=== PATIENT | female | born 1950 | race Caucasian/White ===

== ENCOUNTER 2021-02-18 16:06 | Inpatient (IN) | payer MEDICARE, SELFPAY ==
[2021-02-18] VITALS (7 sets, daily range): BP systolic 131–157; BP diastolic 58–90; PULSE 85–112; RESP 16–21; TEMP 35.6–36.8; O2SAT 97–100
--- NOTE | 2021-02-18 16:27 | ED.GENADUL_ITS ---
Discharge Plan Disposition Patient Disposition: [facility] INPATIENT Condition: Serious Discharge Details Clinical Impression: Renal failure, Acute UTI, Anemia Admit Date/Time: 02/18/21 19:04 Admit Provider: Jean Carlos Hancock Attending Provider: Jean Carlos Hancock Primary Care Provider: Unknown,Unknown ED Provider: Matthew Flor Medical Decision Making This is a 70-year-old female who presents concern for UTI, generalized weakness and dehydration. Per her daughter, she has had a significant weight loss over the past 6 months and declining steadily, cognitive decline over the past 10 days. Patient is a poor and vague historian and seems to downplay her symptoms. She presents with a pulse of 112 otherwise hemodynamically stable. Will obtain EKG, IV access, IV fluids, CBC, CMP, urinalysis and reassess. Initial laboratory values reveal a leukocytosis of 26.8 hemoglobin 7.7 hematocrit 26.9 platelet count 1115. Will initiate a septic work-up, also plan to do a rectal exam. Sodium 131 potassium 5.3. Patient is receiving 1 L IV fluid and plan to also p rovide a second liter as well. Anion gap of 17.5, creatinine 7.6 with a GFR of 5.29. Patient is able to make urine. Glucose of 129, lipase 135, TSH 3.57. Lactate of 1.4. Urine reveals large blood, large leuk esterase, greater than 50 red and white cells. Many bacteria. Urine culture and blood culture pending. Will give 1 g IV Rocephin Covid negative Unfortunately we have no baseline as to her laboratory values. Given her decline in cognition, weight loss, will obtain CT imaging of head, chest and abdomen, pelvis without contrast Dr. Hancock happened to be walking through the ER and I discussed the case with him prior to the evaluation being completed. He was agreeable to admission, saw the patient in the ER, and performed a rectal exam. He will write holding orders I did contact the patient's daughter on the phone to make her aware of her mother status, work-up thus far, and plan for admission. Both patient and daughter are comfortable with admission. After the patient was admitted, I received a call from virtual radiology regarding the CT imaging of her chest, abdomen, pelvis. Concern for possible neoplasm at the bladder level with associated obstructive change. Left lower lobe soft tissue mass with apparent loculated effusion or concern for primary lung neoplasm. These findings were discussed with Dr. Hancock. Imaging Data Radiologic Study: Attestation: I personally reviewed and interpreted this imaging study as follows: Imaging: X-Ray Radiologic Study #2: Attestation: I personally reviewed and interpreted this imaging study as follows: Imaging: CT Scan Radiologist's impression: PROCEDURE INFORMATION: Exam: CT Chest Without Contrast; Diagnostic Exam date and time: 02/18/2021 6:23 PM Age: 70 years old Clinical indication: Other: 50 lbs weight loss; Patient HX: UTI and weight loss TECHNIQUE: Imaging protocol: Diagnostic computed tomography of the chest without contrast. COMPARISON: No relevant prior studies available. FINDINGS: Lungs: There is a left lower lobe soft tissue mass seen medially measuring up to 5.2 cm. There is an associated left lung base pleural effusion with probable loculation. Mild COPD. Pleural spaces: See Lungs finding. Heart: Unremarkable. No cardiomegaly. No pericardial effusion. Aorta: Unremarkable. No aortic aneurysm. Other arteries: Mild atherosclerotic change noted in the vasculature. Lymph nodes: There appears to be mild left hilar adenopathy, not ideally delineated with unenhanced technique. Mild mediastinal adenopathy. Bones/joints: Unremarkable. No acute fracture. Soft tissues: Unremarkable. IMPRESSION: Left lower lobe soft tissue mass with apparent loculated effusion of concern for primary lung neoplasm. PROCEDURE INFORMATION: MITESH HORTA Preliminary Radiology Report SWING RIDE OPERATOR (QA) DISCREPANCY? If there is a discrepancy between the preliminary and final interpretation, please notify [employer] via [email or web address]. If you do not have access to our QA portal, call our QA team at [phone] CONFIDENTIALITY STATEMENT This report is intended only for the use of the referring physician, and only in accordance with law, If you received this in error, call [phone] Page 2 of 2 Exam: CT Abdomen And Pelvis Without Contrast Exam date and time: 02/18/2021 6:23 PM Age: 70 years old Clinical indication: Other: 50 lbs weight loss; Patient HX: UTI and weight loss TECHNIQUE: Imaging protocol: Computed tomography of the abdomen and pelvis without contrast. Radiation optimization: All CT scans at this facility use at least one of these dose optimization techniques: automated exposure control; mA and/or kV adjustment per patient size (includes targeted exams where dose is matched to clinical indication); or iterative reconstruction. COMPARISON: No relevant prior studies available. FINDINGS: Liver: Normal. No mass. Gallbladder and bile ducts: Gallbladder absent. Pancreas: Normal. No ductal dilation. Spleen: Normal. No splenomegaly. Adrenal glands: Normal. No mass. Kidneys and ureters: There is moderate right and moderate to severe left hydronephrosis and hydroureter. There is left periureteral edema and ureteral wall thickening. No obstructing calculi are seen. Stomach and bowel: Unremarkable. No obstruction. No mucosal thickening. Appendix: No evidence of appendicitis. Intraperitoneal space: Unremarkable. No free air. No significant fluid collection. Vasculature: There is moderate to severe atherosclerotic change present in the vasculature. Lymph nodes: Unremarkable. No enlarged lymph nodes. Urinary bladder: The bladder is decompressed however there are areas of irregular wall thickening particularly at the right bladder dome and right trigone. Reproductive: Unremarkable as visualized. Bones/joints: Unremarkable. No acute fracture. Soft tissues: Unremarkable. IMPRESSION: Bilateral obstructive nephroureteral changes, left worse than right with acute edema change involving the left collecting system. Concern for possible neoplasm at the bladder level with associated obstructive change. I discussed case findings with Matthew Flor 02/18/2021 9:01 PM EDT Lab Data Lab results reviewed: Yes I reviewed the patient's lab results. Labs: 02/18/21 18:30 Blood Blood Culture - Pending 02/18/21 18:20 Blood Blood Culture - Pending 02/18/21 16:45 Urine - Reflex from Ua Urine Culture - Pending Laboratory Tests Range/Units 02/18/21 02/18/21 02/18/21 16:45 17:12 17:12 WBC (4.4-10.8) 10^3/uL 26.86 H* RBC (3.93-5.22) 10^6/uL 4.02 Hgb (11.2-15.7) g/dL 7.7 L Hct (36.0-46.0) % 26.9 L MCV (80-95) fL 66.9 L MCH (27.0-33.0) pg 19.2 L MCHC (32.0-36.0) % 28.6 L RDW (11.7-14.6) % 20.8 H Plt Count (130-400) 10^3/uL 1115 H* MPV (8.0-11.0) fL 8.6 Reticulocyte % (Auto) (0.5-2.4) % Immature Gran % 1.1 Neutrophils % 83.0 Lymphocytes % 7.4 Monocytes % 6.1 Eosinophils % 2.1 Basophils % 0.3 Nucleated RBC % % 0 Absolute Neutrophils (1.2-6.7) 10^3/uL 22.29 H Absolute Lymphocytes (1.2-3.4) 10^3/uL 1.99 Absolute Monocytes (0.1-0.8) 10^3/uL 1.64 H Absolute Eosinophils (0.0-0.7) 10^3/uL 0.56 Absolute Basophils (0.0-0.2) 10^3/uL 0.08 RBC Morphology See Below Hypochromasia 2+ Anisocytosis 2+ Microcytosis 3+ VBG Lactate (0.6-1.4) mmol/L Sodium (136-145) mmol/L 131 L Potassium (3.5-5.1) mmol/L 5.3 H Chloride (98-107) mmol/L 100 Carbon Dioxide (21.0-32.0) mmol/L 13.5 L Anion Gap (3-11) mmol/L 17.5 H BUN (7-18) mg/dL 134 H* Creatinine (0.55-1.02) mg/dL 7.6 H* Estimated GFR/1.73 m2 (mL/min/1.73m2) 5.29 Glucose (74-106) mg/dL 129 H Calcium (8.5-10.1) mg/dL 9.2 Iron (50-170) ug/dL TIBC (250-450) ug/dL Transferrin % Sat (15-50) % Ferritin (8-252) ng/mL Total Bilirubin (0.2-1.0) mg/dL 0.2 AST (15-37) U/L 18 ALT (14-59) U/L 27 Alkaline Phosphatase (46-116) U/L 105 Total Protein (6.4-8.2) g/dL 10.5 H Albumin (3.4-5.0) g/dL 2.3 L Lipase (73-393) U/L 135 TSH (0.36-3.74) uIU/mL Urine Color (Yellow) Brown Urine Clarity (Clear) Cloudy Urine pH (5-8) 7.0 Ur Specific [place] (1.005-1.025) 1.025 Urine Protein (Negative) mg/dL >=300 H Urine Ketones (Negative) mg/dL Negative Urine Blood (Negative) Large H Urine Nitrite (Negative) Negative Urine Bilirubin (Negative) Negative Urine Urobilinogen (Up TO 0.2) EU/dL 0.2 Ur Leukocyte Esterase (Negative) Large H Urine RBC (0-2) HPF >50 H Urine WBC (0-5) HPF >50 H Ur Epithelial Cells Not Applicable Urine Crystals Not Applicable Urine Bacteria (Negative) HPF Many Urine Mucus Not Applicable Ur Culture Indicated? Yes Urine Glucose (Negative) mg/dL Negative COVID-19 Source SARS-CoV-2 (PCR) (Negative) Range/Units 02/18/21 02/18/21 02/18/21 17:12 17:12 17:12 WBC (4.4-10.8) 10^3/uL RBC (3.93-5.22) 10^6/uL Hgb (11.2-15.7) g/dL Hct (36.0-46.0) % MCV (80-95) fL MCH (27.0-33.0) pg MCHC (32.0-36.0) % RDW (11.7-14.6) % Plt Count (130-400) 10^3/uL MPV (8.0-11.0) fL Reticulocyte % (Auto) (0.5-2.4) % Immature Gran % Neutrophils % Lymphocytes % Monocytes % Eosinophils % Basophils % Nucleated RBC % % Absolute Neutrophils (1.2-6.7) 10^3/uL Absolute Lymphocytes (1.2-3.4) 10^3/uL Absolute Monocytes (0.1-0.8) 10^3/uL Absolute Eosinophils (0.0-0.7) 10^3/uL Absolute Basophils (0.0-0.2) 10^3/uL RBC Morphology Hypochromasia Anisocytosis Microcytosis VBG Lactate (0.6-1.4) mmol/L Sodium (136-145) mmol/L Potassium (3.5-5.1) mmol/L Chloride (98-107) mmol/L Carbon Dioxide (21.0-32.0) mmol/L Anion Gap (3-11) mmol/L BUN (7-18) mg/dL Creatinine (0.55-1.02) mg/dL Estimated GFR/1.73 m2 (mL/min/1.73m2) Glucose (74-106) mg/dL Calcium (8.5-10.1) mg/dL Iron (50-170) ug/dL 27 L TIBC (250-450) ug/dL 232 L Transferrin % Sat (15-50) % 12 L Ferritin (8-252) ng/mL 855 H Total Bilirubin (0.2-1.0) mg/dL AST (15-37) U/L ALT (14-59) U/L Alkaline Phosphatase (46-116) U/L Total Protein (6.4-8.2) g/dL Albumin (3.4-5.0) g/dL Lipase (73-393) U/L TSH (0.36-3.74) uIU/mL 3.57 Urine Color (Yellow) Urine Clarity (Clear) Urine pH (5-8) Ur Specific [place] (1.005-1.025) Urine Protein (Negative) mg/dL Urine Ketones (Negative) mg/dL Urine Blood (Negative) Urine Nitrite (Negative) Urine Bilirubin (Negative) Urine Urobilinogen (Up TO 0.2) EU/dL Ur Leukocyte Esterase (Negative) Urine RBC (0-2) HPF Urine WBC (0-5) HPF Ur Epithelial Cells Urine Crystals Urine Bacteria (Negative) HPF Urine Mucus Ur Culture Indicated? Urine Glucose (Negative) mg/dL COVID-19 Source SARS-CoV-2 (PCR) (Negative) Range/Units 02/18/21 02/18/21 02/18/21 17:12 18:00 18:20 WBC (4.4-10.8) 10^3/uL RBC (3.93-5.22) 10^6/uL Hgb (11.2-15.7) g/dL Hct (36.0-46.0) % MCV (80-95) fL MCH (27.0-33.0) pg MCHC (32.0-36.0) % RDW (11.7-14.6) % Plt Count (130-400) 10^3/uL MPV (8.0-11.0) fL Reticulocyte % (Auto) (0.5-2.4) % 1.1 Immature Gran % Neutrophils % Lymphocytes % Monocytes % Eosinophils % Basophils % Nucleated RBC % % Absolute Neutrophils (1.2-6.7) 10^3/uL Absolute Lymphocytes (1.2-3.4) 10^3/uL Absolute Monocytes (0.1-0.8) 10^3/uL Absolute Eosinophils (0.0-0.7) 10^3/uL Absolute Basophils (0.0-0.2) 10^3/uL RBC Morphology Hypochromasia Anisocytosis Microcytosis VBG Lactate (0.6-1.4) mmol/L 1.4 Sodium (136-145) mmol/L Potassium (3.5-5.1) mmol/L Chloride (98-107) mmol/L Carbon Dioxide (21.0-32.0) mmol/L Anion Gap (3-11) mmol/L BUN (7-18) mg/dL Creatinine (0.55-1.02) mg/dL Estimated GFR/1.73 m2 (mL/min/1.73m2) Glucose (74-106) mg/dL Calcium (8.5-10.1) mg/dL Iron (50-170) ug/dL TIBC (250-450) ug/dL Transferrin % Sat (15-50) % Ferritin (8-252) ng/mL Total Bilirubin (0.2-1.0) mg/dL AST (15-37) U/L ALT (14-59) U/L Alkaline Phosphatase (46-116) U/L Total Protein (6.4-8.2) g/dL Albumin (3.4-5.0) g/dL Lipase (73-393) U/L TSH (0.36-3.74) uIU/mL Urine Color (Yellow) Urine Clarity (Clear) Urine pH (5-8) Ur Specific [place] (1.005-1.025) Urine Protein (Negative) mg/dL Urine Ketones (Negative) mg/dL Urine Blood (Negative) Urine Nitrite (Negative) Urine Bilirubin (Negative) Urine Urobilinogen (Up TO 0.2) EU/dL Ur Leukocyte Esterase (Negative) Urine RBC (0-2) HPF Urine WBC (0-5) HPF Ur Epithelial Cells Urine Crystals Urine Bacteria (Negative) HPF Urine Mucus Ur Culture Indicated? Urine Glucose (Negative) mg/dL COVID-19 Source Nasal/Nares SARS-CoV-2 (PCR) (Negative) Negative ECG Data Attestation: I personally reviewed and interpreted this ECG (s) as follows: Interpretation: Please see official report by Dr. Johnson. Sinus rhythm, ventricular of 93. No STEMI. HPI General Mode of arrival: ambulatory . Date/Time Provider Initiated Documentation: 02/18/21 16:10 . Limitations to Documentation: no limitations . Information obtained by: patient and family . HPI Narrative: This is a 70-year-old female, presenting to the ER today complaining of generalized weakness, concern of UTI, feeling dehydrated. Unfortunately she is a very vague and poor historian, I was able to obtain HPI from the patient as well as her daughter Daisha at the phone number [phone]. Patient does not have a primary care provider and does not seek medical attention on a regular basis. She does not know when the last time she saw a provider was. After speaking with Daisha, it appears as though the patient has had a 40-50 pound weight loss over the past 6 months, she lives at home by herself, she has been fully vaccinated. She takes [id number] natural medications but is not prescribed any medications. For at least 2-3 months she has had increased fatigue, decreased appetite, not really taking oral intake, and Daisha believes that she has had 10 days of declining cognition. Patient denies any headache, visual changes, neck pain, chest pain, shortness of breath, abdominal pain, nausea, vomiting, back pain, black tarry stools or bright red blood in her stools. Patient states that she did take [id number] medication for her potential UTI but she continues to have symptoms. Related Data Allergies Allergy/AdvReac Type Severity Reaction Status Date / Time No Known Allergies Allergy Unverified 02/18/21 16:25 General Stated Complaint: Urinary GOOD: 3 Review of Systems Constitutional Constitutional: Reports fatigue, Denies fever(s) and Denies headache(s) Eyes Eyes: Denies change in vision ENT Ears, Nose, Mouth, and Throat: Denies headache(s) and Denies neck pain Cardiovascular Cardiovascular: Denies chest pain and Denies dyspnea Respiratory Respiratory: Denies cough and Denies dyspnea Gastrointestinal Gastrointestinal: Denies abdominal pain, Denies nausea and Denies vomiting Genitourinary Genitourinary: Reports dysuria Musculoskeletal Musculoskeletal: Denies back pain and Denies neck pain Integumentary/Breasts Skin/Breast: Denies rash Neurologic Neurologic: Denies headache(s) and Reports weakness (Generalized) Endocrine Endocrine: Reports fatigue Hematologic/Lymphatic Hematologic/Lymphatic: Denies easy bleeding and Denies easy bruising [facility] Social History Smoking/Tobacco Use Status: Former Tobacco Use Smoking risk assessment performed?: Yes Alcohol Intake: never Substance use type: does not use Do you feel safe at home: Yes Exam Const General: cooperative, comfortable and no acute distress Orientation: alert, awake and oriented x3 HENMT Head: normal to inspection, normocephalic and atraumatic Face and sinus: normal facial exam Mouth: moist mucous membranes abnormal (Dry) Eyes General: appearance normal, both eyes and all related structures Conjunctivae: conjunctivae normal Neck Neck: normal visual inspection, full ROM, no meningeal signs, trachea midline, supple and nontender Resp Effort & Inspection: normal respiratory effort and able to speak in complete sentences Auscultation: clear to auscultation bilaterally Cardio Rate: regular rate Rhythm: regular rhythm GI Inspection: normal to inspection Palpation: soft, not firm, no guarding, no pulsatile masses and nontender Auscultation: normal bowel sounds Back/Spine/Pelvis Back: no CVA tenderness and No back tenderness Skin General skin exam: no rashes or lesions noted Neuro General: patient alert, patient awake, moves all extremities and no focal motor deficits Cognition: normal cognition Speech: speech normal Motor: muscle tone normal throughout Sensory Exam: no sensory deficits noted Extrem General: normal to inspection, full ROM, capillary refill normal, no pedal edema and no calf tenderness Psych Appearance: grossly normal Mental Status: mental status grossly normal Course Vital Signs Vital signs: Vital Signs Temperature 36.8 C 02/18/21 16:19 Pulse 112 H 02/18/21 16:19 Respiratory Rate 18 02/18/21 16:19 Blood Pressure 133/90 02/18/21 16:19 Pulse Oximetry 99 02/18/21 16:19 Temperature 36.8 C 02/18/21 16:19 Temperature Source Temporal Artery Scan 02/18/21 16:19 Pulse 112 H 02/18/21 16:19 Respiratory Rate 18 02/18/21 16:19 Blood Pressure 133/90 02/18/21 16:19 Blood Pressure Position Sitting 02/18/21 16:19 Pulse Oximetry 99 02/18/21 16:19 Oxygen Delivery Method Room Air 02/18/21 16:19 Oxygen Flow Rate 0 02/18/21 16:19 Pain Level 0 02/18/21 16:19 Critical Care Time Critical Care Time Critical Care Time: Yes Total Critical Care Time: 35 Attestation: Upon my evaluation, this patient had a high probability of clinically significant, life-threatening deterioration due to their current medical conditions, which required my direct attention, intervention, and personal management. I have personally provided greater than 30 minutes of critical care time exclusive of the time spend on separately billable proced ures. Time includes obtaining a history, examining the patient, pulse oximetry, review of laboratory data, radiology results, discussion with consultants, arranging urgent treatment with development of a management plan, evaluation of patient's response to treatment, and monitoring for potential decompensation. Interventions were performed as documented above.
--- NOTE | 2021-02-18 16:45 | RT.EKG_ITS ---
APPROVED REPORT Exam: Resting ECG Reason for Exam: tachy Patient Location: E HR:93 bpm ECG Measurements Heart Rate 93 AXIS NE 128 P 61 QRSd 75 QRS 62 QT 341 T 55 QTc 424 Conclusion Sinus rhythm...normal P axis, V-rate 60- 99. Sinus. No STEMI. I have reviewed and interpreted ECG and agree with software generated interpretation.
[2021-02-18 16:53] LABS: Bilirubin Negative (Negative); Blood Large (Negative); Clarity Cloudy (Clear); Glucose Negative (Negative); Ketones Negative (Negative); Leukocyte Esterase Large (Negative); Nitrite Negative (Negative); Specific Gravity 1.025 (1.005-1.025); Urobilinogen 0.2 EU/dL (Up TO 0.2)
[2021-02-18] MEDS: Normal Saline 1,000 ML 1000 ML IV ×2 (17:03→19:13)
[2021-02-18 17:11] LABS: Bacteria Many HPF (Negative); C & S Indicated? Yes; RBC >50 HPF (0-2); WBC >50 HPF (0-5)
[2021-02-18 17:23] LABS: Abs Immature Grans 0.29 10^3/uL (0.0-0.06); Absolute Monocyte Count 1.64 10^3/uL (0.1-0.8); Basophils % 0.3; Eosinophils % 2.1; HCT 26.9 % (36.0-46.0); HGB 7.7 g/dL (11.2-15.7); Immature Grans % 1.1; Lymphocytes % 7.4; MCH 19.2 pg (27.0-33.0); MCHC 28.6 % (32.0-36.0); MCV 66.9 fL (80-95); MPV 8.6 fL (8.0-11.0); Monocytes % 6.1; Nucleated RBC 0 %; RBC 4.02 10^6/uL (3.93-5.22); RDW 20.8 % (11.7-14.6); RDW-SD 47.9 fL
[2021-02-18 17:28] LABS: Absolute Basophil Count 0.08 10^3/uL (0.0-0.2); Absolute Eosinophil Count 0.56 10^3/uL (0.0-0.7); Absolute Lymphocyte Count 1.99 10^3/uL (1.2-3.4); Absolute Neutrophil Count 22.29 10^3/uL (1.2-6.7); WBC 26.86 10^3/uL (4.4-10.8)
--- NOTE | 2021-02-18 17:30 | DI.CT_ITS ---
Exam(s) CT HEAD WO EXAM: CT HEAD WO CLINICAL HISTORY: ams. TECHNIQUE: Imaging Protocol: Axial computed tomography images with coronal and sagittal reformatted images were created and reviewed COMPARISON: No exams were available for comparison FINDINGS: There are no skull fractures nor fluid in the visualized paranasal sinuses. There is no evidence of intracranial hemorrhage, mass effect, or shift of midline structures. There are no extra-axial fluid collections. The ventricles are not enlarged or shifted and there is no blo od within the ventricular system nor within the basal cisterns. IMPRESSION: No acute intracranial findings on this noninfused CT scan of the brain. RADIATION DOSE DELIVERED: 607.37mGy.cm Total DLP DATA REPOSITORY: All CT scans at this facility are submitted to the National Radiology Data Registry (NRDR) Dose Index Registry (DIR) with the [employer] (ACR). RADIATION OPTIMIZATION: All CT scans at this facility use at least one of these dose optimization te chniques: automated exposure control; mA and/or kV adjustment per patient size (includes targeted exa ms where dose is matched to clinical indication); or iterative reconstruction.
[2021-02-18 17:43] LABS: ALT 27 U/L (14-59); AST 18 U/L (15-37); Albumin 2.3 g/dL (3.4-5.0); Alkaline Phosphatase 105 U/L (46-116); Anion Gap 17.5 mmol/L (3-11); BUN 134 mg/dL (7-18); Bilirubin, Total 0.2 mg/dL (0.2-1.0); CO2 13.5 mmol/L (21.0-32.0); Calcium 9.2 mg/dL (8.5-10.1); Chloride 100 mmol/L (98-107); Estimated GFR 5.29 (mL/min/1.73m2); Glucose 129 mg/dL (74-106); Lipase 135 U/L (73-393); Potassium 5.3 mmol/L (3.5-5.1); Sodium 131 mmol/L (136-145); Total Protein 10.5 g/dL (6.4-8.2)
[2021-02-18 17:44] LABS: CREATININE 7.6 mg/dL (0.55-1.02)
[2021-02-18 17:54] LABS: Anisocytosis 2+; Diff Comment Agrees w/ Instrument; Hypochromasia 2+; Microcytosis 3+; Platelet Count 1115 10^3/uL (130-400)
[2021-02-18 18:03] LABS: Source Nasal/Nares
--- NOTE | 2021-02-18 18:15 | DI.CT_ITS ---
Exam(s) CT CHEST/ABD/PEL WO EXAM: CT CHEST/ABD/PEL WO CLINICAL HISTORY: 50 lb weight loss. TECHNIQUE: Imaging Protocol: Axial computed tomography images with coronal and sagittal reformatted images were created and reviewed CONTRAST MATERIAL: Intravenous: none Oral: None COMPARISON: No exams were available for comparison FINDINGS: CHEST: LUNGS: There is a large neoplastic appearing mass in the left lower lobe measuring approximately 6 by 8 cm and there is an ipsilateral moderate size pleural effusion. The opposite-right lung is clear a nd there is no pleural effusion on the right side. MEDIASTINUM: Left hilar adenopathy contiguous with the left lower lobe mass. There does not appear t o be subcarinal adenopathy. No adenopathy in the anterior mediastinal fat. The opposite-right hilum appears unremarkable on this noninfused study. Visualized thyroid unremarkable. CARDIAC: Heart size is normal. There is no pericardial effusion.Caliber of the thoracic aorta is wit hin normal limits. OSSEOUS: No significant osseous lesions.. ABDOMEN: There is no ascites. LIVER: There are no obvious focal hepatic lesions evident of this noninfused study. GALLBLADDER/BILIARY: Not seen and may be surgically absent. CBD is not dilated. PANCREAS: No evidence of obvious pancreatic mass nor dilatation of the pancreatic duct. SPLEEN: Spleen size upper normal. No obvious intrasplenic lesions ADRENALS: There are no significant adrenal masses. KIDNEYS: There is bilateral hydronephrosis-moderate size-severe. Also hydroureter. No calculi evide nt within the lower ureters. 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 In addition, there is some mucosal thickening in the mid left ureter which may also b e uroepithelial neoplasm. Similar finding not seen in the dilated opposite-right ureter.. No solid renal masses. No intrarenal calculi evident. ABDOMINAL AORTA: Abdominal aorta is not enlarged. LYMPH NODES: There is no retroperitoneal nor para-aortic adenopathy. ABDOMINAL WALL/GI: No evidence of significant anterior abdominal wall nor inguinal hernia. No evidence of bowel obstruction. PELVIS: LYMPH NODES: There is no intrapelvic nor inguinal adenopathy. GI: No evidence of appendicitis.Sigmoid diverticuli. No diverticulitis. URINARY BLADDER: Abnormal mural thickening consistent with probable multifocal neoplasm. REPRODUCTIVE: Age appropriate OSSEOUS: No significant osseous lesions. IMPRESSION: 1. There is a large left lower lobe mass as described above, highly suspicious for lung neoplasm. Th ere is associated pleural effusion subjacent to the mass which is partially loculated. 2. 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 There is also thickening at the mid left ureteral wall, possibly also uroepithelial neoplasm at this level. 3. No ascites evident. RADIATION DOSE DELIVERED: 1,137.96mGy.cm Total DLP DATA REPOSITORY: All CT scans at this facility are submitted to the National Radiology Data Registry (NRDR) Dose Index Registry (DIR) with the [employer] (ACR). RADIATION OPTIMIZATION: All CT scans at this facility use at least one of these dose optimization te chniques: automated exposure control; mA and/or kV adjustment per patient size (includes targeted exa ms where dose is matched to clinical indication); or iterative reconstruction.
[2021-02-18 18:16] LABS: TSH (W/Ref FT4) 3.57 uIU/mL (0.36-3.74)
--- NOTE | 2021-02-18 18:44 | W.PM.HP.N ---
Date of service: 02/18/21 Time of Service: 18:44 Assessment and Plan Assessment and plan (1) Renal failure: Status: Chronic Assessment and plan: Multiplicity of issues, not clear how much is acute or chronic. The decreased HCO3 suggests that the renal failure may be more chronic and the normal lactate would tend to preclude alternative etiology (such as sepsis, in light of leukocytosis). Would cautiously treat with IVF (no signs of volume overload at present) and trend renal function. The leukocytosis and pyuria, and associated symptoms, most c/w UTI and will continue empiric Rocephin pending cultures. Microcytic anemia, with presumably reactive thrombocytosis, points to iron deficiency. GI blood loss suspected, but urinary is another potential source. Will start with iron studies, check stools and trend out. There may also be an element of ACD if renal failure proves to be more chronic, though of course this would not be expected to produce the microcytosis. 1. BRITNI: IVF, trend, bladder scan, consider renal U/S 2. Anemia: iron studies, stool guiacs, trend 3. Pyuria/leukocytosis, probable UTI: Rocephin, await cultures History of Present Illness History of Present Illness Chief Complaint: weaskness, dysuria, weight loss Narrative: 70 female, no recent encounters with healthcare system -- daughter reports some cognitive decline over past 6 months along with reported 50 pound weight loss. Also some unspecified period of dysuria (patient states 2 months). Daughter brought patient to ER today for evaluation. In ER findings of note for white count 25K, Hct 26 with MCV 69, platelet 1115; Na 131, K 5.3, HCO3 13, BUN 134, Creat 7.6; urine >50 WBC/RBC (casts not reported due to packed field) and many bacteria; TSH 3.5, lactate 1.4. Patient has received 1L IVF and 1 g Rocephin. I was asked to evaluate for admission. Patient states she actually feels entirely well at present. Denies back pain, CP, abd pain or melena. Review of Systems All systems reviewed & are unremarkable except as noted in HPI and below PFSH Social History Smoking/Tobacco Use Status: Former Tobacco Use Smoking risk assessment performed?: Yes Alcohol Intake: never Substance use type: does not use Do you feel safe at home: Yes Meds Allergies and Home Medications Allergies Allergy/AdvReac Type Severity Reaction Status Date / Time No Known Allergies Allergy Unverified 02/18/21 16:25 Exam Narrative Exam Narrative: 134/58, 86, 36.8, 19, 100% RA. HEENT atraumatic; neck supple; lungs cl;ear; heart RRR w/o evident M/R/G (exam limited by ambient noise); neg CVAT; abdomen soft and NT w/o HSM; rectal no stool, glove heme neg; extremities w/o edema; neuro Ox3, knows President, moves all 4s Results Labs Result diagrams: 02/18/21 17:12 02/18/21 17:12 Labs: Laboratory Results - last 24 hr 02/18/21 02/18/21 02/18/21 16:45 17:12 17:12 WBC 26.86 H* RBC 4.02 Hgb 7.7 L Hct 26.9 L MCV 66.9 L MCH 19.2 L MCHC 28.6 L RDW 20.8 H Plt Count 1115 H* MPV 8.6 Immature Gran % 1.1 Neutrophils % 83.0 Lymphocytes % 7.4 Monocytes % 6.1 Eosinophils % 2.1 Basophils % 0.3 Nucleated RBC % 0 Absolute Neutrophils 22.29 H Absolute Lymphocytes 1.99 Absolute Monocytes 1.64 H Absolute Eosinophils 0.56 Absolute Basophils 0.08 RBC Morphology See Below Hypochromasia 2+ Anisocytosis 2+ Microcytosis 3+ Sodium 131 L Potassium 5.3 H Chloride 100 Carbon Dioxide 13.5 L Anion Gap 17.5 H BUN 134 H* Creatinine 7.6 H* Estimated GFR/1.73 m2 5.29 Glucose 129 H Calcium 9.2 Total Bilirubin 0.2 AST 18 ALT 27 Alkaline Phosphatase 105 Total Protein 10.5 H Albumin 2.3 L Lipase 135 TSH Urine Color Brown Urine Clarity Cloudy Urine pH 7.0 Ur Specific [place] 1.025 Urine Protein >=300 H Urine Ketones Negative Urine Blood Large H Urine Nitrite Negative Urine Bilirubin Negative Urine Urobilinogen 0.2 Ur Leukocyte Esterase Large H Urine RBC >50 H Urine WBC >50 H Ur Epithelial Cells Not Applicable Urine Crystals Not Applicable Urine Bacteria Many Urine Mucus Not Applicable Ur Culture Indicated? Yes Urine Glucose Negative COVID-19 Source 02/18/21 02/18/21 17:12 18:00 WBC RBC Hgb Hct MCV MCH MCHC RDW Plt Count MPV Immature Gran % Neutrophils % Lymphocytes % Monocytes % Eosinophils % Basophils % Nucleated RBC % Absolute Neutrophils Absolute Lymphocytes Absolute Monocytes Absolute Eosinophils Absolute Basophils RBC Morphology Hypochromasia Anisocytosis Microcytosis Sodium Potassium Chloride Carbon Dioxide Anion Gap BUN Creatinine Estimated GFR/1.73 m2 Glucose Calcium Total Bilirubin AST ALT Alkaline Phosphatase Total Protein Albumin Lipase TSH 3.57 Urine Color Urine Clarity Urine pH Ur Specific [place] Urine Protein Urine Ketones Urine Blood Urine Nitrite Urine Bilirubin Urine Urobilinogen Ur Leukocyte Esterase Urine RBC Urine WBC Ur Epithelial Cells Urine Crystals Urine Bacteria Urine Mucus Ur Culture Indicated? Urine Glucose COVID-19 Source Nasal/Nares Last Vital Signs Temp 36.8 C 02/18/21 16:19 Pulse 86 02/18/21 18:07 Resp 19 02/18/21 18:07 BP 134/58 L 02/18/21 18:07 Pulse Ox 100 02/18/21 17:57
[2021-02-18 18:45] LABS: Lactate 1.4 mmol/L (0.6-1.4)
[2021-02-18 19:03] LABS: COVID-19 PCR Negative (Negative)
[2021-02-18] MEDS: cefTRIAXone 1 GM/50 ML BAG IVPB (19:14)
[2021-02-18 19:38] LABS: Reticulocyte 1.1 % (0.5-2.4)
[2021-02-18 19:40] LABS: Iron 27 ug/dL (50-170); Total Iron Binding Capacity 232 ug/dL (250-450); Transferrin Sat 12 % (15-50)
--- NOTE | 2021-02-18 19:52 | DI.VRAD_ITS ---
PROCEDURE INFORMATION: Exam: CT Head Without Contrast Exam date and time: 02/18/2021 5:31 PM Age: 70 years old Clinical indication: Other: AMS TECHNIQUE: Imaging protocol: Computed tomography of the head without contrast. Radiation optimization: All CT scans at this facility use at least one of these dose optimization techniques: automated exposure control; mA and/or kV adjustment per patient size (includes targeted exams where dose is matched to clinical indication); or iterative reconstruction. COMPARISON: No relevant prior studies available. FINDINGS: Brain: No acute intracranial hemorrhage, mass-effect, midline shift, or extra-axial collection is seen. The lord white matter differentiation appears preserved. Cerebral ventricles: The ventricular system and basilar cisterns appear appropriate in size and configuration. Paranasal sinuses: The visualized paranasal sinuses appear well-aerated. Mastoid air cells: The mastoid air cells appear well-aerated. Auditory system: The middle ear cavities appear clear. Bones/joints: The bony calvarium appears intact. No depressed skull fracture is seen. Soft tissues: No significant scalp lesion is seen. IMPRESSION: No acute intracranial abnormality seen. Dictated and Authenticated by: Mo Neville MD. Ordering:JESSICA Castro MD
[2021-02-18 19:54] LABS: Ferritin 855 ng/mL (8-252)
--- NOTE | 2021-02-18 21:02 | DI.VRAD_ITS ---
PROCEDURE INFORMATION: Exam: CT Chest Without Contrast; Diagnostic Exam date and time: 02/18/2021 6:23 PM Age: 70 years old Clinical indication: Other: 50 lbs weight loss; Patient HX: UTI and weight loss TECHNIQUE: Imaging protocol: Diagnostic computed tomography of the chest without contrast. COMPARISON: No relevant prior studies available. FINDINGS: Lungs: There is a left lower lobe soft tissue mass seen medially measuring up to 5.2 cm. There is an associated left lung base pleural effusion with probable loculation. Mild COPD. Pleural spaces: See Lungs finding. Heart: Unremarkable. No cardiomegaly. No pericardial effusion. Aorta: Unremarkable. No aortic aneurysm. Other arteries: Mild atherosclerotic change noted in the vasculature. Lymph nodes: There appears to be mild left hilar adenopathy, not ideally delineated with unenhanced technique. Mild mediastinal adenopathy. Bones/joints: Unremarkable. No acute fracture. Soft tissues: Unremarkable. IMPRESSION: Left lower lobe soft tissue mass with apparent loculated effusion of concern for primary lung neoplasm. PROCEDURE INFORMATION: Exam: CT Abdomen And Pelvis Without Contrast Exam date and time: 02/18/2021 6:23 PM Age: 70 years old Clinical indication: Other: 50 lbs weight loss; Patient HX: UTI and weight loss TECHNIQUE: Imaging protocol: Computed tomography of the abdomen and pelvis without contrast. Radiation optimization: All CT scans at this facility use at least one of these dose optimization techniques: automated exposure control; mA and/or kV adjustment per patient size (includes targeted exams where dose is matched to clinical indication); or iterative reconstruction. COMPARISON: No relevant prior studies available. FINDINGS: Liver: Normal. No mass. Gallbladder and bile ducts: Gallbladder absent. Pancreas: Normal. No ductal dilation. Spleen: Normal. No splenomegaly. Adrenal glands: Normal. No mass. Kidneys and ureters: There is moderate right and moderate to severe left hydronephrosis and hydroureter. There is left periureteral edema and ureteral wall thickening. No obstructing calculi are seen. Stomach and bowel: Unremarkable. No obstruction. No mucosal thickening. Appendix: No evidence of appendicitis. Intraperitoneal space: Unremarkable. No free air. No significant fluid collection. Vasculature: There is moderate to severe atherosclerotic change present in the vasculature. Lymph nodes: Unremarkable. No enlarged lymph nodes. Urinary bladder: The bladder is decompressed however there are areas of irregular wall thickening particularly at the right bladder dome and right trigone. Reproductive: Unremarkable as visualized. Bones/joints: Unremarkable. No acute fracture. Soft tissues: Unremarkable. IMPRESSION: Bilateral obstructive nephroureteral changes, left worse than right with acute edema change involving the left collecting system. Concern for possible neoplasm at the bladder level with associated obstructive change. I discussed case findings with Matthew Flor 02/18/2021 9:01 PM EDT. Dictated and Authenticated by: Jackie Hutson MD. Ordering:JESSICA Castro MD
[2021-02-18] MEDS: Normal Saline 1,000 ML 100 ML IV (21:56)
[2021-02-19] VITALS (10 sets, daily range): BP systolic 106–126; BP diastolic 60–85; PULSE 84–97; RESP 16–20; TEMP 35.9–36.5; O2SAT 97–100; BMI 25.0
[2021-02-19 07:11] LABS: MCH 19.8 pg (27.0-33.0); MCHC 28.6 % (32.0-36.0); MCV 69.2 fL (80-95); MPV 8.6 fL (8.0-11.0); RBC 3.18 10^6/uL (3.93-5.22); RDW 20.9 % (11.7-14.6); RDW-SD 50.9 fL; WBC 22.79 10^3/uL (4.4-10.8)
[2021-02-19 07:28] LABS: HGB 6.3 g/dL (11.2-15.7); Platelet Count 880 10^3/uL (130-400)
[2021-02-19 08:38] LABS: Anion Gap 18.6 mmol/L (3-11); CO2 9.4 mmol/L (21.0-32.0); Calcium 7.9 mg/dL (8.5-10.1); Chloride 109 mmol/L (98-107); Estimated GFR 6.23 (mL/min/1.73m2); Folate 7.7 ng/mL (8.6-20.0); Glucose 81 mg/dL (74-106); Potassium 5.9 mmol/L (3.5-5.1); Sodium 137 mmol/L (136-145); Vitamin B12 619 pg/mL (193-986)
[2021-02-19 08:40] LABS: BUN 123 mg/dL (7-18); CREATININE 6.6 mg/dL (0.55-1.02)
--- NOTE | 2021-02-19 08:51 | W.PULMCON ---
General Date Of Service Date of service: 02/19/21 Time of Service: 08:00 Reason for Consult: Pulmonary Mass Assessment and Plan Assessment and plan (1) Renal failure: Status: Chronic Qualifiers: Renal failure chronicity: unspecified chronicity Qualified Code(s): N19 - Unspecified kidney failure (2) Acute UTI: Status: Acute (3) Bladder mass: Status: Acute (4) Airway obstruction: Status: Acute (5) Lung mass: Status: Acute Assessment and plan: A 70-year-old female who has a smoking history who presents for fatigue, weakness, and weight loss found to be in renal failure with obstructive uropathy due to a large bladder mass as well as a large left lower lobe pulmonary. She has significant renal failure but I suspect this is subacute to some degree of chronic given her lack of encephalopathy if extremely elevated BUN. Additionally her symptoms have been present for 6 months and acutely worsening for the last 2 months. She does have a smoking history which increases her risk of malignancy. Bladder cancer and colon cancer. It is relatively uncommon for primary lung cancer to metastasize to the bladder, although not unheard of. It seems more likely a primary bladder cancer with metastasis to the lung. She urological intervention due to her obstructive uropathy and obstructive nephropathy so I will try to coordinate with Dr. Arzate from urology about potential biopsying of the large bladder mass during his probable stent placement. Ideally I would perform a bronchoscopy on her however with her sepsis due to her UTI and renal failure she is not a candidate for the procedure at this time. Her left lower lobe mass is obstructing her airway causing complete collapse of the left lower lobe. If she was in respiratory failure, I would bronch her to see if suctioning mucus could re-inflate her LLL, however she is on room air and is asymptomatic. There is also a complicated effusion on the left present and most likely pleural involvement. Lung mass - not appropriate for bronchoscopy at this time - suspect bladder mass as primary - would suggest bladder mass biopsy when having procedure of obstruction if urology deems this appropriate - recommend brain MRI Airway obstruction - recommend incentive spirometry - recommend VibraPEP History of Present Illness Narrative: This is a 70 yo female who presents with weakness, fatigue, decreased urine output and weight loss over the last 6 months. She was evaluated in the ED and found to be in renal failure. She has a UTI and on CT imaging was found to have an obstructive uropathy with significant hydroureter, hydronephrosis and a large bladder mass. She was also found to have a large left lower lobe pulmonary mass, for which I am consulted. The patient states she is feeling ok. She is hungry, but I explained that she cannot eat this morning until after urology sees he as she likely will need a procedure. She endorses a 35 pack year smoking history, but quit 5 years ago. She is unsure how much weight she has lost, she does not believe it is much but her daughter tells her that it has been alot. She also tells me that she has had a decrease in her urine output over the last 6 months when asked. She wears a depends at night as sometimes she does not feel as though she has to urinated but does. She denies significant shortness of breath but does say she intermittently gets short of breath with exertion. No hemoptysis, no chest pain. Review of Systems All systems reviewed & are unremarkable except as noted in HPI and below PFSH Social History Smoking/Tobacco Use Status: Former Tobacco Use Smoking risk assessment performed?: Yes Alcohol Intake: never Substance use type: does not use Do you feel safe at home: Yes Visit Medication and Allergies Active Medications Generic Name Dose Route Start Last Admin Trade Name Freq PRN Reason Stop Dose Admin Acetaminophen 650 mg 02/19/21 08:00 Acetaminophen 325 Mg Tab PO 02/19/21 23:59 TODAY THOMAS Dimethicone/Zinc Oxide 0 gm 02/18/21 19:04 Dandre Protect Cream 142 Gm Tube TP PRN PRN Diphenhydramine HCl 0 mg 02/19/21 08:00 Diphenhydramine 25 Mg Cap PO 02/19/21 23:59 TODAY THOMAS Ceftriaxone Sodium/Dextrose 1 gm in 50 mls @ 100 mls/hr 02/19/21 18:00 Rocephin IVPB Q24H THOMAS Sodium Chloride 1,000 mls @ 100 mls/hr 02/18/21 19:15 02/18/21 21:56 Saline 1000ml Bag IV 100 mls/hr INFUSION THOMAS Administration IV Miscellaneous Supplies 1 each 02/18/21 17:00 Iv Access IV DIRECTED THOMAS Allergies No Known Allergies Allergy (Unverified 02/18/21 16:25) Exam Const General: no acute distress Nutritional Appearance: well nourished [facility] Head: normocephalic Ears: external ears normal and no periauricular adenopathy General nose exam: nasal mucous membranes and turbinates normal Face and sinus: sinuses nontender Mouth: oropharynx normal and moist mucous membranes Teeth and gingiva: dentition normal Eyes General: appearance normal, both eyes and all related structures Pupils: PERRL Neck Neck: normal visual inspection and no lymphadenopathy Chest Chest: normal inspection of the chest Resp Effort & Inspection: normal respiratory effort Auscultation: clear to auscultation bilaterally, diminished lung sounds on the left in the lower lung bhatia, no rales, no rhonchi and no wheezes Cardio Rate: regular rate Rhythm: regular rhythm Heart Sounds: S1 normal, S2 normal and no murmurs Pulses: radial pulses present bilaterally GI Inspection: normal to inspection Palpation: soft Skin General skin exam: no rashes or lesions noted Neuro General: patient alert, patient awake and patient oriented x3 Extrem General: no clubbing, cyanosis or edema Psych Mental Status: mental status grossly normal Affect: normal affect Attitude: cooperative Results Last Vital Signs Temp 35.6 C L 02/18/21 21:26 Pulse 85 02/18/21 21:26 Resp 16 02/18/21 21:26 BP 131/73 02/18/21 21:26 Pulse Ox 99 02/18/21 21:26 Labs Result diagrams: 02/19/21 06:20 02/19/21 06:20 Labs: Laboratory Results - last 24 hr 02/18/21 02/18/21 02/18/21 16:45 17:12 17:12 WBC 26.86 H* RBC 4.02 Hgb 7.7 L Hct 26.9 L MCV 66.9 L MCH 19.2 L MCHC 28.6 L RDW 20.8 H Plt Count 1115 H* MPV 8.6 Reticulocyte % (Auto) Immature Gran % 1.1 Neutrophils % 83.0 Lymphocytes % 7.4 Monocytes % 6.1 Eosinophils % 2.1 Basophils % 0.3 Nucleated RBC % 0 Absolute Neutrophils 22.29 H Absolute Lymphocytes 1.99 Absolute Monocytes 1.64 H Absolute Eosinophils 0.56 Absolute Basophils 0.08 RBC Morphology See Below Hypochromasia 2+ Anisocytosis 2+ Microcytosis 3+ VBG Lactate Sodium 131 L Potassium 5.3 H Chloride 100 Carbon Dioxide 13.5 L Anion Gap 17.5 H BUN 134 H* Creatinine 7.6 H* Estimated GFR/1.73 m2 5.29 Glucose 129 H Calcium 9.2 Iron TIBC Transferrin % Sat Ferritin Total Bilirubin 0.2 AST 18 ALT 27 Alkaline Phosphatase 105 Total Protein 10.5 H Albumin 2.3 L Lipase 135 Vitamin B12 Folate TSH Urine Color Brown Urine Clarity Cloudy Urine pH 7.0 Ur Specific [place] 1.025 Urine Protein >=300 H Urine Ketones Negative Urine Blood Large H Urine Nitrite Negative Urine Bilirubin Negative Urine Urobilinogen 0.2 Ur Leukocyte Esterase Large H Urine RBC >50 H Urine WBC >50 H Ur Epithelial Cells Not Applicable Urine Crystals Not Applicable Urine Bacteria Many Urine Mucus Not Applicable Ur Culture Indicated? Yes Urine Glucose Negative COVID-19 Source SARS-CoV-2 (PCR) Crossmatch 02/18/21 02/18/21 02/18/21 17:12 17:12 17:12 WBC RBC Hgb Hct MCV MCH MCHC RDW Plt Count MPV Reticulocyte % (Auto) Immature Gran % Neutrophils % Lymphocytes % Monocytes % Eosinophils % Basophils % Nucleated RBC % Absolute Neutrophils Absolute Lymphocytes Absolute Monocytes Absolute Eosinophils Absolute Basophils RBC Morphology Hypochromasia Anisocytosis Microcytosis VBG Lactate Sodium Potassium Chloride Carbon Dioxide Anion Gap BUN Creatinine Estimated GFR/1.73 m2 Glucose Calcium Iron 27 L TIBC 232 L Transferrin % Sat 12 L Ferritin 855 H Total Bilirubin AST ALT Alkaline Phosphatase Total Protein Albumin Lipase Vitamin B12 Folate TSH 3.57 Urine Color Urine Clarity Urine pH Ur Specific [place] Urine Protein Urine Ketones Urine Blood Urine Nitrite Urine Bilirubin Urine Urobilinogen Ur Leukocyte Esterase Urine RBC Urine WBC Ur Epithelial Cells Urine Crystals Urine Bacteria Urine Mucus Ur Culture Indicated? Urine Glucose COVID-19 Source SARS-CoV-2 (PCR) Crossmatch 02/18/21 02/18/21 02/18/21 17:12 18:00 18:20 WBC RBC Hgb Hct MCV MCH MCHC RDW Plt Count MPV Reticulocyte % (Auto) 1.1 Immature Gran % Neutrophils % Lymphocytes % Monocytes % Eosinophils % Basophils % Nucleated RBC % Absolute Neutrophils Absolute Lymphocytes Absolute Monocytes Absolute Eosinophils Absolute Basophils RBC Morphology Hypochromasia Anisocytosis Microcytosis VBG Lactate 1.4 Sodium Potassium Chloride Carbon Dioxide Anion Gap BUN Creatinine Estimated GFR/1.73 m2 Glucose Calcium Iron TIBC Transferrin % Sat Ferritin Total Bilirubin AST ALT Alkaline Phosphatase Total Protein Albumin Lipase Vitamin B12 Folate TSH Urine Color Urine Clarity Urine pH Ur Specific [place] Urine Protein Urine Ketones Urine Blood Urine Nitrite Urine Bilirubin Urine Urobilinogen Ur Leukocyte Esterase Urine RBC Urine WBC Ur Epithelial Cells Urine Crystals Urine Bacteria Urine Mucus Ur Culture Indicated? Urine Glucose COVID-19 Source Nasal/Nares SARS-CoV-2 (PCR) Negative Crossmatch 02/19/21 02/19/21 02/19/21 06:20 06:20 07:48 WBC 22.79 H RBC 3.18 L Hgb 6.3 L* Hct 22.0 L MCV 69.2 L MCH 19.8 L MCHC 28.6 L RDW 20.9 H Plt Count 880 H* MPV 8.6 Reticulocyte % (Auto) Immature Gran % Neutrophils % Lymphocytes % Monocytes % Eosinophils % Basophils % Nucleated RBC % Absolute Neutrophils Absolute Lymphocytes Absolute Monocytes Absolute Eosinophils Absolute Basophils RBC Morphology Hypochromasia Anisocytosis Microcytosis VBG Lactate Sodium 137 Potassium 5.9 H Chloride 109 H Carbon Dioxide 9.4 L Anion Gap 18.6 H BUN 123 H* Creatinine 6.6 H* Estimated GFR/1.73 m2 6.23 Glucose 81 Calcium 7.9 L Iron TIBC Transferrin % Sat Ferritin Total Bilirubin AST ALT Alkaline Phosphatase Total Protein Albumin Lipase Vitamin B12 619 Folate 7.7 L TSH Urine Color Urine Clarity Urine pH Ur Specific [place] Urine Protein Urine Ketones Urine Blood Urine Nitrite Urine Bilirubin Urine Urobilinogen Ur Leukocyte Esterase Urine RBC Urine WBC Ur Epithelial Cells Urine Crystals Urine Bacteria Urine Mucus Ur Culture Indicated? Urine Glucose COVID-19 Source SARS-CoV-2 (PCR) Crossmatch See Detail
--- NOTE | 2021-02-19 09:15 | RT.EKG_ITS ---
APPROVED REPORT Exam: Resting ECG Reason for Exam: hyperkalemia Patient Location: I HR:97 bpm ECG Measurements Heart Rate 97 AXIS HI 125 P 73 QRSd 74 QRS 60 QT 353 T 56 QTc 450 Conclusion Sinus rhythm...normal P axis, V-rate 60- 99
--- NOTE | 2021-02-19 10:51 | NS.NUTBLAN_ITS ---
Date of service: 02/19/21 Time of Service: 10:52 Nutritional Consult ASSESSMENT: Ms. Bullard is admitted with findings of a lung mass, bladder mass, and renal failure. She is currently NPO. She 165 cm and 68.1 kg. Her BMI is 25.0 kg/m2 which is WNL. She has lost 50 lbs in the past 6 months which is a 25% weight loss which is significant. She has not been meeting her caloric needs for greater than a week. Estimated energy needs are 1450 kcal/day (REE x 1.2) Estimated protein needs are 68 g to 82 g/day (1.0 to 1.2 g/kg/day) Estimated fluid needs are 1450 ml/day (1 ml/kcal provided/day) NUTRITIONAL DIAGNOSIS: Moderate malnutrition in the setting of acute illness related to poor PO intake as evidenced by 25% weight loss in six months and eating less than 75% of her caloric needs for greater than one week.. INTERVENTION: Ms. Bullard is currently NPO. If prolonged NPO is anticipated or if she is unable to take adequate calories in the next 5 days, would consider nutri tion support (enteral feed) if it would be consistent with her wishes to prevent further decline in her nutritional status. MONITORING AND EVALUATION: Will continue to monitor weight, PO, nutrition parameters. Will evaluate nutrition care plan ongoing and adjust as needed. Time Spent in Nutritional Counseling and Treatment: 0
--- NOTE | 2021-02-19 11:01 | INITIAL_ITS ---
- If Service Date Differs Date of service: 02/19/21 Time of Service: 11:01 Care Management Initial Assess REASON FOR HOSPITALIZATION:: Renal failure, Acute UTI, Anemia PAST MEDICAL HISTORY/PAST SURGICAL HISTORY:: Renal Failure (unspecified chronicity). Bladder Mass-02/18/2021. Lung Mass-02/18/2021. Former Smoker PREVIOUS FUNCTIONAL STATUS/SOCIAL/FAMILY SUPPORTS:: Barb lives alone in [facility] with her dog. Her daughter Daisha is supportive and lives 12 minutes from her home. Daisha is caring for her pet while Barb is in the hospital. Barb drives and is independent at baseline. CURRENT FUNCTIONAL STATUS:: Barb was lying in bed, alert and oriented X 3. She was pleasant and easily engaged in conversation. She is very passionate about her independence and enjoys living at her home in [place]. She shared with CM that her home is convenient and private and she would not be open to VNA services at this point in her life. Barb reported that she enjoys walking with her dog and spending time at [place] on [place]. Barb shared that she has a sister with COPD and a brother with liver cancer and that she really doesn't have the time to be sick. Barb met with Pulmonology earlier this morning and is anticipating having a urological intervention later today. ADVANCE DIRECTIVES:: None, CM gave patient a copy. Has patient been provided with info about the portal/API?: Yes Did the patient sign up for the portal?: No CODE STATUS:: Full Code INSURANCE COVERAGE / FINANCIAL ISSUES:: Medicare CURRENT HOME/COMMUNITY SERVICES/EQUIPMENT:: None PRIMARY CARE PHYSICIAN:: None, no routine care POTENTIAL DISCHARGE NEEDS:: PCP attachment, Follow up appointments. PATIENT/FAMILY EDUCATION NEEDS:: Review discharge instructions and plan to follow up with community providers and plan of care as prescribed. Ask me three. TRANSPORTATION:: Via private vehicle with daughter Daisha. PLAN:: Anticipate Barb will be discharged home with no new VNA services when medically cleared by provider. She will transport via private vehicle with family and follow up with community providers and discharge plan of care as prescribed.
--- NOTE | 2021-02-19 12:28 | W.ANESPRE ---
General Info Date of Service Date Performed: 02/19/21 Height: 5 ft 5 in Weight: 68.1 kg Body Mass Index (BMI): 25.0 Surgical Procedure: Operation Date: 02/19/21 12:40 Proposed Procedures Side Surgeon p Cystoscopy with Bladder Biopsy, bilat retrograde insert stents Leandro Arzate MD Meds Allergies and Home Medications Allergies Allergy/AdvReac Type Severity Reaction Status Date / Time No Known Allergies Allergy Unverified 02/18/21 16:25 Current Visit Medications: Current Medications Generic Name Dose Route Start Last Admin Trade Name Freq PRN Reason Stop Dose Admin Acetaminophen 650 mg 02/19/21 08:00 Acetaminophen 325 Mg Tab PO 02/19/21 23:59 TODAY THOMAS Dimethicone/Zinc Oxide 0 gm 02/18/21 19:04 Dandre Protect Cream 142 Gm Tube TP PRN PRN Diphenhydramine HCl 0 mg 02/19/21 08:00 Diphenhydramine 25 Mg Cap PO 02/19/21 23:59 TODAY THOMAS Sodium Chloride 1,000 mls @ 100 mls/hr 02/18/21 19:15 02/18/21 21:56 Saline 1000ml Bag IV 100 mls/hr INFUSION THOMAS Administration Piperacillin Sod/Tazobactam 50 mls @ 100 mls/hr 02/19/21 10:00 Sod 2.25 gm/ Sodium Chloride IVPB Q8H THOMAS Protocol IV Miscellaneous Supplies 1 each 02/18/21 17:00 Iv Access IV DIRECTED THOMAS PFSH Active Problems Active Problems: Problem Status Onset Code Airway obstruction J98.8 Lung mass R91.8 Bladder mass N32.89 Acute UTI N39.0 Anemia D64.9 Renal failure N19 Medical History Medical History (Updated 02/19/21 @ 12:48 by Leandro Arzate MD) Bilateral hydronephrosis Tobacco Smoking/Tobacco Use Status: Former Tobacco Use Alcohol Alcohol Intake: never Substance Use Substance use type: does not use Vital Signs and Lab Results Vital Signs Most Recent Vital Signs in EMR: Most Recent Vital Signs Temp Pulse Resp BP Pulse Ox 36.3 C L 91 H 18 108/60 100 02/19/21 12:22 02/19/21 12:22 02/19/21 12:22 02/19/21 12:22 02/19/21 12:22 Lab Results Result Diagrams: 02/19/21 06:20 02/19/21 06:20 Blood Type / Crossmatch: Patient ABO/Rh A Positive 02/19/21 06:20 02/19/21 Antibody Screen NEGATIVE 02/19/21 06:20 02/19/21 Crossmatch See Detail 02/19/21 06:20 02/19/21 Complete Blood Count: White Blood Count 22.79 10^3/uL (4.4-10.8) H 02/19/21 06:20 02/19/21 Red Blood Count 3.18 10^6/uL (3.93-5.22) L 02/19/21 06:20 02/19/21 Hemoglobin 6.3 g/dL (11.2-15.7) L* 02/19/21 06:20 02/19/21 Hematocrit 22.0 % (36.0-46.0) L 02/19/21 06:20 02/19/21 Platelet Count 880 10^3/uL (130-400) H* 02/19/21 06:20 02/19/21 Venous Blood Lactate 1.4 mmol/L (0.6-1.4) 02/18/21 18:20 02/18/21 Complete Metabolic Panel: Sodium Level 137 mmol/L (136-145) 02/19/21 06:20 02/19/21 Potassium Level 5.9 mmol/L (3.5-5.1) H 02/19/21 06:20 02/19/21 Chloride Level 109 mmol/L (98-107) H 02/19/21 06:20 02/19/21 Carbon Dioxide Level 9.4 mmol/L (21.0-32.0) L 02/19/21 06:20 02/19/21 Blood Urea Nitrogen 123 mg/dL (7-18) H* 02/19/21 06:20 02/19/21 Creatinine 6.6 mg/dL (0.55-1.02) H* 02/19/21 06:20 02/19/21 Estimated GFR/1.73 m2 6.23 (mL/min/1.73m2) 02/19/21 06:20 02/19/21 Calcium Level 7.9 mg/dL (8.5-10.1) L 02/19/21 06:20 02/19/21 Albumin 2.3 g/dL (3.4-5.0) L 02/18/21 17:12 02/18/21 Glucose Level 81 mg/dL (74-106) 02/19/21 06:20 02/19/21 Liver Function Panel: Alanine Aminotransferase (ALT/SGPT) 27 U/L (14-59) 02/18/21 17:12 02/18/21 Aspartate Amino Transf (AST/SGOT) 18 U/L (15-37) 02/18/21 17:12 02/18/21 Coagulation Panel: No Data to Display Cardiac Panel: No Data to Display Arterial Blood Gas: No Data to Display Venous Blood Gas: No Data to Display Pancreas Panel: Lipase 135 U/L (73-393) 02/18/21 17:12 02/18/21 Thyroid Panel: Thyroid Stimulating Hormone (TSH) 3.57 uIU/mL (0.36-3.74) 02/18/21 17:12 02/18/21 Infectious Disease: Coronavirus (COVID-19)(PCR) Negative (Negative) 02/18/21 18:00 02/18/21 Coronavirus 2019 Source Nasal/Nares 02/18/21 18:00 02/18/21 Blood Cultures: No Data to Display Toxicology Panel: No Data to Display Imaging and Studies Imaging and Studies EKG Summary: 02/19/2021: Exam: Resting ECG Reason for Exam: hyperkalemia Patient Location: I HR:97 bpm ECG Measurements Heart Rate 97 AXIS IA 125 P 73 QRSd 74 QRS 60 QT 353 T56 QTc 450 Conclusion Sinus rhythm...normal P axis, V-rate 60- 99 Anesthesia Assessment and Plan Anesthesia History Personal History: No History of Anesthesia Complications Family History: No Family History of Anesthesia Complications Exercise Tolerance Exercise Tolerance: Metabolic Equivalents<4 Pertinent Negatives Pertinent Negatives: No Major Cardiovascular Symptoms or Complaints Cardiac & Pulmonary Exam Cardiac Exam: Normal S1/S2 Heart Sounds Pulmonary Exam: Other (Diminished on Left) Airway Exam Known Difficult Airway: No Mallampati Class: 2 Mouth Opening: Narrow (< 3cm) Thyromental Distance: Greater than 3 cm Neck Range of Motion: Full ROM Neck Circumference: Normal Teeth Condition: Loose or Chipped (Poor dentition) ASA Classification ASA Score: ASA 4 Emergency Case?: Yes NPO Status NPO Status: NPO Clears >2 hours, Solids >8 hours Anesthesia Plan Resuscitation Status: Full Code Anesthesia Technique: MAC Anesthesia Airway Planned: Natural Airway Monitors Used: Standard Monitors Preoperative Comments:: Discussed need for emergent procedure and risk of intubation if required. Patient wishes to proceed with procedure and verbalizes understanding of anesthetic risk.
--- NOTE | 2021-02-19 12:30 | UCONE_ITS ---
Assessment and Plan Assessment and plan (1) Bilateral hydronephrosis: Status: Acute Assessment and plan: She certainly would benefit from having her kidneys drained. Since her ureters are dilated all the way to he bladder and her bladder is not distended, there is a high likelihood that she has an infiltrative process involving the entire base of the bladder. I am willing to attempt to place ureteral stents from below, but if her bladder has been distorted too much, I may not be able to visualize the ureteral orifices. In that case, she may require nephrostomy tubes from above. Since I will be doing the cystoscopy, I can attempt to obtain biopsies from her bladder for tissue diagnosis. History of Present Illness History of Present Illness Chief Complaint: Bilateral hydronephrosis Narrative: This is a 70 year old woman who has not sought medical care for over 20 years. She presented to the ER yeasterday with weakness and a 50 pound weight loss over the past year. On evaluation, she was found to have an elevated serum creatinine and anemia. She was evaluated with a noncontrast CT which demonstrates a large lung mass, bilateral hydronephrosis with hydroureters down to the bladder with diffuse distortion of the bladder. Her bladder was not distended. She admits to progressive enuresis. She tells me her urine has been dark but she has not seen clots in the urine. She has been a tobacco user in the past, but not currently. She has never had any type of urologic surgery. Her UA showed RBC and WBC. She is being treated for a UTI. It is not clear to me from the chart if this is a cathed specimen or a voided specimen. I have been asked to see her for the hydronephrosis and possible bladder mass. Review of Systems Constitutional Constitutional: Reports fatigue, Denies fever(s), Reports weakness and Reports weight loss Cardiovascular Cardiovascular: Denies chest pain at rest Respiratory Respiratory: Denies hemoptysis Gastrointestinal Gastrointestinal: Denies vomiting Neurologic Neurologic: Denies convulsions and Reports weakness Endocrine Endocrine: Reports fatigue Hematologic/Lymphatic Hematologic/Lymphatic: Denies easy bleeding and Denies easy bruising [facility] Medical History (Updated 02/19/21 @ 16:32 by Jaycee Mckeon MD) Bilateral hydronephrosis Social History Smoking/Tobacco Use Status: Former Tobacco Use Smoking risk assessment performed?: Yes Alcohol Intake: never Substance use type: does not use Do you feel safe at home: Yes Exam Narrative Exam Narrative: I reviewed her CT of the abdomen and pelvis. The scan was done without contrast. There is bilateral hydronephrosis and hydroureter down to the bladder but no stones are seen. Her bladder is not distended. There are multiple areas of increased bladder wall thickness. I do not see any pelvic adenopathy. Const General: cooperative and frail appearing GI Palpation: no masses Neuro General: patient alert and patient awake Results Last Vital Signs Temp 36.3 C L 02/19/21 12:22 Pulse 91 H 02/19/21 12:22 Resp 18 02/19/21 12:22 BP 108/60 02/19/21 12:22 Pulse Ox 100 02/19/21 12:22 Labs Result diagrams: 02/19/21 06:20 02/19/21 06:20 Labs: Laboratory Results - last 24 hr 02/18/21 02/18/21 02/18/21 16:45 17:12 17:12 WBC 26.86 H* RBC 4.02 Hgb 7.7 L Hct 26.9 L MCV 66.9 L MCH 19.2 L MCHC 28.6 L RDW 20.8 H Plt Count 1115 H* MPV 8.6 Reticulocyte % (Auto) Immature Gran % 1.1 Neutrophils % 83.0 Lymphocytes % 7.4 Monocytes % 6.1 Eosinophils % 2.1 Basophils % 0.3 Nucleated RBC % 0 Absolute Neutrophils 22.29 H Absolute Lymphocytes 1.99 Absolute Monocytes 1.64 H Absolute Eosinophils 0.56 Absolute Basophils 0.08 RBC Morphology See Below Hypochromasia 2+ Anisocytosis 2+ Microcytosis 3+ VBG Lactate Sodium 131 L Potassium 5.3 H Chloride 100 Carbon Dioxide 13.5 L Anion Gap 17.5 H BUN 134 H* Creatinine 7.6 H* Estimated GFR/1.73 m2 5.29 Glucose 129 H Calcium 9.2 Iron TIBC Transferrin % Sat Ferritin Total Bilirubin 0.2 AST 18 ALT 27 Alkaline Phosphatase 105 Total Protein 10.5 H Albumin 2.3 L Lipase 135 Vitamin B12 Folate TSH Urine Color Brown Urine Clarity Cloudy Urine pH 7.0 Ur Specific [place] 1.025 Urine Protein >=300 H Urine Ketones Negative Urine Blood Large H Urine Nitrite Negative Urine Bilirubin Negative Urine Urobilinogen 0.2 Ur Leukocyte Esterase Large H Urine RBC >50 H Urine WBC >50 H Ur Epithelial Cells Not Applicable Urine Crystals Not Applicable Urine Bacteria Many Urine Mucus Not Applicable Ur Culture Indicated? Yes Urine Glucose Negative COVID-19 Source SARS-CoV-2 (PCR) Patient ABO/Rh Antibody Screen Crossmatch 02/18/21 02/18/21 02/18/21 17:12 17:12 17:12 WBC RBC Hgb Hct MCV MCH MCHC RDW Plt Count MPV Reticulocyte % (Auto) Immature Gran % Neutrophils % Lymphocytes % Monocytes % Eosinophils % Basophils % Nucleated RBC % Absolute Neutrophils Absolute Lymphocytes Absolute Monocytes Absolute Eosinophils Absolute Basophils RBC Morphology Hypochromasia Anisocytosis Microcytosis VBG Lactate Sodium Potassium Chloride Carbon Dioxide Anion Gap BUN Creatinine Estimated GFR/1.73 m2 Glucose Calcium Iron 27 L TIBC 232 L Transferrin % Sat 12 L Ferritin 855 H Total Bilirubin AST ALT Alkaline Phosphatase Total Protein Albumin Lipase Vitamin B12 Folate TSH 3.57 Urine Color Urine Clarity Urine pH Ur Specific [place] Urine Protein Urine Ketones Urine Blood Urine Nitrite Urine Bilirubin Urine Urobilinogen Ur Leukocyte Esterase Urine RBC Urine WBC Ur Epithelial Cells Urine Crystals Urine Bacteria Urine Mucus Ur Culture Indicated? Urine Glucose COVID-19 Source SARS-CoV-2 (PCR) Patient ABO/Rh Antibody Screen Crossmatch 02/18/21 02/18/21 02/18/21 17:12 18:00 18:20 WBC RBC Hgb Hct MCV MCH MCHC RDW Plt Count MPV Reticulocyte % (Auto) 1.1 Immature Gran % Neutrophils % Lymphocytes % Monocytes % Eosinophils % Basophils % Nucleated RBC % Absolute Neutrophils Absolute Lymphocytes Absolute Monocytes Absolute Eosinophils Absolute Basophils RBC Morphology Hypochromasia Anisocytosis Microcytosis VBG Lactate 1.4 Sodium Potassium Chloride Carbon Dioxide Anion Gap BUN Creatinine Estimated GFR/1.73 m2 Glucose Calcium Iron TIBC Transferrin % Sat Ferritin Total Bilirubin AST ALT Alkaline Phosphatase Total Protein Albumin Lipase Vitamin B12 Folate TSH Urine Color Urine Clarity Urine pH Ur Specific [place] Urine Protein Urine Ketones Urine Blood Urine Nitrite Urine Bilirubin Urine Urobilinogen Ur Leukocyte Esterase Urine RBC Urine WBC Ur Epithelial Cells Urine Crystals Urine Bacteria Urine Mucus Ur Culture Indicated? Urine Glucose COVID-19 Source Nasal/Nares SARS-CoV-2 (PCR) Negative Patient ABO/Rh Antibody Screen Crossmatch 02/19/21 02/19/21 02/19/21 06:20 06:20 06:20 WBC 22.79 H RBC 3.18 L Hgb 6.3 L* Hct 22.0 L MCV 69.2 L MCH 19.8 L MCHC 28.6 L RDW 20.9 H Plt Count 880 H* MPV 8.6 Reticulocyte % (Auto) Immature Gran % Neutrophils % Lymphocytes % Monocytes % Eosinophils % Basophils % Nucleated RBC % Absolute Neutrophils Absolute Lymphocytes Absolute Monocytes Absolute Eosinophils Absolute Basophils RBC Morphology Hypochromasia Anisocytosis Microcytosis VBG Lactate Sodium 137 Potassium 5.9 H Chloride 109 H Carbon Dioxide 9.4 L Anion Gap 18.6 H BUN 123 H* Creatinine 6.6 H* Estimated GFR/1.73 m2 6.23 Glucose 81 Calcium 7.9 L Iron TIBC Transferrin % Sat Ferritin Total Bilirubin AST ALT Alkaline Phosphatase Total Protein Albumin Lipase Vitamin B12 619 Folate 7.7 L TSH Urine Color Urine Clarity Urine pH Ur Specific [place] Urine Protein Urine Ketones Urine Blood Urine Nitrite Urine Bilirubin Urine Urobilinogen Ur Leukocyte Esterase Urine RBC Urine WBC Ur Epithelial Cells Urine Crystals Urine Bacteria Urine Mucus Ur Culture Indicated? Urine Glucose COVID-19 Source SARS-CoV-2 (PCR) Patient ABO/Rh A Positive Antibody Screen NEGATIVE Crossmatch See Detail
[2021-02-19] MEDS: Acetaminophen 325 MG TAB 650 MG PO (12:42)
[2021-02-19] MEDS: diphenhydrAMINE 25 MG CAP PO (12:43)
--- NOTE | 2021-02-19 13:30 | DI.RAD_ITS ---
Exam(s) XR RETROGRADE IN OR EXAM: XR RETROGRADE IN OR CLINICAL HISTORY: CYSTOSCOPY W/RETROGRADE STENT PLACEMENT. TECHNIQUE: 2D digital imaging was performed. COMPARISON: No exams were available for comparison FINDINGS: Fluoroscopy was provided during urologic procedure. See procedure report for details. Total fluoroscopy time 9.2 seconds Cumulative dose 2.21mGy IMPRESSION: DATA REPOSITORY: RADIATION DOSE DELIVERED:
[2021-02-19] MEDS: Lidocaine 2% Jelly 6 ML SYR (15:20)
--- NOTE | 2021-02-19 15:30 | BLADDER_PTH ---
PATIENT: Barb Bullard LOC: [id number] AGE/SX: 70/F ROOM: RE02/18/[address]: Jean Carlos Hancock : 1950 BED: A DIS: 02/25/2021 SPEC #: [id number] RECD: 02/19/21 17:52 STATUS: DEAN REQ #: [id number] LIN: 02/19/21 15:[address]: Jean Carlos Hancock DEPT: Surgical Specimen RECD BY: Debbi Graff ENTERED: 02/19/21 17:53 SP TYPE: Bladder OTHR DR: MD Joelle Faye MD Unknown,Unknown Tissues: 1 - BLADDER BIOPSY Procedures: GROSS AND MICRO LEVEL 4 IMMUNOPEROXIDASE STAIN Comments: [id number]
--- NOTE | 2021-02-19 15:49 | NUR.NOTE ---
Nursing Note: At 1405 Patient went down to PACU. Patients blood transfused on arrival to the PACU. Patient switched to Saline flush prior to this nurse leaving PACU. All subsequent vital signs done by OR staff.
--- NOTE | 2021-02-19 16:14 | W.ANESPOSTOP ---
Postoperative Evaluation Date, Time and Location Date Performed: 02/19/21 Time Performed: 16:10 Patient Location: Med/Surg Vital Signs Most Recent Imported Vital Signs: Most Recent Vital Signs Temp Pulse Resp BP Pulse Ox 36.0 C L 92 H 20 122/80 97 02/19/21 16:04 02/19/21 16:04 02/19/21 16:04 02/19/21 16:04 02/19/21 16:04 Pain Score Most Recent Pain Score: Most Recent Pain Score Pain Level 5 02/19/21 16:04 Assessment Mental Status: Awake (Alert & Oriented to Patient Baseline) Airway and Respiratory Function: Patent airway with normal (patient baseline) respiratory exam Cardiovascular Function: Hemodynamically Stable Hydration Status: Adequately Hydrated Nausea & Vomiting: No Nausea or Vomiting Pain: Pt. Denies Any Pain Peripheral Nerve Block: Patient did not receive a nerve block
--- NOTE | 2021-02-19 16:21 | PGE_ITS ---
Date of Service Date of service: 02/19/21 Time of Service: 16:21 Assessment and Plan Assessment and plan (1) Sepsis: Status: Acute Assessment and plan: Due to UTI, present on admission, complicated by bladder tumor and B hydronephrosis. Blood cx 05/01: GPCs in clusters. Add vancomycin to zosyn. Await speciation/sensitivities. Repeat blood cultures in am. Needs to have hydronephrosis decompressed. (2) Acute UTI: Status: Acute Assessment and plan: As above We are attempting to arrange a [id number] transfer to [facility] for B nephrostomies. (3) Bladder mass: Status: Acute Assessment and plan: Biopsied during cystoscopy today. Suspected to be malignancy. Creating obstructive uropathy. As above- arranging transfer for B nephrostomy tubes. (4) Obstructive uropathy: Status: Acute Assessment and plan: As above (5) Lung mass: Status: Acute Assessment and plan: with collapse of LLL as the mass is obstructive. Abx changed to cover for post-obstructive PNA. Needs outpatient referral for bronch/stent. (6) BRITNI (acute kidney injury): Status: Acute Assessment and plan: Predominantly post-obstructive, however probably also somewhat prerenal as anemic. Continue IVF. Hoping to arrange for B nephrostomies. (7) Anemia due to acute blood loss: Status: Acute Assessment and plan: S/p transfusion of 1unit of pRBCs. Await stat bloodwork. (8) Airway obstruction: Status: Acute Assessment and plan: As above (9) Thrombocytosis: Status: Acute Assessment and plan: Likely reactive. Will monitor. (10) Folate deficiency: Status: Acute Assessment and plan: Replete (11) DVT prophylaxis: Status: Acute Assessment and plan: SCDs. Chemical anticoagulation is contraindicated in acute bleeding. (12) Discharge planning issues: Status: Acute Assessment and plan: Full code Agrees to [id number] transfer to [facility] for IR placement of B nephrostomies. Palliative care consulted. Subjective Subjective Interval history since last seen: Ms Bullard had a cystoscopy this afternoon during which stents could not be placed. Referral to [facility] for B nephrostomy tubes was recommended. The patient complains of dysuria and discomfort from the bladder. She has had hematuria. She is too focused on her sx to answer my other questions today. She is agreeable with transfer/[id number] trip to [facility]. Exam Narrative Exam Narrative: General: Anxious appearing middle-aged female, visibly uncomfortable, not able to focus on my questions HEENT: EOMI, MMM Heart: not auscultated - the patient cut my visit with her short to go to the bathroom Lungs: nonlabored breathing - not auscultated - read above Abdomen: nondisteded Extremities: no edema Objective Last Vital Signs Temp 36.0 C L 02/19/21 16:04 Pulse 92 H 02/19/21 16:04 Resp 20 02/19/21 16:04 BP 122/80 02/19/21 16:04 Pulse Ox 97 02/19/21 16:04 Laboratory Results - last 24 hr 02/18/21 02/18/21 02/18/21 16:45 17:12 17:12 WBC 26.86 H* RBC 4.02 Hgb 7.7 L Hct 26.9 L MCV 66.9 L MCH 19.2 L MCHC 28.6 L RDW 20.8 H Plt Count 1115 H* MPV 8.6 Reticulocyte % (Auto) Immature Gran % 1.1 Neutrophils % 83.0 Lymphocytes % 7.4 Monocytes % 6.1 Eosinophils % 2.1 Basophils % 0.3 Nucleated RBC % 0 Absolute Neutrophils 22.29 H Absolute Lymphocytes 1.99 Absolute Monocytes 1.64 H Absolute Eosinophils 0.56 Absolute Basophils 0.08 RBC Morphology See Below Hypochromasia 2+ Anisocytosis 2+ Microcytosis 3+ VBG Lactate Sodium 131 L Potassium 5.3 H Chloride 100 Carbon Dioxide 13.5 L Anion Gap 17.5 H BUN 134 H* Creatinine 7.6 H* Estimated GFR/1.73 m2 5.29 Glucose 129 H Calcium 9.2 Iron TIBC Transferrin % Sat Ferritin Total Bilirubin 0.2 AST 18 ALT 27 Alkaline Phosphatase 105 Total Protein 10.5 H Albumin 2.3 L Lipase 135 Vitamin B12 Folate TSH Urine Color Brown Urine Clarity Cloudy Urine pH 7.0 Ur Specific [place] 1.025 Urine Protein >=300 H Urine Ketones Negative Urine Blood Large H Urine Nitrite Negative Urine Bilirubin Negative Urine Urobilinogen 0.2 Ur Leukocyte Esterase Large H Urine RBC >50 H Urine WBC >50 H Ur Epithelial Cells Not Applicable Urine Crystals Not Applicable Urine Bacteria Many Urine Mucus Not Applicable Ur Culture Indicated? Yes Urine Glucose Negative COVID-19 Source SARS-CoV-2 (PCR) Patient ABO/Rh Antibody Screen Crossmatch 02/18/21 02/18/21 02/18/21 17:12 17:12 17:12 WBC RBC Hgb Hct MCV MCH MCHC RDW Plt Count MPV Reticulocyte % (Auto) Immature Gran % Neutrophils % Lymphocytes % Monocytes % Eosinophils % Basophils % Nucleated RBC % Absolute Neutrophils Absolute Lymphocytes Absolute Monocytes Absolute Eosinophils Absolute Basophils RBC Morphology Hypochromasia Anisocytosis Microcytosis VBG Lactate Sodium Potassium Chloride Carbon Dioxide Anion Gap BUN Creatinine Estimated GFR/1.73 m2 Glucose Calcium Iron 27 L TIBC 232 L Transferrin % Sat 12 L Ferritin 855 H Total Bilirubin AST ALT Alkaline Phosphatase Total Protein Albumin Lipase Vitamin B12 Folate TSH 3.57 Urine Color Urine Clarity Urine pH Ur Specific [place] Urine Protein Urine Ketones Urine Blood Urine Nitrite Urine Bilirubin Urine Urobilinogen Ur Leukocyte Esterase Urine RBC Urine WBC Ur Epithelial Cells Urine Crystals Urine Bacteria Urine Mucus Ur Culture Indicated? Urine Glucose COVID-19 Source SARS-CoV-2 (PCR) Patient ABO/Rh Antibody Screen Crossmatch 02/18/21 02/18/21 02/18/21 17:12 18:00 18:20 WBC RBC Hgb Hct MCV MCH MCHC RDW Plt Count MPV Reticulocyte % (Auto) 1.1 Immature Gran % Neutrophils % Lymphocytes % Monocytes % Eosinophils % Basophils % Nucleated RBC % Absolute Neutrophils Absolute Lymphocytes Absolute Monocytes Absolute Eosinophils Absolute Basophils RBC Morphology Hypochromasia Anisocytosis Microcytosis VBG Lactate 1.4 Sodium Potassium Chloride Carbon Dioxide Anion Gap BUN Creatinine Estimated GFR/1.73 m2 Glucose Calcium Iron TIBC Transferrin % Sat Ferritin Total Bilirubin AST ALT Alkaline Phosphatase Total Protein Albumin Lipase Vitamin B12 Folate TSH Urine Color Urine Clarity Urine pH Ur Specific [place] Urine Protein Urine Ketones Urine Blood Urine Nitrite Urine Bilirubin Urine Urobilinogen Ur Leukocyte Esterase Urine RBC Urine WBC Ur Epithelial Cells Urine Crystals Urine Bacteria Urine Mucus Ur Culture Indicated? Urine Glucose COVID-19 Source Nasal/Nares SARS-CoV-2 (PCR) Negative Patient ABO/Rh Antibody Screen Crossmatch 02/19/21 02/19/21 02/19/21 06:20 06:20 06:20 WBC 22.79 H RBC 3.18 L Hgb 6.3 L* Hct 22.0 L MCV 69.2 L MCH 19.8 L MCHC 28.6 L RDW 20.9 H Plt Count 880 H* MPV 8.6 Reticulocyte % (Auto) Immature Gran % Neutrophils % Lymphocytes % Monocytes % Eosinophils % Basophils % Nucleated RBC % Absolute Neutrophils Absolute Lymphocytes Absolute Monocytes Absolute Eosinophils Absolute Basophils RBC Morphology Hypochromasia Anisocytosis Microcytosis VBG Lactate Sodium 137 Potassium 5.9 H Chloride 109 H Carbon Dioxide 9.4 L Anion Gap 18.6 H BUN 123 H* Creatinine 6.6 H* Estimated GFR/1.73 m2 6.23 Glucose 81 Calcium 7.9 L Iron TIBC Transferrin % Sat Ferritin Total Bilirubin AST ALT Alkaline Phosphatase Total Protein Albumin Lipase Vitamin B12 619 Folate 7.7 L TSH Urine Color Urine Clarity Urine pH Ur Specific [place] Urine Protein Urine Ketones Urine Blood Urine Nitrite Urine Bilirubin Urine Urobilinogen Ur Leukocyte Esterase Urine RBC Urine WBC Ur Epithelial Cells Urine Crystals Urine Bacteria Urine Mucus Ur Culture Indicated? Urine Glucose COVID-19 Source SARS-CoV-2 (PCR) Patient ABO/Rh A Positive Antibody Screen NEGATIVE Crossmatch See Detail
[2021-02-19] MEDS: Dextrose 50%-Water 25 GM/50 ML SYR IVP (16:25)
[2021-02-19] MEDS: Insulin REGULAR-Human 100 UNITS/ML UNIT IV (16:25)
[2021-02-19] MEDS: Normal Saline Flush 10 ML SYR IVP ×3 (16:26→20:06)
--- NOTE | 2021-02-19 16:30 | ROE_ITS ---
Date of service: 02/19/21 Time of Service: 16:30 Operative Note Operative Note DATE OF PROCEDURE: 02/19/21 PRE-OP DIAGNOSIS: Bilateral hydronephrosis POST-OP DIAGNOSIS: same PROCEDURE: Cystoscopy, bladder biopsy SURGEON: Leandro Arzate ANESTHESIA TYPE: Local By Surgeon and MAC Refer to Anesthesia Record ESTIMATED BLOOD LOSS: 10 PATHOLOGY: other (Biopsies bladder mass) COMPLICATIONS: None Patient was transported to: floor Patient's condition: stable Implants: 18 Nigerien Vale catheter 10 cc in balloon Indications: Is a 70-year-old woman who presented with weakness and weight loss. She was found to have elevated serum creatinine and anemia. She underwent a CT scan which demonstrated a lung mass, bilateral hydronephrosis and hydroureter all the way down to the bladder and an abnormal appearing bladder. She presents for cystoscopy with attempted ureteral stent placement. We will also plan on biopsying her bladder. Findings: No papillary lesion within the bladder. Instead, there is a nodular mass occupying the majority of the bladder. The bladder capacity was markedly diminished. I was unable to visualize either ureteral orifice. Procedure Description: She was brought to the operating room on 02/19/2021. After successful induction of monitored anesthesia care, she was placed in the dorsal lithotomy position. Her genitalia was prepped and draped. Initial pelvic examination revealed vaginal stenosis and atrophic vaginitis. No palpable pelvic mass on the cervix was identified. 2% Xylocaine jelly was then instilled into the urethra. I was able to pass a 22 Nigerien rigid cystoscope through the urethra into the bladder. Liquid containing necrotic tissue was drained. I then used a 30 degree lens to visualize the lumen of the bladder. Initially, visualization was difficult because of the amount of necrotic tissue and the very small capacity of the bladder. After I hand irrigated a large amount of the necrotic tissue, I was able to visualize a whitish nodular growth prominent at the dome of the bladder. There was distortion of the bladder neck area. I was unable to visualize either ureteral orifice. I took multiple biopsies of the nodular tissue using cold cup biopsy forceps. All biopsies were sent to pathology for permanent section. Being unable to cannulate the ureteral orifice ease for stent placement. I elected to stop the procedure and place a Vale catheter. We chose an 18 Nigerien Vale which I passed through the urethra into the bladder. The catheter balloon was inflated with 10 cc of sterile water and the catheter was hooked to gravity drainage. The patient will need to have the nephrostomy tubes placed by interventional radiology to accomplish adequate kidney drainage.
[2021-02-19 17:03] LABS: HCT 30.3 % (36.0-46.0); HGB 8.8 g/dL (11.2-15.7)
[2021-02-19] MEDS: PIPERACILLIN/TAZO 2.25 GM in Normal Saline 50 ML IVPB ×2 (17:49→23:13)
[2021-02-19 18:03] LABS: Anion Gap 18.8 mmol/L (3-11); CO2 10.2 mmol/L (21.0-32.0); Calcium 7.7 mg/dL (8.5-10.1); Chloride 110 mmol/L (98-107); Estimated GFR 6.45 (mL/min/1.73m2); Glucose 142 mg/dL (74-106); Magnesium 2.3 mg/dL (1.8-2.4); Potassium 5.8 mmol/L (3.5-5.1); Sodium 139 mmol/L (136-145)
[2021-02-19 18:08] LABS: BUN 117 mg/dL (7-18); CREATININE 6.4 mg/dL (0.55-1.02)
[2021-02-19] MEDS: VANCOMYCIN 750 MG in Normal Saline 250 ML 250 MG IV (18:39)
[2021-02-19] MEDS: Sodium Zirconium Cyclosilicate 10 GM PKT PO ×2 (18:42→22:58)
--- NOTE | 2021-02-19 19:07 | PCNE_ITS ---
Date of service: 02/19/21 Time of Service: 19:07 History of Present Illness History of Present Illness Chief Complaint: sepsis, bladder mass, lung mass Narrative: Barb was brought to the emergency room by her daughter due to, per daughter, 50 pound weight loss and dysuria. Barb states that she has lost about 20 pounds. There has recently been some cognitive decline per daughter Daisha. In the ER she had labwork and imaging and was found to have both a bladder and lung mass, UTI, anemia, high creatinie and potassium as well as other abnormalities. She was admitted for antibiotics, IV fluids and cystoscopy due to bilateral hydronephrosis. sHE RECEIVED A UNIT OF BLOOD DUE TO ANEMIA Today she underwent cystoscopy but tubes were unable to be placed due to the large mass. The plan is to go to [facility] tomorrow and have interventional radiology place nephrostomy tubes. She was also seen by pulmonary. Dr. Joshua stated that she will need bronchoscopy and stent placement to her left lower lobe due to a large mass. Presently Brab is eating although she admits she is not very hungry. She has agreed to go to [facility] for the nephrostomy procedure at . Both she and Daisha, her daughter. who was on speaker phone were able to explain the basics of what was going on with Barb and what the present plan was. I was asked by Dr. Mckeon to speak with Barb to determine her goals of care, CODE STATUS, whether she was willing to undergo dialysis, and her priorities and choices at this time Consults Consult date: 02/19/21 Requesting physician: Jaycee Mckeon Assessment and Plan Assessment and plan (1) Anemia due to acute blood loss: Status: Acute (2) Obstructive uropathy: Status: Acute (3) Bladder mass: Status: Acute (4) Sepsis: Status: Acute (5) Bilateral hydronephrosis: Status: Acute (6) Lung mass: Status: Acute (7) Palliative care patient: Status: Acute Assessment and plan: 70-year-old woman who has received very little medical care in the last few decades, admitted for weight loss, bladder mass, lung mass, severely elevated creatinine, anemia requiring transfusions, and expectation that she will be having nephrostomy tubes placed tomorrow at [facility]. She does understand her present problems. Her daughter Daisha also understood. Daisha is upset because she cannot be with her mom as she is not vaccinated. Daisha is hoping that her mom can be transferred to [facility] so that she can be with her. I did explain that the plan was not to transfer Barb but to have Barb go down to [facility] and come back after the interventional radiology procedure. Daisha plans to call Dr. Mckeon in the morning to see about transfer to [facility]. I have left a note for Dr. Mckeon regarding a number that Daisha can be reached. Daisha stated that the landline that we have would not work and that her cell phone was going to be turned off [employer]. The only number was Daisha's work number. After Discussing the monumental problems now facing Barb, we did talk about CODE STATUS. At this time Barb would like to remain a full code, but understands that this may change after she gets more information regarding her bladder and lung mass. Due to the bilateral hydronephrosis and bladder mass obstructing, she does agree to the nephrostomy tubes, but did not really understand what this entailed as far as the care that these would require. She would prefer to take 1 step at a time, gain more information about her options, and then make decisions as to what her goals of care and priorities are. I did give Barb my card and welcomed Barb and Daisha contacting me once they had more information so that Barb could determine what she wanted to do. I also do plan to follow-up with Barb when more information becomes available. Thank you very much for this consult. Review of Systems Narrative: She states that she presently is not particularly hungry but anxious to eat. She did have severe dysuria after the cystoscopy, but this is resolving, she does not have any chest pain. She feels that her weight loss has only been about 20 pounds. She understands that her listening skills not good and her daughter likes to be with her when things are being discussed. Her daughter Daisha also stated that she has been fatigued. [facility] Medical History (Updated 02/19/21 @ 21:12 by Atiya Patel MD, DC) Bilateral hydronephrosis Social History Smoking/Tobacco Use Status: Former Tobacco Use Smoking risk assessment performed?: Yes Alcohol Intake: never Substance use type: does not use Do you feel safe at home: Yes Exam Narrative Exam Narrative: Barb is sitting on her bed. Daisha is on speaker phone. Barb was able to tell me the main problem she presently has. She did get quite confused at times but it was more being overwhelmed and confused. Her breathing and was not labored she stated that she did not have abdominal pain at this point but did have a lot of pain earlier today. Her abdomen was soft but she was guarding. Results Last Vital Signs Temp 96.8 F L 02/19/21 16:04 Pulse 92 H 02/19/21 16:04 Resp 20 02/19/21 16:04 BP 122/80 02/19/21 16:04 Pulse Ox 97 02/19/21 16:04 Labs Result diagrams: 02/19/21 16:43 02/19/21 16:43 Labs: Laboratory Results - last 24 hr 02/18/21 02/18/21 02/18/21 17:12 17:12 17:12 WBC RBC Hgb Hct MCV MCH MCHC RDW Plt Count MPV Reticulocyte % (Auto) 1.1 Sodium Potassium Chloride Carbon Dioxide Anion Gap BUN Creatinine Estimated GFR/1.73 m2 Glucose Calcium Magnesium Iron 27 L TIBC 232 L Transferrin % Sat 12 L Ferritin 855 H Vitamin B12 Folate Patient ABO/Rh Antibody Screen Crossmatch 02/19/21 02/19/21 02/19/21 06:20 06:20 06:20 WBC 22.79 H RBC 3.18 L Hgb 6.3 L* Hct 22.0 L MCV 69.2 L MCH 19.8 L MCHC 28.6 L RDW 20.9 H Plt Count 880 H* MPV 8.6 Reticulocyte % (Auto) Sodium 137 Potassium 5.9 H Chloride 109 H Carbon Dioxide 9.4 L Anion Gap 18.6 H BUN 123 H* Creatinine 6.6 H* Estimated GFR/1.73 m2 6.23 Glucose 81 Calcium 7.9 L Magnesium Iron TIBC Transferrin % Sat Ferritin Vitamin B12 619 Folate 7.7 L Patient ABO/Rh A Positive Antibody Screen NEGATIVE Crossmatch See Detail 02/19/21 02/19/21 02/19/21 12:00 16:43 16:43 WBC RBC Hgb 8.8 L D Hct 30.3 L D MCV MCH MCHC RDW Plt Count MPV Reticulocyte % (Auto) Sodium Cancelled 139 Potassium Cancelled 5.8 H Chloride Cancelled 110 H Carbon Dioxide Cancelled 10.2 L Anion Gap Cancelled 18.8 H BUN Cancelled 117 H* Creatinine Cancelled 6.4 H* Estimated GFR/1.73 m2 Cancelled 6.45 Glucose Cancelled 142 H Calcium Cancelled 7.7 L Magnesium 2.3 Iron TIBC Transferrin % Sat Ferritin Vitamin B12 Folate Patient ABO/Rh Antibody Screen Crossmatch
[2021-02-19] MEDS: Lactated Ringers 1,000 ML 125 ML IV (20:06)
[2021-02-20] VITALS (14 sets, daily range): BP systolic 107–120; BP diastolic 55–69; PULSE 77–94; RESP 16–20; TEMP 35.7–36.6; O2SAT 96–100
[2021-02-20] MEDS: Lactated Ringers 1,000 ML 125 ML IV ×2 (04:33→18:22)
[2021-02-20] MEDS: Sodium Zirconium Cyclosilicate 10 GM PKT PO (06:31)
--- NOTE | 2021-02-20 07:33 | PGE_ITS ---
Date of Service Date of service: 02/20/21 Time of Service: 07:34 Assessment and Plan Assessment and plan (1) Bilateral hydronephrosis: Status: Acute Assessment and plan: Her bladder is markedly distorted both on CT and on cystoscopy. She certainly does not have a typical papillary bladder mass and there is no evidence of pelvic adenopathy on CT scan (the most common site of spread from a bladder cancer). Instead, there was extensive nodular growth within the bladder along with necrotic tissue. I took multiple biopsies from the least necrotic-looking areas. Her bladder capacity is markedly diminished so I am not overly surprised that she was unable to tolerate the catheter. While her initial urinalysis was suggestive of an infection, her culture is more consistent with a vaginal contaminant. She does have vaginal stenosis and I was only able to do an examination with a single finger. Anatomically, I do not think it is possible for her to obtain a clear catch urine. The purulent appearance of the urine actually seems to be sloughing of necrotic tissue rather than of an infectious etiology. I explained the rationale for nephrostomy tubes having been unable to place ureteral stents in a retrograde manner. I explained that these tubes would need to be placed by interventional radiology. There is some indication that her lung mass will need to be biopsied by interventional radiology as well. I do not know if we should ask to have the lung mass biopsied at the same time as the nephrostomy tube placement. Subjective Subjective Interval history since last seen: She was unable to tolerate the Vale catheter replaced yesterday due to pain. The catheter has been removed and she is back to having incontinent episodes. She is not having any flank pain. She has no fevers or chills Exam Narrative Exam Narrative: She appears chronic ill but does not appear toxic Her lab work from this morning is pending, but her hemoglobin improved as exp ected yesterday after her blood transfusions Objective Last Vital Signs Temp 36.6 C 02/20/21 03:34 Pulse 80 02/20/21 03:34 Resp 20 02/20/21 03:34 BP 120/64 02/20/21 03:34 Pulse Ox 99 02/20/21 03:34 Laboratory Results - last 24 hr 02/19/21 02/19/21 02/19/21 06:20 06:20 12:00 Hgb Hct Sodium 137 Cancelled Potassium 5.9 H Cancelled Chloride 109 H Cancelled Carbon Dioxide 9.4 L Cancelled Anion Gap 18.6 H Cancelled BUN 123 H* Cancelled Creatinine 6.6 H* Cancelled Estimated GFR/1.73 m2 6.23 Cancelled Glucose 81 Cancelled Calcium 7.9 L Cancelled Magnesium Vitamin B12 619 Folate 7.7 L Patient ABO/Rh A Positive Antibody Screen NEGATIVE Crossmatch See Detail 02/19/21 02/19/21 16:43 16:43 Hgb 8.8 L D Hct 30.3 L D Sodium 139 Potassium 5.8 H Chloride 110 H Carbon Dioxide 10.2 L Anion Gap 18.8 H BUN 117 H* Creatinine 6.4 H* Estimated GFR/1.73 m2 6.45 Glucose 142 H Calcium 7.7 L Magnesium 2.3 Vitamin B12 Folate Patient ABO/Rh Antibody Screen Crossmatch
[2021-02-20 07:58] LABS: Abs Immature Grans 0.22 10^3/uL (0.0-0.06); Absolute Basophil Count 0.06 10^3/uL (0.0-0.2); Absolute Monocyte Count 1.27 10^3/uL (0.1-0.8); Basophils % 0.3; Eosinophils % 2.4; HCT 22.4 % (36.0-46.0); Immature Grans % 1.1; Lymphocytes % 6.6; MCH 21.3 pg (27.0-33.0); MCHC 29.9 % (32.0-36.0); MCV 71.3 fL (80-95); MPV 8.4 fL (8.0-11.0); Monocytes % 6.6; Nucleated RBC 0 %; RBC 3.14 10^6/uL (3.93-5.22); RDW 24.4 % (11.7-14.6); RDW-SD 60.3 fL; WBC 19.31 10^3/uL (4.4-10.8)
[2021-02-20 08:04] LABS: Anion Gap 19.7 mmol/L (3-11); CO2 9.3 mmol/L (21.0-32.0); Calcium 7.4 mg/dL (8.5-10.1); Chloride 111 mmol/L (98-107); Estimated GFR 7.09 (mL/min/1.73m2); Glucose 79 mg/dL (74-106); Magnesium 1.8 mg/dL (1.8-2.4); Sodium 140 mmol/L (136-145)
[2021-02-20 08:06] LABS: BUN 108 mg/dL (7-18)
[2021-02-20 08:07] LABS: CREATININE 5.9 mg/dL (0.55-1.02)
[2021-02-20 08:18] LABS: Absolute Eosinophil Count 0.46 10^3/uL (0.0-0.7); Absolute Lymphocyte Count 1.27 10^3/uL (1.2-3.4); Absolute Neutrophil Count 16.03 10^3/uL (1.2-6.7)
[2021-02-20 08:19] LABS: Diff Comment RBC Morph Reviewed; HGB 6.7 g/dL (11.2-15.7); Platelet Count 683 10^3/uL (130-400)
[2021-02-20 08:20] LABS: Anisocytosis 2+; Hypochromasia 2+; Microcytosis 2+
[2021-02-20] MEDS: Normal Saline Flush 10 ML SYR IVP ×2 (09:09→21:50)
[2021-02-20] MEDS: PIPERACILLIN/TAZO 2.25 GM in Normal Saline 50 ML IVPB ×3 (09:09→23:40)
[2021-02-20 09:50] LABS: ALT 21 U/L (14-59); AST 18 U/L (15-37); Albumin 1.6 g/dL (3.4-5.0); Alkaline Phosphatase 81 U/L (46-116); Bilirubin, Direct 0.1 mg/dL (0.0-0.2); Bilirubin, Total 0.4 mg/dL (0.2-1.0); Total Protein 7.6 g/dL (6.4-8.2)
--- NOTE | 2021-02-20 10:24 | W.PM.PROGNOT ---
Date of Service Date of service: 02/20/21 Time of Service: Assessment and Plan Assessment and plan (1) Sepsis: Status: Acute Assessment and plan: Due to Group G strep UTI, present on admission, complicated by bladder tumor and B hydronephrosis. Blood cx 02/18/21 1/4: Coag negative staph. Likely contaminant. Continue vancomycin and zosyn. Await speciation/sensitivities. Repeat blood cultures are pending. Traveling to [facility] [place] B nephrost[place] tubes today. (2) Acute UTI: Status: Acute Assessment and plan: As above (3) Bladder mass: Status: Acute Assessment and plan: S/p cysto and bx 02/19/21. Ureteral stent placement unsuccessful. Suspected malignancy, creating obstructive uropathy. As above - for B nephrostomy tubes today. Await bx results. (4) Obstructive uropathy: Status: Acute Assessment and plan: As above (5) Lung mass: Status: Acute Assessment and plan: with collapse of LLL as the mass is obstructive. Abx changed to cover for post-obstructive PNA. Needs outpatient referral for bronch/stent. Discussed with Dr García, who is arranging this. (6) BRITNI (acute kidney injury): Status: Acute Assessment and plan: Predominantly post-obstructive, however probably also somewhat prerenal as anemic. Improved. Hyperkalemia has resolved. Continue IVF. For B nephrostomies. (7) Anemia due to acute blood loss: Status: Acute Assessment and plan: S/p transfusion of 1unit of pRBCs on 02/19/21. Will need another unit of pRBCs today when she returns from [facility] [place]. (8) Airway obstruction: Status: Acute Assessment and plan: As above (9) Thrombocytosis: Status: Acute Assessment and plan: Likely reactive. Will monitor. (10) Folate deficiency: Status: Acute Assessment and plan: Replete (11) DVT prophylaxis: Status: Acute Assessment and plan: SCDs. Chemical anticoagulation is contraindicated in acute bleeding. (12) Discharge planning issues: Status: Acute Assessment and plan: Full code Traveling for a [id number] transfer to [facility] [place] for IR placement of B nephrostomies this am (Dr Fenton). Palliative care consulted. Subjective Subjective Interval history since last seen: Ms Bullard is going to [facility] [place] ([id number]) for nephrostomy tube placement by IR. She is still agreeable to this. Vale catheter is out. Denies chest pain, shortness of breath, nausea, abdominal pain. Exam Narrative Exam Narrative: General: Anxious appearing middle-aged female, looks more comfortable than yesterday, A&Ox3 HEENT: EOMI, MMM Heart: RRR, mildly tachycardic (low 90s), no m/r/g Lungs: CTAB Abdomen: soft, nontender, nondisteded Extremities: no edema, 1+ pedal pulses B Objective Last Vital Signs Temp 36.6 C 02/20/21 08:07 Pulse 88 02/20/21 08:07 Resp 20 02/20/21 08:07 BP 107/55 L 02/20/21 08:07 Pulse Ox 98 02/20/21 08:07 Laboratory Results - last 24 hr 02/19/21 02/19/21 02/19/21 06:20 12:00 16:43 WBC RBC Hgb Hct MCV MCH MCHC RDW Plt Count MPV Immature Gran % Neutrophils % Lymphocytes % Monocytes % Eosinophils % Basophils % Nucleated RBC % Absolute Neutrophils Absolute Lymphocytes Absolute Monocytes Absolute Eosinophils Absolute Basophils RBC Morphology Hypochromasia Anisocytosis Microcytosis Sodium Cancelled 139 Potassium Cancelled 5.8 H Chloride Cancelled 110 H Carbon Dioxide Cancelled 10.2 L Anion Gap Cancelled 18.8 H BUN Cancelled 117 H* Creatinine Cancelled 6.4 H* Estimated GFR/1.73 m2 Cancelled 6.45 Glucose Cancelled 142 H Calcium Cancelled 7.7 L Magnesium 2.3 Total Bilirubin Conjugated Bilirubin AST ALT Alkaline Phosphatase Total Protein Albumin Patient ABO/Rh A Positive Antibody Screen NEGATIVE Crossmatch See Detail 02/19/21 02/20/21 02/20/21 16:43 07:20 07:30 WBC 19.31 H RBC 3.14 L Hgb 8.8 L D 6.7 L* D Hct 30.3 L D 22.4 L D MCV 71.3 L MCH 21.3 L MCHC 29.9 L RDW 24.4 H Plt Count 683 H MPV 8.4 Immature Gran % 1.1 Neutrophils % 83.0 Lymphocytes % 6.6 Monocytes % 6.6 Eosinophils % 2.4 Basophils % 0.3 Nucleated RBC % 0 Absolute Neutrophils 16.03 H Absolute Lymphocytes 1.27 Absolute Monocytes 1.27 H Absolute Eosinophils 0.46 Absolute Basophils 0.06 RBC Morphology See Below Hypochromasia 2+ Anisocytosis 2+ Microcytosis 2+ Sodium 140 Potassium 4.0 D Chloride 111 H Carbon Dioxide 9.3 L Anion Gap 19.7 H BUN 108 H* Creatinine 5.9 H* Estimated GFR/1.73 m2 7.09 Glucose 79 D Calcium 7.4 L Magnesium 1.8 Total Bilirubin 0.4 Conjugated Bilirubin 0.1 AST 18 ALT 21 Alkaline Phosphatase 81 Total Protein 7.6 Albumin 1.6 L Patient ABO/Rh Antibody Screen Crossmatch
[2021-02-20 11:06] LABS: PHOSPHORUS 6.7 mg/dL (2.6-4.7)
--- NOTE | 2021-02-20 11:23 | CMPROGNOTE_ITS ---
- If Service Date Differs Date of service: 02/20/21 Time of Service: 13:16 Care Management Progress Note S/O: Per provider, Barb will have a down and back appointment at [facility] today for placement of nephrostomy tubes. Per provider, patient is currently medically complex with multiple co-morbidities; please refer to MD note for more detailed information. Anticipate Barb will have a blood transfusion today, when she returns per MD. CM continues to follow. A: 70 year old female admitted to [facility] 02/18/21 for BRITNI, anemia, UTI P: Anticipate Barb will be discharged home when medically cleared by provider; plan remains undetermined at this time. She will transport via private vehicle with family and follow up with community providers including her PCP and discharge plan of care as prescribed. CM continues to follow.
[2021-02-20] MEDS: diphenhydrAMINE 25 MG CAP PO (15:35)
[2021-02-20] MEDS: Sodium Bicarbonate 650 MG TAB PO ×2 (15:36→21:48)
[2021-02-20] MEDS: Acetaminophen 325 MG TAB 650 MG PO (15:36)
--- NOTE | 2021-02-20 18:57 | NUR.NOTE ---
Nursing Note: [id number] patient was received from EMS from [facility] via stretcher Patient is sleepy but easily aroused. Patient had right and left neph/ureter stent placed both are to Vale drainage bags Both are draining bloody urine not bright blood Patient denies pain
[2021-02-20 20:38] LABS: HCT 28.1 % (36.0-46.0); HGB 8.6 g/dL (11.2-15.7)
[2021-02-20] MEDS: Calcium Carbonate 1.5 GM TAB PO (21:48)
[2021-02-21] VITALS (8 sets, daily range): BP systolic 113–151; BP diastolic 67–78; PULSE 85–93; RESP 15–18; TEMP 36.4–37.4; O2SAT 93–99
--- NOTE | 2021-02-21 | DI.MRI_ITS ---
Exam(s) MR BRAIN WO EXAM: MR BRAIN WO CLINICAL HISTORY: suspected metastatic disease TECHNIQUE: Multiplanar multisequence MRI of the brain was performed. COMPARISON: CT CT HEAD WO from 02/18/2021 FINDINGS: CEREBRAL PARENCHYMA: There is no evidence of intracranial hemorrhage, mass effect, or shift of midline structures. There are no extra-axial fluid collections. Ventricles are not enlarged or shifted. There is no significant focal signal abnormality in the cerebellar hemispheres nor within the dwayne, m idbrain, and thalami. There is no abnormal signal abnormality in the periventricular white matter. There is no significant focal signal abnormality evident on diffusion imaging to suggest acute ischem ic event. PITUITARY GLAND: No mass nor parasellar abnormality. No obvious abnormality in the cavernous sinuses. FLOW VOIDS: The expected flow void are noted. No evidence of obvious aneurysm nor obvious vascular ma lformation. PARANASAL SINUSES: The visualized paranasal sinuses appear unremarkable. No obvious finding ORBITS: No obvious findings. IMPRESSION: No significant intracranial findings on this noninfused MRI scan of the brain. DATA REPOSITORY:
[2021-02-21] MEDS: Lactated Ringers 1,000 ML 125 ML IV ×3 (03:40→22:35)
[2021-02-21] MEDS: Sodium Bicarbonate 650 MG TAB PO ×2 (07:38→14:40)
[2021-02-21] MEDS: Calcium Carbonate 1.5 GM TAB PO ×2 (07:38→19:51)
[2021-02-21] MEDS: PIPERACILLIN/TAZO 2.25 GM in Normal Saline 50 ML IVPB ×3 (07:38→23:48)
[2021-02-21] MEDS: Normal Saline Flush 10 ML SYR IVP ×4 (07:38→19:52)
[2021-02-21 07:46] LABS: Abs Immature Grans 0.21 10^3/uL (0.0-0.06); Absolute Basophil Count 0.06 10^3/uL (0.0-0.2); Absolute Eosinophil Count 0.53 10^3/uL (0.0-0.7); Absolute Monocyte Count 1.39 10^3/uL (0.1-0.8); Basophils % 0.3; Eosinophils % 2.8; HCT 24.6 % (36.0-46.0); HGB 7.7 g/dL (11.2-15.7); Immature Grans % 1.1; Lymphocytes % 5.7; MCH 22.4 pg (27.0-33.0); MCHC 31.3 % (32.0-36.0); MCV 71.5 fL (80-95); MPV 8.2 fL (8.0-11.0); Monocytes % 7.3; Neutrophils % 82.8; Nucleated RBC 0 %; Platelet Count 624 10^3/uL (130-400); RBC 3.44 10^6/uL (3.93-5.22); RDW 24.2 % (11.7-14.6); RDW-SD 60.1 fL; WBC 19.03 10^3/uL (4.4-10.8)
[2021-02-21 08:01] LABS: ALT 20 U/L (14-59); AST 17 U/L (15-37); Albumin 1.5 g/dL (3.4-5.0); Alkaline Phosphatase 73 U/L (46-116); Bilirubin, Direct 0.1 mg/dL (0.0-0.2); Bilirubin, Total 0.4 mg/dL (0.2-1.0); Calcium 7.6 mg/dL (8.5-10.1); Chloride 113 mmol/L (98-107); Estimated GFR 8.99 (mL/min/1.73m2); Glucose 106 mg/dL (74-106); Magnesium 1.8 mg/dL (1.8-2.4); Potassium 3.4 mmol/L (3.5-5.1); Sodium 143 mmol/L (136-145); Total Protein 7.4 g/dL (6.4-8.2)
[2021-02-21 08:06] LABS: BUN 87 mg/dL (7-18); CREATININE 4.8 mg/dL (0.55-1.02)
[2021-02-21 08:32] LABS: Absolute Lymphocyte Count 1.08 10^3/uL (1.2-3.4); Absolute Neutrophil Count 15.76 10^3/uL (1.2-6.7)
[2021-02-21 08:33] LABS: Anisocytosis 1+; Hypochromasia 1+; Microcytosis 1+; Polychromasia Present
[2021-02-21] MEDS: Potassium Chloride 20 MEQ TABCR PO (10:09)
--- NOTE | 2021-02-21 10:22 | NUR.NOTE ---
Nursing Note: At 1020 on 02/21/21, this RN answered a call from the pt.'s daughter. Pt.'s daughter was updated regarding pt.'s mentation, VS, pain level, head to toe assessment, results of the brain MRI scan, plan of care, etc. Pt.'s daughter verbalized understanding and presented with a few questions that were answered. Pt.'s daughter also asking if the pt. is well enough to be transferred to another hospital where she can come and visit her mother (pt.'s daughter is unvaccinated and is aware of [facility]'s visitor policy). RN informed pt.'s daughter that that is not a decision the RN can make and that the decision must be made by the MD. Pt.'s daughter also asking that the pt. call her and put her on speaker phone when the MD is in the room, so that she can be a part of the conversation. RN informed the pt. that they would pass along both messages to the charge nurse and the MD. Pt.'s daughter verbalized understanding. RN will reassess as necessary.
--- NOTE | 2021-02-21 10:50 | PDOC.CMPRO ---
- If Service Date Differs Date of service: 02/21/21 Time of Service: 10:50 Care Management Progress Note S/O: Barb went [place] [facility] [place] of nephrostomy tubes. Per provider, patient is currently medically complex with multiple co-morbidities; please refer to MD note for more detailed information. CM continues to follow. A: 70 year old female admitted to [facility] 02/18/21 for BRITNI, anemia, UTI P: Anticipate Barb will be discharged home when medically cleared by provider; plan remains undetermined at this time. She will transport via private vehicle with family and follow up with community providers and discharge plan of care as prescribed. She continues to decline [facility] services following discharge. Patient does not have a PCP and will need PCP attachment arranged by CM prior to discharge. CM continues to follow.
--- NOTE | 2021-02-21 15:27 | W.PM.PROGNOT ---
Date of Service Date of service: 02/21/21 Time of Service: 15:27 Assessment and Plan Assessment and plan (1) Sepsis: Status: Acute Assessment and plan: Due to Group G strep UTI, present on admission, complicated by bladder tumor and B hydronephrosis. S/p B nephrostomies yesterday at [facility]. Blood cx 02/18/21 1/4: Coag negative staph. Likely contaminant. Repeat blood cultures are negative. D/c vanco. Continue zosyn due to concerns for post-obstructive PNA as well. Continue monitoring CBC. (2) Acute UTI: Status: Acute Assessment and plan: As above (3) Bladder mass: Status: Acute Assessment and plan: S/p cysto and bx 02/19/21. Pathology pending. Ureteral stent placement unsuccessful at that time. Now she is s/p B nephroureteral stents/nephrostomies. Suspected malignancy, creating obstructive uropathy. Await bx results. (4) Obstructive uropathy: Status: Acute Assessment and plan: As above (5) Lung mass: Status: Acute Assessment and plan: with collapse of LLL as the mass is obstructive. Continue zosyn for post-obstructive PNA. Needs outpatient referral for bronch/stent - discussed this with the patient and daughter today. (6) BRITNI (acute kidney injury): Status: Acute Assessment and plan: Predominantly post-obstructive, however probably also somewhat prerenal as anemic/dehydrated and intrinsic due to UTI. Improving post B nephrostomies. Hyperkalemia has resolved. Actually, hypokalemic today. Continue IVF. (7) Anemia due to acute blood loss: Status: Acute Assessment and plan: S/p transfusion of 2 units of pRBCs so far on this admission. Will not transfuse today - will recheck H/H in am. (8) Airway obstruction: Status: Acute Assessment and plan: As above (9) Thrombocytosis: Status: Acute Assessment and plan: Likely reactive. Will monitor. (10) Folate deficiency: Status: Acute Assessment and plan: Replete (11) DVT prophylaxis: Status: Acute Assessment and plan: SCDs. If H/H stable tomorrow, would consider starting chemical anticoagulation. (12) Discharge planning issues: Status: Acute Assessment and plan: Full code Palliative care consulted. Anticipate discharge home on Friday or over the weekend if Cr continues to improve. Subjective Subjective Interval history since last seen: Barb is s/p B percutaneous nephroureteral stents yesterday at [facility]. Tolerated well. Both are putting out clear urine. She denies pain unless she moves, when it feels like a sore muscle. Denies dizziness, chest pain, shortness of breath, nausea. Exam Narrative Exam Narrative: General: Anxious appearing middle-aged female, A&Ox3, fully able to have a conversation and comprehend information I am giving her HEENT: EOMI, MMM Heart: RRR, no m/r/g Lungs: CTAB Abdomen: soft, nontender, nondisteded Extremities: no edema, 1+ pedal pulses B Objective Last Vital Signs Temp 37.1 C 02/21/21 12:07 Pulse 85 02/21/21 12:07 Resp 15 02/21/21 12:07 BP 126/73 02/21/21 12:07 Pulse Ox 98 02/21/21 12:07 Laboratory Results - last 24 hr 02/19/21 02/20/21 02/21/21 06:20 20:15 07:30 WBC RBC Hgb 8.6 L Hct 28.1 L D MCV MCH MCHC RDW Plt Count MPV Immature Gran % Neutrophils % Lymphocytes % Monocytes % Eosinophils % Basophils % Nucleated RBC % Absolute Neutrophils Absolute Lymphocytes Absolute Monocytes Absolute Eosinophils Absolute Basophils RBC Morphology Polychromasia Hypochromasia Anisocytosis Microcytosis Sodium 143 Potassium 3.4 L Chloride 113 H Carbon Dioxide 14.0 L Anion Gap 16.0 H BUN 87 H* Creatinine 4.8 H* Estimated GFR/1.73 m2 8.99 Glucose 106 Calcium 7.6 L Magnesium 1.8 Total Bilirubin 0.4 Conjugated Bilirubin 0.1 AST 17 ALT 20 Alkaline Phosphatase 73 Total Protein 7.4 Albumin 1.5 L Patient ABO/Rh A Positive Antibody Screen NEGATIVE Crossmatch See Detail 02/21/21 07:30 WBC 19.03 H RBC 3.44 L Hgb 7.7 L Hct 24.6 L MCV 71.5 L MCH 22.4 L MCHC 31.3 L RDW 24.2 H Plt Count 624 H MPV 8.2 Immature Gran % 1.1 Neutrophils % 82.8 Lymphocytes % 5.7 Monocytes % 7.3 Eosinophils % 2.8 Basophils % 0.3 Nucleated RBC % 0 Absolute Neutrophils 15.76 H Absolute Lymphocytes 1.08 L Absolute Monocytes 1.39 H Absolute Eosinophils 0.53 Absolute Basophils 0.06 RBC Morphology See Below Polychromasia Present Hypochromasia 1+ Anisocytosis 1+ Microcytosis 1+ Sodium Potassium Chloride Carbon Dioxide Anion Gap BUN Creatinine Estimated GFR/1.73 m2 Glucose Calcium Magnesium Total Bilirubin Conjugated Bilirubin AST ALT Alkaline Phosphatase Total Protein Albumin Patient ABO/Rh Antibody Screen Crossmatch
[2021-02-21] MEDS: Normal Saline 500 ML 100 ML IV (16:02)
--- NOTE | 2021-02-21 17:59 | CHAPLAIN ---
I had a brief visit with Barb. She asked if I visit all patients, and seemed to wonder why I was visiting her. She was pleasant but did not seem interested in further conversation. I explained my role and offered support.
[2021-02-21] MEDS: Acetaminophen 325 MG TAB 650 MG PO (19:51)
[2021-02-22] MEDS: Acetaminophen 325 MG TAB 650 MG PO ×3 (00:30→22:57)
[2021-02-22 03:15] VITALS: BP 121/74; PULSE 81; RESP 20; TEMP 36.9; O2SAT 94
[2021-02-22] MEDS: Normal Saline Flush 10 ML SYR IVP ×3 (06:20→20:29)
[2021-02-22 07:10] LABS: HCT 24.9 % (36.0-46.0); HGB 7.7 g/dL (11.2-15.7); MCH 21.9 pg (27.0-33.0); MCHC 30.9 % (32.0-36.0); MCV 70.7 fL (80-95); MPV 8.8 fL (8.0-11.0); Nucleated RBC 0 %; RBC 3.52 10^6/uL (3.93-5.22); RDW 25.4 % (11.7-14.6); RDW-SD 63.6 fL; WBC 19.93 10^3/uL (4.4-10.8)
[2021-02-22 07:24] LABS: Platelet Count 756 10^3/uL (130-400)
[2021-02-22 07:36] LABS: Absolute Lymphocyte Count 1.59 10^3/uL (1.2-3.4); Absolute Neutrophil Count 16.54 10^3/uL (1.2-6.7); Anion Gap 13.1 mmol/L (3-11); BUN 56 mg/dL (7-18); CO2 17.9 mmol/L (21.0-32.0); Calcium 7.8 mg/dL (8.5-10.1); Chloride 112 mmol/L (98-107); Estimated GFR 12.54 (mL/min/1.73m2); Glucose 92 mg/dL (74-106); Magnesium 1.4 mg/dL (1.8-2.4); Potassium 3.7 mmol/L (3.5-5.1); Sodium 143 mmol/L (136-145)
[2021-02-22 07:37] LABS: Anisocytosis 2+; Diff Comment Manual Differential; Hypochromasia 2+; Microcytosis 2+
[2021-02-22 07:38] LABS: CREATININE 3.6 mg/dL (0.55-1.02)
[2021-02-22] MEDS: Normal Saline 500 ML 30 ML IV (07:39)
[2021-02-22] MEDS: PIPERACILLIN/TAZO 2.25 GM in Normal Saline 50 ML IVPB ×2 (07:39→16:22)
[2021-02-22 07:45] VITALS: BP 112/66; PULSE 82; RESP 17; TEMP 36.5; O2SAT 97
--- NOTE | 2021-02-22 08:01 | W.PM.PROGNOT ---
Date of Service Date of service: 02/22/21 Time of Service: 08:02 Assessment and Plan Assessment and plan (1) Bilateral hydronephrosis: Status: Acute Assessment and plan: Renal function is gradually improving. The fact that there has not been a rapid decline in her creatinine speaks to the chronicity of her obstructive process. Her bladder biopsy results are still pending. Once a tissue diagnosis has been obtained, we can consider our options. If she does have a primary bladder malignancy, we generally recommend a referral to medical oncology as well has a surgical urooncologist as the primary treatment is systemic chemotherapy followed by radical cystectomy with urinary diversion. Subjective Subjective Interval history since last seen: The patient has received bilateral nephrostomy tubes. She had some insertion site discomfort yesterday, but feels much better today. Exam Narrative Exam Narrative: She looks well. She does not appear toxic Her vital signs are documented elsewhere The drainage from her nephrostomy tubes is clear. Her urine output is not excessive Her serum creatinine is down to 3.6 Objective Last Vital Signs Temp 36.9 C 02/22/21 03:15 Pulse 81 02/22/21 03:15 Resp 20 02/22/21 03:15 BP 121/74 02/22/21 03:15 Pulse Ox 94 02/22/21 03:15 Laboratory Results - last 24 hr 02/21/21 02/21/21 02/22/21 07:30 07:30 06:27 WBC 19.03 H RBC 3.44 L Hgb 7.7 L Hct 24.6 L MCV 71.5 L MCH 22.4 L MCHC 31.3 L RDW 24.2 H Plt Count 624 H MPV 8.2 Immature Gran % 1.1 Neutrophils % 82.8 Lymphocytes % 5.7 Monocytes % 7.3 Eosinophils % 2.8 Basophils % 0.3 Nucleated RBC % 0 Absolute Neutrophils 15.76 H Absolute Lymphocytes 1.08 L Absolute Monocytes 1.39 H Absolute Eosinophils 0.53 Absolute Basophils 0.06 RBC Morphology See Below Polychromasia Present Hypochromasia 1+ Anisocytosis 1+ Microcytosis 1+ Sodium 143 143 Potassium 3.4 L 3.7 Chloride 113 H 112 H Carbon Dioxide 14.0 L 17.9 L Anion Gap 16.0 H 13.1 H BUN 87 H* 56 H D Creatinine 4.8 H* 3.6 H* D Estimated GFR/1.73 m2 8.99 12.54 Glucose 106 92 Calcium 7.6 L 7.8 L Magnesium 1.8 1.4 L Total Bilirubin 0.4 Conjugated Bilirubin 0.1 AST 17 ALT 20 Alkaline Phosphatase 73 Total Protein 7.4 Albumin 1.5 L 02/22/21 06:27 WBC 19.93 H RBC 3.52 L Hgb 7.7 L Hct 24.9 L MCV 70.7 L MCH 21.9 L MCHC 30.9 L RDW 25.4 H Plt Count 756 H* MPV 8.8 Immature Gran % 0.0 Neutrophils % 83.0 Lymphocytes % 8.0 Monocytes % 6.0 Eosinophils % 2.0 Basophils % 1.0 Nucleated RBC % 0 Absolute Neutrophils 16.54 H Absolute Lymphocytes 1.59 Absolute Monocytes 1.20 H Absolute Eosinophils 0.40 Absolute Basophils 0.20 RBC Morphology See Below Polychromasia Hypochromasia 2+ Anisocytosis 2+ Microcytosis 2+ Sodium Potassium Chloride Carbon Dioxide Anion Gap BUN Creatinine Estimated GFR/1.73 m2 Glucose Calcium Magnesium Total Bilirubin Conjugated Bilirubin AST ALT Alkaline Phosphatase Total Protein Albumin
[2021-02-22] MEDS: MAGNESIUM SULFATE 2 GM/50 ML BAG IVPB (08:47)
[2021-02-22 08:52] LABS: Albumin 1.5 g/dL (3.4-5.0)
--- NOTE | 2021-02-22 09:27 | PDOC.CMPRO ---
- If Service Date Differs Date of service: 02/22/21 Time of Service: 09:28 Care Management Progress Note S/O: Per provider, per MD Barb will discharge home as soon as tomorrow with new orders for home health nursing (will require MD to follow orders), and referrals for pulmonology, [place] [facility] [place] and [place]ology. Barb has previously declined [facility] support-this will need to be reviewed. She will also have bloodwork next Friday-undetermined who will follow those orders as well. CM continues to follow. A: 70 year old female admitted to [facility] 02/18/21 for BRITNI, anemia, UTI P: Anticipate Barb will be discharged home when medically cleared by provider; plan remains undetermined at this time. She will transport via private vehicle with family and follow up with community providers and discharge plan of care as prescribed. She continues to decline [facility] services following discharge. Patient does not have a PCP and will need PCP attachment arranged by CM prior to discharge. CM continues to follow.
[2021-02-22 11:45] VITALS: BP 122/72; PULSE 84; RESP 16; TEMP 36.4; O2SAT 98
--- NOTE | 2021-02-22 14:42 | W.PM.PROGNOT ---
Date of Service Date of service: 02/22/21 Time of Service: 14:43 Assessment and Plan Assessment and plan (1) Sepsis: Status: Acute Assessment and plan: Due to Group G strep UTI, present on admission, complicated by bladder tumor and B hydronephrosis. S/p B nephrostomies 02/20/21 at [facility] [place]. Blood cx 02/18/21 1/4: Coag negative staph. Likely contaminant. Repeat blood cultures are negative. Continue zosyn due to concerns for post-obstructive PNA as well. Continue monitoring CBC. (2) Acute UTI: Status: Acute Assessment and plan: As above (3) Bladder mass: Status: Acute Assessment and plan: S/p cysto and bx 02/19/21. Pathology still pending. Ureteral stent placement unsuccessful at that time. Now she is s/p B nephroureteral stents/nephrostomies. Suspected malignancy, creating obstructive uropathy. Await bx results. (4) Obstructive uropathy: Status: Acute Assessment and plan: As above Cr improving. Plan is to discharge home tomorrow even if Cr is not back to baseline because the expectation is that it will continue to improve. Will need f/u labs. (5) Lung mass: Status: Acute Assessment and plan: with collapse of LLL as the mass is obstructive. Continue zosyn for post-obstructive PNA. Needs outpatient referral for bronch/stent - discussed this with the patient and daughter today. (6) BRITNI (acute kidney injury): Status: Acute Assessment and plan: Predominantly post-obstructive, however probably also somewhat prerenal as anemic/dehydrated and intrinsic due to UTI. Improving post B nephrostomies. As above. Plan to d/c home tomorrow even if Cr not at baseline as it is expected to continue improving. Hyperkalemia has resolved. Will also replete magnesium. Continue IVF. (7) Anemia due to acute blood loss: Status: Acute Assessment and plan: S/p transfusion of 2 units of pRBCs so far on this admission. Will not transfuse today - will recheck H/H in am. (8) Airway obstruction: Status: Acute Assessment and plan: As above (9) Thrombocytosis: Status: Acute Assessment and plan: Likely reactive. Will monitor. (10) Folate deficiency: Status: Acute Assessment and plan: Replete (11) DVT prophylaxis: Status: Acute Assessment and plan: SCDs. If H/H stable tomorrow, would consider starting chemical anticoagulation. (12) Discharge planning issues: Status: Acute Assessment and plan: Full code Palliative care consulted. Anticipate discharge home tomorrow. Will need referrals to home health nursing, pulmonology, urology at [facility] [place], oncology. Bloodwork next Friday. Subjective Subjective Interval history since last seen: Feels better. Had a bout of urinary urgency today - could not urinate - it passed. Denies dizziness, chest pain, shortness of breath, nausea, abdominal pain. Excited to hear she might be going home tomorrow. Exam Narrative Exam Narrative: General: middle-aged female, A&Ox3, looks comfortable in bed HEENT: EOMI, MMM Heart: RRR, no m/r/g Lungs: CTAB Abdomen: soft, nontender, nondisteded; back: B nephrostomy tubes attached to farias catheter bags Extremities: no edema, 1+ pedal pulses B Objective Last Vital Signs Temp 36.4 C L 02/22/21 11:45 Pulse 84 02/22/21 11:45 Resp 16 02/22/21 11:45 BP 122/72 02/22/21 11:45 Pulse Ox 98 02/22/21 11:45 Laboratory Results - last 24 hr 02/22/21 02/22/21 06:27 06:27 WBC 19.93 H RBC 3.52 L Hgb 7.7 L Hct 24.9 L MCV 70.7 L MCH 21.9 L MCHC 30.9 L RDW 25.4 H Plt Count 756 H* MPV 8.8 Immature Gran % 0.0 Neutrophils % 83.0 Lymphocytes % 8.0 Monocytes % 6.0 Eosinophils % 2.0 Basophils % 1.0 Nucleated RBC % 0 Absolute Neutrophils 16.54 H Absolute Lymphocytes 1.59 Absolute Monocytes 1.20 H Absolute Eosinophils 0.40 Absolute Basophils 0.20 RBC Morphology See Below Hypochromasia 2+ Anisocytosis 2+ Microcytosis 2+ Sodium 143 Potassium 3.7 Chloride 112 H Carbon Dioxide 17.9 L Anion Gap 13.1 H BUN 56 H D Creatinine 3.6 H* D Estimated GFR/1.73 m2 12.54 Glucose 92 Calcium 7.8 L Magnesium 1.4 L Albumin 1.5 L
[2021-02-22 14:55] VITALS: BP 147/83; PULSE 80; RESP 16; TEMP 36.5; O2SAT 96
[2021-02-22 20:40] VITALS: O2SAT 96
[2021-02-22 23:27] VITALS: BP 130/76; PULSE 87; RESP 17; TEMP 37.2; O2SAT 94
[2021-02-23] VITALS (13 sets, daily range): BP systolic 124–161; BP diastolic 66–87; PULSE 76–88; RESP 15–22; TEMP 35.3–37.2; O2SAT 96–98
[2021-02-23] MEDS: Lactated Ringers 1,000 ML 125 ML IV ×2 (00:20→22:58)
[2021-02-23] MEDS: PIPERACILLIN/TAZO 2.25 GM in Normal Saline 50 ML IVPB ×3 (01:00→18:06)
[2021-02-23] MEDS: Normal Saline Flush 10 ML SYR IVP ×3 (01:01→19:48)
[2021-02-23] MEDS: Acetaminophen 325 MG TAB 650 MG PO ×3 (06:03→19:47)
--- NOTE | 2021-02-23 06:37 | W.PM.PROGNOT ---
Date of Service Date of service: 02/23/21 Time of Service: 06:37 Assessment and Plan Assessment and plan (1) Bilateral hydronephrosis: Status: Acute Assessment and plan: If she is to be discharged today, I would suggest home health be enlisted to help with her nephrostomy tube dressing changes. I usually suggest 2 to 3 times a week. She will not need any dietary or activity restrictions. She will need instructions regarding nephrostomy tube drainage bag care. She will need some type of follow-up to review her bladder biopsy. She could either come into the office or we could arrange a conference call with the patient and her daughter at the same time. Her daughter is not vaccinated and would not be able to attend an in person visit, so I believe a phone call would be most appropriate. Her daughter works from home on Mondays and Fridays, so I will ask my office to arrange a telehealth visit for this coming Friday. Her follow-up will really depend on what that biopsy shows. Subjective Subjective Interval history since last seen: She continues to feel better Exam Narrative Exam Narrative: Vital signs are stable Her urine output is adequate (2800 cc from nephrostomy tubes in 24 hours) Her renal function and other lab work is pending this morning Her bladder biopsy from Friday is still pending Objective Last Vital Signs Temp 35.3 C L 02/23/21 03:53 Pulse 82 02/23/21 03:53 Resp 16 02/23/21 03:53 BP 129/66 02/23/21 03:53 Pulse Ox 96 02/23/21 03:53 Laboratory Results - last 24 hr 02/22/21 02/22/21 06:27 06:27 WBC 19.93 H RBC 3.52 L Hgb 7.7 L Hct 24.9 L MCV 70.7 L MCH 21.9 L MCHC 30.9 L RDW 25.4 H Plt Count 756 H* MPV 8.8 Immature Gran % 0.0 Neutrophils % 83.0 Lymphocytes % 8.0 Monocytes % 6.0 Eosinophils % 2.0 Basophils % 1.0 Nucleated RBC % 0 Absolute Neutrophils 16.54 H Absolute Lymphocytes 1.59 Absolute Monocytes 1.20 H Absolute Eosinophils 0.40 Absolute Basophils 0.20 RBC Morphology See Below Hypochromasia 2+ Anisocytosis 2+ Microcytosis 2+ Sodium 143 Potassium 3.7 Chloride 112 H Carbon Dioxide 17.9 L Anion Gap 13.1 H BUN 56 H D Creatinine 3.6 H* D Estimated GFR/1.73 m2 12.54 Glucose 92 Calcium 7.8 L Magnesium 1.4 L Albumin 1.5 L
[2021-02-23 07:10] LABS: Abs Immature Grans 0.21 10^3/uL (0.0-0.06); Absolute Basophil Count 0.07 10^3/uL (0.0-0.2); Absolute Eosinophil Count 0.72 10^3/uL (0.0-0.7); Absolute Monocyte Count 1.12 10^3/uL (0.1-0.8); Basophils % 0.4; HCT 22.8 % (36.0-46.0); Immature Grans % 1.2; Lymphocytes % 11.8; MCH 22.4 pg (27.0-33.0); MCHC 30.7 % (32.0-36.0); MCV 72.8 fL (80-95); MPV 8.6 fL (8.0-11.0); Monocytes % 6.2; Neutrophils % 76.4; Nucleated RBC 0 %; Platelet Count 618 10^3/uL (130-400); RBC 3.13 10^6/uL (3.93-5.22); RDW 24.9 % (11.7-14.6); RDW-SD 64.5 fL; WBC 18.03 10^3/uL (4.4-10.8)
[2021-02-23 07:20] LABS: Anion Gap 10.8 mmol/L (3-11); BUN 42 mg/dL (7-18); CO2 21.2 mmol/L (21.0-32.0); Calcium 7.5 mg/dL (8.5-10.1); Chloride 110 mmol/L (98-107); Estimated GFR 15.47 (mL/min/1.73m2); Glucose 91 mg/dL (74-106); Magnesium 1.6 mg/dL (1.8-2.4); Potassium 3.2 mmol/L (3.5-5.1); Sodium 142 mmol/L (136-145)
[2021-02-23 07:22] LABS: Absolute Lymphocyte Count 2.13 10^3/uL (1.2-3.4); Absolute Neutrophil Count 13.77 10^3/uL (1.2-6.7)
[2021-02-23 07:29] LABS: Anisocytosis 2+; Diff Comment RBC Morph Reviewed; Hypochromasia 2+; Microcytosis 2+
[2021-02-23] MEDS: Potassium Chloride 20 MEQ TABCR 40 MEQ PO (08:30)
[2021-02-23] MEDS: MAGNESIUM SULFATE 2 GM/50 ML BAG IVPB (08:30)
[2021-02-23] MEDS: POTASSIUM CHLORIDE 20 MEQ/100 ML BAG 50 MEQ IVPB (09:17)
--- NOTE | 2021-02-23 10:14 | W.PULMPROG ---
General Date Of Service Date of service: 02/23/21 Time of Service: 10:16 Requesting physician: Jaycee Mckeon Subjective Note Note: Patient not seen today. Await path results from bladder biopsy. I have booked her into my schedule to be seen as an outpatient. Continue IS and VibraPEP on discharge. [place] [facility] [place] obstruction. Objective Last Vital Signs Temp 36.8 C 02/23/21 09:10 Pulse 76 02/23/21 09:10 Resp 16 02/23/21 09:10 BP 124/67 02/23/21 09:10 Pulse Ox 96 02/23/21 09:10 Laboratory Results - last 24 hr 02/23/21 02/23/21 02/23/21 06:30 06:30 09:46 WBC 18.03 H RBC 3.13 L Hgb 7.0 L Hct 22.8 L MCV 72.8 L MCH 22.4 L MCHC 30.7 L RDW 24.9 H Plt Count 618 H MPV 8.6 Immature Gran % 1.2 Neutrophils % 76.4 Lymphocytes % 11.8 Monocytes % 6.2 Eosinophils % 4.0 Basophils % 0.4 Nucleated RBC % 0 Absolute Neutrophils 13.77 H Absolute Lymphocytes 2.13 Absolute Monocytes 1.12 H Absolute Eosinophils 0.72 H Absolute Basophils 0.07 RBC Morphology See Below Hypochromasia 2+ Anisocytosis 2+ Microcytosis 2+ Sodium 142 Potassium 3.2 L Chloride 110 H Carbon Dioxide 21.2 Anion Gap 10.8 BUN 42 H D Creatinine 3.0 H Estimated GFR/1.73 m2 15.47 Glucose 91 Calcium 7.5 L Magnesium 1.6 L Patient ABO/Rh A Positive Crossmatch See Detail Results Medications Medications: Active Medications Generic Name Dose Route Start Last Admin Trade Name Freq PRN Reason Stop Dose Admin Acetaminophen 650 mg 02/19/21 18:03 02/23/21 06:03 Acetaminophen 325 Mg Tab PO 650 mg Q6H PRN PRN Administration Acetaminophen 650 mg 02/23/21 08:00 Acetaminophen 325 Mg Tab PO 02/24/21 23:59 TODAY THOMAS Dimethicone/Zinc Oxide 0 gm 02/18/21 19:04 Dandre Protect Cream 142 Gm Tube TP PRN PRN Diphenhydramine HCl 0 mg 02/23/21 08:00 Diphenhydramine 25 Mg Cap PO 02/23/21 23:59 TODAY THOMAS Hydromorphone HCl 0.25 mg 02/19/21 18:40 Hydromorphone 2 Mg/Ml Vial IVP Q6H PRN PRN Piperacillin Sod/Tazobactam 50 mls @ 100 mls/hr 02/19/21 16:00 02/23/21 07:45 Sod 2.25 gm/ Sodium Chloride IVPB 100 mls/hr Q8H THOMAS Administration Protocol Ringer's Solution 1,000 mls @ 125 mls/hr 02/19/21 16:45 02/23/21 02:16 IV 125 mls/hr INFUSION THOMAS Infusion Sodium Chloride 500 mls @ 0 mls/hr 02/21/21 16:15 02/22/21 07:39 Saline 500ml Bag IV 30 mls/hr PRN PRN Administration As Directed IV Miscellaneous Supplies 1 each 02/18/21 17:00 Iv Access IV DIRECTED THOMAS Sodium Chloride 0 ml 02/19/21 20:00 02/23/21 07:45 Normal Saline Flush 10 Ml Syr IVP 10 ml BID THOMAS Administration Sodium Chloride 0 ml 02/19/21 15:57 02/23/21 01:01 Normal Saline Flush 10 Ml Syr IVP 20 ml PRN PRN Administration Allergies No Known Allergies Allergy (Unverified 02/18/21 16:25) Labs Result Diagrams: 02/23/21 06:30 02/23/21 06:30 Labs: 02/20/21 07:35 Blood Blood Culture - Preliminary NO GROWTH 72 HOURS 02/20/21 07:30 Blood Blood Culture - Preliminary NO GROWTH 72 HOURS 02/18/21 18:20 Blood Blood Culture - Preliminary NO GROWTH 96 HOURS 02/18/21 16:45 Urine - Reflex from Ua Urine Culture - Final Group G Streptococcus Escherichia coli Gram Positive & Negative Trupti 02/18/21 18:30 Blood Blood Culture - Final Staphylococcus Epidermidis Laboratory Tests Range/Units 02/18/21 02/18/21 02/18/21 16:45 17:12 17:12 WBC (4.4-10.8) 10^3/uL 26.86 H* RBC (3.93-5.22) 10^6/uL 4.02 Hgb (11.2-15.7) g/dL 7.7 L Hct (36.0-46.0) % 26.9 L MCV (80-95) fL 66.9 L MCH (27.0-33.0) pg 19.2 L MCHC (32.0-36.0) % 28.6 L RDW (11.7-14.6) % 20.8 H Plt Count (130-400) 10^3/uL 1115 H* MPV (8.0-11.0) fL 8.6 Reticulocyte % (Auto) (0.5-2.4) % Immature Gran % 1.1 Neutrophils % 83.0 Lymphocytes % 7.4 Monocytes % 6.1 Eosinophils % 2.1 Basophils % 0.3 Nucleated RBC % % 0 Absolute Neutrophils (1.2-6.7) 10^3/uL 22.29 H Absolute Lymphocytes (1.2-3.4) 10^3/uL 1.99 Absolute Monocytes (0.1-0.8) 10^3/uL 1.64 H Absolute Eosinophils (0.0-0.7) 10^3/uL 0.56 Absolute Basophils (0.0-0.2) 10^3/uL 0.08 RBC Morphology See Below Polychromasia Hypochromasia 2+ Anisocytosis 2+ Microcytosis 3+ VBG Lactate (0.6-1.4) mmol/L Sodium (136-145) mmol/L 131 L Potassium (3.5-5.1) mmol/L 5.3 H Chloride (98-107) mmol/L 100 Carbon Dioxide (21.0-32.0) mmol/L 13.5 L Anion Gap (3-11) mmol/L 17.5 H BUN (7-18) mg/dL 134 H* Creatinine (0.55-1.02) mg/dL 7.6 H* Estimated GFR/1.73 m2 (mL/min/1.73m2) 5.29 Glucose (74-106) mg/dL 129 H Calcium (8.5-10.1) mg/dL 9.2 Phosphorus (2.6-4.7) mg/dL Magnesium (1.8-2.4) mg/dL Iron (50-170) ug/dL TIBC (250-450) ug/dL Transferrin % Sat (15-50) % Ferritin (8-252) ng/mL Total Bilirubin (0.2-1.0) mg/dL 0.2 Conjugated Bilirubin (0.0-0.2) mg/dL AST (15-37) U/L 18 ALT (14-59) U/L 27 Alkaline Phosphatase (46-116) U/L 105 Total Protein (6.4-8.2) g/dL 10.5 H Albumin (3.4-5.0) g/dL 2.3 L Lipase (73-393) U/L 135 Vitamin B12 (193-986) pg/mL Folate (8.6-20.0) ng/mL TSH (0.36-3.74) uIU/mL Urine Color (Yellow) Brown Urine Clarity (Clear) Cloudy Urine pH (5-8) 7.0 Ur Specific [place] (1.005-1.025) 1.025 Urine Protein (Negative) mg/dL >=300 H Urine Ketones (Negative) mg/dL Negative Urine Blood (Negative) Large H Urine Nitrite (Negative) Negative Urine Bilirubin (Negative) Negative Urine Urobilinogen (Up TO 0.2) EU/dL 0.2 Ur Leukocyte Esterase (Negative) Large H Urine RBC (0-2) HPF >50 H Urine WBC (0-5) HPF >50 H Ur Epithelial Cells Not Applicable Urine Crystals Not Applicable Urine Bacteria (Negative) HPF Many Urine Mucus Not Applicable Ur Culture Indicated? Yes Urine Glucose (Negative) mg/dL Negative COVID-19 Source SARS-CoV-2 (PCR) (Negative) Path Cons Comment SEE COMMENT Patient ABO/Rh Antibody Screen Crossmatch Range/Units 02/18/21 02/18/21 02/18/21 17:12 17:12 17:12 WBC (4.4-10.8) 10^3/uL RBC (3.93-5.22) 10^6/uL Hgb (11.2-15.7) g/dL Hct (36.0-46.0) % MCV (80-95) fL MCH (27.0-33.0) pg MCHC (32.0-36.0) % RDW (11.7-14.6) % Plt Count (130-400) 10^3/uL MPV (8.0-11.0) fL Reticulocyte % (Auto) (0.5-2.4) % Immature Gran % Neutrophils % Lymphocytes % Monocytes % Eosinophils % Basophils % Nucleated RBC % % Absolute Neutrophils (1.2-6.7) 10^3/uL Absolute Lymphocytes (1.2-3.4) 10^3/uL Absolute Monocytes (0.1-0.8) 10^3/uL Absolute Eosinophils (0.0-0.7) 10^3/uL Absolute Basophils (0.0-0.2) 10^3/uL RBC Morphology Polychromasia Hypochromasia Anisocytosis Microcytosis VBG Lactate (0.6-1.4) mmol/L Sodium (136-145) mmol/L Potassium (3.5-5.1) mmol/L Chloride (98-107) mmol/L Carbon Dioxide (21.0-32.0) mmol/L Anion Gap (3-11) mmol/L BUN (7-18) mg/dL Creatinine (0.55-1.02) mg/dL Estimated GFR/1.73 m2 (mL/min/1.73m2) Glucose (74-106) mg/dL Calcium (8.5-10.1) mg/dL Phosphorus (2.6-4.7) mg/dL Magnesium (1.8-2.4) mg/dL Iron (50-170) ug/dL 27 L TIBC (250-450) ug/dL 232 L Transferrin % Sat (15-50) % 12 L Ferritin (8-252) ng/mL 855 H Total Bilirubin (0.2-1.0) mg/dL Conjugated Bilirubin (0.0-0.2) mg/dL AST (15-37) U/L ALT (14-59) U/L Alkaline Phosphatase (46-116) U/L Total Protein (6.4-8.2) g/dL Albumin (3.4-5.0) g/dL Lipase (73-393) U/L Vitamin B12 (193-986) pg/mL Folate (8.6-20.0) ng/mL TSH (0.36-3.74) uIU/mL 3.57 Urine Color (Yellow) Urine Clarity (Clear) Urine pH (5-8) Ur Specific [place] (1.005-1.025) Urine Protein (Negative) mg/dL Urine Ketones (Negative) mg/dL Urine Blood (Negative) Urine Nitrite (Negative) Urine Bilirubin (Negative) Urine Urobilinogen (Up TO 0.2) EU/dL Ur Leukocyte Esterase (Negative) Urine RBC (0-2) HPF Urine WBC (0-5) HPF Ur Epithelial Cells Urine Crystals Urine Bacteria (Negative) HPF Urine Mucus Ur Culture Indicated? Urine Glucose (Negative) mg/dL COVID-19 Source SARS-CoV-2 (PCR) (Negative) Path Cons Comment Patient ABO/Rh Antibody Screen Crossmatch Range/Units 02/18/21 02/18/21 02/18/21 17:12 18:00 18:20 WBC (4.4-10.8) 10^3/uL RBC (3.93-5.22) 10^6/uL Hgb (11.2-15.7) g/dL Hct (36.0-46.0) % MCV (80-95) fL MCH (27.0-33.0) pg MCHC (32.0-36.0) % RDW (11.7-14.6) % Plt Count (130-400) 10^3/uL MPV (8.0-11.0) fL Reticulocyte % (Auto) (0.5-2.4) % 1.1 Immature Gran % Neutrophils % Lymphocytes % Monocytes % Eosinophils % Basophils % Nucleated RBC % % Absolute Neutrophils (1.2-6.7) 10^3/uL Absolute Lymphocytes (1.2-3.4) 10^3/uL Absolute Monocytes (0.1-0.8) 10^3/uL Absolute Eosinophils (0.0-0.7) 10^3/uL Absolute Basophils (0.0-0.2) 10^3/uL RBC Morphology Polychromasia Hypochromasia Anisocytosis Microcytosis VBG Lactate (0.6-1.4) mmol/L 1.4 Sodium (136-145) mmol/L Potassium (3.5-5.1) mmol/L Chloride (98-107) mmol/L Carbon Dioxide (21.0-32.0) mmol/L Anion Gap (3-11) mmol/L BUN (7-18) mg/dL Creatinine (0.55-1.02) mg/dL Estimated GFR/1.73 m2 (mL/min/1.73m2) Glucose (74-106) mg/dL Calcium (8.5-10.1) mg/dL Phosphorus (2.6-4.7) mg/dL Magnesium (1.8-2.4) mg/dL Iron (50-170) ug/dL TIBC (250-450) ug/dL Transferrin % Sat (15-50) % Ferritin (8-252) ng/mL Total Bilirubin (0.2-1.0) mg/dL Conjugated Bilirubin (0.0-0.2) mg/dL AST (15-37) U/L ALT (14-59) U/L Alkaline Phosphatase (46-116) U/L Total Protein (6.4-8.2) g/dL Albumin (3.4-5.0) g/dL Lipase (73-393) U/L Vitamin B12 (193-986) pg/mL Folate (8.6-20.0) ng/mL TSH (0.36-3.74) uIU/mL Urine Color (Yellow) Urine Clarity (Clear) Urine pH (5-8) Ur Specific [place] (1.005-1.025) Urine Protein (Negative) mg/dL Urine Ketones (Negative) mg/dL Urine Blood (Negative) Urine Nitrite (Negative) Urine Bilirubin (Negative) Urine Urobilinogen (Up TO 0.2) EU/dL Ur Leukocyte Esterase (Negative) Urine RBC (0-2) HPF Urine WBC (0-5) HPF Ur Epithelial Cells Urine Crystals Urine Bacteria (Negative) HPF Urine Mucus Ur Culture Indicated? Urine Glucose (Negative) mg/dL COVID-19 Source Nasal/Nares SARS-CoV-2 (PCR) (Negative) Negative Path Cons Comment Patient ABO/Rh Antibody Screen Crossmatch Range/Units 02/19/21 02/19/21 02/19/21 06:20 06:20 06:20 WBC (4.4-10.8) 10^3/uL 22.79 H RBC (3.93-5.22) 10^6/uL 3.18 L Hgb (11.2-15.7) g/dL 6.3 L* Hct (36.0-46.0) % 22.0 L MCV (80-95) fL 69.2 L MCH (27.0-33.0) pg 19.8 L MCHC (32.0-36.0) % 28.6 L RDW (11.7-14.6) % 20.9 H Plt Count (130-400) 10^3/uL 880 H* MPV (8.0-11.0) fL 8.6 Reticulocyte % (Auto) (0.5-2.4) % Immature Gran % Neutrophils % Lymphocytes % Monocytes % Eosinophils % Basophils % Nucleated RBC % % Absolute Neutrophils (1.2-6.7) 10^3/uL Absolute Lymphocytes (1.2-3.4) 10^3/uL Absolute Monocytes (0.1-0.8) 10^3/uL Absolute Eosinophils (0.0-0.7) 10^3/uL Absolute Basophils (0.0-0.2) 10^3/uL RBC Morphology Polychromasia Hypochromasia Anisocytosis Microcytosis VBG Lactate (0.6-1.4) mmol/L Sodium (136-145) mmol/L 137 Potassium (3.5-5.1) mmol/L 5.9 H Chloride (98-107) mmol/L 109 H Carbon Dioxide (21.0-32.0) mmol/L 9.4 L Anion Gap (3-11) mmol/L 18.6 H BUN (7-18) mg/dL 123 H* Creatinine (0.55-1.02) mg/dL 6.6 H* Estimated GFR/1.73 m2 (mL/min/1.73m2) 6.23 Glucose (74-106) mg/dL 81 Calcium (8.5-10.1) mg/dL 7.9 L Phosphorus (2.6-4.7) mg/dL Magnesium (1.8-2.4) mg/dL Iron (50-170) ug/dL TIBC (250-450) ug/dL Transferrin % Sat (15-50) % Ferritin (8-252) ng/mL Total Bilirubin (0.2-1.0) mg/dL Conjugated Bilirubin (0.0-0.2) mg/dL AST (15-37) U/L ALT (14-59) U/L Alkaline Phosphatase (46-116) U/L Total Protein (6.4-8.2) g/dL Albumin (3.4-5.0) g/dL Lipase (73-393) U/L Vitamin B12 (193-986) pg/mL 619 Folate (8.6-20.0) ng/mL 7.7 L TSH (0.36-3.74) uIU/mL Urine Color (Yellow) Urine Clarity (Clear) Urine pH (5-8) Ur Specific [place] (1.005-1.025) Urine Protein (Negative) mg/dL Urine Ketones (Negative) mg/dL Urine Blood (Negative) Urine Nitrite (Negative) Urine Bilirubin (Negative) Urine Urobilinogen (Up TO 0.2) EU/dL Ur Leukocyte Esterase (Negative) Urine RBC (0-2) HPF Urine WBC (0-5) HPF Ur Epithelial Cells Urine Crystals Urine Bacteria (Negative) HPF Urine Mucus Ur Culture Indicated? Urine Glucose (Negative) mg/dL COVID-19 Source SARS-CoV-2 (PCR) (Negative) Path Cons Comment Patient ABO/Rh A Positive Antibody Screen NEGATIVE Crossmatch See Detail Range/Units 02/19/21 02/19/21 02/19/21 12:00 16:43 16:43 WBC (4.4-10.8) 10^3/uL RBC (3.93-5.22) 10^6/uL Hgb (11.2-15.7) g/dL 8.8 L D Hct (36.0-46.0) % 30.3 L D MCV (80-95) fL MCH (27.0-33.0) pg MCHC (32.0-36.0) % RDW (11.7-14.6) % Plt Count (130-400) 10^3/uL MPV (8.0-11.0) fL Reticulocyte % (Auto) (0.5-2.4) % Immature Gran % Neutrophils % Lymphocytes % Monocytes % Eosinophils % Basophils % Nucleated RBC % % Absolute Neutrophils (1.2-6.7) 10^3/uL Absolute Lymphocytes (1.2-3.4) 10^3/uL Absolute Monocytes (0.1-0.8) 10^3/uL Absolute Eosinophils (0.0-0.7) 10^3/uL Absolute Basophils (0.0-0.2) 10^3/uL RBC Morphology Polychromasia Hypochromasia Anisocytosis Microcytosis VBG Lactate (0.6-1.4) mmol/L Sodium (136-145) mmol/L Cancelled 139 Potassium (3.5-5.1) mmol/L Cancelled 5.8 H Chloride (98-107) mmol/L Cancelled 110 H Carbon Dioxide (21.0-32.0) mmol/L Cancelled 10.2 L Anion Gap (3-11) mmol/L Cancelled 18.8 H BUN (7-18) mg/dL Cancelled 117 H* Creatinine (0.55-1.02) mg/dL Cancelled 6.4 H* Estimated GFR/1.73 m2 (mL/min/1.73m2) Cancelled 6.45 Glucose (74-106) mg/dL Cancelled 142 H Calcium (8.5-10.1) mg/dL Cancelled 7.7 L Phosphorus (2.6-4.7) mg/dL Magnesium (1.8-2.4) mg/dL 2.3 Iron (50-170) ug/dL TIBC (250-450) ug/dL Transferrin % Sat (15-50) % Ferritin (8-252) ng/mL Total Bilirubin (0.2-1.0) mg/dL Conjugated Bilirubin (0.0-0.2) mg/dL AST (15-37) U/L ALT (14-59) U/L Alkaline Phosphatase (46-116) U/L Total Protein (6.4-8.2) g/dL Albumin (3.4-5.0) g/dL Lipase (73-393) U/L Vitamin B12 (193-986) pg/mL Folate (8.6-20.0) ng/mL TSH (0.36-3.74) uIU/mL Urine Color (Yellow) Urine Clarity (Clear) Urine pH (5-8) Ur Specific [place] (1.005-1.025) Urine Protein (Negative) mg/dL Urine Ketones (Negative) mg/dL Urine Blood (Negative) Urine Nitrite (Negative) Urine Bilirubin (Negative) Urine Urobilinogen (Up TO 0.2) EU/dL Ur Leukocyte Esterase (Negative) Urine RBC (0-2) HPF Urine WBC (0-5) HPF Ur Epithelial Cells Urine Crystals Urine Bacteria (Negative) HPF Urine Mucus Ur Culture Indicated? Urine Glucose (Negative) mg/dL COVID-19 Source SARS-CoV-2 (PCR) (Negative) Path Cons Comment Patient ABO/Rh Antibody Screen Crossmatch Range/Units 10/26/21 10/26/21 10/26/21 07:20 07:20 07:30 WBC (4.4-10.8) 10^3/uL 19.31 H RBC (3.93-5.22) 10^6/uL 3.14 L Hgb (11.2-15.7) g/dL 6.7 L* D Hct (36.0-46.0) % 22.4 L D MCV (80-95) fL 71.3 L MCH (27.0-33.0) pg 21.3 L MCHC (32.0-36.0) % 29.9 L RDW (11.7-14.6) % 24.4 H Plt Count (130-400) 10^3/uL 683 H MPV (8.0-11.0) fL 8.4 Reticulocyte % (Auto) (0.5-2.4) % Immature Gran % 1.1 Neutrophils % 83.0 Lymphocytes % 6.6 Monocytes % 6.6 Eosinophils % 2.4 Basophils % 0.3 Nucleated RBC % % 0 Absolute Neutrophils (1.2-6.7) 10^3/uL 16.03 H Absolute Lymphocytes (1.2-3.4) 10^3/uL 1.27 Absolute Monocytes (0.1-0.8) 10^3/uL 1.27 H Absolute Eosinophils (0.0-0.7) 10^3/uL 0.46 Absolute Basophils (0.0-0.2) 10^3/uL 0.06 RBC Morphology See Below Polychromasia Hypochromasia 2+ Anisocytosis 2+ Microcytosis 2+ VBG Lactate (0.6-1.4) mmol/L Sodium (136-145) mmol/L 140 Potassium (3.5-5.1) mmol/L 4.0 D Chloride (98-107) mmol/L 111 H Carbon Dioxide (21.0-32.0) mmol/L 9.3 L Anion Gap (3-11) mmol/L 19.7 H BUN (7-18) mg/dL 108 H* Creatinine (0.55-1.02) mg/dL 5.9 H* Estimated GFR/1.73 m2 (mL/min/1.73m2) 7.09 Glucose (74-106) mg/dL 79 D Calcium (8.5-10.1) mg/dL 7.4 L Phosphorus (2.6-4.7) mg/dL 6.7 H Magnesium (1.8-2.4) mg/dL 1.8 Iron (50-170) ug/dL TIBC (250-450) ug/dL Transferrin % Sat (15-50) % Ferritin (8-252) ng/mL Total Bilirubin (0.2-1.0) mg/dL 0.4 Conjugated Bilirubin (0.0-0.2) mg/dL 0.1 AST (15-37) U/L 18 ALT (14-59) U/L 21 Alkaline Phosphatase (46-116) U/L 81 Total Protein (6.4-8.2) g/dL 7.6 Albumin (3.4-5.0) g/dL 1.6 L Lipase (73-393) U/L Vitamin B12 (193-986) pg/mL Folate (8.6-20.0) ng/mL TSH (0.36-3.74) uIU/mL Urine Color (Yellow) Urine Clarity (Clear) Urine pH (5-8) Ur Specific [place] (1.005-1.025) Urine Protein (Negative) mg/dL Urine Ketones (Negative) mg/dL Urine Blood (Negative) Urine Nitrite (Negative) Urine Bilirubin (Negative) Urine Urobilinogen (Up TO 0.2) EU/dL Ur Leukocyte Esterase (Negative) Urine RBC (0-2) HPF Urine WBC (0-5) HPF Ur Epithelial Cells Urine Crystals Urine Bacteria (Negative) HPF Urine Mucus Ur Culture Indicated? Urine Glucose (Negative) mg/dL COVID-19 Source SARS-CoV-2 (PCR) (Negative) Path Cons Comment Patient ABO/Rh Antibody Screen Crossmatch Range/Units 02/20/21 02/21/21 02/21/21 20:15 07:30 07:30 WBC (4.4-10.8) 10^3/uL 19.03 H RBC (3.93-5.22) 10^6/uL 3.44 L Hgb (11.2-15.7) g/dL 8.6 L 7.7 L Hct (36.0-46.0) % 28.1 L D 24.6 L MCV (80-95) fL 71.5 L MCH (27.0-33.0) pg 22.4 L MCHC (32.0-36.0) % 31.3 L RDW (11.7-14.6) % 24.2 H Plt Count (130-400) 10^3/uL 624 H MPV (8.0-11.0) fL 8.2 Reticulocyte % (Auto) (0.5-2.4) % Immature Gran % 1.1 Neutrophils % 82.8 Lymphocytes % 5.7 Monocytes % 7.3 Eosinophils % 2.8 Basophils % 0.3 Nucleated RBC % % 0 Absolute Neutrophils (1.2-6.7) 10^3/uL 15.76 H Absolute Lymphocytes (1.2-3.4) 10^3/uL 1.08 L Absolute Monocytes (0.1-0.8) 10^3/uL 1.39 H Absolute Eosinophils (0.0-0.7) 10^3/uL 0.53 Absolute Basophils (0.0-0.2) 10^3/uL 0.06 RBC Morphology See Below Polychromasia Present Hypochromasia 1+ Anisocytosis 1+ Microcytosis 1+ VBG Lactate (0.6-1.4) mmol/L Sodium (136-145) mmol/L 143 Potassium (3.5-5.1) mmol/L 3.4 L Chloride (98-107) mmol/L 113 H Carbon Dioxide (21.0-32.0) mmol/L 14.0 L Anion Gap (3-11) mmol/L 16.0 H BUN (7-18) mg/dL 87 H* Creatinine (0.55-1.02) mg/dL 4.8 H* Estimated GFR/1.73 m2 (mL/min/1.73m2) 8.99 Glucose (74-106) mg/dL 106 Calcium (8.5-10.1) mg/dL 7.6 L Phosphorus (2.6-4.7) mg/dL Magnesium (1.8-2.4) mg/dL 1.8 Iron (50-170) ug/dL TIBC (250-450) ug/dL Transferrin % Sat (15-50) % Ferritin (8-252) ng/mL Total Bilirubin (0.2-1.0) mg/dL 0.4 Conjugated Bilirubin (0.0-0.2) mg/dL 0.1 AST (15-37) U/L 17 ALT (14-59) U/L 20 Alkaline Phosphatase (46-116) U/L 73 Total Protein (6.4-8.2) g/dL 7.4 Albumin (3.4-5.0) g/dL 1.5 L Lipase (73-393) U/L Vitamin B12 (193-986) pg/mL Folate (8.6-20.0) ng/mL TSH (0.36-3.74) uIU/mL Urine Color (Yellow) Urine Clarity (Clear) Urine pH (5-8) Ur Specific [place] (1.005-1.025) Urine Protein (Negative) mg/dL Urine Ketones (Negative) mg/dL Urine Blood (Negative) Urine Nitrite (Negative) Urine Bilirubin (Negative) Urine Urobilinogen (Up TO 0.2) EU/dL Ur Leukocyte Esterase (Negative) Urine RBC (0-2) HPF Urine WBC (0-5) HPF Ur Epithelial Cells Urine Crystals Urine Bacteria (Negative) HPF Urine Mucus Ur Culture Indicated? Urine Glucose (Negative) mg/dL COVID-19 Source SARS-CoV-2 (PCR) (Negative) Path Cons Comment Patient ABO/Rh Antibody Screen Crossmatch Range/Units 02/22/21 02/22/21 02/23/21 06:27 06:27 06:30 WBC (4.4-10.8) 10^3/uL 19.93 H RBC (3.93-5.22) 10^6/uL 3.52 L Hgb (11.2-15.7) g/dL 7.7 L Hct (36.0-46.0) % 24.9 L MCV (80-95) fL 70.7 L MCH (27.0-33.0) pg 21.9 L MCHC (32.0-36.0) % 30.9 L RDW (11.7-14.6) % 25.4 H Plt Count (130-400) 10^3/uL 756 H* MPV (8.0-11.0) fL 8.8 Reticulocyte % (Auto) (0.5-2.4) % Immature Gran % 0.0 Neutrophils % 83.0 Lymphocytes % 8.0 Monocytes % 6.0 Eosinophils % 2.0 Basophils % 1.0 Nucleated RBC % % 0 Absolute Neutrophils (1.2-6.7) 10^3/uL 16.54 H Absolute Lymphocytes (1.2-3.4) 10^3/uL 1.59 Absolute Monocytes (0.1-0.8) 10^3/uL 1.20 H Absolute Eosinophils (0.0-0.7) 10^3/uL 0.40 Absolute Basophils (0.0-0.2) 10^3/uL 0.20 RBC Morphology See Below Polychromasia Hypochromasia 2+ Anisocytosis 2+ Microcytosis 2+ VBG Lactate (0.6-1.4) mmol/L Sodium (136-145) mmol/L 143 142 Potassium (3.5-5.1) mmol/L 3.7 3.2 L Chloride (98-107) mmol/L 112 H 110 H Carbon Dioxide (21.0-32.0) mmol/L 17.9 L 21.2 Anion Gap (3-11) mmol/L 13.1 H 10.8 BUN (7-18) mg/dL 56 H D 42 H D Creatinine (0.55-1.02) mg/dL 3.6 H* D 3.0 H Estimated GFR/1.73 m2 (mL/min/1.73m2) 12.54 15.47 Glucose (74-106) mg/dL 92 91 Calcium (8.5-10.1) mg/dL 7.8 L 7.5 L Phosphorus (2.6-4.7) mg/dL Magnesium (1.8-2.4) mg/dL 1.4 L 1.6 L Iron (50-170) ug/dL TIBC (250-450) ug/dL Transferrin % Sat (15-50) % Ferritin (8-252) ng/mL Total Bilirubin (0.2-1.0) mg/dL Conjugated Bilirubin (0.0-0.2) mg/dL AST (15-37) U/L ALT (14-59) U/L Alkaline Phosphatase (46-116) U/L Total Protein (6.4-8.2) g/dL Albumin (3.4-5.0) g/dL 1.5 L Lipase (73-393) U/L Vitamin B12 (193-986) pg/mL Folate (8.6-20.0) ng/mL TSH (0.36-3.74) uIU/mL Urine Color (Yellow) Urine Clarity (Clear) Urine pH (5-8) Ur Specific [place] (1.005-1.025) Urine Protein (Negative) mg/dL Urine Ketones (Negative) mg/dL Urine Blood (Negative) Urine Nitrite (Negative) Urine Bilirubin (Negative) Urine Urobilinogen (Up TO 0.2) EU/dL Ur Leukocyte Esterase (Negative) Urine RBC (0-2) HPF Urine WBC (0-5) HPF Ur Epithelial Cells Urine Crystals Urine Bacteria (Negative) HPF Urine Mucus Ur Culture Indicated? Urine Glucose (Negative) mg/dL COVID-19 Source SARS-CoV-2 (PCR) (Negative) Path Cons Comment Patient ABO/Rh Antibody Screen Crossmatch Range/Units 02/23/21 02/23/21 06:30 09:46 WBC (4.4-10.8) 10^3/uL 18.03 H RBC (3.93-5.22) 10^6/uL 3.13 L Hgb (11.2-15.7) g/dL 7.0 L Hct (36.0-46.0) % 22.8 L MCV (80-95) fL 72.8 L MCH (27.0-33.0) pg 22.4 L MCHC (32.0-36.0) % 30.7 L RDW (11.7-14.6) % 24.9 H Plt Count (130-400) 10^3/uL 618 H MPV (8.0-11.0) fL 8.6 Reticulocyte % (Auto) (0.5-2.4) % Immature Gran % 1.2 Neutrophils % 76.4 Lymphocytes % 11.8 Monocytes % 6.2 Eosinophils % 4.0 Basophils % 0.4 Nucleated RBC % % 0 Absolute Neutrophils (1.2-6.7) 10^3/uL 13.77 H Absolute Lymphocytes (1.2-3.4) 10^3/uL 2.13 Absolute Monocytes (0.1-0.8) 10^3/uL 1.12 H Absolute Eosinophils (0.0-0.7) 10^3/uL 0.72 H Absolute Basophils (0.0-0.2) 10^3/uL 0.07 RBC Morphology See Below Polychromasia Hypochromasia 2+ Anisocytosis 2+ Microcytosis 2+ VBG Lactate (0.6-1.4) mmol/L Sodium (136-145) mmol/L Potassium (3.5-5.1) mmol/L Chloride (98-107) mmol/L Carbon Dioxide (21.0-32.0) mmol/L Anion Gap (3-11) mmol/L BUN (7-18) mg/dL Creatinine (0.55-1.02) mg/dL Estimated GFR/1.73 m2 (mL/min/1.73m2) Glucose (74-106) mg/dL Calcium (8.5-10.1) mg/dL Phosphorus (2.6-4.7) mg/dL Magnesium (1.8-2.4) mg/dL Iron (50-170) ug/dL TIBC (250-450) ug/dL Transferrin % Sat (15-50) % Ferritin (8-252) ng/mL Total Bilirubin (0.2-1.0) mg/dL Conjugated Bilirubin (0.0-0.2) mg/dL AST (15-37) U/L ALT (14-59) U/L Alkaline Phosphatase (46-116) U/L Total Protein (6.4-8.2) g/dL Albumin (3.4-5.0) g/dL Lipase (73-393) U/L Vitamin B12 (193-986) pg/mL Folate (8.6-20.0) ng/mL TSH (0.36-3.74) uIU/mL Urine Color (Yellow) Urine Clarity (Clear) Urine pH (5-8) Ur Specific [place] (1.005-1.025) Urine Protein (Negative) mg/dL Urine Ketones (Negative) mg/dL Urine Blood (Negative) Urine Nitrite (Negative) Urine Bilirubin (Negative) Urine Urobilinogen (Up TO 0.2) EU/dL Ur Leukocyte Esterase (Negative) Urine RBC (0-2) HPF Urine WBC (0-5) HPF Ur Epithelial Cells Urine Crystals Urine Bacteria (Negative) HPF Urine Mucus Ur Culture Indicated? Urine Glucose (Negative) mg/dL COVID-19 Source SARS-CoV-2 (PCR) (Negative) Path Cons Comment Patient ABO/Rh A Positive Antibody Screen Crossmatch See Detail
[2021-02-23] MEDS: diphenhydrAMINE 25 MG CAP PO (13:43)
--- NOTE | 2021-02-23 14:16 | W.PM.PROGNOT ---
Date of Service Date of service: 02/23/21 Time of Service: 14:17 Assessment and Plan Assessment and plan (1) Sepsis: Status: Acute Assessment and plan: Due to Group G strep UTI, present on admission, complicated by bladder tumor and B hydronephrosis. S/p B nephrostomies 02/20/21 at [facility]. Blood cx 02/18/21 1/4: Coag negative staph. Likely contaminant. Repeat blood cultures are negative. Continue zosyn due to concerns for post-obstructive PNA as well. Continue monitoring CBC. (2) Acute UTI: Status: Acute Assessment and plan: As above (3) Bladder mass: Status: Acute Assessment and plan: S/p cysto and bx 02/19/21. Pathology still pending. Ureteral stent placement unsuccessful at that time. Now she is s/p B nephroureteral stents/nephrostomies. Suspected malignancy, creating obstructive uropathy. Await bx results. Refer to [facility] urology and to oncology - referral ordered in the computer. (4) Obstructive uropathy: Status: Acute Assessment and plan: As above Cr improving. Will provide nephrostomy teaching. Will need follow up with urology at [facility]. (5) Lung mass: Status: Acute Assessment and plan: with collapse of LLL as the mass is obstructive. Continue zosyn for post-obstructive PNA. Needs outpatient referral for bronch/stent - discussed this with the patient and daughter today. Dr García appointment is already scheduled. (6) BRITNI (acute kidney injury): Status: Acute Assessment and plan: Predominantly post-obstructive, however probably also somewhat prerenal as anemic/dehydrated and intrinsic due to UTI. Improving post B nephrostomies. As above. Hyperkalemia has resolved. Replete K today. Will also replete magnesium. Continue IVF. (7) Anemia due to acute blood loss: Status: Acute Assessment and plan: S/p transfusion of 2 units of pRBCs so far on this admission. To receive her 3rd unit of blood today. (8) Airway obstruction: Status: Acute Assessment and plan: As above (9) Thrombocytosis: Status: Acute Assessment and plan: Likely reactive. Will monitor. (10) Folate deficiency: Status: Acute Assessment and plan: Replete (11) DVT prophylaxis: Status: Acute Assessment and plan: SCDs. If H/H stable tomorrow, would consider starting chemical anticoagulation. (12) Discharge planning issues: Status: Acute Assessment and plan: Full code Palliative care consulted. Anticipate discharge home tomorrow or on Friday. Receiving nephrostomy tube teaching. Will need referrals to home health nursing, pulmonology, urology at [facility], oncology. Subjective Subjective Interval history since last seen: Ms Bullard states she is feeling better today. She had an episode of anxiety last night, but is feeling better now. Denies dizziness, chest pain, shortness of breath, nausea, vomiting. Pt's son in law was just diagnosed with COVID and the patient would have to go home by herself on discharge. Exam Narrative Exam Narrative: General: middle-aged female, A&Ox3, looks comfortable in bed HEENT: EOMI, MMM Heart: RRR, no m/r/g Lungs: CTAB Abdomen: soft, nontender, nondisteded; back: B nephrostomy tubes attached to farias catheter bags Extremities: no edema, 1+ pedal pulses B Objective Last Vital Signs Temp 36.4 C L 02/23/21 14:14 Pulse 86 02/23/21 14:14 Resp 16 02/23/21 14:14 BP 132/74 02/23/21 14:14 Pulse Ox 96 02/23/21 14:14 Laboratory Results - last 24 hr 02/23/21 02/23/21 02/23/21 06:30 06:30 09:46 WBC 18.03 H RBC 3.13 L Hgb 7.0 L Hct 22.8 L MCV 72.8 L MCH 22.4 L MCHC 30.7 L RDW 24.9 H Plt Count 618 H MPV 8.6 Immature Gran % 1.2 Neutrophils % 76.4 Lymphocytes % 11.8 Monocytes % 6.2 Eosinophils % 4.0 Basophils % 0.4 Nucleated RBC % 0 Absolute Neutrophils 13.77 H Absolute Lymphocytes 2.13 Absolute Monocytes 1.12 H Absolute Eosinophils 0.72 H Absolute Basophils 0.07 RBC Morphology See Below Hypochromasia 2+ Anisocytosis 2+ Microcytosis 2+ Sodium 142 Potassium 3.2 L Chloride 110 H Carbon Dioxide 21.2 Anion Gap 10.8 BUN 42 H D Creatinine 3.0 H Estimated GFR/1.73 m2 15.47 Glucose 91 Calcium 7.5 L Magnesium 1.6 L Patient ABO/Rh A Positive Antibody Screen NEGATIVE Crossmatch See Detail
--- NOTE | 2021-02-23 15:15 | CMPROGNOTE_ITS ---
- If Service Date Differs Date of service: 02/23/21 Time of Service: 15:15 Care Management Progress Note S/O: Per provider, Barb will likely be discharged home as soon as tomorrow with new orders for home health nursing through [facility]. Follow up appointment scheduled for 03/02/21 with Eren Ramirez at 1pm with [facility], arranged by CM. Referrals for pulmonology, urology at [facility], and oncology were placed. She will also have bloodwork next Friday. CM continues to follow. A: 70 year old female admitted to [facility] 02/18/21 for BRITNI, anemia, UTI P: Anticipate Barb will be discharged home when medically cleared by provider. She was intending to stay with her daughter following discharge however Daisha's was just diagnosed with Covid. Barb will transport via private vehicle with family and follow up with community providers and discharge plan of care as prescribed. Barb accepts VNA services following discharge. Patient does not have a PCP. Follow up appointment with [facility] 03/02/21 at 1pm, arranged by CM. CM continues to follow.
[2021-02-24] MEDS: Acetaminophen 325 MG TAB 650 MG PO ×3 (01:32→23:25)
[2021-02-24] MEDS: PIPERACILLIN/TAZO 2.25 GM in Normal Saline 50 ML IVPB ×3 (01:45→16:25)
[2021-02-24 03:40] VITALS: BP 149/79; PULSE 78; RESP 15; TEMP 36.9; O2SAT 94
[2021-02-24 08:40] VITALS: BP 143/73; PULSE 91; RESP 16; TEMP 36.1; O2SAT 95
[2021-02-24 08:46] LABS: Abs Immature Grans 0.27 10^3/uL (0.0-0.06); Absolute Basophil Count 0.11 10^3/uL (0.0-0.2); Basophils % 0.5; Eosinophils % 3.9; HCT 30.1 % (36.0-46.0); HGB 9.4 g/dL (11.2-15.7); Immature Grans % 1.2; Lymphocytes % 8.9; MCH 23.7 pg (27.0-33.0); MCHC 31.2 % (32.0-36.0); MCV 75.8 fL (80-95); MPV 8.7 fL (8.0-11.0); Monocytes % 5.2; Neutrophils % 80.3; Nucleated RBC 0 %; Platelet Count 682 10^3/uL (130-400); RBC 3.97 10^6/uL (3.93-5.22); RDW 25.6 % (11.7-14.6); RDW-SD 69.6 fL; WBC 22.14 10^3/uL (4.4-10.8)
[2021-02-24 08:54] LABS: Anion Gap 10.2 mmol/L (3-11); BUN 32 mg/dL (7-18); CO2 23.8 mmol/L (21.0-32.0); CREATININE 2.3 mg/dL (0.55-1.02); Chloride 108 mmol/L (98-107); Estimated GFR 21.02 (mL/min/1.73m2); Glucose 100 mg/dL (74-106); Magnesium 1.8 mg/dL (1.8-2.4); Potassium 3.6 mmol/L (3.5-5.1); Sodium 142 mmol/L (136-145)
[2021-02-24 09:10] LABS: Absolute Eosinophil Count 0.86 10^3/uL (0.0-0.7); Absolute Lymphocyte Count 1.97 10^3/uL (1.2-3.4); Absolute Monocyte Count 1.15 10^3/uL (0.1-0.8); Absolute Neutrophil Count 17.78 10^3/uL (1.2-6.7)
[2021-02-24 09:11] LABS: Anisocytosis 3+; Diff Comment RBC Morph Reviewed; Hypochromasia 1+; Microcytosis 1+; Polychromasia Present
[2021-02-24] MEDS: Normal Saline Flush 10 ML SYR IVP ×2 (09:39→21:23)
[2021-02-24] MEDS: Lactated Ringers 1,000 ML 125 ML IV ×2 (09:51→18:47)
[2021-02-24 11:36] VITALS: BP 140/73; PULSE 85; RESP 16; TEMP 36.6; O2SAT 96
--- NOTE | 2021-02-24 16:28 | PGE_ITS ---
Date of Service Date of service: 02/24/21 Time of Service: 16:29 Assessment and Plan Assessment and plan (1) Sepsis: Status: Acute Assessment and plan: Due to Group G strep UTI, present on admission, complicated by bladder tumor and B hydronephrosis. S/p B nephrostomies 02/20/21 at [facility]. Blood cx 02/18/21 1/4: Coag negative staph. Likely contaminant. Repeat blood cultures are negative. Continue zosyn due to concerns for post-obstructive PNA as well. I think that the patient can be down graded to an oral cephalosporin. Qualifiers: Sepsis type: Streptococcus, other Sepsis acute organ dysfunction status: with acute organ dysfunction Severe sepsis acute organ dysfunction type: acute renal failure Acute renal failure type: with other specified pathological lesion Severe sepsis shock status: without septic shock Qualified Code(s): A40.8 - Other streptococcal sepsis; R65.20 - Severe sepsis without septic shock; N17.8 - Other acute kidney failure (2) Acute UTI: Status: Acute Assessment and plan: As above (3) Bladder mass: Status: Acute Assessment and plan: S/p cysto and bx 02/19/21. Pathology still pending. Ureteral stent placement unsuccessful at that time. Now she is s/p B nephroureteral stents/nephrostomies. Suspected malignancy, creating obstructive uropathy. Await bx results. Refer to [facility] urology and to oncology - referral ordered in the computer. (4) Obstructive uropathy: Status: Acute Assessment and plan: As above Cr improving. Will provide nephrostomy teaching. Will need follow up with urology at [facility]. (5) Lung mass: Status: Acute Assessment and plan: with collapse of LLL as the mass is obstructive. Continue zosyn for post-obstructive PNA. Needs outpatient referral for bronch/stent Dr García appointment is already scheduled. (6) BRITNI (acute kidney injury): Status: Acute Assessment and plan: Predominantly post-obstructive, however probably also somewhat prerenal as anemic/dehydrated and intrinsic due to UTI. Improving post B nephrostomies. As above. dc iv fluids as patient is eating/drinking well (7) Anemia due to acute blood loss: Status: Acute Assessment and plan: s/p transfusion of 3 units of PRBC. Repeat Hb now 9.4 gm. (8) Airway obstruction: Status: Acute Assessment and plan: As above (9) DVT prophylaxis: Status: Acute Assessment and plan: SCDs. due to her sever anemia on admission, she will be remain in mechanical anticoagulation w/ SCD. No lovenox for now (10) Discharge planning issues: Status: Acute Assessment and plan: Full code Palliative care consulted. Anticipate discharge home on Friday. Receiving nephrostomy tube teaching. Will need referrals to home health nursing, pulmonology, urology at [facility], oncology. Subjective Subjective Interval history since last seen: Patient denies any dyspnea or CP. No fevers overnight. Repeat blood cultures from 02/20 no growth. original blood cultures from 02/18 grew only one bottle w/ Staph epi therefore probable contaminant. Urine culture from 02/18 grew group G Strep >100,000 CFU and E. coli 10,000 to 50,000 CFU. The E. coli was pansensitive. She has been on Zosyn since 02/19 (she was on Ceftriaxone on admission from 02/18 to 02/19 and vancomcyin from 02/19 to 02/21. At this point she could be on cefpodoxime or cefdinir. She has now completed 6 days of treatment. she has yet to receive training for care of her nephrostomy tubes. I will keep her here today to receive training on care of her nephrostomy then discharge her on another 5 days of an oral cephalosporin which should cover both her E. coli and Group G Strep. Now that she has adequate drainage of her obstructive uropathy. She needs referral to [facility] urology upon discharge to deal w/ her bladder mass. Exam Narrative Exam Narrative: Elderly female lying in bed in no acute distresss alert and oriented x 3 Lungs: clear Heart: RRR Abdomen: nondistended. soft, nontender; nephrostomy tube sites w/out induration or erythema. slight tenderness w/ palpation over her left nephrostomy tube site Legs: no edema Objective Last Vital Signs Temp 36.6 C 02/24/21 11:36 Pulse 85 02/24/21 11:36 Resp 16 02/24/21 11:36 BP 140/73 02/24/21 11:36 Pulse Ox 96 02/24/21 11:36 Laboratory Results - last 24 hr 02/23/21 02/24/21 02/24/21 09:46 08:26 08:26 WBC 22.14 H RBC 3.97 Hgb 9.4 L D Hct 30.1 L D MCV 75.8 L MCH 23.7 L MCHC 31.2 L RDW 25.6 H Plt Count 682 H MPV 8.7 Immature Gran % 1.2 Neutrophils % 80.3 Lymphocytes % 8.9 Monocytes % 5.2 Eosinophils % 3.9 Basophils % 0.5 Nucleated RBC % 0 Absolute Neutrophils 17.78 H Absolute Lymphocytes 1.97 Absolute Monocytes 1.15 H Absolute Eosinophils 0.86 H Absolute Basophils 0.11 RBC Morphology See Below Polychromasia Present Hypochromasia 1+ Anisocytosis 3+ Microcytosis 1+ Sodium 142 Potassium 3.6 Chloride 108 H Carbon Dioxide 23.8 Anion Gap 10.2 BUN 32 H D Creatinine 2.3 H D Estimated GFR/1.73 m2 21.02 Glucose 100 Calcium 8.0 L Magnesium 1.8 Crossmatch See Detail
[2021-02-24 16:36] VITALS: BP 166/84; PULSE 87; RESP 16; TEMP 37.7; O2SAT 95
[2021-02-24 19:19] VITALS: BP 163/70; PULSE 85; RESP 16; TEMP 37.4; O2SAT 95
[2021-02-24] MEDS: HYDROmorphone 2 MG/ML VIAL 0.25 MG IVP (20:30)
[2021-02-24 23:04] VITALS: BP 155/74; PULSE 87; RESP 17; TEMP 36.1; O2SAT 96
[2021-02-25] MEDS: PIPERACILLIN/TAZO 2.25 GM in Normal Saline 50 ML IVPB ×2 (01:02→08:27)
[2021-02-25 03:05] VITALS: BP 126/71; PULSE 76; RESP 18; TEMP 36.5; O2SAT 95
[2021-02-25] MEDS: Acetaminophen 325 MG TAB 650 MG PO (03:45)
[2021-02-25 07:34] VITALS: BP 152/79; PULSE 76; RESP 18; TEMP 36.5; O2SAT 96
[2021-02-25] MEDS: Normal Saline 500 ML 100 ML IV (08:26)
[2021-02-25] MEDS: Normal Saline Flush 10 ML SYR IVP ×2 (08:26→09:34)
--- NOTE | 2021-02-25 10:20 | CMDISCH_ITS ---
- If Service Date Differs Date of service: 02/25/21 Time of Service: 10:20 LACE Index Scoring Tool - Questions: Length of Stay (in days): 7 - 13 Acuity (Admit via E.D.?): Yes Comorbidities: Metastatic Solid Tumor E.D. Visits: 1 - Answers: Total Score: 14 Risk of Readmission: High Risk Care Management Discharge Reason for Hospitalization: Renal failure, Acute UTI, Anemia Discharge Plan: Barb will return home with [facility]: SN/P T/OT/[facility] [employer] [facility] services. She will transport via private vehicle with family. She will follow up with PCP (CM provided attachment), [facility]NA, pulmonology, urology at [facility] and oncology. Barb is scheduled at [facility] on 03/02/21 at 1pm (CM arranged/No PCP) and [facility] Pulmonology on 04/06/21. CM will help Barb set up appointments with [facility] Urology and oncology on Friday. Patient/Family Education Needs: Review discharge instructions, limitations and plan to follow up with community providers. ask me three. Services Needed at Discharge: Home Health Care Services ([facility]: RN/PT/OT/CYBER SECURITY SPECIALIST)
--- NOTE | 2021-02-25 11:58 | DSE_ITS ---
Date of service: 02/25/21 Time of Service: 11:58 DS: Diagnosis Discharge Diagnosis (1) Sepsis: Status: Resolved Asessment and Plan: patient presented w/ sepsis secondary to UTI from bladder mass obstruction causing bilateral hydroureter/hydronephrosis. Urine culture grew E. coli (10,000 to 50,000 colonies) and Group G Strep (>100,000 colonies). Initial blood culture grew 1/4 bottles of coagulase negative Staph but repeat cultures had no growth. She underwent cystoscopy and bladder biopsies performed by Dr. Arzate but the ureteral orifices could not be visualized and stenting could not be done. Patient was sent to [facility] interventional radiology for bilateral nephrostomy tubes and catheters. Patient was treated initially w/ Rocephin on admission but then Vancomycin and Zosyn and finally just Zosyn through the end of her hospital stay. She will be given 7 more days of oral antibiotics w/ Augmentin 500 mg bid x 7 days. (2) Acute UTI: Status: Resolved (3) Bladder mass: Status: Acute (4) Obstructive uropathy: Status: Acute (5) Lung mass: Status: Acute (6) BRITNI (acute kidney injury): Status: Acute (7) Anemia due to acute blood loss: Status: Acute Asessment and Plan: patient was treated w/ transfusion of 3 units of PRBC. She will be discharged home on oral iron sulfate to treat her iron deficiency anemia. Admission Hb was 7.7 gm and she dropped to 6.3 gm before receiving her first two untis of blood. Her Hb only came up to 8.6 and drifted down to 7 gm before getting another unit of blood on 02/23. Her Hb at discharge was 9.4 gm. (8) Airway obstruction: Status: Acute Asessment and Plan: secondary to LLL obstructing lung mass; likely related to her bladder mass. Patient to follow up w/ Dr. Joshua, local nurse tech, who will be arranging follow up w/ [facility] [place]. (9) DVT prophylaxis: Status: Resolved (10) Discharge planning issues: Status: Resolved Discharge Plan Disposition Patient Disposition: HOME W/HOME HEALTH SERVICE Condition: Improving Discharge Details Reason For Visit: BRITNI,anemia,UTI Admit Date/Time: 02/18/21 19:04 Admit Provider: Jean Carlos Hancock Attending Provider: Jean Carlos Hancock Primary Care Provider: Unknown,Unknown Hospital Course Hospital Course: 70 yr old female with no significant PMH who has not seen a healthcare provider in years, presented to the ER at [facility] w/ symptoms of 50 lb wt loss over 6 months along w/ 2 months of dysuria. Evaluation in the ER revealed a leukocytosis of 25,000 and microcytic anemia w/ MCV 69 and Hb of 7.7 gm and thrombocytosis of 1.1 million platelets and BRITNI w/ creatinine of 5.9 and BUN 108 w/ an anion gap of 17.5 and potassium of 5.3 that donavan to 5.9. Patient had a noncontrast CT scan of her abdomen and pelvis and chest. She was found to have large neoplastic looking mass measuring 6 x 8 cm in the left lower lobe causing obstruction w/ modearte sized pleural effusion. She was also found to have modeerate to severe bilateral hydronephrosis related to bladder neoplasm. Patient was started on iv fluids and Rocephin which was then changed to Zosyn by the day hospitalist on 02/19/2021. Urology, Dr. Leandro Arzate was consulted on 02/19 (see his note for details). He performed cystoscopy on 02/19/2021 (see procedure note for details). He found a large white nodular mass occupying the dome of the bladder and most of the volume of the bladder. Her ureteral orifices were not visible and for this reason he could not stent her ureters. He did biopsy the bladder mass and placed a farias catheter. Because of the small volume capacity of her bladder d/t the large bladder mass, the patient could not tolerate the indwelling farias catheter and this was removed. The patient was referred to [facility] [place] for bilateral nephrostomy tube placement. This was done on 02/20. The patient's antibiotics were changed from Rocephin to Zosyn and Vancomycin. Her blood cultures from admission on 02/18 initially grew coagulase negative Staph in 1/4 bottles while her urine cultures grew E. coli 10,000 to 50,000 CFU and Group G Strep >100,000 CFU. Her Vancomycin was stopped on 02/21 but Zosyn was continued through the duration of her stay, as the hospitalist was concerned for post-obstructive pneumonia. Repeat blood cultures from 02/20 came back no growth. After placement of her nephrostomy tubes and with iv hydration her anion gap acidosis resolved and her BRITNI improved. AT discharge her BUN was 32 and creatinine 2.3. However, her leukocytosis never resolved and in fact her WBC levels remained fairly constant at 19,000 to 22,000. Her thrombocytosis also did not resolve but improved to 682,000. Her anemia was treated w/ transfusion of 3 units of packed red blood cells from 02/19 and 02/20 and the third unit on 02/23. Her Hb at discharge was up to 9.4 gm. She was seen in consultation by Dr. Joshua, nurse tech, for her lung mass. See her note for details regarding her recommendations. In summary, she felt that the LLL lung mass was likely related to the baldder mass and although the lung mass was obstruction her LLL causing total collapse, she felt that the patient was not appropriate for bronchoscopy at this time as the patient had no hypoxemia or acute respiratory symtoms. She did recommend a brain MRI which was done on 02/21 and showed no metastatic lesions. Patient will have follow up w/ Dr. Joshua as outpatient. Dr. Joshua also is handling referrel to interventional pulmonary medicine [place] [facility] for the patient's LLL airway obstruction. Dr. Arzate has arranged a telehealth follow up visit w/ the patient for Monday 02/26 to discuss the bladder biopsy results w/ the patient and her daughter, who is not vaccinated against Covid-19. Home Meds and New Rx's Prescriptions: New amoxicillin-pot clavulanate [Augmentin] 500-125 mg tablet 1 tab PO BID Qty: 14 RF: 0 ferrous sulfate 325 mg (65 mg iron) tablet,delayed release (DR/EC) 325 mg PO BID Qty: 60 RF: 0 Discharge Instructions Instructions: Percutaneous Nephrolithotomy (DC), Iron Rich Diet (DC), Iron Deficiency Anemia (GEN), Nephrostomy Tube Care (DC), Nephrostomy Tube Care (GEN), Urinary Leg Bag (GEN), How to Change a Catheter Drainage Bag (GEN) Stand Alone Forms: Nursing Discharge Form Referrals: [facility] [Other] (Please call Friday to make appointment for blood work. ) H[place]OLOGY[place],[facility] [place]OTHER] - (Office will call you with appointment. ) [place]OLOGY,[facility] [place]] - (office will call you with appointment) Joelle García MD [ [facility] STAFF PHYSICIAN] - 04/06/21 10:30 am Eren Shah NP [NURSE PRACTITIONER] - 03/02/21 1:00 pm (will need to fill out paperwork for new PCP at appt.) Activity:: Activity as Tolerated Equipment/Supplies:: farias bag Diet:: Normal Diet Discharge Orders Discharge Orders: Discharge Order (Routine); Ordered 02/25/21 Ordered By: Matthew Garcia Other Ambulatory Orders: Basic Metabolic Panel (Routine) Timeframe: 1 Week Facility: [facility] - Location: Laboratory Outpatient Ordered By: Matthew Garcia Complete Blood Count w/Diff (Routine) Timeframe: 1 Week Facility: [facility] - Location: Laboratory Outpatient Ordered By: Mtathew Garcia DS: Summary Time Spent with Patient providing and/or coordinating discharge services: Greater than 30 minutes Status at Discharge Functional status at discharge: independent ambulation Overall status at discharge: patient is progressing back to baseline Mental Status: mental status grossly normal Speech and Movement: speech and movement normal Mood: congruent mood Affect: normal affect Exam Narrative Exam Narrative: Elderly female sitting up at bedside doing her catheter and farias bag training from her nurse alert and oriented x 3 Lungs: clear Heart: RRR Abdomen: nondistended. soft, nontender; nephrostomy tube sites w/out induration or erythema. slight tenderness w/ palpation over her left nephrostomy tube site Legs: no edema Psych Mental Status: mental status grossly normal Speech and Movement: speech and movement normal Mood: congruent mood Affect: normal affect DS: Data Vitals/I&O Vitals and I&O: Vital Signs Temperature 36.5 C 02/25/21 07:34 Temperature Source Skin 02/25/21 07:34 Pulse 76 02/25/21 07:34 Pulse Rhythm Irregular 02/25/21 07:34 Pulse 89 02/18/21 18:07 Respiratory Rate 18 02/25/21 07:34 Respiratory Effort Non-Labored 02/25/21 07:34 Respiratory Depth Normal 02/25/21 07:34 Respiratory Pattern Normal 02/25/21 07:34 Blood Pressure 152/79 H 02/25/21 07:34 Blood Pressure Mean 73 02/18/21 18:07 Blood Pressure Position Sitting 02/18/21 16:19 Pulse Oximetry 96 02/25/21 07:34 Oxygen Delivery Method Room Air 02/25/21 07:34 Oxygen Flow Rate 0 02/25/21 07:34 Pain Level 0 02/25/21 07:34 Comment 02/25/21 07:34 Intake & Output 02/24/21 02/24/21 02/25/21 11:59 23:59 11:59 Intake Total 1960 / 3560 1600 / 3560 651.667 / 651.667 Output Total 1700 / 3550 1850 / 3550 1700 / 1700 Balance 260 / 10 -250 / 10 -1048.333 / -1048.333 Intake: IV 1100 / 2200 1100 / 2200 151.667 / 151.667 Oral 860 / 1360 500 / 1360 500 / 500 Output: Drainage 1700 / 3550 1850 / 3550 1700 / 1700 Left Posterior 525 / 875 350 / 875 775 / 775 Right Posterior 1175 / 2675 1500 / 2675 925 / 925 Other: Urine Color Yellow Urine Appearance Clear Clear Clear Comment pT dribbled minimal amount of urine Stool Occult Blood Positive Positive Negative Stool Size Moderate Moderate Small Stool Characteristics Soft Soft Soft Foamy Brown Formed Brown Bloody Brown Voiding Methods Bedside Commode [facility] Medical History (Updated 02/25/21 @ 12:05 by Matthew Garcia) Bilateral hydronephrosis Social History Smoking/Tobacco Use Status: Former Tobacco Use Smoking risk assessment performed?: Yes Alcohol Intake: never Substance use type: does not use Do you feel safe at home: Yes
[2021-02-25] MEDS: Bacitracin 1 PACKET (12:15)
--- NOTE | 2021-02-25 12:15 | PDOC.HHF2F_ITS ---
Home Health Certification Home Health Certification: 1. Encounter Date and Reason I certify that Barb Bullard was seen by Matthew Garcia on 02/25/21 and that I had a [id number] encounter with this patient that meets the physician face to face encounter requirements. 2. Clinical Findings Supporting Skilled Need and Homebound Status I certify that home health services are medically necessary, include either intermittent correction and/or physical/speech therapy, and that this patient is homebound in that absences from the home require considerable and taxing effort and are infrequent or of short duration, or are attributable to the need to receive medical care. [X] (a) Attached documentation from encounter provides clinical findings supporting skilled need and homebound status (including what assistance patient requires to leave the home). The encounter with the patient was in whole, or in part, for the following medical condition, which is the primary reason for home health care: BRITNI,anemia,UTI Half-Way: nursing to assist patient in care of her nephrostomy tubes and dressings and educate patient and family about drainage of the nephrostomy tube bags. Nursing to coordinate w/ PCP and patient's specialists any change in meds or new lab orders or new patient care orders. M.S.W. to be on consult to coordinate patient care services. Physical Therapy: P.T. and O.T. to evaluate and treat patient regarding deconditioning from her acute illness Speech Therapy: Homebound: patient recent illness w/ sepsis, obstructive uropathy and bladder mass and lung mass have compromised the patient's health to such a degree that travel outside her home to receive health care services would put her at risk of further decline in her condition. 3. Certification and Authentication I certify that I composed the above information based on my clinical judgement relating to this patient's medical condition and, if applicable, clinical findings communicated to me by the NPP or inpatient physician who performed the Home Health Referral. All further orders will be obtained through Eren Preston (Community Based Physician - PCP)
== END 2021-02-25 12:55 | disposition home health service (06) | DRG 854 ==
LOC: ER 20:04 → MS 21:30
PROVIDERS: Internal Medicine; Urology; Admitting Provider General Practice; Emergency Provider Physician Assistant; Visit Provider General Practice
PROC: 0TBB8ZX Excision of Bladder, Via Natural or Artificial Opening Endoscopic, Diagnostic (ICD-10-PCS; CPT 52204; principal; 2021-02-19 12:30)
DX: A40.8 Other streptococcal sepsis (principal); N17.9 Acute kidney failure, unspecified; J98.11 Atelectasis; D62 Acute posthemorrhagic anemia; N39.0 Urinary tract infection, site not specified; N13.39 Other hydronephrosis; N18.9 Chronic kidney disease, unspecified; R63.4 Abnormal weight loss; N32.89 Other specified disorders of bladder; C67.1 Malignant neoplasm of dome of bladder; D75.838 Other thrombocytosis; D49.4 Neoplasm of unspecified behavior of bladder; E53.8 Deficiency of other specified B group vitamins; R31.0 Gross hematuria; B95.4 Other streptococcus as the cause of diseases classified elsewhere; Z68.25 Body mass index [BMI] 25.0-25.9, adult; J98.8 Other specified respiratory disorders; R53.1 Weakness; R91.8 Other nonspecific abnormal finding of lung field; Z87.891 Personal history of nicotine dependence; E87.5 Hyperkalemia; Z20.822 Contact with and (suspected) exposure to COVID-19; Z93.6 Other artificial openings of urinary tract status; R65.20 Severe sepsis without septic shock; B96.20 Unspecified Escherichia coli [E. coli] as the cause of diseases classified elsewhere; J98.4 Other disorders of lung
CPT/HCPCS: 52204; 36410; 36415; 50432; 71250; 80048; 80053; 80076; 83690; 85027; 86850; 86900; 86901; 86920; 87040; 87077; 87635; 88305; 93005; 96361; 96365; 96366; 99222; 99232; 99291; 70450; 70551; 74176; 74420; 81003; 81015; 82040; 82607; 82728; 82746; 83540; 83550; 83605; 83735; 84100; 84443; 85014; 85018; 85025; 85045; 87086; 87186; 88361; 93010; 99233; 99239; A0425; A0426; J0696; J2001; J2543; J3480; J3490; P9016

== ENCOUNTER → 2021-02-19 14:49 | Outpatient (BNVA) | payer MEDICARE, SELFPAY | PROVIDERS: Visit Provider Urology | DX: R69 Illness, unspecified (principal) ==

== ENCOUNTER → 2021-02-26 09:12 | Outpatient (BNVA) | payer MEDICARE, SELFPAY | PROVIDERS: Visit Provider Urology | DX: N32.89 Other specified disorders of bladder (principal) | CPT/HCPCS: 99441 ==

== ENCOUNTER → 2021-03-02 08:02 | Outpatient (BNVA) | payer MEDICARE, SELFPAY | PROVIDERS: Visit Provider Urology | DX: C67.9 Malignant neoplasm of bladder, unspecified (principal) | CPT/HCPCS: 99443 ==

== ENCOUNTER 2021-03-02 19:37 | Outpatient (REF) | payer MEDICARE, SELFPAY ==
[2021-03-02 19:33] LABS: Abs Immature Grans 0.18 10^3/uL (0.0-0.06); HCT 31.8 % (36.0-46.0); HGB 9.4 g/dL (11.2-15.7); MCH 24.2 pg (27.0-33.0); MCHC 29.6 % (32.0-36.0); MPV 9.5 fL (8.0-11.0); Nucleated RBC 0 %; RBC 3.88 10^6/uL (3.93-5.22); RDW 26.2 % (11.7-14.6); RDW-SD 75.9 fL; WBC 18.51 10^3/uL (4.4-10.8)
[2021-03-02 19:49] LABS: Platelet Count 882 10^3/uL (130-400)
[2021-03-02 20:37] LABS: Absolute Eosinophil Count 0.19 10^3/uL (0.0-0.7); Absolute Lymphocyte Count 0.74 10^3/uL (1.2-3.4); Absolute Monocyte Count 1.11 10^3/uL (0.1-0.8); Absolute Neutrophil Count 16.29 10^3/uL (1.2-6.7); Bands % 1; Metamyelocytes % 1
[2021-03-02 20:38] LABS: Anisocytosis 3+; Diff Comment Manual Differential; Hypochromasia 2+; Microcytosis 1+
[2021-03-02 20:59] LABS: ALT 21 U/L (14-59); AST 15 U/L (15-37); Albumin 2.2 g/dL (3.4-5.0); Alkaline Phosphatase 97 U/L (46-116); Anion Gap 12.4 mmol/L (3-11); BUN 27 mg/dL (7-18); Bilirubin, Total 0.2 mg/dL (0.2-1.0); CO2 23.6 mmol/L (21.0-32.0); CREATININE 1.6 mg/dL (0.55-1.02); Calcium 8.9 mg/dL (8.5-10.1); Calculated LDL 77 mg/dL (<100); Chloride 104 mmol/L (98-107); Cholesterol 133 mg/dL (<200); Estimated GFR 31.96 (mL/min/1.73m2); Glucose 94 mg/dL (74-106); HDL Cholesterol 34 mg/dL (40-60); Sodium 140 mmol/L (136-145); Total Protein 8.9 g/dL (6.4-8.2); Triglyceride 113 mg/dL (<150)
[2021-03-05 09:47] LABS: Hepatitis C Ab w Rflx HCV PCR Negative (Negative)
[2021-03-05 11:09] LABS: HIV-1/2 Ag & Ab Screen Negative (Negative)
== END 2021-03-02 19:38 | disposition home or self-care (01) ==
LOC: NCHCN 19:37
PROVIDERS: Visit Provider Nurse Practitioner Family
DX: C67.9 Malignant neoplasm of bladder, unspecified (principal); N17.9 Acute kidney failure, unspecified; J98.4 Other disorders of lung; Z11.59 Encounter for screening for other viral diseases; R79.89 Other specified abnormal findings of blood chemistry; Z11.4 Encounter for screening for human immunodeficiency virus [HIV]
CPT/HCPCS: 80053; 80061; 86803; 87389; 85025

== ENCOUNTER 2021-03-21 14:41 | Emergency (ER) | payer MEDICARE, SELFPAY ==
[2021-03-21 15:11] VITALS: BP 133/69; PULSE 105; RESP 18; O2SAT 98
--- NOTE | 2021-03-21 18:10 | ED.GENADUL_ITS ---
Discharge Plan Disposition Patient Disposition: HOME Condition: Stable Discharge Details Clinical Impression: Renal failure, Obstructive uropathy, Complication of nephrostomy, Leukocytosis Primary Care Provider: Eren Shah ED Provider: Debbi Bella Home Meds and New Rx's Prescriptions: No Action ferrous sulfate 325 mg (65 mg iron) tablet,delayed release (DR/EC) 325 mg PO BID Qty: 60 RF: 0 Discharge Instructions Instructions: Leukocytosis (ED) Additional Instructions: Please go to the emergency room tomorrow to have your blood work rechecked, recommend repeat BMP today level of your right nephrostomy tube is blocked Your creatinine level 1.9 today, if this continues to increase you will need to be transferred to [facility] sooner If you develop fever, chills, or any decreased level from your left nephrostomy tube you must be reevaluated immediately You should not have anything by mouth after 12:00 AM on the as you will likely be having your surgery on that day, they will call you from [facility] between 7 and 8 AM and be prepared for a ride down to [facility] TAVR procedure performed Referrals: Leandro Arzate MD [ [facility] STAFF PHYSICIAN] - Eren Shah PA [Primary Care Provider] - Discharge Data Discharge Date/Time-TO BE ENTERED AT DEPARTURE: 03/21/21 20:16 Medical Decision Making Patient is alert, oriented, of decisional capacity, quite pleasant and patient throughout this evaluation She does have a leukocytosis, 27,000, I do not see this is markedly changed from her prior specimen She also has thrombocytosis, this is not acutely changed when compared to prior Her creatinine has increased from 1.6-1.9, this is not a dramatic change I did discuss the case dr Ball urology at [facility] and he recommends I speak with interventional radiology as he does not have any additional input Interventional radiology with Dr. Clement. And he recommends interventional placement of an additional nephrostomy tube, they will call her on Friday to schedule placement Patient is requesting discharge home, I think she stable at this time to do so, she will need reassessment tomorrow She will be n.p.o. after midnight tomorrow for surgical replacement of her nephrostomy tube on Friday She is instructed to return immediately should she have any new or worsening complaints, she discharged home in stable condition with stable vitals at this time Medical Records Medical records reviewed: Yes I reviewed the patient's medical records. Lab Data Lab results reviewed: Yes I reviewed the patient's lab results. HPI General Mode of arrival: ambulatory . Date/Time Provider Initiated Documentation: 03/21/21 15:33 . Limitations to Documentation: no limitations . Information obtained by: patient . HPI Narrative: This 70-year-old female with past medical history of bladder cancer, leukocytosis, thrombocytosis, BRITNI presents with decreased outflow from her right nephrostomy. She states that she noticed with morning. She has had drainage from bilateral nephrostomy tubes. She states that she has not had any urine output from the right nephrostomy tube today. The left tube is draining fine. She denies any weakness or dizziness. She denies any chest pain or shortness of breath. She denies any urinary symptoms. She states that she had a urinalysis done a few days prior to arrival and this was negative for infection. She denies any fever or chills. Related Data Home Medications Medication Instructions Recorded Confirmed ferrous sulfate 325 mg PO BID #60 tab 02/25/21 03/21/21 Previous Rx's Medication Instructions Recorded ferrous sulfate 325 mg PO BID #60 tab 02/25/21 Allergies Allergy/AdvReac Type Severity Reaction Status Date / Time No Known Allergies Allergy Unverified 03/21/21 15:13 General Stated Complaint: GenMedical GOOD: 3 Review of Systems All systems reviewed & are unremarkable except as noted in HPI and below [facility] Active Problem List (Updated 03/21/21 @ 20:00 by CLAIRE Morley) Complication of nephrostomy (Acute) Leukocytosis (Acute) Bladder cancer (Acute) Palliative care patient (Acute) Folate deficiency (Acute) Thrombocytosis (Acute) Anemia due to acute blood loss (Acute) BRITNI (acute kidney injury) (Acute) Obstructive uropathy (Acute) Bilateral hydronephrosis (Acute) Airway obstruction (Acute) Lung mass (Acute) Anemia (Chronic) Renal failure (Chronic) Social History Smoking/Tobacco Use Status: Former Tobacco Use Smoking risk assessment performed?: Yes Alcohol Intake: never Substance use type: does not use Do you feel safe at home: Yes Do you feel safe in your relationship?: Yes Exam Const General: cooperative, comfortable and no acute distress Eyes Pupils: PERRL Chest Chest: normal inspection of the chest Resp Effort & Inspection: normal respiratory effort Auscultation: clear to auscultation bilaterally Cardio Rate: regular rate Rhythm: regular rhythm GI Other: To nephrostomy tube in place, no surrounding erythema or drainage Right nephrostomy tube with sediment noted in tubing, urine noted in tubing No CVA tenderness Skin General skin exam: no rashes or lesions noted Neuro General: patient alert and patient oriented x3 Extrem General: normal to inspection Course Vital Signs Vital signs: Vital Signs Pulse 105 H 03/21/21 15:11 Respiratory Rate 18 03/21/21 15:11 Blood Pressure 133/69 03/21/21 15:11 Pulse Oximetry 98 03/21/21 15:11 Pulse 105 H 03/21/21 15:11 Respiratory Rate 18 03/21/21 15:11 Respiratory Effort Non-Labored 03/21/21 15:13 Blood Pressure 133/69 03/21/21 15:11 Pulse Oximetry 98 03/21/21 15:11 Oxygen Delivery Method Room Air 03/21/21 15:11 Oxygen Flow Rate 0 03/21/21 15:11 Pain Level 0 03/21/21 15:11
[2021-03-21 18:43] LABS: HCT 33.9 % (36.0-46.0); HGB 10.2 g/dL (11.2-15.7); MCHC 30.1 % (32.0-36.0); MCV 79.8 fL (80-95); MPV 9.2 fL (8.0-11.0); Nucleated RBC 0 %; RBC 4.25 10^6/uL (3.93-5.22); RDW 23.6 % (11.7-14.6)
[2021-03-21 18:49] LABS: WBC 27.87 10^3/uL (4.4-10.8)
[2021-03-21 18:50] LABS: Platelet Count 871 10^3/uL (130-400)
[2021-03-21 18:52] LABS: Anion Gap 12.8 mmol/L (3-11); BUN 39 mg/dL (7-18); CO2 20.2 mmol/L (21.0-32.0); CREATININE 1.9 mg/dL (0.55-1.02); Calcium 10.3 mg/dL (8.5-10.1); Chloride 102 mmol/L (98-107); Estimated GFR 26.21 (mL/min/1.73m2); Glucose 99 mg/dL (74-106); Potassium 4.1 mmol/L (3.5-5.1); Sodium 135 mmol/L (136-145)
[2021-03-21 19:19] LABS: Absolute Neutrophil Count 22.57 10^3/uL (1.2-6.7)
[2021-03-21 19:20] LABS: Absolute Eosinophil Count 1.11 10^3/uL (0.0-0.7); Absolute Lymphocyte Count 2.79 10^3/uL (1.2-3.4); Absolute Monocyte Count 1.39 10^3/uL (0.1-0.8); Anisocytosis 3+; Diff Comment Manual Differential; Hypochromasia 1+; Microcytosis 1+
[2021-03-21 20:16] VITALS: BP 123/74; PULSE 85; RESP 18; O2SAT 99
== END 2021-03-21 20:16 | disposition home or self-care (01) ==
PROVIDERS: Emergency Provider Physician Assistant; PCP Nurse Practitioner Family
DX: N17.9 Acute kidney failure, unspecified (principal); N13.9 Obstructive and reflux uropathy, unspecified; T83.092A Other mechanical complication of nephrostomy catheter, initial encounter; D72.829 Elevated white blood cell count, unspecified
CPT/HCPCS: 80048; 99281; 85025; 99283

== ENCOUNTER 2021-05-15 01:13 | Outpatient (RCR) | payer MEDICARE, SELFPAY ==
[2021-05-09] MEDS: Normal Saline Flush 10 ML SYR IVP (08:37)
[2021-05-09 08:47] LABS: Abs Immature Grans 0.04 10^3/uL (0.0-0.06); Absolute Basophil Count 0.22 10^3/uL (0.0-0.2); Absolute Eosinophil Count 1.52 10^3/uL (0.0-0.7); Absolute Lymphocyte Count 1.73 10^3/uL (1.2-3.4); Basophils % 1.8; Eosinophils % 12.5; HCT 29.3 % (36.0-46.0); Immature Grans % 0.3; Lymphocytes % 14.2; MCH 25.6 pg (27.0-33.0); MCHC 30.7 % (32.0-36.0); MCV 83.2 fL (80-95); MPV 9.1 fL (8.0-11.0); Monocytes % 12.3; Neutrophils % 58.9; Nucleated RBC 0 %; RBC 3.52 10^6/uL (3.93-5.22); RDW 16.2 % (11.7-14.6); RDW-SD 49.5 fL; WBC 12.15 10^3/uL (4.4-10.8)
[2021-05-09 08:50] LABS: Absolute Monocyte Count 1.49 10^3/uL (0.1-0.8); Absolute Neutrophil Count 7.16 10^3/uL (1.2-6.7)
[2021-05-09 08:56] LABS: Platelet Count 984 10^3/uL (130-400)
[2021-05-09 09:02] LABS: ALT 20 U/L (14-59); AST 13 U/L (15-37); Albumin 2.7 g/dL (3.4-5.0); Alkaline Phosphatase 133 U/L (46-116); Anion Gap 7.7 mmol/L (3-11); BUN 31 mg/dL (7-18); Bilirubin, Total 0.3 mg/dL (0.2-1.0); CO2 27.3 mmol/L (21.0-32.0); CREATININE 1.8 mg/dL (0.55-1.02); Calcium 8.6 mg/dL (8.5-10.1); Chloride 103 mmol/L (98-107); Glucose 114 mg/dL (74-106); Potassium 3.1 mmol/L (3.5-5.1); Sodium 138 mmol/L (136-145); TSH 1.81 uIU/mL (0.36-3.74); Total Protein 7.9 g/dL (6.4-8.2)
[2021-05-09 09:36] LABS: FREE T4 0.95 ng/dL (0.76-1.46)
[2021-05-15] MEDS: Normal Saline Flush 10 ML SYR IVP (09:15)
[2021-05-15 09:31] LABS: Abs Immature Grans 0.08 10^3/uL (0.0-0.06); Absolute Basophil Count 0.14 10^3/uL (0.0-0.2); Absolute Eosinophil Count 1.77 10^3/uL (0.0-0.7); Absolute Lymphocyte Count 2.38 10^3/uL (1.2-3.4); Absolute Monocyte Count 1.32 10^3/uL (0.1-0.8); Basophils % 1.2; Eosinophils % 14.9; HCT 31.7 % (36.0-46.0); HGB 9.7 g/dL (11.2-15.7); Immature Grans % 0.7; MCH 25.7 pg (27.0-33.0); MCHC 30.6 % (32.0-36.0); MCV 84.1 fL (80-95); MPV 8.6 fL (8.0-11.0); Monocytes % 11.1; Neutrophils % 52.1; Nucleated RBC 0 %; RBC 3.77 10^6/uL (3.93-5.22); RDW 16.7 % (11.7-14.6); RDW-SD 50.4 fL
[2021-05-15 09:45] LABS: Platelet Count 958 10^3/uL (130-400)
[2021-05-15 09:55] LABS: ALT 24 U/L (14-59); AST 29 U/L (15-37); Albumin 3.1 g/dL (3.4-5.0); Alkaline Phosphatase 127 U/L (46-116); Anion Gap 9.3 mmol/L (3-11); BUN 24 mg/dL (7-18); Bilirubin, Total 0.6 mg/dL (0.2-1.0); CO2 25.7 mmol/L (21.0-32.0); CREATININE 1.8 mg/dL (0.55-1.02); Calcium 8.9 mg/dL (8.5-10.1); Chloride 101 mmol/L (98-107); Glucose 97 mg/dL (74-106); Potassium 4.2 mmol/L (3.5-5.1); Sodium 136 mmol/L (136-145); Total Protein 8.7 g/dL (6.4-8.2)
== END 2021-05-28 23:59 | disposition home or self-care (01) ==
LOC: INF 01:13
PROVIDERS: PCP Nurse Practitioner Family; Visit Provider Internal Medicine
DX: C79.10 Secondary malignant neoplasm of unspecified urinary organs (principal); R94.6 Abnormal results of thyroid function studies; Z45.2 Encounter for adjustment and management of vascular access device
CPT/HCPCS: 36591; 80053; 84439; 84443; 85025

== ENCOUNTER 2021-06-20 00:55 | Outpatient (RCR) | payer MEDICARE, SELFPAY ==
[2021-06-05] MEDS: Normal Saline Flush 10 ML SYR IVP (08:53)
[2021-06-05 09:13] LABS: Abs Immature Grans 0.05 10^3/uL (0.0-0.06); Absolute Basophil Count 0.06 10^3/uL (0.0-0.2); Absolute Eosinophil Count 1.24 10^3/uL (0.0-0.7); Absolute Lymphocyte Count 2.09 10^3/uL (1.2-3.4); Absolute Monocyte Count 0.86 10^3/uL (0.1-0.8); Absolute Neutrophil Count 6.44 10^3/uL (1.2-6.7); Basophils % 0.6; Eosinophils % 11.5; HCT 35.9 % (36.0-46.0); HGB 10.7 g/dL (11.2-15.7); Immature Grans % 0.5; Lymphocytes % 19.5; MCH 25.6 pg (27.0-33.0); MCHC 29.8 % (32.0-36.0); MCV 85.9 fL (80-95); MPV 8.9 fL (8.0-11.0); Neutrophils % 59.9; Nucleated RBC 0 %; Platelet Count 608 10^3/uL (130-400); RBC 4.18 10^6/uL (3.93-5.22); RDW-SD 44.1 fL; WBC 10.74 10^3/uL (4.4-10.8)
[2021-06-05 09:35] LABS: ALT 13 U/L (14-59); AST 17 U/L (15-37); Albumin 2.8 g/dL (3.4-5.0); Alkaline Phosphatase 81 U/L (46-116); BUN 21 mg/dL (7-18); Bilirubin, Total 0.5 mg/dL (0.2-1.0); CREATININE 1.5 mg/dL (0.55-1.02); Calcium 9.2 mg/dL (8.5-10.1); Chloride 105 mmol/L (98-107); Estimated GFR 34.43 (mL/min/1.73m2); FREE T4 0.85 ng/dL (0.76-1.46); Glucose 98 mg/dL (74-106); Potassium 3.6 mmol/L (3.5-5.1); Sodium 140 mmol/L (136-145); TSH 2.93 uIU/mL (0.36-3.74); Total Protein 8.2 g/dL (6.4-8.2)
== END 2021-06-25 23:59 | disposition home or self-care (01) ==
LOC: INF 00:55
PROVIDERS: PCP Nurse Practitioner Family; Visit Provider Internal Medicine
DX: C79.10 Secondary malignant neoplasm of unspecified urinary organs (principal); R94.6 Abnormal results of thyroid function studies; Z45.2 Encounter for adjustment and management of vascular access device; E35 Disorders of endocrine glands in diseases classified elsewhere
CPT/HCPCS: 36591; 80053; 84439; 84443; 85025

== ENCOUNTER 2021-07-17 09:00 | Outpatient (RCR) | payer MEDICARE, SELFPAY ==
[2021-06-26 10:25] LABS: Abs Immature Grans 0.03 10^3/uL (0.0-0.06); Absolute Basophil Count 0.04 10^3/uL (0.0-0.2); Absolute Eosinophil Count 0.86 10^3/uL (0.0-0.7); Absolute Monocyte Count 0.86 10^3/uL (0.1-0.8); Absolute Neutrophil Count 5.74 10^3/uL (1.2-6.7); Basophils % 0.4; Eosinophils % 8.7; HCT 35.2 % (36.0-46.0); HGB 10.8 g/dL (11.2-15.7); Immature Grans % 0.3; Lymphocytes % 23.4; MCH 25.8 pg (27.0-33.0); MCHC 30.7 % (32.0-36.0); MCV 84.2 fL (80-95); MPV 8.7 fL (8.0-11.0); Monocytes % 8.7; Neutrophils % 58.5; Nucleated RBC 0 %; Platelet Count 578 10^3/uL (130-400); RBC 4.18 10^6/uL (3.93-5.22); RDW-SD 42.8 fL; WBC 9.83 10^3/uL (4.4-10.8)
[2021-06-26 11:21] LABS: ALT 10 U/L (14-59); AST 18 U/L (15-37); Albumin 2.9 g/dL (3.4-5.0); Alkaline Phosphatase 69 U/L (46-116); Anion Gap 9.5 mmol/L (3-11); BUN 17 mg/dL (7-18); Bilirubin, Total 0.6 mg/dL (0.2-1.0); CO2 24.5 mmol/L (21.0-32.0); CREATININE 1.3 mg/dL (0.55-1.02); Calcium 8.8 mg/dL (8.5-10.1); Chloride 103 mmol/L (98-107); Estimated GFR 40.61 (mL/min/1.73m2); FREE T4 0.85 ng/dL (0.76-1.46); Glucose 90 mg/dL (74-106); Potassium 4.1 mmol/L (3.5-5.1); Sodium 137 mmol/L (136-145); TSH 3.25 uIU/mL (0.36-3.74); Total Protein 8.1 g/dL (6.4-8.2)
[2021-06-27] MEDS: Normal Saline Flush 10 ML SYR IVP (10:00)
[2021-07-17 09:20] LABS: Abs Immature Grans 0.06 10^3/uL (0.0-0.06); Absolute Basophil Count 0.06 10^3/uL (0.0-0.2); Absolute Eosinophil Count 0.84 10^3/uL (0.0-0.7); Absolute Lymphocyte Count 1.81 10^3/uL (1.2-3.4); Absolute Monocyte Count 0.88 10^3/uL (0.1-0.8); Absolute Neutrophil Count 6.32 10^3/uL (1.2-6.7); Basophils % 0.6; Eosinophils % 8.4; HGB 10.9 g/dL (11.2-15.7); Immature Grans % 0.6; Lymphocytes % 18.2; MCH 24.8 pg (27.0-33.0); MCHC 30.3 % (32.0-36.0); MPV 8.6 fL (8.0-11.0); Monocytes % 8.8; Neutrophils % 63.4; Nucleated RBC 0 %; Platelet Count 748 10^3/uL (130-400); RBC 4.39 10^6/uL (3.93-5.22); RDW 13.2 % (11.7-14.6); RDW-SD 39.8 fL; WBC 9.97 10^3/uL (4.4-10.8)
[2021-07-17 09:39] LABS: ALT 12 U/L (14-59); AST 10 U/L (15-37); Albumin 2.8 g/dL (3.4-5.0); Alkaline Phosphatase 68 U/L (46-116); Anion Gap 8.9 mmol/L (3-11); BUN 16 mg/dL (7-18); Bilirubin, Total 0.5 mg/dL (0.2-1.0); CO2 24.1 mmol/L (21.0-32.0); CREATININE 1.4 mg/dL (0.55-1.02); Calcium 8.8 mg/dL (8.5-10.1); Chloride 102 mmol/L (98-107); Estimated GFR 37.18 (mL/min/1.73m2); FREE T4 1.12 ng/dL (0.76-1.46); Glucose 96 mg/dL (74-106); Potassium 3.8 mmol/L (3.5-5.1); Sodium 135 mmol/L (136-145); Total Protein 8.7 g/dL (6.4-8.2)
[2021-07-17] MEDS: Normal Saline Flush 10 ML SYR IVP (10:14)
== END 2021-07-26 23:59 | disposition home or self-care (01) ==
LOC: INF 09:00
PROVIDERS: PCP Nurse Practitioner Family; Visit Provider Internal Medicine
DX: C79.10 Secondary malignant neoplasm of unspecified urinary organs (principal); R94.6 Abnormal results of thyroid function studies; E35 Disorders of endocrine glands in diseases classified elsewhere; Z45.2 Encounter for adjustment and management of vascular access device
CPT/HCPCS: 36591; 80053; 84439; 84443; 85025

== ENCOUNTER 2021-08-07 02:37 | Outpatient (RCR) | payer MEDICARE, SELFPAY ==
[2021-08-07] MEDS: Normal Saline Flush 10 ML SYR IVP (08:00)
[2021-08-07 08:11] LABS: Abs Immature Grans 0.03 10^3/uL (0.0-0.06); Absolute Basophil Count 0.05 10^3/uL (0.0-0.2); Absolute Lymphocyte Count 2.25 10^3/uL (1.2-3.4); Absolute Monocyte Count 0.83 10^3/uL (0.1-0.8); Absolute Neutrophil Count 6.03 10^3/uL (1.2-6.7); Basophils % 0.5; HCT 35.8 % (36.0-46.0); HGB 10.9 g/dL (11.2-15.7); Immature Grans % 0.3; Lymphocytes % 22.5; MCH 25.2 pg (27.0-33.0); MCHC 30.4 % (32.0-36.0); MCV 82.7 fL (80-95); MPV 8.9 fL (8.0-11.0); Monocytes % 8.3; Neutrophils % 60.4; Nucleated RBC 0 %; Platelet Count 541 10^3/uL (130-400); RBC 4.33 10^6/uL (3.93-5.22); RDW 14.6 % (11.7-14.6); RDW-SD 43.9 fL; WBC 9.99 10^3/uL (4.4-10.8)
[2021-08-07 08:35] LABS: ALT 16 U/L (14-59); AST 13 U/L (15-37); Alkaline Phosphatase 65 U/L (46-116); Anion Gap 7.3 mmol/L (3-11); BUN 26 mg/dL (7-18); Bilirubin, Total 0.3 mg/dL (0.2-1.0); CO2 25.7 mmol/L (21.0-32.0); CREATININE 1.4 mg/dL (0.55-1.02); Calcium 8.6 mg/dL (8.5-10.1); Chloride 106 mmol/L (98-107); Estimated GFR 37.18 (mL/min/1.73m2); FREE T4 0.79 ng/dL (0.76-1.46); Glucose 105 mg/dL (74-106); Potassium 3.9 mmol/L (3.5-5.1); Sodium 139 mmol/L (136-145); TSH 3.98 uIU/mL (0.36-3.74); Total Protein 8.2 g/dL (6.4-8.2)
[2021-08-07 09:07] LABS: Ferritin 233 ng/mL (8-252)
[2021-08-07 09:43] LABS: Iron 27 ug/dL (50-170); Total Iron Binding Capacity 263 ug/dL (250-450); Transferrin Sat 10 % (15-50)
== END 2021-08-25 23:59 | disposition home or self-care (01) ==
LOC: INF 02:37
PROVIDERS: PCP Nurse Practitioner Family; Visit Provider Internal Medicine
DX: D63.8 Anemia in other chronic diseases classified elsewhere (principal); R94.6 Abnormal results of thyroid function studies; Z45.2 Encounter for adjustment and management of vascular access device; C79.10 Secondary malignant neoplasm of unspecified urinary organs; E35 Disorders of endocrine glands in diseases classified elsewhere
CPT/HCPCS: 36591; 80053; 82728; 83540; 83550; 84439; 84443; 85025

== ENCOUNTER 2021-09-18 02:24 | Outpatient (RCR) | payer MEDICARE, SELFPAY ==
[2021-08-28 08:42] LABS: Abs Immature Grans 0.03 10^3/uL (0.0-0.06); Absolute Basophil Count 0.07 10^3/uL (0.0-0.2); Absolute Lymphocyte Count 2.18 10^3/uL (1.2-3.4); Absolute Monocyte Count 0.75 10^3/uL (0.1-0.8); Absolute Neutrophil Count 6.84 10^3/uL (1.2-6.7); Basophils % 0.6; Eosinophils % 8.4; HCT 37.7 % (36.0-46.0); HGB 11.7 g/dL (11.2-15.7); Immature Grans % 0.3; Lymphocytes % 20.2; MCH 25.8 pg (27.0-33.0); MCV 83 fL (80-95); Neutrophils % 63.5; RBC 4.54 10^6/uL (3.93-5.22); RDW 15.6 % (11.7-14.6); RDW-SD 47.4 fL; WBC 10.77 10^3/uL (4.4-10.8)
[2021-08-28 09:03] LABS: ALT 12 U/L (14-59); AST 13 U/L (15-37); Albumin 3.1 g/dL (3.4-5.0); Alkaline Phosphatase 76 U/L (46-116); Anion Gap 7.8 mmol/L (3-11); BUN 21 mg/dL (7-18); Bilirubin, Total 0.7 mg/dL (0.2-1.0); CO2 25.2 mmol/L (21.0-32.0); CREATININE 1.5 mg/dL (0.55-1.02); Calcium 8.9 mg/dL (8.5-10.1); Chloride 106 mmol/L (98-107); Estimated GFR 34.33 (mL/min/1.73m2); FREE T4 0.88 ng/dL (0.76-1.46); Glucose 98 mg/dL (74-106); Sodium 139 mmol/L (136-145); TSH 3.28 uIU/mL (0.36-3.74); Total Protein 8.3 g/dL (6.4-8.2)
[2021-08-28 09:22] LABS: Diff Comment PLT Morph Reviewed; RBC Morphology Normal
[2021-08-28] MEDS: Normal Saline Flush 10 ML SYR IVP (09:23)
[2021-09-18] MEDS: Normal Saline Flush 10 ML SYR IVP (08:45)
[2021-09-18 08:50] LABS: Abs Immature Grans 0.04 10^3/uL (0.0-0.06); Absolute Basophil Count 0.05 10^3/uL (0.0-0.2); Absolute Eosinophil Count 0.72 10^3/uL (0.0-0.7); Absolute Lymphocyte Count 2.16 10^3/uL (1.2-3.4); Absolute Monocyte Count 0.71 10^3/uL (0.1-0.8); Absolute Neutrophil Count 6.67 10^3/uL (1.2-6.7); Basophils % 0.5; HCT 36.7 % (36.0-46.0); HGB 11.2 g/dL (11.2-15.7); Immature Grans % 0.4; Lymphocytes % 20.9; MCH 25.2 pg (27.0-33.0); MCHC 30.5 % (32.0-36.0); MCV 83 fL (80-95); MPV 9.2 fL (8.0-11.0); Monocytes % 6.9; Neutrophils % 64.3; Platelet Count 565 10^3/uL (130-400); RBC 4.45 10^6/uL (3.93-5.22); RDW 15.3 % (11.7-14.6); RDW-SD 46.5 fL; WBC 10.35 10^3/uL (4.4-10.8)
[2021-09-18 09:15] LABS: ALT 14 U/L (14-59); AST 13 U/L (15-37); Alkaline Phosphatase 77 U/L (46-116); Anion Gap 8.8 mmol/L (3-11); BUN 22 mg/dL (7-18); Bilirubin, Total 0.5 mg/dL (0.2-1.0); CO2 23.2 mmol/L (21.0-32.0); CREATININE 1.5 mg/dL (0.55-1.02); Calcium 8.6 mg/dL (8.5-10.1); Chloride 107 mmol/L (98-107); Estimated GFR 34.33 (mL/min/1.73m2); FREE T4 0.88 ng/dL (0.76-1.46); Glucose 96 mg/dL (74-106); Potassium 4.1 mmol/L (3.5-5.1); Sodium 139 mmol/L (136-145); TSH 5.55 uIU/mL (0.36-3.74); Total Protein 8.1 g/dL (6.4-8.2)
== END 2021-09-25 23:59 | disposition home or self-care (01) ==
LOC: INF 02:24
PROVIDERS: PCP Nurse Practitioner Family; Visit Provider Internal Medicine
DX: R94.6 Abnormal results of thyroid function studies (principal); Z45.2 Encounter for adjustment and management of vascular access device; C79.10 Secondary malignant neoplasm of unspecified urinary organs
CPT/HCPCS: 36591; 80053; 84439; 84443; 85025

== ENCOUNTER 2021-09-18 09:48 | Outpatient (REF) | payer MEDICARE, SELFPAY ==
[2021-09-18 10:21] LABS: Bilirubin Negative (Negative); Blood Negative (Negative); Clarity Cloudy (Clear); Glucose Negative (Negative); Ketones Negative (Negative); Leukocyte Esterase Large (Negative); Nitrite Positive (Negative); Urobilinogen 0.2 EU/dL (Up TO 0.2); pH >= 9.0 (5-8)
[2021-09-18 10:28] LABS: Bacteria Moderate HPF (Negative); Casts 3-5 Hyaline LPF (Negative); Crystals Moderate Amorphous HPF (Negative); Epithelial Cells Few HPF (Negative); Mucus Negative (Negative); RBC 0-2 HPF (0-2); WBC >50 HPF (0-5)
[2021-09-18 10:29] LABS: C & S Indicated? Yes
== END 2021-09-18 09:49 | disposition home or self-care (01) ==
LOC: LBN 09:48
PROVIDERS: PCP Nurse Practitioner Family; Visit Provider Internal Medicine
DX: N39.0 Urinary tract infection, site not specified (principal); T83.512A Infection and inflammatory reaction due to nephrostomy catheter, initial encounter
CPT/HCPCS: 87077; 81003; 81015; 87086; 87186

== ENCOUNTER 2021-10-09 02:07 | Outpatient (RCR) | payer MEDICARE, SELFPAY ==
[2021-10-09] MEDS: Normal Saline Flush 10 ML SYR IVP (07:56)
[2021-10-09 08:23] LABS: Abs Immature Grans 0.03 10^3/uL (0.0-0.06); Absolute Basophil Count 0.08 10^3/uL (0.0-0.2); Absolute Eosinophil Count 0.68 10^3/uL (0.0-0.7); Absolute Lymphocyte Count 2.67 10^3/uL (1.2-3.4); Absolute Monocyte Count 0.72 10^3/uL (0.1-0.8); Absolute Neutrophil Count 6.39 10^3/uL (1.2-6.7); Basophils % 0.8; Eosinophils % 6.4; HCT 38.3 % (36.0-46.0); HGB 11.9 g/dL (11.2-15.7); Immature Grans % 0.3; Lymphocytes % 25.3; MCH 25.8 pg (27.0-33.0); MCHC 31.1 % (32.0-36.0); MCV 83 fL (80-95); MPV 9.8 fL (8.0-11.0); Monocytes % 6.8; Neutrophils % 60.4; Platelet Count 561 10^3/uL (130-400); RBC 4.61 10^6/uL (3.93-5.22); RDW 15.1 % (11.7-14.6); RDW-SD 46.3 fL; WBC 10.57 10^3/uL (4.4-10.8)
[2021-10-09 08:47] LABS: ALT 12 U/L (14-59); AST 13 U/L (15-37); Albumin 3.3 g/dL (3.4-5.0); Alkaline Phosphatase 80 U/L (46-116); Anion Gap 7.1 mmol/L (3-11); BUN 27 mg/dL (7-18); Bilirubin, Total 0.8 mg/dL (0.2-1.0); CO2 24.9 mmol/L (21.0-32.0); CREATININE 1.5 mg/dL (0.55-1.02); Calcium 8.9 mg/dL (8.5-10.1); Chloride 107 mmol/L (98-107); Estimated GFR 34.33 (mL/min/1.73m2); FREE T4 0.77 ng/dL (0.76-1.46); Glucose 92 mg/dL (74-106); Potassium 4.3 mmol/L (3.5-5.1); Sodium 139 mmol/L (136-145); TSH 7.48 uIU/mL (0.36-3.74); Total Protein 8.3 g/dL (6.4-8.2)
== END 2021-10-25 23:59 | disposition home or self-care (01) ==
LOC: INF 02:07
PROVIDERS: PCP Nurse Practitioner Family; Visit Provider Internal Medicine
DX: C79.10 Secondary malignant neoplasm of unspecified urinary organs (principal); E35 Disorders of endocrine glands in diseases classified elsewhere; Z45.2 Encounter for adjustment and management of vascular access device
CPT/HCPCS: 36591; 80053; 84439; 84443; 85025

== ENCOUNTER 2021-11-20 03:11 | Outpatient (RCR) | payer MEDICARE, SELFPAY ==
[2021-10-30 10:20] LABS: Abs Immature Grans 0.03 10^3/uL (0.0-0.06); Absolute Basophil Count 0.06 10^3/uL (0.0-0.2); Absolute Eosinophil Count 0.71 10^3/uL (0.0-0.7); Absolute Lymphocyte Count 2.82 10^3/uL (1.2-3.4); Absolute Monocyte Count 0.56 10^3/uL (0.1-0.8); Absolute Neutrophil Count 7.05 10^3/uL (1.2-6.7); Basophils % 0.5; Eosinophils % 6.3; HCT 39.8 % (36.0-46.0); HGB 12.4 g/dL (11.2-15.7); Immature Grans % 0.3; Lymphocytes % 25.1; MCH 26.2 pg (27.0-33.0); MCHC 31.2 % (32.0-36.0); MCV 84 fL (80-95); MPV 9.2 fL (8.0-11.0); Neutrophils % 62.8; Platelet Count 571 10^3/uL (130-400); RBC 4.74 10^6/uL (3.93-5.22); RDW 14.4 % (11.7-14.6); WBC 11.23 10^3/uL (4.4-10.8)
[2021-10-30] MEDS: Normal Saline Flush 10 ML SYR IVP (10:25)
[2021-10-30 10:55] LABS: ALT 13 U/L (14-59); AST 13 U/L (15-37); Albumin 3.2 g/dL (3.4-5.0); Alkaline Phosphatase 75 U/L (46-116); Anion Gap 8.4 mmol/L (3-11); BUN 20 mg/dL (7-18); Bilirubin, Total 0.5 mg/dL (0.2-1.0); CO2 24.6 mmol/L (21.0-32.0); CREATININE 1.5 mg/dL (0.55-1.02); Calcium 8.4 mg/dL (8.5-10.1); Chloride 105 mmol/L (98-107); Estimated GFR 34.33 (mL/min/1.73m2); Glucose 105 mg/dL (74-106); Potassium 3.7 mmol/L (3.5-5.1); Sodium 138 mmol/L (136-145); TSH 14.28 uIU/mL (0.36-3.74); Total Protein 8.1 g/dL (6.4-8.2)
[2021-11-20 08:05] LABS: Abs Immature Grans 0.04 10^3/uL (0.0-0.06); Absolute Basophil Count 0.03 10^3/uL (0.0-0.2); Absolute Eosinophil Count 0.57 10^3/uL (0.0-0.7); Absolute Lymphocyte Count 2.84 10^3/uL (1.2-3.4); Absolute Monocyte Count 0.84 10^3/uL (0.1-0.8); Absolute Neutrophil Count 6.71 10^3/uL (1.2-6.7); Basophils % 0.3; Eosinophils % 5.2; HCT 39.4 % (36.0-46.0); HGB 12.4 g/dL (11.2-15.7); Immature Grans % 0.4; Lymphocytes % 25.7; MCH 26.7 pg (27.0-33.0); MCHC 31.5 % (32.0-36.0); MCV 85 fL (80-95); MPV 9.1 fL (8.0-11.0); Monocytes % 7.6; Neutrophils % 60.8; Platelet Count 504 10^3/uL (130-400); RBC 4.64 10^6/uL (3.93-5.22); RDW 14.1 % (11.7-14.6); RDW-SD 43.2 fL; WBC 11.04 10^3/uL (4.4-10.8)
[2021-11-20] MEDS: Normal Saline Flush 10 ML SYR IVP (08:10)
[2021-11-20 08:39] LABS: ALT 16 U/L (14-59); AST 12 U/L (15-37); Albumin 3.3 g/dL (3.4-5.0); Alkaline Phosphatase 76 U/L (46-116); Anion Gap 8.7 mmol/L (3-11); BUN 25 mg/dL (7-18); Bilirubin, Total 0.7 mg/dL (0.2-1.0); CO2 25.3 mmol/L (21.0-32.0); CREATININE 1.7 mg/dL (0.55-1.02); Calcium 8.8 mg/dL (8.5-10.1); Chloride 104 mmol/L (98-107); Estimated GFR 29.71 (mL/min/1.73m2); Glucose 95 mg/dL (74-106); Potassium 4.6 mmol/L (3.5-5.1); Sodium 138 mmol/L (136-145); TSH 11.41 uIU/mL (0.36-3.74); Total Protein 8.4 g/dL (6.4-8.2)
== END 2021-11-25 23:59 | disposition home or self-care (01) ==
LOC: INF 03:11
PROVIDERS: PCP Nurse Practitioner Family; Visit Provider Internal Medicine
DX: C79.10 Secondary malignant neoplasm of unspecified urinary organs (principal); R94.6 Abnormal results of thyroid function studies; Z45.2 Encounter for adjustment and management of vascular access device; E35 Disorders of endocrine glands in diseases classified elsewhere
CPT/HCPCS: 36591; 80053; 84439; 84443; 85025

== ENCOUNTER 2021-12-11 01:25 | Outpatient (RCR) | payer MEDICARE, SELFPAY ==
[2021-12-11] MEDS: Normal Saline Flush 10 ML SYR IVP (09:04)
[2021-12-11 09:19] LABS: Abs Immature Grans 0.04 10^3/uL (0.0-0.06); Absolute Basophil Count 0.06 10^3/uL (0.0-0.2); Absolute Eosinophil Count 0.65 10^3/uL (0.0-0.7); Absolute Lymphocyte Count 2.52 10^3/uL (1.2-3.4); Absolute Monocyte Count 0.77 10^3/uL (0.1-0.8); Absolute Neutrophil Count 7.02 10^3/uL (1.2-6.7); Basophils % 0.5; Eosinophils % 5.9; HCT 38.4 % (36.0-46.0); HGB 12.4 g/dL (11.2-15.7); Immature Grans % 0.4; Lymphocytes % 22.8; MCHC 32.3 % (32.0-36.0); MCV 84 fL (80-95); MPV 9.3 fL (8.0-11.0); Neutrophils % 63.4; Platelet Count 563 10^3/uL (130-400); RBC 4.59 10^6/uL (3.93-5.22); RDW 14.1 % (11.7-14.6); RDW-SD 43.2 fL; WBC 11.07 10^3/uL (4.4-10.8)
[2021-12-11 09:49] LABS: ALT 18 U/L (14-59); AST 16 U/L (15-37); Albumin 3.3 g/dL (3.4-5.0); Alkaline Phosphatase 77 U/L (46-116); Anion Gap 6.7 mmol/L (3-11); BUN 21 mg/dL (7-18); Bilirubin, Total 0.7 mg/dL (0.2-1.0); CO2 27.3 mmol/L (21.0-32.0); CREATININE 1.6 mg/dL (0.55-1.02); Calcium 8.7 mg/dL (8.5-10.1); Chloride 105 mmol/L (98-107); Estimated GFR 31.87 (mL/min/1.73m2); FREE T4 0.87 ng/dL (0.76-1.46); Glucose 102 mg/dL (74-106); Potassium 4.3 mmol/L (3.5-5.1); Sodium 139 mmol/L (136-145); Total Protein 8.6 g/dL (6.4-8.2)
== END 2021-12-26 23:59 | disposition home or self-care (01) ==
LOC: INF 01:25
PROVIDERS: PCP Nurse Practitioner Family; Visit Provider Internal Medicine
DX: C79.10 Secondary malignant neoplasm of unspecified urinary organs (principal); R94.6 Abnormal results of thyroid function studies; Z45.2 Encounter for adjustment and management of vascular access device
CPT/HCPCS: 36591; 80053; 84439; 84443; 85025

== ENCOUNTER 2022-01-22 02:42 | Outpatient (RCR) | payer MEDICARE, SELFPAY ==
[2022-01-01 09:20] LABS: Abs Immature Grans 0.03 10^3/uL (0.0-0.06); Absolute Basophil Count 0.05 10^3/uL (0.0-0.2); Absolute Lymphocyte Count 2.35 10^3/uL (1.2-3.4); Absolute Monocyte Count 0.88 10^3/uL (0.1-0.8); Absolute Neutrophil Count 8.02 10^3/uL (1.2-6.7); Basophils % 0.4; HCT 39.5 % (36.0-46.0); HGB 12.4 g/dL (11.2-15.7); Immature Grans % 0.3; Lymphocytes % 19.7; MCH 26.9 pg (27.0-33.0); MCHC 31.4 % (32.0-36.0); MCV 86 fL (80-95); MPV 9.1 fL (8.0-11.0); Monocytes % 7.4; Neutrophils % 67.2; Platelet Count 567 10^3/uL (130-400); RBC 4.61 10^6/uL (3.93-5.22); RDW 14.5 % (11.7-14.6); RDW-SD 45.4 fL; WBC 11.93 10^3/uL (4.4-10.8)
[2022-01-01] MEDS: Normal Saline Flush 10 ML SYR IVP (09:37)
[2022-01-01 09:47] LABS: ALT 16 U/L (14-59); AST 18 U/L (15-37); Albumin 3.3 g/dL (3.4-5.0); Alkaline Phosphatase 84 U/L (46-116); Anion Gap 7.1 mmol/L (3-11); BUN 19 mg/dL (7-18); Bilirubin, Total 0.7 mg/dL (0.2-1.0); CO2 25.9 mmol/L (21.0-32.0); CREATININE 1.7 mg/dL (0.55-1.02); Calcium 8.9 mg/dL (8.5-10.1); Chloride 105 mmol/L (98-107); Estimated GFR 32.06 (mL/min/1.73m2); FREE T4 0.91 ng/dL (0.76-1.46); Glucose 105 mg/dL (74-106); Potassium 4.4 mmol/L (3.5-5.1); Sodium 138 mmol/L (136-145); TSH 14.04 uIU/mL (0.36-3.74); Total Protein 8.9 g/dL (6.4-8.2)
[2022-01-22] MEDS: Normal Saline Flush 10 ML SYR IVP (09:59)
[2022-01-22 10:11] LABS: Abs Immature Grans 0.05 10^3/uL (0.0-0.06); Absolute Basophil Count 0.06 10^3/uL (0.0-0.2); Absolute Eosinophil Count 0.58 10^3/uL (0.0-0.7); Absolute Monocyte Count 0.62 10^3/uL (0.1-0.8); Basophils % 0.5; HCT 36.7 % (36.0-46.0); HGB 11.7 g/dL (11.2-15.7); Immature Grans % 0.4; Lymphocytes % 19.8; MCH 27.6 pg (27.0-33.0); MCHC 31.9 % (32.0-36.0); MCV 87 fL (80-95); MPV 8.8 fL (8.0-11.0); Monocytes % 5.3; Platelet Count 583 10^3/uL (130-400); RBC 4.24 10^6/uL (3.93-5.22); RDW 13.9 % (11.7-14.6); WBC 11.69 10^3/uL (4.4-10.8)
[2022-01-22 10:12] LABS: Absolute Lymphocyte Count 2.31 10^3/uL (1.2-3.4); Absolute Neutrophil Count 8.07 10^3/uL (1.2-6.7)
[2022-01-22 10:55] LABS: ALT 15 U/L (14-59); AST 17 U/L (15-37); Albumin 3.3 g/dL (3.4-5.0); Alkaline Phosphatase 79 U/L (46-116); Anion Gap 8.6 mmol/L (3-11); BUN 21 mg/dL (7-18); Bilirubin, Total 0.6 mg/dL (0.2-1.0); CO2 26.4 mmol/L (21.0-32.0); CREATININE 1.6 mg/dL (0.55-1.02); Calcium 8.9 mg/dL (8.5-10.1); Chloride 101 mmol/L (98-107); Estimated GFR 34.48 (mL/min/1.73m2); FREE T4 1.09 ng/dL (0.76-1.46); Glucose 127 mg/dL (74-106); Potassium 3.8 mmol/L (3.5-5.1); Sodium 136 mmol/L (136-145); TSH 5.37 uIU/mL (0.36-3.74); Total Protein 8.7 g/dL (6.4-8.2)
== END 2022-01-25 23:59 | disposition home or self-care (01) ==
LOC: INF 02:42
PROVIDERS: PCP Nurse Practitioner Family; Visit Provider Internal Medicine
DX: C79.10 Secondary malignant neoplasm of unspecified urinary organs (principal); R94.6 Abnormal results of thyroid function studies; Z45.2 Encounter for adjustment and management of vascular access device
CPT/HCPCS: 36591; 80053; 84439; 84443; 85025

== ENCOUNTER 2022-02-12 19:05 | Outpatient (REF) | payer MEDICARE, SELFPAY ==
[2022-02-12 13:44] LABS: Bilirubin Negative (Negative); Blood Moderate (Negative); Clarity Cloudy (Clear); Glucose Negative (Negative); Ketones Negative (Negative); Leukocyte Esterase Large (Negative); Nitrite Positive (Negative); Specific Gravity 1.015 (1.005-1.025); Urobilinogen 0.2 EU/dL (Up TO 0.2)
[2022-02-12 13:54] LABS: Bacteria Many HPF (Negative); C & S Indicated? Yes; Casts Negative LPF (Negative); Crystals Negative HPF (Negative); Epithelial Cells Negative HPF (Negative); Mucus Negative (Negative); Other Cells Negative (Negative); WBC >50 HPF (0-5)
== END 2022-02-12 19:06 | disposition home or self-care (01) ==
LOC: LBN 19:05
PROVIDERS: Visit Provider Nurse Practitioner Adult Health
DX: C79.11 Secondary malignant neoplasm of bladder (principal); R31.9 Hematuria, unspecified
CPT/HCPCS: 81003; 81015; 87086

== ENCOUNTER 2022-02-19 02:16 | Outpatient (RCR) | payer MEDICARE, SELFPAY ==
[2022-02-12] MEDS: Normal Saline Flush 10 ML SYR IVP (08:48)
[2022-02-12 09:18] LABS: Abs Immature Grans 0.05 10^3/uL (0.0-0.06); Absolute Basophil Count 0.07 10^3/uL (0.0-0.2); Absolute Eosinophil Count 0.56 10^3/uL (0.0-0.7); Absolute Lymphocyte Count 2.24 10^3/uL (1.2-3.4); Absolute Monocyte Count 0.81 10^3/uL (0.1-0.8); Absolute Neutrophil Count 8.23 10^3/uL (1.2-6.7); Basophils % 0.6; Eosinophils % 4.7; HCT 35.7 % (36.0-46.0); HGB 11.2 g/dL (11.2-15.7); Immature Grans % 0.4; Lymphocytes % 18.7; MCH 27.4 pg (27.0-33.0); MCHC 31.4 % (32.0-36.0); MCV 87 fL (80-95); MPV 8.9 fL (8.0-11.0); Monocytes % 6.8; Neutrophils % 68.8; RBC 4.09 10^6/uL (3.93-5.22); RDW 13.2 % (11.7-14.6); RDW-SD 41.8 fL; WBC 11.96 10^3/uL (4.4-10.8)
[2022-02-12 09:40] LABS: ALT 10 U/L (14-59); AST 19 U/L (15-37); Albumin 3.3 g/dL (3.4-5.0); Alkaline Phosphatase 80 U/L (46-116); Anion Gap 7.3 mmol/L (3-11); BUN 21 mg/dL (7-18); Bilirubin, Total 0.5 mg/dL (0.2-1.0); CO2 27.7 mmol/L (21.0-32.0); CREATININE 1.5 mg/dL (0.55-1.02); Calcium 9.6 mg/dL (8.5-10.1); Chloride 105 mmol/L (98-107); Estimated GFR 37.26 (mL/min/1.73m2); FREE T4 1.12 ng/dL (0.76-1.46); Glucose 111 mg/dL (74-106); Potassium 4.6 mmol/L (3.5-5.1); Sodium 140 mmol/L (136-145); TSH 5.89 uIU/mL (0.36-3.74); Total Protein 9.2 g/dL (6.4-8.2)
[2022-02-12 09:47] LABS: Platelet Count 703 10^3/uL (130-400)
[2022-02-19] MEDS: Normal Saline Flush 10 ML SYR IVP (09:43)
[2022-02-19 09:54] LABS: Abs Immature Grans 0.04 10^3/uL (0.0-0.06); Absolute Basophil Count 0.08 10^3/uL (0.0-0.2); Absolute Neutrophil Count 7.33 10^3/uL (1.2-6.7); Basophils % 0.7; Eosinophils % 5.1; HCT 35.1 % (36.0-46.0); HGB 11.1 g/dL (11.2-15.7); Immature Grans % 0.3; Lymphocytes % 22.7; MCH 27.4 pg (27.0-33.0); MCHC 31.6 % (32.0-36.0); MCV 87 fL (80-95); MPV 8.7 fL (8.0-11.0); Monocytes % 7.2; Platelet Count 617 10^3/uL (130-400); RBC 4.05 10^6/uL (3.93-5.22); RDW 13.5 % (11.7-14.6); RDW-SD 42.2 fL; WBC 11.46 10^3/uL (4.4-10.8)
[2022-02-19 09:59] LABS: Absolute Eosinophil Count 0.58 10^3/uL (0.0-0.7); Absolute Monocyte Count 0.83 10^3/uL (0.1-0.8)
[2022-02-19 10:15] LABS: ALT 9 U/L (14-59); AST 11 U/L (15-37); Albumin 3.1 g/dL (3.4-5.0); Alkaline Phosphatase 66 U/L (46-116); Anion Gap 6.9 mmol/L (3-11); BUN 20 mg/dL (7-18); Bilirubin, Total 0.3 mg/dL (0.2-1.0); CO2 26.1 mmol/L (21.0-32.0); CREATININE 1.5 mg/dL (0.55-1.02); Calcium 8.7 mg/dL (8.5-10.1); Chloride 103 mmol/L (98-107); Estimated GFR 37.26 (mL/min/1.73m2); Glucose 97 mg/dL (74-106); Potassium 4.2 mmol/L (3.5-5.1); Sodium 136 mmol/L (136-145); TSH 5.24 uIU/mL (0.36-3.74); Total Protein 8.3 g/dL (6.4-8.2)
== END 2022-02-25 23:59 | disposition home or self-care (01) ==
LOC: INF 02:16
PROVIDERS: Visit Provider Internal Medicine
DX: C79.10 Secondary malignant neoplasm of unspecified urinary organs (principal); R94.6 Abnormal results of thyroid function studies; Z45.2 Encounter for adjustment and management of vascular access device
CPT/HCPCS: 36415; 36591; 80053; 84439; 84443; 85025

== ENCOUNTER 2022-03-12 03:26 | Outpatient (RCR) | payer MEDICARE, SELFPAY ==
[2022-03-12] MEDS: Normal Saline Flush 10 ML SYR IVP (10:24)
[2022-03-12 11:02] LABS: Abs Immature Grans 0.02 10^3/uL (0.0-0.06); Absolute Basophil Count 0.05 10^3/uL (0.0-0.2); Absolute Eosinophil Count 0.53 10^3/uL (0.0-0.7); Absolute Lymphocyte Count 2.17 10^3/uL (1.2-3.4); Absolute Monocyte Count 0.61 10^3/uL (0.1-0.8); Absolute Neutrophil Count 5.76 10^3/uL (1.2-6.7); Basophils % 0.5; Eosinophils % 5.8; HCT 38.3 % (36.0-46.0); Immature Grans % 0.2; Lymphocytes % 23.7; MCH 27.6 pg (27.0-33.0); MCHC 31.3 % (32.0-36.0); MCV 88 fL (80-95); MPV 9.5 fL (8.0-11.0); Monocytes % 6.7; Neutrophils % 63.1; Platelet Count 555 10^3/uL (130-400); RBC 4.35 10^6/uL (3.93-5.22); RDW 12.8 % (11.7-14.6); RDW-SD 41.4 fL; WBC 9.14 10^3/uL (4.4-10.8)
[2022-03-12 11:23] LABS: ALT 9 U/L (14-59); AST 13 U/L (15-37); Albumin 3.3 g/dL (3.4-5.0); Alkaline Phosphatase 86 U/L (46-116); Anion Gap 7.3 mmol/L (3-11); BUN 15 mg/dL (7-18); Bilirubin, Total 0.8 mg/dL (0.2-1.0); CO2 26.7 mmol/L (21.0-32.0); CREATININE 1.7 mg/dL (0.55-1.02); Chloride 103 mmol/L (98-107); Estimated GFR 32.06 (mL/min/1.73m2); FREE T4 1.27 ng/dL (0.76-1.46); Glucose 97 mg/dL (74-106); Sodium 137 mmol/L (136-145); TSH 2.25 uIU/mL (0.36-3.74); Total Protein 8.6 g/dL (6.4-8.2)
== END 2022-03-27 23:59 | disposition home or self-care (01) ==
LOC: INF 03:26
PROVIDERS: Visit Provider Internal Medicine
DX: C79.10 Secondary malignant neoplasm of unspecified urinary organs (principal); E35 Disorders of endocrine glands in diseases classified elsewhere; Z45.2 Encounter for adjustment and management of vascular access device
CPT/HCPCS: 36415; 36591; 80053; 84439; 84443; 85025

== ENCOUNTER 2022-04-23 03:21 | Outpatient (RCR) | payer MEDICARE, SELFPAY ==
[2022-04-02] MEDS: Normal Saline Flush 10 ML SYR IVP (09:40)
[2022-04-02 09:50] LABS: HCT 34.9 % (36.0-46.0); Lymphocytes % 22.5; MCHC 31.5 % (32.0-36.0); MCV 86 fL (80-95); MPV 8.8 fL (8.0-11.0); Neutrophils % 64.5; Platelet Count 647 10^3/uL (130-400); RBC 4.08 10^6/uL (3.93-5.22); RDW 12.6 % (11.7-14.6); RDW-SD 39.5 fL; WBC 10.15 10^3/uL (4.4-10.8)
[2022-04-02 09:51] LABS: Abs Immature Grans 0.02 10^3/uL (0.0-0.06); Absolute Basophil Count 0.05 10^3/uL (0.0-0.2); Absolute Lymphocyte Count 2.28 10^3/uL (1.2-3.4); Absolute Monocyte Count 0.65 10^3/uL (0.1-0.8); Absolute Neutrophil Count 6.55 10^3/uL (1.2-6.7); Basophils % 0.5; Eosinophils % 5.9; Immature Grans % 0.2; Monocytes % 6.4
[2022-04-02 10:22] LABS: ALT 9 U/L (14-59); AST 10 U/L (15-37); Albumin 2.9 g/dL (3.4-5.0); Alkaline Phosphatase 78 U/L (46-116); Anion Gap 9.4 mmol/L (3-11); BUN 19 mg/dL (7-18); Bilirubin, Total 0.4 mg/dL (0.2-1.0); CO2 26.6 mmol/L (21.0-32.0); CREATININE 1.7 mg/dL (0.55-1.02); Chloride 106 mmol/L (98-107); Estimated GFR 32.06 (mL/min/1.73m2); FREE T4 1.14 ng/dL (0.76-1.46); Glucose 113 mg/dL (74-106); Potassium 3.6 mmol/L (3.5-5.1); Sodium 142 mmol/L (136-145); TSH 1.13 uIU/mL (0.36-3.74); Total Protein 8.5 g/dL (6.4-8.2)
[2022-04-23] MEDS: Normal Saline Flush 10 ML SYR IVP (09:14)
[2022-04-23 09:25] LABS: Abs Immature Grans 0.03 10^3/uL (0.0-0.06); Absolute Basophil Count 0.06 10^3/uL (0.0-0.2); Absolute Eosinophil Count 0.44 10^3/uL (0.0-0.7); Absolute Lymphocyte Count 2.28 10^3/uL (1.2-3.4); Absolute Neutrophil Count 6.03 10^3/uL (1.2-6.7); Basophils % 0.6; Eosinophils % 4.5; HCT 35.5 % (36.0-46.0); HGB 11.3 g/dL (11.2-15.7); Immature Grans % 0.3; Lymphocytes % 23.4; MCH 26.4 pg (27.0-33.0); MCHC 31.8 % (32.0-36.0); MCV 83 fL (80-95); MPV 8.7 fL (8.0-11.0); Monocytes % 9.2; Platelet Count 538 10^3/uL (130-400); RBC 4.28 10^6/uL (3.93-5.22); RDW 12.9 % (11.7-14.6); RDW-SD 38.9 fL; WBC 9.74 10^3/uL (4.4-10.8)
[2022-04-23 10:07] LABS: ALT 12 U/L (14-59); AST 14 U/L (15-37); Alkaline Phosphatase 88 U/L (46-116); Anion Gap 9.9 mmol/L (3-11); BUN 24 mg/dL (7-18); Bilirubin, Total 0.5 mg/dL (0.2-1.0); CO2 24.1 mmol/L (21.0-32.0); CREATININE 1.6 mg/dL (0.55-1.02); Calcium 8.8 mg/dL (8.5-10.1); Chloride 104 mmol/L (98-107); Estimated GFR 34.48 (mL/min/1.73m2); FREE T4 1.38 ng/dL (0.76-1.46); Glucose 100 mg/dL (74-106); Sodium 138 mmol/L (136-145); TSH 1.06 uIU/mL (0.36-3.74); Total Protein 8.9 g/dL (6.4-8.2)
== END 2022-04-27 23:59 | disposition home or self-care (01) ==
LOC: INF 03:21
PROVIDERS: Nurse Practitioner Adult Health; Visit Provider Internal Medicine
DX: C79.10 Secondary malignant neoplasm of unspecified urinary organs (principal); E03.2 Hypothyroidism due to medicaments and other exogenous substances; Z45.2 Encounter for adjustment and management of vascular access device
CPT/HCPCS: 36591; 80053; 84439; 84443; 85025

== ENCOUNTER 2022-05-14 02:53 | Outpatient (RCR) | payer MEDICARE, SELFPAY ==
[2022-05-14] MEDS: Normal Saline Flush 10 ML SYR IVP (12:47)
[2022-05-14 13:27] LABS: Abs Immature Grans 0.05 10^3/uL (0.0-0.06); Absolute Basophil Count 0.07 10^3/uL (0.0-0.2); Absolute Eosinophil Count 0.66 10^3/uL (0.0-0.7); Absolute Lymphocyte Count 2.68 10^3/uL (1.2-3.4); Basophils % 0.6; Eosinophils % 6.1; HCT 34.3 % (36.0-46.0); HGB 10.4 g/dL (11.2-15.7); Immature Grans % 0.5; Lymphocytes % 24.7; MCH 25.8 pg (27.0-33.0); MCHC 30.3 % (32.0-36.0); MCV 85 fL (80-95); MPV 9.3 fL (8.0-11.0); Monocytes % 6.4; Neutrophils % 61.7; Platelet Count 634 10^3/uL (130-400); RBC 4.03 10^6/uL (3.93-5.22); RDW 14.1 % (11.7-14.6); RDW-SD 43.5 fL; WBC 10.86 10^3/uL (4.4-10.8)
[2022-05-14 13:49] LABS: ALT 9 U/L (14-59); AST 12 U/L (15-37); Albumin 3.1 g/dL (3.4-5.0); Alkaline Phosphatase 87 U/L (46-116); Anion Gap 8.1 mmol/L (3-11); BUN 21 mg/dL (7-18); Bilirubin, Total 0.6 mg/dL (0.2-1.0); CO2 24.9 mmol/L (21.0-32.0); CREATININE 1.8 mg/dL (0.55-1.02); Calcium 8.9 mg/dL (8.5-10.1); Chloride 104 mmol/L (98-107); Estimated GFR 29.94 (mL/min/1.73m2); FREE T4 1.18 ng/dL (0.76-1.46); Glucose 99 mg/dL (74-106); Potassium 3.9 mmol/L (3.5-5.1); Sodium 137 mmol/L (136-145); TSH 0.85 uIU/mL (0.36-3.74); Total Protein 8.8 g/dL (6.4-8.2)
== END 2022-05-28 23:59 | disposition home or self-care (01) ==
LOC: INF 02:53
PROVIDERS: Visit Provider Internal Medicine
DX: C79.10 Secondary malignant neoplasm of unspecified urinary organs (principal); E03.2 Hypothyroidism due to medicaments and other exogenous substances; Z45.2 Encounter for adjustment and management of vascular access device
CPT/HCPCS: 36591; 80053; 84439; 84443; 85025

== ENCOUNTER 2022-06-10 15:24 | Outpatient (REF) | payer MEDICARE, SELFPAY ==
[2022-06-10 18:53] LABS: Bilirubin Negative (Negative); Blood Large (Negative); Clarity Cloudy (Clear); Glucose Negative (Negative); Ketones Negative (Negative); Leukocyte Esterase Large (Negative); Nitrite Positive (Negative); Specific Gravity 1.025 (1.005-1.025); Urobilinogen 0.2 EU/dL (Up TO 0.2)
[2022-06-10 19:08] LABS: Bacteria Many HPF (Negative); C & S Indicated? Yes; Casts Negative LPF (Negative); Crystals Negative HPF (Negative); Epithelial Cells Rare HPF (Negative); Mucus Negative (Negative); Other Cells Negative (Negative); RBC 20-50 HPF (0-2); WBC >50 HPF (0-5)
== END 2022-06-10 15:25 | disposition home or self-care (01) ==
LOC: NCHCN 15:24
PROVIDERS: PCP Nurse Practitioner Family; Visit Provider Nurse Practitioner Family
DX: R31.9 Hematuria, unspecified (principal); N17.9 Acute kidney failure, unspecified
CPT/HCPCS: 81003; 81015; 87086

== ENCOUNTER 2022-06-25 02:04 | Outpatient (RCR) | payer MEDICARE, SELFPAY ==
[2022-06-04] MEDS: Normal Saline Flush 10 ML SYR IVP (09:02)
[2022-06-04 09:09] LABS: Abs Immature Grans 0.04 10^3/uL (0.0-0.06); Absolute Basophil Count 0.06 10^3/uL (0.0-0.2); Absolute Eosinophil Count 1.01 10^3/uL (0.0-0.7); Absolute Lymphocyte Count 2.43 10^3/uL (1.2-3.4); Absolute Monocyte Count 0.76 10^3/uL (0.1-0.8); Absolute Neutrophil Count 8.36 10^3/uL (1.2-6.7); Basophils % 0.5; HCT 34.4 % (36.0-46.0); HGB 10.6 g/dL (11.2-15.7); Immature Grans % 0.3; Lymphocytes % 19.2; MCH 25.5 pg (27.0-33.0); MCHC 30.8 % (32.0-36.0); MCV 83 fL (80-95); MPV 8.9 fL (8.0-11.0); Platelet Count 640 10^3/uL (130-400); RBC 4.15 10^6/uL (3.93-5.22); RDW 14.1 % (11.7-14.6); RDW-SD 42.5 fL; WBC 12.66 10^3/uL (4.4-10.8)
[2022-06-04 09:34] LABS: ALT 7 U/L (14-59); AST 14 U/L (15-37); Alkaline Phosphatase 91 U/L (46-116); Anion Gap 7.6 mmol/L (3-11); BUN 18 mg/dL (7-18); Bilirubin, Total 0.7 mg/dL (0.2-1.0); CO2 25.4 mmol/L (21.0-32.0); CREATININE 1.5 mg/dL (0.55-1.02); Chloride 104 mmol/L (98-107); Estimated GFR 37.26 (mL/min/1.73m2); FREE T4 1.38 ng/dL (0.76-1.46); Glucose 103 mg/dL (74-106); Potassium 4.1 mmol/L (3.5-5.1); Sodium 137 mmol/L (136-145); TSH 0.54 uIU/mL (0.36-3.74); Total Protein 8.5 g/dL (6.4-8.2)
[2022-06-25] MEDS: Normal Saline Flush 10 ML SYR IVP (12:35)
[2022-06-25 12:54] LABS: Abs Immature Grans 0.05 10^3/uL (0.0-0.06); Absolute Basophil Count 0.08 10^3/uL (0.0-0.2); Absolute Eosinophil Count 0.95 10^3/uL (0.0-0.7); Absolute Lymphocyte Count 3.22 10^3/uL (1.2-3.4); Absolute Monocyte Count 0.74 10^3/uL (0.1-0.8); Absolute Neutrophil Count 7.68 10^3/uL (1.2-6.7); Basophils % 0.6; Eosinophils % 7.5; HGB 11.1 g/dL (11.2-15.7); Immature Grans % 0.4; Lymphocytes % 25.3; MCH 25.5 pg (27.0-33.0); MCHC 30.8 % (32.0-36.0); MCV 83 fL (80-95); MPV 8.9 fL (8.0-11.0); Monocytes % 5.8; Neutrophils % 60.4; Platelet Count 635 10^3/uL (130-400); RBC 4.36 10^6/uL (3.93-5.22); RDW 14.5 % (11.7-14.6); RDW-SD 43.6 fL; WBC 12.72 10^3/uL (4.4-10.8)
[2022-06-25 13:17] LABS: ALT 11 U/L (14-59); AST 15 U/L (15-37); Albumin 3.1 g/dL (3.4-5.0); Alkaline Phosphatase 86 U/L (46-116); Anion Gap 8.2 mmol/L (3-11); BUN 22 mg/dL (7-18); Bilirubin, Total 0.5 mg/dL (0.2-1.0); CO2 24.8 mmol/L (21.0-32.0); CREATININE 1.3 mg/dL (0.55-1.02); Calcium 8.6 mg/dL (8.5-10.1); Chloride 106 mmol/L (98-107); Estimated GFR 44.24 (mL/min/1.73m2); FREE T4 1.18 ng/dL (0.76-1.46); Glucose 91 mg/dL (74-106); Potassium 3.6 mmol/L (3.5-5.1); Sodium 139 mmol/L (136-145); TSH 0.64 uIU/mL (0.36-3.74); Total Protein 8.3 g/dL (6.4-8.2)
== END 2022-06-25 23:59 | disposition home or self-care (01) ==
LOC: INF 02:04
PROVIDERS: Nurse Practitioner Adult Health; Visit Provider Internal Medicine
DX: E03.2 Hypothyroidism due to medicaments and other exogenous substances (principal); C79.10 Secondary malignant neoplasm of unspecified urinary organs; Z45.1 Encounter for adjustment and management of infusion pump
CPT/HCPCS: 36591; 80053; 84439; 84443; 85025

== ENCOUNTER 2022-07-23 01:54 | Outpatient (RCR) | payer MEDICARE, SELFPAY ==
[2022-07-02] MEDS: Normal Saline Flush 10 ML SYR IVP (12:09)
[2022-07-02 12:17] LABS: Abs Immature Grans 0.03 10^3/uL (0.0-0.06); Absolute Basophil Count 0.06 10^3/uL (0.0-0.2); Absolute Eosinophil Count 0.74 10^3/uL (0.0-0.7); Absolute Lymphocyte Count 2.22 10^3/uL (1.2-3.4); Absolute Monocyte Count 0.65 10^3/uL (0.1-0.8); Basophils % 0.6; Eosinophils % 7.5; HCT 36.8 % (36.0-46.0); HGB 11.2 g/dL (11.2-15.7); Immature Grans % 0.3; Lymphocytes % 22.4; MCH 25.6 pg (27.0-33.0); MCHC 30.4 % (32.0-36.0); MCV 84 fL (80-95); MPV 9.4 fL (8.0-11.0); Monocytes % 6.6; Neutrophils % 62.6; Platelet Count 584 10^3/uL (130-400); RBC 4.37 10^6/uL (3.93-5.22); RDW 14.5 % (11.7-14.6); RDW-SD 44.9 fL
[2022-07-02 12:42] LABS: ALT 9 U/L (14-59); AST 9 U/L (15-37); Albumin 3.2 g/dL (3.4-5.0); Alkaline Phosphatase 86 U/L (46-116); Anion Gap 9.8 mmol/L (3-11); BUN 26 mg/dL (7-18); Bilirubin, Total 0.6 mg/dL (0.2-1.0); CO2 25.2 mmol/L (21.0-32.0); CREATININE 1.5 mg/dL (0.55-1.02); Calcium 8.8 mg/dL (8.5-10.1); Chloride 106 mmol/L (98-107); Estimated GFR 37.26 (mL/min/1.73m2); FREE T4 1.07 ng/dL (0.76-1.46); Glucose 95 mg/dL (74-106); Sodium 141 mmol/L (136-145); Total Protein 8.7 g/dL (6.4-8.2)
[2022-07-23] MEDS: Normal Saline Flush 10 ML SYR IVP (10:03)
[2022-07-23 10:25] LABS: Abs Immature Grans 0.03 10^3/uL (0.0-0.06); Absolute Basophil Count 0.07 10^3/uL (0.0-0.2); Absolute Eosinophil Count 0.65 10^3/uL (0.0-0.7); Absolute Lymphocyte Count 2.85 10^3/uL (1.2-3.4); Absolute Monocyte Count 0.69 10^3/uL (0.1-0.8); Absolute Neutrophil Count 7.15 10^3/uL (1.2-6.7); Basophils % 0.6; Eosinophils % 5.7; HGB 11.4 g/dL (11.2-15.7); Immature Grans % 0.3; Lymphocytes % 24.9; MCH 25.3 pg (27.0-33.0); MCHC 30.8 % (32.0-36.0); MCV 82 fL (80-95); MPV 9.3 fL (8.0-11.0); Neutrophils % 62.5; Platelet Count 593 10^3/uL (130-400); RDW 13.8 % (11.7-14.6); RDW-SD 40.9 fL; WBC 11.44 10^3/uL (4.4-10.8)
[2022-07-23 11:05] LABS: ALT 13 U/L (14-59); AST 12 U/L (15-37); Albumin 3.2 g/dL (3.4-5.0); Alkaline Phosphatase 93 U/L (46-116); Anion Gap 10.5 mmol/L (3-11); BUN 22 mg/dL (7-18); Bilirubin, Total 0.5 mg/dL (0.2-1.0); CO2 24.5 mmol/L (21.0-32.0); CREATININE 1.6 mg/dL (0.55-1.02); Calcium 8.9 mg/dL (8.5-10.1); Chloride 106 mmol/L (98-107); Estimated GFR 34.27 (mL/min/1.73m2); FREE T4 0.99 ng/dL (0.76-1.46); Glucose 114 mg/dL (74-106); Potassium 3.8 mmol/L (3.5-5.1); Sodium 141 mmol/L (136-145); TSH 1.08 uIU/mL (0.36-3.74); Total Protein 8.6 g/dL (6.4-8.2)
== END 2022-07-26 23:59 | disposition home or self-care (01) ==
LOC: INF 01:54
PROVIDERS: Nurse Practitioner Adult Health; PCP Nurse Practitioner Family; Visit Provider Internal Medicine
DX: C79.10 Secondary malignant neoplasm of unspecified urinary organs (principal); E03.2 Hypothyroidism due to medicaments and other exogenous substances; Z45.2 Encounter for adjustment and management of vascular access device
CPT/HCPCS: 36415; 36591; 80053; 96523; 84439; 84443; 85025

== ENCOUNTER 2022-08-13 02:11 | Outpatient (RCR) | payer MEDICARE, SELFPAY ==
[2022-08-13] MEDS: Normal Saline Flush 10 ML SYR IVP (12:35)
[2022-08-13 12:52] LABS: Abs Immature Grans 0.04 10^3/uL (0.0-0.06); Absolute Eosinophil Count 0.88 10^3/uL (0.0-0.7); Absolute Monocyte Count 0.76 10^3/uL (0.1-0.8); Basophils % 0.5; HCT 35.9 % (36.0-46.0); HGB 11.2 g/dL (11.2-15.7); Immature Grans % 0.4; Lymphocytes % 24.5; MCH 25.7 pg (27.0-33.0); MCHC 31.2 % (32.0-36.0); MCV 83 fL (80-95); MPV 9.3 fL (8.0-11.0); Monocytes % 6.9; Neutrophils % 59.7; Platelet Count 581 10^3/uL (130-400); RBC 4.35 10^6/uL (3.93-5.22); RDW 14.2 % (11.7-14.6); RDW-SD 42.5 fL; WBC 11.01 10^3/uL (4.4-10.8)
[2022-08-13 12:53] LABS: Absolute Basophil Count 0.06 10^3/uL (0.0-0.2); Absolute Neutrophil Count 6.57 10^3/uL (1.2-6.7)
[2022-08-13 13:09] LABS: ALT 13 U/L (14-59); AST 11 U/L (15-37); Albumin 3.2 g/dL (3.4-5.0); Alkaline Phosphatase 91 U/L (46-116); BUN 24 mg/dL (7-18); Bilirubin, Total 0.3 mg/dL (0.2-1.0); CREATININE 1.6 mg/dL (0.55-1.02); Calcium 8.8 mg/dL (8.5-10.1); Chloride 104 mmol/L (98-107); Estimated GFR 34.27 (mL/min/1.73m2); Glucose 90 mg/dL (74-106); Potassium 4.4 mmol/L (3.5-5.1); Sodium 136 mmol/L (136-145); Total Protein 8.5 g/dL (6.4-8.2)
[2022-08-13 13:54] LABS: FREE T4 0.98 ng/dL (0.76-1.46); TSH 3.96 uIU/mL (0.36-3.74)
== END 2022-08-25 23:59 | disposition home or self-care (01) ==
LOC: INF 02:11
PROVIDERS: PCP Nurse Practitioner Family; Visit Provider Internal Medicine
DX: C79.10 Secondary malignant neoplasm of unspecified urinary organs (principal); E03.2 Hypothyroidism due to medicaments and other exogenous substances; Z45.2 Encounter for adjustment and management of vascular access device
CPT/HCPCS: 36591; 80053; 84439; 84443; 85025

== ENCOUNTER 2022-08-15 12:36 | Outpatient (REF) | payer MEDICARE, SELFPAY ==
[2022-08-15 15:30] LABS: Bilirubin Negative (Negative); Blood Moderate (Negative); Clarity Cloudy (Clear); Glucose Negative (Negative); Ketones Negative (Negative); Leukocyte Esterase Moderate (Negative); Nitrite Positive (Negative); Specific Gravity 1.025 (1.005-1.025); Urobilinogen 0.2 mg/dL (Up to 0.2); pH 5.5 (5-8)
[2022-08-15 15:46] LABS: Bacteria Many HPF (Negative); C & S Indicated? Yes; Casts Negative LPF (Negative); Crystals Negative HPF (Negative); Epithelial Cells Few HPF (Negative); Mucus Trace (Negative); WBC 20-50 HPF (0-5)
== END 2022-08-15 12:37 | disposition home or self-care (01) ==
LOC: NCHCN 12:36
PROVIDERS: PCP Nurse Practitioner Family; Visit Provider Nurse Practitioner Family
DX: R10.31 Right lower quadrant pain (principal)
CPT/HCPCS: 81003; 81015; 87086

== ENCOUNTER 2022-09-03 01:59 | Outpatient (RCR) | payer MEDICARE, SELFPAY ==
[2022-09-03] MEDS: Normal Saline Flush 10 ML SYR IVP (12:43)
[2022-09-03 12:53] LABS: Abs Immature Grans 0.03 10^3/uL (0.0-0.06); Absolute Basophil Count 0.07 10^3/uL (0.0-0.2); Absolute Eosinophil Count 0.89 10^3/uL (0.0-0.7); Absolute Monocyte Count 0.65 10^3/uL (0.1-0.8); Basophils % 0.6; Eosinophils % 8.2; HCT 37.5 % (36.0-46.0); HGB 11.7 g/dL (11.2-15.7); Immature Grans % 0.3; Lymphocytes % 23.1; MCH 25.6 pg (27.0-33.0); MCHC 31.2 % (32.0-36.0); MCV 82 fL (80-95); MPV 9.5 fL (8.0-11.0); Neutrophils % 61.8; Platelet Count 602 10^3/uL (130-400); RBC 4.57 10^6/uL (3.93-5.22); RDW 14.7 % (11.7-14.6); RDW-SD 43.9 fL; WBC 10.84 10^3/uL (4.4-10.8)
[2022-09-03 13:16] LABS: ALT 11 U/L (14-59); AST 14 U/L (15-37); Albumin 3.1 g/dL (3.4-5.0); Alkaline Phosphatase 96 U/L (46-116); Anion Gap 6.6 mmol/L (3-11); BUN 25 mg/dL (7-18); Bilirubin, Total 0.6 mg/dL (0.2-1.0); CO2 26.4 mmol/L (21.0-32.0); CREATININE 1.5 mg/dL (0.55-1.02); Calcium 8.7 mg/dL (8.5-10.1); Chloride 109 mmol/L (98-107); Estimated GFR 37.03 (mL/min/1.73m2); Glucose 109 mg/dL (74-106); Potassium 3.8 mmol/L (3.5-5.1); Sodium 142 mmol/L (136-145); TSH 1.14 uIU/mL (0.36-3.74); Total Protein 8.4 g/dL (6.4-8.2)
== END 2022-09-25 23:59 | disposition home or self-care (01) ==
LOC: INF 01:59
PROVIDERS: PCP Nurse Practitioner Family; Visit Provider Internal Medicine
DX: E03.2 Hypothyroidism due to medicaments and other exogenous substances (principal); C79.10 Secondary malignant neoplasm of unspecified urinary organs; Z45.2 Encounter for adjustment and management of vascular access device
CPT/HCPCS: 36591; 80053; 84439; 84443; 85025

== ENCOUNTER 2022-10-08 01:52 | Outpatient (RCR) | payer MEDICARE, SELFPAY ==
[2022-10-08] MEDS: Normal Saline Flush 10 ML SYR IVP (12:07)
[2022-10-08 12:29] LABS: Abs Immature Grans 0.04 10^3/uL (0.0-0.06); Absolute Eosinophil Count 1.06 10^3/uL (0.0-0.7); Absolute Monocyte Count 0.89 10^3/uL (0.1-0.8); Basophils % 0.5; Eosinophils % 8.1; HCT 36.2 % (36.0-46.0); HGB 11.3 g/dL (11.2-15.7); Immature Grans % 0.3; Lymphocytes % 18.5; MCH 25.7 pg (27.0-33.0); MCHC 31.2 % (32.0-36.0); MCV 82 fL (80-95); MPV 9.2 fL (8.0-11.0); Monocytes % 6.8; Neutrophils % 65.8; Platelet Count 614 10^3/uL (130-400); RDW 14.7 % (11.7-14.6); RDW-SD 44.4 fL; WBC 13.06 10^3/uL (4.4-10.8)
[2022-10-08 12:30] LABS: Absolute Basophil Count 0.07 10^3/uL (0.0-0.2); Absolute Lymphocyte Count 2.42 10^3/uL (1.2-3.4); Absolute Neutrophil Count 8.59 10^3/uL (1.2-6.7)
[2022-10-08 12:53] LABS: ALT 11 U/L (14-59); AST 11 U/L (15-37); Albumin 3.2 g/dL (3.4-5.0); Alkaline Phosphatase 91 U/L (46-116); Anion Gap 4.6 mmol/L (3-11); BUN 19 mg/dL (7-18); Bilirubin, Total 0.6 mg/dL (0.2-1.0); CO2 26.4 mmol/L (21.0-32.0); CREATININE 1.6 mg/dL (0.55-1.02); Calcium 8.4 mg/dL (8.5-10.1); Chloride 105 mmol/L (98-107); Estimated GFR 34.27 (mL/min/1.73m2); Glucose 106 mg/dL (74-106); Potassium 3.9 mmol/L (3.5-5.1); Sodium 136 mmol/L (136-145); TSH 1.93 uIU/mL (0.36-3.74); Total Protein 8.7 g/dL (6.4-8.2)
== END 2022-10-25 23:59 | disposition home or self-care (01) ==
LOC: INF 01:52
PROVIDERS: Nurse Practitioner Adult Health; PCP Nurse Practitioner Family; Visit Provider Internal Medicine
DX: E03.2 Hypothyroidism due to medicaments and other exogenous substances (principal); C79.10 Secondary malignant neoplasm of unspecified urinary organs; Z45.2 Encounter for adjustment and management of vascular access device
CPT/HCPCS: 36591; 80053; 84439; 84443; 85025

== ENCOUNTER 2022-11-05 09:52 | Outpatient (RCR) | payer MEDICARE, SELFPAY ==
[2022-11-05] MEDS: Normal Saline Flush 10 ML SYR IVP (10:01)
[2022-11-05 10:19] LABS: Abs Immature Grans 0.04 10^3/uL (0.0-0.06); Absolute Basophil Count 0.07 10^3/uL (0.0-0.2); Absolute Eosinophil Count 0.86 10^3/uL (0.0-0.7); Absolute Monocyte Count 0.73 10^3/uL (0.1-0.8); Absolute Neutrophil Count 6.43 10^3/uL (1.2-6.7); Basophils % 0.7; Eosinophils % 8.3; HCT 36.6 % (36.0-46.0); HGB 11.4 g/dL (11.2-15.7); Immature Grans % 0.4; Lymphocytes % 21.3; MCH 26.2 pg (27.0-33.0); MCHC 31.1 % (32.0-36.0); MCV 84 fL (80-95); MPV 9.3 fL (8.0-11.0); Monocytes % 7.1; Neutrophils % 62.2; Platelet Count 565 10^3/uL (130-400); RBC 4.35 10^6/uL (3.93-5.22); RDW 14.9 % (11.7-14.6); RDW-SD 45.9 fL; WBC 10.33 10^3/uL (4.4-10.8)
[2022-11-05 10:56] LABS: ALT 11 U/L (14-59); AST 12 U/L (15-37); Albumin 3.1 g/dL (3.4-5.0); Alkaline Phosphatase 88 U/L (46-116); Anion Gap 8.8 mmol/L (3-11); BUN 17 mg/dL (7-18); Bilirubin, Total 0.5 mg/dL (0.2-1.0); CO2 25.2 mmol/L (21.0-32.0); CREATININE 1.6 mg/dL (0.55-1.02); Calcium 8.6 mg/dL (8.5-10.1); Chloride 106 mmol/L (98-107); Estimated GFR 34.27 (mL/min/1.73m2); FREE T4 0.88 ng/dL (0.76-1.46); Glucose 108 mg/dL (74-106); Potassium 3.9 mmol/L (3.5-5.1); Sodium 140 mmol/L (136-145); TSH 2.44 uIU/mL (0.36-3.74); Total Protein 8.3 g/dL (6.4-8.2)
== END 2022-11-25 23:59 | disposition home or self-care (01) ==
LOC: INF 09:52
PROVIDERS: Nurse Practitioner Adult Health; PCP Nurse Practitioner Family; Visit Provider Internal Medicine
DX: E03.2 Hypothyroidism due to medicaments and other exogenous substances (principal); C79.10 Secondary malignant neoplasm of unspecified urinary organs; Z45.2 Encounter for adjustment and management of vascular access device
CPT/HCPCS: 36591; 80053; 84439; 84443; 85025

== ENCOUNTER 2022-12-17 04:19 | Outpatient (RCR) | payer MEDICARE, SELFPAY ==
[2022-11-26] MEDS: Normal Saline Flush 10 ML SYR IVP (09:09)
[2022-11-26 09:13] LABS: Abs Immature Grans 0.03 10^3/uL (0.0-0.06); Absolute Basophil Count 0.05 10^3/uL (0.0-0.2); Absolute Lymphocyte Count 2.12 10^3/uL (1.2-3.4); Absolute Monocyte Count 0.65 10^3/uL (0.1-0.8); Absolute Neutrophil Count 7.59 10^3/uL (1.2-6.7); Basophils % 0.4; Eosinophils % 7.9; HGB 11.5 g/dL (11.2-15.7); Immature Grans % 0.3; Lymphocytes % 18.7; MCH 26.1 pg (27.0-33.0); MCHC 31.1 % (32.0-36.0); MCV 84 fL (80-95); MPV 9.1 fL (8.0-11.0); Monocytes % 5.7; Platelet Count 519 10^3/uL (130-400); RBC 4.41 10^6/uL (3.93-5.22); RDW 14.1 % (11.7-14.6); RDW-SD 43.3 fL; WBC 11.33 10^3/uL (4.4-10.8)
[2022-11-26 09:41] LABS: ALT 10 U/L (14-59); AST 12 U/L (15-37); Albumin 3.2 g/dL (3.4-5.0); Alkaline Phosphatase 87 U/L (46-116); BUN 21 mg/dL (7-18); Bilirubin, Total 0.7 mg/dL (0.2-1.0); CREATININE 1.7 mg/dL (0.55-1.02); Calcium 8.7 mg/dL (8.5-10.1); Chloride 104 mmol/L (98-107); Estimated GFR 31.86 (mL/min/1.73m2); FREE T4 1.07 ng/dL (0.76-1.46); Glucose 92 mg/dL (74-106); Potassium 4.2 mmol/L (3.5-5.1); Sodium 138 mmol/L (136-145); TSH 2.59 uIU/mL (0.36-3.74); Total Protein 8.4 g/dL (6.4-8.2)
[2022-12-17] MEDS: Normal Saline Flush 10 ML SYR IVP (12:39)
[2022-12-17 13:23] LABS: Abs Immature Grans 0.04 10^3/uL (0.0-0.06); Absolute Lymphocyte Count 2.47 10^3/uL (1.2-3.4); Absolute Monocyte Count 0.98 10^3/uL (0.1-0.8); Basophils % 0.5; Eosinophils % 7.2; HCT 35.8 % (36.0-46.0); HGB 11.1 g/dL (11.2-15.7); Immature Grans % 0.4; Lymphocytes % 22.3; MCH 25.9 pg (27.0-33.0); MCV 83 fL (80-95); MPV 9.3 fL (8.0-11.0); Monocytes % 8.8; Neutrophils % 60.8; Platelet Count 608 10^3/uL (130-400); RBC 4.29 10^6/uL (3.93-5.22); RDW 13.6 % (11.7-14.6); RDW-SD 41.6 fL; WBC 11.09 10^3/uL (4.4-10.8)
[2022-12-17 13:31] LABS: Absolute Basophil Count 0.06 10^3/uL (0.0-0.2); Absolute Neutrophil Count 6.74 10^3/uL (1.2-6.7)
[2022-12-17 13:51] LABS: ALT 7 U/L (14-59); AST 9 U/L (15-37); Alkaline Phosphatase 77 U/L (46-116); Anion Gap 8.9 mmol/L (3-11); BUN 20 mg/dL (7-18); Bilirubin, Total 0.5 mg/dL (0.2-1.0); CO2 26.1 mmol/L (21.0-32.0); CREATININE 1.7 mg/dL (0.55-1.02); Calcium 8.9 mg/dL (8.5-10.1); Chloride 105 mmol/L (98-107); Estimated GFR 31.86 (mL/min/1.73m2); FREE T4 0.97 ng/dL (0.76-1.46); Glucose 109 mg/dL (74-106); Potassium 3.9 mmol/L (3.5-5.1); Sodium 140 mmol/L (136-145); TSH 1.97 uIU/mL (0.36-3.74); Total Protein 8.4 g/dL (6.4-8.2)
== END 2022-12-26 23:59 | disposition home or self-care (01) ==
LOC: INF 04:19
PROVIDERS: Nurse Practitioner Adult Health; PCP Nurse Practitioner Family; Visit Provider Internal Medicine
DX: C79.10 Secondary malignant neoplasm of unspecified urinary organs (principal); E03.2 Hypothyroidism due to medicaments and other exogenous substances; Z45.2 Encounter for adjustment and management of vascular access device
CPT/HCPCS: 36591; 80053; 84439; 84443; 85025

== ENCOUNTER 2023-01-07 02:34 | Outpatient (RCR) | payer MEDICARE, SELFPAY ==
[2023-01-07] MEDS: Normal Saline Flush 10 ML SYR IVP (08:06)
[2023-01-07 08:20] LABS: Abs Immature Grans 0.05 10^3/uL (0.0-0.06); Absolute Basophil Count 0.04 10^3/uL (0.0-0.2); Absolute Eosinophil Count 0.89 10^3/uL (0.0-0.7); Absolute Lymphocyte Count 2.08 10^3/uL (1.2-3.4); Absolute Monocyte Count 0.91 10^3/uL (0.1-0.8); Absolute Neutrophil Count 8.36 10^3/uL (1.2-6.7); Basophils % 0.3; Eosinophils % 7.2; HCT 34.3 % (36.0-46.0); HGB 10.9 g/dL (11.2-15.7); Immature Grans % 0.4; Lymphocytes % 16.9; MCH 26.2 pg (27.0-33.0); MCHC 31.8 % (32.0-36.0); MCV 83 fL (80-95); Monocytes % 7.4; Neutrophils % 67.8; Platelet Count 610 10^3/uL (130-400); RBC 4.16 10^6/uL (3.93-5.22); RDW 13.5 % (11.7-14.6); RDW-SD 40.7 fL; WBC 12.33 10^3/uL (4.4-10.8)
[2023-01-07 08:44] LABS: ALT 6 U/L (14-59); AST 11 U/L (15-37); Albumin 2.8 g/dL (3.4-5.0); Alkaline Phosphatase 79 U/L (46-116); Anion Gap 9.9 mmol/L (3-11); BUN 19 mg/dL (7-18); Bilirubin, Total 0.4 mg/dL (0.2-1.0); CO2 25.1 mmol/L (21.0-32.0); CREATININE 1.5 mg/dL (0.55-1.02); Chloride 103 mmol/L (98-107); Estimated GFR 37.03 (mL/min/1.73m2); Glucose 105 mg/dL (74-106); Potassium 4.2 mmol/L (3.5-5.1); Sodium 138 mmol/L (136-145); TSH 1.91 uIU/mL (0.36-3.74); Total Protein 8.7 g/dL (6.4-8.2)
== END 2023-01-25 23:59 | disposition home or self-care (01) ==
LOC: INF 02:34
PROVIDERS: PCP Nurse Practitioner Family; Visit Provider Internal Medicine
DX: C79.10 Secondary malignant neoplasm of unspecified urinary organs (principal); E03.2 Hypothyroidism due to medicaments and other exogenous substances; Z45.2 Encounter for adjustment and management of vascular access device
CPT/HCPCS: 36591; 80053; 84439; 84443; 85025

== ENCOUNTER 2023-02-18 12:00 | Outpatient (RCR) | payer MEDICARE, SELFPAY ==
[2023-01-28] MEDS: Normal Saline Flush 10 ML SYR IVP (08:32)
[2023-01-28 08:49] LABS: Abs Immature Grans 0.05 10^3/uL (0.0-0.06); Absolute Basophil Count 0.05 10^3/uL (0.0-0.2); Absolute Lymphocyte Count 2.14 10^3/uL (1.2-3.4); Absolute Monocyte Count 0.94 10^3/uL (0.1-0.8); Basophils % 0.4; Eosinophils % 6.5; HCT 35.2 % (36.0-46.0); HGB 10.9 g/dL (11.2-15.7); Immature Grans % 0.4; Lymphocytes % 15.9; MCH 25.1 pg (27.0-33.0); MCV 81 fL (80-95); MPV 8.5 fL (8.0-11.0); Neutrophils % 69.8; RBC 4.34 10^6/uL (3.93-5.22); RDW 13.6 % (11.7-14.6); WBC 13.48 10^3/uL (4.4-10.8)
[2023-01-28 09:02] LABS: Absolute Eosinophil Count 0.88 10^3/uL (0.0-0.7); Absolute Neutrophil Count 9.41 10^3/uL (1.2-6.7)
[2023-01-28 09:18] LABS: ALT 7 U/L (14-59); AST 13 U/L (15-37); Albumin 2.8 g/dL (3.4-5.0); Alkaline Phosphatase 77 U/L (46-116); Anion Gap 8.3 mmol/L (3-11); BUN 18 mg/dL (7-18); Bilirubin, Total 0.5 mg/dL (0.2-1.0); CO2 24.7 mmol/L (21.0-32.0); CREATININE 1.6 mg/dL (0.55-1.02); Calcium 9.3 mg/dL (8.5-10.1); Chloride 103 mmol/L (98-107); Estimated GFR 34.27 (mL/min/1.73m2); FREE T4 1.27 ng/dL (0.76-1.46); Glucose 107 mg/dL (74-106); Platelet Count 723 10^3/uL (130-400); Potassium 4.1 mmol/L (3.5-5.1); Sodium 136 mmol/L (136-145); TSH 2.02 uIU/mL (0.36-3.74); Total Protein 9.1 g/dL (6.4-8.2)
[2023-01-28 09:19] LABS: Diff Comment Diff Reviewed; RBC Morphology Normal
[2023-02-18] MEDS: Normal Saline Flush 10 ML SYR IVP (12:16)
[2023-02-18 12:21] LABS: Abs Immature Grans 0.06 10^3/uL (0.0-0.06); Absolute Basophil Count 0.06 10^3/uL (0.0-0.2); Absolute Eosinophil Count 1.02 10^3/uL (0.0-0.7); Absolute Lymphocyte Count 2.23 10^3/uL (1.2-3.4); Absolute Neutrophil Count 7.67 10^3/uL (1.2-6.7); Basophils % 0.5; Eosinophils % 8.6; HCT 35.5 % (36.0-46.0); HGB 10.8 g/dL (11.2-15.7); Immature Grans % 0.5; Lymphocytes % 18.8; MCH 24.9 pg (27.0-33.0); MCHC 30.4 % (32.0-36.0); MCV 82 fL (80-95); MPV 8.7 fL (8.0-11.0); Monocytes % 6.8; Neutrophils % 64.8; RBC 4.34 10^6/uL (3.93-5.22); RDW 14.4 % (11.7-14.6); RDW-SD 42.1 fL; WBC 11.84 10^3/uL (4.4-10.8)
[2023-02-18 12:25] LABS: Absolute Monocyte Count 0.81 10^3/uL (0.1-0.8)
[2023-02-18 12:45] LABS: ALT 7 U/L (14-59); AST 10 U/L (15-37); Albumin 2.9 g/dL (3.4-5.0); Alkaline Phosphatase 72 U/L (46-116); Anion Gap 9.5 mmol/L (3-11); BUN 16 mg/dL (7-18); Bilirubin, Total 0.5 mg/dL (0.2-1.0); CO2 23.5 mmol/L (21.0-32.0); CREATININE 1.5 mg/dL (0.55-1.02); Calcium 9.1 mg/dL (8.5-10.1); Chloride 105 mmol/L (98-107); Estimated GFR 37.03 (mL/min/1.73m2); FREE T4 1.29 ng/dL (0.76-1.46); Glucose 98 mg/dL (74-106); Potassium 3.9 mmol/L (3.5-5.1); Sodium 138 mmol/L (136-145); TSH 1.28 uIU/mL (0.36-3.74); Total Protein 9.2 g/dL (6.4-8.2)
[2023-02-18 12:48] LABS: Diff Comment Diff Reviewed; Platelet Count 687 10^3/uL (130-400); RBC Morphology Normal
== END 2023-02-25 23:59 | disposition home or self-care (01) ==
LOC: INF 12:00
PROVIDERS: Nurse Practitioner Adult Health; PCP Nurse Practitioner Family; Visit Provider Internal Medicine
DX: C79.10 Secondary malignant neoplasm of unspecified urinary organs (principal); E03.2 Hypothyroidism due to medicaments and other exogenous substances; Z45.2 Encounter for adjustment and management of vascular access device
CPT/HCPCS: 36591; 80053; 84439; 84443; 85025

== ENCOUNTER 2023-03-11 01:00 | Outpatient (RCR) | payer MEDICARE, SELFPAY ==
[2023-03-11] MEDS: Normal Saline Flush 10 ML SYR IVP (13:05)
[2023-03-11 13:18] LABS: Abs Immature Grans 0.03 10^3/uL (0.0-0.06); Absolute Basophil Count 0.05 10^3/uL (0.0-0.2); Absolute Eosinophil Count 0.97 10^3/uL (0.0-0.7); Absolute Monocyte Count 0.89 10^3/uL (0.1-0.8); Absolute Neutrophil Count 6.28 10^3/uL (1.2-6.7); Basophils % 0.5; Eosinophils % 8.9; HCT 36.4 % (36.0-46.0); HGB 11.1 g/dL (11.2-15.7); Immature Grans % 0.3; Lymphocytes % 24.4; MCH 24.6 pg (27.0-33.0); MCHC 30.5 % (32.0-36.0); MCV 81 fL (80-95); MPV 9.4 fL (8.0-11.0); Monocytes % 8.2; Neutrophils % 57.7; RBC 4.51 10^6/uL (3.93-5.22); RDW 14.9 % (11.7-14.6); RDW-SD 43.8 fL; WBC 10.88 10^3/uL (4.4-10.8)
[2023-03-11 13:20] LABS: Absolute Lymphocyte Count 2.65 10^3/uL (1.2-3.4); Platelet Count 659 10^3/uL (130-400)
[2023-03-11 13:48] LABS: Alkaline Phosphatase 80 U/L (46-116); Bilirubin, Total 0.6 mg/dL (0.2-1.0); Chloride 106 mmol/L (98-107); Sodium 139 mmol/L (136-145)
[2023-03-11 14:34] LABS: ALT 9 U/L (14-59); AST 11 U/L (15-37); Albumin 3.2 g/dL (3.4-5.0); BUN 25 mg/dL (7-18); CREATININE 1.6 mg/dL (0.55-1.02); Calcium 9.3 mg/dL (8.5-10.1); Estimated GFR 34.27 (mL/min/1.73m2); FREE T4 1.15 ng/dL (0.76-1.46); Glucose 88 mg/dL (74-106); Potassium 3.9 mmol/L (3.5-5.1); Total Protein 9.3 g/dL (6.4-8.2)
== END 2023-03-27 23:59 | disposition home or self-care (01) ==
LOC: INF 01:00
PROVIDERS: PCP Nurse Practitioner Family; Visit Provider Internal Medicine
DX: E03.2 Hypothyroidism due to medicaments and other exogenous substances (principal); C79.10 Secondary malignant neoplasm of unspecified urinary organs; Z45.2 Encounter for adjustment and management of vascular access device
CPT/HCPCS: 36591; 80053; 84439; 85025

== ENCOUNTER 2023-04-22 01:49 | Outpatient (RCR) | payer MEDICARE, SELFPAY ==
[2023-04-01] MEDS: Normal Saline Flush 10 ML SYR IVP (08:52)
[2023-04-01 09:05] LABS: Abs Immature Grans 0.06 10^3/uL (0.0-0.06); Absolute Basophil Count 0.06 10^3/uL (0.0-0.2); Absolute Eosinophil Count 1.29 10^3/uL (0.0-0.7); Absolute Lymphocyte Count 2.22 10^3/uL (1.2-3.4); Absolute Monocyte Count 0.75 10^3/uL (0.1-0.8); Basophils % 0.5; Immature Grans % 0.5; Lymphocytes % 17.3; MCH 24.9 pg (27.0-33.0); MCHC 30.6 % (32.0-36.0); MCV 82 fL (80-95); MPV 9.4 fL (8.0-11.0); Monocytes % 5.8; Neutrophils % 65.9; Platelet Count 575 10^3/uL (130-400); RBC 4.41 10^6/uL (3.93-5.22); RDW 14.9 % (11.7-14.6); RDW-SD 44.5 fL; WBC 12.86 10^3/uL (4.4-10.8)
[2023-04-01 09:13] LABS: Absolute Neutrophil Count 8.47 10^3/uL (1.2-6.7)
[2023-04-01 09:35] LABS: ALT 8 U/L (14-59); AST 12 U/L (15-37); Albumin 2.9 g/dL (3.4-5.0); Alkaline Phosphatase 74 U/L (46-116); Anion Gap 9.3 mmol/L (3-11); BUN 15 mg/dL (7-18); Bilirubin, Total 0.6 mg/dL (0.2-1.0); CO2 23.7 mmol/L (21.0-32.0); CREATININE 1.7 mg/dL (0.55-1.02); Calcium 8.7 mg/dL (8.5-10.1); Chloride 106 mmol/L (98-107); Estimated GFR 31.86 (mL/min/1.73m2); FREE T4 0.97 ng/dL (0.76-1.46); Glucose 99 mg/dL (74-106); Potassium 3.8 mmol/L (3.5-5.1); Sodium 139 mmol/L (136-145); TSH 2.14 uIU/mL (0.36-3.74); Total Protein 8.4 g/dL (6.4-8.2)
[2023-04-22] MEDS: Normal Saline Flush 10 ML SYR IVP (10:27)
[2023-04-22 11:29] LABS: Abs Immature Grans 0.04 10^3/uL (0.0-0.06); Absolute Basophil Count 0.06 10^3/uL (0.0-0.2); Absolute Eosinophil Count 0.91 10^3/uL (0.0-0.7); Absolute Lymphocyte Count 2.37 10^3/uL (1.2-3.4); Absolute Monocyte Count 0.75 10^3/uL (0.1-0.8); Basophils % 0.5; Eosinophils % 7.9; HGB 11.1 g/dL (11.2-15.7); Immature Grans % 0.3; Lymphocytes % 20.6; MCHC 30.8 % (32.0-36.0); MCV 81 fL (80-95); MPV 9.5 fL (8.0-11.0); Monocytes % 6.5; Neutrophils % 64.2; Platelet Count 620 10^3/uL (130-400); RBC 4.44 10^6/uL (3.93-5.22); RDW 14.8 % (11.7-14.6); RDW-SD 44.3 fL; WBC 11.51 10^3/uL (4.4-10.8)
[2023-04-22 11:31] LABS: Absolute Neutrophil Count 7.39 10^3/uL (1.2-6.7)
[2023-04-22 11:49] LABS: ALT 10 U/L (14-59); AST 9 U/L (15-37); Alkaline Phosphatase 70 U/L (46-116); Anion Gap 10.4 mmol/L (3-11); BUN 19 mg/dL (7-18); Bilirubin, Total 0.6 mg/dL (0.2-1.0); CO2 24.6 mmol/L (21.0-32.0); CREATININE 1.8 mg/dL (0.55-1.02); Calcium 8.7 mg/dL (8.5-10.1); Chloride 106 mmol/L (98-107); Estimated GFR 29.75 (mL/min/1.73m2); FREE T4 0.87 ng/dL (0.76-1.46); Glucose 97 mg/dL (74-106); Potassium 3.7 mmol/L (3.5-5.1); Sodium 141 mmol/L (136-145); Total Protein 8.7 g/dL (6.4-8.2)
== END 2023-04-27 23:59 | disposition home or self-care (01) ==
LOC: INF 01:49
PROVIDERS: PCP Nurse Practitioner Family; Visit Provider Internal Medicine
DX: E03.2 Hypothyroidism due to medicaments and other exogenous substances (principal); C79.10 Secondary malignant neoplasm of unspecified urinary organs; Z45.2 Encounter for adjustment and management of vascular access device
CPT/HCPCS: 36591; 80053; 84439; 84443; 85025

== ENCOUNTER 2023-05-13 03:35 | Outpatient (RCR) | payer MEDICARE, SELFPAY ==
[2023-05-13] MEDS: Normal Saline Flush 10 ML SYR IVP (13:42)
[2023-05-13 13:59] LABS: Abs Immature Grans 0.03 10^3/uL (0.0-0.06); Absolute Eosinophil Count 0.81 10^3/uL (0.0-0.7); Absolute Lymphocyte Count 2.73 10^3/uL (1.2-3.4); Absolute Monocyte Count 0.83 10^3/uL (0.1-0.8); Basophils % 0.4; Eosinophils % 7.1; HCT 36.2 % (36.0-46.0); HGB 11.2 g/dL (11.2-15.7); Immature Grans % 0.3; Lymphocytes % 24.1; MCH 24.9 pg (27.0-33.0); MCHC 30.9 % (32.0-36.0); MCV 80 fL (80-95); MPV 9.2 fL (8.0-11.0); Monocytes % 7.3; Neutrophils % 60.8; RDW 14.6 % (11.7-14.6); RDW-SD 42.5 fL; WBC 11.34 10^3/uL (4.4-10.8)
[2023-05-13 14:03] LABS: Absolute Basophil Count 0.05 10^3/uL (0.0-0.2); Absolute Neutrophil Count 6.89 10^3/uL (1.2-6.7)
[2023-05-13 14:09] LABS: Diff Comment Diff Reviewed; Platelet Count 657 10^3/uL (130-400); RBC Morphology Normal
[2023-05-13 14:21] LABS: ALT 7 U/L (14-59); AST 10 U/L (15-37); Albumin 3.1 g/dL (3.4-5.0); Alkaline Phosphatase 69 U/L (46-116); Anion Gap 8.6 mmol/L (3-11); BUN 20 mg/dL (7-18); Bilirubin, Total 0.5 mg/dL (0.2-1.0); CO2 25.4 mmol/L (21.0-32.0); CREATININE 1.6 mg/dL (0.55-1.02); Calcium 8.9 mg/dL (8.5-10.1); Chloride 106 mmol/L (98-107); Estimated GFR 34.27 (mL/min/1.73m2); FREE T4 1.02 ng/dL (0.76-1.46); Glucose 99 mg/dL (74-106); Potassium 4.1 mmol/L (3.5-5.1); Sodium 140 mmol/L (136-145); TSH 2.84 uIU/mL (0.36-3.74); Total Protein 8.9 g/dL (6.4-8.2)
== END 2023-05-28 23:59 | disposition home or self-care (01) ==
LOC: INF 03:35
PROVIDERS: PCP Nurse Practitioner Family; Visit Provider Internal Medicine
DX: E03.2 Hypothyroidism due to medicaments and other exogenous substances (principal); C79.10 Secondary malignant neoplasm of unspecified urinary organs
CPT/HCPCS: 36591; 80053; 84439; 84443; 85025

== ENCOUNTER 2023-05-27 14:53 | Emergency (ER) | payer MEDICARE, SELFPAY ==
[2023-05-27] VITALS (19 sets, daily range): BP systolic 91–130; BP diastolic 40–74; PULSE 80–104; RESP 13–29; TEMP 36.1; O2SAT 93–100
--- NOTE | 2023-05-27 15:00 | RT.EKG_ITS ---
APPROVED REPORT Exam: Resting ECG Reason for Exam: Vomiting diarrhea, eval QT Patient Location: E HR:93 bpm ECG Measurements Heart Rate 93 AXIS OK 139 P 53 QRSd 87 QRS 65 QT 400 T -46 QTc 497 Conclusion Sinus rhythm. normal axis + PVC
--- NOTE | 2023-05-27 15:17 | W.ED.GENAD ---
HPI General Mode of arrival: ambulatory. Date/Time Provider Initiated Documentation: 05/27/23 15:07. Limitations to Documentation: no limitations. Information obtained by: patient, family, RN notes reviewed and old records reviewed. HPI Narrative: 72-year-old female with a past medical history of metastatic bladder cancer with mets to the lungs with adenocarcinoma presents to the ER with a chief complaint of nausea vomiting and diarrhea decreased p.o. intake over the last few days. Patient states that she has been taking the chemo medications orally since the . She denies any hematochezia or mucus noted in her stool. She denies any new abdominal pain she does endorse chills no fever. She does report dizziness. She presents alert and oriented slightly hard of hearing hemodynamically stable condition. Other past medical history includes hypothyroidism, acute kidney injury, she is a palliative care patient, renal insufficiency. She is taking Compazine for the nausea. Related Data Home Medications Medication Instructions Recorded Confirmed tramadol 50 mg tablet 50 mg PO DAILY PRN 12/05/21 05/27/23 levothyroxine 75 mcg capsule 75 mcg PO DAILY #90 caps 02/27/22 05/27/23 acetaminophen 500 mg capsule 500 mg PO Q6H PRN 09/04/22 05/27/23 prochlorperazine maleate 10 mg 10 mg PO Q6H PRN 09/04/22 05/27/23 tablet (Compazine) adagrasib 200 mg tablet (Krazati) 400 mg PO BID 05/27/23 05/27/23 ondansetron 4 mg disintegrating 4 mg PO Q8H PRN nausea and 05/27/23 tablet vomiting 4 days #9 tabs Previous Rx's Medication Instructions Recorded levothyroxine 75 mcg capsule 75 mcg PO DAILY #90 caps 02/27/22 ondansetron 4 mg disintegrating 4 mg PO Q8H PRN nausea and 05/27/23 tablet vomiting 4 days #9 tabs Allergies Allergy/AdvReac Type Severity Reaction Status Date / Time No Known Allergies Allergy Unverified 05/27/23 15:01 General Stated Complaint: GenMedical GOOD: 3 Review of Systems All systems reviewed & are unremarkable except as noted in HPI and below ENT Ears, Nose, Mouth, and Throat: Reports dizziness Gastrointestinal Gastrointestinal: Reports as per HPI, Reports diarrhea, Reports nausea and Reports vomiting Neurologic Neurologic: Reports dizziness Exam Narrative Exam Narrative: Constitutional: Alert and oriented x3. Appears stated age. Thin body habitus. Head: Normocephalic, no trauma. Eyes: Pupils PERRL, Red reflex noted, EOM's intact. Eyelids symmetrical without lesions, discharge, or swelling. ENT: Bilateral TM's WNL, External ear normal to inspection, no mastoid TTP, swelling, or erythema, Nasal turbinates WNL, no nasal discharge. Normal dentition, Posterior pharynx WNL, no exudate. Chest: RRR, Normal S1, S2, distal pulses intact. Resp: Lungs clear to auscultation bilaterally, no wheezes, rales, or rhonchi. Abdomen: Soft, non-distended, Normoactive bowel sounds all 4 quads. Musculoskeletal: Unable to assess gait 5/5 strength to all four extremities. Skin: No suspicious rashes or lesions. Capillary refill less than 2 sec. Neurologic: Cranial nerves II-XII intact. Alert and oriented x 3. Motor: No deficits noted. Hematologic/Lymphatic: No ecchymosis, no lymphadenopathy. Course Vital Signs Vital signs: Vital Signs Temperature 36.1 C L 05/27/23 14:57 Pulse 96 H 05/27/23 14:57 Respiratory Rate 18 05/27/23 14:57 Blood Pressure 111/58 L 05/27/23 14:57 Pulse Oximetry 97 05/27/23 14:57 Temperature 36.1 C L 05/27/23 15:08 Temperature Source Skin 05/27/23 15:08 Pulse 96 H 05/27/23 15:08 Respiratory Rate 18 05/27/23 15:08 Respiratory Effort Normal, Non-Labored 05/27/23 15:08 Respiratory Depth Normal 05/27/23 15:08 Respiratory Pattern Normal 05/27/23 15:08 Blood Pressure 111/58 L 05/27/23 15:08 Blood Pressure Position Sitting 05/27/23 15:08 Pulse Oximetry 97 05/27/23 15:08 Oxygen Delivery Method Room Air 05/27/23 15:08 Oxygen Flow Rate 0 05/27/23 15:08 Pain Level 0 05/27/23 15:08 Medical Decision Making 72-year-old female with a past medical history of metastatic bladder cancer with mets to the lungs with adenocarcinoma presents to the ER with a chief complaint of nausea vomiting and diarrhea decreased p.o. intake over the last few days. Patient states that she has been taking the chemo medications orally since the . She denies any hematochezia or mucus noted in her stool. She denies any new abdominal pain she does endorse chills no fever. She does report dizziness. She presents alert and oriented slightly hard of hearing hemodynamically stable condition. Other past medical history includes hypothyroidism, acute kidney injury, she is a palliative care patient, renal insufficiency. She is taking Compazine for the nausea. Workup ordered including CBC CMP, magnesium, IV access lipase normal saline 1 L. EKG ordered to rule out QT prolongation. 153: EKG was reviewed by Dr. Caballero ER attending, occasional PVCs, QT is 400 Patient was given 4 mg of Zofran and is requesting some p.o. water small amounts okay. CBC shows no leukocytosis hemoglobin hematocrit largely within normal limits patient does have a history of anemia, sodium 132 potassium 2.8 which is down from 4 approximately 2 weeks ago, BUN is 26 creatinine 2.4 GFR is 21, lipase within normal limits. Potassium liquid 40 mill equivalents p.o. ordered, 20 mill equivalents IV piggyback and carrier fluid. Will plan to recheck potassium after infusion. 1632: Informed by junior staff accountant that patient is having a difficulty time tolerating the liquid potassium but is willing to take p.o. tablet. 40 mill equivalents tablets ordered. 191: On patient reevaluation she reports she is feeling much better her repeat potassium is 4.2 which is within normal limits. Please see labs below. Discussed home care and rehydration with Gatorade or similar while having diarrhea she verbalized understanding her family is at the bedside. She reports that she is feeling somewhat better. Instructed to follow-up with her PCP. She has remained hemodynamically stable alert and oriented throughout the remainder of her stay. This text was generated using [employer] dictation system, please disregard any oddities of phrase or misspellings. Medical Records Medical records reviewed: Yes I reviewed the patient's medical records. Lab Data Lab results reviewed: Yes I reviewed the patient's lab results. Labs: Laboratory Tests Range/Units 05/27/23 15:40 WBC (4.4-10.8) 10^3/uL 6.90 RBC (3.93-5.22) 10^6/uL 4.40 Hgb (11.2-15.7) g/dL 10.9 L Hct (36.0-46.0) % 33.8 L MCV (80-95) fL 77 L MCH (27.0-33.0) pg 24.8 L MCHC (32.0-36.0) % 32.2 RDW (11.7-14.6) % 14.4 Plt Count (130-400) 10^3/uL 305 MPV (8.0-11.0) fL 9.4 Immature Gran % 0.9 Neutrophils % 77.1 Lymphocytes % 10.1 Monocytes % 7.0 Eosinophils % 4.6 Basophils % 0.3 Nucleated RBC % (0.0-0.3) % 0.0 Absolute Neutrophils (1.2-6.7) 10^3/uL 5.32 Absolute Lymphocytes (1.2-3.4) 10^3/uL 0.70 L Absolute Monocytes (0.1-0.8) 10^3/uL 0.48 Absolute Eosinophils (0.0-0.7) 10^3/uL 0.32 Absolute Basophils (0.0-0.2) 10^3/uL 0.02 Sodium (136-145) mmol/L 132 L Potassium (3.5-5.1) mmol/L 2.8 L* Chloride (98-107) mmol/L 99 Carbon Dioxide (21.0-32.0) mmol/L 22.0 Anion Gap (3-11) mmol/L 11.0 BUN (7-18) mg/dL 26 H Creatinine (0.55-1.02) mg/dL 2.4 H Est GFR (CKD-EPI 2020) (mL/min/1.73m2) 21.06 Glucose (74-106) mg/dL 132 H Calcium (8.5-10.1) mg/dL 8.5 Magnesium (1.8-2.4) mg/dL 1.8 Total Bilirubin (0.2-1.0) mg/dL 0.7 AST (15-37) U/L 27 ALT (14-59) U/L 40 Alkaline Phosphatase (46-116) U/L 212 H Total Protein (6.4-8.2) g/dL 8.3 H Albumin (3.4-5.0) g/dL 2.7 L Lipase (16-77) U/L 30 Quality:SDOH Health Related Social Needs: No Data to Display PFSH All Active Problems (Updated 05/27/23 @ 19:20 by Shara Abbott NP) Hypokalemia (Acute) Nausea vomiting and diarrhea (Acute) Hypothyroid (Chronic) DNR (do not resuscitate) (Acute) CKD (chronic kidney disease), stage III (Acute) Palliative care status (Acute) Urothelial carcinoma (Acute) b/l stents Adenocarcinoma of lung, stage 3 (Acute) Folate deficiency (Acute) Anemia (Chronic) Medical History Tongue lesion Metastatic urothelial carcinoma Renal insufficiency Back pain Abnormal thyroid function test Leukocytosis Complication of nephrostomy Bladder cancer Palliative care patient Thrombocytosis BRITNI (acute kidney injury) Obstructive uropathy Airway obstruction Lung mass Renal failure Social History Smoking/Tobacco Use Status: Former Tobacco Use Quit Date: 07/04/14 Smoking risk assessment performed?: Yes Alcohol Intake: never Substance use type: does not use Do you feel safe at home: Yes Do you feel safe in your relationship?: Yes Discharge Plan Disposition Patient Disposition: Home Condition: Improving Discharge Details Clinical Impression: Nausea vomiting and diarrhea, Hypokalemia Primary Care Provider: Tavia Ramirez ED Provider: Shara Abbott Home Meds and New Rx's Prescriptions: New ondansetron 4 mg tablet,disintegrating 4 mg PO Q8H PRN (Reason: nausea and vomiting) 4 Days Qty: 9 0RF Rx Instructions: Take 1 tablet up to 3 times daily as needed for nausea and vomiting 20 minutes prior to meals. No Action tramadol 50 mg tablet 50 mg PO DAILY PRN levothyroxine 75 mcg capsule 75 mcg PO DAILY Qty: 90 3RF acetaminophen 500 mg capsule 500 mg PO Q6H PRN prochlorperazine maleate [Compazine] 10 mg tablet 10 mg PO Q6H PRN Krazati 200 mg tablet 400 mg PO BID Discharge Instructions Instructions: Hypokalemia (ED), Acute Nausea and Vomiting (ED) Additional Instructions: Please take the nausea medication as directed. Your potassium was low today on the readings. Please drink electrolyte drinks such as Gatorade or similar while having diarrhea. You may also drink Gatorade or similar to stay hydrated. Follow up with primary care provider in 3-5 days. Return to ED sooner if any worsening or concerns. Increase oral fluids. Referrals: Tavia Ramirez [Primary Care Provider] - 3 days
[2023-05-27] MEDS: Normal Saline 1,000 ML 1000 ML IV (15:49)
[2023-05-27] MEDS: Ondansetron 4 MG/2 ML VIAL IVP (15:50)
[2023-05-27 15:52] LABS: Abs Immature Grans 0.06 10^3/uL (0.0-0.06); Absolute Basophil Count 0.02 10^3/uL (0.0-0.2); Absolute Eosinophil Count 0.32 10^3/uL (0.0-0.7); Absolute Monocyte Count 0.48 10^3/uL (0.1-0.8); Absolute Neutrophil Count 5.32 10^3/uL (1.2-6.7); Basophils % 0.3; Eosinophils % 4.6; HCT 33.8 % (36.0-46.0); HGB 10.9 g/dL (11.2-15.7); Immature Grans % 0.9; Lymphocytes % 10.1; MCH 24.8 pg (27.0-33.0); MCHC 32.2 % (32.0-36.0); MCV 77 fL (80-95); MPV 9.4 fL (8.0-11.0); Neutrophils % 77.1; Platelet Count 305 10^3/uL (130-400); RDW 14.4 % (11.7-14.6); RDW-SD 40.5 fL
[2023-05-27 16:04] LABS: ALT 40 U/L (14-59); AST 27 U/L (15-37); Albumin 2.7 g/dL (3.4-5.0); Alkaline Phosphatase 212 U/L (46-116); BUN 26 mg/dL (7-18); Bilirubin, Total 0.7 mg/dL (0.2-1.0); CREATININE 2.4 mg/dL (0.55-1.02); Calcium 8.5 mg/dL (8.5-10.1); Chloride 99 mmol/L (98-107); Estimated GFR 21.06 (mL/min/1.73m2); Glucose 132 mg/dL (74-106); Lipase 30 U/L (16-77); Magnesium 1.8 mg/dL (1.8-2.4); Sodium 132 mmol/L (136-145); Total Protein 8.3 g/dL (6.4-8.2)
[2023-05-27 16:05] LABS: Potassium 2.8 mmol/L (3.5-5.1)
[2023-05-27] MEDS: POTASSIUM CHLORIDE 20 MEQ/100 ML BAG 50 MEQ IVPB (16:23)
[2023-05-27] MEDS: Potassium Chloride 20 MEQ TABCR 40 MEQ PO (16:36)
[2023-05-27] MEDS: Normal Saline 1,000 ML 200 ML IV (16:58)
[2023-05-27 18:59] LABS: Anion Gap 8.9 mmol/L (3-11); BUN 23 mg/dL (7-18); CO2 21.1 mmol/L (21.0-32.0); CREATININE 2.1 mg/dL (0.55-1.02); Chloride 103 mmol/L (98-107); Estimated GFR 24.73 (mL/min/1.73m2); Glucose 113 mg/dL (74-106); Sodium 133 mmol/L (136-145)
[2023-05-27 19:03] LABS: Potassium 4.2 mmol/L (3.5-5.1)
[2023-05-27] MEDS: Ondansetron O.D.T. 4 MG TABEF, 3 TABS/BTL PO (19:24)
== END 2023-05-27 19:31 | disposition home or self-care (01) ==
PROVIDERS: Emergency Provider Registered Nurse Emergency; PCP Nurse Practitioner Family
DX: R11.2 Nausea with vomiting, unspecified (principal); R19.7 Diarrhea, unspecified; E87.6 Hypokalemia; C67.9 Malignant neoplasm of bladder, unspecified; C78.00 Secondary malignant neoplasm of unspecified lung; N18.30 Chronic kidney disease, stage 3 unspecified; Z92.21 Personal history of antineoplastic chemotherapy
CPT/HCPCS: 80048; 80053; 83690; 93005; 96365; 96366; 96375; 99284; 83735; 85025; 93010; J2405; J3480

== ENCOUNTER 2023-06-23 03:53 | Outpatient (RCR) | payer MEDICARE, SELFPAY ==
[2023-06-09 12:34] LABS: Abs Immature Grans 0.15 10^3/uL (0.0-0.06); Absolute Basophil Count 0.05 10^3/uL (0.0-0.2); Absolute Eosinophil Count 0.46 10^3/uL (0.0-0.7); Absolute Monocyte Count 0.87 10^3/uL (0.1-0.8); Basophils % 0.4; HCT 33.4 % (36.0-46.0); HGB 10.3 g/dL (11.2-15.7); Immature Grans % 1.3; Lymphocytes % 17.4; MCH 24.5 pg (27.0-33.0); MCHC 30.8 % (32.0-36.0); MCV 79 fL (80-95); MPV 8.4 fL (8.0-11.0); Monocytes % 7.6; Neutrophils % 69.3; Platelet Count 409 10^3/uL (130-400); RBC 4.21 10^6/uL (3.93-5.22); RDW 17.4 % (11.7-14.6); RDW-SD 47.4 fL; WBC 11.48 10^3/uL (4.4-10.8)
[2023-06-09 12:37] LABS: Absolute Neutrophil Count 7.96 10^3/uL (1.2-6.7)
[2023-06-09 12:48] LABS: ALT 16 U/L (14-59); AST 15 U/L (15-37); Albumin 2.9 g/dL (3.4-5.0); Alkaline Phosphatase 169 U/L (46-116); Anion Gap 9.2 mmol/L (3-11); BUN 19 mg/dL (7-18); Bilirubin, Total 0.7 mg/dL (0.2-1.0); CO2 24.8 mmol/L (21.0-32.0); CREATININE 1.6 mg/dL (0.55-1.02); Calcium 8.7 mg/dL (8.5-10.1); Chloride 105 mmol/L (98-107); Estimated GFR 34.27 (mL/min/1.73m2); Glucose 98 mg/dL (74-106); Magnesium 2.2 mg/dL (1.8-2.4); Potassium 4.4 mmol/L (3.5-5.1); Sodium 139 mmol/L (136-145); Total Protein 8.5 g/dL (6.4-8.2)
[2023-06-09] MEDS: Normal Saline Flush 10 ML SYR IVP (12:51)
[2023-06-23] MEDS: Normal Saline Flush 10 ML SYR IVP (14:23)
[2023-06-23 14:28] LABS: Abs Immature Grans 0.02 10^3/uL (0.0-0.06); Absolute Basophil Count 0.05 10^3/uL (0.0-0.2); Absolute Lymphocyte Count 2.29 10^3/uL (1.2-3.4); Absolute Monocyte Count 0.98 10^3/uL (0.1-0.8); Absolute Neutrophil Count 2.79 10^3/uL (1.2-6.7); Basophils % 0.8; Eosinophils % 7.5; HCT 35.8 % (36.0-46.0); HGB 11.2 g/dL (11.2-15.7); Immature Grans % 0.3; Lymphocytes % 34.5; MCH 25.1 pg (27.0-33.0); MCHC 31.3 % (32.0-36.0); MCV 80 fL (80-95); MPV 8.9 fL (8.0-11.0); Monocytes % 14.8; Neutrophils % 42.1; Platelet Count 531 10^3/uL (130-400); RBC 4.47 10^6/uL (3.93-5.22); RDW 16.7 % (11.7-14.6); RDW-SD 48.8 fL; WBC 6.63 10^3/uL (4.4-10.8)
[2023-06-23 14:48] LABS: ALT 19 U/L (14-59); AST 19 U/L (15-37); Albumin 3.2 g/dL (3.4-5.0); Alkaline Phosphatase 126 U/L (46-116); Anion Gap 10.2 mmol/L (3-11); BUN 19 mg/dL (7-18); Bilirubin, Total 0.5 mg/dL (0.2-1.0); CO2 23.8 mmol/L (21.0-32.0); CREATININE 1.5 mg/dL (0.55-1.02); Calcium 8.6 mg/dL (8.5-10.1); Chloride 106 mmol/L (98-107); Estimated GFR 37.03 (mL/min/1.73m2); Glucose 99 mg/dL (74-106); Magnesium 2.3 mg/dL (1.8-2.4); Potassium 4.4 mmol/L (3.5-5.1); Sodium 140 mmol/L (136-145); Total Protein 8.6 g/dL (6.4-8.2)
== END 2023-06-26 23:59 | disposition home or self-care (01) ==
LOC: INF 03:53
PROVIDERS: Internal Medicine Medical Oncology; PCP Nurse Practitioner Family; Visit Provider Internal Medicine
DX: C34.32 Malignant neoplasm of lower lobe, left bronchus or lung (principal); C78.2 Secondary malignant neoplasm of pleura; E03.2 Hypothyroidism due to medicaments and other exogenous substances; Z45.2 Encounter for adjustment and management of vascular access device
CPT/HCPCS: 36591; 80053; 83735; 84439; 84443; 85025

== ENCOUNTER 2023-07-21 04:55 | Outpatient (RCR) | payer MEDICARE, SELFPAY ==
[2023-07-21] MEDS: Normal Saline Flush 10 ML SYR IVP (13:25)
[2023-07-21 14:17] LABS: Abs Immature Grans 0.03 10^3/uL (0.0-0.06); Absolute Basophil Count 0.06 10^3/uL (0.0-0.2); Absolute Eosinophil Count 0.31 10^3/uL (0.0-0.7); Absolute Monocyte Count 1.01 10^3/uL (0.1-0.8); Absolute Neutrophil Count 5.16 10^3/uL (1.2-6.7); Basophils % 0.7; Eosinophils % 3.7; HCT 37.6 % (36.0-46.0); HGB 11.5 g/dL (11.2-15.7); Immature Grans % 0.4; Lymphocytes % 22.4; MCH 24.7 pg (27.0-33.0); MCHC 30.6 % (32.0-36.0); MCV 81 fL (80-95); MPV 9.5 fL (8.0-11.0); Monocytes % 11.9; Neutrophils % 60.9; Platelet Count 546 10^3/uL (130-400); RBC 4.65 10^6/uL (3.93-5.22); RDW 17.5 % (11.7-14.6); RDW-SD 51.5 fL; WBC 8.47 10^3/uL (4.4-10.8)
[2023-07-21 14:41] LABS: BUN 30 mg/dL (7-18); Bilirubin, Total 0.7 mg/dL (0.2-1.0); CREATININE 1.8 mg/dL (0.55-1.02); Chloride 107 mmol/L (98-107); Estimated GFR 29.57 (mL/min/1.73m2); Magnesium 2.2 mg/dL (1.8-2.4); Potassium 4.3 mmol/L (3.5-5.1); Sodium 139 mmol/L (136-145)
[2023-07-21 15:31] LABS: ALT 20 U/L (14-59); AST 23 U/L (15-37); Albumin 3.2 g/dL (3.4-5.0); Alkaline Phosphatase 102 U/L (46-116); Anion Gap 10.1 mmol/L (3-11); CO2 21.9 mmol/L (21.0-32.0); Calcium 8.3 mg/dL (8.5-10.1); Glucose 104 mg/dL (74-106); TSH 2.76 uIU/Ml (0.36-3.74); Total Protein 8.4 g/dL (6.4-8.2)
== END 2023-07-27 23:59 | disposition home or self-care (01) ==
LOC: INF 04:55
PROVIDERS: PCP Nurse Practitioner Family; Visit Provider Internal Medicine
DX: C79.10 Secondary malignant neoplasm of unspecified urinary organs (principal); E03.2 Hypothyroidism due to medicaments and other exogenous substances; C78.2 Secondary malignant neoplasm of pleura; C34.32 Malignant neoplasm of lower lobe, left bronchus or lung; Z45.2 Encounter for adjustment and management of vascular access device
CPT/HCPCS: 36591; 80053; 83735; 84439; 84443; 85025

== ENCOUNTER 2023-08-22 15:39 | Outpatient (REF) | payer MEDICARE, SELFPAY | END 2023-08-22 15:40 | disposition home or self-care (01) | LOC: NCHCN 15:39 | PROVIDERS: PCP Nurse Practitioner Family; Visit Provider Nurse Practitioner Family | DX: N39.0 Urinary tract infection, site not specified (principal) | CPT/HCPCS: 87086 ==

== ENCOUNTER 2023-09-29 04:23 | Outpatient (RCR) | payer MEDICARE, SELFPAY ==
[2023-09-29] MEDS: Normal Saline Flush 10 ML SYR IVP (12:30)
[2023-09-29 13:04] LABS: Abs Immature Grans 0.03 10^3/uL (0.0-0.06); Absolute Basophil Count 0.03 10^3/uL (0.0-0.2); Absolute Eosinophil Count 0.26 10^3/uL (0.0-0.7); Absolute Lymphocyte Count 1.09 10^3/uL (1.2-3.4); Absolute Neutrophil Count 4.63 10^3/uL (1.2-6.7); Basophils % 0.5 %; Eosinophils % 3.9 %; HCT 35.2 % (36.0-46.0); Immature Grans % 0.5 %; Lymphocytes % 16.4 %; MCH 24.2 pg (27.0-33.0); MCHC 31.3 % (32.0-36.0); MCV 77 fL (80-95); MPV 9.6 fL (8.0-11.0); Neutrophils % 69.7 %; Platelet Count 609 10^3/uL (130-400); RBC 4.55 10^6/uL (3.93-5.22); RDW 15.2 % (11.7-14.6); RDW-SD 41.8 fL; WBC 6.64 10^3/uL (4.4-10.8)
[2023-09-29 13:28] LABS: ALT 13 U/L (14-59); AST 11 U/L (15-37); Alkaline Phosphatase 85 U/L (46-116); Anion Gap 10.4 mmol/L (3-11); BUN 20 mg/dL (7-18); Bilirubin, Total 0.5 mg/dL (0.2-1.0); CO2 22.6 mmol/L (21.0-32.0); CREATININE 1.9 mg/dL (0.55-1.02); Calcium 8.5 mg/dL (8.5-10.1); Chloride 106 mmol/L (98-107); Estimated GFR 27.71 (mL/min/1.73m2); FREE T4 1.03 ng/dL (0.76-1.46); Glucose 100 mg/dL (74-106); Magnesium 2.2 mg/dL (1.8-2.4); Potassium 3.8 mmol/L (3.5-5.1); Sodium 139 mmol/L (136-145); TSH 2.51 uIU/Ml (0.36-3.74); Total Protein 8.2 g/dL (6.4-8.2)
== END 2023-10-26 23:59 | disposition home or self-care (01) ==
LOC: INF 04:23
PROVIDERS: Visit Provider Internal Medicine Medical Oncology
DX: C79.10 Secondary malignant neoplasm of unspecified urinary organs (principal); E03.2 Hypothyroidism due to medicaments and other exogenous substances; C78.2 Secondary malignant neoplasm of pleura; C34.32 Malignant neoplasm of lower lobe, left bronchus or lung; Z45.2 Encounter for adjustment and management of vascular access device
CPT/HCPCS: 36415; 36591; 80053; 83735; 84439; 84443; 85025

== ENCOUNTER 2023-11-21 15:49 | Outpatient (REF) | payer MEDICARE, SELFPAY ==
--- OUTSIDE RECORDS SUMMARY | 2023-11-21 15:53 | XMS_ITS | Encounter Summary ---
Author Organization [facility] Address [address] [place] [address] Care Team Providers Care Review Nurse Name Role Phone Unavailable Primary Care Provider Unavailabl e Encounter Details Date Type Department Care Team (Late st Contact Info) Description 01/29/2007 [facility] [address] [place] [address] Meeta Garcia PA [address] [place] [address] [phone] Social History Tobacco Use Types Packs/Day Years Used Date Smoking Tobacco: Never Assessed Sex and Gender Information Value Date Recorded Sex Assigned at Not on file Gender Identity Not on file Sexual Orientation Not on file documented as of this encounter Plan of Treatment Not on file documented as of this encounter Procedures Procedure Name Priority Date/Time Associated Diagnosis Comments HPV DETECTION, HIGH RISK TYPES Routine 01/29/2007 8:59 EDT CYTOPATHOLOGY Routine 01/29/2007 0:00 EDT documented in this encounter Results * HUMAN PAPILLOMA VIRUS DNA TEST (01/29/2007 8:59 EDT) Specimen Description Cervix, ThinPrep vial [facility] Result Negative for HPV types 16, 18, 31, 33, 35, 39, 45, 51, 52, 56, 58, 59, and 68. [facility] Report Status Final [id number] [facility] 01/29/2007 8:59 EDT 02/10/2007 8:59 EDT Meeta RANGEL MICROBIOLOGY - GENER AL ORDERABLES [facility] [address] [place] [address] * CYTOPATHOLOGY (01/29/2007 0:00 EDT) Pathology Report: CYTOPATHOLOGY REPORT Reports generated via electronic interface contain original data; however they are lacking the format of the original report. Caution should be taken when reading/interpreti ng unformatted reports. Name: ? BARB BULLARD ? Accession #: ? [id number] : ? 1950 (Age: 56) ??F ?Collect Date: ? 01/29/2007 Location: ? [facility] ? Receive Date: ? 02/02/2007 Provider: ?MEETA RANGEL Copy to: ? Specimen/Source: ?ThinPrep Pap Test, Cervix/Endocervix, processed on [employer] ThinPrep Imaging System, with manual evaluation Last Menstrual Period: ? Menstrual/Pregnanc y Status: ? Post Menopausal Previous Gynecologic Pathology: ? Yes Treatment History: ? LEEP: 20 yrs ago Other: ? HPVDX - HPV testing requested regardless of diagnosis on current ThinPrep Pap test. ? SPECIMEN ADEQUACY ? Satisfactory for Evaluation - assessment of transformation zone component not applicable ( e.g. atrophy, vaginal sample, hysterectomy) GENERAL CATEGORIZATION ? Negative for Intraepithelial Lesion or Malignancy ? Document reviewed and electronically signed by: ? Angelia Arana, JAIME(ASCP)(IAC) ? Report Date: ??02/09/2007 18:28 End of Report [facility] 01/29/2007 02/02/2007 Meeta RANGEL PATHOLOGY ORDERABLES Performing Organization Address City/State/[facility] Co de Phone Number [facility] [address] [place] [address] documented in this encounter Visit Diagnoses Not on filedocumented in this encounter
--- OUTSIDE RECORDS SUMMARY | 2023-11-21 15:53 | XMS_ITS | Encounter Summary ---
Author Organization [facility] Address [address] [place] [id number] Care Team Providers Care Manager Express Name Role Phone Unknown, Provider Primary Care Provider Encounter Details Date Type Department Care Team (Late st Contact Info) Description 03/03/2021 Lab Requisition [facility] [address] [place], [place] [address] Outr Resulting Lab, Provider Social History Tobacco Use Types Packs/Day Years Used Date Smoking Tobacco: Never Assessed Sex and Gender Information Value Date Recorded Sex Assigned at Not on file Gender Identity Not on file Sexual Orientation Not on file documented as of this encounter Plan of Treatment Not on file documented as of this encounter Procedures Procedure Name Priority Date/Time Associated Diagnosis Comments HEPATITIS C AB W REFLEX TO HCV RNA BY PCR Routine 03/02/2021 14:00 EDT documented in this encounter Results * HEPATITIS C AB W REFLEX TO HCV RNA BY PCR (03/02/2021 14:00 EDT) Hep C Antibody Negative Negative 03/05/2021 9:42 EST [facility] Blood VENOUS BLOOD / Unknown 03/02/2021 14:00 EDT 03/04/2021 16:56 EST Provider Outr Resulting Lab CHEMISTRY & BLOOD GAS ORDERABLES [facility] [address] [place] [address] documented in this encounter Visit Diagnoses Not on filedocumented in this encounter Care Teams Manager Express Relationship Specialty Start Date End Date Unknown, Provider, PCP - General 04/28/20 documented as of this encounter
--- OUTSIDE RECORDS SUMMARY | 2023-11-21 15:53 | XMS_ITS | Encounter Summary ---
Author Organization [facility] Address [address] [place] [address] Care Team Providers Care Mold Making Supervisor Name Role Phone Unknown, Provider Primary Care Provider [phone] Encounter Details Date Type Department Care Team (Late st Contact Info) Description 02/20/2021 Lab Requisition [facility] Pathology & Laboratory Medicine - [facility] [address] [place] [address] Leandro Arzate MD [address] [place] [address] [place] [address] Unspecified hydronephrosis Social History Tobacco Use Types Packs/Day Years Used Date Smoking Tobacco: Never Assessed Sex and Gender Information Value Date Recorded Sex Assigned at Not on file Gender Identity Not on file Sexual Orientation Not on file documented as of this encounter Plan of Treatment Not on file documented as of this encounter Procedures Procedure Name Priority Date/Time Associated Diagnosis Comments SURGICAL PATHOLOGY Today 02/19/2021 15 :30 EDT Unspecified hydronephrosis documented in this encounter Results * SURGICAL PATHOLOGY (02/19/2021 15:30 EDT) Note to Patient The following pathology results have been interpreted by your pathologist and may be available to you before your health provider has had the opportunity to review them. Please allow time for your provider to receive these results and explore management options, if applicable. 02/23/2021 15:27 EDT [facility] Final Diagnosis A. URINARY BLADDER, BIOPSY: - Invasive carcinoma, favor urothelial carcinoma, high-grade, with necrosis. See comment. - Tumor invades at least subepithelial lamina propria. - No muscularis propria identified. 02/23/2021 15:27 [facility] Diagnosis Comment Immunohistochemical study was performed on (A1) to characterize the invasive tumor, and the tumor cells show positive immunoreactivity to GATA3, suggesting urothelial differentiation. IMMUNOHISTOCHEMISTRY: ANTIBODY(CLONE)(BLOCK ):RESULT GATA3 ([id number], [place]) (A1): positive NOTE: One or more of the reagents used in immunoperoxidase testing in this case may not have been cleared or approved by the U.S. Food and Drug Administration (FDA). The FDA has determined that such clearance or approval is not necessary. These tests are used for clinical purposes. They should not be regarded as investigational or for research. These reagents' performance characteristics have been determined by [facility] and/or by the referring laboratory. The positive and negative controls worked appropriately. If immunoperoxidase staining has been performed on alcohol fixed cytology specimens, which has not been fully validated, the assays should be interpreted with caution and correlated with clinical data. This laboratory is certified under the Clinical Laboratory Improvement Amendments of 1988 (CLIA-88) as qualified to perform high complexity clinical laboratory testing. 02/23/2021 15:27 [facility] Attestation By the signature below, the attending physician certifies that they have 1) personally conducted a gross and/or microscopic examination of the described specimen(s), and/or personally interpreted the results of laboratory testing of the described specimen(s), and 2) personally rendered or confirmed the above diagnosis. 02/23/2021 15:27 [facility] at 1527 Synoptic URINARY BLADDER: Biopsy and Transurethral Resection of Bladder Tumor (TURBT) URINARY BLADDER: BIOPSY AND TURBT - A 8th Edition - Protocol posted: 06/24/2018 SPECIMEN ?? Procedure: ?Biopsy TUMOR ?? Tumor Site: ?Not specified ?? Histologic Type: ?Urothelial carcinoma, invasive ?? Histologic Grade: ?High-grade ?? Tumor Extension: ?Tumor invades lamina propria (subepithelial connective tissue) ?? Muscularis Propria Presence: ?No muscularis propria (detrusor muscle) identified ?? Lymphovascular Invasion: ?Not identified ADDITIONAL FINDINGS ?? Associated Epithelial Lesions: ?None identified ?? Additional Pathologic Findings: ?Cautery artifact ?? Additional Pathologic Findings: ?necrosis 02/23/2021 15:27 EDT [facility] Clinical History Hydronephrosis; nodular mass in bladder, not typical papillary lesion; clinical diagnosis code: N19, N39.0 N32.89, A41.9, N13.9, N17.9, D62, D75.839, E53.8, Z29.9, N13.30 02/23/2021 15:27 EDT [facility] Gross Description A. Received in formalin labelled with proper patient identification (initials Y, J) and bladder Bx are nine white focally red brown speckled irregular soft tissues (0.4 x 0.4 x 0.1 cm to 0.2 x 0.1 x 0.1 cm). Entirely submitted in A1-A3. Parish Lara 02/20/2021 10:12 02/23/2021 15:27 EDT [facility] Performing Lab [facility] 02/23/2021 15:27 T [facility] Scanned Images 02/23/2021 15:27 T [facility] Tissue URINARY BLADDER BIOPSY SPECIMEN / Unknown 02/19/2021 15:30 EDT 02/20/2021 8:43 EDT Leandro Arzate MD PATHOLOGY ORDERAB LES [facility] [address] [place] [address] documented in this encounter Visit Diagnoses Diagnosis Unspecified hydronephrosis documented in this encounter Care Teams Mold Making Supervisor Relationship Specialty Start Date End Date Unknown, Provider, PCP - General 04/28/20 documented as of this encounter
--- OUTSIDE RECORDS SUMMARY | 2023-11-21 15:53 | XMS_ITS | Referral Summary ---
Author Organization [facility] Address [address] [place] [id number] Care Team Providers Care Second Miller Name Role Phone Unknown, Provider Primary Care Provider Social History Tobacco Use Types Packs/Day Years Used Date Smoking Tobacco: Never Assessed Sex and Gender Information Value Date Recorded Sex Assigned at Not on file Gender Identity Not on file Sexual Orientation Not on file Plan of Treatment Not on file Procedures Procedure Name Priority Date/Time Associated Diagnosis Comments HEPATITIS C AB W REFLEX TO HCV RNA BY PCR Routine 03/02/2021 14:00 EDT from Last 3 Months or Most Recently Relevant to Health Maintenance Results * HEPATITIS C AB W REFLEX TO HCV RNA BY PCR (03/02/2021 14:00 EDT) Hep C Antibody Negative Negative 03/05/2021 9:42 EST [facility] Blood VENOUS BLOOD / Unknown 03/02/2021 14:00 EDT 03/04/2021 16:56 EST Provider Outr Resulting Lab CHEMISTRY & BLOOD GAS ORDERABLES [facility] [address] [place] [address] from Last 3 Months or Most Recently Relevant to Health Maintenance Care Teams Second Miller Relationship Specialty Start Date End Date Unknown, Provider, PCP - General 04/28/20
--- OUTSIDE RECORDS SUMMARY | 2023-11-21 15:53 | XMS_ITS | Encounter Summary ---
Author Organization [facility] Address [address] [place] [address] Care Team Providers Care Nailing Machine Operator Automatic Name Role Phone Unavailable Primary Care Provider Unavailabl e Encounter Details Date Type Department Care Team (Late st Contact Info) Description 12/30/2003 Results Only [facility] [address] [place] [address] Meeta Garcia PA [address] [place], [place] [id number] Social History Tobacco Use Types Packs/Day Years Used Date Smoking Tobacco: Never Assessed Sex and Gender Information Value Date Recorded Sex Assigned at Not on file Gender Identity Not on file Sexual Orientation Not on file documented as of this encounter Plan of Treatment Not on file documented as of this encounter Procedures Procedure Name Priority Date/Time Associated Diagnosis Comments CYTOPATHOLOGY Routine 12/30/2003 0:00 EDT documented in this encounter Results * CYTOPATHOLOGY (12/30/2003 0:00 EDT) Pathology Report: CYTOPATHOLOGY REPORT Reports generated via electronic interface contain original data; however they are lacking the format of the original report. Caution should be taken when reading/interpreti ng unformatted reports. Name: ? BARB BULLARD ? Accession #: ? [id number] : ? 1950 (Age: 53) ??F ?Collect Date: ? 12/30/2003 Location: ? [facility] ? Receive Date: ? 01/03/2004 Provider: ?MEETA RANGEL Copy to: ? Specimen/Source: ?ThinPrep Pap Test, Cervix/Endocervix Last Menstrual Period: ? Menstrual/Pregnanc y Status: ? Post Menopausal Other: ? HPVA - HPV testing requested if ASC-US on the current ThinPrep Pap test. ? SPECIMEN ADEQUACY ? Satisfactory for Evaluation - transformation zone component present GENERAL CATEGORIZATION ? Negative for Intraepithelial Lesion or Malignancy ? Document reviewed and electronically signed by: ? JAIME Montoya(ASCP) ? Report Date: ??01/05/2004 14:31 End of Report [facility] 12/30/2003 01/03/2004 Meeta RANGEL PATHOLOGY ORDERABLES [facility] [address] [place] [address] documented in this encounter Visit Diagnoses Not on filedocumented in this encounter
--- OUTSIDE RECORDS SUMMARY | 2023-11-21 15:53 | XMS_ITS | Encounter Summary ---
Author Organization [facility] Address [facility] [place] [address] Care Team Providers Care Commercial Credit Portfolio Manager Name Role Phone Tavia Ramirez APRN Primary Care Provider [phone] Encounter Details Date Type Department Care Team (Late st Contact Info) Description 11/17/2023 Telephone Hematology/Oncology at [address] [address] Dianne Jacob APRN [address] [place] [address] HEMATOLOGY AND ONCOLOGY [place], [place] [id number] Social History Tobacco Use Types Packs/Day Years Used Date Smoking Tobacco: Former Cigarettes Q uit: 07/04/2014 Smokeless Tobacco: Never Alcohol Use Standard Drinks/Week Comments Not Currently 0 (1 standard drink = 0.6 oz pur e alcohol) [facility] Utilities Answer Date Recorded In the past 12 months has e [employer], gas, oil, or water [employer] threatened to shut off services in your home? No 08/08/2023 Overall Financial Resource Strain (CARDIA) Answe r Date Recorded How hard is it for you to pa y for the very basics like food, housing, medical care, and heating? Patient declined 03/27/2021 Hunger Vital Sign Answer Date Recorded Within the past 12 months, y ou worried that your food would run out before you got the money to buy more. Never true 08/08/19 24 Within the past 12 months, t he food you bought just didn't last and you didn't have money to get more. Never true 08/08/2023 PRAPARE - Transportation Answer Date Re corded In the past 12 months, has l ack of transportation kept you from medical appointments or from getting medications? No 07/27 In the past 12 months, has l ack of transportation kept you from meetings, work, or from getting things needed for daily living? No 08/08/2023 Housing Stability Vital Sign Answer Rashawn e Recorded In the last 12 months, was t here a time when you were not able to pay the mortgage or rent on time? No 08/08/2023 In the last 12 months, how many places have you lived? 1 08/08/2023 In the last 12 months, was t here a time when you did not have a steady place to sleep or slept in a penitentiary (including now)? No 08/08/2023 DH IPV Inpatient Questions Answer Date Recorded Does Anyone Try to Keep You From Having Contact with Others or Doing Things Outside Your Home? no 08/07/2023 Feels Threatened by Someone no 07/27 Feels Unsafe at Home or Work/School no 08/07/2023 Physical Signs of Abuse Present no 08/07/2023 Sex and Gender Information Value Date Recorded Sex Assigned at Not on file Gender Identity Not on file Sexual Orientation Not on file documented as of this encounter Miscellaneous Notes * Telephone Encounter - Margarita Watson RN - 11/17/2023 9:53 AM EDT ----- Message from Pamella Booker RN sent at 11/17/2023 9:19 AM EDT ----- ----- Message ----- From: Tg Pappas Sent: 11/17/2023 9:04 AM EDT To: [facility] Hem Onc Nurse Barb called to ask that we send in a new rx for her adagrasib (Krazati). Dr. Mckay has increased [id number] and she will be running out in a couple of days. documented in this encounter Plan of Treatment Upcoming Encounters Date Type Department Care Team (Late st Contact Info) Description 12/08/2023 3:30 PM EDT Office Visit Hematology/Oncology at [address] [address] Chase Mckay MD 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
--- OUTSIDE RECORDS SUMMARY | 2023-11-21 15:53 | XMS_ITS | Encounter Summary ---
[place] [address] Care Team Providers Care Brass Sorter Name Role Phone James Tavia Foster APRN Primary Care Provider [phone] Reason for Referral * Diagnostic Test (Routine) - Authorized Specialty Diagnoses / Procedures Referred By Contjoslyn t Referred To Contact Radiology Diagnoses Obstructive uropathy Bilateral hydronephrosis Procedures IR Nephrogram/Nephrostomy Tube Exchange Bilateral Alin Dillard MD [facility] [place] [address] [facility] [place] [address] Referral ID Status Reason Start Date Expiration Date Visits Requested Visits Authorized [id number] Authorized Specialty Service Requested 11/13/2023 05/15/2025 1 1 Reason for Visit * Diagnostic Test (Routine) - Closed Specialty Diagnoses / Procedures Referred By Contac t Referred To Contact Radiology Diagnoses Obstructive uropathy Procedures IR Nephrogram/Nephrostomy Tube Exchange Bilateral IR Nephrostomy Tube Exchange Left Kris Aguilar MD [facility] [place] [address] [facility] [place] [address] Referral ID Status Reason Start Date Expiration Date V isits Requested Visits Authorized [id number] Closed Specialty Service Requested 11/13/2023 05/15/2025 1 1 Encounter Details Date Type Department Care Team (Latest Contact Info) Description 11/13/2023 1:55 PM EDT - 11/13/2023 11:59 PM EDT Hospital Encounter Radiology at [facility] [place] [address] Guillermo Nice MD [facility] [place] [address] Obstructive uropathy; Bilateral hydronephrosis Discharge Disposition: Home Social History Tobacco Use Types Packs/Day Years Used Date Smoking Tobacco: Former Cigarettes Q uit: 07/04/2014 Smokeless Tobacco: Never Alcohol Use Standard Drinks/Week Comments Not Currently 0 (1 standard drink = 0.6 oz pur e alcohol) [facility] Utilities Answer Date Recorded In the past 12 months has th e electric, gas, oil, or water company threatened to shut off services in your [...] place to sleep or slept in a senior care (including now)? No 08/08/2023 DH IPV Inpatient [...] on file documented as of this encounter Last Filed Vital Signs Vital Sign Reading Time Taken Comments Blood Pressure 120/57 11/13/2023 3:30 PM EDT Pulse 74 11/13/2023 2:51 PM EDT Temperature 36.8 ??C (98.3 ??F) 11/13/2023 2:51 PM ED T Respiratory Rate 12 11/13/2023 2:51 PM EDT Oxygen Saturation 99% 11/13/2023 3:30 PM EDT Inhaled Oxygen Concentration - - Weight - - Height - - Body Mass Index - - documented in this encounter Discharge Instructions * Discharge Instructions* Leo Salcido RN - 11/13/2023 2:08 PM EDT Images from the original note were not included. [facility] Vascular and Interventional Radiology Discharge Instructions for Percutaneous Nephrostomy Tube (PCN) or Nephroureterostomy Tube (NU) You have had a PCN tube or NU tube placed because you have a blockage of urine flow between your kidney and bladder. These tubes will allow urine to drain from your kidney outside into a bag or inside into your bladder. If your tube is connected to a drainage bag it is important to empty it regularly. The PCN tube is a thin catheter placed into your kidney to drain urine. You may have one tube in a kidney or two tubes, one in each kidney. The urine collects in a bag attached to the tube. In most cases, the bag is attached to your leg. Sometimes the catheter tube has a valve that lets you drain the urine into the toilet or other container. You may need a PCN tube if you have a blockage or a hole in your urinary tract. The blockage may becaused by a kidney stone, infection, scar tissue, or a tumor. If you have only one tube, you still need to urinate. Your other kidney will still produce urine that will drain into your bladder. Having a nephrostomy tube in for a long time increases the risk of getting an infection. Nephrostomy tube care focuses on preventing infection. The (NU tube) is a one piece catheter that goes from your kidney via the ureter into the bladder. How can you care for yourself at home? Wash your hands before you handle the tubes. Clean the area around the tube with soap and water weekly. You may shower after 1 week without a bandage. You may remove the bag and connecting tubing from the drain. Put a registered dietitian on both the drain and the bag. You can shower with the bag off. Clean around the tube with soap and water. Pat dry. You can clean the bag after removing it from the tube. Use another container to collect your urine while you clean the bag. To clean the bag, fill it with 2 parts vinegar to 3 parts water, and let itstand for 20 minutes. Then empty it out, and let it air dry. Keep the drainage bag lower than your kidney to keep urine from backing up. Empty the drainage bag before it is completely full or every 2 to 3 hours. Do not swim or take baths while you have a nephrostomy tube. Change the dressing around the nephrostomy tube about every 3 days or when it gets wet or dirty. A nurse will teach you how to change it. Activity: You may be sore for several days after the tube is inserted. This may limit your activity. You should be careful to avoid activity that causes a pulling sensation, pain or kinking of the tube. When to call your healthcare provider: There may be a little blood in the urine after the tube is placed or changed. Contact your healthcare provider if the bleeding doesn???t stop in a couple of days or if the drainage becomes bright red. If urine or blood leaks around the tube, or poor drainage into the bag If the tube stops draining urine (if attached to a bag system) If skin around the tube is red or irritated or if you see any swelling or drainage around the tube. If you have shaking chills. If you have a fever equal to or greater than 101 degrees Fahrenheit (if these symptoms occur and your tube has been capped you should uncap it and connect to a drainage bag). If you have unusual pain in your flank or at the tube site. A faint urine smell is often present, but if the smell becomes strong call your healthcare provider. Decreased drainage into the bag. Tube Care: You may take a shower after 1 week. Dry the area well. Redress the drain afterwards. You may showerwith the old dressing in place and then replace after your shower. It may be easier to take a sponge bath. You may NOT take a tub bath or swim. It is important that you take care of your tube. It can be pulled out if it is caught on something.If you think the tube is partly pulled out or if it comes out completely, we can usually put it back in easily if you come to see us within 12-24 hours. It is important to keep the skin around the tube healthy. You should clean the area with soap and water a minimum of once per week. Replace the gauze dressing after you have cleaned and completely dried the skin. It is ok to change the dressing at anytime if it gets soiled. We will schedule regular tube changes for you to avoid the tube becoming blocked. You will receive these follow-up appointments in the mail (usually every 3 months). When to call the Interventional Radiology Department: Please call with any questions or concerns. If it is during regular office hours, please call [phone]. If it is after regular office hours, or on weekends or holidays, please call [phone] and ask to speak to the Braiding Machine Tender logistics solution manager for Interventional Radiology. Revised 02/11/19 documented in this encounter Medications at Time of Discharge Medication Sig Dispensed Refills Start Date End Date traMADoL 25 mg Tablet Take 25 mg by mouth as needed. lactobacillus with pectin 75 million cell -100 mg Capsule Take 1 capsule by mouth daily. 30 capsule 08/10/2023 HYDROmorphone (Dilaudid) 2 mg tablet Take 1 tablet by mouth every 6 hours as needed for Pain (As needed for breakthrough pain). 20 tablet 08/10/2023 prochlorperazine (Compazine) 10 mg tabletIndications:Pr imary malignant 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 Take 1 tablet by mouth every 6 hours as needed for Nausea. 15 tablet 05/13/2023 levothyroxine (Synthroid) 75 mcg tabletIndications:Me tastatic urothelial carcinoma Take 1 tablet by mouth daily. 30 tablet 11 02/12/2023 acetaminophen (Tylenol) 500 mg Tablet Take 1,000 mg by mouth every 8 hours as needed for Pain. senna (Senokot) 8.6 mg Tablet Take 1 tablet by mouth daily as needed for Constipation. adagrasib (Krazati) 200 mg tablet Take 400 mg by mouth daily. 11/17/2023 documented as of this encounter Progress Notes * Leo Salcido RN - 11/13/2023 3:46 PM EDT ANGIO NURSING DATABASE Name: Barb Bullard Date of : 1950 AGE: 73 y.o. [address]: [address] [place] [id number] (home) Mobile: Telephone Information: Referring Provider: Kris Aguilar REASON FOR VISIT: Order Questions Answers Where will study be performed? [facility] Radiology [120] To be scheduled Next available after expected date Reason for exam and clinical history: Chronic nephrostomy catheter in the setting of obstructive uropathy. The nephrostomy catheter was accidentally cut during dressing changes Is the patient on anticoagulant / antiplatelet therapy ? No Planned procedure: Nephrostomy exchange, left Labs to be performed day of procedure: No labs Sedation: No Sedation Prophylactic antibiotic : Cipro Contrast: Omnipaque Additional medications for procedure: Lidocaine Planned access site: existing PCN Position: Supine Consent: Pending Medications to discontinue (and days held): None Case Urgency:: G3- Elective Outpatient intervention over14 days No Known Allergies Pertinent PMH: Patient Active Problem List Diagnosis Code Metastatic urothelial carcinoma C79.10 Abnormal thyroid function test R94.6 Anemia D64.9 Bilateral hydronephrosis N13.30 Folate deficiency E53.8 Lung mass R91.8 Obstructive uropathy N13.9 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 10/23/21 Bilateral NU tube change PO: Cipro 500mg; SQ: 1% lidocaine (admin by ); Topical; 2% lidocaine jelly 04/24/2022 Bilateral PCN exchange PO: Cipro 500mg, lidocaine local 07/26/22 BL PCN exchange local only, 500mg Cipro PO 10/18/22 [place] nephrostomy tube exchange Lido jelly, cipro 500mg 12/11/22 Bilateral PCN exchange Lido jelly, Ciprofloxacin 500mg PO 02/13/23 Bilateral PCN exchange Lidojelly, Ciprofloxacin 500mg PO, Zofran 4mg PO. 04/04/23 Bilateral PCN exchange Cipro 500 mg PO, Lido jelly 04/25/23 Bilateral PCN exchange Cipro 500 mg PO, Lido jelly 06/19/2023 B/L PCN Exchange Cipro 500mg PO, Lido Jelly 2% 08/07/23 B/L PCN exchange Lido Jelly 2% (Zosyn running, PT reports she is unable to take cipro d/t treatment) 09/18/23 Bilateral PCN exchange Lido Gel 2% 10/03/23 Left PCN exchange Lido jelly 2%. Pt unable to to take cipro d/t PO chemo treatment 10/1823 Bilateral PCN exchange [id number] Lido Gel 2%. Still doing chemo treatment. 1520 to procedure room IR4 via stretcher. Onto table supine. All monitors, O2, safety strap in place. Meds per protocol. Laboratory Results: Lab Results Component Value Date CREATININE 2.03 (H) 11/03/2023 Lab Results Component Value Date K 5.0 11/03/2023 Lab Results Component Value Date PLATELET 620 (H) 11/03/2023 documented in this encounter H&P Notes * Kris Aguilar MD - 11/13/2023 2:44 PM EDT Interventional Radiology - Interval H&P Note Procedure: Bilateral nephrostomy exchange The patient's history and physical exam have been reviewed and completed. There has been no interval change from that of the pre-operative history and physical exam done within the last 30 days. Per patient preference the right nephrostomy catheter will also be exchanged at this time. The planned procedure (and sedation plan if appropriate) , its benefits and risks, and alternativeswere discussed with the patient. The patient consented to the procedure. Physical exam: Cardiovascular: Regular, Normal Pulmonary: Breath sounds clear to auscultation Abdomen: soft, nondistended, and nontender Vascular: Palpable peripheral pulses Pre-sedation assessment: Sedation plan: no sedation ASA: 2: Patient with mild systemic disease Mallampati: II: tonsillar pillars are blocked by the tongue Confirm NPO status: Yes History of anesthetic complications: No Current medications reviewed: Yes Allergies reviewed: Yes Source Note - Kris Aguilar MD - 11/13/2023 11:29 AM EDT Images from the original note were not included. INTERVENTIONAL RADIOLOGY FOCUSED H&P and PRE-PROCEDURE NOTE: PCP: Tavia Ramirez APRN Referring Provider: Dr. Nice Planned Procedure: Planned procedure: Nephrostomy exchange, left Procedure Indication: existing left nephrostomy , routine exchange Procedure Request: Procedure request received through the Interventional Radiology eDH order queue. Presenting Diagnosis/ Complaint: Barb Bullard is a 73 y.o. female with history of of obstructive uropathy secondary urothelial cancer with chronic bilateral nephrostomy catheters who presents to interventional radiology to undergo a left nephrostomy catheter exchange in the setting of the nephrostomy catheter being cut with dressing changes. Most recent exchange 10/03/2023 with 10 Azeri catheter. Past Medical/Surgical History: has no past medical history on file. has a past surgical history that includes IR Nephrostomy Tube Placement Percutaneous Bilateral (02/20/2021); IR Mediport Placement (04/02/2021); [facility] [place] Guided Sampl 3/> Node Station/Strux (85065) (N/A, 04/04/2021); Bronchoscopy, Diagnostic W Lavage (96051) (N/A, 04/04/2021); IR Nephroureteral(NU) Stent Placement Check/Change (07/13/2021); IR Nephroureteral (NU) Stent Placement Check/Change (10/23/2021); IR Nephroureteral (NU) Stent Placement Check/Change (01/18/2022); IR Nephrogram/Nephrostomy Tube Exchange Bilateral (04/24/2022); IR Nephrogram/Nephrostomy Tube Exchange Bilateral (07/26/2022); IR Nephrogram/Nephrostomy Tube Exchange Bilateral (10/18/2022); IR Nephrogram/Nephrostomy Tube Exchange Bilateral (12/11/2022); IR Nephrogram/Nephrostomy Tube Exchange Bilateral (02/13/2023); IR Nep hrogram/Nephrostomy Tube Exchange Bilateral (04/04/2023); IR Nephrogram/Nephrostomy Tube Exchange Bilateral (04/25/2023); IR Nephrogram/Nephrostomy Tube Exchange Bilateral (06/19/2023); IR Nephrogram/Ne phrostomy Tube Exchange Bilateral (07/09/2023); IR Nephrogram/Nephrostomy Tube Exchange Bilateral (08/07/2023); IR Nephrogram/Nephrostomy Tube Exchange Bilateral (09/18/2023); and IR Nephrostomy Tube Exchange Left (10/03/2023). Medications: Current Outpatient Medications Medication Instructions acetaminophen (TYLENOL) 1,000 mg, Oral, EVERY 8 HOURS PRN HYDROmorphone (DILAUDID) 2 mg, Oral, EVERY 6 HOURS PRN Krazati 400 mg, Oral, DAILY lactobacillus with pectin 75 million cell -100 mg Capsule 1 capsule, Oral, DAILY levothyroxine (SYNTHROID) 75 mcg, Oral, DAILY prochlorperazine (COMPAZINE) 10 mg, Oral, EVERY 6 HOURS PRN senna (Senokot) 8.6 mg Tablet 1 tablet, Oral, DAILY PRN traMADoL 25 mg, Oral, PRN Allergies: Patient has no known allergies. Social History and Habits: Social History Tobacco Use Smoking status: Former Current packs/day: 0.00 Types: Cigarettes Quit date: 07/04/2014 Years since quittin.3 Smokeless tobacco: Never Vaping Use Vaping status: Never Used Substance Use Topics Alcohol use: Not Currently Drug use: Never Significant Family History: family history is not on file. Pertinent ROS: as per HPI Labs: Lab Results Component Value Date WBC 9.3 11/03/2023 HCT 38.4 11/03/2023 PLATELET 620 (H) 11/03/2023 BUN 25 (H) 11/03/2023 CREATININE 2.03 (H) 11/03/2023 ALKPHOS 108 (H) 11/03/2023 AST 10 11/03/2023 ALBUMIN 4.0 11/03/2023 BILITOT 0.8 11/03/2023 ALT 7 11/03/2023 PROT 8.2 (H) 11/03/2023 K 5.0 11/03/2023 Imaging: Physical Exam: Pending (to be performed in angio the day of procedure) ASA: Pending (to be assessed in angio the day of procedure) Mallampati Class: Pending (to be assessed in angio the day of procedure) Reviewed with Attending: Dr. Nice Plan: Planned procedure: Nephrostomy exchange, left Labs to be performed day of procedure: No labs Sedation: No Sedation Prophylactic antibiotic : Cipro Contrast: Omnipaque Additional medications for procedure: Lidocaine Planned access site: existing PCN Position: Supine Consent: Pending Medications to discontinue (and days held): None Case Urgency:: G3- Elective Outpatient intervention over14 days 11/13/2023 documented in this encounter Plan of Treatment Upcoming Encounters Date Type Department Care Team (Late st Contact Info) Description 12/08/2023 3:30 PM EDT Office Visit Hematology/Oncology at [address] [address] Chase Mckay MD [facility] [place] [address] Scheduled Orders Name Type Priority Associated Diagnoses Orde r Schedule IR Nephrogram/Nephrostomy Tube Exchange Bilateral Imaging Routine Obstructive uropathy Bilateral hydronephrosis Expected: 12/25/2023, Expires: 06/25/2024 documented as of this encounter Procedures Procedure Name Priority Date/Time Associated Diagnosis Comments IR NEPHROGRAM/NEPHROST CAYLA TUBE EXCHANGE BILATERAL Routine 11/13/2023 3:54 PM EDT Obstructive uropathy documented in this encounter Results * IR Nephrogram/Nephrostomy Tube Exchange Bilateral (11/13/2023 3:54 PM EDT) Anatomical Region Laterality Modality X-Ray Angiograph y Narrative 11/13/2023 3:50 PM EDT Preoperative Diagnosis: ? Chronic indwelling nephrostomy tubes for routine change. Postoperative Diagnosis: ?? Same Procedure Performed: Over the wire exchange of nephrostomy tubes Estimated Blood Loss: None Fluoroscopy time: Please see [facility] IR technologist record for procedural dose/time Operators: Alin Dillard MD, Attending Oral Cipro was administered prior to the procedure. Anesthesia: 1. None. The patient was informed of the risks, benefits, and alternatives to the procedure and gave written consent, which was then placed in the chart. Description of Procedure: ??All elements of maximal sterile barrier technique were met including cap, mask, sterile gown, sterile gloves, large sterile sheet, hand hygiene and 2% chlorhexidine for cutaneous antisepsis. The existing lNephrostomy tubes ??were prepped and draped in the usual sterile fashion. Contrast was administered through the existing tube ??demonstrating the tube to lie within the renal collecting sytem. Using fluoroscopic guidance, the existing right nephrostomy tube was removed over a wire, and replaced with a new ??10 Fr nephrostomy tube which was positioned within the renal pelvis. Contrast was administered through the existing tube ??demonstrating the tube to lie within the renal collecting sytem. Using fluoroscopic guidance, the existing left nephrostomy tube was removed over a wire, and replaced with a new ??10 Fr nephrostomy tube which was positioned within the renal pelvis. A spot fluoroscopic image demonstrates the nephrostomy tubes to be in good position. The patient tolerated the procedure well. Impression: Uneventful over the wire exchange of nephrostomy tube as above. ??Note, pt prefers [place] ??Neph tubes due to added length I, the attending Interventional Radiologist performed the entire procedure. Guillermo Nice MD IMG IR ORDERABLES documented in this encounter Visit Diagnoses Diagnosis Obstructive uropathy Urinary obstruction, unspecified Bilateral hydronephrosis Hydronephrosis documented in this encounter Administered Medications Inactive Administered Medications - up to 3 most recent administrations Medication Order MAR Action Action Date Dose Rate Site iohexoL (Omnipaque) (350 mg/mL) solution 50 mL 50 mL, Other, ONCE PRN, 1 dose, Starting on Nicolasa 11/13/23 at 1555, Until Nicolasa 11/13/23 at 1555, Per Protocol, Warning Vesicant/Irritant Medication , Routine Given 11/13/2023 3:55 PM EDT 17 mLs lidocaine (Glydo) 2 % gel 6 mL 6 mL, Topical (Top), EVERY 4 HOURS PRN, Starting on Nicolasa 11/13/23 at 1447, Until Nicolasa 11/13/23 at 1605, Pain, For use in Interventional Radiology (IR) only for procedure with direct provider supervision and verbal order., Angio/IR (Intra-Procedure), Routine Given 11/13/2023 2:50 PM EDT 6 mLs documented in this encounter Care Teams Brass Sorter Relationship Specialty Start Date End Date Tavia Ramirez, MATERIAL CONTROL SPECIALIST [address] [place] [address] PCP - General Family Medicine 06/11/22 documented as of this encounter
--- OUTSIDE RECORDS SUMMARY | 2023-11-21 15:53 | XMS_ITS | Encounter Summary ---
Author Organization [facility] [place] [address] Care Team Providers Care Store Person Name Role Phone James Tavia Foster APRN Primary Care Provider [phone] Encounter Details Date Type Department Care Team (Latest Contact Info) Description 11/13/2023 Travel Social History Tobacco Use Types Packs/Day Years Used Date Smoking Tobacco: Former Cigarettes Q uit: 07/04/2014 Smokeless Tobacco: Never Alcohol Use Standard Drinks/Week Comments Not Currently 0 (1 standard drink = 0.6 oz pur e alcohol) [facility] Utilities Answer Date Recorded In the [...] place to sleep or slept in a long-term (including now)? No 08/08/2023 DH IPV Inpatient [...] as of this encounter Plan of Treatment Upcoming Encounters Date Type Department Care Team (Late st Contact Info) Description 12/08/2023 3:30 PM EDT Office Visit Hematology/Oncology at [address] [phone] Chase Mckay MD [facility] DR HEMATOLOGY [place] [address] documented as of this encounter Visit Diagnoses Not on filedocumented in this encounter Care Teams Store Person Relationship Specialty Start Date End Date aTvia Ramirez [place] [address] [place] [address] PCP - General Family Medicine 06/11/22 documented as of this encounter
--- OUTSIDE RECORDS SUMMARY | 2023-11-21 15:53 | XMS_ITS | Data Portability ---
Author Organization [facility], [facility] Address [address] [place] [address] Assessment No assessment recorded. Plan of Treatment Reminders Order Date Submit Date Provider Last Modified By Organization Details Last Modified Time Details Appointments Follow Up 30 2023 01:10P M TAVIA RAMIREZ Not available Not available Not available Lab urinalysi s, dipstick 2023 024 [facility], [address] [place] [address], [address], [place], [address], 07/08/2023 10:10:43 culture, urine + sensitivi ty 2023 024 [facility], [address], [place], [address], 07/09/2023 12:08:19 CBC w/ auto diff 2023 024 [facility] ([facility]), [address] [place] [address] [place], [address], 07/21/2023 14:19:36 CMP, serum or plasma 2023 024 [facility] (Registration ), [address] [place] [address] [place], [address], 07/21/2023 15:47:53 urinalysi s, dipstick 2023 024 [facility], [address], [place], [address], 08/22/2023 14:50:37 culture, urine + sensitivi ty - collected from nephrosto my tubes 2023 [facility] (Registration ), [address] [place] [address] [place], [address], 08/29/2023 07:26:00 influenza virus A + B + SARS-CoV- 2 (COVID19) Ag panel, rapid IA, upper respirato ry specimen 2023 024 [facility], [address] [place] [address], [address], [place], [address], 10/15/2023 12:22:28 rapid strep group A, throat 2023 [email or web address], [address], [place], [address], 10/15/2023 12:19:34 Referral None recorded. Procedures None recorded. Surgeries None recorded. Imaging XR, chest, 2 view - cough, lung CA patient 2023 024 [facility], [address] , [place], [address], 10/15/2023 15:19:45 Medication Orders Macrobid 100 mg capsule 2023 024 [facility], [address], [place], [address], 07/18/2023 17:09:04 Augmentin 875 mg-125 mg tablet 2023 024 [facility], [address], [place], [place], , 10/15/2023 13:52:51 azithromy alvina 250 mg tablet 2023 024 [facility], [address], [place], [address], 10/15/2023 13:52:51 Patient TargetsNo targets recorded. Patient Instructions Encounter Date Encounter Id Patient Instructions Last Modified By Organization Details Last Modified Time 07/08/2023 [id number] pt on chemo with bladder cancer, U/A c/w uti, culture sent, checked with oncology PA chose macrobid for treatment , advised to go to ER for worsening, follow up with oncology devon Not available 07/08/2023 10:12:33 07/21/2023 [id number] nice to see you today! I will call you with lab results glad you are doing better exam today is reassuring blood cultures negative from [facility] [email or web address] Not available 07/21/2023 13:19:21 08/22/2023 [id number] Nice to see you today Barb! Glad you are feeling better Your recent labs through oncology on 08/19/23 (CMP and CBC) showed your kidney function is back to baseline with creatinine at 1.74. Your white blood cell count slightly elevated. Will have you repeat CBC and CMP when you see Dr. Reyes on Friday and make sure not trending upwards and make sure kidney function stable will call you with urine culture results on Friday Ask your specialist about tramadol use in future Not available 08/22/2023 14:23:11 Reason for Referral None Reported. Results Created Date Observation Date Name Description Value Unit Range Abnormal Flag LastModifiedBy Organization Detail LastModifiedTime 06/09/19 24 06/09/2023 COMPL ETE BLOOD COUNT W/DIF F WBC 11.48 10_3/ uL 4.4-10 .8 high Not Available [address] [place], [address] 06/09/2023 12:38:48 06/09/19 24 06/09/2023 COMPL ETE BLOOD COUNT W/DIF F RBC 4.21 10_6/ uL 3.93-5 .22 normal Not Available [address] [place], [address] 06/09/2023 12:38:48 06/09/19 24 06/09/2023 COMPL ETE BLOOD COUNT W/DIF F HGB 10.3 g/dL 11.2-1 5.7 low Not Available [address] [place], [address] 06/09/2023 12:38:48 06/09/19 24 06/09/2023 COMPL ETE BLOOD COUNT W/DIF F HCT 33.4 % 36.0-4 6.0 low Not Available [address] [place] [place], [address] 06/09/2023 12:38:48 06/09/19 24 06/09/2023 COMPL ETE BLOOD COUNT W/DIF F MCV 79 fL 80-95 low Not Available [address] [place], [address] 06/09/2023 12:38:48 06/09/19 24 06/09/2023 COMPL ETE BLOOD COUNT W/DIF F MCH 24.5 pg 27.0-3 3.0 low Not Available [address] [place], [address] 06/09/2023 12:38:48 06/09/19 24 06/09/2023 COMPL ETE BLOOD COUNT W/DIF F MCHC 30.8 % 32.0-3 6.0 low Not Available [address] [place], [address] 06/09/2023 12:38:48 06/09/19 24 06/09/2023 COMPL ETE BLOOD COUNT W/DIF F RDW 17.4 % 11.7-1 4.6 high Not Available [address] [place], [address] 06/09/2023 12:38:48 06/09/19 24 06/09/2023 COMPL ETE BLOOD COUNT W/DIF F platelet count 409 10_3/ uL 130-40 0 high Not Available [address] [place] [place], [address] 06/09/2023 12:38:48 06/09/19 24 06/09/2023 COMPL ETE BLOOD COUNT W/DIF F MPV 8.4 fL 8.0-11 .0 normal Not Available [address] [place], [address] 06/09/2023 12:38:48 06/09/19 24 06/09/2023 COMPL ETE BLOOD COUNT W/DIF F neutrophils % 69.3 Not Available [address] [place], [address] 06/09/2023 12:38:48 06/09/19 24 06/09/2023 COMPL ETE BLOOD COUNT W/DIF F lymphocytes % 17.4 Not Available [address] [place], [address] 06/09/2023 12:38:48 06/09/19 24 06/09/2023 COMPL ETE BLOOD COUNT W/DIF F monocytes % 7.6 Not Available [address] [place], [address] 06/09/2023 12:38:48 06/09/19 24 06/09/2023 COMPL ETE BLOOD COUNT W/DIF F eosinophils % 4.0 Not Available [address] [place], [address] 06/09/2023 12:38:48 06/09/19 24 06/09/2023 COMPL ETE BLOOD COUNT W/DIF F basophils % 0.4 Not Available [address] [place], [address] 06/09/2023 12:38:48 06/09/19 24 06/09/2023 COMPL ETE BLOOD COUNT W/DIF F immature grans % 1.3 Not Available [address] [place], [address] 06/09/2023 12:38:48 06/09/19 24 06/09/2023 COMPL ETE BLOOD COUNT W/DIF F nucleated RBC 0.0 % 0.0-0. 3 normal Not Available [address] [place], [address] 06/09/2023 12:38:48 06/09/19 24 06/09/2023 COMPL ETE BLOOD COUNT W/DIF F absolute neutrophil count 7.96 10_3/ uL 1.2-6. 7 high Not Available [address] [place], [address] 06/09/2023 12:38:48 06/09/19 24 06/09/2023 COMPL ETE BLOOD COUNT W/DIF F absolute lymphocyte count 2.00 10_3/ uL 1.2-3. 4 normal Not Available [address] [place], [address] 06/09/2023 12:38:48 06/09/19 24 06/09/2023 COMPL ETE BLOOD COUNT W/DIF F absolute monocyte count 0.87 10_3/ uL 0.1-0. 8 high Not Available [address] [place], [address] 06/09/2023 12:38:48 06/09/19 24 06/09/2023 COMPL ETE BLOOD COUNT W/DIF F absolute eosinophil count 0.46 10_3/ uL 0.0-0. 7 normal Not Available [address] [place], [address] 06/09/2023 12:38:48 06/09/19 24 06/09/2023 COMPL ETE BLOOD COUNT W/DIF F absolute basophil count 0.05 10_3/ uL 0.0-0. 2 normal Not Available [address] [place], [address] 06/09/2023 12:38:48 06/09/19 24 06/09/2023 COMPR EHENS BEN METAB OLIC PANEL calcium 8.7 mg/dL 8.5-10 .1 normal Not Available [address] [place] [place], [address] 06/09/2023 12:54:50 06/09/19 24 06/09/2023 COMPR EHENS BEN METAB OLIC PANEL glucose 98 mg/dL 74-106 normal Not Available [facility] [address] [place], [address] 06/09/2023 12:54:50 06/09/19 24 06/09/2023 COMPR EHENS BEN METAB OLIC PANEL BUN 19 mg/dL 7-18 high Not Available [facility] [address] [place], [address] 06/09/2023 12:54:50 06/09/19 24 06/09/2023 COMPR EHENS BEN METAB OLIC PANEL creatinine 1.6 mg/dL 0.55-1 .02 high Not Available [address] [place], [address] 06/09/2023 12:54:50 06/09/19 24 06/09/2023 COMPR EHENS BEN METAB OLIC PANEL estimated GFR 34.27 mL/min /1.73m 2 Not Available [address] [place] [place], [address] 06/09/2023 12:54:50 06/09/19 24 06/09/2023 COMPR EHENS BEN METAB OLIC PANEL total protein 8.5 g/dL 6.4-8. 2 high Not Available [address] [place] [place], [address] 06/09/2023 12:54:50 06/09/19 24 06/09/2023 COMPR EHENS BEN METAB OLIC PANEL albumin 2.9 g/dL 3.4-5. 0 low Not Available [address] [place] [place], [address] 06/09/2023 12:54:50 06/09/19 24 06/09/2023 COMPR EHENS BEN METAB OLIC PANEL bilirubin, total 0.7 mg/dL 0.2-1. 0 normal Not Available [address] [place], [address] 06/09/2023 12:54:50 06/09/19 24 06/09/2023 COMPR EHENS BEN METAB OLIC PANEL alk phos 169 U/L 46-116 high Not Available [address] [place], [address] 06/09/2023 12:54:50 06/09/19 24 06/09/2023 COMPR EHENS BEN METAB OLIC PANEL sodium 139 mmol/ L 136-14 5 normal Not Available [address] [place], [address] 06/09/2023 12:54:50 06/09/19 24 06/09/2023 COMPR EHENS BEN METAB OLIC PANEL potassium 4.4 mmol/ L 3.5-5. 1 normal Not Available [address] [place], [address] 06/09/2023 12:54:50 06/09/1906/09/2023 COMPR EHENS BEN METAB OLIC PANEL chloride 105 mmol/ L 98-107 normal Not Available [address] [place] [place], [address] 06/09/2023 12:54:50 06/09/19 24 06/09/2023 COMPR EHENS BEN METAB OLIC PANEL CO2 24.8 mmol/ L 21.0-3 2.0 normal Not Available [address] [place] [place], [address] 06/09/2023 12:54:50 06/09/1906/09/2023 COMPR EHENS BEN METAB OLIC PANEL anion gap 9.2 mmol/ L 3-11 normal Not Available [address] [place], [address] 06/09/2023 12:54:50 06/09/19 24 06/09/2023 COMPR EHENS BEN METAB OLIC PANEL AST 15 U/L 15-37 normal Not Available [address] [place], [address] 06/09/2023 12:54:50 06/09/19 24 06/09/2023 COMPR EHENS BEN METAB OLIC PANEL ALT 16 U/L 14-59 normal Not Available [address] [place], [address] 06/09/2023 12:54:50 06/09/19 24 06/09/2023 MAGNE SIUM magnesium 2.2 mg/dL 1.8-2. 4 normal Not Available [address] [place], [address] 06/09/2023 12:54:51 06/23/19 24 06/23/2023 COMPL ETE BLOOD COUNT W/DIF F WBC 6.63 10_3/ uL 4.4-10 .8 normal Not Available [address] [place], [address] 06/23/2023 14:31:57 06/23/19 06/23/2023 COMPL ETE BLOOD COUNT W/DIF F RBC 4.47 10_6/ uL 3.93-5 .22 normal Not Available [address] [place], [address] 06/23/2023 14:31:57 06/23/19 24 06/23/2023 COMPL ETE BLOOD COUNT W/DIF F HGB 11.2 g/dL 11.2-1 5.7 normal Not Available [address] [place], [address] 06/23/2023 14:31:57 06/23/19 24 06/23/2023 COMPL ETE BLOOD COUNT W/DIF F HCT 35.8 % 36.0-4 6.0 low Not Available [address] [place], [address] 06/23/2023 14:31:57 06/23/19 24 06/23/2023 COMPL ETE BLOOD COUNT W/DIF F MCV 80 fL 80-95 normal Not Available [address] [place], [address] 06/23/2023 14:31:57 06/23/19 24 06/23/2023 COMPL ETE BLOOD COUNT W/DIF F MCH 25.1 pg 27.0-3 3.0 low Not Available [address] [place], [address] 06/23/2023 14:31:57 06/23/19 24 06/23/2023 COMPL ETE BLOOD COUNT W/DIF F MCHC 31.3 % 32.0-3 6.0 low Not Available [address] [place], [address] 06/23/2023 14:31:57 06/23/19 24 06/23/2023 COMPL ETE BLOOD COUNT W/DIF F RDW 16.7 % 11.7-1 4.6 high Not Available [address] [place], [address] 06/23/2023 14:31:57 06/23/19 24 06/23/2023 COMPL ETE BLOOD COUNT W/DIF F platelet count 531 10_3/ uL 130-40 0 high Not Available [address] [place], [address] 06/23/2023 14:31:57 06/23/1906/23/2023 COMPL ETE BLOOD COUNT W/DIF F MPV 8.9 fL 8.0-11 .0 normal Not Available [address] [place], [address] 06/23/2023 14:31:57 06/23/19 24 06/23/2023 COMPL ETE BLOOD COUNT W/DIF F neutrophils % 42.1 Not Available [address] [place], [address] 06/23/2023 14:31:57 06/23/1906/23/2023 COMPL ETE BLOOD COUNT W/DIF F lymphocytes % 34.5 Not Available [address] [place], [address] 06/23/2023 14:31:57 06/23/19 24 06/23/2023 COMPL ETE BLOOD COUNT W/DIF F monocytes % 14.8 Not Available [address] [place], [address] 06/23/2023 14:31:57 06/23/1906/23/2023 COMPL ETE BLOOD COUNT W/DIF F eosinophils % 7.5 Not Available [address] [place], [address] 06/23/2023 14:31:57 06/23/1906/23/2023 COMPL ETE BLOOD COUNT W/DIF F basophils % 0.8 Not Available [address] [place], [address] 06/23/2023 14:31:57 06/23/1906/23/2023 COMPL ETE BLOOD COUNT W/DIF F immature grans % 0.3 Not Available [address] [place], [address] 06/23/2023 14:31:57 06/23/19 24 06/23/2023 COMPL ETE BLOOD COUNT W/DIF F nucleated RBC 0.0 % 0.0-0. 3 normal Not Available [address] [place], [address] 06/23/2023 14:31:57 06/23/19 24 06/23/2023 COMPL ETE BLOOD COUNT W/DIF F absolute neutrophil count 2.79 10_3/ uL 1.2-6. 7 normal Not Available [address] [place], [address] 06/23/2023 14:31:57 06/23/19 24 06/23/2023 COMPL ETE BLOOD COUNT W/DIF F absolute lymphocyte count 2.29 10_3/ uL 1.2-3. 4 normal Not Available [address] [place], [address] 06/23/2023 14:31:57 06/23/19 24 06/23/2023 COMPL ETE BLOOD COUNT W/DIF F absolute monocyte count 0.98 10_3/ uL 0.1-0. 8 high Not Available [address] [place], [address] 06/23/2023 14:31:57 06/23/19 24 06/23/2023 COMPL ETE BLOOD COUNT W/DIF F absolute eosinophil count 0.50 10_3/ uL 0.0-0. 7 normal Not Available [address] [place], [address] 06/23/2023 14:31:57 06/23/19 24 06/23/2023 COMPL ETE BLOOD COUNT W/DIF F absolute basophil count 0.05 10_3/ uL 0.0-0. 2 normal Not Available [address] [place], [address] 06/23/2023 14:31:57 06/23/19 24 06/23/2023 COMPR EHENS BEN METAB OLIC PANEL calcium 8.6 mg/dL 8.5-10 .1 normal Not Available [address] [place], [address] 06/23/2023 14:50:50 06/23/19 24 06/23/2023 COMPR EHENS BEN METAB OLIC PANEL glucose 99 mg/dL 74-106 normal Not Available [address] [place], [address] 06/23/2023 14:50:50 06/23/19 24 06/23/2023 COMPR EHENS BEN METAB OLIC PANEL BUN 19 mg/dL 7-18 high Not Available [address] [place], [address] 06/23/2023 14:50:50 06/23/19 24 06/23/2023 COMPR EHENS BEN METAB OLIC PANEL creatinine 1.5 mg/dL 0.55-1 .02 high Not Available [address] [place], [address] 06/23/2023 14:50:50 06/23/19 24 06/23/2023 COMPR EHENS BEN METAB OLIC PANEL estimated GFR 37.03 mL/min /1.73m 2 Not Available [address] [place], [address] 06/23/2023 14:50:50 06/23/19 24 06/23/2023 COMPR EHENS BEN METAB OLIC PANEL total protein 8.6 g/dL 6.4-8. 2 high Not Available [address] [place], [address] 06/23/2023 14:50:50 06/23/19 24 06/23/2023 COMPR EHENS BEN METAB OLIC PANEL albumin 3.2 g/dL 3.4-5. 0 low Not Available [address] [place], [address] 06/23/2023 14:50:50 06/23/19 24 06/23/2023 COMPR EHENS BEN METAB OLIC PANEL bilirubin, total 0.5 mg/dL 0.2-1. 0 normal Not Available [address] [place], [address] 06/23/2023 14:50:50 06/23/19 24 06/23/2023 COMPR EHENS BEN METAB OLIC PANEL alk phos 126 U/L 46-116 high Not Available [address] [place], [address] 06/23/2023 14:50:50 06/23/19 24 06/23/2023 COMPR EHENS BEN METAB OLIC PANEL sodium 140 mmol/ L 136-14 5 normal Not Available [address] [place], [address] 06/23/2023 14:50:50 06/23/19 24 06/23/2023 COMPR EHENS BEN METAB OLIC PANEL potassium 4.4 mmol/ L 3.5-5. 1 normal Not Available [address] [place], [address] 06/23/2023 14:50:50 06/23/19 24 06/23/2023 COMPR EHENS BEN METAB OLIC PANEL chloride 106 mmol/ L 98-107 normal Not Available [address] [place], [address] 06/23/2023 14:50:50 06/23/19 24 06/23/2023 COMPR EHENS BEN METAB OLIC PANEL CO2 23.8 mmol/ L 21.0-3 2.0 normal Not Available [address] [place], [address] 06/23/2023 14:50:50 06/23/19 24 06/23/2023 COMPR EHENS BEN METAB OLIC PANEL anion gap 10.2 mmol/ L 3-11 normal Not Available [address] [place], [address] 06/23/2023 14:50:50 06/23/19 24 06/23/2023 COMPR EHENS BEN METAB OLIC PANEL AST 19 U/L 15-37 normal Not Available [address] [place], [address] 06/23/2023 14:50:50 06/23/19 24 06/23/2023 COMPR EHENS BEN METAB OLIC PANEL ALT 19 U/L 14-59 normal Not Available [address] [place], [address] 06/23/2023 14:50:50 06/23/19 24 06/23/2023 MAGNE SIUM magnesium 2.3 mg/dL 1.8-2. 4 normal Not Available [address] [place], [address] 06/23/2023 14:50:50 06/23/19 24 06/23/2023 MAGNE SIUM magnesium 2.3 mg/dL 1.8-2. 4 normal Not Available [address] [place], [address] 06/23/2023 16:18:10 06/23/19 24 06/23/2023 TSH TSH 2.60 uIU/m L 0.36-3 .74 normal Not Available [address] [place], [address] 06/23/2023 16:18:11 06/23/19 24 06/23/2023 FREE T4 free T4 1.00 NG/dL 0.76-1 .46 normal Not Available [address] [place], [address] 06/23/2023 16:18:11 07/08/19 24 07/08/2023 urina lysis , dipst ick Leukocytes Modera te Not Available [address] [place] [address], [phone], 07/08/2023 09:56:24 07/08/19 24 07/08/2023 urina lysis , dipst ick Nitrite positi ve Not Available [address] [place] [address], [phone], 07/08/2023 09:56:24 07/08/19 24 07/08/2023 urina lysis , dipst ick Urobilinogen .2 Not Available [facility] [place] [address], [phone], 07/08/2023 09:56:24 07/08/19 24 07/08/2023 urina lysis , dipst ick Protein 2000+ Not Available [address] [place] [address], [phone], 07/08/2023 09:56:24 07/08/19 24 07/08/2023 urina lysis , dipst ick pH 8.5 Not Available [facility] [address] [facility], [place], [address], 07/08/2023 09:56:24 07/08/19 24 07/08/2023 urina lysis , dipst ick Blood Small Not Available [facility] [address] [facility], [place], [address], 07/08/2023 09:56:24 07/08/19 24 07/08/2023 urina lysis , dipst ick Specific Hilliards 1.000 Not Available [address] [facility], [place], [address], 07/08/2023 09:56:24 07/08/19 24 07/08/2023 urina lysis , dipst ick Ketone Negati ve Not Available [address] [facility], [place], [address], 07/08/2023 09:56:24 07/08/19 24 07/08/2023 urina lysis , dipst ick Bilirubin Negati ve Not Available [address] [place] [address], [phone], 07/08/2023 09:56:24 07/08/19 24 07/08/2023 urina lysis , dipst ick Glucose Negati ve Not Available [address] [place] [address], [phone], 07/08/2023 09:56:24 07/08/19 24 07/08/2023 urina lysis , dipst ick Appearance Cloudy Not Available [address] [place] [address], [phone], 07/08/2023 09:56:24 07/08/19 24 07/08/2023 urina lysis , dipst ick Color Dark Yellow Not Available [address], [place], [address], 07/08/2023 09:56:24 07/21/19 24 07/21/2023 COMPL ETE BLOOD COUNT W/DIF F WBC 8.47 10_3/ uL 4.4-10 .8 normal Not Available [address] [place], [address] 07/21/2023 14:19:36 07/21/19 24 07/21/2023 COMPL ETE BLOOD COUNT W/DIF F RBC 4.65 10_6/ uL 3.93-5 .22 normal Not Available [address] [place], [address] 07/21/2023 14:19:36 07/21/19 24 07/21/2023 COMPL ETE BLOOD COUNT W/DIF F HGB 11.5 g/dL 11.2-1 5.7 normal Not Available [address] [place], [address] 07/21/2023 14:19:36 07/21/19 24 07/21/2023 COMPL ETE BLOOD COUNT W/DIF F HCT 37.6 % 36.0-4 6.0 normal Not Available [address] [place], [address] 07/21/2023 14:19:36 07/21/19 24 07/21/2023 COMPL ETE BLOOD COUNT W/DIF F MCV 81 fL 80-95 normal Not Available [address] [place], [address] 07/21/2023 14:19:36 07/21/19 24 07/21/2023 COMPL ETE BLOOD COUNT W/DIF F MCH 24.7 pg 27.0-3 3.0 low Not Available [address] [place], [address] 07/21/2023 14:19:36 07/21/19 24 07/21/2023 COMPL ETE BLOOD COUNT W/DIF F MCHC 30.6 % 32.0-3 6.0 low Not Available [address] [place], [address] 07/21/2023 14:19:36 07/21/19 24 07/21/2023 COMPL ETE BLOOD COUNT W/DIF F RDW 17.5 % 11.7-1 4.6 high Not Available [address] [place], [address] 07/21/2023 14:19:36 07/21/19 24 07/21/2023 COMPL ETE BLOOD COUNT W/DIF F platelet count 546 10_3/ uL 130-40 0 high Not Available [address] [place], [address] 07/21/2023 14:19:36 07/21/19 24 07/21/2023 COMPL ETE BLOOD COUNT W/DIF F MPV 9.5 fL 8.0-11 .0 normal Not Available [address] [place], [address] 07/21/2023 14:19:36 07/21/19 24 07/21/2023 COMPL ETE BLOOD COUNT W/DIF F neutrophils % 60.9 Not Available [address] [place], [address] 07/21/2023 14:19:36 07/21/19 24 07/21/2023 COMPL ETE BLOOD COUNT W/DIF F lymphocytes % 22.4 Not Available [address] [place], [address] 07/21/2023 14:19:36 07/21/19 24 07/21/2023 COMPL ETE BLOOD COUNT W/DIF F monocytes % 11.9 Not Available Stefania gonz[address]les[address] [place], [address] 07/21/2023 14:19:36 07/21/19 24 07/21/2023 COMPL ETE BLOOD COUNT W/DIF F eosinophils % 3.7 Not Available [address] [place], [address] 07/21/2023 14:19:36 07/21/19 24 07/21/2023 COMPL ETE BLOOD COUNT W/DIF F basophils % 0.7 Not Available Bernamarybel eliecerjeannie [address] [place], [address] 07/21/2023 14:19:36 07/21/19 24 07/21/2023 COMPL ETE BLOOD COUNT W/DIF F immature grans % 0.4 Not Available [address] [place], [address] 07/21/2023 14:19:36 07/21/19 24 07/21/2023 COMPL ETE BLOOD COUNT W/DIF F nucleated RBC 0.0 % 0.0-0. 3 normal Not Available [address] [place], [address] 07/21/2023 14:19:36 07/21/19 24 07/21/2023 COMPL ETE BLOOD COUNT W/DIF F absolute neutrophil count 5.16 10_3/ uL 1.2-6. 7 normal Not Available [address] [place], [address] 07/21/2023 14:19:36 07/21/19 24 07/21/2023 COMPL ETE BLOOD COUNT W/DIF F absolute lymphocyte count 1.90 10_3/ uL 1.2-3. 4 normal Not Available [address] [place], [address] 07/21/2023 14:19:36 07/21/19 24 07/21/2023 COMPL ETE BLOOD COUNT W/DIF F absolute monocyte count 1.01 10_3/ uL 0.1-0. 8 high Not Available [address] [place], [address] 07/21/2023 14:19:36 07/21/19 24 07/21/2023 COMPL ETE BLOOD COUNT W/DIF F absolute eosinophil count 0.31 10_3/ uL 0.0-0. 7 normal Not Available [address] [place], [address] 07/21/2023 14:19:36 07/21/19 24 07/21/2023 COMPL ETE BLOOD COUNT W/DIF F absolute basophil count 0.06 10_3/ uL 0.0-0. 2 normal Not Available [address] [place], [address] 07/21/2023 14:19:36 07/21/1907/21/2023 COMPR EHENS BEN METAB OLIC PANEL calcium 8.3 mg/dL 8.5-10 .1 low Not Available [address] [place], [address] 07/21/2023 15:47:53 07/21/19 24 07/21/2023 COMPR EHENS BEN METAB OLIC PANEL glucose 104 mg/dL 74-106 normal Not Available [address] [place], [address] 07/21/2023 15:47:53 07/21/19 24 07/21/2023 COMPR EHENS BEN METAB OLIC PANEL BUN 30 mg/dL 7-18 high Not Available [address] [place], [address] 07/21/2023 15:47:53 07/21/19 24 07/21/2023 COMPR EHENS BEN METAB OLIC PANEL creatinine 1.8 mg/dL 0.55-1 .02 high Not Available [address] [place], [address] 07/21/2023 15:47:53 07/21/19 24 07/21/2023 COMPR EHENS BEN METAB OLIC PANEL estimated GFR 29.57 mL/min /1.73m 2 Not Available [address] [place], [address] 07/21/2023 15:47:53 07/21/19 24 07/21/2023 COMPR EHENS BEN METAB OLIC PANEL total protein 8.4 g/dL 6.4-8. 2 high Not Available [address] [place], [address] 07/21/2023 15:47:53 07/21/19 24 07/21/2023 COMPR EHENS BEN METAB OLIC PANEL albumin 3.2 g/dL 3.4-5. 0 low Not Available [address] [place] [place], [address] 07/21/2023 15:47:53 07/21/19 24 07/21/2023 COMPR EHENS BEN METAB OLIC PANEL bilirubin, total 0.7 mg/dL 0.2-1. 0 normal Not Available [address] [place], [address] 07/21/2023 15:47:53 07/21/19 24 07/21/2023 COMPR EHENS BEN METAB OLIC PANEL alk phos 102 U/L 46-116 normal Not Available [address] [place], [address] 07/21/2023 15:47:53 07/21/19 24 07/21/2023 COMPR EHENS BEN METAB OLIC PANEL sodium 139 mmol/ L 136-14 5 normal Not Available [address] [place], [address] 07/21/2023 15:47:53 07/21/19 24 07/21/2023 COMPR EHENS BEN METAB OLIC PANEL potassium 4.3 mmol/ L 3.5-5. 1 normal Not Available [address] [place] [place], [address] 07/21/2023 15:47:53 07/21/19 24 07/21/2023 COMPR EHENS BEN METAB OLIC PANEL chloride 107 mmol/ L 98-107 normal Not Available [address] [place], [address] 07/21/2023 15:47:53 07/21/19 24 07/21/2023 COMPR EHENS BEN METAB OLIC PANEL CO2 21.9 mmol/ L 21.0-3 2.0 normal Not Available [address] [place] [place], [address] 07/21/2023 15:47:53 07/21/19 24 07/21/2023 COMPR EHENS BEN METAB OLIC PANEL anion gap 10.1 mmol/ L 3-11 normal Not Available [address] [place] [place], [address] 07/21/2023 15:47:53 07/21/19 24 07/21/2023 COMPR EHENS BEN METAB OLIC PANEL AST 23 U/L 15-37 normal Not Available [address] [place], [address] 07/21/2023 15:47:53 07/21/19 24 07/21/2023 COMPR EHENS BEN METAB OLIC PANEL ALT 20 U/L 14-59 normal Not Available [address] [place], [address] 07/21/2023 15:47:53 07/21/19 24 07/21/2023 MAGNE SIUM magnesium 2.2 mg/dL 1.8-2. 4 normal Not Available [address] [place], [address] 07/21/2023 15:47:53 07/21/19 24 07/21/2023 TSH TSH 2.76 uIU/m L 0.36-3 .74 normal Not Available [address] [place], [address] 07/21/2023 15:47:54 07/21/19 24 07/21/2023 FREE T4 free T4 0.80 NG/dL 0.76-1 .46 normal Not Available [address] [place], [address] 07/21/2023 15:47:54 08/22/19 24 08/24/2023 URINE CULTU RE urine culture Not Available [address] [place], [address] 08/24/2023 08:02:44 08/22/19 24 08/25/2023 URINE CULTU RE urine culture Not Available [address] [place], [address] 08/25/2023 08:22:11 08/22/19 24 08/22/2023 urina lysis , dipst ick Leukocytes Small Not Available [facility] [address], [place], [address], 08/22/2023 13:40:18 08/22/19 24 08/22/2023 urina lysis , dipst ick Nitrite negati ve Not Available [facility] [address], [place], [address], 08/22/2023 13:40:18 08/22/19 24 08/22/2023 urina lysis , dipst ick Urobilinogen .2 Not Available [facility] [address], [place], [address], 08/22/2023 13:40:18 08/22/19 24 08/22/2023 urina lysis , dipst ick Protein 2000+ Not Available [facility] [address], [place], [address], 08/22/2023 13:40:18 08/22/19 24 08/22/2023 urina lysis , dipst ick pH 5.0 Not Available [facility] [address], [place], [address], 08/22/2023 13:40:18 08/22/19 24 08/22/2023 urina lysis , dipst ick Blood Large Not Available [facility] [address], [place], [address], 08/22/2023 13:40:18 08/22/19 24 08/22/2023 urina lysis , dipst ick Specific Hilliards 1.025 Not Available [facility] [address], [place], [address], 08/22/2023 13:40:18 08/22/19 24 08/22/2023 urina lysis , dipst ick Ketone Negati ve Not Available [facility] [address], [place], [address], 08/22/2023 13:40:18 08/22/19 24 08/22/2023 urina lysis , dipst ick Bilirubin Negati ve Not Available [facility] [address], [place], [address], 08/22/2023 13:40:18 08/22/19 24 08/22/2023 urina lysis , dipst ick Glucose Negati ve Not Available [facility] [address], [place], [address], 08/22/2023 13:40:18 08/22/19 24 08/22/2023 urina lysis , dipst ick Appearance Cloudy Not Available [facility] [address], [place], [address], 08/22/2023 13:40:18 08/22/19 24 08/22/2023 urina lysis , dipst ick Color Dark Yellow Not Available [facility] [address], [place], [address], 08/22/2023 13:40:18 10/15/19 24 10/15/2023 rapid strep group A, throa t Strep negati ve Not Available [address] [place] [address], [address], 10/15/2023 11:57:54 10/15/19 24 10/15/2023 influ danielle virus A + B + SARS- CoV-2 (COVI D19) Ag panel , rapid IA, upper respi rator y speci men Influenza A negati ve Not Available [address] [place] [address], [address], 10/15/2023 11:57:46 10/15/19 24 10/15/2023 influ danielle virus A + B + SARS- CoV-2 (COVI D19) Ag panel , rapid IA, upper respi rator y speci men Influenza B negati ve Not Available [address] [place] [address], [address], 10/15/2023 11:57:46 10/15/19 24 10/15/2023 influ danielle virus A + B + SARS- CoV-2 (COVI D19) Ag panel , rapid IA, upper respi rator y speci men SARS-COV-2 negati ve Not Available [facility] [address], [place], [address], 10/15/2023 11:57:46 10/15/19 24 10/15/2023 XR, chest , 2 view ABNORM AL FINDIN G PROCED URE INFORM ATION: Exam: XR Chest Exam date and time: 024 12:59 PM Age: 73 years old Clinic al indica tion: Cough TECHNI QUE: Imagin g protoc ol: Radiol ogic exam of the chest. Views: 2 views. COMPAR ALLISON: CR XR CHEST 1 VW 2021 19:29 FINDIN GS: Tubes, cathet ers and device s: Tubing overly ing the mid abdome n. Right IJ centra l cathet er in place. Lungs: Coarse increa sed parenc hymal lung markin gs simila r to prior study. Emphys ematou s lung diseas e. Bilate ral peribr onchia l thicke amelie. Left lower lobe consol idatio n. Pleura l spaces : Blunti ng of the latera l costop hrenic angles . Biapic al pleura l thicke amelie. Blunte d latera l and concession manager ior costop hrenic angles . Heart/ Medias tinum: Unrema rkable . No cardio megaly . Bones/ joints : Degene rative scolio tic change s of the spine. IMPRES SAGE: 1. Left lower lobe infilt rate. 2. Blunte d costop hrenic angles may repres ent pleura l effusi ons versus parenc hymal scar. 3. Combin ed pulmon kenzie fibros is and emphys ematou s lung diseas e. Report signed by: Flo moreira On 2023 15:18: 17 [facility] [address], [place], [address], 10/15/2023 15:30:01 Result Notes None recorded. Problems Name Status Onset Date Resolution Date Notes Provider Name and Address Organization Details Recorded Time Acute kidney injury Active [address], [place], [address] , [facility] 4 13:26:07 Malignant neoplasm of urinary organ Active 2020 metastatic bladder cancer diagnosed in 2020 with renal failure status post bilateral nephrostomy tubes present. [address], [place], [address] , [facility] 4 13:41:31 Abdominal pain Completed 202209/14/2022 Problem Code: R10.9; Problem Code Type: ICD-10; Not Available [facility] 05:59:25 Counseling Completed 202209/14/2022 08/15/2022 - Comments only - Tavia Ramirez [employer] - now established on my panel. will follow up as needed. has multiple specialists following her and want to decrease need for further health appointments unless necessary for her to come in. Problem Code: Z71.89; Problem Code Type: ICD-10; Not Available [facility] 05:59:25 Urostomy present Active 2022 PHIL delacruz, [facility] 13:42:16 Pneumonia Completed 202106/10/2022 Problem Code: J18.9; Problem Code Type: ICD-10; Not Available [facility] 05:59:25 Total nephrectomy Completed 202201/22/2023 Problem Code: Z90.5; Problem Code Type: ICD-10; Not Available [facility] 3 05:59:25 Malignant neoplasm of urinary bladder Completed 202006/10/2022 Problem Code: C67.9; Problem Code Type: ICD-10; Not Available [facility] 3 05:59:26 Blood in urine Completed 202208/15/2022 Problem Code: R31.9; Problem Code Type: ICD-10; Not Available [facility] 3 05:59:26 Disorder of lung Completed 202001/22/2023 Problem Code: J98.4; Problem Code Type: ICD-10; Not Available [facility] 3 05:59:26 Leukocytosis Active [address], [facility] [address] , [facility] 4 13:26:05 Pyelonephriti s Active [address], [facility] [address] [place] [address] 4 13:26:03 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 Started on pembrolizumab in March 2021. [address], [facility] [address] , [facility] 4 13:41:59 Acute urinary tract infection Active [address], [facility] [address] , [facility] 4 13:40:42 Abnormal urine odor Active [address], [facility] [address] , [facility] 4 13:41:08 Notes:*Problem Name: Primary adenocarcinoma of lung, stage 3 left *Problem Status: active *Comments: *Problem Code: C34.90 *Problem Code Type: ICD-10 *Note Date: 03/02/2021 Problem Notes None recorded. Procedures Surgical History None recorded. Imaging Results Imaging Date Name Status LastModified by Organiz ation Details LastModified Time 10/15/2023 XR, chest, 2 view completed [email or web address], [place], [address], 10/15/2023 15:30:01 Procedure Notes None recorded. Medical Equipment None Reported. Allergies No known drug allergies Medications Name Sig Start Date Stop Date Status Note LastModified by Organization Details LastModified Time Miralax 17 gram/dose oral powder Take 1 teaspoon dissolve d in water three times a day 06/10 completed Not Available Not Available Not Available azithromy alvina 250 mg tablet TAKE 2 TABLETS BY MOUTH ONE DOSE ON DAY 1, THEN 1 TABLET DAILY ON DAYS 2-5 active Not Available Not Available No t Available sulfameth oxazole 400 mg-trimet hoprim 80 mg tablet TAKE ONE TABLET BY MOUTH TWICE A DAY 07/20 completed Not Available Not Available Not Available prochlorp erazine maleate 10 mg tablet TAKE ONE TABLET BY MOUTH EVERY 6 HOURS NEEDED active Not Available Not Available No t Available tramadol 50 mg tablet TAKE ONE TABLET BY MOUTH EVERY DAY NEEDED FOR PAIN active HELD BY [facility], GIVEN DILAUDID PO if needed. hasn;t taken. taking tyleonl Not Available Not Available Not Available levothyro xine 75 mcg tablet TAKE ONE TABLET BY MOUTH EVERY DAY active Not Available Not Available No t Available Macrobid 100 mg capsule Take 1 capsule every 12 hours by oral route for 10 days. 07/17 completed Not Available Not Available Not Available hydromorp vale 2 mg tablet TAKE ONE TABLET BY MOUTH EVERY 6 HOURS NEEDED FOR BREAKTHR OUGH PAIN 08/21 completed Not Available Not Available Not Available Lasix 20 mg tablet Take 1 tablet by mouth once a day with meals take for 30 days 06/10 completed Not Available Not Available Not Available Cipro 500 mg tablet Take 1 tablet by mouth twice a day 08/28 completed Not Available Not Available Not Available Tegaderm Transpare nt Dressing 2 07/03 X 2 06/29 1628 10 packs per month z90.5 2022 active Not Available Not Available Not Avai lable amoxicill in 875 mg-potass ium clavulana te 125 mg tablet TAKE ONE TABLET BY MOUTH EVERY 12 HOURS FOR 7 DAYS active Not Available Not Available No t Available amoxicill in 500 mg-potass ium clavulana te 125 mg tablet TAKE ONE TABLET BY MOUTH EVERY 12 HOURS 08/19 completed Not Available Not Available Not Available pembroliz umab 07/07 completed Per [facility] Not Available Not Available Not Available Keytruda 25 mg/mL intraveno us solution Infuse every 3 weeks through [facility] up here 07/07 completed Not Available Not Available Not Available Krazati 200 mg tablet Take 2 tablets every day by oral route. active Not Available Not Available No t Available Vitals Date Recorded Body height Respiratory rate Body mass index (BMI) Body weight Body temperature Oxygen saturation Oxygen saturation in Arterial blood by Pulse oximetry Heart rate Systolic blood pressure Diastolic blood pressure Provider Name and Address Organization Details Last Updated DateTime 4 165.1 cm 18 /min 26 kg/m2 78538.8 1 g 97.6 [degF] 96 % 96 % 100 /min 106 mm[Hg] 64 mm[Hg] Eneida Washburn MA [facility] 4 09:43:08 Date Recorded Body height Body mass index (BMI) Body weight Body temperature Heart rate Respiratory rate Systolic blood pressure Diastolic blood pressure Provider Name and Address Organization Details Last Updated DateTime 4 165.1 cm 25.9 kg/m2 84128.9 7 g 99.1 [degF] 86 /min 20 /min 108 mm[Hg] 66 mm[Hg] RUSS SANCHEZ RN [facility] 4 12:53:58 Date Recorded Body height Body mass index (BMI) Body weight Body temperature Heart rate Respiratory rate Systolic blood pressure Diastolic blood pressure Provider Name and Address Organization Details Last Updated DateTime 4 165.1 cm 25.6 kg/m2 72892.2 2 g 98.2 [degF] 84 /min 18 /min 114 mm[Hg] 62 mm[Hg] RUSS SANCHEZ RN [facility], [facility] 4 13:32:05 Date Recorded Body height Body mass index (BMI) Body weight Body temperature Oxygen saturation Oxygen saturation in Arterial blood by Pulse oximetry Heart rate Systolic blood pressure Diastolic blood pressure Provider Name and Address Organization Details Last Updated DateTime 4 165.1 cm 25.6 kg/m2 69188.2 2 g 98.6 [degF] 96 % 96 % 95 /min 120 mm[Hg] 66 mm[Hg] CONRAD Noriega MA [facility] 4 11:56:52 Date Recorded Body height Body mass index (BMI) Body weight Body temperature Respiratory rate Heart rate Systolic blood pressure Diastolic blood pressure Provider Name and Address Organization Details Last Updated DateTime 4 165.1 cm 25.1 kg/m2 00672.4 5 g 97.8 [degF] 16 /min 70 /min 102 mm[Hg] 64 mm[Hg] RUSS SANCHEZ RN [facility] 4 13:21:26 Social History Question Answer Notes LastModified by Organizat ion Details LastModified Time Tobacco Smoking Status Former Smoker Quit 2014 RUSS SANCHEZ RN [facility], [facility] 07/21/2023 12:51:45 When Did You Quit Smoking? 6-10yearssi [email or web address] Information not available 07/21/2023 What Was The Date Of Your Most Recent Tobacco Screening? 11/21/2023 Information not available 11/21/2023 At What Age Did You Start Smoking Tobacco? 18 Information not available 07/21/2023 How Much Tobacco Do You Smoke? No Information not available 07/21/2023 Has Tobacco Cessation Counseling Been Provided? No [email or web address] Information not available 07/08/2023 Do You Or Have You Ever Used Any Other Forms Of Tobacco Or Nicotine? No [email or web address] Information not available 07/08/2023 Sex: Female Functional Status None recorded. Mental Status None recorded. Family History Relationship Description Onset Age of this Age Resolved Age Notes Brother Family history of di abetes mellitus Brother Family history of malignant neoplasm Brother Family history of ki dney disease Father Family history of Hypertension Father Family history of asthma Mother Family history of Hypertension Mother Family history of Respiratory disease Mother Family history of malignant neoplasm Sister Family history of Respiratory disease Medical History No medical history recorded. Gynecological HistoryNo gynecological history recorded. Obstetrics History GPAL:G 0 P 0 0 0 0 Immunizations Vaccine Type Date Status Provider Name and Address Organization Details Recorded Time COVID-19, mRNA, LNP-S, PF, 100 mcg/0.5mL dose or 50 mcg/0.25mL dose 03/02/2021 completed Not Available [facility] 03/07/2023 06:13:54 Past Encounters Encounter ID Performer Location Encounter Start Date Encounter Closed Date Diagnosis/Indication Diagnosis SNOMED-CT Code [id number] Can Brennan MD [address] [place] [address] 07/08/2023 09:21:32 07/08/2023 10:10:44 Acute urinary tract infection 501556988 [id number] [address] [place] [address] 07/21/2023 12:38:14 07/21/2023 13:24:40 Leukocytosis 119829830 Pyelonephritis 20970411 Acute kidney injury 1466 9001 [id number] TAVIA RAMIREZ [address] [place] [address] 08/22/2023 13:12:54 08/22/2023 14:07:29 Acute urinary tract infection 185397796 Malignant neoplasm of urinary organ 118292366 Pyelonephritis 70401129 [id number] TAVIA MAGUIRE PA-C [facility] [address] [place] [address] 10/15/2023 11:37:25 10/15/2023 12:19:17 Cough 48256504 [id number] TAVIA RAMIREZ [address] [place] [address] 11/21/2023 12:53:58 11/21/2023 14:03:58 Abnormal urine odor 0230389 Urostomy present 5156664 04 Malignant neoplasm of urinary organ 238352834 Health Concerns Section Related Observation LastModified by Organization Detai ls LastModified Time None Recorded Concern Status LastModified by Organization Details LastModified Time None Recorded Advance Directives Directive None Recorded Payers Encounter Date Sequence Insurance Name Policy Number Policy Issa Covered Member ID Issa Member ID Guarantor Name 07/08/2023 1 [place] [facility] Barb Bullard [id number] 1 Barb Bullard 07/21/2023 1 [place] [facility] Barb Bullard [id number] 1 Barb Bullard 08/22/2023 1 [place] [facility] Barb Bullard [id number] 1 Barb Bullard 10/15/2023 1 [place] [facility] Barb Bullard [id number] 1 Barb Bullard Notes Date Note Type Note Provider Name and Address Organization Details Recorded Time 07/08/2023 text/html HPI Notes: Pt wi th bilateral nephrostomies for bladder cancer on chemo with cloudy urine and mild back discomfort, no vomiting or fevers/chills. Can Brennan MD [address], [place], [address], [facility] 07/08/2023 10:21:42 07/21/2023 text/html HPI Notes: Barb is a pleasant 73-year-old female here today for hospital discharge follow-up. She was seen at [facility] emergency room on 07/09/2023 and discharged 07/10/2023. Presented initially with bilateral back pain at urgent care on 07/08/2023 and diagnosed with UTI based on urinalysis in office. Was started on Macrobid after interaction check with oncology for current treatment of metastatic bladder cancer and lung cancer through hematology oncology [facility]. unfortunately woke up on 07/09/2023 and her bilateral nephrostomy tubes were not draining. Mainly noticed the right 1 was clogged. History of obstructive renal failure in 2020 requiring bilateral percutaneous nephrostomy tubes. Throughout her workup she was then diagnosed with metastatic bladder cancer. Also was found to have left lower lobe lung mass. Pt discharged from [facility] 07/09 after bilateral nephrostomy tube replacements due to ?obstruction and pyleonephritis. admit date was 07/08/23 at [facility]. Was started on Bactrim and bilateral percutaneous nephrostomy tubes Replaced at [facility]. She was advised to follow-up with PCP office within 10-day period. Reports that she no longer has fever or chills. Back pain has improved. Urine is clear in bilateral nephrostomy tube bags. She is wondering what her blood cultures showed at [facility] she never got a call from them. Her last CBC at [facility] showed white cell count 12.1 as well as acute kidney injury with creatinine elevated at 1.85. Plan was to repeat labs today. She reports she is getting a blood draw for her oncologist anyway over [facility] if I could send the orders over there they could coordinate blood draw. [address], [place], [address], [facility]. 07/21/2023 13:43:25 08/22/2023 text/html HPI Notes: Barb is a pleasant 73-year-old female here today for a hospital discharge follow-up. Follow up [facility] admitted 08/06 - 08/09 - acute kidney injury/pyelonephrit is. Nephrostomy tubes clogged again (same as in June per patient, thinks they never truly cleared). Given ABX; need urine today (says she just had bloodwork done on Friday by [facility] oncology - will check orders/results) [facility] put tramadol on hold, pt was given PO Dilaudid x5 days, she says she has been fine with Tylenol for pain so is not using the Dilaudid. Feeling much better, more energy no fever/chills, no malaise [address], [place], [address], [facility], [facility]. 10/09/2023 20:19:46 10/15/2023 text/html HPI Notes: Maurizio ta is a 73-year-old female significant past medical history of metastatic bladder cancer and left lobe lung Adenocarcinoma presenting for cold symptoms. Started to feel unwell on 10/11, initially had a sore throat, sore throat is now better but feels like the cold is settling into her chest. Reports productive cough with increased work of breathing. She denies any wheezing chest pain or significant shortness of breath. She denies nausea or vomiting. She did have a fever on Friday night of 100. Since then has been afebrile. Denies any chills. She is currently in chemotherapy next PET scan is scheduled for early next month. She denies ear pain headache or sinus pain. TAVIA MAGUIRE PA-C [address], [place], [address], [facility]. 10/15/2023 13:53:14 OBGyn Episode No OBEpisode recorded.
--- OUTSIDE RECORDS SUMMARY | 2023-11-21 15:53 | XMS_ITS | Encounter Summary ---
Author Organization [facility] Address [facility] [place] [address] Care Team Providers Care Grounding Engineer Name Role Phone JamesTavia ALESSANDRO Primary Care Provider [phone] Encounter Details Date Type Department Care Team (Late st Contact Info) Description 11/13/2023 [place] [phone] Kris Aguilar MD [facility] [place] [address] Obstructive uropathy Social History Tobacco Use Types Packs/Day Years Used Date Smoking Tobacco: Former Cigarettes Q uit: 07/04/2014 Smokeless Tobacco: Never Alcohol Use Standard Drinks/Week Comments Not Currently 0 (1 standard drink = 0.6 oz pur e alcohol) [facility] Utilities Answer Date Recorded In the past 12 months has th e electric, gas, oil, or water [employer] threatened to shut off services in your [...] place to sleep or slept in a residential (including now)? No 08/08/2023 DH IPV Inpatient [...] on file documented as of this encounter H&P Notes * Kris Aguilar MD - 11/13/2023 11:29 AM [...] changes. Most recent exchange 10/03/2023 with 10 Canadian catheter. Past Medical/Surgical History: has no past medical history on file. has a past surgical history that includes IR Nephrostomy Tube Placement Percutaneous Bilateral (02/20/2021); IR Mediport Placement (04/02/2021); [facility] Guided Sampl 3/> Node Station/Strux (40810) (N/A, 04/04/2021); Bronchoscopy, Diagnostic W Lavage (77378) (N/A, 04/04/2021); IR Nephroureteral(NU) Stent Placement Check/Change [...] 3:30 PM EDT Office Visit Hematology/Oncology at [address] [phone] Chase Mckay MD [facility] DR HEMATOLOGY [place] [address] documented as of this encounter Visit Diagnoses Diagnosis Obstructive uropathy Urinary obstruction, unspecified documented in this encounter Care Teams Grounding Engineer Relationship Specialty Start Date End Date Tavia Ramirez, TELEGRAPH LINEMAN [facility] [place] [address] PCP - General Family Medicine 06/11/22 documented as of this encounter
--- OUTSIDE RECORDS SUMMARY | 2023-11-21 15:53 | XMS_ITS | Encounter Summary ---
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 No 08/08/2023 DH IPV Inpatient [...] on file documented as of this encounter Medications at Time of Discharge [...] daily. 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 HC VENIPUNCTURE Routine 11/03/2023 11:27 AM EDT 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 COMPREHENSIVE METABOLIC PANEL (NON-FASTING) Routine 11/03/2023 11:27 AM EDT 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 documented in this encounter Results * (ABNORMAL) Differential, Automated (11/03/2023 11:27 AM EDT) Neutrophils % 68.6 % [facility] Neutr Abs (ANC) 6.40(H) 1.70 - 6.10 x10(3)/mc L [facility] Lymphocytes % 15.8 % [facility] Lymphocytes Abs 1.5 0.9 - 3.2 x10(3)/mc L [facility] Monocytes % 8.5 % [facility] Monocyte Abs 0.8 0.3 - 0.9 x10(3)/mc L [facility] Eosinophils % 5.8 % [facility] Eosinophils Abs 0.5(H) 0.0 - 0.4 x10(3)/mc L [facility] Basophils % 0.6 % [facility] Basophils Abs 0.1 0.0 - 0.1 x10(3)/ L [facility] Immature Gran % 0.70 % [facility] Comment: Immature granulocytes(IG's)percentage and absolute count will include metamyelocytes, myelocytes, and promyelocytes. Blood smears from CBCs yielding IG's will be scanned manually for concordance. If this scan disagrees with the automated IG or if promyelocytes are noted, a manual differential will be performed. [place] Gran Abs 0.07(H) 0.00 - 0.04 x10(3)/[facility] Blood 11/03/2023 11:2 7 AM EDT 11/03/2023 11:57 AM EDT Narrative Resulting Agency Comment Spec In Lab Dianne Jacob APRN HEMATOLOGY ORDER SYDNEY [facility] [place] [address] * (ABNORMAL) Hemogram (11/03/2023 11:27 AM EDT) WBC 9.3 4.0 - 9.5 x10(3)/[facility] RBC 5.08 4.00 - 5.21 x10(6)/[facility] Hemoglobin 12.1 11.7 - 15.5 g/dL [facility] Hematocrit 38.4 35.7 - 45.8 % [facility] MCV 75.6(L) 82.6 - 94.4 fL [facility] MCH 23.8(L) 27.1 - 32.0 pg [facility] MCHC 31.5(L) 31.7 - 35.0 g/dL [facility] Platelets 620(H) 145 - 357 x10(3)/[facility] RDWSD 43.8 37.0 - 46.0 fL [facility] RDWCV 16.3(H) 11.5 - 14.1 % [facility] MPV 9.8 7.6 - 12.9 fL [facility] nRBC % Auto 0.0 % [facility] nRBC Abs Auto 0.000 0.000 - 0.000 x10(3)/mcL [facility] Blood 11/03/2023 11:2 7 AM EDT 11/03/2023 11:57 AM EDT Narrative Resulting Agency Comment Spec In Lab Dianne A Fernandotrini REGISTERED NURSE OBSTETRICS HEMATOLOGY ORDER SYDNEY [facility] [place] [address] * (ABNORMAL) Comprehensive metabolic panel (non-fasting) (11/03/2023 11:27 AM EDT) Glucose Lvl 99 65 - 199 mg/dL [facility] Comment:Diabetes: >=200 mg/d L plus symptoms BUN 25(H) 8 - 18 mg/dL [facility] Creatinine 2.03(H) 0.70 - 1.20 mg/dL [facility] Sodium 139 135 - 145 mmol/L [facility] Potassium 5.0 3.5 - 5.0 mmol/L [facility] Comment: Please note: ??Patients with WBC >100,000 may have falsely elevated Potassium levels. ??For accurate Potassium quantification in these patients send serum separator tube (gold top) for subsequent determinations. ??Contact the Clinical Chemistry Laboratory if there are any questions. Chloride 109(H) 98 - 107 mmol/L [facility] CO2 20(L) 22 - 31 mmol/L [facility] Anion Gap 10 5 - 15 mmol/L [facility] Calcium 9.4 8.5 - 10.5 mg/dL [facility] Total Protein 8.2(H) 6.1 - 8.0 g/dL [facility] Albumin 4.0 3.2 - 5.2 g/dL [facility] AST 10 0 - 30 unit/L [facility] ALT 7 0 - 30 unit/L [facility] Alk Phos 108(H) 35 - 105 unit/L [facility] Total Bilirubin 0.8 0.2 - 1.3 mg/dL [facility] Estimated GFR 26(L) >=60 mL/min/1. 73 m?? [facility] Comment: This patient's estimated GFR was calculated using the 2020 CKD-EPI equation. The estimated GFR can vary from the measured GFR by up to 30% in the absence of rapidly changing kidney function. Assessment of the estimated GFR is not appropriate when creatinine concentrations are rapidly changing. For clinical situations in which a more precise estimate of GFR is necessary, consider alternative methods of GFR estimation such as a 24-hour urine creatinine clearance. Assignment of CKD stage 1-5 for patients with an eGFR near the transition point between stages may be based on clinical assessment of muscle mass and symptoms in addition to eGFR. 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
--- OUTSIDE RECORDS SUMMARY | 2023-11-21 15:53 | XMS_ITS | Encounter Summary ---
Author Organization [facility] Address [address] [place] [address] Care Team Providers Care Manager Scientific Name Role Phone Unknown, Provider Primary Care Provider [phone] Encounter Details Date Type Department Care Team (Late st Contact Info) Description 03/03/2021 Lab Requisition [facility] Pathology & Laboratory Medicine - [facility] [address], [place] [phone] Outr Resulting Lab, Provider Social History Tobacco [...] Procedure Name Priority Date/Time Associated Diagnosis Comments HIV 1/2 ANTIGEN AND ANTIBODY, 4TH GENERATION Routine 03/02/2021 14:00 EDT documented in this encounter Results * HIV 1/2 ANTIGEN AND ANTIBODY, 4TH GENERATION (03/02/2021 14:00 EDT) HIV 1 and 2 Antibody/p24 Antigen, 4th Generation Negative Negative 03/05/2021 11:05 EST [facility] Comment:If acute HIV-1 infec tion is suspected in a high risk patient, submit plasma specimen for HIV-1 RNA quantitation test. Blood VENOUS BLOOD / Unknown 03/02/2021 14:00 EDT 03/04/2021 16:56 EST Narrative [facility] - 03/05/2021 11:05 EST Fourth Generation assay performed on the Siemens Syscoraur XPT. Provider Outr Resulting Lab IMMUNOLOGY A ND SEROLOGY ORDERABLES [facility] [address] [phone] documented in this encounter Visit Diagnoses Not on filedocumented in this encounter Care Teams Manager Scientific Relationship Specialty Start Date End Date Unknown, Provider, PCP - General 04/28/20 documented as of this encounter
--- OUTSIDE RECORDS SUMMARY | 2023-11-21 15:53 | XMS_ITS ---
Author Organization 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 Past Plans ADULT TREATMENT Plan Name Start Date Discontinue Date Treatment Medications Discontinue Reason Plan Provider Cycles [facility] ONC -BLADDER CANCER - PEMBROLIZUMAB 04/18/20 21 05/13/2023 pembrolizumab (Keytruda) in sodium chloride 0.9% 100 mL infusion Therapy Complete Jose Lange MD 34 of 36 cycles started Radiation Treatments * No radiation treatments are documented for this patient in [facility]. Treatments may have been administered in another system. Lifetime Dose Tracking * Chemical Lifetime Dose Automatic Entry Manual Entr y DLP (Dose Length Product) 464 mGy-cm 464 mGy-cm 0 mGy-cm CTDI (CT Dose Index) Min 9.18 mGy 9.18 mGy 0 m Gy CTDI (CT Dose Index) Max 9.18 mGy 9.18 mGy 0 m Gy
--- OUTSIDE RECORDS SUMMARY | 2023-11-21 15:53 | XMS_ITS | Encounter Summary ---
Author Organization Replaced By [facility] Address [facility] [place] [address] Care Team Providers Care Senior Marketing Analyst Name Role Phone Tavia Ramirez ALESSANDRO Primary Care Provider [phone] Encounter Details Date Type Department Care Team (Late st Contact Info) Description 11/10/2023 3:00 PM EDT Office Visit Hematology/Oncology at [address] [phone] Chase Mckay MD [facility] [place] [address] 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; Secondary malignant neoplasm of pleura; Metastatic urothelial carcinoma Social History Tobacco Use Types Packs/Day Years Used Date Smoking Tobacco: Former Cigarettes Q uit: 07/04/2014 Smokeless Tobacco: Never Alcohol Use Standard Drinks/Week Comments Not Currently 0 (1 standard drink = 0.6 oz pur e alcohol) [facility] Utilities Answer Date Recorded In the past 12 months has [employer], gas, oil, or water [employer] threatened to shut off services in your [...] to sleep or slept in a senior living (including now)? No 08/08/2023 DH IPV Inpatient [...] Sign Reading Time Taken Comments Blood Pressure 128/66 11/10/2023 2:55 PM EDT Pulse 74 11/10/2023 2:55 PM EDT Temperature 35.9 ??C (96.7 ??F) 11/10/2023 2:55 PM ED T Respiratory Rate 18 11/10/2023 2:55 PM EDT Oxygen Saturation 97% 11/10/2023 2:55 PM EDT Inhaled Oxygen Concentration - - Weight 69.2 kg (152 lb 9.6 oz) 11/10/2023 2:55 P M EDT Height 163.8 cm (5' 4.49) 11/10/2023 2:55 PM ED T Body Mass Index 25.8 11/10/2023 2:55 PM EDT documented in this encounter Progress Notes * Chase Mckay MD - 11/10/2023 3:00 PM EDT Images from the original note were not included. Thoracic Oncology [place] [phone] Barb Bullard is being seen for the evaluation of lung cancer. Assessment & Plan: Barb Bullard is a 73 y.o. female patient with limited past medical history (with limited medical care through the years) diagnosed with a metastatic bladder cancer in the Fall of 2020 as well as an adenocarcinoma of the left lower lobe with a level 7 lymph node involved and FDG avid pleural effusion (that has not been sampled). 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 She is referred by Dr. Lange regarding recommendations regarding targeted therapy in this context. She has been treated with single agent pembrolizumab since 04/17/12 with clinical improvement and radiographic response. She had progression of her lung cancer with and increasing adenopathy and new bilateral pleural implants seen on the 03/07/2023 PET scan. 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 We recommended treating the lung cancer with an adagrasib 400 mg twice daily based on the Phase II Trial (OMERO-7) that was just presented at [facility] in Fall 2022 and which demonstrated efficacy and safety of concomitant use withpembrolizumab. There is still risk for pneumonitis and hepatitis though these were at a reasonable rate. Ultimately given that she had been on pembrolizumab for 2 years this was discontinued given the stability of her bladder cancer. She began therapy with Adagrasib in 05.10 at 400 mg BID but this was poorly tolerated and therefore was held and resumed at a daily dose 2..24. Briefly interrupted during an admission in [facility] for pyelonephritis. Resumed in 08/13/23 at 400mgdaily and well tolerated PET scan reviewed from 08/19/23 with excellent response to therapy. EKG at [facility] with Qtc 466 7.8.24 PET scan personally reviewed as below with some degree of likely progression. Clinically sheis well. Discussed options of continuing current treatment with short interval restaging, trial of higher dose adagrasib (400mg BID) or changing to different systemic therapy (e.g. docetaxel). She would like to try the dose increase Plan: - Labs and toxicities assessed and acceptable for ongoing treatment. EKG reviewed as below - Increase on adagrasib 400 mg BID. She will try this for a week to make sure she can tolerate it and then call us with an update so we can order a new script with the updated dosing - RTC in 4 weeks with labs Chase Mckay MD, MS 11/06/2023 Medical Oncology & Hematology [facility] CC: Atiya Ramirez, JV BASEBALL COACH HPI/Interval History/Subjective: Last seen 08/25/2023 Had a penumoani last months And had a fall ove rher dog and landed hard. Thinks this may have contribute dto sacral insufficiency. r Feeling fair today. Her most recent concern is visiting nurses accidentally nicked her L nephrostomy tube during a dressing change. It was immediately taped and has not leaked, this was on Tuesday 09/26). The urine output has not changed, she has no fevers or pain, she plans to call this team to letthem know Tolerating the adagrasib well -does better when she takes it with food. No other side effects. Energy level has been lower over the last week, wonders if she's dehydrated as she's been spending more time outside and she's not drinking much. Breathing is good, no cough. Bowels moving but no diarrhea. No nausea or vomiting. Appetite has been poor, weight is down a bit but compared to about 6 weeks ago it's about the same. No palpitations No other infections [facility]s [facility]. Has received COVID J&J and Moderna booster . Social History/Support Network: Home situation: Lives in [facility]. Lives with her daughter. 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 Tobacco use: 30 pk year hx quit 2014 Alcohol use: Does not drink Drug use: None Financial Distress: Medicare A/B has financial assistance through the hospitals so not worried about food Residential or ability to pay for her cancer treatments at this time. Family History: Mother- Dscd 68 Acute Leukemia Father- Dscd 91 Old age Brother alive with liver cancer Maternal Aunt X 2 had Colon cancer No known history of lung cancer Oncology Overview: Presentation: Barb Bullard is a 71 y.o. female patient with limited past medical history (with limited medical care through the years) who in the summer of 2020 felt quite poorly with weakness recurrent UTIs, and unintentional weight loss related to acute renal failure and bilateral hydronephrosisdue to advanced bladder cancer. 04/04/21 bronchoscopy and tumor debulking endobronchial biopsies positive for adenocarcinoma of lungorigin. 02/21/2021 MRI brain: Impression: No significant intracranial findings 02/18/2025 CT chest abdomen pelvis: Impression: There is a large left lower lobe mass highly suspicious for neoplasm. There is associated pleural effusion subadjacent to the mass which is partially loculated. Bilateral moderate severe hydronephrosis related to bladder neoplasm. There is also thickening of the mild left ureter. No ascites evidence. 03.20.21 PET scan IMPRESSION 1. Hypermetabolic circumferential bladder wall irregularity and thickening with extension into the distal left ureter consistent with primary urothelial carcinoma. 2. Hypermetabolic regional anthony metastases in the pelvis and the left para-aortic region. 3. Bilateral nonenlarged hypermetabolic inguinal lymph nodes are most likely reactive. 4. Large hypermetabolic left lower lobe mass, most consistent with distant metastasis. Along with a large subpulmonic pleural effusion there is complete collapse versus replacement of the left lower lobe. Additional distant metastases involving the mediastinum, bilateral danielle, and bilateral cervical chains. The effusion is loculated and contains a hypermetabolic peripheral rim which may be due to inflammation, infection or malignancy. 5. Peripheral hypermetabolic groundglass and consolidative opacities in the peripheral right lung most consistent with sites of infection versus inflammation. 6. Diffusely increased metabolic activity throughout the axial and proximal appendicular skeleton without focal osseous lesions and diffusely increased activity in the spleen most consistent with reactive marrow. 04/04/21 bronchoscopy and tumor debulking- endobronchial biopsies positive for adenocarcinoma of lung origin 04.08.21 CT Abd/Pelvis IMPRESSION 1. Bilateral percutaneous nephroureteral catheter appears to be appropriately positioned with possible right renal pelvic pigtail potentially formed in the lower more lateral pelvis. However, this was present on prior study dated 03/20/2021. 2. Redemonstration of the left lower lung mass/metastatic mass with loculated pleural effusion. 3. Patchy consolidative opacity in the right lower lung could be related to infectious/inflammatory etiology, not significantly changed since the prior PET/CT dated 03/20/2021. 4. Postcholecystectomy anatomy with prominence of the CBD which is slightly more dilated what would be typically expected. This could be further evaluated with MRCP if no contraindications. 5. Other findings as above. 04/16/2021 nephrostomy catheter exchange 04/18/21 started Pembrolizumab and then was admitted to the hospital on 03/3021 with CAP, BRITNI and pulmonary HTN. She was discharged home on 07.13.21 cT CAP COMPARISON: 04/08/2021 Chest: Lungs and large airways: Grossly stable 5.3 x 5.8 cm LEFT lower lobe lung mass with heterogeneous enhancement. Resolved patchy areas of airspace consolidation in the RIGHT lower lobe. Centrilobular emphysematous disease. Pleura: Grossly stable partially loculated LEFT pleural effusion. Heart/vasculature: No pericardial effusion. The catheter tip in superior vena cava. Lymph nodes: Borderline enlarged bilateral mediastinal lymph nodes. Mediastinum and danielle: Mildly enlarged pretracheal lymph node measuring 11 mm. Borderline subcarinal adenopathy Abdomen/pelvis: Liver: No suspicious hepatic lesions. Focal fatty sparing along the falciform ligament Bile ducts: Nondilated. Gallbladder: Surgically absent Pancreas: Normal attenuation without ductal dilatation. Spleen: Normal. Adrenals: Normal. Kidneys: As noted previously bilateral percutaneous nephrostomy tubes. Bilateral double-J internal ureteral stents. Symmetric renal enhancement. No collecting system obstruction secondary to the nephrostomies. No renal masses Urinary Bladder: Decompressed Vasculature: No aneurysm. Lymph Nodes: No enlarged lymph nodes. Bowel: Nondilated, no wall thickening. Peritoneum and mesentery: No ascites, free air, or loculated fluid collection. No mesenteric inflammation. Abdominal wall: Normal. Reproductive organs: Normal. Osseous structures: No suspicious lesions. IMPRESSION 1. Grossly stable LEFT lower lobe lung mass with LEFT pleural effusion 2. Resolution of previously noted patchy consolidation RIGHT lower lobe. 3. Borderline mediastinal and hilar adenopathy. 4. Exam otherwise stable 03.07.23 03.07.23 1. Stable FDG avid left lower lobe lung mass extending to the left hilum with large necrotic component, consistent with malignancy. 2. New FDG avid bilateral pleural-based lung nodules, may be inflammatory or metastatic. 3. Increased size and metabolic activity of multiple mediastinal and right hilar nodes. These may represent anthony metastases or reactive nodes. 4. Increased metabolic activity of the left para-aortic node. This may represent anthony metastasis or reactive node. 5. Slightly decreased activity of the left external iliac and right obturator nodes. These are favored to represent treated anthony metastases. 6. Stable lymphadenopathy in the neck, with slightly decreased activity of bilateral axillary and inguinal nodes. These are favored to be reactive. Pathology: DIAGNOSIS Positive for Malignancy DISCUSSION Lymph node, station 7 (EBUS-guided FNA): Malignant cells present, compatible with metastatic adenocarcinoma (see note). Note: The lesional cells have enlarged, pleomorphic nuclei with prominent nucleoli. The lesional cells are immunoreactive for CK7 and TTF1 (strong, diffuse); they are negative for p40, synaptophysin, and GATA3. In view of the findings in the concurrent surgical specimen of left lower lobe mass lung debulking ([id number]), the immunostain findings in the present case are compatible with lung primary. 04.04.21 L1 Immunohistochemistry Study Tissue: Lung, left lower lobe mass Diagnosis: Adenocarcinoma, consistent with lung primary Tumor Proportion Score (TPS): 90% DIAGNOSIS A - Lung, left lower lobe mass, debulking: - Adenocarcinoma, consistent with lung primary. DISCUSSION Sections show an invasive, predominantly solid-patterned adenocarcinoma with prominent associated acute inflammation including microabscesses. The clinical context of newly diagnosed bladder carcinoma in addition to the presence of an obstructing left lower lobe lung mass is noted. While slides from the patient's bladder carcinoma are not currently available for review, the reported immunophenotype (GATA3-positive) is distinct from that seen in the current specimen. Overall features in the current specimen are consistent with a lung primary adenocarcinoma. 04.04.21 DISCUSSION Lymph node, station 11R (EBUS-guided FNA): Scant fragments of lymphoid tissue present, compatible with focal lymph node sampling. No metastatic carcinoma seen. 04.04.21 DIAGNOSIS Negative for Malignancy DISCUSSION Lymph node, station 4L (EBUS-guided FNA): Scant fragments of lymphoid tissue present, compatible with focal lymph node sampling. No metastatic carcinoma seen. DIAGNOSIS Negative for Malignancy DISCUSSION Lymph node, station 4R (EBUS-guided FNA): Lymphocytes present, consistent with lymph node sampling. No metastatic carcinoma seen. Cell block was examined. Additional deeper levels examined. DIAGNOSIS Positive for Malignancy DISCUSSION Lymph node, station 7 (EBUS-guided FNA): Malignant cells present, compatible with metastatic adenocarcinoma (see note). Note: The lesional cells have enlarged, pleomorphic nuclei with prominent nucleoli. The lesional cells are immunoreactive for CK7 and TTF1 (strong, diffuse); they are negative for p40, synaptophysin, and GATA3. In view of the findings in the concurrent surgical specimen of left lower lobe mass lung debulking ([id number]), the immunostain findings in the present case are compatible with lung primary. Molecular Data: 04.04.21 Lung biopsy KRAS p.G12C c.34G>T No variants reported. TP53 p.H179Y c.535C>T 04.09.23 Guardant 360 05.10.23 Started adagrasib 400mg BID. Stopped on 05.27 because of poorl oral intake 06.23.23 Decreased adagrasib to 400mg daily due to side effects fatigue/poor oral intake and admission with BRITNI 08.19.23 PET 1. Since prior study, there has been decreased burden of disease. This is evidenced by substantial decrease in soft tissue component and avidity of the left lower mass, now this lesion is mostly necrotic with a air-fluid level. Slight decrease in adenopathy in the mediastinum particularly subcarinal station. Slight decrease in indeterminate bilateral pleural soft tissue thickening. 2. There remains bilateral patchy subpleural opacities, which may represent disease versus inflammatory changes/fibrosis, and could be treatment related. 3. Diffusely increased uptake in the bone marrow and spleen, likely reactive. 4. Mild esophagitis. 11.03.23 Pet SCAN IMPRESSION 1. Persistent active malignancy in the left lower lobe, with the solid component increased in intensity compared to prior. 2. Persistent small active anthony metastases in the prevascular, and right upper and lower paratracheal regions, stable to modestly increased in size compared to prior. 3. New small FDG avid adenopathy in the abdominal left periaortic region, highly suspicious for active anthony metastasis. 4. No other sites of active metastatic disease. 5. New small linear focus of activity across the S5 vertebral body with no definite CT correlate, favored a benign sacral insufficiency fracture. Please correlate with clinical exam. 12/17/2022 2:23 PM 01/07/2023 10:19 AM 01/28/2023 10:46 AM 02/18/2023 1:57 PM 03/11/2023 3:30 PM 04/01/2023 11:20 AM 04/22/2023 12:40 PM ONCBCN ONCOLOGY (AMB) Day, Cycle Day 1, Cycle 28 Day 1, Cycle 29 Day 1, Cycle 30 Day 1, Cycle 31 Day 1, Cycle 32 Day 1, Cycle 33 Day 1, Cycle 34 pembrolizumab 25 mg/mL (Keytruda) IV 200 mg 200 mg 200 mg 200 mg 200 mg 200 mg 200 mg Patient Active Problem List Diagnosis Date Noted BRITNI (acute kidney injury) 08/07/2023 Pyelonephritis 07/09/2023 Secondary malignant neoplasm of pleura 05/03/2023 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 08/04/2021 Anemia 04/18/2021 Bilateral hydronephrosis 04/18/2021 Folate deficiency 04/18/2021 Lung mass 04/18/2021 Obstructive uropathy 04/18/2021 Metastatic urothelial carcinoma 03/27/2021 Abnormal thyroid function test 03/27/2021 No Known Allergies Medications 10/03/23 1106 Medication Sig Taking? adagrasib (Krazati) 200 mg tablet Take 400 mg by mouth daily. traMADoL 25 mg Tablet Take 25 mg by mouth as needed. lactobacillus with pectin 75 million cell -100 mg Capsule Take 1 capsule by mouth daily. HYDROmorphone (Dilaudid) 2 mg tablet Take 1 tablet by mouth every 6 hours as needed for Pain (As needed for breakthrough pain). Patient not taking: Reported on 08/25/2023 prochlorperazine (Compazine) 10 mg tablet Take 1 tablet by mouth every 6 hours as needed for Nausea. Patient not taking: Reported on 08/25/2023 levothyroxine (Synthroid) 75 mcg tablet Take 1 tablet by mouth daily. acetaminophen (Tylenol) 500 mg Tablet Take 1,000 mg by mouth every 8 hours as needed for Pain. senna (Senokot) 8.6 mg Tablet Take 1 tablet by mouth daily as needed for Constipation. I reviewed the problem list, allergies, medications, past medical history, social history and family history within the EPIC encounter. Pertinent details are noted above. Pertinent positives and negative from the Review of Systems are as summarized above in the HPI. Physical Exam: Wt Readings from Last 3 Encounters: 09/29/23 68.9 kg (151 lb 12.8 oz) 08/26/23 70.3 kg (155 lb) 08/25/23 69.9 kg (154 lb) Temp Readings from Last 3 Encounters: 10/03/23 36 ??C (96.8 ??F) (Temporal) 09/29/23 36.6 ??C (97.9 ??F) (Temporal) 09/18/23 36.5 ??C (97.7 ??F) (Temporal) BP Readings from Last 3 Encounters: 10/03/23 127/73 09/29/23 122/71 09/18/23 137/88 Pulse Readings from Last 3 Encounters: 10/03/23 82 09/29/23 77 09/18/23 75 There is no height or weight on file to calculate BSA. Wt Readings from Last 3 Encounters: 09/29/23 68.9 kg (151 lb 12.8 oz) 08/26/23 70.3 kg (155 lb) 08/25/23 69.9 kg (154 lb) KPS Score ECOG Grade Definition 90-100 0 Fully active, able to carry on all pre-disease performance without restriction x 70-80 1 Restricted in physically strenuous activity but ambulatory and able to carry out work of a light or sedentary nature, e.g., light house work, office work 50-60 2 Ambulatory and capable of all selfcare but unable to carry out any work activities; up and about more than 50% of waking hours 30-40 3 Capable of only limited selfcare; confined to bed or chair more than 50% of waking hours 10-20 4 Completely disabled; cannot carry on any selfcare; totally confined to bed or chair Physical Exam Constitutional: General: Not in acute distress. Appearance: Normal appearance. Normal weight. Not ill-appearing, toxic-appearing or diaphoretic. HENT: Head: Atraumatic. Eyes: General: No conjunctival icterus. Right eye: No discharge. Left eye: No discharge. Conjunctiva/sclera: Conjunctivae normal. Pulmonary: Effort: Pulmonary effort is normal. Neurological: General: No focal deficit present. Mental Status: Alert and oriented to person, place, and time. Mental status is at baseline. Psychiatric: Mood and Affect: Mood normal. Behavior: Behavior normal. Thought Content: Thought content normal. Judgment: Judgment normal. Review of Laboratory Data: 09.29.23 WBC 6.64, H/H 11/35.2, plt 609, ANC 4630, Na 139, K 3.8, Cl 106, CO2 22.6, BUN 20, Creat 1.9, glucose 100, Ca 8.5, Mag 2.2, t bili 0.5, AST 11, ALT 13, alk phos 85, t protein 8.2, albumin 3.0, TSH 2.51, Free T4 1.03 Last 5 CBC Recent Labs 11/03/23 1127 08/19/23 1020 08/10/23 0449 08/09/23 0656 08/08/23 0658 WBC 9.3 11.4* 6.9 7.8 10.8* HGB 12.1 11.7 10.7* 10.4* 10.2* MCV 75.6* 79.3* 80.4* 79.5* 79.2* PLATELET 620* 559* 427* 416* 383* NEUTROABS 6.40* 7.92* 4.19 5.21 7.86* Last 5 Lytes Recent Labs 11/03/23 1127 08/19/23 1020 08/10/23 0449 08/09/23 0656 08/08/23 0658 NA 139 141 140 137 135 K 5.0 4.1 4.4 4.1 4.3 CL 109* 108* 112* 110* 107 CO2 20* 20* 20* 20* 21* BUN 25* 19* 17 18 24* CREATININE 2.03* 1.74* 1.76* 1.90* 2.14* Last 5 LFTs Recent Labs 11/03/23 1127 08/19/23 1020 08/07/23 2255 AST 10 19 9 ALT 7 26 8 ALKPHOS 108* 126* 75 BILITOT 0.8 1.0 0.7 Last 5 Ca, Mg, Phos Recent Labs 11/03/23 1127 08/19/23 1020 08/07/23 0436 07/10/23 0148 CALCIUM 9.4 9.0 < > 7.9* PHOS -- -- -- 4.0 MAGNESIUM -- 0.94 -- 0.90 < > = values in this interval not displayed. Last 3 Coags No results for input(s): PT, INR, PTT in the last 7068 hours. Last 3 TFT No results for input(s): TSH in the last 7068 hours. Invalid input(s): T4, FT4 3.25.24 White blood cell count 8.47 hemoglobin 11.5 platelet count 546,000 absolute neutrophil count 5.16 2..24 WBC 6.63, H/H 11.2/35.8, plt 531, ANC 2790, Na 140, K 4.4, Cl 106, CO2 23.8, BUN 19, Creat 1.5 (this is patient's baseline per daughter), glucose 99, Ca 8.6, Mag 2.3, t bili 0.5, AST 19, ALT 19, alk phos 126, t protein 8.6, albumin 3.2 06/09/2023 White blood cell count 11.48 hemoglobin 10.3 from 10.9 MCV 79 platelet count 409,000 absolute neutrophil count 7.96 Sodium 139 potassium 4.4 chloride 105 BUN 19 creatinine 1.6 down from 2.1 on May 27 Glucose 98 calcium 8.7 magnesium 2.2 total bilirubin 0.7 AST 15 ALT 16 alk phos 169 albumin 2.9 improved from 2. 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 Metastatic urothelial carcinoma Expected: 12/10/2023, Expires: 11/09/2024 Comprehensive metabolic panel (non-fasting) Lab STAT 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 Metastatic urothelial carcinoma Expected: 12/10/2023, Expires: 11/09/2024 Magnesium Lab STAT 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
--- OUTSIDE RECORDS SUMMARY | 2023-11-21 15:53 | XMS_ITS | Encounter Summary ---
Author Organization [facility] Address [facility] [place] [address] Care Team Providers Care Bleach Mixer Name Role Phone Tavia Ramirez APRN Primary Care Provider [phone] Reason for Visit * Reason Onset Date Comments Medication Problem 11/18/2023 Encounter Details Date Type Department Care Team (Late st Contact Info) Description 11/18/2023 Telephone Hematology/Oncology at [address] [phone] Marci Chen RN Medication Problem Social History Tobacco Use Types Packs/Day Years [...] place to sleep or slept in a longterm (including now)? No 08/08/2023 DH IPV Inpatient [...] encounter Miscellaneous Notes * Telephone Encounter - Marci Chen RN - 11/18/2023 11:50 AM EDT [facility] called for clarification on the dosing of adagrasib (Krazati) medication. Typically it is dosed twice daily. Per Dr Mckay's note 11/10/23 they are increasing dose to 400 mg twice daily. Pharmacist will annotate the prescription to reflect this. documented in this encounter Plan of Treatment Upcoming Encounters Date Type Department Care Team (Late st Contact Info) Description 12/08/2023 3:30 PM EDT Office Visit Hematology/Oncology at [address] [phone] Chase Mckay MD [facility] [address] [place] [address] documented as of this encounter Visit Diagnoses Not on filedocumented in this encounter Care Teams Bleach Mixer Relationship Specialty Start Date End Date Tavia Ramirez, PAD HAND [facility] [address] PCP - General Family Medicine 06/11/22 documented as of this encounter
--- OUTSIDE RECORDS SUMMARY | 2023-11-21 15:53 | XMS_ITS | Encounter Summary ---
Author Organization [facility] Address [facility] [place] [address] Care Team Providers Care Manager Planning Name Role Phone James Tavia Foster APRN Primary Care Provider [phone] Encounter Details Date Type Department Care Team (Latest Contact Info) Description 10/02/2023 Travel Social History Tobacco Use Types Packs/Day Years Used Date Smoking Tobacco: Former Cigarettes Q uit: 07/04/2014 Smokeless Tobacco: Never Alcohol Use Standard Drinks/Week Comments Not Currently 0 (1 standard drink = 0.6 oz pur e alcohol) [facility] Utilities Answer Date Recorded In the past [...] place to sleep or slept in a alf (including now)? No 08/08/2023 DH IPV Inpatient [...] 3:30 PM EDT Office Visit Hematology/Oncology at [address] [phone] Chase Mckay MD [facility] DR HEMATOLOGY [place] [address] documented as of this encounter Visit Diagnoses Not on filedocumented in this encounter Care Teams Manager Planning Relationship Specialty Start Date End Date Tavia Ramirez [place] [address] [place] [address] PCP - General Family Medicine 06/11/22 documented as of this encounter
--- OUTSIDE RECORDS SUMMARY | 2023-11-21 15:53 | XMS_ITS | Encounter Summary ---
Author Organization [facility] Address [facility] [place] [address] Care Team Providers Care Commercial Analyst Name Role Phone James Tavia Foster APRN Primary Care Provider [phone] Encounter Details Date Type Department Care Team (Latest Contact Info) Description 11/10/2023 Travel Social History Tobacco Use Types Packs/Day Years Used Date Smoking Tobacco: Former Cigarettes Q uit: 07/04/2014 Smokeless Tobacco: Never Alcohol Use Standard Drinks/Week Comments Not Currently 0 (1 standard drink = 0.6 oz pur e alcohol) [facility] Utilities Answer Date Recorded In the [...] place to sleep or slept in a prison (including now)? No 08/08/2023 DH IPV Inpatient [...] 3:30 PM EDT Office Visit Hematology/Oncology at [address] [phone] Chase Mckay MD [facility] DR HEMATOLOGY [place] [address] documented as of this encounter Visit Diagnoses Not on filedocumented in this encounter Care Teams Commercial Analyst Relationship Specialty Start Date End Date Tavia Ramirez [place] [place] [address] PCP - General Family Medicine 06/11/22 documented as of this encounter
--- OUTSIDE RECORDS SUMMARY | 2023-11-21 15:53 | XMS_ITS | Clinical Summary ---
Author Organization [facility] Address [address] [place] [id number] Care Team Providers Care Database Administration Associate Name Role Phone Unknown, Provider Primary Care Provider Social History Tobacco Use Types Packs/Day Years Used Date Smoking Tobacco: Never Assessed Sex and Gender Information Value Date Recorded Sex Assigned at Not on file Gender Identity Not on file Sexual Orientation Not on file Plan of Treatment Health Maintenance Due Date Last Done Comments RSV Immunization ( o r 60+ Years) (1 - 1-dose 60+ series) 2011 Fall Risk Screening 07/04/2016 COVID-19 Vaccine ( season) 2022 Hepatitis C Screen Completed 03/02/2021 Procedures Procedure Name Priority Date/Time Associated Diagnosis Comments HEPATITIS C AB W REFLEX TO HCV RNA BY PCR Routine 03/02/2021 14:00 EDT from Last 3 Months or Most Recently Relevant to Health Maintenance Results * HEPATITIS C AB W REFLEX TO HCV RNA BY PCR (03/02/2021 14:00 EDT) Hep C Antibody Negative Negative 03/05/2021 9:42 EST [facility] Blood VENOUS BLOOD / Unknown 03/02/2021 14:00 EDT 03/04/2021 16:56 EST Provider Outr Resulting Lab CHEMISTRY & BLOOD GAS ORDERABLES [facility] [address] [place] [address] from Last 3 Months or Most Recently Relevant to Health Maintenance Care Teams Database Administration Associate Relationship Specialty Start Date End Date Unknown, Provider, PCP - General 04/28/20
--- OUTSIDE RECORDS SUMMARY | 2023-11-21 15:53 | XMS_ITS | Encounter Summary ---
Author Organization [facility] Address [facility] [place] [address] Care Team Providers Care Third Miller Name Role Phone James Tavia Foster APRN Primary Care Provider [phone] Encounter Details Date Type Department Care Team (Late st Contact Info) Description 10/16/2023 Telephone Hematology/Oncology at [address] [phone] Marci Chen RN Social History Tobacco Use Types Packs/Day Years Used Date Smoking Tobacco: Former Cigarettes Q uit: 07/04/2014 Smokeless Tobacco: Never Alcohol Use Standard Drinks/Week Comments Not Currently 0 (1 standard drink = 0.6 oz pur e alcohol) [facility] Utilities Answer Date Recorded In the [...] place to sleep or slept in a [place] (including now)? No 08/08/2023 DH IPV Inpatient [...] Telephone Encounter - Marci Chen RN - 10/16/2023 9:51 AM EDT Called and spoke with pt who is on adagrasib 400 mg daily for lung cancer. She is feeling much better today. Her ABT is for 5 days and 7 days. She has FUV with us 11/09 and advised to call sooner if any concerns in the interim. She was thankful for the follow up call. ----- Message from Tg B sent at 10/15/2023 4:35 PM EDT ----- Barb went to urgent care and has pneumonia. She is now on 2 antibiotics azithromycin, amox-clav. She got had a CT chest done at urgent care in [place]. Saw Tavia Boyd there. [phone] documented in this encounter Plan of Treatment Upcoming Encounters Date Type Department Care Team (Late st Contact Info) Description 12/08/2023 3:30 PM EDT Office Visit Hematology/Oncology at [address] [phone] Chase Mckay MD [facility] DR [place] [address] documented as of this encounter Visit Diagnoses Not on filedocumented in this encounter Care Teams Third Miller Relationship Specialty Start Date End Date Tavia Ramirez, ALESSANDRO [facility] [place] [address] PCP - General Family Medicine 06/11/22 documented as of this encounter
--- OUTSIDE RECORDS SUMMARY | 2023-11-21 15:53 | XMS_ITS | Encounter Summary ---
Author Organization [facility] Address [facility] [place] [address] Care Team Providers Care Change Director Name Role Phone James Tavia Foster APRN Primary Care Provider [phone] Encounter Details Date Type Department Care Team (Latest Contact Info) Description 10/31/2023 Travel Social History Tobacco Use Types Packs/Day Years Used Date Smoking Tobacco: Former Cigarettes Q uit: 07/04/2014 Smokeless Tobacco: Never Alcohol Use Standard Drinks/Week Comments Not Currently 0 (1 standard drink = 0.6 oz pur e alcohol) [facility] Utilities Answer Date Recorded In the [...] 3:30 PM EDT Office Visit Hematology/Oncology at [address] [phone] Chase Mckay MD [facility] DR HEMATOLOGY [place] [address] documented as of this encounter Visit Diagnoses Not on filedocumented in this encounter Care Teams Change Director Relationship Specialty Start Date End Date Tavia Ramirez [place] [place] [address] PCP - General Family Medicine 06/11/22 documented as of this encounter
--- OUTSIDE RECORDS SUMMARY | 2023-11-21 15:53 | XMS_ITS | Encounter Summary ---
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 Obstructive uropathy Lung mass Folate deficiency Bilateral hydronephrosis Anemia, unspecified type Abnormal thyroid function test Procedures IR Nephrostomy Tube Exchange Left IR Nephrogram/Nephrostomy Tube Exchange Bilateral Jean Carlos Fenton, [facility] [place] [address] [place] [address] Referral ID Status Reason Start Date Expiration Date V isits Requested Visits Authorized [id number] Closed Specialty Service Requested 09/18/2023 03/20/2025 1 1 Encounter Details Date Type Department Care Team (Latest Contact Info) Description 10/03/2023 10:51 AM EDT - 10/03/2023 11:59 PM EDT Hospital [place] [address] Jean Carlos Fenton, [facility] [place] [address] Metastatic urothelial carcinoma; BRITNI (acute kidney injury); Pyelonephritis; Secondary malignant neoplasm of pleura; 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; Obstructive uropathy; Lung mass; Folate deficiency; Bilateral hydronephrosis; Anemia, unspecified type; Abnormal thyroid function test Discharge Disposition: Home Social History Tobacco Use Types Packs/Day Years Used Date Smoking Tobacco: Former Cigarettes Q uit: 07/04/2014 Smokeless Tobacco: Never Alcohol Use Standard Drinks/Week Comments Not Currently 0 (1 standard drink = 0.6 oz pur e alcohol) [facility] Utilities Answer Date Recorded In the past 12 months has th e electric, gas, oil, or water cinvolve threatened to shut off services in your [...] place to sleep or slept in a skilled nursing (including now)? No 08/08/2023 DH IPV Inpatient [...] Sign Reading Time Taken Comments Blood Pressure 127/73 10/03/2023 12:02 PM EDT Pulse 82 10/03/2023 11:08 AM EDT Temperature 36 ??C (96.8 ??F) 10/03/2023 12:02 PM EDT Respiratory Rate 18 10/03/2023 12:02 PM EDT Oxygen Saturation 96% 10/03/2023 12:02 PM EDT Inhaled Oxygen Concentration - - Weight - - Height - - Body Mass Index - - documented in this encounter Medications at Time [...] as of this encounter Progress Notes * Keo Ponce RN - 10/03/2023 10:56 AM EDT [facility] NURSING DATABASE Name: Barb Bullard Date of : 1950 AGE: 73 y.o. Address: [address] [place] [phone] (home) Mobile: Telephone Information: Referring Provider: Jean Carlos Fenton REASON FOR VISIT: Order Questions Answers Where will study be performed? [facility] Radiology [120] To be scheduled Next available after expected date Reason for exam and clinical history: Bilateral ureteral obstruction. Chronic nephrostomy cathetersin situ. Routine 3-month exchange. Is the patient on anticoagulant / antiplatelet therapy ? No No data recorded No Known Allergies Pertinent PMH: Patient Active [...] to take cipro d/t PO chemo treatment 1121 to procedure room 1 via stretcher. Onto table prone. All monitors, O2, safety strap in place. Meds per protocol. Laboratory Results: Lab Results Component Value Date CREATININE 1.74 (H) 08/19/2023 Lab Results Component Value Date K 4.1 08/19/2023 Lab Results Component Value Date PLATELET 559 (H) 08/19/2023 documented in this encounter H&P Notes * Maria Fernanda Suarez PA - 10/02/2023 1:17 PM EDT Images from the original note were not included. Interventional Radiology Focused Pre-procedure H&P: PCP: Tavia Ramirez APRN Referring Provider: Jean Carlos Fenton Planned procedure: Left nephrostomy catheter exchange Procedure indication: Damage of left nephrostomy catheter, obstructive uropathy IR workflow: Procedure request received through Interventional Radiology eDH order queue. Order Questions Answers Where will study be performed? [facility] Radiology [120] To be scheduled Next available after expected date Reason for exam and clinical history: Bilateral ureteral obstruction. Chronic nephrostomy cathetersin situ. Routine 3-month exchange. Is the patient on anticoagulant / antiplatelet therapy ? No History of Present Illness: Per chart review, Barb Bullard is a 73 y.o. female with PMH of obstructive uropathy 2nd urothelial CA with chronic B/L PCNs who presents to Interventional Radiology to undergo L PCN exchange in the setting of damage to L PCN (small knick of catheter, VNA accidentally cut it). Most recent exchange on 09/17 for a new 10 Fr catheter. Remainder of patient's medical and surgical history, allergies, medications, and social/family history obtained below as previously outlined in patient's medical record. IR History: As above. Imagin09/18/23 Assessment: 73 y.o. female with damage of L PCN presenting to Interventional Radiology for L PCN exchange. Plan Planned procedure: Left nephrostomy catheter exchange Labs to be performed day of procedure: No labs Sedation: No Sedation Prophylactic antibiotic : Cipro Contrast: Omnipaque Additional medications for procedure: Bette lewis Consent: Scanned Medications to discontinue (and days held): None Cytopathology presence needed: No Case Urgency:: G1-Elective Outpatient intervention within 4-7 days Labs: Lab Results Component Value Date HGB 11.7 08/19/2023 HCT 36.8 08/19/2023 WBC 11.4 (H) 08/19/2023 PLATELET 559 (H) 08/19/2023 BUN 19 (H) 08/19/2023 CREATININE 1.74 (H) 08/19/2023 ALBUMIN 3.8 08/19/2023 BILITOT 1.0 08/19/2023 AST 19 08/19/2023 ALT 26 08/19/2023 ALKPHOS 126 (H) 08/19/2023 Allergies: Patient has no known allergies. Medications: Current Outpatient Medications on File Prior to Encounter Medication Sig Dispense Refill adagrasib (Krazati) 200 mg tablet Take 400 mg by mouth daily. traMADoL 25 mg Tablet Take 25 mg by mouth as needed. lactobacillus with pectin 75 million cell -100 mg Capsule Take 1 capsule by mouth daily. 30 capsule0 HYDROmorphone (Dilaudid) 2 mg tablet Take 1 tablet by mouth every 6 hours as needed for Pain (As needed for breakthrough pain). (Patient not taking: Reported on 08/25/2023) 20 tablet 0 prochlorperazine (Compazine) 10 mg tablet Take 1 tablet by mouth every 6 hours as needed for Nausea. (Patient not taking: Reported on 08/25/2023) 15 tablet 0 levothyroxine (Synthroid) 75 mcg tablet Take 1 tablet by mouth daily. 30 tablet 11 acetaminophen (Tylenol) 500 mg Tablet Take 1,000 mg by mouth every 8 hours as needed for Pain. senna (Senokot) 8.6 mg Tablet Take 1 tablet by mouth daily as needed for Constipation. 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 No pertinent past medical history. Past Surgical History: Procedure Laterality Date IR MEDIPORT PLACEMENT 04/02/2021 IR Mediport Placement 04/02/[address] [facility] INTERVENTIONL RAD IR NEPHROGRAM/NEPHROSTOMY TUBE EXCHANGE BILATERAL 04/24/2022 IR Nephrogram/Nephrostomy Tube Exchange Bilateral 04/24/[address] [facility] INTERVENTIONL RAD IR NEPHROGRAM/NEPHROSTOMY TUBE EXCHANGE BILATERAL 07/26/2022 IR Nephrogram/Nephrostomy Tube Exchange Bilateral 07/26/[address] [facility] INTERVENTIONL RAD IR NEPHROGRAM/NEPHROSTOMY TUBE EXCHANGE BILATERAL 10/18/2022 IR Nephrogram/Nephrostomy Tube Exchange Bilateral 10/18/2022 Alexis De La Cruz MD [facility] INTERVENTIONL RAD IR NEPHROGRAM/NEPHROSTOMY TUBE EXCHANGE BILATERAL 12/11/2022 IR Nephrogram/Nephrostomy Tube Exchange Bilateral 12/11/2022 Alexis De La Cruz MD [facility] INTERVENTIONL RAD IR NEPHROGRAM/NEPHROSTOMY TUBE EXCHANGE BILATERAL 02/13/2023 IR Nephrogram/Nephrostomy Tube Exchange Bilateral 02/13/[address] [facility] INTERVENTIONL RAD IR NEPHROGRAM/NEPHROSTOMY TUBE EXCHANGE BILATERAL 04/04/2023 IR Nephrogram/Nephrostomy Tube Exchange Bilateral Alin Dillard MD [facility] INTERVENTIONL RAD IR NEPHROGRAM/NEPHROSTOMY TUBE EXCHANGE BILATERAL 04/25/2023 IR Nephrogram/Nephrostomy Tube Exchange Bilateral [facility] INTERVENTIONL RAD IR NEPHROGRAM/NEPHROSTOMY TUBE EXCHANGE BILATERAL 06/19/2023 IR Nephrogram/Nephrostomy Tube Exchange Bilateral Alexis De La Cruz MD [facility] INTERVENTIONL RAD IR NEPHROGRAM/NEPHROSTOMY TUBE EXCHANGE BILATERAL 07/09/2023 IR Nephrogram/Nephrostomy Tube Exchange Bilateral 07/09/[address] [facility] INTERVENTIONL RAD IR NEPHROGRAM/NEPHROSTOMY TUBE EXCHANGE BILATERAL 08/07/2023 IR Nephrogram/Nephrostomy Tube Exchange Bilateral [facility] INTERVENTIONL RAD IR NEPHROGRAM/NEPHROSTOMY TUBE EXCHANGE BILATERAL 09/18/2023 IR Nephrogram/Nephrostomy Tube Exchange Bilateral 09/18/2023 Jean Carlos Fenton, [facility] INTERVENTIONL RAD IR NEPHROSTOMY TUBE PLACEMENT PERCUTANEOUS BILATERAL 02/20/2021 IR Nephrostomy Tube Placement Percutaneous Bilateral [facility] INTERVENTIONL RAD IR NEPHROURETERAL (NU) STENT PLACEMENT/CHECK/CHANGE 07/13/2021 IR Nephroureteral (NU) Stent Placement Check/Change 07/13/2021 Alexis De La Cruz MD [facility] INTERVENTIONLRAD IR NEPHROURETERAL (NU) STENT PLACEMENT/CHECK/CHANGE 10/23/2021 IR Nephroureteral (NU) Stent Placement Check/Change 10/23/[address] [facility] INTERVENTIONL RAD IR NEPHROURETERAL (NU) STENT PLACEMENT/CHECK/CHANGE 01/18/2022 IR Nephroureteral (NU) Stent Placement Check/Change 01/18/[address] [facility] INTERVENTIONLRAD PRO [facility] EBUS GUIDED SAMPL 3/> NODE STATION/STRUX N/A 04/04/2021 BRONCH, W ENDOBRONCHIAL ULTRASOUND (EBUS) GUIDED SAMPLING, 3+ NODES (WRVU 5.21) performed by Alonzo Cevallos MD at [facility] MAIN OR PRO BRONCHOSCOPY, DIAGNOSTIC W LAVAGE N/A 04/04/2021 BRONCHOSCOPY, RIGID OR FLEXIBLE, WITH BRONCHIAL ALVEOLAR LAVAGE (WRVU 2.88) performed by Alonzo Cevallos MD at [facility] MAIN OR Social History and Habits: Social History Tobacco Use Smoking status: Former Current packs/day: 0.00 Types: Cigarettes Quit date: 07/04/2014 Years since quittin.2 Smokeless tobacco: Never Vaping Use Vaping status: Never Used Substance Use Topics Alcohol use: Not Currently Drug use: Never Significant Family History: History reviewed. No pertinent family history. Pertinent ROS: as per HPI Physical Exam: Pending (to be performed in IR the day of procedure) ASA: Pending (to be assessed in IR the day of procedure) Mallampati class: Pending (to be assessed in IR the day of procedure) 10/02/2023 Maria Fernanda Suarez PA-C documented in this encounter Plan of Treatment Upcoming Encounters Date Type Department Care Team (Late st Contact Info) Description 12/08/2023 3:30 PM EDT Office Visit Hematology/Oncology at [address] [phone] Chase Mckay MD [facility] [address] [place] [address] documented as of this encounter Procedures Procedure Name Priority Date/Time Associated Diagnosis Comments IR NEPHROSTOMY TUBE EXCHANGE LEFT Routine 10/03/2023 12:00 PM EDT Metastatic urothelial carcinoma BRITNI (acute kidney injury) Pyelonephritis 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 Chronic indwelling left nephrostomy tube ?? damaged and pulled back. Postoperative Diagnosis: ?? Same Procedure Performed: Over the wire exchange of nephrostomy tube Estimated Blood Loss: None Fluoroscopy time: Please see eD IR technologist record for procedural dose/time Operators: [...] 2% chlorhexidine for cutaneous antisepsis. The existing left Nephrostomy tube ??was prepped and draped in the usual sterile fashion. Contrast was administered through the existing tube ??demonstrating the tube to lie within a peripheral calyx Using fluoroscopic guidance, the existing nephrostomy tube was removed over a wire, and replaced with a new ??10 Fr nephrostomy tube which was positioned within the renal pelvis. A spot fluoroscopic image demonstrates the nephrostomy tube to be in good position. The patient tolerated the procedure well. Impression: Uneventful over the wire exchange of nephrostomy tube as above. I, the attending Interventional Radiologist performed the entire procedure. 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 Malignant neoplasm of lower lobe, bronchus, or lung Obstructive uropathy Urinary obstruction, unspecified Lung mass Swelling, mass, or lump in chest Folate deficiency Other B-complex deficiencies Bilateral hydronephrosis Hydronephrosis Anemia, unspecified type Abnormal thyroid function test Nonspecific abnormal results of thyroid function study documented in this encounter Administered Medications Inactive Administered Medications - up to 3 most recent administrations Medication Order MAR Action Action Date Dose Rate Site iohexoL (Omnipaque) (350 mg/mL) solution 1-400 mL 1-400 mL, Other, ONCE, 1 dose, On Fri10/03/23 at 1130, For intra-procedural use by proceduralist., Angio/IR (Intra-Procedure), Routine Given 10/03/2023 11:30 AM EDT 10 mLs lidocaine (Glydo) 2 % gel 6 mL 6 mL, Topical (Top), EVERY 4 HOURS PRN, Starting on Fri10/03/23 at 1107, Until Fri10/03/23 at 1208, Pain, For use in Interventional Radiology (IR) only for procedure with direct provider supervision and verbal order., Angio/IR (Intra-Procedure), Routine Given 10/03/2023 11:20 AM EDT 6 mLs documented in this encounter Care Teams Char Filter Tank Tender Head Relationship Specialty Start Date End Date Tavia Ramirez, ALESSANDRO [facility] [place] [address] [address] PCP - General Family Medicine 06/11/22 documented as of this encounter
--- OUTSIDE RECORDS SUMMARY | 2023-11-21 15:53 | XMS_ITS | Encounter Summary ---
[place] [address] Care Team Providers Care Feeder Associate Name Role Phone Tavia Ramirez APRN Primary Care Provider [phone] Reason for Referral * Diagnostic Test (Routine) - Closed Specialty Diagnoses / Procedures Referred By Contac t Referred To Contact Radiology Diagnoses 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 Metastatic urothelial carcinoma Procedures NM PET CT Skull Base to Mid-thigh Dianne Jacob APRN [address] [place] [address] DR HEMATOLOGY [place] [address] [place] [address] Referral ID Status Reason Start Date Expiration Date V isits Requested Visits Authorized [id number] Closed Specialty Service Requested 09/29/2023 03/30/2025 1 1 Reason for Visit * Diagnostic Test (Routine) - Closed Specialty Diagnoses / Procedures Referred By Contac t Referred To Contact Radiology Diagnoses 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 Metastatic urothelial carcinoma Procedures NM PET CT Skull Base to Mid-thigh Dianne Jacob APRN [address] [place] [address] DR HEMATOLOGY [place] [address] [place] [address] Referral ID Status Reason Start Date Expiration Date V isits Requested Visits Authorized [id number] Closed Specialty Service Requested 09/29/2023 03/30/2025 1 1 Encounter Details Date Type Department Care Team (Late st Contact Info) Description 11/03/2023 11:55 AM EDT Hospital Encounter [place] [address] Dianne Jacob, GUEST SERVICES OFFICER [address] [place] [address] DR HEMATOLOGY [place] [address] 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; Metastatic urothelial carcinoma Discharge Disposition: Home Social History Tobacco Use Types Packs/Day Years Used Date Smoking Tobacco: Former Cigarettes Q uit: 07/04/2014 Smokeless Tobacco: Never Alcohol Use Standard Drinks/Week Comments Not Currently 0 (1 standard drink = 0.6 oz pur e alcohol) [facility] Utilities Answer Date Recorded In the past 12 months has th e [employer], gas, oil, or water [employer] threatened to shut off services in your [...] 3:30 PM EDT Office Visit Hematology/Oncology at [address] [phone] Chase Mckay MD [facility] [place] [address] documented as of this encounter Procedures Procedure Name Priority Date/Time Associated Diagnosis Comments NM PET CT SKULL BASE TO MID-THIGH ([facility]) Routine 11/03/2023 1:26 PM EDT 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 Metastatic urothelial carcinoma documented in this encounter Results * NM PET CT Skull Base to Mid-thigh (11/03/2023 1:26 PM EDT) WORKSTATION ID [id number] RAD Anatomical Region Laterality Modality Positron Emissio n Tomography (PET) Impressions 11/05/2023 11:29 AM EDT 1. ??Persistent active malignancy in the left lower lobe, with the solid component increased in intensity compared to prior. 2. ??Persistent small active anthony metastases in the prevascular, and right upper and lower paratracheal regions, stable to modestly increased in size compared to prior. 3. ??New small FDG avid adenopathy in the abdominal left periaortic region, highly suspicious for active anthony metastasis. 4. ??No other sites of active metastatic disease. 5. ??New small linear focus of activity across the S5 vertebral body with no definite CT correlate, favored a benign sacral insufficiency fracture. Please correlate with clinical exam. I have personally reviewed the image(s) and the resident's interpretation and agree with the findings, Ed Barajas MD at 11/05/2023 11:29 AM Thank you for letting us participate in the care of this patient. ??If you are a health care provider and have any questions regarding this report, please contact the number below. ??For patients who have questions please contact the health clinical care coordinator that requested your imaging first. ? Electronically signed by: Ed Barajas MD, [facility] ([phone]), at 11/05/2023 11:29 AM Narrative 11/05/2023 11:29 AM EDT EXAMINATION: ME PET CT STANDARD SKULL BASE TO MID-THIGH CLINICAL HISTORY: NSCLC Metastatic non-small cell lung cancer subsequent treatment evaluation. Also history of bladder cancer. C34.32, Malignant neoplasm of lower lobe, left bronchus or lung - C79.10, Secondary malignant neoplasm of unspecified urinary organs. TECHNIQUE: Following IV injection of 52-rrjfwv-5-deoxyglucose (FDG) a standard uptake of approximately 60 minutes, a noncontrast CT scan followed by a PET scan were acquired from the base of the skull to mid thighs. The noncontrast CT was used for anatomic localization and photon attenuation correction of the PET scan. Blood glucose level: 101 (mg/dL) FDG dose: 10.3 mCi COMPARISON: PET/CT 08/19/2023. CT abdomen pelvis 08/07/2023. FINDINGS: HEAD/NECK: Multiple small FDG avid bilateral level 2 lymph nodes, unchanged in size from 08/19/2023, favored benign reactive nodes. CHEST: Interval increase in intensity of the solid component of the left lower lobe mass (image 92) which is similar in overall size compared to prior. The necrotic component of the mass is decreased in size compared to prior. There is decreasing extent and intensity of uptake along the posterolateral origin of a small loculated pleural fluid collection (image 109), favored resolving inflammation. Persistent small FDG avid lymph nodes in the prevascular, right upper and lower paratracheal regions, stable to modestly increased in size since 08/19/2023. Similar several small FDG avid axillary lymph nodes, unchanged in size from 08/19/2023, favored to be reactive. Resolving right lower lobe groundglass opacities, consistent with a benign inflammatory etiology. Right chest port tip at the superior cavoatrial junction. Coronary and aortic calcifications. ABDOMEN/PELVIS: New small FDG avid left paraaortic adenopathy (axial images 148-156). Multiple small moderately FDG avid lymph nodes in the bilateral inguinal and bilateral distal external iliac regions, some of which are more prominent in activity compared to prior, but all favored benign reactive nodes. Unchanged diffusely increased uptake in the spleen, consistent with reactive spleen. ?? Bilateral percutaneous nephrostomy catheters. Cystectomy. SKELETON/EXTREMITIES: New small linear focus of activity across the S5 vertebral body with no definite CT correlate, favored a benign sacral insufficiency fracture. No other significant osseous findings. Procedure Note Ed Barajas MD - 11/05/2023 EXAMINATION: NM PET CT STANDARD SKULL BASE TO MID-THIGH CLINICAL HISTORY: NSCLC Metastatic non-small cell lung cancer subsequent treatment evaluation.Also history of bladder cancer. C34.32, Malignant neoplasm of lower lobe, left bronchus or lung -C79.10, Secondary malignant neoplasm of unspecified urinary organs. TECHNIQUE: Following IV injection of 70-cjbwha-6-deoxyglucose (FDG) astandard uptake of approximately 60 minutes, a noncontrast CT scan followed by aPET scan were acquired from the base of the skull to mid thighs. The noncontrast CTwas used for anatomic localization and photon attenuation correction of thePET scan. Blood glucose level: 101 (mg/dL) FDG dose: 10.3 mCi COMPARISON: PET/CT 08/19/2023. CT abdomen pelvis 08/07/2023. FINDINGS: HEAD/NECK: Multiple small FDG avid bilateral level 2 lymph nodes, unchanged in sizefrom 08/19/2023, favored benign reactive nodes. CHEST: Interval increase in intensity of the solid component of the left lowerlobe mass (image 92) which is similar in overall size compared to prior. Thenecrotic component of the mass is decreased in size compared to prior. There is decreasing extent and intensity of uptake along theposterolateral origin of a small loculated pleural fluid collection (image 109),favored resolving inflammation. Persistent small FDG avid lymph nodes in the prevascular, right upper andlower paratracheal regions, stable to modestly increased in size since08/19/2023. Similar several small FDG avid axillary lymph nodes, unchanged in sizefrom 08/19/2023, favored to be reactive. Resolving right lower lobe groundglass opacities, consistent with abenign inflammatory etiology. Right chest port tip at the superior cavoatrial junction. Coronary andaortic calcifications. ABDOMEN/PELVIS: New small FDG avid left paraaortic adenopathy (axial images 148-156). Multiple small moderately FDG avid lymph nodes in the bilateral inguinaland bilateral distal external iliac regions, some of which are more prominentin activity compared to prior, but all favored benign reactive nodes. Unchanged diffusely increased uptake in the spleen, consistent withreactive spleen. Bilateral percutaneous nephrostomy catheters. Cystectomy. SKELETON/EXTREMITIES: New small linear focus of activity across the S5 vertebral body with nodefinite CT correlate, favored a benign sacral insufficiency fracture. No other significant osseous findings. IMPRESSION 1. Persistent active malignancy in the left lower lobe, with the solid component increased in intensity compared to prior. 2. Persistent small active anthony metastases in the prevascular, and rightupper and lower paratracheal regions, stable to modestly increased in sizecompared to prior. 3. New small FDG avid adenopathy in the abdominal left periaorticregion, highly suspicious for active anthony metastasis. 4. No other sites of active metastatic disease. 5. New small linear focus of activity across the S5 vertebral body withno definite CT correlate, favored a benign sacral insufficiency fracture.Please correlate with clinical exam. I have personally reviewed the image(s) and the resident's interpretationand agree with the findings, Ed Barajas MD at 11/05/2023 11:29 AM Thank you for letting us participate in the care of this patient. If youare a health care provider and have any questions regarding this report,please contact the number below. For patients who have questions please contactthe health clinical care coordinator that requested your imaging first. Electronically signed by: Ed Barajas MD, [facility]([phone]), at 11/05/2023 11:29 AM Dianne Jacob APRN IMG PET ORDERABL ES documented in this encounter Visit Diagnoses Diagnosis 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 Malignant neoplasm of lower lobe, bronchus, or lung Metastatic urothelial carcinoma Secondary malignant neoplasm of other urinary organs documented in this encounter Administered Medications Inactive Administered Medications - up to 3 most recent administrations Medication Order MAR Action Action Date Dose Rate Site fludeoxyglucose (F-18) FDG injection 0-20 mCi 0-20 mCi, Intravenous, ONCE PRN, 1 dose, Starting on Fri11/03/23 at 1227, Until Fri11/03/23 at 1225, Per Protocol, Radiology Contrast, Routine Given 11/03/2023 12:25 PM EDT 10.3 mCi Implanted Port documented in this encounter Care Teams Feeder Associate Relationship Specialty Start Date End Date Tavia Ramirez, GUEST SERVICES OFFICER [address] [facility] [place] [address] PCP - General Family Medicine 06/11/22 documented as of this encounter
--- OUTSIDE RECORDS SUMMARY | 2023-11-21 15:53 | XMS_ITS | Clinical Summary ---
Author Organization Formerly [facility] Address [facility] [place] [address] Care Team Providers Care Stretch Press Operator Name Role Phone Tavia Ramirez APRN Primary Care Provider [phone] Allergies No known active allergies Medications Medication Sig Dispensed Refills Start Date End Date Status senna (Senokot) 8.6 mg Tablet Take 1 tablet by mouth daily as needed for Constipation. Active acetaminophen (Tylenol) 500 mg Tablet Take 1,000 mg by mouth every 8 hours as needed for Pain. Active levothyroxine (Synthroid) 75 mcg tabletIndications: Metastatic urothelial carcinoma Take 1 tablet by mouth daily. 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 15 tablet 05/13/2023 Active lactobacillus with pectin 75 million cell -100 mg Capsule Take 1 capsule by mouth daily. 30 capsule 08/10/2023 Active HYDROmorphone (Dilaudid) 2 mg tablet Take 1 tablet by mouth every 6 hours as needed for Pain (As needed for breakthrough pain). 20 tablet 08/10/2023 Active Additional Information Patient not taking.Reported on 08/25/2023 traMADoL 25 mg Tablet Take 25 mg by mouth as needed. 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 08/04/2021 Anemia 04/18/2021 Bilateral hydronephrosis 04/18/2021 Folate deficiency 04/18/2021 Lung mass 04/18/2021 Obstructive uropathy 04/18/2021 Metastatic urothelial carcinoma 03/27/2021 Abnormal thyroid function test 03/27/2021 Encounters Date Type Department Care Team Description 11/18/2023 Telephone Hematology/Oncolog y at [address] [phone] Marci Chen RN Medication Problem 11/17/2023 Telephone Hematology/Oncolog y at [address] [phone] Dianne Jacob APRN 11/13/2023 1:55 PM EDT - 11/13/2023 11:59 PM EDT Hospital [place] [phone] Guillermo Nice MD Obstructive uropathy; Bilateral hydronephrosis Discharge Disposition: Home 11/13/2023 Travel 11/13/2023 [place] [phone] Kris Aguilar MD Obstructive uropathy 11/10/2023 3:00 PM EDT Office Visit Hematology/Oncolog y at [address] [phone] Chase Mckay MD 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; Secondary malignant neoplasm of pleura; Metastatic urothelial carcinoma 11/10/2023 Travel 11/03/2023 11:56 AM EDT - 11/03/2023 11:59 PM EDT Hospital [place] [phone] Dianne Jacob APRN Discharge Disposition: Home 11/03/2023 11:55 AM EDT Hospital [place] [phone] Dianne Jacob APRN 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; Metastatic urothelial carcinoma Discharge Disposition: Home 11/03/2023 11:14 AM EDT - 11/03/2023 11:54 AM EDT Hospital Encounter Hematology [place] [address] 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 Discharge Disposition: Home 11/03/2023 Travel 10/31/2023 Travel 10/16/2023 Telephone Hematology/Oncolog y at [address] [phone] Marci Chen RN 10/03/2023 10:51 AM EDT - 10/03/2023 11:59 PM EDT Hospital [place] [address] Jean Carlos Fenton DO Metastatic urothelial carcinoma; BRITNI (acute kidney injury); Pyelonephritis; Secondary malignant neoplasm of pleura; 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; Obstructive uropathy; Lung mass; Folate deficiency; Bilateral hydronephrosis; Anemia, unspecified type; Abnormal thyroid function test Discharge Disposition: Home 10/02/2023 Travel 09/29/2023 1:30 PM EDT Office Visit Hematology/Oncolog y at [address] [phone] Chase Mckay MD LaRoza, Stephanie A, APRN 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; High risk medication use; Prolonged QT interval; Metastatic urothelial carcinoma 09/29/2023 Travel 09/26/2023 Travel 09/18/2023 10:50 AM EDT - 09/18/2023 11:59 PM EDT Hospital [place] [address] Guillermo Nice MD Metastatic urothelial carcinoma; BRITNI (acute kidney injury); Pyelonephritis; Secondary malignant neoplasm of pleura; 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; Obstructive uropathy; Lung mass; Folate deficiency; Bilateral hydronephrosis; Anemia, unspecified type; Abnormal thyroid function test Discharge Disposition: Home 09/18/2023 Travel 09/13/2023 Travel 08/26/2023 1:00 PM EDT Office Visit Hematology/Oncolog y at [address] [phone] Jose Lange MD Burns, Kimberly A, FIREWORKS ASSEMBLY SUPERVISOR Metastatic urothelial carcinoma 08/25/2023 1:00 PM EDT Office Visit Hematology/Oncolog y at [address] [phone] Chase Mckay MD LaRoza, Stephanie A, FIREWORKS ASSEMBLY SUPERVISOR 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; Metastatic urothelial carcinoma; High risk medication use; Secondary malignant neoplasm of pleura 08/25/2023 Travel from Last 3 Months Immunizations Name Administration Dates Next Due Influenza (Fluzone HD) Quadr ivalent High Dose, Preservative Free 03/20/2021 Social History Tobacco Use Types Packs/Day Years Used Date Smoking Tobacco: Former Cigarettes Q uit: 07/04/2014 Smokeless Tobacco: Never Alcohol Use Standard Drinks/Week Comments Not Currently 0 (1 standard drink = 0.6 oz pur e alcohol) [facility] Utilities Answer Date Recorded In the past 12 months has e electric, gas, oil, or water [email or web address] threatened to shut off services in your [...] place to sleep or slept in a care home (including now)? No 08/08/2023 DH IPV Inpatient [...] on file Sexual Orientation Not on file Last Filed Vital Signs Vital Sign Reading [...] Mass Index 25.8 11/10/2023 2:55 PM EDT Plan of Treatment Upcoming Encounters Date Type Department Care Team (Late st Contact Info) Description 12/08/2023 3:30 PM EDT Office Visit Hematology/Oncology at [address] [phone] Chase Mckay MD [facility] [place] [address] Health Maintenance Due Date Last Done Comments CT Colonography 1951 Colonoscopy 1951 Colorectal Cancer Screening 1950 FIT DNA 1951 FIT 1951 Sigmoidoscopy (10 year) with FIT yearly 1951 Sigmoidoscopy 1950 Hepatitis C Screening 07/04/1969 Tdap adult 07/04/1970 Tetanus vaccine 07/04/1970 Breast Cancer Share Decision Needed 1991 Breast Cancer screening 1991 Zoster vaccine (1 of 2) 07/04/2001 Bone Density Scan 07/04/2016 Pneumoccocal Vaccine: 65+ (1 of 1 - PCV) 07/04/2016 Covid-19 Vaccine (2 - 2022-2 4 season) 2022 03/02/2021 Influenza (Flu) vaccine (1 o f 1 - Influenza standard series) 12/28/2023 03/20/2021 Diabetes Screening (HgbA1C o r Glucose) Discontinued 11/03/2023, 08/19/2023, 08/10/2023, Additional history exists Medical Devices Implanted Type Area Liquified Natural Gas Technician Device Identifier Shelf Expiration Date Model / Serial / Lot Port Infusion 8fr Cath Power Lp Ct Plastic Dignity ([id number])-04/02 Implanted:Qty: 1 on 04/02/2021 by Yuval Sinclair PA IMPLANTS [employer] - [employer] [place] 09/25/2024 [id number] / / [id number] Description:rij Procedures Procedure Name Priority Date/Time Associated Diagnosis Comments IR NEPHROGRAM/NEPHROSTOM Y TUBE EXCHANGE BILATERAL Routine 11/13/2023 3:54 PM EDT Obstructive uropathy ECG SCAN 11/10/2023 12:00 AM EDT NM PET CT SKULL BASE TO MID-THIGH ([facility]) Routine 11/03/2023 1:26 PM EDT 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 Metastatic urothelial carcinoma POCT GLUCOSE Routine 11/03/2023 12:05 PM EDT DIFFERENTIAL, AUTOMATED Routine 11/03/2023 11:27 AM EDT 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 HEMOGRAM Routine 11/03/2023 11:27 AM EDT 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 COMPREHENSIVE METABOLIC PANEL (NON-FASTING) Routine 11/03/2023 11:27 AM EDT 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 HC VENIPUNCTURE Routine 11/03/2023 11:27 AM EDT 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 IR NEPHROSTOMY TUBE EXCHANGE LEFT Routine 10/03/2023 12:00 PM EDT Metastatic urothelial carcinoma BRITNI (acute kidney injury) Pyelonephritis 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 Anatomical Region Laterality Modality X-Ray Angiograph y Narrative 11/13/2023 3:50 PM EDT Preoperative Diagnosis: ? Chronic indwelling nephrostomy tubes for routine change. Postoperative Diagnosis: ?? Same Procedure Performed: Over the wire exchange of nephrostomy tubes Estimated Blood Loss: None Fluoroscopy time: Please see [facility] IR technologist record for procedural dose/time Operators: [...] nephrostomy tube as above. ??Note, pt prefers [place] [facility] ??Neph tubes due to added length I, the attending Interventional Radiologist performed the entire procedure. Guillermo Nice MD IMG IR ORDERABLES * Scan Doc: ECG (11/10/2023 12:00 AM EDT) Only the most recent of2 resultswithin the time period is included. Narrative 11/10/2023 12:00 AM EDT Ordered by an unspecified provider. Scanning Provider MEDIA MGR SCAN EXT O RDR/RSLT * NM PET CT Skull Base to Mid-thigh (11/03/2023 1:26 PM EDT) WORKSTATION ID [id number] DH RAD Anatomical Region Laterality Modality Positron Emissio [...] who have questions please contact the health small animal caretaker that requested your imaging first. ? Narrative 11/05/2023 11:29 AM EDT EXAMINATION: NM PET CT STANDARD SKULL BASE TO MID-THIGH CLINICAL HISTORY: NSCLC Metastatic non-small cell lung cancer subsequent treatment evaluation. Also history of bladder cancer. C34.32, Malignant neoplasm of lower lobe, left bronchus or lung - C79.10, Secondary malignant neoplasm of unspecified urinary organs. TECHNIQUE: Following IV injection of 56-okujjy-9-deoxyglucose (FDG) a standard uptake of approximately 60 [...] urinary organs. TECHNIQUE: Following IV injection of 19-dsxrfd-5-deoxyglucose (FDG) astandard uptake of approximately 60 minutes, [...] patients who have questions please contactthe health small animal caretaker that requested your imaging first. Dianne Jacob APRN IMG PET ORDERABL ES * POCT Glucose (11/03/2023 12:05 PM EDT) [facility] POC Glucose 101 65 - 199 mg/dL [facility] Comment: Supplemental ranges: <140 mg/dL before meals <180 mg/dL all other times of the day Blood 11/03/2023 12:0 5 PM EDT 11/03/2023 12:05 PM EDT Dianne Jacob FIREWORKS ASSEMBLY SUPERVISOR POINT OF CARE TE ST ORDERABLES [facility] [place] [place] [address] * (ABNORMAL) Hemogram (11/03/2023 11:27 AM EDT) [facility] WBC 9.3 4.0 - 9.5 x10(3)/[facility] RBC 5.08 4.00 - 5.21 x10(6)/[facility] Hemoglobin 12.1 11.7 - 15.5 g/dL [facility] Hematocrit 38.4 35.7 - 45.8 % [facility] MCV 75.6(L) 82.6 - 94.[address] [facility] MCH 23.8(L) 27.1 - 32.[address] [facility] MCHC 31.5(L) 31.7 - 35.0 g/dL [facility] Platelets 620(H) 145 - 357 x10(3)/[facility] RDWSD 43.8 37.0 - 46.[address] [facility] RDWCV 16.3(H) 11.5 - 14.1 % [facility] MPV 9.8 7.6 - 12.[address] [facility] nRBC % Auto 0.0 % [facility] nRBC Abs Auto 0.000 0.000 - 0.000 x10(3)/[facility] Blood 11/03/2023 11:2 7 AM EDT 11/03/2023 11:57 AM EDT Narrative Resulting Agency Comment Spec In Lab Dianne Jacob FIREWORKS ASSEMBLY SUPERVISOR HEMATOLOGY ORDER [place] Performing Organization Address City/State/[facility] Co de Phone Number [facility] [place] [address] * (ABNORMAL) Differential, Automated (11/03/2023 11:27 AM EDT) Neutrophils % 68.6 % [facility] Neutr Abs (ANC) 6.40(H) 1.70 - 6.10 x10(3)/mc L [facility] Lymphocytes % 15.8 % [facility] Lymphocytes Abs 1.5 0.9 - 3.2 x10(3)/mc L [facility] Monocytes % 8.5 % [facility] Monocyte Abs 0.8 0.3 - 0.9 x10(3)/mc L [facility] Eosinophils % 5.8 % [facility] Eosinophils Abs 0.5(H) 0.0 - 0.4 x10(3)/mc L [facility] Basophils % 0.6 % [facility] Basophils Abs 0.1 0.0 - 0.1 x10(3)/mc L [facility] Immature Gran % 0.70 % [facility] Comment: Immature granulocytes(IG's)percentage and absolute count will include metamyelocytes, myelocytes, and promyelocytes. Blood smears from CBCs yielding IG's will be scanned manually for concordance. If this scan disagrees with the automated IG or if promyelocytes are noted, a manual differential will be performed. [place] Gran Abs 0.07(H) 0.00 - 0.04 x10(3)/mc L [facility] Blood 11/03/2023 11:2 7 AM EDT 11/03/2023 11:57 AM EDT Narrative Resulting Agency Comment Spec In Lab Dianne Jacob APRN HEMATOLOGY ORDER [place] [facility] [place] [address] * (ABNORMAL) Comprehensive metabolic panel (non-fasting) (11/03/2023 11:27 AM EDT) Glucose Lvl 99 65 - 199 mg/dL [facility] Comment:Diabetes: >=200 mg/d L plus symptoms BUN 25(H) 8 - 18 mg/dL [facility] Creatinine 2.03(H) 0.70 - 1.20 mg/dL [facility] Sodium 139 135 - 145 mmol/L [facility] Potassium 5.0 3.5 - 5.0 mmol/L [facility] Comment: Please note: ??Patients with WBC >100,000 may have falsely elevated Potassium levels. ??For accurate Potassium quantification in these patients send serum separator tube (gold top) for subsequent determinations. ??Contact the Clinical Chemistry Laboratory if there are any questions. Chloride 109(H) 98 - 107 mmol/L [facility] CO2 20(L) 22 - 31 mmol/L [facility] Anion Gap 10 5 - 15 mmol/L [facility] Calcium 9.4 8.5 - 10.5 mg/dL [facility] Total Protein 8.2(H) 6.1 - 8.0 g/dL [facility] Albumin 4.0 3.2 - 5.2 g/dL [facility] AST 10 0 - 30 unit/L [facility] ALT 7 0 - 30 unit/L [facility] Alk Phos 108(H) 35 - 105 unit/L [facility] Total Bilirubin 0.8 0.2 - 1.3 mg/dL [facility] Estimated GFR 26(L) >=60 mL/min/1. 73 m?? [facility] Comment: This patient's estimated GFR [...] Agency Comment Spec In Lab Dianne Jacob FIREWORKS ASSEMBLY SUPERVISOR CHEMISTRY ORDERA BLES [facility] [place] [address] * IR Nephrostomy Tube Exchange Left (10/03/2023 12:00 PM EDT) Anatomical Region Laterality Modality X-Ray Angiograph y Narrative 10/03/2023 11:55 AM EDT Preoperative Diagnosis: ? Chronic indwelling left nephrostomy tube ?? damaged and pulled back. Postoperative Diagnosis: ?? Same Procedure Performed: Over the wire exchange of nephrostomy tube Estimated Blood Loss: None Fluoroscopy time: Please see [facility] IR technologist record for procedural dose/time Operators: [...] the entire procedure. Jean Carlos Fenton DO IMG IR ORDERABLES * Scan Doc: Lab (09/29/2023 12:00 AM EDT) Only the most recent of2 resultswithin the time period is included. Narrative 09/29/2023 12:00 AM EDT Ordered by an unspecified provider. 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 No Per policy, patient may rece kendrick all applicable life support PRE arrest: Acknowledged * Attempt Cardiopulmonary Resuscitation - Inpatient Date Activated Date Inactivated Comments 11/13/2023 2:46 PM 11/13/2023 2:49 PM Question Answer Comments Code Status decision made by: Patient Content of discussion: per discussion * Attempt Cardiopulmonary Resuscitation - Inpatient Date Activated Date Inactivated Comments 10/03/2023 11:09 AM 10/04/2023 4:40 AM Question Answer Comments Code Status decision made by: Patient * Do NOT Attempt CPR - Inpatient Date Activated Date Inactivated Comments 09/18/2023 11:20 AM 09/19/2023 4:36 AM Question Answer Comments Code Status decision made by: Patient Independent of Code Status d ecision, are there any PRE Arrest limitations (Intubation, Pressors, Cardioversion / Pacing, etc)? Yes PRE Arrest Intubation Permitted? No * Do NOT Attempt CPR - Inpatient Date Activated Date Inactivated Comments 08/07/2023 11:16 AM 08/10/2023 1:01 PM Question Answer Comments Code Status decision made by: Patient Content of discussion: DNR DNI, ok for icu/press ors Independent of Code Status d ecision, are there any PRE Arrest limitations (Intubation, Pressors, Cardioversion / Pacing, etc)? Yes PRE Arrest Intubation Permitted? No Care Teams Stretch Press Operator Relationship Specialty Start Date End Date Tavia Ramirez, FIREWORKS ASSEMBLY SUPERVISOR [facility] [place] [address] PCP - General Family Medicine 06/11/22
--- OUTSIDE RECORDS SUMMARY | 2023-11-21 15:53 | XMS_ITS | Continuity of Care Document ---
Author Organization [place] [facility], [facility] Address [address] [place] [address] Assessment No assessment recorded. Plan of Treatment Reminders Order Date Submit Date Provider Last Modified By Organization Details Last Modified Time Details Appointments Follow Up 30 2023 01:10P Jhony RAMIERZ Not available Not available Not available Lab influenza virus A + B + SARS-CoV- 2 (COVID19) Ag panel, rapid IA, upper respirato ry specimen 2023 024 [email or web address] [facility], [address] [place] [address] Street, [address], [place], [address], 10/15/2023 12:22:28 rapid strep group A, throat 2023 024 [id number] [facility], [address] [place] [address] Street, [address], [place], [address], 10/15/2023 12:19:34 Referral None recorded. Procedures None recorded. Surgeries None recorded. Imaging XR, chest, 2 view - cough, lung CA patient 2023 024 [facility], [address], [place], [address], 10/15/2023 15:19:45 Medication Orders Augmentin 875 mg-125 mg tablet 2023 024 [facility], [address], [place], [address], 10/15/2023 13:52:51 azithromy alvina 250 mg tablet 2023 024 [facility] [address], [address], [place], [address], 10/15/2023 13:52:51 Patient TargetsNo targets recorded. Patient InstructionsNo instructions recorded. Reason for Referral None Reported. Results Created Date Observation Date Name Description Value Unit Range Abnormal Flag LastModifiedBy Organization Detail LastModifiedTime 10/15/19 24 10/15/2023 rapid strep group A, throa t Strep negati ve Not Available [address] [place] [address], [phone], 10/15/2023 11:57:54 10/15/19 24 10/15/2023 influ danielle virus A + B + SARS- CoV-2 (COVI D19) Ag panel , rapid IA, upper respi rator y speci men Influenza A negati ve Not Available [address] [place] [address], [address], 10/15/2023 11:57:46 10/15/19 24 10/15/2023 influ danielle virus A + B + SARS- CoV-2 (COVI D19) Ag panel , rapid IA, upper respi rator y speci men Influenza B negati ve Not Available [address] [place] [address], [address], 10/15/2023 11:57:46 10/15/19 24 10/15/2023 influ danielle virus A + B + SARS- CoV-2 (COVI D19) Ag panel , rapid IA, upper respi rator y speci men SARS-COV-2 negati ve Not Available [address] [place] [address], [address], 10/15/2023 11:57:46 10/15/19 24 10/15/2023 XR, chest [...] thicke amelie. Blunte d latera l and ux engineer ior costop hrenic angles . Heart/ Medias [...] by: Flo moreira On 2023 15:18: 17 [email or web address] [facility] [address], [place], [address], 10/15/2023 15:30:01 Result Notes None recorded. Problems Name Status Onset Date Resolution Date Notes Provider Name and Address Organization Details Recorded Time Acute kidney injury Active [address], [place], [address] , [facility], [facility]. 4 13:26:07 Malignant neoplasm of urinary organ Active 2020 metastatic bladder cancer diagnosed in 2020 with renal failure status post bilateral nephrostomy tubes present. [address], [place], [address] , [facility] 4 13:41:31 Abdominal pain Completed 202209/14/2022 Problem Code: R10.9; Problem Code Type: ICD-10; Not Available [facility] 05:59:25 Counseling Completed 202209/14/2022 08/15/2022 - Comments only - Tavia Ramirez PIZZA MAKER - now established on my panel. will follow up as needed. has multiple specialists following her and want to decrease need for further health appointments unless necessary for her to come in. Problem Code: Z71.89; Problem Code Type: ICD-10; Not Available [facility] 05:59:25 Urostomy present Active 2022 PHIL delacruz, [facility] 13:42:16 Pneumonia Completed 202106/10/2022 Problem Code: J18.9; Problem Code Type: ICD-10; Not Available [facility] 3 05:59:25 Total nephrectomy Completed 202201/22/2023 Problem Code: Z90.5; Problem Code Type: ICD-10; Not Available [facility] 05:59:25 Malignant neoplasm of urinary bladder Completed 202006/10/2022 Problem Code: C67.9; Problem Code Type: ICD-10; Not Available [facility] 05:59:26 Blood in urine Completed 202208/15/2022 Problem Code: R31.9; Problem Code Type: ICD-10; Not Available [facility] 05:59:26 Disorder of lung Completed 202001/22/2023 Problem Code: J98.4; Problem Code Type: ICD-10; Not Available [facility] 3 05:59:26 Leukocytosis Active [address], [place], [address] , [facility] 4 13:26:05 Pyelonephriti s Active [address], [place], [address] , [facility] 4 13:26:03 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 Started on pembrolizumab in March 2021. [address], [facility] [address] , [facility] 4 13:41:59 Acute urinary tract infection Active [address], [facility] [address] , [facility] 4 13:40:42 Abnormal urine odor Active [address], [facility] [address] , [facility] 4 13:41:08 Notes:*Problem Name: Primary adenocarcinoma of lung, stage 3 left *Problem Status: active *Comments: *Problem Code: C34.90 *Problem Code Type: ICD-10 *Note Date: 03/02/2021 Problem Notes None recorded. Medical Equipment None Reported. [...] DAY NEEDED FOR PAIN active HELD BY [facility], GIVEN DILAUDID PO if needed. hasn;t taken. [...] Not Available pembroliz umab 07/[address] [facility] Not Available Not Available Not Available Keytruda 25 mg/mL intraveno us solution Infuse every 3 weeks through [facility] up here 07/07 completed Not Available Not Available Not Available Krazati 200 mg tablet Take 2 tablets every day by oral route. active Not Available Not Available No t Available Vitals Date Recorded Body height Body mass index (BMI) Body weight Body temperature Oxygen saturation Oxygen saturation in Arterial blood by Pulse oximetry Heart rate Systolic blood pressure Diastolic blood pressure Provider Name and Address Organization Details Last Updated DateTime 4 165.1 cm 25.6 kg/m2 93993.2 2 g 98.6 [degF] 96 % 96 % 95 /min 120 mm[Hg] 66 mm[Hg] CONRAD Noriega [place] [facility] 11:56:52 Social History Question Answer Notes LastModified by Organizat ion Details LastModified Time Tobacco Smoking Status Former Smoker Quit 2014 RUSS SANCHEZ RN [place], [place] - [facility] 07/21/2023 12:51:45 When Did You Quit Smoking? 6-10yearssi [email or web address] [email or web address] Information not available 07/21/2023 What Was The Date Of Your Most Recent Tobacco Screening? 11/21/2023 Information not available 11/21/2023 At What Age Did You Start Smoking Tobacco? 18 Information not available 07/21/2023 How Much Tobacco Do You Smoke? No Information not available 07/21/2023 Has Tobacco Cessation Counseling Been Provided? No [email or web address] Information not available 07/08/2023 Do You Or Have You Ever Used Any Other Forms Of Tobacco Or Nicotine? No [email or web address] Information not available 07/08/2023 Sex: Female Functional [...] 50 mcg/0.25mL dose 03/02/2021 completed Not Available [facility] 03/07/2023 06:13:54 Past Encounters Encounter ID Performer Location Encounter Start Date Encounter Closed Date Diagnosis/Indication Diagnosis SNOMED-CT Code [id number] TAVIA MAGUIRE PA-C [facility] [address] [address] 10/15/2023 11:37:25 10/15/2023 12:19:17 Cough [id number] Health Concerns Section Related Observation LastModified by Organization Detai ls LastModified Time None Recorded Concern Status LastModified by Organization Details LastModified Time None Recorded Payers Encounter Date Sequence Insurance Name Policy Number Policy Issa Covered Member ID Issa Member ID Guarantor Name 10/15/2023 1 [place] [employer] Barb Bullard [id number] 1 Barb Bullard Notes Date Note Type Note Provider Name and Address Organization Details Recorded Time 10/15/2023 text/html HPI Notes: Maurizio ta is [...] denies ear pain headache or sinus pain. [address], [place], [address], [facility]. 10/15/2023 13:53:14 OBGyn Episode No OBEpisode recorded.
--- OUTSIDE RECORDS SUMMARY | 2023-11-21 15:53 | XMS_ITS | Encounter Summary ---
[place] [address] Care Team Providers Care Computer Repair Instructor Name Role Phone Tavia Ramirez APRN Primary Care Provider [phone] Reason for Visit * Diagnostic Test (Routine) - Closed Specialty Diagnoses / Procedures Referred By Contac t Referred To Contact Radiology Diagnoses 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 Metastatic urothelial carcinoma Procedures NM PET CT Skull Base to Mid-thigh Dianne Jacob APRN [address] [place] [address] [place] [address] [place] [address] Referral ID Status Reason Start Date Expiration Date V isits Requested Visits Authorized [id number] Closed Specialty Service Requested 09/29/2023 03/30/2025 1 1 Encounter Details Date Type Department Care Team (Late st Contact Info) Description 11/03/2023 11:56 AM EDT - 11/03/2023 11:59 PM EDT Hospital Encounter [place] [address] Dianne Jacob UNDERLINER [address] [place] [address] DR HEMATOLOGY AND ONCOLOGY [place], [place] [id number] Discharge Disposition: Home Social History Tobacco Use Types Packs/Day Years Used Date Smoking Tobacco: Former Cigarettes Q uit: 07/04/2014 Smokeless Tobacco: Never Alcohol Use Standard Drinks/Week Comments Not Currently 0 (1 standard drink = 0.6 oz pur e alcohol) [facility] Utilities Answer Date Recorded In [...] place to sleep or slept in a fpc (including now)? No 08/08/2023 IPV Inpatient Questions Answer Date Recorded Does [...] 3:30 PM EDT Office Visit Hematology/Oncology at [address] [address] Chase Mckay MD [facility] DR H[place]AT[place]Y [place] [address] documented as of this encounter Procedures Procedure Name Priority Date/Time Associated Diagnosis Comments NM PET CT SKULL BASE TO MID-THIGH ([facility]) Routine 11/03/2023 1:26 PM EDT 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 Metastatic urothelial carcinoma POCT GLUCOSE Routine 11/03/2023 12:05 PM EDT documented in this encounter Results * POCT Glucose (11/03/2023 12:05 PM EDT) POC Glucose 101 65 - 199 mg/dL [facility] Comment: Supplemental ranges: <140 mg/dL before meals <180 mg/dL all other times of the day Blood 11/03/2023 12:0 5 PM EDT 11/03/2023 12:05 PM EDT Dianne Jacob UNDERLINER POINT OF CARE [place] [address] documented in this encounter Visit Diagnoses Not on filedocumented in this encounter Care Teams Computer Repair Instructor Relationship Specialty Start Date End Date Tavia Ramirez, [place] [address] PCP - General Family Medicine 06/11/22 documented as of this encounter
--- OUTSIDE RECORDS SUMMARY | 2023-11-21 15:53 | XMS_ITS | Continuity of Care Document ---
Author Organization [place] [facility], [facility] Address [address] [place] [address] Assessment No assessment recorded. Plan of Treatment Reminders Order Date Submit Date Provider Last Modified By Organization Details Last Modified Time Details Appointments Follow Up 2023 01:10P M TAVIA RAMIREZ Not available Not available Not available Lab urinalysi s, dipstick 2023 024 [email or web address] [facility], [address], [place], [address], 08/22/2023 14:50:37 culture, urine + sensitivi ty - collected from nephrosto my tubes 2023 024 [facility] (Registration ), [address] [place] [address] , [place], [address], 08/29/2023 07:26:00 Referral None recorded. Procedures None recorded. Surgeries None recorded. Imaging None recorded. Medication Orders None recorded. Patient TargetsNo targets recorded. Patient Instructions Encounter Date Encounter Id Patient Instructions Last Modified By Organization Details Last Modified Time 08/22/2023 [id number] Nice to see you today Barb! Glad [...] Range Abnormal Flag LastModifiedBy Organization Detail LastModifiedTime 08/22/19 24 08/22/2023 urina lysis , dipst ick Leukocytes Small Not Available [facility] [address], [place], [address], 08/22/2023 13:40:18 08/22/19 24 08/22/2023 urina lysis , dipst ick Nitrite negati ve Not Available [facility] [address], [place], [address], 08/22/2023 13:40:18 08/22/19 24 08/22/2023 urina lysis , dipst ick Urobilinogen .2 Not Available [facility] [address], [place], [address], 08/22/2023 13:40:18 08/22/19 24 08/22/2023 urina lysis , dipst ick Protein 2000+ Not Available [facility] [address], [place], [address], 08/22/2023 13:40:18 08/22/19 24 08/22/2023 urina lysis , dipst ick pH 5.0 Not Available [facility] [address], [place], [address], 08/22/2023 13:40:18 08/22/19 24 08/22/2023 urina lysis , dipst ick Blood Large Not Available [facility] [address], [place], [address], 08/22/2023 13:40:18 08/22/19 24 08/22/2023 urina lysis , dipst ick Specific Milan 1.025 Not Available [facility] [address], [place], [address], 08/22/2023 13:40:18 08/22/19 24 08/22/2023 urina lysis , dipst ick Ketone Negati ve Not Available [facility] [address], [place], [address], 08/22/2023 13:40:18 08/22/19 24 08/22/2023 urina lysis , dipst ick Bilirubin Negati ve Not Available [facility] [address], [place], [address], 08/22/2023 13:40:18 08/22/19 24 08/22/2023 urina lysis , dipst ick Glucose Negati ve Not Available [facility] [address], [place], [address], 08/22/2023 13:40:18 08/22/19 24 08/22/2023 urina lysis , dipst ick Appearance Cloudy Not Available [facility] [address], [place], [address], 08/22/2023 13:40:18 08/22/19 24 08/22/2023 urina lysis , dipst ick Color Dark Yellow Not Available [facility] [address], [place], [address], 08/22/2023 13:40:18 10/15/19 24 10/15/2023 XR, chest , 2 [...] thicke amelie. Blunte d latera l and stitchdowns toe former ior costop hrenic angles . Heart/ Medias [...] by: Flo moreira On 2023 15:18: 17 [email or web address] [facility] [address], [place], [address], 10/15/2023 15:30:01 Result Notes None recorded. Problems Name Status Onset Date Resolution Date Notes Provider Name and Address Organization Details Recorded Time Acute kidney injury Active [address], [place], [address] , [facility] 4 13:26:07 Malignant neoplasm of urinary organ Active 2020 metastatic bladder cancer diagnosed in 2020 with renal failure status post bilateral nephrostomy tubes present. [address], [place], [address] , [facility]. 4 13:41:31 Abdominal pain Completed 202209/14/2022 Problem Code: R10.9; Problem Code Type: ICD-10; Not Available [facility] 3 05:59:25 Counseling Completed 202209/14/2022 08/15/2022 - Comments only - Tavia Ramirez BOTTOM WORKER - now established on my panel. will follow up as needed. has multiple specialists following her and want to decrease need for further health appointments unless necessary for her to come in. Problem Code: Z71.89; Problem Code Type: ICD-10; Not Available [facility], [facility] 3 05:59:25 Urostomy present Active 2022 PHIL delacruz, [facility] 4 13:42:16 Pneumonia Completed 202106/10/2022 Problem Code: J18.9; Problem Code Type: ICD-10; Not Available [facility], [facility] 3 05:59:25 Total nephrectomy Completed 202201/22/2023 Problem Code: Z90.5; Problem Code Type: ICD-10; Not Available [facility], [facility] 3 05:59:25 Malignant neoplasm of urinary bladder Completed 202006/10/2022 Problem Code: C67.9; Problem Code Type: ICD-10; Not Available [facility], [facility] 3 05:59:26 Blood in urine Completed 202208/15/2022 Problem Code: R31.9; Problem Code Type: ICD-10; Not Available [facility], [facility] 3 05:59:26 Disorder of lung Completed 202001/22/2023 Problem Code: J98.4; Problem Code Type: ICD-10; Not Available [facility], [facility] 3 05:59:26 Leukocytosis Active [address], [place], [address] , [facility] 4 13:26:05 Pyelonephriti s Active [address], [place], [address] , [facility] 4 13:26:03 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 Started on pembrolizumab in March 2021. [address], [place], [address] , [facility] 4 13:41:59 Acute urinary tract infection Active [address], [place], [address] , [facility] 4 13:40:42 Abnormal urine odor Active [address], [place], [address] , [facility] 13:41:08 Notes:*Problem Name: Primary adenocarcinoma of lung, [...] DAY NEEDED FOR PAIN active HELD BY [facility], GIVEN DILAUDID PO if needed. hasn;t taken. [...] Not Available pembroliz umab 07/07 completed Per [facility] Not Available Not Available Not Available Keytruda 25 mg/mL intraveno us solution Infuse every 3 weeks through [facility] up here 07/07 completed Not Available [...] Updated DateTime 4 165.1 cm 25.6 kg/m2 23846.2 2 g 98.2 [degF] 84 /min 18 /min 114 mm[Hg] 62 mm[Hg] RUSS SANCHEZ RN [facility] 13:32:05 Social History Question Answer Notes LastModified by Organizat ion Details LastModified Time Tobacco Smoking Status Former Smoker Quit 2014 RUSS SANCHEZ RN [facility], [facility] 07/21/2023 12:51:45 When Did You Quit Smoking? 6-10yearssi [email or web address] Information not available 07/21/2023 What Was The Date Of Your Most Recent Tobacco Screening? 11/21/2023 Information not available 11/21/2023 At What Age Did You Start Smoking Tobacco? 18 Information not available 07/21/2023 How Much Tobacco Do You Smoke? No Information not available 07/21/2023 Has Tobacco Cessation Counseling Been Provided? No [email or web address] Information not available 07/08/2023 Do You Or Have You Ever Used Any Other Forms Of Tobacco Or Nicotine? No [email or web address] Information not available 07/08/2023 Sex: Female Functional [...] 50 mcg/0.25mL dose 03/02/2021 completed Not Available [facility] 03/07/2023 06:13:54 Past Encounters Encounter ID Performer Location Encounter Start Date Encounter Closed Date Diagnosis/Indication Diagnosis SNOMED-CT Code [id number] TING CROCKETT [facility] [place] [address] [place] [address] 08/22/2023 13:12:54 08/22/2023 14:07:29 Acute urinary tract infection 089394102 Malignant neoplasm of urinary organ [id number] Pyelonephritis 47861637 Health Concerns Section Related Observation LastModified by Organization Detai ls LastModified Time None Recorded Concern Status LastModified by Organization Details LastModified Time None Recorded Payers Encounter Date Sequence Insurance Name Policy Number Policy Issa Covered Member ID Issa Member ID Guarantor Name 08/22/2023 1 [place] [employer] Barb Bullard [id number] Barb Bullard Notes Date Note Type Note Provider Name and Address Organization Details Recorded Time 08/22/2023 text/html HPI Notes: Barb is a pleasant 73-year-old female here today for a hospital discharge follow-up. Follow up [facility] admitted 08/06 - 08/09 - acute kidney injury/pyelonephr itis. Nephrostomy tubes clogged again (same as in June per patient, thinks they never truly cleared). Given ABX; need urine today (says she just had bloodwork done on Friday by [facility] oncology - will check orders/results) [facility] put tramadol on hold, pt was given PO Dilaudid x5 days, she says she has been fine with Tylenol for pain so is not using the Dilaudid. Feeling much better, more energy no fever/chills, no malaise TAVIA RAMIREZ, [address], [place], [address], [facility]. 10/09/2023 20:19:46 OBGyn Episode No OBEpisode recorded.
--- OUTSIDE RECORDS SUMMARY | 2023-11-21 15:53 | XMS_ITS | Encounter Summary ---
Author Organization [facility] Address [facility] [address] Care Team Providers Care Cook Cold Meat Name Role Phone James Tavia Foster APRN Primary Care Provider [phone] Encounter Details Date Type Department Care Team (Latest Contact Info) Description 11/03/2023 Travel Social History Tobacco Use Types Packs/Day Years Used Date Smoking Tobacco: Former Cigarettes Q uit: 07/04/2014 Smokeless Tobacco: Never Alcohol Use Standard Drinks/Week Comments Not Currently 0 (1 standard drink = 0.6 oz pur e alcohol) [facility] Utilities Answer Date Recorded In the [...] place to sleep or slept in a intermediate (including now)? No 08/08/2023 DH IPV Inpatient [...] 3:30 PM EDT Office Visit Hematology/Oncology at [address] [address] Chase Mckay MD [facility] DR HEMATOLOGY [place] [address] documented as of this encounter Visit Diagnoses Not on filedocumented in this encounter Care Teams Cook Cold Meat Relationship Specialty Start Date End Date Tavia Ramirez [place] [address] [place] [address] PCP - General Family Medicine 06/11/22 documented as of this encounter
--- OUTSIDE RECORDS SUMMARY | 2023-11-21 15:54 | XMS_ITS | Encounter Summary ---
[place] [address] Care Team Providers Care Battery Test Engineer Name Role Phone James Tavia Foster APRN Primary Care Provider [phone] Reason for Referral * Diagnostic Test (Routine) - Closed Specialty Diagnoses / Procedures Referred By Contac t Referred To Contact Radiology Diagnoses 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 Procedures NM PET CT Skull Base to Mid-thigh Chase Mckay MD [facility] HEMATOLOGY [place] [address] [place] [address] Referral ID Status Reason Start Date Expiration Date V isits Requested Visits Authorized [id number] Closed Specialty Service Requested 07/21/2023 01/20/2025 1 1 Reason for Visit * Diagnostic Test (Routine) - Closed Specialty Diagnoses / Procedures Referred By Contac t Referred To Contact Radiology Diagnoses 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 Procedures NM PET CT Skull Base to Mid-thigh Chase Mckay MD [facility] HEMATOLOGY [place] [address] [place] [address] Referral ID Status Reason Start Date Expiration Date V isits Requested Visits Authorized [id number] Closed Specialty Service Requested 07/21/2023 01/20/2025 1 1 Encounter Details Date Type Department Care Team (Late st Contact Info) Description 08/19/2023 10:57 AM EDT - 08/19/2023 11:59 PM EDT Hospital Encounter Nuclear Medicine at [facility] [place] [address] Chase Mckay MD [facility] HEMATOLOGY [place] [address] 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; Secondary malignant neoplasm of pleura Discharge Disposition: Home Social History Tobacco Use Types Packs/Day Years Used Date Smoking Tobacco: Former Cigarettes Q uit: 07/04/2014 Smokeless Tobacco: Never Alcohol Use Standard Drinks/Week Comments Not Currently 0 (1 standard drink = 0.6 oz pur e alcohol) [facility] Utilities Answer Date Recorded In the past 12 months has th e [employer], gas, oil, or water [employer] threatened to shut off services in your [...] place to sleep or slept in a custodial (including now)? No 08/08/2023 DH IPV Inpatient [...] Sig Dispensed Refills Start Date End Date lactobacillus with pectin 75 million cell -100 [...] by mouth daily as needed for Constipation. amoxicillin-clavulan ate (Augmentin) 500-125 mg tablet Take 1 tablet by mouth every 12 hours. 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 ??Since prior study, there has been decreased burden of disease. This is evidenced by substantial decrease in soft tissue component and avidity of the left lower mass, now this lesion is mostly necrotic with a air-fluid level. Slight decrease in adenopathy in the mediastinum particularly subcarinal station. Slight decrease in indeterminate bilateral pleural soft tissue thickening. 2. ??There remains bilateral patchy subpleural opacities, which may represent disease versus inflammatory changes/fibrosis, and could be treatment related. 3. ??Diffusely increased uptake in the bone marrow and spleen, likely reactive. 4. ??Mild esophagitis. Thank you for letting us participate in the care of this patient. ??If you are a health care provider and have any questions regarding this report, please contact the number below. ??For patients who have questions please contact the health insurance healthcare consultant that requested your imaging first. ? Narrative 08/21/2023 9:14 AM EDT EXAMINATION: NM PET CT STANDARD SKULL BASE TO MID-THIGH CLINICAL HISTORY: Non-small cell lung cancer, assess treatment response 73 yo with advanced bladder cancer (with a CR on immunotherapy) and then a separate lung cancer on targeted therapy now. ??Restaging C34.32, Malignant neoplasm of lower lobe, left bronchus or lung - C78.2, Secondary malignant neoplasm of pleura TECHNIQUE: Following IV injection of 87-ywcdct-2-deoxyglucose (FDG) a standard uptake of approximately 60 minutes, a noncontrast CT scan followed by a PET scan were acquired from the base of the skull to mid thighs. The noncontrast CT was used for anatomic localization and photon attenuation correction of the PET scan. Blood glucose level: 98 (mg/dL) FDG dose: 10.2 mCi COMPARISON: FDG PET/CT 03/07/2023, 10/10/2022 FINDINGS: HEAD AND NECK: BRAIN AND EXTRA-AXIAL SPACES (WHERE INCLUDED): No abnormal uptake. ORBITS: No abnormal uptake. PARANASAL SINUSES: No abnormal uptake. MASTOIDS: No abnormal uptake. AERODIGESTIVE TRACT: No abnormal uptake. SALIVARY GLANDS: No abnormal uptake. THYROID: No abnormal uptake. VASCULATURE: No abnormal uptake. Vascular calcifications of the right greater than left carotid bulbs. LYMPH NODES: No abnormal uptake. THORAX: LUNGS: The dominant mass in the left lower lobe has decreased in uptake and soft tissue components since prior, currently majority of which is a centrally necrotic component measuring approximately 6.2 x 3.7 cm, with SUVmax up to 7.5. Air-fluid level within this component, previously completely fluid. Mass extends to the left infrahilar region as before. Additional smaller subpleural groundglass opacities, such as in the right lower lobe (image 78), similar to most recent prior, and new from more remote prior, given persistence, probably representing additional sites of disease although treatment-related scarring is also in the differential. Bibasilar linear atelectasis and subpleural atelectasis. Background moderate centrilobular emphysema. PLEURA: Bilateral pleural soft tissue thickening, similar slightly decreased in activity since prior, may be related to pleural metastasis. AIRWAYS: No abnormal uptake. MEDIASTINUM: Diffuse uptake in the esophagus, compatible esophagitis. HEART AND VASCULATURE: Right IJ chest port, tip in the superior cavoatrial junction associated with uptake at the tip which may be related to fibrin sheath. Mild cardiomegaly. Multivessel coronary calcifications. Moderate vascular calcifications of the aortic arch and great vessels. LYMPH NODES: Multiple FDG-avid lymph nodes, appearing similar, involving the upper and lower paratracheal stations, prevascular stations, for example prevascular lymph node measures SUVmax 4.8 (image 64), previously SUVmax 5.9. Previously seen FDG-avid subcarinal lymph node is resolved. BREASTS/CHEST WALL: No abnormal uptake. ABDOMEN AND PELVIS: LIVER: No abnormal uptake. BILIARY SYSTEM: No abnormal uptake. PANCREAS: No abnormal uptake. SPLEEN: Diffusely increased uptake. Splenomegaly. ADRENALS: No abnormal uptake. KIDNEYS AND URETERS: Bilateral nephrostomy tubes in situ appearing appropriately positioned. URINARY BLADDER: No abnormal uptake. Status post cystectomy. REPRODUCTIVE: No abnormal uptake. GI: No abnormal uptake. OMENTUM, MESENTERY, PERITONEUM, RETROPERITONEUM: No abnormal uptake. VASCULATURE: No abnormal uptake. Moderate to severe vascular calcifications in the aorta and branch vessels. LYMPH NODES: No abnormal uptake. MUSCULOSKELETAL: Diffusely increased uptake in the bone marrow, without focality, probably reactive marrow. Procedure Note Chet Bowie MD - 08/21/2023 EXAMINATION: NM PET CT STANDARD SKULL BASE TO MID-THIGH CLINICAL HISTORY: Non-small cell lung cancer, assess treatment response 73 yo with advanced bladder cancer (with a CR on immunotherapy) and thena separate lung cancer on targeted therapy now. 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 The noncontrast CTwas used for anatomic localization and photon attenuation correction of thePET scan. Blood glucose level: 98 (mg/dL) FDG dose: 10.2 mCi COMPARISON: FDG PET/CT 03/07/2023, 10/10/2022 FINDINGS: HEAD AND NECK: BRAIN AND EXTRA-AXIAL SPACES (WHERE INCLUDED): No abnormal uptake. ORBITS: No abnormal uptake. PARANASAL SINUSES: No abnormal uptake. MASTOIDS: No abnormal uptake. AERODIGESTIVE TRACT: No abnormal uptake. SALIVARY GLANDS: No abnormal uptake. THYROID: No abnormal uptake. VASCULATURE: No abnormal uptake. Vascular calcifications of the rightgreater than left carotid bulbs. LYMPH NODES: No abnormal uptake. THORAX: LUNGS: The dominant mass in the left lower lobe has decreased in uptakeand soft tissue components since prior, currently majority of which is acentrally necrotic component measuring approximately 6.2 x 3.7 cm, with SUVmax up to7.5. Air-fluid level within this component, previously completely fluid. Massextends to the left infrahilar region as before. Additional smaller subpleural groundglass opacities, such as in the rightlower lobe (image 78), similar to most recent prior, and new from more remoteprior, given persistence, probably representing additional sites of diseasealthough treatment-related scarring is also in the differential. Bibasilar linear atelectasis and subpleural atelectasis. Backgroundmoderate centrilobular emphysema. PLEURA: Bilateral pleural soft tissue thickening, similar slightlydecreased in activity since prior, may be related to pleural metastasis. AIRWAYS: No abnormal uptake. MEDIASTINUM: Diffuse uptake in the esophagus, compatible esophagitis. HEART AND VASCULATURE: Right IJ chest port, tip in the superiorcavoatrial junction associated with uptake at the tip which may be related tofibrin sheath. Mild cardiomegaly. Multivessel coronary calcifications. Moderate vascular calcifications of the aortic arch and great vessels. LYMPH NODES: Multiple FDG-avid lymph nodes, appearing similar, involvingthe upper and lower paratracheal stations, prevascular stations, for example prevascular lymph node measures SUVmax 4.8 (image 64), previously SUVmax5.9. Previously seen FDG-avid subcarinal lymph node is resolved. BREASTS/CHEST WALL: No abnormal uptake. ABDOMEN AND PELVIS: LIVER: No abnormal uptake. BILIARY SYSTEM: No abnormal uptake. PANCREAS: No abnormal uptake. SPLEEN: Diffusely increased uptake. Splenomegaly. ADRENALS: No abnormal uptake. KIDNEYS AND URETERS: Bilateral nephrostomy tubes in situ appearingappropriately positioned. URINARY BLADDER: No abnormal uptake. Status post cystectomy. REPRODUCTIVE: No abnormal uptake. GI: No abnormal uptake. OMENTUM, MESENTERY, PERITONEUM, RETROPERITONEUM: No abnormal uptake. VASCULATURE: No abnormal uptake. Moderate to severe vascularcalcifications in the aorta and branch vessels. LYMPH NODES: No abnormal uptake. MUSCULOSKELETAL: Diffusely increased uptake in the bone marrow, without focality,probably reactive marrow. IMPRESSION 1. Since prior study, there has been decreased burden of disease. Thisis evidenced by substantial decrease in soft tissue component and avidity ofthe left lower mass, now this lesion is mostly necrotic with a air-fluidlevel. Slight decrease in adenopathy in the mediastinum particularly subcarinal station. Slight decrease in indeterminate bilateral pleural soft tissue thickening. 2. There remains bilateral patchy subpleural opacities, which mayrepresent disease versus inflammatory changes/fibrosis, and could be treatmentrelated. 3. Diffusely increased uptake in the bone marrow and spleen, likelyreactive. 4. Mild esophagitis. Thank you for letting us participate in the care of this patient. If youare a health care provider and have any questions regarding this report,please contact the number below. For patients who have questions please contactthe health insurance healthcare consultant that requested your imaging first. Electronically signed by: Chet Bowie [facility] ([phone]),at 08/21/2023 9:14 AM Chase Mckay MD IMG PET ORDERABLES documented in this encounter Visit Diagnoses Diagnosis 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 Malignant neoplasm of lower lobe, bronchus, or lung Secondary malignant 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 Administered Medications Inactive Administered Medications - up to 3 most recent administrations Medication Order MAR Action Action Date Dose Rate Site fludeoxyglucose (F-18) FDG injection 0-20 mCi 0-20 mCi, Intravenous, ONCE PRN, 1 dose, Starting on Fri08/19/23 at 1112, Until Fri08/19/23 at 1108, Per Protocol, Radiology Contrast, Routine Given 08/19/2023 11:08 AM EDT 10.2 mCi Implanted Port documented in this encounter Care Teams Battery Test Engineer Relationship Specialty Start Date End Date Tavia Ramirez, TASTE TESTER [address] [address] [facility] [place] [address] PCP - General Family Medicine 06/11/22 documented as of this encounter
--- OUTSIDE RECORDS SUMMARY | 2023-11-21 15:54 | XMS_ITS | Encounter Summary ---
Author Organization [facility] [address] Care Team Providers Care Solar Sales Estimator Name Role Phone James Tavia Foster APRN Primary Care Provider Encounter Details Date Type Department Care Team (Latest Contact Info) Description 08/19/2023 Travel Social History Tobacco Use Types Packs/Day Years Used Date Smoking Tobacco: Former Cigarettes Q uit: 07/04/2014 Smokeless Tobacco: Never Alcohol Use Standard Drinks/Week Comments Not Currently 0 (1 standard drink = 0.6 oz pur e alcohol) [facility] Utilities Answer Date Recorded In the [...] place to sleep or slept in a halfway (including now)? No 08/08/2023 DH IPV Inpatient [...] 3:30 PM EDT Office Visit Hematology/Oncology at [address] [address] Chase Mckay MD [facility] DR HEMATOLOGY [place] [address] documented as of this encounter Visit Diagnoses Not on filedocumented in this encounter Care Teams Solar Sales Estimator Relationship Specialty Start Date End Date Tavia Ramirez [place] [address] [place] [address] PCP - General Family Medicine 06/11/22 documented as of this encounter
--- OUTSIDE RECORDS SUMMARY | 2023-11-21 15:54 | XMS_ITS | Encounter Summary ---
Author Organization [facility] Address [facility] [place] [address] Care Team Providers Care Estimation Manager Name Role Phone Tavia Ramirez APRN Primary Care Provider [phone] Encounter Details Date Type Department Care Team (Latest Contact Info) Description 08/19/2023 10:17 AM EDT - 08/19/2023 10:56 AM EDT Hospital Encounter Hematology [place] [address] 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; Secondary malignant neoplasm of pleura; Metastatic urothelial carcinoma Discharge Disposition: Home Social History Tobacco Use Types Packs/Day Years Used Date Smoking Tobacco: Former Cigarettes Q uit: 07/04/2014 Smokeless Tobacco: Never Alcohol Use Standard Drinks/Week Comments Not Currently 0 (1 standard drink = 0.6 oz pur e alcohol) [facility] Utilities Answer Date Recorded In the past 12 months has e [employer], gas, oil, or water [employer] threatened to shut off services in your [...] 08/10/2023 08/26/2023 documented as of this encounter Progress Notes * Cortney Joe RN - 08/19/2023 10:36 AM EDT Patient Name: Barb Bullard Patient Age: 73 y.o. Birthdate: 1950 Admit date: 08/19/2023 Attending Physician: No att. providers found Access visit. See MAR and/or flowsheet. documented in this encounter Plan of Treatment Upcoming Encounters Date Type Department Care Team (Late st Contact Info) Description 12/08/2023 3:30 PM EDT Office Visit Hematology/Oncology at [address] [phone] 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 HC MAGNESIUM, SERUM STAT 08/19/2023 1 0:20 AM EDT 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 COMPREHENSIVE METABOLIC PANEL (NON-FASTING) STAT 08/19/2023 10:20 AM EDT 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 Results * (ABNORMAL) Differential, Automated (08/19/2023 10:20 AM EDT) Neutrophils % 69.7 % [facility] Neutr Abs (ANC) 7.92(H) 1.70 - 6.10 x10(3)/[facility] Lymphocytes % 15.0 % [facility] Lymphocytes Abs 1.7 0.9 - 3.2 x10(3)/[facility] Monocytes % 7.8 % [facility] Monocyte Abs 0.9 0.3 - 0.9 x10(3)/[facility] Eosinophils % 6.7 % [facility] Eosinophils Abs 0.8(H) 0.0 - 0.4 x10(3)/[facility] Basophils % 0.4 % [facility] Basophils Abs 0.0 0.0 - 0.1 x10(3)/[facility] Immature Gran % 0.40 % [facility] Comment: Immature granulocytes(IG's)percentage and absolute count will include metamyelocytes, myelocytes, and promyelocytes. Blood smears from CBCs yielding IG's will be scanned manually for concordance. If this scan disagrees with the automated IG or if promyelocytes are noted, a manual differential will be performed. [place] Gran Abs 0.05(H) 0.00 - 0.04 x10(3)/[facility] Blood 08/19/2023 10:2 0 AM EDT 08/19/2023 10:45 AM EDT Narrative Resulting Agency Comment Spec In Lab Chase Mckay MD HEMATOLOGY ORDERABLE S [facility] [place] [address] * (ABNORMAL) Hemogram (08/19/2023 10:20 AM EDT) WBC 11.4(H) 4.0 - 9.5 x10(3)/[facility] LABORATORY RBC 4.64 4.00 - 5.21 x10(6)/[facility] Hemoglobin 11.7 11.7 - 15.5 g/dL [facility] Hematocrit 36.8 35.7 - 45.8 % [facility] MCV 79.3(L) 82.6 - 94.4 fL [facility] MCH 25.2(L) 27.1 - 32.0 pg [facility] MCHC 31.8 31.7 - 35.0 g/dL [facility] Platelets 559(H) 145 - 357 x10(3)/[facility] RDWSD 45.1 37.0 - 46.0 [facility] RDWCV 15.7(H) 11.5 - 14.1 % [facility] MPV 9.7 7.6 - 12.9 [facility] nRBC % Auto 0.0 % [facility] nRBC Abs Auto 0.000 0.000 - 0.000 x10(3)/[facility] Blood 08/19/2023 10:2 0 AM EDT 08/19/2023 10:45 AM EDT Narrative Resulting Agency Comment Spec In Lab Chase Mckay MD HEMATOLOGY ORDERABLE S [facility] [place] [address] * (ABNORMAL) Comprehensive metabolic panel (non-fasting) (08/19/2023 10:20 AM EDT) Glucose Lvl 92 65 - 199 mg/dL [facility] Comment:Diabetes: >=200 mg/d L plus symptoms BUN 19(H) 8 - 18 mg/dL [facility] Creatinine 1.74(H) 0.70 - 1.20 mg/dL [facility] Sodium 141 135 - 145 mmol/L [facility] Potassium 4.1 3.5 - 5.0 mmol/L [facility] Comment: Please note: ??Patients with WBC >100,000 may have falsely elevated Potassium levels. ??For accurate Potassium quantification in these patients send serum separator tube (gold top) for subsequent determinations. ??Contact the Clinical Chemistry Laboratory if there are any questions. Chloride 108(H) 98 - 107 mmol/L [facility] CO2 20(L) 22 - 31 mmol/L [facility] Anion Gap 13 5 - 15 mmol/L [facility] Calcium 9.0 8.5 - 10.5 mg/dL [facility] Total Protein 8.3(H) 6.1 - 8.0 g/dL [facility] Albumin 3.8 3.2 - 5.2 g/dL [facility] AST 19 0 - 30 unit/L [facility] ALT 26 0 - 30 unit/L [facility] Alk Phos 126(H) 35 - 105 unit/L [facility] Total Bilirubin 1.0 0.2 - 1.3 mg/dL [facility] Estimated GFR 31(L) >=60 mL/min/1. 73 m?? [facility] Comment: This patient's estimated GFR [...] and symptoms in addition to eGFR. Blood 08/19/2023 10:2 0 AM EDT 08/19/2023 10:45 AM EDT Narrative Resulting Agency Comment Spec In Lab Chase Mckay MD CHEMISTRY ORDERABLES [facility] [place] [address] * Magnesium (08/19/2023 10:20 AM EDT) Magnesium 0.94 0.69 - 1.07 mmol/L [facility] Blood 08/19/2023 10:2 0 AM EDT 08/19/2023 10:45 AM EDT Narrative Resulting Agency Comment Spec In Lab Chase Mckay MD CHEMISTRY ORDERABLES [facility] [place] [address] documented in this encounter Visit Diagnoses Diagnosis [...] MAR Action Action Date Dose Rate Site sodium chloride 0.9 % (flush) (BD PosiFlush Normal Saline 0.9) flush 10-20 mL 10-20 mL, Intravenous, EVERY 1 MIN PRN, Starting on Fri08/19/23 at 1021, Until Fri08/20/23 at 0434, Fire Pot Operator, Routine Given 08/19/2023 10:36 AM EDT 20 mLs documented in this encounter Care Teams Estimation Manager Relationship Specialty Start Date End Date Tavia Ramirez, CRUSHER OPERATOR [place] [address] [place] [address] PCP - General Family Medicine 06/11/22 documented as of this encounter
--- OUTSIDE RECORDS SUMMARY | 2023-11-21 15:54 | XMS_ITS | Encounter Summary ---
Author Organization [facility] Address [facility] [place] [address] Care Team Providers Care Employment Representative Name Role Phone James Tavia Foster APRN Primary Care Provider [phone] Encounter Details Date Type Department Care Team (Late st Contact Info) Description 08/26/2023 1:00 PM EDT Office Visit Hematology/Oncology at [address] [phone] Jose Rhoades MD [facility] [address] HEMATOLOGY [place] [address] Katherine Speulveda APRN [facility] [place] [address] Metastatic urothelial carcinoma Social History Tobacco Use Types Packs/Day Years Used Date Smoking Tobacco: Former Cigarettes Q uit: 07/04/2014 Smokeless Tobacco: Never Alcohol Use Standard Drinks/Week Comments Not Currently 0 (1 standard drink = 0.6 oz pur e alcohol) [facility] Utilities Answer Date Recorded In the past 12 months has [employer], gas, oil, or water company threatened [...] Sign Reading Time Taken Comments Blood Pressure 128/59 08/26/2023 1:13 PM EDT Pulse 87 08/26/2023 1:13 PM EDT Temperature 36 ??C (96.8 ??F) 08/26/2023 1:13 PM EDT Respiratory Rate 16 08/26/2023 1:13 PM EDT Oxygen Saturation 97% 08/26/2023 1:13 PM EDT Inhaled Oxygen Concentration - - Weight 70.3 kg (155 lb) 08/26/2023 1:13 PM EDT Height 163.8 cm (5' 4.49) 08/26/2023 1:13 PM ED T Body Mass Index 26.2 08/26/2023 1:13 PM EDT documented in this encounter Progress Notes * Jose Rhoades MD - 08/26/2023 1:00 PM EDT Images from the original note were not included. Hematology & Medical Oncology [address] [address] Barb returns today to continue treatment for Metastatic urothelial carcinoma and primary lung cancer HPI: Barb Bullard is 73 y.o.F referred by Dr. Arzate for diagnosis of bladder cancer. She initiallypresented with with kidney failure and bilateral hydronephrosis secondary to bladder cancer. Bilateral percutaneous nephrostomy tubes were placed by IR on 02/20/21. Creatinine went down from 4.8-1.6 but then got elevated to 1.[address] imaging showed an obstructive uropathy with significant hydroureter, hydronephrosis and a large bladder mass that was diagnosed as a high-grade urothelial cell carcinoma. Her chest CT also showed obstruction of the LLL bronchus. The PET CT was concerning formetastatic disease and could represent metastatic bladder cancer vs a distinct lung primary. She was seen by soda dialyzer , who recommended rigid bronchoscopy with attempts to open the LLL broncus as well as stage the mediastinum with EBUS. She underwent 04/04 bronchoscopy and tumor debulking on April 042020- endobronchial biopsies positive for adenocarcinoma of lung origin. She received one dose on immunotherapy IV on 04/18/21 andthen unfortunately was admitted to the hospital on 03/3021 with CAP, BRITNI and pulmonary HTN. She wasdischarged home on 05/01/21. Pembrolizumab has since been restarted and she continues on treatment. Interval history: Barb returns today for followup of her metastatic bladder cancer and discussion on restaging PET scan. She was recently admitted to for urinary tract infection. Today, she feelswell. Continues to follow with Dr. Mckay on adagrasib. PMH: UTI August 06 Allergies: No Known Allergies Medications: Your Medications Accurate as of August 26, 2023 1:52 PM. If you have any questions, ask your nurse or doctor. Continued medications, unchanged Dose Details acetaminophen 500 mg tablet Commonly known as: Tylenol Take 1,000 mg by mouth every 8 hours as needed for Pain. 1,000 mg Refills: 0 HYDROmorphone 2 mg tablet Commonly known as: Dilaudid Take 1 tablet by mouth every 6 hours as needed for Pain (As needed for breakthrough pain). 2 mg Quantity: 20 tablet Refills: 0 Krazati 200 mg tablet Take 400 mg by mouth daily. Generic drug: adagrasib 400 mg Refills: 0 lactobacillus with pectin 75 million cell -100 mg Capsule Take 1 capsule by mouth daily. 1 capsule Quantity: 30 capsule Refills: 0 levothyroxine 75 mcg tablet Commonly known as: Synthroid Take 1 tablet by mouth daily. 75 mcg Quantity: 30 tablet Refills: 11 prochlorperazine 10 mg tablet Commonly known as: Compazine Take 1 tablet by mouth every 6 hours as needed for Nausea. 10 mg Quantity: 15 tablet Refills: 0 senna 8.6 mg tablet Commonly known as: Senokot Take 1 tablet by mouth daily as needed for Constipation. 1 tablet Refills: 0 traMADoL 25 mg Tablet Take 25 mg by mouth as needed. 25 mg Refills: 0 STOPPED Medications amoxicillin-clavulanate 500-125 mg tablet Commonly known as: Augmentin Stopped by: JOSE RHOADES MD Review of Systems: As in interval history PE:deferred BP 128/59 (Patient Position: Sitting) Pulse 87 Temp 36 ??C (96.8 ??F) (Temporal) Resp 16 Ht163.8 cm (5' 4.49) Wt 70.3 kg (155 lb) SpO2 97% BMI 26.20 kg/m?? 04/04/21 ADDENDUM DISCUSSION PD-L1 Immunohistochemistry Study Tissue: Lung, left lower lobe mass Diagnosis: Adenocarcinoma, consistent with lung primary Tumor Proportion Score (TPS): 90% Interpretation Table: PD-L1 assay (22C3 pharmDX) for Keytruda Tumor Proportion Score (TPS): <1% PD-L1 Negative >=1% PD-L1 Expression >=50% PD-L1 High Expression Immunohistochemical assay was performed on paraffin-embedded tissue sections fixed in 10% neutral buffered formalin for 6-72 hours using the polymer system technique with appropriate controls. The assay was performed according to the balance wheel facer's instructions using Anti-PD-L1 (22C3, pharmDX) antibody. Electronically signed by: Herbert Ford MD Verified: 04/11/2021 8:14 Pathologist Performed at: -[facility] Dept. of Pathology, [place], [place] Surgical Pathology DIAGNOSIS A - Lung, left lower lobe mass, debulking: - Adenocarcinoma, consistent with lung primary. Electronically signed by: Sana Dowell MD Verified: 04/06/2021 11:16 Pathologist Performed at: -[facility] Dept. of Pathology, [place], [place] DISCUSSION Sections show an invasive, predominantly solid-patterned [...] are consistent with a lung primary adenocarcinoma. 02/19/2021 A. URINARY BLADDER, BIOPSY: - Invasive carcinoma, favor urothelial carcinoma, high-grade, with necrosis. See comment. - Tumor invades at least subepithelial lamina propria. - No muscularis propria identified. Labs: 04/22/2023 sodium 141, potassium 3.7, BUN 19, creatinine 1.8, total bilirubin 0.6, AST 9, ALT 10, total protein 8.7, albumin 3.0, TSH 1.7, free T40.87, WBC 11.51, hemoglobin 11.1, platelet count 620,ANC 7.39 04/01/2023 WBC 12.86, hemoglobin 11, platelet count 575, ANC 8.47, BUN 15, creatinine 1.7, calcium 8.7, AST 12, ALT 8, alkaline phosphatase 74, total protein 8.4, TSH 2.14, free T4 0.97 03/11/23 WBC 10.88, Hgb 11.1/Hct 36.4, PLT 659, ANC 6.28. NA 139, K 3.9, Cl 106, Ca9.3, Glucose 88,BUN 25, Cr 1.6. T prot 9.3, Alb 3.2. T bili 0.6. Alk phos 80, AST 11, ALT 9, Free T4 1.15 02/18/23 WBC 11.84, hemoglobin 10.8, platelet count 687, ANC 7.67, sodium 138, potassium 3.9, BUN 16, creatinine 1.5, calcium 9.1, TB 0.5, AST 10, ALT 7, alkaline phosphatase 72, total protein 9.2, albumin 2.9, TSH 1.28, free T4 1.29. 01/15/2023 WBC 15.48, hemoglobin 10.9, platelet count 723, ANC 9.41, sodium 136, potassium 4.1, BUN 18, creatinine 1.6, calcium 9.3, TB 0.5, AST 13, ALT 7, alkaline phosphatase 77, total protein 9.1, albumin 2.8, TSH 2.02, free T41.27. 01/07/23 WBC 12.33 H/H 10.9/34.3 Plts 610 Na 138 K+ 4.2 BUN/Cr 19/1.5 Ca 9.0 T bili 0.4 AST 11 ALT 6Alk phos 79 TSH 1.91 T4 free 1.10 11/26/22 WBC 11.33 H/H 11.5/37.0 Plts 519 ANC 7.59 Na 138 K+ 4.2 BUN/Cr 21/1.7 AST 12 ALT 10 Alk phos87 TSH 1.59 free T4 1.07 11/05/2022 WBC 10.33, hemoglobin 11.4, platelet count 565, ANC 6.43, creatinine 1.6, BUN 17, calcium8.6, AST 12, ALT 11, alkaline phosphatase 88, total protein 8.3, albumin 3.1, TSH 2.44, free T40.88, 10/08/2022 sodium 136, potassium 3.9, BUN 19, creatinine 1.6, calcium 8.4, TB 0.6, AST 11, ALT 11, alkaline phosphatase 91, TSH 1.93, free T41.0, WBC 313.06, hemoglobin 11.3, platelet count 614, ANC 8.59, 09/03/22- WBC-10.84 Hgb/hct-11.7/37.5 MCV-82 Plt-602 ANC-6.70 Na-142 K+-3.8 BUN/Cr-25/1.5 Glucose-109 Ca-8.7 T. Bili-0.6 AST-14 ALT-11 Alk phos-96 Albumin-3.1 TSH-1.14 Free T4-1.00 08/13/22 TSH 3.96, free T40.98, BUN 24, creatinine 1.6, total bilirubin 0.3, AST 11, ALT 13, WBC 11.0, hemoglobin 11.2, platelet count 531. 10/09/2021 WBC 10.57, hemoglobin 11.9, platelet count 561, ANC 6.39, BUN 27, creatinine 1.5, TB 0.8,AST 13, ALT 12, alkaline phosphatase 80, total protein 8.3, albumin 3.3, TSH 7.48, free T4 0.77 Imagin08/19/23 PET/CT scan: IMPRESSION 1. Since prior study, there has [...] and spleen, likely reactive. 4. Mild esophagitis. 03/07/23 PET/CT IMPRESSION 1. Stable FDG avid left lower lobe [...] nodes. These are favored to be reactive. 10/10/22 IMPRESSION 1. There has been no change in appearance since the prior examination. 2. A partially necrotic left lower lobe mass extending to the left hilum is consistent with lung malignancy. 3. A nonenlarged hypermetabolic subcarinal lymph node may be reactive or metastatic origin. 4. There is increased activity in lymph nodes in the neck bilaterally, axilla bilaterally, subcutaneous tissues of the left shoulder, pelvis and inguinal spaces bilaterally. Although metastases are not excluded by this study, this is favored to be inflammatory in origin related to therapy. Multiple foci of activity in the skin, particularly the upper back are also typical of an inflammatory process. 5. A hypermetabolic prominent left lingual tonsil lower or left tongue base is unchanged and may be due to inflammation or malignancy. 6. Reactive bone marrow. 06/12/22- PET scan: IMPRESSION 1. There is a hypermetabolic partially necrotic mass in the left lower lobe consistent with lung malignancy that is unchanged in appearance. 2. A hypermetabolic subcarinal lymph node is unchanged and concerning for metastasis. 3. FDG avid lymph nodes are present in the neck bilaterally, axilla bilaterally, retroperitoneum, pelvis and bilateral inguinal spaces. Although the presence of metastases cannot be excluded, these is favored to represent inflammatory reactive nodes, possibly secondary to ongoing therapy. 4. There is increased activity in the base of the left side of the tongue with a suggestion of soft tissue fullness. It is possible that this is due to reactive lymph node hyperplasia. Please consider direct visualization. Unexpected finding. 5. Multiple cutaneous foci of increased activity in the upper back consistent with the history of skin rash. 03/08/2022 PET scan: IMPRESSION 1. Unchanged FDG avid left lower lobe mass extending into the posterior left hilum, consistent with active pulmonary malignancy. 2. FDG avid 10 mm adenopathy in the subcarinal region is increased in size and FDG avidity, consistent with active anthony metastasis. 3. No other sites of active malignancy or metastasis. 4. Urinary activity in the decompressed urinary bladder limits evaluation for residual urothelial malignancy. 5. Scattered foci of dermal activity in the left upper back and left upper arm, favored to represent benign inflammatory lesions. Correlate with physical exam findings 11/14/21 PET scan: IMPRESSION 1. Persistent large FDG avid mass in the LEFT lower lobe, unchanged in size or metabolic activity from prior examination, consistent with active pulmonary malignancy. 2. Small residual active anthony metastasis in the subcarinal region, with all other adenopathy completely resolved compared to prior. 3. No other sites of suspected active metastatic disease. 08/03/21 PET-CT scan: IMPRESSION 1. Persistent large FDG avid necrotic appearing malignancy in the left lower lobe, slightly decreased in size and not significantly changed in overall intensity. 2. Interval increased size of FDG avid left hilar anthony metastasis. 3. Other previously seen FDG avid adenopathy in the bilateral mediastinal and right hilar regions is stable to decreased in intensity compared to prior. 4. Interval decreased size and intensity of small FDG avid left para-aortic nodes. 5. Interval increased size and intensity of multiple small FDG avid bilateral inguinal nodes. 6. No new sites of active metastatic disease. 7. Resolution of previously seen opacities in the right lower lobe, consistent with a resolving inflammatory process. 07/13/2021 CT chest abdomen pelvis IMPRESSION 1. Grossly stable LEFT lower lobe lung mass with LEFT pleural effusion 2. Resolution of previously noted patchy consolidation RIGHT lower lobe. 3. Borderline mediastinal and hilar adenopathy. 4. Exam otherwise stable 05/02/2020 chest x-ray: Impression: Moderate left pleural effusion opacities on both beta-alexandr urine and blood bases male presents atelectasis or pneumonia. 04/30/2021 echocardiogram: EF of 50-55% with wall motion abnormalities. Diastolic indices appears normal. PA pressure is elevated, moderately pulmonary hypertension estimated 45-50 mmHg 04/26/2021 chest x-ray: Impression: Moderate hip cardiomegaly, small left pleural effusion, left basilar atelectasis or pneumonia. 03/20/[address] scan: IMPRESSION 1. Hypermetabolic circumferential bladder wall irregularity [...] the spleen most consistent with reactive marrow. 02/21/2021 MRI brain: Impression: No significant intracranial findings 02/18/2025 CT chest abdomen pelvis: Impression: There is a large left lower lobe mass highly suspicious for neoplasm. There is associated pleural effusion subadjacent to the mass which is partially loculated. Bilateral moderate severe hydronephrosis related to bladder neoplasm. There is also thickening of the mild left ureter. No ascites evidence. Assessment and Plan: Diagnosis: Bladder cancer,? Metastatic to lymph nodes and lung versus primary lung cancer Treatment: 04/18/21 -04/22/2023 34 cycles of pembrolizumab 200 mg IV every 3 weeks Ms. Bullard presented with bilateral hydronephrosis and acute kidney failure. She was found to have large left lower lobe mass and bladder mass. 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 Large hypermetabolic left lower lobe mass, most consistent with distant metastasis. She was informed of treatment option of presumably metastatic urothelial carcinoma which include kaibab based chemotherapy versus immunotherapy. Due to her kidney failure she is not eligible for cisplatin based chemotherapy. It would be hard to manage side effects of carboplatin in patients with creatinine clearance less than 30 liters per minutes. We discussed benefits and risk of immunotherapy with pembrolizumab On the phase 3 KEYNOTE-045 study, in which single-agent pembrolizumab reduced the risk of by 27 percent compared with chemotherapy in patients with metastatic urothelial carcinoma Treatment-related AEs occurring in 10 percent or more of participants were generally lower with Keytruda as opposed to chemotherapy, respectively, including for fatigue (13.9 percent vs 27.8 percent), nausea (10.9 percent vs 24.3 percent), diarrhea (9.0 percent vs 12.9 percent), asthenia (5.6 percent vs 14.1 percent), and anemia (3.4 percent vs 24.7 percent with chemotherapy). The incidence of pruritus was higher in the Keytruda arm at 19.5 percent versus the chemotherapy group at 2.7 percent. Immune-related AEs that were higher with Keytruda compared with chemotherapy, respectively, included thyroid abnormalities (9.4 percent vs 1.6 percent), pneumonitis (4.1 percent vs0.4 percent) and colitis (2.3 percent vs 0.4 percent). Fifteen patients in the Keytruda arm and 28 patients in the chemotherapy group discontinued treatment due to a treatment-related AE. Each arm had four treatment-related dehs. All questions were answered to patient satisfaction. She is interested to proceed with pembrolizumab. Informed verbal consent was obtained. She was informed of alternatives including palliative treatment/hospice. Elected treatment with pembrolizumab. 04/17/21 Lung biopsy and lymph node stations demonstrated adenocarcinoma consistent with stage III lung primary. This case was discussed on CTOP tumor board. Excerpt from TB dicussion: Date Presented: 04/10/2021 Presenting Physician: Alonzo Cevallos MD Diagnosis/Tumor Site: Recently diagnosed lymph node positive urothelial carcinoma with left lower lobe mass. Is this Metastatic Disease: No Synopsis of History/HPI: Recently diagnosed urothelial cell carcinoma s/p bilateral nephrostomy tubes. Significant weight loss and dyspnea. Staging shows FDG avid pelvic nodes and left lower lobe lung mass. 04/04/21 rigid bronchoscopy with mediastinal staging showing 100% obstruction of the left lower lobe by exophytic, fungating tumor which was debulked and the LLL is now patent. LLL endobronchial tumor positive for adenocarcinoma (lung primary, NSCLC), station 7: adeno, station 4L, 4R and 11R with lymphocytes. Imaging: CT chest, PET/CT, MR brain Pathology/Histology: NSCLC Stage: Stage III Clinical Data (Exams, Labs, etc.): weight loss. Dyspnea improved/resolved s/p debulking of LLL Molecular Pathology Results: Pending Clinical Trial Availability: Not discussed Options Discussed: Various options for treatment, discussed which tumor to treat first (urothelial vs NSCLC) and whether any overlapping treatments exist Recommendations: Discussed definitive treatment for one tumor vs cross-over treatment options. Discussed treatment for urothelial to start followed by decision making regarding her advanced stage lung cancer. To begin, we'll have Ms. Bullard follow-up with Dr. Rhoades for treatment of her urothelial cell carcinoma PD-L1 90% on lung specimen. For stage IV disease primary treatment would be immunotherapy alone which demonstrated better response rate compared to chemotherapy. For stage III of adenocarcinoma concurrent chemoradiation should be a choice but in the setting of metastatic urothelial carcinoma I am not sure if it is a good option as urothelial cancer will progress during chemoradiation. I think she can be treated with pembrolizumab alone for both metastatic urothelial carcinoma and primary lung adenocarcinoma. She was hospitalized with CAP, BRITNI and pulmonary HTN in the beginning of April 2021. She completed antibiotics and feels significant improvement in her breathing... Cr is back to her baseline of 1.3 07/17/21 Elizabeth returned today to continue treatment with Pebrolizumab. She received fourth cycle of pembrolizumab. CT scan shows stable left lower lobe mass and borderline lymphadenopathy. No LAD in abdomen or pelvis. So I would see it as at least stable disease now if not improvement. It would be reasonable to obtain PET scan to compare to previous PET scan from February 2021 Her molecular pathology demonstrated somatic K-xiomara mutation. I do not know if Sotorasib may interfere with checkpoint inhibitor treatment I will ask my colleague Dr. Mckay to see Barb for his opinion on use of K-xiomara inhibitor in the setting of metastatic urothelial carcinoma on pembrolizumab Barb feels better and wants to continue her current palliative immunotherapy. We will proceed with5-th cycle of pembrolizumab today. 08/07/21 PET scan demonstrates mixed picture with decrease in size and activity many thoracic lymph nodes and lung mass and increase in size of left hilar lymph node metastasis. Decrease in size periaortic lymph nodes and increasing size avidity of small bilateral inguinal lymph nodes. No new sites of disease. Clinically, slightly significant improvement in her stamina and breathing. We will continue current management with pembrolizumab 10/09/21 Barb received 8 cycles of pembrolizumab no notable side effects of pembrolizumab with exception of mild skin rash, which is fading we will continue pembrolizumab. Tentative plan to restage her with PET scan upon completion of 10 cycles of pembrolizumab treatment --------- 11/20/21 continuous response to pembrolizumab on restaging PET scan. She tolerates pembrolizumab well. We will continue current regimen. She was seen by Dr. Mckay lwck recommendation of continuation pembrolizumab and consideration of KRAS inhibitor as a second line treatment of lung cancer. 01/22/2022 generally tolerates pembrolizumab reasonably well with mild upper chest rash. Labs were reviewed. We will proceed with cycle 14 of pembrolizumab today. We will see her back in 3 weeks with blood work and pembrolizumab. Plan to restage here prior to cycle 16 of pembrolizumab. 02/12/22- Pembrolizumab held today for possible UTI. She presented with right flank pain and hematuria which started last Friday. She also had a low grade temperature of 100 over the weekend. Urine sent for culture. Given prescription for Cipro 500mg po every 12 hours for 10 days. Nephrostomy tubeswere exchanged on 01/18/22. She has a restaging PET scan scheduled for Friday02/18/22. We will see here back on 02/19 with infusion. She understands if she develops fevers or chills or she feels worse she should to to ED. 04/02/22 PET scan on 03/08/22 shows stable disease. Barb feels well. We will proceed with pembrolizumab today. Labs and toxicities assessed and are adequate to continue treatment today. We will see her back in 3 weeks with blood work and pembrolizumab. 04/23/22- Barb is here for C 21 pembrolizumab. Labs and toxicities assessed. She had a positive COVID test on 06/12/22 and is being treated for a UTI. She is fatigued today and is still recovering. We will hold treatment today and see her back in a week. She had her nephrostomy tubes exchanged on 04/24/22. We reviewed her restaging PET scan from 06/11/22 today. The PET scan shows some FDG avid LN b ut because she probably had COVID at the time the PET scan was done we probably need to repeat it again in 3 months for an accurate read. The PET scan did show a new soft tissue fullness on the left side of her tongue- on exam today unable to see or palpate any abnormality. Will continue to monitorclosely. She denies any difficulty swallowing. 07/23/22- Barb is here for C 22 Pembrolizumab. Labs and toxicities assessed. She is tolerating the therapy well. No evidence of toxicities. She has a nephrostomy tube exchange scheduled for Friday07/26/22. 08/13/22 Barb tolerates pembrolizumab well. We will continue pembrolizumab for total of 2 years. Frankie plan to restage her with PET scan in 6-7 weeks I will refer her to ENT for direct visualization of tongue abnormality on the PET scan. 10/08/22- Barb is tolerating the Pembrolizumab well. She is here today for C 25. Staging PET scan was not scheduled on coming . She has not heard on ENT referral. We will check on this today.Labs and toxicities assessed today and are acceptable to continue treatment. 11/05/2022 cervical, axillary lymph nodes more elevated but look more like reactive even though metastasis cannot be ruled out. Overall no changes from previous PET scan. She is scheduled for ENT evaluation next week. We will continue pembrolizumab. We will see her back in 3 weeks. 11/26/22 She continues to tolerate treatment without any issues. She will receive her next cycle today and she will return in 3 weeks with labs prior for her next treatment. She will see ENT in the near future. She is comfortable with this plan. 01/07/23 she continues to tolerate treatment without any issues. She will receive her next dose of pembrolizumab today and she will have a PET scan prior to the next visit. She is comfortable with this plan. 01/28/23 clinically, Barb is doing well. She tolerates pembrolizumab without any issue. We will continue current regimen. We will get restaging PET scan 02/18/23: Barb continues on pembrolizumab and is tolerating treatment well. She will have a restaging PET/CT prior to her next visit. 03/11/23: Barb continues on pembrolizumab and is tolerating treatment well. We reviewed results ofher restaging PET scan briefly today and she will meet with Dr. Rhoades for her next visit to review results in detail. 04/01/23 staging PET scan was reviewed. It seems Barb is doing well in part of metastatic bladder cancer but radiographic picture of lungs more consistent with progression of her primary lung cancer.I will refer her to our thoracic oncology expert Dr. Mckay to get his opinion on interpretation of PET scan and treatment options Will continue pembrolizumab for now. 04/22/23 Barb was seen by Dr. Mckay. Somatic mutation testing for KRAS is pending. Will continue pembrolizumab for now. 05/13/23 Barb completed 2 years of pembrolizumab for metastatic bladder cancer and lung cancer. Unfortunately her lung cancer is progressing. Dr. Mckay is starting Barb on KRAS inhibitor adagrasib. Irecommended to stop pembrolizumab. Will defer further management with adagrasib to Dr. Mckay. If there is a progression of her bladder cancer in the future we can consider putting her back on checkpoint inhibitor 08/26/23 no clear evidence of urothelial cancer recurrence. She continues to follow with Dr. Mckay onadagrazib. I am happy to see her on as-needed basis. # Low back pain left side pain- Has Rx for Tramadol 50 mg(1/2) every 12 hours with tylenol in between if needed. She follows with Palliative Care. #Abnormal thyroid function: TSH and free T4 within normal range, continue levothyroxine is 75 mcg daily. Will monitor thyroid function. #Renal insufficiency: Cr 1.6 today, stable, She has bilateral nephrostomy tubes and follows up with nephrology. Continues with tube exchange [id number]. # Anemia- mild- asymptomatic. Continue to monitor Plan: 1 Continue levothyroxine 75 mcg a day 2. F/u with Dr. Mckay 3. Next visit with MD on as needed basis. Barb voiced understanding of the plan and was given an opportunity to ask questions which I answered to the best of my ability. Barb understands she can call the clinic between visits with any questions/concerns or new symptoms. 30 minutes were spent on date of visit, including non-face to face time. documented in this encounter Plan of Treatment Upcoming Encounters Date Type Department Care Team (Late st Contact Info) Description 12/08/2023 3:30 PM EDT Office Visit Hematology/Oncology at [address] [phone] Chase Mckay MD [facility] DR HEMATOLOGY [place] [address] documented as of this encounter Visit Diagnoses Diagnosis Metastatic urothelial carcinoma Secondary malignant neoplasm of other urinary organs documented in this encounter Care Teams Employment Representative Relationship Specialty Start Date End Date Tavia Ramirez APRN [address] [place] [address] PCP - General Family Medicine 06/11/22 documented as of this encounter
--- OUTSIDE RECORDS SUMMARY | 2023-11-21 15:54 | XMS_ITS | Encounter Summary ---
Author Organization [facility] [place] [address] Care Team Providers Care Fire And Explosion Investigator Name Role Phone James Tavia Foster APRN Primary Care Provider [phone] Encounter Details Date Type Department Care Team (Latest Contact Info) Description 09/29/2023 Travel Social History Tobacco Use Types Packs/Day Years Used Date Smoking Tobacco: Former Cigarettes Q uit: 07/04/2014 Smokeless Tobacco: Never Alcohol Use Standard Drinks/Week Comments Not Currently 0 (1 standard drink = 0.6 oz pur e alcohol) [facility] Utilities Answer Date Recorded In [...] 3:30 PM EDT Office Visit Hematology/Oncology at [address] [phone] Chase Mckay MD [facility] DR [place] [address] documented as of this encounter Visit Diagnoses Not on filedocumented in this encounter Care Teams Fire And Explosion Investigator Relationship Specialty Start Date End Date Tavia Ramirez [place] [address] [place] [address] PCP - General Family Medicine 06/11/22 documented as of this encounter
--- OUTSIDE RECORDS SUMMARY | 2023-11-21 15:54 | XMS_ITS | Encounter Summary ---
Author Organization [facility] [place] [address] Care Team Providers Care Engine Pilot Name Role Phone Tavia Ramirez ALESSANDRO Primary Care Provider [phone] Encounter Details Date Type Department Care Team (Latest Contact Info) Description 07/21/2023 3:00 PM EDT Clinical Support Hematology/Oncology at [address] [phone] [facility] [address] [place] [address] Metastatic urothelial carcinoma Social History Tobacco Use Types Packs/Day Years Used Date Smoking Tobacco: Former Cigarettes Q uit: 07/04/2014 Smokeless Tobacco: Never Alcohol Use Standard Drinks/Week Comments Not Currently 0 (1 standard drink = 0.6 oz pur e alcohol) Overall Financial Resource Strain (CARDIA) Answe r Date Recorded How hard is it for you to pa y for the very basics like food, housing, medical care, and heating? Patient declined 03/27/2021 Hunger Vital Sign Answer Date Recorded Within the past 12 months, y ou worried that your food would run out before you got the money to buy more. Patient declined Within the past 12 months, t he food you bought just didn't last and you didn't have money to get more. Patient declined PRAPARE - Transportation Answer Date Re corded In the past 12 months, has l ack of transportation kept you from medical appointments or from getting medications? No 02/28 In the past 12 months, has l ack of transportation kept you from meetings, work, or from getting things needed for daily living? No 03/27/2021 Housing Stability Vital Sign Answer Rashawn e Recorded In the last 12 months, was t here a time when you were not able to pay the mortgage or rent on time? Patient refused 03/27/20 21 In the last 12 months, how many places have you lived? 2 03/27/2021 In the last 12 months, was t here a time when you did not have a steady place to sleep or slept in a long-term (including now)? No 03/27/2021 DH IPV Inpatient Questions Answer Date Recorded Does Anyone Try to Keep You From Having Contact with Others or Doing Things Outside Your Home? no 07/10/2023 Feels Threatened by Someone no 06/26 Feels Unsafe at Home or Work/School yes 07/10/2023 Physical Signs of Abuse Present no 07/10/2023 Sex and Gender Information Value Date Recorded Sex Assigned at Not on file Gender Identity Not on file Sexual Orientation Not on file documented as of this encounter Progress Notes * Marisela Castellon E, RD - 07/21/2023 3:00 PM EDT Nutrition Note Spoke with Barb in clinic today as she triggered for nutrition consult based on recent weight loss. Patient has diagnoses of metastatic bladder cancer as well as adenocarcinoma of left lower lobe. She is followed by Dr. Lange and Dr. Mckay. Patient began treatment with Adagrasib twice daily on 05/10/23 but this was poorly tolerated and washeld, then resumed at a daily dose. She says she is doing better with this reduced dose. She attributes recent weight loss to nausea and diarrhea with initial BID dose of Adagrasib. Both of these symptoms have since improved at lesser dose. She is now eating better, and says I'm snacking too much. Her taste is off--many things don't taste good. Sweet pickles are appealing, and she is incorporating these into foods like tuna salad withsuccess. Bowels are now regular, no diarrhea. No nausea. Wt Readings from Last 10 Encounters: 07/21/23 71 kg (156 lb 9.6 oz) 07/09/23 70.8 kg (156 lb) 06/23/23 71.5 kg (157 lb 9.6 oz) 06/09/23 72.8 kg (160 lb 8 oz) 05/13/23 73.5 kg (162 lb) 05/05/23 73.8 kg (162 lb 9.6 oz) 04/22/23 73 kg (161 lb) 04/07/23 72.6 kg (160 lb) 04/01/23 73 kg (161 lb) 03/11/23 71.8 kg (158 lb 6.4 oz) BMI 26.47 Weight stable for past two weeks 07/08-07/20 6.5# loss in 2 months 05/05-07/08 (4.1% body weight) - not significant Diet: Improved PO intake at lower dose of Adagrasib. Breakfast: Rackerby or muffin with coffee Lunch: Soup and sandwich Dinner: Mac n cheese or chop suey or hamburger Beverages: Patient lives in [place] with her daughter. She notes she is eating better, though still limited by taste changes. Sweet pickles taste good. Pasta always tastes good. Snacking a lot lately. PMH: Anemia, folate deficiency Labs on 07/20: 3.25.24 White blood cell count 8.47 hemoglobin 11.5 platelet count 546,000 absolute neutrophil count 5.16 Medications: Compazine, synthroid, tramadol, tylenol, senna Recommendations: Glad that diarrhea and nausea has resolved and that she is eating better now. Continue with regularmeals and snacks (ok to have snacks!). Talked about taste changes and how to manage these - trying different foods to see what might be appealing then expand on what works well. Will f/u as needed. documented in this encounter Plan of Treatment Upcoming Encounters Date Type Department Care Team (Late st Contact Info) Description 12/08/2023 3:30 PM EDT Office Visit Hematology/Oncology at [address] [phone] Chase Mckay MD [facility] DR HEMATOLOGY AND [place] [address] documented as of this encounter Visit Diagnoses Diagnosis Metastatic urothelial carcinoma Secondary malignant neoplasm of other urinary organs documented in this encounter Care Teams Engine Pilot Relationship Specialty Start Date End Date Tavia Ramirez, INSTRUMENT MAKER APPRENTICE [address] [place] [address] PCP - General Family Medicine 06/11/22 documented as of this encounter
--- OUTSIDE RECORDS SUMMARY | 2023-11-21 15:54 | XMS_ITS | Encounter Summary ---
Author Organization [facility] [place] [address] Care Team Providers Care Drainlayer Name Role Phone James Tavia Foster APRN Primary Care Provider [phone] Reason for Visit * Diagnostic Test (Routine) - Closed Specialty Diagnoses / Procedures Referred By Contac t Referred To Contact Radiology Diagnoses 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 Procedures NM PET CT Skull Base to Mid-thigh Chase Mckay MD [facility] DR [place] [address] [place] [address] Referral ID Status Reason Start Date Expiration Date V isits Requested Visits Authorized [id number] Closed Specialty Service Requested 07/21/2023 01/20/2025 1 1 Encounter Details Date Type Department Care Team (Late st Contact Info) Description 08/19/2023 10:57 AM EDT - 08/19/2023 11:59 PM EDT Hospital Encounter [place] [address] Chase Mckay MD [facility] DR [place] [address] Discharge Disposition: Home Social History Tobacco Use Types Packs/Day Years Used Date Smoking Tobacco: Former Cigarettes Q uit: 07/04/2014 Smokeless Tobacco: Never Alcohol Use Standard Drinks/Week Comments Not Currently 0 (1 standard drink = 0.6 oz pur e alcohol) [facility] Utilities Answer Date Recorded In the past [...] place to sleep or slept in a snf (including now)? No 08/08/2023 IPV Inpatient Questions [...] 3:30 PM EDT Office Visit Hematology/Oncology at [address] [phone] Chase Mckay MD [facility] DR [place] [address] documented as of this encounter Procedures Procedure Name Priority Date/Time Associated Diagnosis Comments NM PET CT SKULL BASE TO MID-THIGH ([facility]) Routine 08/19/2023 1:07 PM EDT 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 POCT GLUCOSE Routine 08/19/2023 11:06 AM EDT documented in this encounter Results * POCT Glucose (08/19/2023 11:06 AM EDT) POC Glucose 98 65 - 199 mg/dL [facility] Comment: Supplemental ranges: <140 mg/dL before meals <180 mg/dL all other times of the day Blood 08/19/2023 11:0 6 AM EDT 08/19/2023 11:06 AM EDT Chase Mckay MD POINT OF CARE TEST O COSMO Performing Organization Address City/State/[facility] Co de Phone Number [facility] [place] [address] documented in this encounter Visit Diagnoses Not on filedocumented in this encounter Care Teams Drainlayer Relationship Specialty Start Date End Date Tavia Ramirez, STRAP BUCKLER [address] [place] [address] PCP - General Family Medicine 06/11/22 documented as of this encounter
--- OUTSIDE RECORDS SUMMARY | 2023-11-21 15:54 | XMS_ITS | Encounter Summary ---
Author Organization [facility] Address [facility] [place] [address] Care Team Providers Care Toilet Attendant Name Role Phone James Tavia Foster APRN Primary Care Provider [phone] Encounter Details Date Type Department Care Team (Latest Contact Info) Description 09/13/2023 Travel Social History Tobacco Use Types Packs/Day Years Used Date Smoking Tobacco: Former Cigarettes Q uit: 07/04/2014 Smokeless Tobacco: Never Alcohol Use Standard Drinks/Week Comments Not Currently 0 (1 standard drink = 0.6 oz pur e alcohol) [facility] Utilities Answer Date Recorded In the [...] 3:30 PM EDT Office Visit Hematology/Oncology at [address] [phone] Chase Mckay MD [facility] DR HEMATOLOGY [place] [address] documented as of this encounter Visit Diagnoses Not on filedocumented in this encounter Care Teams Toilet Attendant Relationship Specialty Start Date End Date Tavia Ramirez [place] [place] [address] PCP - General Family Medicine 06/11/22 documented as of this encounter
--- OUTSIDE RECORDS SUMMARY | 2023-11-21 15:54 | XMS_ITS | Encounter Summary ---
Author Organization [facility] Address [facility] [place] [address] Care Team Providers Care Art Museum Docent Name Role Phone James Tavia Foster APRN Primary Care Provider [phone] Encounter Details Date Type Department Care Team (Latest Contact Info) Description 08/07/2023 Travel Social History Tobacco Use Types Packs/Day Years Used Date Smoking Tobacco: Former Cigarettes Q uit: 07/04/2014 Smokeless Tobacco: Never Alcohol Use Standard Drinks/Week Comments Not Currently 0 (1 standard drink = 0.6 oz pur e alcohol) [facility] Utilities Answer Date Recorded In [...] place to sleep or slept in a mcfp (including now)? No 08/08/2023 DH IPV Inpatient [...] PM EDT Office Visit Hematology/Oncology at [address] [phone] Chase Mckay MD [facility] DR HEMATOLOGY [place] [address] documented as of this encounter Visit Diagnoses Not on filedocumented in this encounter Care Teams Art Museum Docent Relationship Specialty Start Date End Date Tavia Ramirez [place] [place] [address] PCP - General Family Medicine 06/11/22 documented as of this encounter
--- OUTSIDE RECORDS SUMMARY | 2023-11-21 15:54 | XMS_ITS | Encounter Summary ---
Author Organization [facility] Address [facility] [place] [address] Care Team Providers Care Agricultural Sciences Professor Name Role Phone James Tavia Foster APRN Primary Care Provider [phone] Encounter Details Date Type Department Care Team (Late st Contact Info) Description 08/25/2023 1:00 PM EDT Office Visit Hematology/Oncology at [address] [phone] Chase Mckay MD [facility] DR [place] [address] Dianne Jacob APRN [address] [place] [address] DR HEMATOLOGY AND ONCOLOGY [place], [place] [id number] 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; Metastatic urothelial carcinoma; High risk medication use; Secondary malignant neoplasm of pleura Social History Tobacco Use Types Packs/Day Years Used Date Smoking Tobacco: Former Cigarettes Q uit: 07/04/2014 Smokeless Tobacco: Never Alcohol Use Standard Drinks/Week Comments Not Currently 0 (1 standard drink = 0.6 oz pur e alcohol) [facility] Utilities Answer Date Recorded In the past 12 months has [employer] gas, oil, or water [employer] threatened to shut off services in your [...] place to sleep or slept in a mcc (including now)? No 08/08/2023 DH IPV Inpatient [...] Sign Reading Time Taken Comments Blood Pressure 125/80 08/25/2023 12:50 PM EDT Pulse 82 08/25/2023 12:50 PM EDT Temperature 36.5 ??C (97.7 ??F) 08/25/2023 12:50 PM E DT Respiratory Rate 16 08/25/2023 12:50 PM EDT Oxygen Saturation 99% 08/25/2023 12:50 PM EDT Inhaled Oxygen Concentration - - Weight 69.9 kg (154 lb) 08/25/2023 12:50 PM EDT Height 163.8 cm (5' 4.49) 08/25/2023 12:50 PM E DT Body Mass Index 26.04 08/25/2023 12:50 PM EDT documented in this encounter Progress Notes * Chase Mckay MD - 08/25/2023 1:00 PM EDT Images from the original note were not included. [facility] [place] [address] [phone] Barb Bullard is being seen for the [...] 04/17/12 with clinical improvement and radiographic response. Most recent imaging reviewed and it does appear that she has progression of her lung cancer with and [...] held and resumed at a daily dose 06.23.23. Briefly interrupted during an admission in [facility] for pyelobephritis. Resumed in 08/13/23 at 400mgdaily and well tolerated PET scan personally reviewed from 08/19/23 with excellent response to therapy. EKG at [facility] with Qtc 466 Plan: - Labs and toxicities assessed and acceptable for ongoing treatment. -Continue on adadrasib 400 mg daily - EKG in 4-5 weeks and labs and then RTC - Restage in late September/early October. Chase Mckay MD, MS 08/25/2023 Medical Oncology & Hematology [facility] [address] [place] CC: Atiya Ramirez, SERVICE PARTS DRIVER HPI/Interval History/Subjective: Last seen 07/21/2023 Admitted for concern over pyelonephritis 08/06-08/09. Had b'l nephrotostomy tube changes and was treated with 14 day course for proteus vulgaris. Treated with Augmentin Adagrasib was held at the time of her admission and discharge She resumed it on 08/13/23 and-does better with food when she takes it. No other side effects. Completed abx last week and feels urine is ok. I can't remember the last time I felt this good. Breathing is good No significant side effects Bowels moving but no diarrhea. No nausea. No palpitations No other infections Food is more appealing of late. No pains. [facility]. Has received COVID J&J and Moderna booster . Social History/Support Network: Home situation: Lives in [place]. Lives with her daughter. 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 Tobacco use: 30 pk year hx quit 2014 Alcohol use: Does not drink Drug use: None Financial Distress: Medicare A/B has financial assistance through the hospitals so not worried about food Usp or ability to pay for her cancer [...] of left lower lobe mass lung debulking ([id number]), the immunostain findings in the present case are compatible with lung primary. 12.8.21 L1 Immunohistochemistry Study Tissue: Lung, left lower [...] are consistent with a lung primary adenocarcinoma. 12.8.21 DISCUSSION Lymph node, station 11R (EBUS-guided FNA): Scant fragments of lymphoid tissue present, compatible with focal lymph node sampling. No metastatic carcinoma seen. 12.8.21 DIAGNOSIS Negative for Malignancy DISCUSSION Lymph node, [...] of left lower lobe mass lung debulking ([id number]), the immunostain findings in the present case [...] and spleen, likely reactive. 4. Mild esophagitis. 12/17/2022 2:23 PM 01/07/2023 10:19 AM 01/28/2023 [...] function test 03/27/2021 No Known Allergies Medications 08/25/23 1256 Medication Sig Taking? lactobacillus with pectin 75 million cell -100 mg Capsule Take 1 capsule by mouth daily. Yes levothyroxine (Synthroid) 75 mcg tablet Take 1 tablet by mouth daily. Yes acetaminophen (Tylenol) 500 mg Tablet Take 1,000 mg by mouth every 8 hours as needed for Pain. Yes HYDROmorphone (Dilaudid) 2 mg tablet Take 1 tablet by mouth every 6 hours as needed for Pain (As needed for breakthrough pain). Patient not taking: Reported on 08/25/2023 amoxicillin-clavulanate (Augmentin) 500-125 mg tablet Take 1 tablet by mouth every 12 hours. Patient not taking: Reported on 08/25/2023 prochlorperazine (Compazine) 10 mg tablet Take 1 tablet by mouth every 6 hours as needed for Nausea. Patient not taking: Reported on 08/25/2023 senna (Senokot) 8.6 mg Tablet Take 1 tablet by mouth daily as needed for Constipation. I reviewed the problem list, allergies, medications, past medical history, social history and family history within the EPIC encounter. Pertinent details are noted above. Pertinent positives and negative from the Review of Systems are as summarized above in the HPI. Physical Exam: Wt Readings from Last 3 Encounters: 08/25/23 69.9 kg (154 lb) 08/10/23 68.5 kg (151 lb 1.6 oz) 07/21/23 71 kg (156 lb 9.6 oz) Temp Readings from Last 3 Encounters: 08/25/23 36.5 ??C (97.7 ??F) (Temporal) 08/10/23 36.5 ??C (97.7 ??F) (Oral) 07/21/23 35.9 ??C (96.7 ??F) (Temporal) BP Readings from Last 3 Encounters: 08/25/23 125/80 08/10/23 126/73 08/07/23 126/41 Pulse Readings from Last 3 Encounters: 08/25/23 82 08/07/23 83 07/21/23 93 Body surface area is 1.78 meters squared. Wt Readings from Last 3 Encounters: 08/25/23 69.9 kg (154 lb) 08/10/23 68.5 kg (151 lb 1.6 oz) 07/21/23 71 kg (156 lb 9.6 oz) KPS Score ECOG Grade Definition 90-100 0 [...] Judgment: Judgment normal. Review of Laboratory Data: Last 5 CBC Recent Labs 08/19/23 1020 08/10/23 0449 08/09/23 0656 08/08/23 0658 08/07/23 2255 WBC 11.4* 6.9 7.8 10.8* 13.0* HGB 11.7 10.7* 10.4* 10.2* 9.9* MCV 79.3* 80.4* 79.5* 79.2* 81.2* PLATELET 559* 427* 416* 383* 400* NEUTROABS 7.92* 4.19 5.21 7.86* 9.80* Last 5 Lytes Recent Labs 08/19/23 1020 08/10/23 0449 08/09/23 0656 08/08/23 0658 08/07/23 2255 NA 141 140 137 135 137 K 4.1 4.4 4.1 4.3 4.3 CL 108* 112* 110* 107 108* CO2 20* 20* 20* 21* 18* BUN 19* 17 18 24* 24* CREATININE 1.74* 1.76* 1.90* 2.14* 2.20* Last 5 LFTs Recent Labs 08/19/23 1020 08/07/23 2255 08/07/23 0436 AST 19 9 13 ALT 26 8 9 ALKPHOS 126* 75 99 BILITOT 1.0 0.7 0.9 Last 5 Ca, Mg, Phos Recent Labs 08/19/23 1020 08/07/23 0436 07/10/23 0148 CALCIUM 9.0 < > 7.9* PHOS -- -- 4.0 MAGNESIUM 0.94 -- 0.90 < > = values in this interval not displayed. Last 3 Coags No results for input(s): PT, INR, PTT in the last 7068 hours. Last 3 TFT No results for input(s): TSH in the last 7068 hours. Invalid input(s): T4, FT4 3.25.24 White blood cell count 8.47 hemoglobin 11.5 platelet count 546,000 absolute neutrophil count 5.16 2.26.24 WBC 6.63, H/H 11.2/35.8, plt 531, ANC [...] phos 169 albumin 2.9 improved from 2. 4.11.24 EKG QTC 466 Review of Imaging Data: 4.8.22 PET scan Review of Pathology Data: No new data documented in this encounter Plan of Treatment Upcoming Encounters Date Type Department Care Team (Late st Contact Info) Description 12/08/2023 3:30 PM EDT Office Visit Hematology/Oncology at [address] [phone] Chase Mckay MD [facility] H[place]ATOLOGY [place] [address] Scheduled Orders Name Type Priority Associated Diagnoses Orde r Schedule CBC (with Diff) Lab STAT 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 Expected: 09/22/2023 (Approximate), Expires: 08/24/2024 Comprehensive metabolic panel (non-fasting) Lab STAT 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 Expected: 09/22/2023 (Approximate), Expires: 08/24/2024 Magnesium Lab STAT 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 Expected: 09/22/2023 (Approximate), Expires: 03/23/2024 EKG 12 Lead ECG Routine 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 High risk medication use Expected: 09/22/2023 (Approximate), Expires: 03/23/2024 documented as of this encounter Visit Diagnoses Diagnosis 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 Malignant neoplasm of lower lobe, bronchus, or lung Metastatic urothelial carcinoma Secondary malignant neoplasm of other urinary organs High risk medication use Encounter for long-term (current) use of other medications Secondary malignant 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 Care Teams Agricultural Sciences Professor Relationship Specialty Start Date End Date Tavia Ramirez APR[place] [address] PCP - General Family Medicine 06/11/22 documented as of this encounter
--- OUTSIDE RECORDS SUMMARY | 2023-11-21 15:54 | XMS_ITS | Encounter Summary ---
Author Organization [facility] Address [facility] [place] [address] Care Team Providers Care Box Estimator Name Role Phone James Tavia Foster APRN Primary Care Provider [phone] Encounter Details Date Type Department Care Team (Latest Contact Info) Description 08/13/2023 Travel Social History Tobacco Use Types Packs/Day Years Used Date Smoking Tobacco: Former Cigarettes Q uit: 07/04/2014 Smokeless Tobacco: Never Alcohol Use Standard Drinks/Week Comments Not Currently 0 (1 standard drink = 0.6 oz pur e alcohol) [facility] Utilities Answer Date Recorded In the [...] 3:30 PM EDT Office Visit Hematology/Oncology at [address] [phone] Chase Mckay MD [facility] [place] [address] documented as of this encounter Visit Diagnoses Not on filedocumented in this encounter Care Teams Box Estimator Relationship Specialty Start Date End Date Tavia Ramirez [place] [address] [place] [address] PCP - General Family Medicine 06/11/22 documented as of this encounter
--- OUTSIDE RECORDS SUMMARY | 2023-11-21 15:54 | XMS_ITS | Encounter Summary ---
Author Organization [facility] Address [facility] [place] [address] Care Team Providers Care Supervisor Lead Burning Name Role Phone James Tavia Foster APRN Primary Care Provider [phone] Encounter Details Date Type Department Care Team (Latest Contact Info) Description 09/18/2023 Travel Social History Tobacco Use Types Packs/Day Years Used Date Smoking Tobacco: Former Cigarettes Q uit: 07/04/2014 Smokeless Tobacco: Never Alcohol Use Standard Drinks/Week Comments Not Currently 0 (1 standard drink = 0.6 oz pur e alcohol) [facility] Utilities Answer Date Recorded In the past [...] 3:30 PM EDT Office Visit Hematology/Oncology at [address] [phone] Chase Mckay MD [facility] DR [place] [address] documented as of this encounter Visit Diagnoses Not on filedocumented in this encounter Care Teams Supervisor Lead Burning Relationship Specialty Start Date End Date Tavia Ramirez [place] [place] [address] PCP - General Family Medicine 06/11/22 documented as of this encounter
--- OUTSIDE RECORDS SUMMARY | 2023-11-21 15:54 | XMS_ITS | Encounter Summary ---
Author Organization [facility] Address [facility] [place] [address] Care Team Providers Care Asphalt Coater Name Role Phone Tavia Ramirez APRN Primary Care Provider [phone] Reason for Visit * Reason Onset Date Comments Follow-up 08/11/2023 Encounter Details Date Type Department Care Team (Late st Contact Info) Description 08/11/2023 Telephone Hematology/Oncology at [address] [phone] Pamella East RN Follow-up Social History Tobacco Use Types Packs/Day Years Used Date Smoking Tobacco: Former Cigarettes Q uit: 07/04/2014 Smokeless Tobacco: Never Alcohol Use Standard Drinks/Week Comments Not Currently 0 (1 standard drink = 0.6 oz pur e alcohol) [facility] Utilities Answer Date Recorded In the [...] in a prison (including now)? No 08/08/2023 IPV Inpatient Questions [...] encounter Miscellaneous Notes * Telephone Encounter - Pamella East RN - 08/11/2023 4:34 PM EDT Pt called and wanted to know when she should restart her Krazati, she had been admitted [facility] for[facility]eloneph[facility] . She is feeling better now. Reviewed with Dr. Mckay and he said if she is feeling better she can restart Krazati 400 mg a day by mouth on Or this week. Pt states she willrestart on August 12. She will call with questions or concerns. documented in this encounter Plan of Treatment Upcoming Encounters Date Type Department Care Team (Late st Contact Info) Description 12/08/2023 3:30 PM EDT Office Visit Hematology/Oncology at [address] [phone] Chase Mckay MD [facility] DR [place]AT[place] [address] documented as of this encounter Visit Diagnoses Not on filedocumented in this encounter Care Teams Asphalt Coater Relationship Specialty Start Date End Date Tavia Ramirez, ALESSANDRO [address] [place] [address] PCP - General Family Medicine 06/11/22 documented as of this encounter
--- OUTSIDE RECORDS SUMMARY | 2023-11-21 15:54 | XMS_ITS | Encounter Summary ---
[place] [address] Care Team Providers Care Concession Supervisor Name Role Phone James Tavia Foster APRN Primary Care Provider [phone] Reason for Referral * Diagnostic Test (Routine) - Closed Specialty Diagnoses / Procedures Referred By Aydinac t Referred To Contact Radiology Diagnoses Metastatic urothelial carcinoma Procedures IR Nephrogram/Nephrostomy Tube Exchange Bilateral Guillermo Nice MD [facility] [place] [address] [facility] [place] [address] Referral ID Status Reason Start Date Expiration Date V isits Requested Visits Authorized [id number] Closed Specialty Service Requested 08/07/2023 02/05/2025 1 1 Reason for Visit * Auth/Cert (Routine) Specialty Diagnoses / Procedures Referred By Contac t Referred To Contact Diagnoses BRITNI (acute kidney injury) Juan Trejo MD [facility] [place] [address] [facility] Referral ID Status Reason Start Date Expiration Date Visits Re quested Visits Authorized [id number] 1 1 Encounter Details Date Type Department Care Team (Latest Contact Info) Description 08/07/2023 2:28 PM EDT - 08/07/2023 11:59 PM EDT Hospital [place] [address] Metastatic urothelial carcinoma Discharge Disposition: Home Social History Tobacco Use Types Packs/Day Years Used Date Smoking Tobacco: Former Cigarettes Q uit: 07/04/2014 Smokeless Tobacco: Never Alcohol Use Standard Drinks/Week Comments Not Currently 0 (1 standard drink = 0.6 oz pur e alcohol) [facility] Utilities Answer Date Recorded [...] Sign Reading Time Taken Comments Blood Pressure 126/41 08/07/2023 3:45 PM EDT Pulse - - Temperature - - Respiratory Rate 18 08/07/2023 3:45 PM EDT Oxygen Saturation 96% 08/07/2023 3:45 PM EDT Inhaled Oxygen Concentration - - Weight - - Height - - Body Mass Index - - documented in this encounter Discharge Instructions * Discharge Instructions* Zelda Verde RN - 08/07/2023 3:29 PM EDT Images from the original note were not included. [facility] Vascular and Interventional Radiology Discharge Instructions [...] connecting tubing from the drain. Put a shredding machine knife changer on both the drain and the bag. [...] is during regular office hours, please call [phone]. If it is after regular office hours, or on weekends or holidays, please call [phone] and ask to speak to the Child Caregiver Private Home metal bonding assembler for Interventional Radiology. You have received medication during your procedure to help lessen anxiety and keep you comfortable.These medications affect judgement and reaction time. We recommend that you do not drive, operate equipment, sign any important documents, or smoke unattended for 24 hours following your procedure. Because of the sedation, be careful on stairs, as you may be unsteady on your feet. You may resume your regular diet as tolerated. IV site -- slight redness, or tenderness is normal, you can use a warm compress. If tenderness and redness increases or foul drainage occurs, please contact your M. D. Revised 02/11/19 documented in this encounter Medications [...] every 12 hours. 20 tablet 08/10/2023 08/26/2023 Krazati 200 mg tablet Take 400 mg by mouth daily. 07/17/2023 08/10/2023 traMADoL (Ultram) 50 mg TabletIndications:Me tastatic urothelial carcinoma Take 1 tablet by mouth every 6 hours as needed for Pain. 30 tablet 04/23/2022 08/10/2023 documented as of this encounter Progress Notes * Zleda Verde RN - 08/07/2023 2:57 PM EDT ANGIO NURSING DATABASE Name: Barb Bullard Date of : 1950 AGE: 73 y.o. Address: [address] [place] [phone] (home) Mobile: Telephone Information: Referring Provider: Juan Trejo REASON FOR VISIT: Bilateral PCN exchange Order Questions Answers Is the patient on anticoagulant / antiplatelet therapy ? No Reason for exam and clinical history: b/l perc neph tubes due to obstructive urothelial carc. righttube obstructed wuth hydro. consult for replacement. Exam/Procedure requested: right perc neph tube exchange Planned procedure: Bilateral PCN exchange Labs to be performed day of procedure: No labs Sedation: No Sedation Prophylactic antibiotic : None (On Zosyn) Contrast: Omnipaque Additional medications for procedure: Lidocaine Planned access site: BL flank Position: Prone Consent: Scanned Medications to discontinue (and days held): None Case Urgency:: D2- Within 24 hours (i.e. can be next day) No Known Allergies Pertinent PMH: Patient Active [...] Cipro 500mg; SQ: 1% lidocaine (admin by MD); Topical; 2% lidocaine jelly 04/24/2022 Bilateral PCN [...] is unable to take cipro d/t treatment) 1510 to procedure room 4 via stretcher. Onto table prone. All monitors, O2, safety strap in place. Meds per protocol. Laboratory Results: Lab Results Component Value Date CREATININE 2.23 (H) 08/07/2023 Lab Results Component Value Date K 5.1 (H) 08/07/2023 Lab Results Component Value Date PLATELET 487 (H) 08/07/2023 documented in this encounter Procedure Notes * Guillermo Nice MD - 08/07/2023 3:44 PM EDT IR PROCEDURE NOTE Procedure: Bilateral nephrostomy tube exchange Indication for Procedure: Per Barb Lewis Jhony Bullard is a 73 y.o. female with PMH of chronic BL nephrostomy tubes who presents to Interventional Radiology to undergo bilateral PCN exchange. Per primary team, patient presenting with no right PCN output and right flank pain, imaging with hydronephrosis c/f obstructed tube. Plan for bilateral exchange to maintain same schedule. Procedure events and findings: After obtaining informed consent, patient was positioned prone on procedure table and sterile prep and drape performed, maximum sterile barrier technique was used throughout. Contrast injection via the existing left nephrostomy tube showed pigtail in left renal collecting system. The catheter was cut and a guide wire was advanced into the collecting system under fluoroscopy. Existing catheter removed over wire and a new 10Fr locking pigtail catheter placed, pigtail positioned in renal pelvis. Position was confirmed with contrast injection. Catheter was not anchored with suture but was connected to bag drainage. The same procedure was repeated on the right, again with placement of a 10 Greenlandic locking pigtail drainage catheter. Medications: 2% lidocaine gel topical. Est Blood Loss: <5cc. Complications: No immediate. Impression: 1. Bilateral 10 Fr nephrostomy tube exchange. 2. Will plan for routine exchange again in 6-7 weeks. Resident/Fellow: None. Attending: I, Dr. Nice performed this procedure. documented in this encounter Plan of Treatment Upcoming Encounters Date Type Department Care Team (Late st Contact Info) Description 12/08/2023 3:30 PM EDT Office Visit Hematology/Oncology at [address] [phone] Chase Mckay MD [facility] HEMATOLOGY [place] [address] documented as of this encounter Procedures Procedure Name Priority Date/Time Associated Diagnosis Comments IR NEPHROGRAM/NEPHROST CAYLA TUBE EXCHANGE BILATERAL STAT 08/07/2023 3:53 PM EDT documented in this encounter Results * IR Nephrogram/Nephrostomy Tube Exchange Bilateral (09/18/2023 12:34 PM EDT) Anatomical Region Laterality Modality X-Ray Angiograph y Narrative 09/18/2023 12:51 PM EDT Table formatting from the original result was not included. Images from the original result were not included. Interventional Radiology Procedure Note Procedure: Bilateral Nephrostomy Catheter Exchange Indication: Chronic indwelling bilateral nephrostomy catheters. ??Bilateral ureteral obstruction. Pre-procedure: Informed consent for the procedure including risks, benefits and alternatives was obtained and time-out was performed prior to the procedure. Maximum sterile barrier technique was used throughout the procedure. Sedation: The interventional radiology nurse monitored pulse, pressure, and oxygen saturation were continuously. Technique: The patient was positioned prone. Beginning with the left nephrostomy tube, local anesthetic was administered. Initial nephrostogram was performed. A wire was advanced through the existing catheter and navigated into the renal collecting system. ??Indwelling catheter was removed over the wire. A new 10 Fr nephrostomy tube was advanced over the wire. Wire access to the kidney was withdrawn and catheter position was confirmed with contrast injection. Catheter locking mechanism was secured. Catheter was affixed to the skin via adhesive anchoring device. ??A drainage bag was attached. The procedure was repeated on the right. Medications: None Contrast: 20 cc mL Omnipaque 350, intra urinary Fluoroscopy: 1.5 minutes, 5.45 mGy Estimated blood loss: 0 mL Complications: No immediate Findings: The previously placed right nephrostomy catheter was retracted into the lower pole calyx. ??The previously placed left nephrostomy catheter was in unchanged position within the renal pelvis. ??Exchange of both nephrostomy catheters with the pigtails formed within the renal pelvises. Impression: Successful exchange of bilateral nephrostomy catheters. Resident: Antione Dupree DO Attending of record: Jean Carlos Fenton DO. I, Dr. Fenton, was present throughout the procedure. 09/18/2023 ?? Guillermo Nice MD IMG IR ORDERABLES documented in this encounter Visit Diagnoses Diagnosis Metastatic urothelial carcinoma Secondary malignant neoplasm of other urinary organs Metastatic urothelial carcinoma Secondary malignant neoplasm of [...] thyroid function study documented in this encounter Care Teams Concession Supervisor Relationship Specialty Start Date End Date Tavia Ramirez, MILANESE KNITTING MACHINE OPERATOR [address] [place] [address] PCP - General Family Medicine 06/11/22 documented as of this encounter
--- OUTSIDE RECORDS SUMMARY | 2023-11-21 15:54 | XMS_ITS | Encounter Summary ---
[place] [address] Care Team Providers Care Business Asst Name Role Phone Tavia Ramirez APRN Primary Care Provider [phone] Reason for Referral * Diagnostic Test (Routine) - Closed Specialty Diagnoses / Procedures Referred By Contac t Referred To Contact Radiology Diagnoses Metastatic urothelial carcinoma Procedures IR Nephrogram/Nephrostomy Tube Exchange Bilateral Guillermo Nice MD [facility] [place] [address] [place] [address] Referral ID Status Reason Start Date Expiration Date V isits Requested Visits Authorized [id number] Closed Specialty Service Requested 08/07/2023 02/05/2025 1 1 Reason for Visit * Diagnostic Test (Routine) - Closed Specialty Diagnoses / Procedures Referred By Contac t Referred To Contact Radiology Diagnoses Metastatic urothelial carcinoma Procedures IR Nephrogram/Nephrostomy Tube Exchange Bilateral Guillermo Nice MD [facility] [place] [address] [place] [address] Referral ID Status Reason Start Date Expiration Date V isits Requested Visits Authorized [id number] Closed Specialty Service Requested 08/07/2023 02/05/2025 1 1 Encounter Details Date Type Department Care Team (Latest Contact Info) Description 09/18/2023 10:50 AM EDT - 09/18/2023 11:59 PM EDT Hospital Encounter Radiology at [facility] [place] [address] [facility] [place] [address] Metastatic urothelial carcinoma; BRITNI (acute kidney injury); [...] oz pur e alcohol) [facility] Utilities Answer Date Recorded In the past 12 months has th e [employer], gas, oil, or water eventuosity threatened to shut off services in your [...] place to sleep or slept in a fdc (including now)? No 08/08/2023 DH IPV Inpatient [...] Sign Reading Time Taken Comments Blood Pressure 137/88 09/18/2023 12:35 PM EDT Pulse 75 09/18/2023 11:29 AM EDT Temperature 36.5 ??C (97.7 ??F) 09/18/2023 12:35 PM E DT Respiratory Rate 16 09/18/2023 12:35 PM EDT Oxygen Saturation 97% 09/18/2023 12:35 PM EDT Inhaled Oxygen Concentration - - Weight - - Height - - Body Mass Index - - documented in this encounter Discharge Instructions * Discharge Instructions* Katelin Lara RN - 09/18/2023 12:24 PM EDT Images from the original note were not included. [facility] Vascular and Interventional Radiology Discharge [...] connecting tubing from the drain. Put a covered buckle assembler on both the drain and the bag. [...] is during regular office hours, please call [phone]. If it is after regular office hours, or on weekends or holidays, please call [phone] and ask to speak to the Remote Broadcast Engineer rewards consultant for Interventional Radiology. You have received medication [...] as of this encounter Progress Notes * Katelin Arriaza RN - 09/18/2023 12:00 PM EDT [facility] Name: Barb Bullard Date of : 1950 AGE: 73 y.o. [address]: [address] [place] [id number] (home) Mobile: Telephone Information: Referring Provider: Guillermo Nice REASON FOR VISIT: Order Questions Answers Where will study be performed? 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 Is the patient on anticoagulant / antiplatelet therapy ? No Planned procedure: Bilateral Nephrostomy Tube Exchange (routine) Labs to be performed day of procedure: No labs Sedation: No Sedation Prophylactic antibiotic : None Contrast: No contrast Additional medications for procedure: Lidocaine Planned access site: Bilateral Flank Position: Prone Consent: Scanned Medications to discontinue (and days held): None Case Urgency:: G2- Elective Outpatient intervention within 8-14 days No Known Allergies Pertinent PMH: Patient [...] 09/18/23 Bilateral PCN exchange Lido Gel 2% 1200 to procedure room IR1 via stretcher. Onto table prone. All monitors per protocol. Meds per protocol. Laboratory Results: Lab Results Component Value Date CREATININE 1.74 (H) 08/19/2023 Lab Results Component Value Date K 4.1 08/19/2023 Lab Results Component Value Date PLATELET 559 (H) 08/19/2023 documented in this encounter Plan of Treatment Upcoming Encounters Date Type Department Care Team (Late st Contact Info) Description 12/08/2023 3:30 PM EDT Office Visit Hematology/Oncology at [address] [address] [facility] [address] [place] [address] documented as of this encounter Procedures Procedure Name Priority Date/Time Associated Diagnosis Comments IR NEPHROGRAM/NEPHROST CAYLA TUBE EXCHANGE BILATERAL Routine 09/18/2023 12:34 PM EDT Metastatic urothelial carcinoma documented in this encounter Results * IR [...] 1-400 mL, Other, ONCE, 1 dose, On Nicolasa 09/18/23 at 1200, For intra-procedural use by proceduralist., Angio/IR (Intra-Procedure), Routine Given 09/18/2023 12:00 PM EDT 12 mLs lidocaine (Glydo) 2 % gel 6 mL 6 mL, Topical (Top), EVERY 4 HOURS PRN, Starting on Nicolasa 09/18/23 at 1137, Until Nicolasa 09/18/23 at 1238, Pain, For use in Interventional Radiology (IR) only for procedure with direct provider supervision and verbal order., Angio/IR (Intra-Procedure), Routine Given 09/18/2023 11:39 AM EDT 6 mLs documented in this encounter Care Teams Business Asst Relationship Specialty Start Date End Date Tavia Ramirez, CUTTING TORCH OPERATOR [facility] [address] PCP - General Family Medicine 06/11/22 documented as of this encounter
--- OUTSIDE RECORDS SUMMARY | 2023-11-21 15:54 | XMS_ITS | Encounter Summary ---
Author Organization [facility] Address [facility] Jose Roberto pelaez [place] [id number] Care Team Providers Care Colorman Name Role Phone James Tavia Foster APRN Primary Care Provider [phone] Reason for Visit * Reason Comments Flank Pain * Auth/Cert (Routine) Specialty Diagnoses / Procedures Referred By Contac t Referred To Contact Diagnoses BRITNI (acute kidney injury) [place] [address] [facility] Referral ID Status Reason Start Date Expiration Date Visits Re quested Visits Authorized [id number] 1 1 Encounter Details Date Type Department Care Team (Latest Contact Info) Description 08/07/2023 3:16 AM EDT - 08/10/2023 10:55 AM EDT Hospital Encounter Medical Specialties Unit Level 2 [place] [id number] Cecile Edwards MD [facility] [place] [address] Yu Corbett MD [facility] [place] [address] [place] [address] [place] [address] [place] [address] [place] [address] Pyelonephritis, acute Discharge Disposition: Home Social History Tobacco Use Types Packs/Day Years Used Date Smoking Tobacco: Former Cigarettes Q uit: 07/04/2014 Smokeless Tobacco: Never Alcohol Use Standard Drinks/Week Comments Not Currently 0 (1 standard drink = 0.6 oz pur e alcohol) [facility] Utilities Answer Date Recorded In the [...] in a snf (including now)? No 08/08/2023 DH IPV Inpatient [...] Sign Reading Time Taken Comments Blood Pressure 126/73 08/10/2023 6:30 AM EDT Pulse 83 08/07/2023 2:15 PM EDT Temperature 36.5 ??C (97.7 ??F) 08/10/2023 6:30 AM ED T Respiratory Rate 14 08/10/2023 6:30 AM EDT Oxygen Saturation 98% 08/10/2023 6:30 AM EDT Inhaled Oxygen Concentration - - Weight 68.5 kg (151 lb 1.6 oz) 08/10/2023 6:00 A M EDT Height 162.6 cm (5' 4) 08/07/2023 3:25 AM EDT Body Mass Index 25.94 08/07/2023 3:25 AM EDT documented in this encounter Discharge Summaries * Kevin Quezada, ALESSANDRO - 08/10/2023 10:13 AM EDT Discharge Summary Patient Name: Mitesh Bullard Patient Age: 73 y.o. Language: Mozambican Race: White Ethnicity: Not nor Admit date: 08/07/2023 Discharge date and time: 08/10/2023 Attending Physician: Jamin Loco MD Discharge Provider: Kevin Quezada APRN Follow-up Recommendations for Providers: Bilateral nephrostomy tubes exchanged 08/06 by IR. Transitioned to Augmentin at discharge to complete a total of 14 days for pyelonephritis with urine culture revealing proteus vulgaris, enterococcus faecalis sensitive to Ampicillin and staphylococcus aureus after discussing with our Infectious Disease team. She responded well to antibiotic therapy with resolution of her symptoms and leukocytosis.The significance of the staphylococcus aureus is unclear at this time and perhaps a contaminant given her significant improvement on her antibiotic course. At time of discharge the susceptibility testing for the staphylococcus was still in process. Her blood cultures dates 08/06 were NGTD x 2 days. Should her staphylococcus show MRSA, may consider adding on MRSA coverage at follow up appointment. Adagrasib was held upon admission in the setting of active infection. Unable to hear from Oncology about resuming by time of discharge. Patient advised to follow up with her Oncologist when she is home from the hospital for further guidance on resuming. Medication changes at discharge: - Start Augmentin (500mg Q 12 hours), renally dosed for CrCl 27 to complete a total 14 day course - Start Dilaudid PRN for pain for short course in the setting of improving BRITNI - Stop Tramadol with plan to resume following repeat BMP at follow up - Adagrasib held at time of discharge, patient will follow up with Dr. Mckay directly Inpatient Provider Contact Information: For questions regarding this document or issues relating to this hospitalization on the Medical Service, please contact your inpatient physician through the [facility] Applications Support Analyst . Issues afterhours and on weekends will be handled by the Hospitalist staff on-call. Discharge Diagnoses (Hospital Problems) and Secondary Diagnoses (Chronic Problems): Active Hospital Problems Diagnosis BRITNI (acute kidney injury) Resolved Hospital Problems No resolved problems to display. 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 History of Presentation: As Per H&P from 08/07/23 Mitesh Bullard is a 73 y.o. female metastatic urothelial cell carcinoma (2020, with obstructive (B/LNephrostomy tubes, pembro), Adenocarcinoma on left lower lobe s/p cryo de-bulking & pembro-->Adagrasib), presented for right flank pain in setting of right nephrostomy tube obstruction. Initially presented to ED concerned for nephrostomy tubes not working. Recently had issues with them requiring repositioning and 7 day course of bactrim for possible pyelo. She was in her usoh post discharge (07/09) until 7 PM last night when she developed mild right flank pain with nausea and noteddecreased urine output from her right perc nephrostomy tube. She took tramadol and went to sleep. Woke up around 1AM with severe right flank pain with vomiting and no drainage from right tube whatsoever. So she presented to ED. On ROS she notes that with intermittent coughing she feels more congested than usual like she is coming down with a cold. But no pain, no issues with taking deep breaths. Over the past weeks/monthson adagrasib she feels at though her exercise tolerance is a bit down compared to last year. In ED vitals were stable and WNL, labs notable for WBC of 20. CT AP with evidence of right sided pyelonephritis and hydrouretero/nephrosis concerning for obstruction. Also noted to have fluid collection concerning for possible loculated empyema vs pulmonary abscesses in left lung base. ONC HISTORY: Diagnosed with obstructive urothelial carcinoma managed with B/L perc neph tubes, subsequntly foundto have separate LLL adenocarcinoma of the lung. These were treated with pembrolizumab. Her lung cancer was initially managed well with pembro but PET in December 2022 showed worsening lung disease (new pleural implants bilaterally and worsening adenopathy). As such, Pembrolizumab was discontinuedand she was started on Adagrasib in April 2023 (later dose reduced for nausea). Planned for restaging PET this month to assess response to Adagrasib Hospital Course: #Urinary Obstruction with BRITNI and hyperkalemia #Hyperkalemia #Nephrostomy tubes #Hydroureteronephrosis Patient was given aggressive IVF hydration and potassium improved and her creatinine and hypotension improved. Patient was initiated on Zosyn switched to ceftriaxone and she became more clinically stable, probiotic was added as the patient is immunosuppressed. IR was able exchange her B/L nephrostomy tubes on08/06, she tolerated the procedure well and the patient then had excellent urinary output improved discomfort. Patient was switched to dilaudid over tramadol in the setting of elevated Cr. Her Cr at the time of discharge was 1.76. Her baseline renal function is unclear, but per trend her Cr. Averageseems ~ 1.5. She was ultimately transitioned to Augmentin based on UA susceptibilities to complete a total 14 day course (see provider follow up section above). #Lung adenocarcinoma LLL- s/p pembro now on Adagrasib #LLL fluid collection- Thoracic surgery was consulted- no indication for drainage at this time, they felt that it was mostlikely a malignant effusion over an infectious source. Patient did not have any signs of respiratory distress and remain on room air throughout her admission. Adagrasib was placed on hold in the setting acute setting of acute infection, Unable to discuss with her Oncologist Dr. Mckay prior to discharge. She was advised to call office upon returning home forfurther guidance. Patient is schedule for a repeat PET scan on 08/19/23. #Hypothyroidism Continued home synthroid 75mcg. Vital Signs at Discharge: BP: 126/73, Heart Rate: 83, Temp: 36.5 ??C (97.7 ??F), Resp: 14, BMI (Calculated): 26.6 Height: 162.6 cm (5' 4) (08/07/23 0325) Weight: 68.5 kg (151 lb 1.6 oz) (08/10/23 0600) Functional and Cognitive Status: Stable Important Studies and Lab Data: Labs: Last wbc, hgb, hct plt Recent Labs 08/10/23448 WBC 6.9 HGB 10.7* HCT 34.9* Last 3 wbc, hgb, hct plt Recent Labs 08/10/2344808/09/23 0656 08/08/23 0658 WBC 6.9 7.8 10.8* HGB 10.7* 10.4* 10.2* HCT 34.9* 32.9* 32.4* PLATELET 427* 416* 383* Last 3 Lytes Recent Labs 08/10/2344808/09/23 0656 08/08/23 0658 NA 140 137 135 K 4.4 4.1 4.3 CL 112* 110* 107 CO2 20* 20* 21* BUN 17 18 24* CREATININE 1.76* 1.90* 2.14* Results for orders placed or performed during the hospital encounter of 08/07/23 CT Abdomen & Pelvis wo Contrast (Exam End: 08/07/2023 5:48 AM) Impression * Progressive organization of left chest loculated empyemas versus intrapulmonary abscesses. * Increased small left pleural effusion. * Peribronchial thickening in bilateral lower lungs may reflect atelectasis or atypical infection/inflammation. * Unchanged dilation of common bile duct up to 23 mm. * New fat stranding adjacent to pancreatic head and uncinate process may reflect focal pancreatitis or extension of right perinephric inflammation. * Persistent moderate hydroureteronephrosis and increased findings of right pyelonephritis/ureteritis despite a right percutaneous nephrostomy tube in unchanged position are concerning for urinary obstruction. Functional assessment of the nephrostomy is recommended. * Suspected stricture of the distal ureter. Consider further evaluation with a CT urogram. Thank you for letting us participate in the care of this patient. If you are a health care provider and have any questions regarding this report, please contact the number below. For patients who have questions please contact the health health care specialist that requested your imaging first. Electronically signed by: Lena Wu MD, [facility] ([phone]), at 08/07/2023 7:11 AM Pending Studies and Lab Data: Blood cultures 08/06 NGTD x 2 days Discharge Conditions/Prognosis: Stable Discharge to: Home Updated Allergies/ADRs: No Known Allergies Immunizations Given this Hospitalization: Immunization History Administered Date(s) Administered Influenza (Fluzone HD) Quadrivalent High Dose, Preservative Free 03/20/2021 Discharge Medications: Your Medications New Medications Dose Details amoxicillin-clavulanate 500-125 mg tablet Commonly known as: Augmentin Take 1 tablet by mouth every 12 hours. 1 tablet Quantity: 20 tablet Refills: 0 HYDROmorphone 2 mg tablet Commonly known as: Dilaudid Take 1 tablet by mouth every 6 hours as needed for Pain (As needed for breakthrough pain). 2 mg Quantity: 20 tablet Refills: 0 lactobacillus with pectin 75 million cell -100 mg Capsule Take 1 capsule by mouth daily. 1 capsule Quantity: 30 capsule Refills: 0 Continued medications, unchanged Dose Details acetaminophen 500 mg tablet Commonly known as: Tylenol Take 1,000 mg by mouth every 8 hours as needed for Pain. 1,000 mg Refills: 0 levothyroxine 75 mcg tablet Commonly [...] needed for Constipation. 1 tablet Refills: 0 STOPPED Medications Krazati 200 mg tablet Generic drug: adagrasib traMADoL 50 mg tablet Commonly known as: Ultram Smoking Status at Discharge: Social History Tobacco Use Smoking Status Former Types: Cigarettes Quit date: 07/04/2014 Years since quittin.1 Smokeless Tobacco Never Instructions Given to Patient at Discharge: Patient Instructions Instructions on Discharge to Home Why you were hospitalized: Pyelonephritis, acute kidney injury, and required your nephrostomy tubesto be replaced Specific instructions related to your condition: You were discharged home with an antibiotic medication called Augmentin to continue treating your urinary infection. We have requested a follow up appointment with your PCP, they will call you directly to schedule. We held your chemotherapy medication while you were hospitalized. Please call Dr. Mckay's office on Friday to determine whether and when they recommend you resume this. Medication changes at discharge: - Start Augmentin to complete a total 14 day course - you will take 10 days if this as you received4 days of antibiotics in the hospital - Start probiotic for 30 days while on antibiotics - Start Dilaudid as needed for pain for short course in the setting of improving acute kidney injury - Stop Tramadol with plan to resume following repeat BMP at follow up - Adagrasib held at time of discharge, please will follow up with Dr. Mckay directly Call your doctor or seek medical attention if you develop the following - chest pain, shortness of breath, fever, cough, weakness in an arm or leg Activity level: no restrictions Diet: no change in previous diet Driving: as before hospitalization. Please do not drive while on narcotics. Shower/Bath: permitted Wound Care: See instructions attached Your Medications (see discharge med list for full instructions): Follow-up: Future Appointments Date Time Provider Department Center 08/19/2023 10:45 AM ACCESS ROOM [facility] INF 3K [facility] 08/19/2023 12:[address] [facility] NM PET HOLD Nuc Med [facility] Rad 08/19/2023 1:[address] [facility] NM PET [address] [facility] Rad 08/25/2023 1:00 PM Chase Mckay MD [facility] 08/26/2023 1:00 PM Jose Lange MD [facility] Your Inpatient Doctor: CECILE EDWARDS, YU SANCHEZ, ISMAEL DISLA, AALIYAH COLUNGA, KYRA Avery Your Primary Care Provider: Tavia Ramirez APRN For questions regarding this document or issues relating to this hospitalization on the Medical Service, please contact your inpatient physician through the [facility] Applications Support Analyst . Issues afterhours and on weekends will be handled by the Hospitalist staff on-call. The Section of Hospital Medicine hopes you have a safe and stress free transition out of the hospital. As an additional safeguard to help this transition happen seamlessly we have created a tool to help us stay in communication in case there are any questions or concerns after your discharge. If you are not being discharged to another care setting, where they will take over your medical care, please anticipate a brief questionnaire from our Section that will help us ensure you do not have any issues with your discharge and are as safe and healthy as possible. This questionnaire will be sent out after your discharge, and will be delivered via text primarily but also email if texting is not possible. If there do happen to be any issues or concerns once you leave [facility], we apologize for any undue stress this may cause. Please do not hesitate to call your PCP office or seek further medical assistance if there are any immediate [facility]. This questionnaire is not meant to provide immediate access to a physician, but has been created to help us ease the transition out of the hospital. Someone from our Section will reach out after the questionnaire is completed if you have raised any concerns, or have requested a callback, to help ensure your concerns are addressed and a plan is made to keep you safe and healthy. Thankyou in advance for your time completing this questionnaire. General Instructions None Future Appointments and Orders Future Appointments and Orders Future Appointments Provider Department Dept Phone 08/19/2023 10:45 AM ACCESS ROOM Hematology and Oncology at [facility] Arrive at: [facility] [employer] Area [phone] 08/19/2023 1:00 PM [facility] PET 1 Nuclear Medicine at [facility] Arrive at: 3Z RADIOLOGY [phone] 08/25/2023 1:00 PM Dianne Jacob APRN; Chase Mckay MD Hematology/Oncology at [facility] Arrive at: [facility] door at end of hallway [phone] 08/26/2023 1:00 PM Katherine Sepulveda APRN; Jose Lange MD Hematology/Oncology at [facility] Arrive at: [facility] door at end of hallway [phone] Discharge References/Attachments Nephrostomy Tube Care (Mozambican) documented in this encounter Discharge Instructions * Patient Instructions* Kevin Quezada APRN - 08/08/2023 6:45 AM EDT Instructions on Discharge to Home Why you were hospitalized: Pyelonephritis, acute kidney injury, and required your nephrostomy tubesto be replaced Specific instructions related to your condition: You were discharged home with an antibiotic medication called Augmentin to continue treating your urinary infection. We have requested a follow up appointment with your PCP, they will call you directly to schedule. We held your chemotherapy medication while you were hospitalized. Please call Dr. Mckay's office on Friday to determine whether and when they recommend you resume this. Medication changes at discharge: - Start Augmentin to complete a total 14 day course - you will take 10 days if this as you received4 days of antibiotics in the hospital - Start probiotic for 30 days while on antibiotics - Start Dilaudid as needed for pain for short course in the setting of improving acute kidney injury - Stop Tramadol with plan to resume following repeat BMP at follow up - Adagrasib held at time of discharge, please will follow up with Dr. Mckay directly Call your doctor or seek medical attention if you develop the following - chest pain, shortness of breath, fever, cough, weakness in an arm or leg Activity level: no restrictions Diet: no change in previous diet Driving: as before hospitalization. Please do not drive while on narcotics. Shower/Bath: permitted Wound Care: See instructions attached Your Medications (see discharge med list for full instructions): Follow-up: Future Appointments Date Time Provider Department Center 08/19/2023 10:45 AM ACCESS ROOM [facility] INF 3K [facility] 08/19/2023 12:00 PM [facility] NM PET HOLD [facility] Nuc Med [facility] Rad 08/19/2023 1:00 PM [facility] NM PET 1 MH Nuc Med [facility] Rad 08/25/2023 1:00 PM Chase Mckay MD [facility] 08/26/2023 1:00 PM Jose Lange MD [facility] Your Inpatient Doctor: CECILE EDWARDS, YU SANCHEZ, ISMAEL DISLA, KYRA GRENE Your Primary Care Provider: Tavia Ramirez APRN For questions regarding this document or issues relating to this hospitalization on the Medical Service, please contact your inpatient physician through the [facility] Applications Support Analyst . Issues afterhours and on weekends will be handled by the Hospitalist staff on-call. The Section of Hospital Medicine hopes you have a safe and stress free transition out of the hospital. As an additional safeguard to help this transition happen seamlessly we have created a tool to help us stay in communication in case there are any questions or concerns after your discharge. If you are not being discharged to another care setting, where they will take over your medical care, please anticipate a brief questionnaire from our Section that will help us ensure you do not have any issues with your discharge and are as safe and healthy as possible. This questionnaire will be sent out after your discharge, and will be delivered via text primarily but also email if texting is not possible. If there do happen to be any issues or concerns once you leave [facility], we apologize for any undue stress this may cause. Please do not hesitate to call your PCP office or seek further medical assistance if there are any immediate [facility]. This questionnaire is not meant to provide immediate access to a physician, but has been created to help us ease the transition out of the hospital. Someone from our Section will reach out after the questionnaire is completed if you have raised any concerns, or have requested a callback, to help ensure your concerns are addressed and a plan is made to keep you safe and healthy. Thankyou in advance for your time completing this questionnaire. * Attachments The following attachments cannot be sent through Care Everywhere. * Nephrostomy Tube Care (Mozambican) documented in this encounter Medications at Time [...] as of this encounter Progress Notes * Kevin Quezada, ALESSANDRO - 08/10/2023 10:25 AM EDT Hospital Medicine - Day of Discharge Documentation Discharge diagnosis Active Hospital Problems Diagnosis BRITNI (acute kidney injury) Resolved Hospital Problems No resolved problems to display. 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 I spent >30 minutes (Day of Discharge Code 83082) involved in the final examination of the patient, discussion of the hospital stay, instructions for continuing care to all relevant caregivers, and preparation of discharge records, prescriptions and referral forms. Plans Discharge to home Follow-up scheduled with Oncology and requesting PCP Please see the Discharge Summary for complete details of any medication changes and additional plans. * Christina Patten RN - 08/10/2023 10:18 AM EDT Pt discharged home via private vehicle at approximatelt 11AM. AVS printed and reviewed with patient. PIV removed. * Kevin Quezada APRN - 08/09/2023 8:44 AM EDT MEDICINE PAGER [phone] - [facility] Medicine Attending Daily Progress Note Page [phone] to reach a provider 18/11 Admit Date: 08/07/2023 Encounter Date August 09, 2023 Anticipated Discharge Date: 08/11/2023 Hospital Day: 2 24 Hour Events/Subjective: - s/p Patient had B/L Nephrostomy tubes exchanged by IR 08/06 - Patient reports her pain is much better, still sore more so R>L no fever/chills - Zosyn switched to Ceftriaxone today 08/07 - Adagrasib on hold, f/u with Oncologist, unable to get through, will likely discharge home off of it with recommendation for phone call to Oncology team once home - Leukocytosis resolved -Will continue IV antibiotics today, anticipate transitioning to PO possible tomorrow for dischargehome. Pending renal function, will dictate medication and dose, but leaning towards renally dosed Cefpodoxime as responding well to IV CTX. Objective: Last value Range last 24 hrs Temp: 36.6 ??C (97.9 ??F) Temp: [36.4 ??C (97.5 ??F)-36.7 ??C (98.1 ??F)] Heart Rate: 83 Heart Rate from SpO2: 63 bpm Heart Rate: -- BP: 127/56 BP: (106-127)/(56-68) Resp: 18 Resp: [16-18] SpO2: 98 % SpO2: [94 %-98 %] Height: 162.6 cm (5' 4) Weight: 71 kg (156 lb 8 oz) BMI (Calculated): 26.6 BMI Classification: Over Weight Intake/Output Summary (Last 24 hours) at 08/09/2023 0844 Last data filed at 08/09/2023 0328 Gross per 24 hour Intake 375 ml Output 1450 ml Net -1075 ml Patient Vitals for the past 72 hrs: Weight 08/09/23 0536 71 kg (156 lb 8 oz) 08/07/23 1953 70.9 kg (156 lb 3.2 oz) 08/07/23 0325 70.3 kg (155 lb) Physical Exam: Gen: Pleasant female sitting up in bed, NAD HEENT: NC/AT, PEERL, non-icteric sclera, MMM, no JVD or lymphadenopathy Cardio: RRR s1s2 Pulm: CTA B/L, dim at the bases, no crackles or wheezes GI: softly distended, + BS throughout, non-tender, non-distended B/L PCNs in place with clear yellow urine Extrem: No edema B/L, 2+ DP pulses Neuro/Psych: A+Ox3, no neuro deficits, no tremors, normal speech, patient is pleasant, calm and cooperative PERTINENT LABS: Last 3 wbc, hgb, hct plt Recent Labs 08/09/23 0656 08/08/23 0658 08/07/23 2255 WBC 7.8 10.8* 13.0* HGB 10.4* 10.2* 9.9* HCT 32.9* 32.4* 31.9* PLATELET 416* 383* 400* Last 3 Lytes Recent Labs 08/09/23 0656 08/08/23 0658 08/07/23 2255 NA 137 135 137 K 4.1 4.3 4.3 CL 110* 107 108* CO2 20* 21* 18* BUN 18 24* 24* CREATININE 1.90* 2.14* 2.20* CONSULTANTS: IP ADMISSION REQUEST IP CONSULT TO PHYSICAL THERAPY Assessment: Mitesh Bullard is a 73 y.o. female metastatic urothelial cell carcinoma with obstructive renal failure (B/L Nephrostomy tubes placed 2020), Adenocarcinoma on left lower lobe s/p cryo de-bulking & pembro-->Adagrasib), who presented to the ED with flank pain and right obstructed nephrostomy tube who was found to have BRITNI and acute pyelonephritis. Now s/p b/l nephrostomy tube exchange by IR 08/06. Continues to improve on Ceftriaxone for pyelonephritis with UA indicating proteus vulgaris sensitive to above. Plan: #Urinary Obstruction with BRITNI and hyperkalemia #Hydroureteronephrosis #Pyelonephritis #Proteus vulgaris #BRITNI on CKD - Zosyn (08/06 - 08/07) switched to ceftriaxone (08/07 - present) - IR exchanged B/L nephrostomy tubes on 08/06 - hold home tramadol. PRN dilaudid for now - monitor Is and Os, encourage PO intake -Trend Cr and electrolytes - Urine culture w/ proteus vulgaris sensitive to CTX - plan to transition to Cefpodoxime when discharging #Lung adenocarcinoma LLL- s/p pembro now on Adagrasib #LLL fluid collection- possible Empyema, favor tumor necrosis - Thoracic surgery consulted- no indication for drainage at this time - Hold adagrasib in acute setting, will f/u Oncologist - planned repeat PET later this month #Hypothyroidism - home synthroid 75mcg #Housekeeping: - DVT PPx: SQH in setting of BRITNI - Diet: Regular - Level of care: Floor - Code Satus: DNR Diet: Regular diet Last BM documented: 08/06/23 (per pt) DVT Prophylaxis: Heparin Daily Checklist: Last Family Communication: Daughter at bedside 08/08/23 Discharge Location: AM-PAC Basic Mobility Raw Score: 18 PT: OT: Code status Do NOT Attempt CPR - Inpatient PCP Tavia Ramirez APRN [phone] Active Hospital Problems Diagnosis BRITNI (acute kidney injury) Resolved Hospital Problems No resolved problems to display. * Kristin Montejo PA - 08/08/2023 6:03 PM EDT MEDIC[facility]AG[facility] [phone] - [facility] Hospital Medicine Attending Daily Progress Note Page [phone] to reach a provider 18/11 Admit Date: 08/07/2023 Encounter Date August 08, 2023 Anticipated Discharge Date: 08/11/2023 Hospital Day: 1 24 Hour Events/Subjective: - Patient had B/L Nephrostomy tubes exchanged by IR and feeling much better - Patient reports her pain is doing much better, denies any fevers or chills - Zosyn switched to Ceftriaxone today - Additional IVF hydration given today and patient encouraged to increase PO intake - Adagrasib on hold, f/u with Oncologist Dr. Mckay for restart- [phone] Objective: Last value Range last 24 hrs Temp: 36.4 ??C (97.5 ??F) Temp: [36.4 ??C (97.5 ??F)-36.9 ??C (98.4 ??F)] Heart Rate: 83 Heart Rate from SpO2: 79 bpm Heart Rate: -- BP: 122/65 BP: (88-122)/(48-68) Resp: 18 Resp: [14-18] SpO2: 96 % SpO2: [95 %-97 %] Height: 162.6 cm (5' 4) Weight: 70.9 kg (156 lb 3.2 oz) BMI (Calculated): 26.6 BMI Classification: Over Weight Intake/Output Summary (Last 24 hours) at 08/08/2023 1804 Last data filed at 08/08/2023 1600 Gross per 24 hour Intake 750 ml Output 1700 ml Net -950 ml Patient Vitals for the past 72 hrs: Weight 08/07/23 1953 70.9 kg (156 lb 3.2 oz) 08/07/23 0325 70.3 kg (155 lb) Physical Exam: Gen: Pleasant chronically ill appearing female laying down in bed resting comfortably, NAD HEENT: NC/AT, PEERL, non-icteric sclera, MMM, no JVD or lymphadenopathy Cardio: RRR s1s2 Pulm: CTA B/L, dim at the bases, no crackles or wheezes GI: softly distended, + BS throughout, non-tender, non-distended B/L PCNs in place with clear yellow urine Extrem: No edema B/L, 2+ DP pulses Neuro/Psych: A+Ox3, no neuro deficits, no tremors, normal speech, patient is pleasant, calm and cooperative PERTINENT LABS: Last 3 wbc, hgb, hct plt Recent Labs 08/08/23 0658 08/07/23 2255 08/07/23 0435 WBC 10.8* 13.0* 20.4* HGB 10.2* 9.9* 12.7 HCT 32.4* 31.9* 40.3 PLATELET 383* 400* 487* Last 3 Lytes Recent Labs 08/08/23 0658 08/07/23 2255 08/07/23 0436 NA 135 137 140 K 4.3 4.3 5.1* CL 107 108* 108* CO2 21* 18* 20* BUN 24* 24* 25* CREATININE 2.14* 2.20* 2.23* CONSULTANTS: IP ADMISSION REQUEST IP CONSULT TO PHYSICAL THERAPY Assessment: Mitesh Bullard is a 73 y.o. female metastatic urothelial cell carcinoma (2020, with obstructive (B/LNephrostomy tubes, pembro), Adenocarcinoma on left lower lobe s/p cryo de-bulking & pembro-->Adagrasib), who presented to the ED with flank pain and right obstructed nephrostomy tube who was found to have BRITNI and acute pyelonephritis. Plan: #Urinary Obstruction with BRITNI and hyperkalemia #Hyperkalemia #Nephrostomy tubes #Hydroureteronephrosis - Zosyn switched to ceftriaxone, probiotic added - IR exchanged B/L nephrostomy tubes on 08/06 - hold home tramadol. PRN dilaudid for now - monitor Is and Os, encourage PO intake -Trend Cr and electrolytes - follow up urine cultures #Lung adenocarcinoma LLL- s/p pembro now on Adagrasib #LLL fluid collection- possible Empyema, favor tumor necrosis - Thoracic surgery consulted- no indication for drainage at this time - Hold adagrasib in acute setting, will f/u Oncologist - planned repeat PET later this month #Hypothyroidism - home synthroid 75mcg #Housekeeping: - DVT PPx: SQH in setting of BRITNI - Diet: No diet orders on file - Level of care: Floor - Code Satus: DNR Diet: Regular diet Last BM documented: 08/06/23 (per pt) DVT Prophylaxis: Heparin Daily Checklist: Last Family Communication: Daughter at bedside 08/08/23 Discharge Location: AM-PAC Basic Mobility Raw Score: 17 PT: OT: Code status Do NOT Attempt CPR - Inpatient PCP Tavia Ramirez, CARDIAC/VASCULAR SONOGRAPHER [phone] Active Hospital Problems Diagnosis BRITNI (acute kidney injury) Resolved Hospital Problems No resolved problems to display. documented in this encounter H&P Notes * Alin Caal MD - 08/07/2023 12:37 PM EDT Images from the original note were not included. Hospital Medicine Admission History and Physical Patient Name: MITESH BULLARD Date of : 1950 Age: 73 y.o. Hospital Admit Date: 08/07/2023 Inpatient Attending: Ismael Sanchez MD PCP: Tavia Ramirez APRN Presenting Diagnosis/Chief Complaint: Empyema History of Present Illness: Mitesh Bullard is a 73 y.o. female metastatic urothelial cell carcinoma (2020, with obstructive (B/LNephrostomy tubes, pembro), Adenocarcinoma on left lower lobe s/p cryo de-bulking & pembro-->Adagrasib), presented for right flank pain in setting of right nephrostomy tube obstruction. Initially presented to ED concerned for nephrostomy tubes not working. Recently had issues with them requiring repositioning and 7 day course of bactrim for possible pyelo. She was in her usoh post discharge (07/09) until 7 PM last night when she developed mild right flank pain with nausea and noteddecreased urine output from her right perc nephrostomy tube. She took tramadol and went to sleep. Woke up around 1AM with severe right flank pain with vomiting and no drainage from right tube whatsoever. So she presented to ED. On ROS she notes that with intermittent coughing she feels more congested than usual like she is coming down with a cold. But no pain, no issues with taking deep breaths. Over the past weeks/monthson adagrasib she feels at though her exercise tolerance is a bit down compared to last year. In ED vitals were stable and WNL, labs notable for WBC of 20. CT AP with evidence of right sided pyelonephritis and hydrouretero/nephrosis concerning for obstruction. Also noted to have fluid collection concerning for possible loculated empyema vs pulmonary abscesses in left lung base. ONC HISTORY: Diagnosed with obstructive urothelial carcinoma managed with B/L perc neph tubes, subsequntly foundto have separate LLL adenocarcinoma of the lung. These were treated with pembrolizumab. Her lung cancer was initially managed well with pembro but PET in December 2022 showed worsening lung disease (new pleural implants bilaterally and worsening adenopathy). As such, Pembrolizumab was discontinuedand she was started on Adagrasib in April 2023 (later dose reduced for nausea). Planned for restaging PET this month to assess response to Adagrasib Review of Systems(Positives in Bold): General: fevers, chills, night sweats; fatigue EENT: changes in vision; changes in hearing; rhinorrhea, congestion, sinus pain, sore throat Cardiovascular: chest pain; palpitations; dizziness or lightheadedness, edema Respiratory: SOB, HOLLEY , subjective congestion with cough, no increased frequency,wheeze GI: abdominal pain; nausea, vomiting, diarrhea, or constipation, blood in stool : dysuria; urgency, frequency, hesitancy Musculoskeletal: muscle or joint pain Endocrine: heat or cold intolerace; polyuria/polydipsia Heme: easy bruising or bleeding Neuro: headaches; numbness or tingling; weakness;incoordination Psych: mood good Past Medical History: No past medical history on file. 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 IR NEPHROGRAM/NEPHROSTOMY TUBE EXCHANGE BILATERAL 04/24/2022 IR Nephrogram/Nephrostomy Tube Exchange Bilateral 04/24/[address] [facility] IR NEPHROGRAM/NEPHROSTOMY TUBE EXCHANGE BILATERAL 07/26/2022 IR Nephrogram/Nephrostomy Tube Exchange Bilateral 07/26/[address] [facility] IR NEPHROGRAM/NEPHROSTOMY TUBE EXCHANGE BILATERAL 10/18/2022 IR Nephrogram/Nephrostomy Tube Exchange Bilateral 10/18/2022 Alexis De La Cruz MD [facility] IR NEPHROGRAM/NEPHROSTOMY TUBE EXCHANGE BILATERAL 12/11/2022 IR Nephrogram/Nephrostomy Tube Exchange Bilateral 12/11/2022 Alexis De La Cruz MD [facility] IR NEPHROGRAM/NEPHROSTOMY TUBE EXCHANGE BILATERAL 02/13/2023 IR Nephrogram/Nephrostomy Tube Exchange Bilateral 02/13/[address] [facility] IR NEPHROGRAM/NEPHROSTOMY TUBE EXCHANGE BILATERAL 04/04/2023 IR Nephrogram/Nephrostomy Tube Exchange Bilateral Alin Dillard MD [facility] IR NEPHROGRAM/NEPHROSTOMY TUBE EXCHANGE BILATERAL 04/25/2023 IR Nephrogram/Nephrostomy Tube Exchange Bilateral [facility] IR NEPHROGRAM/NEPHROSTOMY TUBE EXCHANGE BILATERAL 06/19/2023 IR Nephrogram/Nephrostomy Tube Exchange Bilateral Alexis De La Cruz MD [facility] IR NEPHROGRAM/NEPHROSTOMY TUBE EXCHANGE BILATERAL 07/09/2023 IR Nephrogram/Nephrostomy Tube Exchange Bilateral 07/09/[address] [facility] IR NEPHROSTOMY TUBE PLACEMENT PERCUTANEOUS BILATERAL 02/20/2021 IR Nephrostomy Tube Placement Percutaneous Bilateral [facility] IR NEPHROURETERAL (NU) STENT PLACEMENT/CHECK/CHANGE 07/13/2021 IR Nephroureteral (NU) Stent Placement Check/Change 07/13/2021 Alexis De La Cruz MD [facility] IR NEPHROURETERAL (NU) STENT PLACEMENT/CHECK/CHANGE 10/23/2021 IR Nephroureteral (NU) Stent Placement Check/Change 10/23/[address] [facility] IR NEPHROURETERAL (NU) STENT PLACEMENT/CHECK/CHANGE 01/18/2022 IR Nephroureteral (NU) Stent Placement Check/Change 01/18/[address] [facility] PRO [facility] EBUS GUIDED SAMPL 3/> NODE STATION/STRUX N/A 04/04/2021 BRONCH, W ENDOBRONCHIAL ULTRASOUND (EBUS) GUIDED SAMPLING, 3+ NODES (WRVU 5.21) performed by Alonzo Cevallos MD at [facility] PRO BRONCHOSCOPY, DIAGNOSTIC W LAVAGE N/A 04/04/2021 BRONCHOSCOPY, RIGID OR FLEXIBLE, WITH BRONCHIAL ALVEOLAR LAVAGE (WRVU 2.88) performed by Alonzo Cevallos MD at [facility] Social History: Social History Socioeconomic History Marital status: Single Spouse name: Not on file Number of children: Not on file Years of education: Not on file Highest education level: Not on file Occupational History Not on file Tobacco Use Smoking status: Former Types: Cigarettes Quit date: 07/04/2014 Years since quittin.0 Smokeless tobacco: Never Vaping Use Vaping Use: Never used Substance and Sexual Activity Alcohol use: Not Currently Drug use: Never Sexual activity: Not on file Other Topics Concern Not on file Social History Narrative Not on file Social Determinants of Health Financial Resource Strain: Unknown (03/27/2021) Overall Financial Resource Strain (CARDI) Difficulty of Paying Living Expenses: Patient declined Food Insecurity: Unknown (03/27/2021) Hunger Vital Sign Worried About Running Out of Food in the Last Year: Patient declined Ran Out of Food in the Last Year: Patient declined Transportation Needs: No Transportation Needs (03/27/2021) PRAPARE - Transportation Lack of Transportation (Medical): No Lack of Transportation (Non-Medical): No Physical Activity: Not on file Intimate Partner Violence: Not At Risk (08/07/2023) IPV Inpatient Questions Prevent Contact with Others: no Feels Threatened by Someone: no Feels Unsafe at Home: no Physical Signs of Abuse Present: no Recent Concern: Intimate Partner Violence - At Risk (07/10/2023) IPV Inpatient Questions Prevent Contact with Others: no Feels Threatened by Someone: no Feels Unsafe at Home: yes Physical Signs of Abuse Present: no Housing Stability: Unknown (03/27/2021) Housing Stability Vital Sign Unable to Pay for Housing in the Last Year: Patient refused Number of Places Lived in the Last Year: 2 Unstable Housing in the Last Year: No 1PPD smoker quit 2014 No alcohol Family History: No family history on file. Allergies: No Known Allergies Medications: Current Outpatient Medications Medication Instructions acetaminophen (TYLENOL) 1,000 mg, Oral, EVERY 8 HOURS PRN levothyroxine (SYNTHROID) 75 mcg, Oral, DAILY prochlorperazine (COMPAZINE) 10 mg, Oral, EVERY 6 HOURS PRN senna (Senokot) 8.6 mg Tablet Oral, DAILY traMADoL (ULTRAM) 50 mg, Oral, EVERY 6 HOURS PRN PHYSICAL EXAM: Last value Range last 24 hrs Temperature Temp: 36.5 ??C (97.7 ??F) Temp: [36.5 ??C (97.7 ??F)] Heart Rate Heart Rate: 89 Heart Rate: [69-90] Blood Pressure BP: 112/65 BP: (112-142)/(55-105) Respiratory Rate Resp: 17 Resp: [13-22] SpO2 SpO2: 96 % SpO2: [93 %-100 %] No intake/output data recorded. Physical Exam: General: No acute distress. Head: Normocephalic and atraumatic. Neck: Normal range of motion. Neck supple. Cardiovascular: regular rate, regular rhythm, normal S1 S2. No gallop, friction rub. No murmur. No JVD Pulmonary/Chest: No increased work of breathing. Crackles left lung base. Abdominal: Non distended. Bowel sounds are normal. No rigidity or guarding. No tenderness. Bilateral nephrostomy tubes in place at flanks. Right with urine leakage soaking dressing, no drainage through her tube. Left draining appropriately. No erythema or tenderness to palpation. Neurological: Alert and oriented to person, place, and time. No focal deficits. Skin: No rash noted. No erythema. Extremities: Warm well perfused. No edema. +2 radial pulses. LABS: Recent Labs 08/07/23 043 WBC 20.4* HGB 12.7 HCT 40.3 PLATELET 487* Recent Labs 08/07/23 043 NA 140 K 5.1* CL 108* CO2 20* BUN 25* CREATININE 2.23* Recent Labs 08/07/23435 CALCIUM 9.2 Recent Labs 08/07/23435 AST 13 ALT 9 ALKPHOS 99 BILITOT 0.9 Microbiology Results (Last 30 days) Procedure Component Value Units Date/Time Urine culture [[id number]] (Abnormal) (Susceptibility) Collected: 07/10/23 0010 Lab Status: Final result Specimen: Nephrostomy Urine Updated: 03/15/24 0821 Urine Culture 10,000-49,000 cfu/ml Proteus vulgaris Susceptibility Proteus vulgaris VITEK 2 METHOD Amikacin Sensitive Ampicillin + Sulbactam Sensitive Aztreonam Sensitive Cefazolin Resistant Cefepime Sensitive Ceftazidime Sensitive Ceftriaxone Sensitive Ertapenem Sensitive Gentamicin Sensitive Levofloxacin Sensitive [1] Nitrofurantoin Resistant Piperacillin/Tazobactam Sensitive Tetracycline Resistant Tobramycin Sensitive Trimethoprim/Sulfa Sensitive [1] Levofloxacin and Ciprofloxacin may not adequately treat infections in critically ill patients even when isolates test susceptible in the laboratory. Contact Infectious Disease before using in critically ill patients. Blood culture [[id number]] Collected: 07/09/232040 Lab Status: Final result Specimen: Blood Updated: 07/14/232300 Blood Culture No growth at 5 days. Blood culture [[id number]] Collected: 07/09/232030 Lab Status: Final result Specimen: Blood Updated: 07/14/232300 Blood Culture No growth at 5 days. Imaging/Diagnostics: Results for orders placed or performed during the hospital encounter of 08/07/23 CT Abdomen & Pelvis wo Contrast (Exam End: 08/07/2023 5:48 AM) Impression * Progressive organization of left chest loculated empyemas versus intrapulmonary abscesses. * Increased small left pleural effusion. * Peribronchial thickening in bilateral lower lungs may reflect atelectasis or atypical infection/inflammation. * Unchanged dilation of common bile duct up to 23 mm. * New fat stranding adjacent to pancreatic head and uncinate process may reflect focal pancreatitis or extension of right perinephric inflammation. * Persistent moderate hydroureteronephrosis and increased findings of right pyelonephritis/ureteritis despite a right percutaneous nephrostomy tube in unchanged position are concerning for urinary obstruction. Functional assessment of the nephrostomy is recommended. * Suspected stricture of the distal ureter. Consider further evaluation with a CT urogram. Thank you for letting us participate in the care of this patient. If you are a health care provider and have any questions regarding this report, please contact the number below. For patients who have questions please contact the health health care specialist that requested your imaging first. Electronically signed by: Lena Wu MD, [facility] ([phone]), at 08/07/2023 7:11 AM ASSESSMENT and PLAN: Mitesh Bullard is a 73 y.o. female metastatic urothelial cell carcinoma (2020, with obstructive (B/LNephrostomy tubes, pembro), Adenocarcinoma on left lower lobe s/p cryo de-bulking & pembro-->Adagrasib), hypothyroidism presented for right flank pain and nephrostomy tube obstruction. Mitesh's primary problem is her obstructed right perc nephrostomy tube with associated pyelonephritis which will need to be replaced. She was incidentally found to have findings on CT imaging in the setting of known adenocarcinoma thought to possible reflect empyema. Upon discussion with thoracic surgery this is felt to more likely reflect tumor necrosis and drainage at this time would only introduce the possibility of seeding her malignancy. As such, we will treat her pyelonephritis, consult IRto exchange her right perc neph tube. Will hold her adagrasib in the acute setting per discussion with hematology. Now that she is off pembrolizumab we can treat her with cephalopsporin/penicillins so will start zosyn for pylonephritis as well as anaerobic coverage for any possibility of empyema (although favored to be necrosis as above). If she is improving tomorrow and there is no concern for empyema we will plan to transition to pyelonephritis coverage alone (ceftriaxone). I think her BRITNI/Hyperkalemia was due to her obstruction and not related to recent bactrim use but nonetheless will avoid further bactrim for now. She has no epigastric pain and normal lipase- the question of pancreatitis changes on imaging is likely simply related to her pyelonephritis. #Urinary Obstruction with BRITNI and hyperkalemia #Hyperkalemia #Nephrostomy tubes #Hydroureteronephrosis - Zosyn for now, can narrow to cefttriaxone if no concern for empyema moving forward - IR consult for nephrostomy exchange - Stop bactrim, start zosyn - hold home tramadol. PRN dilaudid for now #Lung adenocarcinoma LLL- s/p pembro now on Adagrasib #LLL fluid collection- possible Empyema, favor tumor necrosis - Do not drain - zosyn for now - Thoracic surgery consulted - Hold adagrasib in acute setting - planned repeat PET later this month #Hypothyroidism - home synthroid 75mcg #Housekeeping: - DVT PPx: SQH in setting of BRITNI - Diet: No diet orders on file - Level of care: Floor - Code Satus: DNR Alin Caal MD Internal Medicine PGY3 Associated attestation - Aaliyah Disla MD - 08/08/2023 8:19 AM EDT Attending Staff Admission Documentation I certify that the patient requires: [x] inpatient care status due to nephrostomy tube obstruction with associated pyelonephritis and acute kidney injury requiring IR intervention and IV antibiotics I have examined the patient myself on 08/07/2023 and reviewed all labs and studies personally. Please see Dr. Caal's documentation for details of the patient history of presentation and data. I have discussed, reviewed and agree with the documented history with ROS, physical findings, labs/studies, assessment and plan of care. Aaliyah Disla MD * Anthony Garcia MD - 08/07/2023 11:41 AM EDT Images from the original note were not included. Interventional Radiology Focused Pre-procedure H&P: PCP: Tavia Ramirez APRN Referring Provider: None Planned procedure: Bilateral PCN exchange Procedure indication: Hydronephrosis, flank pain, suspect nephrostomy obstruction IR workflow: Interventional Radiology Service contacted by Alin Caal MD at 11:20 am regarding the procedure request below. There are no answered order specific questions. History of Present Illness: Per chart review, Mitesh Bullard is a 73 y.o. female with PMH of chronicBL nephrostomy tubes who presents to Interventional Radiology to undergo bilateral PCN exchange. Per primary team, patient presenting with no right PCN output and right flank pain, imaging with hydronephrosis c/f obstructed tube. Plan for bilateral exchange to maintain same schedule. Remainder of patient's medical and surgical history, allergies, medications, and social/family history obtained below as previously outlined in patient's medical record. IR History: BL PCN exchange 07/09/23 (10Fr BL), 04/25/23 Imaging: Same day CT A/P Assessment: 73 y.o. female with suspected right presenting to Interventional Radiology for bilateral PCN exchange. Plan Planned procedure: Bilateral PCN exchange Labs to be performed day of procedure: No labs Sedation: No Sedation Prophylactic antibiotic : None (On Zosyn) Contrast: Omnipaque Additional medications for procedure: Lidocaine Planned access site: BL flank Position: Prone Consent: Scanned Medications to discontinue (and days held): None Cytopathology presence needed: No Case Urgency:: D2- Within 24 hours (i.e. can be next day) Labs: Lab Results Component Value Date HGB 12.7 08/07/2023 HCT 40.3 08/07/2023 WBC 20.4 (H) 08/07/2023 PLATELET 487 (H) 08/07/2023 BUN 25 (H) 08/07/2023 CREATININE 2.23 (H) 08/07/2023 ALBUMIN 3.9 08/07/2023 BILITOT 0.9 08/07/2023 AST 13 08/07/2023 ALT 9 08/07/2023 ALKPHOS 99 08/07/2023 Allergies: Patient has no known allergies. Medications: Current Facility-Administered Medications on File Prior to Encounter Medication Dose Route Frequency Provider Last Rate Last Admin sodium chloride 0.9 % (flush) (BD PosiFlush Normal Saline 0.9) flush 10-20 mL 10-20 mL Intravenous Q1 Min PRN Jose Lange MD 20 mL at 05/13/23 1530 Current Outpatient Medications on File Prior to Encounter Medication Sig Dispense Refill prochlorperazine (Compazine) 10 mg tablet Take 1 tablet by mouth every 6 hours as needed for Nausea. 15 tablet 0 levothyroxine (Synthroid) 75 mcg tablet Take 1 tablet by mouth daily. 30 tablet 11 traMADoL (Ultram) 50 mg Tablet Take 1 tablet by mouth every 6 hours as needed for Pain. 30 tablet 0 acetaminophen (Tylenol) 500 mg Tablet Take 1,000 mg by mouth every 8 hours as needed for Pain. senna (Senokot) 8.6 mg Tablet Take by mouth daily. 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 Past Surgical History: Procedure Laterality Date IR MEDIPORT PLACEMENT 04/02/2021 IR Mediport Placement 04/02/[address] [facility] NEPHROGRAM/NEPHROSTOMY TUBE EXCHANGE BILATERAL 04/24/2022 IR Nephrogram/Nephrostomy Tube Exchange Bilateral 04/24/[address] [facility] IR NEPHROGRAM/NEPHROSTOMY TUBE EXCHANGE BILATERAL 07/26/2022 IR Nephrogram/Nephrostomy Tube Exchange Bilateral 07/26/[address] [facility] IR NEPHROGRAM/NEPHROSTOMY TUBE EXCHANGE BILATERAL 10/18/2022 IR Nephrogram/Nephrostomy Tube Exchange Bilateral 10/18/2022 Alexis De La Cruz MD [facility] IR NEPHROGRAM/NEPHROSTOMY TUBE EXCHANGE BILATERAL 12/11/2022 IR Nephrogram/Nephrostomy Tube Exchange Bilateral 12/11/2022 Alexis De La Cruz MD [facility] IR NEPHROGRAM/NEPHROSTOMY TUBE EXCHANGE BILATERAL 02/13/2023 IR Nephrogram/Nephrostomy Tube Exchange Bilateral 02/13/[address] [facility] IR NEPHROGRAM/NEPHROSTOMY TUBE EXCHANGE BILATERAL 04/04/2023 IR Nephrogram/Nephrostomy Tube Exchange Bilateral Alin Dillard MD [facility] IR NEPHROGRAM/NEPHROSTOMY TUBE EXCHANGE BILATERAL 04/25/2023 IR Nephrogram/Nephrostomy Tube Exchange Bilateral [facility] IR NEPHROGRAM/NEPHROSTOMY TUBE EXCHANGE BILATERAL 06/19/2023 IR Nephrogram/Nephrostomy Tube Exchange Bilateral Alexis De La Cruz MD [facility] IR NEPHROGRAM/NEPHROSTOMY TUBE EXCHANGE BILATERAL 07/09/2023 IR Nephrogram/Nephrostomy Tube Exchange Bilateral 07/09/[address] [facility] IR NEPHROSTOMY TUBE PLACEMENT PERCUTANEOUS BILATERAL 02/20/2021 IR Nephrostomy Tube Placement Percutaneous Bilateral [facility] IR NEPHROURETERAL (NU) STENT PLACEMENT/CHECK/CHANGE 07/13/2021 IR Nephroureteral (NU) Stent Placement Check/Change 07/13/2021 Alexis De La Cruz MD [facility] NEPHROURETERAL (NU) STENT PLACEMENT/CHECK/CHANGE 10/23/2021 IR Nephroureteral (NU) Stent Placement Check/Change 10/23/[address] [facility] IR NEPHROURETERAL (NU) STENT PLACEMENT/CHECK/CHANGE 01/18/2022 IR Nephroureteral (NU) Stent Placement Check/Change 01/18/[address] [facility] [place]/> NODE STATION/STRUX N/A 04/04/2021 BRONCH, W ENDOBRONCHIAL ULTRASOUND (EBUS) GUIDED SAMPLING, 3+ NODES (WRVU 5.21) performed by Alonzo Cevallos MD at [facility] PRO BRONCHOSCOPY, DIAGNOSTIC W LAVAGE N/A 04/04/2021 BRONCHOSCOPY, RIGID OR FLEXIBLE, WITH BRONCHIAL ALVEOLAR LAVAGE (WRVU 2.88) performed by Alonzo Cevallos MD at [facility] Social History and Habits: Social History Tobacco Use Smoking status: Former Types: Cigarettes Quit date: 07/04/2014 Years since quittin.0 Smokeless tobacco: Never Vaping Use Vaping Use: Never used Substance Use Topics Alcohol use: Not Currently Drug use: Never Significant Family History: No family history on file. Pertinent ROS: as per HPI Physical Exam: Pending (to be performed in IR the day of procedure) ASA: Pending (to be assessed in IR the day of procedure) Mallampati class: Pending (to be assessed in IR the day of procedure) 08/07/2023 Anthony Garcia MD [facility] Radiology, PGY-3 documented in this encounter ED Notes * Yu Corbett MD - 08/07/2023 7:50 AM EDT Emergency Department Sign-Out Note Time of transfer: 0600 Care transferred from: Ceasar Robles MD Condition at the time of transfer: Stable The patient was signed out to me by preceding ED team. Please see their notes for full details. I assumed the patient's care, reviewed the medical record, and discussed the patient's ED course with the previous treatment team. Pertinent labs and studies have been reviewed. Brief HPI Briefly, the patient 73-year-old female with recurrent bilateral percutaneous nephrostomy tubes requiring replacement due to obstructions. ED Course before sign-out Patient was founded of a elevated leukocytosis and started on Bactrim. Given fluids and pain medications. Noncon CT was ordered due to her poor kidney function at baseline. She was hemodynamically stable at the time ED Course (since sign-out to me) Temp: [36.5 ??C (97.7 ??F)] Heart Rate: [69-90] Resp: [13-22] BP: (112-142)/(55-105) SpO2: [93 %-100 %] Heart Rate from SpO2: [70 bpm] ED Course as of 08/07/23 0914 Nicolasa Aug 07, 2023 0610 NC-JAKE: Met urothelial CA, bilat perc neph (2020), frequent obstructions. Needs exchange. R Perc neph tube no longer draining WBC 21, Bactrim. Fluids. Non-Con CT pending d/t kidney function. 0658 CT Abdomen & Pelvis wo Contrast Concern for perinephric stranding. Large stool burden on the right side. 0747 CT Abdomen & Pelvis wo Contrast * Progressive organization of left chest loculated empyemas versus intrapulmonary abscesses. * Increased small left pleural effusion. * Peribronchial thickening in bilateral lower lungs may reflect atelectasis or atypical infection/inflammation. * Unchanged dilation of common bile duct up to 23 mm. * New fat stranding adjacent to pancreatic head and uncinate process may reflect focal pancreatitis or extension of right perinephric inflammation. * Persistent moderate hydroureteronephrosis and increased findings of right pyelonephritis/ureteritis despite a right percutaneous nephrostomy tube in unchanged position are concerning for urinary obstruction. Functional assessment of the nephrostomy is recommended. * Suspected stricture of the distal ureter. Consider further evaluation with a CT urogram. 0914 Lipase: 34 Assessment/Plan 73-year-old female with history of bilateral percutaneous nephrostomy tubes requiring frequent replacement due to malfunction here with concern with right flank pain and right percutaneous neph tube no longer draining. Concern for pyelonephritis and obstruction in the right kidney. Started on antibiotics. CT shows also possible complication of pancreatitis versus stranding from the nearby kidney.Lipase ordered but not resulted at this time. There is also concern that there might be a strictureof the distal ureter. Plan for admission to hospital medicine with IR consultation for replacement of nephrostomy tube. Disposition: Admitted to hospital medicine in stable condition Robby Norman MD Resident 08/07/23 0914 ED ATTENDING ATTESTATION NOTE I have discussed the details of the case with the resident and agree with the assessment and plan as described in the resident note unless noted below or in my separate note. Yu Corbett MD 08/07/23 0929 * Darren Dubose RN - 08/07/2023 6:41 AM EDT This RN attempted to obtain 2nd set of blood cultures with attempt of PIV access x2, unable to obtain access at this time. Will update oncoming RN who assumes care * Ceasar Robles MD - 08/07/2023 3:41 AM EDT ED Resident Note HPI: Mitesh Bullard is a 73 y.o. female who presents to the Emergency Department with chief complaint of my tube plugged. She has a medical history significant for metastatic urothelial carcinoma and bilateral percutaneous nephrostomy tubes, which have been in place since 2020. At 7:30 PM yesterday evening she developed right flank pain and noticed that her right nephrostomy tube was not putting out urine. She reports this happens frequently (sometimes monthly) and she is often admitted to the hospital for exchange of her percutaneous nephrostomy tubes. She was recently admitted 1 month ago for similar symptoms. Since the onset of her flank pain, it has become more intense throughout the night and she now has right lower quadrant abdominal pain. She denies fevers, chills, chest pain, shortness of breath, cough. She developed vomiting beginning at 0100. ROS as per HPI Vitals: ED Triage Vitals [08/07/23 0325] BP: 142/66 Heart Rate: 70 Resp: 17 Temp: 36.5 ??C (97.7 ??F) Temp src: Oral SpO2: 99 % O2 Device: RA O2 Flow Rate (L/min): n/a Physical Exam Constitutional: Appearance: Normal appearance. Comments: Uncomfortable appearing, reclined in bed Cardiovascular: Rate and Rhythm: Normal rate. Heart sounds: Normal heart sounds. Pulmonary: Effort: Pulmonary effort is normal. No respiratory distress. Breath sounds: Normal breath sounds. Abdominal: General: Abdomen is flat. Palpations: Abdomen is soft. Tenderness: There is right CVA tenderness. Comments: Right lower quadrant tenderness to palpation, no rebound tenderness or guarding; right percutaneous nephrostomy tube dressing soaked in urine, no surrounding erythema or swelling around bilateral PCN sites Neurological: Mental Status: She is alert. ED Course: Latest Reference Range & Units 08/07/23 04:35 08/07/23 04:36 WBC 4.0 - 9.5 x10(3)/mcL 20.4 (H) RBC 4.00 - 5.21 x10(6)/mcL 5.08 Hemoglobin 11.7 - 15.5 g/dL 12.7 Hematocrit 35.7 - 45.8 % 40.3 Platelets 145 - 357 x10(3)/mcL 487 (H) Sodium 135 - 145 mmol/L 140 Potassium 3.5 - 5.0 mmol/L 5.1 (H) Chloride 98 - 107 mmol/L 108 (H) CO2 22 - 31 mmol/L 20 (L) Anion Gap 5 - 15 mmol/L 12 BUN 8 - 18 mg/dL 25 (H) Creatinine 0.70 - 1.20 mg/dL 2.23 (H) Estimated GFR >=60 mL/min/1.73 m?? 23 (L) Calcium 8.5 - 10.5 mg/dL 9.2 Lactate WB 0.5 - 2.2 mmol/L 2.7 (H) Glucose Lvl 65 - 199 mg/dL 157 Total Protein 6.1 - 8.0 g/dL 8.2 (H) Albumin 3.2 - 5.2 g/dL 3.9 Total Bilirubin 0.2 - 1.3 mg/dL 0.9 Alk Phos 35 - 105 unit/L 99 AST 0 - 30 unit/L 13 ALT 0 - 30 unit/L 9 (H): Data is abnormally high (L): Data is abnormally low Medications sulfamethoxazole-trimethoprim (Bactrim) 351 mg in dextrose 5% 571 mL infusion (351 mg Intravenous New Bag 08/07/23 06) HYDROmorphone (Dilaudid) (0.5 mg/0.5 mL) injection syringe 0.5 mg (0.5 mg Intravenous Given 508) ondansetron (pf) (Zofran) (2 mg/mL) injection 4 mg (4 mg Intravenous Given 08/07/23 5542) lactated Ringers 1,000 mL IV bolus ( Intravenous Stopped 08/07/23 06) Assessment and Plan: 73 y.o. female with bilateral percutaneous nephrostomy tubes presenting with acute onset right flank pain with cessation of drainage of nephrostomy tube concerning for nephrostomy tube obstruction. Initial lactate resulted at 2.7 and CBC with leukocytosis of 20.4, therefore blood cultures were collected, IV fluids ordered, and empiric antibiotics with Bactrim ordered. I discussed antibiotic choice with pharmacy as patient is currently taking pembrolizumab. With borderline renal function on labsone month ago, a noncontrast CT of her abdomen and pelvis was ordered to further investigate the cause of her right flank and abdominal pain. This study is pending at the time of signout to the oncoming physician team. Despite results of the CT, anticipate admission for management of suspected sepsis--source unclear at this time. Ceasar Robles MD Resident 08/07/23 0753 Associated attestation - Cecile Edwards MD - 08/11/2023 1:55 PM EDT ED ATTENDING ATTESTATION The patient was seen in conjunction with Dr. Robles, the resident physician. I have independently performed the kaiser portions of the history and physical exam. I have reviewed all diagnostic studies personally including labs, imaging studies and EKGs. I have discussed the details of the case with the resident and agree with the assessment and plan as described in the resident note above unless noted in my separate note. ED Course as of 08/11/23 1353 Nicolasa Aug 07, 2023 0417 73 yo F w/ metastatic urothelial carcinomal with b/l percutaneous nephrostomy tubes, presenting with nephrostomy tube obstruction. Hx of similar presentations, requiring admission and exchange. Hemodynamically normal on arrival. MDM: 73 yo F w/ nephrostomy tube obstruction. Hx of similar presentations, requiring exchange. No fevers. + cva/flank tenderness, draining around tube site. No infectious symptoms, abdomen soft. Plan for CT imaging to evaluate for abscess vs tube position vs obstruction vs pyelonephritis. Given cr, will perform non-contrast CT imaging first which is similar to the imaging ordered during prior presentations. Lactate 2.7, with WBC 20k. Patient covered with abx and bcx drawn per sepsis protocol. Patient signed out to morning EM team. Anticipate admission to . documented in this encounter Miscellaneous Notes * Plan of Care - Minerva Sanders RN - 08/10/2023 2:55 AM EDT OUTCOME EVALUATION NOTE: OUTCOME SUMMARY: A&Ox4 calm and cooperative. VS as charted on RA. PRN tylenol administered for 4/10 pain with positive effect. I/O documented in flowsheet. B/L neph tube in place and drained yellow urine. Dressing CDI. Eye closed between care. PLAN MOVING FORWARD: Safe DC planning INDIVIDUALIZED FALL PREVENTION INTERVENTIONS: Patient-specific fall risk factors per assessment: [current deficits]: hospital setting, generalized weakness Assistance [level of assistance required for transfers and ambulation]: IND within room Supervision [direct monitoring required during toileting and ADLs]: IND Surveillance [continuous indirect monitoring]: purposeful rounding, room near unit station, call light within reach Patient-specific fall prevention interventions for sensory deficits provided, if applicable: [X] N/A CARE PLAN GOAL OUTCOME EVALUATION: Problem: Adult Inpatient Plan of Care Goal: Plan of Care Review Outcome: Ongoing (Interventions Implemented as Appropriate) Goal: Patient-Specific Goal (Individualized) Outcome: Ongoing (Interventions Implemented as Appropriate) Goal: Absence of Hospital-Acquired Illness or Injury Outcome: Ongoing (Interventions Implemented as Appropriate) Goal: Optimal Comfort and Wellbeing Outcome: Ongoing (Interventions Implemented as Appropriate) Goal: Readiness for Transition of Care Outcome: Ongoing (Interventions Implemented as Appropriate) Problem: Fall Injury Risk Goal: Absence of Fall and Fall-Related Injury Outcome: Ongoing (Interventions Implemented as Appropriate) Problem: Pain Acute Goal: Acceptable Pain Control and Functional Ability Outcome: Ongoing (Interventions Implemented as Appropriate) Problem: Infection Goal: Absence of Infection Signs and Symptoms Outcome: Ongoing (Interventions Implemented as Appropriate) Problem: Mobility Impairment Goal: Optimal Mobility Atkinson and Safety Outcome: Ongoing (Interventions Implemented as Appropriate) * Plan of Care - Lindsey Vasquez RN - 08/09/2023 7:01 PM EDT OUTCOME EVALUATION NOTE: OUTCOME SUMMARY: VS as charted, A&O x4- pleasant and cooperative w/ all aspects of care. Supportive daughter at bedside throughout shift. Bilateral nephrostomy tubes in place, output as charted. Assisted to a full body shower this shift. Care ongoing. PLAN MOVING FORWARD: Safe d/c planning INDIVIDUALIZED FALL PREVENTION INTERVENTIONS: Patient-specific fall risk factors per assessment: [current deficits]: Unfamiliar environment, weakness Assistance [level of assistance required for transfers and ambulation]: Independent within room Supervision [direct monitoring required during toileting and ADLs]: Able to reliably summon assistance Surveillance [continuous indirect monitoring]: Purposeful rounding, room near unit station, call shin within reach Patient-specific fall prevention interventions for sensory deficits provided, if applicable: [X] N/A CARE PLAN GOAL OUTCOME EVALUATION: Problem: Adult Inpatient Plan of Care Goal: Plan of Care Review Outcome: Ongoing (Interventions Implemented as Appropriate) Goal: Patient-Specific Goal (Individualized) Outcome: Ongoing (Interventions Implemented as Appropriate) Goal: Absence of Hospital-Acquired Illness or Injury Outcome: Ongoing (Interventions Implemented as Appropriate) Goal: Optimal Comfort and Wellbeing Outcome: Ongoing (Interventions Implemented as Appropriate) Goal: Readiness for Transition of Care Outcome: Ongoing (Interventions Implemented as Appropriate) Problem: Fall Injury Risk Goal: Absence of Fall and Fall-Related Injury Outcome: Ongoing (Interventions Implemented as Appropriate) Problem: Pain Acute Goal: Acceptable Pain Control and Functional Ability Outcome: Ongoing (Interventions Implemented as Appropriate) Problem: Infection Goal: Absence of Infection Signs and Symptoms Outcome: Ongoing (Interventions Implemented as Appropriate) Problem: Mobility Impairment Goal: Optimal Mobility Atkinson and Safety Outcome: Ongoing (Interventions Implemented as Appropriate) * Plan of Care - Trista Carlin RN - 08/09/2023 2:19 AM EDT OUTCOME EVALUATION NOTE: OUTCOME SUMMARY: Pt A&O x4. V/S as charted on RA. Bilateral nephrostomy tubes remain in place draining good yellow UOP, dressings remain C/D/I. Tylenol given x1 for pain w/ good effect. Pleasant and cooperative w/ care. All needs met at this time, no acute events. PLAN MOVING FORWARD: IV abx therapy Pain management Encourage PO intake PT/OT Safe d/c planning INDIVIDUALIZED FALL PREVENTION INTERVENTIONS: Patient-specific fall risk factors per assessment: [current deficits]: Hospital environment, IV lines/drains, generalized weakness Assistance [level of assistance required for transfers and ambulation]: SBA Supervision [direct monitoring required during toileting and ADLs]: Eyes on Surveillance [continuous indirect monitoring]: Masimo, purposeful rounding, call shin within reach,room near nurses station, bed alarm Patient-specific fall prevention interventions for sensory deficits provided, if applicable: [X] N/A CARE PLAN GOAL OUTCOME EVALUATION: Problem: Adult Inpatient Plan of Care Goal: Plan of Care Review Outcome: Ongoing (Interventions Implemented as Appropriate) Goal: Patient-Specific Goal (Individualized) Outcome: Ongoing (Interventions Implemented as Appropriate) Goal: Absence of Hospital-Acquired Illness or Injury Outcome: Ongoing (Interventions Implemented as Appropriate) Goal: Optimal Comfort and Wellbeing Outcome: Ongoing (Interventions Implemented as Appropriate) Goal: Readiness for Transition of Care Outcome: Ongoing (Interventions Implemented as Appropriate) Problem: Fall Injury Risk Goal: Absence of Fall and Fall-Related Injury Outcome: Ongoing (Interventions Implemented as Appropriate) Problem: Pain Acute Goal: Acceptable Pain Control and Functional Ability Outcome: Ongoing (Interventions Implemented as Appropriate) Problem: Infection Goal: Absence of Infection Signs and Symptoms Outcome: Ongoing (Interventions Implemented as Appropriate) Problem: Mobility Impairment Goal: Optimal Mobility Atkinson and Safety Outcome: Ongoing (Interventions Implemented as Appropriate) * Plan of Care - Tg Lugo - 08/08/2023 5:37 PM EDT OUTCOME EVALUATION NOTE: OUTCOME SUMMARY: VS as charted. Continuous NS running at 100 mL/hr. Received IV Zosyn and PO Lactobacillus. Bilateral neph tubes, R draining yellow cloudy urine with some sediment present, L draining yellow cloudy urine. Poor PO intake. PRN Tylenol given for 3/10 pain, reduced to 1/10. Pt noted discharge in underwear which is new to her, CLAIRE Montejo aware. Making needs known. PLAN MOVING FORWARD: IV fluids Antibiotics Pain management Encourage PO intake INDIVIDUALIZED FALL PREVENTION INTERVENTIONS: Patient-specific fall risk factors per assessment: [current deficits]: Hospital environment, generalized weakness, IV tubing Assistance [level of assistance required for transfers and ambulation]: Standby Supervision [direct monitoring required during toileting and ADLs]: Eyes on, hands on Surveillance [continuous indirect monitoring]: Masimo, purposeful rounding, room near unit station,call light within reach Patient-specific fall prevention interventions for sensory deficits provided, if applicable: [X] N/A CARE PLAN GOAL OUTCOME EVALUATION: Problem: Adult Inpatient Plan of Care Goal: Plan of Care Review Outcome: Ongoing (Interventions Implemented as Appropriate) Goal: Patient-Specific Goal (Individualized) Outcome: Ongoing (Interventions Implemented as Appropriate) Goal: Absence of Hospital-Acquired Illness or Injury Outcome: Ongoing (Interventions Implemented as Appropriate) Goal: Optimal Comfort and Wellbeing Outcome: Ongoing (Interventions Implemented as Appropriate) Goal: Readiness for Transition of Care Outcome: Ongoing (Interventions Implemented as Appropriate) Problem: Fall Injury Risk Goal: Absence of Fall and Fall-Related Injury Outcome: Ongoing (Interventions Implemented as Appropriate) Problem: Pain Acute Goal: Acceptable Pain Control and Functional Ability Outcome: Ongoing (Interventions Implemented as Appropriate) * Consult Note - Kang Andujar [facility] - 08/08/2023 12:42 PM EDT TelePharmacy Home Medication List Update for Medication Reconciliation 08/08/23 12:42 PM Mitesh Bullard 1950 No Known Allergies Person Interviewed: patient Quality of Interview/accuracy of medication list: good Sources used to compile medication list: [x] Epic medication list [x] SureScripts/Dispense Report [] PCP/Specialist list [] Retail pharmacy [] Patient list [] MAR [] Other Changes made to home medication list: Additions: Krazati Deletions: None Changes: None Additional Notes: Pt states her last medications were taken at home on Fri08/06/23. She has not taken her Krazati since then. Recommended changes: None The home medication list is now updated to the best of my knowledge and is ready to be reconciled by the provider. Please contact the TelePharmacy Medication Reconciliation Pharmacist at for any questions. Kang Andujar RPH * Initial Assessments - Emil Wong RN - 08/08/2023 10:16 AM EDT Office of Care Management Initial Assessment Emil Wong RN reviewed record and discussed patient with Care Team. Source of Information: Team, bedside nurse, medical record, and Patient Introduced self/reviewed role; services accepted. Admitted From: Home Reason for Hospitalization: Blocked nephrostomy tube Covid Vaccination Status: 1st, 2nd & booster Past medical History: No past medical history on file. Hospitalizations Within the Past 30 Days: no previous admission in last 30 days Current Decision-Making Capacity: Self Advance Care Planning: Do NOT Attempt CPR - Inpatient Received -Advanced Directive: Yes, on file Who is your DPOA-HC?: Child Current Coping/Education/Information Needs: coping well Current Functional Ability: Independent Functional Status Prior to Admission: Independent Prior ADLs & IADLs: Independent with all ADLs & IADLs Home Environment: Others in the home: child(isaias), adult. Current Living Arrangements: home/apartment/condo. Accessibility Concerns:1 DANILO to enter. 8 steps to bedroom and bathroom. In the last 12 months, was there a time when you were not able to pay the mortgage or rent on time?: No In the last 12 months, how many places have you lived?: 1 In the last 12 months, was there a time when you did not have a steady place to sleep or slept in ashelter (including now)?: No In the past 12 months has the electric, gas, oil, or water [employer] threatened to shut off services in your home?: No Within the past 12 months, you worried that your food would run out before you got the money to buymore.: Never true Within the past 12 months, the food you bought just didn't last and you didn't have money to get more.: Never true Resource / Environmental Concerns: Resource/Environmental Concerns: none In the past 12 months, has lack of transportation kept you from medical appointments or from getting medications?: No In the past 12 months, has lack of transportation kept you from meetings, work, or from getting things needed for daily living?: No Current DME: none Home Address confirmed as: [address] [facility] [address] Social & Family Supports: All names listed below confirmed with patient as current and correct Extended Emergency Contact Information Primary Emergency Contact: LIA BOUDREAUX Mobile Relation: Child Current Care Provided by: self, child(isaias) Provides Primary Care For: no one Caregiver if needed: child(isaias), adult Quality of Family relationships: helpful, involved, supportive Community Resources being provided currently: none Behavioral Health History: denied Substance Use/Abuse listed: Social History Tobacco Use Smoking Status Former Types: Cigarettes Quit date: 07/04/2014 Years since quittin.1 Smokeless Tobacco Never In the past year have you used an illegal drug or used a prescription medication for non-medical reasons?: No 0 No problems reported 1-2 Low level 3-5 Moderate level 6-8 Substantial level 9- 10 Severe level In the past year have you had 4 or more drinks a day containing alcohol?: No 0 to 7 points: Low risk 8 to 15 points: Medium risk 16 to 19 points: High risk 20 to 40 points: Addiction likely Health/Prescription Coverage: Primary Insurance: MEDICARE Payor: MEDICARE / Plan: MEDICARE PART A & B / Product Type: *No Product type* / Secondary Insurance: N/A ONLY if patient has Medicare A&B - Does this patient have secondary insurance?: No ; Why not?: has financial assistance Prescription Coverage: Yes Preferred Pharmacy: [facility] - [place], [place] - [address] [facility] [address] [facility] [address] [id number] - [place], [place] - [address] [facility] [address] [facility] [address] [facility] - [place], [place] - [address] [facility] [address] [facility] [address] [facility] [place], [place] - [address] [facility] [address] [facility] [address] [facility] [id number] - [place], [place] - [address] [facility] [address] [facility] [id number] - [place], [place] - [address] [facility] [address] [facility] [address] Status: Patient is a : No Primary Care Provider confirmed: Tavia Ramirez, CARDIAC/VASCULAR SONOGRAPHER [phone] Patient/Caregiver Goals of Treatment: home when med ready Potential Needs for Transition of Care: none Transportation: no concerns Transportation Anticipated: family or friend will provide Concerns to be Addressed: denies needs/concerns at this time Assessment: Patient is admitted to medicine service for BRITNI Plan: At baseline, patient lives with daughter in a house with 1 [address]AN[address], 8 steps to bedroom and bathroom. Patient states she's independent with ambulation and ADLs/IADLs, doesn't use any DME at home. She states she and her daughter are comfortable managing her nephrostomy tubes (placed since 2020). Denied d/c concerns/needs at this time. Plan will be home no services when med ready likely next week. A member of the Care Management team will continue to monitor progress, follow for continuity of care and assist with transition of care planning. Emil Wong FIGHT MANAGER agency operator [phone] * Plan of Care - Thony Woodruff RN - 08/08/2023 6:58 AM EDT OUTCOME EVALUATION NOTE: OUTCOME SUMMARY: Pt arrived at the unit at 1953, oriented to room and call light. A/O x4, v/s as charted. RA no SOB.Hypotensive MAP<65 mmHg, Jessica CAMARGO notified , life safety has been called ,1500 ml iv bolus given recheck BP 105/54, Mini CAMARGO aware. Lab called around 2300 Hb dropped from 12.7 to 9.9, Jessica CAMARGO aware Bilateral nephrostomy tube in place, draining yellow cloudy urine on R and light pink on the L side. Pt endorsed headache, prn tylenol given with good effect. Care on going. PLAN MOVING FORWARD: Monitor BP Nephrostomy tube D/c planning INDIVIDUALIZED FALL PREVENTION INTERVENTIONS: Patient-specific fall risk factors per assessment: [current deficits]: generalized weakness, hospital environment, hypotensive, iv tubing, bilateral nephrostomy tube Assistance [level of assistance required for transfers and ambulation]: 2 assists Supervision [direct monitoring required during toileting and ADLs]: 2 assists Surveillance [continuous indirect monitoring]: masimo, call light within reach, room near station, purposeful rounding Patient-specific fall prevention interventions for sensory deficits provided, if applicable: [X] N/A CARE PLAN GOAL OUTCOME EVALUATION: Problem: Adult Inpatient Plan of Care Goal: Plan of Care Review 08/07/20232352 by Thony Woodruff RN Outcome: Ongoing (Interventions Implemented as Appropriate) Problem: Adult Inpatient Plan of Care Goal: Patient-Specific Goal (Individualized) 08/07/20232352 by Thony Woodruff RN Outcome: Ongoing (Interventions Implemented as Appropriate) Problem: Adult Inpatient Plan of Care Goal: Absence of Hospital-Acquired Illness or Injury 08/07/20232352 by Thony Woodruff RN Outcome: Ongoing (Interventions Implemented as Appropriate) 08/07/20232352 by Thony Woodruff RN Outcome: Ongoing (Interventions Implemented as Appropriate) 08/07/20232351 by Thony Woodruff RN Outcome: Ongoing (Interventions Implemented as Appropriate) 08/07/20232350 by Thony Woodruff RN Outcome: Ongoing (Interventions Implemented as Appropriate) Problem: Adult Inpatient Plan of Care Goal: Optimal Comfort and Wellbeing 08/07/20232352 by Thony Woodruff RN Outcome: Ongoing (Interventions Implemented as Appropriate) 08/07/20232352 by Thony Woodruff RN Outcome: Ongoing (Interventions Implemented as Appropriate) 08/07/2023 235 by Thony Woodruff RN Outcome: Ongoing (Interventions Implemented as Appropriate) 08/07/20232350 by Thony Woodruff RN Outcome: Ongoing (Interventions Implemented as Appropriate) * Consult Note - Della Alexis MD - 08/07/2023 11:01 AM EDT [facility] Department of Thoracic Surgery Inpatient Consultation Note [place], [place] [address] FAX: Patient Name: Mitesh Bullard Patient : 1950 Patient Patient Location: ED21/ED-21 This consultation request was made by: CECILE EDWARDS ELISHA P PARVEZ, ARSHI Consulting thoracic surgery attending: Dr Axel Saenz HPI: Mitesh Bullard is a 73 y.o. 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 Cevallos 04/02/2021) and FDG avid pleural effusion. Presents today with right flank pain and obstructed right nephrostomy tube, has been admitted multiple times for the same. Thoracic Surgery was consulted for persistent air-fluid level in L pleural fluid collection. Ms. Bullard reports mildly increasing SOB on exertion over time. She has thin secretions occasionallythat she coughs up easily. She denies acute increase in shortness of breath, chest pain, fever, chills. She has been receiving systemic chemotherapy with adagrasib (previously pembrolizumab, managed by Dr Mckay). She was recently seen in the ED on 07/09/23 for blocked right nephrostomy tube and a CT performed at the time showed interval development of air-fluid level in known left pleural collection, which was not drained at the time. She was discharged on oral antibiotics and Thoracic Surgery was not consulted at the time. 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 Past Surgical History: Past Surgical History: Procedure Laterality Date IR MEDIPORT PLACEMENT 04/02/2021 IR Mediport Placement 04/02/[address] [facility] IR NEPHROGRAM/NEPHROSTOMY TUBE EXCHANGE BILATERAL 04/24/2022 IR Nephrogram/Nephrostomy Tube Exchange Bilateral 04/24/[address] [facility] IR NEPHROGRAM/NEPHROSTOMY TUBE EXCHANGE BILATERAL 07/26/2022 IR Nephrogram/Nephrostomy Tube Exchange Bilateral 07/26/[address] [facility] IR NEPHROGRAM/NEPHROSTOMY TUBE EXCHANGE BILATERAL 10/18/2022 IR Nephrogram/Nephrostomy Tube Exchange Bilateral 10/18/2022 Alexis De La Cruz MD [facility] IR NEPHROGRAM/NEPHROSTOMY TUBE EXCHANGE BILATERAL 12/11/2022 IR Nephrogram/Nephrostomy Tube Exchange Bilateral 12/11/2022 Alexis De La Cruz MD [facility] IR NEPHROGRAM/NEPHROSTOMY TUBE EXCHANGE BILATERAL 02/13/2023 IR Nephrogram/Nephrostomy Tube Exchange Bilateral 02/13/[address] [facility] IR NEPHROGRAM/NEPHROSTOMY TUBE EXCHANGE BILATERAL 04/04/2023 IR Nephrogram/Nephrostomy Tube Exchange Bilateral Alin Dillard MD [facility] IR NEPHROGRAM/NEPHROSTOMY TUBE EXCHANGE BILATERAL 04/25/2023 IR Nephrogram/Nephrostomy Tube Exchange Bilateral [facility] IR NEPHROGRAM/NEPHROSTOMY TUBE EXCHANGE BILATERAL 06/19/2023 IR Nephrogram/Nephrostomy Tube Exchange Bilateral Alexis De La Cruz MD [facility] IR NEPHROGRAM/NEPHROSTOMY TUBE EXCHANGE BILATERAL 07/09/2023 IR Nephrogram/Nephrostomy Tube Exchange Bilateral 07/09/[address] [facility] IR NEPHROSTOMY TUBE PLACEMENT PERCUTANEOUS BILATERAL 02/20/2021 IR Nephrostomy Tube Placement Percutaneous Bilateral [facility] IR NEPHROURETERAL (NU) STENT PLACEMENT/CHECK/CHANGE 07/13/2021 IR Nephroureteral (NU) Stent Placement Check/Change 07/13/2021 Alexis De La Cruz MD [facility] IR NEPHROURETERAL (NU) STENT PLACEMENT/CHECK/CHANGE 10/23/2021 IR Nephroureteral (NU) Stent Placement Check/Change 10/23/[address] [facility] IR NEPHROURETERAL (NU) STENT PLACEMENT/CHECK/CHANGE 01/18/2022 IR Nephroureteral (NU) Stent Placement Check/Change 01/18/[address] [facility] PRO [facility] EBUS GUIDED SAMPL 3/> NODE STATION/STRUX N/A 04/04/2021 BRONCH, W ENDOBRONCHIAL ULTRASOUND (EBUS) GUIDED SAMPLING, 3+ NODES (WRVU 5.21) performed by Alonzo Cevallos MD at [facility] OR PRO BRONCHOSCOPY, DIAGNOSTIC W LAVAGE N/A 04/04/2021 BRONCHOSCOPY, RIGID OR FLEXIBLE, WITH BRONCHIAL ALVEOLAR LAVAGE (WRVU 2.88) performed by Alonzo Cevallos MD at [facility] OR Medications: Outpatient Medications Marked as Taking for the 08/07/23 encounter (Hospital Encounter) Medication Sig Dispense Refill prochlorperazine (Compazine) 10 mg tablet Take 1 tablet by mouth every 6 hours as needed for Nausea. 15 tablet 0 levothyroxine (Synthroid) 75 mcg tablet Take 1 tablet by mouth daily. 30 tablet 11 traMADoL (Ultram) 50 mg Tablet Take 1 tablet by mouth every 6 hours as needed for Pain. 30 tablet 0 Allergies: No Known Allergies Family History: No family history on file. Social History: Social History Socioeconomic History Marital status: Single Spouse name: Not on file Number of children: Not on file Years of education: Not on file Highest education level: Not on file Occupational History Not on file Tobacco Use Smoking status: Former Types: Cigarettes Quit date: 07/04/2014 Years since quittin.0 Smokeless tobacco: Never Vaping Use Vaping Use: Never used Substance and Sexual Activity Alcohol use: Not Currently Drug use: Never Sexual activity: Not on file Other Topics Concern Not on file Social History Narrative Not on file Social Determinants of Health Financial Resource Strain: Unknown (03/27/2021) Overall Financial Resource Strain (CARDIA) Difficulty of Paying Living Expenses: Patient declined Food Insecurity: Unknown (03/27/2021) Hunger Vital Sign Worried About Running Out of Food in the Last Year: Patient declined Ran Out of Food in the Last Year: Patient declined Transportation Needs: No Transportation Needs (03/27/2021) PRAPARE - Transportation Lack of Transportation (Medical): No Lack of Transportation (Non-Medical): No Physical Activity: Not on file Intimate Partner Violence: Not At Risk (08/07/2023) IPV Inpatient Questions Prevent Contact with Others: no Feels Threatened by Someone: no Feels Unsafe at Home: no Physical Signs of Abuse Present: no Recent Concern: Intimate Partner Violence - At Risk (07/10/2023) IPV Inpatient Questions Prevent Contact with Others: no Feels Threatened by Someone: no Feels Unsafe at Home: yes Physical Signs of Abuse Present: no Housing Stability: Unknown (03/27/2021) Housing Stability Vital Sign Unable to Pay for Housing in the Last Year: Patient refused Number of Places Lived in the Last Year: 2 Unstable Housing in the Last Year: No Review of Systems: A 12 point ROS was performed and was negative except as documented in HPI. Vitals: Temp: [36.5 ??C (97.7 ??F)] Heart Rate: [69-90] Resp: [13-22] BP: (99-142)/(55-105) SpO2: [93 %-100 %] Heart Rate from SpO2: [70 bpm-90 bpm] Wt & BMI By Encounter Date Flowsheet Row ED from 08/07/2023 in Emergency Department [facility] Office Visit from 07/21/2023 in Hematology/Oncology at [facility] Weight 70.3 kg (155 lb) 1 08/07/2023 0325 71 kg (156 lb 9.6 oz) 1 07/21/2023 1444 BMI 26.6 1 08/07/2023 032 26.47 1 07/21/2023 1444 Physical Exam: Gen: NAD, pleasant, resting comfortably in bed HEENT: normocephalic, atraumatic, EOMI, sclerae anicteric Card: RRR, no M/R/G appreciated Pulm: Lungs with mildly course breath sounds, diminished air flow L lung base, appreciated, non-labored breathing on room air Abd: soft, NT, ND : Bilateral percutaneous nephrostomy tubes in place Ext: warm, dry, no edema Neuro: A&Ox3, CN II-XII grossly intact, nonfocal, conversant I/O: No intake/output data recorded. Labs: Recent Results (from the past 72 hour(s)) EKG 12 Lead Result Value Ref Range Ventricular rate 72 BPM Atrial Rate 72 BPM P-R Interval 150 ms QRS Duration 78 ms Q-T Interval 426 ms QTC Calculated (Bezet) 466 ms Calculated P [place] 79 degrees Calculated R [place] 71 degrees Calculated T [place] 48 degrees INTERPRETATION Normal sinus rhythm Normal ECG No previous ECGs available Hemogram Result Value Ref Range WBC 20.4 (H) 4.0 - 9.5 x10(3)/mcL RBC 5.08 4.00 - 5.21 x10(6)/mcL Hemoglobin 12.7 11.7 - 15.5 g/dL Hematocrit 40.3 35.7 - 45.8 % MCV 79.3 (L) 82.6 - 94.4 fL MCH 25.0 (L) 27.1 - 32.0 pg MCHC 31.5 (L) 31.7 - 35.0 g/dL Platelets 487 (H) 145 - 357 x10(3)/mcL RDWSD 46.6 (H) 37.0 - 46.0 fL RDWCV 16.1 (H) 11.5 - 14.1 % MPV 9.1 7.6 - 12.9 fL nRBC % Auto 0.0 % nRBC Abs Auto 0.000 0.000 - 0.000 x10(3)/mcL Differential, Automated Result Value Ref Range Neutrophils % 89.2 % Neutr Abs (ANC) 18.21 (H) 1.70 - 6.10 x10(3)/mcL Lymphocytes % 3.0 % Lymphocytes Abs 0.6 (L) 0.9 - 3.2 x10(3)/mcL Monocytes % 7.1 % Monocyte Abs 1.4 (H) 0.3 - 0.9 x10(3)/mcL Eosinophils % 0.0 % Eosinophils Abs 0.0 0.0 - 0.4 x10(3)/mcL Basophils % 0.2 % Basophils Abs 0.0 0.0 - 0.1 x10(3)/mcL Immature Gran % 0.50 % Dayana Gran Abs 0.11 (H) 0.00 - 0.04 x10(3)/mcL Blue Tube HOLD Result Value Ref Range Blue Hold Sample in lab. Gold Tube HOLD Result Value Ref Range Gold Hold Sample in lab. Lipase Result Value Ref Range Lipase 34 0 - 60 unit/L Comprehensive metabolic panel (non-fasting) Result Value Ref Range Glucose Lvl 157 65 - 199 mg/dL BUN 25 (H) 8 - 18 mg/dL Creatinine 2.23 (H) 0.70 - 1.20 mg/dL Sodium 140 135 - 145 mmol/L Potassium 5.1 (H) 3.5 - 5.0 mmol/L Chloride 108 (H) 98 - 107 mmol/L CO2 20 (L) 22 - 31 mmol/L Anion Gap 12 5 - 15 mmol/L Calcium 9.2 8.5 - 10.5 mg/dL Total Protein 8.2 (H) 6.1 - 8.0 g/dL Albumin 3.9 3.2 - 5.2 g/dL AST 13 0 - 30 unit/L ALT 9 0 - 30 unit/L Alk Phos 99 35 - 105 unit/L Total Bilirubin 0.9 0.2 - 1.3 mg/dL Estimated GFR 23 (L) >=60 mL/min/1.73 m?? Lactate, whole blood, send to lab ([facility]) Result Value Ref Range Lactate WB 2.7 (H) 0.5 - 2.2 mmol/L Diagnostics: CT abdomen pelvis wo contrast 4/11/24 * Progressive organization of left chest loculated empyemas versus intrapulmonary abscesses. * Increased small left pleural effusion. * Peribronchial thickening in bilateral lower lungs may reflect atelectasis or atypical infection/inflammation. * Unchanged dilation of common bile duct up to 23 mm. * New fat stranding adjacent to pancreatic head and uncinate process may reflect focal pancreatitis or extension of right perinephric inflammation. * Persistent moderate hydroureteronephrosis and increased findings of right pyelonephritis/ureteritis despite a right percutaneous nephrostomy tube in unchanged position are concerning for urinary obstruction. Functional assessment of the nephrostomy is recommended. * Suspected stricture of the distal ureter. Consider further evaluation with a CT urogram. Micro: 08/06 blood culture: in process Assessment: Mitesh Bullard is a 73 y.o. 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 Cevallos 04/02/2021) and FDG avid pleural effusion. Air fluid level in pleural fluid collection likely represents necrotic evolution of existing tumor.Recommend treating other sources of infection and monitor response, recommend against draining possibly sterile pleural fluid collection at this time due to high likelihood of seeding the pleural space. Recommendations: 1. Treat other sources of infection, monitor for improvement 2. Refrain from aspiration of left pleural fluid collection 3. If patient has undergone pulmonary function testing previously, attempt to obtain records. 4. Involve Medical Hematology/Oncology and Interventional Pulmonology for additional recommendations Thoracic Surgery will continue to follow. All plans formulated in discussion with and directed by attending thoracic surgeon Dr. Saenz. Della Alexis MD 08/07/2023 Thoracic Surgery Service Pager [phone] Associated attestation - Axel Saenz MD - 08/08/2023 12:42 PM EDT I reviewed the case with the residents and subsequently examined the patient. In brief, this 73-year-old woman has metastatic bladder cancer as well as a left lower lobe lung cancer status post systemic therapy. She presents for flank pain and leukocytosis, felt to be related to her percutaneous nephrostomy tubes but the possibility was raised that her infectious symptoms could be arising from a complex collection in the lower lobe of the left lung. I reviewed the imaging and this appears to berelatively stable and is likely sterile necrosis from her treated lung cancer. I recommended against any percutaneous drainage of the left pleural space unless she fails to improve with management ofher infected nephrostomy tubes. AXEL SAENZ MD documented in this encounter Plan of Treatment Upcoming Encounters Date Type Department Care Team (Late st Contact Info) Description 12/08/2023 3:30 PM EDT Office Visit Hematology/Oncology at [address] [phone] Chase Mckay MD [facility] [address] HEMATOLOGY [place] [address] documented as of this encounter Procedures Procedure Name Priority Date/Time Associated Diagnosis Comments HEMOGRAM Routine 08/10/2023 4:49 AM EDT DIFFERENTIAL, AUTOMATED Routine 08/10/2023 4:49 AM EDT HC CBC,PLT & AUTO DIFF Routine 4:49 AM EDT BASIC METABOLIC PANEL (NON-FASTING) Routine 08/10/2023 4:49 AM EDT HEMOGRAM Routine 08/09/2023 6:56 AM EDT DIFFERENTIAL, AUTOMATED Routine 08/09/2023 6:56 AM EDT HC CBC,PLT & AUTO DIFF Routine 4 6:56 AM EDT BASIC METABOLIC PANEL (NON-FASTING) Routine 08/09/2023 6:56 AM EDT HEMOGRAM Routine 08/08/2023 6:58 AM EDT DIFFERENTIAL, AUTOMATED Routine 08/08/2023 6:58 AM EDT HC CBC,PLT & AUTO DIFF Routine 4 6:58 AM EDT BASIC METABOLIC PANEL (NON-FASTING) Routine 08/08/2023 6:58 AM EDT SCAN, PERIPHERAL BLOOD STAT 10:55 PM EDT HEMOGRAM STAT 08/07/2023 10:55 PM EDT DIFFERENTIAL, AUTOMATED STAT 08/07/2023 10:55 PM EDT HC L-LACTATE STAT 08/07/2023 10:55 PM EDT HC CBC,PLT & AUTO DIFF STAT 10:55 PM EDT COMPREHENSIVE METABOLIC PANEL (NON-FASTING) STAT 08/07/2023 10:55 PM EDT HC BLOOD CULTURE- STAT 08/07/2023 8:3 2 PM EDT URINALYSIS MICROSCOPIC EXAM STAT 08/07/2023 6:40 PM EDT URINE CULTURE STAT 08/07/2023 6:40 PM EDT URINALYSIS WITH REFLEX CULTURE STAT 08/07/2023 5:05 PM EDT IR NEPHROGRAM/NEPHROSTOMY TUBE EXCHANGE BILATERAL STAT 08/07/2023 3:53 PM EDT HC BLOOD CULTURE- STAT 08/07/2023 6:[address] ABDOMEN AND PELVIS WO CONTRAST STAT 08/07/2023 5:48 AM EDT HC L-LACTATE STAT 08/07/2023 4:36 AM EDT HC CBC,PLT & AUTO DIFF STAT 4:36 AM EDT COMPREHENSIVE METABOLIC PANEL (NON-FASTING) STAT 08/07/2023 4:36 AM EDT HEMOGRAM STAT 08/07/2023 4:35 AM EDT DIFFERENTIAL, AUTOMATED STAT 08/07/2023 4:35 AM EDT GOLD TUBE HOLD STAT 08/07/2023 4:35 AM EDT BLUE TUBE HOLD STAT 08/07/2023 4:35 AM EDT LIPASE STAT 08/07/2023 4:35 AM EDT EKG 12-LEAD STAT 08/07/2023 3:55 AM EDT documented in this encounter Results * Differential, Automated (08/10/2023 4:49 AM EDT) Neutrophils % 61.0 % [facility] Neutr Abs (ANC) 4.19 1.70 - 6.10 x10(3)/[facility] Lymphocytes % 24.4 % [facility] Lymphocytes Abs 1.7 0.9 - 3.2 x10(3)/[facility] Monocytes % 9.0 % [facility] Monocyte Abs 0.6 0.3 - 0.9 x10(3)/[facility] Eosinophils % 4.5 % [facility] Eosinophils Abs 0.3 0.0 - 0.4 x10(3)/[facility] Basophils % 0.7 % [facility] Basophils Abs 0.0 0.0 - 0.1 x10(3)/[facility] Immature Gran % 0.40 % [facility] Comment: Immature granulocytes(IG's)percentage and absolute count will include metamyelocytes, myelocytes, and promyelocytes. Blood smears from CBCs yielding IG's will be scanned manually for concordance. If this scan disagrees with the automated IG or if promyelocytes are noted, a manual differential will be performed. [place]ana Gran Abs 0.03 0.00 - 0.04 x10(3)/[facility] Blood 08/10/2023 4:49 AM EDT 08/10/2023 5:12 AM EDT Narrative Resulting Agency Comment Spec In Lab Kevin Quezada APRN HEMATOLOGY ORDERA BLES [facility] [place] [address] * (ABNORMAL) Hemogram (08/10/2023 4:49 AM EDT) WBC 6.9 4.0 - 9.5 x10(3)/[facility] RBC 4.34 4.00 - 5.21 x10(6)/[facility] Hemoglobin 10.7(L) 11.7 - 15.5 g/dL [facility] Hematocrit 34.9(L) 35.7 - 45.8 % [facility] MCV 80.4(L) 82.6 - 94.4 [facility] MCH 24.7(L) 27.1 - 32.0 pg [facility] MCHC 30.7(L) 31.7 - 35.0 g/dL [facility] Platelets 427(H) 145 - 357 x10(3)/[facility] RDWSD 48.6(H) 37.0 - 46.0 [facility] RDWCV 16.8(H) 11.5 - 14.1 % [facility] MPV 9.6 7.6 - 12.9 [facility] nRBC % Auto 0.0 % [facility] nRBC Abs Auto 0.000 0.000 - 0.000 x10(3)/[facility] Blood 08/10/2023 4:49 AM EDT 08/10/2023 5:12 AM EDT Narrative Resulting Agency Comment Spec In Lab Kevin Quezada APRN HEMATOLOGY ORDERA GAGES [facility] [place] [address] * (ABNORMAL) Basic Metabolic Panel (non-fasting) (08/10/2023 4:49 AM EDT) Glucose Lvl 94 65 - 199 mg/dL [facility] Comment:Diabetes: >=200 mg/d L plus symptoms BUN 17 8 - 18 mg/dL [facility] Creatinine 1.76(H) 0.70 - 1.20 mg/dL [facility] Sodium 140 135 - 145 mmol/L [facility] Potassium 4.4 3.5 - 5.0 mmol/L [facility] Comment: Please note: ??Patients with WBC >100,000 may have falsely elevated Potassium levels. ??For accurate Potassium quantification in these patients send serum separator tube (gold top) for subsequent determinations. ??Contact the Clinical Chemistry Laboratory if there are any questions. Chloride 112(H) 98 - 107 mmol/L [facility] CO2 20(L) 22 - 31 mmol/L [facility] Anion Gap 8 5 - 15 mmol/L [facility] Calcium 8.7 8.5 - 10.5 mg/dL [facility] Estimated GFR 30(L) >=60 mL/min/1. 73 m?? [facility] Comment: This patient's estimated GFR was [...] and symptoms in addition to eGFR. Blood 08/10/2023 4:49 AM EDT 08/10/2023 5:12 AM EDT Narrative Resulting Agency Comment Spec In Lab Kevin Booker Damien FRANCOIS [place] [address] * Differential, Automated (08/09/2023 6:56 AM EDT) Neutrophils % 67.3 % [facility] Neutr Abs (ANC) 5.21 1.70 - 6.10 x10(3)/[facility] Lymphocytes % 16.0 % [facility] Lymphocytes Abs 1.2 0.9 - 3.2 x10(3)/[facility] Monocytes % 11.1 % [facility] Monocyte Abs 0.9 0.3 - 0.9 x10(3)/[facility] Eosinophils % 4.5 % [facility] Eosinophils Abs 0.4 0.0 - 0.4 x10(3)/[facility] Basophils % 0.6 % [facility] Basophils Abs 0.0 0.0 - 0.1 x10(3)/[facility] Immature Gran % 0.50 % [facility] Comment: Immature granulocytes(IG's)percentage and absolute count will include metamyelocytes, myelocytes, and promyelocytes. Blood smears from CBCs yielding IG's will be scanned manually for concordance. If this scan disagrees with the automated IG or if promyelocytes are noted, a manual differential will be performed. Dayana Gran Abs 0.04 0.00 - 0.04 x10(3)/[facility] Blood 08/09/2023 6:56 AM EDT 08/09/2023 7:06 AM EDT Narrative Resulting Agency Comment Spec In Lab Alin Caal MD HEMATOLOGY ORDERABLE S Performing Organization Address City/[facility]/ZIP Co de Phone Number [facility] [place] [address] * (ABNORMAL) Hemogram (08/09/2023 6:56 AM EDT) [facility] WBC 7.8 4.0 - 9.5 x10(3)/[facility] RBC 4.14 4.00 - 5.21 x10(6)/[facility] Hemoglobin 10.4(L) 11.7 - 15.5 g/dL [facility] Hematocrit 32.9(L) 35.7 - 45.8 % [facility] MCV 79.5(L) 82.6 - 94.4 fL [facility] MCH 25.1(L) 27.1 - 32.0 pg [facility] MCHC 31.6(L) 31.7 - 35.0 g/dL [facility] Platelets 416(H) 145 - 357 x10(3)/[facility] RDWSD 47.8(H) 37.0 - 46.0 [facility] RDWCV 16.6(H) 11.5 - 14.1 % [facility] MPV 9.4 7.6 - 12.9 [facility] nRBC % Auto 0.0 % [facility] nRBC Abs Auto 0.000 0.000 - 0.000 x10(3)/[facility] Blood 08/09/2023 6:56 AM EDT 08/09/2023 7:06 AM EDT Narrative Resulting Agency Comment Spec In Lab Alin Caal MD HEMATOLOGY ORDERABLE S [facility] [place] [address] * (ABNORMAL) Basic Metabolic Panel (non-fasting) (08/09/2023 6:56 AM EDT) [facility] Glucose Lvl 102 65 - 199 mg/dL [facility] Comment:Diabetes: >=200 mg/d L plus symptoms BUN 18 8 - 18 mg/dL [facility] Creatinine 1.90(H) 0.70 - 1.20 mg/dL [facility] Sodium 137 135 - 145 mmol/L [facility] Potassium 4.1 3.5 - 5.0 mmol/L [facility] Comment: Please note: ??Patients with WBC >100,000 may have falsely elevated Potassium levels. ??For accurate Potassium quantification in these patients send serum separator tube (gold top) for subsequent determinations. ??Contact the Clinical Chemistry Laboratory if there are any questions. Chloride 110(H) 98 - 107 mmol/L [facility] CO2 20(L) 22 - 31 mmol/L [facility] Anion Gap 7 5 - 15 mmol/L [facility] Calcium 8.5 8.5 - 10.5 mg/dL [facility] Estimated GFR 28(L) >=60 mL/min/1. 73 m?? [facility] Comment: This patient's estimated GFR was [...] and symptoms in addition to eGFR. Blood 08/09/2023 6:56 AM EDT 08/09/2023 7:06 AM EDT Narrative Resulting Agency Comment Spec In Lab Aaliyah Disla MD CHEMISTRY ORDERABLES [facility] [place] [address] * (ABNORMAL) Differential, Automated (08/08/2023 6:58 AM EDT) Neutrophils % 72.5 % [facility] Neutr Abs (ANC) 7.86(H) 1.70 - 6.10 x10(3)/[facility] Lymphocytes % 11.5 % [facility] Lymphocytes Abs 1.2 0.9 - 3.2 x10(3)/[facility] Monocytes % 12.5 % [facility] Monocyte Abs 1.4(H) 0.3 - 0.9 x10(3)/[facility] Eosinophils % 2.7 % [facility] Eosinophils Abs 0.3 0.0 - 0.4 x10(3)/[facility] Basophils % 0.4 % [facility] Basophils Abs 0.0 0.0 - 0.1 x10(3)/[facility] Immature Gran % 0.40 % [facility] Comment: Immature granulocytes(IG's)percentage and absolute count will include metamyelocytes, myelocytes, and promyelocytes. Blood smears from CBCs yielding IG's will be scanned manually for concordance. If this scan disagrees with the automated IG or if promyelocytes are noted, a manual differential will be performed. Dayana Gran Abs 0.04 0.00 - 0.04 x10(3)/[facility] Blood 08/08/2023 6:58 AM EDT 08/08/2023 7:14 AM EDT Narrative Resulting Agency Comment Spec In Lab Alin Caal MD HEMATOLOGY ORDERABLE S [facility] [place] [address] * (ABNORMAL) Hemogram (08/08/2023 6:58 AM EDT) WBC 10.8(H) 4.0 - 9.5 x10(3)/[facility] RBC 4.09 4.00 - 5.21 x10(6)/[facility] Hemoglobin 10.2(L) 11.7 - 15.5 g/dL [facility] Hematocrit 32.4(L) 35.7 - 45.8 % [facility] MCV 79.2(L) 82.6 - 94.4 fL [facility] MCH 24.9(L) 27.1 - 32.0 pg [facility] MCHC 31.5(L) 31.7 - 35.0 g/dL [facility] Platelets 383(H) 145 - 357 x10(3)/[facility] RDWSD 47.4(H) 37.0 - 46.0 [facility] RDWCV 16.5(H) 11.5 - 14.1 % [facility] MPV 9.8 7.6 - 12.9 [facility] nRBC % Auto 0.0 % [facility] nRBC Abs Auto 0.000 0.000 - 0.000 x10(3)/[facility] Blood 08/08/2023 6:58 AM EDT 08/08/2023 7:14 AM EDT Narrative Resulting Agency Comment Spec In Lab Alin Caal MD HEMATOLOGY ORDERABLE S [facility] [place] [address] * (ABNORMAL) Basic Metabolic Panel (non-fasting) (08/08/2023 6:58 AM EDT) Glucose Lvl 99 65 - 199 mg/dL [facility] Comment:Diabetes: >=200 mg/d L plus symptoms BUN 24(H) 8 - 18 mg/dL [facility] Creatinine 2.14(H) 0.70 - 1.20 mg/dL [facility] Sodium 135 135 - 145 mmol/L [facility] Potassium 4.3 3.5 - 5.0 mmol/L [facility] Comment: Please note: ??Patients with WBC >100,000 may have falsely elevated Potassium levels. ??For accurate Potassium quantification in these patients send serum separator tube (gold top) for subsequent determinations. ??Contact the Clinical Chemistry Laboratory if there are any questions. Chloride 107 98 - 107 mmol/L [facility] CO2 21(L) 22 - 31 mmol/L [facility] Anion Gap 7 5 - 15 mmol/L [facility] Calcium 8.2(L) 8.5 - 10.5 mg/dL [facility] Estimated GFR 24(L) >=60 mL/min/1. 73 m?? [facility] Comment: This patient's estimated GFR was [...] and symptoms in addition to eGFR. Blood 08/08/2023 6:58 AM EDT 08/08/2023 7:14 AM EDT Narrative Resulting Agency Comment Spec In Lab Aaliyah Disla MD CHEMISTRY ORDERABLES [facility] [place] [address] * Scan, Peripheral Blood (08/07/2023 10:55 PM EDT) Plat Estimate Increased [facility] RBC Morphology Abnormal [facility] Hypochromia Slight [facility] Ovalocytes 1-5 /HPF [facility] Centre Cells 1-5 /HPF [facility] Blood 08/07/2023 10:5 5 PM EDT 08/07/2023 11:01 PM EDT Narrative Resulting Agency Comment Spec In Lab Jessica Early MD HEMATOLOGY ORDERABLE S [facility] [place] [address] * (ABNORMAL) Differential, Automated (08/07/2023 10:55 PM EDT) Neutrophils % 75.6 % [facility] Neutr Abs (ANC) 9.80(H) 1.70 - 6.10 x10(3)/[facility] Lymphocytes % 10.1 % [facility] Lymphocytes Abs 1.3 0.9 - 3.2 x10(3)/[facility] Monocytes % 12.0 % [facility] Monocyte Abs 1.6(H) 0.3 - 0.9 x10(3)/[facility] Eosinophils % 1.4 % [facility] Eosinophils Abs 0.2 0.0 - 0.4 x10(3)/[facility] Basophils % 0.5 % [facility] Basophils Abs 0.1 0.0 - 0.1 x10(3)/[facility] Immature Gran % 0.40 % [facility] Comment: Immature granulocytes(IG's)percentage and absolute count will include metamyelocytes, myelocytes, and promyelocytes. Blood smears from CBCs yielding IG's will be scanned manually for concordance. If this scan disagrees with the automated IG or if promyelocytes are noted, a manual differential will be performed. Dayana Gran Abs 0.05(H) 0.00 - 0.04 x10(3)/[facility] Blood 08/07/2023 10:5 5 PM EDT 08/07/2023 11:01 PM EDT Narrative Resulting Agency Comment Spec In Lab Jessica Early MD HEMATOLOGY ORDERABLE S Performing Organization Address City/[facility]/ZIP Co de Phone Number [facility] [place] [address] * (ABNORMAL) Hemogram (08/07/2023 10:55 PM EDT) WBC 13.0(H) 4.0 - 9.5 x10(3)/[facility] RBC 3.93(L) 4.00 - 5.21 x10(6)/[facility] Hemoglobin 9.9(L) 11.7 - 15.5 g/dL [facility] Comment: This result has been called to THONY WOODRUFF by Shae Campuzano on 08 07 2023 at 2308, and has been read back. Hematocrit 31.9(L) 35.7 - 45.8 % [facility] MCV 81.2(L) 82.6 - 94.4 fL [facility] MCH 25.2(L) 27.1 - 32.0 pg [facility] MCHC 31.0(L) 31.7 - 35.0 g/dL [facility] Platelets 400(H) 145 - 357 x10(3)/[facility] RDWSD 49.4(H) 37.0 - 46.0 [facility] RDWCV 16.6(H) 11.5 - 14.1 % [facility] MPV 10.0 7.6 - 12.9 [facility] nRBC % Auto 0.0 % [facility] nRBC Abs Auto 0.000 0.000 - 0.000 x10(3)/[facility] Blood 08/07/2023 10:5 5 PM EDT 08/07/2023 11:01 PM EDT Narrative Resulting Agency Comment Spec In Lab Jessica Early MD HEMATOLOGY ORDERABLE S [facility] [place] [address] * Lactate, whole blood, send to lab ([facility]) (08/07/2023 10:55 PM EDT) Pathologist [facility] Lactate WB 1.6 0.5 - 2.2 mmol/L [facility] Blood 08/07/2023 10:5 5 PM EDT 08/07/2023 11:01 PM EDT Narrative Resulting Agency Comment Spec In Lab Aaliyah Disla MD CHEMISTRY ORDERABLES Performing Organization Address [facility] Co de Phone Number [facility] [place] [address] * (ABNORMAL) Comprehensive metabolic panel (non-fasting) (08/07/2023 10:55 PM EDT) [facility] Glucose Lvl 108 65 - 199 mg/dL [facility] Comment:Diabetes: >=200 mg/d L plus symptoms BUN 24(H) 8 - 18 mg/dL [facility] Creatinine 2.20(H) 0.70 - 1.20 mg/dL [facility] Sodium 137 135 - 145 mmol/L [facility] Potassium 4.3 3.5 - 5.0 mmol/L [facility] Comment: Please note: ??Patients with WBC >100,000 may have falsely elevated Potassium levels. ??For accurate Potassium quantification in these patients send serum separator tube (gold top) for subsequent determinations. ??Contact the Clinical Chemistry Laboratory if there are any questions. Chloride 108(H) 98 - 107 mmol/L [facility] CO2 18(L) 22 - 31 mmol/L [facility] Anion Gap 11 5 - 15 mmol/L [facility] Calcium 8.0(L) 8.5 - 10.5 mg/dL [facility] Comment:result rechecked-FRANCISCO Total Protein 6.5 6.1 - 8.0 g/dL [facility] Albumin 3.0(L) 3.2 - 5.2 g/dL [facility] AST 9 0 - 30 unit/L [facility] ALT 8 0 - 30 unit/L [facility] Alk Phos 75 35 - 105 unit/L [facility] Total Bilirubin 0.7 0.2 - 1.3 mg/dL [facility] Estimated GFR 23(L) >=60 mL/min/1. 73 m?? [facility] Comment: This patient's estimated GFR was [...] and symptoms in addition to eGFR. Blood 08/07/2023 10:5 5 PM EDT 08/07/2023 11:01 PM EDT Narrative Resulting Agency Comment Spec In Lab Aaliyah Disla MD CHEMISTRY ORDERABLES Performing Organization Address City/[facility]/ZIP Co de Phone Number [facility] [place] [address] * Blood culture (08/07/2023 8:32 PM EDT) Blood Culture No growth at 5 days. [facility] Blood 08/07/2023 8:32 PM EDT 08/07/2023 9:07 PM EDT Comment:R Hand, set 2 Narrative Resulting Agency Comment Spec In Lab Ismael Sanchez MD MICROBIOLOGY - BLOOD ORDERABLES [facility] [place] [address] * (ABNORMAL) Urine culture (08/07/2023 6:40 PM EDT) Urine Culture Greater than 50,000 cfu/mL Proteus vulgaris 10,000-49,000 cfu/ml Enterococcus faecalis 10,000-49,000 cfu/ml Staphylococcus aureus (A) [facility] Organism Proteus vulgaris(A) [facility] Organism Enterococcus faecalis(A) [facility] Organism Staphylococcus aureus(A) [facility] Nephrostomy Urine 08/07/2023 6:40 PM EDT 08/07/2023 8:44 PM EDT Narrative Resulting Agency Comment Spec In Lab Organism Antibiotic Method Susceptibility Proteus vulgaris Amikacin VITEK 2 METHOD Sensitive Proteus vulgaris Ampicillin + Sulbactam VITEK 2 METHOD Sensitive Proteus vulgaris Aztreonam VITEK 2 METHOD Sensitive Proteus vulgaris Cefazolin VITEK 2 METHOD Resistant Proteus vulgaris Cefepime VITEK 2 METHOD <=1: Sensitive Proteus vulgaris Ceftazidime VITEK 2 METHOD <=1: Sensitive Proteus vulgaris Ceftriaxone VITEK 2 METHOD Sensitive Proteus vulgaris Ertapenem VITEK 2 METHOD Sensitive Proteus vulgaris Gentamicin VITEK 2 METHOD Sensitive Proteus vulgaris Levofloxacin VITEK 2 METHOD Sensitive Comment: Levofloxacin and Ciprofloxacin may not adequately treat infections in critically ill patients even when isolates test susceptible in the laboratory. Contact Infectious Disease before using in critically ill patients. Proteus vulgaris Nitrofurantoin VITEK 2 METHOD Resistant Proteus vulgaris Piperacillin/Tazobactam VITEK 2 METHO D <=4: Sensitive Proteus vulgaris Tetracycline VITEK 2 METHOD Resistant Proteus vulgaris Tobramycin VITEK 2 METHOD Sensitive Proteus vulgaris Trimethoprim/Sulfa VITEK 2 METHOD Sensitive Enterococcus faecalis Ampicillin VITEK 2 METHOD Sensitive Enterococcus faecalis Ciprofloxacin VITEK 2 METHOD Sensitive Enterococcus faecalis Levofloxacin VITEK 2 METHOD Sensitive Enterococcus faecalis Nitrofurantoin VITEK 2 METHOD Sensitive Enterococcus faecalis Penicillin VITEK 2 METHOD Sensitive Enterococcus faecalis Vancomycin VITEK 2 METHOD Sensitive Staphylococcus aureus Gentamicin VITEK 2 METHOD Sensitive Comment:Gentamicin i s not appropriate for Antrim-therapy. Staphylococcus aureus Nitrofurantoin VITEK 2 METHOD Sensitive Staphylococcus aureus Oxacillin VITEK 2 METHOD Sensitive Comment: Oxacillin (methicillin) susceptibility is a surrogate for the oral and parenteral cephalosporins, beta-lactam combination agents (amoxicillin-clavulanate, ampicillin-sulbactam and piperacillin-tazobactam) and carbapenem agents. ??It is NOT a surrogate for penicillin, ampicillin or piperacillin susceptibility. Staphylococcus aureus Trimethoprim/Sulfa VITEK 2 METHO D Sensitive Staphylococcus aureus Tetracycline VITEK 2 METHOD Sensitive Staphylococcus aureus Vancomycin VITEK 2 METHOD Sensitive Alin Caal MD MICROBIOLOGY - GENER AL ORDERABLES Performing Organization Address [facility] Co de Phone Number [facility] [place] [address] * (ABNORMAL) Urinalysis Microscopic Exam (08/07/2023 6:40 PM EDT) RBC UA >100(H) 0 - 4 /HPF [facility] WBC UA >100(H) 0 - 5 /HPF [facility] Bacteria UA Many(A) None /HPF [facility] Squam Epith UA 2 <=4 /HPF [facility] Hyaline Cast UA <1 0 - 2 /LPF MAR Y [facility] Comment:Interpret with cauti on, manual microscopic results are from an unspun specimen Nephrostomy Urine 08/07/2023 6:40 PM EDT 08/07/2023 6:46 PM EDT Narrative Resulting Agency Comment Spec In Lab Alin Caal MD URINE ORDERABLES Performing Organization Address [facility] Co de Phone Number [facility] [place] [address] * (ABNORMAL) Urinalysis with reflex Culture (08/07/2023 5:05 PM EDT) Glucose UA Negative Negative mg/dL [facility] Protein UA >=300(A) Negative mg/dL [facility] Bilirubin UA Negative Negative mg/dL [facility] Comment: Clinical correlation required for positive Urine Bilirubin results as false positive may occur with some drugs and drug related products. If a false positive is suspected a serum total bilirubin should be considered if clinically indicated. Urobilinogen UA Normal Normal mg/dL [facility] pH UA 7.0 5.0 - 8.0 [facility] Blood UA Large(A) Negative mg/dL [facility] Ketones UA Negative Negative mg/dL [facility] Nitrite UA Positive(A) Negative [facility] Leukocytes UA Large(A) Negative mcL [facility] Appearance UA Turbid(A) Clear [facility] Spec Sunset UA 1.018 1.005 - 1.030 [facility] Color UA Yellow Yellow [facility] Culture Reflexed Yes MAR Y [facility] Nephrostomy Urine 08/07/2023 5:05 PM EDT 08/07/2023 6:46 PM EDT Narrative Resulting Agency Comment Spec In Lab Aaliyah Disla MD URINE ORDERABLES Performing Organization Address City/State/[facility] Co de Phone Number [facility] [place] [address] * IR Nephrogram/Nephrostomy Tube Exchange Bilateral (08/07/2023 3:53 PM EDT) Anatomical Region Laterality Modality X-Ray Angiograph y Narrative 08/07/2023 3:53 PM EDT Table formatting from the original result was not included. Images from the original result were not included. IR PROCEDURE NOTE Procedure: Bilateral nephrostomy tube exchange Indication for Procedure: Per Mitesh Lewis Juan Miguel is a 73 y.o. female with PMH of chronic BL nephrostomy tubes ??who presents to Interventional Radiology to undergo bilateral [...] advanced into the collecting system under fluoroscopy. ??Existing catheter removed over wire and a new 10Fr locking pigtail catheter placed, pigtail positioned in renal pelvis. ??Position was confirmed with contrast injection. ??Catheter was not anchored with suture but was connected to bag drainage. The same procedure was repeated on the right, again with placement of a 10 Armenian locking pigtail drainage catheter. Medications: 2% lidocaine gel topical. Est Blood Loss: <5cc. Complications: ??No immediate. Impression: 1. ??Bilateral 10 Fr nephrostomy tube exchange. 2. ??Will plan for routine exchange again in 6-7 weeks. Resident/Fellow: ??None. Attending: IDr. Nice performed this procedure. ?? Ismael Sanchez MD IMG IR ORDERABLES * Blood culture (08/07/2023 6:34 AM EDT) Blood Culture No growth at 5 days. [facility] Blood ANTECUBITAL REGION STRUCTURE / Unknown 08/07/2023 6:34 AM EDT 08/07/2023 8:10 AM EDT Narrative Resulting Agency Comment Spec In Lab Cecile Edwards MD MICROBIOLOGY - BLOOD ORDERABLES [facility] [place] [address] * CT Abdomen & Pelvis wo Contrast (08/07/2023 5:48 AM EDT) Anatomical Region Laterality Modality Abdomen, Pelvis Computed Tomogra phy Impressions 08/07/2023 7:11 AM EDT * ??Progressive organization of left chest loculated empyemas versus intrapulmonary abscesses. * ??Increased small left pleural effusion. * ??Peribronchial thickening in bilateral lower lungs may reflect atelectasis or atypical infection/inflammation. * ??Unchanged dilation of common bile duct up to 23 mm. * ??New fat stranding adjacent to pancreatic head and uncinate process may reflect focal pancreatitis or extension of right perinephric inflammation. * ??Persistent moderate hydroureteronephrosis and increased findings of right pyelonephritis/ureteritis despite a right percutaneous nephrostomy tube in unchanged position are concerning for urinary obstruction. Functional assessment of the nephrostomy is recommended. * ??Suspected stricture of the distal ureter. Consider further evaluation with a CT urogram. Thank you for letting us participate in the care of this patient. ??If you are a health care provider and have any questions regarding this report, please contact the number below. ??For patients who have questions please contact the health health care specialist that requested your imaging first. ? Electronically signed by: Lena Wu MD, [facility] ([phone]), at 08/07/2023 7:11 AM Narrative 08/07/2023 7:11 AM EDT EXAMINATION: CT ABDOMEN AND PELVIS WO CONTRAST CLINICAL HISTORY: flank pain R flank pain, nephrostomy not draining TECHNIQUE: Helical CT of the abdomen and pelvis without intravenous contrast. Oral contrast was not administered. Multiplanar reformatted images were generated. COMPARISON: CT abdomen pelvis 07/09/2023. FINDINGS: The absence of intravenous contrast limits the evaluation of solid viscera and vasculature. Lower chest: Partially visualized at least 3.6 cm thick-walled air-fluid collection in the left lungs/pleura. Approximately 5.7 x 5.5 x 3.6 cm rim-enhancing air-fluid collection in the left lower lungs/pleura. These collections are more organized compared to CT 07/09/2023. Increased small left pleural effusion is contiguous with the trace pericardial effusion. Increased atelectasis in the left lower lung. Peribronchial thickening in bilateral lower lungs. Liver: Normal size and attenuation. Bile ducts: Unchanged dilation of common bile duct up to 23 mm. Gallbladder: No calcified stones. Normal caliber wall. Pancreas: Fat stranding adjacent to pancreatic head and uncinate process.. Normal attenuation without ductal dilatation. Spleen: Within normal limits. Adrenals: Normal. Kidneys/ureters/urinary bladder: Unchanged position of the right percutaneous nephrostomy tube with the pigtail formed in a lower pole calyx. Persistent moderate right hydroureteronephrosis to the level of distal ureter. Suspected stricture of the distal ureter. Increased right perinephric and periureteric fat stranding. Unchanged position of left percutaneous nephrostomy tube with pigtail formed within the renal pelvis. Unchanged left ureterectasis. Similar trace left perinephric and periureteric fat stranding. Urinary bladder is decompressed which limits evaluation. Vasculature: No abdominal aortic aneurysm. Atherosclerotic calcifications in aorta and its branches. Lymph Nodes: No enlarged lymph nodes. Bowel: Nondilated, no wall thickening. ?? Scattered colonic diverticuli without acute inflammatory changes. Peritoneum and retroperitoneum: No free fluid or loculated fluid collection. No pneumoperitoneum. Abdominal wall: Normal. Reproductive organs: Uterus and adnexa are within normal limits. Osseous structures: No suspicious lesions. Procedure Note Vic Wu MD - 08/07/2023 EXAMINATION: CT ABDOMEN AND PELVIS WO CONTRAST CLINICAL HISTORY: flank pain R flank pain, nephrostomy not draining TECHNIQUE: Helical CT of the abdomen and pelvis without intravenouscontrast. Oral contrast was not administered. Multiplanar reformatted images were generated. COMPARISON: CT abdomen pelvis 07/09/2023. FINDINGS: The absence of intravenous contrast limits the evaluation of solid visceraand vasculature. Lower chest: Partially visualized at least 3.6 cm thick-walled air-fluid collection in the left lungs/pleura. Approximately 5.7 x 5.5 x 3.6 cm rim-enhancing air-fluid collection in the left lower lungs/pleura. These collections are more organized compared to CT 07/09/2023. Increased smallleft pleural effusion is contiguous with the trace pericardial effusion.Increased atelectasis in the left lower lung. Peribronchial thickening in bilaterallower lungs. Liver: Normal size and attenuation. Bile ducts: Unchanged dilation of common bile duct up to 23 mm. Gallbladder: No calcified stones. Normal caliber wall. Pancreas: Fat stranding adjacent to pancreatic head and uncinateprocess.. Normal attenuation without ductal dilatation. Spleen: Within normal limits. Adrenals: Normal. Kidneys/ureters/urinary bladder: Unchanged position of the rightpercutaneous nephrostomy tube with the pigtail formed in a lower pole calyx.Persistent moderate right hydroureteronephrosis to the level of distal ureter.Suspected stricture of the distal ureter. Increased right perinephric andperiureteric fat stranding. Unchanged position of left percutaneous nephrostomy tube withpigtail formed within the renal pelvis. Unchanged left ureterectasis. Similartrace left perinephric and periureteric fat stranding. Urinary bladder isdecompressed which limits evaluation. Vasculature: No abdominal aortic aneurysm. Atherosclerotic calcificationsin aorta and its branches. Lymph Nodes: No enlarged lymph nodes. Bowel: Nondilated, no wall thickening. Scattered colonic diverticuliwithout acute inflammatory changes. Peritoneum and retroperitoneum: No free fluid or loculated fluidcollection. No pneumoperitoneum. Abdominal wall: Normal. Reproductive organs: Uterus and adnexa are within normal limits. Osseous structures: No suspicious lesions. IMPRESSION * Progressive organization of left chest loculated empyemas versus intrapulmonary abscesses. * Increased small left pleural effusion. * Peribronchial thickening in bilateral lower lungs may reflectatelectasis or atypical infection/inflammation. * Unchanged dilation of common bile duct up to 23 mm. * New fat stranding adjacent to pancreatic head and uncinate processmay reflect focal pancreatitis or extension of right perinephric inflammation. * Persistent moderate hydroureteronephrosis and increased findings ofright pyelonephritis/ureteritis despite a right percutaneous nephrostomy tubein unchanged position are concerning for urinary obstruction. Functionalassessment of the nephrostomy is recommended. * Suspected stricture of the distal ureter. Consider further evaluationwith a CT urogram. Thank you for letting us participate in the care of this patient. If youare a health care provider and have any questions regarding this report,please contact the number below. For patients who have questions please contactthe health health care specialist that requested your imaging first. Electronically signed by: Lena Wu MD, [facility]([phone]), at 08/07/2023 7:11 AM Cecile Edwards MD [facility] CT ORDERABLES * (ABNORMAL) Lactate, whole blood, send to lab ([facility]) (08/07/2023 4:36 AM EDT) Lactate WB 2.7(H) 0.5 - 2.2 mmol/L [facility] Blood 08/07/2023 4:36 AM EDT 08/07/2023 4:42 AM EDT Narrative Resulting Agency Comment Spec In Lab Cecile Edwards MD CHEMISTRY ORDERABLES [facility] [place] [address] * (ABNORMAL) Comprehensive metabolic panel (non-fasting) (08/07/2023 4:36 AM EDT) Glucose Lvl 157 65 - 199 mg/dL [facility] Comment:Diabetes: >=200 mg/d L plus symptoms BUN 25(H) 8 - 18 mg/dL [facility] Creatinine 2.23(H) 0.70 - 1.20 mg/dL [facility] Sodium 140 135 - 145 mmol/L [facility] Potassium 5.1(H) 3.5 - 5.0 mmol/L [facility] Comment: Please note: ??Patients with WBC >100,000 may have falsely elevated Potassium levels. ??For accurate Potassium quantification in these patients send serum separator tube (gold top) for subsequent determinations. ??Contact the Clinical Chemistry Laboratory if there are any questions. Chloride 108(H) 98 - 107 mmol/L [facility] CO2 20(L) 22 - 31 mmol/L [facility] Anion Gap 12 5 - 15 mmol/L [facility] Calcium 9.2 8.5 - 10.5 mg/dL [facility] Total Protein 8.2(H) 6.1 - 8.0 g/dL [facility] Albumin 3.9 3.2 - 5.2 g/dL [facility] AST 13 0 - 30 unit/L [facility] ALT 9 0 - 30 unit/L [facility] Alk Phos 99 35 - 105 unit/L [facility] Total Bilirubin 0.9 0.2 - 1.3 mg/dL [facility] Estimated GFR 23(L) >=60 mL/min/1. 73 m?? [facility] Comment: This patient's estimated GFR was [...] and symptoms in addition to eGFR. Blood 08/07/2023 4:36 AM EDT 08/07/2023 4:43 AM EDT Narrative Resulting Agency Comment Spec In Lab Cecile Edwards MD CHEMISTRY ORDERABLES Performing Organization Address City/[facility]/ZIP Co de Phone Number [facility] [place] [address] * Lipase (08/07/2023 4:35 AM EDT) Lipase 34 0 - 60 unit/L [facility] Blood Venous Draw / Unknown 08/07/2023 4:35 AM EDT 08/07/2023 4:49 AM EDT Narrative Resulting Agency Comment Spec In Lab Robby Norman MD CHEMISTRY ORDERABLES [facility] [place] [address] * Gold Tube HOLD (08/07/2023 4:35 AM EDT) Gold Hold Sample in lab. [facility] Blood Venous Draw / Unknown 08/07/2023 4:35 AM EDT 08/07/2023 4:44 AM EDT Ceasar Robles MD CHEMISTRY ORDERABLE S [facility] [place] [address] * Blue Tube HOLD (08/07/2023 4:35 AM EDT) Blue Hold Sample in lab. [facility] Blood Venous Draw / Unknown 08/07/2023 4:35 AM EDT 08/07/2023 4:44 AM EDT Ceasar Robles MD HEMATOLOGY ORDERABL ES Performing Organization Address [facility] [place] [address] * (ABNORMAL) Differential, Automated (08/07/2023 4:35 AM EDT) [facility] Neutrophils % 89.2 % [facility] Neutr Abs (ANC) 18.21(H) 1.70 - 6.10 x10(3)/mc L [facility] Lymphocytes % 3.0 % [facility] Lymphocytes Abs 0.6(L) 0.9 - 3.2 x10(3)/mc L [facility] Monocytes % 7.1 % [facility] Monocyte Abs 1.4(H) 0.3 - 0.9 x10(3)/mc L [facility] Eosinophils % 0.0 % [facility] Eosinophils Abs 0.0 0.0 - 0.4 x10(3)/mc L [facility] Basophils % 0.2 % [facility] Basophils Abs 0.0 0.0 - 0.1 x10(3)/mc L [facility] Immature Gran % 0.50 % [facility] Comment: Immature granulocytes(IG's)percentage and absolute count will include metamyelocytes, myelocytes, and promyelocytes. Blood smears from CBCs yielding IG's will be scanned manually for concordance. If this scan disagrees with the automated IG or if promyelocytes are noted, a manual differential will be performed. [place] Gran Abs 0.11(H) 0.00 - 0.04 x10(3)/ L [facility] Blood 08/07/2023 4:35 AM EDT 08/07/2023 4:43 AM EDT Narrative Resulting Agency Comment Spec In Lab Ceasar Robles MD HEMATOLOGY ORDERABL ES [facility] [place] [address] * (ABNORMAL) Hemogram (08/07/2023 4:35 AM EDT) WBC 20.4(H) 4.0 - 9.5 x10(3)/[facility] RBC 5.08 4.00 - 5.21 x10(6)/[facility] Hemoglobin 12.7 11.7 - 15.5 g/dL [facility] Hematocrit 40.3 35.7 - 45.8 % [facility] MCV 79.3(L) 82.6 - 94.4 fL [facility] MCH 25.0(L) 27.1 - 32.0 pg [facility] MCHC 31.5(L) 31.7 - 35.0 g/dL [facility] Platelets 487(H) 145 - 357 x10(3)/[facility] RDWSD 46.6(H) 37.0 - 46.0 [facility] RDWCV 16.1(H) 11.5 - 14.1 % [facility] MPV 9.1 7.6 - 12.9 [facility] nRBC % Auto 0.0 % [facility] nRBC Abs Auto 0.000 0.000 - 0.000 x10(3)/[facility] Blood 08/07/2023 4:35 AM EDT 08/07/2023 4:43 AM EDT Narrative Resulting Agency Comment Spec In Lab Ceasar Robles MD HEMATOLOGY ORDERABL ES Performing Organization Address City/[facility] Co de Phone Number [facility] [place] [address] * EKG 12 Lead (08/07/2023 3:55 AM EDT) Ventricular rate 72 BPM MUSE SYSTEM Atrial Rate 72 BPM MUSE SYSTEM P-R Interval 150 ms MUSE SYSTEM QRS Duration 78 ms MUSE SYSTEM Q-T Interval 426 ms MUSE SYSTEM QTC Calculated (Bezet) 466 ms MUSE SYSTEM Calculated P [place] 79 degrees MUSE SYSTEM Calculated R [place] 71 degrees MUSE SYSTEM Calculated T [place] 48 degrees MUSE SYSTEM INTERPRETATION Normal sinus rhythm Normal ECG No previous ECGs available I personally reviewed the tracing and edited the fellows interpretation Confirmed by fellow MD [place], Samia ([id number]) on 08/08/2023 6:26:26 PM Confirmed by Fabi Castellanos ([id number]) on 08/10/2023 7:11:34 PM MUSE SYSTEM 08/07/2023 3:55 AM EDT 08/10/2023 7:11 PM EDT Cecile Edwards MD ECG ORDERABLES Performing Organization Address [facility] Co de Phone Number MUSE SYSTEM documented in this encounter Visit Diagnoses Diagnosis BRITNI (acute kidney injury)- Primary Acute kidney failure, unspecified Pyelonephritis, acute Acute pyelonephritis without lesion of renal medullary necrosis Metastatic urothelial carcinoma Secondary malignant neoplasm of other urinary organs documented in this encounter Admitting Diagnoses Diagnosis BRITNI (acute kidney injury) Acute kidney failure, unspecified documented in this encounter Administered Medications Inactive Administered Medications - up to 3 most recent administrations Medication Order MAR Action Action Date Dose Rate Site acetaminophen (Tylenol) tablet 975 mg 975 mg, Oral, EVERY 8 HOURS PRN, Starting on Nicolasa 08/07/23 at 2109, Until 08/10/23 at 1256, Pain, Headaches, Fever, Maximum dose of acetaminophen is 4,000 mg from all sources in 24 hours. When ordered for pain, acetaminophen should be given even when other ordered pain medications are indicated., Routine Given 08/09/2023 9:10 PM EDT 975 mg Given 08/09/2023 12:19 PM EDT 975 mg Given 08/09/2023 3:59 AM EDT 975 mg ampicillin-sulbactam (Unasyn) 1.5 g vial attach to sodium chloride 0.9% 50 mL Mini-Bag Plus 1.5 g, Intravenous, EVERY 12 HOURS, First dose on Fri08/09/23 at 1915, Until Discontinued, Administer over 15 Minutes, Warning Vesicant/Irritant Medication , Indication for (Active or Suspected): Urinary Tract/Pyelonephritis New Bag 08/10/2023 6:17 AM EDT 1.5 g 200 mL/hr New Bag 08/09/2023 8:02 PM EDT 1.5 g 200 mL/hr cefTRIAXone (Rocephin) 1 g vial attach to sodium chloride 0.9% 50 mL Mini-Bag Plus 1 g, Intravenous, EVERY 24 HOURS, First dose (after last modification) on Fri08/08/23 at 1415, Until Discontinued, Administer over 30 Minutes, Indication for (Active or Suspected): Urinary Tract/Pyelonephritis New Bag 08/08/2023 9:10 PM EDT 1 g 100 mL/hr heparin (porcine) (5,000 units/1 mL) subcutaneous injection 5,000 Units 5,000 Units, Subcutaneous, EVERY 8 HOURS SCHEDULED, First dose on Fri08/07/23 at 2200, Until Discontinued, Routine Given 08/10/2023 6:15 AM EDT 5,000 Units Given 08/09/2023 9:11 PM EDT 5,000 Units Given 08/09/2023 5:49 AM EDT 5,000 Units HYDROmorphone (Dilaudid) (0.5 mg/0.5 mL) injection syringe 0.5 mg 0.5 mg, Intravenous, ONCE, 1 dose, On Fri08/07/23 at 0359, STAT Given 08/07/2023 5:08 AM EDT 0.5 mg HYDROmorphone (Dilaudid) (0.5 mg/0.5 mL) injection syringe 0.5 mg 0.5 mg, Intravenous, ONCE, 1 dose, On Fri08/07/23 at 0933, STAT Given 08/07/2023 9:33 AM EDT 0.5 mg HYDROmorphone (Dilaudid) tablet 2 mg 2 mg, Oral, EVERY 6 HOURS PRN, Starting on Fri08/08/23 at 1253, Until Fri08/10/23 at 1256, Pain, Routine lactated Ringers 1,000 mL IV bolus Intravenous, ONCE, 1 dose, On Nicolasa 08/07/23 at 0456 New Bag 08/07/2023 5:11 AM EDT lactobacillus with pectin capsule 1 capsule 1 capsule, Oral, DAILY, First dose on Fri08/08/23 at 1445, Until Discontinued, Routine Given 08/10/2023 8:13 AM EDT 1 capsule Given 08/09/2023 8:18 AM EDT 1 capsule Given 08/08/2023 2:08 PM EDT 1 capsule levothyroxine (Synthroid) tablet 75 mcg 75 mcg, Oral, DAILY, First dose on Nicolasa 08/07/23 at 1220, Until Discontinued, Routine Given 08/10/2023 8:14 AM EDT 75 mcg Given 08/09/2023 8:18 AM EDT 75 mcg Given 08/08/2023 8:03 AM EDT 75 mcg ondansetron (pf) (Zofran) (2 mg/mL) injection 4 mg 4 mg, Intravenous, ONCE, 1 dose, On Fri08/07/23 at 0441, STAT Given 08/07/2023 5:07 AM EDT 4 mg piperacillin-tazobactam (Zosyn) 3.375 g vial attach to sodium chloride 0.9% 50 mL Mini-Bag Plus 3.375 g, Intravenous, EVERY 8 HOURS, First dose on Fri08/07/23 at 1145, Until Discontinued, Administer over 4 Hours, Warning Vesicant/Irritant Medication Do not administer or Y-site with lactated ringers., Indication for (Active or Suspected): Pneumonia (Community) New Bag 08/08/2023 11:37 AM EDT 3.375 g 12.5 mL/hr New Bag 08/08/2023 2:51 AM EDT 3.375 g 12.5 mL/hr New Bag 08/07/2023 8:19 PM EDT 3.375 g 12.5 mL/hr sodium chloride 0.9 % (flush) (BD PosiFlush Normal Saline 0.9) flush 5 mL 5 mL, Intravenous, 2 TIMES DAILY, First dose on Nicolasa 08/07/23 at 1220, Until Discontinued, Routine Given 08/10/2023 8:14 AM EDT 5 mLs Given 08/09/2023 9:11 PM EDT 5 mLs Given 08/09/2023 8:19 AM EDT 5 mLs sodium chloride 0.9% 1,000 mL IV bolus at 500 mL/hr, Intravenous, ONCE, 1 dose, On Nicolasa 08/07/23 at 2330 New Bag 08/07/2023 10:48 PM EDT 500 mL/hr sodium chloride 0.9% 500 mL IV bolus at 500 mL/hr, Intravenous, ONCE, 1 dose, On Nicolasa 08/07/23 at 2215 New Bag 08/07/2023 9:28 PM EDT 500 mL/hr sodium chloride 0.9% infusion 100 mL/hr, Intravenous, CONTINUOUS, Starting on Fri08/08/23 at 1315, Until Fri08/08/23 at 1914 New Bag 08/08/2023 1:14 PM EDT 100 mL/hr 100 mL/hr sulfamethoxazole-trimethoprim (Bactrim) 351 mg in dextrose 5% 571 mL infusion 351 mg (rounded from 351.5 mg = 15 mg/kg/day ? 70.3 kg), Intravenous, EVERY 8 HOURS, 1 dose, First dose on Nicolasa 08/07/23 at 0600, Administer over 90 Minutes, Dose in mg is based on trimethoprim component, Indication for (Active or Suspected): Bacteremia/Sepsis New Bag 08/07/2023 6:33 AM EDT 351 mg 380.7 mL/hr documented in this encounter Active and Recently Administered Medications Times are shown in EDT. Scheduled Medication Order 08/08/2023 08/09/2023 08/10/2023 ampicillin-sulbactam (Unasyn) 1.5 g vial attach to sodium chloride 0.9% 50 mL Mini-Bag Plus 1.5 g, Intravenous, EVERY 12 HOURS, First dose on Fri08/09/23 at 1915, Until Discontinued, Administer over 15 Minutes, Warning Vesicant/Irritant Medication , Indication for (Active or Suspected): Urinary Tract/Pyelonephritis 2001 (New Bag - Provider: Minerva Sanders RN)2100 (Stopped - Provider: Minerva Sanders RN) 0617 (New Bag - Provider: Minerva Sanders RN)0632 (Stopped - Provider: Minerva Sanders RN) cefTRIAXone (Rocephin) 1 g vial attach to sodium chloride 0.9% 50 mL Mini-Bag Plus (CANCELED) 1 g, Intravenous, EVERY 24 HOURS, First dose (after last modification) on Fri08/08/23 at 1415, Until Discontinued, Administer over 30 Minutes, Indication for (Active or Suspected): Urinary Tract/Pyelonephritis 2109 (New Bag - Provider: Trista Carlin RN)2139 (Stopped - Provider: Trista Carlin RN) heparin (porcine) (5,000 units/1 mL) subcutaneous injection 5,000 Units 5,000 Units, Subcutaneous, EVERY 8 HOURS SCHEDULED, First dose on Fri08/07/23 at 2200, Until Discontinued, Routine 0547 (Given - Provider: Thony Woodruff RN)1408 (Given - Provider: Tg Lugo)2109 (Given - Provider: Trista Carlin, TORITO) 0549 (Given - Provider: Trista Carlin, TORITO)1539 (Not Given - Provider: Lindsey Vasquez RN - Reason: Patient/family refused - Comment: Kevin Quezada APRN notified)2110 (Given - Provider: Minerva Sanders RN) 0615 (Given - Provider: Minerva Sanders RN) lactobacillus with pectin capsule 1 capsule 1 capsule, Oral, DAILY, First dose on Fri08/08/23 at 1445, Until Discontinued, Routine 1408 (Given - Provider: Tg Lugo) 0818 (Given - Provider: Lindsey Vasquez, TORITO) 0813 (Given - Provider: Christina Patten, TORITO) levothyroxine (Synthroid) tablet 75 mcg 75 mcg, Oral, DAILY, First dose on Fri08/07/23 at 1220, Until Discontinued, Routine 0803 (Given - Provider: Tg Lugo) 0818 (Given - Provider: Lindsey Vasquez, TORITO) 0814 (Given - Provider: Christina Patten RN) piperacillin-tazobacta m (Zosyn) 3.375 g vial attach to sodium chloride 0.9% 50 mL Mini-Bag Plus (CANCELED) 3.375 g, Intravenous, EVERY 8 HOURS, First dose on Fri08/07/23 at 1145, Until Discontinued, Administer over 4 Hours, Warning Vesicant/Irritant Medication Do not administer or Y-site with lactated ringers., Indication for (Active or Suspected): Pneumonia (Community) 0019 (Stopped - Provider: Thony Woodruff, TORITO)0251 (New Bag - Provider: Thony Woodruff, TORITO)0651 (Stopped - Provider: Thony Woodruff, RN)1137 (New Bag - Provider: Andrew Rogers RN)1316 (Stopped - Provider: Tg Lugo - Comment: Time automatically adjusted from order being discontinued) sodium chloride 0.9 % (flush) (BD PosiFlush Normal Saline 0.9) flush 5 mL 5 mL, Intravenous, 2 TIMES DAILY, First dose on Fri08/07/23 at 1220, Until Discontinued, Routine 0803 (Given - Provider: Tg Lugo)2109 (Given - Provider: Trista Carlin, TORITO) 08 (Given - Provider: Lindsey Vasquez, RN)2110 (Given - Provider: Minerva Sanders, TORITO) 0814 (Given - Provider: Christina Patten, TORITO) Continuous Medication Order 08/08/2023 08/09/2023 08/10/2023 sodium chloride 0.9% infusion () 100 mL/hr, Intravenous, CONTINUOUS, Starting on Fri08/08/23 at 1315, Until Fri08/08/23 at 1914 1314 (New Bag - Provider: Tg Lugo)194 (Stopped - Provider: Trista Carlin, TORITO) PRN Medication Order 08/08/2023 08/09/2023 08/10/2023 acetaminophen (Tylenol) tablet 975 mg 975 mg, Oral, EVERY 8 HOURS PRN, Starting on Nicolasa 08/07/23 at 2109, Until 08/10/23 at 1256, Pain, Headaches, Fever, Maximum dose of acetaminophen is 4,000 mg from all sources in 24 hours. When ordered for pain, acetaminophen should be given even when other ordered pain medications are indicated., Routine 1729 (Given - Provider: Andrew Rogers, RN) 0359 (Given - Provider: Angie Pereyra, TORITO)1219 (Given - Provider: Lindsey Vasquez, TORITO)2109 (Given - Provider: Minerva Sanders, TORITO) HYDROmorphone (Dilaudid) tablet 2 mg 2 mg, Oral, EVERY 6 HOURS PRN, Starting on Fri08/08/23 at 1253, Until 08/10/23 at 1256, Pain, Routine lidocaine (Xylocaine) 1% (10 mg/mL) injection 3 mg 3 mg (0.3 mL), Subcutaneous, ONCE PRN, 1 dose, Starting on Nicolasa 08/07/23 at 1218, Until 08/10/23 at 1256, for discomfort with PIV insertion, Routine melatonin tablet 3 mg 3 mg, Oral, NIGHTLY PRN, Starting on Fri08/07/23 at 1218, Until 08/10/23 at 1256, Sleep, Sleep, Routine prochlorperazine (Compazine) tablet 10 mg 10 mg, Oral, EVERY 6 HOURS PRN, Starting on Nicolasa 08/07/23 at 1218, Until 08/10/23 at 1256, Nausea, Maximum dose: 50 mg / 24 hrs, Routine sodium chloride 0.9 % (flush) (BD PosiFlush Normal Saline 0.9) flush 5-20 mL 5-20 mL, Intravenous, EVERY 1 MIN PRN, Starting on Nicolasa 08/07/23 at 1218, Until 08/10/23 at 1256, flush, Flush pertains to all indwelling lines. Flush per protocol found in the job aid using the link provided on this medication record., Routine documented in this encounter Care Teams Colorman Relationship Specialty Start Date End Date Tavia Ramirez, CARDIAC/VASCULAR SONOGRAPHER [facility] [place] [address] PCP - General Family Medicine 06/11/22 documented as of this encounter
--- OUTSIDE RECORDS SUMMARY | 2023-11-21 15:54 | XMS_ITS | Encounter Summary ---
Author Organization [facility] Address [facility] [place] [address] Care Team Providers Care Disc Recordist Name Role Phone Tavia Ramirez ALESSANDRO Primary Care Provider Encounter Details Date Type Department Care Team (Late st Contact Info) Description 08/21/2023 Notes Only Radiology at [facility] [place] [phone] Jose West MD [facility] [place] [address] Social History Tobacco Use Types Packs/Day Years Used Date Smoking Tobacco: Former Cigarettes Q uit: 07/04/2014 Smokeless Tobacco: Never Alcohol Use Standard Drinks/Week Comments Not Currently 0 (1 standard drink = 0.6 oz pur e alcohol) [facility] Utilities Answer Date Recorded In the [...] as of this encounter H&P Notes * Jose West MD - 08/21/2023 9:53 AM EDT Images from the original note were not included. INTERVENTIONAL RADIOLOGY FOCUSED H&P and PRE-PROCEDURE NOTE: PCP: Tavia Ramirez APRN Referring Provider: None Planned Procedure: Planned procedure: Bilateral Nephrostomy Tube Exchange (routine) Procedure Indication: Routine nephrostomy tube exchange Procedure Request: Procedure request received through the Interventional Radiology eDH order queue. Presenting Diagnosis/ Complaint: Barb Bullard is a 73 y.o. female with history of chronic bilateral nephrostomy tubes, presenting to interventional radiology for routine bilateral nephrostomy tube exchange. Most recent exchange 08/07/[address] Nice. Past Medical/Surgical History: Patient Active Problem List Diagnosis Code Metastatic [...] IR Mediport Placement 04/02/2021 Yuval Sinclair PA [facility] IR NEPHROGRAM/NEPHROSTOMY TUBE EXCHANGE BILATERAL 04/24/2022 IR Nephrogram/Nephrostomy Tube Exchange Bilateral 04/24/2022 Alin Dillard MD [facility] IR NEPHROGRAM/NEPHROSTOMY TUBE EXCHANGE BILATERAL 07/26/2022 IR Nephrogram/Nephrostomy Tube Exchange Bilateral 07/26/2022 Robe Hope PA [facility] IR NEPHROGRAM/NEPHROSTOMY TUBE EXCHANGE BILATERAL 10/18/2022 IR Nephrogram/Nephrostomy Tube Exchange Bilateral 10/18/2022 Alexis De La Cruz MD [facility] IR NEPHROGRAM/NEPHROSTOMY TUBE EXCHANGE BILATERAL 12/11/2022 IR Nephrogram/Nephrostomy Tube Exchange Bilateral 12/11/2022 Alexis De La Cruz MD [facility] IR NEPHROGRAM/NEPHROSTOMY TUBE EXCHANGE BILATERAL 02/13/2023 IR Nephrogram/Nephrostomy Tube Exchange Bilateral 02/13/2023 Alin Dillard MD [facility] IR NEPHROGRAM/NEPHROSTOMY TUBE EXCHANGE BILATERAL 04/04/2023 IR Nephrogram/Nephrostomy Tube Exchange Bilateral Alin Dillard MD [facility] IR NEPHROGRAM/NEPHROSTOMY TUBE EXCHANGE BILATERAL 04/25/2023 IR Nephrogram/Nephrostomy Tube Exchange Bilateral [facility] IR NEPHROGRAM/NEPHROSTOMY TUBE EXCHANGE BILATERAL 06/19/2023 IR Nephrogram/Nephrostomy Tube Exchange Bilateral Alexis De La Cruz MD [facility] IR NEPHROGRAM/NEPHROSTOMY TUBE EXCHANGE BILATERAL 07/09/2023 IR Nephrogram/Nephrostomy Tube Exchange Bilateral 07/09/2023 Alin Dillard MD [facility] IR NEPHROGRAM/NEPHROSTOMY TUBE EXCHANGE BILATERAL 08/07/2023 IR Nephrogram/Nephrostomy Tube Exchange Bilateral [facility] IR NEPHROSTOMY TUBE PLACEMENT PERCUTANEOUS BILATERAL 02/20/2021 IR Nephrostomy Tube Placement Percutaneous Bilateral [facility] IR NEPHROURETERAL (NU) STENT PLACEMENT/CHECK/CHANGE 07/13/2021 IR Nephroureteral (NU) Stent Placement Check/Change 07/13/2021 Alexis De La Cruz MD [facility] IR NEPHROURETERAL (NU) STENT PLACEMENT/CHECK/CHANGE 10/23/2021 IR Nephroureteral (NU) Stent Placement Check/Change 10/23/2021 Zeferino Rosado MD [facility] IR NEPHROURETERAL (NU) STENT PLACEMENT/CHECK/CHANGE 01/18/2022 IR Nephroureteral (NU) Stent Placement Check/Change 01/18/2022 Guillermo Nice MD [facility] PRO [facility] EBUS GUIDED SAMPL 3/> NODE STATION/STRUX N/A 04/04/2021 BRONCH, W ENDOBRONCHIAL ULTRASOUND (EBUS) GUIDED SAMPLING, 3+ NODES (WRVU 5.21) performed by Alonzo Cevallos MD at [facility] MA[facility] OR PRO BRONCHOSCOPY, DIAGNOSTIC W LAVAGE N/A 04/04/2021 BRONCHOSCOPY, RIGID OR FLEXIBLE, WITH BRONCHIAL ALVEOLAR LAVAGE (WRVU 2.88) performed by Alonzo Cevallos MD at [facility] MA[facility] OR Medications: Current Outpatient Medications on File Prior to Visit Medication Sig Dispense Refill lactobacillus with pectin 75 million cell -100 mg Capsule Take 1 capsule by mouth daily. 30 capsule0 HYDROmorphone (Dilaudid) 2 mg tablet Take 1 tablet by mouth every 6 hours as needed for Pain (As needed for breakthrough pain). 20 tablet 0 amoxicillin-clavulanate (Augmentin) 500-125 mg tablet Take 1 tablet by mouth every 12 hours. 20 tablet 0 prochlorperazine (Compazine) 10 mg [...] Current Facility-Administered Medications on File Prior to Visit Medication Dose Route Frequency Provider Last Rate Last Admin sodium chloride 0.9 % (flush) (BD PosiFlush Normal Saline 0.9) flush 10-20 mL 10-20 mL Intravenous Q1 Min Jose Rahman MD 20 mL at 05/13/23 1530 Allergies: Patient has no known allergies. Social History and Habits: Social History Socioeconomic History Marital status: Single Spouse name: Not on file Number of children: Not on file Years of education: Not on file Highest education level: Not on file Occupational History Not on file Tobacco Use Smoking status: Former Types: Cigarettes Quit date: 07/04/2014 Years since quittin.1 Smokeless tobacco: Never Vaping Use Vaping Use: Never used Substance and Sexual Activity Alcohol use: Not Currently Drug use: Never Sexual activity: Not on file Other Topics Concern Not on file Social History Narrative Not on file Social Determinants of Health Financial Resource Strain: Unknown (03/27/2021) Overall Financial Resource Strain (CARDIA) Difficulty of Paying Living Expenses: Patient declined Food Insecurity: No Food Insecurity (08/08/2023) Hunger Vital Sign Worried About Running Out of Food in the Last Year: Never true Ran Out of Food in the Last Year: Never true Transportation Needs: No Transportation Needs (08/08/2023) PRAPARE - Transportation Lack of Transportation (Medical): [...] Signs of Abuse Present: no Housing Stability: Low Risk (08/08/2023) Housing Stability Vital Sign Unable to Pay for Housing in the Last Year: No Number of Places Lived in the Last Year: 1 Unstable Housing in the Last Year: No Significant Family History: No family history on file. Pertinent ROS: as per HPI Labs: Lab Results Component Value Date WBC 11.4 (H) 08/19/2023 HCT 36.8 08/19/2023 PLATELET 559 (H) 08/19/2023 BUN 19 (H) 08/19/2023 CREATININE 1.74 (H) 08/19/2023 ALKPHOS 126 (H) 08/19/2023 AST 19 08/19/2023 ALBUMIN 3.8 08/19/2023 BILITOT 1.0 08/19/2023 ALT 26 08/19/2023 PROT 8.3 (H) 08/19/2023 K 4.1 08/19/2023 Imaging: IR nephrostomy tube exchange 08/07/2023: Physical Exam: Pending (to be performed in angio the day of procedure) ASA: Pending (to be assessed in angio the day of procedure) Mallampati Class: Pending (to be assessed in angio the day of procedure) Assessment: 73 y.o. female with history of obstructive uropathy and chronic bilateral nephrostomy tubes, presenting to interventional radiology for routine bilateral nephrostomy tube exchange. Most recent exchange 08/07/[address] Nice. Reviewed with Attending: Dr. Dillard Plan: Planned procedure: Bilateral Nephrostomy Tube Exchange (routine) Labs to be performed day of procedure: No labs Sedation: No Sedation Prophylactic antibiotic : None Contrast: No contrast Additional medications for procedure: Lidocaine Planned access site: Bilateral Flank Position: Prone Consent: Scanned Medications to discontinue (and days held): None Case Urgency:: G2- Elective Outpatient intervention within 8-14 days Jose West MD 08/21/2023 documented in this encounter Plan of Treatment Upcoming Encounters Date Type Department Care Team (Late st Contact Info) Description 12/08/2023 3:30 PM EDT Office Visit Hematology/Oncology at [address] [phone] Chase Mckay MD [facility] DR [place] [address] documented as of this encounter Visit Diagnoses Not on filedocumented in this encounter Care Teams Disc Recordist Relationship Specialty Start Date End Date Tavia Ramirez APRN [place] [address] PCP - General Family Medicine 06/11/22 documented as of this encounter
--- OUTSIDE RECORDS SUMMARY | 2023-11-21 15:54 | XMS_ITS | Encounter Summary ---
Author Organization [facility] Address [place] [address] Care Team Providers Care Mattress Stripper Name Role Phone James Tavia Foster APRN Primary Care Provider [phone] Encounter Details Date Type Department Care Team (Latest Contact Info) Description 09/26/2023 Travel Social History Tobacco Use Types Packs/Day Years Used Date Smoking Tobacco: Former Cigarettes Q uit: 07/04/2014 Smokeless Tobacco: Never Alcohol Use Standard Drinks/Week Comments Not Currently 0 (1 standard drink = 0.6 oz pur e alcohol) [facility] Utilities Answer Date Recorded In [...] in a fpc (including now)? No 08/08/2023 DH IPV Inpatient [...] 3:30 PM EDT Office Visit Hematology/Oncology at [address] [phone] Chase Mckay MD [facility] [address] [place] [address] documented as of this encounter Visit Diagnoses Not on filedocumented in this encounter Care Teams Mattress Stripper Relationship Specialty Start Date End Date Tavia Ramirez [place] [place] [address] PCP - General Family Medicine 06/11/22 documented as of this encounter
--- OUTSIDE RECORDS SUMMARY | 2023-11-21 15:54 | XMS_ITS | Encounter Summary ---
Author Organization [facility] [place] [address] Care Team Providers Care Estimate Clerk Name Role Phone James Tavia Foster APRN Primary Care Provider [phone] Reason for Referral * Diagnostic Test (Routine) - Closed Specialty Diagnoses / Procedures Referred By Contac t Referred To Contact Radiology Diagnoses 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 Metastatic urothelial carcinoma Procedures NM PET CT Skull Base to Mid-thigh Dianne Jacob APRN [address] [place] [address] [place] [address] [place] [address] Referral ID Status Reason Start Date Expiration Date V isits Requested Visits Authorized [id number] Closed Specialty Service Requested 09/29/2023 03/30/2025 1 1 Encounter Details Date Type Department Care Team (Late st Contact Info) Description 09/29/2023 1:30 PM EDT Office Visit Hematology/Oncology at [address] [phone] Chase Mckay MD [facility] DR HEMATOLOGY [place] [address] Dianne Jacob APRN [address] [place] [address] DR HEMATOLOGY AND ONCOLOGY [place], [place] [id number] 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; High risk medication use; Prolonged QT interval; Metastatic urothelial carcinoma Social History Tobacco Use Types Packs/Day Years Used Date Smoking Tobacco: Former Cigarettes Q uit: 07/04/2014 Smokeless Tobacco: Never Alcohol Use Standard Drinks/Week Comments Not Currently 0 (1 standard drink = 0.6 oz pur e alcohol) [facility] Utilities Answer Date Recorded In the past 12 months has th e electric, gas, oil, or water [employer] threatened to shut off services in your [...] place to sleep or slept in a retirement (including now)? No 08/08/2023 DH IPV Inpatient [...] Sign Reading Time Taken Comments Blood Pressure 122/71 09/29/2023 1:28 PM EDT Pulse 77 09/29/2023 1:28 PM EDT Temperature 36.6 ??C (97.9 ??F) 09/29/2023 1:28 PM ED T Respiratory Rate 20 09/29/2023 1:28 PM EDT Oxygen Saturation 99% 09/29/2023 1:28 PM EDT Inhaled Oxygen Concentration - - Weight 68.9 kg (151 lb 12.8 oz) 09/29/2023 1:28 PM EDT Height 163.8 cm (5' 4.49) 09/29/2023 1:28 PM ED T Body Mass Index 25.66 09/29/2023 1:28 PM EDT documented in this encounter Progress Notes * Dianne Jacob APRN - 09/29/2023 1:30 PM EDT Images from the original note were not included. [place] [address] [phone] Barb Bullard is being seen for the [...] 06.23.23. Briefly interrupted during an admission in [facility] for pyelonephritis. Resumed in 08/13/23 at 400mgdaily and well tolerated PET scan reviewed from 08/19/23 with excellent response to therapy. EKG at [facility] with Qtc 466 Plan: - Labs and toxicities assessed and acceptable for ongoing treatment. - Continue on adadrasib 400 mg daily - RTC in 6 weeks with PET, labs, and EKG. Continuing close follow up of QTC interval (most recent 487, mildly elevated but stable) Dianne Jacob APRN 09/29/2023 Medical Oncology & Hematology [facility] CC: Atiya Ramirez, ALESSANDRO HPI/Interval History/Subjective: Last seen 08/25/2023 Feeling fair today. Her most recent concern [...] Social History/Support Network: Home situation: Lives in [facility]. Lives with her daughter. 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 Tobacco use: 30 pk year hx quit 2014 Alcohol use: Does not drink Drug use: None Financial Distress: Medicare A/B has financial assistance through the hospitals so not worried about food Nursing Home or ability to pay for her cancer [...] of left lower lobe mass lung debulking ([id number]), the immunostain findings in the present case [...] of left lower lobe mass lung debulking ([id number]), the immunostain findings in the present case [...] function test 03/27/2021 No Known Allergies Medications 09/29/23 1334 Medication Sig Taking? adagrasib (Krazati) 200 mg tablet Take 400 mg by mouth daily. Yes lactobacillus with pectin 75 million cell -100 mg Capsule Take 1 capsule by mouth daily. Yes levothyroxine (Synthroid) 75 mcg tablet Take 1 tablet by mouth daily. Yes acetaminophen (Tylenol) 500 mg Tablet Take 1,000 mg by mouth every 8 hours as needed for Pain. Yes senna (Senokot) 8.6 mg Tablet Take 1 tablet by mouth daily as needed for Constipation. Yes traMADoL 25 mg Tablet Take 25 mg by mouth as needed. HYDROmorphone (Dilaudid) 2 mg tablet Take 1 tablet by mouth every 6 hours as needed for Pain (As needed for breakthrough pain). Patient not taking: Reported on 08/25/2023 prochlorperazine (Compazine) 10 mg tablet Take 1 tablet by mouth every 6 hours as needed for Nausea. Patient not taking: Reported on 08/25/2023 I reviewed the problem list, allergies, medications, [...] lb) Temp Readings from Last 3 Encounters: 09/29/23 36.6 ??C (97.9 ??F) (Temporal) 09/18/23 36.5 ??C (97.7 ??F) (Temporal) 08/26/23 36 ??C (96.8 ??F) (Temporal) BP Readings from Last 3 Encounters: 09/29/23 122/71 09/18/23 137/88 08/26/23 128/59 Pulse Readings from Last 3 Encounters: 09/29/23 77 09/18/23 75 08/26/23 87 Body surface area is 1.77 meters squared. Wt Readings from Last 3 Encounters: 09/29/23 [...] T4 1.03 Last 5 CBC Recent Labs 08/19/23 1020 [...] 3:30 PM EDT Office Visit Hematology/Oncology at [address] [phone] Chase Mckay MD [facility] DR HEMATOLOGY [place] [address] Scheduled Orders Name Type Priority Associated Diagnoses Orde r Schedule EKG 12 Lead ECG Routine High risk medication use Prolonged QT interval Expected: 11/03/2023, Expires: 12/30/2023 documented as of this encounter Results * NM PET CT Skull Base to Mid-thigh (11/03/2023 1:26 PM EDT) [employer] WORKSTATION ID [id number] [facility] Anatomical Region Laterality Modality Positron Emissio n [...] who have questions please contact the health intensive care anaesthetist that requested your imaging first. ? Electronically signed by: Ed Barajas MD, [facility] ([phone]), at 11/05/2023 11:29 AM Narrative 11/05/2023 11:29 AM EDT EXAMINATION: NM PET CT STANDARD SKULL BASE TO MID-THIGH CLINICAL HISTORY: NSCLC Metastatic non-small cell lung cancer subsequent treatment evaluation. Also history of bladder cancer. C34.32, Malignant neoplasm of lower lobe, left bronchus or lung - C79.10, Secondary malignant neoplasm of unspecified urinary organs. TECHNIQUE: Following IV injection of 17-hkzmrt-1-deoxyglucose (FDG) a standard uptake of approximately 60 [...] urinary organs. TECHNIQUE: Following IV injection of 56-yfealz-7-deoxyglucose (FDG) astandard uptake of approximately 60 minutes, [...] patients who have questions please contactthe health intensive care anaesthetist that requested your imaging first. Electronically signed by: Ed Barajas MD, [facility]([phone]), at 11/05/2023 11:29 AM Dianneisabella Jacob CASKET ASSEMBLER IMG PET ORDERABL ES * (ABNORMAL) Comprehensive metabolic panel (non-fasting) (11/03/2023 11:27 AM EDT) Glucose Lvl 99 65 - 199 mg/dL [facility] Comment:Diabetes: >=200 mg/d L plus symptoms BUN 25(H) 8 - 18 mg/dL [facility] Creatinine 2.03(H) 0.70 - 1.20 mg/dL [facility] Sodium 139 135 - 145 mmol/L [facility] Potassium 5.0 3.5 - 5.0 mmol/L [facility] Comment: Please note: ??Patients with WBC >100,000 may have falsely elevated Potassium levels. ??For accurate Potassium quantification in these patients send serum separator tube (gold top) for subsequent determinations. ??Contact the Clinical Chemistry Laboratory if there are any questions. Chloride 109(H) 98 - 107 mmol/L [facility] CO2 20(L) 22 - 31 mmol/L [facility] Anion Gap 10 5 - 15 mmol/L [facility] Calcium 9.4 8.5 - 10.5 mg/dL [facility] Total Protein 8.2(H) 6.1 - 8.0 g/dL [facility] Albumin 4.0 3.2 - 5.2 g/dL [facility] AST 10 0 - 30 unit/L [facility] ALT 7 0 - 30 unit/L [facility] Alk Phos 108(H) 35 - 105 unit/L [facility] Total Bilirubin 0.8 0.2 - 1.3 mg/dL [facility] Estimated GFR 26(L) >=60 mL/min/1. 73 m?? 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
--- OUTSIDE RECORDS SUMMARY | 2023-11-21 15:54 | XMS_ITS | Encounter Summary ---
Author Organization [facility] Address [facility] [place] [address] Care Team Providers Care Management Engineer Name Role Phone James Tavia Foster APRN Primary Care Provider Encounter Details Date Type Department Care Team (Latest Contact Info) Description 08/25/2023 Travel Social History Tobacco Use Types Packs/Day [...] PM EDT Office Visit Hematology/Oncology at [address] [phone] Chase Mckay MD [facility] DR HEMATOLOGY [place] [address] documented as of this encounter Visit Diagnoses Not on filedocumented in this encounter Care Teams Management Engineer Relationship Specialty Start Date End Date Tavia Ramirez [place] [place] [address] PCP - General Family Medicine 06/11/22 documented as of this encounter
--- OUTSIDE RECORDS SUMMARY | 2023-11-21 15:54 | XMS_ITS | Encounter Summary ---
Author Organization [facility] Address [facility] [place] [address] Care Team Providers Care Print Cutter Name Role Phone James Tavia Foster APRN Primary Care Provider [phone] Encounter Details Date Type Department Care Team (Latest Contact Info) Description 08/21/2023 Travel Social History Tobacco Use Types Packs/Day Years Used Date Smoking Tobacco: Former Cigarettes Q uit: 07/04/2014 Smokeless Tobacco: Never Alcohol Use Standard Drinks/Week Comments Not Currently 0 (1 standard drink = 0.6 oz pur e alcohol) [facility] Utilities Answer Date Recorded In the [...] 3:30 PM EDT Office Visit Hematology/Oncology at [address] [phone] Chase Mckay MD [facility] DR [place]ATOLOGY [place] [address] documented as of this encounter Visit Diagnoses Not on filedocumented in this encounter Care Teams Print Cutter Relationship Specialty Start Date End Date Tavia Ramirez [place] [address] [place] [address] PCP - General Family Medicine 06/11/22 documented as of this encounter
--- OUTSIDE RECORDS SUMMARY | 2023-11-21 15:54 | XMS_ITS | Encounter Summary ---
Author Organization [facility] Address [facility] [place] [address] Care Team Providers Care Trimmer And Borer Machine Operator Name Role Phone James Tavia Foster APRN Primary Care Provider [phone] Encounter Details Date Type Department Care Team (Latest Contact Info) Description 07/21/2023 Travel Social History Tobacco Use Types Packs/Day [...] slept in a fdc (including now)? No 03/27/2021 DH IPV Inpatient [...] 3:30 PM EDT Office Visit Hematology/Oncology at [address] [phone] Chase Mckay MD [facility] DR HEMATOLOGY [place] [address] documented as of this encounter Visit Diagnoses Not on filedocumented in this encounter Care Teams Trimmer And Borer Machine Operator Relationship Specialty Start Date End Date Tavia Ramirez APRN [address] [place] [address] PCP - General Family Medicine 06/11/22 documented as of this encounter
--- OUTSIDE RECORDS SUMMARY | 2023-11-21 15:55 | XMS_ITS | Encounter Summary ---
Author Organization [facility] Address [facility] [place] [address] Care Team Providers Care Exercise Physiologist Name Role Phone Tavia Ramirez APRN Primary Care Provider [phone] Reason for Visit * Reason Onset Date Comments New Medication Request 05/13/2023 Starting new med adagrasib Encounter Details Date Type Department Care Team (Late st Contact Info) Description 05/13/2023 Telephone Hematology/Oncology at [address] [phone] Pamella East RN New Medication Request (Starting new med adagrasib) Social History Tobacco Use Types Packs/Day Years [...] slept in a custodial (including now)? No 03/27/2021 Sex and Gender Information Value Date Recorded Sex Assigned at Not on file Gender Identity Not on file Sexual Orientation Not on file documented as of this encounter Miscellaneous Notes * Telephone Encounter - Pamella East RN - 05/13/2023 3:10 PM EST Oral Chemotherapy Follow-up Note 05/13/2023 Barb Bullard, 1950 Assessment of self-administration of oral chemotherapy is performed during office visit with patient. The patient: filled the prescription at [facility] [place] pharmacy and will start to take this medication on 05/14/23 (date). read back the name and strength of the oral chemotherapy from the label, including the instructionsfor use as follows: Take two pills by mouth twice a day was able to repeat directions for use in his/her own words and demonstrated understanding of the regimen, including safe handling of oral chemotherapy and its side effects. did not have further questions or problems regarding the oral chemotherapy. does not require further assistance in order to comply with oral chemotherapy. was reminded to call the oncology clinic with any concerns or questions 24 hours a day / 7 days a week and contact information was reviewed. Pt discussed with Dr. Lange, pembrolizumab will be held for now he will see her back in 3 months. documented in this encounter Plan of Treatment Upcoming Encounters Date Type Department Care Team (Late st Contact Info) Description 12/08/2023 3:30 PM EDT Office Visit Hematology/Oncology at [address] [phone] Chase Mckay MD [facility] [place] [address] documented as of this encounter Visit Diagnoses Not on filedocumented in this encounter Care Teams Exercise Physiologist Relationship Specialty Start Date End Date Tavia Ramirez APRN [address] [place] [address] PCP - General Family Medicine 06/11/22 documented as of this encounter
--- OUTSIDE RECORDS SUMMARY | 2023-11-21 15:55 | XMS_ITS | Encounter Summary ---
Author Organization [facility] Address [facility] [place] [address] Care Team Providers Care Senior Consumer Insights Consultant Name Role Phone James Tavia Foster APRN Primary Care Provider [phone] Encounter Details Date Type Department Care Team (Latest Contact Info) Description 05/05/2023 Travel Social History Tobacco Use Types Packs/Day [...] slept in a alf (including now)? No 03/27/2021 Sex and Gender Information Value Date Recorded Sex Assigned at Not on file Gender Identity Not on file Sexual Orientation Not on file documented as of this encounter Plan of Treatment Upcoming Encounters Date Type Department Care Team (Late st Contact Info) Description 12/08/2023 3:30 PM EDT Office Visit Hematology/Oncology at [address] [phone] Chase Mckay MD [facility] DR [place] [address] documented as of this encounter Visit Diagnoses Not on filedocumented in this encounter Care Teams Senior Consumer Insights Consultant Relationship Specialty Start Date End Date Tavia Ramirez [place] [address] PCP - General Family Medicine 06/11/22 documented as of this encounter
--- OUTSIDE RECORDS SUMMARY | 2023-11-21 15:55 | XMS_ITS | Encounter Summary ---
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 Once a week for 48 Occurrences starting 05/15/2023 until 05/15/2024 Comprehensive metabolic panel (non-fasting) Lab STAT 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 Once a week for 48 Occurrences starting 05/15/2023 until 05/15/2024 CBC (with Diff) Lab STAT 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
--- OUTSIDE RECORDS SUMMARY | 2023-11-21 15:55 | XMS_ITS | Encounter Summary ---
[place] [address] Care Team Providers Care Bar Gauger And Lubricator Tender Name Role Phone Tavia Ramirez APRN Primary Care Provider [phone] Reason for Referral * Diagnostic Test (Routine) - Closed Specialty Diagnoses / Procedures Referred By Contac t Referred To Contact Radiology Diagnoses Obstructive uropathy Procedures IR Nephrogram/Nephrostomy Tube Exchange Bilateral Alin Dillard MD [facility] DR INTERVENTIONAL [place] [address] [facility] [place] [address] Referral ID Status Reason Start Date Expiration Date V isits Requested Visits Authorized [id number] Closed Specialty Service Requested 04/25/2023 10/24/2024 1 1 Reason for Visit * Diagnostic Test (Routine) - Closed Specialty Diagnoses / Procedures Referred By Contac t Referred To Contact Radiology Diagnoses Obstructive uropathy Procedures IR Nephrogram/Nephrostomy Tube Exchange Bilateral Alin Dillard MD [facility] INTERVENTIONAL [place] [address] [facility] [place] [address] Referral ID Status Reason Start Date Expiration Date V isits Requested Visits Authorized [id number] Closed Specialty Service Requested 04/25/2023 10/24/2024 1 1 Encounter Details Date Type Department Care Team (Latest Contact Info) Description 06/19/2023 1:16 PM EST - 06/19/2023 11:59 PM EST Hospital Encounter Radiology at [facility] [place] [address] Alin Dillard MD [facility] DR INTERVENTIONAL [place] [address] Obstructive uropathy Discharge Disposition: Home Social History Tobacco Use [...] in a skilled nursing (including now)? No 03/27/2021 Sex and Gender Information Value Date Recorded Sex Assigned at Not on file Gender Identity Not on file Sexual Orientation Not on file documented as of this encounter Last Filed Vital Signs Vital Sign Reading Time Taken Comments Blood Pressure 110/60 06/19/2023 2:02 PM EST Pulse 81 06/19/2023 2:02 PM EST Temperature 36 ??C (96.8 ??F) 06/19/2023 2:02 PM EST Respiratory Rate 16 06/19/2023 2:02 PM EST Oxygen Saturation 96% 06/19/2023 2:02 PM EST Inhaled Oxygen Concentration - - Weight - - Height - - Body Mass Index - - documented in this encounter Discharge Instructions * Discharge Instructions* Nolvia Slater RN - 06/19/2023 2:49 PM EST Images from the original note were not included. [facility] Vascular and Interventional Radiology Discharge Instructions [...] connecting tubing from the drain. Put a secured entrance monitor on both the drain and the bag. [...] is during regular office hours, please call [phone]. If it is after regular office hours, or on weekends or holidays, please call [phone] and ask to speak to the Painting Department Supervisor formstone fitter for Interventional Radiology. You have received medication [...] Sig Dispensed Refills Start Date End Date prochlorperazine (Compazine) 10 mg tabletIndications:Prima ry malignant 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 Take 1 tablet by mouth every 6 hours as needed for Nausea. 15 tablet 05/13/2023 levothyroxine (Synthroid) 75 mcg tabletIndications:Metas tatic urothelial carcinoma Take 1 tablet by mouth daily. 30 tablet 11 02/12/2023 acetaminophen (Tylenol) 500 mg Tablet Take 1,000 mg by mouth every 8 hours as needed for Pain. senna (Senokot) 8.6 mg Tablet Take 1 tablet by mouth daily as needed for Constipation. ondansetron (Zofran) 4 mg tablet Take 4 mg by mouth every 8 hours as needed for Nausea. 06/24/2023 adagrasib (Krazati) 200 mg tablet Take 400 mg by mouth 2 times daily for 360 days. 120 tablet 11 05/07/2023 06/24/2023 traMADoL (Ultram) 50 mg TabletIndications:Metas tatic urothelial carcinoma Take 1 tablet by mouth every 6 hours as needed for Pain. 30 tablet 04/23/2022 08/10/2023 documented as of this encounter Progress Notes * Nolvia Slater RN - 06/19/2023 2:25 PM EST ANGIO NURSING DATABASE Name: Barb Bullard Date of : 1950 AGE: 72 y.o. Address: [address] [place] [phone] (home) Mobile: Telephone Information: Referring Provider: Alin Dillard REASON FOR VISIT: Order Questions Answers Where will study be performed? [facility] Radiology [120] Reason for exam and clinical history: chronic neph tubes for routine change Is the patient on anticoagulant / antiplatelet therapy ? 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 Onto table prone. Safety strap in place. Meds per protocol. Laboratory Results: Lab Results Component Value Date CREATININE 1.54 (H) 07/13/2021 Lab Results Component Value Date K 4.5 04/16/2021 Lab Results Component Value Date PLATELET 873 (H) 04/16/2021 documented in this encounter Plan of Treatment Upcoming Encounters Date Type Department Care Team (Late st Contact Info) Description 12/08/2023 3:30 PM EDT Office Visit Hematology/Oncology at [address] [phone] Chase Mckay MD [facility] HEMATOLOGY [place] [address] documented as of this encounter Procedures Procedure Name Priority Date/Time Associated Diagnosis Comments IR NEPHROGRAM/NEPHROST CAYLA TUBE EXCHANGE BILATERAL Routine 06/19/2023 3:08 PM EST Obstructive uropathy documented in this encounter Results * IR Nephrogram/Nephrostomy Tube Exchange Bilateral (06/19/2023 3:08 PM EST) Anatomical Region Laterality Modality X-Ray Angiograph y Impressions 06/19/2023 3:03 PM EST : Successful routine exchange of 10 Fr Bilateral percutaneous nephrostomy tubes. ?? I, Dr. De La Cruz, was present throughout the procedure. Narrative 06/19/2023 3:03 PM EST IR PROCEDURE REPORT : ??Bilateral Percutaneous nephrostomy check, exchange INDICATION: routine exchange of Bilateral PCN obstructive uropathy associated with metastatic bladder cancer TECHNIQUE: Spot image obtained. ??Contrast injected, spot images obtained. Left percutaneous nephrostomy catheter exchanged over guidewire for new 10 Fr nephrosotmy tube. Procedure repeated on Right. ??Not sutured per patient request. ??Patient tolerated the procedures well and there were no immediate complications. Contrast : 20 cc Omni. ??EBL: 0 cc FINDINGS: Bilateral percutaneous nephrostomy tubes, tips coiled in renal pelves, exchanged. ? Alin Dillard MD [facility] IR ORDERABLES documented in this encounter Visit Diagnoses Diagnosis Obstructive uropathy Urinary obstruction, unspecified documented in this encounter Administered Medications Inactive Administered Medications - up to 3 most recent administrations Medication Order MAR Action Action Date Dose Rate Site ciprofloxacin (Cipro) tablet 500 mg 500 mg, Oral, ONCE, 1 dose, On Nicolasa 06/19/23 at 1430, Angio/IR (Day of Procedure), Routine, Indication for (Active or Suspected): Prophylaxis Given 06/19/2023 2:23 PM EST 500 mg iohexoL (Omnipaque) (350 mg/mL) solution 1-400 mL 1-400 mL, Other, ONCE, 1 dose, On Nicolasa 06/19/23 at 1430, For intra-procedural use by proceduralist., Angio/IR (Intra-Procedure), Routine Given 06/19/2023 2:30 PM EST 25 mLs lidocaine (Glydo) 2 % gel 6 mL 6 mL, Topical (Top), EVERY 4 HOURS PRN, Starting on Nicolasa 06/19/23 at 1402, Until Nicolasa 06/19/23 at 1518, Pain, For use in Interventional Radiology (IR) only for procedure with direct provider supervision and verbal order., Angio/IR (Intra-Procedure), Routine Given 06/19/2023 2:50 PM EST 6 mLs documented in this encounter Care Teams Bar Gauger And Lubricator Tender Relationship Specialty Start Date End Date Tavia Ramirez, RETORT PRESS OPERATOR [address] [place] [address] PCP - General Family Medicine 06/11/22 documented as of this encounter
--- OUTSIDE RECORDS SUMMARY | 2023-11-21 15:55 | XMS_ITS | Encounter Summary ---
Author Organization [facility] [place] [address] Care Team Providers Care Senior Compensation Consultant Name Role Phone Tavia Ramirez Cristian FRANCOIS Primary Care Provider [phone] Reason for Visit * Reason Comments Prior Authorization Imani Encounter Details Date Type Department Care Team (Late st Contact Info) Description 05/06/2023 Specialty [place] [phone] Trevon cK, BOARD MEMBER Social History Tobacco Use Types Packs/Day Years [...] as of this encounter Progress Notes * Trevon Kc - 05/06/2023 9:34 AM EST [facility], Medication Prior Authorization Submission Patient: Barb Bullard Patient : 1950 Patient Address: [address] [place] [phone] (home) Medication Name: KRAZATI 200 MG TABLET Medication ID: Subscriber Insurance: [employer] Lending Subscriber Insurance Comment: Phone: [phone] Fax: Physician: LAURA CAPONE Physician Comment: Sent Via: [facility] Reid: [id number] Ref/Case/PA#: Medication Strength Frequency Requested: Take two tablets by mouth twice a day Qty/Day Supply: 120/30 New Start: New to Therapy Diagnosis & ICD-10 Code: NSCLC C34.32 Patient Notified: No Submission Notes: Blade Kc 05/06/23 9:35 AM * Trevon Kc - 05/06/2023 9:34 AM EST [facility], Prior Authorization Approval Medication Name: KRAZATI 200 MG TABLET Medication ID: Approval Dates: 05/06/2023 to 04/27/2024 Insurance requirements/notes: None Other Notes: None Case/Reference #: [id number] Approval notification Received via: CMM Copay: $11.20 Copay assistance: Other (Enter Comment) Copay Notes: PT must fill with [facility] because Krazati is a limited distribution drug - the prescription has already been sent there Insurance mandated Pharmacy: Fillable at [facility] Specialty Pharmacy: No Patient Notified: No Pharmacy staff will be reaching out to the patient to inform them of their medication's [facility]. If applicable, a pharmacist will speak with the patient to offer our specialty pharmacy services and to arrange delivery of their medication. Trevon Kc 05/06/23 10:58 AM documented in this encounter Plan of Treatment Upcoming Encounters Date Type Department Care Team (Late st Contact Info) Description 12/08/2023 3:30 PM EDT Office Visit Hematology/Oncology at [address] [phone] Laura Capone MD [facility] DR [place] [address] documented as of this encounter Visit Diagnoses Not on filedocumented in this encounter Care Teams Senior Compensation Consultant Relationship Specialty Start Date End Date Tavia Ramirez [place] [place] [address] PCP - General Family Medicine 06/11/22 documented as of this encounter
--- OUTSIDE RECORDS SUMMARY | 2023-11-21 15:55 | XMS_ITS | Encounter Summary ---
Author Organization [facility] Address [facility] [place] [address] Care Team Providers Care Safety Security Officer Name Role Phone James Tavia Foster APRN Primary Care Provider [phone] Encounter Details Date Type Department Care Team (Latest Contact Info) Description 05/09/2023 Travel Social History Tobacco Use Types Packs/Day [...] place to sleep or slept in a half-way (including now)? No 03/27/2021 Sex and Gender Information Value Date Recorded Sex Assigned at Not on file Gender Identity Not on file Sexual Orientation Not on file documented as of this encounter Plan of Treatment Upcoming Encounters Date Type Department Care Team (Late st Contact Info) Description 12/08/2023 3:30 PM EDT Office Visit Hematology/Oncology at [address] [phone] Chase Mckay MD [facility] DR HEMATOLOG[place] [address] documented as of this encounter Visit Diagnoses Not on filedocumented in this encounter Care Teams Safety Security Officer Relationship Specialty Start Date End Date Tavia Ramirez [place] [address] [place] [address] PCP - General Family Medicine 06/11/22 documented as of this encounter
--- OUTSIDE RECORDS SUMMARY | 2023-11-21 15:55 | XMS_ITS | Encounter Summary ---
Author Organization [facility] Address [facility] [place] [address] Care Team Providers Care Substation Supervisor Name Role Phone Tavia Ramirez APRN Primary Care Provider Encounter Details Date Type Department Care Team (Late st Contact Info) Description 06/24/2023 Orders Only Hematology/Oncology at [address] [phone] Dianne Jacob APRN [address] [place] [address] DR HEMATOLOGY AND ONCOLOGY [place], [place] [id number] 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 Social History Tobacco Use Types Packs/Day Years [...] place to sleep or slept in a group home (including now)? No 03/27/2021 Sex and Gender Information Value Date Recorded Sex Assigned at Not on file Gender Identity Not on file Sexual Orientation Not on file documented as of this encounter Plan of Treatment Upcoming Encounters Date Type Department Care Team (Late st Contact Info) Description 12/08/2023 3:30 PM EDT Office Visit Hematology/Oncology at [address] [phone] Chase Mckay MD [facility] DR [place]AT[place] [address] documented as of this encounter Visit Diagnoses Diagnosis 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 Malignant neoplasm of lower lobe, bronchus, or lung documented in this encounter Care Teams Substation Supervisor Relationship Specialty Start Date End Date Tavia Ramirez APRN [address] [place] [address] PCP - General Family Medicine 06/11/22 documented as of this encounter
--- OUTSIDE RECORDS SUMMARY | 2023-11-21 15:55 | XMS_ITS | Encounter Summary ---
Author Organization [facility] Address [facility] [place] [address] Care Team Providers Care Mis Manager Name Role Phone James Tavia Foster APRN Primary Care Provider [phone] Encounter Details Date Type Department Care Team (Late st Contact Info) Description 06/23/2023 3:00 PM EST Office Visit Hematology/Oncology at [address] [phone] Chase Mckay MD [facility] [address] [place] [address] Dianne Jacob APRN [address] [place] [address] DR HEMATOLOGY AND ONCOLOGY [place], [place] [id number] Primary malignant neoplasm of left lower lobe [...] slept in a [facility] (including now)? No 03/27/2021 Sex and Gender Information Value Date Recorded Sex Assigned at Not on file Gender Identity Not on file Sexual Orientation Not on file documented as of this encounter Last Filed Vital Signs Vital Sign Reading Time Taken Comments Blood Pressure 136/64 06/23/2023 2:58 PM EST Pulse 89 06/23/2023 2:58 PM EST Temperature 36.4 ??C (97.5 ??F) 06/23/2023 2:58 PM ES T Respiratory Rate 20 06/23/2023 2:58 PM EST Oxygen Saturation 96% 06/23/2023 2:58 PM EST Inhaled Oxygen Concentration - - Weight 71.5 kg (157 lb 9.6 oz) 06/23/2023 2:58 P M EST Height 163.8 cm (5' 4.49) 06/23/2023 2:58 PM ES T Body Mass Index 26.64 06/23/2023 2:58 PM EST documented in this encounter Progress Notes * Dianne Jacob APRN - 06/23/2023 3:00 PM EST Images from the original note were not included[place] [address] [phone] Barb Bullard is being seen for the evaluation of lung cancer. Assessment & Plan: Barb Bullard is a 72 y.o. female patient with limited past medical [...] though these were at a reasonable rate. She began therapy with Adagrasib in Mid-April 2023 at 400 mg BID. Plan: She tolerated adagrasib 400 BID poorly with significant nausea and diarrhea. Baseline EKG wasWNL - Most recent QTC is wnl, 428. -Dr. Priest is planning to hold the pembrolizumab for now and will see her again in August/September timeframe - We will plan to resume Adagrasib at a reduced dose of 400mg Daily with close monitoring. - She was given ondansetron in the hospital and we discussed avoiding this due to potential for QTCprolongation. If her compazine is ineffective, we can discuss alternative options for nausea control. - RTC in 4 weeks with CBC, CMP, Mg, TSH, Free T4 and EKG Dianne Jacob APRN 06/23/2023 Thoracic Oncology [facility] CC: Jose Patel MD HPI/Interval History/Subjective: Last seen 06/09/2023 Having some dental issues - Had an extraction last week (week of 06/16) Accompanied by her daughter Daisha. Still fatigued. Feeling a bit sore, had her nephrostomy tubes replaced last week. Breathing has been okay, SOB with exertion or anxiety. Activity takes more out of her than it used it. No new cough. No fevers. No diarrhea, a couple episodes of vomiting that she related to drinking too quickly. Appetite is improving, weight is trending down however. Nothing appeals to me No pains Follows with [facility]. Has received [employer] J&J and Moderna booster . Social History/Support Network: Home situation: Lives in [facility]. Lives with her daughter. 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 Tobacco use: 30 pk year hx quit 2014 Alcohol use: Does not drink Drug use: None Financial Distress: Medicare A/B has financial assistance through the hospitals so not worried about food Half-Way or ability to pay for her cancer [...] of left lower lobe mass lung debulking ([id number]), the immunostain findings in the present case [...] of left lower lobe mass lung debulking ([id number]), the immunostain findings in the present case are compatible with lung primary. Molecular Data: 04.04.21 Lung biopsy KRAS p.G12C c.34G>T No variants reported. TP53 p.H179Y c.535C>T 04.09.23 Guardant 360 12/17/2022 2:23 PM 01/07/2023 10:19 AM 01/28/2023 [...] Patient Active Problem List Diagnosis Date Noted Secondary malignant neoplasm of pleura 05/03/2023 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 08/04/2021 Anemia 04/18/2021 Bilateral hydronephrosis 04/18/2021 Folate deficiency 04/18/2021 Lung mass 04/18/2021 Obstructive uropathy 04/18/2021 Metastatic urothelial carcinoma 03/27/2021 Abnormal thyroid function test 03/27/2021 No Known Allergies Medications 06/23/23 1503 Medication Sig Taking? ondansetron (Zofran) 4 mg tablet Take 4 mg by mouth every 8 hours as needed for Nausea. Yes prochlorperazine (Compazine) 10 mg tablet Take 1 tablet by mouth every 6 hours as needed for Nausea. Yes levothyroxine (Synthroid) 75 mcg tablet Take 1 tablet by mouth daily. Yes traMADoL (Ultram) 50 mg Tablet Take 1 tablet by mouth every 6 hours as needed for Pain. Yes acetaminophen (Tylenol) 500 mg Tablet Take 1,000 mg by mouth every 8 hours as needed for Pain. Yes senna (Senokot) 8.6 mg Tablet Take by mouth daily. Yes adagrasib (Krazati) 200 mg tablet Take 400 mg by mouth 2 times daily for 360 days. Patient not taking: Reported on 05/13/2023 I reviewed the problem list, allergies, medications, past medical history, social history and family history within the EPIC encounter. Pertinent details are noted above. Pertinent positives and negative from the Review of Systems are as summarized above in the HPI. Physical Exam: Wt Readings from Last 3 Encounters: 06/23/23 71.5 kg (157 lb 9.6 oz) 06/09/23 72.8 kg (160 lb 8 oz) 05/13/23 73.5 kg (162 lb) Temp Readings from Last 3 Encounters: 06/23/23 36.4 ??C (97.5 ??F) (Temporal) 06/19/23 36 ??C (96.8 ??F) (Temporal) 06/09/23 36 ??C (96.8 ??F) (Temporal) BP Readings from Last 3 Encounters: 06/23/23 136/64 06/19/23 110/60 06/09/23 110/66 Pulse Readings from Last 3 Encounters: 06/23/23 89 06/19/23 81 06/09/23 93 Body surface area is 1.8 meters squared. Wt Readings from Last 3 Encounters: 06/23/23 71.5 kg (157 lb 9.6 oz) 06/09/23 72.8 kg (160 lb 8 oz) 05/13/23 73.5 kg (162 lb) KPS Score ECOG Grade Definition 90-100 [...] Judgment: Judgment normal. Review of Laboratory Data: 2.. WBC 6.63, H/H 11.2/35.8, plt 531, ANC [...] alk phos 169 albumin 2.9 improved from 2.7 Review of Imaging Data: 4.8.22 PET scan Review of Pathology Data: No new data documented in this encounter Plan of Treatment Upcoming Encounters Date Type Department Care Team (Late st Contact Info) Description 12/08/2023 3:30 PM EDT Office Visit Hematology/Oncology at [address] [phone] Chase Mckay MD [facility] DR [place] [address] documented as of this encounter Visit Diagnoses Diagnosis 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 Malignant neoplasm of lower lobe, bronchus, or lung Secondary malignant 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 Care Teams Mis Manager Relationship Specialty Start Date End Date Tavia Ramirez [place] [address] [place] [address] PCP - General Family Medicine 06/11/22 documented as of this encounter
--- OUTSIDE RECORDS SUMMARY | 2023-11-21 15:55 | XMS_ITS | Encounter Summary ---
Author Organization [facility] Address [facility] [place] [address] Care Team Providers Care Health Services Administrator Name Role Phone James Tavia Foster APRN Primary Care Provider [phone] Encounter Details Date Type Department Care Team (Latest Contact Info) Description 06/23/2023 Travel Social History Tobacco Use Types Packs/Day [...] in a long-term (including now)? No 03/27/2021 Sex and Gender Information Value Date Recorded Sex Assigned at Not on file Gender Identity Not on file Sexual Orientation Not on file documented as of this encounter Plan of Treatment Upcoming Encounters Date Type Department Care Team (Late st Contact Info) Description 12/08/2023 3:30 PM EDT Office Visit Hematology/Oncology at [address] [phone] Chase Mckay MD [facility] DR [place] [address] documented as of this encounter Visit Diagnoses Not on filedocumented in this encounter Care Teams Health Services Administrator Relationship Specialty Start Date End Date Tavia Ramirez [place] [place] [address] PCP - General Family Medicine 06/11/22 documented as of this encounter
--- OUTSIDE RECORDS SUMMARY | 2023-11-21 15:55 | XMS_ITS | Encounter Summary ---
Author Organization [facility] Address [facility] [place] [address] Care Team Providers Care Correctional Counselor/Case Manager Name Role Phone Tavia Ramirez ALESSANDRO Primary Care Provider [phone] Encounter Details Date Type Department Care Team (Late st Contact Info) Description 05/05/2023 10:30 AM EST Office Visit Hematology/Oncology at [address] [phone] Chase Mckay MD [facility] DR [place] [address] 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; Secondary malignant neoplasm of pleura; High risk medication use Social History Tobacco Use Types Packs/Day Years [...] slept in a halfway (including now)? No 03/27/2021 Sex and Gender Information Value Date Recorded Sex Assigned at Not on file Gender Identity Not on file Sexual Orientation Not on file documented as of this encounter Last Filed Vital Signs Vital Sign Reading Time Taken Comments Blood Pressure 150/85 05/05/2023 11:00 AM EST Pulse 76 05/05/2023 11:00 AM EST Temperature 36.1 ??C (97 ??F) 05/05/2023 11:00 AM EST Respiratory Rate 18 05/05/2023 11:00 AM EST Oxygen Saturation 97% 05/05/2023 11:00 AM EST Inhaled Oxygen Concentration - - Weight 73.8 kg (162 lb 9.6 oz) 05/05/2023 11:00 AM EST Height 163.8 cm (5' 4.49) 05/05/2023 11:[address] Body Mass Index 27.49 05/05/2023 11:00 AM EST documented in this encounter Progress Notes * Chase Mckay MD - 05/05/2023 10:30 AM EST Images from the original note were not included[place] [address] [phone] Barb Bullard is being seen for the [...] improvement and radiographic response. Most recent imaging personally reviewed and it does appear that she has progression of her lung cancer with and increasing adenopathy and new bilateral pleural implants seen on the 03/07/2023 PET scan. 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 Discussed that I would therefore recommend treating the lung cancer with an adagrasib 400 mg twice daily based on the Phase II Trial (OMERO-7) that was just presented at [facility] in Fall 2022 and which demonstrated efficacy and safety of concomitant use with pembrolizumab. There is still risk for pneumonitis and hepatitis though these were at a reasonable rate. Discussed this plan with Everette Juan Miguel and she was agreeable. Discussed the case with Dr. Lange previously as well. At this point we want to continue the pembrolizumab given its good control of her bladder cancer but with the progression of her lung cancer would want to consider liquid biopsy to determine whether the K-xiomara G12 C mutation is still present and if so consider targeted therapy with either sotorasib or adagrasib for th will confer with pharmacy to determine whether there are any potential interactions or concerns. Plan: -Baseline EKG to determine Qtc - Adagrasib 400mg BID -she was concerned about cost and so we may need to engage the medication assistance program -She has follow-up with Dr. Lange next week and they will determine whether or not they will continue the pembrolizumab q for her bladder cancer 3weeks Chase Mckay MD, MS 05/03/2023 Thoracic Oncology [facility] CC: Jose Patel MD HPI/Interval History/Subjective: Last seen 04/01/2023 Accompanied by her daughter Daisha. Had to have right tube urgently repalced at [facility] [place] last week. Now doing better No side effecs from the pembrolizumab other midl rash changes in breathing, new cough, diarrhea. Eating is fine No weight loss Energy is decent. No pains Follows with [facility]. Eats fairly well. Weight generally stable at this point and has not continued to lose weight after losing ~40 lbs after summer. Can go up a flight of stairs-not limited by the breathing No fevers infections. Has received COVID J&J and Moderna booster . Social History/Support Network: Home situation: Lives in [facility]. Lives with her daughter. 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 Tobacco use: 30 pk year hx quit 2014 Alcohol use: Does not drink Drug use: None Financial Distress: Medicare A/B has financial assistance through the hospitals so not worried about food Fdc or ability to pay for her cancer [...] of left lower lobe mass lung debulking ([id number]), the immunostain findings in the present case [...] of left lower lobe mass lung debulking ([id number]), the immunostain findings in the present case [...] Patient Active Problem List Diagnosis Date Noted 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 08/04/2021 Anemia 04/18/2021 Bilateral hydronephrosis 04/18/2021 Folate deficiency 04/18/2021 Lung mass 04/18/2021 Obstructive uropathy 04/18/2021 Metastatic urothelial carcinoma 03/27/2021 Abnormal thyroid function test 03/27/2021 No Known Allergies Medications 04/22/23 1143 Medication Sig Taking? levothyroxine (Synthroid) 75 mcg tablet Take 1 tablet by mouth daily. traMADoL (Ultram) 50 mg Tablet Take 1 tablet by mouth every 6 hours as needed for Pain. Patient not taking: Reported on 01/28/2023 acetaminophen (Tylenol) 500 mg Tablet Take 1,000 mg by mouth every 8 hours as needed for Pain. senna (Senokot) 8.6 mg Tablet Take by mouth daily. prochlorperazine (Compazine) 10 mg Tablet Take 1 tablet by mouth every 6 hours as needed for Nausea. Patient not taking: Reported on 04/22/2023 I reviewed the problem list, allergies, medications, past medical history, social history and family history within the EPIC encounter. Pertinent details are noted above. Pertinent positives and negative from the Review of Systems are as summarized above in the HPI. Physical Exam: Wt Readings from Last 3 Encounters: 04/22/23 73 kg (161 lb) 04/07/23 72.6 kg (160 lb) 04/01/23 73 kg (161 lb) Temp Readings from Last 3 Encounters: 04/25/23 36.2 ??C (97.2 ??F) (Temporal) 04/22/23 36 ??C (96.8 ??F) (Temporal) 04/07/23 37.2 ??C (98.9 ??F) (Temporal) BP Readings from Last 3 Encounters: 04/25/23 136/89 04/22/23 111/69 04/07/23 146/90 Pulse Readings from Last 3 Encounters: 04/25/23 77 04/22/23 79 04/07/23 84 There is no height or weight on file to calculate BSA. Wt Readings from Last 3 Encounters: 04/22/23 73 kg (161 lb) 04/07/23 72.6 kg (160 lb) 04/01/23 73 kg (161 lb) KPS Score ECOG Grade Definition 90-100 [...] Judgment: Judgment normal. Review of Laboratory Data: No results found for this or any previous visit (from the past 72 hour(s)). Review of Imaging Data: 08.03.21 PET scan Review of Pathology Data: I personally reviewed the reports of the pathology as detailed in the oncology overview above. 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 High risk medication use Expected: 05/19/2023 (Approximate), Expires: 11/18/2023 documented as of this encounter Visit Diagnoses Diagnosis 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 Malignant neoplasm of lower lobe, bronchus, or lung Secondary malignant neoplasm of pleura High risk medication use Encounter for long-term (current) use of other medications documented in this encounter Care Teams Correctional Counselor/Case Manager Relationship Specialty Start Date End Date Tavia Ramirez APRN [facility] [place] [address] PCP - General Family Medicine 06/11/22 documented as of this encounter
--- OUTSIDE RECORDS SUMMARY | 2023-11-21 15:55 | XMS_ITS | Encounter Summary ---
Author Organization [facility] Address [facility] [place] [address] Care Team Providers Care Addiction Psychiatrist Name Role Phone James Tavia Foster APRN Primary Care Provider [phone] Encounter Details Date Type Department Care Team (Late st Contact Info) Description 06/09/2023 1:30 PM EST Office Visit Hematology/Oncology at [address] [phone] Chase Mckay MD [facility] DR [place] [address] Dianne Jacob APRN [address] [place] [address] DR HEMATOLOGY AND ONCOLOGY [place], [place] [phone] Primary malignant neoplasm of left lower lobe [...] in a senior living (including now)? No 03/27/2021 Sex and Gender Information Value Date Recorded Sex Assigned at Not on file Gender Identity Not on file Sexual Orientation Not on file documented as of this encounter Last Filed Vital Signs Vital Sign Reading Time Taken Comments Blood Pressure 110/66 06/09/2023 1:11 PM EST Pulse 93 06/09/2023 1:11 PM EST Temperature 36 ??C (96.8 ??F) 06/09/2023 1:11 PM EST Respiratory Rate 20 06/09/2023 1:11 PM EST Oxygen Saturation 97% 06/09/2023 1:11 PM EST Inhaled Oxygen Concentration - - Weight 72.8 kg (160 lb 8 oz) 06/09/2023 1:11 PM EST Height 163.8 cm (5' 4.49) 06/09/2023 1:11 PM ES T Body Mass Index 27.13 06/09/2023 1:11 PM EST documented in this encounter Progress Notes * Chase Mckay MD - 06/09/2023 1:30 PM EST Images from the original note were not included. [place] [address] [phone] Barb Bullard is being seen for the [...] Trial (OMERO-7) that was just presented at [facility] in Fall 2022 and which demonstrated efficacy and safety of concomitant use with pembrolizumab. There is still risk for pneumonitis and hepatitis though these were at a reasonable rate. Discussed this plan with Ms. Bullard and she was agreeable. Discussed the case [...] pembrolizumab q for her bladder cancer 3weeks Labs, triage next Friday and then if doing ok can resume at 400mg daily and hen see her with labs the following Friday Chase Mckay MD, MS 06/09/2023 Thoracic Oncology [facility] CC: Jose Patel MD HPI/Interval History/Subjective: Last seen 05/13/2023 Having some detanl issues- Accompanied by her daughter Daisha. Had issues with potassium being really Still fatigued Independnet in her ADLs now but a week ago it was a struggle and had care comig in No fevers. Urinary tubes are working ok- due to be exchanged within a couple weeks- does not Had to have right [place] [facility] [place] [place]. Now doing [...] Social History/Support Network: Home situation: Lives in [facility]. Lives with her daughter. 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 Tobacco use: 30 pk year hx quit [...] of left lower lobe mass lung debulking ([id number]), the immunostain findings in the present case are compatible with lung primary. 21 L1 Immunohistochemistry Study Tissue: Lung, left lower [...] are consistent with a lung primary adenocarcinoma. 12. DISCUSSION Lymph node, station 11R (EBUS-guided FNA): [...] of left lower lobe mass lung debulking ([id number]), the immunostain findings in the present case [...] function test 03/27/2021 No Known Allergies Medications 06/09/23 1322 Medication Sig Taking? prochlorperazine (Compazine) 10 mg tablet Take 1 [...] mg Tablet Take by mouth daily. Yes ondansetron (Zofran) 4 mg tablet Take 4 mg by mouth every 8 hours as needed for Nausea. adagrasib (Krazati) 200 mg tablet Take 400 [...] Exam: Wt Readings from Last 3 Encounters: 06/09/23 72.8 kg (160 lb 8 oz) 05/13/23 73.5 kg (162 lb) 05/05/23 73.8 kg (162 lb 9.6 oz) Temp Readings from Last 3 Encounters: 06/09/23 36 ??C (96.8 ??F) (Temporal) 05/13/23 36.2 ??C (97.2 ??F) (Temporal) 05/05/23 36.1 ??C (97 ??F) (Temporal) BP Readings from Last 3 Encounters: 06/09/23 110/66 05/13/23 134/64 05/05/23 150/85 Pulse Readings from Last 3 Encounters: 06/09/23 93 05/13/23 81 05/05/23 76 Body surface area is 1.82 meters squared. Wt Readings from Last 3 Encounters: 06/09/23 72.8 kg (160 lb 8 oz) 05/13/23 73.5 kg (162 lb) 05/05/23 73.8 kg (162 lb 9.6 oz) KPS Score ECOG Grade [...] previous visit (from the past 72 hour(s)). 06/09/2023 White blood cell count 11.48 hemoglobin [...] 4.8.22 PET scan Review of Pathology Data: I personally reviewed the reports of the pathology as detailed in the oncology overview above. documented in this encounter Plan of Treatment Upcoming Encounters Date Type Department Care Team (Late st Contact Info) Description 12/08/2023 3:30 PM EDT Office Visit Hematology/Oncology at [address] [phone] Chase Mckay MD [facility] DR [place] [address] documented as of this encounter Visit Diagnoses Diagnosis 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 Malignant neoplasm of lower lobe, bronchus, or lung documented in this encounter Care Teams Addiction Psychiatrist Relationship Specialty Start Date End Date Tavia Ramirez APRN [address] [place] [address] [place] [address] PCP - General Family Medicine 06/11/22 documented as of this encounter
--- OUTSIDE RECORDS SUMMARY | 2023-11-21 15:55 | XMS_ITS | Encounter Summary ---
Author Organization [facility] [place] [address] Care Team Providers Care Air Carrier Inspector Name Role Phone Tavia Ramirez APRN Primary Care Provider [phone] Reason for Visit * Reason Onset Date Comments New Medication Request 05/05/2023 Encounter Details Date Type Department Care Team (Late st Contact Info) Description 05/05/2023 Telephone Hematology/Oncology at [address] [phone] Leora Roper, RN New Medication Request Social History Tobacco Use Types Packs/Day Years [...] slept in a [facility] (including now)? No 03/27/2021 Sex and Gender Information Value Date Recorded Sex Assigned at Not on file Gender Identity Not on file Sexual Orientation Not on file documented as of this encounter Miscellaneous Notes * Telephone Encounter - Leora Roper RN - 05/05/2023 2:19 PM EST Oral Chemotherapy Check Note 05/05/2023 Barb Bullard, 1950 Prescriptions for oral chemotherapy were reviewed as follows: Oral Chemotherapy Order adagrasib (Krazati) 200 mg tablet: Order details: Dose: 400mg Route: oral Quantity to be dispensed #: 60tabs Number of refills: 11 Instructions: Take 400 mg by mouth 2 times daily for 360 days. Cycle number and length: ongoing Start date: when drug arrives Plan of care compared to information in the medical record, including note from provider on 05/05/23. The prescription was found To be complete and accurate. It was e-prescribed to specialty pharmacy. documented in this encounter Plan of Treatment Upcoming Encounters Date Type Department Care Team (Late st Contact Info) Description 12/08/2023 3:30 PM EDT Office Visit Hematology/Oncology at [address] [phone] Chase Mckay MD [facility] [place]ATOLOG[place] [address] documented as of this encounter Visit Diagnoses Not on filedocumented in this encounter Care Teams Air Carrier Inspector Relationship Specialty Start Date End Date Tavia Ramirez APRN [facility] [place] [address] PCP - General Family Medicine 06/11/22 documented as of this encounter
--- OUTSIDE RECORDS SUMMARY | 2023-11-21 15:55 | XMS_ITS | Encounter Summary ---
Author Organization [facility] Address [facility] [place] [address] Care Team Providers Care Loom Starter Name Role Phone James Tavia Foster APRN Primary Care Provider [phone] Encounter Details Date Type Department Care Team (Latest Contact Info) Description 06/19/2023 Travel Social History Tobacco Use Types Packs/Day [...] place to sleep or slept in a chcf (including now)? No 03/27/2021 Sex and Gender Information Value Date Recorded Sex Assigned at Not on file Gender Identity Not on file Sexual Orientation Not on file documented as of this encounter Plan of Treatment Upcoming Encounters Date Type Department Care Team (Late st Contact Info) Description 12/08/2023 3:30 PM EDT Office Visit Hematology/Oncology at [address] [phone] Chase Mkcay MD [facility] DR HEMATOLOGY [place] [address] documented as of this encounter Visit Diagnoses Not on filedocumented in this encounter Care Teams Loom Starter Relationship Specialty Start Date End Date Tavia Ramirez APR[place] [address] PCP - General Family Medicine 06/11/22 documented as of this encounter
--- OUTSIDE RECORDS SUMMARY | 2023-11-21 15:55 | XMS_ITS | Encounter Summary ---
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 Procedures NM PET CT Skull Base to Mid-thigh Chase Mckay MD [facility] DR [place] [address] [place] [address] Referral ID Status Reason Start Date Expiration Date V isits Requested Visits Authorized [id number] Closed Specialty Service Requested 07/21/2023 01/20/2025 1 1 Encounter Details Date Type Department Care Team (Late st Contact Info) Description 07/21/2023 2:30 PM EDT Office Visit Hematology/Oncology at [address] [phone] Chase Mckay MD [facility] DR [place] [address] Dianne Jacob APRN [address] [place] [address] DR HEMATOLOGY AND ONCOLOGY [place], [place] [id number] Primary malignant neoplasm of left lower lobe [...] place to sleep or slept in a jail (including now)? No 03/27/2021 DH IPV Inpatient [...] Sign Reading Time Taken Comments Blood Pressure 115/66 07/21/2023 2:44 PM EDT Pulse 93 07/21/2023 2:44 PM EDT Temperature 35.9 ??C (96.7 ??F) 07/21/2023 2:44 PM ED T Respiratory Rate 18 07/21/2023 2:44 PM EDT Oxygen Saturation 97% 07/21/2023 2:44 PM EDT Inhaled Oxygen Concentration - - Weight 71 kg (156 lb 9.6 oz) 07/21/2023 2:44 PM EDT Height 163.8 cm (5' 4.49) 07/21/2023 2:44 PM ED T Body Mass Index 26.48 07/21/2023 2:44 PM EDT documented in this encounter Progress Notes * Chase Mckay MD - 07/21/2023 2:30 PM EDT Images from the original note were not included. Thoracic Oncology [place] [phone] Barb Bullard is being seen for the evaluation of lung cancer. Assessment & Plan: Barb Bullard is a 73 y.o. female patient with limited past medical history (with limited medical care through the years) diagnosed with a metastatic bladder cancer in the fall as well as an adenocarcinoma of the [...] Trial (OMERO-7) that was [facility] and which demonstrated efficacy [...] held and resumed at a daily dose 2.26.24. She seems to be doing much better at the reduced dose. Labs and toxicities assessed and acceptable for ongoing treatment. ECG from 07/15 personally reviewed which shows normal sinus rhythm without QTcprolongation Plan: -Continue on aggressive 400 mg daily -Periodic percutaneous nephrostomy tube exchanges through interventional radiology at [facility] -Will plan for restaging with PET scan in about 4 weeks and then follow-up with labs shortly thereafter Chase Mckay MD, MS 07/21/2023 Medical Oncology & Hematology [facility]: Atiya Patel MD HPI/Interval History/Subjective: Last seen 06/09/2023 Was admitted last week due to need to b/l PCN chuck replacement due to concern for obstruction. Replaced on 07/09/23. Was given 7 day course course of bactrim which she completed.. Feels much better than last week. Taking the 400mg ONCE a day and this has been much more tolerable. No significant side effects Bowels moving but no diarrhea. No nausea. No palpitations No other infections Food is more appealing of late. No pains. Follows with [facility]. Has received COVID J&J and Moderna booster . Social History/Support Network: Home situation: Lives in [facility]. Lives with her daughter. 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 Tobacco use: 30 pk year hx quit 2014 Alcohol use: Does not drink Drug use: None Financial Distress: Medicare A/B has financial assistance through the hospitals so not worried about food Custodial or ability to pay for her cancer [...] and hilar adenopathy. 4. Exam otherwise stable 11.10.23 11.10.23 1. Stable FDG avid left lower lobe [...] of left lower lobe mass lung debulking ([id number]), the immunostain findings in the present case [...] of left lower lobe mass lung debulking ([id number]), the immunostain findings in the present case are compatible with lung primary. Molecular Data: 04.04.21 Lung biopsy KRAS p.G12C c.34G>T No variants reported. TP53 p.H179Y c.535C>T 04.09.23 Guardant 360 05.10.23 Started adagrasib 400mg BID. 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 prochlorperazine (Compazine) 10 mg [...] mg Tablet Take by mouth daily. Yes I reviewed the problem list, allergies, medications, past medical history, social history and family history within the EPIC encounter. Pertinent details are noted above. Pertinent positives and negative from the Review of Systems are as summarized above in the HPI. Physical Exam: Wt Readings from Last 3 Encounters: 07/21/23 71 kg (156 lb 9.6 oz) 07/09/23 70.8 kg (156 lb) 06/23/23 71.5 kg (157 lb 9.6 oz) Temp Readings from Last 3 Encounters: 07/21/23 35.9 ??C (96.7 ??F) (Temporal) 07/10/23 36.6 ??C (97.9 ??F) (Oral) 06/23/23 36.4 ??C (97.5 ??F) (Temporal) BP Readings from Last 3 Encounters: 07/21/23 115/66 07/10/23 121/64 06/23/23 136/64 Pulse Readings from Last 3 Encounters: 07/21/23 93 07/10/23 85 06/23/23 89 Body surface area is 1.8 meters squared. Wt Readings from Last 3 Encounters: 07/21/23 71 kg (156 lb 9.6 oz) 07/09/23 70.8 kg (156 lb) 06/23/23 71.5 kg (157 lb 9.6 oz) KPS Score ECOG Grade [...] Judgment: Judgment normal. Review of Laboratory Data: 07.21.23 White blood cell count 8.47 hemoglobin 11.5 [...] phos 169 albumin 2.9 improved from 2. Review of Imaging Data: 4.8.22 PET scan Review of Pathology Data: No new data documented in this encounter Plan of Treatment Upcoming Encounters Date Type Department Care Team (Late st Contact Info) Description 12/08/2023 3:30 PM EDT Office Visit Hematology/Oncology at [address] [phone] Chase Mckay MD [facility] DR [place] [address] documented as of this encounter Results * NM PET CT Skull Base to Mid-thigh (08/19/2023 1:07 PM EDT) WORKSTATION ID [id number] RAD Anatomical Region Laterality Modality Positron Emissio [...] who have questions please contact the health senior caregiver that requested your imaging first. ? Narrative [...] of pleura TECHNIQUE: Following IV injection of 86-hzlyhl-8-deoxyglucose (FDG) a standard uptake of approximately 60 [...] of pleura TECHNIQUE: Following IV injection of 37-pjbdmg-9-deoxyglucose (FDG) astandard uptake of approximately 60 minutes, [...] patients who have questions please contactthe health senior caregiver that requested your imaging first. Electronically signed by: Chet Bowie [facility] ([phone]),at 08/21/2023 9:14 AM Chase Mckay MD IMG PET ORDERABLES * Magnesium (08/19/2023 10:20 AM EDT) Magnesium 0.94 0.69 - 1.07 mmol/L [facility] Blood 08/19/2023 10:2 0 AM EDT 08/19/2023 10:45 AM EDT Narrative Resulting Agency Comment Spec In Lab Chase Mckay MD CHEMISTRY ORDERABLES [facility] [place] [place] [address] * (ABNORMAL) Comprehensive metabolic panel (non-fasting) (08/19/2023 10:20 AM EDT) Glucose Lvl 92 65 - 199 mg/dL [facility] Comment:Diabetes: >=200 mg/d L plus symptoms BUN 19(H) 8 - 18 mg/dL [facility] Creatinine 1.74(H) 0.70 - 1.20 mg/dL [facility] Sodium 141 135 - 145 mmol/L [facility] Potassium 4.1 3.5 - 5.0 mmol/L [facility] Comment: Please note: ??Patients with WBC >100,000 may have falsely elevated Potassium levels. ??For accurate Potassium quantification in these patients send serum separator tube (gold top) for subsequent determinations. ??Contact the Clinical Chemistry Laboratory if there are any questions. Chloride 108(H) 98 - 107 mmol/L [facility] CO2 20(L) 22 - 31 mmol/L [facility] Anion Gap 13 5 - 15 mmol/L [facility] Calcium 9.0 8.5 - 10.5 mg/dL [facility] Total Protein 8.3(H) 6.1 - 8.0 g/dL [facility] Albumin 3.8 3.2 - 5.2 g/dL [facility] AST 19 0 - 30 unit/L [facility] ALT 26 0 - 30 unit/L [facility] Alk Phos 126(H) 35 - 105 unit/L [facility] Total Bilirubin 1.0 0.2 - 1.3 mg/dL [facility] Estimated GFR 31(L) >=60 mL/min/1. 73 m?? 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
--- OUTSIDE RECORDS SUMMARY | 2023-11-21 15:55 | XMS_ITS | Encounter Summary ---
Author Organization [facility] [place] [address] Care Team Providers Care Wave Solder Offbearer Name Role Phone Tavia Ramirez ALESSANDRO Primary Care Provider [phone] Encounter Details Date Type Department Care Team (Late st Contact Info) Description 05/06/2023 Orders Only Hematology [place] [phone] Chase Mckay MD [facility] DR HEMATOLOGY AND ONCOLOGY [place] [id number] Social History Tobacco Use Types Packs/Day Years [...] PM EDT Office Visit Hematology/Oncology at [address] [phone] Chase Mckay MD [facility] [place] [address] documented as of this encounter Visit Diagnoses Not on filedocumented in this encounter Care Teams Wave Solder Offbearer Relationship Specialty Start Date End Date Tavia Ramirez APRN [address] [place] [address] PCP - General Family Medicine 06/11/22 documented as of this encounter
--- OUTSIDE RECORDS SUMMARY | 2023-11-21 15:55 | XMS_ITS | Encounter Summary ---
Author Organization [place] [address] Care Team Providers Care Dna Analyst Name Role Phone Tavia Ramirez APRN Primary Care Provider [phone] Reason for Visit * Reason Onset Date Comments Follow-up 05/28/2023 S/p ED visit Encounter Details Date Type Department Care Team (Late st Contact Info) Description 05/28/2023 Telephone Hematology/Oncology at [address] [phone] Marci Chen RN Follow-up (S/p ED visit ) Social History Tobacco Use Types Packs/Day Years [...] place to sleep or slept in a fci (including now)? No 03/27/2021 Sex and Gender Information Value Date Recorded Sex Assigned at Not on file Gender Identity Not on file Sexual Orientation Not on file documented as of this encounter Miscellaneous Notes * Telephone Encounter - Marci Chen RN - 05/28/2023 9:16 AM EST Called and spoke with Barb Bullard's daughter Daisha Boudreaux, she is staying with pt the remainder of the week. The ED visit found critical low potassium 2.8 and elevated creatinine 2.4, she was given IV fluids and potassium corrected to 4.2 and creatinine 2.1 before she was discharged. She was advised to push Gatorade fluids at home and was given Zofran prescription. Barb is attempting to eat breakfast currently. She had three loose stools last night, advised to use imodium as needed. She will stay off adagrasib (Krazati) for now as it could be contributing to her symptoms, (70% incidence of diarrhea, 56% incidence of vomiting, 26% incidence of decreased serum potassium per UpToDate, 2023). Daughter will also reach out of home health agency that used to see pt to see if they can re-establish pt now that she is requiring more assistance. She has FUV scheduled with Dr Mckay 06/09/23. Advised I would update providers and call with any further recommendations. Also advised that she have alow threshold to call back with any symptoms/changes/concerns. She is in agreement with plan. ED notes scanned into chart. ----- Message from Marci Chen RN sent at 05/27/2023 2:28 PM EST ----- Regarding: call pt Went to [facility] ED for dehydration 05/27, please call and check on status, thanks! documented in this encounter Plan of Treatment Upcoming Encounters Date Type Department Care Team (Late st Contact Info) Description 12/08/2023 3:30 PM EDT Office Visit Hematology/Oncology at [address] [phone] Chase Mckay MD [facility] DR [place] [address] documented as of this encounter Visit Diagnoses Not on filedocumented in this encounter Care Teams Dna Analyst Relationship Specialty Start Date End Date Tavia Ramirez APR[place] [place] [address] PCP - General Family Medicine 06/11/22 documented as of this encounter
--- OUTSIDE RECORDS SUMMARY | 2023-11-21 15:55 | XMS_ITS | Encounter Summary ---
Author Organization [facility] Address [facility] [place] [address] Care Team Providers Care Gang Worker Name Role Phone Tavia Ramirez APRN Primary Care Provider Reason for Visit * Reason Onset Date Comments Follow-up 07/07/2023 Assess symptoms after restarting oral chemo Encounter Details Date Type Department Care Team (Late st Contact Info) Description 07/07/2023 Telephone Hematology/Oncology at [address] [phone] Margarita Watson, RN Follow-up (Assess symptoms after restarting oral chemo ) Social History Tobacco Use Types Packs/Day [...] Telephone Encounter - Margarita Watson RN - 07/07/2023 11:41 AM EDT Barb called me back. I didn't realize she had spoken to Pamella East RN prior to me calling her. See her note. I assessed Barb's symptoms some more. She was constipated by let me know she just hada BM. She thinks that was contributing to her back pain. Her urine is darker than normal but could be because she is dehydrated and drank koolaid yesterday. She will possibly go to urgent care today to have her urine checked as her PCP is on vacation. She is drinking only on cup of coffee, milk, juice and water. She is not having any nausea. She is taking her adagrasib 400mg once daily and is happy that the nausea and diarrhea have not come back since restarting. Overall she is feeling better than when she called this morning. She will let us know if she goes to urgent care. * Telephone Encounter - Margarita Watson RN - 07/07/2023 11:30 AM EDT LM for Barb to call back . * Telephone Encounter - Margarita Watson RN - 07/07/2023 11:29 AM EDT ----- Message from Margarita Watson RN sent at 07/07/2023 8:11 AM EDT ----- Regarding: FW: call pt ----- Message ----- From: Margarita Watson RN Sent: 07/07/2023 12:00 AM EDT To: [facility] Hem Onc Nurse Subject: call pt ----- Message ----- From: Dianne Jacob APRN Sent: 06/23/2023 3:48 PM EST To: Margarita Watson RN; [facility] Hem Onc Garment Form Assembler Addendum: Please ask triage to check in on her in 2 weeks to make sure she's tolerating this okay documented in this encounter Plan of Treatment Upcoming Encounters Date Type Department Care Team (Late st Contact Info) Description 12/08/2023 3:30 PM EDT Office Visit Hematology/Oncology at [address] [phone] [facility] DR [place] [address] documented as of this encounter Visit Diagnoses Not on filedocumented in this encounter Care Teams Gang Worker Relationship Specialty Start Date End Date Tavia Ramirez [place] [address] [place] [address] PCP - General Family Medicine 06/11/22 documented as of this encounter
--- OUTSIDE RECORDS SUMMARY | 2023-11-21 15:55 | XMS_ITS | Encounter Summary ---
Author Organization [facility] Address [facility] [place] [address] Care Team Providers Care Specialist Icu Name Role Phone James Tavia Foster APRN Primary Care Provider [phone] Encounter Details Date Type Department Care Team (Latest Contact Info) Description 06/16/2023 Travel Social History Tobacco Use Types Packs/Day [...] 3:30 PM EDT Office Visit Hematology/Oncology at [address] [phone] Chase Mckay MD [facility] DR HEMATOLOGY [place] [address] documented as of this encounter Visit Diagnoses Not on filedocumented in this encounter Care Teams Specialist Icu Relationship Specialty Start Date End Date Tavia Ramirez APRN [place] [address] PCP - General Family Medicine 06/11/22 documented as of this encounter
--- OUTSIDE RECORDS SUMMARY | 2023-11-21 15:55 | XMS_ITS | Encounter Summary ---
Author Organization [facility] Address [facility] [place] [address] Care Team Providers Care Veterinary Microbiologist Name Role Phone James Tavia Foster APRN Primary Care Provider [phone] Encounter Details Date Type Department Care Team (Latest Contact Info) Description 06/08/2023 Travel Social History Tobacco Use Types Packs/Day [...] 3:30 PM EDT Office Visit Hematology/Oncology at [address] [phone] Chase Mckay MD [facility] DR [place] [address] documented as of this encounter Visit Diagnoses Not on filedocumented in this encounter Care Teams Veterinary Microbiologist Relationship Specialty Start Date End Date Tavia Ramirez [place] [address] [place] [address] PCP - General Family Medicine 06/11/22 documented as of this encounter
--- OUTSIDE RECORDS SUMMARY | 2023-11-21 15:55 | XMS_ITS | Encounter Summary ---
Author Organization [facility] Address [facility] [place] [address] Care Team Providers Care Blacking Wheel Tender Name Role Phone Tavia Ramirez ALESSANDRO Primary Care Provider [phone] Encounter Details Date Type Department Care Team (Late st Contact Info) Description 05/13/2023 Telephone Hematology/Oncology at [address] [phone] Chase Mckay MD [facility] DR HEMATOLOGY [place] [address] Social History Tobacco Use Types Packs/Day Years [...] slept in a retirement (including now)? 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
--- OUTSIDE RECORDS SUMMARY | 2023-11-21 15:55 | XMS_ITS | Encounter Summary ---
Author Organization [facility] Address [facility] [place] [address] Care Team Providers Care Laboratory Cureman Name Role Phone James Tavia Foster APRN Primary Care Provider [phone] Reason for Visit * Reason Onset Date Comments Questions 05/12/2023 Encounter Details Date Type Department Care Team (Late st Contact Info) Description 05/12/2023 Telephone Hematology/Oncology at [address] [phone] Marci Chen RN Questions Social History Tobacco Use Types Packs/Day Years [...] Telephone Encounter - Marci Chen RN - 05/12/2023 10:24 AM EST Called and LM for pt to return call. Per Dr Mckay, pt should check with Dr Lange at tomorrow's appt to make sure he is good with her starting oral chemotherapy Krazati (adagrasib). Pt will bring medication in tomorrow to review with clinic RN. ----- Message from Bhumi Maradiaga sent at 05/12/2023 9:32 AM EST ----- Barb called because she got her new medication (Krazato 200mg) in the mail. She wants to know whenshe should start to take this medication. Her call back number is [phone] Thank you Bhumi documented in this encounter Plan of Treatment Upcoming Encounters Date Type Department Care Team (Late st Contact Info) Description 12/08/2023 3:30 PM EDT Office Visit Hematology/Oncology at [address] [phone] Chase Mckay MD [facility] HEMATOLOGY [place] [address] documented as of this encounter Visit Diagnoses Not on filedocumented in this encounter Care Teams Laboratory Cureman Relationship Specialty Start Date End Date Tavia Ramirez, OFFSET SECOND PRESS OPERATOR [address] [place] [address] PCP - General Family Medicine 06/11/22 documented as of this encounter
--- OUTSIDE RECORDS SUMMARY | 2023-11-21 15:55 | XMS_ITS | Encounter Summary ---
Author Organization [place] [address] Care Team Providers Care Cover Operator Name Role Phone James Tavia Foster APRN Primary Care Provider [phone] Reason for Visit * Reason Onset Date Comments Dehydration 05/27/2023 Encounter Details Date Type Department Care Team (Late st Contact Info) Description 05/27/2023 Telephone Hematology/Oncology at [address] [phone] Marci Chen RN Dehydration Social History Tobacco Use Types Packs/Day Years [...] place to sleep or slept in a assisted (including now)? No 03/27/2021 Sex and Gender Information Value Date Recorded Sex Assigned at Not on file Gender Identity Not on file Sexual Orientation Not on file documented as of this encounter Miscellaneous Notes * Telephone Encounter - Marci Chen RN - 05/27/2023 1:43 PM EST Caller: Daisha Boudreaux Relationship: Child Clarified Two Patient Identifiers: [x] Reason For Call: Dehydration Assessment/Symptom Review (onset, location, duration, what makes it better or worse, pertinent positives and negatives): Daughter called to report Barb Bullard has not been eating or drinking much the last 3 days. She has had a few bites of egg and sips of water. She had been struggling with nausea since started oral chemotherapy adagrasib (Krazati) 2 weeks ago. She was prescribed compazine with some effect. She also reports intermittent diarrhea and is concerned Barb may be dehydrated from lack of oral intake and diarrhea. The patient also reports fatigue. Advised ED evaluation so they can check labs and determine dehydration status and replete as needed. Review of Systems Related to Reason for Call: System POS NEG Not Applicable Head (ENT /Neuro) [] [x] [] Cardiac [] [x] [] Respiratory [] [x] [] GI [x] [] [] [] [x] [] Musculoskeletal [] [x] [] Integumentary [] [x] [] Mental Health [] [x] [] Disposition/Plan of Care: Emergency Room via personal vehicle now Going to [facility] ED, report called and will touch base with pt tomorrow. Patient/Caregiver verbalizes understanding of plan of care: Yes Patient/Caregiver agrees with plan: Yes Advised patient/caregiver to: NA; patient advised immediate ER Patient/Caregiver demonstrates understanding via teach back: Yes documented in this encounter Plan of Treatment Upcoming Encounters Date Type Department Care Team (Late st Contact Info) Description 12/08/2023 3:30 PM EDT Office Visit Hematology/Oncology at [address] [phone] Chase Mckay MD [facility] [address] [place] [address] documented as of this encounter Visit Diagnoses Not on filedocumented in this encounter Care Teams Cover Operator Relationship Specialty Start Date End Date Tavia Ramirez [place] [place] [address] PCP - General Family Medicine 06/11/22 documented as of this encounter
--- OUTSIDE RECORDS SUMMARY | 2023-11-21 15:55 | XMS_ITS | Encounter Summary ---
Author Organization [facility] [place] [address] Care Team Providers Care Animal Keeper Head Name Role Phone James Tavia Foster APRN Primary Care Provider [phone] Encounter Details Date Type Department Care Team (Latest Contact Info) Description 07/14/2023 Travel Social History Tobacco Use Types Packs/Day [...] a skilled nursing (including now)? No 03/27/2021 DH IPV Inpatient [...] 3:30 PM EDT Office Visit Hematology/Oncology at [address] [phone] Chase Mckay MD [facility] DR [place] [address] documented as of this encounter Visit Diagnoses Not on filedocumented in this encounter Care Teams Animal Keeper Head Relationship Specialty Start Date End Date Tavia Ramirez APRN [address] [place] [address] PCP - General Family Medicine 06/11/22 documented as of this encounter
--- OUTSIDE RECORDS SUMMARY | 2023-11-21 15:55 | XMS_ITS | Encounter Summary ---
Author Organization [facility] Address [facility] [place] [address] Care Team Providers Care District Captain Name Role Phone James Tavia Foster APRN Primary Care Provider [phone] Encounter Details Date Type Department Care Team (Latest Contact Info) Description 07/09/2023 Travel Social History Tobacco Use Types Packs/Day [...] slept in a residential (including now)? No 03/27/2021 DH IPV Inpatient [...] PM EDT Office Visit Hematology/Oncology at [address] [phone] Chase Mckay MD [facility] DR HEMATOLOGY [place] [address] documented as of this encounter Visit Diagnoses Not on filedocumented in this encounter Care Teams District Captain Relationship Specialty Start Date End Date Tavia Ramirez APRN [address] [place] [address] PCP - General Family Medicine 06/11/22 documented as of this encounter
--- OUTSIDE RECORDS SUMMARY | 2023-11-21 15:55 | XMS_ITS | Encounter Summary ---
Author Organization [facility] Address [facility] [place] [address] Care Team Providers Care Party Plan Dealer Name Role Phone James Tavia Foster APRN Primary Care Provider [phone] Encounter Details Date Type Department Care Team (Latest Contact Info) Description 05/13/2023 Travel Social History Tobacco Use Types Packs/Day [...] in a senior care (including now)? No 03/27/2021 Sex and Gender Information Value Date Recorded Sex Assigned at Not on file Gender Identity Not on file Sexual Orientation Not on file documented as of this encounter Plan of Treatment Upcoming Encounters Date Type Department Care Team (Late st Contact Info) Description 12/08/2023 3:30 PM EDT Office Visit Hematology/Oncology at [address] [phone] Chase Mckay MD [facility] DR HEMATOLOGY [place] [address] documented as of this encounter Visit Diagnoses Not on filedocumented in this encounter Care Teams Party Plan Dealer Relationship Specialty Start Date End Date Tavia Ramirez [place] [place] [address] PCP - General Family Medicine 06/11/22 documented as of this encounter
--- OUTSIDE RECORDS SUMMARY | 2023-11-21 15:55 | XMS_ITS | Encounter Summary ---
Author Organization [facility] [place] [address] Care Team Providers Care Dye Penetrant Testing Technician Name Role Phone Tavia Ramirez APRN Primary Care Provider [phone] Reason for Visit * Reason Comments IV Access Port flush * Treatment/Therapy Plan Authorization (Routine) - Closed Specialty Diagnoses / Procedures Referred By Contac t Referred To Contact Hematology and Oncology Diagnoses Metastatic urothelial carcinoma Abnormal thyroid function test Procedures [id number] Jose Barnhart MD [address] [place] [address] DR HEMATOLOGY [place] [address] Jose Lange MD [address] [place] [address] DR HEMATOLOGY [place] [address] Referral ID Status Reason Start Date Expiration Date Visits Re quested Visits Authorized [id number] Closed 04/28/2022 06/24/2023 99 99 Encounter Details Date Type Department Care Team (Late st Contact Info) Description 05/13/2023 3:00 PM EST Infusion Hematology Oncology at [address] [phone] Metastatic urothelial carcinoma [C79.10]; Metastatic urothelial carcinoma; Primary malignant neoplasm of left lower lobe [...] place to sleep or slept in a long term (including now)? No 03/27/2021 Sex and Gender Information Value Date Recorded Sex Assigned at Not on file Gender Identity Not on file Sexual Orientation Not on file documented as of this encounter Progress Notes * Rasheed Roper RN - 05/13/2023 3:00 PM EST INFUSION THERAPY ADMINISTRATION NOTES DIAGNOSIS: 1. Metastatic urothelial carcinoma [C79.10] sodium chloride 0.9 % (flush) (BD PosiFlush Normal Saline 0.9) flush 10-20 mL 2. Metastatic urothelial carcinoma 3. 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 PLAN: Return to clinic per routine. documented in this encounter Miscellaneous Notes * Addendum Note - Rasheed Roper RN - 05/13/2023 3:00 PM ESTAddended by: RASHEED ROPER on: 05/13/2023 03:33 PM Modules accepted: Orders, Level of Service documented in this encounter Plan of Treatment Upcoming Encounters Date Type Department Care Team (Late st Contact Info) Description 12/08/2023 3:30 PM EDT Office Visit Hematology/Oncology at [address] [phone] 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 Malignant neoplasm of lower lobe, bronchus, or lung documented in this encounter Administered Medications Active Administered Medications - up to 3 most recent administrations Medication Order MAR Action Action Date Dose Rate Site sodium chloride 0.9 % (flush) (BD PosiFlush Normal Saline 0.9) flush 10-20 mL 10-20 mL, Intravenous, EVERY 1 MIN PRN, Starting on Tu05/13/23 at 1530, Until Discontinued, Straw Hat Plunger Operator, Routine Given 05/13/2023 3:30 PM EST 20 mLs documented in this encounter Care Teams Dye Penetrant Testing Technician Relationship Specialty Start Date End Date Tavia Ramirez, IMPORT/EXPORT ADMINISTRATOR [address] [place] [address] PCP - General Family Medicine 06/11/22 documented as of this encounter
--- OUTSIDE RECORDS SUMMARY | 2023-11-21 15:55 | XMS_ITS | Encounter Summary ---
[facility] Organization [facility] [place] [address] Care Team Providers Care Review Assistant Name Role Phone Tavia Ramirez APRN Primary Care Provider [phone] Reason for Visit * Reason Comments Other Blocked nephrostomy tube * Auth/Cert (Routine) Specialty Diagnoses / Procedures Referred By Contac t Referred To Contact Diagnoses Pyelonephritis [place] [address] [facility] Referral ID Status Reason Start Date Expiration Date Visits Re quested Visits Authorized [id number] 1 1 Encounter Details Date Type Department Care Team (Latest Contact Info) Description 07/09/2023 6:34 PM EDT - 07/10/2023 12:55 PM EDT Hospital [place] [address] [place] [address] [place] [address] [place] [address] Pyelonephritis, acute; Nephrostomy complication; Obstructive uropathy; Bilateral hydronephrosis; Metastatic urothelial carcinoma Discharge Disposition: Home Social [...] in a mcc (including now)? No 03/27/2021 DH IPV Inpatient [...] Sign Reading Time Taken Comments Blood Pressure 121/64 07/10/2023 12:00 PM EDT Pulse 85 07/10/2023 12:00 PM EDT Temperature 36.6 ??C (97.9 ??F) 07/10/2023 12:00 PM E DT Respiratory Rate 18 07/10/2023 12:00 PM EDT Oxygen Saturation 94% 07/10/2023 12:00 PM EDT Inhaled Oxygen Concentration - - Weight 70.8 kg (156 lb) 07/09/2023 4:46 PM EDT Height 162.6 cm (5' 4) 07/09/2023 4:46 PM EDT Body Mass Index 26.78 07/09/2023 4:46 PM EDT documented in this encounter Discharge Summaries * Melva Driscoll RN - 07/10/2023 12:53 PM EDT Patient discharged from the Emergency Department per protocol. Provided discharge summary and education to patient and daughter; questions answered. Patient will take Bactrim as prescribed and will follow up with PCP and Nephrology. Patient alert and oriented x4, ambulatory, pain free. VSS. * Louie Trujillo MD - 07/10/2023 11:09 AM EDT Discharge Summary Patient Name: Mitesh Bullard Patient Age: 73 y.o. Language: Mohawk Race: White Ethnicity: Not nor Admit date: 07/09/2023 Discharge date and time: 07/10/2023 11:56 AM Attending Physician: Louie Trujillo MD Discharge Physician: Louie Trujillo MD Follow-up Recommendations for Providers: Patient underwent bilateral PCN tube replacement on 07/09/23 due to concern for obstruction. Continue to monitor for adequate urine output. Patient was started on SMP-TMX 400-80 mg 1 tablet BID due to concern for pyelonephritis (R-sided inflammatory stranding surrounding kidney seen on CT A/P). This antibiotic was chosen because patient cannot receive ceftriaxone or pip/tazo due to interaction with pembrolizumab, per discussions with oncology pharmacist/MD. Patient discharged with antibiotic prescription. She should take SMP-TMX for full 7-day course. Recommend repeating CBC to monitor for resolution of leukocytosis. During admission, patient had evidence of BRITNI (Cr 1.85 compared to 1.5 about 1 year ago). Likely post-renal BRITNI in the setting of PCN tube obstruction. Anticipate resolution following PCN tube replacement. Recommend repeating BMP to monitor for resolution of BRITNI. Inpatient Provider Contact Information: For questions regarding this document or issues relating to this hospitalization on the Medical Service, please contact your inpatient physician through the [facility] [employer] [facility] . Issues afterhours and on weekends will be handled by the Hospitalist staff on-call. Discharge Diagnoses (Hospital Problems) and Secondary Diagnoses (Chronic Problems): Active Hospital Problems Diagnosis Pyelonephritis Resolved Hospital Problems No resolved problems to display. Active Non-Hospital Problems Diagnosis Secondary malignant neoplasm of pleura 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 Anemia Bilateral hydronephrosis Folate deficiency Lung mass Obstructive uropathy Metastatic urothelial carcinoma Abnormal thyroid function test Operations/Major Procedures: Bilateral IR nephrostomy tube exchange (07/09/23) History of Presentation: Mitesh Bullard is a 73 y.o. female with PMHx of metastatic bladder cancer [diagnosed 2020 with renalfailure s/p bilateral nephrostomy tubes], left lower lung adenocarcinoma [s/p pembrolizumab 03/2021-04/2023, Adagrasib 04/2023-p], who presents to [facility] due to concern for clogged right percutaneous nephrostomy tube. Patient originally presented with obstructive renal failure in 2020 requiring bilateral PCNs. Workup revealed bilateral hydronephrosis from possible bladder cancer vs lung cancer with a newly discovered lung mass with obstruction of LLL bronchus. The lung mass was biopsied by pulmonology, which revealed lung adenocarcinoma. Patient was then started on pembrolizumab since 03/2021. Patient's treatment course has been stable. Most recent imaging from 02/2023 revealed progression of lung cancer with new adenopathy and pleural disease. She was started on Adagrasib in 04/2023 and pembrolizumab was stopped. Patient presented to urgent care yesterday due to right sided back pain and was diagnosed with a UTI based on UA from both PCNs. She was prescribed nitrofurantoin due to drug/drug interactions from Pembrolizumab and discharged home. At 10:30AM this morning, patient's right nephrostomy tube stopped draining and her back pain worsened so she presented to [facility] ED. ED Course: Patient hemodynamically stable on arrival. Labs were notable for new BRITNI - Cr 1.84 (up from 1.5 1y ago), leukocytosis - WBC 12.1. UA and Bcx were drawn. CT A/P revealed right sided hydronephrosis concerning for possible pyelonephritis and interval gas in the left pleural collection. Patient was switched to TMP-SMX for pyelonephritis coverage and IR was consulted for PCN exchange. Patient is now s/p PCN exchange. Hospital Course: # Metastatic bladder cancer # Lung adenocarcinoma # Hydronephrosis # UTI vs pyelonephritis # Acute kidney injury Prior to bilateral PCN tube exchange, CT A/P on 07/08 showed new R-sided hydronephrosis and hydroureter with surrounding inflammatory stranding which could represent edema or infection. Patient was admitted and continued on SMX- TMP for possible pyelonephritis. She also received 1 L lactated ringers. Following tube replacement, she had clear urine output bilaterally. Overnight patient was afebrile and vitals were stable. Her leukocytosis improved from WBC 12.1 --> 10.1. Her creatinine was stable 1.84 ---> 1.85 (baseline 1.5 around 1 year ago). Her BRITNI is likely post-renal in the setting of PCN obstruction, would expect this to improve now that she is s/p tube exchange. She received 2 doses of SMX-TMP while in the hospital. Will discharge home with antibiotic prescription to complete full 7-day course. Will have patient follow-up with PCP with repeat labs to monitor kidney function. # Low back pain Patient was continued on home tramadol 50 mg q6h PRN and acetaminophen PRN for back pain. # Hypothyroidism Patient was continued on home levothyroxine 75 mcg daily. Vital Signs at Discharge: BP: 140/78, Heart Rate: 80, Temp: 37.1 ??C (98.7 ??F), Resp: 22, BMI (Calculated): 26.77 Height: 162.6 cm (5' 4) (07/09/231645) Weight: 70.8 kg (156 lb) (07/09/231645) Functional and Cognitive Status: No functional or cognitive issues identified. Important Studies and Lab Data: Labs: Recent Labs 07/10/238 07/09/23 165 WBC 10.1* 12.1* HGB 11.1* 12.9 HCT 34.6* 41.6 PLATELET 405* 547* Recent Labs 07/10/23 0148 07/09/23 1654 NA 132* 136 K 3.9 4.1 CL 102 101 CO2 22 24 BUN 22* 21* CREATININE 1.85* 1.84* Recent Labs 07/09/23 1654 AST 28 ALT 23 ALKPHOS 196* BILITOT 0.7 Recent Labs 07/10/2314707/09/23 165 CALCIUM 7.9* 8.9 MAGNESIUM 0.90 -- PHOS 4.0 -- No results for input(s): CK, TROPONINT in the last 168 hours. No results for input(s): PT, PTT, INR in the last 168 hours. Studies: Results for orders placed or performed during the hospital encounter of 07/09/23 CT Abdomen & Pelvis wo Contrast (Exam End: 07/09/2023 6:22 PM) Narrative EXAMINATION: CT ABDOMEN AND PELVIS WO CONTRAST CLINICAL HISTORY: Right flank pain, h/o obstruction now w/ bilat neph tubes and no output from RIGHT side since 10 am, eval displacement, other process right flank pain, h/o obstrution now w/ bilat neph tubes an dno output from RIGHT side since 10 am, eval displacement, other process TECHNIQUE: Helical CT of the abdomen and pelvis without intravenous contrast. Oral contrast was not administered. Multiplanar reformatted images were generated. COMPARISON: PET/CT 03/07/[address] CAP 07/13/2021 FINDINGS: The absence of intravenous contrast limits the evaluation of solid viscera and vasculature. Bilateral nephrostomy tubes are present. There is moderate right-sided hydronephrosis with extensive fat stranding surrounding the right ureter. Left-sided collecting system is decompressed. No evidence of stone. Liver, spleen, adrenal glands, pancreas are normal in attenuation and contour. Bowel is nondilated. No free air. Abdominal aorta is normal in caliber. No lymphadenopathy. The uterus and adnexa are unremarkable. Partially imaged left basilar pleural collection. The collection has slightly decreased in size but now contains gas. Impression 1. New right-sided hydronephrosis and hydroureter with surrounding inflammatory stranding which could represent edema or infection. 2. Left pleural collection containing interval gas, question bronchopleural fistula. Thank you for letting us participate in the care of this patient. If you are a health care provider and have any questions regarding this report, please contact the number below. For patients who have questions please contact the health child care center administrator that requested your imaging first. Electronically signed by: Anthony Mcdonald MD, [facility] ([phone]), at 07/09/2023 6:44 PM IR Nephrogram/Nephrostomy Tube Exchange Bilateral (Exam End: 07/09/2023 10:02 PM) Narrative Preoperative Diagnosis: Chronic indwelling nephrostomy tubes, right obstructed for exchange in the setting of UTI, Pyelo, right tube obstructed. Postoperative Diagnosis: Same Procedure Performed: Over the wire exchange of nephrostomy tubes Estimated Blood Loss: None Fluoroscopy time: Please see [facility] IR technologist record for procedural dose/time Operators: 1. Alin Dillard MD. Attending 2. Oralia Del Real MD, Resident Oral Cipro was administered prior to the procedure. Anesthesia: 1. 1% lidocaine, local. The patient was informed of the risks, benefits, and alternatives to the procedure and gave written consent, which was then placed in the chart. Description of Procedure: All elements of maximal sterile barrier technique were met including cap, mask, sterile gown, sterile gloves, large sterile sheet, hand hygiene and 2% chlorhexidine for cutaneous antisepsis. The existing Nephrostomy tubes were prepped and draped in the usual sterile fashion. Contrast was administered through the existing right tube demonstrating the tube to lie within the renal collecting sytem. Using fluoroscopic guidance, the existing right nephrostomy tube was removed over a wire, and replaced with a new 10 Fr nephrostomy tube which was positioned within the renal pelvis. A spot fluoroscopic image demonstrates the nephrostomy tube to be in good position. Contrast was administered through the existing left tube demonstrating the tube to lie within the renal collecting sytem. Using fluoroscopic guidance, the existing left nephrostomy tube was removed over a wire, and replaced with a new 10 Fr nephrostomy tube which was positioned within the renal pelvis. A spot fluoroscopic image demonstrates the nephrostomy tube to be in good position. The patient tolerated the procedure well. Impression: Uneventful over the wire exchange of nephrostomy tubes as above. I was the attending physician supervising the resident in the above care and I was present with the resident for the entire procedure. Pending Studies and Lab Data: final urine c/s results Discharge Conditions/Prognosis: Upon discharge the pt is hemodynamically stable, fully ambulatory without requiring supplemental oxygen, afebrile and pain controlled with stable oral regimen. Discharge to: home Updated Allergies/ADRs: No Known Allergies Immunizations Given this Hospitalization: Immunization History Administered Date(s) Administered Influenza (Fluzone HD) Quadrivalent High Dose, Preservative Free 03/20/2021 Discharge Medications: Your Medications New Medications Dose Details sulfamethoxazole-trimethoprim 400-80 mg tablet Commonly known as: Bactrim Take 1 tablet by mouth 2 times daily. 1 tablet Quantity: 14 tablet Refills: 0 Continued medications, unchanged Dose Details [...] mg tablet Commonly known as: Senokot Take by mouth daily. Refills: 0 traMADoL 50 mg tablet Commonly known as: Ultram Take 1 tablet by mouth every 6 hours as needed for Pain. 50 mg Quantity: 30 tablet Refills: 0 STOPPED Medications adagrasib 200 mg tablet Commonly known as: Krazati Smoking Status at Discharge: Social History Tobacco Use Smoking Status Former Types: Cigarettes Quit date: 07/04/2014 Years since quittin.0 Smokeless Tobacco Never Instructions Given to Patient at Discharge: Patient Instructions Instructions on Discharge to Home Why you were hospitalized - UTI, nephrostomy tube obstruction s/p PCN exchange Call your doctor or seek medical attention if you develop the following - chest pain, shortness of breath, fever, cough, weakness in an arm or leg Activity level - as tolerated Diet - no change in previous diet Driving - no driving while on narcotics Shower/Bath - permitted Wound Care - none Home Oxygen therapy - none Specific instructions related to your condition: Follow up with your PCP on phone in next 48-72h to get final results of urine culture and for any need for change of antibiotics Follow-up: Future Appointments Date Time Provider Department Center 07/21/2023 2:30 PM Chase Mckay MD [facility] 07/21/2023 3:[address] [facility] You have a hospital follow up appointment scheduled with your primary care provider, Tavia Ramirez APRN, Friday July 21, 2023 12:40 Your Inpatient Doctor: Louie Trujillo MD Your Primary Care Provider: Tavia Ramirez APRN [phone] For questions regarding this document or issues relating to this hospitalization on the Medical Service, please contact your inpatient physician through the [facility] . Issues afterhours and on weekends will [...] any issues or concerns once you leave [facility], we apologize for any undue stress this may cause. Please do not hesitate to call your PCP office or seek further medical assistance if there are any [facility]. This questionnaire is not meant to [...] Orders Future Appointments Provider Department Dept Phone 07/21/2023 2:30 PM Dianne Jacob APRN; Chase Mckay MD Hematology/Oncology at [facility] Arrive at: [facility] door at end of hallway [phone] 07/21/2023 3:[address] Hematology/Oncology at [facility] Arrive at: [facility] door at end of hallway [phone] Future Orders Complete By Expires IR Nephrogram/Nephrostomy Tube Exchange Bilateral [[id number] Custom] 09/08/2023 (Approximate) 03/09/2024 Process Instructions: Scheduling Instructions: Questions: Where will study be performed?: [facility] Radiology Reason for exam and clinical history: Bilateral nephrostomy tube check Clinical information / [facility] questions for radiologist: Exam/Procedure requested: What labs need to be collected during imaging study?: Is the patient on anticoagulant / antiplatelet therapy ?: No Does patient require sedation?: GA rationale: Requested Time: Date of injury if applicable: Discharge References/Attachments None documented in this encounter Discharge Instructions * Patient Instructions* Louie Trujillo MD - 07/10/2023 8:22 AM EDT Instructions on Discharge to Home Why you were hospitalized - UTI, nephrostomy tube obstruction s/p PCN exchange Call your doctor or seek medical attention if you develop the following - chest pain, shortness of breath, fever, cough, weakness in an arm or leg Activity level - as tolerated Diet - no change in previous diet Driving - no driving while on narcotics Shower/Bath - permitted Wound Care - none Home Oxygen therapy - none Specific instructions related to your condition: Follow up with your PCP on phone in next 48-72h to get final results of urine culture and for any need for change of antibiotics Follow-up: Future Appointments Date Time Provider Department Center 07/21/2023 2:30 PM Chase Mckay MD [facility] 07/21/2023 3:[address] [facility] Hem [facility] You have a hospital follow up appointment scheduled with your primary care provider, Tavia Ramirez APRN, Friday July 21, 2023 12:40 Your Inpatient Doctor: Louie Trujillo MD Your Primary Care Provider: Tavia Ramirez APRN [phone] For questions regarding this document or issues relating to this hospitalization on the Medical Service, please contact your inpatient physician through the [facility] [employer] . Issues afterhours and on weekends will [...] any issues or concerns once you leave [facility], we apologize for any undue stress this may cause. Please do not hesitate to call your PCP office or seek further medical assistance if there are any [facility]. This questionnaire is not meant to [...] advance for your time completing this questionnaire. documented in this encounter Medications at Time of Discharge Medication Sig Dispensed Refills Start Date End Date prochlorperazine (Compazine) 10 mg tabletIndications:Primar y malignant 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 Take 1 tablet by mouth every 6 hours as needed for Nausea. 15 tablet 05/13/2023 levothyroxine (Synthroid) 75 mcg tabletIndications:Metast atic urothelial carcinoma Take 1 tablet by mouth daily. 30 tablet 11 02/12/2023 acetaminophen (Tylenol) 500 mg Tablet Take 1,000 mg by mouth every 8 hours as needed for Pain. senna (Senokot) 8.6 mg Tablet Take 1 tablet by mouth daily as needed for Constipation. sulfamethoxazole-trimeth oprim (Bactrim) 400-80 mg tablet Take 1 tablet by mouth 2 times daily. 14 tablet 07/10/2023 07/21/2023 traMADoL (Ultram) 50 mg TabletIndications:Metast atic urothelial carcinoma Take 1 tablet by mouth every 6 hours as needed for Pain. 30 tablet 04/23/2022 08/10/2023 documented as of this encounter Progress Notes * Louie Trujillo MD - 07/10/2023 11:58 AM EDT Hospital Medicine - Attending Day of Discharge Documentation Discharge diagnosis Active Hospital Problems Diagnosis Pyelonephritis Resolved Hospital Problems No resolved problems to display. Secondary Issues Active Non-Hospital Problems Diagnosis Secondary malignant neoplasm of pleura 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 Anemia Bilateral hydronephrosis Folate deficiency Lung mass Obstructive uropathy Metastatic urothelial carcinoma Abnormal thyroid function test I have personally seen and examined the patient and they are ready for discharge. Select the appropriate statement that describes your involvement and care and omit the other: I spent >30 minutes (Day of Discharge Code 64571) involved in the final examination of the patient, discussion of the hospital stay, instructions for continuing care to all relevant caregivers, and preparation of discharge records, prescriptions and referral forms. Plans Discharge to home Follow-up scheduled with PCP Please see the Discharge Summary for complete details of any medication changes and additional plans. * Nolvia Slater RN - 07/09/2023 9:24 PM EDT ANGIO NURSING DATABASE Name: Mitesh Bullard Date of : 1950 AGE: 73 y.o. Address: [address] [address] (home) Mobile: Telephone Information: Referring Provider: Unknown REASON FOR VISIT: Order Questions Answers Reason for exam and clinical history: 73yo F w/ UTI/pyelo & right tube not draining Is the patient on anticoagulant / antiplatelet therapy ? No Planned procedure: Right nephrostomy tube check and change Labs to be performed day of procedure: No labs Sedation: No Sedation Prophylactic antibiotic : None Contrast: Omnipaque Additional medications for procedure: Lidocaine; Lido jelly Consent: Pending Medications to discontinue (and days held): None Case Urgency:: D- Intervention within 24 hrs No Known Allergies Pertinent PMH: Patient Active Problem List Diagnosis Code Metastatic urothelial carcinoma C79.10 Abnormal thyroid function test R94.6 Anemia D64.9 Bilateral hydronephrosis N13.30 Folate deficiency E53.8 Lung mass R91.8 Obstructive uropathy N13.9 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 C34.32 Secondary malignant neoplasm of pleura C78.2 Pyelonephritis N12 Date/Procedure Meds Given/Comments 02/20/21 b/l PCN Placement [...] Exchange Cipro 500mg PO, Lido Jelly 2% 07/09/23 B/L PCN Exchange Lido Jelly 2% 2114 to procedure room 2 via stretcher. Onto table prone. All appropriate monitors, safety strap inplace. Meds per protocol. Laboratory Results: Lab Results Component Value Date CREATININE 1.84 (H) 07/09/2023 Lab Results Component Value Date K 4.1 07/09/2023 Lab Results Component Value Date PLATELET 547 (H) 07/09/2023 documented in this encounter H&P Notes * Kang Rea MD - 07/09/2023 9:25 PM EDT Hospital Medicine Admission History and Physical Patient Name: MITESH BULLARD Date of : 1950 Age: 73 y.o. Hospital Admit Date: 07/09/2023 Inpatient Attending: Mathew Mayers MD PCP: Tavia Ramirez APRN Presenting Diagnosis/Chief Complaint: Clogged nephrostomy tube History of Present Illness: Mitesh Bullard is a 73 y.o. female with PMHx of metastatic bladder cancer [diagnosed 2020 with renalfailure s/p bilateral nephrostomy tubes], left lower lung adenocarcinoma [s/p pembrolizumab 03/2021-04/2023, Adagrasib 04/2023-p], who presents to [facility] due to concern for clogged right percutaneous nephrostomy tube. Patient originally presented with obstructive renal failure in 2020 requiring bilateral PCNs. Workup revealed bilateral hydronephrosis from possible bladder cancer vs lung cancer with a newly discovered lung mass with obstruction of LLL bronchus. The lung mass was biopsied by pulmonology, which revealed lung adenocarcinoma. Patient was then started on pembrolizumab since 03/2021. Patient's treatment course has been stable. Most recent imaging from 02/2023 revealed progression of lung cancer with new adenopathy and pleural disease. She was started on Adagrasib in 04/2023 and pembrolizumab was stopped. Patient presented to urgent care yesterday due to right sided back pain and was diagnosed with a UTI based on UA from both PCNs. She was prescribed nitrofurantoin due to drug/drug interactions from Pembrolizumab and discharged home. At 10:30AM this morning, patient's right nephrostomy tube stopped draining and her back pain worsened so she presented to [facility] ED. ED Course: Patient hemodynamically stable on arrival. Labs were notable for new BRITNI - Cr 1.84 (up from 1.5 1y ago), leukocytosis - WBC 12.1. UA and Bcx were drawn. CT A/P revealed right sided hydronephrosis concerning for possible pyelonephritis and interval gas in the left pleural collection. Patient was switched to TMP-SMX for pyelonephritis coverage and IR was consulted for PCN exchange. Patient is now s/p PCN exchange. Review of Systems (Positives in Bold): General: fevers, chills, night sweats; recent weight changes; fatigue EENT: changes in vision; changes in hearing; rhinorrhea, congestion, sinus pain, sore throat Cardiovascular: chest pain; palpitations; dizziness or lightheadedness, edema Respiratory: SOB, HOLLEY , cough,wheeze GI: abdominal pain; nausea, vomiting, diarrhea, or constipation, blood in stool : dysuria; urgency, frequency, hesitancy, flank pain Musculoskeletal: muscle or joint pain Endocrine: heat or cold intolerace; polyuria/polydipsia Heme: easy bruising or bleeding Neuro: headaches; numbness or tingling; weakness;incoordination Psych: mood good PHYSICAL EXAM: Vitals: Temp: 36.3C HR: 93 BP: 117/97 RR: 18 SPO2: 97% on RA Last value Range last 24 hrs Temperature Temp: 36.3 ??C (97.3 ??F) Temp: [36.3 ??C (97.3 ??F)] Heart Rate Heart Rate: 93 Heart Rate: [93] Blood Pressure BP: (!) 117/97 BP: (117)/(97) Respiratory Rate Resp: 18 Resp: [18] SpO2 SpO2: 97 % SpO2: [97 %] Vital No intake/output data recorded. Gen: Alert & oriented x3, elderly, not in acute distress HEENT: atraumatic, no conjunctival injection, moist mucous membranes CV: Regular rate and rhythm, no murmurs/rubs/gallops, 2+ radial/DP pulses; Pulm: Normal respiratory effort, CTA with good air entery bilaterally, no rales/rhonchi/wheezes Abd: Non-distended, normal active bowel sounds, soft, NT, ND, no masses, no guarding, bilateral nephrostomy tubes in place - dressings are C/D/I. Right nephrostomy tube draining yellow urine, left PCN draining bloody urine Ext: No pedal edema Neuro: Grossly intact, moving all four extremities. Skin: Warm, dry, no rashes Notable Labs: WBC 12.1 Hgb 12.9 Platelets 547 BUN 21 Creatinine 1.4 Imaging/Diagnostics: CT Abdomen & Pelvis wo Contrast 07/09/2023 1. New right-sided hydronephrosis and hydroureter with surrounding inflammatory stranding which could represent edema or infection. 2. Left pleural collection containing interval gas, question bronchopleural fistula. ASSESSMENT and PLAN: Mitesh Bullard is a 73 y.o. female with PMHx of metastatic bladder cancer [diagnosed 2020 with renalfailure s/p bilateral nephrostomy tubes], left lower lung adenocarcinoma [s/p pembrolizumab 03/2021-04/2023, Adagrasib 04/2023-p], who presents to [facility] due to concern for clogged right percutaneous nephrostomy tube. Patient is now status post PCN exchange and is currently doing well. She is now pain-free and not in acute distress. She does have a slight leukocytosis and some evidence of questionable pyelonephritis on CT scan. Not sure how much this represents true kidney infection versus obstruction from her nephrostomy tube. Discussed antibiotic regimen with inpatient pharmacy, there is a concern about interactions between pembrolizumab (which she completed in April) and cephalosporins. There was a discussion between the oncology pharmacist/MD and the decision was made to use Bactrim for this patient,if there is true pyelonephritis Bactrim is not as useful as third-generation cephalosporin, but appears there was some reason why they chose Bactrim over other options, so we will continue with the Bactrim for treatment of UTI/pyelo for now. Can discuss with the on-call pharmacist tomorrow. #Metastatic bladder cancer #Lung adenocarcinoma #Hydronephrosis #UTI vs pyelonephritis -Follow-up UA - Daily CBC - Continue with Bactrim, prefer 5 to 7-day regimen - Hold home adagrasib - Home tramadol -Follow-up with on pharmacy tomorrow regarding antibiotics #Housekeeping: - DVT PPx: Lovenox N/A - GI PPx: n/a - Diet: Regular diet - Level of care: medsurg - Vitals:q4h - Code Satus: DNR/DNI Kang eRa MD PGY2 Internal Medicine Resident Admitter they pay you inpatient procedures unfortunately Associated attestation - Mathew Mayers MD - 07/10/2023 5:04 AM EDT Please see Dr. Rea's note for details of the patient history of presentation and data. I have discussed, reviewed and agree with the documented history with ROS, social and family history, medication list, physical findings, labs/studies, Assessment and Plan of care. I have examined the patient myself and reviewed all labs and studies personally. In addition, I certify that I am a [facility] credentialed attending provider with admitting privileges and that the patient meets or has met medical necessity to require an inpatient IPI level of care meeting a minimum of two midnights or is on the [facility] inpatient only procedure list (status C) due to: Complicated UTI/ pyelonephritis, new right sided hydronephrosis 2/2 blocked right percutaneous nephrostomy tube, possible mild BRITNI. * Oralia Del Real MD - 07/09/2023 8:53 PM EDT Images from the original note were not included. Interventional Radiology Interval H&P: Procedure: Planned procedure: Right nephrostomy tube check and change The patient's history and physical exam have been reviewed and completed. There has been no interval change from that of the pre-operative history and physical exam done within the last 30 days. Physical Exam: Cardiovascular: Regular, Normal Pulmonary: Breath sounds clear to auscultation Abdomen: B/l PCN tubes, leakage around the right with TTP of the right flank. Scant urine in the right bag, small amount in the left. The planned procedure (and sedation plan if appropriate), its benefits and risks, and alternatives were discussed with the patient. The patient consented to the procedure. The indications for the procedure are still present. Pre-sedation Assessment: Sedation Plan: no sedation ASA: 2: Patient with mild systemic disease Mallampati: I: soft palate, fauces, tonsillar pillars and uvula can be seen INTERVENTIONAL RADIOLOGY FOCUSED H&P and PRE-PROCEDURE NOTE: PCP: Tavia Ramirez APRN Referring Provider: Dr. Sepulveda Planned Procedure: Planned procedure: Right nephrostomy tube check and change Procedure Indication: Right hydronephrosis and hydroureter with right flank pain and decreased output from right nephrostomy tube Procedure Request: Interventional Radiology Service contacted by Dr. Sepulveda at 7:10 pm regarding theprocedure request below. Presenting Diagnosis/ Complaint: Mitesh Bullard is a 73 y.o. female presenting to IR for right nephrostomy tube check and change in the setting of right hydronephrosis and hydroureter with right-sidedflank pain and leukocytosis. Past medical history is significant for obstructive uropathy and bilateral hydronephrosis secondary to metastatic urothelial carcinoma and primary lung cancer. Rapid encrustation requiring exchanges every 6-7 weeks. Last bilateral PCN tube change was 06/19/2023. Patient reported decreased right sided PCN output since 10:30am this morning as well as right-sidedflank pain. Patient initially presented to urgent care where she was found to have a UTI via UA (not in epic) and was started on bactrim. Her pain continued and output decreased from her right PCN (patient has b/l PCNs), and thus she presented to [facility] ED. VSS. WBC 12.1. Plts 547. Cr 1.84 (1.54 [address] AP showing right hydronephrosis and hydroureter with edema or infection around the right kidney. 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 Past Surgical History Past Surgical History: Procedure Laterality Date IR MEDIPORT PLACEMENT 04/02/2021 IR Mediport Placement 04/02/2021 Yuval Sinclair PA [facility] INTER[facility] RAD IR NEPHROGRAM/NEPHROSTOMY TUBE EXCHANGE BILATERAL 04/24/2022 IR Nephrogram/Nephrostomy Tube Exchange Bilateral 04/24/2022 Alin Dillard MD [facility] INTER[facility] RAD IR NEPHROGRAM/NEPHROSTOMY TUBE EXCHANGE BILATERAL 07/26/2022 IR Nephrogram/Nephrostomy Tube Exchange Bilateral 07/26/2022 Robe Hope PA [facility] INTER[facility] RAD IR NEPHROGRAM/NEPHROSTOMY TUBE EXCHANGE BILATERAL 10/18/2022 IR Nephrogram/Nephrostomy Tube Exchange Bilateral 10/18/2022 Alexis De La Cruz MD [facility] RAD IR NEPHROGRAM/NEPHROSTOMY TUBE EXCHANGE BILATERAL 12/11/2022 IR Nephrogram/Nephrostomy Tube Exchange Bilateral 12/11/2022 Alexis De La Cruz MD [facility] RAD IR NEPHROGRAM/NEPHROSTOMY TUBE EXCHANGE BILATERAL 02/13/2023 IR Nephrogram/Nephrostomy Tube Exchange Bilateral 02/13/2023 Alin Dillard MD [facility] RAD IR NEPHROGRAM/NEPHROSTOMY TUBE EXCHANGE BILATERAL 04/04/2023 IR Nephrogram/Nephrostomy Tube Exchange Bilateral Alin Dillard MD [facility] RAD IR NEPHROGRAM/NEPHROSTOMY TUBE EXCHANGE BILATERAL 04/25/2023 IR Nephrogram/Nephrostomy Tube Exchange Bilateral [facility] IR NEPHROGRAM/NEPHROSTOMY TUBE EXCHANGE BILATERAL 06/19/2023 IR Nephrogram/Nephrostomy Tube Exchange Bilateral Alexis De La Cruz MD [facility] IR NEPHROSTOMY TUBE PLACEMENT PERCUTANEOUS BILATERAL 02/20/2021 IR Nephrostomy Tube Placement Percutaneous Bilateral [facility] IR NEPHROURETERAL (NU) STENT PLACEMENT/CHECK/CHANGE 07/13/2021 IR Nephroureteral (NU) Stent Placement Check/Change 07/13/2021 Alexis De La Cruz MD [facility] INTERVENTION[facility] IR NEPHROURETERAL (NU) STENT PLACEMENT/CHECK/CHANGE 10/23/2021 IR Nephroureteral (NU) Stent Placement Check/Change 10/23/2021 Zeferino Rosado MD [facility] INTER[facility] RAD IR NEPHROURETERAL (NU) STENT PLACEMENT/CHECK/CHANGE 01/18/2022 IR Nephroureteral (NU) Stent Placement Check/Change 01/18/2022 Guillermo Nice MD [facility] INTER[facility] PRO [facility] EBUS GUIDED SAMPL 3/> NODE STATION/STRUX N/A 04/04/2021 BRONCH, W ENDOBRONCHIAL ULTRASOUND (EBUS) GUIDED SAMPLING, 3+ NODES (WRVU 5.21) performed by Alonzo Cevallos MD at [facility] MAIN OR PRO BRONCHOSCOPY, DIAGNOSTIC W LAVAGE N/A 04/04/2021 BRONCHOSCOPY, RIGID OR FLEXIBLE, WITH BRONCHIAL ALVEOLAR LAVAGE (WRVU 2.88) performed by Alonzo Cevallos MD at [facility] MAIN OR Medications: Current Facility-Administered Medications on File Prior [...] tablet Take 400 mg by mouth daily. 60 tablet 11 prochlorperazine (Compazine) 10 mg tablet Take 1 [...] 8.6 mg Tablet Take by mouth daily. Allergies: Patient has no known allergies. Social [...] Not on file Intimate Partner Violence: Not on file Housing Stability: Unknown (03/27/2021) Housing Stability Vital Sign Unable to Pay for Housing in the Last Year: Patient refused Number of Places Lived in the Last Year: 2 Unstable Housing in the Last Year: No Significant Family History: Family History No family history on file. Pertinent ROS: as per HPI Labs: Lab Results Component Value Date WBC 12.1 (H) 07/09/2023 HCT 41.6 07/09/2023 PLATELET 547 (H) 07/09/2023 BUN 21 (H) 07/09/2023 CREATININE 1.84 (H) 07/09/2023 ALKPHOS 196 (H) 07/09/2023 AST 28 07/09/2023 ALBUMIN 3.8 07/09/2023 BILITOT 0.7 07/09/2023 ALT 23 07/09/2023 PROT 7.8 07/09/2023 K 4.1 07/09/2023 Imaging: CT AP 07/09/2023 Physical Exam: Pending (to be performed in angio the day of procedure) ASA: Pending (to be assessed in angio the day of procedure) Mallampati Class: Pending (to be assessed in angio the day of procedure) Assessment: 73 y.o. female presenting to IR for right nephrostomy tube check and change in the setting of right hydronephrosis and hydroureter with right-sided flank pain and leukocytosis. Past medical history is significant for obstructive uropathy and bilateral hydronephrosis secondary to metastatic urothelial carcinoma and primary lung cancer. Rapid encrustation requiring exchanges every 6-7 weeks. Last bilateral PCN tube change was 06/19/2023. Reviewed with Attending: Dr. Dillard Plan: -ED to attempt flushing right PCN tube -If flushing improves reported blockage, will plan for right PCN check and change tomorrow as long as pt remains stable. -If flushing does not improve reported blockage, will plan for right PCN check and change tonight. Planned procedure: Right nephrostomy tube check and change Labs to be performed day of procedure: No labs Sedation: No Sedation Prophylactic antibiotic : None Contrast: Omnipaque Additional medications for procedure: Lidocaine; Lido jelly Consent: Pending Medications to discontinue (and days held): None Case Urgency:: D- Intervention within 24 hrs 07/09/2023 * Oralia Del Real MD - 07/09/2023 7:37 PM EDT Images from the original note were not included. INTERVENTIONAL RADIOLOGY FOCUSED H&P and PRE-PROCEDURE NOTE: PCP: Tavia Ramirez APRN Referring Provider: Dr. Sepulveda Planned Procedure: Planned procedure: Right nephrostomy tube check and change Procedure Indication: Right hydronephrosis and hydroureter with right flank pain and decreased output from right nephrostomy tube Procedure Request: Interventional Radiology Service contacted by Dr. Sepulveda at 7:10 pm regarding theprocedure request below. Presenting Diagnosis/ Complaint: Mitesh Bullard is a 73 y.o. female presenting to IR for right nephrostomy tube check and change in the setting of right hydronephrosis and hydroureter with right-sidedflank pain and leukocytosis. Past medical history is significant for obstructive uropathy and bilateral hydronephrosis secondary to metastatic urothelial carcinoma and primary lung cancer. Rapid encrustation requiring exchanges every 6-7 weeks. Last bilateral PCN tube change was 06/19/2023. Patient reported decreased right sided PCN output since 10:30am this morning as well as right-sidedflank pain. Patient initially presented to urgent care where she was found to have a UTI via UA (not in epic) and was started on bactrim. Her pain continued and output decreased from her right PCN (patient has b/l PCNs), and thus she presented to [facility] ED. VSS. WBC 12.1. Plts 547. Cr 1.84 (1.54 [address] AP showing right hydronephrosis and hydroureter with edema or infection around the right kidney. 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 Past Surgical History: Procedure Laterality Date IR MEDIPORT PLACEMENT 04/02/2021 IR Mediport Placement 04/02/2021 Yuval Sinclair PA [facility] RAD IR NEPHROGRAM/NEPHROSTOMY TUBE EXCHANGE BILATERAL 04/24/2022 IR Nephrogram/Nephrostomy Tube Exchange Bilateral 04/24/2022 Alin Dillard MD [facility] INTER[facility] RAD IR NEPHROGRAM/NEPHROSTOMY TUBE EXCHANGE BILATERAL 07/26/2022 IR Nephrogram/Nephrostomy Tube Exchange Bilateral 07/26/2022 Robe Hope PA [facility] INTER[facility] RAD IR NEPHROGRAM/NEPHROSTOMY TUBE EXCHANGE BILATERAL 10/18/2022 IR Nephrogram/Nephrostomy Tube Exchange Bilateral 10/18/2022 Alexis De La Cruz MD [facility] INTER[facility] RAD IR NEPHROGRAM/NEPHROSTOMY TUBE EXCHANGE BILATERAL 12/11/2022 IR Nephrogram/Nephrostomy Tube Exchange Bilateral 12/11/2022 Alexis De La Cruz MD [facility] INTER[facility] RAD IR NEPHROGRAM/NEPHROSTOMY TUBE EXCHANGE BILATERAL 02/13/2023 IR Nephrogram/Nephrostomy Tube Exchange Bilateral 02/13/2023 Alin Dillard MD [facility] INTER[facility] RAD IR NEPHROGRAM/NEPHROSTOMY TUBE EXCHANGE BILATERAL 04/04/2023 IR Nephrogram/Nephrostomy Tube Exchange Bilateral Alin Dillard MD [facility] INTER[facility] RAD IR NEPHROGRAM/NEPHROSTOMY TUBE EXCHANGE BILATERAL 04/25/2023 IR Nephrogram/Nephrostomy Tube Exchange Bilateral [facility] INTER[facility] RAD IR NEPHROGRAM/NEPHROSTOMY TUBE EXCHANGE BILATERAL 06/19/2023 IR Nephrogram/Nephrostomy Tube Exchange Bilateral Alexis De La Cruz MD [facility] INTER[facility] RAD IR NEPHROSTOMY TUBE PLACEMENT PERCUTANEOUS BILATERAL 02/20/2021 IR Nephrostomy Tube Placement Percutaneous Bilateral [facility] INTER[facility] RAD IR NEPHROURETERAL (NU) STENT PLACEMENT/CHECK/CHANGE 07/13/2021 IR Nephroureteral (NU) Stent Placement Check/Change 07/13/2021 Alexis De La Cruz MD [facility] INTERVENTION[facility] IR NEPHROURETERAL (NU) STENT PLACEMENT/CHECK/CHANGE 10/23/2021 IR Nephroureteral (NU) Stent Placement Check/Change 10/23/2021 Zeferino Rosado MD [facility] INTER[facility] RAD IR NEPHROURETERAL (NU) STENT PLACEMENT/CHECK/CHANGE 01/18/2022 IR Nephroureteral (NU) Stent Placement Check/Change 01/18/2022 Guillermo Nice MD [facility] PRO [facility] EBUS GUIDED SAMPL 3/> NODE STATION/STRUX N/A 04/04/2021 BRONCH, W ENDOBRONCHIAL ULTRASOUND (EBUS) GUIDED SAMPLING, 3+ NODES (WRVU 5.21) performed by Alonzo Cevallos MD at [facility] MAIN OR PRO BRONCHOSCOPY, DIAGNOSTIC W LAVAGE N/A 04/04/2021 BRONCHOSCOPY, RIGID OR FLEXIBLE, WITH BRONCHIAL ALVEOLAR LAVAGE (WRVU 2.88) performed by Alonzo Cevallos MD at [facility] MAIN OR Medications: Current Facility-Administered Medications on File Prior [...] tablet Take 400 mg by mouth daily. 60 tablet 11 prochlorperazine (Compazine) 10 mg tablet Take 1 [...] 8.6 mg Tablet Take by mouth daily. Allergies: Patient has no known allergies. Social [...] Not on file Intimate Partner Violence: Not on file Housing Stability: Unknown (03/27/2021) Housing Stability Vital Sign Unable to Pay for Housing in the Last Year: Patient refused Number of Places Lived in the Last Year: 2 Unstable Housing in the Last Year: No Significant Family History: No family history on file. Pertinent ROS: as per HPI Labs: Lab Results Component Value Date WBC 12.1 (H) 07/09/2023 HCT 41.6 07/09/2023 PLATELET 547 (H) 07/09/2023 BUN 21 (H) 07/09/2023 CREATININE 1.84 (H) 07/09/2023 ALKPHOS 196 (H) 07/09/2023 AST 28 07/09/2023 ALBUMIN 3.8 07/09/2023 BILITOT 0.7 07/09/2023 ALT 23 07/09/2023 PROT 7.8 07/09/2023 K 4.1 07/09/2023 Imaging: CT AP 07/09/2023 Physical Exam: Pending (to be performed in angio the day of procedure) ASA: Pending (to be assessed in angio the day of procedure) Mallampati Class: Pending (to be assessed in angio the day of procedure) Assessment: 73 y.o. female presenting to IR for right nephrostomy tube check and change in the setting of right hydronephrosis and hydroureter with right-sided flank pain and leukocytosis. Past medical history is significant for obstructive uropathy and bilateral hydronephrosis secondary to metastatic urothelial carcinoma and primary lung cancer. Rapid encrustation requiring exchanges every 6-7 weeks. Last bilateral PCN tube change was 06/19/2023. Reviewed with Attending: Dr. Dillard Plan: -ED to attempt flushing right PCN tube -If flushing improves reported blockage, will plan for right PCN check and change tomorrow as long as pt remains stable. -If flushing does not improve reported blockage, will plan for right PCN check and change tonight. Planned procedure: Right nephrostomy tube check and change Labs to be performed day of procedure: No labs Sedation: No Sedation Prophylactic antibiotic : None Contrast: Omnipaque Additional medications for procedure: Lidocaine; Lido jelly Consent: Pending Medications to discontinue (and days held): None Case Urgency:: D- Intervention within 24 hrs 07/09/2023 documented in this encounter ED Notes * Wanda Manuel RN - 07/09/2023 8:05 PM EDT IV team paged - pt has blood cultures ordered and requires ultrasound IV. 2015 - Pharmacy paged and asked to please verify meds * Shirin Sanderson MD - 07/09/2023 6:35 PM EDT ED Resident Note HPI: Mitesh Bullard is a 73 y.o. female w/ metastatic bladder cancer (dx fall 2020) and adenocarcinoma left lung lower lobe w/ pleural involvement who presents to the Emergency Department with Rt PCN tube not draining & UTI. PT reports right nephrostomy tube has not drained since around 10:30 AM. Patient additionally reports right back pain. Patient reports yesterday she went to urgent care because of her right back pain. Per patient she reportedly had a UTI after the test that the urine from both percutaneous nephrostomy tubes. Patient reports that urgent care discussed antibiotic choices with her oncologist and they decided macrobid due to drug drug interactions with her Pembrolizumab. Pt reports no improvement in her right flank pain. Endorses reduced output of left PCN. Endorses lightheadedness, and baseline SOB. Denies fever, chills, congestion, cough, abd pain, diarrhea, N/V. Hx obtained by pt. Had nephrostomy tubes last exchanged Jun 19. ROS as per HPI Vitals: ED Triage Vitals [07/09/23 1646] BP: (!) 117/97 Heart Rate: 93 Resp: 18 Temp: 36.3 ??C (97.3 ??F) Temp src: Temporal SpO2: 97 % O2 Device: RA O2 Flow Rate (L/min): n/a Physical Exam Vitals reviewed. Constitutional: General: She is not in acute distress. Appearance: She is ill-appearing. Eyes: Conjunctiva/sclera: Conjunctivae normal. Cardiovascular: Rate and Rhythm: Normal rate and regular rhythm. Pulses: Normal pulses. Heart sounds: Normal heart sounds. Pulmonary: Effort: Pulmonary effort is normal. Comments: Bibasilar crackles Abdominal: General: Abdomen is flat. There is no distension. Palpations: Abdomen is soft. Tenderness: There is right CVA tenderness. There is no left CVA tenderness. Musculoskeletal: Right lower leg: No edema. Left lower leg: No edema. Skin: General: Skin is warm and dry. Capillary Refill: Capillary refill takes less than 2 seconds. Neurological: General: No focal deficit present. Mental Status: She is alert. Motor: No weakness. ED Course: I have reviewed labs and imaging, images and available reports, and they are significant for: ED Course as of 07/09/232010Jul 09, 2023 1825 CBC (with Diff)(!) Leukocytosis to 121, ANC 8.85. Elevated platelets to 547. 1825 Comprehensive metabolic panel (non-fasting)(!) Cr elevated 1.84, was 1.5 ~1year ago. BUN 21, Alk phos elevated to 196. Electrolytes wnl 1923 CT Abdomen & Pelvis wo Contrast Right sided hydronephrosis and inflammation (edema vs infection) CT Abdomen & Pelvis wo Contrast Final Result 1. New right-sided hydronephrosis and hydroureter with surrounding inflammatory stranding which could represent edema or infection. 2. Left pleural collection containing interval gas, question bronchopleural fistula. Thank you for letting us participate in the care of this patient. If you are a health care provider and have any questions regarding this report, please contact the number below. For patients who have questions please contact the health child care center administrator that requested your imaging first. Electronically signed by: Anthony Mcdonald MD, [facility] ([phone]), at 07/09/2023 6:44 PM IR Nephrogram/Nephrostomy Tube Exchange Bilateral (Results Pending) Procedures Assessment and Plan: 73 y.o. female with PCN tube complication and UTI/pyelonephritis. Concern for UTI/pyelo as pt reports flank pain, reduced output, and CT shows hydronephrosis and right kidney inflammation. Vitals stable and minimal systemic infectious symptoms besides right flank pain but will resuscitate w/ IVF and get blood culturesx2. Discontinued Macrobid, and started bactrim. Macrobid would not be adequate coverage for pyelo or complicated UTI. Bactrim dose adjusted for isaias al function. Cannot use CTX or zosyn due to interaction w/ pembro which makes it less effective. IR placed tube last, consulted their service who will evaluate pt and replace tubes tonight. For pain gave home tramadol and started tylenol. Pt admitted for management of PCN and for treatment of pyelonephritis. The visit findings, diagnosis, and care plan were discussed with the patient. Shirin Sanderson MD Resident 07/09/232010 Shirin Sanderson MD Resident 07/09/232010 Associated attestation - Delon Manuel MD - 07/09/2023 10:05 PM EDT ED ATTENDING ATTESTATION NOTE The patient was seen in conjunction with the resident physician. I have independently performed thekey portions of the history and physical exam. I have reviewed the diagnostic studies including labs, imaging studies and EKGs. I have discussed the details of the case with the resident and agree with the assessment and plan as described in the resident note unless noted below or in my separate note. * Judson Alex APRN - 07/09/2023 4:44 PM EDT Patient Name: Mitesh Bullard Patient : 1950 Encounter Date: 07/09/2023 Brief Provider Triage Note 73 y.o. female presents to the emergency department with concern for blocked nephrostomy tube on right, no output since 10 AM. Went to Urgent Care yesterday, told she has an infection on that side and started on Macrobid. Having right flank pain, no fevers. Brief focused physical exam notable for alert female, NAD but appears uncomfortable, limited exam in triage. BP (!) 117/97 Pulse 93 Temp 36.3 ??C (97.3 ??F) (Temporal) Resp 18 Ht 162.6 cm (5' 4) Wt70.8 kg (156 lb) SpO2 97% BMI 26.78 kg/m?? Plan: labs, U/A with reflex culture, and CT A/P w/ Patient requires further evaluation, diagnosis and management in the emergency department. Judson Alex APRN 07/09/23 1750 documented in this encounter Miscellaneous Notes * Brief Op Note - Oralia Del Real MD - 07/09/2023 9:54 PM EDT INTERVENTIONAL RADIOLOGY BRIEF PROCEDURE NOTE Patient Name: Mitesh Bullard : 1950 Case Date: 07/09/2023 Operators: Attending: Dr. Dillard All Staff: Dr. Del Real (resident), Pennie RT, Nolvia RN Post-operative diagnosis/Indication: Blocked right nephrostomy tube Name of Procedure Performed: Bilateral nephrostomy tube exchange Description of the procedure: Over the wire exchange of bilateral nephrostomy tubes Findings of the procedure: The existing right and left nephrostomy tubes were prepped and draped in the usual sterile fashion.Contrast was administered through the existing tubes demonstrating them in the renal collecting systems, on both the right and left side. Using fluoroscopic guidance, the existing nephrostomy tubes were removed over a wire, and replaced with new 10 Fr all purpose drains which was positioned within the renal pelvis, on both the right and left side. A spot fluoroscopic image demonstrates the bilateral nephrostomy tubes to be in good position. EBL: <10 mL Specimens: None Complications: No immediate Plan/Disposition: Uncomplicated exchange of bilateral nephrostomy tubes. FULL PROCEDURE NOTE TO FOLLOW IN IMAGE REPORT * ED Triage - Shital Georges RN - 07/09/2023 4:45 PM EDT Pt arrives for concerns of blocked right side nephrostomy tube. No output since 1030 am. Started abx (Macrobid) yesterday for UTI. Endorses worsening pain to area. Denies fever. Pt speaking in clear,logical and full sentences. Respiratory rate regular and unlabored. Skin appropriate color, warm and dry. Alert & oriented x4 HPI (Adult) Stated Reason for Visit: I have a blocked nephrostomy tube History Obtained From: patient documented in this encounter Plan of Treatment Upcoming Encounters Date Type Department Care Team (Late st Contact Info) Description 12/08/2023 3:30 PM EDT Office Visit Hematology/Oncology at [address] [phone] Chase Mckay MD [facility] [address] [place] [address] documented as of this encounter Procedures Procedure Name Priority Date/Time Associated Diagnosis Comments SCAN, PERIPHERAL BLOOD Routine 1:48 AM EDT HEMOGRAM Routine 07/10/2023 1:48 AM EDT DIFFERENTIAL, AUTOMATED Routine 07/10/2023 1:48 AM EDT HC CBC,PLT & AUTO DIFF Routine 1:48 AM EDT PHOSPHORUS Routine 07/10/2023 1:48 AM EDT MAGNESIUM Routine 07/10/2023 1:48 AM EDT BASIC METABOLIC PANEL (NON-FASTING) Routine 07/10/2023 1:48 AM EDT URINALYSIS MICROSCOPIC EXAM STAT 07/10/2023 12:10 AM EDT URINALYSIS MICROSCOPIC EXAM STAT 07/10/2023 12:10 AM EDT URINALYSIS WITH REFLEX CULTURE STAT 07/10/2023 12:10 AM EDT URINALYSIS WITH REFLEX CULTURE STAT 07/10/2023 12:10 AM EDT URINE CULTURE STAT 07/10/2023 12:10 AM EDT IR NEPHROGRAM/NEPHROSTOMY TUBE EXCHANGE BILATERAL STAT 07/09/2023 10:02 PM EDT HC BLOOD CULTURE- STAT 07/09/2023 8:4 1 PM EDT HC BLOOD CULTURE- STAT 07/09/2023 8:[address] ABDOMEN AND PELVIS WO CONTRAST STAT 07/09/2023 6:22 PM EDT HEMOGRAM STAT 07/09/2023 4:54 PM EDT DIFFERENTIAL, AUTOMATED STAT 07/09/2023 4:54 PM EDT GOLD TUBE HOLD STAT 07/09/2023 4:54 PM EDT BLUE TUBE HOLD STAT 07/09/2023 4:54 PM EDT HC CBC,PLT & AUTO DIFF STAT 4:54 PM EDT COMPREHENSIVE METABOLIC PANEL (NON-FASTING) STAT 07/09/2023 4:54 PM EDT documented in this encounter Results * Phosphorus (07/10/2023 1:48 AM EDT) Phosphorus 4.0 2.5 - 4.5 mg/dL [facility] Blood Venous Draw / Unknown 07/10/2023 1:48 AM EDT 07/10/2023 1:59 AM EDT Narrative Resulting Agency Comment Spec In Lab Louie Trujillo MD CHEMISTRY ORDERABL ES [facility] [address] [facility] [address] [place] [address] * Magnesium (07/10/2023 1:48 AM EDT) [facility] Magnesium 0.90 0.69 - 1.07 mmol/L [facility] Blood Venous Draw / Unknown 07/10/2023 1:48 AM EDT 07/10/2023 1:59 AM EDT Narrative Resulting Agency Comment Spec In Lab Louie Trujillo MD CHEMISTRY ORDERABL ES Performing Organization Address City/[facility]/ZIP Co de Phone Number [facility] [place] [address] * Scan, Peripheral Blood (07/10/2023 1:48 AM EDT) [facility] Plat Estimate Increased [facility] RBC Morphology Abnormal [facility] Microcytes 1-5 /HPF [facility] Hypochromia Slight [facility] Blood 07/10/2023 1:48 AM EDT 07/10/2023 1:56 AM EDT Narrative Resulting Agency Comment Spec In Lab Kang Rea MD HEMATOLOGY ORDERABLE S Performing Organization Address City/[facility]/ZIP Co de Phone Number [facility] [place] [address] * (ABNORMAL) Differential, Automated (07/10/2023 1:48 AM EDT) [facility] Neutrophils % 63.2 % [facility] Neutr Abs (ANC) 6.36(H) 1.70 - 6.10 x10(3)/mc L [facility] Lymphocytes % 19.3 % [facility] Lymphocytes Abs 1.9 0.9 - 3.2 x10(3)/mc L [facility] Monocytes % 15.3 % [facility] Monocyte Abs 1.5(H) 0.3 - 0.9 x10(3)/mc L [facility] Eosinophils % 1.0 % [facility] Eosinophils Abs 0.1 0.0 - 0.4 x10(3)/mc L [facility] Basophils % 0.4 % [facility] Basophils Abs 0.0 0.0 - 0.1 x10(3)/[facility] Immature Gran % 0.80 % [facility] Comment: Immature granulocytes(IG's)percentage and absolute count will include metamyelocytes, myelocytes, and promyelocytes. Blood smears from CBCs yielding IG's will be scanned manually for concordance. If this scan disagrees with the automated IG or if promyelocytes are noted, a manual differential will be performed. [place] Gran Abs 0.08(H) 0.00 - 0.04 x10(3)/[facility] Blood 07/10/2023 1:48 AM EDT 07/10/2023 1:56 AM EDT Narrative Resulting Agency Comment Spec In Lab Kang Rea MD HEMATOLOGY ORDERABLE S [facility] [place] [address] * (ABNORMAL) Hemogram (07/10/2023 1:48 AM EDT) WBC 10.1(H) 4.0 - 9.5 x10(3)/[facility]AT[facility] RBC 4.51 4.00 - 5.21 x10(6)/[facility] Hemoglobin 11.1(L) 11.7 - 15.5 g/dL [facility] Hematocrit 34.6(L) 35.7 - 45.8 % [facility] MCV 76.7(L) 82.6 - 94.4 fL [facility] MCH 24.6(L) 27.1 - 32.0 pg [facility] MCHC 32.1 31.7 - 35.0 g/dL [facility] Platelets 405(H) 145 - 357 x10(3)/[facility]ATORY RDWSD 46.4(H) 37.0 - 46.0 fL [facility] RDWCV 16.6(H) 11.5 - 14.1 % [facility] MPV 8.8 7.6 - 12.9 fL [facility] nRBC % Auto 0.0 % [facility] nRBC Abs Auto 0.000 0.000 - 0.000 x10(3)/mcL [facility] Blood 07/10/2023 1:48 AM EDT 07/10/2023 1:56 AM EDT Narrative Resulting Agency Comment Spec In Lab Kang Rea MD HEMATOLOGY ORDERABLE S [facility] [place] [address] * (ABNORMAL) Basic Metabolic Panel (non-fasting) (07/10/2023 1:48 AM EDT) Glucose Lvl 96 65 - 199 mg/dL [facility] Comment:Diabetes: >=200 mg/d L plus symptoms BUN 22(H) 8 - 18 mg/dL [facility] Creatinine 1.85(H) 0.70 - 1.20 mg/dL [facility] Sodium 132(L) 135 - 145 mmol/L [facility] Potassium 3.9 3.5 - 5.0 mmol/L [facility] Comment: Please note: ??Patients with WBC >100,000 may have falsely elevated Potassium levels. ??For accurate Potassium quantification in these patients send serum separator tube (gold top) for subsequent determinations. ??Contact the Clinical Chemistry Laboratory if there are any questions. Chloride 102 98 - 107 mmol/L [facility] CO2 22 22 - 31 mmol/L [facility] Anion Gap 8 5 - 15 mmol/L [facility] Calcium 7.9(L) 8.5 - 10.5 mg/dL [facility] Comment:result rechecked-RSG Estimated GFR 29(L) >=60 mL/min/1. 73 m?? [facility] Comment: This patient's estimated GFR [...] and symptoms in addition to eGFR. Blood 07/10/2023 1:48 AM EDT 07/10/2023 1:57 AM EDT Narrative Resulting Agency Comment Spec In Lab Mathew Mayers MD CHEMISTRY ORDERABLES [facility] [place] [address] * (ABNORMAL) Urine culture (07/10/2023 12:10 AM EDT) Urine Culture 10,000-49,0 00 cfu/ml Proteus vulgaris(A) [facility] Organism Proteus vulgaris(A) [facility] Nephrostomy Urine 07/10/2023 12:10 AM EDT 07/10/2023 1:36 AM EDT Narrative Resulting Agency Comment Spec [...] Proteus vulgaris Trimethoprim/Sulfa VITEK 2 METHOD Sensitive Kang Rea MD MICROBIOLOGY - GENER AL ORDERABLES Performing Organization Address [facility] Co de Phone Number [facility] [place] [address] * (ABNORMAL) Urinalysis Microscopic Exam (07/10/2023 12:10 AM EDT) RBC UA >100(H) 0 - 4 /HPF [facility] WBC UA 78(H) 0 - 5 /HPF [facility] Bacteria UA Rare(A) None /HPF [facility] Squam Epith UA 1 <=4 /HPF [facility] Hyaline Cast UA <1 0 - 2 /LPF [facility] Nephrostomy Urine 07/10/2023 12:10 AM EDT 07/10/2023 12:23 AM EDT Narrative Resulting Agency Comment Spec In Lab Kang Rea MD URINE ORDERABLES Performing Organization Address [facility] Co de Phone Number [facility] [place] [address] * (ABNORMAL) Urinalysis Microscopic Exam (07/10/2023 12:10 AM EDT) RBC UA >100(H) 0 - 4 /HPF [facility] WBC UA 49(H) 0 - 5 /HPF [facility] Bacteria UA Occasional (A) None /HPF [facility] Squam Epith UA 10(H) <=4 /HPF [facility] Trans Epith UA <1 <=1 /HPF [facility] Renal Epith UA <1(H) <=0 /HPF [facility] Hyaline Cast UA <1 0 - 2 /LPF [facility] Nephrostomy Urine 07/10/2023 12:10 AM EDT 07/10/2023 12:22 AM EDT Narrative Resulting Agency Comment Spec In Lab Kang Rea MD URINE ORDERABLES Performing Organization Address [facility]/ZIP Co de Phone Number [facility] [place] [address] * (ABNORMAL) Urinalysis with reflex Culture (07/10/2023 12:10 AM EDT) Glucose UA Negative Negative mg/dL [facility] Protein UA 100(A) Negative mg/dL [facility] Bilirubin UA Negative Negative mg/dL [facility] Comment: Clinical correlation required for positive Urine Bilirubin results as false positive may occur with some drugs and drug related products. If a false positive is suspected a serum total bilirubin should be considered if clinically indicated. Urobilinogen UA Normal Normal mg/dL [facility] pH UA 6.5 5.0 - 8.0 [facility] Blood UA Large(A) Negative mg/dL [facility] Ketones UA Negative Negative mg/dL [facility] Nitrite UA Negative Negative [facility] Leukocytes UA Large(A) Negative mcL [facility] Appearance UA Cloudy(A) Clear [facility] Spec [place] UA 1.013 1.005 - 1.030 [facility] Color UA [place](A) Yellow [facility] Culture Reflexed Dup Culture M [facility] Nephrostomy Urine 07/10/2023 12:10 AM EDT 07/10/2023 12:22 AM EDT Narrative Resulting Agency Comment Spec In Lab Mathew Mayers MD URINE ORD ERABLES Performing Organization Address City/[facility]/ZIP Co de Phone Number [facility] [place] [address] * (ABNORMAL) Urinalysis with reflex Culture (07/10/2023 12:10 AM EDT) Glucose UA Negative Negative mg/dL [facility] Protein UA >=300(A) Negative mg/dL [facility] Bilirubin UA Negative Negative mg/dL [facility] Comment: Clinical correlation required for positive Urine Bilirubin results as false positive may occur with some drugs and drug related products. If a false positive is suspected a serum total bilirubin should be considered if clinically indicated. Urobilinogen UA Normal Normal mg/dL [facility] pH UA 6.0 5.0 - 8.0 [facility] Blood UA Large(A) Negative mg/dL [facility] Ketones UA Negative Negative mg/dL [facility] Nitrite UA Negative Negative [facility] Leukocytes UA Moderate(A) Negative mcL [facility] Appearance UA Cloudy(A) Clear [facility] Spec [place] UA 1.021 1.005 - 1.030 [facility] Color UA Yellow Yellow [facility] Culture Reflexed Yes [facility] Nephrostomy Urine 07/10/2023 12:10 AM EDT 07/10/2023 12:23 AM EDT Narrative Resulting Agency Comment Spec In Lab Mathew Mayers MD URINE ORD ERABLES [facility] [place] [address] * IR Nephrogram/Nephrostomy Tube Exchange Bilateral (07/09/2023 10:02 PM EDT) Anatomical Region Laterality Modality X-Ray Angiograph y Narrative 07/10/2023 8:04 AM EDT Preoperative Diagnosis: ? Chronic indwelling nephrostomy tubes, right obstructed ??for exchange in the setting of UTI, Pyelo, right tube obstructed. Postoperative Diagnosis: ?? Same Procedure Performed: Over the wire exchange of nephrostomy tubes Estimated Blood Loss: None Fluoroscopy time: Please see eD IR technologist record for procedural dose/time Operators: 1. Alin Dillard MD. Attending 2. ??Oralia Del Real MD, Resident Oral Cipro was administered prior to the procedure. Anesthesia: 1. ??1% lidocaine, local. The patient was informed of the risks, benefits, and alternatives to the procedure and gave written consent, which was then placed in the chart. Description of Procedure: ??All elements of maximal sterile barrier technique were met including cap, mask, sterile gown, sterile gloves, large sterile sheet, hand hygiene and 2% chlorhexidine for cutaneous antisepsis. The existing Nephrostomy tubes were prepped and draped in the usual sterile fashion. Contrast was administered through the existing right ??tube ??demonstrating the tube to lie within the renal collecting sytem. Using fluoroscopic guidance, the existing ??right nephrostomy tube was removed over a wire, and replaced with a new ??10 Fr nephrostomy tube which was positioned within the renal pelvis. A spot fluoroscopic image demonstrates the nephrostomy tube to be in good position. Contrast was administered through the existing left ??tube ??demonstrating the tube to lie within the renal collecting sytem. Using fluoroscopic guidance, the existing ??left nephrostomy tube was removed over a wire, and replaced with a new ??10 Fr nephrostomy tube which was positioned within the renal pelvis. A spot fluoroscopic image demonstrates the nephrostomy tube to be in good position. The patient tolerated the procedure well. Impression: Uneventful over the wire exchange of nephrostomy tubes as above. I was the attending physician supervising the resident in the above care and I was present with the resident for the entire procedure. ?? Delon Manuel MD G IR ORDERABLES * Blood culture (07/09/2023 8:41 PM EDT) Blood Culture No growth at 5 days. [facility] Blood 07/09/2023 8:41 PM EDT 07/09/2023 9:09 PM EDT Comment:LH Narrative Resulting Agency Comment Spec In Lab Delon Manuel MD MICROBIOLOGY - BLOOD ORDERABLES Performing Organization Address [facility] Co de Phone Number [facility] [place] [address] * Blood culture (07/09/2023 8:31 PM EDT) Blood Culture No growth at 5 days. [facility] Blood 07/09/2023 8:31 PM EDT 07/09/2023 9:11 PM EDT Comment:RH Narrative Resulting Agency Comment Spec In Lab Delon Manuel MD MICROBIOLOGY - BLOOD ORDERABLES Performing Organization Address [facility] de Phone Number [facility] [place] [address] * CT Abdomen & Pelvis wo Contrast (07/09/2023 6:22 PM EDT) Anatomical Region Laterality Modality Abdomen, Pelvis Computed Tomogra phy Impressions 07/09/2023 6:44 PM EDT 1. ??New right-sided hydronephrosis and hydroureter with surrounding inflammatory stranding which could represent edema or infection. 2. ??Left pleural collection containing interval gas, question bronchopleural fistula. Thank you for letting us participate in the care of this patient. ??If you are a health care provider and have any questions regarding this report, please contact the number below. ??For patients who have questions please contact the health child care center administrator that requested your imaging first. ? Electronically signed by: Anthony Mcdonald MD, [facility] ([phone]), at 07/09/2023 6:44 PM Narrative 07/09/2023 6:44 PM EDT EXAMINATION: CT ABDOMEN AND PELVIS WO CONTRAST CLINICAL HISTORY: Right flank pain, h/o obstruction now w/ bilat neph tubes and no output from RIGHT side since 10 am, eval displacement, other process right flank pain, h/o obstrution now w/ bilat neph tubes an dno output from RIGHT side since 10 am, eval displacement, other process TECHNIQUE: Helical CT of the abdomen and pelvis without intravenous contrast. Oral contrast was not administered. Multiplanar reformatted images were generated. COMPARISON: PET/CT 03/07/[address] CAP 07/13/2021 FINDINGS: The absence of intravenous contrast limits the evaluation of solid viscera and vasculature. Bilateral nephrostomy tubes are present. There is moderate right-sided hydronephrosis with extensive fat stranding surrounding the right ureter. Left-sided collecting system is decompressed. No evidence of stone. Liver, spleen, adrenal glands, pancreas are normal in attenuation and contour. Bowel is nondilated. No free air. Abdominal aorta is normal in caliber. No lymphadenopathy. The uterus and adnexa are unremarkable. Partially imaged left basilar pleural collection. The collection has slightly decreased in size but now contains gas. Procedure Note Anthony Mcdonald MD - 07/09/2023 EXAMINATION: CT ABDOMEN AND PELVIS WO CONTRAST CLINICAL HISTORY: Right flank pain, h/o obstruction now w/ bilat nephtubes and no output from RIGHT side since 10 am, eval displacement, other process right flank pain, h/o obstrution now w/ bilat neph tubes an dno outputfrom RIGHT side since 10 am, eval displacement, other process TECHNIQUE: Helical CT of the abdomen and pelvis without intravenouscontrast. Oral contrast was not administered. Multiplanar reformatted images were generated. COMPARISON: PET/CT 03/07/[address] CAP 07/13/2021 FINDINGS: The absence of intravenous contrast limits the evaluation of solid visceraand vasculature. Bilateral nephrostomy tubes are present. There is moderate right-sided hydronephrosis with extensive fat stranding surrounding the rightureter. Left-sided collecting system is decompressed. No evidence of stone. Liver, spleen, adrenal glands, pancreas are normal in attenuation andcontour. Bowel is nondilated. No free air. Abdominal aorta is normal in caliber. No lymphadenopathy. The uterus andadnexa are unremarkable. Partially imaged left basilar pleural collection. The collection hasslightly decreased in size but now contains gas. IMPRESSION 1. New right-sided hydronephrosis and hydroureter with surroundinginflammatory stranding which could represent edema or infection. 2. Left pleural collection containing interval gas, questionbronchopleural fistula. Thank you for letting us participate in the care of this patient. If youare a health care provider and have any questions regarding this report,please contact the number below. For patients who have questions please contactthe health child care center administrator that requested your imaging first. Judson Bacaicoa MANAGER [employer] IMG CT ORDERABLES * Gold Tube HOLD (07/09/2023 4:54 PM EDT) Gold Hold Sample in lab. [facility] Blood Venous Draw / Unknown 07/09/2023 4:54 PM EDT 07/09/2023 5:18 PM EDT Judson Bacaicoa MANAGER [employer]ODUCE CHEMISTRY ORDERABLES [facility] [place] [address] * Blue Tube HOLD (07/09/2023 4:54 PM EDT) Blue Hold Sample in lab. [facility] Blood Venous Draw / Unknown 07/09/2023 4:54 PM EDT 07/09/2023 5:18 PM EDT Judson Bacaicoa MANAGER PRODUCE HEMATOLOGY ORDERABLE S [facility] [place] [address] * (ABNORMAL) Differential, Automated (07/09/2023 4:54 PM EDT) Neutrophils % 72.9 % [facility] Neutr Abs (ANC) 8.85(H) 1.70 - 6.10 x10(3)/[facility] Lymphocytes % 13.5 % [facility] Lymphocytes Abs 1.6 0.9 - 3.2 x10(3)/[facility] Monocytes % 10.6 % [facility] Monocyte Abs 1.3(H) 0.3 - 0.9 x10(3)/[facility] Eosinophils % 1.2 % [facility] Eosinophils Abs 0.1 0.0 - 0.4 x10(3)/[facility] Basophils % 0.6 % [facility] Basophils Abs 0.1 0.0 - 0.1 x10(3)/[facility] Immature Gran % 1.20 % [facility] Comment: Immature granulocytes(IG's)percentage and absolute count will include metamyelocytes, myelocytes, and promyelocytes. Blood smears from CBCs yielding IG's will be scanned manually for concordance. If this scan disagrees with the automated IG or if promyelocytes are noted, a manual differential will be performed. [place] Gran Abs 0.14(H) 0.00 - 0.04 x10(3)/[facility] Blood 07/09/2023 4:54 PM EDT 07/09/2023 5:18 PM EDT Narrative Resulting Agency Comment Spec In Lab Judson Alex MANAGER [employer]ODUCE HEMATOLOGY ORDERABLE S [facility] [place] [address] * (ABNORMAL) Hemogram (07/09/2023 4:54 PM EDT) WBC 12.1(H) 4.0 - 9.5 x10(3)/[facility] RBC 5.34(H) 4.00 - 5.21 x10(6)/[facility] Hemoglobin 12.9 11.7 - 15.5 g/dL [facility] Hematocrit 41.6 35.7 - 45.8 % [facility] MCV 77.9(L) 82.6 - 94.4 [facility] MCH 24.2(L) 27.1 - 32.0 pg [facility] MCHC 31.0(L) 31.7 - 35.0 g/dL [facility] LABORATORY Platelets 547(H) 145 - 357 x10(3)/[facility] LABORATORY RDWSD 47.7(H) 37.0 - 46.0 [facility] LABORATORY RDWCV 17.1(H) 11.5 - 14.1 % [facility]OR[facility] MPV 9.2 7.6 - 12.9 [facility] LABORATORY nRBC % Auto 0.0 % [facility] LABORATORY nRBC Abs Auto 0.000 0.000 - 0.000 x10(3)/[facility] LABORATORY Blood 07/09/2023 4:54 PM EDT 07/09/2023 5:18 PM EDT Narrative Resulting Agency Comment Spec In Lab Judson Bacaicoa MANAGER PRODUCE HEMATOLOGY ORDERABLE S [facility] [place] [address] * (ABNORMAL) Comprehensive metabolic panel (non-fasting) (07/09/2023 4:54 PM EDT) Glucose Lvl 112 65 - 199 mg/dL [facility] Comment:Diabetes: >=200 mg/d L plus symptoms BUN 21(H) 8 - 18 mg/dL [facility] Creatinine 1.84(H) 0.70 - 1.20 mg/dL [facility] Sodium 136 135 - 145 mmol/L [facility] Potassium 4.1 3.5 - 5.0 mmol/L [facility] Comment: Please note: ??Patients with WBC >100,000 may have falsely elevated Potassium levels. ??For accurate Potassium quantification in these patients send serum separator tube (gold top) for subsequent determinations. ??Contact the Clinical Chemistry Laboratory if there are any questions. Chloride 101 98 - 107 mmol/L [facility] CO2 24 22 - 31 mmol/L [facility] Anion Gap 11 5 - 15 mmol/L [facility] Calcium 8.9 8.5 - 10.5 mg/dL [facility] Total Protein 7.8 6.1 - 8.0 g/dL [facility] Albumin 3.8 3.2 - 5.2 g/dL [facility] AST 28 0 - 30 unit/L [facility] ALT 23 0 - 30 unit/L [facility] Alk Phos 196(H) 35 - 105 unit/L [facility] Total Bilirubin 0.7 0.2 - 1.3 mg/dL [facility] Estimated GFR 29(L) >=60 mL/min/1. 73 m?? [facility] Comment: This patient's estimated GFR [...] and symptoms in addition to eGFR. Blood 07/09/2023 4:54 PM EDT 07/09/2023 5:18 PM EDT Narrative Resulting Agency Comment Spec In Lab Judson Alex APRN CHEMISTRY ORDERABLES [facility] [place] [address] documented in this encounter Visit Diagnoses Diagnosis Pyelonephritis- Primary Pyelonephritis, unspecified Pyelonephritis, acute Acute pyelonephritis without lesion of renal medullary necrosis Nephrostomy complication Urinary complications Obstructive uropathy Urinary obstruction, unspecified Bilateral hydronephrosis Hydronephrosis Metastatic urothelial carcinoma Secondary malignant neoplasm of other urinary organs documented in this encounter Admitting Diagnoses Diagnosis Pyelonephritis Pyelonephritis, unspecified documented in this encounter Administered Medications Inactive Administered Medications - up to 3 most recent administrations Medication Order MAR Action Action Date Dose Rate Site acetaminophen (Tylenol) tablet 650 mg 650 mg, Oral, EVERY 6 HOURS PRN, Starting on Nicolasa 07/10/23 at 0836, Until Fri07/10/23 at 1455, Pain, Maximum dose of acetaminophen is 4,000 mg from all sources in 24 hours. When ordered for pain, acetaminophen should be given even when other ordered pain medications are indicated., Routine Given 07/10/2023 8:44 AM EDT 650 mg acetaminophen (Tylenol) tablet 975 mg 975 mg, Oral, ONCE, 1 dose, On Fri07/09/23 at 1944, Maximum dose of acetaminophen is 4,000 mg from all sources in 24 hours. When ordered for pain, acetaminophen should be given even when other ordered pain medications are indicated., Routine Given 07/09/2023 8:23 PM EDT 975 mg acetaminophen (Tylenol) tablet 975 mg 975 mg (rounded from 1,000 mg), Oral, EVERY 8 HOURS PRN, Starting on Nicolasa 07/10/23 at 0004, Until Fri07/10/23 at 0836, Pain, Maximum dose of acetaminophen is 4,000 mg from all sources in 24 hours. When ordered for pain, acetaminophen should be given even when other ordered pain medications are indicated., Routine Given 07/10/2023 1:57 AM EDT 975 mg enoxaparin (Lovenox) (30 mg/0.3 mL) subcutaneous injection 30 mg 30 mg, Subcutaneous, NIGHTLY, First dose (after last reorder) on Nicolasa 07/10/23 at 0016, Until Discontinued, Routine Given 07/10/2023 1:47 AM EDT 30 mg iohexoL (Omnipaque) (350 mg/mL) solution 50 mL 50 mL, Other, ONCE PRN, 1 dose, Starting on Fri07/09/23 at 2203, Until Fri07/09/23 at 2203, Per Protocol, Warning Vesicant/Irritant Medication , Routine Given 07/09/2023 10:03 PM EDT 15 mLs lactated Ringers 1,000 mL IV bolus at 250 mL/hr, Intravenous, ONCE, 1 dose, On Fri07/09/23 at 1941 New Bag 07/09/2023 8:37 PM EDT 250 mL/hr levothyroxine (Synthroid) tablet 75 mcg 75 mcg, Oral, DAILY, First dose on Fri07/10/23 at 0600, Until Discontinued, Routine Given 07/10/2023 5:02 AM EDT 75 mcg sodium chloride 0.9 % (flush) (BD PosiFlush Normal Saline 0.9) flush 5 mL 5 mL, Intravenous, 2 TIMES DAILY, First dose on Fri07/10/23 at 0006, Until Discontinued, Routine Given 07/10/2023 8:46 AM EDT 10 mLs Given 07/10/2023 12:08 AM EDT 5 mLs sulfamethoxazole-trimethoprim (Bactrim) 400-80 mg per tablet 1 tablet 1 tablet, Oral, EVERY 12 HOURS SCHEDULED (2 times per day), First dose on Fri07/09/23 at 2100, Until Discontinued, Routine, Indication for (Active or Suspected): Urinary Tract/Pyelonephritis Given 07/10/2023 8:44 AM EDT 1 tablet Given 07/09/2023 10:13 PM EDT 1 tablet traMADoL (Ultram) tablet 50 mg 50 mg, Oral, EVERY 12 HOURS PRN, Starting on Fri07/09/23 at 2010, Until Fri07/10/23 at 1455, Pain, Routine Given 07/09/2023 8:22 PM EDT 50 mg traMADoL (Ultram) tablet 50 mg 50 mg, Oral, ONCE, 1 dose, On Fri07/10/23 at 0504, Routine Given 07/10/2023 5:03 AM EDT 50 mg documented in this encounter Active and Recently Administered Medications Times are shown in EDT. Scheduled Medication Order 07/08/2023 07/09/2023 07/10/2023 acetaminophen (Tylenol) tablet 975 mg (COMPLETED) 975 mg, Oral, ONCE, 1 dose, On Fri07/09/23 at 1944, Maximum dose of acetaminophen is 4,000 mg from all sources in 24 hours. When ordered for pain, acetaminophen should be given even when other ordered pain medications are indicated., Routine 2022 (Given - Provider: Wanda Manuel RN) enoxaparin (Lovenox) (30 mg/0.3 mL) subcutaneous injection 30 mg 30 mg, Subcutaneous, NIGHTLY, First dose (after last reorder) on Nicolasa 07/10/23 at 0016, Until Discontinued, Routine 0147 (Given - Provid er: Dianne Chahal RN - Comment: delayed due to patient care) lactated Ringers 1,000 mL IV bolus (COMPLETED) at 250 mL/hr, Intravenous, ONCE, 1 dose, On Fri07/09/23 at 1941 2036 (New Bag - Provider: Wanda Manuel RN) 003 (Stopped - Provider: Dianne Chahal RN) levothyroxine (Synthroid) tablet 75 mcg 75 mcg, Oral, DAILY, First dose on Nicolasa 07/10/23 at 0600, Until Discontinued, Routine 0502 (Given - Provid er: Dianne Chahal RN) sodium chloride 0.9 % (flush) (BD PosiFlush Normal Saline 0.9) flush 5 mL 5 mL, Intravenous, 2 TIMES DAILY, First dose on Nicolasa 07/10/23 at 0006, Until Discontinued, Routine 0008 (Given - Provid er: Dianne Chahal RN)0846 (Given - Provider: Opal Echavarria, TORITO) sulfamethoxazole-trimethop rim (Bactrim) 400-80 mg per tablet 1 tablet 1 tablet, Oral, EVERY 12 HOURS SCHEDULED (2 times per day), First dose on Fri07/09/23 at 2100, Until Discontinued, Routine, Indication for (Active or Suspected): Urinary Tract/Pyelonephritis 2213 (Given - Provider: Wanda Manuel RN) 0844 (Given - Provider: Opal Echavarria, TORITO) traMADoL (Ultram) tablet 50 mg (COMPLETED) 50 mg, Oral, ONCE, 1 dose, On Nicolasa 07/10/23 at 0504, Routine 0503 (Given - Provid er: Dianne Chahal RN - Comment: breakthrough dose administered) PRN Medication Order 07/08/2023 07/09/2023 07/10/2023 acetaminophen (Tylenol) tablet 650 mg 650 mg, Oral, EVERY 6 HOURS PRN, Starting on Nicolasa 07/10/23 at 0836, Until Nicolasa 07/10/23 at 1455, Pain, Maximum dose of acetaminophen is 4,000 mg from all sources in 24 hours. When ordered for pain, acetaminophen should be given even when other ordered pain medications are indicated., Routine 08 (Given - Provid er: Opal Echavarria RN) acetaminophen (Tylenol) tablet 975 mg (CANCELED) 975 mg (rounded from 1,000 mg), Oral, EVERY 8 HOURS PRN, Starting on Nicolasa 07/10/23 at 0004, Until Nicolasa 07/10/23 at 0836, Pain, Maximum dose of acetaminophen is 4,000 mg from all sources in 24 hours. When ordered for pain, acetaminophen should be given even when other ordered pain medications are indicated., Routine 0157 (Given - Provid er: Dianne Chahal RN) iohexoL (Omnipaque) (350 mg/mL) solution 50 mL (COMPLETED) 50 mL, Other, ONCE PRN, 1 dose, Starting on Fri07/09/23 at 2203, Until Fri07/09/23 at 2203, Per Protocol, Warning Vesicant/Irritant Medication , Routine 2202 (Given - Provider: Pennie Ramirez) lidocaine (Xylocaine) 1% (10 mg/mL) injection 3 mg 3 mg (0.3 mL), Subcutaneous, ONCE PRN, 1 dose, Starting on Nicolasa 07/10/23 at 0004, Until Nicolasa 07/10/23 at 1455, for discomfort with PIV insertion, Routine sodium chloride 0.9 % (flush) (BD PosiFlush Normal Saline 0.9) flush 5-20 mL 5-20 mL, Intravenous, EVERY 1 MIN PRN, Starting on Nicolasa 07/10/23 at 0004, Until Nicolasa 07/10/23 at 1455, flush, Flush pertains to all indwelling lines. Flush per protocol found in the job aid using the link provided on this medication record., Routine traMADoL (Ultram) tablet 50 mg 50 mg, Oral, EVERY 12 HOURS PRN, Starting on 07/09/23 at 2010, Until Nicolasa 07/10/23 at 1455, Pain, Routine 2021 (Given - Provider: Wanda Manuel RN) documented in this encounter Care Teams Review Assistant Relationship Specialty Start Date End Date Tavia Ramirez, ALESSANDRO [facility] [place] [address] PCP - General Family Medicine 06/11/22 documented as of this encounter
--- OUTSIDE RECORDS SUMMARY | 2023-11-21 15:55 | XMS_ITS | Encounter Summary ---
[facility] [place] [address] Care Team Providers Care Switchbox Assembler Name Role Phone Tavia Ramirez ALESSANDRO Primary Care Provider [phone] Encounter Details Date Type Department Care Team (Late st Contact Info) Description 05/17/2023 Notes [place] [id number] Jean Carlos Fenton, [facility] [place] [address] Social History Tobacco Use Types Packs/Day Years [...] place to sleep or slept in a usp (including now)? No 03/27/2021 Sex and Gender Information Value Date Recorded Sex Assigned at Not on file Gender Identity Not on file Sexual Orientation Not on file documented as of this encounter H&P Notes * Jean Carlos Fenton P, DO - 05/17/2023 1:58 PM EST Images from the original note were not included. INTERVENTIONAL RADIOLOGY FOCUSED H&P and PRE-PROCEDURE NOTE: PCP: Tavia Ramirez APRN Referring Provider: Cong Dillard Planned Procedure: Procedure Indication: Metastatic Urothelial Cancer. Bilateral ureteral obstruction. Rapid encrustation of nephrostomy catheters. Requiring 6-7 week exchanges Procedure Request: Procedure request received through the Interventional Radiology eDH order queue. Presenting Diagnosis/ Complaint: Barb Bullard is a 72 y.o. female presenting to IR for bilateral nephrostomy catheter exchange. Past medical history is significant for obstructive uropathy and bilateral hydronephrosis secondary to metastatic urothelial carcinoma and primary lung cancer. Last exchanged on 04/25/23. Rapid encrustation requiring exchanges every 6-7 weeks. Antiplatelets: None. Anticoagulants: None. Recent Laboratories: Platelets: 873 on 04/16/21. INR: None. Creatinine: 1.54 on 07/13/21. Getting Laboratories Before Procedure: No. Allergies: None. Past Medical/Surgical History: Patient Active Problem List [...] IR Mediport Placement 04/02/2021 Yuval Sinclair PA [facility] INTERVENTIONL RAD IR NEPHROSTOMY TUBE EXCHANGE BILATERAL 04/24/2022 IR Nephrogram/Nephrostomy Tube Exchange Bilateral 04/24/2022 Alin Dillard MD [facility] INTERVENTIONL RAD IR NEPHROSTOMY TUBE EXCHANGE BILATERAL 07/26/2022 IR Nephrogram/Nephrostomy Tube Exchange Bilateral 07/26/2022 Robe Hope PA [facility] INTERVENTIONL RAD IR NEPHROSTOMY TUBE EXCHANGE BILATERAL 10/18/2022 IR Nephrogram/Nephrostomy Tube Exchange Bilateral 10/18/2022 Alexis De La Cruz MD [facility] INTERVENTIONL RAD IR NEPHROSTOMY TUBE EXCHANGE BILATERAL 12/11/2022 IR Nephrogram/Nephrostomy Tube Exchange Bilateral 12/11/2022 Alexis De La Cruz MD [facility] INTERVENTIONL RAD IR NEPHROSTOMY TUBE EXCHANGE BILATERAL 02/13/2023 IR Nephrogram/Nephrostomy Tube Exchange Bilateral 02/13/2023 Alin Dillard MD [facility] INTERVENTIONL RAD IR NEPHROSTOMY TUBE EXCHANGE BILATERAL 04/04/2023 IR Nephrogram/Nephrostomy Tube Exchange Bilateral Alin Dillard MD [facility] INTERVENTIONL RAD IR NEPHROSTOMY TUBE EXCHANGE BILATERAL 04/25/2023 IR Nephrogram/Nephrostomy Tube Exchange Bilateral [facility] INTERVENTIONL RAD IR NEPHROSTOMY TUBE PLACEMENT PERCUTANEOUS BILATERAL 02/20/2021 IR Nephrostomy Tube Placement Percutaneous Bilateral [facility] INTERVENTIONL RAD IR NEPHROURETERAL (NU) STENT PLACEMENT/CHECK/CHANGE 07/13/2021 IR Nephroureteral (NU) Stent Placement Check/Change 07/13/2021 Alexis De La Cruz MD [facility] INTERVENTIONLRAD IR NEPHROURETERAL (NU) STENT PLACEMENT/CHECK/CHANGE 10/23/2021 IR Nephroureteral (NU) Stent Placement Check/Change 10/23/2021 Zeferino Rosado MD [facility] INTERVENTIONL RAD IR NEPHROURETERAL (NU) STENT PLACEMENT/CHECK/CHANGE 01/18/2022 IR Nephroureteral (NU) Stent Placement Check/Change 01/18/2022 Guillermo Nice MD [facility] INTERVENTIONLRAD PRO [facility] EBUS GUIDED SAMPL / NODE STATION/STRUX N/A 04/04/2021 BRONCH, W ENDOBRONCHIAL ULTRASOUND (EBUS) GUIDED SAMPLING, 3+ NODES (WRVU 5.21) performed by Alonzo Cevallos MD at [facility] MAIN OR PRO BRONCHOSCOPY, DIAGNOSTIC W LAVAGE N/A 04/04/2021 BRONCHOSCOPY, RIGID OR FLEXIBLE, WITH BRONCHIAL ALVEOLAR LAVAGE (WRVU 2.88) performed by Alonzo Cevallos MD at [facility] MAIN OR Medications: Current Outpatient Medications on File Prior to Visit Medication Sig Dispense Refill prochlorperazine (Compazine) 10 mg tablet Take 1 tablet by mouth every 6 hours as needed for Nausea. 15 tablet 0 adagrasib (Krazati) 200 mg tablet Take 400 mg by mouth 2 times daily for 360 days. (Patient not taking: Reported on 05/13/2023) 120 tablet 11 levothyroxine (Synthroid) 75 mcg tablet Take 1 tablet by mouth daily. 30 tablet 11 traMADoL (Ultram) 50 mg Tablet Take 1 tablet by mouth every 6 hours as needed for Pain. (Patient not taking: Reported on 01/28/2023) 30 tablet 0 acetaminophen (Tylenol) 500 mg Tablet Take 1,000 mg by mouth every 8 hours as needed for Pain. senna (Senokot) 8.6 mg Tablet Take by mouth daily. Current Facility-Administered Medications on File Prior to Visit Medication Dose Route Frequency Provider Last Rate Last Admin sodium chloride 0.9 % (flush) (BD PosiFlush Normal Saline 0.9) flush 10-20 mL 10-20 mL Intravenous Q1 Min PRN Jose Lange MD 20 mL at 05/13/23 1530 Allergies: Patient has no known allergies. Social History and Habits: Social History Socioeconomic History Marital status: Single Spouse name: Not on file Number of children: Not on file Years of education: Not on file Highest education level: Not on file Occupational History Not on file Tobacco Use Smoking status: Former Types: Cigarettes Quit date: 07/04/2014 Years since quittin.8 Smokeless tobacco: Never Vaping Use Vaping Use: [...] Labs: Lab Results Component Value Date WBC 23.5 (H) 04/16/2021 HCT 30.1 (L) 04/16/2021 PLATELET 873 (H) 04/16/2021 BUN 29 (H) 04/16/2021 CREATININE 1.54 (H) 07/13/2021 ALKPHOS 85 04/16/2021 AST 11 04/16/2021 ALBUMIN 3.5 04/16/2021 BILITOT 0.3 04/16/2021 ALT 14 04/16/2021 PROT 8.2 (H) 04/16/2021 K 4.5 04/16/2021 Imaging: Physical Exam: Pending (to be performed in angio the day of procedure) ASA: Pending (to be assessed in angio the day of procedure) Mallampati Class: Pending (to be assessed in angio the day of procedure) Assessment: 72 y.o. female presenting to IR for bilateral nephrostomy catheter exchange. Past medical history is significant for obstructive uropathy and bilateral hydronephrosis secondary to metastatic urothelial carcinoma and primary lung cancer. Last exchanged on 04/25/23. Rapid encrustation requiring exchanges every 6-7 weeks. Reviewed with Attending: Dr. Fenton Plan: Planned procedure: Bilateral Nephrostomy Catheter Exchange Labs to be performed day of procedure: No labs Sedation: No Sedation Prophylactic antibiotic : Cipro Contrast: Omnipaque Additional medications for procedure: Lido jelly Planned access site: Bilateral Nephrostomy Catheters Position: Prone Consent: Completed Medications to discontinue (and days held): None Case Urgency:: G3- Elective Outpatient intervention over14 days 05/17/2023 documented in this encounter Plan of Treatment Upcoming Encounters Date Type Department Care Team (Late st Contact Info) Description 12/08/2023 3:30 PM EDT Office Visit Hematology/Oncology at [address] [phone] Chase Mckay MD [facility] DR HEMATOLOGY [place] [address] documented as of this encounter Visit Diagnoses Not on filedocumented in this encounter Care Teams Switchbox Assembler Relationship Specialty Start Date End Date Tavia Ramirez [place] [address] [place] [address] PCP - General Family Medicine 06/11/22 documented as of this encounter
--- OUTSIDE RECORDS SUMMARY | 2023-11-21 15:55 | XMS_ITS | Encounter Summary ---
Author Organization [facility] [place] [address] Care Team Providers Care Accountant Helper Name Role Phone James Tavia Foster APRN Primary Care Provider [phone] Reason for Visit * Reason Onset Date Comments Questions 05/29/2023 Encounter Details Date Type Department Care Team (Late st Contact Info) Description 05/29/2023 Telephone Hematology/Oncology at [address] [phone] Marci Chen RN Questions Social [...] Telephone Encounter - Marci Chen RN - 05/29/2023 2:40 PM EST Called [email or web address] to let them know pt's medication adagrasib is on hold currently and she has next FUVscheduled 06/09/23. ----- Message from Wendy Cárdenas sent at 05/29/2023 12:41 PM EST ----- Regarding: Resume medication? [email or web address] called in and wanted to confirm if Barb can resume adagrasib (Krazati) 200 mg tablet [[id number]] after her recent hospitalization. Can you please check and confirm at the number below? [email or web address] callback is [phone] documented in this encounter Plan of Treatment Upcoming Encounters Date Type Department Care Team (Late st Contact Info) Description 12/08/2023 3:30 PM EDT Office Visit Hematology/Oncology at [address] [phone] [facility] DR HEMATOLOGY [place] [address] documented as of this encounter Visit Diagnoses Not on filedocumented in this encounter Care Teams Accountant Helper Relationship Specialty Start Date End Date Tavia Ramirez, ALESSANDR[place] [address] [place] [address] PCP - General Family Medicine 06/11/22 documented as of this encounter
--- OUTSIDE RECORDS SUMMARY | 2023-11-21 15:55 | XMS_ITS | Encounter Summary ---
Author Organization [facility] Address [facility] Jose [place] [address] Care Team Providers Care Machine Set Up Operator Name Role Phone James Tavia Foster APRN Primary Care Provider [phone] Encounter Details Date Type Department Care Team (Late st Contact Info) Description 05/13/2023 2:30 PM EST Office Visit Hematology/Oncology at [address] [phone] Jose Lange MD [facility] DR HEMATOLOGY [place] [address] Katherine Sepulveda APRN [facility] [place] [address] Metastatic urothelial carcinoma [C79.10]; 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; Hypothyroidism due to drugs; Anemia, unspecified type Social History Tobacco Use Types Packs/Day Years [...] slept in a penitentiary (including now)? No 03/27/2021 Sex and Gender Information Value Date Recorded Sex Assigned at Not on file Gender Identity Not on file Sexual Orientation Not on file documented as of this encounter Last Filed Vital Signs Vital Sign Reading Time Taken Comments Blood Pressure 134/64 05/13/2023 2:49 PM EST Pulse 81 05/13/2023 2:49 PM EST Temperature 36.2 ??C (97.2 ??F) 05/13/2023 2:49 PM ES T Respiratory Rate 16 05/13/2023 2:49 PM EST Oxygen Saturation 94% 05/13/2023 2:49 PM EST Inhaled Oxygen Concentration - - Weight 73.5 kg (162 lb) 05/13/2023 2:49 PM EST Height 163.8 cm (5' 4.49) 05/13/2023 2:49 PM ES T Body Mass Index 27.39 05/13/2023 2:49 PM EST documented in this encounter Progress Notes * Jose Lange MD - 05/13/2023 2:30 PM EST Images from the original note were not included. Hematology & Medical Oncology [address] [address] Barb returns today to continue treatment for Metastatic urothelial carcinoma and primary lung cancer HPI: Barb Bullard is 72 y.o.F referred by Dr. Arzate for diagnosis [...] distinct lung primary. She was seen by marine tower operator , who recommended rigid bronchoscopy with attempts [...] restarted and she continues on treatment. Interval history 04/22/23 Barb returns today for followup of her metastatic bladder cancer and pembrolizumab infusion. Overall, she feels well. Denies any changes in hearing dyspnea... She continueson pembrolizumab without any issues.. No fever or chills.. She denies any chest pain or cough. She denies any rashes or bruising. Her appetite is good. She has no issues with her bowels. She was seenby Dr. Mckay. She is undergoing somewhat thick mutation testing for consideration of KRAS targeted treatment. PMH: No interval changes since last visit Allergies: No Known Allergies Medications: Your Medications Accurate as of May 13, 2023 3:26 PM. If you have any questions, ask your nurse or doctor. Continued medications, unchanged Dose Details acetaminophen 500 mg tablet Commonly known as: Tylenol Take 1,000 mg by mouth every 8 hours as needed for Pain. 1,000 mg Refills: 0 adagrasib 200 mg tablet Commonly known as: Krazati Take 400 mg by mouth 2 times daily for 360 days. 400 mg Quantity: 120 tablet Refills: 11 levothyroxine 75 mcg tablet Commonly known as: [...] 50 mg Quantity: 30 tablet Refills: 0 Review of Systems: As in interval history PE: General: AAAx3, in NAD. Head: Normocephalic Eyes: nonicteric Neck: No adenopathy Lungs: Clear to auscultation, decreased breath sounds over the left lower lobe Heart: Regular rate and rhythm Abdomen: Soft, non-tender, bowel sounds active all four quadrants, no masses, no organomegaly. Extremities: No swelling Lymph nodes: Cervical, supraclavicular, and axillary nodes normal Vitals BP 134/64 (Patient Position: Sitting) Pulse 81 Temp 36.2 ??C (97.2 ??F) (Temporal) Resp 16 Ht 163.8 cm (5' 4.49) Wt 73.5 kg (162 lb) SpO2 94% BMI 27.39 kg/m?? 04/04/21 ADDENDUM DISCUSSION PD-L1 Immunohistochemistry Study [...] The assay was performed according to the on site wastewater systems technician's instructions using Anti-PD-L1 (22C3, pharmDX) antibody. Electronically signed by: Herbert Ford MD Verified: 04/11/2021 8:14 Pathologist Performed at: [place] [place], [place] Surgical Pathology DIAGNOSIS A - Lung, left lower lobe mass, debulking: - Adenocarcinoma, consistent with lung primary. Electronically signed by: Sana Dowell MD Verified: 04/06/2021 11:16 Pathologist Performed at: [place] [place], [place], [place] DISCUSSION Sections show an invasive, predominantly [...] albumin 3.3, TSH 7.48, free T4 0.77 Imagin03/07/23 PET/CT IMPRESSION 1. Stable FDG avid left [...] lung versus primary lung cancer Treatment: 04/18/21 started pembrolizumab 200 mg IV every 3 weeks [...] of presumably metastatic urothelial carcinoma which include wales based chemotherapy versus immunotherapy. Due to her kidney failure she is not eligible for cisplatin based chemotherapy. It would be hard to manage side effects of carboplatin in pat ients with creatinine clearance less than 30 liters [...] we'll have Ms. Bullard follow-up with Dr. Lange for treatment of her urothelial cell carcinoma [...] February 2021 Her molecular pathology demonstrated somatic K-xiomaar mutation. I do not know if Sotorasib [...] current regimen. She was seen by Dr. Nely jorgeith recommendation of continuation pembrolizumab and consideration of [...] PET scan shows some FDG avid LN but because she probably had COVID at the [...] today and she will meet with Dr. Lange for her next visit to review results [...] is pending. Will continue pembrolizumab for now. # Low back pain left side pain- [...] up with nephrology. Continues with tube exchange [id number]. # Anemia- mild- asymptomatic. Continue to monitor Plan: 1 Proceed with C34 Pembrolizumab today as scheduled. 2. Continue levothyroxine 75 mcg a day 3. F/u with Dr. Mckay 4. Next visit with MD with CBC, CMP, TSH, free T4 and pembrolizumab infusion to in 3 weeks. Barb voiced understanding of the plan and was given an opportunity to ask questions which I answered to the best of my ability. Barb understands she can call the clinic between visits with any questions/concerns or new symptoms. 30 minutes were spent on date of visit, including non-face to face time. Hematology & Medical Oncology [place] [id number] Barb returns today to continue treatment for Metastatic urothelial carcinoma and primary lung cancer HPI: Barb Bullard is 72 y.o.F referred by Dr. Arzate for diagnosis [...] distinct lung primary. She was seen by marine tower operator , who recommended rigid bronchoscopy with attempts [...] restarted and she continues on treatment. Interval history 04/22/23 Barb returns today for followup of her metastatic bladder cancer and pembrolizumab infusion. Overall, she feels well. Denies any changes in hearing dyspnea... She continueson pembrolizumab without any issues.. No fever or chills.. She denies any chest pain or cough. She denies any rashes or bruising. Her appetite is good. She has no issues with her bowels. She was seenby Dr. Mckay. She is undergoing somewhat thick mutation testing for consideration of KRAS targeted treatment. PMH: No interval changes since last visit Allergies: No Known Allergies Medications: Your Medications Accurate as of May 13, 2023 3:26 PM. If you have any questions, ask your nurse or doctor. Continued medications, unchanged Dose Details acetaminophen 500 mg tablet Commonly known as: Tylenol Take 1,000 mg by mouth every 8 hours as needed for Pain. 1,000 mg Refills: 0 adagrasib 200 mg tablet Commonly known as: Krazati Take 400 mg by mouth 2 times daily for 360 days. 400 mg Quantity: 120 tablet Refills: 11 levothyroxine 75 mcg tablet Commonly known as: [...] 50 mg Quantity: 30 tablet Refills: 0 Review of Systems: As in interval history PE: General: AAAx3, in NAD. Head: Normocephalic Eyes: nonicteric Neck: No adenopathy Lungs: Clear to auscultation, decreased breath sounds over the left lower lobe Heart: Regular rate and rhythm Abdomen: Soft, non-tender, bowel sounds active all four quadrants, no masses, no organomegaly. Extremities: No swelling Lymph nodes: Cervical, supraclavicular, and axillary nodes normal Vitals BP 134/64 (Patient Position: Sitting) Pulse 81 Temp 36.2 ??C (97.2 ??F) (Temporal) Resp 16 Ht 163.8 cm (5' 4.49) Wt 73.5 kg (162 lb) SpO2 94% BMI 27.39 kg/m?? 04/04/21 ADDENDUM DISCUSSION PD-L1 Immunohistochemistry Study [...] The assay was performed according to the on site wastewater systems technician's instructions using Anti-PD-L1 (22C3, pharmDX) antibody. Electronically signed by: Herbert Ford MD Verified: 04/11/2021 8:14 Pathologist Performed at: [place] [place] [place], [place] Surgical Pathology DIAGNOSIS A - Lung, left lower lobe mass, debulking: - Adenocarcinoma, consistent with lung primary. Electronically signed by: Sana Dowell MD Verified: 04/06/2021 11:16 Pathologist Performed at: [place] [place] [place], [place], [place] DISCUSSION Sections show an invasive, predominantly [...] albumin 3.3, TSH 7.48, free T4 0.77 Imagin03/07/23 PET/CT IMPRESSION 1. Stable FDG avid left [...] lung versus primary lung cancer Treatment: 04/18/21 started pembrolizumab 200 mg IV every 3 weeks [...] of presumably metastatic urothelial carcinoma which include wales based chemotherapy versus immunotherapy. Due to her kidney failure she is not eligible for cisplatin based chemotherapy. It would be hard to manage side effects of carboplatin in pat ients with creatinine clearance less than 30 liters [...] we'll have Ms. Bullard follow-up with Dr. Lange for treatment of her urothelial cell carcinoma [...] current regimen. She was seen by Dr. Nely jorgeith recommendation of continuation pembrolizumab and consideration of [...] PET scan shows some FDG avid LN but because she probably had COVID at the [...] today and she will meet with Dr. Lange for her next visit to review results [...] consider putting her back on checkpoint inhibitor # Low back pain left side pain- [...] up with nephrology. Continues with tube exchange [id number]. # Anemia- mild- asymptomatic. Continue to monitor Plan: 1 D/c Pembrolizumab 2. Continue levothyroxine 75 mcg a day 3. F/u with Dr. Mckay 4. Next visit with in about 3-4 months after her next restaging scan. Barb voiced understanding of the plan and [...] 3:30 PM EDT Office Visit Hematology/Oncology at [address] [phone] Chase Mckay MD [facility] [address] HEMATOLOGY [place] [address] documented as of this encounter Visit Diagnoses Diagnosis Metastatic urothelial carcinoma [C79.10] Secondary malignant neoplasm of other urinary organs 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 Malignant neoplasm of lower lobe, bronchus, or lung Hypothyroidism due to drugs Other iatrogenic hypothyroidism Anemia, unspecified type documented in this encounter Care Teams Machine Set Up Operator Relationship Specialty Start Date End Date Tvaia Ramirez [place] [address] [place] [address] PCP - General Family Medicine 06/11/22 documented as of this encounter
--- OUTSIDE RECORDS SUMMARY | 2023-11-21 15:55 | XMS_ITS | Encounter Summary ---
Author Organization [facility] Address [facility] [place] [address] Care Team Providers Care Racing Board Marker Name Role Phone Tavia Ramirez APRN Primary Care Provider Reason for Visit * Reason Comments IV Medication Encounter Details Date Type Department Care Team (Late st Contact Info) Description 06/09/2023 2:00 PM EST Infusion Hematology Oncology at [address] [phone] Urothelial cancer; Metastatic urothelial carcinoma; Primary malignant neoplasm of [...] as of this encounter Progress Notes * Chalino Bourne, RN - 06/09/2023 2:00 PM EST INFUSION THERAPY ADMINISTRATION NOTES DIAGNOSIS: Metastatic urothelial cancer and primary lung cancer Hydration REASON FOR VISIT: To receive planned chemotherapy. SUBJECTIVE: Barb offers no complaints. OBJECTIVE: Seen by provider. LAB DATA: Done today at [facility] IV ACCESS: Port accessed off site. Flushes readily with brisk blood return. Pre administration: Chemotherapy orders independently verified for drug name, route, and dosage per patient's height, weight and BSA by CHALINO BOURNE, RN and Staff Pharmacist(s). REACTIONS (DESCRIPTION, TIME, INTERVENTION AND EFFECTIVENESS) none ASSESSMENT: Barb awake, alert and tolerated well. Port flushed with 20 cc's of NS and de-accessed. 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 Malignant neoplasm of lower lobe, bronchus, or lung documented in this encounter Administered Medications Inactive Administered Medications - up to 3 most recent administrations Medication Order MAR Action Action Date Dose Rate Site sodium chloride 0.9 % (flush) (BD PosiFlush Normal Saline 0.9) flush 10-20 mL 10-20 mL, Intravenous, EVERY 1 MIN PRN, Starting on Fri06/09/23 at 1610, Until Fri06/09/23 at 1812, Appointment Clerk, Routine Given 06/09/2023 4:10 PM EST 20 mLs sodium chloride 0.9% infusion 500 mL/hr, Intravenous, CONTINUOUS, Starting on Fri06/09/23 at 1415, Until Fri06/09/23 at 1812, Please infuse 1 L of normal saline of 1-2 hours New Bag 06/09/2023 2:00 PM EST 500 mL/hr 500 mL/hr documented in this encounter Care Teams Racing Board Marker Relationship Specialty Start Date End Date Tavia Ramirez, ALESSANDRO [address] [place] [address] PCP - General Family Medicine 06/11/22 documented as of this encounter
--- OUTSIDE RECORDS SUMMARY | 2023-11-21 15:55 | XMS_ITS | Encounter Summary ---
Author Organization [facility] Address [facility] [place] [address] Care Team Providers Care Test Preparer Name Role Phone James Tavia Foster APRN Primary Care Provider [phone] Encounter Details Date Type Department Care Team (Latest Contact Info) Description 04/30/2023 Travel Social History Tobacco Use Types Packs/Day [...] [place] [facility] (including now)? No 03/27/2021 Sex and Gender Information Value Date Recorded Sex Assigned at Not on file Gender Identity Not on file Sexual Orientation Not on file documented as of this encounter Plan of Treatment Upcoming Encounters Date Type Department Care Team (Late st Contact Info) Description 12/08/2023 3:30 PM EDT Office Visit Hematology/Oncology at [address] [phone] Chase Mckay MD [facility] [address] [place] [address] documented as of this encounter Visit Diagnoses Not on filedocumented in this encounter Care Teams Test Preparer Relationship Specialty Start Date End Date Tavia Ramirez APR[place] [place] [address] PCP - General Family Medicine 06/11/22 documented as of this encounter
--- OUTSIDE RECORDS SUMMARY | 2023-11-21 15:55 | XMS_ITS | Encounter Summary ---
Author Organization [facility] Address [facility] [place] [address] Care Team Providers Care Case Management Specialist Name Role Phone Tavia Ramirez APRN Primary Care Provider [phone] Reason for Visit * Reason Onset Date Comments Other 07/07/2023 Encounter Details Date Type Department Care Team (Late st Contact Info) Description 07/07/2023 Telephone Hematology/Oncology at [address] [phone] Pamella East RN Other Social History Tobacco Use Types Packs/Day Years [...] Telephone Encounter - Pamella East RN - 07/07/2023 8:34 AM EDT Caller: Barb Relationship: Self Clarified Two Patient Identifiers: [x] Diagnosis:Lung cancer/bladder cancer Treatment: adagrasib 400 mg a day Reason for Call: stomach pain, back pain, urine looks darker than usually Assessment: Pt states she has been constipated, no fever or chills. Urine looks darker to her and has been having some stomach and back pain. She feels better right now then she did earlier. Recommendations/Plan: Reviewed with Byron Kamara NP, she would like Barb to see her PCP barb verbalized understanding of instructions and agreement with plan. Reminded Barb to call backwith any questions/concerns. Select Specific Decision Support Tool Used: None available, provider to review Name of Guideline/Protocol Used: Byron Kamara SERVICE DESK ASSOCIATE documented in this encounter Plan of Treatment Upcoming Encounters Date Type Department Care Team (Late st Contact Info) Description 12/08/2023 3:30 PM EDT Office Visit Hematology/Oncology at [address] [phone] Chase Mckay MD [facility] HEMATOLOGY [place] [address] documented as of this encounter Visit Diagnoses Not on filedocumented in this encounter Care Teams Case Management Specialist Relationship Specialty Start Date End Date Tavia Ramirez APRN [address] [place] [address] PCP - General Family Medicine 06/11/22 documented as of this encounter
--- OUTSIDE RECORDS SUMMARY | 2023-11-21 15:55 | XMS_ITS | Encounter Summary ---
Author Organization [facility] Address [facility] [place] [address] Care Team Providers Care Oil And Gas Exploration Technician Name Role Phone Tavia Ramirez APRN Primary Care Provider Reason for Visit * Reason Onset Date Comments Other 06/02/2023 Still off new me d Encounter Details Date Type Department Care Team (Late st Contact Info) Description 06/02/2023 Telephone Hematology/Oncology at [address] [phone] Pamella East RN Other (Still off new med) Social History Tobacco Use Types Packs/Day Years [...] in a residential (including now)? No 03/27/2021 Sex and Gender Information Value Date Recorded Sex Assigned at Not on file Gender Identity Not on file Sexual Orientation Not on file documented as of this encounter Miscellaneous Notes * Telephone Encounter - Pamella East RN - 06/02/2023 4:19 PM EST Pt started her new drug Krazati 200 mg tab , taking 400 mg bid. She started having diarrhea about 2-3 days later. She tried using imodium it did not help. She also experienced nausea vomiting tried copazine with minimal relief. She ended up going to ER at [facility] on 05/27/23 and got hydrated and potassium replacement. She stopped Krazati that day. She is feeling somewhat better. Diarrhea gone having normal bowel movements. Her appetite is not great. She is having leg cramping. She is drinking cranberry juice and gatorade. [facility] is wondering what next step is. Dr. Mckay would like her to continue to hydrate , have labs in a week and see him after. He will discuss next steps and possibly going back on med at half dose. Pt agrees with plan. documented in this encounter Plan of Treatment Upcoming Encounters Date Type Department Care Team (Late st Contact Info) Description 12/08/2023 3:30 PM EDT Office Visit Hematology/Oncology at [address] [phone] Chase Mckay MD [facility] HEMATOLOGY AND [place] [address] documented as of this encounter Visit Diagnoses Not on filedocumented in this encounter Care Teams Oil And Gas Exploration Technician Relationship Specialty Start Date End Date Tavia Ramirez, ALESSANDRO [facility] [address] [place] [address] PCP - General Family Medicine 06/11/22 documented as of this encounter
--- OUTSIDE RECORDS SUMMARY | 2023-11-21 15:55 | XMS_ITS | Encounter Summary ---
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
--- OUTSIDE RECORDS SUMMARY | 2023-11-21 15:55 | XMS_ITS | Encounter Summary ---
Author Organization [facility] [place] [address] Care Team Providers Care Rendering Equipment Tender Name Role Phone Tavia Ramirez ALESSANDRO Primary Care Provider [phone] Encounter Details Date Type Department Care Team (Late st Contact Info) Description 07/09/2023 [place] [phone] Jose Miguel Rodriguez MD [facility] DR [place] [address] Social History Tobacco Use Types Packs/Day Years [...] 3:30 PM EDT Office Visit Hematology/Oncology at [address] [phone] Chase Mckay MD [facility] DR HEMATOLOGY [place] [address] documented as of this encounter Visit Diagnoses Not on filedocumented in this encounter Care Teams Rendering Equipment Tender Relationship Specialty Start Date End Date Tavia Ramirez [place] [address] [place] [address] PCP - General Family Medicine 06/11/22 documented as of this encounter
--- OUTSIDE RECORDS SUMMARY | 2023-11-21 15:55 | XMS_ITS | Encounter Summary ---
Author Organization [facility] [place] [address] Care Team Providers Care Continuous Improvement Director Name Role Phone Tavia Ramirez ALESSANDRO Primary Care Provider [phone] Encounter Details Date Type Department Care Team (Late st Contact Info) Description 05/06/2023 Orders Only [place] [phone] Chase Mckay MD [facility] DR HEMATOLOGY AND ONCOLOGY [place] [id number] Social History Tobacco Use Types Packs/Day Years [...] slept in a detention (including now)? No 03/27/2021 Sex and Gender Information Value Date Recorded Sex Assigned at Not on file Gender Identity Not on file Sexual Orientation Not on file documented as of this encounter Plan of Treatment Upcoming Encounters Date Type Department Care Team (Late st Contact Info) Description 12/08/2023 3:30 PM EDT Office Visit Hematology/Oncology at [address] [address] Chase Mckay MD [facility] DR [place] [address] documented as of this encounter Visit Diagnoses Not on filedocumented in this encounter Care Teams Continuous Improvement Director Relationship Specialty Start Date End Date Tavia Ramirez APRN [address] [place] [address] PCP - General Family Medicine 06/11/22 documented as of this encounter
--- OUTSIDE RECORDS SUMMARY | 2023-11-21 15:56 | XMS_ITS | Encounter Summary ---
Author Organization [facility] [place] [address] Care Team Providers Care Plastic Tile Layer Name Role Phone Tavia Ramirez APRN Primary Care Provider [phone] Reason for Visit * Reason Comments Chemotherapy * Treatment/Therapy Plan Authorization (Routine) - Closed Specialty Diagnoses / Procedures Referred By Contac t Referred To Contact Hematology and Oncology Diagnoses Metastatic urothelial carcinoma Abnormal thyroid function test Procedures [id number] Jose Barnhart MD [address] [place] [address] DR [place] [address] Jose Lange MD [address] [place] [address] DR [place] [address] Referral ID Status Reason Start Date Expiration Date Visits Re quested Visits Authorized [id number] Closed 04/28/2022 06/24/2023 99 99 Encounter Details Date Type Department Care Team (Late st Contact Info) Description 01/07/2023 9:00 AM EDT Infusion Hematology Oncology at [address] [phone] Metastatic urothelial carcinoma Social History Tobacco Use [...] in a care home (including now)? No 03/27/2021 Sex and Gender Information Value Date Recorded Sex Assigned at Not on file Gender Identity Not on file Sexual Orientation Not on file documented as of this encounter Progress Notes * Chalino Bourne, RN - 01/07/2023 9:00 AM EDT INFUSION THERAPY ADMINISTRATION NOTES DIAGNOSIS: Metastatic urothelial cancer and primary lung cancer CYCLE #: Cycle 29, Day 1 - Pembrolizumab REASON FOR VISIT: To receive planned chemotherapy. SUBJECTIVE: Barb offers no complaints. OBJECTIVE: Seen by provider. Ready to treat. LAB DATA: Done today at [facility] and adequate for treatment. IV ACCESS: Port accessed off site. Flushes readily with brisk blood return. Pre administration: Chemotherapy orders independently verified for drug name, route, and dosage per patient's height, weight and BSA by CHALINO BOURNE, RN and Staff Pharmacist(s). REACTIONS (DESCRIPTION, TIME, INTERVENTION AND EFFECTIVENESS) none ASSESSMENT: Barb awake, alert and tolerated treatment well. Port flushed with 20 cc's of NS and 500 units of heparin and de-accessed. PLAN: Return to clinic in three weeks. documented in this encounter Plan of Treatment Upcoming Encounters Date Type Department Care Team (Late st Contact Info) Description 12/08/2023 3:30 PM EDT Office Visit Hematology/Oncology at [address] [phone] Chase Mckay MD [facility] DR HEMATOLOGY [place] [address] documented as of this encounter Visit Diagnoses Diagnosis Metastatic urothelial carcinoma Secondary malignant neoplasm of other urinary organs documented in this encounter Administered Medications Inactive Administered Medications - up to 3 most recent administrations Medication Order MAR Action Action Date Dose Rate Site pembrolizumab (Keytruda) 200 mg in sodium chloride 0.9% 108 mL infusion 200 mg, Intravenous, ONCE, 1 dose, On 01/07/23 at 1045, Administer over 30 Minutes, Flush line with NS after each dose., This agent is restricted to outpatient use. Is this drug being given as an outpatient? Yes New Bag 01/07/2023 10:19 AM EDT 200 mg 21 6 mL/hr documented in this encounter Care Teams Plastic Tile Layer Relationship Specialty Start Date End Date Tavia Ramirez APRN [address] [place] [address] PCP - General Family Medicine 06/11/22 documented as of this encounter
--- OUTSIDE RECORDS SUMMARY | 2023-11-21 15:56 | XMS_ITS | Encounter Summary ---
Author Organization [facility] Address [facility] [place] [address] Care Team Providers Care Orthopedic Podiatrist Name Role Phone Tavia Ramirez APRN Primary Care Provider [phone] Reason for Visit * Reason Onset Date Comments Medication Refill 02/12/2023 Levothyroxine Encounter Details Date Type Department Care Team (Late st Contact Info) Description 02/12/2023 Telephone Hematology/Oncology at [address] [phone] Jose Lange MD [facility] [place] [address] Medication Refill (Levothyroxine ) Social History Tobacco Use Types Packs/Day [...] 3:30 PM EDT Office Visit Hematology/Oncology at [address] [phone] Chase Mckay MD [facility] [place] [address] documented as of this encounter Visit Diagnoses Diagnosis Metastatic urothelial carcinoma Secondary malignant neoplasm of other urinary organs documented in this encounter Care Teams Orthopedic Podiatrist Relationship Specialty Start Date End Date Tavia Ramirez APRN [address] [place] [address] PCP - General Family Medicine 06/11/22 documented as of this encounter
--- OUTSIDE RECORDS SUMMARY | 2023-11-21 15:56 | XMS_ITS | Encounter Summary ---
Author Organization [facility] [place] [address] Care Team Providers Care Manager Division Name Role Phone Tavia Ramirez APRN Primary Care Provider [phone] Reason for Visit * Reason Comments Chemotherapy Cycle 31, Day 1; Pem bro * Treatment/Therapy Plan Authorization (Routine) - Closed Specialty Diagnoses / Procedures Referred By Contac t Referred To Contact Hematology and Oncology Diagnoses Metastatic urothelial carcinoma Abnormal thyroid function test Procedures [id number] Jose Barnhart MD [address] [place] [address] [place] [address] Jose Lange MD [address] [place] [address] [place] [address] Referral ID Status Reason Start Date Expiration Date Visits Re quested Visits Authorized [id number] Closed 04/28/2022 06/24/2023 99 99 Encounter Details Date Type Department Care Team (Late st Contact Info) Description 02/18/2023 1:30 PM EDT Infusion Hematology Oncology at [address] [phone] Metastatic urothelial carcinoma Social History Tobacco Use [...] as of this encounter Progress Notes * Leora Roper, RN - 02/18/2023 1:30 PM EDT INFUSION THERAPY ADMINISTRATION NOTES DIAGNOSIS: Metastatic urothelial cancer and primary lung cancer CYCLE #: , Day 1 - Pembrolizumab REASON FOR VISIT: To receive planned chemotherapy. SUBJECTIVE: Barb offers no complaints. OBJECTIVE: Seen by provider. Ready to treat. LAB DATA: Done today at [facility] and adequate for treatment. IV ACCESS: Port accessed off site. Flushes readily with brisk blood return. Pre administration: Chemotherapy orders independently verified for drug name, route, and dosage per patient's height, weight and BSA by Leora Roper, RN and Staff Pharmacist(s). REACTIONS (DESCRIPTION, TIME, [...] 3:30 PM EDT Office Visit Hematology/Oncology at [address] [phone] Chase Mckay MD [facility] DR [place]EMATOLOGY [place] [address] documented as of this encounter Visit Diagnoses Diagnosis Metastatic urothelial carcinoma Secondary malignant neoplasm of other urinary organs documented in this encounter Administered Medications Inactive Administered Medications - up to 3 most recent administrations Medication Order MAR Action Action Date Dose Rate Site heparin (pf) (porcine) (100 units/mL) flush 5 mL syringe 500 Units 500 Units, Intravenous, ONCE PRN, Starting on Fri02/18/23 at 1322, Until Fri02/18/23 at 1843, Line Care, Refer to Intravenous (IV) Procedure: Accessing Implanted Vascular Access Devices (014) procedure and/or Intravenous (IV) Job Aid: Adult Flushing & Catheter Care (3579) job aid for additional information regarding guidelines and administration., Routine Given 02/18/2023 2:30 PM EDT 500 Units pembrolizumab (Keytruda) 200 mg in sodium chloride 0.9% 108 mL infusion 200 mg, Intravenous, ONCE, 1 dose, On Fri02/18/23 at 1445, Administer over 30 Minutes, Flush line with NS after each dose., This agent is restricted to outpatient use. Is this drug being given as an outpatient? Yes New Bag 02/18/2023 1:57 PM EDT 200 mg 216 mL/hr sodium chloride 0.9 % (flush) (BD PosiFlush Normal Saline 0.9) flush 5-20 mL 5-20 mL, Intravenous, EVERY 1 MIN PRN, Starting on Fri02/18/23 at 1322, Until Fri02/18/23 at 1843, Line Care, Flush pertains to all indwelling lines. Flush per protocol found in the job aid using the link provided on this medication record. Refer to Intravenous (IV) Job Aid: Adult Flushing & Catheter Care (7821) job aid for additional information regarding guidelines and administration., Routine Given 02/18/2023 2:30 PM EDT 20 mLs documented in this encounter Care Teams Manager Division Relationship Specialty Start Date End Date Tavia Ramirez [place] [address] [place] [address] PCP - General Family Medicine 06/11/22 documented as of this encounter
--- OUTSIDE RECORDS SUMMARY | 2023-11-21 15:56 | XMS_ITS | Encounter Summary ---
Author Organization [facility] Address [facility] [place] [address] Care Team Providers Care Unit Tender Name Role Phone James Tavia Foster APRN Primary Care Provider [phone] Encounter Details Date Type Department Care Team (Latest Contact Info) Description 04/07/2023 Travel Social History Tobacco Use Types Packs/Day [...] PM EDT Office Visit Hematology/Oncology at [address] [phone] Chase Mckay MD [facility] DR HEMATOLOGY [place] [address] documented as of this encounter Visit Diagnoses Not on filedocumented in this encounter Care Teams Unit Tender Relationship Specialty Start Date End Date Tavia Ramirez [place] [place] [address] PCP - General Family Medicine 06/11/22 documented as of this encounter
--- OUTSIDE RECORDS SUMMARY | 2023-11-21 15:56 | XMS_ITS | Encounter Summary ---
Author Organization [facility] Address [facility] [address] Care Team Providers Care Mcat Tutor Name Role Phone James Tavia Foster APRN Primary Care Provider [phone] Encounter Details Date Type Department Care Team (Latest Contact Info) Description 02/12/2023 Travel Social History Tobacco Use Types Packs/Day [...] PM EDT Office Visit Hematology/Oncology at [address] [phone] Chase Mckay MD [facility] DR [place] [address] documented as of this encounter Visit Diagnoses Not on filedocumented in this encounter Care Teams Mcat Tutor Relationship Specialty Start Date End Date Tavia Ramirez [place] [address] [address] [place] [address] PCP - General Family Medicine 06/11/22 documented as of this encounter
--- OUTSIDE RECORDS SUMMARY | 2023-11-21 15:56 | XMS_ITS | Encounter Summary ---
Author Organization [facility] Address [facility] [place] [place] [address] Care Team Providers Care Shaft Repairer Name Role Phone James Tavia Foster APRN Primary Care Provider [phone] Encounter Details Date Type Department Care Team (Latest Contact Info) Description 03/06/2023 Travel Social History Tobacco Use Types Packs/Day [...] PM EDT Office Visit Hematology/Oncology at [address] [phone] Chase Mckay MD [facility] DR [place] [address] documented as of this encounter Visit Diagnoses Not on filedocumented in this encounter Care Teams Shaft Repairer Relationship Specialty Start Date End Date Tavia Ramirez [place] [address] [place] [address] PCP - General Family Medicine 06/11/22 documented as of this encounter
--- OUTSIDE RECORDS SUMMARY | 2023-11-21 15:56 | XMS_ITS | Encounter Summary ---
Author Organization [facility] [place] [address] Care Team Providers Care Printed Circuit Board Reworker Name Role Phone Tavia Ramirez ALESSANDRO Primary Care Provider [phone] Encounter Details Date Type Department Care Team (Late st Contact Info) Description 03/11/2023 Orders Only Hematology [place] [phone] Jose Lange MD [facility] DR HEMATOLOGY [place] [address] Social History Tobacco Use Types Packs/Day Years [...] PM EDT Office Visit Hematology/Oncology at [address] [phone] Chase Mckay MD [facility] DR HEMATOLOGY [place] [address] documented as of this encounter Visit Diagnoses Not on filedocumented in this encounter Care Teams Printed Circuit Board Reworker Relationship Specialty Start Date End Date Tavia Ramirez [place] [place] [address] PCP - General Family Medicine 06/11/22 documented as of this encounter
--- OUTSIDE RECORDS SUMMARY | 2023-11-21 15:56 | XMS_ITS | Encounter Summary ---
Author Organization [facility] Address [facility] [place] [address] Care Team Providers Care Property Management Specialist Name Role Phone James Tavia Foster APRN Primary Care Provider Encounter Details Date Type Department Care Team (Latest Contact Info) Description 01/27/2023 Travel Social History Tobacco Use Types Packs/Day [...] PM EDT Office Visit Hematology/Oncology at [address] [phone] Chase Mckay MD [facility] DR HEMATOLOGY [place] [address] documented as of this encounter Visit Diagnoses Not on filedocumented in this encounter Care Teams Property Management Specialist Relationship Specialty Start Date End Date Tavia Ramirez [place] [place] [address] PCP - General Family Medicine 06/11/22 documented as of this encounter
--- OUTSIDE RECORDS SUMMARY | 2023-11-21 15:56 | XMS_ITS | Encounter Summary ---
[place] [address] Care Team Providers Care Ore Grader Name Role Phone James Tavia Foster APRN Primary Care Provider [phone] Reason for Referral * Diagnostic Test (Routine) - Closed Specialty Diagnoses / Procedures Referred By Contac t Referred To Contact Radiology Diagnoses Metastatic urothelial carcinoma 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 Procedures NM PET CT Skull Base to Mid-thigh Jose Lange MD [facility] [address] [place] [address] [place] [address] Referral ID Status Reason Start Date Expiration Date V isits Requested Visits Authorized [id number] Closed Specialty Service Requested 01/28/2023 07/29/2024 1 2 Reason for Visit * Diagnostic Test (Routine) - Closed Specialty Diagnoses / Procedures Referred By Contac t Referred To Contact Radiology Diagnoses Metastatic urothelial carcinoma 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 Procedures NM PET CT Skull Base to Mid-thigh Jose Lange MD [facility] [address] [place] [address] [place] [address] Referral ID Status Reason Start Date Expiration Date V isits Requested Visits Authorized [id number] Closed Specialty Service Requested 01/28/2023 07/29/2024 1 2 Encounter Details Date Type Department Care Team (Latest Contact Info) Description 03/07/2023 1:40 PM EST - 03/07/2023 11:59 PM EST Hospital Encounter Nuclear Medicine at [facility] [place] [address] Jose Lange MD [facility] [address] [place] [address] Metastatic urothelial carcinoma; Primary malignant neoplasm of [...] place to sleep or slept in a nursing home (including now)? No 03/27/2021 Sex and Gender Information Value Date Recorded Sex Assigned at Not on file Gender Identity Not on file Sexual Orientation Not on file documented as of this encounter Medications at Time of Discharge Medication Sig Dispensed Refills Start Date End Date levothyroxine (Synthroid) 75 mcg tabletIndications:Metast atic urothelial carcinoma Take 1 tablet by mouth daily. 30 tablet 11 02/12/2023 acetaminophen (Tylenol) 500 mg Tablet Take 1,000 mg by mouth every 8 hours as needed for Pain. senna (Senokot) 8.6 mg Tablet Take 1 tablet by mouth daily as needed for Constipation. traMADoL (Ultram) 50 mg TabletIndications:Metast atic urothelial carcinoma Take 1 tablet by mouth every 6 hours as needed for Pain. 30 tablet 04/23/2022 08/10/2023 prochlorperazine (Compazine) 10 mg Tablet Take 1 tablet by mouth every 6 hours as needed for Nausea. 15 tablet 04/18/2021 05/13/2023 documented as of this encounter Plan of Treatment Upcoming Encounters Date Type Department Care Team (Late st Contact Info) Description 12/08/2023 3:30 PM EDT Office Visit Hematology/Oncology at [address] [phone] Chase Mckay MD [facility] [address] [place] [address] documented as of this encounter Procedures Procedure Name Priority Date/Time Associated Diagnosis Comments NM PET CT SKULL BASE TO MID-THIGH ([facility]) Routine 03/07/2023 3:23 PM EST Metastatic urothelial carcinoma 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 documented in this encounter Results * NM PET CT Skull Base to Mid-thigh (03/07/2023 3:23 PM EST) Anatomical Region Laterality Modality Positron Emissio n Tomography (PET) Impressions 03/10/2023 2:59 PM EST 1. ??Stable FDG avid left lower lobe lung mass extending to the left hilum with large necrotic component, consistent with malignancy. 2. ??New FDG avid bilateral pleural-based lung nodules, may be inflammatory or metastatic. 3. ??Increased size and metabolic activity of multiple mediastinal and right hilar nodes. These may represent anthony metastases or reactive nodes. 4. ??Increased metabolic activity of the left para-aortic node. This may represent anthony metastasis or reactive node. 5. ??Slightly decreased activity of the left external iliac and right obturator nodes. These are favored to represent treated anthony metastases. 6. ??Stable lymphadenopathy in the neck, with slightly decreased activity of bilateral axillary and inguinal nodes. These are favored to be reactive. Preliminary report signed by: Eren Patel MD at 03/10/2023 2:26 PM I have personally reviewed the image(s) and the resident's interpretation and agree with the findings, Billy Anderson MD at 03/10/2023 2:59 PM Thank you for letting us participate in the care of this patient. ??If you are a health care provider and have any questions regarding this report, please contact the number below. ??For patients who have questions please contact the health patient care associate that requested your imaging first. ? Electronically signed by: Billy Anderson MD, [facility] ([phone]), at 03/10/2023 2:59 PM Narrative 03/10/2023 2:59 PM EST EXAMINATION: NM PET CT STANDARD SKULL BASE TO MID-THIGH CLINICAL HISTORY: Urologic cancer, assess treatment response - Include more detail below Restaging of metastatic urothelial carcinoma and primary lung cancer TECHNIQUE: Following IV injection of 12-wrileo-1-deoxyglucose (FDG) a standard uptake of approximately 60 minutes, a noncontrast CT scan followed by a PET scan were acquired from the base of the skull to mid thighs. The noncontrast CT was used for anatomic localization and photon attenuation correction of the PET scan. Blood glucose level: 85 (mg/dL) FDG dose: 10.5 mCi COMPARISON: PET/CT 10/10/2022 FINDINGS: HEAD/NECK: Multiple FDG avid nodes are seen in the neck, including the bilateral levels 1B, 2A, and 2B as well as right level 3. This is stable from prior exam. Unchanged FDG avid enlarged left lingual tonsil, likely inflammatory. CHEST: Stable size and metabolic activity of FDG avid left lower lobe lung mass, measuring 6.3 x 7.7 x 13.8 cm with large necrotic component. The mass extends into the left hilum. New bilateral mildly FDG avid pleural-based nodules, largest 1.7 cm on left. Increased size and metabolic activity of nodes in the prevascular, right and left lower paratracheal, subcarinal, and right hilar regions, largest being an FDG avid subcarinal node now measuring 1.1 cm short axis. Interval decrease in size and metabolic activity of now mildly FDG avid bilateral axillary nodes. Right chest Mediport present with catheter tip terminating at the superior cavoatrial junction. Streaky and groundglass mildly FDG avid opacities are seen throughout both lungs with diffuse bronchial wall thickening, most prominent in the lower lobes. The left lower lobe bronchus remains occluded. Centrilobular emphysema. These findings are stable from prior study. ABDOMEN/PELVIS: Slight interval decrease in FDG avidity of bilateral inguinal nodes, largest being left measuring 1.1 cm short axis. The previously described right obturator node and left external iliac node are slightly decreased in FDG avidity. Interval increase in FDG avidity of left para-aortic lymph node (axial image 141). Unchanged bilateral nephrostomy tubes. The left ureter remains dilated. No abnormal metabolic activity is seen in the region of the bladder. SKELETON/EXTREMITIES: There is diffusely increased metabolic activity throughout the bone marrow. Procedure Note Billy Anderson MD - 03/10/2023 EXAMINATION: NM PET CT STANDARD SKULL BASE TO MID-THIGH CLINICAL HISTORY: Urologic cancer, assess treatment response - Includemore detail below Restaging of metastatic urothelial carcinoma and primary lung cancer TECHNIQUE: Following IV injection of 05-iutpmn-6-deoxyglucose (FDG) astandard uptake of approximately 60 minutes, a noncontrast CT scan followed by aPET scan were acquired from the base of the skull to mid thighs. The noncontrast CTwas used for anatomic localization and photon attenuation correction of thePET scan. Blood glucose level: 85 (mg/dL) FDG dose: 10.5 mCi COMPARISON: PET/CT 10/10/2022 FINDINGS: HEAD/NECK: Multiple FDG avid nodes are seen in the neck, including the bilaterallevels 1B, 2A, and 2B as well as right level 3. This is stable from prior exam. Unchanged FDG avid enlarged left lingual tonsil, likely inflammatory. CHEST: Stable size and metabolic activity of FDG avid left lower lobe lungmass, measuring 6.3 x 7.7 x 13.8 cm with large necrotic component. The massextends into the left hilum. New bilateral mildly FDG avid pleural-based nodules, largest 1.7 cm onleft. Increased size and metabolic activity of nodes in the prevascular, rightand left lower paratracheal, subcarinal, and right hilar regions, largestbeing an FDG avid subcarinal node now measuring 1.1 cm short axis. Interval decrease in size and metabolic activity of now mildly FDG avid bilateral axillary nodes. Right chest Mediport present with catheter tip terminating at thesuperior cavoatrial junction. Streaky and groundglass mildly FDG avid opacities areseen throughout both lungs with diffuse bronchial wall thickening, mostprominent in the lower lobes. The left lower lobe bronchus remains occluded.Centrilobular emphysema. These findings are stable from prior study. ABDOMEN/PELVIS: Slight interval decrease in FDG avidity of bilateral inguinal nodes,largest being left measuring 1.1 cm short axis. The previously described rightobturator node and left external iliac node are slightly decreased in FDG avidity. Interval increase in FDG avidity of left para-aortic lymph node (axialimage 141). Unchanged bilateral nephrostomy tubes. The left ureter remains dilated. No abnormal metabolic activity is seen in the region of the bladder. SKELETON/EXTREMITIES: There is diffusely increased metabolic activity throughout the bonemarrow. IMPRESSION 1. Stable FDG avid left lower lobe lung mass extending to the left hilumwith large necrotic component, consistent with malignancy. 2. New FDG avid bilateral pleural-based lung nodules, may be inflammatoryor metastatic. 3. Increased size and metabolic activity of multiple mediastinal andright hilar nodes. These may represent anthony metastases or reactive nodes. 4. Increased metabolic activity of the left para-aortic node. This may represent anthony metastasis or reactive node. 5. Slightly decreased activity of the left external iliac and rightobturator nodes. These are favored to represent treated anthony metastases. 6. Stable lymphadenopathy in the neck, with slightly decreased activityof bilateral axillary and inguinal nodes. These are favored to be reactive. Preliminary report signed by: Eren Patel MD at 03/10/2023 2:26 PM I have personally reviewed the image(s) and the resident's interpretationand agree with the findings, Billy Anderson MD at 03/10/2023 2:59 PM Thank you for letting us participate in the care of this patient. If youare a health care provider and have any questions regarding this report,please contact the number below. For patients who have questions please contactthe health patient care associate that requested your imaging first. Electronically signed by: Billy Anderson MD, [facility]([phone]), at 03/10/2023 2:59 PM Jose Lange MD IMG PET ORDERABLES documented in this [...] Intravenous, ONCE PRN, 1 dose, Starting on Fri03/07/23 at 1414, Until Fri03/07/23 at 1402, Per Protocol, Radiology Contrast, Routine Given 03/07/2023 2:02 PM EST 10.5 mCi documented in this encounter Care Teams Ore Grader Relationship Specialty Start Date End Date Tavia Ramirez, FOUNT[employer] OPERATOR [address] [place] [address] PCP - General Family Medicine 06/11/22 documented as of this encounter
--- OUTSIDE RECORDS SUMMARY | 2023-11-21 15:56 | XMS_ITS | Encounter Summary ---
Author Organization [facility] Address [facility] [place] [address] Care Team Providers Care Market Research Assistant Name Role Phone James Tavia Foster APRN Primary Care Provider [phone] Encounter Details Date Type Department Care Team (Latest Contact Info) Description 04/04/2023 Travel Social History Tobacco Use Types Packs/Day [...] PM EDT Office Visit Hematology/Oncology at [address] [phone] Chase Mckay MD [facility] DR HEMATOLOGY [place] [address] documented as of this encounter Visit Diagnoses Not on filedocumented in this encounter Care Teams Market Research Assistant Relationship Specialty Start Date End Date Tavia Ramirez [place] [place] [address] PCP - General Family Medicine 06/11/22 documented as of this encounter
--- OUTSIDE RECORDS SUMMARY | 2023-11-21 15:56 | XMS_ITS | Encounter Summary ---
Author Organization [facility] Address [facility] [place] [address] Care Team Providers Care Staffing Recruiter Name Role Phone James Tavia Foster APRN Primary Care Provider [phone] Encounter Details Date Type Department Care Team (Late st Contact Info) Description 04/07/2023 3:45 PM EST Office Visit Hematology/Oncology at [address] [phone] Chase Mckay MD [facility] DR HEMATOLOGY [place] [address] Dianne Jacob APRN [address] [place] [address] DR HEMATOLOGY AND ONCOLOGY [place], [place] [id number] 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; Metastatic urothelial carcinoma Social History Tobacco Use [...] Sign Reading Time Taken Comments Blood Pressure 146/90 04/07/2023 3:23 PM EST Pulse 84 04/07/2023 3:23 PM EST Temperature 37.2 ??C (98.9 ??F) 04/07/2023 3:23 PM ES T Respiratory Rate 18 04/07/2023 3:23 PM EST Oxygen Saturation 94% 04/07/2023 3:23 PM EST Inhaled Oxygen Concentration - - Weight 72.6 kg (160 lb) 04/07/2023 3:23 PM EST Height 163.8 cm (5' 4.49) 04/07/2023 3:23 PM ES T Body Mass Index 27.05 04/07/2023 3:23 PM EST documented in this encounter Progress Notes * Chase Mckay MD - 04/07/2023 3:45 PM EST Images from the original note were not included. [place] [address] [phone] Barb Bullard is being seen for the [...] recommendations regarding targeted therapy in this context. As noted previously It would appear she has at least a Stage III lung cancer and there is a strong likelihood that the FDG avid pleural effusion could be malignant which would be considered metastatic disease. Systemic therapy made the most sense in the context of at least locally advanced lung cancer and metastatic (node positive) bladder cancer. She has been treated with single agent pembrolizumab since 04/17/12 with clinical improvement and radiographic response. Most recent imaging personally reviewed and it does appear that she has progression of her lung cancer with and increasing adenopathy and new bilateral pleural implants seen on the 03/07/2023 PET scan. Discussed the case with Dr. Lange previously [...] there are any potential interactions or concerns. Chase Mckay MD, MS 04/07/2023 Thoracic Oncology [facility] CC: Jose Lange MD HPI/Interval History/Subjective: Last seen 04/01/2023 Some issues with the stents- get changed every 6-8 weeks because of crustiness No side effecs from the pembrolizumab other midl rash No new rashes, changes in breathing, new cough, diarrhea. Eating [...] History/Support Network: Home situation: Lives in [facility]. Lives with her daughter. 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 Tobacco use: 30 pk year hx quit 2014 Alcohol use: Does not drink Drug use: None Financial Distress: Medicare A/B has financial assistance through the hospitals so not worried about food Mcfp or ability to pay for her cancer [...] of left lower lobe mass lung debulking ([id number]), the immunostain findings in the present case [...] of left lower lobe mass lung debulking ([id number]), the immunostain findings in the present case are compatible with lung primary. Molecular Data: 04.04.21 Lung biopsy KRAS p.G12C c.34G>T No variants reported. TP53 p.H179Y c.535C>T 11/26/2022 11:07 AM 12/17/2022 2:23 PM 01/07/2023 10:19 AM 01/28/2023 10:46 AM 02/18/2023 1:57 PM 03/11/2023 3:30 PM 04/01/2023 11:20 AM ONCBCN ONCOLOGY (AMB) Day, Cycle Day 1, Cycle 27 Day 1, Cycle 28 Day 1, Cycle 29 Day 1, Cycle 30 Day 1, Cycle 31 Day 1, Cycle 32 Day 1, Cycle 33 pembrolizumab 25 mg/mL (Keytruda) IV 200 mg 200 mg 200 mg 200 mg 200 mg 200 mg 200 mg Patient Active Problem List Diagnosis Date Noted 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 08/04/2021 Anemia 04/18/2021 Bilateral hydronephrosis 04/18/2021 Folate deficiency 04/18/2021 Lung mass 04/18/2021 Obstructive uropathy 04/18/2021 Metastatic urothelial carcinoma 03/27/2021 Abnormal thyroid function test 03/27/2021 No Known Allergies Medications 04/07/23 1552 Medication Sig Taking? levothyroxine (Synthroid) 75 mcg tablet Take 1 tablet by mouth daily. Yes acetaminophen (Tylenol) 500 mg Tablet Take 1,000 mg by mouth every 8 hours as needed for Pain. Yes senna (Senokot) 8.6 mg Tablet Take by mouth daily. Yes prochlorperazine (Compazine) 10 mg Tablet Take 1 tablet by mouth every 6 hours as needed for Nausea. Yes traMADoL (Ultram) 50 mg Tablet Take 1 tablet by mouth every 6 hours as needed for Pain. Patient not taking: Reported on 01/28/2023 I reviewed the problem list, allergies, medications, past medical history, social history and family history within the EPIC encounter. Pertinent details are noted above. Pertinent positives and negative from the Review of Systems are as summarized above in the HPI. Physical Exam: Wt Readings from Last 3 Encounters: 04/07/23 72.6 kg (160 lb) 04/01/23 73 kg (161 lb) 03/11/23 71.8 kg (158 lb 6.4 oz) Temp Readings from Last 3 Encounters: 04/07/23 37.2 ??C (98.9 ??F) (Temporal) 04/04/23 36.1 ??C (97 ??F) (Tympanic) 04/01/23 36 ??C (96.8 ??F) (Temporal) BP Readings from Last 3 Encounters: 04/07/23 146/90 04/04/23 143/71 04/01/23 128/60 Pulse Readings from Last 3 Encounters: 04/07/23 84 04/04/23 74 04/01/23 96 Body surface area is 1.82 meters squared. Wt Readings from Last 3 Encounters: 04/07/23 72.6 kg (160 lb) 04/01/23 73 kg (161 lb) 03/11/23 71.8 kg (158 lb 6.4 oz) KPS Score ECOG Grade Definition 90-100 [...] 3:30 PM EDT Office Visit Hematology/Oncology at [address] [phone] Chase Mckay MD [facility] DR HEMATOLOG[place] [address] Scheduled Orders Name Type Priority Associated Diagnoses Orde r Schedule Circulating Tumor ctDNA External Send Out Lab Routine 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 Metastatic urothelial carcinoma Expected: 04/07/2023, Expires: 10/07/2023 documented as of this encounter Visit Diagnoses Diagnosis 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 Malignant neoplasm of lower lobe, bronchus, or lung Metastatic urothelial carcinoma Secondary malignant neoplasm of other urinary organs documented in this encounter Care Teams Staffing Recruiter Relationship Specialty Start Date End Date Tavia Ramirez APRN [facility] [place] [address] PCP - General Family Medicine 06/11/22 documented as of this encounter
--- OUTSIDE RECORDS SUMMARY | 2023-11-21 15:56 | XMS_ITS | Encounter Summary ---
[place] [address] Care Team Providers Care Refrigerator Crater Name Role Phone Tavia Ramirez APRN Primary Care Provider [phone] Encounter Details Date Type Department Care Team (Late st Contact Info) Description 04/25/2023 [place] [phone] Antione Dupree, [facility] [place] [address] Social History Tobacco Use Types Packs/Day Years [...] encounter Miscellaneous Notes * Telephone Encounter - Antione Dupree DO - 04/25/2023 6:32 AM EST RADIOLOGY TELEPHONE NOTE Patient: Barb Bullard : 1950 Person Placing Call: Patient Person Receiving Call: Antione Dupree DO Date of call: 04/25/2023 Time of call: 0600 Recent Procedure: Bilateral Nephrostomy tube exchange 04/04/23 Reason for call: Right nephrostomy tube fell out with worsening pain. The patient noted that this morning when she woke up her right nephrostomy tube was completely out. She has since been experiencing worsening discomfort on that side which she associates with blockage of her kidney. She denies any feeling of fever or general malaise with symptoms solely of worsening discomfort. 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 Plan/Instructions: Instructed the patient to come to [facility] for replacement exchange today due to worsening symptoms. Patient to be further evaluated in person. Patient expressed agreement to this plan and is arranging transport for herself to [facility]. documented in this encounter Plan of Treatment Upcoming Encounters Date Type Department Care Team (Late st Contact Info) Description 12/08/2023 3:30 PM EDT Office Visit Hematology/Oncology at [address] [phone] Chase Mckay MD [facility] [place]AT[place] [address] documented as of this encounter Visit Diagnoses Not on filedocumented in this encounter Care Teams Refrigerator Crater Relationship Specialty Start Date End Date Tavia Ramirez [place] [address] [place] [address] PCP - General Family Medicine 06/11/22 documented as of this encounter
--- OUTSIDE RECORDS SUMMARY | 2023-11-21 15:56 | XMS_ITS | Encounter Summary ---
[place] [address] Care Team Providers Care Silver Designer Name Role Phone JamesTavia Cristian FRANCOIS Primary Care Provider [phone] Reason for Referral * Diagnostic Test (Routine) - Closed Specialty Diagnoses / Procedures Referred By Contac t Referred To Contact Radiology Diagnoses Metastatic urothelial carcinoma 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 Procedures NM PET CT Skull Base to Mid-thigh Jose Lange MD [facility] [address] [place] [address] [place] [address] Referral ID Status Reason Start Date Expiration Date V isits Requested Visits Authorized [id number] Closed Specialty Service Requested 01/28/2023 07/29/2024 1 2 Encounter Details Date Type Department Care Team (Late st Contact Info) Description 01/28/2023 9:30 AM EDT Office Visit Hematology/Oncology at [address] [phone] Jose Lange MD [facility] [address] HEMATOLOG[place] [address] Metastatic urothelial carcinoma (Primary Dx); 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 No 03/27/2021 Sex and Gender Information Value Date Recorded Sex Assigned at Not on file Gender Identity Not on file Sexual Orientation Not on file documented as of this encounter Last Filed Vital Signs Vital Sign Reading Time Taken Comments Blood Pressure 109/68 01/28/2023 9:31 AM EDT Pulse 92 01/28/2023 9:31 AM EDT Temperature 36 ??C (96.8 ??F) 01/28/2023 9:31 AM EDT Respiratory Rate 16 01/28/2023 9:31 AM EDT Oxygen Saturation 93% 01/28/2023 9:31 AM EDT Inhaled Oxygen Concentration - - Weight 71.2 kg (157 lb) 01/28/2023 9:31 AM EDT Height 163.8 cm (5' 4.49) 01/28/2023 9:31 AM ED T Body Mass Index 26.54 01/28/2023 9:31 AM EDT documented in this encounter Progress Notes * Jose Lange MD - 01/28/2023 9:30 AM EDT Images from the original note were not included. Hematology & Medical Oncology [address] [phone] Barb returns today to continue treatment for Metastatic urothelial carcinoma and primary lung cancer HPI: Barb Bullard is 72 y.o.F referred by Dr. Arzate for consultation on new diagnosis of bladder cancer. She initially presented with with kidney failure and bilateral hydronephrosis secondary to bladder cancer. Bilateral percutaneous nephrostomy tubes were placed by IR on 02/20/21. Creatinine went down from 4.8- 1.6 but then got elevated to 1.[address] imaging showed an obstructive uropathywith significant hydroureter, hydronephrosis and a large bladder mass that was diagnosed as a high-grade urothelial cell carcinoma. Her chest CT also showed obstruction of the LLL bronchus. The PET CT is concerning for metastatic disease and could represent metastatic bladder cancer vs a distinct lung primary. She was seen by vocal artist , who recommended rigid bronchoscopy withattempts to open the LLL broncus as well as stage the mediastinum with EBUS. The procedure has beenscheduled yet. She underwent 04/04 bronchoscopy and tumor debulking on April 042020- endobronchial biopsies positive for adenocarcinoma of lung origin. She received one dose on immunotherapy IV on 04/18/21 andthen unfortunately was admitted to the hospital on 03/3021 with CAP, BRITNI and pulmonary HTN. She wasdischarged home on 05/01/21 Interval history 01/28/23 Barb returns today for followup of her metastatic bladder cancer/primary lung cancer . She continues on pembrolizumab without any issues. Her nephrostomy tubes are working well, but she experience mild discomfort on the right side in the mornings. No fever or chills., . She denies any shortness of breath chest pain or cough. She denies any rashes or bruising. Her appetite is good. She has no issues with her bowels. ROS is otherwise negative. PMH: No interval changes since last visit COVID- 06/12/22 UTI- 06/12/22 UTI 02/12/2022 Bilateral over the wire conversion of nephro-ureteral stent to 10 Fr nephrostomy catheters 01/18/2022 UTI 09/14/2021 04/26/21-05/01/21 admission to [facility] with pneumonia, Pulmonary hypertension/CHF, BRITNI 04/16/2021 nephrostomy catheter exchange 04/04/21 bronchoscopy and tumor debulking- endobronchial biopsies positive for adenocarcinoma of lung origin Social History: No interval changes since last visit 25-flct-cffe smoking history quit 6 years ago, does not drink alcohol, used to live independently, but currently moved to her daughters house. Family History: No interval changes since last visit Brother had liver cancer, mother had leukemia, maternal aunt had colon cancer in cousin had bladdercancer Allergies: No Known Allergies Medications: Your Medications Accurate as of January 28, 2023 9:35 AM. If you have any questions, ask your [...] 30 tablet Refills: 0 Review of Systems: Constitutional: Negative for fever, chills. Positive for fatigue. HEENT: Negative for sore throat, mouth sores and trouble swallowing. Eyes: Negative. Respiratory: Negative for shortness of breath. No wheezing. No hemoptysis. Occasional cough. Cardiovascular: Negative for chest pain, palpitations and leg swelling. Gastrointestinal: Negative for nausea, vomiting, abdominal pain, diarrhea, constipation and abdominal distention. Genitourinary:Bilateral nephrostomy tubes. Musculoskeletal: Negative Skin: Negative. Neurological: Negative. Hematological: Negative for adenopathy. PE: General: AAAx3, in NAD. Pallor Head: Normocephalic, without obvious abnormality, atraumatic Eyes: conjunctiva/corneas clear both eyes Ears: Nose: Throat: No mucositis. Questionable fullness on left side of tongue on palpation. No mass noted. Unable to palpate any cervical or supraclavicular adenopathy. Neck: Supple, symmetrical, trachea midline, no adenopathy, thyroid: not enlarged, symmetric, no tenderness/mass/nodules. Back: Symmetric, no curvature, ROM normal, no CVA tenderness Lungs: Clear to auscultation on right. Diminished breath sounds on left. No wheezes. Chest Wall: No tenderness or deformity Heart: Regular rate and rhythm, S1, S2 normal, no murmur, rub or gallop Abdomen: Soft, non-tender, bowel sounds active all four quadrants, no masses, no organomegaly. Bilateral nephrostomy tube in place. Urine clear yellow bilaterally with mucous. Extremities: Extremities normal, atraumatic, no cyanosis or edema Pulses: Skin: There is a papular rash on the right shoulder and upper back Lymph nodes: Cervical, supraclavicular, and axillary nodes normal Neurologic: Normal Vitals BP 109/68 (Patient Position: Sitting) Pulse 92 Temp 36 ??C (96.8 ??F) (Temporal) Resp 16 Ht 163.8 cm (5' 4.49) Wt 71.2 kg (157 lb) SpO2 93% BMI 26.54 kg/m?? Pathology: Molecular pathology KRAS p.G12C c.34G>T A [id number] VAF % 35.7 May benefit from -- Sotorasib in Non-small cell lung cancer 04/04/21 ADDENDUM DISCUSSION PD-L1 Immunohistochemistry Study Tissue: [...] The assay was performed according to the fisher net's instructions using Anti-PD-L1 (22C3, pharmDX) antibody. Electronically signed by: Herbert Ford MD Verified: 04/11/2021 8:14 Pathologist Performed at: -[facility] Dept. of Pathology, [place], [place] Surgical Pathology DIAGNOSIS A - Lung, left lower lobe mass, debulking: - Adenocarcinoma, consistent with lung primary. Electronically signed by: Sana Dowell MD Verified: 04/06/2021 11:16 Pathologist Performed at: -[facility] Dept. of Pathology, [place], [place] DISCUSSION Sections show an invasive, predominantly [...] propria. - No muscularis propria identified. Labs: 01/15/2023 WBC 15.48, hemoglobin 10.9, platelet count [...] WBC 11.0, hemoglobin 11.2, platelet count 531. 07/23/22- WBC-11.44 Hgb/Hct-11.4/37.0 MCV-82 Plt-593 ANC-7.15 Na-141 K+-3.8 BUN/Cr-22/1.6 Glucose-114 Ca-8.9 T. Bili-0.5 AST-12 ALT-13 Alk phos-93 Albumin-3.2 TSH-1.08 Free T4-0.99 06/25/22- WBC-12.72 Hgb/Hct-11.1/36.0 Plt-635 ANC-7.68 Na-139 K+-3.6 BUN/Cr-22/1.3 Glucose-91 Ca-8.6 T. Bili-0.5 AST-15 ALT-11 Alk phos-86 Albumin-3.1 TSH-0.64 Free T4-1.18 05/14/22- WBC-10.86 Hgb/Hct-10.4/34.3 Plt-634 ANC-6.70 Na-137 K+-3.9 BUN/Cr-21/1.8 Glucose-99 Ca-8.9 T. Bili-0.6 AST-12 ALT-9 Alk phos- 87 Albumin-3.1 TSH-0.85 Free T4-1.18 04/23/22- WBC-9.74 Hgb/Hct-11.3/35.5 Plt-538 ANC-6.03 Na-138 K+-4.0 BUN/Cr-24/1.6 Glucose-100 Ca-8.8 T. Bili-0.5 AST-14 ALT-12 Alk phos-88 albumin-3.0 TSH-1.06 Free T4-1.38 04/02/22- WBC-10.15 Hgb/Hct-11.0/34.9 Plt-647 ANC-6.55 Na-142 K+-3.6 BUN/cr-19/1.7 Glucose-113 Ca-9.0 T. Bili-0.4 AST-10 ALT-9 Alk phos-78 Albumin-2.9 TSH-1.13 FT4-1.14. 03/12/2022 BUN 15, creatinine 1.7, calcium 9, TB 0.8, AST 13, ALT 9, alkaline phosphatase 86, totalprotein 8.6, albumin 3.3, TSH 2.25, free T4 1.27. WBC 9.14, hemoglobin 12, platelet count 555, ANC 5.76. 02/19/2022 BUN 20, creatinine 1.5, calcium 8.7, TB 0.3, AST 11, ALT 9, alkaline phosphatase 66, TSH5.24, free T4 1.1, WBC 11.46, hemoglobin 11.1, platelet count 617, ANC 7.33 02/12/22- WBC-11.96 Hgb/Hct-11.2/35.7 MCV- 87 Plt-703 ANC-8.23 Na-140 K+-4.6 BUN/Cr-21/1.5 Glucose-111 Ca-9.6 T. Bili-0.5 AST-19 ALT-10 Alk phos- 80 Albumin-3.3 TSH-5.89 FT4-1.12 01/22/2022 BUN 21, creatinine 1.6, calcium 9.9, TB 0.6, AST 17, ALT 15, alkaline phosphatase 79, total protein 9.7, albumin 3.3, TSH 5.37, free T4 1.09, WBC 11.69, hemoglobin 11.7, platelet count 583, 01/01/22 WBC 11.93 H/H 12.4/39.5 Plts 567 Na 138 K+ 4.4 BUN/Cr 19/1.7 Glu 105 Ca 8.9 Alk phos 84 AST 18 ALT 16 TSH 14.04 Free T4 0.91 11/20/2021 BUN 25, creatinine 1.7, TB 0.7, AST 12, ALT 16, alkaline phosphatase 76, total protein 8.4, albumin 3.3, TSH 11.4, free T4 0.8, WBC 11.0, hemoglobin 12.4, platelet count 504, ANC 6.71 10/30/21 WBC 11.23 H/H 12.4/39.8 plts 571 ANC 7.05 Na 138 K+ 3.7 BUN/Cr 20/1.5 Glu 105 lfts normal TSH 14,28 T4 free 0.60 10/09/2021 WBC 10.57, hemoglobin 11.9, platelet count 561, ANC 6.39, BUN 27, creatinine 1.5, TB 0.8,AST 13, ALT 12, alkaline phosphatase 80, total protein 8.3, albumin 3.3, TSH 7.48, free T4 0.77 Imagin10/10/22 IMPRESSION 1. There has been no change [...] mass, most consistent with distant metastasis. She is planned for endoscopic ultrasound including biopsy to rule out primary lung cancer. We discussed treatment option of presumably metastatic urothelial carcinoma which include [place] based chemotherapy versus immunotherapy. Due to her kidney failure she is not eligible for cisplatinbased chemotherapy. It would be hard to manage [...] with pembrolizumab. Informed verbal consent was obtained. We discussed alternatives including palliative treatment/hospice. Given her lung biopsy will be negative for primary lung cancer we will see her back in 3 weeks withfirst cycle of pembrolizumab 04/17/21 Lung biopsy and lymph node stations [...] regimen. She was seen by Dr. Nely macario recommendation of continuation pembrolizumab and consideration of [...] regimen. We will get restaging PET scan # Low back pain left side pain- She is taking Tramadol 50 mg(1/2) every 12 hours with tylenol in between if needed. She follows with Palliative Care. #Abnormal thyroid function: levothyroxine is 75 mcg daily.. Will monitor thyroid function. #Renal insufficiency: Cr 1.6 today, stable, Creatinine 3.0 on admission. She has bilateral nephrostomy tubes. tube exchange was on Friday-07/26/22. # Anemia- mild- asymptomatic. #Tongue lesion on PET scan: Was seen by ENT Dr. Steel in October of 2022 , no lesions on the base of tongue Plan: 1 Proceed with C30 Pembrolizumab today as scheduled. 2. Continue levothyroxine 75 mcg a day 3. Restaging PET scan 4. Next visit with CBC, CMP, TSH, free T4 and pembrolizumab infusion t in 3 weeks Barb voiced understanding of the plan and was given an opportunity to ask questions which I answered to the best of my ability. Barb understands she can call the clinic between visits with any questions/concerns or new symptoms. documented in this encounter Plan of Treatment Upcoming Encounters Date Type Department Care Team (Late st Contact Info) Description 12/08/2023 3:30 PM EDT Office Visit Hematology/Oncology at [address] [phone] Chase Mckay MD [facility] DR HEMATOLOGY [place] [address] documented as of this encounter Results * [...] interpretation and agree with the findings, Billy nAderson MD at 03/10/2023 2:59 PM Thank you for letting us participate in the care of this patient. ??If you are a health care provider and have any questions regarding this report, please contact the number below. ??For patients who have questions please contact the health child caregiver private home that requested your imaging first. ? Electronically signed by: Billy Anderson MD, [facility] ([phone]), at 03/10/2023 2:59 PM Narrative 03/10/2023 2:59 PM EST EXAMINATION: NM PET CT STANDARD SKULL BASE TO MID-THIGH CLINICAL HISTORY: Urologic cancer, assess treatment response - Include more detail below Restaging of metastatic urothelial carcinoma and primary lung cancer TECHNIQUE: Following IV injection of 19-qfgxvt-5-deoxyglucose (FDG) a standard uptake of approximately 60 [...] lung cancer TECHNIQUE: Following IV injection of 54-itrqkz-7-deoxyglucose (FDG) astandard uptake of approximately 60 minutes, [...] who have questions please contactthe health child caregiver private home that requested your imaging first. 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
--- OUTSIDE RECORDS SUMMARY | 2023-11-21 15:56 | XMS_ITS | Encounter Summary ---
Author Organization [facility] Address [facility] [place] [address] Care Team Providers Care Press Shop Supervisor Name Role Phone James Tavia Foster APRN Primary Care Provider [phone] Encounter Details Date Type Department Care Team (Late st Contact Info) Description 04/22/2023 11:30 AM EST Office Visit Hematology/Oncology at [address] [phone] Jose Lange MD [facility] [place] [address] Katherine Sepulveda APRN [facility] [place] [address] 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; Metastatic urothelial carcinoma; Hypothyroidism due to drugs; Anemia, unspecified type; Primary lung adenocarcinoma, left Social History Tobacco Use Types Packs/Day Years [...] Sign Reading Time Taken Comments Blood Pressure 111/69 04/22/2023 11:42 AM EST Pulse 79 04/22/2023 11:42 AM EST Temperature 36 ??C (96.8 ??F) 04/22/2023 11:42 AM EST Respiratory Rate 16 04/22/2023 11:42 AM EST Oxygen Saturation 98% 04/22/2023 11:42 AM EST Inhaled Oxygen Concentration - - Weight 73 kg (161 lb) 04/22/2023 11:42 AM EST Height 163.8 cm (5' 4.49) 04/22/2023 11:[address] Body Mass Index 27.22 04/22/2023 11:42 AM EST documented in this encounter Progress Notes * Jose Lange MD - 04/22/2023 11:30 AM EST Images from the original note were not included. Hematology & Medical Oncology [address] [address] Barb returns today to continue treatment for [...] distinct lung primary. She was seen by paper machine supervisor , who recommended rigid bronchoscopy with attempts [...] Allergies Medications: Your Medications Accurate as of April 22, 2023 12:09 PM. If you have any questions, ask [...] supraclavicular, and axillary nodes normal Vitals BP 111/69 (Patient Position: Sitting) Pulse 79 Temp 36 ??C (96.8 ??F) (Temporal) Resp 16 Ht 163.8 cm (5' 4.49) Wt 73 kg (161 lb) SpO2 98% BMI 27.22 kg/m?? 04/04/21 ADDENDUM DISCUSSION PD-L1 Immunohistochemistry Study [...] The assay was performed according to the pilot fuel engineer's instructions using Anti-PD-L1 (22C3, pharmDX) antibody. Electronically signed by: Herbert Ford MD Verified: 04/11/2021 8:14 Pathologist Performed at: [place] [place], [place], [place] Surgical Pathology DIAGNOSIS A - Lung, left lower lobe mass, debulking: - Adenocarcinoma, consistent with lung primary. Electronically signed by: Sana Dowell MD Verified: 04/06/2021 11:16 Pathologist Performed at: [place] [place], [place], [place] DISCUSSION Sections show an invasive, predominantly [...] of presumably metastatic urothelial carcinoma which include [place] based chemotherapy versus immunotherapy. Due to her [...] up with nephrology. Continues with tube exchange [id number]. # Anemia- mild- asymptomatic. 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
--- OUTSIDE RECORDS SUMMARY | 2023-11-21 15:56 | XMS_ITS | Encounter Summary ---
[place] [address] Care Team Providers Care Underwear Trimmer Name Role Phone Tavia Ramirez APRN Primary Care Provider [phone] Reason for Referral * Diagnostic Test (Routine) - Closed Specialty Diagnoses / Procedures Referred By Contac t Referred To Contact Radiology Diagnoses Bilateral hydronephrosis Procedures IR Nephrogram/Nephrostomy Tube Exchange Bilateral Alin Dillard MD [facility] [place] [address] [place] [address] Referral ID Status Reason Start Date Expiration Date V isits Requested Visits Authorized [id number] Closed Specialty Service Requested 04/04/2023 10/03/2024 1 1 * Diagnostic Test (Routine) - Closed Specialty Diagnoses / Procedures [facility] Referred To Contact Radiology Diagnoses Bilateral hydronephrosis Obstructive uropathy Procedures IR Nephrogram/Nephrostomy Tube Exchange Bilateral Alin Dillard MD [facility] [place] [address] [place] [address] Referral ID Status Reason Start Date Expiration Date V isits Requested Visits Authorized [id number] Closed Specialty Service Requested 02/13/2023 08/14/2024 1 1 Reason for Visit * Diagnostic Test (Routine) - Closed Specialty Diagnoses / Procedures Referred By Etta no Referred To Contact Radiology Diagnoses Bilateral hydronephrosis Obstructive uropathy Procedures IR Nephrogram/Nephrostomy Tube Exchange Bilateral Alin Dillard MD [facility] [place] [address] [facility] [place] [address] Referral ID Status Reason Start Date Expiration Date V isits Requested Visits Authorized [id number] Closed Specialty Service Requested 02/13/2023 08/14/2024 1 1 Encounter Details Date Type Department Care Team (Latest Contact Info) Description 04/04/2023 12:12 PM EST - 04/04/2023 11:59 PM EST Hospital [place] [address] Alin Dillard MD [facility] [place] [address] Bilateral hydronephrosis; Obstructive uropathy Discharge Disposition: Home Social History [...] Sign Reading Time Taken Comments Blood Pressure 143/71 04/04/2023 2:01 PM EST Pulse 74 04/04/2023 12:34 PM EST Temperature 36.1 ??C (97 ??F) 04/04/2023 2:01 PM EST Respiratory Rate 16 04/04/2023 2:01 PM EST Oxygen Saturation 99% 04/04/2023 2:01 PM EST Inhaled Oxygen Concentration - - Weight - - Height - - Body Mass Index - - documented in this encounter Discharge Instructions * Discharge Instructions* Nancy Lozano RN - 04/04/2023 1:05 PM EST Images from the original note were not included. [facility] Vascular and Interventional Radiology [...] connecting tubing from the drain. Put a credit reporter on both the drain and the bag. [...] is during regular office hours, please call [phone]. If it is after regular office hours, or on weekends or holidays, please call [phone] and ask to speak to the Enterprise Integration Developer validation technician for Interventional Radiology. Revised 02/11/19 documented in [...] 04/18/2021 05/13/2023 documented as of this encounter Progress Notes * Nancy Lozano, RN - 04/04/2023 1:47 PM EST ANGIO NURSING DATABASE Name: Barb Bullard Date of : 1950 AGE: 72 y.o. Address: [address] [place] [phone] (home) Mobile: Telephone Information: Referring Provider: Alin Dillard REASON FOR VISIT: Order Questions Answers Where will study be performed? [facility] Radiology [120] Reason for exam and clinical history: 6week change due to frequent encrustation, chronic neph tubes. Is the patient on anticoagulant / antiplatelet therapy ? No No data recorded No Known Allergies Pertinent PMH: Patient Active Problem List Diagnosis Code Metastatic urothelial carcinoma C79.10 Abnormal thyroid function test R94.6 Anemia D64.9 Bilateral hydronephrosis N13.30 Folate deficiency E53.8 Lung mass R91.8 Obstructive uropathy N13.9 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 C34.32 IR history: Date/Procedure Meds given/comments 02/20/21 b/l PCN Placement No abx - covered from meds at OSH 4 mg midazolam, 175 mcg fentanyl 04/02/21 Right chest port placement local lidocaine, 2g Ancef, 3mg midazolam, 150mcg fentanyl 04/16/21 B/L Double J Stent Exchange Lido Mirtha 07/13/2021 Bileteral Nu exchange Cipro 500 [...] exchange Cipro 500 mg PO, Lido jelly 1313 to procedure room 4 via stretcher. Onto table prone. BP and pulse ox monitors and safety strapin place. Lido jelly only. Laboratory Results: Lab Results Component Value Date CREATININE 1.54 (H) 07/13/2021 Lab Results Component Value Date K 4.5 04/16/2021 Lab Results Component Value Date PLATELET 873 (H) 04/16/2021 documented in this encounter Plan of Treatment Upcoming Encounters Date Type Department Care Team (Late st Contact Info) Description 12/08/2023 3:30 PM EDT Office Visit Hematology/Oncology at [address] [phone] Chase Mckay MD [facility] [address] [place] [address] documented as of this encounter Procedures Procedure Name Priority Date/Time Associated Diagnosis Comments IR NEPHROGRAM/NEPHROST CAYLA TUBE EXCHANGE BILATERAL Routine 04/04/2023 1:59 PM EST Bilateral hydronephrosis Obstructive uropathy documented in this encounter Results * IR Nephrogram/Nephrostomy Tube Exchange Bilateral (04/25/2023 9:28 AM EST) Anatomical Region Laterality Modality X-Ray Angiograph y Narrative 04/25/2023 9:28 AM EST Preoperative Diagnosis: ? left Chronic indwelling nephrostomy tube for routine change. Right has become dislodged. Postoperative Diagnosis: ?? Same Procedure Performed: Over the wire exchange of Left nephrostomy tube. Replacement of right Nephrostomy tube through existing track Estimated Blood Loss: None Fluoroscopy time: Please see [facility] IR technologist record for procedural dose/time [...] collecting sytem. Using fluoroscopic guidance, the existing nephrostomy tube was removed over a wire, and replaced with a new ??10 Fr nephrostomy tube which was positioned within the renal pelvis. A spot fluoroscopic image demonstrates the nephrostomy tube to be in good position. The exit site of the dislodged left nephrostomy tube was prepped and draped in the usual sterile fashion. ??Using fluoroscopic guidance, a wire was advanced through the existing tract into the renal collecting system. ?? A new 10 Cypriot nephrostomy tube was advanced over this wire, and positioned within the collecting system. ??A spot fluoroscopic image demonstrates the tube to be in good position. The patient tolerated the procedure well. Impression: Uneventful over the wire exchange of left nephrostomy tube as above. ?? Uneventful replacement of right nephrostomy tube through existing tract. I, the attending Interventional Radiologist performed the entire procedure. Alin Dillard MD [facility] IR ORDERABLES * IR Nephrogram/Nephrostomy Tube Exchange Bilateral (04/04/2023 1:59 PM EST) Anatomical Region Laterality Modality X-Ray Angiograph y Narrative 04/04/2023 1:51 PM EST Preoperative Diagnosis: ? Chronic indwelling bialteral nephrostomy tubes for routine change. Postoperative Diagnosis: ?? Same Procedure Performed: Over the wire exchange of nephrostomy tubes Estimated Blood Loss: None Fluoroscopy time: Please see [facility] IR technologist record for procedural dose/time Operators: Alin Dillard MD, Attending Oral Cipro was administered prior to the procedure. Anesthesia: 1. Conscious sedation with titrated Fentanyl and Versed during continuous hemodynamic monitoring including pulse oximetry, heart rate and blood pressure was provided by an independent qualified trained Nurse. ?? I was present during the intraservice time as documented by the IR Nurse. ?? Please see nursing notes for exact medication dosages. 2. 1% lidocaine, local. The patient was informed [...] collecting sytem. Using fluoroscopic guidance, the existing nephrostomy tube was removed over a wire, and replaced with a new ??10 Fr nephrostomy tube which was positioned within the renal pelvis. The existing Nephrostomy tube ??was prepped and draped in [...] Impression: Uneventful over the wire exchange of bilateral nephrostomy tubes as above. I, the attending Interventional Radiologist performed the entire procedure. Alin Dillard MD [facility] IR ORDERABLES documented in this encounter Visit Diagnoses Diagnosis Bilateral hydronephrosis Hydronephrosis Obstructive uropathy Urinary obstruction, unspecified Bilateral hydronephrosis Hydronephrosis Obstructive uropathy Urinary obstruction, unspecified documented in this encounter Administered Medications Inactive Administered Medications - up to 3 most recent administrations Medication Order MAR Action Action Date Dose Rate Site ciprofloxacin (Cipro) tablet 500 mg 500 mg, Oral, ONCE, 1 dose, On Fri04/04/23 at 1245, Angio/IR (Day of Procedure), Routine, Indication for (Active or Suspected): Prophylaxis Given 04/04/2023 1:10 PM EST 500 mg iohexoL (Omnipaque) (350 mg/mL) solution 1-400 mL 1-400 mL, Other, ONCE, 1 dose, On Fri04/04/23 at 1245, For intra-procedural use by proceduralist., Angio/IR (Intra-Procedure), Routine Given 04/04/2023 12:45 PM EST 25 mLs lidocaine (Glydo) 2 % gel 6 mL 6 mL, Topical (Top), EVERY 4 HOURS PRN, Starting on Fri04/04/23 at 1228, Until Fri04/04/23 at 1426, Pain, For use in Interventional Radiology (IR) only for procedure with direct provider supervision and verbal order., Angio/IR (Intra-Procedure), Routine Given 04/04/2023 1:35 PM EST 6 mLs documented in this encounter Care Teams Underwear Trimmer Relationship Specialty Start Date End Date Tavia [place] [address] PCP - General Family Medicine 06/11/22 documented as of this encounter
--- OUTSIDE RECORDS SUMMARY | 2023-11-21 15:56 | XMS_ITS | Encounter Summary ---
Author Organization [facility] [place] [address] Care Team Providers Care Urology Physician Name Role Phone James Tavia Foster APRN Primary Care Provider [phone] Encounter Details Date Type Department Care Team (Latest Contact Info) Description 03/11/2023 Travel Social History Tobacco Use Types Packs/Day [...] slept in a intermediate (including now)? No 03/27/2021 Sex and Gender Information Value Date Recorded Sex Assigned at Not on file Gender Identity Not on file Sexual Orientation Not on file documented as of this encounter Plan of Treatment Upcoming Encounters Date Type Department Care Team (Late st Contact Info) Description 12/08/2023 3:30 PM EDT Office Visit Hematology/Oncology at [address] [phone] Chase Mckay MD [facility] DR HEMATOLOGY [place] [address] documented as of this encounter Visit Diagnoses Not on filedocumented in this encounter Care Teams Urology Physician Relationship Specialty Start Date End Date Tavia Ramirez APRN [place] [place] [address] PCP - General Family Medicine 06/11/22 documented as of this encounter
--- OUTSIDE RECORDS SUMMARY | 2023-11-21 15:56 | XMS_ITS | Encounter Summary ---
Author Organization [facility] Address [facility] [place] [address] Care Team Providers Care Lumber Sorter Machine Name Role Phone James Tavia Foster APRN Primary Care Provider [phone] Encounter Details Date Type Department Care Team (Latest Contact Info) Description 01/07/2023 Travel Social History Tobacco Use Types Packs/Day [...] 3:30 PM EDT Office Visit Hematology/Oncology at [address] [phone] Chase Mckay MD [facility] DR HEMATOLOGY [place] [address] documented as of this encounter Visit Diagnoses Not on filedocumented in this encounter Care Teams Lumber Sorter Machine Relationship Specialty Start Date End Date Tavia Ramirez [place] [address] [place] [address] PCP - General Family Medicine 06/11/22 documented as of this encounter
--- OUTSIDE RECORDS SUMMARY | 2023-11-21 15:56 | XMS_ITS | Encounter Summary ---
Author Organization [facility] Address [facility] [place] [address] Care Team Providers Care Business Support Professional Name Role Phone James Tavia Foster APRN Primary Care Provider [phone] Encounter Details Date Type Department Care Team (Latest Contact Info) Description 03/31/2023 Travel Social History Tobacco Use Types Packs/Day [...] PM EDT Office Visit Hematology/Oncology at [address] [address] Chase Mckay MD [facility] DR [place] [address] documented as of this encounter Visit Diagnoses Not on filedocumented in this encounter Care Teams Business Support Professional Relationship Specialty Start Date End Date Tavia Ramirez [place] [place] [address] PCP - General Family Medicine 06/11/22 documented as of this encounter
--- OUTSIDE RECORDS SUMMARY | 2023-11-21 15:56 | XMS_ITS | Encounter Summary ---
[place] [address] Care Team Providers Care Curriculum Director Name Role Phone Tavia Ramirez APRN Primary Care Provider [phone] Reason for Referral * Diagnostic Test (Routine) - Closed Specialty Diagnoses / Procedures Referred By Etta no Referred To Contact Radiology Diagnoses Bilateral hydronephrosis Procedures IR Nephrogram/Nephrostomy Tube Exchange Bilateral Ana Gandhi PA [facility] [place] [address] [place] [address] Referral ID Status Reason Start Date Expiration Date V isits Requested Visits Authorized [id number] Closed Specialty Service Requested 02/13/2023 08/14/2024 1 1 Encounter Details Date Type Department Care Team (Late st Contact Info) Description 02/13/2023 Notes [place] [address] Ana Gandhi PA [facility] [place] [address] Social History Tobacco Use Types Packs/Day Years [...] PM EDT Office Visit Hematology/Oncology at [address] [phone] Chase Mckay MD [facility] DR [place]EMATOLOG[place] [address] documented as of this encounter Results * IR Nephrogram/Nephrostomy Tube Exchange Bilateral (02/13/2023 4:31 PM EDT) Anatomical Region Laterality Modality X-Ray Angiograph y Narrative 02/13/2023 4:51 PM EDT Preoperative Diagnosis: ? Chronic indwelling nephrostomy tubes for routine change. Postoperative Diagnosis: ?? Same Procedure Performed: Over the wire exchange of nephrostomy tubes Estimated Blood Loss: None Fluoroscopy time: Please see [facility] IR technologist record for procedural dose/time Operators: [...] chlorhexidine for cutaneous antisepsis. The existing Nephrostomy tube ??was prepped and draped in the usual sterile fashion. Contrast was administered through the existing tube ??demonstrating the tube to lie within the renal collecting sytem. Using fluoroscopic guidance, the existing left nephrostomy tube was removed over a wire, and replaced with a new ??10 Fr nephrostomy tube which was positioned within the renal pelvis. Using fluoroscopic guidance, attempts were made to remove the right nephrostomy tube over the wire. ??The tube was occluded with encrusted lumen. ??A wire would not pass. ??This tube was removed with traction, and a wire was advanced into the tract and renal collecting system. ??A new 10 Malaysian tube was then advanced over the wire into the right renal collecting system and positioned within the renal pelvis. A spot fluoroscopic image demonstrates the nephrostomy tubes to be in good position. The patient tolerated the procedure well. Impression: Occluded right nephrostomy tube, and both nephrostomy tubes were heavily encrusted making revision difficult. ??Recommend routine change at 6 weeks. I, the attending Interventional Radiologist performed the entire procedure. Alin Dillard MD [facility] IR ORDERABLES documented in this encounter Visit Diagnoses Diagnosis Bilateral hydronephrosis Hydronephrosis Bilateral hydronephrosis Hydronephrosis Obstructive uropathy Urinary obstruction, unspecified documented in this encounter Care Teams Curriculum Director Relationship Specialty Start Date End Date Tavia Ramirez, INSURANCE AND FINANCIAL SERVICES [place] [address] [place] [address] PCP - General Family Medicine 06/11/22 documented as of this encounter
--- OUTSIDE RECORDS SUMMARY | 2023-11-21 15:56 | XMS_ITS | Encounter Summary ---
Author Organization [facility] Address [facility] [place] [address] Care Team Providers Care Linux Admin Name Role Phone Tavia Ramirez APRN Primary Care Provider [phone] Encounter Details Date Type Department Care Team (Late st Contact Info) Description 01/27/2023 Telephone Hematology/Oncology at [address] [phone] Bhumi Maradiaga Social History Tobacco Use Types Packs/Day Years [...] slept in a fpc (including now)? No 03/27/2021 Sex and Gender Information Value Date Recorded Sex Assigned at Not on file Gender Identity Not on file Sexual Orientation Not on file documented as of this encounter Miscellaneous Notes * Telephone Encounter - Bhumi Maradiaga - 01/27/2023 4:55 PM EDT Tried to call to see if she was getting labs done no answer could not leave a message documented in this encounter Plan of Treatment Upcoming Encounters Date Type Department Care Team (Late st Contact Info) Description 12/08/2023 3:30 PM EDT Office Visit Hematology/Oncology at [address] [address] Chase Mckay MD [facility] DR [place] [address] documented as of this encounter Visit Diagnoses Not on filedocumented in this encounter Care Teams Linux Admin Relationship Specialty Start Date End Date Tavia Ramirez APR[place] [address] PCP - General Family Medicine 06/11/22 documented as of this encounter
--- OUTSIDE RECORDS SUMMARY | 2023-11-21 15:56 | XMS_ITS | Encounter Summary ---
Author Organization [facility] [place] [address] Care Team Providers Care Security Engineer Name Role Phone Tavia Ramirez APRN Primary Care Provider [phone] Reason for Visit * Reason Comments Chemotherapy C34 Pembrolizumab * Treatment/Therapy Plan Authorization (Routine) - Closed Specialty Diagnoses / Procedures Referred By Contac t Referred To Contact Hematology and Oncology Diagnoses Metastatic urothelial carcinoma Abnormal thyroid function test Procedures [id number] Jose Barnhart MD [address] [place] [address] [place] [address] Jose Lange MD [address] [place] [address] [place] [address] Referral ID Status Reason Start Date Expiration Date Visits Re quested Visits Authorized [id number] Closed 04/28/2022 06/24/2023 99 99 Encounter Details Date Type Department Care Team (Late st Contact Info) Description 04/22/2023 12:00 PM EST Infusion Hematology Oncology at [address] [phone] Metastatic urothelial carcinoma Social History Tobacco Use [...] as of this encounter Progress Notes * Hodan Jean, RN - 04/22/2023 12:00 PM EST INFUSION THERAPY ADMINISTRATION NOTES DIAGNOSIS: Metastatic urothelial cancer and primary lung cancer CYCLE #: 34, Day 1 - Pembrolizumab REASON FOR VISIT: To receive planned chemotherapy. SUBJECTIVE: Barb offers no complaints. OBJECTIVE: Seen by provider. Ready to treat. LAB DATA: Done today at [facility] and adequate for treatment. IV ACCESS: Port accessed off site. Flushes readily with brisk blood return. Pre administration: Chemotherapy orders independently verified for drug name, route, and dosage per patient's height, weight and BSA by Hodan Jean, RN and Staff Pharmacist(s). REACTIONS (DESCRIPTION, TIME, [...] PM EDT Office Visit Hematology/Oncology at [address] [phone] Chase Mckay MD [facility] [address] [place] [address] documented as of this encounter Visit Diagnoses Diagnosis Metastatic urothelial carcinoma Secondary malignant neoplasm of other urinary organs documented in this encounter Administered Medications Inactive Administered Medications - up to 3 most recent administrations Medication Order MAR Action Action Date Dose Rate Site heparin (pf) (porcine) (100 units/mL) flush 5 mL syringe 500 Units 500 Units, Intravenous, ONCE PRN, Starting on Fri04/22/23 at 1205, Until Fri04/22/23 at 1530, Line Care, Refer to Intravenous (IV) Procedure: Accessing Implanted Vascular Access Devices (194) procedure and/or Intravenous (IV) Job Aid: Adult Flushing & Catheter Care (0734) job aid for additional information regarding guidelines and administration., Routine Given 04/22/2023 1:13 PM EST 500 Units pembrolizumab (Keytruda) 200 mg in sodium chloride 0.9% 108 mL infusion 200 mg, Intravenous, ONCE, 1 dose, On Fri04/22/23 at 1330, Administer over 30 Minutes, Flush line with NS after each dose., This agent is restricted to outpatient use. Is this drug being given as an outpatient? Yes New Bag 04/22/2023 12:40 PM EST 200 mg 216 mL/hr sodium chloride 0.9 % (flush) (BD PosiFlush Normal Saline 0.9) flush 5-20 mL 5-20 mL, Intravenous, EVERY 1 MIN PRN, Starting on Fri04/22/23 at 1205, Until Fri04/22/23 at 1530, Line Care, Flush pertains to all indwelling lines. Flush per protocol found in the job aid using the link provided on this medication record. Refer to Intravenous (IV) Job Aid: Adult Flushing & Catheter Care (0318) job aid for additional information regarding guidelines and administration., Routine Given 04/22/2023 1:13 PM EST 20 mLs sodium chloride 0.9% infusion 100 mL/hr, Intravenous, CONTINUOUS, Starting on Fri04/22/23 at 1230, Until Fri04/22/23 at 1530 New Bag 04/22/2023 12:38 PM EST 100 mL/hr 100 mL/hr documented in this encounter Care Teams Security Engineer Relationship Specialty Start Date End Date Tavia Ramirez, ALESSANDRO [address] [place] [address] PCP - General Family Medicine 06/11/22 documented as of this encounter
--- OUTSIDE RECORDS SUMMARY | 2023-11-21 15:56 | XMS_ITS | Encounter Summary ---
Author Organization [facility] Address [facility] [place] [address] Care Team Providers Care Spring Fitter Name Role Phone James Tavia Foster APRN Primary Care Provider [phone] Encounter Details Date Type Department Care Team (Late st Contact Info) Description 04/01/2023 9:30 AM EST Office Visit Hematology/Oncology at [address] [phone] Jose Lange MD [facility] [address] HEMATOLOGY [place] [address] Katherine Sepulveda APRN [facility] [place] [address] Metastatic urothelial carcinoma; Hypothyroidism due to drugs; Anemia, unspecified type; 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; Primary lung adenocarcinoma, left Social History Tobacco [...] Sign Reading Time Taken Comments Blood Pressure 128/60 04/01/2023 10:03 AM EST Pulse 96 04/01/2023 10:03 AM EST Temperature 36 ??C (96.8 ??F) 04/01/2023 10:03 AM EST Respiratory Rate 16 04/01/2023 10:03 AM EST Oxygen Saturation 93% 04/01/2023 10:03 AM EST Inhaled Oxygen Concentration - - Weight 73 kg (161 lb) 04/01/2023 10:03 AM EST Height 163.8 cm (5' 4.49) 04/01/2023 10:[address] Body Mass Index 27.22 04/01/2023 10:03 AM EST documented in this encounter Progress Notes * Jose Lange MD - 04/01/2023 9:30 AM EST Images from the original note were not included. Hematology & Medical Oncology [address] [id number] Barb returns today to continue treatment for [...] distinct lung primary. She was seen by reference assistant , who recommended rigid bronchoscopy with attempts [...] and she continues on treatment. Interval history 04/01/23 Barb returns today for followup of her metastatic bladder cancer/primary lung cancer . She feels more winded with exertion periodically. She continues on pembrolizumab without any issues.. No fever or chills.. She denies any chest pain or cough. She denies any rashes or bruising. Her appetite is good. She has no issues with her bowels. ROS is otherwise negative. Allergies: No Known Allergies Medications: Your Medications Accurate as of April 01, 2023 10:13 AM. If you have any questions, ask [...] supraclavicular, and axillary nodes normal Vitals BP 128/60 (Patient Position: Sitting) Pulse 96 Temp 36 ??C (96.8 ??F) (Temporal) Resp 16 Ht 163.8 cm (5' 4.49) Wt 73 kg (161 lb) SpO2 93% BMI 27.22 kg/m?? 04/04/21 ADDENDUM DISCUSSION PD-L1 [...] The assay was performed according to the helicopter crew chief's instructions using Anti-PD-L1 (22C3, pharmDX) antibody. Electronically signed by: Herbert Ford MD Verified: 04/11/2021 8:14 Pathologist Performed at: -[facility], [place], [place] Surgical Pathology DIAGNOSIS A - Lung, left lower lobe mass, debulking: - Adenocarcinoma, consistent with lung primary. Electronically signed by: Sana Dowell MD Verified: 04/06/2021 11:16 Pathologist Performed at: -[facility] [place], [place], [place] DISCUSSION Sections show an invasive, predominantly [...] propria. - No muscularis propria identified. Labs: 04/01/2023 WBC 12.86, hemoglobin 11, platelet count 575, ANC 8.47, BUN 15, creatinine 1.7, calcium 8.7, AST 12, ALT 8, alkaline phosphatase 74, total protein 8.4, TSH 2.14, free T40.97 03/11/23 WBC 10.88, Hgb 11.1/Hct 36.4, PLT [...] of presumably metastatic urothelial carcinoma which include [place] based chemotherapy versus immunotherapy. Due to her [...] treatment options Will continue pembrolizumab for now. # Low back pain left side pain- Has Rx for Tramadol 50 mg(1/2) every 12 hours with tylenol in between if needed. She follows with Palliative Care. #Abnormal thyroid function: levothyroxine is 75 mcg daily. Will monitor thyroid function. #Renal insufficiency: Cr 1.6 today, stable, She has bilateral nephrostomy tubes and follows up with nephrology. Continues with tube exchange [id number]. # Anemia- mild- asymptomatic. Continue to monitor Plan: 1 Proceed with C33 Pembrolizumab today as scheduled. 2. 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
--- OUTSIDE RECORDS SUMMARY | 2023-11-21 15:56 | XMS_ITS | Encounter Summary ---
Author Organization [facility] [place] [address] Care Team Providers Care Switch Inspector Name Role Phone Tavia Ramirez APRN Primary Care Provider [phone] Reason for Visit * Reason Comments Chemotherapy C33 Pembrolizumab * Treatment/Therapy Plan Authorization (Routine) - Closed Specialty Diagnoses / Procedures Referred By Contac t Referred To Contact Hematology and Oncology Diagnoses Metastatic urothelial carcinoma Abnormal thyroid function test Procedures [id number] Jose Barnhart MD [address] [place] [address] DR [place] [address] Jose Lange MD [address] [place] [address] DR [place] [address] Referral ID Status Reason Start Date Expiration Date Visits Re quested Visits Authorized [id number] Closed 04/28/2022 06/24/2023 99 99 Encounter Details Date Type Department Care Team (Late st Contact Info) Description 04/01/2023 10:00 AM EST Infusion Hematology Oncology at [address] [phone] Metastatic urothelial carcinoma Social History Tobacco Use [...] Progress Notes * Hodan Jean, RN - 04/01/2023 10:00 AM EST INFUSION THERAPY ADMINISTRATION NOTES DIAGNOSIS: Metastatic urothelial cancer and primary lung cancer CYCLE #: 33, Day 1 - Pembrolizumab REASON FOR VISIT: To receive planned chemotherapy. SUBJECTIVE: Barb offers no complaints. OBJECTIVE: Seen by provider. Ready to treat. LAB DATA: Done today at [facility] and adequate for treatment. IV ACCESS: Port [...] PM EDT Office Visit Hematology/Oncology at [address] [phone] Chase Mckay MD [facility] DR HEMATOLOGY [place] [address] documented as of this encounter Visit Diagnoses Diagnosis Metastatic urothelial carcinoma Secondary malignant neoplasm of other urinary organs documented in this encounter Administered Medications Inactive Administered Medications - up to 3 most recent administrations Medication Order MAR Action Action Date Dose Rate Site heparin (pf) (porcine) (100 units/mL) flush 5 mL syringe 500 Units 500 Units, Intravenous, ONCE PRN, Starting on Fri04/01/23 at 1037, Until Fri04/01/23 at 1408, Line Care, Refer to Intravenous (IV) Procedure: Accessing Implanted Vascular Access Devices (614) procedure and/or Intravenous (IV) Job Aid: Adult Flushing & Catheter Care (9575) job aid for additional information regarding guidelines and administration., Routine Given 04/01/2023 11:57 AM EST 500 Units pembrolizumab (Keytruda) 200 mg in sodium chloride 0.9% 108 mL infusion 200 mg, Intravenous, ONCE, 1 dose, On Fri04/01/23 at 1200, Administer over 30 Minutes, Flush line with NS after each dose., This agent is restricted to outpatient use. Is this drug being given as an outpatient? Yes New Bag 04/01/2023 11:20 AM EST 200 mg 216 mL/hr sodium chloride 0.9 % (flush) (BD PosiFlush Normal Saline 0.9) flush 5-20 mL 5-20 mL, Intravenous, EVERY 1 MIN PRN, Starting on Fri04/01/23 at 1037, Until Fri04/01/23 at 1408, Line Care, Flush pertains to all indwelling lines. Flush per protocol found in the job aid using the link provided on this medication record. Refer to Intravenous (IV) Job Aid: Adult Flushing & Catheter Care (1102) job aid for additional information regarding guidelines and administration., Routine Given 04/01/2023 11:57 AM EST 20 mLs documented in this encounter Care Teams Switch Inspector Relationship Specialty Start Date End Date Tavia Ramirez, BINGO CALLER [address] [place] [address] PCP - General Family Medicine 06/11/22 documented as of this encounter
--- OUTSIDE RECORDS SUMMARY | 2023-11-21 15:56 | XMS_ITS | Encounter Summary ---
Author Organization [facility] [place] [address] Care Team Providers Care Glass Scullion Name Role Phone Tavia Ramirez APRN Primary Care Provider [phone] Reason for Visit * Reason Comments Chemotherapy * Treatment/Therapy Plan Authorization (Routine) - Closed Specialty Diagnoses / Procedures Referred By Contac t Referred To Contact Hematology and Oncology Diagnoses Metastatic urothelial carcinoma Abnormal thyroid function test Procedures [id number] Jose Barnhart MD [address] [place] [address] [place] [address] Jose Lange MD [address] [place] [address] [place] [address] Referral ID Status Reason Start Date Expiration Date Visits Re quested Visits Authorized [id number] Closed 04/28/2022 06/24/2023 99 99 Encounter Details Date Type Department Care Team (Late st Contact Info) Description 01/28/2023 10:00 AM EDT Infusion Hematology Oncology at [address] [phone] Metastatic urothelial carcinoma Social History Tobacco Use [...] in a fdc (including now)? No 03/27/2021 Sex and Gender Information Value Date Recorded Sex Assigned at Not on file Gender Identity Not on file Sexual Orientation Not on file documented as of this encounter Progress Notes * Chalino Bourne, RN - 01/28/2023 10:00 AM EDT INFUSION THERAPY ADMINISTRATION NOTES DIAGNOSIS: Metastatic urothelial cancer and primary lung cancer CYCLE #: Cycle 30, Day 1 - Pembrolizumab REASON FOR VISIT: To receive planned chemotherapy. SUBJECTIVE: Barb offers no complaints. OBJECTIVE: Seen by provider. Ready to treat. LAB DATA: Done today at [facility] and adequate for treatment. IV [...] 3:30 PM EDT Office Visit Hematology/Oncology at [address] [phone] Chase Mckay MD [facility] [address] [place] [address] documented as of this encounter Visit Diagnoses Diagnosis Metastatic urothelial carcinoma Secondary malignant neoplasm of other urinary organs documented in this encounter Administered Medications Inactive Administered Medications - up to 3 most recent administrations Medication Order MAR Action Action Date Dose Rate Site heparin (pf) (porcine) (100 units/mL) flush 5 mL syringe 500 Units 500 Units, Intravenous, ONCE PRN, Starting on 01/28/23 at 0953, Until Tu01/28/23 at 1724, Line Care, Refer to Intravenous (IV) Procedure: Accessing Implanted Vascular Access Devices (514) procedure and/or Intravenous (IV) Job Aid: Adult Flushing & Catheter Care (1794) job aid for additional information regarding guidelines and administration., Routine Given 01/28/2023 11:24 AM EDT 500 Units pembrolizumab (Keytruda) 200 mg in sodium chloride 0.9% 108 mL infusion 200 mg, Intravenous, ONCE, 1 dose, On 01/28/23 at 1115, Administer over 30 Minutes, Flush line with NS after each dose., This agent is restricted to outpatient use. Is this drug being given as an outpatient? Yes New Bag 01/28/2023 10:46 AM EDT 200 mg 216 mL/hr documented in this encounter Care Teams Glass Scullion Relationship Specialty Start Date End Date Tavia Ramirez APRN [address] [place] [place] [address] PCP - General Family Medicine 06/11/22 documented as of this encounter
--- OUTSIDE RECORDS SUMMARY | 2023-11-21 15:56 | XMS_ITS | Encounter Summary ---
[place] [address] Care Team Providers Care Social Service Director Name Role Phone Tavia Ramirez APRN Primary Care Provider Reason for Referral * Diagnostic Test (Routine) - Closed Specialty Diagnoses / Procedures Referred By Contac t Referred To Contact Radiology Diagnoses Bilateral hydronephrosis Obstructive uropathy Procedures IR Nephrogram/Nephrostomy Tube Exchange Bilateral Alin Dillard MD [facility] [place] [address] [place] [address] Referral ID Status Reason Start Date Expiration Date V isits Requested Visits Authorized [id number] Closed Specialty Service Requested 02/13/2023 08/14/2024 1 1 * Diagnostic Test (Routine) - Closed Specialty Diagnoses / Procedures Referred By Contac t Referred To Contact Radiology Diagnoses Bilateral hydronephrosis Procedures IR Nephrogram/Nephrostomy Tube Exchange Bilateral Ana Gandhi PA [facility] [place] [address] [place] [address] Referral ID Status Reason Start Date Expiration Date V isits Requested Visits Authorized [id number] Closed Specialty Service Requested 02/13/2023 08/14/2024 1 1 Reason for Visit * Diagnostic Test (Routine) - Closed Specialty Diagnoses / Procedures Referred By Etta no Referred To Contact Radiology Diagnoses Bilateral hydronephrosis Procedures IR Nephrogram/Nephrostomy Tube Exchange Bilateral [place] PA [facility] [place] [address] [facility] [place] [address] Referral ID Status Reason Start Date Expiration Date V isits Requested Visits Authorized [id number] Closed Specialty Service Requested 02/13/2023 08/14/2024 1 1 Encounter Details Date Type Department Care Team (Latest Contact Info) Description 02/13/2023 1:05 PM EDT - 02/13/2023 11:59 PM EDT Hospital [place] [address] Alin Dillard MD [facility] [place] [address] Bilateral hydronephrosis; Obstructive uropathy Discharge [...] Sign Reading Time Taken Comments Blood Pressure 145/75 02/13/2023 4:00 PM EDT Pulse 70 02/13/2023 2:26 PM EDT Temperature 36.2 ??C (97.2 ??F) 02/13/2023 2:26 PM ED T Respiratory Rate 18 02/13/2023 4:00 PM EDT Oxygen Saturation 96% 02/13/2023 4:00 PM EDT Inhaled Oxygen Concentration - - Weight - - Height - - Body Mass Index - - documented in this encounter Discharge Instructions * Discharge Instructions* Leo Salcido RN - 02/13/2023 3:24 PM EDT Images from the original note were not included. [facility] Vascular and Interventional Radiology Discharge Instructions for [...] connecting tubing from the drain. Put a or first assist registered nurse on both the drain and the bag. [...] is during regular office hours, please call [phone]. If it is after regular office hours, or on weekends or holidays, please call [phone] and ask to speak to the Bottle Packer instructional supervisor for Interventional Radiology. You may resume your regular diet as [...] Progress Notes * Leo Salcido RN - 02/13/2023 4:24 PM EDT ANGIO NURSING DATABASE Name: Barb Bullard Date of : 1950 AGE: 72 y.o. [address]: [address] [place] [phone] (home) Mobile: Telephone Information: Referring Provider: Ana Gandhi REASON FOR VISIT: Order Questions Answers Where will study be performed? [facility] Radiology [120] Reason for exam and clinical history: 72F with Metastatic urothelial carcinoma and b/l PCNs (last exchanged 12/11/22), Patient reporting R side may be blocked. Gets exchanges Q10 weeks due to rapid encrustation. Is the patient on anticoagulant / antiplatelet therapy ? No Planned procedure: bilateral neph tube exchange Labs to be performed day of procedure: No labs Sedation: Fentanyl only Prophylactic antibiotic : Cipro Contrast: Omnipaque Additional medications for procedure: Lidocaine; Lido jelly Planned access site: pre-existing Position: Prone Consent: Pending Medications to discontinue (and days held): None Case Urgency:: G2- Elective Outpatient intervention within 8-14 days No Known Allergies Pertinent PMH: Patient Active Problem List Diagnosis Code Metastatic urothelial carcinoma C79.10 Abnormal thyroid function test R94.6 Anemia D64.9 Bilateral hydronephrosis N13.30 Folate deficiency E53.8 Lung mass R91.8 Obstructive uropathy N13.9 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 C34.32 Date/Procedure Meds given/comments 02/20/21 b/l PCN Placement [...] Lidojelly, Ciprofloxacin 500mg PO, Zofran 4mg PO. 1537 to procedure room IR1 via stretcher. Onto table prone. All monitors, O2, safety strap in place. Meds per protocol. Laboratory Results: Lab Results Component Value Date CREATININE 1.54 (H) 07/13/2021 Lab Results Component Value Date K 4.5 04/16/2021 Lab Results Component Value Date PLATELET 873 (H) 04/16/2021 documented in this encounter H&P Notes * Ranjit Hale MD - 02/13/2023 11:59 PM EDT Images from the original note were not included. INTERVENTIONAL RADIOLOGY FOCUSED H&P and PRE-PROCEDURE NOTE: PCP: Tavia Ramirez APRN Referring Provider: Dr. Alin Dillard Planned Procedure: Bilateral nephrostomy tube exchange Procedure Indication: Metastatic urothelial carcinoma, Routine Exchanges Q6 weeks due to rapid encrustation. Procedure Request: Procedure request received through the Interventional Radiology eDH order queue. Presenting Diagnosis/ Complaint: Barb Bullard is a 72 y.o. female with presenting to IR for bilateral PCN exchange in the s/o obstructive uropathy and bilateral hydronephrosis 2/2 metastatic urothelial carcinoma and primary lung cancer. Last exchanged on 02/13/23 with findings of occluded R neph tube and rapid encrustration of both neph tubes, requiring more frequent q6 weeks routine exchange. Remainder of the patient's PMHx as outlined below. Antiplatelets: None. Anticoagulants: None. No Recent Laboratories: Getting Laboratories Before Procedure: None. Allergies: No known allergies. IR history: Date/Procedure Meds given/comments 02/20/21 b/l [...] Lidojelly, Ciprofloxacin 500mg PO, Zofran 4mg PO. Past Medical/Surgical History: Patient Active Problem List Diagnosis Code Metastatic urothelial carcinoma C79.10 Abnormal thyroid function test R94.6 Anemia D64.9 Bilateral hydronephrosis N13.30 Folate deficiency E53.8 Lung mass R91.8 Obstructive uropathy N13.9 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 C34.32 No past medical history on file. Past Surgical History: Procedure Laterality Date IR MEDIPORT PLACEMENT 04/02/2021 IR Mediport Placement 04/02/2021 Yuval Sinclair PA [facility] INTERVENTIONL RAD IR NEPHROSTOMY TUBE EXCHANGE BILATERAL 04/24/2022 IR Nephrogram/Nephrostomy Tube Exchange Bilateral 04/24/2022 Alin Dillard MD [facility] INTERVENTIONL RAD IR NEPHROSTOMY TUBE EXCHANGE BILATERAL 07/26/2022 IR Nephrogram/Nephrostomy Tube Exchange Bilateral 07/26/2022 Robe Hope PA [facility] INTERVENTIONL RAD IR NEPHROSTOMY TUBE EXCHANGE BILATERAL 10/18/2022 IR Nephrogram/Nephrostomy Tube Exchange Bilateral 10/18/2022 Aelxis De La Cruz MD [facility] INTERVENTIONL RAD IR NEPHROSTOMY TUBE EXCHANGE BILATERAL 12/11/2022 IR Nephrogram/Nephrostomy Tube Exchange Bilateral 12/11/2022 Alexis De La Cruz MD [facility] INTERVENTIONL RAD IR NEPHROSTOMY TUBE EXCHANGE BILATERAL 02/13/2023 IR Nephrogram/Nephrostomy Tube Exchange Bilateral 02/13/2023 Alin Dillard MD [facility] INTERVENTIONL RAD IR NEPHROSTOMY TUBE PLACEMENT PERCUTANEOUS BILATERAL 02/20/2021 IR Nephrostomy Tube Placement Percutaneous Bilateral [facility] INTERVENTIONL RAD IR NEPHROURETERAL (NU) STENT PLACEMENT/CHECK/CHANGE 07/13/2021 IR Nephroureteral (NU) Stent Placement Check/Change 07/13/2021 Alexis De La Cruz MD [facility] INTERVENTIONLRAD IR NEPHROURETERAL (NU) STENT PLACEMENT/CHECK/CHANGE 10/23/2021 IR Nephroureteral (NU) Stent Placement Check/Change 10/23/2021 Zeferino Rosado MD [facility] INTERVENTIONL RAD IR NEPHROURETERAL (NU) STENT PLACEMENT/CHECK/CHANGE 01/18/2022 IR Nephroureteral (NU) Stent Placement Check/Change 01/18/2022 Guillermo Nice MD [facility] INTERVENTIONLRAD PRO [facility] EBUS GUIDED SAMPL 3/> NODE STATION/STRUX N/A 04/04/2021 BRONCH, W ENDOBRONCHIAL ULTRASOUND (EBUS) GUIDED SAMPLING, 3+ NODES (WRVU 5.21) performed by Alonzo Cevallos MD at [facility] MAIN OR PRO BRONCHOSCOPY, DIAGNOSTIC W LAVAGE N/A 04/04/2021 BRONCHOSCOPY, RIGID OR FLEXIBLE, WITH BRONCHIAL ALVEOLAR LAVAGE (WRVU 2.88) performed by Alonzo Cevallos MD at [facility] MAIN OR Medications: Current Outpatient Medications on File Prior to Encounter Medication Sig Dispense Refill levothyroxine (Synthroid) 75 mcg tablet Take 1 [...] for Nausea. (Patient not taking: Reported on 08/07/2021) 15 tablet 0 No current facility-administered medications on file prior to encounter. Allergies: Patient has no known allergies. Social History and Habits: Social History Socioeconomic History Marital status: Single Spouse name: Not on file Number of children: Not on file Years of education: Not on file Highest education level: Not on file Occupational History Not on file Tobacco Use Smoking status: Former Types: Cigarettes Quit date: 07/04/2014 Years since quittin.6 Smokeless tobacco: Never Vaping Use Vaping Use: Never used Substance and Sexual Activity Alcohol use: Not Currently Drug use: Never Sexual activity: Not on file Other Topics Concern Not on file Social History Narrative Not on file Social Determinants of Health Financial Resource Strain: Unknown (03/27/2021) Overall Financial Resource Strain (CARDIA) Difficulty of Paying Living Expenses: Patient refused Food Insecurity: Unknown (03/27/2021) Hunger Vital Sign Worried About Running Out of Food in the Last Year: Patient refused Ran Out of Food in the Last Year: Patient refused Transportation Needs: No Transportation Needs (03/27/2021) PRAPARE [...] day of procedure) Assessment: 72 y.o. female with presenting to IR for routine bilateral PCN exchange. Reviewed with Attending: Dr. Nice Plan: Planned procedure: Nephrogram/Nephrostomy Tube Exchange Bilateral Labs to be performed day of procedure: No labs Sedation: No Sedation Prophylactic antibiotic : Cipro Contrast: Omnipaque Additional medications for procedure: Lidocaine; Lido jelly Planned access site: Preexisting PCNs Position: Prone Consent: Scanned Medications to discontinue (and days held): None Case Urgency:: G2- Elective Outpatient intervention within 8-14 days 02/28/2023 Ranjit Hale MD (Todd) Bottle Packer PGY4 documented in this encounter Plan of Treatment Upcoming Encounters Date Type Department Care Team (Late st Contact Info) Description 12/08/2023 3:30 PM EDT Office Visit Hematology/Oncology at [address] [phone] Chase Mckay MD [facility] HEMATOLOGY [place] [address] documented as of this encounter Procedures Procedure Name Priority Date/Time Associated Diagnosis Comments IR NEPHROGRAM/NEPHROS RAMONA TUBE EXCHANGE BILATERAL Routine 02/13/2023 4:31 PM EDT Bilateral hydronephrosis documented in this encounter Results * IR Nephrogram/Nephrostomy Tube Exchange Bilateral (04/04/2023 1:59 PM EST) Anatomical Region Laterality Modality X-Ray Angiograph y Narrative 04/04/2023 1:51 PM EST Preoperative Diagnosis: ? Chronic indwelling bialteral nephrostomy tubes for routine change. Postoperative Diagnosis: ?? Same Procedure Performed: Over the wire exchange of nephrostomy tubes Estimated Blood Loss: None Fluoroscopy time: Please see [facility] IR technologist record for procedural dose/time Operators: [...] performed the entire procedure. Alin Dillard MD [facility] IR ORDERABLES * IR Nephrogram/Nephrostomy Tube Exchange Bilateral (02/13/2023 4:31 PM EDT) Anatomical Region Laterality Modality X-Ray Angiograph y Narrative 02/13/2023 4:51 PM EDT Preoperative Diagnosis: ? Chronic indwelling nephrostomy tubes for routine change. Postoperative Diagnosis: ?? Same Procedure Performed: Over the wire exchange of nephrostomy tubes Estimated Blood Loss: None Fluoroscopy time: Please see [facility] IR technologist record for procedural dose/time Operators: [...] and renal collecting system. ??A new 10 Turkish tube was then advanced over the wire [...] performed the entire procedure. Alin Dillard MD IMG IR ORDERABLES documented in this [...] ONCE PRN, 1 dose, Starting on Nicolasa 02/13/23 at 1631, Until Nicolasa 02/13/23 at 1632, Per Protocol, Warning Vesicant/Irritant Medication , Routine Given 02/13/2023 4:32 PM EDT 10 mLs lidocaine (Glydo) 2 % gel 6 mL 6 mL, Topical (Top), EVERY 4 HOURS PRN, Starting on Nicolasa 02/13/23 at 1420, Until Nicolasa 02/13/23 at 1646, Pain, For use in Interventional Radiology (IR) only for procedure with direct provider supervision and verbal order., Angio/IR (Intra-Procedure), Routine Given 02/13/2023 3:35 PM EDT 6 mLs ondansetron ODT (Zofran-ODT) disintegrating tablet 4 mg 4 mg, Oral, EVERY 8 HOURS PRN, Starting on Nicolasa 02/13/23 at 1457, Until Fri02/14/23 at 0435, Nausea, Routine Given 02/13/2023 3:00 PM EDT 4 mg documented in this encounter Care Teams Social Service Director Relationship Specialty Start Date End Date Tavia Ramirez [place] [address] [place] [address] PCP - General Family Medicine 06/11/22 documented as of this encounter
--- OUTSIDE RECORDS SUMMARY | 2023-11-21 15:56 | XMS_ITS | Encounter Summary ---
Author Organization [facility] [place] [address] Care Team Providers Care Dry Can Tender Name Role Phone Tavia Ramirez ALESSANDRO Primary Care Provider [phone] Encounter Details Date Type Department Care Team (Late st Contact Info) Description 02/13/2023 Notes [place] [phone] Adeel Gutierrez MD [facility] [place] [address] Social History Tobacco Use Types Packs/Day Years [...] as of this encounter H&P Notes * Adeel Gutierrez MD - 02/13/2023 10:17 AM EDT Images from the original note were not included. INTERVENTIONAL RADIOLOGY FOCUSED H&P and PRE-PROCEDURE NOTE: PCP: Tavia Ramirez APRN Referring Provider: Ana Gandhi PA-C Planned Procedure: Planned procedure: bilateral neph tube exchange Procedure Indication: 72F with Metastatic urothelial carcinoma and b/l PCNs (last exchanged 12/11/22), Patient reporting R side may be blocked. Gets exchanges Q10 weeks due to rapid encrustation. Procedure Request: Procedure request received through the Interventional Radiology eDH order queue. Presenting Diagnosis/ Complaint: Barb Bullard is a 72 y.o. female with PHMx of metastatic urothelial carcinoma and primary lung cancer. She intially presented to hematology with kidney failure and bilateral hydronephrosis 2/2 to bladder cancer. Bilateral nephrostomy tubes placed 02/20/23 with IR. See full IR history below. She now presents back to IR for bilateral PCN exchange for Q10 week routine exchanges. IR Hx: 02/20/21 b/l PCN Placement No abx - [...] PCN exchange Lido jelly, Ciprofloxacin 500mg PO Past Medical/Surgical History: Patient Active Problem List [...] IR Mediport Placement 04/02/2021 Yuval Sinclair PA [facility] INTERVENTIONL RAD IR NEPHROSTOMY TUBE EXCHANGE BILATERAL 04/24/2022 IR Nephrogram/Nephrostomy Tube Exchange Bilateral 04/24/2022 Alin Dillard MD [facility] INTERVENTIONL RAD IR NEPHROSTOMY TUBE EXCHANGE BILATERAL 07/26/2022 IR Nephrogram/Nephrostomy Tube Exchange Bilateral 07/26/2022 Robe Hope PA [facility] INTERVENTIONL RAD IR NEPHROSTOMY TUBE EXCHANGE BILATERAL 10/18/2022 IR Nephrogram/Nephrostomy Tube Exchange Bilateral 10/18/2022 Alexis De La Cruz MD [facility] INTERVENTIONL RAD IR NEPHROSTOMY TUBE EXCHANGE BILATERAL 12/11/2022 IR Nephrogram/Nephrostomy Tube Exchange Bilateral 12/11/2022 Alexis De La Cruz MD [facility] INTERVENTIONL RAD IR NEPHROSTOMY TUBE PLACEMENT PERCUTANEOUS BILATERAL 02/20/2021 IR Nephrostomy Tube Placement Percutaneous Bilateral [facility] INTERVENTIONL RAD IR NEPHROURETERAL (NU) STENT PLACEMENT/CHECK/CHANGE 07/13/2021 IR Nephroureteral (NU) Stent Placement Check/Change 07/13/2021 Alexis De La Cruz MD [facility] INTERVENTIONLRAD IR NEPHROURETERAL (NU) STENT PLACEMENT/CHECK/CHANGE 10/23/2021 IR Nephroureteral (NU) Stent Placement Check/Change 10/23/2021 Zeferino Rosado MD [facility] INTERVENTIONL RAD IR NEPHROURETERAL (NU) STENT PLACEMENT/CHECK/CHANGE 01/18/2022 IR Nephroureteral (NU) Stent Placement Check/Change 01/18/2022 Guillermo Nice MD [facility] INTERVENTIONLRAD PRO [facility] EBUS GUIDED SAMPL 3/> NODE STATION/STRUX N/A 04/04/2021 BRONCH, W ENDOBRONCHIAL ULTRASOUND (EBUS) GUIDED SAMPLING, 3+ NODES (WRVU 5.21) performed by Alonzo Cevallos MD at [facility] MAIN OR PRO BRONCHOSCOPY, DIAGNOSTIC W LAVAGE N/A 04/04/2021 BRONCHOSCOPY, RIGID OR FLEXIBLE, WITH BRONCHIAL ALVEOLAR LAVAGE (WRVU 2.88) performed by Alonzo Cevallos MD at [facility] MAIN OR Medications: Current Outpatient Medications on File Prior to Visit Medication Sig Dispense Refill levothyroxine (Synthroid) 75 [...] current facility-administered medications on file prior to visit. Allergies: Patient has no known allergies. Social [...] (Non-Medical): No Physical Activity: Not on file Housing Stability: Unknown (03/27/2021) [...] of procedure) Assessment: 72 y.o. female with bilateral PCN presenting to IR for routine bilateral PCN exchange. Reviewed with Attending: Dr. Dillard Plan: Planned procedure: bilateral neph tube exchange Labs to be performed day of procedure: No labs Sedation: Fentanyl only Prophylactic antibiotic : Cipro Contrast: Omnipaque Additional medications for procedure: Lidocaine; Lido jelly Planned access site: pre-existing Position: Prone Consent: Pending Medications to discontinue (and days held): None Case Urgency:: G2- Elective Outpatient intervention within 8-14 days 02/13/2023 Adeel Gutierrez MD PGY2 Interventional Radiology P: [id number] documented in this encounter Plan of Treatment Upcoming Encounters Date Type Department Care Team (Late st Contact Info) Description 12/08/2023 3:30 PM EDT Office Visit Hematology/Oncology at [address] [phone] Chase Mckay MD [facility] [address] HEMATOLOGY [place] [address] documented as of this encounter Visit Diagnoses Not on filedocumented in this encounter Care Teams Dry Can Tender Relationship Specialty Start Date End Date Tavia Ramirez APR[place] [place] [address] PCP - General Family Medicine 06/11/22 documented as of this encounter
--- OUTSIDE RECORDS SUMMARY | 2023-11-21 15:56 | XMS_ITS | Encounter Summary ---
Author Organization [facility] [place] [address] Care Team Providers Care Exhibition Organiser Name Role Phone James Tavia Foster APRN Primary Care Provider [phone] Encounter Details Date Type Department Care Team (Latest Contact Info) Description 02/18/2023 Travel Social History Tobacco Use Types Packs/Day [...] PM EDT Office Visit Hematology/Oncology at [address] [phone] Chase Mckay MD [facility] [address] HEMATOLOGY [place] [address] documented as of this encounter Visit Diagnoses Not on filedocumented in this encounter Care Teams Exhibition Organiser Relationship Specialty Start Date End Date Tavia Ramirez [place] [address] [place] [address] PCP - General Family Medicine 06/11/22 documented as of this encounter
--- OUTSIDE RECORDS SUMMARY | 2023-11-21 15:56 | XMS_ITS | Encounter Summary ---
Author Organization [facility] [place] [address] Care Team Providers Care Crew Lead Name Role Phone James Tavia Foster APRN Primary Care Provider [phone] Encounter Details Date Type Department Care Team (Late st Contact Info) Description 03/11/2023 2:00 PM EST Office Visit Hematology/Oncology at [address] [phone] Katherine Sepulveda APRN [facility] [place] [address] Metastatic urothelial carcinoma; Hypothyroidism due to drugs; Anemia, unspecified type [...] slept in a longterm (including now)? No 03/27/2021 Sex and Gender Information Value Date Recorded Sex Assigned at Not on file Gender Identity Not on file Sexual Orientation Not on file documented as of this encounter Last Filed Vital Signs Vital Sign Reading Time Taken Comments Blood Pressure 153/73 03/11/2023 1:49 PM EST Pulse 88 03/11/2023 1:49 PM EST Temperature 36.2 ??C (97.1 ??F) 03/11/2023 1:49 PM ES T Respiratory Rate 16 03/11/2023 1:49 PM EST Oxygen Saturation 97% 03/11/2023 1:49 PM EST Inhaled Oxygen Concentration - - Weight 71.8 kg (158 lb 6.4 oz) 03/11/2023 1:49 P M EST Height 163.8 cm (5' 4.49) 03/11/2023 1:49 PM ES T Body Mass Index 26.78 03/11/2023 1:49 PM EST documented in this encounter Progress Notes * Katherine Sepulveda, ALESSANDRO - 03/11/2023 2:00 PM EST Images from the original note were not included. Hematology & Medical Oncology [address] [address] Barb returns today to continue [...] distinct lung primary. She was seen by applications system analyst , who recommended rigid bronchoscopy with attempts [...] and she continues on treatment. Interval history 02/18/23 Barb returns today for followup of her metastatic bladder cancer/primarylung cancer. She had a recent PET/Ct and we reviewed the results today. She continues on pembrolizumab without any issues. She has had problems with her nephrostomy tubes getting blocked, they have increased the frequency of her tube exchanges and this seems to help. No fever or chills.. She deniesany shortness of breath chest pain or cough. She denies any rashes or bruising. Her appetite is good. She has no issues with her bowels. ROS is otherwise negative. Allergies: No Known Allergies Medications: Your Medications Accurate as of March 11, 2023 3:56 PM. If you have any questions, ask [...] Normocephalic Eyes: nonicteric Neck: No adenopathy Lungs: clear Heart: Regular rate and rhythm Abdomen: Soft, non-tender, bowel sounds active all four quadrants, no masses, no organomegaly. Extremities: No swelling Lymph nodes: Cervical, supraclavicular, and axillary nodes normal Vitals BP 153/73 (Patient Position: Sitting) Pulse 88 Temp 36.2 ??C (97.1 ??F) (Temporal) Resp 16 Ht 163.8 cm (5' 4.49) Wt 71.8 kg (158 lb 6.4 oz) SpO2 97% BMI 26.78 kg/m?? 04/04/21 ADDENDUM DISCUSSION PD-L1 Immunohistochemistry Study [...] The assay was performed according to the film flat inspector's instructions using Anti-PD-L1 (22C3, pharmDX) antibody. Electronically signed by: Herbert Ford MD Verified: 04/11/2021 8:14 Pathologist Performed at: [place] [place], [place], [place] Surgical Pathology DIAGNOSIS A - Lung, left lower lobe mass, debulking: - Adenocarcinoma, consistent with lung primary. Electronically signed by: Sana Dowell MD Verified: 04/06/2021 11:16 Pathologist Performed at: [place] [place], [place], [place] DISCUSSION Sections show an invasive, predominantly [...] propria. - No muscularis propria identified. Labs: 03/11/23 WBC 10.88, Hgb 11.1/Hct 36.4, PLT [...] WBC 11.0, hemoglobin 11.2, platelet count 531. 3- WBC-11.44 Hgb/Hct-11.4/37.0 MCV-82 Plt-593 ANC-7.15 Na-141 K+-3.8 [...] of presumably metastatic urothelial carcinoma which include [place] based chemotherapy versus immunotherapy. Due to her [...] continue pembrolizumab for total of 2 years. Jaleelliliyalaura plan to restage her with PET scan [...] next visit to review results in detail. # Low back pain left side pain- Has Rx for Tramadol 50 mg(1/2) every 12 hours with tylenol in between if needed. She follows with Palliative Care. #Abnormal thyroid function: levothyroxine is 75 mcg daily. Will monitor thyroid function. #Renal insufficiency: Cr 1.6 today, stable, She has bilateral nephrostomy tubes and follows up with nephrology. Continues with tube exchange [id number]. # Anemia- mild- asymptomatic. Continue to monitor Plan: 1 Proceed with C32 Pembrolizumab today as scheduled. Reviewed PET scan results with Dr. Lange and he agrees with this plan. 2. Continue levothyroxine 75 mcg a day 3. Next visit with MD to review results of PET from 03/07/23 in detail. CBC, CMP, TSH, free T4 and pembrolizumab infusion to in 3 weeks. 4. Continue to follow up with nephrology for nephrostomy tubes and periodic exchanges. 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
--- OUTSIDE RECORDS SUMMARY | 2023-11-21 15:56 | XMS_ITS | Encounter Summary ---
Author Organization [facility] [place] [address] Care Team Providers Care Cover Cutter Machine Name Role Phone Tavia Ramirez ALESSANDRO Primary Care Provider [phone] Encounter Details Date Type Department Care Team (Late st Contact Info) Description 02/28/2023 Notes [place] [phone] Ranjit Hale MD [facility] [place] [address] Social History Tobacco Use Types Packs/Day Years [...] PM EDT Office Visit Hematology/Oncology at [address] [phone] Chase Mckay MD [facility] [place] [address] documented as of this encounter Visit Diagnoses Not on filedocumented in this encounter Care Teams Cover Cutter Machine Relationship Specialty Start Date End Date Tavia Ramirez [place] [address] [place] [address] PCP - General Family Medicine 06/11/22 documented as of this encounter
--- OUTSIDE RECORDS SUMMARY | 2023-11-21 15:56 | XMS_ITS | Encounter Summary ---
Author Organization [place] [address] Care Team Providers Care Director Metabolism Name Role Phone James Tavia Foster APRN Primary Care Provider [phone] Reason for Visit * Diagnostic Test (Routine) - Closed Specialty Diagnoses / Procedures Referred By Contac t Referred To Contact Radiology Diagnoses Metastatic urothelial carcinoma 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 Procedures NM PET CT Skull Base to Mid-thigh Jose Lange MD [facility] DR HEMATOLOGY [place] [address] [place] [address] Referral ID Status Reason Start Date Expiration Date V isits Requested Visits Authorized [id number] Closed Specialty Service Requested 01/28/2023 07/29/2024 1 2 Encounter Details Date Type Department Care Team (Latest Contact Info) Description 03/07/2023 1:40 PM EST - 03/07/2023 11:59 PM [facility] Encounter [place] [address] [facility] [address] HEMATOLOGY [place] [address] Discharge Disposition: Home Social History [...] PM EDT Office Visit Hematology/Oncology at [address] [phone] [facility] [address] HEMATOLOGY [place] [address] documented as of this encounter Procedures Procedure Name Priority Date/Time Associated Diagnosis Comments NM PET CT SKULL BASE TO MID-THIGH ([facility]) Routine 03/07/2023 3:23 PM EST Metastatic urothelial carcinoma 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 POCT GLUCOSE Routine 03/07/2023 1:56 PM EST documented in this encounter Results * POCT Glucose (03/07/2023 1:56 PM EST) POC Glucose 85 65 - 199 mg/dL [facility] Comment: Supplemental ranges: <140 mg/dL before meals <180 mg/dL all other times of the day Blood 03/07/2023 1:56 PM EST 03/07/2023 1:56 PM EST Jose Lange MD POINT OF CARE TEST O RDERABLES [facility] [place] [address] documented in this encounter Visit Diagnoses Not on filedocumented in this encounter Care Teams Director Metabolism Relationship Specialty Start Date End Date Tavia Ramirez APRN [address] [facility] [place] [address] PCP - General Family Medicine 06/11/22 documented as of this encounter
--- OUTSIDE RECORDS SUMMARY | 2023-11-21 15:56 | XMS_ITS | Encounter Summary ---
Author Organization [facility] Address [facility] [place] [address] Care Team Providers Care Underwear Hemmer Name Role Phone James Tavia Foster APRN Primary Care Provider [phone] Encounter Details Date Type Department Care Team (Latest Contact Info) Description 04/25/2023 Travel Social History Tobacco Use Types Packs/Day [...] 3:30 PM EDT Office Visit Hematology/Oncology at [address] [phone] Chase Mckay MD [facility] DR [place]ATOLOG[place] [address] documented as of this encounter Visit Diagnoses Not on filedocumented in this encounter Care Teams Underwear Hemmer Relationship Specialty Start Date End Date Tavia Ramirez [place] [address] [place] [address] PCP - General Family Medicine 06/11/22 documented as of this encounter
--- OUTSIDE RECORDS SUMMARY | 2023-11-21 15:56 | XMS_ITS | Encounter Summary ---
Author Organization [facility] Address [facility] [place] [address] Care Team Providers Care Multi Sensor Operator Name Role Phone James Tavia Foster APRN Primary Care Provider [phone] Encounter Details Date Type Department Care Team (Late st Contact Info) Description 02/18/2023 1:00 PM EDT Office Visit Hematology/Oncology at [address] [phone] Jose Lange MD [facility] [address] [place] [address] Tea Dimas APRN [facility] [place] [address] Metastatic urothelial carcinoma; Hypothyroidism due to drugs Social History Tobacco [...] Sign Reading Time Taken Comments Blood Pressure 122/75 02/18/2023 12:57 PM EDT Pulse 83 02/18/2023 12:57 PM EDT Temperature 36.3 ??C (97.3 ??F) 02/18/2023 1 2:57 PM EDT Respiratory Rate 16 02/18/2023 12:5 7 PM EDT Oxygen Saturation 96% 02/18/2023 12: 57 PM EDT Inhaled Oxygen Concentration - - Weight 70.2 kg (154 lb 12.8 oz) 023 12:57 PM EDT Height 163.8 cm (5' 4.49) 02/18/2023 1 2:57 PM EDT Body Mass Index 26.17 02/18/2023 12:57 PM EDT documented in this encounter Progress Notes * Katherine Sepulveda APRN - 02/18/2023 1:00 PM EDT Images from the original note were not included. Hematology & Medical Oncology [address] [phone] Barb returns today to continue treatment for [...] cancer vs a distinct lung primary. She wasseen by contractor field hauling , who recommended rigid bronchoscopy with attempts to open the LLL broncus as well as stage the mediastinum with EBUS. The procedure has been scheduled yet. She underwent 04/04 bronchoscopy and tumor [...] for followup of her metastatic bladder cancer/primarylung cancer . She continues on pembrolizumab without any issues. She had pain last week and one of her nephrostomy tubes was blocked, she had her tubes switched out and her pain resolved completely. No fever or chills.. She denies any shortness of breath chest pain or cough. She denies any rashes or bruising. Her appetite is good. She has no issues with her bowels. ROS is otherwise negative. Allergies: No Known Allergies Medications: Your Medications Accurate as of February 18, 2023 2:26 PM. If you have any questions, ask [...] no masses, no organomegaly. Extremities: No swelling Pulses: Lymph nodes: Cervical, supraclavicular, and axillary nodes normal Vitals BP 122/75 (Patient Position: Sitting) Pulse 83 Temp 36.3 ??C (97.3 ??F) (Temporal) Resp 16 Ht 163.8 cm (5' 4.49) Wt 70.2 kg (154 lb 12.8 oz) SpO2 96% BMI 26.17 kg/m?? 04/04/21 ADDENDUM DISCUSSION PD-L1 Immunohistochemistry Study [...] The assay was performed according to the hand turner's instructions using Anti-PD-L1 (22C3, pharmDX) antibody. Electronically signed by: Herbert Ford MD Verified: 04/11/2021 8:14 Pathologist Performed at: -[facility] Dept. of Pathology, [place], [place] Surgical Pathology DIAGNOSIS A - Lung, left lower lobe mass, debulking: - Adenocarcinoma, consistent with lung primary. Electronically signed by: Sana Dowell MD Verified: 04/06/2021 11:16 Pathologist Performed at: -[facility] Dept. of Pathology, [place], [place] DISCUSSION Sections show an invasive, predominantly [...] propria. - No muscularis propria identified. Labs: 02/18/23 WBC 11.84, hemoglobin 10.8, platelet count [...] WBC 11.69, hemoglobin 11.7, platelet count 583, 9 WBC 11.93 H/H 12.4/39.5 Plts 567 Na [...] of presumably metastatic urothelial carcinoma which include [place] based chemotherapy versus immunotherapy. Due to her [...] continue pembrolizumab for total of 2 years. Kamilaura plan to restage her with PET scan [...] restaging PET/CT prior to her next visit. # Low back pain left side pain- Has Rx for Tramadol 50 mg(1/2) every 12 hours with tylenol in between if needed. She follows with Palliative Care. #Abnormal thyroid function: levothyroxine is 75 mcg daily.. Will monitor thyroid function. #Renal insufficiency: Cr 1.5 today, stable, She has bilateral nephrostomy tubes and follows up with nephrology. Continues with tube exchange [id number]. # Anemia- mild- asymptomatic. Continue to monitor #Tongue lesion on previous PET scan: Was seen by ENT Dr. Steel in October of 2022 , no lesions on the base of tongue Plan: 1 Proceed with C31 Pembrolizumab today as scheduled. 2. Continue levothyroxine 75 mcg a day 3. Restaging PET scan 4. Next visit with CBC, CMP, TSH, free T4 and pembrolizumab infusion to in 3 weeks. 5. 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
--- OUTSIDE RECORDS SUMMARY | 2023-11-21 15:56 | XMS_ITS | Encounter Summary ---
[place] [address] Care Team Providers Care Assistant Child Care Teacher Name Role Phone Tavia Ramirez APRN Primary Care Provider [phone] Reason for Referral * Diagnostic Test (Routine) - Closed Specialty Diagnoses / Procedures Referred By Contac t Referred To Contact Radiology Diagnoses Obstructive uropathy Procedures IR Nephrogram/Nephrostomy Tube Exchange Bilateral Alin Dillard MD [facility] [place] [address] [place] [address] Referral ID Status Reason Start Date Expiration Date V isits Requested Visits Authorized [id number] Closed Specialty Service Requested 04/25/2023 10/24/2024 1 1 * Diagnostic Test (Routine) - Closed Specialty Diagnoses / Procedures Referred By Contac t Referred To Contact Radiology Diagnoses Bilateral hydronephrosis Procedures IR Nephrogram/Nephrostomy Tube Exchange Bilateral Alin Dillard MD [facility] [place] [address] [place] [address] Referral ID Status Reason Start Date Expiration Date V isits Requested Visits Authorized [id number] Closed Specialty Service Requested 04/04/2023 10/03/2024 1 1 Reason for Visit * Diagnostic Test (Routine) - Closed Specialty Diagnoses / Procedures Referred By Etta t Referred To Contact Radiology Diagnoses Bilateral hydronephrosis Procedures IR Nephrogram/Nephrostomy Tube Exchange Bilateral Alin Dillard MD [facility] [place] [address] [facility] [place] [address] Referral ID Status Reason Start Date Expiration Date V isits Requested Visits Authorized [id number] Closed Specialty Service Requested 04/04/2023 10/03/2024 1 1 Encounter Details Date Type Department Care Team (Latest Contact Info) Description 04/25/2023 7:59 AM EST - 04/25/2023 11:59 PM EST Hospital En[place] [address] Alin Dillard MD [facility] [place] [address] Bilateral hydronephrosis; Obstructive uropathy Discharge [...] Sign Reading Time Taken Comments Blood Pressure 136/89 04/25/2023 9:30 AM EST Pulse 77 04/25/2023 8:36 AM EST Temperature 36.2 ??C (97.2 ??F) 04/25/2023 9:30 AM ES T Respiratory Rate 20 04/25/2023 9:30 AM EST Oxygen Saturation 100% 04/25/2023 9:30 AM EST Inhaled Oxygen Concentration - - Weight - - Height - - Body Mass Index - - documented in this encounter Discharge Instructions * Discharge Instructions* Flaco Cabrera RN - 04/25/2023 8:18 AM EST Images from the original note were not included. [facility] Vascular and Interventional Radiology Discharge [...] tubing from the drain. Put a registered nurse maternal child on both the drain and the bag. [...] is during regular office hours, please call [phone]. If it is after regular office hours, or on weekends or holidays, please call [phone] and ask to speak to the [employer] airport operations officer for Interventional Radiology. You have received medication [...] as of this encounter Progress Notes * Flaco Cabrera RN - 04/25/2023 6:38 AM EST ANGIO NURSING DATABASE Name: Barb Bullard Date of : 1950 AGE: 72 y.o. Address: [address] [place] [phone] (home) Mobile: Telephone Information: Referring Provider: Alin Dillard REASON FOR VISIT: Order Questions Answers Where will study be performed? [facility] Radiology [120] Reason for exam and clinical history: chronic Neph tubes , 6-7 week change due to rapid encrustation last fall. Is the patient on anticoagulant / antiplatelet therapy ? No Planned procedure: Bilateral Nephrostomy Catheter Exchange Labs [...] exchange Cipro 500 mg PO, Lido jelly 0850 to procedure room 4 via stretcher. Onto table prone. BP cuff, pulse ox, safety strap in place.Meds per protocol. Arterial Puncture Post Procedure Time of Arterial Puncture: Site: Closure device used: Time sheath removed: Time of hemostasis: Hematoma present?: Anticipated up time: Fistulagrams Post Procedure Site: Time sheath removed: Tip stop time: Tip stop removal: Radial Access: TR Band applied at: # ml's in TR band: Laboratory Results: Lab Results Component Value Date CREATININE 1.54 (H) 07/13/2021 Lab Results Component Value Date K 4.5 04/16/2021 Lab Results Component Value Date PLATELET 873 (H) 04/16/2021 documented in this encounter H&P Notes * Alin Dillard MD - 04/25/2023 8:14 AM EST INTERVENTIONAL RADIOLOGY FOCUSED H&P: Procedure: The patient's history has been reviewed and physical exam completed and there has been interval change requiring a change in the procedural plan. Those changes are replacement of dislodged right tube, exchange of Left Physical Exam: Cardiovascular: Regular, Normal Pulmonary: Breath sounds clear to auscultation The planned procedure (and sedation plan if appropriate) , its benefits and risks, and alternativeswere discussed with the patient. The patient consented to the procedure. PRE-SEDATION ASSESSMENT: Sedation Plan: minimal (single agent only) ASA: 1: Normally healthy patient Mallampati: I: soft palate, fauces, tonsillar pillars and uvula can be seen Confirm NPO status: Yes History of anesthetic complications: No Current medications reviewed: Yes Allergies reviewed: Yes Source Note - Jean Carlos Fenton DO - 04/23/2023 8:50 AM EST Images from the original note were not included. INTERVENTIONAL RADIOLOGY FOCUSED H&P and PRE-PROCEDURE NOTE: PCP: Tavia Ramirez APRN Referring Provider: Cong Dillard Planned Procedure: Planned procedure: Bilateral Nephrostomy Catheter Exchange Procedure Indication: Metastatic Urothelial Cancer. Bilateral ureteral [...] and primary lung cancer. Last exchanged on 04/04/23. Rapid encrustation requiring exchanges every 6-7 weeks. [...] Mediport Placement 04/02/[address] [facility] INTERVENTIONL RAD IR NEPHROSTOMY TUBE EXCHANGE BILATERAL 04/24/2022 IR Nephrogram/Nephrostomy Tube Exchange Bilateral 04/24/[address] [facility] INTERVENTIONL RAD IR NEPHROSTOMY TUBE EXCHANGE BILATERAL 07/26/2022 IR Nephrogram/Nephrostomy Tube Exchange Bilateral 07/26/[address] [facility] INTERVENTIONL RAD IR NEPHROSTOMY TUBE EXCHANGE BILATERAL 10/18/2022 IR Nephrogram/Nephrostomy Tube Exchange Bilateral 10/18/2022 Alexis De La Cruz MD [facility] INTERVENTIONL RAD IR NEPHROSTOMY TUBE EXCHANGE BILATERAL 12/11/2022 IR Nephrogram/Nephrostomy Tube Exchange Bilateral 12/11/2022 Alexis De La Cruz MD [facility] INTERVENTIONL RAD IR NEPHROSTOMY TUBE EXCHANGE BILATERAL 02/13/2023 IR Nephrogram/Nephrostomy Tube Exchange Bilateral 02/13/[address] [facility] INTERVENTIONL RAD IR NEPHROSTOMY TUBE EXCHANGE BILATERAL 04/04/2023 IR Nephrogram/Nephrostomy Tube Exchange Bilateral Alin Dillard MD [facility] INTERVENTIONL RAD IR NEPHROSTOMY TUBE PLACEMENT PERCUTANEOUS BILATERAL 02/20/2021 IR Nephrostomy Tube Placement Percutaneous Bilateral [facility] INTERVENTIONL RAD IR NEPHROURETERAL (NU) STENT PLACEMENT/CHECK/CHANGE 07/13/2021 IR Nephroureteral (NU) Stent Placement Check/Change 07/13/2021 Alexis De La Cruz MD [facility] INTERVENTIONLRAD IR NEPHROURETERAL (NU) STENT PLACEMENT/CHECK/CHANGE 10/23/2021 IR Nephroureteral (NU) Stent Placement Check/Change 10/23/[address] [facility] INTERVENTIONL RAD IR NEPHROURETERAL (NU) STENT PLACEMENT/CHECK/CHANGE 01/18/2022 IR Nephroureteral (NU) Stent Placement Check/Change 01/18/[address] [facility] INTERVENTIONLRAD PRO BRNCC EBUS GUIDED SAMPL 3/> NODE STATION/STRUX N/A 04/04/2021 BRONCH, W ENDOBRONCHIAL ULTRASOUND (EBUS) GUIDED SAMPLING, 3+ NODES (WRVU 5.21) performed by Alonzo Cevallos MD at [facility] MAIN OR PRO BRONCHOSCOPY, DIAGNOSTIC W LAVAGE N/A 04/04/2021 BRONCHOSCOPY, RIGID OR FLEXIBLE, WITH BRONCHIAL ALVEOLAR LAVAGE (WRVU 2.88) performed by Alonzo Cevallos MD at [facility] MAIN OR Medications: Current Outpatient Medications on [...] for Nausea. (Patient not taking: Reported on 04/22/2023) 15 tablet 0 Current Facility-Administered Medications on File Prior to Visit Medication Dose Route Frequency Provider Last Rate Last Admin [COMPLETED] pembrolizumab (Keytruda) 200 mg in sodium chloride 0.9% 108 mL infusion 200 mg Intravenous Once Jose Lange MD Stopped at 04/22/23 1312 [DISCONTINUED] sodium chloride 0.9% infusion 100 mL/hr Intravenous Continuous Jose Lange MD100 mL/hr at 04/22/23 1238 100 mL/hr at 04/22/23 1238 [DISCONTINUED] heparin (pf) (porcine) (100 units/mL) flush 5 mL syringe 500 Units 500 Units Intravenous Once PRN Jose Lange MD 500 Units at 04/22/23 1313 [DISCONTINUED] sodium chloride 0.9 % (flush) (BD PosiFlush Normal Saline 0.9) flush 5-20 mL 5-20 mLIntravenous Q1 Min Jose Rahman MD 20 mL at 04/22/23 1313 Allergies: Patient has no known allergies. Social [...] and primary lung cancer. Last exchanged on 04/04/23. Rapid encrustation requiring exchanges every 6-7 weeks. [...] Urgency:: G3- Elective Outpatient intervention over14 days 04/23/2023 documented in this encounter Plan of Treatment Upcoming Encounters Date Type Department Care Team (Late st Contact Info) Description 12/08/2023 3:30 PM EDT Office Visit Hematology/Oncology at [address] [phone] Chase Mckay MD [facility] [place] [address] documented as of this encounter Procedures Procedure Name Priority Date/Time Associated Diagnosis Comments IR NEPHROGRAM/NEPHROS RAMONA TUBE EXCHANGE BILATERAL Routine 04/25/2023 9:28 AM EST Bilateral hydronephrosis documented in this encounter Results [...] renal pelves, exchanged. ? Alin Dillard MD [facility] IR ORDERABLES * IR Nephrogram/Nephrostomy Tube Exchange Bilateral (04/25/2023 [...] Blood Loss: None Fluoroscopy time: Please see [facility] IR technologist record for procedural dose/time [...] renal collecting system. ?? A new 10 Salvadorean nephrostomy tube was advanced over this wire, [...] hydronephrosis Hydronephrosis Obstructive uropathy Urinary obstruction, unspecified Obstructive uropathy Urinary obstruction, unspecified documented in this encounter Administered Medications Inactive Administered Medications - up to 3 most recent administrations Medication Order MAR Action Action Date Dose Rate Site ciprofloxacin (Cipro) tablet 500 mg 500 mg, Oral, ONCE, 1 dose, On Fri04/25/23 at 0830, Angio/IR (Day of Procedure), Routine, Indication for (Active or Suspected): Prophylaxis Given 04/25/2023 8:45 AM EST 500 mg iohexoL (Omnipaque) (350 mg/mL) solution 1-400 mL 1-400 mL, Other, ONCE, 1 dose, On Fri04/25/23 at 0830, For intra-procedural use by proceduralist., Angio/IR (Intra-Procedure), Routine Given 04/25/2023 8:30 AM EST 20 mLs lidocaine (Glydo) 2 % gel 6 mL 6 mL, Topical (Top), EVERY 4 HOURS PRN, Starting on Fri04/25/23 at 0807, Until Fri04/25/23 at 0948, Pain, For use in Interventional Radiology (IR) only for procedure with direct provider supervision and verbal order., Angio/IR (Intra-Procedure), Routine Given 04/25/2023 8:40 AM EST 6 mLs documented in this encounter Care Teams Assistant Child Care Teacher Relationship Specialty Start Date End Date Tavia Ramirez, RADIOGRAPHER ANGIOGRAM [facility] [place] [address] [place] [address] PCP - General Family Medicine 06/11/22 documented as of this encounter
--- OUTSIDE RECORDS SUMMARY | 2023-11-21 15:56 | XMS_ITS | Encounter Summary ---
Author Organization [facility] [place] [address] Care Team Providers Care Cable Tester Name Role Phone Tavia Ramirez APRN Primary Care Provider [phone] Reason for Visit * Reason Comments Chemotherapy * Treatment/Therapy Plan Authorization (Routine) - Closed Specialty Diagnoses / Procedures Referred By Contac t Referred To Contact Hematology and Oncology Diagnoses Metastatic urothelial carcinoma Abnormal thyroid function test Procedures [id number] Jose Barnhart MD [address] [place] [address] [place] [address] Jose Lange MD [address] [place] [address] [place] [address] Referral ID Status Reason Start Date Expiration Date Visits Re quested Visits Authorized [id number] Closed 04/28/2022 06/24/2023 99 99 Encounter Details Date Type Department Care Team (Late st Contact Info) Description 03/11/2023 2:30 PM EST Infusion Hematology Oncology at [address] [phone] Metastatic urothelial carcinoma Social History Tobacco Use [...] Progress Notes * Chalino Bourne, RN - 03/11/2023 2:30 PM EST INFUSION THERAPY ADMINISTRATION NOTES DIAGNOSIS: Metastatic urothelial cancer and primary lung cancer CYCLE #: 32, Day 1 - Pembrolizumab REASON FOR VISIT: To receive planned chemotherapy. SUBJECTIVE: Barb offers no complaints. OBJECTIVE: Seen by provider. Ready to treat. LAB DATA: Done today at [facility] and adequate for treatment. IV ACCESS: [...] PM EDT Office Visit Hematology/Oncology at [address] [phone] Chase Mckay MD [facility] DR HEMATOLOGY [place] [address] documented as of this encounter Visit Diagnoses Diagnosis Metastatic urothelial carcinoma Secondary malignant neoplasm of other urinary organs documented in this encounter Administered Medications Inactive Administered Medications - up to 3 most recent administrations Medication Order MAR Action Action Date Dose Rate Site heparin (pf) (porcine) (100 units/mL) flush 5 mL syringe 500 Units 500 Units, Intravenous, ONCE PRN, Starting on e 03/11/23 at 1509, Until Fri03/11/23 at 1815, Line Care, Refer to Intravenous (IV) Procedure: Accessing Implanted Vascular Access Devices (834) procedure and/or Intravenous (IV) Job Aid: Adult Flushing & Catheter Care (2000) job aid for additional information regarding guidelines and administration., Routine Given 03/11/2023 4:02 PM EST 500 Units pembrolizumab (Keytruda) 200 mg in sodium chloride 0.9% 108 mL infusion 200 mg, Intravenous, ONCE, 1 dose, On 03/11/23 at 1630, Administer over 30 Minutes, Flush line with NS after each dose., This agent is restricted to outpatient use. Is this drug being given as an outpatient? Yes New Bag 03/11/2023 3:30 PM EST 200 mg 216 mL/hr documented in this encounter Care Teams Cable Tester Relationship Specialty Start Date End Date Tavia Ramirez [place] [address] [place] [address] PCP - General Family Medicine 06/11/22 documented as of this encounter
--- OUTSIDE RECORDS SUMMARY | 2023-11-21 15:56 | XMS_ITS | Encounter Summary ---
Author Organization [facility] Address [facility] [place] [address] Care Team Providers Care Gastroenterology Professor Name Role Phone James Tavia Foster APRN Primary Care Provider [phone] Encounter Details Date Type Department Care Team (Late st Contact Info) Description 01/07/2023 9:00 AM EDT Office Visit Hematology/Oncology at [address] [phone] Jose Lange MD [facility] [place] [address] Tea Dimas APRN [facility] [place] [address] Primary malignant neoplasm of left lower lobe [...] Sign Reading Time Taken Comments Blood Pressure 129/65 01/07/2023 8:51 AM EDT Pulse 95 01/07/2023 8:51 AM EDT Temperature 36.5 ??C (97.7 ??F) 01/07/2023 8:51 AM ED T Respiratory Rate 16 01/07/2023 8:51 AM EDT Oxygen Saturation 92% 01/07/2023 8:51 AM EDT Inhaled Oxygen Concentration - - Weight 71.5 kg (157 lb 9.6 oz) 01/07/2023 8:51 A M EDT Height 163.8 cm (5' 4.49) 01/07/2023 8:51 AM ED T Body Mass Index 26.64 01/07/2023 8:51 AM EDT documented in this encounter Patient Instructions * Patient Instructions* Tea Dimas APRN - 01/07/2023 9:00 AM EDT She will return in 3 weeks with labs prior and will need a PET scan prior to next visit documented in this encounter Progress Notes * Tea Dimas APRN - 01/07/2023 9:00 AM EDT Images from the original note were not included. Hematology & Medical Oncology [address] [phone] Barb returns today to continue treatment for [...] distinct lung primary. She was seen by social sciences chair , who recommended rigid bronchoscopy withattempts to [...] She wasdischarged home on 05/01/21 Interval history 01/07/23 Barb returns today for followup of her metastatic bladder cancer and primary lung cancer. She continues on pembrolizumab without any issues. Her nephrostomy tubes are working well. She denies any shortness of breath chest pain or cough. She denies any rashes or bruising. Her appetite is good. She has no issues with her bowels or bladder. ROS is otherwise negative. Interval history 11/26/22 Barb returns today for followup of her bladder/lung cancer. She is on pembrolizumab. She continues to do well with her treatment. Nephrostomy tubes are working well. She is due to have them changed on Dec 14. She is having them changed every 10 weeks now. That is working well for her. She denies any shortness of breath chest pain or cough. She denies any rashes or itching. She is not having any diarrhea or constipation. She is due to see ENT in the near future about her throat. ROS is otherwise negative INTERVAL HISTORY(11/05/22)- Barb returns today for followup of her bladder/lung cancer, discussion on restaging PET scan and C26 of pembrolizumab. . Overall feeling well today. Both nephrostomy tubes are draining well. Bowel movements are regular. No nausea or vomiting. No shortness of breath, chest pain or edema. Denies any changes in her breathing. No hemoptysis. No cough. Denies any recent fevers or chills. No headaches, dizziness or lightheadedness. Appetite is good . She has not heard from the ENT doctor. She does feel like something is in her throat but denies any difficulty swallowing. . Remainder of ROS otherwise negative. PMH: No interval changes since last visit COVID- 06/12/22 UTI- 06/12/22 UTI 02/12/2022 Bilateral over the wire conversion of nephro-ureteral stent to 10 Fr nephrostomy catheters 01/18/2022 UTI 09/14/2021 04/26/21-05/01/21 admission to [facility] with pneumonia, Pulmonary hypertension/CHF, BRITNI 04/16/2021 nephrostomy catheter exchange 04/04/21 bronchoscopy and tumor debulking- endobronchial biopsies positive for adenocarcinoma of lung origin Social History: No interval changes since last visit [id number] smoking history quit 6 years ago, does not drink alcohol, used to live independently, but currently moved to her daughters house. Family History: No interval changes since last visit Brother had liver cancer, mother had leukemia, maternal aunt had colon cancer in cousin had bladdercancer Allergies: No Known Allergies Medications: Your Medications Accurate as of January 07, 2023 9:43 AM. If you have any questions, ask your nurse or doctor. Continued medications with new dosing Dose Details traMADoL 50 mg tablet Commonly known as: Ultram Take 1 tablet by mouth every 6 hours as needed for Pain. What changed: when to take this additional instructions 50 mg Quantity: 30 tablet Refills: 0 Continued medications, unchanged Dose [...] Senokot Take by mouth daily. Refills: 0 Review of Systems: Constitutional: Negative [...] axillary nodes normal Neurologic: Normal Vitals BP 129/65 (Patient Position: Sitting) Pulse 95 Temp 36.5 ??C (97.7 ??F) (Temporal) Resp 16 Ht 163.8 cm (5' 4.49) Wt 71.5 kg (157 lb 9.6 oz) SpO2 92% BMI 26.64 kg/m?? Pathology: Molecular pathology KRAS p.G12C c.34G>T [...] The assay was performed according to the vacuum filter operator's instructions using Anti-PD-L1 (22C3, pharmDX) antibody. Electronically signed by: Herbert Ford MD Verified: 04/11/2021 8:14 Pathologist Performed at: -[facility] Dept. of Pathology, [place], [place] Surgical Pathology DIAGNOSIS A - Lung, left lower lobe mass, debulking: - Adenocarcinoma, consistent with lung primary. Electronically signed by: Sana Dowell MD Verified: 04/06/2021 11:16 Pathologist Performed at: -[facility] Dept. of Pathology, [place], [place] DISCUSSION Sections show an invasive, predominantly [...] propria. - No muscularis propria identified. Labs: 01/07/23 WBC 12.33 H/H 10.9/34.3 Plts 610 [...] WBC 11.0, hemoglobin 11.2, platelet count 531. 3/- WBC-11.44 Hgb/Hct-11.4/37.0 MCV-82 Plt-593 ANC-7.15 Na-141 K+-3.8 [...] of presumably metastatic urothelial carcinoma which include [place] based chemotherapy versus immunotherapy. Due to her [...] stage lung cancer. To begin, we'll have Everette Juan Miguel follow-up with Dr. Lange for treatment of [...] visit. She is comfortable with this plan. # Low back pain left side pain- She is taking Tramadol 50 mg(1/2) every 12 hours with tylenol in between if needed. She follows with Palliative Care. #Abnormal thyroid function: levothyroxine is 75 mcg daily.. Will monitor thyroid function. #Renal insufficiency: Cr 1.7 today, stable, Creatinine 3.0 on admission. She has bilateral nephrostomy tubes. tube exchange was on Friday-07/26/22. # Anemia- mild- asymptomatic. Plan: 1 Proceed with C29 Pembrolizumab today as scheduled. 2. Continue levothyroxine 75 mcg a day 4. Next visit with CBC, CMP, TSH, free T4 and PET scan prior to next visit in 3 weeks she will alsoneed pembrolizumab Barb voiced understanding of the plan and [...] PM EDT Office Visit Hematology/Oncology at [address] [phone] Chase Mckay MD [facility] [place] [address] documented as of this encounter Visit Diagnoses Diagnosis 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 Malignant neoplasm of lower lobe, bronchus, or lung Metastatic urothelial carcinoma Secondary malignant neoplasm of other urinary organs documented in this encounter Care Teams Gastroenterology Professor Relationship Specialty Start Date End Date Tavia Ramirez, RECAPPER [address] [place] [address] PCP - General Family Medicine 06/11/22 documented as of this encounter
--- OUTSIDE RECORDS SUMMARY | 2023-11-21 15:56 | XMS_ITS | Encounter Summary ---
Author Organization [facility] Address [facility] [place] [address] Care Team Providers Care Senior Program Analyst Name Role Phone Tavia Ramirez APRN Primary Care Provider Encounter Details Date Type Department Care Team (Late st Contact Info) Description 03/31/2023 Telephone Hematology/Oncology at [address] [phone] Bhumi Maradiaga Social History Tobacco [...] * Telephone Encounter - Bhumi Maradiaga - 03/31/2023 9:40 AM EST Called to ask Barb if she could come at 9:30am, Then infusion She is aware of the the change and will be here. Getting labs before appt documented in this encounter Plan of Treatment Upcoming Encounters Date Type Department Care Team (Late st Contact Info) Description 12/08/2023 3:30 PM EDT Office Visit Hematology/Oncology at [address] [phone] Chase Mckay MD [facility] DR HEMATOLOGY [place] [address] documented as of this encounter Visit Diagnoses Not on filedocumented in this encounter Care Teams Senior Program Analyst Relationship Specialty Start Date End Date Tavia Ramirez, FLOW [place] [address] [place] [address] PCP - General Family Medicine 06/11/22 documented as of this encounter
--- OUTSIDE RECORDS SUMMARY | 2023-11-21 15:56 | XMS_ITS | Encounter Summary ---
Author Organization [facility] Address [facility] [place] [address] Care Team Providers Care Underwear Finisher Name Role Phone James Tavia Foster APRN Primary Care Provider [phone] Encounter Details Date Type Department Care Team (Latest Contact Info) Description 04/21/2023 Travel Social History Tobacco Use Types Packs/Day [...] slept in a prison (including now)? No 03/27/2021 Sex and Gender Information Value Date Recorded Sex Assigned at Not on file Gender Identity Not on file Sexual Orientation Not on file documented as of this encounter Plan of Treatment Upcoming Encounters Date Type Department Care Team (Late st Contact Info) Description 12/08/2023 3:30 PM EDT Office Visit Hematology/Oncology at [address] [phone] Chase Mckay MD [facility] [address] [place] [address] documented as of this encounter Visit Diagnoses Not on filedocumented in this encounter Care Teams Underwear Finisher Relationship Specialty Start Date End Date Tavia Ramirez [place] [address] [place] [address] PCP - General Family Medicine 06/11/22 documented as of this encounter
--- OUTSIDE RECORDS SUMMARY | 2023-11-21 15:56 | XMS_ITS | Encounter Summary ---
[facility] Organization [facility] [place] [address] Care Team Providers Care Sql Bi Developer Name Role Phone Tavia Ramirez ALESSANDRO Primary Care Provider [phone] Encounter Details Date Type Department Care Team (Late st Contact Info) Description 04/23/2023 Notes [place] [phone] Jean Carlos Fenton, [facility] [place] [address] Social History Tobacco Use Types Packs/Day Years [...] * Jean Carlos Fenton P, DO - 04/23/2023 8:50 AM EST Images [...] IR Mediport Placement 04/02/2021 Yuval Sinclair PA [facility] IR NEPHROSTOMY TUBE EXCHANGE BILATERAL 04/24/2022 IR Nephrogram/Nephrostomy Tube Exchange Bilateral 04/24/2022 Alin Dillard MD [facility] IR NEPHROSTOMY TUBE EXCHANGE BILATERAL 07/26/2022 IR Nephrogram/Nephrostomy Tube Exchange Bilateral 07/26/2022 Robe Hope PA [facility] IR NEPHROSTOMY TUBE EXCHANGE BILATERAL 10/18/2022 IR Nephrogram/Nephrostomy Tube Exchange Bilateral 10/18/2022 Alexis De La Cruz MD [facility] IR NEPHROSTOMY TUBE EXCHANGE BILATERAL 12/11/2022 IR Nephrogram/Nephrostomy Tube Exchange Bilateral 12/11/2022 Alexis De La Cruz MD [facility] IR NEPHROSTOMY TUBE EXCHANGE BILATERAL 02/13/2023 IR Nephrogram/Nephrostomy Tube Exchange Bilateral 02/13/2023 Alin Dillard MD [facility] IR NEPHROSTOMY TUBE EXCHANGE BILATERAL 04/04/2023 IR Nephrogram/Nephrostomy Tube Exchange Bilateral Alin Dillard MD [facility] IR NEPHROSTOMY TUBE PLACEMENT PERCUTANEOUS BILATERAL 02/20/2021 IR Nephrostomy Tube Placement Percutaneous Bilateral [facility] IR NEPHROURETERAL (NU) STENT PLACEMENT/CHECK/CHANGE 07/13/2021 IR Nephroureteral (NU) Stent Placement Check/Change 07/13/2021 Alexis De La Cruz MD [facility] IR NEPHROURETERAL (NU) STENT PLACEMENT/CHECK/CHANGE 10/23/2021 IR Nephroureteral (NU) Stent Placement Check/Change 10/23/2021 Zeferino Rosado MD [facility] IR NEPHROURETERAL (NU) STENT PLACEMENT/CHECK/CHANGE 01/18/2022 IR Nephroureteral (NU) Stent Placement Check/Change 01/18/2022 Guillermo Nice MD [facility] PRO [facility] EBUS GUIDED SAMPL 3/> NODE STATION/STRUX N/A 04/04/2021 BRONCH, W ENDOBRONCHIAL ULTRASOUND (EBUS) GUIDED SAMPLING, 3+ NODES (WRVU 5.21) performed by Backer, Alonzo D, MD at [facility] PRO BRONCHOSCOPY, DIAGNOSTIC W LAVAGE N/A 04/04/2021 BRONCHOSCOPY, RIGID OR FLEXIBLE, WITH BRONCHIAL ALVEOLAR LAVAGE (WRVU 2.88) performed by Alonzo Cevallos MD at [facility] Medications: Current Outpatient Medications [...] flush 5-20 mL 5-20 mLIntravenous Q1 Min PRN Jose Lange MD 20 mL at 04/22/23 1313 Allergies: [...] 3:30 PM EDT Office Visit Hematology/Oncology at [address] [phone] Chase Mckay MD [facility] [place] [address] documented as of this encounter Visit Diagnoses Not on filedocumented in this encounter Care Teams Sql Bi Developer Relationship Specialty Start Date End Date Tavia Ramirez APR[place] [address] PCP - General Family Medicine 06/11/22 documented as of this encounter
--- OUTSIDE RECORDS SUMMARY | 2023-11-21 15:57 | XMS_ITS | Encounter Summary ---
Author Organization [facility] [place] [address] Care Team Providers Care Senior Financial Analyst Name Role Phone Tavia Ramirez APRN Primary Care Provider [phone] Reason for Visit * Reason Comments Chemotherapy Cycle 25 Day 1 Pembr olizumab * Treatment/Therapy Plan Authorization (Routine) - Closed Specialty Diagnoses / Procedures Referred By Contac t Referred To Contact Hematology and Oncology Diagnoses Metastatic urothelial carcinoma Abnormal thyroid function test Procedures [id number] Jose Barnhart MD [address] [place] [address] [place] [address] Jose Lange MD [address] [place] [address] [place] [address] Referral ID Status Reason Start Date Expiration Date Visits Re quested Visits Authorized [id number] Closed 04/28/2022 06/24/2023 99 99 Encounter Details Date Type Department Care Team (Late st Contact Info) Description 10/08/2022 1:30 PM EDT Infusion Hematology Oncology at [address] [phone] Metastatic urothelial carcinoma Social History Tobacco Use [...] as of this encounter Progress Notes * Margarita Watson RN - 10/08/2022 1:30 PM EDT INFUSION THERAPY ADMINISTRATION NOTES DIAGNOSIS: Bladder Cancer CYCLE #:25 Day 1 REASON FOR VISIT: Pembrolizumab SUBJECTIVE Barb offers no complaints. She was seen in clinic prior to infusion. OBJECTIVE LAB DATA: WBC 13.06, HGB 11.3, HCT 36.2, PLT 614, ANC 8.59, BUN 19, Cr 1.6, TSH 1.93, FT4 1.0 IV ACCESS: Mediport Pre administration: Chemotherapy orders independently verified for drug name, route, and dosage per patient's height, weight and BSA by Margarita Watson, RN & [facility] onsite. REACTIONS (DESCRIPTION, TIME, INTERVENTION AND EFFECTIVENESS) none ASSESSMENT Barb was awake, alert and tolerated treatment well. PLAN Return to clinic per routine. documented in this encounter Plan of Treatment Upcoming Encounters Date Type Department Care Team (Late st Contact Info) Description 12/08/2023 3:30 PM EDT Office Visit Hematology/Oncology at [address] [phone] Chase Mckay MD [facility] DR HEMAT[place] [address] documented as of this encounter Visit Diagnoses Diagnosis Metastatic urothelial carcinoma Secondary malignant neoplasm of other urinary organs documented in this encounter Administered Medications Inactive Administered Medications - up to 3 most recent administrations Medication Order MAR Action Action Date Dose Rate Site heparin (pf) (porcine) (100 units/mL) flush 5 mL syringe 500 Units 500 Units, Intravenous, ONCE PRN, Starting on Fri10/08/22 at 1355, Until Fri10/08/22 at 1724, Line Care, Refer to Intravenous (IV) Procedure: Accessing Implanted Vascular Access Devices (424) procedure and/or Intravenous (IV) Job Aid: Adult Flushing & Catheter Care (9009) job aid for additional information regarding guidelines and administration., Routine Given 10/08/2022 3:02 PM EDT 500 Units pembrolizumab (Keytruda) 200 mg in sodium chloride 0.9% 108 mL infusion 200 mg, Intravenous, ONCE, 1 dose, On e 10/08/22 at 1515, Administer over 30 Minutes, Flush line with NS after each dose., This agent is restricted to outpatient use. Is this drug being given as an outpatient? Yes New Bag 10/08/2022 2:29 PM EDT 200 mg 216 mL/hr sodium chloride 0.9 % (flush) (BD PosiFlush Normal Saline 0.9) flush 5-20 mL 5-20 mL, Intravenous, EVERY 1 MIN PRN, Starting on Fri10/08/22 at 1355, Until Fri10/08/22 at 1724, Line Care, Flush pertains to all indwelling lines. Flush per protocol found in the job aid using the link provided on this medication record. Refer to Intravenous (IV) Job Aid: Adult Flushing & Catheter Care (0624) job aid for additional information regarding guidelines and administration., Routine Given 10/08/2022 3:02 PM EDT 20 mLs documented in this encounter Care Teams Senior Financial Analyst Relationship Specialty Start Date End Date Tavia Ramirez [place] [address] [place] [address] PCP - General Family Medicine 06/11/22 documented as of this encounter
--- OUTSIDE RECORDS SUMMARY | 2023-11-21 15:57 | XMS_ITS | Encounter Summary ---
[place] [address] Care Team Providers Care Plant Production Manager Name Role Phone James Tavia Foster APRN Primary Care Provider [phone] Reason for Referral * Diagnostic Test (Routine) - Closed Specialty Diagnoses / Procedures Referred By Contac t Referred To Contact Radiology Diagnoses Metastatic urothelial carcinoma Primary lung adenocarcinoma, left Procedures NM PET CT Skull Base to Mid-thigh Jose Lange MD [facility] [address] HEMATOLOGY [place] [address] [place] [address] Referral ID Status Reason Start Date Expiration Date V isits Requested Visits Authorized [id number] Closed Specialty Service Requested 08/13/2022 02/13/2024 1 1 Reason for Visit * Diagnostic Test (Routine) - Closed Specialty Diagnoses / Procedures Referred By Contac t Referred To Contact Radiology Diagnoses Metastatic urothelial carcinoma Primary lung adenocarcinoma, left Procedures NM PET CT Skull Base to Mid-thigh Jose Lange MD [facility] HEMATOLOGY [place] [address] [place] [address] Referral ID Status Reason Start Date Expiration Date V isits Requested Visits Authorized [id number] Closed Specialty Service Requested 08/13/2022 02/13/2024 1 1 Encounter Details Date Type Department Care Team (Latest Contact Info) Description 10/10/2022 2:19 PM EDT - 10/10/2022 11:59 PM EDT Hospital Encounter [place] [address] Jose Lange MD [facility] HEMATOLOGY [place] [address] Metastatic urothelial carcinoma; Primary lung adenocarcinoma, left Discharge Disposition: Home Social History Tobacco Use [...] Sig Dispensed Refills Start Date End Date acetaminophen (Tylenol) 500 mg Tablet Take 1,000 mg by mouth every 8 hours as needed for Pain. senna (Senokot) 8.6 mg Tablet Take 1 tablet by mouth daily as needed for Constipation. traMADoL (Ultram) 50 mg TabletIndications:Metast atic urothelial carcinoma Take 1 tablet by mouth every 6 hours as needed for Pain. 30 tablet 04/23/2022 08/10/2023 levothyroxine (Synthroid) 75 mcg TabletIndications:Metast atic urothelial carcinoma Take 1 tablet by mouth daily. 30 tablet 11 02/19/2022 02/12/2023 prochlorperazine (Compazine) 10 mg Tablet Take 1 tablet by mouth every 6 hours as needed for Nausea. 15 tablet 04/18/2021 05/13/2023 documented as of this encounter Plan of Treatment Upcoming Encounters Date Type Department Care Team (Late st Contact Info) Description 12/08/2023 3:30 PM EDT Office Visit Hematology/Oncology at [address] [phone] Chase Mckay MD [facility] HEMATOLOGY [place] [address] documented as of this encounter Procedures Procedure Name Priority Date/Time Associated Diagnosis Comments NM PET CT SKULL BASE TO MID-THIGH ([facility]) Routine 10/10/2022 4:00 PM EDT Metastatic urothelial carcinoma Primary lung adenocarcinoma, left documented in this encounter Results * NM PET CT Skull Base to Mid-thigh (10/10/2022 4:00 PM EDT) Anatomical Region Laterality Modality Positron Emissio n Tomography (PET) Impressions 10/11/2022 8:59 AM EDT 1. ??There has been no change in appearance since the prior examination. 2. ??A partially necrotic left lower lobe mass extending to the left hilum is consistent with lung malignancy. 3. ??A nonenlarged hypermetabolic subcarinal lymph node may be reactive or metastatic origin. 4. ??There is increased activity in lymph nodes in the neck bilaterally, axilla bilaterally, subcutaneous tissues of the left shoulder, pelvis and inguinal spaces bilaterally. Although metastases are not excluded by this study, this is favored to be inflammatory in origin related to therapy. Multiple foci of activity in the skin, particularly the upper back are also typical of an inflammatory process. 5. ??A hypermetabolic prominent left lingual tonsil lower or left tongue base is unchanged and may be due to inflammation or malignancy. 6. ??Reactive bone marrow. Thank you for letting us participate in the care of this patient. ??If you are a health care provider and have any questions regarding this report, please contact the number below. ??For patients who have questions please contact the health spiritual care coordinator that requested your imaging first. ? Electronically signed by: Billy Anderson MD, [facility] ([phone]), at 10/11/2022 8:59 AM Narrative 10/11/2022 8:59 AM EDT EXAMINATION: NM PET CT STANDARD SKULL BASE TO MID-THIGH CLINICAL HISTORY: Urologic cancer, assess treatment response - Include more detail below Restaging of metastatic urothelial carcinoma TECHNIQUE: Following IV injection of 65-mhidot-7-deoxyglucose (FDG) a standard uptake of approximately 60 minutes, a noncontrast CT scan followed by a PET scan were acquired from the base of the skull to mid thighs. The noncontrast CT was used for anatomic localization and photon attenuation correction of the PET scan. Blood glucose level: 90 (mg/dL) FDG dose: 10.5 mCi COMPARISON: June 11, 2022 FINDINGS: HEAD/NECK: Hypermetabolic lymph nodes are present in the right neck at levels 1B, 2 and 3 and in the left neck at levels 1B, 2 and 5. There is hypermetabolic fullness in either the base of the left-side of the tongue or the left lingual tonsil. The appearance of the neck is unchanged from the prior study. CHEST: An intensely hypermetabolic mass is present in the left lower lobe with extension into the left hilum. The perihilar region is solidly consolidated and the more peripheral aspects of this mass are centrally photopenic with a hypermetabolic rim indicating necrosis. The left lower lobe bronchus is occluded. Hypermetabolic nonenlarged lymph nodes are located in the subcarinal region, both axilla and in the subcutaneous tissues anterior to the left shoulder. Multiple foci of increased activity are present in the skin, principally in the upper back and right upper arm. A right anterior chest wall port has a central venous catheter that extends to the superior cavoatrial junction. Coronary artery calcification is present. Again seen is centrilobular emphysema. Scattered groundglass opacities in the right lung are stable. The appearance of the chest is unchanged since the prior study. ABDOMEN/PELVIS: Increased activity is present in inguinal lymph nodes bilaterally. Borderline enlarged right and left inguinal lymph nodes measure 11 and 12 mm (images 242 and 246). Mildly increased activity is noted in a right obturator lymph node (image 208) and a left external iliac lymph node (image 214). Again seen are bilateral percutaneous nephrostomy tubes. There is no hydronephrosis. No bladder activity is seen. The appearance of the abdomen and pelvis are unchanged since the prior study. SKELETON/EXTREMITIES: Diffusely increased marrow activity is present. Procedure Note Billy Anderson MD - 10/11/2022 EXAMINATION: NM PET CT STANDARD SKULL BASE TO MID-THIGH CLINICAL HISTORY: Urologic cancer, assess treatment response - Includemore detail below Restaging of metastatic urothelial carcinoma TECHNIQUE: Following IV injection of 16-foppju-6-deoxyglucose (FDG) astandard uptake of approximately 60 minutes, a noncontrast CT scan followed by aPET scan were acquired from the base of the skull to mid thighs. The noncontrast CTwas used for anatomic localization and photon attenuation correction of thePET scan. Blood glucose level: 90 (mg/dL) FDG dose: 10.5 mCi COMPARISON: June 11, 2022 FINDINGS: HEAD/NECK: Hypermetabolic lymph nodes are present in the right neck at levels 1B, 2and 3 and in the left neck at levels 1B, 2 and 5. There is hypermetabolicfullness in either the base of the left-side of the tongue or the left lingual tonsil.The appearance of the neck is unchanged from the prior study. CHEST: An intensely hypermetabolic mass is present in the left lower lobe with extension into the left hilum. The perihilar region is solidlyconsolidated and the more peripheral aspects of this mass are centrally photopenic with a hypermetabolic rim indicating necrosis. The left lower lobe bronchus is occluded. Hypermetabolic nonenlarged lymph nodes are located in the subcarinalregion, both axilla and in the subcutaneous tissues anterior to the leftshoulder. Multiple foci of increased activity are present in the skin, principallyin the upper back and right upper arm. A right anterior chest wall port has a central venous catheter thatextends to the superior cavoatrial junction. Coronary artery calcification ispresent. Again seen is centrilobular emphysema. Scattered groundglass opacities inthe right lung are stable. The appearance of the chest is unchanged since the prior study. ABDOMEN/PELVIS: Increased activity is present in inguinal lymph nodes bilaterally.Borderline enlarged right and left inguinal lymph nodes measure 11 and 12 mm ( and 246). Mildly increased activity is noted in a right obturator lymphnode (image 208) and a left external iliac lymph node (image 214). Again seen are bilateral percutaneous nephrostomy tubes. There is no hydronephrosis. No bladder activity is seen. The appearance of the abdomen and pelvis are unchanged since the priorstudy. SKELETON/EXTREMITIES: Diffusely increased marrow activity is present. IMPRESSION 1. There has been no change in appearance since the prior examination. 2. A partially necrotic left lower lobe mass extending to the left hilumis consistent with lung malignancy. 3. A nonenlarged hypermetabolic subcarinal lymph node may be reactiveor metastatic origin. 4. There is increased activity in lymph nodes in the neck bilaterally,axilla bilaterally, subcutaneous tissues of the left shoulder, pelvis andinguinal spaces bilaterally. Although metastases are not excluded by this study,this is favored to be inflammatory in origin related to therapy. Multiple fociof activity in the skin, particularly the upper back are also typical of an inflammatory process. 5. A hypermetabolic prominent left lingual tonsil lower or left tonguebase is unchanged and may be due to inflammation or malignancy. 6. Reactive bone marrow. Thank you for letting us participate in the care of this patient. If youare a health care provider and have any questions regarding this report,please contact the number below. For patients who have questions please contactthe health spiritual care coordinator that requested your imaging first. Electronically signed by: Billy Anderson MD, [facility]([phone]), at 10/11/2022 8:59 AM Jose Lange MD IMG PET ORDERABLES documented in this encounter Visit Diagnoses Diagnosis Metastatic urothelial carcinoma Secondary malignant neoplasm of other urinary organs Primary lung adenocarcinoma, left documented in this encounter Administered Medications Inactive Administered Medications - up to 3 most recent administrations Medication Order MAR Action Action Date Dose Rate Site fludeoxyglucose (F-18) FDG injection 0-20 mCi 0-20 mCi, Intravenous, ONCE PRN, 1 dose, Starting on Nicolasa 10/10/22 at 1438, Until Nicolasa 10/10/22 at 1432, Per Protocol, Radiology Contrast, Routine Given 10/10/2022 2:32 PM EDT 10.5 mCi Right Arm documented in this encounter Care Teams Plant Production Manager Relationship Specialty Start Date End Date Tavia Ramirez, ALESSANDRO [address] [place] [address] PCP - General Family Medicine 06/11/22 documented as of this encounter
--- OUTSIDE RECORDS SUMMARY | 2023-11-21 15:57 | XMS_ITS | Encounter Summary ---
Author Organization [facility] Address [facility] [place] [address] Care Team Providers Care Draw Frame Runner Name Role Phone James Tavia Foster APRN Primary Care Provider [phone] Encounter Details Date Type Department Care Team (Latest Contact Info) Description 10/29/2022 Travel Social History Tobacco Use Types Packs/Day [...] 3:30 PM EDT Office Visit Hematology/Oncology at [address] [phone] Chase Mckay MD [facility] DR [place] [address] documented as of this encounter Visit Diagnoses Not on filedocumented in this encounter Care Teams Draw Frame Runner Relationship Specialty Start Date End Date Tavia Ramirez APRN [place] [address] PCP - General Family Medicine 06/11/22 documented as of this encounter
--- OUTSIDE RECORDS SUMMARY | 2023-11-21 15:57 | XMS_ITS | Encounter Summary ---
Author Organization [facility] Address [facility] [place] [address] Care Team Providers Care Asset Protection Detective Name Role Phone James Tavia Foster APRN Primary Care Provider [phone] Encounter Details Date Type Department Care Team (Latest Contact Info) Description 11/12/2022 Travel Social History Tobacco Use Types Packs/Day [...] PM EDT Office Visit Hematology/Oncology at [address] [phone] Chase Mckay MD [facility] DR [place] [address] documented as of this encounter Visit Diagnoses Not on filedocumented in this encounter Care Teams Asset Protection Detective Relationship Specialty Start Date End Date Tavia Ramirez [place] [place] [address] PCP - General Family Medicine 06/11/22 documented as of this encounter
--- OUTSIDE RECORDS SUMMARY | 2023-11-21 15:57 | XMS_ITS | Encounter Summary ---
Author Organization [facility] [address] Care Team Providers Care Antisqueak Applier Name Role Phone James Tavia Foster APRN Primary Care Provider [phone] Reason for Visit * Consultation (Routine) - Closed Specialty Diagnoses / Procedures Referred By Contac t Referred To Contact Otolaryngology Diagnoses Metastatic urothelial carcinoma Tongue lesion Primary lung adenocarcinoma, left Jose Lange MD [facility] [address] [place] [address] [facility] Otolaryngology [address] [place] [phone] Referral ID Status Reason Start Date Expiration Date V isits Requested Visits Authorized [id number] Closed Consult, Test & Treat 10/08/2022 10/08/2023 1 1 Encounter Details Date Type Department Care Team (Late st Contact Info) Description 11/12/2022 1:40 PM EDT Office [place] [address] Iftikhar Steel III, MD [facility] [place] [address] Normal head and neck exam Social History Tobacco Use Types Packs/Day Years [...] as of this encounter Progress Notes * Iftikhar Steel III, MD - 11/12/2022 1:40 PM EDT Otolaryngology Outpatient Consultation Note Date of Visit: 11/12/2022 Location of Visit: Otolaryngology Clinic, [facility] Patient: Barb Bullard ([id number]; 1950) Primary Care Provider: Tavia Ramirez APRN Referring Provider: Jose Lange Reason for Visit: Barb is a 72 y.o. female seen at the request of Jose Lange in consultationfor a possible mass at the left tongue base.. History of Present Illness: Barb had a recent PET CT to evaluate metastatic urologic cancer, and activity was noted in the tongue base. She has had no symptoms referable to the area. There has been no pain, dysphonia, or dysphagia. Past Medical History: No past medical history on file. Past Surgical History: Past Surgical History: Procedure Laterality Date IR MEDIPORT PLACEMENT 04/02/2021 IR Mediport Placement 04/02/2021 Yuval Sinclair PA [facility] INTERVENTIONL RAD IR NEPHROSTOMY TUBE EXCHANGE BILATERAL 04/24/2022 IR Nephrogram/Nephrostomy Tube Exchange Bilateral 04/24/2022 Alin Dillard MD [facility] INTERVENTIONL RAD IR NEPHROSTOMY TUBE EXCHANGE BILATERAL 07/26/2022 IR Nephrogram/Nephrostomy Tube Exchange Bilateral 07/26/2022 Robe Hope PA [facility] INTERVENTIONL RAD IR NEPHROSTOMY TUBE EXCHANGE BILATERAL 10/18/2022 IR Nephrogram/Nephrostomy Tube Exchange Bilateral 10/18/2022 Alexis De La Cruz MD [facility] INTERVENTIONL RAD IR NEPHROSTOMY TUBE PLACEMENT PERCUTANEOUS BILATERAL 02/20/2021 IR Nephrostomy Tube Placement Percutaneous Bilateral [facility] INTERVENTIONL RAD IR NEPHROURETERAL (NU) STENT PLACEMENT/CHECK/CHANGE 07/13/2021 IR Nephroureteral (NU) Stent Placement Check/Change 07/13/2021 Alexis De La Cruz MD [facility] INTERVENTIONLRAD IR NEPHROURETERAL (NU) STENT PLACEMENT/CHECK/CHANGE 10/23/2021 IR Nephroureteral (NU) Stent Placement Check/Change 10/23/2021 Zeferino Rosado MD [facility] INTERVENTIONL RAD IR NEPHROURETERAL (NU) STENT PLACEMENT/CHECK/CHANGE 01/18/2022 IR Nephroureteral (NU) Stent Placement Check/Change 01/18/2022 Guillermo Nice MD [facility] INTERVENTIONLRAD PRO [facility] EBUS GUIDED SAMPL 3/> NODE STATION/STRUX N/A 04/04/2021 BRONCH, W ENDOBRONCHIAL ULTRASOUND (EBUS) GUIDED SAMPLING, 3+ NODES (WRVU 5.21) performed by Alonzo Cevallos MD at [facility] MAIN OR PRO BRONCHOSCOPY, DIAGNOSTIC W LAVAGE N/A 04/04/2021 BRONCHOSCOPY, RIGID OR FLEXIBLE, WITH BRONCHIAL ALVEOLAR LAVAGE (WRVU 2.88) performed by Alonzo Cevallos MD at [facility] MAIN OR Medications: Current Outpatient Medications on File Prior to Visit Medication Sig Dispense Refill traMADoL (Ultram) 50 mg Tablet Take 1 tablet by mouth every 6 hours as needed for Pain. (Patient not taking: Reported on 10/08/2022) 30 tablet 0 levothyroxine (Synthroid) 75 mcg Tablet Take 1 tablet by mouth daily. 30 [...] Allergies: Patient has no known allergies. Social History: [place] [place] [id number], Tobacco:No Alcohol:No Other: Immunizations UTD. Family History: No family history on file. Review of Systems: Pertinent positive findings discussed above. No other findings on review of constitutional, visual, cardiovascular, respiratory, gastrointestinal, genitourinary, musculoskeletal, dermatologic, neurological, psychiatric, endocrine, hematologic or immunologic systems. Physical Examination: Vitals: There were no vitals taken for this visit. General: No acute distress. Face: Full and symmetric facial movement. No dysmorphic facial features. Eyes: Periocular structures and conjunctiva healthy without lesions. Pupils are equal, round, and reactive to light. Extraocular movement is full and intact. No dysconjugate gaze. No evidence of nystagmus. Ears: Auricles symmetric without lesions. External auditory canals clear. Right tympanic membrane normal, right middle ear normal. Left tympanic membrane normal, left middle ear normal. Nose: Patent anteriorly with adequate airflow, healthy pink mucosa. Septum is midline without significant deviation. Inferior turbinates normal. Mouth: Lips and gingiva pink, moist, without lesions. Dentition healthy. Tongue and floor of mouth soft without lesions or masses. Hard palate without lesions. Base of tongue normal to palpation. Pharynx: Soft palate without lesions. Uvula is intact. Oropharynx symmetric. Larynx: Vocal mobility and morphology normal. Neck: Soft, supple, without significant lymphadenopathy. Thyroid gland without masses or asymmetry.Trachea midline without deviation. Lymphatic: Negative for additional peripheral lymphadenopathy or lymphedema. Neurologic: Cranial nerves II-XII intact and symmetric. Procedure - Flexible Fiberoptic Laryngoscopy: Topical anesthetic applied to the nasal cavity. Patient tolerated the procedure well without complication. Findings: Nasal Cavity: Normal Nasopharynx: normal Oropharynx: Normal. No abnormality noted in tongue base. Larynx: Normal vocal mobility and morphology Hypopharynx: Normal. Imaging Studies HEAD/NECK: Hypermetabolic lymph nodes are present in the right neck at levels 1B, 2 and 3 and in the left neck at levels 1B, 2 and 5. There is hypermetabolic fullness in either the base of the left-side of the tongue or the left lingual tonsil. The appearance of the neck is unchanged from the prior study. (Personally reviewed by me) Impression: No base of tongue abnormality noted. Recommendations: Reassurance. documented in this encounter Plan of Treatment Upcoming Encounters Date Type Department Care Team (Late st Contact Info) Description 12/08/2023 3:30 PM EDT Office Visit Hematology/Oncology at [address] [address] Chase Mckay MD [facility] DR [place] [address] Scheduled Referrals Name Type Priority Associated Diagnoses Orde r Schedule Referral to ENT Outpatient Referral Routine Metastatic urothelial carcinoma Tongue lesion Primary lung adenocarcinoma, left Ordered: 10/08/2022 documented as of this encounter Visit Diagnoses Diagnosis Normal head and neck exam Reserved for inherently not codable concepts WITHOUT codable children documented in this encounter Care Teams Antisqueak Applier Relationship Specialty Start Date End Date Tavia Ramirez [place] [place] [address] PCP - General Family Medicine 06/11/22 documented as of this encounter
--- OUTSIDE RECORDS SUMMARY | 2023-11-21 15:57 | XMS_ITS | Encounter Summary ---
Author Organization [facility] Address [facility] [address] Care Team Providers Care Parking Meter Installer Name Role Phone James Tavia Foster APRN Primary Care Provider [phone] Encounter Details Date Type Department Care Team (Latest Contact Info) Description 12/17/2022 Travel Social History Tobacco Use Types Packs/Day [...] 3:30 PM EDT Office Visit Hematology/Oncology at [address] [phone] Chase Mckay MD [facility] DR [place] [address] documented as of this encounter Visit Diagnoses Not on filedocumented in this encounter Care Teams Parking Meter Installer Relationship Specialty Start Date End Date Tavia Ramirez [place] [address] [place] [address] PCP - General Family Medicine 06/11/22 documented as of this encounter
--- OUTSIDE RECORDS SUMMARY | 2023-11-21 15:57 | XMS_ITS | Encounter Summary ---
Author Organization [facility] [place] [address] Care Team Providers Care Pulp Roller Name Role Phone James Tavia Foster APRN Primary Care Provider [phone] Encounter Details Date Type Department Care Team (Latest Contact Info) Description 11/05/2022 Travel Social History Tobacco Use Types Packs/Day [...] PM EDT Office Visit Hematology/Oncology at [address] [address] Chase Mckay MD [facility] DR [place] [address] documented as of this encounter Visit Diagnoses Not on filedocumented in this encounter Care Teams Pulp Roller Relationship Specialty Start Date End Date Tavia Ramirez APR[place] [address] PCP - General Family Medicine 06/11/22 documented as of this encounter
--- OUTSIDE RECORDS SUMMARY | 2023-11-21 15:57 | XMS_ITS | Encounter Summary ---
Author Organization [facility] [place] [address] Care Team Providers Care Asset Protection Assistant Name Role Phone Tavia Ramirez APRN Primary Care Provider [phone] Reason for Visit * Reason Comments Chemotherapy * Treatment/Therapy Plan Authorization (Routine) - Closed Specialty Diagnoses / Procedures Referred By Contac t Referred To Contact Hematology and Oncology Diagnoses Metastatic urothelial carcinoma Abnormal thyroid function test Procedures [id number] Jose Barnhart MD [address] [place] [address] [place] [address] Jose Lange MD [address] [place] [address] DR [place] [address] Referral ID Status Reason Start Date Expiration Date Visits Re quested Visits Authorized [id number] Closed 04/28/2022 06/24/2023 99 99 Encounter Details Date Type Department Care Team (Late st Contact Info) Description 11/26/2022 10:30 AM EDT Infusion Hematology Oncology at [address] [phone] Metastatic urothelial carcinoma Social History Tobacco Use [...] Progress Notes * Chalino Bourne, RN - 11/26/2022 10:30 AM EDT INFUSION THERAPY ADMINISTRATION NOTES DIAGNOSIS: Metastatic urothelial cancer and primary lung cancer CYCLE #: Cycle 27, Day 1 - Pembrolizumab REASON FOR VISIT: To receive planned chemotherapy. SUBJECTIVE: Barb offers no complaints. OBJECTIVE: Seen by provider. Ready to treat. LAB DATA: WBC - 11/26/22 adequate for treatment IV ACCESS: Port accessed off site. Flushes [...] PM EDT Office Visit Hematology/Oncology at [address] [phone] Chase Mckay MD [facility] DR HEMATOLOGY [place] [address] documented as of this encounter Visit Diagnoses Diagnosis Metastatic urothelial carcinoma Secondary malignant neoplasm of other urinary organs documented in this encounter Administered Medications Inactive Administered Medications - up to 3 most recent administrations Medication Order MAR Action Action Date Dose Rate Site heparin (pf) (porcine) (100 units/mL) flush 5 mL syringe 500 Units 500 Units, Intravenous, ONCE PRN, Starting on Fri11/26/22 at 1040, Until Fri11/26/22 at 1348, Line Care, Refer to Intravenous (IV) Procedure: Accessing Implanted Vascular Access Devices (892) procedure and/or Intravenous (IV) Job Aid: Adult Flushing & Catheter Care (4851) job aid for additional information regarding guidelines and administration., Routine Given 11/26/2022 11:45 AM EDT 500 Units pembrolizumab (Keytruda) 200 mg in sodium chloride 0.9% 108 mL infusion 200 mg, Intravenous, ONCE, 1 dose, On Fri11/26/22 at 1200, Administer over 30 Minutes, Flush line with NS after each dose., This agent is restricted to outpatient use. Is this drug being given as an outpatient? Yes New Bag 11/26/2022 11:07 AM EDT 200 mg 216 mL/hr sodium chloride 0.9% infusion 100 mL/hr, Intravenous, CONTINUOUS, Starting on Fri11/26/22 at 1100, Until Fri11/26/22 at 1348 New Bag 11/26/2022 10:50 AM EDT 100 mL/hr 100 mL/hr documented in this encounter Care Teams Asset Protection Assistant Relationship Specialty Start Date End Date Tavia Ramirez [place] [address] [place] [address] PCP - General Family Medicine 06/11/22 documented as of this encounter
--- OUTSIDE RECORDS SUMMARY | 2023-11-21 15:57 | XMS_ITS | Encounter Summary ---
Author Organization [facility] [place] [address] Care Team Providers Care Personnel Security Assistant Name Role Phone Tavia Ramirez APRN Primary Care Provider [phone] Reason for Visit * Reason Comments Chemotherapy Cycle 23, Day 1; Pem bro * Treatment/Therapy Plan Authorization (Routine) - Closed Specialty Diagnoses / Procedures Referred By Contac t Referred To Contact Hematology and Oncology Diagnoses Metastatic urothelial carcinoma Abnormal thyroid function test Procedures [id number] Jose Barnhart MD [address] [place] [address] [place] [address] Jose Lange MD [address] [place] [address] DR [place] [address] Referral ID Status Reason Start Date Expiration Date Visits Re quested Visits Authorized [id number] Closed 04/28/2022 06/24/2023 99 99 Encounter Details Date Type Department Care Team (Late st Contact Info) Description 08/13/2022 2:00 PM EDT Infusion Hematology Oncology at [address] [phone] Metastatic urothelial carcinoma Social History Tobacco Use [...] of this encounter Progress Notes * Rasheed Roper, RN - 08/13/2022 2:00 PM EDT INFUSION THERAPY ADMINISTRATION NOTES DIAGNOSIS: Metastatic urothelial cancer and primary lung cancer CYCLE #23: Day 1 REASON FOR VISIT: Pembrolizumab SUBJECTIVE: Barb offers no complaints. Met with provider prior to infusion. OBJECTIVE: Port flushes with brisk blood return. LAB DATA: Done today at [facility] and [facility] for treatment. IV ACCESS: Port accessed off site. Flushes readily with brisk blood return. Pre administration: Chemotherapy orders independently verified for drug name, route, and dosage per patient's height, weight and BSA by RASHEED ROPER, RN and Staff Pharmacist(s). REACTIONS (DESCRIPTION, TIME, [...] 3:30 PM EDT Office Visit Hematology/Oncology at [address] [phone] Chase Mckay MD [facility] DR HEMATOLOGY [place] [address] documented as of this encounter Visit Diagnoses Diagnosis Metastatic urothelial carcinoma Secondary malignant neoplasm of other urinary organs documented in this encounter Administered Medications Inactive Administered Medications - up to 3 most recent administrations Medication Order MAR Action Action Date Dose Rate Site heparin (pf) (porcine) (100 units/mL) flush 5 mL syringe 500 Units 500 Units, Intravenous, ONCE PRN, Starting on Fri08/13/22 at 1424, Until Fri08/13/22 at 1750, Line Care, Refer to Intravenous (IV) Procedure: Accessing Implanted Vascular Access Devices (844) procedure and/or Intravenous (IV) Job Aid: Adult Flushing & Catheter Care (8437) job aid for additional information regarding guidelines and administration., Routine Given 08/13/2022 3:34 PM EDT 500 Units pembrolizumab (Keytruda) 200 mg in sodium chloride 0.9% 108 mL infusion 200 mg, Intravenous, ONCE, 1 dose, On Fri08/13/22 at 1545, Administer over 30 Minutes, Flush line with NS after each dose., This agent is restricted to outpatient use. Is this drug being given as an outpatient? Yes New Bag 08/13/2022 3:01 PM EDT 200 mg 216 mL/hr sodium chloride 0.9 % (flush) (BD PosiFlush Normal Saline 0.9) flush 5-20 mL 5-20 mL, Intravenous, EVERY 1 MIN PRN, Starting on Fri08/13/22 at 1424, Until Fri08/13/22 at 1750, Line Care, Flush pertains to all indwelling lines. Flush per protocol found in the job aid using the link provided on this medication record. Refer to Intravenous (IV) Job Aid: Adult Flushing & Catheter Care (8926) job aid for additional information regarding guidelines and administration., Routine Given 08/13/2022 3:33 PM EDT 20 mLs documented in this encounter Care Teams Personnel Security Assistant Relationship Specialty Start Date End Date Tavia Ramirez [place] [place] [address] PCP - General Family Medicine 06/11/22 documented as of this encounter
--- OUTSIDE RECORDS SUMMARY | 2023-11-21 15:57 | XMS_ITS | Encounter Summary ---
Author Organization [facility] Address [facility] [place] [address] Care Team Providers Care Compliance Mgr Name Role Phone James Tavia Foster APRN Primary Care Provider [phone] Encounter Details Date Type Department Care Team (Latest Contact Info) Description 10/07/2022 Travel Social History Tobacco Use Types Packs/Day [...] PM EDT Office Visit Hematology/Oncology at [address] [phone] Chase Mckay MD [facility] DR [place] [address] documented as of this encounter Visit Diagnoses Not on filedocumented in this encounter Care Teams Compliance Mgr Relationship Specialty Start Date End Date Tavia Ramirez [place] [place] [address] PCP - General Family Medicine 06/11/22 documented as of this encounter
--- OUTSIDE RECORDS SUMMARY | 2023-11-21 15:57 | XMS_ITS | Encounter Summary ---
Author Organization [facility] [place] [address] Care Team Providers Care Boat Outfitter Name Role Phone James Tavia Foster APRN Primary Care Provider [phone] Encounter Details Date Type Department Care Team (Latest Contact Info) Description 01/03/2023 Travel Social History Tobacco Use Types Packs/Day [...] PM EDT Office Visit Hematology/Oncology at [address] [phone] Chase Mckay MD [facility] DR HEMATOLOGY [place] [address] documented as of this encounter Visit Diagnoses Not on filedocumented in this encounter Care Teams Boat Outfitter Relationship Specialty Start Date End Date Tavia Ramirez [place] [place] [address] PCP - General Family Medicine 06/11/22 documented as of this encounter
--- OUTSIDE RECORDS SUMMARY | 2023-11-21 15:57 | XMS_ITS | Encounter Summary ---
Author Organization [facility] Address [facility] [place] [address] Care Team Providers Care Cook School Cafeteria Name Role Phone James Tavia Foster APRN Primary Care Provider [phone] Encounter Details Date Type Department Care Team (Latest Contact Info) Description 10/08/2022 Travel Social History Tobacco Use Types Packs/Day [...] 3:30 PM EDT Office Visit Hematology/Oncology at [address] [phone] Chase Mckay MD [facility] DR HEMATOLOGY [place] [address] documented as of this encounter Visit Diagnoses Not on filedocumented in this encounter Care Teams [employer] Cafeteria Relationship Specialty Start Date End Date Tavia Ramirez APR[place] [address] PCP - General Family Medicine 06/11/22 documented as of this encounter
--- OUTSIDE RECORDS SUMMARY | 2023-11-21 15:57 | XMS_ITS | Encounter Summary ---
Author Organization [facility] Address [facility] [place] [address] Care Team Providers Care Arc Welding Machine Operator Name Role Phone James Tavia Foster APRN Primary Care Provider [phone] Encounter Details Date Type Department Care Team (Latest Contact Info) Description 09/03/2022 Travel Social History Tobacco Use Types Packs/Day [...] PM EDT Office Visit Hematology/Oncology at [address] [address] Chase Mckay MD [facility] DR HEMATOLOGY [place] [address] documented as of this encounter Visit Diagnoses Not on filedocumented in this encounter Care Teams Arc Welding Machine Operator Relationship Specialty Start Date End Date Tavia Ramirez [place] [place] [address] PCP - General Family Medicine 06/11/22 documented as of this encounter
--- OUTSIDE RECORDS SUMMARY | 2023-11-21 15:57 | XMS_ITS | Encounter Summary ---
Author Organization [facility] [place] [address] Care Team Providers Care Stock Checkerer Name Role Phone Tavia Ramirez APRN Primary Care Provider [phone] Reason for Visit * Reason Comments Chemotherapy C24 D1-Pembrolizumab * Treatment/Therapy Plan Authorization (Routine) - Closed Specialty Diagnoses / Procedures Referred By Contac t Referred To Contact Hematology and Oncology Diagnoses Metastatic urothelial carcinoma Abnormal thyroid function test Procedures [id number] Jose Barnhart MD [address] [place] [address] DR [place] [address] Jose Lange MD [address] [place] [address] DR [place] [address] Referral ID Status Reason Start Date Expiration Date Visits Re quested Visits Authorized [id number] Closed 04/28/2022 06/24/2023 99 99 Encounter Details Date Type Department Care Team (Late st Contact Info) Description 09/03/2022 2:00 PM EDT Infusion Hematology Oncology at [address] [phone] Metastatic urothelial carcinoma Social History Tobacco Use Types Packs/Day Years Used Date Smoking Tobacco: Former Cigarettes Q uit: 07/04/2014 Smokeless Tobacco: Never Alcohol Use Standard Drinks/Week Comments Not Currently 0 (1 standard drink = 0.6 oz pur e alcohol) Overall Financial Resource Strain (CARDIA) Mustaphae r Date Recorded How hard is it [...] as of this encounter Progress Notes * Paulina Sales, RN - 09/03/2022 2:00 PM EDT INFUSION THERAPY ADMINISTRATION NOTES DIAGNOSIS: Metastatic urothelial cancer and primary lung cancer CYCLE #24: Day 1 REASON FOR VISIT: Pembrolizumab SUBJECTIVE: Barb offers no complaints. Met with provider prior to infusion. OBJECTIVE: Port flushes with blood return. Pt positioned laid back to obtain blood return. LAB DATA: Done today at [facility] and [facility] for treatment. IV ACCESS: Port accessed off site. Flushes readily with blood return.. Pre administration: Chemotherapy orders independently verified for drug name, route, and dosage per patient's height, weight and BSA by Paulina Sales, TORITO and Staff Pharmacist(s). REACTIONS (DESCRIPTION, TIME, INTERVENTION [...] PM EDT Office Visit Hematology/Oncology at [address] [phone] Chase Mckay MD [facility] DR HEMATOLOGY [place] [address] documented as of this encounter Visit Diagnoses Diagnosis Metastatic urothelial carcinoma Secondary malignant neoplasm of other urinary organs documented in this encounter Administered Medications Inactive Administered Medications - up to 3 most recent administrations Medication Order MAR Action Action Date Dose Rate Site pembrolizumab (Keytruda) 200 mg in sodium chloride 0.9% 108 mL infusion 200 mg, Intravenous, ONCE, 1 dose, On Fri09/03/22 at 1515, Administer over 30 Minutes, Flush line with NS after each dose., This agent is restricted to outpatient use. Is this drug being given as an outpatient? Yes New Bag 09/03/2022 2:43 PM EDT 200 mg 216 mL/hr sodium chloride 0.9% infusion 100 mL/hr, Intravenous, CONTINUOUS, Starting on Fri09/03/22 at 1415, Until Fri09/03/22 at 1726 New Bag 09/03/2022 2:01 PM EDT 100 mL/hr 100 mL/hr documented in this encounter Care Teams Stock Checkerer Relationship Specialty Start Date End Date Tavia Ramirez, ALESSANDRO [address] [place] [address] PCP - General Family Medicine 06/11/22 documented as of this encounter
--- OUTSIDE RECORDS SUMMARY | 2023-11-21 15:57 | XMS_ITS | Encounter Summary ---
[place] [address] Care Team Providers Care Coordinator Of Rehabilitation Services Name Role Phone Tavia Ramirez APRN Primary Care Provider [phone] Reason for Referral * Diagnostic Test (Routine) - Closed Specialty Diagnoses / Procedures Referred By Contac t Referred To Contact Radiology Diagnoses Obstructive uropathy Procedures IR Nephrogram/Nephrostomy Tube Exchange Bilateral Alexis De La Cruz MD [facility] DR DIAG[place] [address] [facility] [place] [address] Referral ID Status Reason Start Date Expiration Date V isits Requested Visits Authorized [id number] Closed Specialty Service Requested 10/18/2022 04/19/2024 1 1 * Diagnostic Test (Routine) - Closed Specialty Diagnoses / Procedures Referred By Contac t Referred To Contact Radiology Diagnoses Obstructive uropathy Metastatic urothelial carcinoma Procedures IR Nephrogram/Nephrostomy Tube Exchange Bilateral Robe Hope PA [facility] INTERVENTION[place] [address] [facility] [place] [address] Referral ID Status Reason Start Date Expiration Date V isits Requested Visits Authorized [id number] Closed Specialty Service Requested 07/26/2022 01/26/2024 1 1 Reason for Visit * Diagnostic Test (Routine) - Closed Specialty Diagnoses / Procedures Referred By Contjoslyn t Referred To Contact Radiology Diagnoses Obstructive uropathy Metastatic urothelial carcinoma Procedures IR Nephrogram/Nephrostomy Tube Exchange Bilateral Robe Hope PA [facility] DR INTERVENTION[place] [address] [facility] [place] [address] Referral ID Status Reason Start Date Expiration Date V isits Requested Visits Authorized [id number] Closed Specialty Service Requested 07/26/2022 01/26/2024 1 1 Encounter Details Date Type Department Care Team (Latest Contact Info) Description 10/18/2022 12:18 PM EDT - 10/18/2022 11:59 PM EDT Hospital [place] [address] Alin Dillard MD [facility] DR INTERVENTION[place] [address] Obstructive uropathy; Metastatic urothelial carcinoma Discharge Disposition: Home Social [...] Sign Reading Time Taken Comments Blood Pressure 146/69 10/18/2022 2:20 PM EDT Pulse 87 10/18/2022 12:58 PM EDT Temperature 36.6 ??C (97.9 ??F) 10/18/2022 12:58 PM E DT Respiratory Rate 16 10/18/2022 2:20 PM EDT Oxygen Saturation 97% 10/18/2022 2:20 PM EDT Inhaled Oxygen Concentration - - [...] of this encounter Progress Notes * Cortney Taylor RN - 10/18/2022 2:20 PM EDT ANGIO NURSING DATABASE Name: Barb Bullard Date of : 1950 AGE: 72 y.o. Address: [address] [facility] [address] (home) Mobile: Telephone Information: Referring Provider: Robe Hope REASON FOR VISIT: Order Questions Answers Where will study be performed? [facility] Radiology [120] Reason for exam and clinical history: UCC, bilateral nephrostomy drains Exam/Procedure requested: Routine exchange at 3 mo interval Is the patient on anticoagulant / antiplatelet [...] nephrostomy tube exchange Lido jelly, cipro 500mg 1338 to procedure room 4 via stretcher. Onto table prone. All monitors, O2, safety strap in place. Meds per protocol. Laboratory Results: Lab Results Component Value Date CREATININE 1.54 (H) 07/13/2021 Lab Results Component Value Date K 4.5 04/16/2021 Lab Results Component Value Date PLATELET 873 (H) 04/16/2021 documented in this encounter H&P Notes * Alin Dillard MD - 10/18/2022 1:19 PM EDT INTERVENTIONAL RADIOLOGY FOCUSED H&P: Procedure: Bilateral neph tube change The patient's history and physical exam [...] to the procedure. PRE-SEDATION ASSESSMENT: Sedation Plan: moderate (conscious sedation) ASA: 2: Patient with mild systemic disease Mallampati: II: tonsillar pillars are blocked by the tongue Confirm NPO status: Yes History of anesthetic complications: No Current medications reviewed: Yes Allergies reviewed: Yes Source Note - Alexis De La Cruz MD - 09/30/2022 10:50 AM EDT Images from the original note were not included. INTERVENTIONAL RADIOLOGY FOCUSED H&P and PRE-PROCEDURE NOTE: PCP: Tavia Ramirez APRN Planned Procedure: Bilateral nephrostomy catheter check/exchange/removal Procedure Indication: Malignant obstruction Presenting Diagnosis/ Complaint: Barb Bullard is a 72 y.o. female with hx of metastatic urothelialcarcinoma complicated by hydronephrosis s/p bilateral NU placement on 02/20/2021, but were converted to bilateral 10 estonian nephrostomy catheter on 01/18/22. Last seen by IR on 07/26/22 w/ placement ofnew 10 Fr pigtail drains. Now presenting to IR for routine PCN exchange. IR History: 02/20/21 b/l PCN Placement No abx - [...] (admin by ); Topical; 2% lidocaine jelly Past Medical/Surgical History: Patient Active Problem List [...] IR Mediport Placement 04/02/2021 Yuval Sinclair PA [facility] INTERVENTIONL RAD IR NEPHROSTOMY TUBE EXCHANGE BILATERAL 04/24/2022 IR Nephrogram/Nephrostomy Tube Exchange Bilateral 04/24/2022 Alin Dillard MD [facility] INTERVENTIONL RAD IR NEPHROSTOMY TUBE EXCHANGE BILATERAL 07/26/2022 IR Nephrogram/Nephrostomy Tube Exchange Bilateral 07/26/2022 Robe Hope PA [facility] INTERVENTIONL RAD IR NEPHROSTOMY TUBE PLACEMENT PERCUTANEOUS BILATERAL 02/20/2021 IR Nephrostomy Tube Placement Percutaneous Bilateral [facility] INTERVENTIONL RAD IR NEPHROURETERAL (NU) STENT PLACEMENT/CHECK/CHANGE 07/13/2021 IR Nephroureteral (NU) Stent Placement Check/Change 07/13/2021 Alexis De La Cruz MD [facility] INTERVENTIONLRAD IR NEPHROURETERAL (NU) STENT PLACEMENT/CHECK/CHANGE 10/23/2021 IR Nephroureteral (NU) Stent Placement Check/Change 10/23/2021 Zeferino Rosado MD [facility] INTERVENTIONL RAD IR NEPHROURETERAL (NU) STENT PLACEMENT/CHECK/CHANGE 01/18/2022 IR Nephroureteral (NU) Stent Placement Check/Change 01/18/2022 Guillermo Nice MD [facility] INTERVENTIONLRAD [facility] EBUS GUIDED SAMPL 3/> NODE STATION/STRUX N/A 04/04/2021 BRONCH, W ENDOBRONCHIAL ULTRASOUND (EBUS) GUIDED SAMPLING, 3+ NODES (WRVU 5.21) performed by Alonzo Cevallos MD at [facility] MAIN OR PRO BRONCHOSCOPY, DIAGNOSTIC W LAVAGE N/A 04/04/2021 BRONCHOSCOPY, RIGID OR FLEXIBLE, WITH BRONCHIAL ALVEOLAR LAVAGE (WRVU 2.88) performed by Alonzo Cevallos MD at [facility] MAIN OR Medications: Current Outpatient Medications on File Prior to Encounter Medication Sig ciprofloxacin (Cipro) 500 mg Tablet Take 500 mg by mouth 2 times daily. traMADoL (Ultram) 50 mg Tablet Take 1 tablet by mouth every 6 hours as needed for Pain. levothyroxine (Synthroid) 75 mcg Tablet Take 1 tablet by mouth daily. acetaminophen (Tylenol) 500 mg Tablet Take 1,000 mg by mouth every 8 hours as needed for Pain. senna (Senokot) 8.6 mg Tablet Take by mouth daily. prochlorperazine (Compazine) 10 mg Tablet Take 1 tablet by mouth every 6 hours as needed for Nausea. (Patient not taking: Reported on 08/07/2021) Allergies: Patient has no known allergies. Social [...] quittin.2 Smokeless tobacco: Never Vaping Use Vaping Use: Never used Substance and Sexual Activity Alcohol use: Not Currently Drug use: Never Sexual activity: Not on file Other Topics Concern Not on file Social History Narrative Not on file Social Determinants of Health Financial Resource Strain: Not on file Food Insecurity: Not on file Transportation Needs: Not on file Physical Activity: Not on file Housing Stability: Not on file Significant Family History: No family history on [...] of procedure) Assessment: 72 y.o. female with metastatic urothelial carcinoma complicated by hydronephrosis s/p bilateral NU placement, now with bilateral PN Plan: bilateral perc neph exchange No data recorded 09/30/2022 * Alexis De La Cruz MD - 09/30/2022 10:50 AM EDT Images from the original note were not included. INTERVENTIONAL RADIOLOGY FOCUSED H&P and PRE-PROCEDURE NOTE: PCP: Tavia Ramirez APRN Planned Procedure: Bilateral nephrostomy catheter check/exchange/removal Procedure Indication: Malignant obstruction Presenting Diagnosis/ Complaint: Barb Bullard is a 72 y.o. female with hx of metastatic urothelialcarcinoma complicated by hydronephrosis s/p bilateral NU placement on 02/20/2021, but were converted to bilateral 10 estonian nephrostomy catheter on 01/18/22. Last seen by IR on 07/26/22 w/ placement ofnew 10 Fr pigtail drains. Now presenting to IR for routine PCN exchange. IR History: 02/20/21 b/l PCN Placement No abx - [...] (admin by ); Topical; 2% lidocaine jelly Past Medical/Surgical History: Patient Active Problem List [...] IR Mediport Placement 04/02/2021 Yuval Sinclair PA [facility] INTERVENTIONL RAD IR NEPHROSTOMY TUBE EXCHANGE BILATERAL 04/24/2022 IR Nephrogram/Nephrostomy Tube Exchange Bilateral 04/24/2022 Alin Dillard MD [facility] INTERVENTIONL RAD IR NEPHROSTOMY TUBE EXCHANGE BILATERAL 07/26/2022 IR Nephrogram/Nephrostomy Tube Exchange Bilateral 07/26/2022 Robe Hope PA [facility] INTERVENTIONL RAD IR NEPHROSTOMY TUBE PLACEMENT PERCUTANEOUS BILATERAL 02/20/2021 IR Nephrostomy Tube Placement Percutaneous Bilateral [facility] INTERVENTIONL RAD IR NEPHROURETERAL (NU) STENT PLACEMENT/CHECK/CHANGE 07/13/2021 IR Nephroureteral (NU) Stent Placement Check/Change 07/13/2021 Alexis De La Cruz MD [facility] INTERVENTIONLRAD IR NEPHROURETERAL (NU) STENT PLACEMENT/CHECK/CHANGE 10/23/2021 IR Nephroureteral (NU) Stent Placement Check/Change 10/23/2021 Zeferino Rosado MD [facility] INTERVENTIONL RAD IR NEPHROURETERAL (NU) STENT PLACEMENT/CHECK/CHANGE 01/18/2022 IR Nephroureteral (NU) Stent Placement Check/Change 01/18/2022 Guillermo Nice MD [facility] INTERVENTIONLRAD [facility] EBUS GUIDED SAMPL 3/> NODE STATION/STRUX N/A 04/04/2021 BRONCH, W ENDOBRONCHIAL ULTRASOUND (EBUS) GUIDED SAMPLING, 3+ NODES (WRVU 5.21) performed by Alonzo Cevallos MD at [facility] MAIN OR PRO BRONCHOSCOPY, DIAGNOSTIC W LAVAGE N/A 04/04/2021 BRONCHOSCOPY, RIGID OR FLEXIBLE, WITH BRONCHIAL ALVEOLAR LAVAGE (WRVU 2.88) performed by Alonzo Cevallos MD at [facility] MAIN OR Medications: Current Outpatient Medications on File Prior to Encounter Medication Sig ciprofloxacin (Cipro) 500 mg Tablet Take 500 mg by mouth 2 times daily. traMADoL (Ultram) 50 mg Tablet Take 1 tablet by mouth every 6 hours as needed for Pain. levothyroxine (Synthroid) 75 mcg Tablet Take 1 tablet by mouth daily. acetaminophen (Tylenol) 500 mg Tablet Take 1,000 mg by mouth every 8 hours as needed for Pain. senna (Senokot) 8.6 mg Tablet Take by mouth daily. prochlorperazine (Compazine) 10 mg Tablet Take 1 tablet by mouth every 6 hours as needed for Nausea. (Patient not taking: Reported on 08/07/2021) Allergies: Patient has no known allergies. Social [...] quittin.2 Smokeless tobacco: Never Vaping Use Vaping Use: Never used Substance and Sexual Activity Alcohol use: Not Currently Drug use: Never Sexual activity: Not on file Other Topics Concern Not on file Social History Narrative Not on file Social Determinants of Health Financial Resource Strain: Not on file Food Insecurity: Not on file Transportation Needs: Not on file Physical Activity: Not on file Housing Stability: Not on file Significant Family History: No family history on [...] of procedure) Assessment: 72 y.o. female with metastatic urothelial carcinoma complicated by hydronephrosis s/p bilateral NU placement, now with bilateral PN Plan: bilateral perc neph exchange No data recorded 09/30/2022 documented in this encounter Plan of Treatment Upcoming Encounters Date Type Department Care Team (Late st Contact Info) Description 12/08/2023 3:30 PM EDT Office Visit Hematology/Oncology at [address] [address] Chase Mckay MD [facility] DR HEMATOLOGY [place] [address] documented as of this encounter Procedures Procedure Name Priority Date/Time Associated Diagnosis Comments IR NEPHROGRAM/NEPHROST CAYLA TUBE EXCHANGE BILATERAL Routine 10/18/2022 2:15 PM EDT Obstructive uropathy Metastatic urothelial carcinoma documented in this encounter Results * IR Nephrogram/Nephrostomy Tube Exchange Bilateral (12/11/2022 1:57 PM EDT) Anatomical Region Laterality Modality X-Ray Angiograph y Impressions 12/11/2022 2:20 PM EDT : Successful routine exchange of 8 Fr Bilateral ??percutaneous nephrostomy tubes. ?? I, Dr. De La Cruz, was present throughout the procedure. Narrative 12/11/2022 2:20 PM EDT IR PROCEDURE REPORT : ??Bilateral Percutaneous nephrostomy check, exchange INDICATION: routine exchange of Bilateral ??PCN TECHNIQUE: TECHNIQUE: Spot image obtained. ??5cc 1% lido sq. ??Contrast injected, spot images obtained. Suture released, and catheter exchanged over guidewire for new 8 Fr nephrosotmy tube. ??Patient tolerated the procedure well and there were no immediate complications. Contrast : 20 cc Omni. ??EBL: 0 cc FINDINGS: Bilateral percutaneous nephrostomy tubes, tips coiled, retracted into calyces, repositioned into renal pelves. ??Contrast does not pass distal to UPJs. ?? Alexis De La Cruz MD G IR ORDERABLES * IR Nephrogram/Nephrostomy Tube Exchange Bilateral (10/18/2022 2:15 PM EDT) Anatomical Region Laterality Modality X-Ray Angiograph y Narrative 10/18/2022 2:30 PM EDT Interventional Radiology Procedure Note Procedure: Exchange of bilateral percutaneous nephrostomy drains under fluoroscopic guidance Indication: Metastatic urothelial carcinoma, routine catheter exchange Procedure Summary: 1.) Antegrade nephrostograms via indwelling drains 2.) Exchange of bilateral percutaneous nephrostomy drain under fluoroscopic guidance Pre-procedure: Informed consent for the procedure including risks, benefits and alternatives was obtained and time-out was performed prior to the procedure. Maximum sterile barrier technique was used throughout the procedure. Sedation: None Technique: The patient was positioned prone. Beginning with the right nephrostomy drain, local anesthetic was administered. Initial nephrostogram was performed. A stiff angled glidewire was advanced through the existing catheter and navigated into the renal collecting system. Indwelling catheter was removed over the wire. A new 10 Fr nephrostomy drain was advanced over the wire. Wire access to the kidney was withdrawn and catheter position was confirmed with contrast injection. Catheter locking mechanism was secured. ??A drainage bag was attached. Attention was turned to the left nephrostomy drain, and exchange was performed in identical fashion. Medications: Viscous lidocaine topical Contrast: 10 mL intraluminal Fluoroscopy: 4.0 mGy Estimated blood loss: 5 mL Complications: No immediate Findings: 1.) Catheters bilaterally retracted from right and left renal pelves into calyces. ??Resistance to passage of amplatz at coiled end with encrustation on removal. ?? 2.) Exchange of bilateral percutaneous nephrostomy drains for new 10 F catheters, now coiled in renal pelves. Impression: ??successful bilateral perc neph exchange Plan: ??routine exchange in 10 wk I, Dr. De La Cruz, was present throughout the procedure. ?? Alin Dillard MD G IR ORDERABLES documented in this encounter Visit Diagnoses Diagnosis Obstructive uropathy Urinary obstruction, unspecified Metastatic urothelial carcinoma Secondary malignant neoplasm of other urinary organs Obstructive uropathy Urinary obstruction, unspecified documented in this encounter Administered Medications Inactive Administered Medications - up to 3 most recent administrations Medication Order MAR Action Action Date Dose Rate Site iohexoL (Omnipaque) (350 mg/mL) solution 50 mL 50 mL, Other, ONCE PRN, Starting on 10/18/22 at 1416, Until 10/19/22 at 0434, Per Protocol, Warning Vesicant/Irritant Medication , Routine Given 10/18/2022 2:16 PM EDT 20 mLs documented in this encounter Care Teams Coordinator Of Rehabilitation Services Relationship Specialty Start Date End Date Tavai Ramirez, ALESSANDRO [address] [place] [address] PCP - General Family Medicine 06/11/22 documented as of this encounter
--- OUTSIDE RECORDS SUMMARY | 2023-11-21 15:57 | XMS_ITS | Encounter Summary ---
Author Organization [facility] Address [facility] [place] [address] Care Team Providers Care Hydrodynamicist Name Role Phone James Tavia Foster APRN Primary Care Provider [phone] Encounter Details Date Type Department Care Team (Latest Contact Info) Description 10/11/2022 Travel Social History Tobacco Use Types Packs/Day [...] PM EDT Office Visit Hematology/Oncology at [address] [address] [facility] [address] [place] [address] documented as of this encounter Visit Diagnoses Not on filedocumented in this encounter Care Teams Hydrodynamicist Relationship Specialty Start Date End Date Tavia Ramirez [place] [place] [address] PCP - General Family Medicine 06/11/22 documented as of this encounter
--- OUTSIDE RECORDS SUMMARY | 2023-11-21 15:57 | XMS_ITS | Encounter Summary ---
Author Organization [facility] Address [facility] [place] [address] Care Team Providers Care Online Publisher Name Role Phone James Tavia Foster APRN Primary Care Provider [phone] Encounter Details Date Type Department Care Team (Latest Contact Info) Description 08/07/2022 Travel Social History Tobacco Use Types Packs/Day [...] PM EDT Office Visit Hematology/Oncology at [address] [address] Chase Mckay MD [facility] [address] [place] [address] documented as of this encounter Visit Diagnoses Not on filedocumented in this encounter Care Teams Online Publisher Relationship Specialty Start Date End Date Tavia Ramirez [place] [place] [address] PCP - General Family Medicine 06/11/22 documented as of this encounter
--- OUTSIDE RECORDS SUMMARY | 2023-11-21 15:57 | XMS_ITS | Encounter Summary ---
Author Organization [facility] [place] [address] Care Team Providers Care Assistant To The Ceo Name Role Phone Tavia Ramirez APRN Primary Care Provider [phone] Reason for Visit * Reason Comments Chemotherapy Cycle 28, Day 1 - Pe mbrolizumab * Treatment/Therapy Plan Authorization (Routine) - Closed Specialty Diagnoses / Procedures Referred By Contac t Referred To Contact Hematology and Oncology Diagnoses Metastatic urothelial carcinoma Abnormal thyroid function test Procedures [id number] Jose Barnhart MD [address] [place] [address] [place] [address] Jose Lange MD [address] [place] [address] [place] [address] Referral ID Status Reason Start Date Expiration Date Visits Re quested Visits Authorized [id number] Closed 04/28/2022 06/24/2023 99 99 Encounter Details Date Type Department Care Team (Late st Contact Info) Description 12/17/2022 1:30 PM EDT Infusion Hematology Oncology at [address] [phone] Metastatic urothelial carcinoma Social History [...] Sign Reading Time Taken Comments Blood Pressure 129/56 12/17/2022 1:33 PM EDT Pulse 89 12/17/2022 1:33 PM EDT Temperature 36.4 ??C (97.6 ??F) 12/17/2022 1:33 PM ED T Respiratory Rate 18 12/17/2022 1:33 PM EDT Oxygen Saturation 93% 12/17/2022 1:33 PM EDT Inhaled Oxygen Concentration - - Weight 71.6 kg (157 lb 12.8 oz) 12/17/2022 1:33 PM EDT Height 163.8 cm (5' 4.49) 12/17/2022 1:33 PM ED T Body Mass Index 26.68 12/17/2022 1:33 PM EDT documented in this encounter Progress Notes * Maria Luz Elise, RN - 12/17/2022 1:30 PM EDT INFUSION THERAPY ADMINISTRATION NOTES DIAGNOSIS: Metastatic urothelial cancer and primary lung cancer CYCLE #: Cycle 28, Day 1 - Pembrolizumab REASON FOR VISIT: To receive planned chemotherapy. SUBJECTIVE: Barb offers no complaints. OBJECTIVE: Seen by provider. Ready to treat. LAB DATA: WBC - 11.09, H/H - 11.1/35.8, Plt Ct - 608, ANC - 6.74, Lytes wnl, BUN/Cr - 20/1.7, CA++ - 8.9, TSH/Free T4 - 1.97/0.97 IV ACCESS: Port accessed off site. Flushes readily with brisk blood return. Pre administration: Chemotherapy orders independently verified for drug name, route, and dosage per patient's height, weight and BSA by Maria Luz Elise, TORITO and Staff Pharmacist(s). REACTIONS (DESCRIPTION, TIME, [...] PM EDT Office Visit Hematology/Oncology at [address] [phone] Chase Mckay MD [facility] [address] [place] [address] documented as of this encounter Visit Diagnoses Diagnosis Metastatic urothelial carcinoma Secondary malignant neoplasm of other urinary organs documented in this encounter Administered Medications Inactive Administered Medications - up to 3 most recent administrations Medication Order MAR Action Action Date Dose Rate Site heparin (pf) (porcine) (100 units/mL) flush 5 mL syringe 500 Units 500 Units, Intravenous, ONCE PRN, Starting on Fri12/17/22 at 1400, Until Fri12/17/22 at 1756, Line Care, Refer to Intravenous (IV) Procedure: Accessing Implanted Vascular Access Devices (654) procedure and/or Intravenous (IV) Job Aid: Adult Flushing & Catheter Care (2139) job aid for additional information regarding guidelines and administration., Routine Given 12/17/2022 3:03 PM EDT 500 Units pembrolizumab (Keytruda) 200 mg in sodium chloride 0.9% 108 mL infusion 200 mg, Intravenous, ONCE, 1 dose, On Fri12/17/22 at 1530, Administer over 30 Minutes, Flush line with NS after each dose., This agent is restricted to outpatient use. Is this drug being given as an outpatient? Yes New Bag 12/17/2022 2:23 PM EDT 200 mg 216 mL/hr sodium chloride 0.9 % (flush) (BD PosiFlush Normal Saline 0.9) flush 5-20 mL 5-20 mL, Intravenous, EVERY 1 MIN PRN, Starting on Fri12/17/22 at 1400, Until Fri12/17/22 at 1756, Line Care, Flush pertains to all indwelling lines. Flush per protocol found in the job aid using the link provided on this medication record. Refer to Intravenous (IV) Job Aid: Adult Flushing & Catheter Care (3232) job aid for additional information regarding guidelines and administration., Routine Given 12/17/2022 3:03 PM EDT 20 mLs sodium chloride 0.9% infusion 100 mL/hr, Intravenous, CONTINUOUS, Starting on Fri12/17/22 at 1430, Until Fri12/17/22 at 1756 New Bag 12/17/2022 2:15 PM EDT 100 mL/hr 100 mL/hr documented in this encounter Care Teams Assistant To The Ceo Relationship Specialty Start Date End Date Tavia Ramirez APRN [facility] [place] [address] PCP - General Family Medicine 06/11/22 documented as of this encounter
--- OUTSIDE RECORDS SUMMARY | 2023-11-21 15:57 | XMS_ITS | Encounter Summary ---
Author Organization [facility] Address [facility] [place] [address] Care Team Providers Care Economic Analysis Director Name Role Phone James Tavia Foster APRN Primary Care Provider [phone] Encounter Details Date Type Department Care Team (Latest Contact Info) Description 09/27/2022 Travel Social History Tobacco Use Types Packs/Day [...] PM EDT Office Visit Hematology/Oncology at [address] [phone] Chase Mckay MD [facility] DR HEMATOLOGY [place] [address] documented as of this encounter Visit Diagnoses Not on filedocumented in this encounter Care Teams Economic Analysis Director Relationship Specialty Start Date End Date Tavia Ramirez [place] [address] [place] [address] PCP - General Family Medicine 06/11/22 documented as of this encounter
--- OUTSIDE RECORDS SUMMARY | 2023-11-21 15:57 | XMS_ITS | Encounter Summary ---
Author Organization [facility] Address [facility] [place] [address] Care Team Providers Care Wiring Inspector Name Role Phone James Tavia Foster APRN Primary Care Provider [phone] Encounter Details Date Type Department Care Team (Latest Contact Info) Description 08/28/2022 Travel Social History Tobacco Use Types Packs/Day [...] PM EDT Office Visit Hematology/Oncology at [address] [phone] Chase Mckay MD [facility] DR [place] [address] documented as of this encounter Visit Diagnoses Not on filedocumented in this encounter Care Teams Wiring Inspector Relationship Specialty Start Date End Date Tavia Ramirez [place] [place] [address] PCP - General Family Medicine 06/11/22 documented as of this encounter
--- OUTSIDE RECORDS SUMMARY | 2023-11-21 15:57 | XMS_ITS | Encounter Summary ---
Author Organization [facility] Address [facility] [place] [address] Care Team Providers Care Pipe Racker Name Role Phone James Tavia Foster APRN Primary Care Provider [phone] Encounter Details Date Type Department Care Team (Latest Contact Info) Description 10/10/2022 Travel Social History Tobacco Use Types Packs/Day [...] 3:30 PM EDT Office Visit Hematology/Oncology at [address] [address] Chase Mckay MD [facility] DR [place]AT[place] [address] documented as of this encounter Visit Diagnoses Not on filedocumented in this encounter Care Teams Pipe Racker Relationship Specialty Start Date End Date Tavia Ramirez [place] [place] [address] PCP - General Family Medicine 06/11/22 documented as of this encounter
--- OUTSIDE RECORDS SUMMARY | 2023-11-21 15:57 | XMS_ITS | Encounter Summary ---
Author Organization [facility] [place] [address] Care Team Providers Care Product Analyst Name Role Phone Tavia Ramirez ALESSANDRO Primary Care Provider [phone] Encounter Details Date Type Department Care Team (Late st Contact Info) Description 11/08/2022 Notes [place] [phone] Maria Fernanda Suarez PA [facility] [place] [address] Social History Tobacco Use Types Packs/Day Years [...] as of this encounter H&P Notes * Maria Fernanda Suarez PA - 11/08/2022 12:54 PM EDT Images from the original note were not included. Interventional Radiology Focused Pre-procedure H&P: PCP: Tavia Ramirez APRN Referring Provider: No ref. provider found Planned procedure: Bilateral nephrostomy catheter exchange Procedure indication: Bilateral hydronephrosis, urothelial carcinoma, rapid encrustation IR workflow: Procedure request received through Interventional Radiology eDH order queue. There are no answered order specific questions. History of Present Illness: Per chart review, Barb Bullard is a 72 y.o. female with PMH of metastatic urothelial carcinoma complicated by B/L hydronephrosis s/p B/L nephrostomy catheter placement inOct who presents to Interventional Radiology to undergo B/L nephrostomy catheter exchange in the setting of rapid encrustation. Patient undergoes Q10 week exchange. Last exchange on 10/18/22 for new 10 Fr catheters. Remainder of patient's medical and surgical history, allergies, medications, and social/family history obtained below as previously outlined in patient's medical record. IR History: Date/Procedure Meds given/comments 02/20/21 b/l PCN Placement [...] nephrostomy tube exchange Lido jelly, cipro 500mg Imagin10/18/22 Assessment: 72 y.o. female with B/L PCNs presenting to Interventional Radiology for B/L PCN exchange. Plan Planned procedure: Bilateral nephrostomy catheter exchange Labs to be performed day of procedure: No labs Sedation: No Sedation Prophylactic antibiotic : Cipro Contrast: Omnipaque Additional medications for procedure: Lido jelly Consent: Scanned Medications to discontinue (and days held): None Cytopathology presence needed: No Case Urgency:: G3- Elective Outpatient intervention over14 days Labs: Lab Results Component Value Date HGB 9.2 (L) 04/16/2021 HCT 30.1 (L) 04/16/2021 WBC 23.5 (H) 04/16/2021 PLATELET 873 (H) 04/16/2021 BUN 29 (H) 04/16/2021 CREATININE 1.54 (H) 07/13/2021 ALBUMIN 3.5 04/16/2021 BILITOT 0.3 04/16/2021 AST 11 04/16/2021 ALT 14 04/16/2021 ALKPHOS 85 04/16/2021 Allergies: Patient has no known allergies. Medications: [...] facility-administered medications on file prior to visit. Past Medical/Surgical history: Patient Active Problem List [...] IR Mediport Placement 04/02/2021 Yuval Sinclair PA [facility] INTERVENTION[facility] RAD IR NEPHROSTOMY TUBE EXCHANGE BILATERAL 04/24/2022 IR Nephrogram/Nephrostomy Tube Exchange Bilateral 04/24/2022 Alin Dillard MD [facility] RAD IR NEPHROSTOMY TUBE EXCHANGE BILATERAL 07/26/2022 IR Nephrogram/Nephrostomy Tube Exchange Bilateral 07/26/2022 Robe Hope PA [facility] RAD IR NEPHROSTOMY TUBE EXCHANGE BILATERAL 10/18/2022 IR Nephrogram/Nephrostomy Tube Exchange Bilateral 10/18/2022 Alexis De La Cruz MD [facility] INTERVENT[facility] RAD IR NEPHROSTOMY TUBE PLACEMENT PERCUTANEOUS BILATERAL 02/20/2021 IR Nephrostomy Tube Placement Percutaneous Bilateral [facility] RAD IR NEPHROURETERAL (NU) STENT PLACEMENT/CHECK/CHANGE 07/13/2021 IR Nephroureteral (NU) Stent Placement Check/Change 07/13/2021 Alexis De La Cruz MD [facility] INTERVENTIONLRAD IR NEPHROURETERAL (NU) STENT PLACEMENT/CHECK/CHANGE 10/23/2021 IR Nephroureteral (NU) Stent Placement Check/Change 10/23/2021 Zeferino Rosado MD [facility] INTERVENTION[facility] RAD IR NEPHROURETERAL (NU) STENT PLACEMENT/CHECK/CHANGE 01/18/2022 IR Nephroureteral (NU) Stent Placement Check/Change 01/18/2022 Guillermo Nice MD [facility] EBUS GUIDED SAMPL 3/> NODE STATION/STRUX N/A 04/04/2021 BRONCH, W ENDOBRONCHIAL ULTRASOUND (EBUS) GUIDED SAMPLING, 3+ NODES (WRVU 5.21) performed by Alonzo Cevallos MD at [facility] MAIN OR PRO BRONCHOSCOPY, DIAGNOSTIC W LAVAGE N/A 04/04/2021 BRONCHOSCOPY, RIGID OR FLEXIBLE, WITH BRONCHIAL ALVEOLAR LAVAGE (WRVU 2.88) performed by Alonzo Cevallos MD at [facility] MAIN OR Social History and Habits: Social History Tobacco Use Smoking status: Former Types: Cigarettes Quit date: 07/04/2014 Years since quittin.3 Smokeless tobacco: Never Vaping Use Vaping Use: [...] assessed in IR the day of procedure) 11/08/2022 Maria Fernanda Suarez PA-C documented in this encounter Plan of Treatment Upcoming Encounters Date Type Department Care Team (Late st Contact Info) Description 12/08/2023 3:30 PM EDT Office Visit Hematology/Oncology at [address] [phone] Chase Mckay MD [facility] HEMATOLOGY [place] [address] documented as of this encounter Visit Diagnoses Not on filedocumented in this encounter Care Teams Product Analyst Relationship Specialty Start Date End Date Tavia Ramirez APR[place] [address] PCP - General Family Medicine 06/11/22 documented as of this encounter
--- OUTSIDE RECORDS SUMMARY | 2023-11-21 15:57 | XMS_ITS | Encounter Summary ---
Author Organization [facility] Address [facility] [place] [address] Care Team Providers Care Pulp Mill Supervisor Name Role Phone James Tavia Foster APRN Primary Care Provider [phone] Encounter Details Date Type Department Care Team (Latest Contact Info) Description 11/08/2022 Travel Social History Tobacco Use Types Packs/Day [...] PM EDT Office Visit Hematology/Oncology at [address] [phone] Chase Mckay MD [facility] DR [place] [address] documented as of this encounter Visit Diagnoses Not on filedocumented in this encounter Care Teams Pulp Mill Supervisor Relationship Specialty Start Date End Date Tavia Ramirez APRN [place] [address] PCP - General Family Medicine 06/11/22 documented as of this encounter
--- OUTSIDE RECORDS SUMMARY | 2023-11-21 15:57 | XMS_ITS | Encounter Summary ---
Author Organization [facility] Address [facility] [place] [address] Care Team Providers Care Poultry Pathologist Name Role Phone James Tavia Foster APRN Primary Care Provider Encounter Details Date Type Department Care Team (Latest Contact Info) Description 12/05/2022 Travel Social History Tobacco Use Types Packs/Day [...] PM EDT Office Visit Hematology/Oncology at [address] [phone] Chase Mckay MD [facility] DR HEMATOLOGY [place] [address] documented as of this encounter Visit Diagnoses Not on filedocumented in this encounter Care Teams Poultry Pathologist Relationship Specialty Start Date End Date Tavia Ramirez [place] [address] [place] [address] PCP - General Family Medicine 06/11/22 documented as of this encounter
--- OUTSIDE RECORDS SUMMARY | 2023-11-21 15:57 | XMS_ITS | Encounter Summary ---
Author Organization [facility] Address [facility] [place] [address] Care Team Providers Care Dispensing And Measuring Optician Name Role Phone James Tavia Foster APRN Primary Care Provider [phone] Encounter Details Date Type Department Care Team (Latest Contact Info) Description 08/13/2022 Travel Social History Tobacco Use Types Packs/Day [...] 3:30 PM EDT Office Visit Hematology/Oncology at [address] [phone] Chase Mckay MD [facility] DR [place] [address] documented as of this encounter Visit Diagnoses Not on filedocumented in this encounter Care Teams Dispensing And Measuring Optician Relationship Specialty Start Date End Date Tavia Ramirez [place] [place] [address] PCP - General Family Medicine 06/11/22 documented as of this encounter
--- OUTSIDE RECORDS SUMMARY | 2023-11-21 15:57 | XMS_ITS | Encounter Summary ---
Author Organization [facility] [place] [address] Care Team Providers Care Counselor Supervisor Name Role Phone JamesTavia ALESSANDRO Primary Care Provider [phone] Encounter Details Date Type Department Care Team (Late st Contact Info) Description 11/05/2022 11:00 AM EDT Office Visit Hematology/Oncology at [address] [phone] Jose Lange MD [facility] DR [place] [address] Tea Dimas APRN [facility] [place] [address] Metastatic urothelial carcinoma; Hypothyroidism due to drugs; Tongue lesion; Primary lung adenocarcinoma, left; Anemia, unspecified type Social History Tobacco Use [...] Sign Reading Time Taken Comments Blood Pressure 129/57 11/05/2022 11:26 AM EDT Pulse 78 11/05/2022 11:26 AM EDT Temperature 36.5 ??C (97.7 ??F) 11/05/2022 11:26 AM E DT Respiratory Rate 16 11/05/2022 11:26 AM EDT Oxygen Saturation 97% 11/05/2022 11:26 AM EDT Inhaled Oxygen Concentration - - Weight 70.9 kg (156 lb 3.2 oz) 11/05/2022 11:26 AM EDT Height 163.8 cm (5' 4.49) 11/05/2022 11:26 AM E DT Body Mass Index 26.41 11/05/2022 11:26 AM EDT documented in this encounter Progress Notes * Jose Lange MD - 11/05/2022 11:00 AM EDT Images from the original note were not included. Hematology & Medical Oncology [address] [phone] Barb returns today to continue treatment for [...] distinct lung primary. She was seen by counterintelligence specialist , who recommended rigid bronchoscopy withattempts to [...] pulmonary HTN. She wasdischarged home on 05/01/21 INTERVAL HISTORY(11/05/22)- Barb returns today for followup [...] catheters 01/18/2022 UTI 09/14/2021 04/26/21-05/01/21 admission to [facility] with pneumonia, Pulmonary hypertension/CHF, BRITNI 04/16/2021 nephrostomy catheter exchange 04/04/21 bronchoscopy and tumor debulking- endobronchial biopsies positive for adenocarcinoma of lung origin Social History: No interval changes since last visit [id number] smoking history quit 6 years ago, does not drink alcohol, used to live independently, but currently moved to her daughters house. Family History: No interval changes since last visit Brother had liver cancer, mother had leukemia, maternal aunt had colon cancer in cousin had bladdercancer Allergies: No Known Allergies Medications: Your Medications Accurate as of November 05, 2022 11:46 AM. If you have any questions, ask [...] axillary nodes normal Neurologic: Normal Vitals BP 129/57 (Patient Position: Sitting) Pulse 78 Temp 36.5 ??C (97.7 ??F) (Temporal) Resp 16 Ht 163.8 cm (5' 4.49) Wt 70.9 kg (156 lb 3.2 oz) SpO2 97% BMI 26.41 kg/m?? Pathology: Molecular pathology KRAS p.G12C c.34G>T [...] The assay was performed according to the battery assembler dry cell's instructions using Anti-PD-L1 (22C3, pharmDX) antibody. Electronically signed by: Herbert Ford MD Verified: 04/11/2021 8:14 Pathologist Performed at: [place] [place], [place], [place] Surgical Pathology DIAGNOSIS A - Lung, left lower lobe mass, debulking: - Adenocarcinoma, consistent with lung primary. Electronically signed by: Sana Dowell MD Verified: 04/06/2021 11:16 Pathologist Performed at: -[facility] [place]. [place], [place], [place] DISCUSSION Sections show an invasive, predominantly [...] propria. - No muscularis propria identified. Labs: 11/05/2022 WBC 10.33, hemoglobin 11.4, platelet count [...] 200 mg IV every 3 weeks Ms. uBllard presented with bilateral hydronephrosis and acute kidney [...] of presumably metastatic urothelial carcinoma which include [place] based chemotherapy versus immunotherapy. Due to her [...] will see her back in 3 weeks. # Low back pain left side pain- She is taking Tramadol 50 mg(1/2) every 12 hours with tylenol in between if needed. She follows with Palliative Care. #Abnormal thyroid function: levothyroxine is 75 mcg daily.. Will monitor thyroid function. TSH improved- 1.14 FT4-1.00 #Renal insufficiency: Cr 1.5 today, stable, Creatinine 3.0 on admission. She has bilateral nephrostomy tubes. tube exchange was on Friday-07/26/22. # Anemia- mild- asymptomatic. Plan: 1 Proceed with C26 Pembrolizumab today as scheduled. 2. Continue levothyroxine 75 mcg a day 3. Referral to ENT at 4. 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
--- OUTSIDE RECORDS SUMMARY | 2023-11-21 15:57 | XMS_ITS | Encounter Summary ---
Author Organization [facility] Address [facility] [place] [address] Care Team Providers Care Title Specialist Name Role Phone James Tavia Foster APRN Primary Care Provider [phone] Encounter Details Date Type Department Care Team (Latest Contact Info) Description 12/11/2022 Travel Social History Tobacco Use Types Packs/Day [...] PM EDT Office Visit Hematology/Oncology at [address] [phone] Chase Mckay MD [facility] DR [place] [address] documented as of this encounter Visit Diagnoses Not on filedocumented in this encounter Care Teams Title Specialist Relationship Specialty Start Date End Date Tavia Ramirez [place] [place] [address] PCP - General Family Medicine 06/11/22 documented as of this encounter
--- OUTSIDE RECORDS SUMMARY | 2023-11-21 15:57 | XMS_ITS | Encounter Summary ---
Author Organization [facility] [place] [address] Care Team Providers Care Logistics Planning Engineer Name Role Phone James Tavia Foster APRN Primary Care Provider [phone] Encounter Details Date Type Department Care Team (Late st Contact Info) Description 11/26/2022 10:00 AM EDT Office Visit Hematology/Oncology at [address] [phone] Tea Dimas APRN [facility] [place] [address] Primary malignant neoplasm of left lower lobe [...] Sign Reading Time Taken Comments Blood Pressure 114/74 11/26/2022 9:49 AM EDT Pulse 89 11/26/2022 9:49 AM EDT Temperature 36.8 ??C (98.2 ??F) 11/26/2022 9:49 AM ED T Respiratory Rate 16 11/26/2022 9:49 AM EDT Oxygen Saturation 96% 11/26/2022 9:49 AM EDT Inhaled Oxygen Concentration - - Weight 71.8 kg (158 lb 3.2 oz) 11/26/2022 9:49 A M EDT Height 163.8 cm (5' 4.49) 11/26/2022 9:49 AM ED T Body Mass Index 26.75 11/26/2022 9:49 AM EDT documented in this encounter Patient Instructions * Patient Instructions* Tea Dimas APRN - 11/26/2022 10:00 AM EDT She will return in 3 weeks with labs prior and infusion. documented in this encounter Progress Notes * Tea Dimas APRN - 11/26/2022 10:00 AM EDT Images from the original note were not included. Hematology & Medical Oncology [address] [phone] Barb returns today to continue treatment for [...] distinct lung primary. She was seen by rock mason apprentice , who recommended rigid bronchoscopy withattempts to [...] She wasdischarged home on 05/01/21 Interval history 11/26/22 Barb returns today for [...] catheters 01/18/2022 UTI 09/14/2021 04/26/21-05/01/21 admission to [facility] with pneumonia, Pulmonary hypertension/CHF, BRITNI 04/16/2021 nephrostomy catheter exchange 04/04/21 bronchoscopy and tumor debulking- endobronchial biopsies positive for adenocarcinoma of lung origin Social History: No interval changes since last visit [id number]-[id number] smoking history quit 6 years ago, does not drink alcohol, used to live independently, but currently moved to her daughters house. Family History: No interval changes since last visit Brother had liver cancer, mother had leukemia, maternal aunt had colon cancer in cousin had bladdercancer Allergies: No Known Allergies Medications: Your Medications Accurate as of November 26, 2022 10:11 AM. If you have any questions, ask [...] axillary nodes normal Neurologic: Normal Vitals BP 114/74 (Patient Position: Sitting) Pulse 89 Temp 36.8 ??C (98.2 ??F) (Temporal) Resp 16 Ht 163.8 cm (5' 4.49) Wt 71.8 kg (158 lb 3.2 oz) SpO2 96% BMI 26.75 kg/m?? Pathology: Molecular pathology KRAS p.G12C c.34G>T [...] The assay was performed according to the health education specialist's instructions using Anti-PD-L1 (22C3, pharmDX) antibody. Electronically signed by: Herbert Ford MD Verified: 04/11/2021 8:14 Pathologist Performed at: [place] [place], [place], [place] Surgical Pathology DIAGNOSIS A - Lung, left lower lobe mass, debulking: - Adenocarcinoma, consistent with lung primary. Electronically signed by: Sana Dowell MD Verified: 04/06/2021 11:16 Pathologist Performed at: [place] [place], [place], [place] DISCUSSION Sections show an invasive, predominantly [...] propria. - No muscularis propria identified. Labs: 11/26/22 WBC 11.33 H/H 11.5/37.0 Plts 519 [...] of presumably metastatic urothelial carcinoma which include [place] based chemotherapy versus immunotherapy. Due to [...] future. She is comfortable with this plan. # [...] Anemia- mild- asymptomatic. Plan: 1 Proceed with C27 Pembrolizumab today as scheduled. 2. Continue levothyroxine [...] PM EDT Office Visit Hematology/Oncology at [address] [phone] Chase Mckay MD [facility] DR HEMATOLOGY [place] [address] documented as of this encounter Visit Diagnoses Diagnosis 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 Malignant neoplasm of lower lobe, bronchus, or lung Metastatic urothelial carcinoma Secondary malignant neoplasm of other urinary organs documented in this encounter Care Teams Logistics Planning Engineer Relationship Specialty Start Date End Date Tavia Ramirez APRN [address] [place] [address] PCP - General Family Medicine 06/11/22 documented as of this encounter
--- OUTSIDE RECORDS SUMMARY | 2023-11-21 15:57 | XMS_ITS | Encounter Summary ---
Author Organization [facility] [place] [address] Care Team Providers Care Mold Cleaner Name Role Phone Tavia Ramirez APRN Primary Care Provider [phone] Reason for Visit * Reason Comments Chemotherapy Cycle 26, Day 1 - Pe mbrolizumab * Treatment/Therapy Plan Authorization (Routine) - Closed Specialty Diagnoses / Procedures Referred By Contac t Referred To Contact Hematology and Oncology Diagnoses Metastatic urothelial carcinoma Abnormal thyroid function test Procedures [id number] Jose Barnhart MD [address] [place] [address] [place] [address] Jose Lange MD [address] [place] [address] DR [place] [address] Referral ID Status Reason Start Date Expiration Date Visits Re quested Visits Authorized [id number] Closed 04/28/2022 06/24/2023 99 99 Encounter Details Date Type Department Care Team (Late st Contact Info) Description 11/05/2022 11:30 AM EDT Infusion Hematology Oncology at [address] [address] Metastatic urothelial carcinoma Social History [...] as of this encounter Progress Notes * Maria Luz Elise, RN - 11/05/2022 11:30 AM EDT INFUSION THERAPY ADMINISTRATION NOTES DIAGNOSIS: Metastatic urothelial cancer and primary lung cancer CYCLE #: Cycle 26, Day 1 - Pembrolizumab REASON FOR VISIT: To receive planned chemotherapy. SUBJECTIVE: Barb offers no complaints. OBJECTIVE: Seen by provider. Ready to treat. LAB DATA: WBC - 10.33, H/H - 11.4/36.6, Plt Ct - 565, ANC - 6.43, Lytes wnl, BUN/Cr - 17/1.6, CA++ - 8.6, TSH/Free T4 - 2.44/0.88 IV ACCESS: Port accessed off site. Flushes readily with brisk blood return. Pre administration: Chemotherapy orders independently verified for drug name, route, and dosage per patient's height, weight and BSA by Maria Luz C Arik, RN and Staff Pharmacist(s). REACTIONS (DESCRIPTION, TIME, [...] 3:30 PM EDT Office Visit Hematology/Oncology at [address] [address] Chase Mckay MD [facility] DR [place]EMATOLOG[place] [address] documented as of this encounter Visit Diagnoses Diagnosis Metastatic urothelial carcinoma Secondary malignant neoplasm of other urinary organs documented in this encounter Administered Medications Inactive Administered Medications - up to 3 most recent administrations Medication Order MAR Action Action Date Dose Rate Site heparin (pf) (porcine) (100 units/mL) flush 5 mL syringe 500 Units 500 Units, Intravenous, ONCE PRN, Starting on Fri11/05/22 at 1214, Until Fri11/05/22 at 1823, Line Care, Refer to Intravenous (IV) Procedure: Accessing Implanted Vascular Access Devices (334) procedure and/or Intravenous (IV) Job Aid: Adult Flushing & Catheter Care (3713) job aid for additional information regarding guidelines and administration., Routine Given 11/05/2022 1:50 PM EDT 500 Units pembrolizumab (Keytruda) 200 mg in sodium chloride 0.9% 108 mL infusion 200 mg, Intravenous, ONCE, 1 dose, On Fri11/05/22 at 1330, Administer over 30 Minutes, Flush line with NS after each dose., This agent is restricted to outpatient use. Is this drug being given as an outpatient? Yes New Bag 11/05/2022 1:16 PM EDT 200 mg 216 mL/hr sodium chloride 0.9 % (flush) (BD PosiFlush Normal Saline 0.9) flush 5-20 mL 5-20 mL, Intravenous, EVERY 1 MIN PRN, Starting on Fri11/05/22 at 1214, Until Fri11/05/22 at 1823, Line Care, Flush pertains to all indwelling lines. Flush per protocol found in the job aid using the link provided on this medication record. Refer to Intravenous (IV) Job Aid: Adult Flushing & Catheter Care (6459) job aid for additional information regarding guidelines and administration., Routine Given 11/05/2022 1:49 PM EDT 20 mLs sodium chloride 0.9% infusion 100 mL/hr, Intravenous, CONTINUOUS, Starting on Fri11/05/22 at 1230, Until Fri11/05/22 at 1823 New Bag 11/05/2022 12:15 PM EDT 100 mL/hr 100 mL/hr documented in this encounter Care Teams Mold Cleaner Relationship Specialty Start Date End Date Tavia Ramirez APRN [address] [place] [address] PCP - General Family Medicine 06/11/22 documented as of this encounter
--- OUTSIDE RECORDS SUMMARY | 2023-11-21 15:57 | XMS_ITS | Encounter Summary ---
Author Organization [facility] Address [facility] [place] [address] Care Team Providers Care Campground Hand Name Role Phone James Tavia Foster APRN Primary Care Provider [phone] Encounter Details Date Type Department Care Team (Latest Contact Info) Description 10/02/2022 Travel Social History Tobacco Use Types Packs/Day [...] 3:30 PM EDT Office Visit Hematology/Oncology at [address] [address] Chase Mckay MD [facility] DR HEMATOLOGY [place] [address] documented as of this encounter Visit Diagnoses Not on filedocumented in this encounter Care Teams Campground Hand Relationship Specialty Start Date End Date Tavia Ramirez [place] [place] [address] PCP - General Family Medicine 06/11/22 documented as of this encounter
--- OUTSIDE RECORDS SUMMARY | 2023-11-21 15:57 | XMS_ITS | Encounter Summary ---
Author Organization [facility] Address [facility] [place] [address] Care Team Providers Care Maltster Name Role Phone James Tavia Foster APRN Primary Care Provider [phone] Encounter Details Date Type Department Care Team (Latest Contact Info) Description 11/20/2022 Travel Social History Tobacco Use Types Packs/Day [...] PM EDT Office Visit Hematology/Oncology at [address] [address] Chase Mckay MD [facility] [address] [place] [address] documented as of this encounter Visit Diagnoses Not on filedocumented in this encounter Care Teams Maltster Relationship Specialty Start Date End Date Tavia Ramirez APRN [place] [place] [address] PCP - General Family Medicine 06/11/22 documented as of this encounter
--- OUTSIDE RECORDS SUMMARY | 2023-11-21 15:57 | XMS_ITS | Encounter Summary ---
Author Organization [facility] Address [facility] [place] [address] Care Team Providers Care Top Frame Maker Name Role Phone James Tavia Foster APRN Primary Care Provider [phone] Encounter Details Date Type Department Care Team (Latest Contact Info) Description 10/18/2022 Travel Social History Tobacco Use Types Packs/Day [...] PM EDT Office Visit Hematology/Oncology at [address] [address] Chase Mckay MD [facility] DR [place] [address] documented as of this encounter Visit Diagnoses Not on filedocumented in this encounter Care Teams Top Frame Maker Relationship Specialty Start Date End Date Tavia Ramirez [place] [address] [place] [address] PCP - General Family Medicine 06/11/22 documented as of this encounter
--- OUTSIDE RECORDS SUMMARY | 2023-11-21 15:57 | XMS_ITS | Encounter Summary ---
Author Organization [facility] Address [facility] [place] [address] Care Team Providers Care Partition Making Machine Operator Name Role Phone JamesTavia ALESSANDRO Primary Care Provider [phone] Encounter Details Date Type Department Care Team (Late st Contact Info) Description 09/03/2022 1:30 PM EDT Office Visit Hematology/Oncology at [address] [phone] Jose Lange MD [facility] DR HEMATOLOGY [place] [address] Abena Ogden, RN Metastatic urothelial carcinoma; Primary lung adenocarcinoma, left; Tongue lesion; Anemia, unspecified type Social History Tobacco Use [...] Sign Reading Time Taken Comments Blood Pressure 143/72 09/03/2022 1:25 PM EDT Pulse 92 09/03/2022 1:25 PM EDT Temperature 36.3 ??C (97.3 ??F) 09/03/2022 1:25 PM ED T Respiratory Rate 16 09/03/2022 1:25 PM EDT Oxygen Saturation 100% 09/03/2022 1:25 PM EDT Inhaled Oxygen Concentration - - Weight 70.7 kg (155 lb 12.8 oz) 09/03/2022 1:25 PM EDT Height 163.8 cm (5' 4.49) 09/03/2022 1:25 PM ED T Body Mass Index 26.34 09/03/2022 1:25 PM EDT documented in this encounter Progress Notes * Abena Ogden, NICKEL OPERATOR - 09/03/2022 1:30 PM EDT Images from the original note were not included. Hematology & Medical Oncology [address] [address] Barb returns today to continue [...] distinct lung primary. She was seen by grocery associate , who recommended rigid bronchoscopy withattempts to [...] HTN. She wasdischarged home on 05/01/21 INTERVAL HISTORY(09/03/22)- Barb returns today for followup of her bladder/lung cancer and C24 of pembrolizumab. Overall feeling well today. She has been out doing some gardening and her energy level is good. She had her right nephrostomy tube replaced the end of June. Both nephrostomy tubes are draining well now. Urine is clear yellow with mucus. She has not had any discomfort around the tubes or hematuria. Bowel movements are regular. No nausea or vomiting. She does have itching after her infusions relieved by cortisone cream. No shortness of breath, chest pain or edema. Denies any changes in her breathing. No hemoptysis. No cough. Denies any recent fevers or chills. No headaches, dizziness or lightheadedness. Appetite is good but she admits she probably doesn't eat very healthy foods. She has not heard from the ENT doctor. She does feel like something is in her throat but denies any difficulty swallowing. She does produce a lot of phlegm at times. Remainder of ROS otherwise negative. PMH: No interval changes since last visit COVID- 06/12/22 UTI- 06/12/22 UTI 02/12/2022 Bilateral over the wire conversion of nephro-ureteral stent to 10 Fr nephrostomy catheters 01/18/2022 UTI 09/14/2021 04/26/21-05/01/21 admission to [facility] with pneumonia, Pulmonary hypertension/CHF, BRITNI 04/16/2021 nephrostomy catheter exchange 04/04/21 bronchoscopy and tumor debulking- endobronchial biopsies positive for adenocarcinoma of lung origin Social History: No interval changes since last visit [id number] smoking history quit 6 years ago, does not drink alcohol, used to live independently, but currently moved to her daughters house. Family History: No interval changes since last visit Brother had liver cancer, mother had leukemia, maternal aunt had colon cancer in cousin had bladdercancer Allergies: No Known Allergies Medications: Your Medications Accurate as of September 03, 2022 2:19 PM. If you have any questions, ask your nurse or doctor. Continued medications, unchanged Dose Details acetaminophen 500 mg tablet Commonly known as: Tylenol Take 1,000 mg by mouth every 8 hours as needed for Pain. 1,000 mg Refills: 0 ciprofloxacin 500 mg tablet Commonly known as: Cipro Take 500 mg by mouth 2 times daily. 500 mg Refills: 0 levothyroxine 75 mcg tablet [...] atraumatic, no cyanosis or edema Pulses: Skin: Skin color, texture, turgor normal, no rashes or lesions Lymph nodes: Cervical, supraclavicular, and axillary nodes normal Neurologic: Normal Vitals BP 143/72 (Patient Position: Sitting) Pulse 92 Temp 36.3 ??C (97.3 ??F) (Temporal) Resp 16 Ht 163.8 cm (5' 4.49) Wt 70.7 kg (155 lb 12.8 oz) SpO2 100% BMI 26.34 kg/m?? Pathology: Molecular pathology KRAS p.G12C c.34G>T A [id number] VAF % 35.7 May benefit from -- Sotorasib in Non-small cell lung cancer 04/04/21 ADDENDUM DISCUSSION PD-L1 Immunohistochemistry Study Tissue: ??Lung, left lower lobe mass Diagnosis: Adenocarcinoma, consistent with lung primary Tumor Proportion Score (TPS): ?? 90% Interpretation Table: PD-L1 assay (22C3 pharmDX) for Keytruda Tumor Proportion Score (TPS): ?<1% ?PD-L1 Negative ?>=1% ? PD-L1 Expression ?>=50% ?PD-L1 High Expression Immunohistochemical assay was performed on paraffin-embedded tissue sections fixed ??in 10% neutral buffered formalin for 6-72 hours using the polymer system technique ??with appropriate controls. The assay was performed according to the nickel operator's ??instructions using Anti-PD-L1 (22C3, pharmDX) antibody. Electronically signed by: ?Herbert Ford MD Verified: ??04/11/2021 8:14 ?? Pathologist Performed at: ??-[facility], [place], [place] ? Surgical Pathology DIAGNOSIS A - Lung, ??left lower lobe mass, debulking: ?? - Adenocarcinoma, consistent with lung primary. Electronically signed by: ?Sana Dowell MD Verified: ??04/06/2021 11:16 ??Pathologist Performed at: ??-[facility] Dept. of Pathology, [place], [place] DISCUSSION Sections show an invasive, predominantly solid-patterned adenocarcinoma with ??prominent associated acute inflammation including microabscesses. The clinical ??context of newly diagnosed bladder carcinoma in addition to the presence of ??an obstructing left lower lobe lung mass is noted. While slides from the ??patient's bladder carcinoma are not currently available for review, the reported ??immunophenotype (GATA3-positive) is distinct from that seen in the current specimen. ??Overall features in the current specimen are consistent with a lung primary ??adenocarcinoma. 02/19/2021 A. URINARY BLADDER, BIOPSY: - Invasive carcinoma, favor urothelial carcinoma, high-grade, with necrosis. See comment. - Tumor invades at least subepithelial lamina propria. - No muscularis propria identified. Labs: 09/03/22- WBC-10.84 Hgb/hct-11.7/37.5 MCV-82 Plt-602 ANC-6.70 Na-142 [...] albumin 3.3, TSH 7.48, free T4 0.77 Imagin06/12/22- PET scan: IMPRESSION 1. There is a [...] consistent with the history of skin rash. ?? 03/08/2022 PET scan: ?? IMPRESSION 1. Unchanged FDG avid left lower [...] process. 07/13/2021 CT chest abdomen pelvis IMPRESSION ?? 1. Grossly stable LEFT lower lobe lung mass with LEFT pleural effusion 2. Resolution of previously noted patchy consolidation RIGHT lower lobe. 3. Borderline mediastinal and hilar adenopathy. 4. Exam otherwise stable ?? 05/02/2020 chest x-ray: Impression: Moderate left pleural [...] of presumably metastatic urothelial carcinoma which include emmonak based chemotherapy versus immunotherapy. Due to her [...] of tongue abnormality on the PET scan. 09/03/22- Barb is tolerating the Pembrolizumab well. She is here today for C 24. She will have restaging scan on October 04. She has not heard on ENT referral. We will check on this today. Labs and toxicities assessed today and are acceptable to continue treatment. She is stable. # Low back pain left side pain- [...] Anemia- mild- asymptomatic. Plan: 1 Proceed with C24 Pembrolizumab today as scheduled. 2. Continue levothyroxine 75 mcg a day 3. Referral to ENT- we are checking on this today. 4. Next visit with CBC, CMP, TSH, free T4 and restaging scans on 10/08/22. 5. PET scan scheduled for September. Barb voiced understanding of the plan and [...] PM EDT Office Visit Hematology/Oncology at [address] [phone] Chase Mckay MD [facility] DR H[place]ATOLOG[place] [address] documented as of this encounter Visit Diagnoses Diagnosis Metastatic urothelial carcinoma Secondary malignant neoplasm of other urinary organs Primary lung adenocarcinoma, left Tongue lesion Other specified conditions of the tongue Anemia, unspecified type documented in this encounter Care Teams Partition Making Machine Operator Relationship Specialty Start Date End Date Tavia Ramirez APRN [facility] [place] [place] [address] PCP - General Family Medicine 06/11/22 documented as of this encounter
--- OUTSIDE RECORDS SUMMARY | 2023-11-21 15:57 | XMS_ITS | Encounter Summary ---
Author Organization [facility] Jose [place] [address] Care Team Providers Care Foundation Engineer Name Role Phone James Tavia Foster APRN Primary Care Provider [phone] Encounter Details Date Type Department Care Team (Late st Contact Info) Description 12/16/2022 Orders Only Hematology [place] [address] Tea Dimas APRN [facility] [place] [address] Social History Tobacco Use Types Packs/Day Years [...] 3:30 PM EDT Office Visit Hematology/Oncology at [address] [address] Chase Mckay MD [facility] DR [place] [address] documented as of this encounter Visit Diagnoses Not on filedocumented in this encounter Care Teams Foundation Engineer Relationship Specialty Start Date End Date Tavia Ramirez APRN [address] [place] [address] PCP - General Family Medicine 06/11/22 documented as of this encounter
--- OUTSIDE RECORDS SUMMARY | 2023-11-21 15:57 | XMS_ITS | Encounter Summary ---
[place] [address] Care Team Providers Care Manager Pricing Name Role Phone Tavia Ramirez APRN Primary Care Provider [phone] Reason for Referral * Diagnostic Test (Routine) - Closed Specialty Diagnoses / Procedures Referred By Contac t Referred To Contact Radiology Diagnoses Obstructive uropathy Procedures IR Nephrogram/Nephrostomy Tube Exchange Bilateral Alexis De La Cruz MD [facility] [place] [address] [facility] [place] [address] Referral ID Status Reason Start Date Expiration Date V isits Requested Visits Authorized [id number] Closed Specialty Service Requested 10/18/2022 04/19/2024 1 1 Reason for Visit * Diagnostic Test (Routine) - Closed Specialty Diagnoses / Procedures Referred By Contac t Referred To Contact Radiology Diagnoses Obstructive uropathy Procedures IR Nephrogram/Nephrostomy Tube Exchange Bilateral Alexis De La Cruz MD [facility] [place] [address] [facility] [place] [address] Referral ID Status Reason Start Date Expiration Date V isits Requested Visits Authorized [id number] Closed Specialty Service Requested 10/18/2022 04/19/2024 1 1 Encounter Details Date Type Department Care Team (Latest Contact Info) Description 12/11/2022 12:23 PM EDT - 12/11/2022 11:59 PM EDT Hospital Encounter Radiology at [facility] [place] [address] Alexis De La Cruz MD [facility] DR [place]ST[place] [address] Obstructive uropathy Discharge Disposition: Home Social History [...] Sign Reading Time Taken Comments Blood Pressure 145/90 12/11/2022 2:00 PM EDT Pulse 70 12/11/2022 1:17 PM EDT Temperature 37.2 ??C (99 ??F) 12/11/2022 2:00 PM EDT Respiratory Rate 16 12/11/2022 2:00 PM EDT Oxygen Saturation 99% 12/11/2022 2:00 PM EDT Inhaled Oxygen Concentration - - Weight - - Height - - Body Mass Index - - documented in this encounter Discharge Instructions * Discharge Instructions* Mariana Chandra RN - 12/11/2022 1:39 PM EDT Images from the original note were not included. [facility] V[facility] and Interventional Radiology Discharge Instructions for [...] connecting tubing from the drain. Put a red leader on both the drain and the bag. [...] is during regular office hours, please call [phone]. If it is after regular office hours, or on weekends or holidays, please call [phone] and ask to speak to the Home Teaching Grades 9 Thru 12 Teacher boilermaker assembly and erection for Interventional Radiology. You may resume your regular diet as tolerated. Revised 02/11/19 documented in this encounter Medications [...] as of this encounter Progress Notes * Mariana Chandra RN - 12/11/2022 1:50 PM EDT ANGIO NURSING DATABASE Name: Barb Bullard Date of : 1950 AGE: 72 y.o. Address: [address] [facility] [address] (home) Mobile: Telephone Information: Referring Provider: Alexis De La Cruz REASON FOR VISIT: Order Questions Answers Where will study be performed? [facility] Radiology [120] Reason for exam and clinical history: bilat perc neph Exam/Procedure requested: routine exchange 10 wk (due to encrustation) Is the patient on anticoagulant / antiplatelet therapy ? No Does patient require sedation? None Planned procedure: Bilateral nephrostomy catheter exchange Labs [...] PCN exchange Lido jelly, Ciprofloxacin 500mg PO 1329 to procedure room 3 via stretcher. Onto table prone. Safety strap [...] PM EDT Office Visit Hematology/Oncology at [address] [address] Chase Mckay MD [facility] DR HEMATOLOGY [place] [address] documented as of this encounter Procedures Procedure Name Priority Date/Time Associated Diagnosis Comments IR NEPHROGRAM/NEPHROST CAYLA TUBE EXCHANGE BILATERAL Routine 12/11/2022 1:57 PM EDT Obstructive uropathy documented in this [...] UPJs. ?? Alexis De La Cruz MD IMG IR ORDERABLES documented in this encounter Visit Diagnoses Diagnosis Obstructive uropathy Urinary obstruction, unspecified documented in this encounter Administered Medications Inactive Administered Medications - up to 3 most recent administrations Medication Order MAR Action Action Date Dose Rate Site ciprofloxacin (Cipro) tablet 500 mg 500 mg, Oral, ONCE, 1 dose, On Fri12/11/22 at 1315, Angio/IR (Day of Procedure), Routine, Indication for (Active or Suspected): Prophylaxis Given 12/11/2022 12:55 PM EDT 500 mg iohexoL (Omnipaque) (350 mg/mL) solution 1-400 mL 1-400 mL, Other, ONCE, 1 dose, On Fri12/11/22 at 1315, For intra-procedural use by proceduralist., Angio/IR (Intra-Procedure), Routine Given 12/11/2022 1:15 PM EDT 12 mLs lidocaine (Glydo) 2 % gel 6 mL 6 mL, Topical (Top), EVERY 4 HOURS PRN, Starting on Fri12/11/22 at 1248, Until Fri12/11/22 at 1418, Pain, For use in Interventional Radiology (IR) only for procedure with direct provider supervision and verbal order., Angio/IR (Intra-Procedure), Routine Given 12/11/2022 12:59 PM EDT 6 mLs documented in this encounter Care Teams Manager Pricing Relationship Specialty Start Date End Date Tavia Ramirez, SUPERVISOR RECORDS CHANGE [address] [place] [address] PCP - General Family Medicine 06/11/22 documented as of this encounter
--- OUTSIDE RECORDS SUMMARY | 2023-11-21 15:57 | XMS_ITS | Encounter Summary ---
Author Organization [facility] Address [facility] [place] [address] Care Team Providers Care Insurance Case Manager Name Role Phone James Tavia Foster APRN Primary Care Provider [phone] Encounter Details Date Type Department Care Team (Latest Contact Info) Description 07/26/2022 Travel Social History Tobacco Use Types Packs/Day [...] PM EDT Office Visit Hematology/Oncology at [address] [address] Chase Mckay MD [facility] DR [place] [address] documented as of this encounter Visit Diagnoses Not on filedocumented in this encounter Care Teams Insurance Case Manager Relationship Specialty Start Date End Date Tavia Ramirez APRN [place] [address] PCP - General Family Medicine 06/11/22 documented as of this encounter
--- OUTSIDE RECORDS SUMMARY | 2023-11-21 15:57 | XMS_ITS | Encounter Summary ---
Author Organization [facility] Address [place] [address] Care Team Providers Care Bsa Officer Name Role Phone James Tavia Foster APRN Primary Care Provider [phone] Encounter Details Date Type Department Care Team (Latest Contact Info) Description 11/26/2022 Travel Social History Tobacco Use Types Packs/Day [...] PM EDT Office Visit Hematology/Oncology at [address] [address] Chase Mckay MD [facility] DR [place] [address] documented as of this encounter Visit Diagnoses Not on filedocumented in this encounter Care Teams Bsa Officer Relationship Specialty Start Date End Date Tavia Ramirez [place] [address] PCP - General Family Medicine 06/11/22 documented as of this encounter
--- OUTSIDE RECORDS SUMMARY | 2023-11-21 15:57 | XMS_ITS | Encounter Summary ---
Author Organization [facility] [place] [address] Care Team Providers Care Conservation Coordinator Name Role Phone JamesTavia Cristian FRANCOIS Primary Care Provider [phone] Reason for Visit * Diagnostic Test (Routine) - Closed Specialty Diagnoses / Procedures Referred By Contac t Referred To Contact Radiology Diagnoses Metastatic urothelial carcinoma Primary lung adenocarcinoma, left Procedures NM PET CT Skull Base to Mid-thigh Jose Lange MD [facility] [place] [address] [place] [address] Referral ID Status Reason Start Date Expiration Date V isits Requested Visits Authorized [id number] Closed Specialty Service Requested 08/13/2022 02/13/2024 1 1 Encounter Details Date Type Department Care Team (Latest Contact Info) Description 10/10/2022 2:19 PM EDT - 10/10/2022 11:59 PM EDT Hospital Encounter [place] [address] [facility] [address] [place] [address] Discharge Disposition: Home Social History [...] PM EDT Office Visit Hematology/Oncology at [address] [phone] [facility] [place] [address] documented as of this encounter Procedures Procedure Name Priority Date/Time Associated Diagnosis Comments NM PET CT SKULL BASE TO MID-THIGH ([facility]) Routine 10/10/2022 4:00 PM EDT Metastatic urothelial carcinoma Primary lung adenocarcinoma, left POCT GLUCOSE Routine 10/10/2022 2:28 PM EDT documented in this encounter Results * POCT Glucose (10/10/2022 2:28 PM EDT) POC Glucose 90 65 - 199 mg/dL [facility] Comment: Supplemental ranges: <140 mg/dL before meals <180 mg/dL all other times of the day Blood 10/10/2022 2:28 PM EDT 10/10/2022 2:28 PM EDT Jose Lange MD POINT OF CARE TEST O RDERABLES [facility] [place] [address] documented in this encounter Visit Diagnoses Not on filedocumented in this encounter Care Teams Conservation Coordinator Relationship Specialty Start Date End Date Tavia Ramirez [place] [address] [place] [address] PCP - General Family Medicine 06/11/22 documented as of this encounter
--- OUTSIDE RECORDS SUMMARY | 2023-11-21 15:57 | XMS_ITS | Encounter Summary ---
[place] [address] Care Team Providers Care Transformer Builder Name Role Phone Tavia Ramirez ALESSANDRO Primary Care Provider [phone] Reason for Referral * Diagnostic Test (Routine) - Closed Specialty Diagnoses / Procedures Referred By Contac t Referred To Contact Radiology Diagnoses Metastatic urothelial carcinoma Primary lung adenocarcinoma, left Procedures NM PET CT Skull Base to Mid-thigh Jose Rhoades MD [facility] DR H[place]ATOLOG[place] [address] [place] [address] Referral ID Status Reason Start Date Expiration Date V isits Requested Visits Authorized [id number] Closed Specialty Service Requested 08/13/2022 02/13/2024 1 1 * Consultation (Routine) - Closed Specialty Diagnoses / Procedures Referred By Contac t Referred To Contact Diagnoses Tongue lesion Metastatic urothelial carcinoma Primary lung adenocarcinoma, left Jose Rhoades MD [facility] [place]OLOG[place] [address] Referral ID Status Reason Start Date Expiration Date V isits Requested Visits Authorized [id number] Closed Consult, Test & Treat 08/13/2022 02/09/2023 1 1 Encounter Details Date Type Department Care Team (Late st Contact Info) Description 08/13/2022 1:30 PM EDT Office Visit Hematology/Oncology at [address] [phone] Jose Rhoades MD [facility] HEMATOLOGY [place] [address] Abena Ogden RN Tongue lesion (Primary Dx); Metastatic urothelial carcinoma; Primary lung adenocarcinoma, left; Abnormal thyroid function test Social History Tobacco Use Types Packs/Day Years [...] Sign Reading Time Taken Comments Blood Pressure 141/65 08/13/2022 1:54 PM EDT Pulse 75 08/13/2022 1:54 PM EDT Temperature 36.4 ??C (97.5 ??F) 08/13/2022 1:54 PM ED T Respiratory Rate 16 08/13/2022 1:54 PM EDT Oxygen Saturation 96% 08/13/2022 1:54 PM EDT Inhaled Oxygen Concentration - - Weight 69.8 kg (153 lb 12.8 oz) 08/13/2022 1:54 PM EDT Height 163.8 cm (5' 4.49) 08/13/2022 1:54 PM ED T Body Mass Index 26 08/13/2022 1:54 PM EDT documented in this encounter Progress Notes * Jose Rhoades MD - 08/13/2022 1:30 PM EDT Images from the original note were not included. Hematology & [place] [id number] Barb returns today to continue treatment for [...] distinct lung primary. She was seen by lineworker , who recommended rigid bronchoscopy withattempts to [...] HTN. She wasdischarged home on 05/01/21 INTERVAL HISTORY(08/13/22)- Barb returns today for followup of her bladder/lung cancer and next dose of pembrolizumab. Overall feeling well today. She cad her right nephrostomy tube replaced the end of June. Both nephrostomy tubes are draining well now. Urine is clear yellow with mucus. Bowel movements are regular. No nausea or vomiting. She has a rash and skin dryness on forearms and upper back, chest and face. She does have itching after her infusions relieved by cortisone cream. No shortness of breath, chest pain or edema. Denies any changes in her breathing. No hemoptysis. Denies any recent fevers or chills. No other focal complaints today. PMH: No interval changes since last visit COVID- 06/12/22 UTI- 06/12/22 UTI 02/12/2022 Bilateral over the wire conversion of nephro-ureteral stent to 10 Fr nephrostomy catheters 01/18/2022 UTI 09/14/2021 04/26/21-05/01/21 admission to [facility] with pneumonia, Pulmonary hypertension/CHF, BRITNI 04/16/2021 nephrostomy catheter exchange 04/04/21 bronchoscopy and tumor debulking- endobronchial biopsies positive for adenocarcinoma of lung origin Social History: No interval changes since last visit [id number] smoking history quit 6 years ago, does not drink alcohol, used to live independently, but currently moved to her daughters house. Family History: No interval changes since last visit Brother had liver cancer, mother had leukemia, maternal aunt had colon cancer in cousin had bladdercancer Allergies: No Known Allergies Medications: Your Medications Accurate as of August 13, 2022 2:11 PM. If you have any questions, ask [...] both eyes Ears: Nose: Throat: No mucositis. No fullness on tongue palpation. No mass noted. Unable to palpate [...] axillary nodes normal Neurologic: Normal Vitals BP 141/65 (Patient Position: Sitting) Pulse 75 Temp 36.4 ??C (97.5 ??F) (Temporal) Resp 16 Ht 163.8 cm (5' 4.49) Wt 69.8 kg (153 lb 12.8 oz) SpO2 96% BMI 26.00 kg/m?? Pathology: Molecular pathology KRAS p.G12C c.34G>T [...] The assay was performed according to the maintenance repairman's ??instructions using Anti-PD-L1 (22C3, pharmDX) antibody. Electronically signed by: ?Herbert Ford MD Verified: ??04/11/2021 8:14 ?? Pathologist Performed at: ??-[facility] [place], [place], [place] ? Surgical Pathology DIAGNOSIS A - Lung, ??left lower lobe mass, debulking: ?? - Adenocarcinoma, consistent with lung primary. Electronically signed by: ?Sana Dowell MD Verified: ??04/06/2021 11:16 ??Pathologist Performed at: ??-[facility] [place], [address], [place], [place] DISCUSSION Sections show an invasive, predominantly [...] propria. - No muscularis propria identified. Labs: 08/13/22 TSH 3.96, free T40.98, BUN 24, [...] of tongue abnormality on the PET scan. # Low back pain left side pain- She is taking Tramadol 50 mg(1/2) every 12 hours with tylenol in between if needed. She follows with Palliative Care. #Abnormal thyroid function: levothyroxine is 75 mcg daily.. Will monitor thyroid function. TSH improved- 1.08 FT4-0.99 #Renal insufficiency: Cr 1.6 today, stable, Creatinine 3.0 on admission. She has bilateral nephrostomy tubes. tube exchange will be Friday-07/26/22. # Anemia- mild- asymptomatic. Plan: 1 Proceed with C23 Pembrolizumab today as scheduled. 2. Continue levothyroxine 75 mcg a day 3. Referral to ENT 4. Next visit with CBC, CMP, TSH, free T4 and pembrolizumab in 3 weeks. 5. PET scan in 6-7 weeks Barb voiced understanding of the plan and was given an opportunity to ask questions which I answered to the best of my ability. Barb understands she can call the clinic between visits with any questions/concerns or new symptoms. documented in this encounter Miscellaneous Notes * Addendum Note - Jose Rhoades MD - 08/13/2022 1:30 PM EDTAddended by: JOSE RHOADES on: 08/13/2022 02:38 PM Modules accepted: Orders documented in this encounter Plan of Treatment Upcoming Encounters Date Type Department Care Team (Late st Contact Info) Description 12/08/2023 3:30 PM EDT Office Visit Hematology/Oncology at [address] [phone] Chase Mckay MD [facility] HEMATOLOGY [place] [address] Scheduled Referrals Name Type Priority Associated Diagnoses Orde r Schedule Referral to ENT Outpatient Referral Routine Tongue lesion Metastatic urothelial carcinoma Primary lung adenocarcinoma, left Ordered: 08/13/2022 documented as of this encounter Results * [...] who have questions please contact the health elderly caregiver that requested your imaging first. ? Electronically signed by: Billy Anderson MD, [facility] ([phone]), at 10/11/2022 8:59 AM Narrative 10/11/2022 8:59 AM EDT EXAMINATION: NM PET CT STANDARD SKULL BASE TO MID-THIGH CLINICAL HISTORY: Urologic cancer, assess treatment response - Include more detail below Restaging of metastatic urothelial carcinoma TECHNIQUE: Following IV injection of 69-abryqz-5-deoxyglucose (FDG) a standard uptake of approximately 60 [...] urothelial carcinoma TECHNIQUE: Following IV injection of 74-tiypfc-4-deoxyglucose (FDG) astandard uptake of approximately 60 minutes, [...] lymph nodes measure 11 and 12 mm ([id number] and 246). Mildly increased activity is noted [...] patients who have questions please contactthe health elderly caregiver that requested your imaging first. Electronically signed by: Billy Anderson MD, [facility]([phone]), at 10/11/2022 8:59 AM Jose Rhoades MD IMG PET ORDERABLES documented in this encounter Visit Diagnoses Diagnosis Tongue lesion- Primary Other specified conditions of the tongue Metastatic urothelial carcinoma Secondary malignant neoplasm of other urinary organs Primary lung adenocarcinoma, left Abnormal thyroid function test Nonspecific abnormal results of thyroid function study Metastatic urothelial carcinoma Secondary malignant neoplasm of other urinary organs Primary lung adenocarcinoma, left documented in this encounter Care Teams Transformer Builder Relationship Specialty Start Date End Date Tavia Ramirez APRN [address] [place] [address] PCP - General Family Medicine 06/11/22 documented as of this encounter
--- OUTSIDE RECORDS SUMMARY | 2023-11-21 15:57 | XMS_ITS | Encounter Summary ---
Author Organization [facility] [place] [address] Care Team Providers Care Digital Product Specialist Name Role Phone James Tavia Foster APRN Primary Care Provider [phone] Reason for Referral * Consultation (Routine) - Closed Specialty Diagnoses / Procedures Referred By Contac t Referred To Contact Otolaryngology Diagnoses Metastatic urothelial carcinoma Tongue lesion Primary lung adenocarcinoma, left Jose Lange MD [facility] [place] [address] [facility] [address] [place] [phone] Referral ID Status Reason Start Date Expiration Date V isits Requested Visits Authorized [id number] Closed Consult, Test & Treat 10/08/2022 10/08/2023 1 1 Encounter Details Date Type Department Care Team (Late st Contact Info) Description 10/08/2022 1:00 PM EDT Office Visit Hematology/Oncology at [address] [phone] Jose Lange MD [facility] H[place]Y [place] [address] Tea Dimas APRN [facility] [place] [address] Metastatic urothelial carcinoma; Hypothyroidism due to drugs; Tongue lesion; Primary lung adenocarcinoma, left Social History Tobacco [...] Sign Reading Time Taken Comments Blood Pressure 125/71 10/08/2022 1:05 PM EDT Pulse 98 10/08/2022 1:05 PM EDT Temperature 36.1 ??C (97 ??F) 10/08/2022 1:05 PM EDT Respiratory Rate 16 10/08/2022 1:05 PM EDT Oxygen Saturation - - Inhaled Oxygen Concentration - - Weight 69.9 kg (154 lb) 10/08/2022 1:05 PM EDT Height 163.8 cm (5' 4.49) 10/08/2022 1:05 PM ED T Body Mass Index 26.04 10/08/2022 1:05 PM EDT documented in this encounter Progress Notes * Jose Lange MD - 10/08/2022 1:00 PM EDT Images from the original note were not included. Hematology & Medical Oncology [address] [phone] Barb returns today to continue treatment for [...] distinct lung primary. She was seen by semiconductor technician , who recommended rigid bronchoscopy withattempts to [...] HTN. She wasdischarged home on 05/01/21 INTERVAL HISTORY(10/08/22)- Babr returns today for followup of her bladder/lung cancer and C25 of pembrolizumab. PET scan was rescheduled to . Overall feeling well today. Both nephrostomy tubes are draining well. She has not had any discomfort around [...] catheters 01/18/2022 UTI 09/14/2021 04/26/21-05/01/21 admission to [facility] with pneumonia, Pulmonary hypertension/CHF, BRITNI 04/16/2021 nephrostomy catheter exchange 04/04/21 bronchoscopy and tumor debulking- endobronchial biopsies positive for adenocarcinoma of lung origin Social History: No interval changes since last visit [id number] smoking history quit 6 years ago, does not drink alcohol, used to live independently, but currently moved to her daughters house. Family History: No interval changes since last visit Brother had liver cancer, mother had leukemia, maternal aunt had colon cancer in cousin had bladdercancer Allergies: No Known Allergies Medications: Your Medications Accurate as of October 08, 2022 1:30 PM. If you have any questions, ask [...] axillary nodes normal Neurologic: Normal Vitals BP 125/71 (Patient Position: Sitting) Pulse 98 Temp 36.1 ??C (97 ??F) (Temporal) Resp 16 Ht 163.8 cm (5' 4.49) Wt 69.9 kg (154 lb) BMI 26.04 kg/m?? Pathology: Molecular pathology KRAS p.G12C c.34G>T [...] The assay was performed according to the orthodontist vice president's instructions using Anti-PD-L1 (22C3, pharmDX) antibody. Electronically signed by: Herbert Ford MD Verified: 04/11/2021 8:14 Pathologist Performed at: -[facility] Dept. of Pathology, [place], [place] Surgical Pathology DIAGNOSIS A - Lung, left lower lobe mass, debulking: - Adenocarcinoma, consistent with lung primary. Electronically signed by: Sana Dowell MD Verified: 04/06/2021 11:16 Pathologist Performed at: -[facility] Dept. of Pathology, [place], [place] DISCUSSION Sections show an invasive, predominantly [...] propria. - No muscularis propria identified. Labs: 10/08/2022 sodium 136, potassium 3.9, BUN 19, [...] of presumably metastatic urothelial carcinoma which include [place] based chemotherapy versus immunotherapy. Due to her [...] today and are acceptable to continue treatment. # Low back pain left side pain- [...] Anemia- mild- asymptomatic. Plan: 1 Proceed with C25 Pembrolizumab today as scheduled. 2. Continue levothyroxine 75 mcg a day 3. Referral to ENT at 4. Next visit with CBC, CMP, TSH, free T4 and rpembrolizumab on 11/05/22. 5. PET scan scheduled for September. Barb [...] PM EDT Office Visit Hematology/Oncology at [address] [phone] Chase Mckay MD [facility] DR [place] [address] Scheduled Orders Name Type Priority Associated Diagnoses Orde r Schedule CBC (with Diff) Lab Routine Metastatic urothelial carcinoma Hypothyroidism due to drugs Every 3 weeks for 10 Occurrences starting 10/08/2022 until 10/09/2023 Comprehensive metabolic panel (non-fasting) Lab Routine Metastatic urothelial carcinoma Hypothyroidism due to drugs Every 3 weeks for 10 Occurrences starting 10/08/2022 until 10/09/2023 TSH Lab Routine Hypothyroidism due to drugs Every 3 weeks for 10 Occurrences starting 10/08/2022 until 10/09/2023 T4, free Lab Routine Hypothyroidism due to drugs Every 3 weeks for 10 Occurrences starting 10/08/2022 until 10/09/2023 Scheduled Referrals Name Type Priority Associated Diagnoses [...] of the tongue Primary lung adenocarcinoma, left documented in this encounter Care Teams Digital Product Specialist Relationship Specialty Start Date End Date Tavia Ramirez, PASSENGER AGENT [address] [place] [address] PCP - General Family Medicine 06/11/22 documented as of this encounter
--- OUTSIDE RECORDS SUMMARY | 2023-11-21 15:58 | XMS_ITS | Encounter Summary ---
Author Organization [facility] Address [facility] [place] [address] Care Team Providers Care Employee Operations Examiner Name Role Phone Eren Shah DNP Primary Care Provider [phone] Encounter Details Date Type Department Care Team (Late st Contact Info) Description 03/26/2022 Orders [place] [address] Yonathan Van MD [facility] [place] [address] Social History Tobacco Use Types Packs/Day Years [...] as of this encounter H&P Notes * Yonathan Van MD - 03/26/2022 11:16 AM EST Images from the original note were not included. INTERVENTIONAL RADIOLOGY FOCUSED H&P and PRE-PROCEDURE NOTE: PCP: Eren Shah APRN Referring Provider: Dr. Juares Planned Procedure: Planned procedure: Bilateral PCN exchange versus conversion to bilateral NU stents. Procedure Indication: Routine exchange Procedure Request: Procedure request received through the Interventional Radiology eDH order queue. Presenting Diagnosis/ Complaint: Barb Bullard is a 71 y.o. female with history of metastatic urothelial carcinoma causing hydronephrosis status post bilateral NU placement on 02/20/2021. Patient presenting for routine exchange every 3 months. Patient last seen on 01/18. Bilateral NUs were convertedto 10 Turkmen nephrostomy catheters at that time due to negligible bladder volume and unable to formNU catheters and bladder without patient discomfort. Past Medical/Surgical History: Patient Active Problem List Diagnosis Code ??? Metastatic urothelial carcinoma C79.10 ??? Abnormal thyroid function test R94.6 ??? Anemia D64.9 ??? Bilateral hydronephrosis N13.30 ??? Folate deficiency E53.8 ??? Lung mass R91.8 ??? Obstructive uropathy N13.9 ??? 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 C34.32 No past medical history on file. Past Surgical History: Procedure Laterality Date ??? IR MEDIPORT PLACEMENT 04/02/2021 IR Mediport Placement 04/02/2021 Yuval Sinclair PA [facility] INTERVENTIONL RAD ??? IR NEPHROSTOMY TUBE PLACEMENT PERCUTANEOUS BILATERAL 02/20/2021 IR Nephrostomy Tube Placement Percutaneous Bilateral [facility] INTERVENTIONL RAD ??? IR NEPHROURETERAL (NU) STENT PLACEMENT/CHECK/CHANGE 07/13/2021 IR Nephroureteral (NU) Stent Placement Check/Change 07/13/2021 Alexis De La Cruz MD [facility] INTERVENTIONLRAD ??? IR NEPHROURETERAL (NU) STENT PLACEMENT/CHECK/CHANGE 10/23/2021 IR Nephroureteral (NU) Stent Placement Check/Change 10/23/2021 Zeferino Rosado MD [facility] INTERVENTIONL RAD ??? IR NEPHROURETERAL (NU) STENT PLACEMENT/CHECK/CHANGE 01/18/2022 IR Nephroureteral (NU) Stent Placement Check/Change 01/18/2022 Guillermo Nice MD [facility] INTERVENTIONLRAD ? ? PRO [facility] EBUS GUIDED SAMPL 3/> NODE STATION/STRUX N/A 04/04/2021 BRONCH, W ENDOBRONCHIAL ULTRASOUND (EBUS) GUIDED SAMPLING, 3+ NODES (WRVU 5.21) performed by Alonzo Cevallos MD at [facility] MAIN OR ??? PRO BRONCHOSCOPY, DIAGNOSTIC W LAVAGE N/A 04/04/2021 BRONCHOSCOPY, RIGID OR FLEXIBLE, WITH BRONCHIAL ALVEOLAR LAVAGE (WRVU 2.88) performed by Alonzo Cevallos MD at [facility] MAIN OR Medications: Current Outpatient Medications on File Prior to Visit Medication Sig Dispense Refill ??? levothyroxine (Synthroid) 75 mcg Tablet Take 1 tablet by mouth daily. 30 tablet 11 ??? acetaminophen (Tylenol) 500 mg Tablet Take 1,000 mg by mouth every 8 hours as needed for Pain. ??? traMADoL (Ultram) 50 mg Tablet Take 1 tablet by mouth every 6 hours as needed for Pain. (Patient not taking: Reported on 02/19/2022) 30 tablet 0 ??? senna (Senokot) 8.6 mg Tablet Take by mouth daily. ??? prochlorperazine (Compazine) 10 mg Tablet Take 1 tablet by mouth every 6 hours as needed for Nausea. (Patient not taking: Reported on 08/07/2021) 15 tablet 0 No current facility-administered medications on file prior to visit. Allergies: Patient has no known allergies. Social History and Habits: Social History Socioeconomic History ??? Marital status: Single Spouse name: Not on file ??? Number of children: Not on file ??? Years of education: Not on file ??? Highest education level: Not on file Occupational History ??? Not on file Tobacco Use ??? Smoking status: Former Types: Cigarettes Quit date: 07/04/2014 Years since quittin.7 ??? Smokeless tobacco: Never Vaping Use ??? Vaping Use: Never used Substance and Sexual Activity ??? Alcohol use: Not Currently ??? Drug use: Never ??? Sexual activity: Not on file Other Topics Concern ??? Not on file Social History Narrative ??? Not on file Social Determinants of Health Financial Resource Strain: Unknown ??? Difficulty of Paying Living Expenses: Patient refused Food Insecurity: Unknown ??? Worried About Running Out of Food in the Last Year: Patient refused ??? Ran Out of Food in the Last Year: Patient refused Transportation Needs: No Transportation Needs ??? Lack of Transportation (Medical): No ??? Lack of Transportation (Non-Medical): No Physical Activity: Not on file Housing Stability: Unknown ??? Unable to Pay for Housing in the Last Year: Patient refused ??? Number of Places Lived in the Last Year: 2 ??? Unstable Housing in the Last Year: No [...] in angio the day of procedure) Assessment: 71 y.o. female with history of urothelial cancer and bilateral hydronephrosis managed with bilateral nephroureteral stents undergoing routine exchange. During patient's last exchange there was insufficient bladder volume to form distal pigtail within the bladder and access was convertedto bilateral percutaneous nephrostomy tubes. Patient now presenting for routine bilateral PCN exchange versus conversion back to NU. Plan: Planned procedure: Bilateral PCN exchange versus conversion to bilateral NU stents. Labs to be performed day of procedure: No labs Sedation: No Sedation Prophylactic antibiotic : None Contrast: No contrast Additional medications for procedure: Lidocaine Planned access site: Existing PCN site Position: Prone Consent: Scanned Medications to discontinue (and days held): None Case Urgency:: G3- Elective Outpatient intervention over14 days 03/26/2022 documented in this encounter Plan of Treatment Upcoming Encounters Date Type Department Care Team (Late st Contact Info) Description 12/08/2023 3:30 PM EDT Office Visit Hematology/Oncology at [address] [phone] Chase Mckay MD [facility] DR HEMATOLOGY [place] [address] documented as of this encounter Visit Diagnoses Not on filedocumented in this encounter Care Teams Employee Operations Examiner Relationship Specialty Start Date End Date Eren Shah DNP PCP - General Family Medicine 03/20/21 06/10/22 documented as of this encounter
--- OUTSIDE RECORDS SUMMARY | 2023-11-21 15:58 | XMS_ITS | Encounter Summary ---
Author Organization [facility] Address [facility] [place] [address] Care Team Providers Care Poultry Service Technician Name Role Phone James Tavia Foster APRN Primary Care Provider [phone] Encounter Details Date Type Department Care Team (Latest Contact Info) Description 07/01/2022 Travel Social History Tobacco Use Types Packs/Day [...] PM EDT Office Visit Hematology/Oncology at [address] [address] Chase Mckay MD [facility] DR [place] [address] documented as of this encounter Visit Diagnoses Not on filedocumented in this encounter Care Teams Poultry Service Technician Relationship Specialty Start Date End Date Tavia Ramirez APRN [place] [address] PCP - General Family Medicine 06/11/22 documented as of this encounter
--- OUTSIDE RECORDS SUMMARY | 2023-11-21 15:58 | XMS_ITS | Encounter Summary ---
Author Organization [facility] Address [facility] [place] [address] Care Team Providers Care Abatement Worker Name Role Phone Eren Shah DNP Primary Care Provider [phone] Encounter Details Date Type Department Care Team (Late st Contact Info) Description 04/08/2022 Orders Only Hematology/Oncology at [address] [address] Abena Ogden RN Metastatic urothelial carcinoma; Hypothyroidism due to drugs; Abnormal thyroid function test Social History Tobacco [...] PM EDT Office Visit Hematology/Oncology at [address] [address] Chase Mckay MD [facility] [address] [place] [address] documented as of this encounter Visit Diagnoses Diagnosis Metastatic urothelial carcinoma 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
--- OUTSIDE RECORDS SUMMARY | 2023-11-21 15:58 | XMS_ITS | Encounter Summary ---
Author Organization [facility] Address [facility] [address] Care Team Providers Care Autobody Technician Name Role Phone Eren Shah DNP Primary Care Provider [phone] Encounter Details Date Type Department Care Team (Latest Contact Info) Description 03/12/2022 Travel Social History Tobacco Use Types Packs/Day [...] PM EDT Office Visit Hematology/Oncology at [address] [address] Chase Mckay MD [facility] [address] HEMATOLOGY [place] [address] documented as of this encounter Visit Diagnoses Not on filedocumented in this encounter Care Teams Autobody Technician Relationship Specialty Start Date End Date Eren Shah DNP PCP - General Family Medicine 03/20/21 06/10/22 documented as of this encounter
--- OUTSIDE RECORDS SUMMARY | 2023-11-21 15:58 | XMS_ITS | Encounter Summary ---
[place] [address] Care Team Providers Care Refined Syrup Operator Name Role Phone James Tavia Foster APRN Primary Care Provider [phone] Reason for Referral * Diagnostic Test (Routine) - Closed Specialty Diagnoses / Procedures Referred By Contac t Referred To Contact Radiology Diagnoses Obstructive uropathy Metastatic urothelial carcinoma Procedures IR Nephrogram/Nephrostomy Tube Exchange Bilateral Robe Hope PA [facility] [address] INTER[place]ION[place] [address] [facility] [place] [address] Referral ID Status Reason Start Date Expiration Date V isits Requested Visits Authorized [id number] Closed Specialty Service Requested 07/26/2022 01/26/2024 1 1 * Diagnostic Test (Routine) - Closed Specialty Diagnoses / Procedures Referred By Contac t Referred To Contact Radiology Diagnoses Obstructive uropathy Procedures IR Nephrogram/Nephrostomy Tube Exchange Bilateral Adeel Echeverria MD [facility] [place] [address] [facility] [place] [address] Referral ID Status Reason Start Date Expiration Date V isits Requested Visits Authorized [id number] Closed Specialty Service Requested 04/24/2022 10/24/2023 1 1 Reason for Visit * Diagnostic Test (Routine) - Closed Specialty Diagnoses / Procedures Referred By Etta no Referred To Contact Radiology Diagnoses Obstructive uropathy Procedures IR Nephrogram/Nephrostomy Tube Exchange Bilateral Stoner, Adeel Guardado MD [facility] [place] [address] [facility] [place] [address] Referral ID Status Reason Start Date Expiration Date V isits Requested Visits Authorized [id number] Closed Specialty Service Requested 04/24/2022 10/24/2023 1 1 Encounter Details Date Type Department Care Team (Latest Contact Info) Description 07/26/2022 1:11 PM EDT - 07/26/2022 11:59 PM EDT Hospital [place] [address] Alin Dillard MD [facility] INTERVENTIONAL [place] [address] Obstructive uropathy; Metastatic urothelial carcinoma Discharge Disposition: [...] Sign Reading Time Taken Comments Blood Pressure 153/121 07/26/2022 3:15 PM EDT Pulse 81 07/26/2022 1:45 PM EDT Temperature 36.6 ??C (97.8 ??F) 07/26/2022 1:45 PM ED T Respiratory Rate 18 07/26/2022 3:15 PM EDT Oxygen Saturation 97% 07/26/2022 3:29 PM EDT Inhaled Oxygen Concentration - - Weight - - Height - - Body Mass Index - - documented in this encounter Discharge Instructions * Discharge Instructions* Shital Tucker RN - 07/26/2022 2:51 PM EDT Images from the original note were not included. [facility] Vascular and Interventional Radiology Discharge Instructions for [...] tubing from the drain. Put a credit assistant on both the drain and the bag. [...] is during regular office hours, please call [phone]. If it is after regular office hours, or on weekends or holidays, please call [phone] and ask to speak to the Internal Sales Engineer qa automation developer for Interventional Radiology. You have received medication [...] by mouth daily as needed for Constipation. ciprofloxacin (Cipro) 500 mg Tablet Take 500 mg by mouth 2 times daily. 06/14/2022 10/08/2022 traMADoL (Ultram) 50 mg TabletIndications:Metast atic urothelial [...] as of this encounter Progress Notes * Shital Tucker RN - 07/26/2022 2:51 PM EDT ANGIO NURSING DATABASE Name: Barb Bullard Date of : 1950 AGE: 72 y.o. Address: [address] [place] [phone] (home) Mobile: Telephone Information: Referring Provider: Adeel Echeverria REASON FOR VISIT: Order Questions Answers Where will study be performed? [facility] Radiology [120] Reason for exam and clinical history: rountine PCN exchange, bilateral Is the patient on anticoagulant / antiplatelet therapy ? No No data recorded No Known Allergies Pertinent PMH: Patient Active Problem List Diagnosis Code ??? Metastatic urothelial carcinoma C79.10 ??? Abnormal thyroid function test R94.6 ??? Anemia D64.9 ??? Bilateral hydronephrosis N13.30 ??? Folate deficiency E53.8 ??? Lung mass R91.8 ??? Obstructive uropathy N13.9 ??? 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 C34.32 Date/Procedure?Meds given/comments 02/20/21 b/l PCN Placement?? No abx - covered from meds at OSH?4 mg midazolam,??175??mcg fentanyl ??04/02/21??Right chest port placement?local lidocaine, 2g Ancef,??3mg midazolam,??150mcg fentanyl 04/16/21 B/L Double J Stent Exchange ??Lido Jelly ??07/13/2021 Bileteral Nu exchange ??Cipro 500 mg PO, Local only, pt was in a lot of pain, may consider fentanyl for next exchange. ??10/23/21 Bilateral NU tube change PO: Cipro 500mg;??SQ: 1% lidocaine (admin by MD); Topical; 2% lidocaine jelly ??04/24/2022 Bilateral PCN exchange ??PO: Cipro 500mg, lidocaine local ??07/26/22 BL PCN exchange ??local only, 500mg Cipro PO ? 1458 to procedure room 4 via stretcher. Onto [...] PM EDT Office Visit Hematology/Oncology at [address] [address] Chase Mckay MD [facility] DR HEMATOLOGY AND [facility]COLOGY [facility] [place] [address] documented as of this encounter Procedures Procedure Name Priority Date/Time Associated Diagnosis Comments IR NEPHROGRAM/NEPHROST CAYLA TUBE EXCHANGE BILATERAL Routine 07/26/2022 3:41 PM EDT Obstructive uropathy documented in this encounter Results * IR Nephrogram/Nephrostomy Tube Exchange Bilateral (10/18/2022 [...] throughout the procedure. ?? Alin Dillard MD IMG IR ORDERABLES * IR Nephrogram/Nephrostomy Tube Exchange Bilateral (07/26/2022 3:41 PM EDT) Anatomical Region Laterality Modality X-Ray Angiograph y Narrative 07/26/2022 5:09 PM EDT Interventional Radiology Procedure Note Procedure: Exchange of bilateral percutaneous nephrostomy drains under fluoroscopic guidance Indication: Metastatic urothelial carcinoma, routine catheter exchange Procedure Summary: 1.) Antegrade nephrostogram via indwelling drain 2.) Exchange of bilateral percutaneous nephrostomy drain under fluoroscopic guidance Pre-procedure: Informed consent for the procedure including risks, benefits and alternatives was obtained and time-out was performed prior to the procedure. Maximum sterile barrier technique was used throughout the procedure. Sedation: None Technique: The patient was positioned prone. Beginning with the right ?? nephrostomy drain, local anesthetic was administered. Initial nephrostogram was performed. A Business Labson wire was advanced through the existing catheter [...] blood loss: 5 mL Complications: No immediate Impression: 1.) Catheters in stable position in the right and left renal pelves. 2.) Exchange of bilateral percutaneous nephrostomy drains with new 10 F catheters. Service provider: Robe Hope PA-C Attending of record: Alin Dillard MD 07/26/2022 Alin Dillard MD IMG IR ORDERABLES documented in this encounter Visit Diagnoses Diagnosis Obstructive uropathy Urinary obstruction, unspecified Metastatic urothelial carcinoma Secondary malignant neoplasm of other urinary organs Obstructive uropathy Urinary obstruction, unspecified Metastatic urothelial carcinoma Secondary malignant neoplasm of other urinary organs documented in this encounter Administered Medications Inactive Administered Medications - up to 3 most recent administrations Medication Order MAR Action Action Date Dose Rate Site ciprofloxacin (Cipro) tablet 500 mg 500 mg, Oral, ONCE, 1 dose, On Fri07/26/22 at 1400, Angio/IR (Day of Procedure), Routine, Indication for (Active or Suspected): Prophylaxis Given 07/26/2022 2:59 PM EDT 500 mg iohexoL (Omnipaque) (350 mg/mL) solution 1-400 mL 1-400 mL, Other, ONCE, 1 dose, On Fri07/26/22 at 1400, For intra-procedural use by proceduralist., Angio/IR (Intra-Procedure), Routine Given 07/26/2022 2:00 PM EDT 10 mLs documented in this encounter Care Teams Refined Syrup Operator Relationship Specialty Start Date End Date Tavia Ramirez APRN [address] [facility] [place] [address] PCP - General Family Medicine 06/11/22 documented as of this encounter
--- OUTSIDE RECORDS SUMMARY | 2023-11-21 15:58 | XMS_ITS | Encounter Summary ---
Author Organization [facility] Address [facility] [place] [address] Care Team Providers Care Continuing Education Specialist Name Role Phone Tavia Ramirez APRN Primary Care Provider [phone] Reason for Visit * Reason Comments IV Access Mediport flush only Encounter Details Date Type Department Care Team (Late st Contact Info) Description 06/25/2022 2:00 PM EST Infusion Hematology Oncology at [address] [address] Metastatic urothelial carcinoma Social History [...] as of this encounter Progress Notes * Audrey Giron RN - 06/25/2022 2:00 PM EST INFUSION THERAPY ADMINISTRATION NOTES DIAGNOSIS: Bladder Cancer REASON FOR VISIT: MEDIPORT FLUSH ONLY IV [...] 3:30 PM EDT Office Visit Hematology/Oncology at [address] [address] Chase Mckay MD [facility] DR HEMATOLOGY [place] [address] documented as of this encounter Visit Diagnoses Diagnosis Metastatic urothelial carcinoma Secondary malignant neoplasm of other urinary organs documented in this encounter Care Teams Continuing Education Specialist Relationship Specialty Start Date End Date Tavia Ramirez APRN [facility] [address] [facility] [place] [address] PCP - General Family Medicine 06/11/22 documented as of this encounter
--- OUTSIDE RECORDS SUMMARY | 2023-11-21 15:58 | XMS_ITS | Encounter Summary ---
Author Organization [facility] Address [facility] [place] [address] Care Team Providers Care Sawmill Tally Clerk Name Role Phone Tavia Ramirez APRN Primary Care Provider [phone] Encounter Details Date Type Department Care Team (Late st Contact Info) Description 06/25/2022 1:30 PM EST Office Visit Hematology/Oncology at [address] [address] Abena Ogden, RN Metastatic urothelial carcinoma; Primary lung adenocarcinoma, left Social History Tobacco [...] Sign Reading Time Taken Comments Blood Pressure 131/70 06/25/2022 1:31 PM EST Pulse 78 06/25/2022 1:31 PM EST Temperature 36.6 ??C (97.8 ??F) 06/25/2022 1:31 PM ES T Respiratory Rate 18 06/25/2022 1:31 PM EST Oxygen Saturation 100% 06/25/2022 1:31 PM EST Inhaled Oxygen Concentration - - Weight 68.9 kg (152 lb) 06/25/2022 1:31 PM EST Height 163.8 cm (5' 4.49) 06/25/2022 1:31 PM ES T Body Mass Index 25.7 06/25/2022 1:31 PM EST documented in this encounter Progress Notes * Abena Ogden, WIRE HARNESS DESIGN ENGINEER - 06/25/2022 1:30 PM EST Images from the original note were not included. Hematology & Medical Oncology [place] [id number] Barb returns today to continue treatment for Metastatic urothelial carcinoma and primary lung cancer HPI: Barb Bullard is 71 y.o.F referred by Dr. Arzate for consultation [...] distinct lung primary. She was seen by shaft sinker , who recommended rigid bronchoscopy withattempts to [...] HTN. She wasdischarged home on 05/01/21 INTERVAL HISTORY(06/25/22)- Barb returns today for followup of her bladder/lung cancer and next dose of pembrolizumab. Since we saw her last she had a positive COVID test. She began with symptoms on June 12 and her test was positive. Her most recent test a couple of days ago was negative. Shestill has a loose productive cough. She has been on an antibiotic for another urinary infection. She did have some hematuria but that has resolved. Both nephrostomy tubes are draining well now. She had a nephrostomy tube exchange on 04/24/22. Urine is clear yellow with mucus. She occasionally gets some pain in her left side especially if she sleeps on that side. She uses the tramadol with good relief. Bowel movements are regular. No nausea or vomiting. She has a rash on forearms and upper back,chest and face. She does have itching after her infusions relieved by cortisone cream. No shortnessof breath, chest pain or edema. She is fatigued today. Denies any recent fevers or chills. No otherfocal complaints today. PMH: COVID- 06/12/22 UTI- 06/12/22 UTI 02/12/2022 Bilateral over the wire conversion of nephro-ureteral stent to 10 Fr nephrostomy catheters 01/18/2022 UTI 09/14/2021 04/26/21-05/01/[address] [facility] with pneumonia, Pulmonary hypertension/CHF, BRITNI 04/16/2021 nephrostomy catheter exchange 04/04/21 bronchoscopy and tumor debulking- endobronchial biopsies positive for adenocarcinoma of lung origin Social History: No interval changes since last visit [id number] smoking history quit 6 years ago, does not drink alcohol, used to live independently, but currently moved to her daughters house. Family History: No interval changes since last visit Brother had liver cancer, mother had leukemia, maternal aunt had colon cancer in cousin had bladdercancer Allergies: No Known Allergies Medications: Your Medications Accurate as of June 25, 2022 4:26 PM. If you have any questions, ask your nurse or doctor. Continued medications, unchanged Dose Details acetaminophen 500 mg Tab Commonly known as: Tylenol Take 1,000 mg by mouth every 8 hours as needed for Pain. 1,000 mg Refills: 0 ciprofloxacin 500 mg Tab Commonly known as: Cipro Take 500 mg by mouth 2 times daily. 500 mg Refills: 0 levothyroxine 75 mcg Tab Commonly known as: Synthroid Take 1 tablet by mouth daily. 75 mcg Quantity: 30 tablet Refills: 11 prochlorperazine 10 mg Tab Commonly known as: Compazine Take 1 tablet by mouth every 6 hours as needed for Nausea. 10 mg Quantity: 15 tablet Refills: 0 senna 8.6 mg Tab Commonly known as: Senokot Take by mouth daily. Refills: 0 traMADoL 50 mg Tab Commonly known as: Ultram Take 1 tablet by mouth every 6 hours as needed for Pain. 50 mg Quantity: 30 tablet Refills: 0 Review of Systems: Constitutional: Negative for fever, chills. Positive for fatigue. HEENT: Negative for sore throat, mouth sores and trouble swallowing. Eyes: Negative. Respiratory: Negative for shortness of breath. No wheezing. No hemoptysis. Positive for cough. Positive for COVID Cardiovascular: Negative for chest pain, palpitations and leg swelling. Gastrointestinal: Negative for nausea, vomiting, abdominal pain, diarrhea, constipation and abdominal distention. Genitourinary:Bilateral nephrostomy tubes. Being treated for UTI. Musculoskeletal: Negative Skin: Negative. Neurological: Negative. Hematological: Negative for adenopathy. PE: General: AAAx3, in NAD. Pallor Head: Normocephalic, without obvious abnormality, atraumatic Eyes: PERRL, conjunctiva/corneas clear both eyes Ears: Nose: Throat: No mucositis. Neck: Supple, symmetrical, trachea midline, no adenopathy, [...] axillary nodes normal Neurologic: Normal Vitals BP 131/70 (Patient Position: Sitting) Pulse 78 Temp 36.6 ??C (97.8 ??F) (Temporal) Resp 18 Ht 163.8 cm (5' 4.49) Wt 68.9 kg (152 lb) SpO2 100% BMI 25.70 kg/m?? Pathology: Molecular pathology KRAS p.G12C c.34G>T [...] The assay was performed according to the visitor service assistant's ??instructions using Anti-PD-L1 (22C3, pharmDX) antibody. Electronically signed by: ?ZaHerbert gonzalez MD Verified: ??04/11/2021 8:14 ?? Pathologist Performed at: ??-[facility] Dept. of Pathology, [place], [place] ? Surgical Pathology DIAGNOSIS A - Lung, ??left lower lobe mass, debulking: ?? - Adenocarcinoma, consistent with lung primary. Electronically signed by: ?Sana Dowell MD Verified: ??04/06/2021 11:16 ??Pathologist Performed at: ??-[facility] Dept. of Pathology, [place], [place] DISCUSSION Sections show an invasive, predominantly [...] propria. - No muscularis propria identified. Labs: 06/25/22- WBC-12.72 Hgb/Hct-11.1/36.0 Plt-635 ANC-7.68 Na-139 K+-3.6 [...] albumin 3.3, TSH 7.48, free T4 0.77 09/18/2021 WBC 10.35, hemoglobin 11.2, platelet count 565, ANC 6.67, BUN 22, creatinine 1.5, calcium8.6, TB 0.5, AST 13, ALT 14, alkaline phosphatase 77, albumin 3.0, TSH 5.55, free T4 0.88 08/28/2021 BUN 21, creatinine 1.5, calcium 8.9, TB 0.7, AST 13, ALT 12, alkaline phosphatase 76, total protein 8.3, albumin 3.1, TSH 3.28, free T4 0.88, WBC 10.77, hemoglobin 11.7, platelet count pending, ANC 6.84, 08/07/21 iron 27, TIBC 263, transferrin saturation 10%, ferritin 233 BUN 26, creatinine 1.4, calcium 9.6, TB 0.3, AST 13, ALT 16, alkaline phosphatase 65, albumin 3.0, TSH 3.98, free T4 0.79, WBC 9.99, hemoglobin 10.9, platelet count 541. 07/17/2021 WBC 9.97, hemoglobin 10.9, platelet count 748, ANC 6.32, BUN 16, creatinine 1.4, calcium 8.8, TB 0.5, AST 10, ALT 12, alkaline phosphatase 68, total protein 8.7, albumin 2.8, TSH 3.1, free T4 1.12 06/26/21- WBC-9.83 Hgb/Hct-10.8/35.2 Plt-578 ANC-5.74 Ca-8.8 Glucose-90 BUN/Cr-17/1.3 Albumin-2.9 T. Bili-0.6 Alk phos-69 Na-137 K+- 4.1 AST-18 ALT-10 TSH-3.25 Free T4-0.85 06/05/21- WBC-10.74 Hgb/Hct-10.7/35.9 Plt-608 ANC-6.44 Na-140 K+-3.6 BUN/cr-21/1.5 Glucose-98 Ca-9.2 T. Bili-0.5 AST-17 ALT-13 Alk phos-81 Albumin-2.8 TSH-2.93 Free T4-0.85 05/15/2021 sodium 136, potassium 4.2, BUN 24, creatinine 1.8, calcium 8.9, alkaline phosphatase 127,total protein 8.7, albumin 3.1, TSH 3.2, free T4 0.9, WBC 11.9, hemoglobin 9.7, platelet count 958,ANC 6.2, 05/09/21- WBC-12.15 Hgb/Hct-9.0/29.3 Plt-984 ANC-7.16 Na-138 K+-3.1 BUN/Cr-31/1.8 Glucose-114 Ca-8.6 T. Bili-0.3 AST-13 ALT-20 Alk phos-133 Albumin-2.7 03/21/2021 WBC 27.8, hemoglobin 10.2, platelet count 871, BUN 39, creatinine 1.9, calcium 10.3 Imagin06/12/22- PET scan: IMPRESSION 1. There is [...] of presumably metastatic urothelial carcinoma which include [place] based chemotherapy versus immunotherapy. Due to her [...] regimen. She was seen by Dr. Mckay lwith recommendation of continuation pembrolizumab and consideration of [...] to monitorclosely. She denies any difficulty swallowing. # Low back pain left side pain- She is taking Tramadol 50 mg(1/2) every 12 hours with tylenol in between if needed. She follows with Palliative Care. #Abnormal thyroid function: levothyroxine is 75 mcg daily.. Will monitor thyroid function. TSH improved- 0.64 FT4-1.18 #Renal insufficiency: Cr 1.3 today, stable, Creatinine 3.0 on admission. She has bilateral nephrostomy tubes. tube exchange will be tomorrow- 04/24/22. # Anemia- mild- asymptomatic. Plan: 1 Hold C21 Pembrolizumab today- reschedule for stand alone infusion in one week. 2. Continue levothyroxine 75 mcg a day 3. Next visit with CBC, CMP, TSH, free T4 and pembrolizumab in 3 weeks from 07/02. Barb voiced understanding of the plan and [...] PM EDT Office Visit Hematology/Oncology at [address] [address] Chase Mckay MD [facility] DR HEMATOLOGY [place] [address] documented as of this encounter Visit Diagnoses Diagnosis Metastatic urothelial carcinoma Secondary malignant neoplasm of other urinary organs Primary lung adenocarcinoma, left documented in this encounter Care Teams Sawmill Tally Clerk Relationship Specialty Start Date End Date Tavia Ramirez APRN [address] [place] [address] PCP - General Family Medicine 06/11/22 documented as of this encounter
--- OUTSIDE RECORDS SUMMARY | 2023-11-21 15:58 | XMS_ITS | Encounter Summary ---
Author Organization [facility] Address [facility] [place] [address] Care Team Providers Care Mig Tig Welder Name Role Phone Eren Shah DNP Primary Care Provider [phone] Encounter Details Date Type Department Care Team (Latest Contact Info) Description 04/02/2022 Travel Social History Tobacco Use Types Packs/Day [...] PM EDT Office Visit Hematology/Oncology at [address] [address] Chase Mckay MD [facility] DR [place] [address] documented as of this encounter Visit Diagnoses Not on filedocumented in this encounter Care Teams Mig Tig Welder Relationship Specialty Start Date End Date Eren Shah DNP PCP - General Family Medicine 03/20/21 06/10/22 documented as of this encounter
--- OUTSIDE RECORDS SUMMARY | 2023-11-21 15:58 | XMS_ITS | Encounter Summary ---
Author Organization [facility] [place] [address] Care Team Providers Care Clean Out Driller Helper Name Role Phone Eren Shah CHELSEA Primary Care Provider [phone] Reason for Visit * Reason Comments Chemotherapy Cycle 20, Day 1 * Treatment/Therapy Plan Authorization (Routine) - Closed Specialty Diagnoses / Procedures Referred By Contac t Referred To Contact Hematology and Oncology Diagnoses Metastatic urothelial carcinoma Abnormal thyroid function test Procedures [id number] Jose Barnhart MD [address] [place] [address] [place] [address] Jose Lange MD [address] [place] [address] DR [place] [address] Referral ID Status Reason Start Date Expiration Date Visits Re quested Visits Authorized [id number] Closed 04/28/2022 06/24/2023 99 99 Encounter Details Date Type Department Care Team (Late st Contact Info) Description 06/04/2022 10:00 AM EST Infusion Hematology Oncology at [address] [phone] Metastatic urothelial carcinoma Social History [...] Sign Reading Time Taken Comments Blood Pressure 116/87 06/04/2022 9:51 AM EST Pulse 76 06/04/2022 9:51 AM EST Temperature 36.2 ??C (97.2 ??F) 06/04/2022 9:51 AM ES T Respiratory Rate 18 06/04/2022 9:51 AM EST Oxygen Saturation 100% 06/04/2022 9:51 AM EST Inhaled Oxygen Concentration - - Weight 68 kg (150 lb) 06/04/2022 9:51 AM EST Height 163.8 cm (5' 4.49) 06/04/2022 9:51 AM ES T Body Mass Index 25.36 06/04/2022 9:51 AM EST documented in this encounter Progress Notes * Marci Chen RN - 06/04/2022 10:00 AM EST INFUSION THERAPY ADMINISTRATION NOTES DIAGNOSIS: Metastatic urothelial cancer and primary lung cancer CYCLE #20: Day 1 REASON FOR VISIT: Pembrolizumab SUBJECTIVE: Barb offers no complaints. OBJECTIVE: LAB DATA: Done today at [facility] for treatment. IV ACCESS: Port accessed off site. Flushes readily with brisk blood return. Pre administration: Chemotherapy orders independently verified for drug name, route, and dosage per patient's height, weight and BSA by Marci Chen RN and Staff Pharmacist(s). REACTIONS (DESCRIPTION, TIME, [...] PM EDT Office Visit Hematology/Oncology at [address] [phone] Chase Mckay MD [facility] DR [place] [address] documented as of this encounter Visit Diagnoses Diagnosis Metastatic urothelial carcinoma Secondary malignant neoplasm of other urinary organs documented in this encounter Administered Medications Inactive Administered Medications - up to 3 most recent administrations Medication Order MAR Action Action Date Dose Rate Site heparin (pf) (porcine) (100 units/mL) flush 5 mL syringe 500 Units 500 Units, Intravenous, ONCE PRN, Starting on Fri06/04/22 at 0953, Until Fri06/04/22 at 1259, Line Care, Refer to Intravenous (IV) Procedure: Accessing Implanted Vascular Access Devices (744) procedure and/or Intravenous (IV) Job Aid: Adult Flushing & Catheter Care (3328) job aid for additional information regarding guidelines and administration., Routine Given 06/04/2022 10:55 AM EST 500 Units pembrolizumab (Keytruda) 200 mg in sodium chloride 0.9% 108 mL infusion 200 mg, Intravenous, ONCE, 1 dose, On Fri06/04/22 at 1115, Administer over 30 Minutes, Flush line with NS after each dose., This agent is restricted to outpatient use. Is this drug being given as an outpatient? Yes New Bag 06/04/2022 10:23 AM EST 200 mg 216 mL/hr sodium chloride 0.9 % (flush) (BD PosiFlush Normal Saline 0.9) flush 5-20 mL 5-20 mL, Intravenous, EVERY 1 MIN PRN, Starting on Fri06/04/22 at 0953, Until Fri06/04/22 at 1259, Line Care, Flush pertains to all indwelling lines. Flush per protocol found in the job aid using the link provided on this medication record. Refer to Intravenous (IV) Job Aid: Adult Flushing & Catheter Care (9031) job aid for additional information regarding guidelines and administration., Routine Given 06/04/2022 10:55 AM EST 20 mLs sodium chloride 0.9% infusion 100 mL/hr, Intravenous, CONTINUOUS, Starting on Fri06/04/22 at 1015, Until Fri06/04/22 at 1259 New Bag 06/04/2022 10:20 AM EST 100 mL/hr 100 mL/hr documented in this encounter Care Teams Clean Out Driller Helper Relationship Specialty Start Date End Date Eren Shah DNP PCP - General Family Medicine 03/20/21 06/10/22 documented as of this encounter
--- OUTSIDE RECORDS SUMMARY | 2023-11-21 15:58 | XMS_ITS | Encounter Summary ---
Author Organization [facility] Address [facility] [place] [address] Care Team Providers Care Sleeper Cutter Name Role Phone Eren Shah DNP Primary Care Provider [phone] Encounter Details Date Type Department Care Team (Late st Contact Info) Description 04/01/2022 Telephone Hematology/Oncology at [address] [phone] Abena Ogden, RN Social History Tobacco Use Types Packs/Day [...] 3:30 PM EDT Office Visit Hematology/Oncology at [address] [phone] Chase Mckay MD [facility] DR HEMATOLOGY [place] [address] documented as of this encounter Visit Diagnoses Diagnosis Metastatic urothelial carcinoma 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
--- OUTSIDE RECORDS SUMMARY | 2023-11-21 15:58 | XMS_ITS | Encounter Summary ---
Author Organization [facility] Address [facility] [address] Care Team Providers Care Endband Cutter Hand Name Role Phone Eren Shah DNP Primary Care Provider [phone] Encounter Details Date Type Department Care Team (Late st Contact Info) Description 04/02/2022 10:30 AM EST Office Visit Hematology/Oncology at [address] [phone] Abena Ogden, RN Metastatic urothelial carcinoma; Abnormal thyroid function test; Lung mass Social History Tobacco Use Types Packs/Day Years [...] Sign Reading Time Taken Comments Blood Pressure 138/71 04/02/2022 10:23 AM EST Pulse 79 04/02/2022 10:23 AM EST Temperature 36.2 ??C (97.1 ??F) 04/02/2022 10:[address] Respiratory Rate 16 04/02/2022 10:23 AM EST Oxygen Saturation 99% 04/02/2022 10:23 AM EST Inhaled Oxygen Concentration - - Weight 67 kg (147 lb 12.8 oz) 04/02/2022 10:23 A M EST Height 163.8 cm (5' 4.49) 04/02/2022 10:[address] Body Mass Index 24.99 04/02/2022 10:23 AM EST documented in this encounter Progress Notes * Abena Ogden, REVIEW ENGINEER - 04/02/2022 10:30 AM EST Images from the original note were not included. Hematology & Medical Oncology [address] [phone] Barb returns today to continue treatment for [...] distinct lung primary. She was seen by willower , who recommended rigid bronchoscopy withattempts to open the LLL broncus as well as stage the mediastinum with EBUS. The procedure has beenscheduled yet. She underwent 04/04 bronchoscopy and tumor debulking on April 042020- endobronchial biopsies positive for adenocarcinoma of lung origin. She received one dose on immunotherapy IV on 04/18/21 andthedania unfortunately was admitted to the hospital on 03/3021 with CAP, BRITNI and pulmonary HTN. She wasdischarged home on 05/01/21 INTERVAL HISTORY(04/02/22)- Barb returns today for followup of her bladder cancer and next dose of pembrolizumab. She is fatigued today and has some mild upper respiratory symptoms. Denies any feversor chills. She has been cleaning out her brother's house since his and she is tired from this. She does not feel that she needs a week off from treatment. Both nephrostomy tubes are draining well now. She is scheduled for nephrostomy tube replacement on March. Bowel movements are regular. No nausea or vomiting. No rash but she does have itching after her infusions relieved by cortisone cream. No shortness of breath, chest pain or edema. No other focal complaints today. PMH: No interval changes since last visit UTI 02/12/2022 Bilateral over the wire conversion of nephro-ureteral stent to 10 Fr nephrostomy catheters 01/18/2022 UTI 09/14/2021 04/26/21-05/01/[address] [facility] with pneumonia, Pulmonary hypertension/CHF, BRITNI 04/16/2021 nephrostomy catheter exchange 04/04/21 bronchoscopy and tumor debulking- endobronchial biopsies positive for adenocarcinoma of lung origin Social History: No interval changes since last visit [id number] smoking history quit 6 years ago, does not drink alcohol, used to live independently, but currently moved to her daughters house. Family History: No interval changes since last visit Brother had liver cancer, mother had leukemia, maternal aunt had colon cancer in cousin had bladdercancer Allergies: No Known Allergies Medications: Your Medications Accurate as of April 02, 2022 11:08 AM. If you have any questions, ask your nurse or doctor. Continued medications, unchanged Dose Details acetaminophen 500 mg Tab Commonly known as: Tylenol Take 1,000 mg by mouth every 8 hours as needed for Pain. 1,000 mg Refills: 0 levothyroxine 75 mcg Tab [...] No wheezing. No hemoptysis. Positive for cough. Cardiovascular: Negative for chest pain, palpitations and leg swelling. Gastrointestinal: Negative for nausea, vomiting, abdominal pain, diarrhea, constipation and abdominal distention. Genitourinary:Bilateral nephrostomy tubes. Negative for hematuria. Musculoskeletal: Negative Skin: Negative. Neurological: Negative. Hematological: Negative for adenopathy. PE: General: AAAx3, in NAD. Head: Normocephalic, without obvious abnormality, atraumatic Eyes: PERRL, conjunctiva/corneas clear both eyes Ears: Nose: Throat: Wearing a mask Neck: Supple, symmetrical, trachea midline, no adenopathy, [...] organomegaly. Bilateral nephrostomy tube in place. Urine dark yellow bilaterally. Extremities: Extremities normal, atraumatic, no cyanosis or edema Pulses: Skin: Skin color, texture, turgor normal, no rashes or lesions Lymph nodes: Cervical, supraclavicular, and axillary nodes normal Neurologic: Normal Vitals BP 138/71 (Patient Position: Sitting) Pulse 79 Temp 36.2 ??C (97.1 ??F) (Temporal) Resp 16 Ht 163.8 cm (5' 4.49) Wt 67 kg (147 lb 12.8 oz) SpO2 99% BMI 24.99 kg/m?? Pathology: Molecular pathology KRAS p.G12C c.34G>T [...] The assay was performed according to the osteopathic medicine teacher's ??instructions using Anti-PD-L1 (22C3, pharmDX) antibody. Electronically signed by: ?Herbert Ford MD Verified: ??04/11/2021 8:14 ?? Pathologist Performed at: ??-[facility] Dept. of Pathology, [place], [place] ? Surgical Pathology DIAGNOSIS A - Lung, ??left lower lobe mass, debulking: ?? - Adenocarcinoma, consistent with lung primary. Electronically signed by: ?Sana Dowell MD Verified: ??04/06/2021 11:16 ??Pathologist Performed at: ??-[facility] Dept. of Pathology, [place], [place] DISCUSSION Sections show an invasive, predominantly [...] propria. - No muscularis propria identified. Labs: 04/02/22- WBC-10.15 Hgb/Hct-11.0/34.9 Plt-647 ANC-6.55 Na-142 K+-3.6 [...] 871, BUN 39, creatinine 1.9, calcium 10.3 Imagin03/08/2022 PET scan: ?? IMPRESSION 1. Unchanged FDG [...] of presumably metastatic urothelial carcinoma which include kletsel dehe wintun based chemotherapy versus immunotherapy. Due to her [...] 3 weeks with blood work and pembrolizumab. # Low back pain- She is taking Tramadol 50 mg(1/2) every 12 hours with tylenol in between if needed. She follows with Palliative Care. #Abnormal thyroid function: levothyroxine is 75 mcg daily.. Will monitor thyroid function. TSH improved- 1.13. #Renal insufficiency: Cr 1.7 today, stable, Creatinine 3.0 on admission. She has bilateral nephrostomy tubes. tube exchange will be on 04/12/22. # Anemia- mild- asymptomatic. Plan: 1. C17 Pembrolizumab today 2. Continue levothyroxine 75 mcg a day. 3. Next visit with CBC, CMP, TSH, free T4 and pembrolizumab in 3 weeks. Barb voiced understanding of [...] PM EDT Office Visit Hematology/Oncology at [address] [phone] Chase Mckay MD [facility] DR HEMATOLOGY AND [place] [address] documented as of this encounter Visit Diagnoses Diagnosis Metastatic urothelial carcinoma Secondary malignant neoplasm of other urinary organs Abnormal thyroid function test Nonspecific abnormal results of thyroid function study Lung mass Swelling, mass, or lump in chest documented in this encounter Care Teams Endband Cutter Hand Relationship Specialty Start Date End Date Eren Shah [facility] PCP - General Family Medicine 03/20/21 06/10/22 documented as of this encounter
--- OUTSIDE RECORDS SUMMARY | 2023-11-21 15:58 | XMS_ITS | Encounter Summary ---
Author Organization [facility] Address [facility] [place] [address] Care Team Providers Care Automatic Beading Lathe Operator Name Role Phone Eren Shah DNP Primary Care Provider [phone] Encounter Details Date Type Department Care Team (Late st Contact Info) Description 04/02/2022 Orders Only Hematology/Oncology at [address] [phone] Abena Ogden RN Metastatic urothelial carcinoma; Hypothyroidism due to drugs [...] PM EDT Office Visit Hematology/Oncology at [address] [phone] Chase Mckay MD [facility] DR HEMATOLOGY [place] [address] documented as of this encounter Visit Diagnoses Diagnosis Metastatic urothelial carcinoma 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
--- OUTSIDE RECORDS SUMMARY | 2023-11-21 15:58 | XMS_ITS | Encounter Summary ---
Author Organization [facility] Address [facility] [place] [address] Care Team Providers Care Custodian Athletic Equipment Name Role Phone Eren Shah DNP Primary Care Provider [phone] Encounter Details Date Type Department Care Team (Late st Contact Info) Description 03/29/2022 Orders Only Hematology/Oncology at [address] [phone] Abena Ogden, RN Metastatic urothelial carcinoma Social History Tobacco Use [...] PM EDT Office Visit Hematology/Oncology at [address] [phone] Chase Mckay MD [facility] HEMATOLOGY [place] [address] documented as of this encounter Visit Diagnoses Diagnosis Metastatic urothelial carcinoma Secondary malignant neoplasm of other urinary organs documented in this encounter Care Teams Custodian Athletic Equipment Relationship Specialty Start Date End Date Eren Shah DNP PCP - General Family Medicine 03/20/21 06/10/22 documented as of this encounter
--- OUTSIDE RECORDS SUMMARY | 2023-11-21 15:58 | XMS_ITS | Encounter Summary ---
[place] [address] Care Team Providers Care Merchandising Professor Name Role Phone Eren Shah DNP Primary Care Provider [phone] Reason for Referral * Diagnostic Test (Routine) - Closed Specialty Diagnoses / Procedures Referred By Contac t Referred To Contact Radiology Diagnoses Metastatic urothelial carcinoma Lung mass Procedures NM PET CT Skull Base to Mid-thigh Abena Ogden RN [address] [place] [address] [place] [address] [place] [address] Referral ID Status Reason Start Date Expiration Date V isits Requested Visits Authorized [id number] Closed Specialty Service Requested 05/14/2022 11/12/2023 1 1 Encounter Details Date Type Department Care Team (Late st Contact Info) Description 05/14/2022 1:30 PM EST Office Visit Hematology/Oncology at [address] [phone] Jose Lange MD [facility] DR HEMATOLOGY [place] [address] Abena Ogden RN Metastatic urothelial carcinoma; Lung mass Social History Tobacco Use Types [...] Sign Reading Time Taken Comments Blood Pressure 131/74 05/14/2022 1:47 PM EST Pulse 87 05/14/2022 1:47 PM EST Temperature 36.3 ??C (97.3 ??F) 05/14/2022 1:47 PM ES T Respiratory Rate 16 05/14/2022 1:47 PM EST Oxygen Saturation 97% 05/14/2022 1:47 PM EST Inhaled Oxygen Concentration - - Weight 67.2 kg (148 lb 3.2 oz) 05/14/2022 1:47 P M EST Height 163.8 cm (5' 4.49) 05/14/2022 1:47 PM ES T Body Mass Index 25.05 05/14/2022 1:47 PM EST documented in this encounter Progress Notes * Abena Ogden, BRIDGE GAME DIRECTOR - 05/14/2022 1:30 PM EST Images from the original note were not included. Hematology & Medical Oncology [address] [address] Barb returns today to continue treatment for [...] distinct lung primary. She was seen by supervisor sulfuric acid plant , who recommended rigid bronchoscopy withattempts to [...] HTN. She wasdischarged home on 05/01/21 INTERVAL HISTORY(05/14/22)- Barb returns today for followup of her bladder cancer and next dose ofpembrolizumab. Denies any fevers or chills. Both nephrostomy tubes are draining well now. She had anephrostomy tube exchange on 04/24/22. Urine is clear yellow with mucus. No hematuria. She occasionally gets some pain in her left side especially if she sleeps on that side. She uses the tramadol with good relief. Bowel movements are regular. No nausea or vomiting. She has a rash on forearms and upper back, chest and face. She does have itching after her infusions relieved by cortisone cream. Noshortness of breath, chest pain or edema. No other focal complaints today. PMH: No interval changes since last visit UTI 02/12/2022 Bilateral over the wire conversion of nephro-ureteral stent to 10 Fr nephrostomy catheters 01/18/2022 UTI 09/14/2021 04/26/21-05/01/21 admission to [facility] with pneumonia, Pulmonary hypertension/CHF, BRITNI 04/16/2021 nephrostomy catheter exchange 04/04/21 bronchoscopy and tumor debulking- endobronchial biopsies positive for adenocarcinoma of lung origin Social History: No interval changes since last visit [id number] smoking history quit 6 years ago, does not drink alcohol, used to live independently, but currently moved to her daughters house. Family History: No interval changes since last visit Brother had liver cancer, mother had leukemia, maternal aunt had colon cancer in cousin had bladdercancer Allergies: No Known Allergies Medications: Your Medications Accurate as of May 14, 2022 2:01 PM. If you have any questions, ask [...] shortness of breath. No wheezing. No hemoptysis. Negative for cough. Cardiovascular: Negative for chest pain, [...] nephrostomy tube in place. Urine dark yellow bilaterally with mucous. Extremities: Extremities normal, atraumatic, no cyanosis or edema Pulses: Skin: Skin color, texture, turgor normal, no rashes or lesions Lymph nodes: Cervical, supraclavicular, and axillary nodes normal Neurologic: Normal Vitals BP 131/74 (Patient Position: Sitting) Pulse 87 Temp 36.3 ??C (97.3 ??F) (Temporal) Resp 16 Ht 163.8 cm (5' 4.49) Wt 67.2 kg (148 lb 3.2 oz) SpO2 97% BMI 25.05 kg/m?? Pathology: Molecular pathology KRAS p.G12C c.34G>T [...] The assay was performed according to the director of litigation's ??instructions using Anti-PD-L1 (22C3, pharmDX) antibody. Electronically signed by: ?Herbert Ford MD Verified: ??04/11/2021 8:14 ?? Pathologist Performed at: ??-[facility] Dept. of Pathology, [place], [place] ? Surgical Pathology DIAGNOSIS A - Lung, ??left lower lobe mass, debulking: ?? - Adenocarcinoma, consistent with lung primary. Electronically signed by: ?Sana Dowell MD Verified: ??04/06/2021 11:16 ??Pathologist Performed at: ??-[facility] Dept. of Pathology, [place], [place] DISCUSSION Sections show an invasive, predominantly [...] propria. - No muscularis propria identified. Labs: 05/14/22- WBC-10.86 Hgb/Hct-10.4/34.3 Plt-634 ANC-6.70 Na-137 K+-3.9 [...] of presumably metastatic urothelial carcinoma which include nuiqsut based chemotherapy versus immunotherapy. Due to her [...] pembrolizumab. 04/23/22- Barb is here for C 19 pembrolizumab. Labs and toxicities assessed and are acceptable to continue treatment today. She had her nephrostomy tubes exchanged on 04/24/22. We will order her restaging scans before her next cycle. # Low back pain left side pain- She is taking Tramadol 50 mg(1/2) every 12 hours with tylenol in between if needed. She follows with Palliative Care. #Abnormal thyroid function: levothyroxine is 75 mcg daily.. Will monitor thyroid function. TSH improved- 0.85 FT4-1.18 #Renal insufficiency: Cr 1.8 today, stable, Creatinine 3.0 on admission. She has bilateral nephrostomy tubes. tube exchange will be tomorrow- 04/24/22. # Anemia- mild- asymptomatic. Plan: 1. C19 Pembrolizumab today 2. Continue levothyroxine 75 mcg a day 3. Next visit with CBC, CMP, TSH, free T4 and pembrolizumab in 3 weeks. 4. Restaging NM PET CT skull base to mid-thigh in May. Barb voiced understanding of the plan and [...] PM EDT Office Visit Hematology/Oncology at [address] [phone] Chase Mckay MD [facility] DR HEMATOLOGY [place] [address] documented as of this encounter Results * (ABNORMAL) NM PET CT Skull Base to Mid-thigh (06/11/2022 3:25 PM EST) Anatomical Region Laterality Modality Positron Emissio n Tomography (PET) Impressions 06/13/2022 3:02 PM EST 1. ??There is a hypermetabolic partially necrotic mass in the left lower lobe consistent with lung malignancy that is unchanged in appearance. 2. ??A hypermetabolic subcarinal lymph node is unchanged and concerning for metastasis. 3. ??FDG avid lymph nodes are present in the neck bilaterally, axilla bilaterally, retroperitoneum, pelvis and bilateral inguinal spaces. Although the presence of metastases cannot be excluded, these is favored to represent inflammatory reactive nodes, possibly secondary to ongoing therapy. 4. ??There is increased activity in the base of the left side of the tongue with a suggestion of soft tissue fullness. It is possible that this is due to reactive lymph node hyperplasia. Please consider direct visualization. Unexpected finding. 5. ??Multiple cutaneous foci of increased activity in the upper back consistent with the history of skin rash. Thank you for letting us participate in the care of this patient. ??If you are a health care provider and have any questions regarding this report, please contact the number below. ??For patients who have questions please contact the health post anesthesia care unit nurse that requested your imaging first. ? Electronically signed by: Billy Anderson MD, [facility] ([phone]), at 06/13/2022 3:02 PM Narrative 06/13/2022 3:02 PM EST EXAMINATION: NM PET CT STANDARD SKULL BASE TO MID-THIGH CLINICAL HISTORY: Urologic cancer, assess treatment response - Include more detail below; restaging metastatic bladder cancer restaging scan- on immunotherapy TECHNIQUE: Following IV injection of 89-ekfipv-4-deoxyglucose (FDG) a standard uptake of approximately 60 minutes, a noncontrast CT scan followed by a PET scan were acquired from the base of the skull to mid thighs. The noncontrast CT was used for anatomic localization and photon attenuation correction of the PET scan. Blood glucose level: 92 (mg/dL) FDG dose: 10 mCi COMPARISON: March 08, 2022 FINDINGS: HEAD/NECK: Nonenlarged but hypermetabolic cervical lymph nodes are present in the right neck at levels two, three and 1B and in the left neck at levels five and 1B these nodes are slightly more intense than seen previously. There is increased FDG activity at the base of the left side of the tongue with a suggestion of soft tissue fullness (image 20). CHEST: Again seen is a hypermetabolic mass in the left lower lobe. This mass displays areas of necrosis. There is extension into the left hilum. There is no change in appearance. A trace left-sided pleural effusion is unchanged. A hypermetabolic subcarinal lymph node is stable in appearance. Nonenlarged FDG avid lymph nodes are located in the axilla bilaterally. Intensity of uptake has increased. Coronary artery calcification is present. There is a port in the right anterior chest wall with a central venous catheter that extends to the distal superior vena cava. Mild groundglass opacities in the lungs are not significantly changed. ABDOMEN/PELVIS: Bilateral percutaneous nephrostomy tubes are in place. There is no collecting system dilatation. The bladder is decompressed and does not contain a notable amount of urine. Multiple nonenlarged hypermetabolic inguinal lymph nodes are present. FDG avid nonenlarged lymph nodes are also seen in the left external iliac and right obturator spaces. There is also an FDG avid left para-aortic lymph node (image 147). These lymph nodes are unchanged. BODY WALL: There are multiple cutaneous foci of increased FDG activity in the upper back. SKELETON/EXTREMITIES: Normal activity in all regions of the axial and visualized appendicular skeleton. Resulting Agency Comment Unexpected Finding Abena Ogden RN IMG PET ORDERABLES documented in this encounter Visit Diagnoses Diagnosis Metastatic urothelial carcinoma Secondary malignant neoplasm of other urinary organs Lung mass Swelling, mass, or lump in chest Metastatic urothelial carcinoma Secondary malignant neoplasm of other urinary organs Lung mass Swelling, mass, or lump in chest documented in this encounter Care Teams Merchandising Professor Relationship Specialty Start Date End Date Eren Shah DNP PCP - General Family Medicine 03/20/21 06/10/22 documented as of this encounter
--- OUTSIDE RECORDS SUMMARY | 2023-11-21 15:58 | XMS_ITS | Encounter Summary ---
Author Organization [facility] [place] [address] Care Team Providers Care Hand Fretted Instrument Maker Name Role Phone Tavia Ramirez APRN Primary Care Provider [phone] Reason for Visit * Reason Comments Chemotherapy [id number] * Treatment/Therapy Plan Authorization (Routine) - Closed Specialty Diagnoses / Procedures Referred By Contac t Referred To Contact Hematology and Oncology Diagnoses Metastatic urothelial carcinoma Abnormal thyroid function test Procedures [id number] Jose Barnhart MD [address] [place] [address] DR HEMATOLOGY [place] [address] Jose Lange MD [address] [place] [address] DR HEMATOLOGY [place] [address] Referral ID Status Reason Start Date Expiration Date Visits Re quested Visits Authorized [id number] Closed 04/28/2022 06/24/2023 99 99 Encounter Details Date Type Department Care Team (Late st Contact Info) Description 07/23/2022 11:30 AM EDT Infusion Hematology Oncology at [address] [phone] Metastatic urothelial carcinoma Social History Tobacco Use [...] Progress Notes * Audrey Giron RN - 07/23/2022 11:30 AM EDT INFUSION THERAPY ADMINISTRATION NOTES DIAGNOSIS: Metastatic urothelial cancer and primary lung cancer CYCLE #22: Day 1 REASON FOR VISIT: Pembrolizumab SUBJECTIVE: Barb offers no complaints. Met with provider prior to infusion. OBJECTIVE: Port flushes with brisk blood return. LAB DATA: Done today at [facility] for treatment. IV ACCESS: Port accessed off site. Flushes readily with brisk blood return. Pre administration: Chemotherapy orders independently verified for drug name, route, and dosage per patient's height, weight and BSA by Audrey Aguirre, TORITO and Staff Pharmacist(s). REACTIONS (DESCRIPTION, TIME, [...] PM EDT Office Visit Hematology/Oncology at [address] [phone] Chase Mckay MD [facility] DR HEMATOLOGY [place] [address] documented as of this encounter Visit Diagnoses Diagnosis Metastatic urothelial carcinoma Secondary malignant neoplasm of other urinary organs documented in this encounter Administered Medications Inactive Administered Medications - up to 3 most recent administrations Medication Order MAR Action Action Date Dose Rate Site heparin (pf) (porcine) (100 units/mL) flush 5 mL syringe 500 Units 500 Units, Intravenous, ONCE PRN, Starting on Fri07/23/22 at 1128, Until Fri07/23/22 at 1513, Line Care, Refer to Intravenous (IV) Procedure: Accessing Implanted Vascular Access Devices (434) procedure and/or Intravenous (IV) Job Aid: Adult Flushing & Catheter Care (1651) job aid for additional information regarding guidelines and administration., Routine Given 07/23/2022 12:54 PM EDT 500 Units pembrolizumab (Keytruda) 200 mg in sodium chloride 0.9% 108 mL infusion 200 mg, Intravenous, ONCE, 1 dose, On Fri07/23/22 at 1245, Administer over 30 Minutes, Flush line with NS after each dose., This agent is restricted to outpatient use. Is this drug being given as an outpatient? Yes New Bag 07/23/2022 12:23 PM EDT 200 mg 216 mL/hr sodium chloride 0.9 % (flush) (BD PosiFlush Normal Saline 0.9) flush 5-20 mL 5-20 mL, Intravenous, EVERY 1 MIN PRN, Starting on Fri07/23/22 at 1128, Until Fri07/23/22 at 1513, Line Care, Flush pertains to all indwelling lines. Flush per protocol found in the job aid using the link provided on this medication record. Refer to Intravenous (IV) Job Aid: Adult Flushing & Catheter Care (9956) job aid for additional information regarding guidelines and administration., Routine Given 07/23/2022 12:53 PM EDT 20 mLs documented in this encounter Care Teams Hand Fretted Instrument Maker Relationship Specialty Start Date End Date Tavia Ramirez, ALESSANDRO [address] [place] [address] PCP - General Family Medicine 06/11/22 documented as of this encounter
--- OUTSIDE RECORDS SUMMARY | 2023-11-21 15:58 | XMS_ITS | Encounter Summary ---
Author Organization [facility] [place] [address] Care Team Providers Care Bead Forming Machine Set Up Operator Name Role Phone Eren Shah CHELSEA Primary Care Provider [phone] Reason for Visit * Reason Comments Chemotherapy Cycle 19, Day 1 - Pe mbrolizumab * Treatment/Therapy Plan Authorization (Routine) - Closed Specialty Diagnoses / Procedures Referred By Contac t Referred To Contact Hematology and Oncology Diagnoses Metastatic urothelial carcinoma Abnormal thyroid function test Procedures [id number] Jose Barnhart MD [address] [place] [address] [place] [address] Jose Lange MD [address] [place] [address] [place] [address] Referral ID Status Reason Start Date Expiration Date Visits Re quested Visits Authorized [id number] Closed 04/28/2022 06/24/2023 99 99 Encounter Details Date Type Department Care Team (Late st Contact Info) Description 05/14/2022 2:00 PM EST Infusion Hematology Oncology at [address] [phone] Metastatic urothelial carcinoma Social History [...] this encounter Progress Notes * Maria Luz Elise RN - 05/14/2022 2:00 PM EST INFUSION THERAPY ADMINISTRATION NOTES DIAGNOSIS: Metastatic urothelial cancer and primary lung cancer CYCLE #: Cycle 19, Day 1 - Pembrolizumab REASON FOR VISIT: To receive planned chemotherapy. SUBJECTIVE: Barb offers no complaints. OBJECTIVE: Seen by provider. Ready to treat. LAB DATA: WBC - 10.86, H/H - 10.4/34.3, Plt Ct - 634, ANC - 6.70, Lytes wnl, BUN/Cr - 21/1.8, CA++ - 8.9, TSH/1.18 IV ACCESS: Port accessed off site. Flushes [...] PLAN: Return to clinic in three weeks. * Maria Luz Elise RN - 05/14/2022 2:00 PM EST documented in this encounter Plan of Treatment Upcoming Encounters Date Type Department Care Team (Late st Contact Info) Description 12/08/2023 3:30 PM EDT Office Visit Hematology/Oncology at [address] [phone] Chase Mckay MD [facility] DR HEMATOLOGY [place] [address] documented as of this encounter Visit Diagnoses Diagnosis Metastatic urothelial carcinoma Secondary malignant neoplasm of other urinary organs documented in this encounter Administered Medications Inactive Administered Medications - up to 3 most recent administrations Medication Order MAR Action Action Date Dose Rate Site heparin (pf) (porcine) (100 units/mL) flush 5 mL syringe 500 Units 500 Units, Intravenous, ONCE PRN, Starting on Fri05/14/22 at 1411, Until Fri05/14/22 at 1738, Line Care, Refer to Intravenous (IV) Procedure: Accessing Implanted Vascular Access Devices (794) procedure and/or Intravenous (IV) Job Aid: Adult Flushing & Catheter Care (6909) job aid for additional information regarding guidelines and administration., Routine Given 05/14/2022 3:16 PM EST 500 Units pembrolizumab (Keytruda) 200 mg in sodium chloride 0.9% 108 mL infusion 200 mg, Intravenous, ONCE, 1 dose, On Fri05/14/22 at 1530, Administer over 30 Minutes, Flush line with NS after each dose., This agent is restricted to outpatient use. Is this drug being given as an outpatient? Yes New Bag 05/14/2022 2:43 PM EST 200 mg 216 mL/hr sodium chloride 0.9 % (flush) (BD PosiFlush Normal Saline 0.9) flush 5-20 mL 5-20 mL, Intravenous, EVERY 1 MIN PRN, Starting on Fri05/14/22 at 1411, Until Fri05/14/22 at 1738, Line Care, Flush pertains to all indwelling lines. Flush per protocol found in the job aid using the link provided on this medication record. Refer to Intravenous (IV) Job Aid: Adult Flushing & Catheter Care (3210) job aid for additional information regarding guidelines and administration., Routine Given 05/14/2022 3:16 PM EST 20 mLs sodium chloride 0.9% infusion 100 mL/hr, Intravenous, CONTINUOUS, Starting on Fri05/14/22 at 1430, Until Fri05/14/22 at 1738 New Bag 05/14/2022 2:18 PM EST 100 mL/hr 100 mL/hr documented in this encounter Care Teams Bead Forming Machine Set Up Operator Relationship Specialty Start Date End Date Eren Shah DNP PCP - General Family Medicine 03/20/21 06/10/22 documented as of this encounter
--- OUTSIDE RECORDS SUMMARY | 2023-11-21 15:58 | XMS_ITS | Encounter Summary ---
Author Organization [facility] Address [facility] [place] [address] Care Team Providers Care Automobile Upholstery Trim Installer Name Role Phone Eren Shah DNP Primary Care Provider [phone] Encounter Details Date Type Department Care Team (Latest Contact Info) Description 04/22/2022 Travel Social History Tobacco Use Types Packs/Day [...] PM EDT Office Visit Hematology/Oncology at [address] [phone] Chase Mckay MD [facility] DR [place] [address] documented as of this encounter Visit Diagnoses Not on filedocumented in this encounter Care Teams Automobile Upholstery Trim Installer Relationship Specialty Start Date End Date Eren Shah DNP PCP - General Family Medicine 03/20/21 06/10/22 documented as of this encounter
--- OUTSIDE RECORDS SUMMARY | 2023-11-21 15:58 | XMS_ITS | Encounter Summary ---
Author Organization [facility] Address [facility] [place] [address] Care Team Providers Care Manager Of Photography Name Role Phone Eren Shah DNP Primary Care Provider [phone] Encounter Details Date Type Department Care Team (Latest Contact Info) Description 05/14/2022 Travel Social History Tobacco Use Types Packs/Day [...] PM EDT Office Visit Hematology/Oncology at [address] [phone] Chase Mckay MD [facility] DR HEMATOLOGY [place] [address] documented as of this encounter Visit Diagnoses Not on filedocumented in this encounter Care Teams Manager Of Photography Relationship Specialty Start Date End Date Eren Shah DNP PCP - General Family Medicine 03/20/21 06/10/22 documented as of this encounter
--- OUTSIDE RECORDS SUMMARY | 2023-11-21 15:58 | XMS_ITS | Encounter Summary ---
Author Organization [facility] Address [facility] [place] [address] Care Team Providers Care Doll Eye Setter Name Role Phone James Tavia Foster APRN Primary Care Provider [phone] Encounter Details Date Type Department Care Team (Latest Contact Info) Description 07/23/2022 Travel Social History Tobacco Use Types Packs/Day [...] PM EDT Office Visit Hematology/Oncology at [address] [phone] Chase Mckay MD [facility] DR HEMATOLOGY [place] [address] documented as of this encounter Visit Diagnoses Not on filedocumented in this encounter Care Teams Doll Eye Setter Relationship Specialty Start Date End Date Tavia Ramirez [place] [address] [place] [address] PCP - General Family Medicine 06/11/22 documented as of this encounter
--- OUTSIDE RECORDS SUMMARY | 2023-11-21 15:58 | XMS_ITS | Encounter Summary ---
Author Organization [facility] Address [facility] [place] [address] Care Team Providers Care Value Analysis Coordinator Name Role Phone James Tavia Foster APRN Primary Care Provider [phone] Encounter Details Date Type Department Care Team (Late st Contact Info) Description 06/20/2022 Orders Only Hematology/Oncology at [address] [phone] Abena Ogden, RN Social History [...] PM EDT Office Visit Hematology/Oncology at [address] [phone] Chase Mckay MD [facility] DR HEMATOLOGY [place] [address] documented as of this encounter Visit Diagnoses Not on filedocumented in this encounter Care Teams Value Analysis Coordinator Relationship Specialty Start Date End Date Tavia Ramirez [place] [place] [address] PCP - General Family Medicine 06/11/22 documented as of this encounter
--- OUTSIDE RECORDS SUMMARY | 2023-11-21 15:58 | XMS_ITS | Encounter Summary ---
Author Organization [facility] Address [facility] [place] [address] Care Team Providers Care Candy Starch Mold Printer Name Role Phone Eren Shah CHELSEA Primary Care Provider [phone] Reason for Visit * Reason Onset Date Comments Pain 03/15/2022 Encounter Details Date Type Department Care Team (Late st Contact Info) Description 03/15/2022 Telephone Hematology/Oncology at [address] [phone] Margarita Watson, RN Pain Social History Tobacco Use Types Packs/Day Years [...] Miscellaneous Notes * Telephone Encounter - Margarita Watson, RN - 03/15/2022 9:20 AM EST Call to Daisha to ask that she call palliative care as Barb sees them. They are best to manage pain symptoms. She agreed with that plan. ----- Message from Belen Engel sent at 03/15/2022 8:47 AM EST ----- Barb Ashton's daughter called in concerned that the traMADoL (Ultram) 50 mg Tablet is not working for Barb's pain, she is also taking 500 mg of tylenol with the tramadol and still having break through pain (11/04). Daisha would like to know if the tramadol could be upped to a higher dose or if there is something else that he could be given. Best call back [phone](Daisha) documented in this encounter Plan of Treatment Upcoming Encounters Date Type Department Care Team (Late st Contact Info) Description 12/08/2023 3:30 PM EDT Office Visit Hematology/Oncology at [address] [phone] Chase Mckay MD [facility] [address] [place] [address] documented as of this encounter Visit Diagnoses Not on filedocumented in this encounter Care Teams Candy Starch Mold Printer Relationship Specialty Start Date End Date Eren Shah DNP PCP - General Family Medicine 03/20/21 06/10/22 documented as of this encounter
--- OUTSIDE RECORDS SUMMARY | 2023-11-21 15:58 | XMS_ITS | Encounter Summary ---
Author Organization [facility] Address [facility] [place] [address] Care Team Providers Care Ticket Puller Name Role Phone Eren Shah DNP Primary Care Provider [phone] Encounter Details Date Type Department Care Team (Latest Contact Info) Description 04/24/2022 Travel Social History Tobacco Use Types Packs/Day [...] Office Visit Hematology/Oncology at [address] [address] Chase Mckay MD [facility] DR HEMATOLOGY [place] [address] documented as of this encounter Visit Diagnoses Not on filedocumented in this encounter Care Teams Ticket Puller Relationship Specialty Start Date End Date Eren Shah DNP PCP - General Family Medicine 03/20/21 06/10/22 documented as of this encounter
--- OUTSIDE RECORDS SUMMARY | 2023-11-21 15:58 | XMS_ITS | Encounter Summary ---
[place] [address] Care Team Providers Care Stem Maker Name Role Phone Tavia Ramirez APRN Primary Care Provider [phone] Reason for Visit * Diagnostic Test (Routine) - Closed Specialty Diagnoses / Procedures Referred By Contjoslyn t Referred To Contact Radiology Diagnoses Metastatic urothelial carcinoma Lung mass Procedures NM PET CT Skull Base to Mid-thigh Abena Ogden, RN [address] [place] [address] [place] [address] [place] [address] Referral ID Status Reason Start Date Expiration Date V isits Requested Visits Authorized [id number] Closed Specialty Service Requested 05/14/2022 11/12/2023 1 1 Encounter Details Date Type Department Care Team (Latest Contact Info) Description 06/11/2022 1:19 PM EST - 06/11/2022 11:59 PM [facility] Hospital Encounter [place] [address] Abena Ogden production coordinator Disposition: Home Social History Tobacco Use Types [...] No 03/27/2021 Housing Stability Vital Sign Answer Rashanw e Recorded In the last 12 months, [...] 3:30 PM EDT Office Visit Hematology/Oncology at [address] [address] Chase Mckay MD [facility] DR [place] [address] documented as of this encounter Procedures Procedure Name Priority Date/Time Associated Diagnosis Comments NM PET CT SKULL BASE TO MID-THIGH (LCSR) Routine 06/11/2022 3:25 PM EST Metastatic urothelial carcinoma Lung mass POCT GLUCOSE Routine 06/11/2022 2:07 PM EST documented in this encounter Results * POCT Glucose (06/11/2022 2:07 PM EST) POC Glucose 92 65 - 199 mg/dL [facility] Comment: Supplemental ranges: <140 mg/dL before meals <180 mg/dL all other times of the day Blood 06/11/2022 2:07 PM EST 06/11/2022 2:07 PM EST Abena Ogden RN POINT OF CARE TEST O RDERABLES [facility] [place] [address] documented in this encounter Visit Diagnoses Not on filedocumented in this encounter Care Teams Stem Maker Relationship Specialty Start Date End Date Tavia Ramirez [place] [place] [address] PCP - General Family Medicine 06/11/22 documented as of this encounter
--- OUTSIDE RECORDS SUMMARY | 2023-11-21 15:58 | XMS_ITS | Encounter Summary ---
Author Organization [facility] Address [facility] [place] [address] Care Team Providers Care Laborer Tan House Name Role Phone Eren Shah DNP Primary Care Provider [phone] Encounter Details Date Type Department Care Team (Latest Contact Info) Description 05/29/2022 Travel Social History Tobacco Use Types Packs/Day [...] PM EDT Office Visit Hematology/Oncology at [address] [address] Chase Mckay MD [facility] DR [place] [address] documented as of this encounter Visit Diagnoses Not on filedocumented in this encounter Care Teams Laborer Tan House Relationship Specialty Start Date End Date Eren Shah DNP PCP - General Family Medicine 03/20/21 06/10/22 documented as of this encounter
--- OUTSIDE RECORDS SUMMARY | 2023-11-21 15:58 | XMS_ITS | Encounter Summary ---
Author Organization [facility] Address [facility] [place] [address] Care Team Providers Care Environmental Geologist Name Role Phone Eren Shah DNP Primary Care Provider [phone] Encounter Details Date Type Department Care Team (Latest Contact Info) Description 03/31/2022 Travel Social History Tobacco Use Types Packs/Day [...] PM EDT Office Visit Hematology/Oncology at [address] [address] Chase Mckay MD [facility] [address] HEMATOLOGY [place] [address] documented as of this encounter Visit Diagnoses Not on filedocumented in this encounter Care Teams Environmental Geologist Relationship Specialty Start Date End Date Eren Shah DNP PCP - General Family Medicine 03/20/21 06/10/22 documented as of this encounter
--- OUTSIDE RECORDS SUMMARY | 2023-11-21 15:58 | XMS_ITS | Encounter Summary ---
Author Organization [facility] Address [facility] [place] [address] Care Team Providers Care Curb Setter Name Role Phone James Tavia Foster APRN Primary Care Provider [phone] Encounter Details Date Type Department Care Team (Latest Contact Info) Description 07/16/2022 Travel Social History Tobacco Use Types Packs/Day [...] PM EDT Office Visit Hematology/Oncology at [address] [address] Chase Mckay MD [facility] DR HEMATOLOGY [place] [address] documented as of this encounter Visit Diagnoses Not on filedocumented in this encounter Care Teams Curb Setter Relationship Specialty Start Date End Date Tavia Ramirez [place] [place] [address] PCP - General Family Medicine 06/11/22 documented as of this encounter
--- OUTSIDE RECORDS SUMMARY | 2023-11-21 15:58 | XMS_ITS | Encounter Summary ---
Author Organization [facility] Address [facility] [place] [address] Care Team Providers Care Benzene Worker Name Role Phone Eren Shah DNP Primary Care Provider [phone] Encounter Details Date Type Department Care Team (Late st Contact Info) Description 04/23/2022 10:00 AM EST Office Visit Hematology/Oncology at [address] [phone] Jose Lange MD [facility] [address] HEMATOLOGY [place] [address] Abena Ogden, RN Metastatic urothelial carcinoma; Abnormal thyroid function test Social History Tobacco [...] Sign Reading Time Taken Comments Blood Pressure 114/67 04/23/2022 9:51 AM EST Pulse 99 04/23/2022 9:51 AM EST Temperature 37 ??C (98.6 ??F) 04/23/2022 9:51 AM EST Respiratory Rate 16 04/23/2022 9:51 AM EST Oxygen Saturation 98% 04/23/2022 9:51 AM EST Inhaled Oxygen Concentration - - Weight 67 kg (147 lb 9.6 oz) 04/23/2022 9:51 AM EST Height 163.8 cm (5' 4.49) 04/23/2022 9:51 AM ES T Body Mass Index 24.95 04/23/2022 9:51 AM EST documented in this encounter Progress Notes * Abena Ogden, ALESSANDRO - 04/23/2022 10:00 AM EST Images from the original note were not included. Hematology & Medical Oncology [place] [id number] Barb returns today to continue treatment for [...] distinct lung primary. She was seen by pe manager , who recommended rigid bronchoscopy withattempts to [...] HTN. She wasdischarged home on 05/01/21 INTERVAL HISTORY(04/23/22)- Barb returns today for followup of her bladder cancer and next dose ofpembrolizumab. Denies any fevers or chills. Both nephrostomy tubes are draining well now. She is scheduled for nephrostomy tube replacement tomorrow. She is having slight pressure around the right tube but she thinks she slept on it last night. Urine is yellow with mucus. She occasionally gets someblood in urine. She is using Tramadol for pain as needed with good control. Bowel movements are regular. No nausea or vomiting. She has a slight rash on forearms and upper back- she does have itchingafter her infusions relieved by cortisone cream. No shortness of breath, chest pain or edema. No oth er focal complaints today. PMH: No interval changes [...] History: No interval changes since last visit [id number] smoking history quit 6 years ago, does not drink alcohol, used to live independently, but currently moved to her daughters house. Family History: No interval changes since last visit Brother had liver cancer, mother had leukemia, maternal aunt had colon cancer in cousin had bladdercancer Allergies: No Known Allergies Medications: Your Medications Accurate as of April 23, 2022 10:20 AM. If you have any questions, ask [...] axillary nodes normal Neurologic: Normal Vitals BP 114/67 (Patient Position: Sitting) Pulse 99 Temp 37 ??C (98.6 ??F) (Temporal) Resp 16 Ht 163.8 cm (5' 4.49) Wt 67 kg (147 lb 9.6 oz) SpO2 98% BMI 24.95 kg/m?? Pathology: Molecular pathology KRAS p.G12C c.34G>T [...] The assay was performed according to the final inspection supervisor's ??instructions using Anti-PD-L1 (22C3, pharmDX) antibody. Electronically signed by: ?Herbert Ford MD Verified: ??04/11/2021 8:14 ?? Pathologist Performed at: ??[facility] [place], [place], [place] ? Surgical Pathology DIAGNOSIS A - Lung, ??left lower lobe mass, debulking: ?? - Adenocarcinoma, consistent with lung primary. Electronically signed by: ?Sana Dowell MD Verified: ??04/06/2021 11:16 ??Pathologist Performed at: ??[place] [place], [place], [place] DISCUSSION Sections show an invasive, predominantly [...] propria. - No muscularis propria identified. Labs: 04/23/22- WBC-9.74 Hgb/Hct-11.3/35.5 Plt-538 ANC-6.03 Na-138 K+-4.0 [...] of presumably metastatic urothelial carcinoma which include [place] based chemotherapy versus immunotherapy. Due to her [...] pembrolizumab. 04/23/22- Barb is here for C 18 pembrolizumab. Labs and toxicities assessed and are acceptable to continue treatment today. # Low back pain- She is taking Tramadol 50 mg(1/2) every 12 hours with tylenol in between if needed. She follows with Palliative Care. Tramadol prescription renewed today. #Abnormal thyroid function: levothyroxine is 75 mcg daily.. Will monitor thyroid function. TSH improved- 1.06 FT4-1.38 #Renal insufficiency: Cr 1.6 today, stable, Creatinine 3.0 on admission. She has bilateral nephrostomy tubes. tube exchange will be tomorrow- 04/24/22. # Anemia- mild- asymptomatic. Plan: 1. C18 Pembrolizumab today 2. Continue levothyroxine 75 mcg a day. 3. Tramadol prescription 3. Next visit with CBC, CMP, TSH, [...] 3:30 PM EDT Office Visit Hematology/Oncology at [address] [phone] Chase Mckay MD [facility] DR [place]ATOLOG[place] [address] documented as of this encounter Visit Diagnoses Diagnosis Metastatic urothelial carcinoma Secondary malignant neoplasm of other urinary organs Abnormal thyroid function test Nonspecific abnormal results of thyroid function study documented in this encounter Care Teams Benzene Worker Relationship Specialty Start Date End Date Eren Shah DNP PCP - General Family Medicine 03/20/21 06/10/22 documented as of this encounter
--- OUTSIDE RECORDS SUMMARY | 2023-11-21 15:58 | XMS_ITS | Encounter Summary ---
[place] [address] Care Team Providers Care Wildlife Manager Name Role Phone Tavia Ramirez APRN Primary Care Provider [phone] Reason for Referral * Diagnostic Test (Routine) - Closed Specialty Diagnoses / Procedures Referred By Contac t Referred To Contact Radiology Diagnoses Metastatic urothelial carcinoma Lung mass Procedures NM PET CT Skull Base to Mid-thigh Abena Ogden RN [address] [place] [address] [place] [address] [place] [address] Referral ID Status Reason Start Date Expiration Date V isits Requested Visits Authorized [id number] Closed Specialty Service Requested 05/14/2022 11/12/2023 1 1 Reason for Visit * Diagnostic Test (Routine) - Closed Specialty Diagnoses / Procedures Referred By Contac t Referred To Contact Radiology Diagnoses Metastatic urothelial carcinoma Lung mass Procedures NM PET CT Skull Base to Mid-thigh Abena Ogden RN [address] [place] [address] [place] [address] [place] [address] Referral ID Status Reason Start Date Expiration Date V isits Requested Visits Authorized [id number] Closed Specialty Service Requested 05/14/2022 11/12/2023 1 1 Encounter Details Date Type Department Care Team (Latest Contact Info) Description 06/11/2022 1:19 PM EST - 06/11/2022 11:59 PM EST Hospital En[place] [phone] Abena Ogden, RN Metastatic urothelial carcinoma; Lung mass Discharge Disposition: Home Social History Tobacco Use [...] PM EDT Office Visit Hematology/Oncology at [address] [phone] Chase Mckay MD [facility] HEMATOLOGY [place] [address] documented as of this encounter Procedures Procedure Name Priority Date/Time Associated Diagnosis Comments NM PET CT SKULL BASE TO MID-THIGH (LCSR) Routine 06/11/2022 3:25 PM EST Metastatic urothelial carcinoma Lung mass documented in this encounter Results * (ABNORMAL) NM PET [...] who have questions please contact the health career agent that requested your imaging first. ? Electronically signed by: Billy Anderson MD, [facility] ([phone]), at 06/13/2022 3:02 PM Narrative 06/13/2022 3:02 PM EST EXAMINATION: NM PET CT STANDARD SKULL BASE TO MID-THIGH CLINICAL HISTORY: Urologic cancer, assess treatment response - Include more detail below; restaging metastatic bladder cancer restaging scan- on immunotherapy TECHNIQUE: Following IV injection of 00-moscuf-5-deoxyglucose (FDG) a standard uptake of approximately 60 [...] lump in chest documented in this encounter Administered Medications Inactive Administered Medications - up to 3 most recent administrations Medication Order MAR Action Action Date Dose Rate Site fludeoxyglucose (F-18) FDG injection 0-20 mCi 0-20 mCi, Intravenous, ONCE PRN, 1 dose, Starting on 06/11/22 at 1418, Until 06/11/22 at 1415, Per Protocol, Radiology Contrast, Routine Given 06/11/2022 2:15 PM EST 10.2 mCi Left Arm documented in this encounter Care Teams Wildlife Manager Relationship Specialty Start Date End Date Tavia Ramirez, HEALTH INFORMATION TECHNOLOGIST [place] [address] PCP - General Family Medicine 06/11/22 documented as of this encounter
--- OUTSIDE RECORDS SUMMARY | 2023-11-21 15:58 | XMS_ITS | Encounter Summary ---
Author Organization [facility] [place] [address] Care Team Providers Care Refinery Operator Helper Crude Unit Name Role Phone Eren Shah CHELSEA Primary Care Provider [phone] Reason for Visit * Reason Comments Chemotherapy [id number] * Treatment/Therapy Plan Authorization (Routine) - Closed Specialty Diagnoses / Procedures Referred By Contac t Referred To Contact Hematology and Oncology Diagnoses Metastatic urothelial carcinoma Abnormal thyroid function test Procedures [id number] Jose Barnhart MD [address] [place] [address] [place] [address] Jose Lange MD [address] [place] [address] [place] [address] Referral ID Status Reason Start Date Expiration Date Visits Re quested Visits Authorized [id number] Closed 04/28/2022 06/24/2023 99 99 Encounter Details Date Type Department Care Team (Late st Contact Info) Description 04/23/2022 10:30 AM EST Infusion Hematology Oncology at [address] [phone] Metastatic urothelial carcinoma Social History Tobacco Use [...] Progress Notes * Audrey Giron RN - 04/23/2022 10:30 AM EST INFUSION THERAPY ADMINISTRATION NOTES DIAGNOSIS: Urothelial CA CYCLE #18: Day 1 REASON FOR VISIT: Pembrolizumab Infusion SUBJECTIVE Ms. Bullard is here for C18D1 Pembrolizumab. She is overall doing well and has no questions/concerns.Seen by provider today and found ready for treatment. OBJECTIVE LAB DATA: Labs drawn today at [facility] and reviewed by this RN. No holds per treatment plan. IV ACCESS: Mediport accessed by [facility] Pre administration: Chemotherapy orders independently verified for drug name, route, and dosage per patient's height, weight and BSA by Audrey Aguirre, TORITO and pharmacist on-site. REACTIONS (DESCRIPTION, TIME, INTERVENTION AND EFFECTIVENESS) none ASSESSMENT Ms Bullard was awake, alert and tolerated treatment well. PLAN Return to clinic in 3 weeks for consideration of C19. Patient was reminded to call in the interim with any questions/concerns. documented in this encounter Plan of Treatment Upcoming Encounters Date Type Department Care Team (Late st Contact Info) Description 12/08/2023 3:30 PM EDT Office Visit Hematology/Oncology at [address] [phone] Chase Mckay MD [facility] [place] [address] documented as of this encounter Visit Diagnoses Diagnosis Metastatic urothelial carcinoma Secondary malignant neoplasm of other urinary organs documented in this encounter Administered Medications Inactive Administered Medications - up to 3 most recent administrations Medication Order MAR Action Action Date Dose Rate Site heparin (pf) (porcine) (100 units/mL) flush 5 mL syringe 500 Units 500 Units, Intravenous, ONCE PRN, Starting on Fri04/23/22 at 1019, Until Fri04/23/22 at 1526, Line Care, Refer to Intravenous (IV) Procedure: Accessing Implanted Vascular Access Devices (564) procedure and/or Intravenous (IV) Job Aid: Adult Flushing & Catheter Care (4205) job aid for additional information regarding guidelines and administration., Routine Given 04/23/2022 12:44 PM EST 500 Units pembrolizumab (Keytruda) 200 mg in sodium chloride 0.9% 108 mL infusion 200 mg, Intravenous, ONCE, 1 dose, On e 04/23/22 at 1145, Administer over 30 Minutes, Flush line with NS after each dose., This agent is restricted to outpatient use. Is this drug being given as an outpatient? Yes New Bag 04/23/2022 12:14 PM EST 200 mg 216 mL/hr sodium chloride 0.9 % (flush) (BD PosiFlush Normal Saline 0.9) flush 5-20 mL 5-20 mL, Intravenous, EVERY 1 MIN PRN, Starting on e 04/23/22 at 1019, Until Tu04/23/22 at 1526, Line Care, Flush pertains to all indwelling lines. Flush per protocol found in the job aid using the link provided on this medication record. Refer to Intravenous (IV) Job Aid: Adult Flushing & Catheter Care (4810) job aid for additional information regarding guidelines and administration., Routine Given 04/23/2022 12:44 PM EST 20 mLs sodium chloride 0.9% infusion 100 mL/hr, Intravenous, CONTINUOUS, Starting on 04/23/22 at 1045, Until Fri04/23/22 at 1526 New Bag 04/23/2022 10:30 AM EST 100 mL/hr 100 mL/hr documented in this encounter Care Teams Refinery Operator Helper Crude Unit Relationship Specialty Start Date End Date Eren Shah DNP PCP - General Family Medicine 03/20/21 06/10/22 documented as of this encounter
--- OUTSIDE RECORDS SUMMARY | 2023-11-21 15:58 | XMS_ITS | Encounter Summary ---
Author Organization [place] [address] Care Team Providers Care Media Marketing Coordinator Name Role Phone Eren Shah CHELSEA Primary Care Provider [phone] Reason for Visit * Reason Comments Chemotherapy [id number] * Treatment/Therapy Plan Authorization (Routine) - Closed Specialty Diagnoses / Procedures Referred By Contac t Referred To Contact Hematology and Oncology Diagnoses Metastatic urothelial carcinoma Abnormal thyroid function test Procedures [id number] Jose Barnhart MD [address] [place] [address] DR [place] [address] Jose Lange MD [address] [place] [address] DR HEMATOLOGY [place] [address] Referral ID Status Reason Start Date Expiration Date Visits Re quested Visits Authorized [id number] Closed 04/28/2022 06/24/2023 99 99 Encounter Details Date Type Department Care Team (Late st Contact Info) Description 03/12/2022 11:30 AM EST Infusion Hematology Oncology at [address] [phone] Metastatic urothelial carcinoma Social History Tobacco Use [...] Progress Notes * Audrey Giron RN - 03/12/2022 11:30 AM EST INFUSION THERAPY ADMINISTRATION NOTES DIAGNOSIS: Urothelial CA CYCLE #16: Day 1 REASON FOR VISIT: Pembrolizumab Infusion SUBJECTIVE Ms. Bullard is here for C16D1 Pembrolizumab. She is overall doing well and has no questions/concerns.Seen by provider today and found ready for treatment. OBJECTIVE LAB DATA: Labs drawn today at [facility] and reviewed by this RN. No holds per treatment plan. IV ACCESS: Mediport accessed by [facility] but unable to get blood return. Instilled 2mL of cathflo priorto infusion; after 1hr able to obtain brisk blood return. After infusion, flushed with 20cc NS and 500 unit heparin before being deaccessed. Pre administration: Chemotherapy orders independently verified for drug name, route, and dosage per patient's height, weight and BSA by Audrey Aguirre, TORITO and pharmacist on-site. REACTIONS (DESCRIPTION, TIME, INTERVENTION AND EFFECTIVENESS) none ASSESSMENT Ms Bullard was awake, alert and tolerated treatment well. PLAN Return to clinic in 3 weeks for consideration of C17. Patient was reminded to call in the interim with any questions/concerns. documented in this encounter Plan of Treatment Upcoming Encounters Date Type Department Care Team (Late st Contact Info) Description 12/08/2023 3:30 PM EDT Office Visit Hematology/Oncology at [address] [phone] Cahse Mckay MD [facility] DR [place]EMAT[place] [address] documented as of this encounter Visit Diagnoses Diagnosis Metastatic urothelial carcinoma Secondary malignant neoplasm of other urinary organs documented in this encounter Administered Medications Inactive Administered Medications - up to 3 most recent administrations Medication Order MAR Action Action Date Dose Rate Site alteplase (Cathflo) injection 2 mg 2 mg, Intravenous, ONCE PRN, Starting on Fri03/12/22 at 1027, Until Fri03/12/22 at 1618, Line Occlusion, Refer to Cathflo Activase (Alteplase) Administration policy for additional information regarding guidelines and administration., Routine Given 03/12/2022 11:15 AM EST 2 mg heparin (pf) (porcine) (100 units/mL) flush 5 mL syringe 500 Units 500 Units, Intravenous, ONCE PRN, Starting on Fri03/12/22 at 1230, Until Fri03/12/22 at 1618, Line Care, Refer to Intravenous (IV) Procedure: Accessing Implanted Vascular Access Devices (844) procedure and/or Intravenous (IV) Job Aid: Adult Flushing & Catheter Care (1749) job aid for additional information regarding guidelines and administration., Routine Given 03/12/2022 1:54 PM EST 500 Units pembrolizumab (Keytruda) 200 mg in sodium chloride 0.9% 108 mL infusion 200 mg, Intravenous, ONCE, 1 dose, On Fri03/12/22 at 1400, Administer over 30 Minutes, Flush line with NS after each dose., This agent is restricted to outpatient use. Is this drug being given as an outpatient? Yes New Bag 03/12/2022 1:19 PM EST 200 mg 216 mL/hr sodium chloride 0.9 % (flush) (BD PosiFlush Normal Saline 0.9) flush 5-20 mL 5-20 mL, Intravenous, EVERY 1 MIN PRN, Starting on Fri03/12/22 at 1230, Until Fri03/12/22 at 1618, Line Care, Flush pertains to all indwelling lines. Flush per protocol found in the job aid using the link provided on this medication record. Refer to Intravenous (IV) Job Aid: Adult Flushing & Catheter Care (5136) job aid for additional information regarding guidelines and administration., Routine Given 03/12/2022 1:54 PM EST 20 mLs sodium chloride 0.9% infusion 100 mL/hr, Intravenous, CONTINUOUS, Starting on Fri03/12/22 at 1300, Until Fri03/12/22 at 1618 New Bag 03/12/2022 12:45 PM EST 100 mL/hr 100 mL/hr documented in this encounter Care Teams Media Marketing Coordinator Relationship Specialty Start Date End Date Eren Shah DNP PCP - General Family Medicine 03/20/21 06/10/22 documented as of this encounter
--- OUTSIDE RECORDS SUMMARY | 2023-11-21 15:58 | XMS_ITS | Encounter Summary ---
Author Organization [facility] Address [facility] [address] Care Team Providers Care Polymerization Oven Operator Name Role Phone Eren Shah DNP Primary Care Provider [phone] Encounter Details Date Type Department Care Team (Latest Contact Info) Description 06/04/2022 Travel Social History Tobacco Use Types Packs/Day [...] PM EDT Office Visit Hematology/Oncology at [address] [phone] Chase Mckay MD [facility] DR [place]EMATOLOGY [place] [address] documented as of this encounter Visit Diagnoses Not on filedocumented in this encounter Care Teams Polymerization Oven Operator Relationship Specialty Start Date End Date Eren Shah DNP PCP - General Family Medicine 03/20/21 06/10/22 documented as of this encounter
--- OUTSIDE RECORDS SUMMARY | 2023-11-21 15:58 | XMS_ITS | Encounter Summary ---
Author Organization [facility] Address [facility] [place] [address] Care Team Providers Care Manager Commercial Name Role Phone Eren Shah DNP Primary Care Provider [phone] Encounter Details Date Type Department Care Team (Latest Contact Info) Description 05/08/2022 Travel Social History Tobacco Use Types Packs/Day [...] PM EDT Office Visit Hematology/Oncology at [address] [phone] Chase Mckay MD [facility] DR [place] [address] documented as of this encounter Visit Diagnoses Not on filedocumented in this encounter Care Teams Manager Commercial Relationship Specialty Start Date End Date Eren Shah DNP PCP - General Family Medicine 03/20/21 06/10/22 documented as of this encounter
--- OUTSIDE RECORDS SUMMARY | 2023-11-21 15:58 | XMS_ITS | Encounter Summary ---
Author Organization [facility] Address [facility] [place] [address] Care Team Providers Care Long Goods Drier Name Role Phone Tavia Ramirez APRN Primary Care Provider [phone] Encounter Details Date Type Department Care Team (Late st Contact Info) Description 06/26/2022 Telephone Hematology/Oncology at [address] [phone] Maya Pinzon Social History Tobacco Use Types Packs/Day Years [...] encounter Miscellaneous Notes * Telephone Encounter - Maya Pinzon - 06/26/2022 9:51 AM EST I called and confirmed the infusion with labs on 07/02 and the appt on 07/23. Letter also sent for 07.23 appt documented in this encounter Plan of Treatment Upcoming Encounters Date Type Department Care Team (Late st Contact Info) Description 12/08/2023 3:30 PM EDT Office Visit Hematology/Oncology at [address] [phone] Chase Mckay MD [facility] DR [place] [address] documented as of this encounter Visit Diagnoses Not on filedocumented in this encounter Care Teams Long Goods Drier Relationship Specialty Start Date End Date Tavia Ramirez APRN [facility] [place] [address] PCP - General Family Medicine 06/11/22 documented as of this encounter
--- OUTSIDE RECORDS SUMMARY | 2023-11-21 15:58 | XMS_ITS | Encounter Summary ---
Author Organization [facility] Address [facility] [place] [address] Care Team Providers Care Retail Pos Specialist Name Role Phone Eren Shah DNP Primary Care Provider [phone] Encounter Details Date Type Department Care Team (Latest Contact Info) Description 04/06/2022 Travel Social History Tobacco Use Types Packs/Day [...] PM EDT Office Visit Hematology/Oncology at [address] [phone] Chase Mckay MD [facility] DR [place] [address] documented as of this encounter Visit Diagnoses Not on filedocumented in this encounter Care Teams Retail Pos Specialist Relationship Specialty Start Date End Date Eren Shah DNP PCP - General Family Medicine 03/20/21 06/10/22 documented as of this encounter
--- OUTSIDE RECORDS SUMMARY | 2023-11-21 15:58 | XMS_ITS | Encounter Summary ---
Author Organization [facility] [place] [address] Care Team Providers Care House Shorer Name Role Phone Tavia Ramirez APRN Primary Care Provider [phone] Reason for Visit * Reason Comments Chemotherapy [id number] * Treatment/Therapy Plan Authorization (Routine) - Closed Specialty Diagnoses / Procedures Referred By Contac t Referred To Contact Hematology and Oncology Diagnoses Metastatic urothelial carcinoma Abnormal thyroid function test Procedures [id number] Jose Barnhart MD [address] [place] [address] DR [place] [address] Jose Lange MD [address] [place] [address] DR HEMATOLOGY [place] [address] Referral ID Status Reason Start Date Expiration Date Visits Re quested Visits Authorized [id number] Closed 04/28/2022 06/24/2023 99 99 Encounter Details Date Type Department Care Team (Late st Contact Info) Description 07/02/2022 1:00 PM EST Infusion Hematology Oncology at [address] [phone] Metastatic urothelial carcinoma Social History Tobacco Use [...] Sign Reading Time Taken Comments Blood Pressure 130/62 07/02/2022 12:50 PM EST Pulse 82 07/02/2022 12:41 PM EST Temperature 35.8 ??C (96.4 ??F) 07/02/2022 1 2:41 PM EST Respiratory Rate 16 07/02/2022 12:4 1 PM EST Oxygen Saturation 100% 07/02/2022 12: 41 PM EST Inhaled Oxygen Concentration - - Weight 68.9 kg (151 lb 12.8 oz) 023 12:41 PM EST Height - - Body Mass Index 25.66 06/25/2022 1:31 PM EST documented in this encounter Progress Notes * Audrey Giron RN - 07/02/2022 1:00 PM EST INFUSION THERAPY ADMINISTRATION NOTES DIAGNOSIS: Metastatic urothelial cancer and primary lung cancer CYCLE #21: Day 1 REASON FOR VISIT: Pembrolizumab SUBJECTIVE: Barb offers no complaints. [facility] unable to obtain blood return from mediport after accessing. Obtained labs PIV. OBJECTIVE: Unable to obtain blood return upon arrival to infusion room. Cathflo instilled and after 1 hour, able to obtain brisk blood return. LAB DATA: Done today at [facility] and [facility] for treatment. IV ACCESS: Port accessed off site. Flushes readily with brisk blood return after cathflo. Pre administration: Chemotherapy orders independently verified for drug name, route, and dosage per patient's height, weight and BSA by Audrey Aguirre RN and Staff Pharmacist(s). REACTIONS (DESCRIPTION, TIME, [...] PM EDT Office Visit Hematology/Oncology at [address] [phone] Chase Mckay MD [facility] DR [place] [address] documented as of this encounter Visit Diagnoses Diagnosis Metastatic urothelial carcinoma Secondary malignant neoplasm of other urinary organs documented in this encounter Administered Medications Inactive Administered Medications - up to 3 most recent administrations Medication Order MAR Action Action Date Dose Rate Site alteplase (Cathflo) injection 2 mg 2 mg, Intravenous, ONCE PRN, Starting on Fri07/02/22 at 1212, Until Fri07/02/22 at 1648, Line Occlusion, Refer to Cathflo Activase (Alteplase) Administration policy for additional information regarding guidelines and administration., Routine Given 07/02/2022 12:48 PM EST 2 mg heparin (pf) (porcine) (100 units/mL) flush 5 mL syringe 500 Units 500 Units, Intravenous, ONCE PRN, Starting on Fri07/02/22 at 1255, Until Fri07/02/22 at 1648, Line Care, Refer to Intravenous (IV) Procedure: Accessing Implanted Vascular Access Devices (654) procedure and/or Intravenous (IV) Job Aid: Adult Flushing & Catheter Care (4785) job aid for additional information regarding guidelines and administration., Routine Given 07/02/2022 2:40 PM EST 500 Units pembrolizumab (Keytruda) 200 mg in sodium chloride 0.9% 108 mL infusion 200 mg, Intravenous, ONCE, 1 dose, On Fri07/02/22 at 1415, Administer over 30 Minutes, Flush line with NS after each dose., This agent is restricted to outpatient use. Is this drug being given as an outpatient? Yes New Bag 07/02/2022 2:08 PM EST 200 mg 216 mL/hr sodium chloride 0.9 % (flush) (BD PosiFlush Normal Saline 0.9) flush 5-20 mL 5-20 mL, Intravenous, EVERY 1 MIN PRN, Starting on Fri07/02/22 at 1255, Until Fri07/02/22 at 1648, Line Care, Flush pertains to all indwelling lines. Flush per protocol found in the job aid using the link provided on this medication record. Refer to Intravenous (IV) Job Aid: Adult Flushing & Catheter Care (0944) job aid for additional information regarding guidelines and administration., Routine Given 07/02/2022 2:40 PM EST 20 mLs documented in this encounter Care Teams House Shorer Relationship Specialty Start Date End Date Tavia Ramirez APRN [facility] [address] PCP - General Family Medicine 06/11/22 documented as of this encounter
--- OUTSIDE RECORDS SUMMARY | 2023-11-21 15:58 | XMS_ITS | Encounter Summary ---
Author Organization [facility] [place] [address] Care Team Providers Care Electrophysiology Technician Name Role Phone Eren Shah CHELSEA Primary Care Provider [phone] Reason for Visit * Reason Comments Chemotherapy C17D1 pembrolizumab * Treatment/Therapy Plan Authorization (Routine) - Closed Specialty Diagnoses / Procedures Referred By Contac t Referred To Contact Hematology and Oncology Diagnoses Metastatic urothelial carcinoma Abnormal thyroid function test Procedures [id number] Jose Barnhart MD [address] [place] [address] [place] [address] Jose Lange MD [address] [place] [address] [place] [address] Referral ID Status Reason Start Date Expiration Date Visits Re quested Visits Authorized [id number] Closed 04/28/2022 06/24/2023 99 99 Encounter Details Date Type Department Care Team (Late st Contact Info) Description 04/02/2022 11:00 AM EST Infusion Hematology Oncology at [address] [phone] Metastatic urothelial carcinoma Social History [...] Progress Notes * Hodan Jean, RN - 04/02/2022 11:00 AM EST INFUSION THERAPY ADMINISTRATION NOTES DIAGNOSIS: Urothelial CA CYCLE #17: Day 1 REASON FOR VISIT: Pembrolizumab Infusion SUBJECTIVE Ms. Bullard is here for C17D1 Pembrolizumab. She is overall doing well and has no questions/concerns.Seen by provider today and found ready for treatment. OBJECTIVE LAB DATA: Labs drawn today at [facility] and reviewed by this RN. No holds per treatment plan. IV ACCESS: Mediport accessed by [facility] Pre administration: Chemotherapy orders independently verified for drug name, route, and dosage per patient's height, weight and BSA by Hodan Jean, TORITO and pharmacist on-site. REACTIONS (DESCRIPTION, TIME, INTERVENTION AND EFFECTIVENESS) none ASSESSMENT Ms uBllard was awake, alert and tolerated treatment well. PLAN Return to clinic in 3 weeks for consideration of C18. Patient was reminded to call in the interim with any questions/concerns. documented in this encounter Plan of Treatment Upcoming Encounters Date Type Department Care Team (Late st Contact Info) Description 12/08/2023 3:30 PM EDT Office Visit Hematology/Oncology at [address] [phone] Chase Mckay MD [facility] DR HEMATOLOGY [place] [address] documented as of this encounter Visit Diagnoses Diagnosis Metastatic urothelial carcinoma Secondary malignant neoplasm of other urinary organs documented in this encounter Administered Medications Inactive Administered Medications - up to 3 most recent administrations Medication Order MAR Action Action Date Dose Rate Site heparin (pf) (porcine) (100 units/mL) flush 5 mL syringe 500 Units 500 Units, Intravenous, ONCE PRN, Starting on Fri04/02/22 at 1058, Until Fri04/02/22 at 1429, Line Care, Refer to Intravenous (IV) Procedure: Accessing Implanted Vascular Access Devices (184) procedure and/or Intravenous (IV) Job Aid: Adult Flushing & Catheter Care (4217) job aid for additional information regarding guidelines and administration., Routine Given 04/02/2022 12:13 PM EST 500 Units pembrolizumab (Keytruda) 200 mg in sodium chloride 0.9% 108 mL infusion 200 mg, Intravenous, ONCE, 1 dose, On 04/02/22 at 1215, Administer over 30 Minutes, Flush line with NS after each dose., This agent is restricted to outpatient use. Is this drug being given as an outpatient? Yes New Bag 04/02/2022 11:37 AM EST 200 mg 216 mL/hr sodium chloride 0.9 % (flush) (BD PosiFlush Normal Saline 0.9) flush 5-20 mL 5-20 mL, Intravenous, EVERY 1 MIN PRN, Starting on 04/02/22 at 1058, Until 04/02/22 at 1429, Line Care, Flush pertains to all indwelling lines. Flush per protocol found in the job aid using the link provided on this medication record. Refer to Intravenous (IV) Job Aid: Adult Flushing & Catheter Care (1757) job aid for additional information regarding guidelines and administration., Routine Given 04/02/2022 12:13 PM EST 20 mLs sodium chloride 0.9% infusion 100 mL/hr, Intravenous, CONTINUOUS, Starting on Fri04/02/22 at 1115, Until Fri04/02/22 at 1429 New Bag 04/02/2022 11:11 AM EST 100 mL/hr 100 mL/hr documented in this encounter Care Teams Electrophysiology Technician Relationship Specialty Start Date End Date Eren Shah DNP PCP - General Family Medicine 03/20/21 06/10/22 documented as of this encounter
--- OUTSIDE RECORDS SUMMARY | 2023-11-21 15:58 | XMS_ITS | Encounter Summary ---
Author Organization [facility] Address [facility] [place] [address] Care Team Providers Care County Treasurer Name Role Phone James Tavia Foster APRN Primary Care Provider [phone] Encounter Details Date Type Department Care Team (Late st Contact Info) Description 07/23/2022 11:00 AM EDT Office Visit Hematology/Oncology at [address] [phone] Abena Ogden RN Metastatic urothelial carcinoma; Primary lung adenocarcinoma, [...] Sign Reading Time Taken Comments Blood Pressure 126/64 07/23/2022 10:54 AM EDT Pulse 87 07/23/2022 10:54 AM EDT Temperature 36.6 ??C (97.8 ??F) 07/23/2022 1 0:54 AM EDT Respiratory Rate 16 07/23/2022 10:5 4 AM EDT Oxygen Saturation 99% 07/23/2022 10: 54 AM EDT Inhaled Oxygen Concentration - - Weight 68.9 kg (151 lb 12.8 oz) 023 10:54 AM EDT Height 163.8 cm (5' 4.49) 07/23/2022 1 0:54 AM EDT Body Mass Index 25.66 07/23/2022 10:54 AM EDT documented in this encounter Progress Notes * Abena Ogden, ALESSANDRO - 07/23/2022 11:00 AM EDT Images from the original note were not included. Hematology & Medical Oncology [place] [id number] Barb returns today to continue treatment for [...] distinct lung primary. She was seen by category director , who recommended rigid bronchoscopy withattempts to [...] HTN. She wasdischarged home on 05/01/21 INTERVAL HISTORY(07/23/22)- Barb returns today for followup of her bladder/lung cancer and next dose of pembrolizumab. Overall feeling well today. She caught her right nephrostomy tube last week and it got pulled and was really sore for a few days and she had some bleeding but that has improved. She has an appointment to have them exchanged on Friday. She did have some hematuria but that has resol rashard. Both nephrostomy tubes are draining well now. Urine is clear yellow with mucus. She occasionally gets some pain in her left side especially if she sleeps on that side. She uses the tramadol withgood relief. Bowel movements are regular. No nausea or vomiting. She has a rash on forearms and upper back, chest and face. She does have itching after her infusions relieved by cortisone cream. No shortness of breath, chest pain or edema. Denies any changes in her breathing. No hemoptysis. Denies any recent fevers or chills. No other focal complaints today. PMH: COVID- 06/12/22 UTI- 06/12/22 UTI 02/12/2022 Bilateral over the wire conversion of nephro-ureteral stent to 10 Fr nephrostomy catheters 01/18/2022 UTI 09/14/2021 04/26/21-05/01/21 admission to [facility] with pneumonia, Pulmonary hypertension/CHF, BRITNI 04/16/2021 nephrostomy catheter exchange 04/04/21 bronchoscopy and tumor debulking- endobronchial biopsies positive for adenocarcinoma of lung origin Social History: No interval changes since last visit [id number] smoking history quit 6 years ago, does not drink alcohol, used to live independently, but currently moved to her daughters house. Family History: No interval changes since last visit Brother had liver cancer, mother had leukemia, maternal aunt had colon cancer in cousin had bladdercancer Allergies: No Known Allergies Medications: Your Medications Accurate as of July 23, 2022 11:06 AM. If you have any questions, ask [...] axillary nodes normal Neurologic: Normal Vitals BP 126/64 (Patient Position: Sitting) Pulse 87 Temp 36.6 ??C (97.8 ??F) (Temporal) Resp 16 Ht 163.8 cm (5' 4.49) Wt 68.9 kg (151 lb 12.8 oz) SpO2 99% BMI 25.66 kg/m?? Pathology: Molecular pathology KRAS p.G12C c.34G>T [...] The assay was performed according to the clinical training specialist's ??instructions using Anti-PD-L1 (22C3, pharmDX) antibody. Electronically signed by: ?Herbert Ford MD Verified: ??04/11/2021 8:14 ?? Pathologist Performed at: ??-[facility], [place], [place] ? Surgical Pathology DIAGNOSIS A - Lung, ??left lower lobe mass, debulking: ?? - Adenocarcinoma, consistent with lung primary. Electronically signed by: ?Sana Dowell MD Verified: ??04/06/2021 11:16 ??Pathologist Performed at: ??-[facility], [place], [place] DISCUSSION Sections show an invasive, predominantly [...] propria. - No muscularis propria identified. Labs: 07/23/22- WBC-11.44 Hgb/Hct-11.4/37.0 MCV-82 Plt-593 ANC-7.15 Na-141 [...] of presumably metastatic urothelial carcinoma which include naknek based chemotherapy versus immunotherapy. Due to her [...] a nephrostomy tube exchange scheduled for Friday07/26/22. # Low back pain left side pain- [...] Anemia- mild- asymptomatic. Plan: 1 Proceed with C22 Pembrolizumab today as scheduled. 2. Continue levothyroxine 75 mcg a day 3. Next visit with CBC, CMP, TSH, free T4 and pembrolizumab in [address] Lange todiscuss duration of therapy. Barb voiced understanding of the plan and [...] PM EDT Office Visit Hematology/Oncology at [address] [phone] Chase Mckay MD [facility] DR HEMATOLOGY [place] [address] documented as of this encounter Visit Diagnoses Diagnosis Metastatic urothelial carcinoma Secondary malignant neoplasm of other urinary organs Primary lung adenocarcinoma, left Abnormal thyroid function test Nonspecific abnormal results of thyroid function study documented in this encounter Care Teams County Treasurer Relationship Specialty Start Date End Date Tavia Ramirez, POLITICAL AIDE [place] [place] [address] PCP - General Family Medicine 06/11/22 documented as of this encounter
--- OUTSIDE RECORDS SUMMARY | 2023-11-21 15:58 | XMS_ITS | Encounter Summary ---
Author Organization [facility] Address [facility] [place] [address] Care Team Providers Care Anesthesiology Resident Name Role Phone James Tavia Foster APRN Primary Care Provider [phone] Encounter Details Date Type Department Care Team (Latest Contact Info) Description 06/24/2022 Travel Social History Tobacco Use Types Packs/Day [...] PM EDT Office Visit Hematology/Oncology at [address] [address] Chase Mckay MD [facility] DR HEMATOLOGY [place] [address] documented as of this encounter Visit Diagnoses Not on filedocumented in this encounter Care Teams Anesthesiology Resident Relationship Specialty Start Date End Date Tavia Ramirez [place] [address] [place] [address] PCP - General Family Medicine 06/11/22 documented as of this encounter
--- OUTSIDE RECORDS SUMMARY | 2023-11-21 15:58 | XMS_ITS | Encounter Summary ---
Author Organization [facility] Address [facility] [place] [address] Care Team Providers Care Kitchen Clerk Name Role Phone James Tavia Foster APRN Primary Care Provider [phone] Encounter Details Date Type Department Care Team (Latest Contact Info) Description 07/25/2022 Travel Social History Tobacco Use Types Packs/Day [...] PM EDT Office Visit Hematology/Oncology at [address] [address] Chase Mckay MD [facility] DR [place] [address] documented as of this encounter Visit Diagnoses Not on filedocumented in this encounter Care Teams Kitchen Clerk Relationship Specialty Start Date End Date Tavia Ramirez [place] [address] [place] [address] PCP - General Family Medicine 06/11/22 documented as of this encounter
--- OUTSIDE RECORDS SUMMARY | 2023-11-21 15:58 | XMS_ITS | Encounter Summary ---
Author Organization [facility] [place] [address] Care Team Providers Care Pilates Instructor Name Role Phone Tavia Ramirez SULFIDE HEAD OPERATOR Primary Care Provider [phone] Encounter Details Date Type Department Care Team (Late st Contact Info) Description 06/14/2022 Notes [place] [phone] Yonathan Atkinson MD [facility] [place] [address] Social History Tobacco Use Types Packs/Day Years [...] of this encounter H&P Notes * Yonathan Atkinson MD - 06/14/2022 9:27 AM EST Images from the original note were not included. INTERVENTIONAL RADIOLOGY FOCUSED H&P and PRE-PROCEDURE NOTE: PCP: Tavia Ramirez APRN Referring Provider: Adeel Echeverria MD Planned Procedure: Planned procedure: Bilateral nephrostomy catheter check/exchange/removal Procedure Indication: Malignant obstruction Procedure Request: Procedure request received through the Interventional Radiology eDH order queue. Presenting Diagnosis/ Complaint: Barb Bullard is a 71 y.o. female with hx of metastatic urothelialcarcinoma complicated by hydronephrosis s/p bilateral NU placement on 02/20/2021, but were converted to bilateral 10 welsh nephrostomy catheter on 01/18/22. Last seen by IR on 04/24/22 w/ placement of new 10 Fr pigtail drains. Now presenting to IR for routine PCN exchange. IR History: 02/20/21 b/l PCN Placement?? No abx - covered from meds at OSH?4 mg midazolam,??175??mcg fentanyl ??04/02/21??Right chest port placement?local lidocaine, 2g Ancef,??3mg midazolam,??150mcg fentanyl 04/16/21 B/L Double J Stent Exchange ??Lido Jelly ??07/13/2021 Bileteral Nu exchange ??Cipro 500 mg PO, Local only, pt was in a lot of pain, may consider fentanyl for next exchange. ??6/28/22 Bilateral NU tube change PO: Cipro 500mg;??SQ: 1% lidocaine (admin by ); Topical; 2% [...] IR Mediport Placement 04/02/2021 Yuval Sinclair PA [facility] INTERVENTIONL RAD ??? IR NEPHROSTOMY TUBE EXCHANGE BILATERAL 04/24/2022 IR Nephrogram/Nephrostomy Tube Exchange Bilateral 04/24/2022 Alin Dillard MD [facility] INTERVENTIONL RAD ??? IR NEPHROSTOMY TUBE PLACEMENT PERCUTANEOUS BILATERAL 02/20/2021 IR Nephrostomy Tube Placement Percutaneous Bilateral [facility] INTERVENTIONL RAD ??? IR NEPHROURETERAL (NU) STENT PLACEMENT/CHECK/CHANGE 07/13/2021 IR Nephroureteral (NU) Stent Placement Check/Change 07/13/2021 Alexis De La Cruz MD [facility] INTERVENTIONLRAD ??? IR NEPHROURETERAL (NU) STENT PLACEMENT/CHECK/CHANGE 10/23/2021 IR Nephroureteral (NU) Stent Placement Check/Change 10/23/2021 Zeferino Rosado MD [facility] INTERVENTIONL RAD ??? IR NEPHROURETERAL (NU) STENT PLACEMENT/CHECK/CHANGE 01/18/2022 IR Nephroureteral (NU) Stent Placement Check/Change 01/18/2022 Guillermo Nice MD [facility] INTERVENTIONLRAD ? ? PRO [facility] EBUS GUIDED SAMPL 3/> NODE STATION/STRUX N/A 04/04/2021 BRONCH, W ENDOBRONCHIAL ULTRASOUND (EBUS) GUIDED SAMPLING, 3+ NODES (WRVU 5.21) performed by Alonzo Cevallos MD at [facility] MAIN OR ??? PRO BRONCHOSCOPY, DIAGNOSTIC W LAVAGE N/A 04/04/2021 BRONCHOSCOPY, RIGID OR FLEXIBLE, WITH BRONCHIAL ALVEOLAR LAVAGE (WRVU 2.88) performed by Alonzo Cevallos MD at [facility] MAIN OR Medications: Current Outpatient Medications on File Prior to Visit Medication Sig Dispense Refill ??? traMADoL (Ultram) 50 mg Tablet Take 1 tablet by mouth every 6 hours as needed for Pain. 30 tablet 0 ??? levothyroxine (Synthroid) 75 mcg Tablet Take 1 tablet by mouth daily. 30 tablet 11 ??? acetaminophen (Tylenol) 500 mg Tablet Take 1,000 mg by mouth every 8 hours as needed for Pain. ??? senna (Senokot) 8.6 mg Tablet Take [...] Types: Cigarettes Quit date: 07/04/2014 Years since quittin.9 ??? Smokeless tobacco: Never Vaping Use ??? [...] performed in angio the day of procedure) Plan: Planned procedure: Bilateral nephrostomy catheter check/exchange/removal Labs to be performed day of procedure: No labs Sedation: No Sedation Prophylactic antibiotic : Cipro Contrast: Omnipaque Additional medications for procedure: Lidocaine; Lido jelly Position: Prone Consent: Scanned Medications to discontinue (and days held): None Case Urgency:: G3- Elective Outpatient intervention over14 days Byron Love MD PGY-2 Department of Radiology 06/14/2022 documented in this encounter Miscellaneous Notes * Addendum Note - Yonathan Atkinson MD - 06/14/2022 9:27 AM ESTAddended by: YONATHAN ATKINSON on: 06/14/2022 09:40 AM Modules accepted: Orders, SmartSet documented in this encounter Plan of Treatment Upcoming Encounters Date Type Department Care Team (Late st Contact Info) Description 12/08/2023 3:30 PM EDT Office Visit Hematology/Oncology at [address] [address] Chase Mckay MD [facility] DR HEMATOLOGY AND ONCOLOGY [place], [place] [id number] documented as of this encounter Visit Diagnoses Not on filedocumented in this encounter Care Teams Pilates Instructor Relationship Specialty Start Date End Date Tavia Ramirez [place] [address] [place] [address] PCP - General Family Medicine 06/11/22 documented as of this encounter
--- OUTSIDE RECORDS SUMMARY | 2023-11-21 15:58 | XMS_ITS | Encounter Summary ---
Author Organization [facility] Address [place] [address] Care Team Providers Care Acrylic Fabricator Name Role Phone Eren Shah DNP Primary Care Provider [phone] Encounter Details Date Type Department Care Team (Latest Contact Info) Description 06/10/2022 Travel Social History Tobacco Use Types Packs/Day [...] PM EDT Office Visit Hematology/Oncology at [address] [address] Chase Mckay MD [facility] DR [place]EMATOLOG[place] [address] documented as of this encounter Visit Diagnoses Not on filedocumented in this encounter Care Teams Acrylic Fabricator Relationship Specialty Start Date End Date Eren Shah DNP PCP - General Family Medicine 03/20/21 06/10/22 documented as of this encounter
--- OUTSIDE RECORDS SUMMARY | 2023-11-21 15:58 | XMS_ITS | Encounter Summary ---
Author Organization [facility] [place] [address] Care Team Providers Care Staff Respiratory Therapist Name Role Phone Eren Shah CHELSEA Primary Care Provider [phone] Reason for Referral * Diagnostic Test (Routine) - Closed Specialty Diagnoses / Procedures Referred By Contac t Referred To Contact Radiology Diagnoses Obstructive uropathy Procedures IR Nephrogram/Nephrostomy Tube Exchange Bilateral Adeel Echeverria MD [facility] [place] [address] [facility] [place] [address] Referral ID Status Reason Start Date Expiration Date V isits Requested Visits Authorized [id number] Closed Specialty Service Requested 04/24/2022 10/24/2023 1 1 Reason for Visit * Diagnostic Test (Routine) - Closed Specialty Diagnoses / Procedures Referred By Contac t Referred To Contact Radiology Diagnoses Metastatic urothelial carcinoma Procedures IR Nephrogram/Nephrostomy Tube Exchange Bilateral IR Nephroureteral (NU) Stent Placement Check/Change Deandre Juares MD [facility] [place] [address] [facility] [place] [address] Referral ID Status Reason Start Date Expiration Date V isits Requested Visits Authorized [id number] Closed Specialty Service Requested 01/18/2022 07/19/2023 1 1 Encounter Details Date Type Department Care Team (Latest Contact Info) Description 04/24/2022 1:06 PM EST - 04/24/2022 11:59 PM EST Hospital Encounter Radiology at [facility] [address] Guillermo Nice MD [facility] [place] [address] Metastatic urothelial carcinoma; Obstructive uropathy Discharge Disposition: Home Social History [...] Sign Reading Time Taken Comments Blood Pressure 148/81 04/24/2022 3:00 PM EST Pulse 78 04/24/2022 1:39 PM EST Temperature 36.2 ??C (97.1 ??F) 04/24/2022 3:00 PM ES T Respiratory Rate 18 04/24/2022 3:00 PM EST Oxygen Saturation 96% 04/24/2022 3:00 PM EST Inhaled Oxygen Concentration - - Weight - - Height - - Body Mass Index - - documented in this encounter Discharge Instructions * Attachments The following attachments cannot be sent through Care Everywhere. * Nephrostomy Tube Care (Bahraini) documented in this encounter Medications at Time [...] as of this encounter Progress Notes * Ben Ly RN - 04/24/2022 2:46 PM EST ANGIO NURSING DATABASE Name: Barb Bullard Date of : 1950 AGE: 71 y.o. [address]: [address] [place] [phone] (home) Mobile: Telephone Information: Referring Provider: Deandre Juares REASON FOR VISIT: Order Questions Answers Where will study be performed? [facility] Radiology [120] Reason for exam and clinical history: Urothelial carcinoma with bilateral nephrostomy catheters, routine check Is the patient on anticoagulant / antiplatelet therapy ? No Does patient require sedation? None Planned procedure: Bilateral PCN exchange versus conversion [...] (admin by ); Topical; 2% lidocaine jelly ??04/24/2022 Bilateral PCN exchange ??PO: Cipro 500mg, lidocaine local ? Laboratory Results: Lab Results Component Value Date CREATININE 1.54 (H) 07/13/2021 Lab Results Component Value Date K 4.5 04/16/2021 Lab Results Component Value Date PLATELET 873 (H) 04/16/2021 documented in this encounter H&P Notes * MagdaTito zamudio, DO - 04/24/2022 1:41 PM EST INTERVENTIONAL RADIOLOGY FOCUSED H&P: Procedure: Bilateral PCN exchange The patient's history and physical exam have been reviewed and completed. There has been no interval change from that of the pre-operative history and physical exam done within the last 30 days. Physical Exam: Cardiovascular: Regular, Normal Pulmonary: Breath sounds clear to auscultation Flank/Back: Bilateral PCN intact, with dressing cdi. The planned procedure (and sedation plan if appropriate) , its benefits and risks, and alternativeswere discussed with the patient. The patient consented to the procedure. PRE-SEDATION ASSESSMENT: Sedation Plan: no sedation ASA: 2: Patient with mild systemic disease Mallampati: II: tonsillar pillars are blocked by the tongue Confirm NPO status: Yes History of anesthetic complications: No Current medications reviewed: Yes Allergies reviewed: Yes Alcohol/drug use: NA Source Note - Yonathan Van MD - 03/26/2022 11:16 AM [...] on 01/18. Bilateral NUs were convertedto 10 Paraguayan nephrostomy catheters at that time due to [...] IR Mediport Placement 04/02/2021 Yuval Sinclair PA [facility] INTERVENTIONL RAD ??? IR NEPHROSTOMY TUBE PLACEMENT PERCUTANEOUS BILATERAL 02/20/2021 IR Nephrostomy Tube Placement Percutaneous Bilateral [facility] INTERVENTIONL RAD ??? IR NEPHROURETERAL (NU) STENT PLACEMENT/CHECK/CHANGE 07/13/2021 IR Nephroureteral (NU) Stent Placement Check/Change 07/13/2021 Alexis De La Cruz MD [facility] INTERVENTIONLRAD ??? IR NEPHROURETERAL (NU) STENT PLACEMENT/CHECK/CHANGE 10/23/2021 IR Nephroureteral (NU) Stent Placement Check/Change 10/23/2021 Zeferino Rosado MD [facility] INTERVENTIONL RAD ??? IR NEPHROURETERAL (NU) STENT PLACEMENT/CHECK/CHANGE 01/18/2022 IR Nephroureteral (NU) Stent Placement Check/Change 01/18/2022 Guillermo Nice MD [facility] INTERVENTIONLRAD ? ? PRO [facility] EBUS GUIDED SAMPL 3/> NODE STATION/STRUX N/A 04/04/2021 BRONCH, W ENDOBRONCHIAL ULTRASOUND (EBUS) GUIDED SAMPLING, 3+ NODES (WRVU 5.21) performed by Alonzo Cevallos MD at [facility] MAIN OR ??? PRO BRONCHOSCOPY, DIAGNOSTIC W LAVAGE N/A 04/04/2021 BRONCHOSCOPY, RIGID OR FLEXIBLE, WITH BRONCHIAL ALVEOLAR LAVAGE (WRVU 2.88) performed by Alonzo Cevallos MD at [facility] MAIN OR Medications: Current Outpatient Medications [...] PM EDT Office Visit Hematology/Oncology at [address] [address] Chase Mckay MD [facility] [place] [address] documented as of this encounter Procedures Procedure Name Priority Date/Time Associated Diagnosis Comments IR NEPHROGRAM/NEPHROST CAYLA TUBE EXCHANGE BILATERAL Routine 04/24/2022 3:02 PM EST Metastatic urothelial carcinoma documented in this encounter Results * IR Nephrogram/Nephrostomy Tube Exchange Bilateral (07/26/2022 [...] was administered. Initial nephrostogram was performed. A WemoLab wire was advanced through the existing catheter [...] Alin Dillard MD 07/26/2022 Alin Dillard MD G IR ORDERABLES * IR Nephrogram/Nephrostomy Tube Exchange Bilateral (04/24/2022 3:02 PM EST) Anatomical Region Laterality Modality X-Ray Angiograph y Narrative 04/24/2022 3:46 PM EST Preoperative Diagnosis: Bilateral indwelling nephrostomy tubes: ? For routine change. Postoperative Diagnosis: ?? Same Procedure Performed: Uawk-scl-lynr exchange of bilateral nephrostomy tubes using fluoroscopic guidance. Estimated Blood Loss: None Fluoroscopy time: Please see [facility] IR technologist record for procedural dose/time Cefazolin/ cefuroxime was not ordered for antimicrobial prophylaxis as it is not indicated or strongly backed by the medical literature. Anesthesia: 1. ??None. Operators: 1. Alin Dillard MD. Attending 2. Adeel Echeverria MD, Resident The patient was informed of the risks, benefits, and alternatives to the procedure and gave written consent, which was then placed in the chart. Appropriate time-out was performed prior to the procedure. Description of Procedure: ??All elements of maximal sterile barrier technique were met including cap, mask, sterile gown, sterile gloves, large sterile sheet, hand hygiene and 2% chlorhexidine for cutaneous antisepsis. The existing drain was prepped and draped in the usual sterile fashion. Contrast was administered through the existing dr nephrostomy tubes demonstrating the else tubes to be within the renal collecting system. ?? The right tube had pulled back to a peripheral calyx. ?? Using fluoroscopic guidance, the existing nephrostomy tubes were removed over Amplatz wires simultaneously, and replaced with ??new 10 Paraguayan pigtail drains which were positioned within the right and left renal pelvis. A spot fluoroscopic image demonstrates the new nephrostomy tubes to be in good position. The patient tolerated the procedure well. Impression: Uneventful maax-ouu-ahas exchange of bilateral nephrostomy tubes. I was the attending physician supervising the resident in the above care and I was present with the resident for the entire procedure. Guillermo Nice MD [facility] IR ORDERABLES documented in this encounter Visit Diagnoses Diagnosis Metastatic urothelial carcinoma Secondary malignant neoplasm of other urinary organs Obstructive uropathy Urinary obstruction, unspecified Obstructive uropathy Urinary obstruction, unspecified Metastatic urothelial carcinoma Secondary malignant neoplasm of other urinary organs documented in this encounter Administered Medications Inactive Administered Medications - up to 3 most recent administrations Medication Order MAR Action Action Date Dose Rate Site ciprofloxacin (Cipro) tablet 500 mg 500 mg, Oral, ONCE, 1 dose, On Fri04/24/22 at 1415, Angio/IR (Day of Procedure), Routine, Indication for (Active or Suspected): Urinary Tract/Pyelonephritis Given 04/24/2022 2:26 PM EST 500 mg iohexoL (Omnipaque) (350 mg/mL) solution 50 mL 50 mL, Other, ONCE PRN, 1 dose, Starting on Fri04/24/22 at 1502, Until Fri04/24/22 at 1503, Per Protocol, Warning Vesicant/Irritant Medication , Routine Given 04/24/2022 3:03 PM EST 15 mLs documented in this encounter Care Teams Staff Respiratory Therapist Relationship Specialty Start Date End Date Eren Shah DNP PCP - General Family Medicine 03/20/21 06/10/22 documented as of this encounter
--- OUTSIDE RECORDS SUMMARY | 2023-11-21 15:58 | XMS_ITS | Encounter Summary ---
Author Organization [facility] Address [facility] [place] [address] Care Team Providers Care Balance Wheel Screw Hole Driller Name Role Phone Eren Shah DNP Primary Care Provider [phone] Encounter Details Date Type Department Care Team (Late st Contact Info) Description 03/12/2022 Notes Only Hematology/Oncology at [address] [phone] Elizabeth Mccray, [place] OFFICE OF CARE MANAGEMENT Social History Tobacco Use Types Packs/Day Years [...] as of this encounter Progress Notes * Elizabeth Mccray MSW - 03/12/2022 12:27 PM EST Follow up with Barb during her infusion visit today. She indicated she is doing fairly well day today at home. She keeps busy and active. She is expecting a quiet family gathering for the upcoming holiday. She did not identify any new needs. Offered support. Reminded Barb of GLASSINE MACHINE TENDER availability and will continue to follow as indicated. Brief assessment Supportive Counseling documented in this encounter Plan of Treatment Upcoming Encounters Date Type Department Care Team (Late st Contact Info) Description 12/08/2023 3:30 PM EDT Office Visit Hematology/Oncology at [address] [address] Chase Mckay MD [facility] DR HEMATOLOGY [place] [address] documented as of this encounter Visit Diagnoses Not on filedocumented in this encounter Care Teams Balance Wheel Screw Hole Driller Relationship Specialty Start Date End Date Eren Shah DNP PCP - General Family Medicine 03/20/21 06/10/22 documented as of this encounter
--- OUTSIDE RECORDS SUMMARY | 2023-11-21 15:59 | XMS_ITS | Encounter Summary ---
Author Organization [facility] Address [facility] [place] [address] Care Team Providers Care Facing Cutting Machine Operator Name Role Phone Eren Shah DNP Primary Care Provider [phone] Encounter Details Date Type Department Care Team (Latest Contact Info) Description 03/11/2022 Travel Social History Tobacco Use Types Packs/Day [...] PM EDT Office Visit Hematology/Oncology at [address] [address] Chase Mckay MD [facility] [place] [address] documented as of this encounter Visit Diagnoses Not on filedocumented in this encounter Care Teams Facing Cutting Machine Operator Relationship Specialty Start Date End Date Eren Shah DNP PCP - General Family Medicine 03/20/21 06/10/22 documented as of this encounter
--- OUTSIDE RECORDS SUMMARY | 2023-11-21 15:59 | XMS_ITS | Encounter Summary ---
Author Organization [facility] [place] [address] Care Team Providers Care Workforce Analyst Name Role Phone Eren Shah CHELSEA Primary Care Provider [phone] Reason for Referral * Diagnostic Test (Routine) - Closed Specialty Diagnoses / Procedures Referred By Contac t Referred To Contact Radiology Diagnoses Metastatic urothelial carcinoma Procedures NM PET CT Skull Base to Mid-thigh Jose Rhoades MD [facility] HEMATOLOGY [place] [address] [place] [address] Referral ID Status Reason Start Date Expiration Date V isits Requested Visits Authorized [id number] Closed Specialty Service Requested 10/09/2021 04/10/2023 1 1 Encounter Details Date Type Department Care Team (Late st Contact Info) Description 10/09/2021 9:00 AM EDT Office Visit Hematology/Oncology at [address] [phone] Jose Rhoades MD [facility] HEMATOLOGY [place] [address] Tea Dimas APRN [facility] [place] [address] Metastatic urothelial carcinoma (Primary Dx); Abnormal thyroid function test; Primary lung adenocarcinoma, left; Anemia of chronic disease Social History Tobacco Use Types Packs/Day Years [...] Reading Time Taken Comments Blood Pressure 114/67 10/09/2021 9:08 AM EDT Pulse 87 10/09/2021 9:08 AM EDT Temperature 36 ??C (96.8 ??F) 10/09/2021 9:08 AM EDT Respiratory Rate 16 10/09/2021 9:08 AM EDT Oxygen Saturation 99% 10/09/2021 9:08 AM EDT Inhaled Oxygen Concentration - - Weight 65.3 kg (144 lb) 10/09/2021 9:08 AM EDT Height 163.8 cm (5' 4.49) 10/09/2021 9:08 AM ED T Body Mass Index 24.34 10/09/2021 9:08 AM EDT documented in this encounter Progress Notes * Jose Rhoades MD - 10/09/2021 9:00 AM EDT Images from the original note were not included. Hematology & [place] [address] Barb returns today to continue treatment for [...] distinct lung primary. She was seen by solidworks mechanical designer , who recommended rigid bronchoscopy withattempts to [...] HTN. She wasdischarged home on 05/01/21 Interval history(10/09/21): Ms. Bullard is in clinic for follow-up of bladder cancer and pembrolizumabinfusion. Urge to urinate and flank pain/discomfort are resolved on ciprofloxacin. She completed antibiotics. Today she feels well. Complains of an occasional cough. Denies diarrhea. Bowel movements are regular. She states her breathing is much better- she goes up and down the stairs without being short of breath.o other focal complaints today. PMH: UTI 09/14/2009 04/26/21-05/01/21 admission to [facility] with pneumonia, Pulmonary hypertension/CHF, BRITNI 04/16/2021 nephrostomy catheter exchange 04/04/21 bronchoscopy and tumor debulking- endobronchial biopsies positive for adenocarcinoma of lung origin Social History: No interval changes since last visit [id number] smoking history quit 6 years ago, does not drink alcohol, used to live independently, but currently moved to her daughters house. Family History: No interval changes since last visit Brother had liver cancer, mother had leukemia, maternal aunt had colon cancer in cousin had bladdercancer Allergies: No Known Allergies Medications: Your Medications Accurate as of October 09, 2021 9:15 AM. If you have any questions, ask your nurse or doctor. Continued medications, unchanged Dose Details ferrous sulfate EC 325 mg (65 mg iron) Tbec Take 325 mg by mouth every other day. 325 mg Refills: 0 prochlorperazine 10 mg Tab Commonly known as: Compazine Take 1 tablet by mouth every 6 hours as needed for Nausea. 10 mg Quantity: 15 tablet Refills: 0 senna 8.6 mg Tab Commonly known as: Senokot Take by mouth daily. Refills: 0 traMADoL 50 mg Tab Commonly known as: Ultram Take 0.5-1 tablets by mouth every 6 hours as needed for Pain. 25-50 mg Quantity: 30 tablet Refills: 0 STOPPED Medications ciprofloxacin 500 mg Tab Commonly known as: Cipro Stopped by: JOSE RHOADES MD Review of Systems: Constitutional: Negative for fever, chills. Positive for fatigue. HEENT: Negative for sore throat, mouth sores and trouble swallowing. Eyes: Negative. Respiratory: Negative for shortness of breath. No wheezing. No hemoptysis. Negative for cough. Cardiovascular: Negative for chest pain, palpitations and leg swelling. Gastrointestinal: Negative for nausea, vomiting, abdominal pain, diarrhea, constipation and abdominal distention. Genitourinary:Bilateral nephrostomy tubes. Musculoskeletal: Positive for low back pain. Skin: Negative. Neurological: Negative. Hematological: Negative for [...] masses, no organomegaly. Bilateral nephrostomy tube in place draining clear yellow urine Extremities: Extremities normal, atraumatic, no cyanosis or edema Pulses: Skin: Skin color, texture, turgor normal, no rashes or lesions Lymph nodes: Cervical, supraclavicular, and axillary nodes normal Neurologic: Normal Vitals BP 114/67 (Patient Position: Sitting) Pulse 87 Temp 36 ??C (96.8 ??F) (Temporal) Resp 16 Ht 163.8 cm (5' 4.49) Wt 65.3 kg (144 lb) SpO2 99% BMI 24.34 kg/m?? Pathology: Molecular pathology KRAS p.G12C c.34G>T [...] was performed according to the director of orthopedics's ??instructions using Anti-PD-L1 (22C3, pharmDX) antibody. Electronically signed by: ?Herbert Ford MD Verified: ??04/11/2021 8:14 ?? Pathologist Performed at: ??-[facility] [place], [place] ? Surgical Pathology DIAGNOSIS A - Lung, ??left lower lobe mass, debulking: ?? - Adenocarcinoma, consistent with lung primary. Electronically signed by: ?Sana Dowell MD Verified: ??04/06/2021 11:16 ??Pathologist Performed at: ??-[facility] [place], [place], [place] DISCUSSION Sections show an invasive, predominantly [...] propria. - No muscularis propria identified. Labs: 10/09/2021 WBC 10.57, hemoglobin 11.9, platelet count [...] 871, BUN 39, creatinine 1.9, calcium 10.3 Imagin08/03/21 PET-CT scan: IMPRESSION 1. Persistent large FDG [...] of presumably metastatic urothelial carcinoma which include [place] based chemotherapy versus immunotherapy. Due to her [...] completion of 10 cycles of pembrolizumab treatment She was seen by Dr. Nely macario recommendation of continuation pembrolizumab and consideration of KRAS inhibitor as a second line treatment of lung cancer. # Low back pain- She is taking Tramadol 50 mg(1/2) every 12 hours with tylenol in between if needed. She follows with Palliative Care. #Abnormal thyroid function: TSH is slightly elevated. Free T4 within normal range. We will monitor #Renal insufficiency: Cr 1.5, Creatinine 3.0 on admission, today creatinine is 1.5- be. She has bilateral nephrostomy tubes. . She has a follow up appointment with Dr. Beckwith on July 13. #Pneumonia treated with ceftriaxone and azithromycin and finished course of Levaquin at home. No clinical evidence of infection today. # Anemia- multifactoral. Improving, She is unable to tolerate oral iron. Repeat ferritin and iron, TIBC. Plan: 1. Proceed with C9 Pembrolizumab today 2. PET scan in 4-5 weeks 3. Next visit with CBC,CMP, TSH, FT4 and pembrolizumab in 3 weeks Barb voiced understanding of [...] PM EDT Office Visit Hematology/Oncology at [address] [phone] Chase Mckay MD [facility] DR HEMATOLOGY [place] [address] documented as of this encounter Results * NM PET CT Skull Base to Mid-thigh (11/13/2021 12:12 PM EDT) Anatomical Region Laterality Modality Positron Emissio n Tomography (PET) Impressions 11/14/2021 10:47 AM EDT 1. ??Persistent large FDG avid mass in the LEFT lower lobe, unchanged in size or metabolic activity from prior examination, consistent with active pulmonary malignancy. 2. ??Small residual active anthony metastasis in the subcarinal region, with all other adenopathy completely resolved compared to prior. 3. ??No other sites of suspected active metastatic disease. I have personally reviewed the image(s) and the resident's interpretation and agree with the findings, Ed Barajas MD at 11/14/2021 10:47 AM Thank you for letting us participate in the care of this patient. ??If you are a health care provider and have any questions regarding this report, please contact the number below. ??For patients who have questions please contact the health foster care case manager that requested your imaging first. ? Narrative 11/14/2021 10:47 AM EDT EXAMINATION: NM PET CT STANDARD SKULL BASE TO MID-THIGH CLINICAL HISTORY: Urologic cancer, assess treatment response - Include more detail below Restaging of metastatic urothelial carcinoma, patient has primary lung cancer as well. Status post 10 cycles of chemotherapy TECHNIQUE: Following IV injection of 46-xoaitc-5-deoxyglucose (FDG) a standard uptake of approximately 60 minutes, a noncontrast CT scan followed by a PET scan were acquired from the base of the skull to mid thighs. The noncontrast CT was used for anatomic localization and photon attenuation correction of the PET scan. Blood glucose level: 89 (mg/dL) FDG dose: 10 mCi COMPARISON: PET/CT 08/03/2021 FINDINGS: HEAD/NECK: Several small FDG avid lymph nodes in the bilateral level 2 region, unchanged compared to prior and consistent with benign reactive nodes. CHEST: Unchanged FDG avid mass in the LEFT lower lobe, contiguous with the posterior left hilum, with cystic and solid components. Unchanged peripherally FDG avid LEFT loculated pleural effusion. Near complete resolution of previously seen bilateral hilar and mediastinal adenopathy. Small residual FDG avid adenopathy in the subcarinal region (axial image 79). Sub-5 mm RIGHT upper lobe pulmonary nodule and LEFT posterior pleural-based nodules are unchanged from prior examination. Peripheral groundglass opacities in the inferior RIGHT upper lobe unchanged from prior examination. Scarring in the lingula is unchanged. Right-sided chest port in place with tip terminating in the lower SVC. Coronary artery calcifications. ABDOMEN/PELVIS: Unchanged multiple small to borderline-enlarged FDG avid lymph nodes in the bilateral inguinal region, favored to represent chronic inflammatory nodes. Bilateral nephroureterostomy tubes. SKELETON/EXTREMITIES: Normal activity in all regions of the axial and visualized appendicular skeleton. Procedure Note Ed Barajas MD - 11/14/2021 EXAMINATION: NM PET CT STANDARD SKULL BASE TO MID-THIGH CLINICAL HISTORY: Urologic cancer, assess treatment response - Includemore detail below Restaging of metastatic urothelial carcinoma, patient has primary lungcancer as well. Status post 10 cycles of chemotherapy TECHNIQUE: Following IV injection of 96-zkfwia-7-deoxyglucose (FDG) astandard uptake of approximately 60 minutes, a noncontrast CT scan followed by aPET scan were acquired from the base of the skull to mid thighs. The noncontrast CTwas used for anatomic localization and photon attenuation correction of thePET scan. Blood glucose level: 89 (mg/dL) FDG dose: 10 mCi COMPARISON: PET/CT 08/03/2021 FINDINGS: HEAD/NECK: Several small FDG avid lymph nodes in the bilateral level 2 region,unchanged compared to prior and consistent with benign reactive nodes. CHEST: Unchanged FDG avid mass in the LEFT lower lobe, contiguous with theposterior left hilum, with cystic and solid components. Unchanged peripherally FDG avid LEFT loculated pleural effusion. Near complete resolution of previously seen bilateral hilar andmediastinal adenopathy. Small residual FDG avid adenopathy in the subcarinal region (axial image79). Sub-5 mm RIGHT upper lobe pulmonary nodule and LEFT posteriorpleural-based nodules are unchanged from prior examination. Peripheral groundglassopacities in the inferior RIGHT upper lobe unchanged from prior examination.Scarring in the lingula is unchanged. Right-sided chest port in place with tip terminating in the lower SVC.Coronary artery calcifications. ABDOMEN/PELVIS: Unchanged multiple small to borderline-enlarged FDG avid lymph nodes inthe bilateral inguinal region, favored to represent chronic inflammatorynodes. Bilateral nephroureterostomy tubes. SKELETON/EXTREMITIES: Normal activity in all regions of the axial and visualized appendicular skeleton. IMPRESSION 1. Persistent large FDG avid mass in the LEFT lower lobe, unchanged insize or metabolic activity from prior examination, consistent with activepulmonary malignancy. 2. Small residual active anthony metastasis in the subcarinal region, withall other adenopathy completely resolved compared to prior. 3. No other sites of suspected active metastatic disease. I have personally reviewed the image(s) and the resident's interpretationand agree with the findings, Ed Barajas MD at 11/14/2021 10:47 AM Thank you for letting us participate in the care of this patient. If youare a health care provider and have any questions regarding this report,please contact the number below. For patients who have questions please contactthe health foster care case manager that requested your imaging first. Electronically signed by: Ed Barajas MD, [facility]([phone]), at 11/14/2021 10:47 AM Jose Rhoades MD IMG PET ORDERABLES documented in this encounter Visit Diagnoses Diagnosis Metastatic urothelial carcinoma- Primary Secondary malignant neoplasm of other urinary organs Abnormal thyroid function test Nonspecific abnormal results of thyroid function study Primary lung adenocarcinoma, left Anemia of chronic disease Anemia of other chronic disease Metastatic urothelial carcinoma Secondary malignant neoplasm of other urinary organs documented in this encounter Care Teams Workforce Analyst Relationship Specialty Start Date End Date Eren Shah DNP PCP - General Family Medicine 03/20/21 06/10/22 documented as of this encounter
--- OUTSIDE RECORDS SUMMARY | 2023-11-21 15:59 | XMS_ITS | Encounter Summary ---
Author Organization [place] [address] Care Team Providers Care Supervisor Garment Manufacturing Name Role Phone Eren Shah CHELSEA Primary Care Provider [phone] Reason for Visit * Reason Comments Chemotherapy Pembrolizumab * Treatment/Therapy Plan Authorization (Routine) - Closed Specialty Diagnoses / Procedures Referred By Contac t Referred To Contact Hematology and Oncology Diagnoses Metastatic urothelial carcinoma Abnormal thyroid function test Procedures [id number] Jose Barnhart MD [address] [place] [address] [place] [address] Jose Lange MD [address] [place] [address] [place] [address] Referral ID Status Reason Start Date Expiration Date Visits Re quested Visits Authorized [id number] Closed 04/28/2022 06/24/2023 99 99 Encounter Details Date Type Department Care Team (Late st Contact Info) Description 10/09/2021 9:30 AM EDT Infusion Hematology Oncology at [address] [phone] Metastatic urothelial carcinoma; Abnormal thyroid function test [...] as of this encounter Progress Notes * Gay Marshall RN - 10/09/2021 9:30 AM EDT INFUSION THERAPY ADMINISTRATION NOTES DIAGNOSIS: Urothelial CA CYCLE #: 9 Day 1 REASON FOR VISIT: Pembrolizumab Infusion SUBJECTIVE Ms. Bullard is here for C9D1 Pembrolizumab. She is overall doing well. Met with Dr. Lange prior to infusion appt, has no questions/concerns and is ready for treatment today. OBJECTIVE LAB DATA: Labs drawn today at [facility] and reviewed by this RN. No holds per treatment plan Pre administration: Chemotherapy orders independently verified for drug name, route, and dosage per patient's height, weight and BSA by Poncho Marshall RN and pharmacist on-site. REACTIONS (DESCRIPTION, TIME, INTERVENTION AND EFFECTIVENESS) none ASSESSMENT Ms Bullard was awake, alert and tolerated treatment well. PLAN Return to clinic in 3 weeks for consideration of C10. Patient was reminded to call in the interim with any questions/concerns. documented in this encounter Plan of Treatment Upcoming Encounters Date Type Department Care Team (Late st Contact Info) Description 12/08/2023 3:30 PM EDT Office Visit Hematology/Oncology at [address] [phone] Chase Mckay MD [facility] DR [place] [address] documented as of this encounter Visit Diagnoses [...] 500 Units, Intravenous, ONCE PRN, Starting on Fri10/09/21 at 0948, Until Fri10/09/21 at 1511, Line Care, Refer to Intravenous (IV) Procedure: Accessing Implanted Vascular Access Devices (164) procedure and/or Intravenous (IV) Job Aid: Adult Flushing & Catheter Care (2161) job aid for additional information regarding guidelines and administration., Routine Given 10/09/2021 10:59 AM EDT 500 Units pembrolizumab (Keytruda) 200 mg in sodium chloride 0.9% 108 mL infusion 200 mg, Intravenous, ONCE, 1 dose, On Fri10/09/21 at 1115, Administer over 30 Minutes, Flush line with NS after each dose., This agent is restricted to outpatient use. Is this drug being given as an outpatient? Yes New Bag 10/09/2021 10:25 AM EDT 200 mg 216 mL/hr sodium chloride 0.9 % (flush) (BD PosiFlush Normal Saline 0.9) flush 5-20 mL 5-20 mL, Intravenous, EVERY 1 MIN PRN, Starting on Fri10/09/21 at 0948, Until Fri10/09/21 at 1511, Line Care, Flush pertains to all indwelling lines. Flush per protocol found in the job aid using the link provided on this medication record. Refer to Intravenous (IV) Job Aid: Adult Flushing & Catheter Care (2582) job aid for additional information regarding guidelines and administration., Routine Given 10/09/2021 10:59 AM EDT 20 mLs documented in this encounter Care Teams Supervisor Garment Manufacturing Relationship Specialty Start Date End Date Eren Shah DNP PCP - General Family Medicine 03/20/21 06/10/22 documented as of this encounter
--- OUTSIDE RECORDS SUMMARY | 2023-11-21 15:59 | XMS_ITS | Encounter Summary ---
Author Organization [facility] Jose [place] [address] Care Team Providers Care Electronic Industrial Controls Mechanic Name Role Phone Eren Shah DNP Primary Care Provider [phone] [phone] Encounter Details Date Type Department Care Team (Late st Contact Info) Description 10/30/2021 11:00 AM EDT Office Visit Hematology/Oncology at [address] [phone] Rossi Dimas, [facility]ANDR[facility] [address] Metastatic urothelial carcinoma; Hypothyroidism due to drugs [...] Sign Reading Time Taken Comments Blood Pressure 151/72 10/30/2021 10:41 AM EDT Pulse 86 10/30/2021 10:41 AM EDT Temperature 36.3 ??C (97.3 ??F) 10/30/2021 10:41 AM E DT Respiratory Rate 18 10/30/2021 10:41 AM EDT Oxygen Saturation 97% 10/30/2021 10:41 AM EDT Inhaled Oxygen Concentration - - Weight 66.9 kg (147 lb 6.4 oz) 10/30/2021 10:41 AM EDT Height 163.8 cm (5' 4.49) 10/30/2021 10:41 AM E DT Body Mass Index 24.92 10/30/2021 10:41 AM EDT documented in this encounter Patient Instructions * Patient Instructions* Rossi Dimas APRN - 10/30/2021 11:25 AM EDT She will return as scheduled in 3 weeks with PET scan prior . documented in this encounter Progress Notes * Rossi Dimas APRN - 10/30/2021 11:00 AM EDT Images from the original note were not included. Hematology & Medical Oncology [address] [phone] Barb returns today to continue treatment for [...] distinct lung primary. She was seen by vp training , who recommended rigid bronchoscopy withattempts to [...] She wasdischarged home on 05/01/21 Interval history 10/30/21 Barb returns today for follow up of bladder cancer and her next dose of pembrolizumab. She just had her nephrostomy tubes changed and they feel better. She denies any shortness of breath. She does have a mild rash on her arms and legs And itching. It comes and goes. Bowel movements are regular. She has an occasional cough. Her weight is up. Her energy level is about the same. Interval history(10/09/21): Ms. Bullard is in clinic [...] today. PMH: UTI 09/14/2009 04/26/21-05/01/21 admission to [facility] with pneumonia, Pulmonary hypertension/CHF, BRITNI 04/16/2021 nephrostomy catheter exchange 04/04/21 bronchoscopy and tumor debulking- endobronchial biopsies positive for adenocarcinoma of lung origin Social History: No interval changes since last visit [id number] smoking history quit 6 years ago, does not drink alcohol, used to live independently, but currently moved to her daughters house. Family History: No interval changes since last visit Brother had liver cancer, mother had leukemia, maternal aunt had colon cancer in cousin had bladdercancer Allergies: No Known Allergies Medications: Your Medications Accurate as of October 30, 2021 3:37 PM. If you have any questions, ask your nurse or doctor. New Medications Dose Details levothyroxine 25 mcg Tab Commonly known as: Synthroid Take 1 tablet by mouth daily. Started by: ROSSI DIMAS [employer] OF [employer]ASUREMENT [employer] INSIGHTS 25 mcg Quantity: 30 tablet Refills: 5 Continued medications, unchanged Dose Details ferrous sulfate [...] 25-50 mg Quantity: 30 tablet Refills: 0 Review [...] axillary nodes normal Neurologic: Normal Vitals BP 151/72 (Patient Position: Sitting) Pulse 86 Temp 36.3 ??C (97.3 ??F) (Temporal) Resp 18 Ht 163.8 cm (5' 4.49) Wt 66.9 kg (147 lb 6.4 oz) SpO2 97% BMI 24.92 kg/m?? Pathology: Molecular pathology KRAS p.G12C c.34G>T [...] The assay was performed according to the food service ambassador's ??instructions using Anti-PD-L1 (22C3, pharmDX) antibody. Electronically signed by: ?Herbert Ford MD Verified: ??04/11/2021 8:14 ?? Pathologist Performed at: [place] [place], [place] ? Surgical Pathology DIAGNOSIS A - Lung, ??left lower lobe mass, debulking: ?? - Adenocarcinoma, consistent with lung primary. Electronically signed by: ?Sana Dowell MD Verified: ??04/06/2021 11:16 ??Pathologist Performed at: ??[place] [place], [place] DISCUSSION Sections show an invasive, predominantly [...] propria. - No muscularis propria identified. Labs: 10/30/21 WBC 11.23 H/H 12.4/39.8 plts 571 [...] of presumably metastatic urothelial carcinoma which include campo based chemotherapy versus immunotherapy. Due to her [...] completion of 10 cycles of pembrolizumab treatment 10/30/21 she will receive her next dose of pembrolizumab today. She will return in 3 weeks with labs prior and PET scan for reevaluation. She will have a follow up visit with Dr Lange that day. She was seen by Dr. Nely macario recommendation of continuation pembrolizumab and consideration of KRAS inhibitor as a second line treatment of lung cancer. # Low back pain- She is taking Tramadol 50 mg(1/2) every 12 hours with tylenol in between if needed. She follows with Palliative Care. #Abnormal thyroid function: TSH is higher than before and her t4 free is low. She will start on synthroid 25 mcg and we will adjust dose as needed. #Renal insufficiency: Cr 1.5, Creatinine 3.0 on admission, today creatinine is 1.5- be. She has bilateral nephrostomy tubes. . She has a follow up appointment with Dr. Beckwith on July 13. #Pneumonia treated with ceftriaxone and azithromycin and finished course of Levaquin at home. No clinical evidence of infection today. # Anemia- multifactoral. Improving, Plan: 1. Proceed with C9 Pembrolizumab today 2. PET scan in 2-3 weeks 3. 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
--- OUTSIDE RECORDS SUMMARY | 2023-11-21 15:59 | XMS_ITS | Encounter Summary ---
[facility] Organization [facility] Address [facility] [place] [address] Care Team Providers Care Crimper Operator Name Role Phone Eren Shah DNP Primary Care Provider Encounter Details Date Type Department Care Team (Late st Contact Info) Description 01/01/2022 10:00 AM EDT Office Visit Hematology/Oncology at [address] [phone] Jose Rhoades MD [facility] [address] [place] [address] Tea Dimas APRN [facility] [place] [address] Abnormal thyroid function test Social History Tobacco [...] Sign Reading Time Taken Comments Blood Pressure 123/74 01/01/2022 9:57 AM EDT Pulse 85 01/01/2022 9:57 AM EDT Temperature 36.5 ??C (97.7 ??F) 01/01/2022 9:57 AM ED T Respiratory Rate 16 01/01/2022 9:57 AM EDT Oxygen Saturation 99% 01/01/2022 9:57 AM EDT Inhaled Oxygen Concentration - - Weight 66.3 kg (146 lb 3.2 oz) 01/01/2022 9:57 A M EDT Height - - Body Mass Index 24.72 12/11/2021 10:03 AM EDT documented in this encounter Patient Instructions * Patient Instructions* Tea Dimas APRN - 01/01/2022 10:00 AM EDT She will return in 3 weeks with labs prior and infusion documented in this encounter Progress Notes * Tea Dimas APRN - 01/01/2022 10:00 AM EDT Images from the original note were not included. Hematology & Medical Oncology [address] [address] Barb returns today to continue treatment for [...] distinct lung primary. She was seen by 3rd grade teacher , who recommended rigid bronchoscopy withattempts to [...] She wasdischarged home on 05/01/21 Interval history 01/01/22 Barb returns today for followup of her bladder cancer and next dose of pembrolizumab. She continues to feel well. She is due to have her nephostomy tubes changed. She continues to have a mild rash on her chest and her thighs but not on her arms. She is taking her synthroid.Bowel movements are regular no diarrhea. Her energy level is good. She denies any pain other than so me discomfort around the right nephrostomy tube which comes and goes. She denies any shortness of breath or chest paon or cough. ROS Is otherwise negative. Interval history 11/20/21 Barb returns today for follow up of bladder cancer and her next dose of pembrolizumab. Overall, Ms. Bullard feels well. she denies any shortness of breath. She does have a mild rash on her arms and legs. It comes and goes. Bowel movements are regular. She has an occasional cough. Her weight is up. Her energy level is good. She denies any pain. PMH: No interval changes since last visit UTI 09/14/2021 04/26/21-05/01/21 admission to [facility] with pneumonia, Pulmonary hypertension/CHF, BRITNI 04/16/2021 nephrostomy catheter exchange 04/04/21 bronchoscopy and tumor debulking- endobronchial biopsies positive for adenocarcinoma of lung origin Social History: No interval changes since last visit [id number] smoking history quit 6 years ago, does not drink alcohol, used to live independently, but currently moved to her daughters house. Family History: No interval changes since last visit Brother had liver cancer, mother had leukemia, maternal aunt had colon cancer in cousin had bladdercancer Allergies: No Known Allergies Medications: Your Medications Accurate as of January 01, 2022 10:26 AM. If you have any questions, ask your nurse or doctor. New Medications Dose Details levothyroxine 50 mcg Tab Commonly known as: Synthroid Take 1 tablet by mouth daily. Started by: JOSE RHOADES MD 50 mcg Quantity: 90 tablet Refills: 3 Continued medications, unchanged Dose Details ferrous sulfate [...] Positive for low back pain. Skin: Negative. Does have mild rash on chest and thighs Neurological: Negative. Hematological: Negative for adenopathy. PE: [...] axillary nodes normal Neurologic: Normal Vitals BP 123/74 (Patient Position: Sitting) Pulse 85 Temp 36.5 ??C (97.7 ??F) (Temporal) Resp 16 Wt 66.3 kg (146 lb 3.2 oz) SpO2 99% BMI 24.72 kg/m?? Pathology: Molecular pathology KRAS p.G12C c.34G>T [...] The assay was performed according to the shop superintendent's ??instructions using Anti-PD-L1 (22C3, pharmDX) antibody. Electronically signed by: ?Herbert Ford MD Verified: ??04/11/2021 8:14 ?? Pathologist Performed at: ??-[facility] Dept. of Pathology, [place], [place] ? Surgical Pathology DIAGNOSIS A - Lung, ??left lower lobe mass, debulking: ?? - Adenocarcinoma, consistent with lung primary. Electronically signed by: ?Sana Dowell MD Verified: ??04/06/2021 11:16 ??Pathologist Performed at: ??-[facility] Dept. of Pathology, [place], [place] DISCUSSION Sections show an invasive, predominantly [...] propria. - No muscularis propria identified. Labs: 01/01/22 WBC 11.93 H/H 12.4/39.5 Plts 567 [...] 871, BUN 39, creatinine 1.9, calcium 10.3 Imagin11/14/21 PET scan: IMPRESSION 1. Persistent large FDG [...] of presumably metastatic urothelial carcinoma which include [place] based chemotherapy versus immunotherapy. Due to her [...] follows with Palliative Care. #Abnormal thyroid function: will increase levothyroxine to 50 mcg.. Will monitor thyroid function. TSH is 14.04 #Renal insufficiency: Cr 1.7, Creatinine 3.0 on admission, today creatinine is 1.5- be. She has bilateral nephrostomy tubes. . She is due for a tube change- not done yet. #Pneumonia treated with ceftriaxone and azithromycin and finished course of Levaquin at home. No clinical evidence of infection today. # Anemia- resolved Plan: 1. Proceed with C13 Pembrolizumab today 2. Increase levothyroxine to 50 mcg- we will continue to monitor it. 3. Next visit with CBC,CMP, TSH, FT4 [...] 3:30 PM EDT Office Visit Hematology/Oncology at [address] [phone] Chase Mckay MD [facility] [address] [place] [address] documented as of this encounter Visit Diagnoses Diagnosis Abnormal thyroid function test Nonspecific abnormal results of thyroid function study documented in this encounter Care Teams Crimper Operator Relationship Specialty Start Date End Date Eren Shah DNP PCP - General Family Medicine 03/20/21 06/10/22 documented as of this encounter
--- OUTSIDE RECORDS SUMMARY | 2023-11-21 15:59 | XMS_ITS | Encounter Summary ---
Author Organization [facility] Address [facility] [place] [address] Care Team Providers Care Roller Printing Supervisor Name Role Phone Eren Shah DNP Primary Care Provider Encounter Details Date Type Department Care Team (Late st Contact Info) Description 11/20/2021 9:00 AM EDT Office Visit Hematology/Oncology at [address] [phone] Jose Lange MD [facility] DR HEMATOLOGY [place] [address] Tea Dimas APRN [facility] [place] [address] Metastatic urothelial carcinoma; Abnormal thyroid function test; Hypothyroidism due to drugs; Primary lung adenocarcinoma, left Social History Tobacco [...] Sign Reading Time Taken Comments Blood Pressure 128/76 11/20/2021 9:01 AM EDT Pulse 87 11/20/2021 9:01 AM EDT Temperature 36 ??C (96.8 ??F) 11/20/2021 9:01 AM EDT Respiratory Rate 18 11/20/2021 9:01 AM EDT Oxygen Saturation 97% 11/20/2021 9:01 AM EDT Inhaled Oxygen Concentration - - Weight 65.3 kg (144 lb) 11/20/2021 9:01 AM EDT Height 163.8 cm (5' 4.49) 11/20/2021 9:01 AM ED T Body Mass Index 24.34 11/20/2021 9:01 AM EDT documented in this encounter Progress Notes * Jose Lange MD - 11/20/2021 9:00 AM EDT Images from the original note were not included. Hematology & Medical Oncology [address] [phone] Barb returns today to continue treatment for [...] distinct lung primary. She was seen by venture capital analyst , who recommended rigid bronchoscopy withattempts to [...] She wasdischarged home on 05/01/21 Interval history 11/20/21 Barb returns today for [...] last visit UTI 09/14/2021 04/26/21-05/01/21 admission to [facility] with pneumonia, Pulmonary hypertension/CHF, BRITNI 04/16/2021 nephrostomy catheter exchange 04/04/21 bronchoscopy and tumor debulking- endobronchial biopsies positive for adenocarcinoma of lung origin Social History: No interval changes since last visit [id number] smoking history quit 6 years ago, does not drink alcohol, used to live independently, but currently moved to her daughters house. Family History: No interval changes since last visit Brother had liver cancer, mother had leukemia, maternal aunt had colon cancer in cousin had bladdercancer Allergies: No Known Allergies Medications: Your Medications Accurate as of November 20, 2021 9:13 AM. If you have any questions, ask your nurse or doctor. Continued medications, unchanged Dose Details ferrous sulfate EC 325 mg (65 mg iron) Tbec Take 325 mg by mouth every other day. 325 mg Refills: 0 levothyroxine 25 mcg Tab Commonly known as: Synthroid Take 1 tablet by mouth daily. 25 mcg Quantity: 30 tablet Refills: 5 prochlorperazine 10 mg Tab Commonly known as: [...] axillary nodes normal Neurologic: Normal Vitals BP 128/76 (Patient Position: Sitting) Pulse 87 Temp 36 ??C (96.8 ??F) (Temporal) Resp 18 Ht 163.8 cm (5' 4.49) Wt 65.3 kg (144 lb) SpO2 97% BMI 24.34 kg/m?? Pathology: Molecular pathology KRAS [...] The assay was performed according to the hvac specialist's ??instructions using Anti-PD-L1 (22C3, pharmDX) antibody. Electronically signed by: ?Herbert Ford MD Verified: ??04/11/2021 8:14 ?? Pathologist Performed at: ??-[facility] Dept. of Pathology, [place], [place] ? Surgical Pathology DIAGNOSIS A - Lung, ??left lower lobe mass, debulking: ?? - Adenocarcinoma, consistent with lung primary. Electronically signed by: ?Sana Dowell MD Verified: ??04/06/2021 11:16 ??Pathologist Performed at: ??-[facility] Dept. of Pathology, [place], [place] DISCUSSION Sections show an invasive, predominantly [...] propria. - No muscularis propria identified. Labs: 11/20/2021 BUN 25, creatinine 1.7, TB 0.7, [...] of presumably metastatic urothelial carcinoma which include [place] based chemotherapy versus immunotherapy. Due to her [...] follows with Palliative Care. #Abnormal thyroid function: Started on levothyroxine 25 mcg last visit. Will monitor thyroid function. TSH is higher than before and her t4 free is low. She will start on synthroid 25 mcg and we will adjust dose as needed. #Renal insufficiency: Cr 1.7, Creatinine 3.0 on admission, today creatinine is 1.5- be. She has bilateral nephrostomy tubes. . She has a follow up appointment with Dr. Beckwith on July 13. #Pneumonia treated with ceftriaxone and azithromycin and finished course of Levaquin at home. No clinical evidence of infection today. # Anemia- multifactoral. Improving, Plan: 1. Proceed with C11 Pembrolizumab today 2. Continue levothyroxine 25 mcg 3. Next visit with CBC,CMP, TSH, FT4 [...] PM EDT Office Visit Hematology/Oncology at [address] [phone] Chase Mckay MD [facility] DR HEMATOLOGY [place] [address] documented as of this encounter Visit Diagnoses Diagnosis Metastatic urothelial carcinoma Secondary malignant neoplasm of other urinary organs Abnormal thyroid function test Nonspecific abnormal results of thyroid function study Hypothyroidism due to drugs Other iatrogenic hypothyroidism Primary lung adenocarcinoma, left documented in this encounter Care Teams Roller Printing Supervisor Relationship Specialty Start Date End Date Eren Shah DNP PCP - General Family Medicine 03/20/21 06/10/22 documented as of this encounter
--- OUTSIDE RECORDS SUMMARY | 2023-11-21 15:59 | XMS_ITS | Encounter Summary ---
[facility] [place] [address] Care Team Providers Care Professor Of Vegetable Science Name Role Phone Eren Shah CHELSEA Primary Care Provider [phone] Encounter Details Date Type Department Care Team (Late st Contact Info) Description 02/12/2022 9:30 AM EDT Office Visit Hematology/Oncology at [address] [phone] Abena Ogden, RN Metastatic urothelial carcinoma; Hematuria, unspecified type; Urinary tract infection associated with nephrostomy catheter, initial encounter Social History Tobacco Use Types Packs/Day Years [...] Reading Time Taken Comments Blood Pressure 146/69 02/12/2022 9:32 AM EDT Pulse 86 02/12/2022 9:32 AM EDT Temperature 36.1 ??C (96.9 ??F) 02/12/2022 9:32 AM ED T Respiratory Rate 18 02/12/2022 9:32 AM EDT Oxygen Saturation 100% 02/12/2022 9:32 AM EDT Inhaled Oxygen Concentration - - Weight 67.4 kg (148 lb 9.6 oz) 02/12/2022 9:32 A M EDT Height 163.8 cm (5' 4.49) 02/12/2022 9:32 AM ED T Body Mass Index 25.12 02/12/2022 9:32 AM EDT documented in this encounter Progress Notes * Abena Ogden, ALESSANDRO - 02/12/2022 9:30 AM EDT Images from the original note were not included. Hematology & Medical Oncology [address] [phone] Barb returns today to continue treatment for Metastatic urothelial carcinoma and primary lung cancer HPI: Barb Bulladr is 71 y.o.F referred by Dr. Arzate [...] distinct lung primary. She was seen by copy clerk , who recommended rigid bronchoscopy withattempts to [...] HTN. She wasdischarged home on 05/01/21 INTERVAL HISTORY(02/12/22)- Barb returns today for followup of her bladder cancer and next dose ofpembrolizumab. She has been having right flank pain since Friday and has noticed some blood in her urine on the left. She had a low grade temp of 100 on Friday. Her brother also over the weekend so she has been under some stress. She has been taking tylenol for the flank pain with relief. She denies any shaking chills. No cough, shortness of breath, chest pain or edema. No nausea orvomiting. No bowel issues. Nephrostomy tubes were changed at the end of December. No other focal complaints today. PMH: Bilateral over the wire conversion of nephro-ureteral stent to 10 Fr nephrostomy catheters 01/18/2022 UTI 09/14/2021 04/26/21-05/01/21 admission to [facility] with pneumonia, Pulmonary hypertension/CHF, BRITNI 04/16/2021 nephrostomy catheter exchange 04/04/21 bronchoscopy and tumor debulking- endobronchial biopsies positive for adenocarcinoma of lung origin Social History: No interval changes since last visit [id number] smoking history quit 6 years ago, does not drink alcohol, used to live independently, but currently moved to her daughters house. Family History: No interval changes since last visit Brother had liver cancer, mother had leukemia, maternal aunt had colon cancer in cousin had bladdercancer Allergies: No Known Allergies Medications: Your Medications Accurate as of February 12, 2022 11:24 AM. If you have any questions, ask your nurse or doctor. New Medications Dose Details ciprofloxacin 500 mg Tab Commonly known as: Cipro Take 1 tablet by mouth every 12 hours. Started by: Abena Ogden APRN 500 mg Quantity: 20 tablet Refills: 0 Continued medications, unchanged Dose Details acetaminophen 500 mg Tab Commonly known as: Tylenol Take 1,000 mg by mouth every 8 hours as needed for Pain. 1,000 mg Refills: 0 levothyroxine 50 mcg Tab Commonly known as: Synthroid Take 1 tablet by mouth daily. 50 mcg Quantity: 90 tablet Refills: 3 prochlorperazine 10 mg Tab Commonly known as: [...] constipation and abdominal distention. Genitourinary:Bilateral nephrostomy tubes. Positive for hematuria. Musculoskeletal: Positive for right flank pain. Skin: Negative. Does have mild rash [...] no organomegaly. Bilateral nephrostomy tube in place. Hematuria on left. Urine light pink. Right with clear yellow urine. Extremities: Extremities normal, atraumatic, no cyanosis or edema Pulses: Skin: Skin color, texture, turgor normal, no rashes or lesions Lymph nodes: Cervical, supraclavicular, and axillary nodes normal Neurologic: Normal Vitals BP 146/69 (Patient Position: Sitting) Pulse 86 Temp 36.1 ??C (96.9 ??F) (Temporal) Resp 18 Ht 163.8 cm (5' 4.49) Wt 67.4 kg (148 lb 9.6 oz) SpO2 100% BMI 25.12 kg/m?? Pathology: Molecular pathology KRAS p.G12C c.34G>T [...] The assay was performed according to the child care development specialist's ??instructions using Anti-PD-L1 (22C3, pharmDX) antibody. Electronically signed by: ?Herbert Ford MD Verified: ??04/11/2021 8:14 ?? Pathologist Performed at: ??-[facility] [place], [place], [place] ? Surgical Pathology DIAGNOSIS A - Lung, ??left lower lobe mass, debulking: ?? - Adenocarcinoma, consistent with lung primary. Electronically signed by: ?Sana Dowell MD Verified: ??04/06/2021 11:16 ??Pathologist Performed at: ??-[facility] [place]. [place], [place], [place] DISCUSSION Sections show an invasive, predominantly [...] propria. - No muscularis propria identified. Labs: 02/12/22- WBC-11.96 Hgb/Hct-11.2/35.7 MCV- 87 Plt-703 ANC-8.23 [...] of presumably metastatic urothelial carcinoma which include [place] based chemotherapy versus immunotherapy. Due to her [...] feels worse she should to to ED. # Low back pain- She is taking Tramadol 50 mg(1/2) every 12 hours with tylenol in between if needed. She follows with Palliative Care. #Abnormal thyroid function: levothyroxine is 50 mcg daily.. Will monitor thyroid function. TSH improving- 5.89. #Renal insufficiency: Cr 1.5 today, stable, Creatinine 3.0 on admission, today creatinine is 1.5- be. She has bilateral nephrostomy tubes. Lasttube exchange was on 01/18/22. # Anemia- mild- asymptomatic. Plan: 1. Reschedule next C14 Pembrolizumab to 02/19/22. 2. Continue levothyroxine 50 mcg a day. 3. Prescription for Cipro 500mg po every 12 hours for 10 days. Urine sent for culture. 4. PET scan is scheduled for 02/18. Barb voiced understanding of the plan and [...] PM EDT Office Visit Hematology/Oncology at [address] [phone] Chase Mckay MD [facility] [place] [address] documented as of this encounter Visit Diagnoses Diagnosis Metastatic urothelial carcinoma Secondary malignant neoplasm of other urinary organs Hematuria, unspecified type Urinary tract infection associated with nephrostomy catheter, initial encounter documented in this encounter Care Teams Professor Of Vegetable Science Relationship Specialty Start Date End Date Eren Shah DNP PCP - General Family Medicine 03/20/21 06/10/22 documented as of this encounter
--- OUTSIDE RECORDS SUMMARY | 2023-11-21 15:59 | XMS_ITS | Encounter Summary ---
Author Organization [place] [address] Care Team Providers Care Life Skills Consultant Name Role Phone Eren Shah CHELSEA Primary Care Provider [phone] Reason for Visit * Reason Comments Chemotherapy C15D1 Pembro * Treatment/Therapy Plan Authorization (Routine) - Closed Specialty Diagnoses / Procedures Referred By Contac t Referred To Contact Hematology and Oncology Diagnoses Metastatic urothelial carcinoma Abnormal thyroid function test Procedures [id number] Jose Barnhart MD [address] [place] [address] [place] [address] Jose Lange MD [address] [place] [address] [place] [address] Referral ID Status Reason Start Date Expiration Date Visits Re quested Visits Authorized [id number] Closed 04/28/2022 06/24/2023 99 99 Encounter Details Date Type Department Care Team (Late st Contact Info) Description 02/19/2022 11:00 AM EDT Infusion Hematology Oncology at [address] [phone] Metastatic urothelial carcinoma Social History Tobacco Use [...] Progress Notes * Audrey Giron RN - 02/19/2022 11:00 AM EDT INFUSION THERAPY ADMINISTRATION NOTES DIAGNOSIS: Urothelial CA CYCLE #14: Day 1 REASON FOR VISIT: Pembrolizumab Infusion SUBJECTIVE Ms. Bullard is here for C15D1 Pembrolizumab. She is overall doing well and has no questions/concerns.Seen by provider today and found ready for treatment. OBJECTIVE LAB DATA: Labs drawn today at [facility] and reviewed by this RN. No holds per treatment plan. IV ACCESS: Mediport accessed by [facility], flushed easily with blood return at [facility]. Able to obtain brisk blood. After infusion, flushed with 20cc NS and [...] clinic in 3 weeks for consideration of C16. Patient was reminded to call in the interim with any questions/concerns. documented in this encounter Plan of Treatment Upcoming Encounters Date Type Department Care Team (Late st Contact Info) Description 12/08/2023 3:30 PM EDT Office Visit Hematology/Oncology at [address] [phone] Chase Mckay MD [facility] DR HEMATOLOGY [place] [address] documented as of this encounter Visit Diagnoses Diagnosis Metastatic urothelial carcinoma Secondary malignant neoplasm of other urinary organs documented in this encounter Administered Medications Inactive Administered Medications - up to 3 most recent administrations Medication Order MAR Action Action Date Dose Rate Site heparin (pf) (porcine) (100 units/mL) flush 5 mL syringe 500 Units 500 Units, Intravenous, ONCE PRN, Starting on Fri02/19/22 at 1125, Until Fri02/19/22 at 1512, Line Care, Refer to Intravenous (IV) Procedure: Accessing Implanted Vascular Access Devices (624) procedure and/or Intravenous (IV) Job Aid: Adult Flushing & Catheter Care (2414) job aid for additional information regarding guidelines and administration., Routine Given 02/19/2022 12:32 PM EDT 500 Units pembrolizumab (Keytruda) 200 mg in sodium chloride 0.9% 108 mL infusion 200 mg, Intravenous, ONCE, 1 dose, On 02/19/22 at 1245, Administer over 30 Minutes, Flush line with NS after each dose., This agent is restricted to outpatient use. Is this drug being given as an outpatient? Yes New Bag 02/19/2022 11:55 AM EDT 200 mg 216 mL/hr sodium chloride 0.9 % (flush) (BD PosiFlush Normal Saline 0.9) flush 5-20 mL 5-20 mL, Intravenous, EVERY 1 MIN PRN, Starting on Fri02/19/22 at 1125, Until Fri02/19/22 at 1512, Line Care, Flush pertains to all indwelling lines. Flush per protocol found in the job aid using the link provided on this medication record. Refer to Intravenous (IV) Job Aid: Adult Flushing & Catheter Care (2509) job aid for additional information regarding guidelines and administration., Routine Given 02/19/2022 12:32 PM EDT 20 mLs sodium chloride 0.9% infusion 100 mL/hr, Intravenous, CONTINUOUS, Starting on Fri02/19/22 at 1145, Until Fri02/19/22 at 1512 New Bag 02/19/2022 11:25 AM EDT 100 mL/hr 100 mL/hr documented in this encounter Care Teams Life Skills Consultant Relationship Specialty Start Date End Date Eren Shah DNP PCP - General Family Medicine 03/20/21 06/10/22 documented as of this encounter
--- OUTSIDE RECORDS SUMMARY | 2023-11-21 15:59 | XMS_ITS | Encounter Summary ---
Author Organization [facility] Address [facility] [place] [address] Care Team Providers Care River Pilot Name Role Phone Eren Shah DNP Primary Care Provider +1 [phone] Encounter Details Date Type Department Care Team (Late st Contact Info) Description 09/18/2021 Notes Only Hematology/Oncology at [address] [phone] Elizabeth Mccray, [facility] MANAGEMENT Social History Tobacco [...] Progress Notes * Elizabeth Mccray MSW - 09/18/2021 11:12 AM EDT Follow up with pt during her infusion visit. Pt indicated she is having an emotional morning but not quite sure why. Offered support. Pt indicated she is keeping active and busy. She is trying to help her daughter with daily chores. She is starting shyam gardening. She is gradually building up her strength and stamina and hopes to walk some trails near her home. Pt did not identify any new needs today. Reminded pt of WATER SYSTEMS DESIGNER availability and contact information. Will follow as indicated. Brief assessment Supportive Counseling documented in this encounter Plan of Treatment Upcoming Encounters Date Type Department Care Team (Late st Contact Info) Description 12/08/2023 3:30 PM EDT Office Visit Hematology/Oncology at [address] [phone] Chase Mckay MD [facility] DR [place] [address] documented as of this encounter Visit Diagnoses Not on filedocumented in this encounter Care Teams River Pilot Relationship Specialty Start Date End Date Eren Shah DNP PCP - General Family Medicine 03/20/21 06/10/22 documented as of this encounter
--- OUTSIDE RECORDS SUMMARY | 2023-11-21 15:59 | XMS_ITS | Encounter Summary ---
Author Organization [facility] [place] [address] Care Team Providers Care Supervisor Felting Name Role Phone Eren Shah CHELSEA Primary Care Provider +1 [phone] Reason for Referral * Diagnostic Test (Routine) - Closed Specialty Diagnoses / Procedures Referred By Contjoslyn t Referred To Contact Radiology Diagnoses Metastatic urothelial carcinoma Procedures IR Nephroureteral (NU) Stent Placement Check/Change Zeferino Rosado MD [facility] [place] [address] [facility] [address] Referral ID Status Reason Start Date Expiration Date V isits Requested Visits Authorized [id number] Closed Specialty Service Requested 10/23/2021 04/24/2023 1 1 Encounter Details Date Type Department Care Team (Late st Contact Info) Description 10/23/2021 [place] [address] Zeferino Rosado MD [facility] [place] [address] Metastatic urothelial carcinoma Social History Tobacco Use [...] PM EDT Office Visit Hematology/Oncology at [address] [phone] Chase Mckay MD [facility] DR HEMATOLOGY [place] [address] documented as of this encounter Results * IR Nephroureteral (NU) Stent Placement Check/Change (01/18/2022 2:05 PM EDT) Anatomical Region Laterality Modality X-Ray Angiograph y Narrative 01/21/2022 11:40 AM EDT IR Procedure Note ?? Procedure: Bilateral nephroureteral (NU) stents exchanged for bilateral nephrostomy tubes. ?? Indication for Procedure: Per Dr. Jossy Bullard??is a 71 y.o.??female??presenting to IR for??bilateral antegrade nephroureteral catheter exchange. ??Past medical history is significant for metastatic urothelial carcinoma causing hydronephrosis status??post??bilateral nephroureteral??catheters placed 02/20/21, last exchanged 10/23/21 with 10 Fr 22 cm catheters. ??Patient returns for routine 3 month exchange. ?? Technique/Findings from Procedure: After obtaining informed consent, the patient was positioned prone. The existing right and left nephro-ureteral tubes and surrounding skin were prepped and draped in sterile fashion. Maximum sterile barrier technique was used throughout. ??2% lidocaine gel was used as local anesthesia. ?? The external portion of the right NU catheter was cut to release the locking loop. Over a ??wire, the right stent was exchanged for a new 10.2 Fr x 22 cm nephro-ureteral stent. When the stent was deployed it would not form as expected within the lower pelvis despite multiple attempts at repositioning. ??The catheter was exchanged over guidewire for an angled catheter position to the expected location of the bladder. ??Contrast injection showed no bladder with contrast passing from ureter, through the urethra and external to the patient. Given insufficient space to place NU stent, decision was made to convert from NU to 10 Fr nephrostomy tube. ??A 10 Ethiopian nephrostomy tube was placed with the pigtail positioned in the renal pelvis, confirmed with contrast injection. ?? Attention was then turned to the left. The left NU was also exchanged for a 10Fr nephrostomy tube. Position was confirmed with ??injection of contrast. The patient tolerated the procedure well. ??Nephrostomy tubes were connected to bag drainage but not anchored with suture. ?? Medications: ??2% lidocaine gel topical ? Contrast: ??50 cc Omni 350, ?? Fluoro Time: ??6.8 mins ?? Est Blood Loss: <5cc. ?? Complications: ??No immediate ?? Impression: 1. ??NUs converted to 10 Fr nephrostomy tubes bilaterally due to negligible bladder volume, unable to form the NU catheters without patient discomfort. 2. Next anticipated exchange in 3 months ?? Resident/Fellow: ??Dr. Juares ?? Attending: Dr. Nice. ??I, Dr. Nice was present throughout this procedure. ??I was present during the intraservice time as documented by the IR Nurse. ?? NUs converted to bilateral nephrostomy tubes due to negligible bladder volume. Zeferino Rosado MD G IR ORDERABLES documented in this encounter Visit Diagnoses Diagnosis Metastatic urothelial carcinoma Secondary malignant neoplasm of other urinary organs Metastatic urothelial carcinoma Secondary malignant neoplasm of other urinary organs documented in this encounter Care Teams Supervisor Felting Relationship Specialty Start Date End Date Eren Shah DNP PCP - General Family Medicine 03/20/21 06/10/22 documented as of this encounter
--- OUTSIDE RECORDS SUMMARY | 2023-11-21 15:59 | XMS_ITS | Encounter Summary ---
Author Organization [facility] Address [facility] [place] [address] Care Team Providers Care Supervisor Broadloom Name Role Phone Eren Shah DNP Primary Care Provider [phone] [phone] Encounter Details Date Type Department Care Team (Latest Contact Info) Description 03/02/2022 Travel Social History Tobacco Use Types Packs/Day [...] PM EDT Office Visit Hematology/Oncology at [address] [phone] Chase Mckay MD [facility] DR [place] [address] documented as of this encounter Visit Diagnoses Not on filedocumented in this encounter Care Teams Supervisor Broadloom Relationship Specialty Start Date End Date Eren Shah DNP PCP - General Family Medicine 03/20/21 06/10/22 documented as of this encounter
--- OUTSIDE RECORDS SUMMARY | 2023-11-21 15:59 | XMS_ITS | Encounter Summary ---
Author Organization [facility] [address] Care Team Providers Care Nuclear Waste Process Operator Name Role Phone Eren Shah CHELSEA Primary Care Provider [phone] Reason for Visit * Reason Comments Chemotherapy C14D1 - Pembro * Treatment/Therapy Plan Authorization (Routine) - Closed Specialty Diagnoses / Procedures Referred By Contac t Referred To Contact Hematology and Oncology Diagnoses Metastatic urothelial carcinoma Abnormal thyroid function test Procedures [id number] Jose Barnhart MD [address] [place] [address] [place] [address] Jose Lange MD [address] [place] [address] [place] [address] Referral ID Status Reason Start Date Expiration Date Visits Re quested Visits Authorized [id number] Closed 04/28/2022 06/24/2023 99 99 Encounter Details Date Type Department Care Team (Late st Contact Info) Description 01/22/2022 11:30 AM EDT Infusion Hematology Oncology at [address] [phone] Metastatic urothelial carcinoma Social History [...] Progress Notes * Audrey Giron RN - 01/22/2022 11:30 AM EDT INFUSION THERAPY ADMINISTRATION NOTES DIAGNOSIS: Urothelial CA CYCLE #14: Day 1 REASON FOR VISIT: Pembrolizumab Infusion SUBJECTIVE Ms. Bullard is here for C14D1 Pembrolizumab. She is overall doing well and has no questions/concerns.Seen by provider today and found ready for treatment. OBJECTIVE LAB DATA: Labs drawn today at [facility] and reviewed by this RN. No holds per treatment plan. IV ACCESS: Mediport accessed by [facility], flushed easily with blood return at [facility]. Able to obtain brisk blood. After infusion, [...] clinic in 3 weeks for consideration of C15. Patient was reminded to call in the interim with any questions/concerns. documented in this encounter Plan of Treatment Upcoming Encounters Date Type Department Care Team (Late st Contact Info) Description 12/08/2023 3:30 PM EDT Office Visit Hematology/Oncology at [address] [phone] Chase Mckay MD [facility] DR [place]ATOLOGY [place] [address] documented as of this encounter Visit Diagnoses Diagnosis Metastatic urothelial carcinoma Secondary malignant neoplasm of other urinary organs documented in this encounter Administered Medications Inactive Administered Medications - up to 3 most recent administrations Medication Order MAR Action Action Date Dose Rate Site heparin (pf) (porcine) (100 units/mL) flush 5 mL syringe 500 Units 500 Units, Intravenous, ONCE PRN, Starting on Fri01/22/22 at 1148, Until Fri01/22/22 at 1532, Line Care, Refer to Intravenous (IV) Procedure: Accessing Implanted Vascular Access Devices (413) procedure and/or Intravenous (IV) Job Aid: Adult Flushing & Catheter Care (1530) job aid for additional information regarding guidelines and administration., Routine Given 01/22/2022 1:07 PM EDT 500 Units pembrolizumab (Keytruda) 200 mg in sodium chloride 0.9% 108 mL infusion 200 mg, Intravenous, ONCE, 1 dose, On Fri01/22/22 at 1315, Administer over 30 Minutes, Flush line with NS after each dose., This agent is restricted to outpatient use. Is this drug being given as an outpatient? Yes New Bag 01/22/2022 12:33 PM EDT 200 mg 216 mL/hr sodium chloride 0.9 % (flush) (BD PosiFlush Normal Saline 0.9) flush 5-20 mL 5-20 mL, Intravenous, EVERY 1 MIN PRN, Starting on Fri01/22/22 at 1148, Until Fri01/22/22 at 1532, Line Care, Flush pertains to all indwelling lines. Flush per protocol found in the job aid using the link provided on this medication record. Refer to Intravenous (IV) Job Aid: Adult Flushing & Catheter Care (7231) job aid for additional information regarding guidelines and administration., Routine Given 01/22/2022 1:07 PM EDT 20 mLs sodium chloride 0.9% infusion 100 mL/hr, Intravenous, CONTINUOUS, Starting on Fri01/22/22 at 1215, Until Fri01/22/22 at 1532 New Bag 01/22/2022 12:03 PM EDT 100 mL/hr 100 mL/hr documented in this encounter Care Teams Nuclear Waste Process Operator Relationship Specialty Start Date End Date Eren Shah DNP PCP - General Family Medicine 03/20/21 06/10/22 documented as of this encounter
--- OUTSIDE RECORDS SUMMARY | 2023-11-21 15:59 | XMS_ITS | Encounter Summary ---
Author Organization [facility] Address [facility] [place] [address] Care Team Providers Care Bank Manager Name Role Phone Eren Shah DNP Primary Care Provider [phone] Encounter Details Date Type Department Care Team (Latest Contact Info) Description 03/08/2022 Travel Social History Tobacco Use Types Packs/Day [...] PM EDT Office Visit Hematology/Oncology at [address] [phone] Chase Mckay MD [facility] DR HEMATOLOGY [place] [address] documented as of this encounter Visit Diagnoses Not on filedocumented in this encounter Care Teams Bank Manager Relationship Specialty Start Date End Date Eren Shah DNP PCP - General Family Medicine 03/20/21 06/10/22 documented as of this encounter
--- OUTSIDE RECORDS SUMMARY | 2023-11-21 15:59 | XMS_ITS | Encounter Summary ---
[place] [address] Care Team Providers Care Catering Sales Manager Name Role Phone Eren Shah CHELSEA Primary Care Provider [phone] Reason for Referral * Diagnostic Test (Routine) - Closed Specialty Diagnoses / Procedures Referred By Contjoslyn t Referred To Contact Radiology Diagnoses Bilateral hydronephrosis Procedures IR Nephroureteral (NU) Stent Placement Check/Change Maria Fernanda Suarez PA [facility] [place] [address] [place] [address] Referral ID Status Reason Start Date Expiration Date V isits Requested Visits Authorized [id number] Closed Specialty Service Requested 10/01/2021 04/02/2023 1 1 Encounter Details Date Type Department Care Team (Late st Contact Info) Description 10/01/2021 [place] [address] Maria Fernanda Suarez PA [facility] [place] [address] Metastatic urothelial carcinoma; Bilateral hydronephrosis Social History Tobacco Use Types Packs/Day [...] PM EDT Office Visit Hematology/Oncology at [address] [phone] Chase Mckay MD [facility] DR [place] [address] documented as of this encounter Results * IR Nephroureteral (NU) Stent Placement Check/Change (10/23/2021 11:56 AM EDT) Anatomical Region Laterality Modality X-Ray Angiograph y Narrative 10/23/2021 12:00 PM EDT IR Procedure Note Procedure: ?Bilateral nephro-ureteral stent exchange (routine) History/indication: ?? 71 yr old F patient w/ metastatic urothelial carcinoma- causing hydronephrosis. She is s/p bilateral NU catheters (10 Fr x 22 cm) placed 02/20/21, last exchanged 07/13/21. The patient returns for routine 3 month exchange. ?? Technique: ?After obtaining informed consent, the patient was positioned prone. The existing right and left nephro-ureteral stents and surrounding skin were prepped and draped in a sterile fashion. 2% lidocaine jelly was used as local anesthesia. The external portion of the catheter was cut to release the locking loop. Over a 0.035 Kimble wire, each stent was exchanged for a similar 10.2 Fr x 22 cm nephro-ureteral stent. The locking loop was formed within the renal pelvis. Position was confirmed with an additional injection of contrast. The patient tolerated the procedure well. Complications: ?None immediate; ??EBL=0 Medications: ??2% lidocaine jelly Contrast: 10 cc non-ionic/omnipaque Fluoroscopy time: ??3.3 minutes Impression: ??Bilateral over the wire nephro-ureteral stent exchange as detailed above. Next change anticipated in 3 months time. IR Resident: ?? Byron Rowell MD Attending: ?Aditya Rosado MD (I was present for the entire procedure) I was present during the intraservice time as documented by the IR Nurse. Alexis De La Cruz MD IM IR ORDERABLES documented in this encounter Visit Diagnoses Diagnosis Metastatic urothelial carcinoma Secondary malignant neoplasm of other urinary organs Bilateral hydronephrosis Hydronephrosis Bilateral hydronephrosis Hydronephrosis documented in this encounter Care Teams Catering Sales Manager Relationship Specialty Start Date End Date Eren Shah DNP PCP - General Family Medicine 03/20/21 06/10/22 documented as of this encounter
--- OUTSIDE RECORDS SUMMARY | 2023-11-21 15:59 | XMS_ITS | Encounter Summary ---
[place] [address] Care Team Providers Care Selling Manager Name Role Phone Eren Shah CHELSEA Primary Care Provider [phone] Reason for Referral * Diagnostic Test (Routine) - Closed Specialty Diagnoses / Procedures Referred By Contac t Referred To Contact Radiology Diagnoses Bilateral hydronephrosis Procedures IR Nephroureteral (NU) Stent Placement Check/Change Maria Fernanda Suarez PA [facility] [place] [address] [facility] [place] [address] Referral ID Status Reason Start Date Expiration Date V isits Requested Visits Authorized [id number] Closed Specialty Service Requested 10/01/2021 04/02/2023 1 1 Reason for Visit * Diagnostic Test (Routine) - Closed Specialty Diagnoses / Procedures Referred By Contac t Referred To Contact Radiology Diagnoses Bilateral hydronephrosis Procedures IR Nephroureteral (NU) Stent Placement Check/Change Maria Fernanda Suarez PA [facility] [place] [address] [facility] [place] [address] Referral ID Status Reason Start Date Expiration Date V isits Requested Visits Authorized [id number] Closed Specialty Service Requested 10/01/2021 04/02/2023 1 1 Encounter Details Date Type Department Care Team (Latest Contact Info) Description 10/23/2021 10:45 AM EDT - 10/23/2021 11:59 PM EDT Hospital Encounter Radiology at [facility] [place] [address] Alexis De La Cruz MD [facility] [place] [address] Bilateral hydronephrosis Discharge Disposition: Home Social History [...] Sign Reading Time Taken Comments Blood Pressure 152/80 10/23/2021 11:50 AM EDT Pulse 67 10/23/2021 11:20 AM EDT Temperature 36.4 ??C (97.5 ??F) 10/23/2021 12:00 PM E DT Respiratory Rate 18 10/23/2021 11:20 AM EDT Oxygen Saturation 97% 10/23/2021 12:00 PM EDT Inhaled Oxygen Concentration - - Weight - - Height - - Body Mass Index - - documented in this encounter Discharge Instructions * Discharge Instructions* Sonal Bright RN - 10/23/2021 11:34 AM EDT documented in this encounter Medications at Time of Discharge Medication Sig Dispensed Refills Start Date End Date senna (Senokot) 8.6 mg Tablet Take 1 tablet by mouth daily as needed for Constipation. traMADoL (Ultram) 50 mg TabletIndications:Metas tatic urothelial carcinoma Take 0.5-1 tablets by mouth every 6 hours as needed for Pain. 30 tablet 07/17/2021 01/11/2022 prochlorperazine (Compazine) 10 mg Tablet Take 1 tablet by mouth every 6 hours as needed for Nausea. 15 tablet 04/18/2021 05/13/2023 ferrous sulfate EC 325 mg (65 mg iron) Tablet, Delayed Release (E.C.) Take 325 mg by mouth every other day. 02/25/2021 01/22/2022 documented as of this encounter Progress Notes * Madelin Doshi RN - 10/23/2021 12:07 PM EDT Report received from Mayra UGARTE. Pt tolerated procedure, he denied pain at this time , dischargeteaching done on medication activity , nutrition and follow up appointment, pt verbalized understanding. Pt has no IV access, dressing intact on drain site. Pt chose to ambulate to the car. * Sonal Bright RN - 10/23/2021 11:23 AM EDT [facility] NURSING DATABASE Name: BARB BULLARD Date of : 1950 AGE: 71 y.o. Address: [address] [place] [phone] (home) Mobile: Telephone Information: Referring Provider: Maria Fernanda Suarez REASON FOR VISIT: Order Questions Answers Where will study be performed? [facility] Radiology [120] Reason for exam and clinical history: Routine 3-month bilateral NU stent exchange Is the patient on anticoagulant / antiplatelet therapy ? No No Known Allergies Pertinent PMH: Patient Active Problem List Diagnosis Code ??? Metastatic urothelial carcinoma C79.10 ??? Abnormal thyroid function test R94.6 ??? Anemia D64.9 ??? Bilateral hydronephrosis N13.30 ??? Folate deficiency E53.8 ??? Lung mass R91.8 ??? Obstructive uropathy N13.9 ??? 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 C34.32 Pertinent PSH: Past Surgical History: Procedure Laterality Date ??? IR MEDIPORT PLACEMENT 04/02/2021 IR Mediport Placement 04/02/2021 Yuval Sinclair PA [facility] INTERVENTIONL RAD ??? IR NEPHROSTOMY TUBE PLACEMENT PERCUTANEOUS BILATERAL 02/20/2021 IR Nephrostomy Tube Placement Percutaneous Bilateral [facility] INTERVENTIONL RAD ??? IR NEPHROURETERAL (NU) STENT PLACEMENT/CHECK/CHANGE 07/13/2021 IR Nephroureteral (NU) Stent Placement Check/Change 07/13/2021 Alexis De La Cruz MD [facility] INTERVENTIONLRAD ? ? PRO [facility] EBUS GUIDED SAMPL 3/> NODE STATION/STRUX N/A 04/04/2021 BRONCH, W ENDOBRONCHIAL ULTRASOUND (EBUS) GUIDED SAMPLING, 3+ NODES (WRVU 5.21) performed by Alonzo Cevallos MD at [facility] MAIN OR ??? PRO BRONCHOSCOPY, DIAGNOSTIC W LAVAGE N/A 04/04/2021 BRONCHOSCOPY, RIGID OR FLEXIBLE, WITH BRONCHIAL ALVEOLAR LAVAGE (WRVU 2.88) performed by Alonzo Cevallos MD at [facility] MAIN OR Date/Procedure Meds given/comments 02/20/21 b/l PCN Placement?? No abx - covered from meds at OSH?4 mg midazolam,??175??mcg fentanyl ??04/02/21??Right chest port placement?local lidocaine, 2g Ancef,??3mg midazolam,??150mcg fentanyl 04/16/21 B/L Double J Stent Exchange ??Lido Jelly ??07/13/2021 Bileteral Nu exchange ??Cipro 500 mg PO, Local only, pt was in a lot of pain, may consider fentanyl for next exchange. ??10/23/21 Bilateral NU tube change PO: Cipro 500mg; SQ: 1% lidocaine (admin by MD); Topical; 2% lidocaine jelly ? Laboratory Results: Lab Results Component Value Date CREATININE 1.54 (H) 07/13/2021 Lab Results Component Value Date K 4.5 04/16/2021 Lab Results Component Value Date PLATELET 873 (H) 04/16/2021 Intra procedure nursing documentation 1112 to procedure room IR2 via stretcher. Transferred to table in prone position with assistance. Monitors, O2 and safety strap in place. 1131 Intra procedural timeout preformed with team at bedside. Safe to proceed. 1148 Bilateral NU tube exchange complete. No complications noted. 1155 patient transferred back to stretcher in supine position. Monitor, O2 and safety devices removed. Dressing C/D/I, VSS, NAD. Transferred to recovery room without incident. Sonal Bright RN documented in this encounter Plan of Treatment Upcoming Encounters Date Type Department Care Team (Late st Contact Info) Description 12/08/2023 3:30 PM EDT Office Visit Hematology/Oncology at [address] [phone] Chase Mckay MD [facility] DR HEMATOLOGY [place] [address] documented as of this encounter Procedures Procedure Name Priority Date/Time Associated Diagnosis Comments IR NEPHROURETERAL (NU) STENT PLACEMENT/CHECK/CHANGE Routine 10/23/2021 11:56 AM EDT Bilateral hydronephrosis documented in this encounter Results * IR Nephroureteral (NU) [...] IR Nurse. Alexis De La Cruz MD IMG IR ORDERABLES documented in this encounter Visit Diagnoses Diagnosis Bilateral hydronephrosis Hydronephrosis documented in this encounter Administered Medications Inactive Administered Medications - up to 3 most recent administrations Medication Order MAR Action Action Date Dose Rate Site ciprofloxacin (Cipro) tablet 500 mg 500 mg, Oral, ONCE, 1 dose, On Fri10/23/21 at 1130, Angio/IR (Intra-Procedure), Routine, Indication for (Active or Suspected): Prophylaxis Given 10/23/2021 11:04 AM EDT 500 mg iohexoL (Omnipaque) (350 mg/mL) solution 50 mL 50 mL, Other, ONCE PRN, Starting on Fri10/23/21 at 1145, Until Fri10/24/21 at 0434, Per Protocol, Warning Vesicant/Irritant Medication , Routine Given 10/23/2021 11:35 AM EDT 10 mLs lidocaine (Xylocaine) 1% (10 mg/mL) injection 10 mg 10 mg, Subcutaneous, ONCE, 1 dose, On Fri10/23/21 at 1130, For use in Interventional Radiology (IR) only for procedure with direct provider supervision and verbal order., Angio/IR (Intra-Procedure), Routine Given 10/23/2021 11:35 AM EDT 10 mg sodium chloride 0.9 % (flush) (BD PosiFlush Normal Saline 0.9) flush 5 mL 5 mL, Intravenous, 2 TIMES DAILY, First dose on Fri10/23/21 at 1130, Until Discontinued, Routine Given 10/23/2021 11:30 AM EDT 5 mLs documented in this encounter Care Teams Selling Manager Relationship Specialty Start Date End Date Eren Shah DNP PCP - General Family Medicine 03/20/21 06/10/22 documented as of this encounter
--- OUTSIDE RECORDS SUMMARY | 2023-11-21 15:59 | XMS_ITS | Encounter Summary ---
Author Organization [facility] Address [facility] [place] [address] Care Team Providers Care Mellowing Machine Operator Name Role Phone Eren Shah DNP Primary Care Provider [phone] Encounter Details Date Type Department Care Team (Late st Contact Info) Description 03/12/2022 11:00 AM EST Office Visit Hematology/Oncology at [address] [phone] Jose Lange MD [facility] [place] [address] Abena Ogden, RN Metastatic urothelial carcinoma; Hypothyroidism due to drugs; Primary lung adenocarcinoma, [...] Sign Reading Time Taken Comments Blood Pressure - - Pulse 73 03/12/2022 11:26 AM EST Temperature 36.9 ??C (98.4 ??F) 03/12/2022 11:[address] Respiratory Rate 16 03/12/2022 11:26 AM EST Oxygen Saturation 100% 03/12/2022 11:26 AM EST Inhaled Oxygen Concentration - - Weight 67.6 kg (149 lb) 03/12/2022 11:26 AM EST Height 163.8 cm (5' 4.49) 03/12/2022 11:[address] Body Mass Index 25.19 03/12/2022 11:26 AM EST documented in this encounter Progress Notes * Jose Lange MD - 03/12/2022 11:00 AM EST Images from the original note were not included. Hematology & Medical Oncology [place] [phone] Barb returns today to continue treatment for [...] distinct lung primary. She was seen by stem dryer maintainer , who recommended rigid bronchoscopy withattempts to [...] HTN. She wasdischarged home on 05/01/21 INTERVAL HISTORY(03/12/22)- Barb returns today for followup of her bladder cancer, discussion on restaging PET scan and next dose of pembrolizumab. She had a fall and one episode of bleeding from left nephrostomy which cleared out on its own. Both nephrostomy tubes are draining well now. She is scheduled for nephrostomy tube replacement on April 12. Barb feels well. Denies any fever or chills. Bowel movements are regular. No nausea or vomiting. No other focal complaints today. PMH: No interval changes since last visit UTI 02/12/2022 Bilateral over the wire conversion of nephro-ureteral stent to 10 Fr nephrostomy catheters 01/18/2022 UTI 09/14/2021 04/26/21-05/01/21 admission to [facility] with pneumonia, Pulmonary hypertension/CHF, BRITNI 04/16/2021 nephrostomy catheter exchange 04/04/21 bronchoscopy and tumor debulking- endobronchial biopsies positive for adenocarcinoma of lung origin Social History: No interval changes since last visit [id number] smoking history quit 6 years ago, does not drink alcohol, used to live independently, but currently moved to her daughters house. Family History: No interval changes since last visit Brother had liver cancer, mother had leukemia, maternal aunt had colon cancer in cousin had bladdercancer Allergies: No Known Allergies Medications: Your Medications Accurate as of March 12, 2022 11:26 AM. If you have any questions, ask your nurse or doctor. Continued medications, unchanged Dose Details acetaminophen 500 mg Tab Commonly known as: Tylenol Take 1,000 mg by mouth every 8 hours as needed for Pain. 1,000 mg Refills: 0 ciprofloxacin 500 mg Tab Commonly known as: Cipro Take 1 tablet by mouth every 12 hours. 500 mg Quantity: 20 tablet Refills: 0 levothyroxine 75 mcg Tab Commonly [...] and axillary nodes normal Neurologic: Normal Vitals There were no vitals taken for this visit. Pathology: Molecular pathology KRAS p.G12C c.34G>T A [...] The assay was performed according to the front desk agent's ??instructions using Anti-PD-L1 (22C3, pharmDX) antibody. Electronically signed by: ?Herbert Ford MD Verified: ??04/11/2021 8:14 ?? Pathologist Performed at: ??-[facility] Dept. of Pathology, [place], [place] ? Surgical Pathology DIAGNOSIS A - Lung, ??left lower lobe mass, debulking: ?? - Adenocarcinoma, consistent with lung primary. Electronically signed by: ?Sana Dowell MD Verified: ??04/06/2021 11:16 ??Pathologist Performed at: ??-[facility] Dept. of Pathology, [place], [place] DISCUSSION Sections show an invasive, predominantly [...] propria. - No muscularis propria identified. Labs: 03/12/2022 BUN 15, creatinine 1.7, calcium 9, [...] creatinine 1.9, calcium 10.3 Imagin03/08/2022 PET scan: Report is pending 11/14/21 PET scan: IMPRESSION 1. Persistent large [...] metastatic urothelial carcinoma which include [place] based chemotherapy versus immunotherapy. Due to her [...] feels worse she should to to ED. 03/22/22 PET scan report is pending. I personally reviewed PET scan. With exception of 1 new avid mediastinal lymph node I do not see any changes compared to previous PET scan. Overall, looks like stable disease in my eyes. Barb feels well. We will proceed with pembrolizumab today. She is scheduled for restaging PET scan on March 08. We will see her back in 3 [...] 01/18/22. # Anemia- mild- asymptomatic. Plan: 1. C15 Pembrolizumab today 2. 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
--- OUTSIDE RECORDS SUMMARY | 2023-11-21 15:59 | XMS_ITS | Encounter Summary ---
Author Organization [facility] [place] [address] Care Team Providers Care Paraprofessional Aide Teacher Name Role Phone Eren Shah CHELSEA Primary Care Provider [phone] Reason for Visit * Reason Comments Chemotherapy Cycle 12, Day 1 Pemb rolizumab * Treatment/Therapy Plan Authorization (Routine) - Closed Specialty Diagnoses / Procedures Referred By Contac t Referred To Contact Hematology and Oncology Diagnoses Metastatic urothelial carcinoma Abnormal thyroid function test Procedures [id number] Jose Barnhart MD [address] [place] [address] DR HEMATOLOGY [place] [address] Jose Lange MD [address] [place] [address] DR HEMATOLOGY [place] [address] Referral ID Status Reason Start Date Expiration Date Visits Re quested Visits Authorized [id number] Closed 04/28/2022 06/24/2023 99 99 Encounter Details Date Type Department Care Team (Late st Contact Info) Description 12/11/2021 10:00 AM EDT Infusion Hematology Oncology at [address] [phone] Metastatic urothelial carcinoma; Abnormal thyroid [...] Sign Reading Time Taken Comments Blood Pressure 117/64 12/11/2021 10:03 AM EDT Pulse 73 12/11/2021 10:03 AM EDT Temperature 36.1 ??C (97 ??F) 12/11/2021 10:03 AM EDT Respiratory Rate 16 12/11/2021 10:03 AM EDT Oxygen Saturation 97% 12/11/2021 10:03 AM EDT Inhaled Oxygen Concentration - - Weight 67 kg (147 lb 9.6 oz) 12/11/2021 10:03 AM EDT Height 163.8 cm (5' 4.49) 12/11/2021 10:03 AM E DT Body Mass Index 24.95 12/11/2021 10:03 AM EDT documented in this encounter Progress Notes * Audrey Giron RN - 12/11/2021 10:00 AM EDT INFUSION THERAPY ADMINISTRATION NOTES DIAGNOSIS: Urothelial CA CYCLE #12: Day 1 REASON FOR VISIT: Pembrolizumab Infusion SUBJECTIVE Ms. Bullard is here for C12D1 Pembrolizumab. She is overall doing well and has no questions/concerns.Ready for treatment today. OBJECTIVE LAB DATA: Labs drawn today at [facility] and reviewed by this RN. No holds per treatment plan. IV ACCESS: Mediport accessed by [facility], flushed easily with blood return at [facility]. Pt reports it was has been positional the last few blood draws. Able to obtain brisk blood return with repositioning. Pre administration: Chemotherapy orders independently verified for drug name, route, and dosage per patient's height, weight and BSA by Audrey Aguirre RN and pharmacist on-site. REACTIONS (DESCRIPTION, TIME, INTERVENTION AND EFFECTIVENESS) none ASSESSMENT Ms Bullard was awake, alert and tolerated treatment well. PLAN Return to clinic in 3 weeks for consideration of C13. Patient was reminded to call in the interim with any questions/concerns. documented in this encounter Plan of Treatment Upcoming Encounters Date Type Department Care Team (Late st Contact Info) Description 12/08/2023 3:30 PM EDT Office Visit Hematology/Oncology at [address] [phone] Chase Mckay MD [facility] DR HEMATOLOGY [place] [address] documented as of this encounter Visit Diagnoses [...] 500 Units, Intravenous, ONCE PRN, Starting on Fri12/11/21 at 1004, Until Fri12/11/21 at 1455, Line Care, Refer to Intravenous (IV) Procedure: Accessing Implanted Vascular Access Devices (654) procedure and/or Intravenous (IV) Job Aid: Adult Flushing & Catheter Care (8720) job aid for additional information regarding guidelines and administration., Routine Given 12/11/2021 11:18 AM EDT 500 Units pembrolizumab (Keytruda) 200 mg in sodium chloride 0.9% 108 mL infusion 200 mg, Intravenous, ONCE, 1 dose, On Fri12/11/21 at 1130, Administer over 30 Minutes, Flush line with NS after each dose., This agent is restricted to outpatient use. Is this drug being given as an outpatient? Yes New Bag 12/11/2021 10:41 AM EDT 200 mg 216 mL/hr sodium chloride 0.9 % (flush) (BD PosiFlush Normal Saline 0.9) flush 5-20 mL 5-20 mL, Intravenous, EVERY 1 MIN PRN, Starting on Fri12/11/21 at 1004, Until Fri12/11/21 at 1455, Line Care, Flush pertains to all indwelling lines. Flush per protocol found in the job aid using the link provided on this medication record. Refer to Intravenous (IV) Job Aid: Adult Flushing & Catheter Care (3494) job aid for additional information regarding guidelines and administration., Routine Given 12/11/2021 11:18 AM EDT 20 mLs sodium chloride 0.9% infusion 100 mL/hr, Intravenous, CONTINUOUS, Starting on Fri12/11/21 at 1030, Until Fri12/11/21 at 1455 New Bag 12/11/2021 10:15 AM EDT 100 mL/hr 100 mL/hr documented in this encounter Care Teams Paraprofessional Aide Teacher Relationship Specialty Start Date End Date Eren Shah DNP PCP - General Family Medicine 03/20/21 06/10/22 documented as of this encounter
--- OUTSIDE RECORDS SUMMARY | 2023-11-21 15:59 | XMS_ITS | Encounter Summary ---
Author Organization [facility] Address [facility] [place] [address] Care Team Providers Care Suede Brusher Name Role Phone Eren Shah DNP Primary Care Provider [phone] Encounter Details Date Type Department Care Team (Late st Contact Info) Description 02/19/2022 10:30 AM EDT Office Visit Hematology/Oncology at [address] [phone] Jose Lange MD [facility] DR HEMATOLOGY [place] [address] Abena Ogden RN Metastatic urothelial carcinoma; Urinary tract infection associated with nephrostomy catheter, initial encounter; Abnormal thyroid function test; Hypothyroidism due to [...] Sign Reading Time Taken Comments Blood Pressure 130/69 02/19/2022 10:51 AM EDT Pulse 87 02/19/2022 10:51 AM EDT Temperature 36.2 ??C (97.1 ??F) 02/19/2022 10:51 AM E DT Respiratory Rate 16 02/19/2022 10:51 AM EDT Oxygen Saturation 99% 02/19/2022 10:51 AM EDT Inhaled Oxygen Concentration - - Weight 68 kg (150 lb) 02/19/2022 10:51 AM EDT Height 163.8 cm (5' 4.49) 02/19/2022 10:51 AM E DT Body Mass Index 25.36 02/19/2022 10:51 AM EDT documented in this encounter Progress Notes * Jose Lange MD - 02/19/2022 10:30 AM EDT Images from the original note were not included. Hematology & Medical Oncology [address] [phone] Barb returns today to continue treatment for [...] distinct lung primary. She was seen by bank vault clerk , who recommended rigid bronchoscopy withattempts [...] HTN. She wasdischarged home on 05/01/21 INTERVAL HISTORY(02/19/22)- Barb returns today for followup of her bladder cancer and next dose ofpembrolizumab. She was diagnosed with UTI and currently on antibiotics. She will complete course ofciprofloxacin in about 2 days. Feels well. Denies any fever or chills. Bowel movements are regular.No nausea or vomiting. No other focal complaints today. PMH: UTI 02/12/2022 Bilateral over the wire conversion of nephro-ureteral stent to 10 Fr nephrostomy catheters 01/18/2022 UTI 09/14/2021 04/26/21-05/01/21 admission to [facility] with pneumonia, Pulmonary hypertension/CHF, BRITNI 04/16/2021 nephrostomy catheter exchange 04/04/21 bronchoscopy and tumor debulking- endobronchial biopsies positive for adenocarcinoma of lung origin Social History: No interval changes since last visit [id number] smoking history quit 6 years ago, does not drink alcohol, used to live independently, but currently moved to her daughters house. Family History: No interval changes since last visit Brother had liver cancer, mother had leukemia, maternal aunt had colon cancer in cousin had bladdercancer Allergies: No Known Allergies Medications: Your Medications Accurate as of February 19, 2022 11:04 AM. If you have any questions, ask [...] mg Quantity: 20 tablet Refills: 0 levothyroxine 50 mcg Tab Commonly [...] axillary nodes normal Neurologic: Normal Vitals BP 130/69 (Patient Position: Sitting) Pulse 87 Temp 36.2 ??C (97.1 ??F) (Temporal) Resp 16 Ht 163.8 cm (5' 4.49) Wt 68 kg (150 lb) SpO2 99% BMI 25.36 kg/m?? Pathology: Molecular pathology KRAS p.G12C c.34G>T [...] The assay was performed according to the restaurant inspector's ??instructions using Anti-PD-L1 (22C3, pharmDX) antibody. Electronically signed by: ?Liliana CAMARGO, Herbert Pope Verified: ??04/11/2021 8:14 ?? Pathologist Performed at: ??-[facility] Dept. of Pathology, [place], [place] ? Surgical Pathology DIAGNOSIS A - Lung, ??left lower lobe mass, debulking: ?? - Adenocarcinoma, consistent with lung primary. Electronically signed by: ?Sana Dowell MD Verified: ??04/06/2021 11:16 ??Pathologist Performed at: ??-[facility] Dept. of Pathology, [place], [place] DISCUSSION Sections show an invasive, predominantly [...] propria. - No muscularis propria identified. Labs: 02/19/2022 BUN 20, creatinine 1.5, calcium 8.7, [...] of presumably metastatic urothelial carcinoma which include [place] based chemotherapy versus immunotherapy. Due to her [...] feels worse she should to to ED. 02/19/22 Barb feels well. She will complete antibiotics in 2 days. Bowel movements are regular. Frankie proceed with pembrolizumab today. She is scheduled [...] 01/18/22. # Anemia- mild- asymptomatic. Plan: 1. C14 Pembrolizumab today 2. Increase levothyroxine 75 mcg a day. 3. PET scan is scheduled for 03/08 4. Next visit with CBC, CMP, TSH, [...] PM EDT Office Visit Hematology/Oncology at [address] [phone] Chase Mckay MD [facility] DR HEMATOLOGY [place] [address] documented as of this encounter Visit Diagnoses Diagnosis Metastatic urothelial carcinoma Secondary malignant neoplasm of other urinary organs Urinary tract infection associated with nephrostomy catheter, initial encounter Abnormal thyroid function test Nonspecific abnormal results of thyroid function study Hypothyroidism due to drugs Other iatrogenic hypothyroidism Primary lung adenocarcinoma, left documented in this encounter Care Teams Suede Brusher Relationship Specialty Start Date End Date Eren Shah DNP PCP - General Family Medicine 03/20/21 06/10/22 documented as of this encounter
--- OUTSIDE RECORDS SUMMARY | 2023-11-21 15:59 | XMS_ITS | Encounter Summary ---
Author Organization [facility] Address [facility] [place] [address] Care Team Providers Care Miner Assistant Name Role Phone AlyssaEren gibbons CHELSEA Primary Care Provider [phone] Reason for Visit * Reason Comments IV Access Port flush; no infus ion today Encounter Details Date Type Department Care Team (Late st Contact Info) Description 02/12/2022 10:00 AM EDT Infusion Hematology Oncology at [address] [phone] Metastatic urothelial carcinoma Social History [...] Progress Notes * Audrey Giron RN - 02/12/2022 10:00 AM EDT INFUSION THERAPY ADMINISTRATION NOTES DIAGNOSIS: Bladder [...] PM EDT Office Visit Hematology/Oncology at [address] [phone] Chase Mckay MD [facility] DR [place] [address] documented as of this encounter Visit Diagnoses Diagnosis Metastatic urothelial carcinoma Secondary malignant neoplasm of other urinary organs documented in this encounter Care Teams Miner Assistant Relationship Specialty Start Date End Date Eren Shah DNP PCP - General Family Medicine 03/20/21 06/10/22 documented as of this encounter
--- OUTSIDE RECORDS SUMMARY | 2023-11-21 15:59 | XMS_ITS | Encounter Summary ---
Author Organization [facility] Address [facility] [place] [address] Care Team Providers Care Broadcast News Producer Name Role Phone Eren Shah DNP Primary Care Provider [phone] Encounter Details Date Type Department Care Team (Late st Contact Info) Description 10/01/2021 Orders [place] [phone] Axel Raya MD [facility] [place] [address] Social History Tobacco Use Types Packs/Day Years [...] as of this encounter H&P Notes * Axel Raya MD - 10/01/2021 1:23 PM EDT Images from the original note were not included. INTERVENTIONAL RADIOLOGY FOCUSED H&P and PRE-PROCEDURE NOTE: PCP: Eren Shah APRN Referring Provider: Maria Fernanda Suarez PA Planned Procedure: Planned procedure: Bilateral NU stent exchange Procedure Indication: metastatic urothelial carcinoma with hydronephrosis Procedure Request: Procedure request received through the Interventional Radiology eDH order queue. Presenting Diagnosis/ Complaint: Barb Bullard is a 71 y.o. female with metastatic urothelial carcinoma causing hydronephrosis s/p bilateral NU catheters placed 02/20/21, last exchanged 07/13/21 with 10 Fr 22 cm catheters. Patient returns for routine 3 month exchange. Past Medical/Surgical History: Patient Active Problem List [...] IR Mediport Placement 04/02/2021 Yuval Sinclair PA [facility] INTERVENTIONL RAD ??? IR NEPHROSTOMY TUBE PLACEMENT PERCUTANEOUS BILATERAL 02/20/2021 IR Nephrostomy Tube Placement Percutaneous Bilateral [facility] INTERVENTIONL RAD ??? IR NEPHROURETERAL (NU) STENT PLACEMENT/CHECK/CHANGE 07/13/2021 IR Nephroureteral (NU) Stent Placement Check/Change 07/13/2021 Alexis De La Cruz MD [facility] INTERVENTIONLRAD ? ? PRO [facility] EBUS GUIDED SAMPL 3/> NODE STATION/STRUX N/A 04/04/2021 BRONCH, W ENDOBRONCHIAL ULTRASOUND (EBUS) GUIDED SAMPLING, 3+ NODES (WRVU 5.21) performed by Alonzo Cevallos MD at [facility] MAIN OR ??? PRO BRONCHOSCOPY, DIAGNOSTIC W LAVAGE N/A 04/04/2021 BRONCHOSCOPY, RIGID OR FLEXIBLE, WITH BRONCHIAL ALVEOLAR LAVAGE (WRVU 2.88) performed by Alonzo Cevallos MD at [facility] MAIN OR Medications: Current Outpatient Medications on File Prior to Visit Medication Sig Dispense Refill ??? ciprofloxacin (Cipro) 500 mg Tablet Take 1 tablet by mouth 2 times daily. 20 tablet 0 ??? senna (Senokot) 8.6 mg Tablet Take by mouth daily. ??? traMADoL (Ultram) 50 mg Tablet Take 0.5-1 tablets by mouth every 6 hours as needed for Pain. 30tablet 0 ??? prochlorperazine (Compazine) 10 mg Tablet Take 1 tablet by mouth every 6 hours as needed for Nausea. (Patient not taking: No sig reported) 15 tablet 0 ??? ferrous sulfate EC 325 mg (65 mg iron) Tablet, Delayed Release (E.C.) Take 325 mg by mouth every other day. No current facility-administered medications on file prior [...] file Tobacco Use ??? Smoking status: Former Smoker Types: Cigarettes Quit date: 07/04/2014 Years since quittin.2 ??? Smokeless tobacco: Never Used Vaping Use ??? Vaping Use: Never used [...] 8.2 (H) 04/16/2021 K 4.5 04/16/2021 Imaging: NU exchange 07/13/21 Physical Exam: Pending (to be performed in angio the day of procedure) ASA: Pending (to be assessed in angio the day of procedure) Mallampati Class: Pending (to be assessed in angio the day of procedure) Assessment: Barb Bullard is a 71 y.o. female with metastatic urothelial carcinoma causing hydronephrosis s/p bilateral NU catheters placed 02/20/21, last exchanged 07/13/21 with 10 Fr 22 cm catheters. Patient returns for routine 3 month exchange. Plan: Planned procedure: Bilateral NU stent exchange Labs to be performed day of procedure: No labs Sedation: No Sedation Prophylactic antibiotic : Cipro Contrast: CO2; Omnipaque Planned access site: bilateral flanks Position: Prone Consent: Scanned Medications to discontinue (and days held): None Case Urgency:: G- Other (non E or F elective cases) 10/01/2021 documented in this encounter Plan of Treatment Upcoming Encounters Date Type Department Care Team (Late st Contact Info) Description 12/08/2023 3:30 PM EDT Office Visit Hematology/Oncology at [address] [phone] Chase Mckay MD [facility] DR HEMATOLOGY [place] [address] documented as of this encounter Visit Diagnoses Not on filedocumented in this encounter Care Teams Broadcast News Producer Relationship Specialty Start Date End Date Eren Shah DNP PCP - General Family Medicine 03/20/21 06/10/22 documented as of this encounter
--- OUTSIDE RECORDS SUMMARY | 2023-11-21 15:59 | XMS_ITS | Encounter Summary ---
Author Organization [facility] Address [facility] [place] [address] Care Team Providers Care Waistband Setter Lockstitch Name Role Phone Eren Shah DNP Primary Care Provider Encounter Details Date Type Department Care Team (Late st Contact Info) Description 01/11/2022 Orders Only Hematology/Oncology at [address] [phone] Jose Lange MD [facility] [address] [place] [address] Metastatic urothelial carcinoma Social History Tobacco Use [...] Progress Notes * Gay Marshall RN - 01/11/2022 3:42 PM EDT Images from the original note were not included. Wendy Cárdenas Hem Onc Nurse Barb called looking for a rerfill on her traMADoL (Ultram) 50 mg Tablet [[id number]]. She says she has four tablets left. She does not take them every day but has been taking them more recently due to soreness around her nephrology tube. She is due to get that out next Friday down in [place]. Please send the refill to [facility] in [place]. If you have any questions, her number is [phone] RN phone call to patient to discuss soreness around her nephrostomy tube. No answer, left message requesting call back. Review of chart suggests this is appropriate refill request. Last Rx for Tramadol written was from 06/2021. Prescription pended and routed to Dr. Lange for review and e-sign if agreeable. 1640 - patient called clinic back. States that she has some discomfort at nephrostomy tube site butjust very annoying. Denies redness, swelling, drainage around area. Denies fevers. She has appt on 01/18 to have nephrostomy tubes replaced. Advised that she call [facility] on-call with any s/s of infection as above or with worsening pain. Verified that she has on-call number. Notified her that Rx for Tramadol was sent in today by Dr. Lange. documented in this encounter Plan of Treatment Upcoming Encounters Date Type Department Care Team (Late st Contact Info) Description 12/08/2023 3:30 PM EDT Office Visit Hematology/Oncology at [address] [phone] Chase Mckay MD [facility] [address] [place] [address] documented as of this encounter Visit Diagnoses Diagnosis Metastatic urothelial carcinoma Secondary malignant neoplasm of other urinary organs documented in this encounter Care Teams Waistband Setter Lockstitch Relationship Specialty Start Date End Date Eren Shah DNP PCP - General Family Medicine 03/20/21 06/10/22 documented as of this encounter
--- OUTSIDE RECORDS SUMMARY | 2023-11-21 15:59 | XMS_ITS | Encounter Summary ---
Author Organization [facility] Address [facility] [place] [address] Care Team Providers Care Welder Metal Fab Name Role Phone Eren Shah CHELSEA Primary Care Provider [phone] Reason for Visit * Diagnostic Test (Routine) - Closed Specialty Diagnoses / Procedures Referred By Contac t Referred To Contact Radiology Diagnoses Metastatic urothelial carcinoma Primary lung adenocarcinoma, left Procedures NM PET CT Skull Base to Mid-thigh Jose Lange MD [facility] [address] [place] [address] [place] [address] Referral ID Status Reason Start Date Expiration Date V isits Requested Visits Authorized [id number] Closed Specialty Service Requested 01/22/2022 07/23/2023 1 1 Encounter Details Date Type Department Care Team (Latest Contact Info) Description 03/08/2022 11:20 AM EST - 03/08/2022 11:59 PM [facility] Hospital Encounter [place] [address] Jose Lange MD [facility] [place] [address] Discharge Disposition: Home Social History [...] by mouth daily as needed for Constipation. levothyroxine (Synthroid) 75 mcg TabletIndications:Metast atic urothelial carcinoma Take 1 tablet by mouth daily. 30 tablet 11 02/19/2022 02/12/2023 ciprofloxacin (Cipro) 500 mg TabletIndications:Metast atic urothelial carcinoma,Hematuria, unspecified type Take 1 tablet by mouth every 12 hours. 20 tablet 02/12/2022 03/12/2022 traMADoL (Ultram) 50 mg TabletIndications:Metast atic urothelial carcinoma Take 1 tablet by mouth every 6 hours as needed for Pain. 30 tablet 01/11/2022 04/23/2022 prochlorperazine (Compazine) 10 mg Tablet Take 1 tablet by mouth every 6 hours as needed for Nausea. 15 tablet 04/18/2021 05/13/2023 documented as of this encounter Plan of Treatment Upcoming Encounters Date Type Department Care Team (Late st Contact Info) Description 12/08/2023 3:30 PM EDT Office Visit Hematology/Oncology at [address] [phone] Chase Mckay MD [facility] [address] [place] [address] documented as of this encounter Procedures Procedure Name Priority Date/Time Associated Diagnosis Comments NM PET CT SKULL BASE TO MID-THIGH (LCSR) Routine 03/08/2022 12:52 PM EST Metastatic urothelial carcinoma Primary lung adenocarcinoma, left POCT GLUCOSE Routine 03/08/2022 11:27 AM EST documented in this encounter Results * POCT Glucose (03/08/2022 11:27 AM EST) POC Glucose 93 65 - 199 mg/dL [facility] Comment: Supplemental ranges: <140 mg/dL before meals <180 mg/dL all other times of the day Blood 03/08/2022 11:2 7 AM EST 03/08/2022 11:27 AM EST Jose Lange MD POINT OF CARE TEST O RDERABLES [facility] [place] [address] documented in this encounter Visit Diagnoses Not on filedocumented in this encounter Care Teams Welder Metal Fab Relationship Specialty Start Date End Date Eren Shah DNP PCP - General Family Medicine 03/20/21 06/10/22 documented as of this encounter
--- OUTSIDE RECORDS SUMMARY | 2023-11-21 15:59 | XMS_ITS | Encounter Summary ---
[facility] [place] [address] Care Team Providers Care Rn Production Name Role Phone Eren Shah DNP Primary Care Provider [phone] Encounter Details Date Type Department Care Team (Late st Contact Info) Description 12/24/2021 Notes [place] [address] Jean Carlos Fenton, [facility] [place] [address] Social History Tobacco Use Types Packs/Day Years [...] * Jean Carlos Fenton P, DO - 12/24/2021 7:47 AM EDT Images from the original note were not included. INTERVENTIONAL RADIOLOGY FOCUSED H&P and PRE-PROCEDURE NOTE: PCP: Eren Shah APRN Referring Provider: Aditya Rosado Planned Procedure: Planned procedure: Bilateral Antegrade Nephroureteral Catheter Exchange Procedure Indication: 71 F ??with metastatic urothelial cancer causing hydronephrosis. Bilateral NUcatheters (10 Fr x 22 cm) , last exchanged 10/23/21. Routine 3 month exchange. Procedure Request: Procedure request received through the Interventional Radiology eDH order queue. Presenting Diagnosis/ Complaint: Barb Bullard is a 71 y.o. female presenting to IR for bilateral antegrade nephroureteral catheter exchange. Past medical history is significant for metastatic urothelial carcinoma causing hydronephrosis status post bilateral nephroureteral catheters placed 02/20/21, last exchanged 10/23/21 with 10 Fr 22 cm catheters. Patient returns for routine 3 month exchange. IR History: 02/20/21 b/l PCN Placement?? [...] (admin by ); Topical; 2% lidocaine jelly Antiplatelets: None. Anticoagulants: None. Recent Laboratories: ??? Platelets: 873 on 04/16/21. ??? INR: None. ??? Creatinine: 1.54 on 07/13/21. ??? Getting Laboratories Before Procedure: No. Allergies: None. [...] IR Mediport Placement 04/02/2021 Yuval Sinclair PA [facility] INTERVENTIONL RAD ??? IR NEPHROSTOMY TUBE PLACEMENT PERCUTANEOUS BILATERAL 02/20/2021 IR Nephrostomy Tube Placement Percutaneous Bilateral [facility] INTERVENTIONL RAD ??? IR NEPHROURETERAL (NU) STENT PLACEMENT/CHECK/CHANGE 07/13/2021 IR Nephroureteral (NU) Stent Placement Check/Change 07/13/2021 Alexis De La Cruz MD [facility] INTERVENTIONLRAD ??? IR NEPHROURETERAL (NU) STENT PLACEMENT/CHECK/CHANGE 10/23/2021 IR Nephroureteral (NU) Stent Placement Check/Change 10/23/2021 Zeferino Rosado MD [facility] INTERVENTIONL RAD ? ? PRO [facility] EBUS GUIDED SAMPL 3/> NODE STATION/STRUX N/A 04/04/2021 BRONCH, W ENDOBRONCHIAL ULTRASOUND (EBUS) GUIDED SAMPLING, 3+ NODES (WRVU 5.21) performed by Alonzo Cevallos MD at [facility] MAIN OR ??? PRO BRONCHOSCOPY, DIAGNOSTIC W LAVAGE N/A 04/04/2021 BRONCHOSCOPY, RIGID OR FLEXIBLE, WITH BRONCHIAL ALVEOLAR LAVAGE (WRVU 2.88) performed by Alonzo Cevallos MD at [facility] MAIN OR Medications: Current Outpatient Medications on File Prior to Visit Medication Sig Dispense Refill ??? levothyroxine (Synthroid) 25 mcg Tablet Take 1 tablet by mouth daily. 30 tablet 5 ??? senna (Senokot) 8.6 mg Tablet Take [...] Types: Cigarettes Quit date: 07/04/2014 Years since quittin.4 ??? Smokeless tobacco: Never Used Vaping Use [...] day of procedure) Assessment: 71 y.o. female presenting to IR for bilateral antegrade nephroureteral catheter exchange. Past medical history is significant for metastatic urothelial carcinoma causing hydronephrosis status post bilateral nephroureteral catheters placed 02/20/21, last exchanged 10/23/21 with 10 Fr 22 cm catheters. Patient returns for routine 3 month exchange. Reviewed with Attending: Dr. Fenton Plan: Planned procedure: Bilateral Antegrade Nephroureteral Catheter Exchange Labs to be performed day of procedure: No labs Sedation: No Sedation Prophylactic antibiotic : Cipro Contrast: Omnipaque Additional medications for procedure: Lido jelly; Lidocaine Planned access site: Bilateral Nephroureteral Catheters Position: Prone Consent: Completed (Serial Consent, Exp 02/21/22) Medications to discontinue (and days held): None Case Urgency:: G- Other (non E or F elective cases) 12/24/2021 documented in this encounter Plan of Treatment Upcoming Encounters Date Type Department Care Team (Late st Contact Info) Description 12/08/2023 3:30 PM EDT Office Visit Hematology/Oncology at [address] [phone] Chase Mckay MD [facility] DR HEMATOLOGY [place] [address] documented as of this encounter Visit Diagnoses Not on filedocumented in this encounter Care Teams Rn Production Relationship Specialty Start Date End Date Eren Shah DNP PCP - General Family Medicine 03/20/21 06/10/22 documented as of this encounter
--- OUTSIDE RECORDS SUMMARY | 2023-11-21 15:59 | XMS_ITS | Encounter Summary ---
Author Organization [facility] Address [facility] [place] [address] Care Team Providers Care Floor Press Operator Name Role Phone Eren Shah DNP Primary Care Provider [phone] Encounter Details Date Type Department Care Team (Late st Contact Info) Description 01/01/2022 Notes Only Hematology/Oncology at [address] [phone] Elizabeth Mccray, [facility] OFFICE OF CARE MANAGEMENT Social History Tobacco [...] Progress Notes * Elizabeth Mccray MSW - 01/01/2022 11:33 AM EDT Follow up with pt during her infusion visit today. Pt reports she is doing well over all. She continues with good support from he family. She is supporting her brother as he manages his health needs.She did not identify any new needs today. Offered support. Will continue to follow pt for support and resources. Brief assessment Supportive Counseling documented in this encounter Plan of Treatment Upcoming Encounters Date Type Department Care Team (Late st Contact Info) Description 12/08/2023 3:30 PM EDT Office Visit Hematology/Oncology at [address] [phone] Chase Mckay MD [facility] [place] [address] documented as of this encounter Visit Diagnoses Not on filedocumented in this encounter Care Teams Floor Press Operator Relationship Specialty Start Date End Date Eren Shah DNP PCP - General Family Medicine 03/20/21 06/10/22 documented as of this encounter
--- OUTSIDE RECORDS SUMMARY | 2023-11-21 15:59 | XMS_ITS | Encounter Summary ---
[place] [address] Care Team Providers Care Oil Burner Servicer And Installer Name Role Phone Eren Shah CHELSEA Primary Care Provider [phone] Reason for Referral * Diagnostic Test (Routine) - Closed Specialty Diagnoses / Procedures Referred By Contac t Referred To Contact Radiology Diagnoses Metastatic urothelial carcinoma Procedures NM PET CT Skull Base to Mid-thigh Jose Lange MD [facility] [address] [place] [address] [place] [address] Referral ID Status Reason Start Date Expiration Date V isits Requested Visits Authorized [id number] Closed Specialty Service Requested 10/09/2021 04/10/2023 1 1 Reason for Visit * Diagnostic Test (Routine) - Closed Specialty Diagnoses / Procedures Referred By Contac t Referred To Contact Radiology Diagnoses Metastatic urothelial carcinoma Procedures NM PET CT Skull Base to Mid-thigh Jose Lange MD [facility] [place] [address] [place] [address] Referral ID Status Reason Start Date Expiration Date V isits Requested Visits Authorized [id number] Closed Specialty Service Requested 10/09/2021 04/10/2023 1 1 Encounter Details Date Type Department Care Team (Latest Contact Info) Description 11/13/2021 10:05 AM EDT - 11/13/2021 10:06 AM EDT Hospital Encounter Nuclear Medicine at [facility] [place] [address] Jose Lange MD [facility] [place] [address] Metastatic urothelial carcinoma Discharge Disposition: Home Social [...] daily as needed for Constipation. levothyroxine (Synthroid) 25 mcg TabletIndications:Metas tatic urothelial carcinoma,Hypothyroidis m due to drugs Take 1 tablet by mouth daily. 30 tablet 5 10/30/2021 01/01/2022 traMADoL (Ultram) 50 mg TabletIndications:Metas tatic urothelial [...] 02/25/2021 01/22/2022 documented as of this encounter Plan of Treatment Upcoming Encounters Date Type Department Care Team (Late st Contact Info) Description 12/08/2023 3:30 PM EDT Office Visit Hematology/Oncology at [address] [phone] Chase Mckay MD [facility] [place] [address] documented as of this encounter Procedures Procedure Name Priority Date/Time Associated Diagnosis Comments NM PET CT SKULL BASE TO MID-THIGH (LCSR) Routine 11/13/2021 12:12 PM EDT Metastatic urothelial carcinoma documented in [...] have questions please contact the health career discovery teacher that requested your imaging first. ? Narrative 11/14/2021 10:47 AM EDT EXAMINATION: NM PET CT STANDARD SKULL BASE TO MID-THIGH CLINICAL HISTORY: Urologic cancer, assess treatment response - Include more detail below Restaging of metastatic urothelial carcinoma, patient has primary lung cancer as well. Status post 10 cycles of chemotherapy TECHNIQUE: Following IV injection of 27-tyukbs-1-deoxyglucose (FDG) a standard uptake of approximately 60 [...] of chemotherapy TECHNIQUE: Following IV injection of 41-dakhkz-8-deoxyglucose (FDG) astandard uptake of approximately 60 minutes, [...] patients who have questions please contactthe health career discovery teacher that requested your imaging first. Jose Lange MD IMG PET ORDERABLES documented in this encounter Visit Diagnoses Diagnosis Metastatic urothelial carcinoma Secondary malignant neoplasm of other urinary organs documented in this encounter Administered Medications Inactive Administered Medications - up to 3 most recent administrations Medication Order MAR Action Action Date Dose Rate Site fludeoxyglucose (F-18) FDG injection 0-20 mCi 0-20 mCi, Intravenous, ONCE PRN, 1 dose, Starting on Fri11/13/21 at 1108, Until Fri11/13/21 at 1059, Per Protocol, Radiology Contrast, Routine Given 11/13/2021 10:59 AM EDT 10 mCi Right Arm documented in this encounter Care Teams Oil Burner Servicer And Installer Relationship Specialty Start Date End Date Eren Shah DNP PCP - General Family Medicine 03/20/21 06/10/22 documented as of this encounter
--- OUTSIDE RECORDS SUMMARY | 2023-11-21 15:59 | XMS_ITS | Encounter Summary ---
[place] [address] Care Team Providers Care Ham Boner Name Role Phone Eren Shah CHELSEA Primary Care Provider [phone]- [phone] Reason for Referral * Diagnostic Test (Routine) - Closed Specialty Diagnoses / Procedures Referred By Contac t Referred To Contact Radiology Diagnoses Metastatic urothelial carcinoma Primary lung adenocarcinoma, left Procedures NM PET CT Skull Base to Mid-thigh Jose Lange MD [facility] DR HEMATOLOGY [place] [address] [place] [address] Referral ID Status Reason Start Date Expiration Date V isits Requested Visits Authorized [id number] Closed Specialty Service Requested 01/22/2022 07/23/2023 1 1 Reason for Visit * Diagnostic Test (Routine) - Closed Specialty Diagnoses / Procedures Referred By Contac t Referred To Contact Radiology Diagnoses Metastatic urothelial carcinoma Primary lung adenocarcinoma, left Procedures NM PET CT Skull Base to Mid-thigh Jose Lange MD [facility] DR HEMATOLOGY [place] [address] [place] [address] Referral ID Status Reason Start Date Expiration Date V isits Requested Visits Authorized [id number] Closed Specialty Service Requested 01/22/2022 07/23/2023 1 1 Encounter Details Date Type Department Care Team (Latest Contact Info) Description 03/08/2022 11:19 AM EST Hospital Encounter Nuclear Medicine at [facility] [place] [address] Jose Lange MD [facility] DR HEMATOLOGY [place] [address] Metastatic urothelial carcinoma; Primary lung adenocarcinoma, left [...] PM EDT Office Visit Hematology/Oncology at [address] [phone] Chase Mckay MD [facility] DR HEMATOLOGY [place] [address] documented as of this encounter Procedures Procedure Name Priority Date/Time Associated Diagnosis Comments NM PET CT SKULL BASE TO MID-THIGH ([facility]) Routine 03/08/2022 12:52 PM EST Metastatic urothelial carcinoma Primary lung adenocarcinoma, left documented in this encounter Results * NM PET CT Skull Base to Mid-thigh (03/08/2022 12:52 PM EST) Anatomical Region Laterality Modality Positron Emissio n Tomography (PET) Impressions 03/12/2022 12:04 PM EST 1. ??Unchanged FDG avid left lower lobe mass extending into the posterior left hilum, consistent with active pulmonary malignancy. 2. ??FDG avid 10 mm adenopathy in the subcarinal region is increased in size and FDG avidity, consistent with active anthony metastasis. 3. ??No other sites of active malignancy or metastasis. 4. ??Urinary activity in the decompressed urinary bladder limits evaluation for residual urothelial malignancy. 5. ??Scattered foci of dermal activity in the left upper back and left upper arm, favored to represent benign inflammatory lesions. Correlate with physical exam findings. I have personally reviewed the image(s) and the resident's interpretation and agree with the findings, Ed Barajas MD at 03/12/2022 12:04 PM Thank you for letting us participate in the care of this patient. ??If you are a health care provider and have any questions regarding this report, please contact the number below. ??For patients who have questions please contact the health child care attendant that requested your imaging first. ? Electronically signed by: Ed Barajas MD, [facility] ([phone]), at 03/12/2022 12:04 PM Narrative 03/12/2022 12:04 PM EST EXAMINATION: NM PET CT STANDARD SKULL BASE TO MID-THIGH CLINICAL HISTORY: Non-small cell lung cancer, assess treatment response; Urologic cancer, assess treatment response - Include more detail below Restaging of metastatic urothelial carcinoma and primary lung cancer On pembrolizumab. TECHNIQUE: Following IV injection of 74-bdeukq-2-deoxyglucose (FDG) a standard uptake of approximately 60 minutes, a noncontrast CT scan followed by a PET scan were acquired from the base of the skull to mid thighs. The noncontrast CT was used for anatomic localization and photon attenuation correction of the PET scan. Blood glucose level: 93 (mg/dL) FDG dose: 10 mCi COMPARISON: PET/CT 11/13/2021. Liver SUV mean 2.6, previously 2.5. FINDINGS: HEAD/NECK: Unchanged FDG avid bilateral cervical lymph nodes measuring 0.7 cm short axis consistent with benign reactive nodes. CHEST: Unchanged FDG avid left lower lobe mass with mixed cystic and solid components contiguous with the posterior left hilum with SUV max of 31.6, previously 31.0. Interval increased size and FDG avidity in a subcarinal lymph node measuring 1 cm short axis, previously 0.5 cm. Small foci of cutaneous activity along the left upper back small FDG avid subcutaneous stranding in the left upper arm, all favored to represent benign inflammatory lesions. Unchanged peripheral groundglass opacities in the inferior right upper lobe and scarring/atelectasis in the lingula. Trace left pleural effusion. Mild coronary artery and aortic root calcification. Right-sided port catheter tip at the lower SVC. ABDOMEN/PELVIS: FDG activity in the region of the decompressed urinary bladder may represent excreted urinary activity, also residual urothelial cancer is difficult to exclude. Unchanged multiple small FDG avid bilateral inguinal lymph nodes favored to represent chronic inflammatory nodes. Bilateral percutaneous nephrostomy tubes. No hydronephrosis. Atrophy of the superior right rectus muscle. SKELETON/EXTREMITIES: Normal activity in all regions of the axial and visualized appendicular skeleton. Procedure Note Ed Barajas MD - 03/12/2022 EXAMINATION: NM PET CT STANDARD SKULL BASE TO MID-THIGH CLINICAL HISTORY: Non-small cell lung cancer, assess treatment response; Urologic cancer, assess treatment response - Include more detail below Restaging of metastatic urothelial carcinoma and primary lung cancer On pembrolizumab. TECHNIQUE: Following IV injection of 04-rcchqz-6-deoxyglucose (FDG) astandard uptake of approximately 60 minutes, a noncontrast CT scan followed by aPET scan were acquired from the base of the skull to mid thighs. The noncontrast CTwas used for anatomic localization and photon attenuation correction of thePET scan. Blood glucose level: 93 (mg/dL) FDG dose: 10 mCi COMPARISON: PET/CT 11/13/2021. Liver SUV mean 2.6, previously 2.5. FINDINGS: HEAD/NECK: Unchanged FDG avid bilateral cervical lymph nodes measuring 0.7 cm shortaxis consistent with benign reactive nodes. CHEST: Unchanged FDG avid left lower lobe mass with mixed cystic and solidcomponents contiguous with the posterior left hilum with SUV max of 31.6, [id number]. Interval increased size and FDG avidity in a subcarinal lymph nodemeasuring 1 cm short axis, previously 0.5 cm. Small foci of cutaneous activity along the left upper back small FDGavid subcutaneous stranding in the left upper arm, all favored to representbenign inflammatory lesions. Unchanged peripheral groundglass opacities in the inferior right upperlobe and scarring/atelectasis in the lingula. Trace left pleural effusion. Mildcoronary artery and aortic root calcification. Right-sided port catheter tip at thelower SVC. ABDOMEN/PELVIS: FDG activity in the region of the decompressed urinary bladder mayrepresent excreted urinary activity, also residual urothelial cancer is difficultto exclude. Unchanged multiple small FDG avid bilateral inguinal lymph nodes favoredto represent chronic inflammatory nodes. Bilateral percutaneous nephrostomytubes. No hydronephrosis. Atrophy of the superior right rectus muscle. SKELETON/EXTREMITIES: Normal activity in all regions of the axial and visualized appendicular skeleton. IMPRESSION 1. Unchanged FDG avid left lower lobe mass extending into the posteriorleft hilum, consistent with active pulmonary malignancy. 2. FDG avid 10 mm adenopathy in the subcarinal region is increased insize and FDG avidity, consistent with active anthony metastasis. 3. No other sites of active malignancy or metastasis. 4. Urinary activity in the decompressed urinary bladder limits evaluationfor residual urothelial malignancy. 5. Scattered foci of dermal activity in the left upper back and leftupper arm, favored to represent benign inflammatory lesions. Correlate with physicalexam findings. I have personally reviewed the image(s) and the resident's interpretationand agree with the findings, Ed Barajas MD at 03/12/2022 12:04 PM Thank you for letting us participate in the care of this patient. If youare a health care provider and have any questions regarding this report,please contact the number below. For patients who have questions please contactthe health child care attendant that requested your imaging first. Electronically signed by: Ed Barajas MD, [facility]([phone]), at 03/12/2022 12:04 PM Jose Lange MD IMG PET ORDERABLES [...] Intravenous, ONCE PRN, 1 dose, Starting on Fri03/08/22 at 1143, Until Fri03/08/22 at 1137, Per Protocol, Radiology Contrast, Routine Given 03/08/2022 11:37 AM EST 10 mCi Right Arm documented in this encounter Care Teams Ham Boner Relationship Specialty Start Date End Date Eren Shah DNP PCP - General Family Medicine 03/20/21 06/10/22 documented as of this encounter
--- OUTSIDE RECORDS SUMMARY | 2023-11-21 15:59 | XMS_ITS | Encounter Summary ---
Author Organization [facility] [place] [address] Care Team Providers Care Nurse Technician Name Role Phone Eren Shah CHELSEA Primary Care Provider [phone] Reason for Visit * Reason Onset Date Comments Follow-up 09/21/2021 On UTI Encounter Details Date Type Department Care Team (Late st Contact Info) Description 09/21/2021 Telephone Hematology/Oncology at [address] [phone] Pamella East RN Follow-up (On UTI) Social History Tobacco Use Types Packs/Day Years [...] Telephone Encounter - Pamella East RN - 09/21/2021 11:42 AM EDT Called barb to see how she is doing since going on cipro for UTI. (sensitivities came back and it is sensitive to cipro). Her back pain is gone and urine is less cloudy. Dr. Lange updated via this note. documented in this encounter Plan of Treatment Upcoming Encounters Date Type Department Care Team (Late st Contact Info) Description 12/08/2023 3:30 PM EDT Office Visit Hematology/Oncology at [address] [phone] Chase Mckay MD [facility] DR HEMATOLOGY [place] [address] documented as of this encounter Visit Diagnoses Not on filedocumented in this encounter Care Teams Nurse Technician Relationship Specialty Start Date End Date Eren Shah DNP PCP - General Family Medicine 03/20/21 06/10/22 documented as of this encounter
--- OUTSIDE RECORDS SUMMARY | 2023-11-21 15:59 | XMS_ITS | Encounter Summary ---
Author Organization [facility] [place] [address] Care Team Providers Care Supervisor Soldering Name Role Phone Eren Shah CHELSEA Primary Care Provider [phone] Reason for Visit * Diagnostic Test (Routine) - Closed Specialty Diagnoses / Procedures Referred By Contac t Referred To Contact Radiology Diagnoses Metastatic urothelial carcinoma Procedures NM PET CT Skull Base to Mid-thigh Jose Lange MD [facility] DR [place] [address] [facility] [place] [address] Referral ID Status Reason Start Date Expiration Date V isits Requested Visits Authorized [id number] Closed Specialty Service Requested 10/09/2021 04/10/2023 1 1 Encounter Details Date Type Department Care Team (Latest Contact Info) Description 11/13/2021 10:07 AM EDT - 11/13/2021 11:59 PM EDT Hospital Encounter [place] [address] Jose Lange MD [facility] [place] [address] Discharge Disposition: Home Social History [...] PM EDT Office Visit Hematology/Oncology at [address] [phone] Chase Mckay MD [facility] DR [place] [address] documented as of this encounter Procedures Procedure Name Priority Date/Time Associated Diagnosis Comments NM PET CT SKULL BASE TO MID-THIGH ([facility]) Routine 11/13/2021 12:12 PM EDT Metastatic urothelial carcinoma POCT GLUCOSE Routine 11/13/2021 10:48 AM EDT documented in this encounter Results * POCT Glucose (11/13/2021 10:48 AM EDT) POC Glucose 89 65 - 199 mg/dL [facility] Comment: Supplemental ranges: <140 mg/dL before meals <180 mg/dL all other times of the day Blood 11/13/2021 10:4 8 AM EDT 11/13/2021 10:48 AM EDT Jose Lange MD POINT OF CARE TEST O RDERABLES [facility] [place] [address] documented in this encounter Visit Diagnoses Not on filedocumented in this encounter Care Teams Supervisor Soldering Relationship Specialty Start Date End Date Eren Shah DNP PCP - General Family Medicine 03/20/21 06/10/22 documented as of this encounter
--- OUTSIDE RECORDS SUMMARY | 2023-11-21 15:59 | XMS_ITS | Encounter Summary ---
Author Organization [facility] [place] [address] Care Team Providers Care Inside Sales Coordinator Name Role Phone Eren Shah CHELSEA Primary Care Provider [phone] Reason for Visit * Reason Comments Chemotherapy Cycle 13, Day 1 Pemb ro * Treatment/Therapy Plan Authorization (Routine) - Closed Specialty Diagnoses / Procedures Referred By Contac t Referred To Contact Hematology and Oncology Diagnoses Metastatic urothelial carcinoma Abnormal thyroid function test Procedures [id number] Jose Barnhart MD [address] [place] [address] [place] [address] Jose Lange MD [address] [place] [address] [place] [address] Referral ID Status Reason Start Date Expiration Date Visits Re quested Visits Authorized [id number] Closed 04/28/2022 06/24/2023 99 99 Encounter Details Date Type Department Care Team (Late st Contact Info) Description 01/01/2022 10:30 AM EDT Infusion Hematology Oncology at [address] [phone] Metastatic urothelial carcinoma; Abnormal thyroid [...] Progress Notes * Audrey Giron RN - 01/01/2022 10:30 AM EDT INFUSION THERAPY ADMINISTRATION NOTES DIAGNOSIS: Urothelial CA CYCLE #13: Day 1 REASON FOR VISIT: Pembrolizumab Infusion SUBJECTIVE Ms. Bullard is here for C13D1 Pembrolizumab. She is overall doing well and has no questions/concerns.Ready for treatment today. OBJECTIVE LAB DATA: Labs drawn today at [facility] and reviewed by this RN. No holds per treatment plan. IV ACCESS: Mediport accessed by [facility], flushed easily with blood return at [facility]. Pt reports it was has been positional [...] clinic in 3 weeks for consideration of C14. Patient was reminded to call in the interim with any questions/concerns. documented in this encounter Plan of Treatment Upcoming Encounters Date Type Department Care Team (Late st Contact Info) Description 12/08/2023 3:30 PM EDT Office Visit Hematology/Oncology at [address] [phone] Chase Mckay MD [facility] DR HEMATOLOGY [place] [address] documented as of this encounter Visit Diagnoses [...] 500 Units, Intravenous, ONCE PRN, Starting on Fri01/01/22 at 1038, Until Fri01/01/22 at 1355, Line Care, Refer to Intravenous (IV) Procedure: Accessing Implanted Vascular Access Devices (324) procedure and/or Intravenous (IV) Job Aid: Adult Flushing & Catheter Care (4083) job aid for additional information regarding guidelines and administration., Routine Given 01/01/2022 11:41 AM EDT 500 Units pembrolizumab (Keytruda) 200 mg in sodium chloride 0.9% 108 mL infusion 200 mg, Intravenous, ONCE, 1 dose, On Fri01/01/22 at 1200, Administer over 30 Minutes, Flush line with NS after each dose., This agent is restricted to outpatient use. Is this drug being given as an outpatient? Yes New Bag 01/01/2022 11:08 AM EDT 200 mg 216 mL/hr sodium chloride 0.9 % (flush) (BD PosiFlush Normal Saline 0.9) flush 5-20 mL 5-20 mL, Intravenous, EVERY 1 MIN PRN, Starting on Fri01/01/22 at 1038, Until Fri01/01/22 at 1355, Line Care, Flush pertains to all indwelling lines. Flush per protocol found in the job aid using the link provided on this medication record. Refer to Intravenous (IV) Job Aid: Adult Flushing & Catheter Care (9039) job aid for additional information regarding guidelines and administration., Routine Given 01/01/2022 11:41 AM EDT 20 mLs sodium chloride 0.9% infusion 100 mL/hr, Intravenous, CONTINUOUS, Starting on Fri01/01/22 at 1100, Until Fri01/01/22 at 1355 New Bag 01/01/2022 10:47 AM EDT 100 mL/hr 100 mL/hr documented in this encounter Care Teams Inside Sales Coordinator Relationship Specialty Start Date End Date Eren Shah DNP PCP - General Family Medicine 03/20/21 06/10/22 documented as of this encounter
--- OUTSIDE RECORDS SUMMARY | 2023-11-21 15:59 | XMS_ITS | Encounter Summary ---
Author Organization [facility], [facility]–1983 Address [facility] [place] [address] Care Team Providers Care Bulk Picker Name Role Phone Eren Shah DNP Primary Care Provider [phone] [phone] Encounter Details Date Type Department Care Team (Late st Contact Info) Description 11/20/2021 Notes Only Hematology/Oncology at [address] [phone] Elizabeth Mccray, [facility] Social History Tobacco [...] Progress Notes * Elizabeth Mccray MSW - 11/20/2021 9:37 AM EDT Follow up with pt during her infusion visit today. Pt indicated she is feeling well. She got good news from a recent scan. She is busy doing things she enjoys - kayaking and some gardening. She talked about learning not to ut anything off now because time is socorro. Offered support. Pt did not identify any new needs at this time. Will continue to follow for support and resources. Brief assessment Supportive Counseling documented in this encounter Plan of Treatment Upcoming Encounters Date Type Department Care Team (Late st Contact Info) Description 12/08/2023 3:30 PM EDT Office Visit Hematology/Oncology at [address] [phone] Chase Mckay MD [facility] DR HEMATOLOGY [place] [address] documented as of this encounter Visit Diagnoses Not on filedocumented in this encounter Care Teams Bulk Picker Relationship Specialty Start Date End Date Eren Shah DNP PCP - General Family Medicine 03/20/21 06/10/22 documented as of this encounter
--- OUTSIDE RECORDS SUMMARY | 2023-11-21 15:59 | XMS_ITS | Encounter Summary ---
Author Organization [facility] Address [facility] [place] [address] Care Team Providers Care Church Warden Name Role Phone Eren Shah DNP Primary Care Provider [phone] Encounter Details Date Type Department Care Team (Latest Contact Info) Description 02/19/2022 Travel Social History Tobacco Use Types Packs/Day [...] 3:30 PM EDT Office Visit Hematology/Oncology at [address] [phone] Chase Mckay MD [facility] DR [place] [address] documented as of this encounter Visit Diagnoses Not on filedocumented in this encounter Care Teams Church Warden Relationship Specialty Start Date End Date Eren Shah DNP PCP - General Family Medicine 03/20/21 06/10/22 documented as of this encounter
--- OUTSIDE RECORDS SUMMARY | 2023-11-21 15:59 | XMS_ITS | Encounter Summary ---
Author Organization [facility] Address [facility] [place] [address] Care Team Providers Care Senior Design Engineering Specialist Name Role Phone Eren Shah DNP Primary Care Provider [phone] Encounter Details Date Type Department Care Team (Late st Contact Info) Description 01/18/2022 Orders [place] [address] Deandre Juares MD [facility] [place] [address] Metastatic urothelial carcinoma Social History Tobacco Use [...] PM EDT Office Visit Hematology/Oncology at [address] [phone] Chase Mckay MD [facility] DR HEMATOLOGY [place] [address] documented as of this encounter Visit Diagnoses Diagnosis Metastatic urothelial carcinoma Secondary malignant neoplasm of other urinary organs documented in this encounter Care Teams Senior Design Engineering Specialist Relationship Specialty Start Date End Date Eren Shah DNP PCP - General Family Medicine 03/20/21 06/10/22 documented as of this encounter
--- OUTSIDE RECORDS SUMMARY | 2023-11-21 15:59 | XMS_ITS | Encounter Summary ---
[place] [address] Care Team Providers Care Briar Cutter Name Role Phone Eren Shah CHELSEA Primary Care Provider Reason for Referral * Diagnostic Test (Routine) - Closed Specialty Diagnoses / Procedures Referred By Contac t Referred To Contact Radiology Diagnoses Metastatic urothelial carcinoma Procedures IR Nephroureteral (NU) Stent Placement Check/Change Zeferino Rosado MD [facility] [place] [address] [facility] [place] [address] Referral ID Status Reason Start Date Expiration Date V isits Requested Visits Authorized [id number] Closed Specialty Service Requested 10/23/2021 04/24/2023 1 1 Reason for Visit * Diagnostic Test (Routine) - Closed Specialty Diagnoses / Procedures Referred By Contac t Referred To Contact Radiology Diagnoses Metastatic urothelial carcinoma Procedures IR Nephroureteral (NU) Stent Placement Check/Change Zeferino Rosado MD [facility] [place] [address] [facility] [place] [address] Referral ID Status Reason Start Date Expiration Date V isits Requested Visits Authorized [id number] Closed Specialty Service Requested 10/23/2021 04/24/2023 1 1 Encounter Details Date Type Department Care Team (Latest Contact Info) Description 01/18/2022 11:54 AM EDT - 01/18/2022 11:59 PM EDT Hospital Encounter Radiology at [facility] [place] [phone] [facility] [place] [address] Metastatic urothelial carcinoma Discharge Disposition: Home Social [...] Sign Reading Time Taken Comments Blood Pressure 121/63 01/18/2022 12:35 PM EDT Pulse 71 01/18/2022 12:35 PM EDT Temperature 37 ??C (98.6 ??F) 01/18/2022 12:35 PM EDT Respiratory Rate 12 01/18/2022 12:35 PM EDT Oxygen Saturation 98% 01/18/2022 12:35 PM EDT Inhaled Oxygen Concentration - - Weight - - Height - - Body Mass Index - - documented in this encounter Discharge Instructions * Discharge Instructions* Gail Haji RN - 01/18/2022 1:10 PM EDT Images from the original note were not included. [facility] Vascular and Interventional Radiology Discharge [...] tubing from the drain. Put a registered public health nurse on both the drain and the [...] is during regular office hours, please call [phone]. If it is after regular office hours, or on weekends or holidays, please call [phone] and ask to speak to the Script Editor client relationship executive for Interventional Radiology. Revised 02/11/19 documented in this encounter Medications at Time of Discharge Medication Sig Dispensed Refills Start Date End Date senna (Senokot) 8.6 mg Tablet Take 1 tablet by mouth daily as needed for Constipation. traMADoL (Ultram) 50 mg TabletIndications:Metast atic urothelial carcinoma Take 1 tablet by mouth every 6 hours as needed for Pain. 30 tablet 01/11/2022 04/23/2022 levothyroxine (Synthroid) 50 mcg TabletIndications:Abnorm al thyroid function test Take 1 tablet by mouth daily. 90 tablet 3 01/01/2022 02/19/2022 prochlorperazine (Compazine) 10 mg Tablet Take 1 tablet by mouth every 6 hours as needed for Nausea. 15 tablet 04/18/2021 05/13/2023 ferrous sulfate EC 325 mg (65 mg iron) Tablet, Delayed Release (E.C.) Take 325 mg by mouth every other day. 02/25/2021 01/22/2022 documented as of this encounter Progress Notes * Madelin Doshi RN - 01/15/2022 9:17 AM EDT [facility]GIO NURSING DATABASE Name: BARB BULLARD Date of : 1950 AGE: 71 y.o. Address: [address] [facility] [address] (home) Mobile: Telephone Information: Referring Provider: Zeferino Rosado REASON FOR VISIT: Order Questions Answers Where will study be performed? [facility] Radiology [120] Reason for exam and clinical history: 71 F w/ metastatic urothelial Ca- causing hydronephrosis. bilateral NU catheters (10 Fr x 22 cm) , last exchanged 07/13/21. Routine 3 month exchange. Exam/Procedure requested: bilateral NU exchange Is the patient on anticoagulant / antiplatelet therapy ? No Planned procedure: Bilateral Antegrade Nephroureteral Catheter Exchange Labs to be performed day of procedure: No labs Sedation: No Sedation Prophylactic antibiotic : Cipro Contrast: Omnipaque Additional medications for procedure: Lido jelly; Lidocaine Planned access site: Bilateral Nephroureteral Catheters Position: Prone Consent: Completed (Serial Consent, Exp 02/21/22) Medications to discontinue (and days held): None Case Urgency:: G- Other (non E or F elective cases) No Known Allergies Pertinent PMH: Patient Active Problem List Diagnosis Code ??? Metastatic urothelial carcinoma C79.10 ??? Abnormal thyroid function test R94.6 ??? Anemia D64.9 ??? Bilateral hydronephrosis N13.30 ??? Folate deficiency E53.8 ??? Lung mass R91.8 ??? Obstructive uropathy N13.9 ??? 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 C34.32 Date/Procedure Meds given/comments 02/20/21 b/l PCN Placement?? [...] (admin by ); Topical; 2% lidocaine jelly ? Laboratory Results: Lab Results Component Value Date CREATININE 1.54 (H) 07/13/2021 Lab Results Component Value Date K 4.5 04/16/2021 Lab Results Component Value Date PLATELET 873 (H) 04/16/2021 documented in this encounter Miscellaneous Notes * Brief Op Note - Deandre Juares MD - 01/18/2022 2:20 PM EDT Images from the original note were not included. IR Brief Procedure Note Procedure: Fluoro guided bilateral nephroureteral (NU) stent exchange for bilateral nephrostomy catheters Indication for Procedure: Per Dr. Jossy Booker Juan Miguel is a 71 y.o. female presenting to IR for bilateral antegrade nephroureteral catheterexchange. Past medical history is significant for metastatic urothelial carcinoma causing hydronephrosis status post bilateral nephroureteral catheters placed 02/20/21, last exchanged 10/23/21 with 10Fr 22 cm catheters. ??Patient returns for routine 3 month exchange. Technique/Findings from Procedure: Please see full report Medications: Lidocaine jelly Contrast: 50 cc Omni 350, Fluoro Time: 6.8 mins Est Blood Loss: <5cc. Complications: No immediate Impression: Bilateral over the wire conversion of nephro-ureteral stent to 10 Fr nephrostomy catheters. Next anticipated exchange in 3 months Resident/Fellow: Dr. Juares Attending: Dr. Nice documented in this encounter Plan of Treatment Upcoming Encounters Date Type Department Care Team (Late st Contact Info) Description 12/08/2023 3:30 PM EDT Office Visit Hematology/Oncology at [address] [phone] [facility] DR HEMATOLOGY [place] [address] documented as of this encounter Procedures Procedure Name Priority Date/Time Associated Diagnosis Comments IR NEPHROURETERAL (NU) STENT PLACEMENT/CHECK/CHANGE Routine 01/18/2022 2:05 PM EDT Metastatic urothelial carcinoma documented in [...] to 10 Fr nephrostomy tube. ??A 10 Albanian nephrostomy tube was placed with the pigtail [...] to negligible bladder volume. Zeferino Rosado MD [facility] IR ORDERABLES documented in this encounter Visit Diagnoses Diagnosis Metastatic urothelial carcinoma Secondary malignant neoplasm of other urinary organs documented in this encounter Administered Medications Inactive Administered Medications - up to 3 most recent administrations Medication Order MAR Action Action Date Dose Rate Site ciprofloxacin (Cipro) tablet 500 mg 500 mg, Oral, ONCE, 1 dose, On Fri01/18/22 at 1245, Angio/IR (Intra-Procedure), Routine, Indication for (Active or Suspected): Prophylaxis Given 01/18/2022 1:06 PM EDT 500 mg iohexoL (Omnipaque) (350 mg/mL) solution 1-400 mL 1-400 mL, Other, ONCE, 1 dose, On Fri01/18/22 at 1245, For intra-procedural use by proceduralist., Angio/IR (Intra-Procedure), Routine Given 01/18/2022 12:45 PM EDT 50 mLs lidocaine (Glydo) 2 % gel Topical (Top), EVERY 4 HOURS PRN, Starting on Fri01/18/22 at 1229, Until Fri01/18/22 at 1413, Pain, For use in Interventional Radiology (IR) only for procedure with direct provider supervision and verbal order., Angio/IR (Intra-Procedure), Routine Given 01/18/2022 1:17 PM EDT 6 mLs documented in this encounter Care Teams Briar Cutter Relationship Specialty Start Date End Date Eren Shah DNP PCP - General Family Medicine 03/20/21 06/10/22 documented as of this encounter
--- OUTSIDE RECORDS SUMMARY | 2023-11-21 15:59 | XMS_ITS | Encounter Summary ---
Author Organization [facility] [place] [address] Care Team Providers Care Fretted Instrument Maker Hand Name Role Phone Eren Shah CHELSEA Primary Care Provider [phone] Reason for Visit * Reason Comments Chemotherapy Cycle 10, Day 1 Pemb ro * Treatment/Therapy Plan Authorization (Routine) - Closed Specialty Diagnoses / Procedures Referred By Contac t Referred To Contact Hematology and Oncology Diagnoses Metastatic urothelial carcinoma Abnormal thyroid function test Procedures [id number] Jose Barnhart MD [address] [place] [address] [place] [address] Jose Lange MD [address] [place] [address] [place] [address] Referral ID Status Reason Start Date Expiration Date Visits Re quested Visits Authorized [id number] Closed 04/28/2022 06/24/2023 99 99 Encounter Details Date Type Department Care Team (Late st Contact Info) Description 10/30/2021 11:30 AM EDT Infusion Hematology Oncology at [address] [phone] Metastatic urothelial carcinoma; Abnormal thyroid [...] Progress Notes * Audrey Giron RN - 10/30/2021 11:30 AM EDT INFUSION THERAPY ADMINISTRATION NOTES DIAGNOSIS: Urothelial CA CYCLE #: 10 Day 1 REASON FOR VISIT: Pembrolizumab Infusion SUBJECTIVE Ms. Bullard is here for C10D1 Pembrolizumab. She is overall doing well. Met with provider today priorto infusion appt, has no questions/concerns and is ready for treatment today. OBJECTIVE LAB DATA: Labs drawn today at [facility] and reviewed by this RN. No holds per treatment plan Pre administration: Chemotherapy orders independently verified for drug name, route, and dosage per patient's height, weight and BSA by Audrey Aguirre, TORITO and pharmacist on-site. REACTIONS (DESCRIPTION, TIME, INTERVENTION AND EFFECTIVENESS) none ASSESSMENT Ms Bullard was awake, alert and tolerated treatment well. PLAN Return to clinic in 3 weeks for consideration of C11. Patient was reminded to call in the interim with any questions/concerns. documented in this encounter Plan of Treatment Upcoming Encounters Date Type Department Care Team (Late st Contact Info) Description 12/08/2023 3:30 PM EDT Office Visit Hematology/Oncology at [address] [phone] Chase Mckay MD [facility] [place] [address] documented as of this encounter Visit Diagnoses [...] 500 Units, Intravenous, ONCE PRN, Starting on Fri10/30/21 at 1205, Until Tu10/30/21 at 1545, Line Care, Refer to Intravenous (IV) Procedure: Accessing Implanted Vascular Access Devices (347) procedure and/or Intravenous (IV) Job Aid: Adult Flushing & Catheter Care (3680) job aid for additional information regarding guidelines and administration., Routine Given 10/30/2021 1:11 PM EDT 500 Units pembrolizumab (Keytruda) 200 mg in sodium chloride 0.9% 108 mL infusion 200 mg, Intravenous, ONCE, 1 dose, On Fri10/30/21 at 1330, Administer over 30 Minutes, Flush line with NS after each dose., This agent is restricted to outpatient use. Is this drug being given as an outpatient? Yes New Bag 10/30/2021 12:38 PM EDT 200 mg 216 mL/hr sodium chloride 0.9 % (flush) (BD PosiFlush Normal Saline 0.9) flush 5-20 mL 5-20 mL, Intravenous, EVERY 1 MIN PRN, Starting on Fri10/30/21 at 1205, Until Fri10/30/21 at 1545, Line Care, Flush pertains to all indwelling lines. Flush per protocol found in the job aid using the link provided on this medication record. Refer to Intravenous (IV) Job Aid: Adult Flushing & Catheter Care (9311) job aid for additional information regarding guidelines and administration., Routine Given 10/30/2021 1:11 PM EDT 20 mLs sodium chloride 0.9% infusion 100 mL/hr, Intravenous, CONTINUOUS, Starting on Fri10/30/21 at 1230, Until Fri10/30/21 at 1545 New Bag 10/30/2021 12:34 PM EDT 100 mL/hr 100 mL/hr documented in this encounter Care Teams Fretted Instrument Maker Hand Relationship Specialty Start Date End Date Eren Shah DNP PCP - General Family Medicine 03/20/21 06/10/22 documented as of this encounter
--- OUTSIDE RECORDS SUMMARY | 2023-11-21 15:59 | XMS_ITS | Encounter Summary ---
[facility] [place] [address] Care Team Providers Care Water Attendant Name Role Phone Eren Shah CHELSEA Primary Care Provider [phone] Reason for Referral * Diagnostic Test (Routine) - Closed Specialty Diagnoses / Procedures Referred By Contac t Referred To Contact Radiology Diagnoses Metastatic urothelial carcinoma Primary lung adenocarcinoma, left Procedures NM PET CT Skull Base to Mid-thigh Jose Lange MD [facility] [address] [place] [address] [place] [address] Referral ID Status Reason Start Date Expiration Date V isits Requested Visits Authorized [id number] Closed Specialty Service Requested 01/22/2022 07/23/2023 1 1 Encounter Details Date Type Department Care Team (Late st Contact Info) Description 01/22/2022 11:00 AM EDT Office Visit Hematology/Oncology at [address] [phone] Jose Lange MD [facility] [address] [place] [address] Abena Ogden RN Metastatic urothelial carcinoma; Abnormal thyroid function test; Hypothyroidism due to drugs; Primary lung adenocarcinoma, left; Anemia of chronic [...] Sign Reading Time Taken Comments Blood Pressure 117/77 01/22/2022 11:04 AM EDT Pulse 84 01/22/2022 11:04 AM EDT Temperature 35.6 ??C (96 ??F) 01/22/2022 11:04 AM EDT Respiratory Rate 16 01/22/2022 11:04 AM EDT Oxygen Saturation 99% 01/22/2022 11:04 AM EDT Inhaled Oxygen Concentration - - Weight 67.1 kg (148 lb) 01/22/2022 11:04 AM EDT Height 163.8 cm (5' 4.49) 01/22/2022 11:04 AM E DT Body Mass Index 25.02 01/22/2022 11:04 AM EDT documented in this encounter Progress Notes * Jose Lange MD - 01/22/2022 11:00 AM EDT Images from the original note were not included. Hematology & Medical Oncology [address] [phone] Barb returns today to continue treatment for [...] distinct lung primary. She was seen by glove factory sewer , who recommended rigid bronchoscopy withattempts to [...] She wasdischarged home on 05/01/21 Interval history 01/22/22 Barb returns today for followup of her bladder cancer and next dose of pembrolizumab. She continues to feel well. She had her nephostomy tubes changed on January 18. Granite discomfort. The site of nephrostomy tube insertion but it is improving. Complaints on rash on upper c hest with mild itching..She is taking her synthroid. Bowel movements are regular no diarrhea. Her energy level is good. She denies any pain other than some discomfort around the right nephrostomy tube which comes and goes. She denies any shortness of breath or chest pain or cough. ROS Is otherwise negative. PMH: Bilateral over the wire conversion of nephro-ureteral stent to 10 Fr nephrostomy catheters 01/18/2022 UTI 09/14/2021 04/26/21-05/01/21 admission to [facility] with pneumonia, Pulmonary hypertension/CHF, BRITNI 04/16/2021 nephrostomy catheter exchange 04/04/21 bronchoscopy and tumor debulking- endobronchial biopsies positive for adenocarcinoma of lung origin Social History: No interval changes since last visit [id number] smoking history quit 6 years ago, does not drink alcohol, used to live independently, but currently moved to her daughters house. Family History: No interval changes since last visit Brother had liver cancer, mother had leukemia, maternal aunt had colon cancer in cousin had bladdercancer Allergies: No Known Allergies Medications: Your Medications Accurate as of January 22, 2022 11:23 AM. If you have any questions, ask [...] axillary nodes normal Neurologic: Normal Vitals BP 117/77 (Patient Position: Sitting) Pulse 84 Temp 35.6 ??C (96 ??F) (Temporal) Resp 16 Ht 163.8 cm (5' 4.49) Wt 67.1 kg (148 lb) SpO2 99% BMI 25.02 kg/m?? Pathology: Molecular pathology KRAS p.G12C c.34G>T [...] assay was performed according to the food mixer's ??instructions using Anti-PD-L1 (22C3, pharmDX) antibody. Electronically signed by: ?Herbert Ford MD Verified: ??04/11/2021 8:14 ?? Pathologist Performed at: ??-[facility] Dept. of Pathology, [place], [place] ? Surgical Pathology DIAGNOSIS A - Lung, ??left lower lobe mass, debulking: ?? - Adenocarcinoma, consistent with lung primary. Electronically signed by: ?Sana Dowell MD Verified: ??04/06/2021 11:16 ??Pathologist Performed at: ??-[facility] Dept. of Pathology, [place], [place] DISCUSSION Sections show an invasive, predominantly [...] propria. - No muscularis propria identified. Labs: 01/22/2022 BUN 21, creatinine 1.6, calcium 9.9, [...] of presumably metastatic urothelial carcinoma which include [place] based chemotherapy versus immunotherapy. Due to her [...] lung cancer. To begin, we'll have Everette Bullard follow-up with Dr. Lange for treatment [...] restage here prior to cycle 16 of pembrolizumab # Low back pain- She is taking Tramadol 50 mg(1/2) every 12 hours with tylenol in between if needed. She follows with Palliative Care. #Abnormal thyroid function: will increase levothyroxine to 50 mcg.. Will monitor thyroid function. TSH is 14.04 #Renal insufficiency: Cr 1.6 today, stable, Creatinine 3.0 on admission, today creatinine is 1.5- be. She has bilateral nephrostomy tubes. . She is due for a tube change- not done yet. #Pneumonia treated with ceftriaxone and azithromycin and finished course of Levaquin at home. No clinical evidence of infection today. # Anemia- resolved Plan: 1. Proceed with C14 Pembrolizumab today 2. Continue levothyroxine 50 mcg a day. 3. Next visit with CBC,CMP, TSH, FT4 and pembrolizumab in 3 weeks 4. PET scan in 4-5 weeks Barb voiced understanding of the plan [...] PM EDT Office Visit Hematology/Oncology at [address] [phone] Chase Mckay MD [facility] [address] [place] [address] documented as of this encounter Results * [...] coordinator that requested your imaging first. ? Narrative 03/12/2022 12:04 PM EST EXAMINATION: NM PET CT STANDARD SKULL BASE TO MID-THIGH CLINICAL HISTORY: Non-small cell lung cancer, assess treatment response; Urologic cancer, assess treatment response - Include more detail below Restaging of metastatic urothelial carcinoma and primary lung cancer On pembrolizumab. TECHNIQUE: Following IV injection of 21-xjhpmu-0-deoxyglucose (FDG) a standard uptake of approximately 60 [...] On pembrolizumab. TECHNIQUE: Following IV injection of 02-nckbnf-9-deoxyglucose (FDG) astandard uptake of approximately 60 minutes, [...] left hilum with SUV max of 31.6, [id number]. Interval increased size and FDG avidity in [...] care coordinator that requested your imaging first. Jose Lange MD IMG PET ORDERABLES documented in this encounter Visit Diagnoses Diagnosis Metastatic urothelial carcinoma Secondary malignant neoplasm of other urinary organs Abnormal thyroid function test Nonspecific abnormal results of thyroid function study Hypothyroidism due to drugs Other iatrogenic hypothyroidism Primary lung adenocarcinoma, left Anemia of chronic disease Anemia of other chronic disease Metastatic urothelial carcinoma Secondary malignant neoplasm of other urinary organs Primary lung adenocarcinoma, left documented in this encounter Care Teams Water Attendant Relationship Specialty Start Date End Date Eren Shah DNP PCP - General Family Medicine 03/20/21 06/10/22 documented as of this encounter
--- OUTSIDE RECORDS SUMMARY | 2023-11-21 15:59 | XMS_ITS | Encounter Summary ---
Author Organization [facility] [place] [address] Care Team Providers Care Utility Person Name Role Phone Eren Shah CHELSEA Primary Care Provider +1 [phone] Reason for Visit * Reason Comments Chemotherapy Cycle 11, Day 1 * Treatment/Therapy Plan Authorization (Routine) - Closed Specialty Diagnoses / Procedures Referred By Contac t Referred To Contact Hematology and Oncology Diagnoses Metastatic urothelial carcinoma Abnormal thyroid function test Procedures [id number] Jose Barnhart MD [address] [place] [address] [place] [address] Jose Lange MD [address] [place] [address] [place] [address] Referral ID Status Reason Start Date Expiration Date Visits Re quested Visits Authorized [id number] Closed 04/28/2022 06/24/2023 99 99 Encounter Details Date Type Department Care Team (Late st Contact Info) Description 11/20/2021 9:30 AM EDT Infusion Hematology Oncology at [address] [phone] Metastatic urothelial carcinoma; Abnormal thyroid [...] as of this encounter Progress Notes * Marci Chen RN - 11/20/2021 9:30 AM EDT INFUSION THERAPY ADMINISTRATION NOTES DIAGNOSIS: Urothelial CA CYCLE #11: Day 1 REASON FOR VISIT: Pembrolizumab Infusion SUBJECTIVE Ms. Bullard is here for C11D1 Pembrolizumab. She is overall doing well. Met with provider today priorto infusion appt, has no questions/concerns and is ready for treatment today. OBJECTIVE LAB DATA: Labs drawn today at [facility] and reviewed by this RN. No holds per treatment plan. IV ACCESS: Mediport accessed by [facility], flushes easily with no blood return. Pt reports it was has been positional the last few blood draws. Cath denisse instilled. Blood return noted after 1.5 hrs dwell time. Port now flushing easily with excellent blood return. PIV was started to give pembrolizumab, site flushed with NS after treatment and removed. Pre administration: Chemotherapy orders independently verified for drug name, route, and dosage per patient's height, weight and BSA by Marci Chen, TORITO and pharmacist on-site. REACTIONS (DESCRIPTION, TIME, INTERVENTION AND EFFECTIVENESS) none ASSESSMENT Ms Bullard was awake, alert and tolerated treatment well. PLAN Return to clinic in 3 weeks for consideration of C12. Patient was reminded to call in the interim with any questions/concerns. documented in this encounter Plan of Treatment Upcoming Encounters Date Type Department Care Team (Late st Contact Info) Description 12/08/2023 3:30 PM EDT Office Visit Hematology/Oncology at [address] [phone] Chase Mckay MD [facility] DR HEMATOLOGY [place] [address] documented as of this encounter Visit Diagnoses [...] 2 mg, Intravenous, ONCE PRN, Starting on Fri11/20/21 at 0939, Until Fri11/20/21 at 1418, Line Occlusion, Refer to Cathflo Activase (Alteplase) Administration policy for additional information regarding guidelines and administration., Routine Given 11/20/2021 9:50 AM EDT 2 mg heparin (pf) (porcine) (100 units/mL) flush 5 mL syringe 500 Units 500 Units, Intravenous, ONCE PRN, Starting on Fri11/20/21 at 0932, Until Fri11/20/21 at 1418, Line Care, Refer to Intravenous (IV) Procedure: Accessing Implanted Vascular Access Devices (924) procedure and/or Intravenous (IV) Job Aid: Adult Flushing & Catheter Care (1801) job aid for additional information regarding guidelines and administration., Routine Given 11/20/2021 11:33 AM EDT 500 Units pembrolizumab (Keytruda) 200 mg in sodium chloride 0.9% 108 mL infusion 200 mg, Intravenous, ONCE, 1 dose, On Fri11/20/21 at 1100, Administer over 30 Minutes, Flush line with NS after each dose., This agent is restricted to outpatient use. Is this drug being given as an outpatient? Yes New Bag 11/20/2021 10:50 AM EDT 200 mg 216 mL/hr sodium chloride 0.9 % (flush) (BD PosiFlush Normal Saline 0.9) flush 5-20 mL 5-20 mL, Intravenous, EVERY 1 MIN PRN, Starting on Fri11/20/21 at 0932, Until Fri11/20/21 at 1418, Line Care, Flush pertains to all indwelling lines. Flush per protocol found in the job aid using the link provided on this medication record. Refer to Intravenous (IV) Job Aid: Adult Flushing & Catheter Care (0478) job aid for additional information regarding guidelines and administration., Routine Given 11/20/2021 11:33 AM EDT 20 mLs sodium chloride 0.9% infusion 100 mL/hr, Intravenous, CONTINUOUS, Starting on Fri11/20/21 at 1000, Until Fri11/20/21 at 1418 New Bag 11/20/2021 10:45 AM EDT 100 mL/hr 100 mL/hr documented in this encounter Care Teams Utility Person Relationship Specialty Start Date End Date Eren Shah DNP PCP - General Family Medicine 03/20/21 06/10/22 documented as of this encounter
--- OUTSIDE RECORDS SUMMARY | 2023-11-21 16:00 | XMS_ITS | Encounter Summary ---
Author Organization [facility] Address [facility] [place] [address] Care Team Providers Care Retail Cosmetics Sales Beauty Advisor Name Role Phone Eren Shah DNP Primary Care Provider Encounter Details Date Type Department Care Team (Late st Contact Info) Description 05/15/2021 Notes Only Hematology/Oncology at [address] [phone] Elizabeth Mccray, [facility] OFFICE OF CARE MANAGEMENT Social History Tobacco [...] Progress Notes * Elizabeth Mccray MSW - 05/15/2021 11:35 AM EST Follow up with pt during her infusion visit today. Pt glad she could get her treatment this week. She thinks she is feeling a bit stronger. She is managing day to day at home with her daughter. She does what she feels up to. She misses not feeling up to helping her brother which had been doing. Hersiblings have health issues too. Offered support. Pt did not identify any new needs today. Reminded her of [facility] availability and contact information. Will follow for support and resources. Brief assessment Supportive Counseling documented in this encounter Plan of Treatment Upcoming Encounters Date Type Department Care Team (Late Contact Info) Description 12/08/2023 3:30 PM EDT Office Visit Hematology/Oncology at [address] [phone] Chase Mckay MD [facility] DR HEMATOLOGY AND ONCOLOGY [place], [place] [id number] documented as of this encounter Visit Diagnoses Not on filedocumented in this encounter Care Teams Retail Cosmetics Sales Beauty Advisor Relationship Specialty Start Date End Date Eren Shah DNP PCP - General Family Medicine 03/20/21 06/10/22 documented as of this encounter
--- OUTSIDE RECORDS SUMMARY | 2023-11-21 16:00 | XMS_ITS | Encounter Summary ---
Author Organization [facility] [place] [address] Care Team Providers Care Miller First Name Role Phone Eren Shah DNP Primary Care Provider [phone] Encounter Details Date Type Department Care Team (Late st Contact Info) Description 05/09/2021 9:00 AM EST Office Visit Hematology/Oncology at [address] [phone] Abena Ogden, RN Metastatic urothelial [...] Sign Reading Time Taken Comments Blood Pressure 106/62 05/09/2021 9:08 AM EST Pulse 110 05/09/2021 9:08 AM EST Temperature 36.2 ??C (97.2 ??F) 05/09/2021 9:08 AM ES T Respiratory Rate 20 05/09/2021 9:08 AM EST Oxygen Saturation 100% 05/09/2021 9:08 AM EST Inhaled Oxygen Concentration - - Weight 62.3 kg (137 lb 6.4 oz) 05/09/2021 9:08 A M EST Height 163.8 cm (5' 4.49) 05/09/2021 9:08 AM ES T Body Mass Index 23.23 05/09/2021 9:08 AM EST documented in this encounter Progress Notes * Abena Ogden, ALESSANDRO - 05/09/2021 9:00 AM EST Images from the original note were not included. Diagnosis: Metastatic urothelial carcinoma CC: I have urge to urinate HPI: Barb Bullard is 70 y.o.F referred by Dr. Arzate for consultation [...] distinct lung primary. She was seen by lead architect , who recommended rigid bronchoscopy with attempts to open the LLL broncus as well as stage the mediastinum with EBUS. The procedure has been scheduled yet. Interval history(04/29/21): Ms. Bullard is in clinic for follow-up of bladder cancer. She underwent 04/04 bronchoscopy and tumor debulking on April 042020- endobronchial biopsies positive for adenocarcinoma of lung origin. She received one dose on immunotherapy IV on 04/18/21 and then unfortunately was admitted to the hospital on 03/3021 with CAP, BRITNI and pulmonary HTN. She was discharged home on 05/01/21. She is accompanied by her daughter Daisha today. She completed a course of Levaquin 48 hours ago. She denies any fevers or chills. She is coughing but no hemoptysis. She is now on Lasix poas she was found to have pulmonary HTN in hospital. Creatinine is 1.8 today- her baseline is 1.5. She has a follow up with her PCP to review medications. She does have home health nurses twice a week. Nephrostomy tubes are draining well. She had them exchanged in March. She has not heard from [facility] for follow up. She is having intermittent low back pain. Has taken ibuprofen for the discomfort. She is feeling fatigued today. She has filled out a DNR and advance directives. Elizabeth DUNBAR will meet with her today to finalize the paperwork. PMH: 04/16/2021 nephrostomy catheter exchange 04/04/21 bronchoscopy and tumor debulking- endobronchial biopsies positive for adenocarcinoma of lung origin Social History: [id number] smoking history quit 6 years ago, does not drink alcohol, used to liveindependently, but currently moved to her daughter house. Family History: Brother had liver cancer, mother had leukemia, maternal aunt had colon cancer in cousin had bladder cancer Allergies: No Known Allergies Medications: Your Medications Accurate as of May 09, 2021 8:18 AM. If you have any questions, ask your nurse or doctor. Continued medications, unchanged Dose Details docusate sodium 100 mg Cap Commonly known as: Colace Take 100 mg by mouth daily. 100 mg Refills: 0 ferrous sulfate EC 325 mg (65 mg iron) Tbec Take 325 mg by mouth daily. 325 mg Refills: 0 fluconazole 200 mg Tab Commonly known as: Diflucan Take 200 mg by mouth daily. 200 mg Refills: 0 polyethylene glycoL 17 gram/dose Powd Commonly known as: Miralax DISSOLVE ONE TEASPOONFUL IN WATER AND DRINK THREE TIMES A DAY Refills: 0 prochlorperazine 10 mg Tab Commonly known as: Compazine Take 1 tablet by mouth every 6 hours as needed for Nausea. 10 mg Quantity: 15 tablet Refills: 0 Review of Systems: Constitutional: Negative for fever, chills. Positive for fatigue. HEENT: Negative for sore throat, mouth sores and trouble swallowing. Eyes: Negative. Respiratory: positive shortness of breath. No wheezing. No hemoptysis. Positive for cough. Cardiovascular: Negative for chest pain, palpitations and leg swelling. Gastrointestinal: Negative for nausea, vomiting, abdominal pain, diarrhea, constipation and abdominal distention. Genitourinary:Bilateral nephrostomy tubes. Musculoskeletal: Positive for low back pain. Skin: Negative. Neurological: Negative. Hematological: Negative for adenopathy. PE: General: AAAx3, in NAD. Frail elder in wheelchair. Head: Normocephalic, without obvious abnormality, atraumatic Eyes: PERRL, conjunctiva/corneas clear both eyes Ears: Nose: Throat: Wearing a mask Neck: Supple, symmetrical, trachea midline, no adenopathy, thyroid: not enlarged, symmetric, no tenderness/mass/nodules. Back: Symmetric, no curvature, ROM normal, no CVA tenderness Lungs: Clear to auscultation on right. Diminished on left. No wheezes. Chest Wall: No [...] axillary nodes normal Neurologic: Normal Vitals BP 106/62 (Patient Position: Sitting) Pulse (!) 110 Temp 36.2 ??C (97.2 ??F) (Temporal) Resp 20 Ht 163.8 cm (5' 4.49) Wt 62.3 kg (137 lb 6.4 oz) SpO2 100% BMI 23.23 kg/m?? Pathology: 04/04/21 ADDENDUM DISCUSSION PD-L1 Immunohistochemistry Study Tissue: [...] The assay was performed according to the doctor of podiatry's ??instructions using Anti-PD-L1 (22C3, pharmDX) antibody. Electronically signed by: ?Herbert Ford MD Verified: ??04/11/2021 8:14 ?? Pathologist Performed at: ??-[facility] Dept. of Pathology, [place], [place] ? Surgical Pathology DIAGNOSIS A - Lung, ??left lower lobe mass, debulking: ?? - Adenocarcinoma, consistent with lung primary. Electronically signed by: ?Sana Dowell MD Verified: ??04/06/2021 11:16 ??Pathologist Performed at: ??-[facility] Dept. of Pathology, [place], [place] DISCUSSION Sections show an invasive, predominantly [...] propria. - No muscularis propria identified. Labs: 05/09/21- WBC-12.15 Hgb/Hct-9.0/29.3 Plt-984 ANC-7.16 Na-138 K+-3.1 BUN/Cr-31/1.8 Glucose-114 Ca-8.6 T. Bili-0.3 AST-13 ALT-20 Alk phos-133 Albumin-2.7 03/21/2021 WBC 27.8, hemoglobin 10.2, platelet count 871, BUN 39, creatinine 1.9, calcium 10.3 Imagin03/20/[address] scan: IMPRESSION 1. Hypermetabolic circumferential [...] and lung versus primary lung cancer Treatment: Ms. Bullard presented with bilateral hydronephrosis and [...] of presumably metastatic urothelial carcinoma which include yuhaaviatam based chemotherapy versus immunotherapy. Due to her [...] metastatic urothelial carcinoma and primary lung adenocarcinoma. Elizabeth returned today to continue treatment with Pebrolizumab. Since we saw her last she was hospitalized with CAP, BRITNI and pulmonary HTN. She completed antibiotics 48 hours ago. No fevers. WBC 12.15 with ANC 7.16. She was transfused in hospital- Hgb 9.0 today. MCV-83.2. She is on oral iron. Cr today is 1.8- not back to her baseline of 1.5 She is on daily lasix now. K+-3.1. She is very weak and fatigued today. We will hold treatment and have her return Friday # Low back pain- Taking ibuprofen. Asked her to discontinue this and we will try Tramadol 50 mg every 12 hours with tylenol in between if needed. Follow up with palliative care. She has talked with them by phone. Plan: 1. Hold Pembrolizumab today- reschedule for FridayMay 16. Have her see Dr. Lange. 2. Repeat labs on Tuesday 05/16- CBC,CMP, TSH, FT4 3. Check on referral for nephrostomy tube management- [facility] called and they are trying to get her in. 4. Elizabeth will help completed advance directives today. She is a DNR now. 5. Prescription for Tramadol 50 mg po for low back pain. 6. Prescription for Klor-Con 10 meq day- # 15- follow up with PCP. The plan was discussed with patient's in details. All questions were answered to patient satisfaction. I would like to thank Dr. Arzate for allowing me to participate in the care of this wonderful lady documented in this encounter Plan of Treatment Upcoming Encounters Date Type Department Care Team (Late st Contact Info) Description 12/08/2023 3:30 PM EDT Office Visit Hematology/Oncology at [address] [phone] Chase Mckay MD [facility] DR HEMATOLOGY [place] [address] documented as of this encounter Visit Diagnoses Diagnosis Metastatic urothelial carcinoma Secondary malignant neoplasm of other urinary organs documented in this encounter Care Teams Miller First Relationship Specialty Start Date End Date Eren Shah DNP PCP - General Family Medicine 03/20/21 06/10/22 documented as of this encounter
--- OUTSIDE RECORDS SUMMARY | 2023-11-21 16:00 | XMS_ITS | Encounter Summary ---
Author Organization [facility] Address [facility] [place] [address] Care Team Providers Care Laser Set Up Operator Name Role Phone Eren Shah DNP Primary Care Provider [phone] Encounter Details Date Type Department Care Team (Latest Contact Info) Description 05/18/2021 1:00 PM EST TH Visit (TeleHealth) Hematology/Oncology at [address] [phone] [facility] DR [place] [address] Metastatic urothelial carcinoma Social History Tobacco Use [...] as of this encounter Progress Notes * Cande Antonio RD - 05/18/2021 1:00 PM EST Nutrition Note Attempted to reach patient by phone today. Left voicemail with callback number. Will schedule f/u on 06/20 in clinic. documented in this encounter Plan of Treatment Upcoming Encounters Date Type Department Care Team (Late st Contact Info) Description 12/08/2023 3:30 PM EDT Office Visit Hematology/Oncology at [address] [phone] Chase Mckay MD [facility] DR [place] [address] documented as of this encounter Visit Diagnoses Diagnosis Metastatic urothelial carcinoma Secondary malignant neoplasm of other urinary organs documented in this encounter Care Teams Laser Set Up Operator Relationship Specialty Start Date End Date Eren Shah DNP PCP - General Family Medicine 03/20/21 06/10/22 documented as of this encounter
--- OUTSIDE RECORDS SUMMARY | 2023-11-21 16:00 | XMS_ITS | Encounter Summary ---
Author Organization [facility] Address [facility] [place] [address] Care Team Providers Care Med Spec Name Role Phone Eren Shah CHELSEA Primary Care Provider +1 [phone] Reason for Visit * Reason Comments IV Access Mediport Flush & De- Access Encounter Details Date Type Department Care Team (Late st Contact Info) Description 05/09/2021 9:30 AM EST Infusion Hematology Oncology at [address] [phone] Metastatic urothelial carcinoma Social History [...] Progress Notes * Gay Marshall RN - 05/09/2021 9:30 AM EST INFUSION THERAPY ADMINISTRATION NOTES DIAGNOSIS: Met. Urothelial CA REASON FOR VISIT: MEDIPORT FLUSH ONLY Patient seen by Abena Ogden APRN in clinic. Chemotherapy held today (see KITCHEN STEWARD note) IV ACCESS: Mediport GAUGE: 19G BLOOD RETURN: [...] PM EDT Office Visit Hematology/Oncology at [address] [phone] Chase Mckay MD [facility] DR HEMATOLOGY [place] [address] documented as of this encounter Visit Diagnoses Diagnosis Metastatic urothelial carcinoma Secondary malignant neoplasm of other urinary organs documented in this encounter Care Teams Med Spec Relationship Specialty Start Date End Date Eren Shah DNP PCP - General Family Medicine 03/20/21 06/10/22 documented as of this encounter
--- OUTSIDE RECORDS SUMMARY | 2023-11-21 16:00 | XMS_ITS | Encounter Summary ---
Author Organization [facility] Address [facility] [place] [address] Care Team Providers Care Homoeopath Name Role Phone Eren Shah DNP Primary Care Provider [phone] Encounter Details Date Type Department Care Team (Late st Contact Info) Description 07/18/2021 Orders Only Hematology/Oncology at [address] [phone] Abena Ogden, RN Anemia of chronic disease; Metastatic urothelial carcinoma Social History Tobacco Use [...] PM EDT Office Visit Hematology/Oncology at [address] [phone] Chase Mckay MD [facility] DR [place]ATOLOGY [place] [address] documented as of this encounter Visit Diagnoses Diagnosis Anemia of chronic disease Anemia of other chronic disease Metastatic urothelial carcinoma Secondary malignant neoplasm of other urinary organs documented in this encounter Care Teams Homoeopath Relationship Specialty Start Date End Date Eren Shah DNP PCP - General Family Medicine 03/20/21 06/10/22 documented as of this encounter
--- OUTSIDE RECORDS SUMMARY | 2023-11-21 16:00 | XMS_ITS | Encounter Summary ---
Author Organization [facility] [place] [address] Care Team Providers Care Assistant Center Director Name Role Phone Eren Shah CHELSEA Primary Care Provider [phone] Reason for Visit * Reason Comments Chemotherapy Cycle 2, Day 1; Pemb ro * Treatment/Therapy Plan Authorization (Routine) - Closed Specialty Diagnoses / Procedures Referred By Contac t Referred To Contact Hematology and Oncology Diagnoses Metastatic urothelial carcinoma Abnormal thyroid function test Procedures [id number] Jose Barnhart MD [address] [place] [address] [place] [address] Jose Lange MD [address] [place] [address] [place] [address] Referral ID Status Reason Start Date Expiration Date Visits Re quested Visits Authorized [id number] Closed 04/28/2022 06/24/2023 99 99 Encounter Details Date Type Department Care Team (Late st Contact Info) Description 05/15/2021 10:30 AM EST Infusion Hematology Oncology at [address] [phone] Metastatic urothelial carcinoma; Abnormal thyroid [...] Progress Notes * Rasheed Roper, RN - 05/15/2021 10:30 AM EST INFUSION THERAPY ADMINISTRATION NOTES DIAGNOSIS: urothelial CYCLE #:2, Day 1 REASON FOR VISIT: Pembro SUBJECTIVE Barb offers no complaints. OBJECTIVE LAB DATA: 05/15 WBC 11.9, Hg 9.7, Plts 958, ANC 6.2, BUN/Cr 24/1.8 IV ACCESS: mediport accessed at OSH for labs, brisk blood return. Pre administration: Chemotherapy orders independently verified for drug name, route, and dosage per patient's height, weight and BSA by RASHEED ROPER, RN & onsite pharmacist REACTIONS (DESCRIPTION, TIME, INTERVENTION AND EFFECTIVENESS) none ASSESSMENT Barb Bullard was awake, alert and tolerated treatment well. Port flushed with 20ml of NS and 500 units of heparin and de-accessed after infusion completed. PLAN Return to clinic per routine. documented in this encounter Plan of Treatment Upcoming Encounters Date Type Department Care Team (Late st Contact Info) Description 12/08/2023 3:30 PM EDT Office Visit Hematology/Oncology at [address] [phone] Chase Mckay MD [facility] DR [place] [address] documented as of this encounter Visit Diagnoses [...] 500 Units, Intravenous, ONCE PRN, Starting on Fri05/15/21 at 1046, Until Fri05/15/21 at 1413, Line Care, Refer to Intravenous (IV) Procedure: Accessing Implanted Vascular Access Devices (864) procedure and/or Intravenous (IV) Job Aid: Adult Flushing & Catheter Care (0031) job aid for additional information regarding guidelines and administration., Routine Given 05/15/2021 11:48 AM EST 500 Units pembrolizumab (Keytruda) 200 mg in sodium chloride 0.9% 108 mL infusion 200 mg, Intravenous, ONCE, 1 dose, On Fri05/15/21 at 1215, Administer over 30 Minutes, Flush line with NS after each dose., This agent is restricted to outpatient use. Is this drug being given as an outpatient? Yes New Bag 05/15/2021 11:15 AM EST 200 mg 216 mL/hr sodium chloride 0.9 % (flush) (BD PosiFlush Normal Saline 0.9) flush 5-20 mL 5-20 mL, Intravenous, EVERY 1 MIN PRN, Starting on Fri05/15/21 at 1046, Until Fri05/15/21 at 1413, Line Care, Flush pertains to all indwelling lines. Flush per protocol found in the job aid using the link provided on this medication record. Refer to Intravenous (IV) Job Aid: Adult Flushing & Catheter Care (4194) job aid for additional information regarding guidelines and administration., Routine Given 05/15/2021 11:48 AM EST 20 mLs documented in this encounter Care Teams Assistant Center Director Relationship Specialty Start Date End Date Eren Shah DNP PCP - General Family Medicine 03/20/21 06/10/22 documented as of this encounter
--- OUTSIDE RECORDS SUMMARY | 2023-11-21 16:00 | XMS_ITS | Encounter Summary ---
[facility] Organization [facility] [address] Care Team Providers Care Dupligraph Operator Name Role Phone Eren Shah DNP Primary Care Provider +1 [phone] Encounter Details Date Type Department Care Team (Late st Contact Info) Description 07/20/2021 Orders Only Hematology [place] [address] Suzanne Burgess, [facility] HEMATOLOGY-[place] [address] Primary lung adenocarcinoma, left Social History Tobacco [...] PM EDT Office Visit Hematology/Oncology at [address] [phone] Chase Mckay MD [facility] DR HEMATOLOGY [place] [address] documented as of this encounter Visit Diagnoses Diagnosis Primary lung adenocarcinoma, left documented in this encounter Care Teams Dupligraph Operator Relationship Specialty Start Date End Date Eren Shah DNP PCP - General Family Medicine 03/20/21 06/10/22 documented as of this encounter
--- OUTSIDE RECORDS SUMMARY | 2023-11-21 16:00 | XMS_ITS | Encounter Summary ---
[place] [address] Care Team Providers Care Marketing Admin Name Role Phone Eren Shah DNP Primary Care Provider [phone]- [phone] Reason for Referral * Diagnostic Test (Routine) - Closed Specialty Diagnoses / Procedures Referred By Contac t Referred To Contact Radiology Diagnoses Metastatic urothelial carcinoma Procedures CT Chest Abdomen Pelvis w Contrast (Generic) Abena Ogden RN [address] [place] [address] [place] [address] [facility] [place] [address] Referral ID Status Reason Start Date Expiration Date V isits Requested Visits Authorized [id number] Closed Specialty Service Requested 06/26/2021 12/27/2022 1 1 Encounter Details Date Type Department Care Team (Late st Contact Info) Description 06/26/2021 10:00 AM EST Office Visit Hematology/Oncology at [address] [phone] Jose Lange MD [facility] DR HEMATOLOGY [place] [address] Abena Ogden, RN Metastatic urothelial carcinoma; Anemia of chronic disease Social History Tobacco [...] Sign Reading Time Taken Comments Blood Pressure 135/67 06/26/2021 10:36 AM EST Pulse 87 06/26/2021 10:36 AM EST Temperature 35.4 ??C (95.7 ??F) 06/26/2021 10:[address] Respiratory Rate - - Oxygen Saturation 97% 06/26/2021 10:36 AM EST Inhaled Oxygen Concentration - - Weight 63.7 kg (140 lb 6.4 oz) 06/26/2021 10:36 AM EST Height 163.7 cm (5' 4.45) 06/26/2021 10:[address] Body Mass Index 23.76 06/26/2021 10:36 AM EST documented in this encounter Progress Notes * Abena Ogden, ROUGHER MACHINE OPERATOR - 06/26/2021 10:00 AM EST Images from the original note were not included. Hematology & Medical Oncology [address] [address] Barb returns today to continue treatment for Metastatic urothelial carcinoma HPI: Barb Bullard is 70 y.o.F referred [...] distinct lung primary. She was seen by vehicle and equipment cleaner , who recommended rigid bronchoscopy with attempts [...] HTN. She wasdischarged home on 05/01/21 Interval history(06/26/21): Ms. Bullard is in clinic for follow-up of bladder cancer and pembrolizumab infusion. She is accompanied by her daughter Daisha. Overall she is feeling well today. No fevers,chills or signs of infection. She does have home health nurses twice a week. Nephrostomy tubes are draining well. Barb is followed by palliative care Dr. Patel. She is on tramadol for back pain.She takes 1/2 pill at a time- usually twice a day. She states it helps her sleep at night. The back pain is from the tubes- they pull at times. No rash but she does have itchy skin especially on her back. Denies any headaches, vision changes, trouble swallowing, cough or diarrhea. She has soft stools- no more than 2 a day. No blood noted in urine. She states her breathing is much better- she goes up and down the stairs without being short of breath. She still has to rest frequently but feelsshe is getting stronger. She was taking iron but it constipates her so she stopped taking it. No other focal complaints today. PMH: 04/26/21-05/01/21 admission to [facility] with pneumonia, Pulmonary hypertension/CHF, BRITNI 04/16/2021 nephrostomy catheter exchange 04/04/21 bronchoscopy and tumor debulking- endobronchial biopsies positive for adenocarcinoma of lung origin Social History: 28-[id number]-cqda smoking history quit 6 years ago, does not drink alcohol, used to liveindependently, but currently moved to her daughters house. Family History: Brother had liver cancer, mother had leukemia, maternal aunt had colon cancer in cousin had bladder cancer Allergies: No Known Allergies Medications: Your Medications Accurate as of June 26, 2021 10:52 AM. If you have any questions, ask your nurse or doctor. Continued medications, unchanged Dose Details docusate sodium 100 mg Cap Commonly known as: Colace Take 100 mg by mouth daily. 100 mg Refills: 0 ferrous sulfate EC 325 mg (65 mg iron) Tbec Take 325 mg by mouth every other day. 325 mg Refills: 0 furosemide 20 mg Tab Commonly known as: Lasix TAKE 1 TABLET BY MOUTH EVERY DAY WITH MEALS Refills: 0 polyethylene glycoL 17 gram/dose Powd Commonly known as: Miralax DISSOLVE ONE TEASPOONFUL IN WATER AND DRINK THREE TIMES A DAY Refills: 0 potassium chloride SA 10 mEq Tbtq Commonly known as: Klor-con Take 1 tablet by mouth daily. 10 mEq Quantity: 15 tablet Refills: 0 prochlorperazine 10 mg Tab Commonly known as: Compazine Take 1 tablet by mouth every 6 hours as needed for Nausea. 10 mg Quantity: 15 tablet Refills: 0 traMADoL 50 mg Tab Commonly known as: Ultram START WITH 1/2 TABLET BY MOUTH EVERY 6 HOURS NEEDED FOR PAIN - MAY INCREASE DOSE TO 1 TABLET EVERY 6 HOURS NEEDED FOR PAIN Quantity: 30 tablet Refills: 0 Review of [...] axillary nodes normal Neurologic: Normal Vitals BP 135/67 (Patient Position: Sitting) Pulse 87 Temp 35.4 ??C (95.7 ??F) (Temporal) Ht 163.7 cm (5' 4.45) Wt 63.7 kg (140 lb 6.4 oz) SpO2 97% BMI 23.76 kg/m?? Pathology: 04/04/21 ADDENDUM DISCUSSION PD-L1 Immunohistochemistry [...] The assay was performed according to the snuff box finisher's ??instructions using Anti-PD-L1 (22C3, pharmDX) antibody. Electronically signed by: ?Herbert Ford MD Verified: ??04/11/2021 8:14 ?? Pathologist Performed at: ??-[facility] Dept. of Pathology, [place], [place] ? Surgical Pathology DIAGNOSIS A - Lung, ??left lower lobe mass, debulking: ?? - Adenocarcinoma, consistent with lung primary. Electronically signed by: ?Sana Dowell MD Verified: ??04/06/2021 11:16 ??Pathologist Performed at: ??-[facility] Dept. of Pathology, [place], [place] DISCUSSION Sections show an invasive, predominantly [...] propria. - No muscularis propria identified. Labs: 06/26/21- WBC-9.83 Hgb/Hct-10.8/35.2 Plt-578 ANC-5.74 Ca-8.8 Glucose-90 [...] 871, BUN 39, creatinine 1.9, calcium 10.3 Imagin05/02/2020 chest x-ray: Impression: Moderate left pleural effusion [...] of presumably metastatic urothelial carcinoma which include citizen [place] based chemotherapy versus immunotherapy. Due to her [...] today to continue treatment with Pebrolizumab. She was hospitalized with CAP, BRITNI and pulmonary HTN in the beginning of April 2021. She completed antibiotics and feels significant improvement in her breathing... Cr is back to her baseline of 1.3 She wants to continue her current palliative immunotherapy. We will proceed with fourth cycle of pembrolizumab today and then restage her. # Low back pain- She is taking Tramadol 50 mg(1/2) every 12 hours with tylenol in between if needed. She follows with Palliative Care. #Renal insufficiency: Creatinine 3.0 on admission, today creatinine is 1.3- back to her baseline. She has bilateral nephrostomy tubes. Last exchanged in March 2021. She has a follow up appointmentwith Dr. Beckwith on July 13. #Pneumonia treated with ceftriaxone and azithromycin and finished course of Levaquin at home. No clinical evidence of infection today. # Anemia- multifactoral. She is unable to tolerate oral iron. Repeat ferritin and iron, TIBC. Plan: 1. Proceed with C4 Pembrolizumab today 2. Next visit with CBC,CMP, TSH, FT4, Ferritin, Iron and TIBC and pembrolizumab in 3 weeks 3. Follow up appointment on 07/13/[address] Beckwith. 4. Restaging CT chest, abdomen and pelvis prior to the if possible. Barb voiced understanding of the plan and was given an opportunity to ask questions which I answered to the best of my ability. Barb understands she can call the clinic between visits with any questions/concerns or new symptoms. Abena Ogden MSN, ROUGHER MACHINE OPERATOR, AOCNP Medical Oncology documented in this encounter Plan of Treatment Upcoming Encounters Date Type Department Care Team (Late st Contact Info) Description 12/08/2023 3:30 PM EDT Office Visit Hematology/Oncology at [address] [phone] Chase Mckay MD [facility] DR HEMATOLOGY [place] [address] documented as of this encounter Results * CT Chest Abdomen Pelvis w Contrast (Generic) (07/13/2021 5:04 PM EDT) Anatomical Region Laterality Modality Abdomen, Pelvis Computed Tomogra phy Impressions 07/14/2021 2:41 PM EDT 1. ??Grossly stable LEFT lower lobe lung mass with LEFT pleural effusion 2. ??Resolution of previously noted patchy consolidation RIGHT lower lobe. 3. ??Borderline mediastinal and hilar adenopathy. 4. ??Exam otherwise stable Thank you for letting us participate in the care of this patient. ??If you are a health care provider and have any questions regarding this report, please contact the number below. ??For patients who have questions please contact the health memory care program director that requested your imaging first. ? Narrative 07/14/2021 2:41 PM EDT EXAMINATION: CT CHEST ABDOMEN PELVIS W CONTRAST (GENERIC) CLINICAL HISTORY: Metastatic disease evaluation Metastatic urothelial- on immunotherapy - assess treatment response. Compare to scan in Mar 2020 TECHNIQUE: Helical CT of the chest, abdomen, and pelvis was performed following the intravenous administration of contrast. 73 cc of Omnipaque 350. Oral contrast was administered. COMPARISON: 04/08/2021 FINDINGS: Chest: Lungs and large airways: Grossly stable [...] Bladder: Decompressed Vasculature: No aneurysm. Lymph Nodes: ??No enlarged lymph nodes. Bowel: Nondilated, no wall thickening. ?? Peritoneum and mesentery: No ascites, free air, or loculated fluid collection. No mesenteric inflammation. Abdominal wall: Normal. Reproductive organs: Normal. Osseous structures: No suspicious lesions. Procedure Note Kang Ybarra MD - 07/14/2021 EXAMINATION: CT CHEST ABDOMEN PELVIS W CONTRAST (GENERIC) CLINICAL HISTORY: Metastatic disease evaluation Metastatic urothelial- on immunotherapy - assess treatment response.Compare to scan in Mar 2020 TECHNIQUE: Helical CT of the chest, abdomen, and pelvis was performedfollowing the intravenous administration of contrast. 73 cc of Omnipaque 350. Oral contrast was administered. COMPARISON: 04/08/2021 FINDINGS: Chest: Lungs and large airways: Grossly stable 5.3 x 5.8 cm LEFT lower lobe lungmass with heterogeneous enhancement. Resolved patchy areas of airspaceconsolidation in the RIGHT lower lobe. Centrilobular emphysematous disease. Pleura: Grossly stable partially loculated LEFT pleural effusion. Heart/vasculature: No pericardial effusion. The catheter tip in superiorvena cava. Lymph nodes: Borderline enlarged bilateral mediastinal lymph nodes. Mediastinum and danielle: Mildly enlarged pretracheal lymph node measuring 11mm. Borderline subcarinal adenopathy Abdomen/pelvis: Liver: No suspicious hepatic lesions. Focal fatty sparing along thefalciform ligament Bile ducts: Nondilated. Gallbladder: Surgically absent Pancreas: Normal attenuation without ductal dilatation. Spleen: Normal. Adrenals: Normal. Kidneys: As noted previously bilateral percutaneous nephrostomy tubes.Bilateral double-J internal ureteral stents. Symmetric renal enhancement. Nocollecting system obstruction secondary to the nephrostomies. No renal masses Urinary Bladder: Decompressed Vasculature: No aneurysm. Lymph Nodes: No enlarged lymph nodes. Bowel: Nondilated, no wall thickening. Peritoneum and mesentery: No ascites, free air, or loculated fluidcollection. No mesenteric inflammation. Abdominal wall: Normal. Reproductive organs: Normal. Osseous structures: No suspicious lesions. IMPRESSION 1. Grossly stable LEFT lower lobe lung mass with LEFT pleural effusion 2. Resolution of previously noted patchy consolidation RIGHT lowerlobe. 3. Borderline mediastinal and hilar adenopathy. 4. Exam otherwise stable Thank you for letting us participate in the care of this patient. If youare a health care provider and have any questions regarding this report,please contact the number below. For patients who have questions please contactthe health memory care program director that requested your imaging first. Abena Ogden RN IMG CT ORDERABLES * (ABNORMAL) Iron and TIBC (07/13/2021 3:00 PM EDT) Iron 20(L) 30 - 150 mcg/dL [facility] TIBC 199(L) 250 - 450 mcg/dL [facility] Iron Saturation 10(L) 20 - 50 % [facility] Blood 07/13/2021 3:00 PM EDT 07/13/2021 3:12 PM EDT Narrative Resulting Agency Comment Spec In Lab Abena Ogden RN CHEMISTRY ORDERABLES Performing Organization Address City/[facility]/ZIP Co de Phone Number [facility] [place] [address] * (ABNORMAL) Ferritin (07/13/2021 3:00 PM EDT) Ferritin 527(H) 30 - 400 ng/mL [facility] Comment: Pediatric reference ranges not verified at [facility], interpret with caution. Reference ranges for females greater than 50 years of age approach values for men, i.e., 30-400 ng/mL. Blood 07/13/2021 3:00 PM EDT 07/13/2021 3:12 PM EDT Narrative Resulting Agency Comment Spec In Lab Abena Ogden RN CHEMISTRY ORDERABLES Performing Organization Address [facility] Co de Phone Number [facility] [place] [address] documented in this encounter Visit Diagnoses Diagnosis Metastatic urothelial carcinoma Secondary malignant neoplasm of other urinary organs Anemia of chronic disease Anemia of other chronic disease Metastatic urothelial carcinoma Secondary malignant neoplasm of other urinary organs documented in this encounter Care Teams Marketing Admin Relationship Specialty Start Date End Date Eren Shah DNP PCP - General Family Medicine 03/20/21 06/10/22 documented as of this encounter
--- OUTSIDE RECORDS SUMMARY | 2023-11-21 16:00 | XMS_ITS | Encounter Summary ---
Author Organization [facility] [place] [address] Care Team Providers Care Repair Tech Name Role Phone Eren Shah CHELSEA Primary Care Provider [phone] Encounter Details Date Type Department Care Team (Latest Contact Info) Description 04/20/2021 6:27 AM EST - 04/20/2021 11:59 PM [facility] Hospital [place] [phone] Discharge Disposition: Home Social History Tobacco Use [...] Date End Date prochlorperazine (Compazine) 10 mg Tablet Take 1 tablet by mouth every 6 hours as needed for Nausea. 15 tablet 04/18/2021 05/13/2023 docusate sodium (Colace) 100 mg Capsule Take 100 mg by mouth daily. 07/17/2021 ferrous sulfate EC 325 mg (65 mg iron) Tablet, Delayed Release (E.C.) Take 325 mg by mouth every other day. 02/25/2021 01/22/2022 polyethylene glycoL (Miralax) 17 gram/dose Powder DISSOLVE ONE TEASPOONFUL IN WATER AND DRINK THREE TIMES A DAY 03/13/2021 07/17/2021 documented as of this encounter Plan of Treatment Upcoming Encounters Date Type Department Care Team (Late st Contact Info) Description 12/08/2023 3:30 PM EDT Office Visit Hematology/Oncology at [address] [phone] Chase Mckay MD [facility] DR [place] [address] documented as of this encounter Visit Diagnoses Not on filedocumented in this encounter Care Teams Repair Tech Relationship Specialty Start Date End Date Eren Shah DNP PCP - General Family Medicine 03/20/21 06/10/22 documented as of this encounter
--- OUTSIDE RECORDS SUMMARY | 2023-11-21 16:00 | XMS_ITS | Encounter Summary ---
Author Organization [facility] Address [facility] [place] [address] Care Team Providers Care Campus Aide Name Role Phone Eren Shah DNP Primary Care Provider +1 [phone] Encounter Details Date Type Department Care Team (Late st Contact Info) Description 04/26/2021 Telephone Hematology Oncology at [address] [phone] Gay Marshall, RN Social History Tobacco Use Types Packs/Day [...] encounter Miscellaneous Notes * Telephone Encounter - Gay Marshall RN - 04/26/2021 11:23 AM EST Caller: TORITO Kaminski from [facility] on speaker phone with patient. Relationship: A nurse Clarified Two Patient Identifiers: [x] Reason For Call: TORITO Kaminski from [facility] calls on speaker phone with patient to report multiple concerns that she, patient and patient's daughter have (see assessment below). 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 Cough is non-productive but feels like she needs to cough something up. States my lungs hurt. Denies fevers. TORITO Kaminski reports patient to be afebrile with stable vitals today. Reports diminished lung sound is. Patient and VNA nurse, along with daughter all note this is a change in condition especially over the last few days. States that Barb has an appt with palliative care next week and they do not think she can make it with how she is feeling. Patient also states she has a very poor appetite and has not been eating or drinking well. Patient reports that she is dizzy and lightheaded. Also reports that over the past few weeks she is experiencing constipation and/or diarrhea. Pain: Reports soreness where the tubes (bilateral nephrostomy tubes) are put in. This is not new. Review of Systems Related to Reason for Call: System POS NEG Not Applicable Head (ENT /Neuro) [x] [] [] Cardiac [] [x] [] Respiratory [x] [] [] GI [x] [] [] [] [x] [] Musculoskeletal [x] [] [] Integumentary [] [] [x] Mental Health [] [] [x] Disposition/Plan of Care: Dr. Lange and Abena Ogden APRN notified of patient condition/concerns. Agree with recommendation to go to ER for evaluation and treatment. Advised patient that she should go to ER for evaluation. She agrees with this plan and will go via private car, has family to drive her. Patient/Caregiver verbalizes understanding of plan of care: Yes Patient/Caregiver agrees with plan: Yes RN phone call to [facility] Emergency Dept and spoke with TORITO Cisneros with report. documented in this encounter Plan of Treatment Upcoming Encounters Date Type Department Care Team (Late st Contact Info) Description 12/08/2023 3:30 PM EDT Office Visit Hematology/Oncology at [address] [phone] Chase Mckay MD [facility] DR [place] [address] documented as of this encounter Visit Diagnoses Not on filedocumented in this encounter Care Teams Campus Aide Relationship Specialty Start Date End Date Eren Shah DNP PCP - General Family Medicine 03/20/21 06/10/22 documented as of this encounter
--- OUTSIDE RECORDS SUMMARY | 2023-11-21 16:00 | XMS_ITS | Encounter Summary ---
Author Organization [facility] [address] Care Team Providers Care Outside Sales Account Executive Name Role Phone Eren Shah CHELSEA Primary Care Provider +1 [phone] Reason for Visit * Reason Comments Chemotherapy Cycle 5, Day 1 * Treatment/Therapy Plan Authorization (Routine) - Closed Specialty Diagnoses / Procedures Referred By Contac t Referred To Contact Hematology and Oncology Diagnoses Metastatic urothelial carcinoma Abnormal thyroid function test Procedures [id number] Jose Barnhart MD [address] [place] [address] DR [place] [address] Jose Lange MD [address] [place] [address] DR HEM[place]Y [place] [address] Referral ID Status Reason Start Date Expiration Date Visits Re quested Visits Authorized [id number] Closed 04/28/2022 06/24/2023 99 99 Encounter Details Date Type Department Care Team (Late st Contact Info) Description 07/17/2021 10:30 AM EDT Infusion Hematology Oncology at [address] [phone] Metastatic urothelial carcinoma; Abnormal thyroid [...] Progress Notes * Marci Chen RN - 07/17/2021 10:30 AM EDT INFUSION THERAPY ADMINISTRATION NOTES DIAGNOSIS: Urothelial cancer CYCLE #5: Day 1 REASON FOR VISIT: Pembrolizumab SUBJECTIVE: Barb dwyer no complaints. OBJECTIVE: VSS. Weight stable. Seen by provider. Ready to treat. LAB DATA: Done today at [facility], no holds. IV ACCESS: Mediport accessed at [facility] for labs, brisk blood return. Pre administration: Chemotherapy orders independently verified for drug name, route, and dosage per patient's height, weight and BSA by Marci Chen, TORITO and Staff Pharmacist(s). REACTIONS (DESCRIPTION, TIME, INTERVENTION AND EFFECTIVENESS) none ASSESSMENT: Barb Bullard was awake, alert and tolerated treatment well. Port flushed with 20ml of NS and 500 units of heparin and de-accessed after infusion completed. PLAN: Return to clinic in three weeks. documented in this encounter Plan of Treatment Upcoming Encounters Date Type Department Care Team (Late st Contact Info) Description 12/08/2023 3:30 PM EDT Office Visit Hematology/Oncology at [address] [phone] Chase Mckay MD [facility] DR HEMATOLOGY [place] [address] documented as of this encounter Visit Diagnoses [...] 500 Units, Intravenous, ONCE PRN, Starting on Fri07/17/21 at 1104, Until Fri07/17/21 at 1429, Line Care, Refer to Intravenous (IV) Procedure: Accessing Implanted Vascular Access Devices (954) procedure and/or Intravenous (IV) Job Aid: Adult Flushing & Catheter Care (6991) job aid for additional information regarding guidelines and administration., Routine Given 07/17/2021 12:09 PM EDT 500 Units pembrolizumab (Keytruda) 200 mg in sodium chloride 0.9% 108 mL infusion 200 mg, Intravenous, ONCE, 1 dose, On Fri07/17/21 at 1200, Administer over 30 Minutes, Flush line with NS after each dose., This agent is restricted to outpatient use. Is this drug being given as an outpatient? Yes New Bag 07/17/2021 11:31 AM EDT 200 mg 216 mL/hr sodium chloride 0.9 % (flush) (BD PosiFlush Normal Saline 0.9) flush 5-20 mL 5-20 mL, Intravenous, EVERY 1 MIN PRN, Starting on Fri07/17/21 at 1104, Until Fri07/17/21 at 1429, Line Care, Flush pertains to all indwelling lines. Flush per protocol found in the job aid using the link provided on this medication record. Refer to Intravenous (IV) Job Aid: Adult Flushing & Catheter Care (1122) job aid for additional information regarding guidelines and administration., Routine Given 07/17/2021 12:09 PM EDT 20 mLs sodium chloride 0.9% infusion 100 mL/hr, Intravenous, CONTINUOUS, Starting on Fri07/17/21 at 1130, Until Fri07/17/21 at 1429 New Bag 07/17/2021 11:30 AM EDT 100 mL/hr 100 mL/hr documented in this encounter Care Teams Outside Sales Account Executive Relationship Specialty Start Date End Date Eren Shah DNP PCP - General Family Medicine 03/20/21 06/10/22 documented as of this encounter
--- OUTSIDE RECORDS SUMMARY | 2023-11-21 16:00 | XMS_ITS | Encounter Summary ---
[place] [address] Care Team Providers Care Trains Dispatcher Supervisor Name Role Phone Eren Shah DNP Primary Care Provider [phone] Encounter Details Date Type Department Care Team (Latest Contact Info) Description 07/13/2021 2:50 PM EDT Laboratory Appointment Lab [address] [place] [address] Metastatic urothelial carcinoma; Anemia of chronic disease [...] PM EDT Office Visit Hematology/Oncology at [address] [phone] Chase Mckay MD [facility] DR HEMATOLOGY [place] [address] documented as of this encounter Procedures Procedure Name Priority Date/Time Associated Diagnosis Comments HC CREATININE Routine 07/13/2021 3:00 PM EDT Metastatic urothelial carcinoma HC IRON BINDING CAPACITY Routine 07/13/2021 3:00 PM EDT Metastatic urothelial carcinoma Anemia of chronic disease HC FERRITIN, SERUM Routine 07/13/2021 3: 00 PM EDT Metastatic urothelial carcinoma Anemia of chronic disease documented in this encounter Results * (ABNORMAL) Ferritin (07/13/2021 3:00 PM EDT) Ferritin 527(H) 30 - 400 ng/mL [facility] Comment: Pediatric reference ranges not [place] [facility] [place] interpret with caution. Reference ranges for females greater than 50 years of age approach values for men, i.e., 30-400 ng/mL. Blood 07/13/2021 3:00 PM EDT 07/13/2021 3:12 PM EDT Narrative Resulting Agency Comment Spec In Lab Abena Ogden RN CHEMISTRY ORDERABLES Performing Organization Address [facility] Co de Phone Number [facility] [place] [address] * (ABNORMAL) Iron and TIBC (07/13/2021 3:00 PM EDT) Iron 20(L) 30 - 150 mcg/dL [facility] TIBC 199(L) 250 - 450 mcg/dL [facility] Iron Saturation 10(L) 20 - 50 % [facility] Blood 07/13/2021 3:00 PM EDT 07/13/2021 3:12 PM EDT Narrative Resulting Agency Comment Spec In Lab Abena Ogden RN CHEMISTRY ORDERABLES Performing Organization Address [facility] Co de Phone Number [facility] [place] [address] * (ABNORMAL) Creatinine (07/13/2021 3:00 PM EDT) Creatinine 1.54(H) 0.70 - 1.20 mg/dL [facility] Estimated GFR 34(L) >=60 mL/min/1. 73 m?? [facility] Comment: This patient? s estimated glomerular filtration rate (eGFR) is between 34 mL/min/1.73 m2 (patients with less muscle mass) and 39 mL/min/1.73 m2 (patients with more muscle mass) as determined by the CKD-EPI equation. Assessment of eGFR is not appropriate when creatinine concentrations are rapidly changing. For clinical decisions where creatinine clearance will affect therapy, a 24-hour urine creatinine clearance may be advised. Assignment of CKD stage 1 - 5 for patients with an eGFR near the transition point between stages may be based on clinical assessment of muscle mass and symptoms in addition to eGFR. Blood 07/13/2021 3:00 PM EDT 07/13/2021 3:12 PM EDT Narrative Resulting Agency Comment Spec In Lab Abena Ogden RN CHEMISTRY ORDERABLES Performing Organization Address City/[facility]/[place] [address] documented in this encounter Visit Diagnoses Diagnosis Metastatic urothelial carcinoma Secondary malignant neoplasm of other urinary organs Anemia of chronic disease Anemia of other chronic disease documented in this encounter Care Teams Trains Dispatcher Supervisor Relationship Specialty Start Date End Date Eren Shah DNP PCP - General Family Medicine 03/20/21 06/10/22 documented as of this encounter
--- OUTSIDE RECORDS SUMMARY | 2023-11-21 16:00 | XMS_ITS | Encounter Summary ---
Author Organization [facility] [place] [address] Care Team Providers Care Health Club Manager Name Role Phone Eren Shah CHELSEA Primary Care Provider [phone] Reason for Visit * Reason Comments Chemotherapy Cycle 4, Day 1 - Pem brolizumab * Treatment/Therapy Plan Authorization (Routine) - Closed Specialty Diagnoses / Procedures Referred By Contac t Referred To Contact Hematology and Oncology Diagnoses Metastatic urothelial carcinoma Abnormal thyroid function test Procedures [id number] Jose Barnhart MD [address] [place] [address] DR HEMATOLOGY [place] [address] Jose Lange MD [address] [place] [address] DR HEMATOLOGY [place] [address] Referral ID Status Reason Start Date Expiration Date Visits Re quested Visits Authorized [id number] Closed 04/28/2022 06/24/2023 99 99 Encounter Details Date Type Department Care Team (Late st Contact Info) Description 06/26/2021 10:30 AM EST Infusion Hematology Oncology at [address] [phone] Metastatic urothelial carcinoma; Abnormal thyroid [...] Notes * Maria Luz Elise, RN - 06/26/2021 10:30 AM EST INFUSION THERAPY ADMINISTRATION NOTES DIAGNOSIS: Urothelial cancer CYCLE #: Cycle 4, Day 1 - Pembrolizumab REASON FOR VISIT: To receive chemotherapy/immunotherapy. SUBJECTIVE: Barb offers no complaints. OBJECTIVE: VSS. Weight stable. Seen by provider. Ready to treat. LAB DATA: WBC - 9.83, H/H - 10.8/35.2, Plt Ct - 578, ANC - 5.74, Lytes wnl, BUN/Cr - 17/1.3, TSH/Free T4 - 3.25/0.85 IV ACCESS: mediport accessed at [facility] for labs, brisk blood return. Pre administration: Chemotherapy orders independently verified for drug name, route, and dosage per patient's height, weight and BSA by Maria Luz Elise, RN and Staff Pharmacist(s). REACTIONS (DESCRIPTION, TIME, [...] PM EDT Office Visit Hematology/Oncology at [address] [phone] Chase Mckay MD [facility] DR HEMATOLOGY [place] [address] documented as of this encounter Visit Diagnoses [...] 500 Units, Intravenous, ONCE PRN, Starting on Fri06/26/21 at 1144, Until Fri06/26/21 at 1537, Line Care, Refer to Intravenous (IV) Procedure: Accessing Implanted Vascular Access Devices (634) procedure and/or Intravenous (IV) Job Aid: Adult Flushing & Catheter Care (7609) job aid for additional information regarding guidelines and administration., Routine Given 06/26/2021 12:51 PM EST 500 Units pembrolizumab (Keytruda) 200 mg in sodium chloride 0.9% 108 mL infusion 200 mg, Intravenous, ONCE, 1 dose, On Fri06/26/21 at 1215, Administer over 30 Minutes, Flush line with NS after each dose., This agent is restricted to outpatient use. Is this drug being given as an outpatient? Yes New Bag 06/26/2021 12:13 PM EST 200 mg 216 mL/hr sodium chloride 0.9 % (flush) (BD PosiFlush Normal Saline 0.9) flush 5-20 mL 5-20 mL, Intravenous, EVERY 1 MIN PRN, Starting on Fri06/26/21 at 1144, Until Fri06/26/21 at 1537, Line Care, Flush pertains to all indwelling lines. Flush per protocol found in the job aid using the link provided on this medication record. Refer to Intravenous (IV) Job Aid: Adult Flushing & Catheter Care (8174) job aid for additional information regarding guidelines and administration., Routine Given 06/26/2021 12:50 PM EST 20 mLs sodium chloride 0.9% infusion 100 mL/hr, Intravenous, CONTINUOUS, Starting on Fri06/26/21 at 1200, Until Fri06/26/21 at 1537 New Bag 06/26/2021 11:45 AM EST 100 mL/hr 100 mL/hr documented in this encounter Care Teams Health Club Manager Relationship Specialty Start Date End Date Eren Shah DNP PCP - General Family Medicine 03/20/21 06/10/22 documented as of this encounter
--- OUTSIDE RECORDS SUMMARY | 2023-11-21 16:00 | XMS_ITS | Encounter Summary ---
Author Organization [facility] [place] [address] Care Team Providers Care Broach Operator Name Role Phone Eren Shah CHELSEA Primary Care Provider [phone] Reason for Visit * Diagnostic Test (Routine) - Closed Specialty Diagnoses / Procedures Referred By Contac t Referred To Contact Radiology Diagnoses Primary lung adenocarcinoma, left Metastatic urothelial carcinoma Procedures NM PET CT Skull Base to Mid-thigh Jose Lange MD [facility] DR HEMATOLOGY [place] [address] [facility] [place] [address] Referral ID Status Reason Start Date Expiration Date V isits Requested Visits Authorized [id number] Closed Specialty Service Requested 07/17/2021 01/17/2023 1 1 Encounter Details Date Type Department Care Team (Latest Contact Info) Description 08/03/2021 12:39 PM EDT - 08/03/2021 11:59 PM EDT Hospital En[place] [address] Jose Lange MD [facility] DR HEMATOLOGY [place] [address] Discharge Disposition: Home Social History [...] Office Visit Hematology/Oncology at [address] [address] Chase Mckay MD [facility] DR HEMATOLOGY [place] [address] documented as of this encounter Procedures Procedure Name Priority Date/Time Associated Diagnosis Comments NM PET CT SKULL BASE TO MID-THIGH ([facility]) Routine 08/03/2021 2:10 PM EDT Primary lung adenocarcinoma, left Metastatic urothelial carcinoma documented in this encounter Results * NM PET CT Skull Base to Mid-thigh (08/03/2021 2:10 PM EDT) Anatomical Region Laterality Modality Positron Emissio n Tomography (PET) Impressions 08/06/2021 11:05 AM EDT 1. ??Persistent large FDG avid necrotic appearing malignancy in the left lower lobe, slightly decreased in size and not significantly changed in overall intensity. 2. ??Interval increased size of FDG avid left hilar anthony metastasis. 3. ??Other previously seen FDG avid adenopathy in the bilateral mediastinal and right hilar regions is stable to decreased in intensity compared to prior. 4. ??Interval decreased size and intensity of small FDG avid left para-aortic nodes. 5. ??Interval increased size and intensity of multiple small FDG avid bilateral inguinal nodes. 6. ??No new sites of active metastatic disease. 7. ??Resolution of previously seen opacities in the right lower lobe, consistent with a resolving inflammatory process. I have personally reviewed the image(s) and the resident's interpretation and agree with the findings, Ed Barajas MD at 08/06/2021 11:05 AM Thank you for letting us participate in the care of this patient. ??If you are a health care provider and have any questions regarding this report, please contact the number below. ??For patients who have questions please contact the health behavioral health care manager that requested your imaging first. ? Narrative 08/06/2021 11:05 AM EDT EXAMINATION: NM PET CT STANDARD SKULL BASE TO MID-THIGH CLINICAL HISTORY: Urologic cancer, assess treatment response - Include more detail below Restaging of metastatic urothelial carcinoma and primary lung cancer Currently on Pembrolizumab. Status post 5 cycles of chemotherapy. Subsequent treatment evaluation. TECHNIQUE: Following IV injection of 79-afiyli-9-deoxyglucose (FDG) a standard uptake of approximately 60 minutes, a noncontrast CT scan followed by a PET scan were acquired from the base of the skull to mid thighs. The noncontrast CT was used for anatomic localization and photon attenuation correction of the PET scan. Blood glucose level: 83 (mg/dL) FDG dose: 9.4 mCi COMPARISON: CT chest abdomen pelvis from 07/13/2021 FINDINGS: HEAD/NECK: Normal activity in all soft tissue regions of the neck and visualized lower head. Resolution of previously seen small right supraclavicular nodes. Unchanged small FDG avid lymph nodes in the bilateral neck levels 2 and 5 regions, consistent with chronic reactive nodes. CHEST: Persistent large FDG avid necrotic appearing mass in the left lower lobe, slightly decreased in size and not significantly changed in overall intensity. Persistent large peripherally FDG avid loculated left pleural effusion, slightly decreased in size compared to prior. Interval increased size of FDG avid left hilar adenopathy (axial image 77). Interval increased intensity of a small right upper paratracheal node (axial image 55). Other previously seen FDG avid adenopathy in the bilateral mediastinal and right hilar regions remains, but is stable to decreased in intensity compared to prior. Resolution of previously seen FDG avid opacities in the right lower lobe, consistent with a resolving inflammatory process. Right chest port with catheter tip at the cavoatrial junction. ABDOMEN/PELVIS: Small FDG avid lymph nodes in the left periaortic region (axial image 155), decreased in size and intensity compared to prior. Multiple small to borderline-enlarged FDG avid bilateral inguinal nodes, most of which are increased in size and intensity compared to prior. No other adenopathy. No adenopathy. Bilateral nephroureteral stents again noted. SKELETON/EXTREMITIES: Normal activity in all regions of the axial and visualized appendicular skeleton. Procedure Note Ed Barajas MD - 08/06/2021 EXAMINATION: NM PET CT STANDARD SKULL BASE TO MID-THIGH CLINICAL HISTORY: Urologic cancer, assess treatment response - Includemore detail below Restaging of metastatic urothelial carcinoma and primary lung cancer Currently on Pembrolizumab. Status post 5 cycles of chemotherapy.Subsequent treatment evaluation. TECHNIQUE: Following IV injection of 21-kaujmn-5-deoxyglucose (FDG) astandard uptake of approximately 60 minutes, a noncontrast CT scan followed by aPET scan were acquired from the base of the skull to mid thighs. The noncontrast CTwas used for anatomic localization and photon attenuation correction of thePET scan. Blood glucose level: 83 (mg/dL) FDG dose: 9.4 mCi COMPARISON: CT chest abdomen pelvis from 07/13/2021 FINDINGS: HEAD/NECK: Normal activity in all soft tissue regions of the neck and visualizedlower head. Resolution of previously seen small right supraclavicular nodes.Unchanged small FDG avid lymph nodes in the bilateral neck levels 2 and 5 regions, consistent with chronic reactive nodes. CHEST: Persistent large FDG avid necrotic appearing mass in the left lowerlobe, slightly decreased in size and not significantly changed in overallintensity. Persistent large peripherally FDG avid loculated left pleural effusion,slightly decreased in size compared to prior. Interval increased size of FDG avidleft hilar adenopathy (axial image 77). Interval increased intensity of a small right upper paratracheal node(axial image 55). Other previously seen FDG avid adenopathy in the bilateral mediastinal andright hilar regions remains, but is stable to decreased in intensity comparedto prior. Resolution of previously seen FDG avid opacities in the right lowerlobe, consistent with a resolving inflammatory process. Right chest port with catheter tip at the cavoatrial junction. ABDOMEN/PELVIS: Small FDG avid lymph nodes in the left periaortic region (axial [id number]), decreased in size and intensity compared to prior. Multiple small to borderline-enlarged FDG avid bilateral inguinal nodes,most of which are increased in size and intensity compared to prior. No other adenopathy. No adenopathy. Bilateral nephroureteral stents againnoted. SKELETON/EXTREMITIES: Normal activity in all regions of the axial and visualized appendicular skeleton. IMPRESSION 1. Persistent large FDG avid necrotic appearing malignancy in the leftlower lobe, slightly decreased in size and not significantly changed inoverall intensity. 2. Interval increased size of FDG avid left hilar anthony metastasis. 3. Other previously seen FDG avid adenopathy in the bilateral mediastinaland right hilar regions is stable to decreased in intensity compared toprior. 4. Interval decreased size and intensity of small FDG avid leftpara-aortic nodes. 5. Interval increased size and intensity of multiple small FDG avidbilateral inguinal nodes. 6. No new sites of active metastatic disease. 7. Resolution of previously seen opacities in the right lower lobe,consistent with a resolving inflammatory process. I have personally reviewed the image(s) and the resident's interpretationand agree with the findings, Ed Barajas MD at 08/06/2021 11:05 AM Thank you for letting us participate in the care of this patient. If youare a health care provider and have any questions regarding this report,please contact the number below. For patients who have questions please contactthe health behavioral health care manager that requested your imaging first. Jose Lange MD IMG PET ORDERABLES documented in this encounter Visit Diagnoses Not on filedocumented in this encounter Care Teams Broach Operator Relationship Specialty Start Date End Date Eren Shah DNP PCP - General Family Medicine 03/20/21 06/10/22 documented as of this encounter
--- OUTSIDE RECORDS SUMMARY | 2023-11-21 16:00 | XMS_ITS | Encounter Summary ---
Author Organization Formerly [facility], [facility] Address [facility] [place] [address] Care Team Providers Care Ekg/Ecg Technician Name Role Phone Eren Shah CHELSEA Primary Care Provider [phone] Reason for Referral * Diagnostic Test (Routine) - Closed Specialty Diagnoses / Procedures Referred By Contac t Referred To Contact Radiology Diagnoses Primary lung adenocarcinoma, left Metastatic urothelial carcinoma Procedures NM PET CT Skull Base to Mid-thigh Jose Lange MD [facility] HEM[place] [address] [place] [address] Referral ID Status Reason Start Date Expiration Date V isits Requested Visits Authorized [id number] Closed Specialty Service Requested 07/17/2021 01/17/2023 1 1 * Consultation (Routine) - Closed Specialty Diagnoses / Procedures Referred By Contac t Referred To Contact Hematology and Oncology Diagnoses Primary lung adenocarcinoma, left Jose Lange MD [facility] HEMATOLOGY [place] [address] Chase Mckay MD [facility] HEMATOLOGY [place] [address] Referral ID Status Reason Start Date Expiration Date V isits Requested Visits Authorized [id number] Closed Consult, Test & Treat 07/17/2021 07/17/2022 1 1 Reason for Visit * Reason Comments Follow-up Encounter Details Date Type Department Care Team (Late st Contact Info) Description 07/17/2021 10:00 AM EDT Office Visit Hematology/Oncology at [address] [phone] Jose Lange MD [facility] HEMATOLOGY [place] [address] Abena Ogden RN Metastatic urothelial carcinoma (Primary Dx); Primary lung adenocarcinoma, left; Abnormal thyroid function test; Anemia of chronic disease Social History Tobacco [...] Sign Reading Time Taken Comments Blood Pressure 112/81 07/17/2021 10:13 AM EDT Pulse 102 07/17/2021 10:13 AM EDT Temperature 36 ??C (96.8 ??F) 07/17/2021 10:13 AM EDT Respiratory Rate 16 07/17/2021 10:13 AM EDT Oxygen Saturation 98% 07/17/2021 10:13 AM EDT Inhaled Oxygen Concentration - - Weight 61.2 kg (135 lb) 07/17/2021 10:13 AM EDT Height 163.7 cm (5' 4.45) 07/17/2021 10:13 AM E DT Body Mass Index 22.85 07/17/2021 10:13 AM EDT documented in this encounter Progress Notes * Jose Lange MD - 07/17/2021 10:00 AM EDT Images from the original note were not included. Hematology & Medical Oncology [address] [address] Barb returns today to continue [...] distinct lung primary. She was seen by parts counterperson , who recommended rigid bronchoscopy with attempts [...] HTN. She wasdischarged home on 05/01/21 Interval history(07/17/21): Ms. Bullard is in clinic for follow-up of bladder cancer, pembrolizumab infusion and discussion on restaging CT scan.. She is accompanied by her daughter Daisha. Overall she is feeling well today. She had her nephrostomy tubes changed on last Friday. No fevers, chills or signs of infection. She does have home health nurses twice a week. Nephrostomy tubes are draining well. Barb is followed by palliative care Dr. Patel. She is on tramadol for back pain. She had a CT scan and skin rash on her back. Denies any headaches, vision changes, trouble swallowing, cough or diarrhea. She has soft stools- no more than 2 a day. No blood noted in urine. She states her breathing is much better- she goes up and down the stairs without being short of breath. She still has torest frequently but feels she is getting stronger. No other focal complaints today. PMH: No interval changes since last visit 04/26/21-05/01/21 admission to [facility] with pneumonia, Pulmonary hypertension/CHF, BRITNI 04/16/2021 nephrostomy catheter exchange 04/04/21 bronchoscopy and tumor debulking- endobronchial biopsies positive for adenocarcinoma of lung origin Social History: 15-csqp-qdpb smoking history quit 6 years ago, does not drink alcohol, used to liveindependently, but currently moved to her daughters house. Family History: Brother had liver cancer, mother had leukemia, maternal aunt had colon cancer in cousin had bladder cancer Allergies: No Known Allergies Medications: Your Medications Accurate as of July 17, 2021 10:27 AM. If you have any questions, ask [...] axillary nodes normal Neurologic: Normal Vitals BP 112/81 (Patient Position: Sitting) Pulse (!) 102 Temp 36 ??C (96.8 ??F) (Temporal) Resp 16 Ht 163.7 cm (5' 4.45) Wt 61.2 kg (135 lb) SpO2 98% BMI 22.85 kg/m?? Pathology: Molecular pathology KRAS p.G12C c.34G>T [...] The assay was performed according to the dance instructor's ??instructions using Anti-PD-L1 (22C3, pharmDX) antibody. Electronically signed by: ?Herbert Ford MD Verified: ??04/11/2021 8:14 ?? Pathologist Performed at: ??-[facility] Dept. of Pathology, [place], [place] ? Surgical Pathology DIAGNOSIS A - Lung, ??left lower lobe mass, debulking: ?? - Adenocarcinoma, consistent with lung primary. Electronically signed by: ?Sana Dowell MD Verified: ??04/06/2021 11:16 ??Pathologist Performed at: ??-[facility] Dept. of Pathology, [place], [place] DISCUSSION Sections show an invasive, predominantly [...] propria. - No muscularis propria identified. Labs: 07/17/2021 WBC 9.97, hemoglobin 10.9, platelet count [...] 871, BUN 39, creatinine 1.9, calcium 10.3 Imagin07/13/2021 CT chest abdomen pelvis IMPRESSION ?? 1. [...] will proceed with5-th cycle of pembrolizumab today. # Low back pain- She is taking Tramadol 50 mg(1/2) every 12 hours with tylenol in between if needed. She follows with Palliative Care. #Renal insufficiency: Cr 1.4, nephrostomy tubes were changed last Friday. Creatinine 3.0 on admission, today creatinine is 1.3- back to her baseline. She has bilateral nephrostomy tubes. Last exchanged in March 2021. She has a follow up appointment with Dr. Beckwith on July 13. #Pneumonia treated with ceftriaxone and azithromycin and finished course of Levaquin at home. No clinical evidence of infection today. # Anemia- multifactoral. She is unable to tolerate oral iron. Repeat ferritin and iron, TIBC. Plan: 1. Proceed with C5 Pembrolizumab today 2. Next visit with CBC,CMP, TSH, FT4, Ferritin, Iron and TIBC and pembrolizumab in 3 weeks 3. Referral to Dr. Mckay for second opinion 4. PET scan Barb voiced understanding of the plan and was given an opportunity to ask questions which I answered to the best of my ability. Barb understands she can call the clinic between visits with any questions/concerns or new symptoms. Abena Ogden MSN, COOLER TENDER, AOCNP Medical Oncology documented in this encounter Plan of Treatment Upcoming Encounters Date Type Department Care Team (Late st Contact Info) Description 12/08/2023 3:30 PM EDT Office Visit Hematology/Oncology at [address] [phone] Chase Mckay MD [facility] DR HEMATOLOGY [place] [address] Scheduled Referrals Name Type Priority Associated Diagnoses Order Schedule Referral to Hematology and Oncology Outpatient Referral Routine Primary lung adenocarcinoma, left Ordered: 07/17/2021 documented as of this encounter Results * [...] who have questions please contact the health healthcare consultant that requested your imaging first. ? Narrative 08/06/2021 11:05 AM EDT EXAMINATION: NM PET CT STANDARD SKULL BASE TO MID-THIGH CLINICAL HISTORY: Urologic cancer, assess treatment response - Include more detail below Restaging of metastatic urothelial carcinoma and primary lung cancer Currently on Pembrolizumab. Status post 5 cycles of chemotherapy. Subsequent treatment evaluation. TECHNIQUE: Following IV injection of 45-wrqzvv-9-deoxyglucose (FDG) a standard uptake of approximately 60 [...] treatment evaluation. TECHNIQUE: Following IV injection of 66-xdgwnp-1-deoxyglucose (FDG) astandard uptake of approximately 60 minutes, [...] nodes in the left periaortic region (axial [id number]), decreased in size and intensity compared to [...] patients who have questions please contactthe health healthcare consultant that requested your imaging first. Jose Lange MD IMG PET ORDERABLES documented in this encounter Visit Diagnoses Diagnosis Metastatic urothelial carcinoma- Primary Secondary malignant neoplasm of other urinary organs Primary lung adenocarcinoma, left Abnormal thyroid function test Nonspecific abnormal results of thyroid function study Anemia of chronic disease Anemia of other chronic disease Primary lung adenocarcinoma, left Metastatic urothelial carcinoma Secondary malignant neoplasm of other urinary organs documented in this encounter Care Teams Ekg/Ecg Technician Relationship Specialty Start Date End Date Eren Shah DNP PCP - General Family Medicine 03/20/21 06/10/22 documented as of this encounter
--- OUTSIDE RECORDS SUMMARY | 2023-11-21 16:00 | XMS_ITS | Encounter Summary ---
Author Organization [place] [address] Care Team Providers Care Psych Arnp Name Role Phone Eren Shah CHELSEA Primary Care Provider [phone] Reason for Visit * Reason Comments IV Medication Pembrolizumab, C3D1 * Treatment/Therapy Plan Authorization (Routine) - Closed Specialty Diagnoses / Procedures Referred By Contac t Referred To Contact Hematology and Oncology Diagnoses Metastatic urothelial carcinoma Abnormal thyroid function test Procedures [id number] Jose Barnhart MD [address] [place] [address] DR HEMATOLOGY [place] [address] Jose Lange MD [address] [place] [address] DR HEMATOLOGY [place] [address] Referral ID Status Reason Start Date Expiration Date Visits Re quested Visits Authorized [id number] Closed 04/28/2022 06/24/2023 99 99 Encounter Details Date Type Department Care Team (Late st Contact Info) Description 06/05/2021 10:00 AM EST Infusion Hematology Oncology at [address] [phone] Metastatic urothelial carcinoma; Abnormal thyroid [...] of this encounter Progress Notes * Hodan Jean RN - 06/05/2021 10:00 AM EST INFUSION THERAPY ADMINISTRATION NOTES DIAGNOSIS: urothelial CYCLE #:3, Day 1 REASON FOR VISIT: Pembro SUBJECTIVE Barb offers no complaints. OBJECTIVE LAB DATA: 06/05/21 WBC 10.74, Hg 10.7, Plts 608, ANC 6.4, BUN/Cr 21/1.5 IV ACCESS: mediport accessed at [facility] for labs, brisk blood return. Pre administration: Chemotherapy orders independently verified for drug name, route, and dosage per patient's height, weight and BSA by Hodan Jean, RN & onsite pharmacist REACTIONS (DESCRIPTION, TIME, [...] PM EDT Office Visit Hematology/Oncology at [address] [phone] Chase Mckay MD [facility] DR HEMATOLOGY [place] [address] documented as of this encounter Visit Diagnoses [...] 500 Units, Intravenous, ONCE PRN, Starting on Fri06/05/21 at 1016, Until Fri06/05/21 at 1610, Line Care, Refer to Intravenous (IV) Procedure: Accessing Implanted Vascular Access Devices (704) procedure and/or Intravenous (IV) Job Aid: Adult Flushing & Catheter Care (7449) job aid for additional information regarding guidelines and administration., Routine Given 06/05/2021 11:33 AM EST 500 Units pembrolizumab (Keytruda) 200 mg in sodium chloride 0.9% 108 mL infusion 200 mg, Intravenous, ONCE, 1 dose, On Fri06/05/21 at 1145, Administer over 30 Minutes, Flush line with NS after each dose., This agent is restricted to outpatient use. Is this drug being given as an outpatient? Yes New Bag 06/05/2021 10:52 AM EST 200 mg 216 mL/hr sodium chloride 0.9 % (flush) (BD PosiFlush Normal Saline 0.9) flush 5-20 mL 5-20 mL, Intravenous, EVERY 1 MIN PRN, Starting on Fri06/05/21 at 1016, Until Fri06/05/21 at 1610, Line Care, Flush pertains to all indwelling lines. Flush per protocol found in the job aid using the link provided on this medication record. Refer to Intravenous (IV) Job Aid: Adult Flushing & Catheter Care (6420) job aid for additional information regarding guidelines and administration., Routine Given 06/05/2021 11:32 AM EST 20 mLs sodium chloride 0.9% infusion 100 mL/hr, Intravenous, CONTINUOUS, Starting on 06/05/21 at 1045, Until Fri06/05/21 at 1610 New Bag 06/05/2021 10:52 AM EST 100 mL/hr 100 mL/hr documented in this encounter Care Teams Psych Arnp Relationship Specialty Start Date End Date Eren Shah DNP PCP - General Family Medicine 03/20/21 06/10/22 documented as of this encounter
--- OUTSIDE RECORDS SUMMARY | 2023-11-21 16:00 | XMS_ITS | Encounter Summary ---
[place] [address] Care Team Providers Care Bottle Labeler Name Role Phone Eren Shah CHELSEA Primary Care Provider [phone] Reason for Referral * Diagnostic Test (Routine) - Closed Specialty Diagnoses / Procedures Referred By Contac t Referred To Contact Radiology Diagnoses Metastatic urothelial carcinoma Procedures CT Chest Abdomen Pelvis w Contrast (Generic) Abena Ogden RN [address] [place] [address] [place] [address] [facility] [place] [address] Referral ID Status Reason Start Date Expiration Date V isits Requested Visits Authorized [id number] Closed Specialty Service Requested 06/26/2021 12/27/2022 1 1 Reason for Visit * Diagnostic Test (Routine) - Closed Specialty Diagnoses / Procedures Referred By Contac t Referred To Contact Radiology Diagnoses Metastatic urothelial carcinoma Procedures CT Chest Abdomen Pelvis w Contrast (Generic) Abena Ogden RN [address] [place] [address] [place] [address] [facility] [place] [address] Referral ID Status Reason Start Date Expiration Date V isits Requested Visits Authorized [id number] Closed Specialty Service Requested 06/26/2021 12/27/2022 1 1 Encounter Details Date Type Department Care Team (Latest Contact Info) Description 07/13/2021 2:29 PM EDT - 07/13/2021 11:59 PM EDT Hospital En[place] [address] Abena Ogden RN Metastatic urothelial carcinoma Discharge Disposition: Home Social [...] Dispensed Refills Start Date End Date traMADoL (Ultram) 50 mg TabletIndications:Met astatic urothelial carcinoma START WITH 1/2 TABLET BY MOUTH EVERY 6 HOURS NEEDED FOR PAIN - MAY INCREASE DOSE TO 1 TABLET EVERY 6 HOURS NEEDED FOR PAIN 30 tablet 06/20/2021 07/17/2021 furosemide (Lasix) 20 mg Tablet TAKE 1 TABLET BY MOUTH EVERY DAY WITH MEALS 05/01/2021 07/17/2021 potassium chloride ER (Klor-con) 10 mEq Tab Sust.Rel. Particle/CrystalIndic ations:Metastatic urothelial carcinoma Take 1 tablet by mouth daily. 15 tablet 05/09/2021 07/17/2021 prochlorperazine (Compazine) 10 mg Tablet Take 1 [...] Office Visit Hematology/Oncology at [address] [phone] Chase Mckay MD [facility] [place] [address] documented as of this encounter Procedures Procedure Name Priority Date/Time Associated Diagnosis Comments CT CHEST ABDOMEN PELVIS W CONTRAST (GENERIC) Routine 07/13/2021 5:04 PM EDT Metastatic urothelial carcinoma documented in this encounter Results * CT Chest Abdomen [...] who have questions please contact the health home health care social worker that requested your imaging first. ? Narrative [...] patients who have questions please contactthe health home health care social worker that requested your imaging first. Electronically signed by: Kang Ybarra MD, Radiology [facility]([phone]), at 07/14/2021 2:41 PM Abena Ogden RN IMG CT ORDERABLES documented in this encounter Visit Diagnoses Diagnosis Metastatic urothelial carcinoma Secondary malignant neoplasm of other urinary organs documented in this encounter Administered Medications Inactive Administered Medications - up to 3 most recent administrations Medication Order MAR Action Action Date Dose Rate Site iodixanoL (Visipaque) (320 mg/mL) injection solution 0-200 mL 0-200 mL, Intravenous, ONCE PRN, 1 dose, Starting on Fri07/13/21 at 1631, Until Fri07/13/21 at 1631, Per Protocol, Radiology Contrast, Routine Given 07/13/2021 4:31 PM EDT 73 mLs iohexoL (Omnipaque) (350 mg/mL) solution 0-50 mL 0-50 mL, Oral, ONCE PRN, 1 dose, Starting on Fri07/13/21 at 1631, Until 07/13/21 at 1631, Per Protocol, Warning Vesicant/Irritant Medication , Radiology Contrast, Routine Given 07/13/2021 4:31 PM EDT 50 mLs documented in this encounter Care Teams Bottle Labeler Relationship Specialty Start Date End Date Eren Shah DNP PCP - General Family Medicine 03/20/21 06/10/22 documented as of this encounter
--- OUTSIDE RECORDS SUMMARY | 2023-11-21 16:00 | XMS_ITS | Encounter Summary ---
Author Organization [facility] Address [facility] [place] [address] Care Team Providers Care Patient'S Librarian Name Role Phone Eren Shah CHELSEA Primary Care Provider [phone] Reason for Visit * Reason Onset Date Comments Follow-up 04/30/2021 pt admitted to [facility] for pneumonia , BRITNI Encounter Details Date Type Department Care Team (Late st Contact Info) Description 04/30/2021 Telephone Hematology/Oncology at [address] [phone] Pamella East, TORITO Follow-up (pt admitted to [facility] for pneumonia , BRITNI) Social History Tobacco Use Types Packs/Day Years [...] Telephone Encounter - Pamella East RN - 04/30/2021 3:50 PM EST Spoke with bobo pt's nurse at [facility] where pt was admitted on 04/26/21. She was admitted with pneumonia and BRITNI. She is doing better and they say they will be sending her home later today or tomorrow. She already had VNA in place so this will stay in place. Requested ER notes labs and reports. Providers updated documented in this encounter Plan of Treatment Upcoming Encounters Date Type Department Care Team (Late st Contact Info) Description 12/08/2023 3:30 PM EDT Office Visit Hematology/Oncology at [address] [phone] Chase Mckay MD [facility] DR [place] [address] documented as of this encounter Visit Diagnoses Not on filedocumented in this encounter Care Teams Patient'S Librarian Relationship Specialty Start Date End Date Eren Shah DNP PCP - General Family Medicine 03/20/21 06/10/22 documented as of this encounter
--- OUTSIDE RECORDS SUMMARY | 2023-11-21 16:00 | XMS_ITS | Encounter Summary ---
Author Organization [facility] Address [facility] [place] [address] Care Team Providers Care Automobile Service Writer Name Role Phone Eren Shah DNP Primary Care Provider Encounter Details Date Type Department Care Team (Late st Contact Info) Description 09/18/2021 9:30 AM EDT Office Visit Hematology/Oncology at [address] [phone] Jose Lange MD [facility] DR [place] [address] Abena Ogden, RN Urinary tract infection associated with nephrostomy catheter, initial encounter (Primary Dx); Metastatic urothelial carcinoma; Abnormal thyroid function test; Primary lung adenocarcinoma, left Social History Tobacco [...] Sign Reading Time Taken Comments Blood Pressure 144/83 09/18/2021 9:24 AM EDT Pulse 86 09/18/2021 9:24 AM EDT Temperature 35.6 ??C (96 ??F) 09/18/2021 9:24 AM EDT Respiratory Rate 16 09/18/2021 9:24 AM EDT Oxygen Saturation 100% 09/18/2021 9:24 AM EDT Inhaled Oxygen Concentration - - Weight 59.9 kg (132 lb) 09/18/2021 9:24 AM EDT Height 163.8 cm (5' 4.49) 09/18/2021 9:24 AM ED T Body Mass Index 22.32 09/18/2021 9:24 AM EDT documented in this encounter Progress Notes * Jose Lange MD - 09/18/2021 9:30 AM EDT Images from the original note were not included. Hematology & Medical Oncology [address] [address] Barb returns today to continue [...] distinct lung primary. She was seen by housing installer , who recommended rigid bronchoscopy withattempts to [...] HTN. She wasdischarged home on 05/01/21 Interval history(09/18/21): Ms. Bullard is in clinic for follow-up of bladder cancer and pembrolizumabinfusion. Complains of frequent urge to urinate and flank pain/discomfort. The symptoms started about 2 days ago denies any headaches, vision changes, trouble swallowing, cough or diarrhea. Bowel move ments are regular. Intermittently blood-tinged urine in nephrostomy bag.. She states her breathing is much better- she goes up and down the stairs without being short of breath.o other focal complaints today. PMH: No interval changes since last visit 04/26/21-05/01/21 admission to [facility] with pneumonia, Pulmonary hypertension/CHF, BRITNI 04/16/2021 nephrostomy catheter exchange 04/04/21 bronchoscopy and tumor debulking- endobronchial biopsies positive for adenocarcinoma of lung origin Social History: 21-ocro-vost smoking history quit 6 years ago, does not drink alcohol, used to liveindependently, but currently moved to her daughters house. Family History: Brother had liver cancer, mother had leukemia, maternal aunt had colon cancer in cousin had bladder cancer Allergies: No Known Allergies Medications: Your Medications Accurate as of September 18, 2021 9:41 AM. If you have any questions, ask [...] axillary nodes normal Neurologic: Normal Vitals BP 144/83 (Patient Position: Sitting) Pulse 86 Temp 35.6 ??C (96 ??F) (Temporal) Resp 16 Ht 163.8 cm (5' 4.49) Wt 59.9 kg (132 lb) SpO2 100% BMI 22.32 kg/m?? Pathology: Molecular pathology KRAS p.G12C c.34G>T [...] The assay was performed according to the lead setter's ??instructions using Anti-PD-L1 (22C3, pharmDX) antibody. Electronically signed by: ?Herbert Ford MD Verified: ??04/11/2021 8:14 ?? Pathologist Performed at: ??-[facility] Dept. of Pathology, [place], [place] ? Surgical Pathology DIAGNOSIS A - Lung, ??left lower lobe mass, debulking: ?? - Adenocarcinoma, consistent with lung primary. Electronically signed by: ?Sana Dowell MD Verified: ??04/06/2021 11:16 ??Pathologist Performed at: ??-[facility] Dept. of Pathology, [place], [place] DISCUSSION Sections show an invasive, predominantly [...] propria. - No muscularis propria identified. Labs: 09/18/2021 WBC 10.35, hemoglobin 11.2, platelet count [...] presumably metastatic urothelial carcinoma which include [place] based chemotherapy versus immunotherapy. Due to her [...] We will continue current management with pembrolizumab 09/18/21 Barb is cycle 8 of pembrolizumab no notable side effects of pembrolizumab with exception of mild skin rash, which is fading we will continue pembrolizumab. Tentative plan to restage her withPET scan upon completion of 10 cycles of pembrolizumab treatment Complaints of discomfort in the right flank and urge to urinate. We will do a urine analysis with reflex. I will send prescription for ciprofloxacin 500 twice daily for 10 days She was seen by Dr. Mckay lwith recommendation of continuation pembrolizumab and consideration of KRAS inhibitor as a second line treatment of lung cancer. # Low back pain- She is taking Tramadol 50 mg(1/2) every 12 hours with tylenol in between if needed. She follows with Palliative Care. #Renal insufficiency: Cr 1.5, Creatinine 3.0 on [...] and iron, TIBC. Plan: 1. Proceed with C8 Pembrolizumab today 2. Ciprofloxacin 500 mg twice daily 3. Next visit with CBC,CMP, TSH, FT4 [...] PM EDT Office Visit Hematology/Oncology at [address] [phone] Chase Mckay MD [facility] DR [place] [address] documented as of this encounter Visit Diagnoses Diagnosis Urinary tract infection associated with nephrostomy catheter, initial encounter- Primary Metastatic urothelial carcinoma Secondary malignant neoplasm of other urinary organs Abnormal thyroid function test Nonspecific abnormal results of thyroid function study Primary lung adenocarcinoma, left documented in this encounter Care Teams Automobile Service Writer Relationship Specialty Start Date End Date Eren Shah DNP PCP - General Family Medicine 03/20/21 06/10/22 documented as of this encounter
--- OUTSIDE RECORDS SUMMARY | 2023-11-21 16:00 | XMS_ITS | Encounter Summary ---
Author Organization [facility] Address [facility] [place] [address] Care Team Providers Care Terrapin Fisher Name Role Phone Eren Shah CHELSEA Primary Care Provider +[phone] Reason for Visit * Reason Comments Follow-up Encounter Details Date Type Department Care Team (Late st Contact Info) Description 08/07/2021 9:00 AM EDT Office Visit Hematology/Oncology at [address] [phone] Jose Lange MD [facility] DR HEMATOLOGY [place] [address] Abena Ogden, RN Metastatic urothelial carcinoma; 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; Anemia of chronic disease; Abnormal thyroid function test Social History Tobacco [...] Sign Reading Time Taken Comments Blood Pressure 132/78 08/07/2021 9:03 AM EDT Pulse 88 08/07/2021 9:03 AM EDT Temperature 36.5 ??C (97.7 ??F) 08/07/2021 9:03 AM ED T Respiratory Rate 20 08/07/2021 9:03 AM EDT Oxygen Saturation 97% 08/07/2021 9:03 AM EDT Inhaled Oxygen Concentration - - Weight 63.3 kg (139 lb 9.6 oz) 08/07/2021 9:03 A M EDT Height 164 cm (5' 4.57) 08/07/2021 9:03 AM EDT Body Mass Index 23.54 08/07/2021 9:03 AM EDT documented in this encounter Progress Notes * Jose Lange MD - 08/07/2021 9:00 AM EDT Images from the original note were not included. Hematology & Medical Oncology [address] [phone] Barb returns today to continue treatment for [...] distinct lung primary. She was seen by divine healer , who recommended rigid bronchoscopy withattempts to [...] HTN. She wasdischarged home on 05/01/21 Interval history(08/07/21): Ms. Bullard is in clinic for follow-up of bladder cancer, pembrolizumab infusion and discussion on restaging PET scan.. She is accompanied by her daughter Daisha. Overall she is feeling well today. She has more energy. No pain. Denies any headaches, vision changes, trouble swallowing, cough or diarrhea. She has soft stools- no more than 2 a day. No blood noted in urine.She states her breathing is much better- she goes up and down the stairs without being short of breath.o other focal complaints today. She had appointment with Dr. Mckay on August 03. PMH: No interval changes since last visit 04/26/21-05/01/21 admission to [facility] with pneumonia, Pulmonary hypertension/CHF, BRITNI 04/16/2021 nephrostomy catheter exchange 04/04/21 bronchoscopy and tumor debulking- endobronchial biopsies positive for adenocarcinoma of lung origin Social History: 56-axkw-[id number] smoking history quit 6 years ago, does not drink alcohol, used to liveindependently, but currently moved to her daughters house. Family History: Brother had liver cancer, mother had leukemia, maternal aunt had colon cancer in cousin had bladder cancer Allergies: No Known Allergies Medications: Your Medications Accurate as of August 07, 2021 9:06 AM. If you have any questions, ask [...] axillary nodes normal Neurologic: Normal Vitals BP 132/78 (Patient Position: Sitting) Pulse 88 Temp 36.5 ??C (97.7 ??F) (Temporal) Resp 20 Ht 164 cm (5' 4.57) Wt 63.3 kg (139 lb 9.6 oz) SpO2 97% BMI 23.54 kg/m?? Pathology: Molecular pathology KRAS p.G12C c.34G>T [...] was performed according to the food service kitchen supervisor's ??instructions using Anti-PD-L1 (22C3, pharmDX) antibody. Electronically signed by: ?Herbert Ford MD Verified: ??04/11/2021 8:14 ?? Pathologist Performed at: ??-[facility] Dept. of Pathology, [place], [place] ? Surgical Pathology DIAGNOSIS A - Lung, ??left lower lobe mass, debulking: ?? - Adenocarcinoma, consistent with lung primary. Electronically signed by: ?Sana Dowell MD Verified: ??04/06/2021 11:16 ??Pathologist Performed at: ??-[facility] Dept. of Pathology, [facility], [place], [place] DISCUSSION Sections show an invasive, predominantly [...] propria. - No muscularis propria identified. Labs: 08/07/21 iron, TIBC, ferritin are pending BUN 26, creatinine 1.4, calcium 9.6, TB [...] of presumably metastatic urothelial carcinoma which include chicken ranch based chemotherapy versus immunotherapy. Due to her [...] We will continue current management with pembrolizumab She was seen by Dr. Mckay last week with recommendation of continuation pembrolizumab and consideration of [...] today 2. 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
--- OUTSIDE RECORDS SUMMARY | 2023-11-21 16:00 | XMS_ITS | Encounter Summary ---
Author Organization [facility] [place] [address] Care Team Providers Care Firer Powerhouse Name Role Phone Eren Shah CHELSEA Primary Care Provider [phone] Reason for Visit * Reason Comments Chemotherapy Cycle 6 Day 1 Pembro lizumab * Treatment/Therapy Plan Authorization (Routine) - Closed Specialty Diagnoses / Procedures Referred By Contac t Referred To Contact Hematology and Oncology Diagnoses Metastatic urothelial carcinoma Abnormal thyroid function test Procedures [id number] Jose Barnhart MD [address] [place] [address] DR HEMATOLOGY [place] [address] Jose Lange MD [address] [place] [address] DR HEMATOLOGY [place] [address] Referral ID Status Reason Start Date Expiration Date Visits Re quested Visits Authorized [id number] Closed 04/28/2022 06/24/2023 99 99 Encounter Details Date Type Department Care Team (Late st Contact Info) Description 08/07/2021 9:30 AM EDT Infusion Hematology Oncology at [address] [phone] Metastatic urothelial carcinoma; Abnormal thyroid [...] of this encounter Progress Notes * Margarita Watson, RN - 08/07/2021 9:30 AM EDT INFUSION THERAPY ADMINISTRATION NOTES DIAGNOSIS: Urothelial cancer CYCLE #6: Day 1 REASON FOR VISIT: Pembrolizumab SUBJECTIVE: Barb dwyer no complaints. OBJECTIVE: VSS. Weight stable. Seen by provider. Ready to treat. LAB DATA: WBC 9.99, HGB 10.9, HCT 35.8, PLT 541, ANC 6.03, BUN26, Cr 1.4, TSH 3.98, FT4 0.79 IV ACCESS: Mediport accessed at [facility] for labs, brisk blood return. Pre administration: Chemotherapy orders independently verified for drug name, route, and dosage per patient's height, weight and BSA by Margarita Watson, TORITO and Staff Pharmacist(s). REACTIONS (DESCRIPTION, TIME, [...] PM EDT Office Visit Hematology/Oncology at [address] [phone] Chase Mckay MD [facility] DR [place] [address] documented as of this encounter [...] 500 Units, Intravenous, ONCE PRN, Starting on Fri08/07/21 at 0926, Until Fri08/07/21 at 1244, Line Care, Refer to Intravenous (IV) Procedure: Accessing Implanted Vascular Access Devices (118) procedure and/or Intravenous (IV) Job Aid: Adult Flushing & Catheter Care (7397) job aid for additional information regarding guidelines and administration., Routine Given 08/07/2021 10:38 AM EDT 500 Units pembrolizumab (Keytruda) 200 mg in sodium chloride 0.9% 108 mL infusion 200 mg, Intravenous, ONCE, 1 dose, On Fri08/07/21 at 1045, Administer over 30 Minutes, Flush line with NS after each dose., This agent is restricted to outpatient use. Is this drug being given as an outpatient? Yes New Bag 08/07/2021 10:08 AM EDT 200 mg 216 mL/hr sodium chloride 0.9 % (flush) (BD PosiFlush Normal Saline 0.9) flush 5-20 mL 5-20 mL, Intravenous, EVERY 1 MIN PRN, Starting on Fri08/07/21 at 0926, Until Tu08/07/21 at 1244, Line Care, Flush pertains to all indwelling lines. Flush per protocol found in the job aid using the link provided on this medication record. Refer to Intravenous (IV) Job Aid: Adult Flushing & Catheter Care (2119) job aid for additional information regarding guidelines and administration., Routine Given 08/07/2021 10:38 AM EDT 20 mLs documented in this encounter Care Teams Firer Powerhouse Relationship Specialty Start Date End Date Eren Shah DNP PCP - General Family Medicine 03/20/21 06/10/22 documented as of this encounter
--- OUTSIDE RECORDS SUMMARY | 2023-11-21 16:00 | XMS_ITS | Encounter Summary ---
Author Organization [facility] Address [facility] [place] [address] Care Team Providers Care Tension Worker Name Role Phone Eren Shah DNP Primary Care Provider [phone] Encounter Details Date Type Department Care Team (Late st Contact Info) Description 07/20/2021 Orders Only Hematology [place] [phone] Jose Lange MD [facility] DR [place] [address] Anemia of chronic disease (Primary Dx) Social History Tobacco Use Types Packs/Day Years [...] PM EDT Office Visit Hematology/Oncology at [address] [phone] Chase Mckay MD [facility] DR [place] [address] documented as of this encounter Visit Diagnoses Diagnosis Anemia of chronic disease- Primary Anemia of other chronic disease documented in this encounter Care Teams Tension Worker Relationship Specialty Start Date End Date Eren Shah DNP PCP - General Family Medicine 03/20/21 06/10/22 documented as of this encounter
--- OUTSIDE RECORDS SUMMARY | 2023-11-21 16:00 | XMS_ITS | Encounter Summary ---
Author Organization [facility] Address [facility] [place] [address] Care Team Providers Care Garbage Man Name Role Phone Eren Shah DNP Primary Care Provider [phone] Encounter Details Date Type Department Care Team (Late st Contact Info) Description 07/17/2021 Refill Hematology/Oncology at [address] [phone] Jose Lange MD [facility] DR [place] [address] Metastatic urothelial carcinoma Social History Tobacco Use [...] 3:30 PM EDT Office Visit Hematology/Oncology at [address] [phone] Chase Mckay MD [facility] DR [place] [address] documented as of this encounter Visit Diagnoses Diagnosis Metastatic urothelial carcinoma Secondary malignant neoplasm of other urinary organs documented in this encounter Care Teams Garbage Man Relationship Specialty Start Date End Date Eren Shah DNP PCP - General Family Medicine 03/20/21 06/10/22 documented as of this encounter
--- OUTSIDE RECORDS SUMMARY | 2023-11-21 16:00 | XMS_ITS | Encounter Summary ---
Author Organization [facility] [place] [address] Care Team Providers Care Immigration Inspector Name Role Phone Eren Shah CHELSEA Primary Care Provider [phone] Reason for Visit * Reason Comments Chemotherapy C8D1 Pembrolizumab * Treatment/Therapy Plan Authorization (Routine) - Closed Specialty Diagnoses / Procedures Referred By Contac t Referred To Contact Hematology and Oncology Diagnoses Metastatic urothelial carcinoma Abnormal thyroid function test Procedures [id number] Jose Barnhart MD [address] [place] [address] [place] [address] Jose Lange MD [address] [place] [address] [place] [address] Referral ID Status Reason Start Date Expiration Date Visits Re quested Visits Authorized [id number] Closed 04/28/2022 06/24/2023 99 99 Encounter Details Date Type Department Care Team (Late st Contact Info) Description 09/18/2021 10:00 AM EDT Infusion Hematology Oncology at [address] [phone] Metastatic urothelial carcinoma; Abnormal thyroid [...] Progress Notes * Hodan Jean RN - 09/18/2021 10:00 AM EDT INFUSION THERAPY ADMINISTRATION NOTES DIAGNOSIS: Urothelial cancer CYCLE #8: Day 1 REASON FOR VISIT: Pembrolizumab SUBJECTIVE: Barb offers no complaints. OBJECTIVE: VSS. Weight stable. Seen by provider. Ready to treat. LAB DATA: WBC 10.35, HGB 11.2, HCT 36.7, PLT- 565, ANC 6.67, BUN 21, Cr 1.5, TSH 5.55, FT4 0.88 IV ACCESS: Mediport accessed at [facility] for labs, brisk blood return. Pre administration: Chemotherapy orders independently verified for drug name, route, and dosage per patient's height, weight and BSA by Hodan Jean, TORITO and Staff Pharmacist(s). REACTIONS (DESCRIPTION, TIME, [...] PM EDT Office Visit Hematology/Oncology at [address] [phone] Chase Mckay MD [facility] DR HEMATOLOGY [place] [address] documented as of this encounter [...] 500 Units, Intravenous, ONCE PRN, Starting on Fri09/18/21 at 0959, Until Fri09/18/21 at 1347, Line Care, Refer to Intravenous (IV) Procedure: Accessing Implanted Vascular Access Devices (334) procedure and/or Intravenous (IV) Job Aid: Adult Flushing & Catheter Care (1111) job aid for additional information regarding guidelines and administration., Routine Given 09/18/2021 11:21 AM EDT 500 Units pembrolizumab (Keytruda) 200 mg in sodium chloride 0.9% 108 mL infusion 200 mg, Intravenous, ONCE, 1 dose, On Fri09/18/21 at 1115, Administer over 30 Minutes, Flush line with NS after each dose., This agent is restricted to outpatient use. Is this drug being given as an outpatient? Yes New Bag 09/18/2021 10:47 AM EDT 200 mg 216 mL/hr sodium chloride 0.9 % (flush) (BD PosiFlush Normal Saline 0.9) flush 5-20 mL 5-20 mL, Intravenous, EVERY 1 MIN PRN, Starting on Fri09/18/21 at 0959, Until Fri09/18/21 at 1347, Line Care, Flush pertains to all indwelling lines. Flush per protocol found in the job aid using the link provided on this medication record. Refer to Intravenous (IV) Job Aid: Adult Flushing & Catheter Care (4985) job aid for additional information regarding guidelines and administration., Routine Given 09/18/2021 11:21 AM EDT 20 mLs sodium chloride 0.9% infusion 100 mL/hr, Intravenous, CONTINUOUS, Starting on Fri09/18/21 at 1015, Until Fri09/18/21 at 1347 New Bag 09/18/2021 10:20 AM EDT 100 mL/hr 100 mL/hr documented in this encounter Care Teams Immigration Inspector Relationship Specialty Start Date End Date Eren Shah DNP PCP - General Family Medicine 03/20/21 06/10/22 documented as of this encounter
--- OUTSIDE RECORDS SUMMARY | 2023-11-21 16:00 | XMS_ITS | Encounter Summary ---
Author Organization [facility] Address [facility] [place] [address] Care Team Providers Care Supervisor Drying And Softening Name Role Phone Eren Shah DNP Primary Care Provider Encounter Details Date Type Department Care Team (Late st Contact Info) Description 06/05/2021 9:30 AM EST Office Visit Hematology/Oncology at [address] [phone] Abena Ogden, RN Metastatic urothelial [...] Sign Reading Time Taken Comments Blood Pressure 101/64 06/05/2021 9:36 AM EST Pulse 51 06/05/2021 9:36 AM EST Temperature 36.2 ??C (97.1 ??F) 06/05/2021 9:36 AM ES T Respiratory Rate 18 06/05/2021 9:36 AM EST Oxygen Saturation 100% 06/05/2021 9:36 AM EST Inhaled Oxygen Concentration - - Weight 63 kg (139 lb) 06/05/2021 9:36 AM EST Height 163.8 cm (5' 4.49) 06/05/2021 9:36 AM ES T Body Mass Index 23.5 06/05/2021 9:36 AM EST documented in this encounter Progress Notes * Abena Ogden, ALESSANDRO - 06/05/2021 9:30 AM EST Images from the original note were not included. Hematology & Medical Oncology [address] [phone] Barb returns today to continue treatment for [...] distinct lung primary. She was seen by crabber , who recommended rigid bronchoscopy with attempts [...] HTN. She wasdischarged home on 05/01/21 Interval history(06/05/21): Ms. Bullard is in clinic for follow-up [...] states it helps her sleep at night. No rash but she does have itchy skin. Denies any headaches, vision changes, trouble swallowing, cough or diarrhea. She has soft stools- no more than 2 a day. No blood noted in urine. No other focal complaintstoday. PMH: 04/26/21-05/01/21 admission to [facility] with pneumonia, Pulmonary hypertension/CHF, BRITNI 04/16/2021 nephrostomy catheter exchange 04/04/21 bronchoscopy and tumor debulking- endobronchial biopsies positive for adenocarcinoma of lung origin Social History: 56-yuxd-cwzi smoking history quit 6 years ago, does not drink alcohol, used to liveindependently, but currently moved to her daughters house. Family History: Brother had liver cancer, mother had leukemia, maternal aunt had colon cancer in cousin had bladder cancer Allergies: No Known Allergies Medications: Your Medications Accurate as of June 05, 2021 9:46 AM. If you have any questions, ask [...] mg Tab Commonly known as: Ultram Take 0.5 tablets by mouth every 6 hours as needed for Pain. Start with 1/2 a tablet - may increase dose to 1 tablet every 6 hours if needed for pain 25 mg Quantity: 30 tablet Refills: 0 Review [...] axillary nodes normal Neurologic: Normal Vitals BP 101/64 (Patient Position: Sitting) Pulse 51 Temp 36.2 ??C (97.1 ??F) (Temporal) Resp 18 Ht 163.8 cm (5' 4.49) Wt 63 kg (139 lb) SpO2 100% BMI 23.50 kg/m?? Pathology: 04/04/21 ADDENDUM DISCUSSION PD-L1 Immunohistochemistry [...] The assay was performed according to the manager transfusion's ??instructions using Anti-PD-L1 (22C3, pharmDX) antibody. Electronically signed by: ?Herbert Ford MD Verified: ??04/11/2021 8:14 ?? Pathologist Performed at: ??-[facility] [place] [place] Dept. of Pathology, [place], [place] ? Surgical Pathology DIAGNOSIS A - Lung, ??left lower lobe mass, debulking: ?? - Adenocarcinoma, consistent with lung primary. Electronically signed by: ?Sana Dowell MD Verified: ??04/06/2021 11:16 ??Pathologist Performed at: ??-[facility] [place] [place] Dept. of Pathology, [facility], [place], [place] DISCUSSION Sections show an invasive, predominantly [...] propria. - No muscularis propria identified. Labs: 06/05/21- WBC-10.74 Hgb/Hct-10.7/35.9 Plt-608 ANC-6.44 Na-140 K+-3.6 [...] of presumably metastatic urothelial carcinoma which include sitka based chemotherapy versus immunotherapy. Due to her [...] Cr is back to her baseline of 1.5 She wants to continue her current palliative immunotherapy. We will proceed with third cycle of pembrolizumab today. # Low back pain- She is taking Tramadol 50 mg(1/2) every 12 hours with tylenol in between if needed. She follows with Palliative Care. #Renal insufficiency: Creatinine 3.0 on admission, today creatinine is 1.5- back to her baseline. She has bilateral nephrostomy tubes. Last exchanged in March 2021. She has a follow up appointmentwith Dr. Beckwith on Friday06/08/21 at 1pm. #Pneumonia treated with ceftriaxone and azithromycin and finished course of Levaquin at home. No clinical evidence of infection today. Plan: 1. Proceed with C3 Pembrolizumab today 2. Next visit with CBC,CMP, TSH, FT4 and pembrolizumab in 3 weeks 3. Follow up appointment on Friday at 1pm with Dr. Beckwith. Barb voiced understanding of the plan and was given an opportunity to ask questions which I answered to the best of my ability. Barb understands she can call the clinic between visits with any questions/concerns or new symptoms. Abena Ogden MSN, DIGITAL ADVISOR, AOCNP Medical Oncology documented in this encounter Plan of Treatment Upcoming Encounters Date Type Department Care Team (Late st Contact Info) Description 12/08/2023 3:30 PM EDT Office Visit Hematology/Oncology at [address] [phone] [facility] DR [place] [address] documented as of this encounter Visit Diagnoses Diagnosis Metastatic urothelial carcinoma Secondary malignant neoplasm of other urinary organs documented in this encounter Care Teams Supervisor Drying And Softening Relationship Specialty Start Date End Date Eren Shah DNP PCP - General Family Medicine 03/20/21 06/10/22 documented as of this encounter
--- OUTSIDE RECORDS SUMMARY | 2023-11-21 16:00 | XMS_ITS | Encounter Summary ---
Author Organization [facility] Address [facility] [place] [address] Care Team Providers Care Mattress Specialist Name Role Phone Eren Shah CHELSEA Primary Care Provider [phone] Reason for Visit * Reason Comments Medication Refill Encounter Details Date Type Department Care Team (Late st Contact Info) Description 06/20/2021 Refill Hematology/Oncology at [address] [phone] Abena Ogden, RN Metastatic urothelial [...] Telephone Encounter - Gay Marshall RN - 06/20/2021 1:13 PM EST Received prescription refill request via patient call and SureScripts for the following medication: Requested Prescriptions Pending Prescriptions Disp Refills ??? traMADoL (Ultram) 50 mg Tablet [Pharmacy Med Name: TRAMADOL HCL 50 MG TABLET] 30 tablet 0 Sig: START WITH 1/2 TABLET BY MOUTH EVERY 6 HOURS NEEDED FOR PAIN - MAY INCREASE DOSE TO 1 TABLET EVERY 6 HOURS NEEDED FOR PAIN Review of chart suggests that this is an appropriate refill request. Prescription pended and routedto Dr. Lange for review and approval, if agreed. documented in this encounter Plan of Treatment Upcoming Encounters Date Type Department Care Team (Late st Contact Info) Description 12/08/2023 3:30 PM EDT Office Visit Hematology/Oncology at [address] [phone] Chase Mckay MD [facility] DR HEMATOLOGY [place] [address] documented as of this encounter Visit Diagnoses Diagnosis Metastatic urothelial carcinoma Secondary malignant neoplasm of other urinary organs documented in this encounter Care Teams Mattress Specialist Relationship Specialty Start Date End Date Eren Shah DNP PCP - General Family Medicine 03/20/21 06/10/22 documented as of this encounter
--- OUTSIDE RECORDS SUMMARY | 2023-11-21 16:00 | XMS_ITS | Encounter Summary ---
Author Organization [facility] Address [facility] [place] [address] Care Team Providers Care Mine Foreman Name Role Phone Eren Shah DNP Primary Care Provider [phone] Encounter Details Date Type Department Care Team (Late st Contact Info) Description 08/28/2021 Notes Only Hematology/Oncology at [address] [phone] Elizabeth Mccray, [facility] [place] OFFICE OF CARE MANAGEMENT Social History Tobacco [...] Progress Notes * Elizabeth Mccray MSW - 08/28/2021 10:36 AM EDT Follow up with Barb during her infusion visit today. Pt indicated she is managing day to day at home. She enjoyed this past weekend getting out to tend to some outdoor chores. She feels well supported by her family. She got herself in today so her daughter did not have to take time away from work.She talked about some good advice she got from a dear friend. Pt a bit weepy as she misses her friend who has passed. Offered support. Pt did not identify any new needs today. Reminded her of DAIRY WORKER availability and contact information. Will continue to follow. Brief assessment Supportive Counseling documented in this encounter Plan of Treatment Upcoming Encounters Date Type Department Care Team (Late st Contact Info) Description 12/08/2023 3:30 PM EDT Office Visit Hematology/Oncology at [address] [phone] Chase Mckay MD [facility] HEMATOLOGY [place] [address] documented as of this encounter Visit Diagnoses Not on filedocumented in this encounter Care Teams Mine Foreman Relationship Specialty Start Date End Date Eren Shah DNP PCP - General Family Medicine 03/20/21 06/10/22 documented as of this encounter
--- OUTSIDE RECORDS SUMMARY | 2023-11-21 16:00 | XMS_ITS | Encounter Summary ---
Author Organization [facility] Address [facility] Jose Roberto pelaez [place] [id number] Care Team Providers Care Director Property Name Role Phone Eren Shah CHELSEA Primary Care Provider [phone] Reason for Visit * Reason Comments Advice Only * Consultation (Routine) - Closed Specialty Diagnoses / Procedures Referred By Contac t Referred To Contact Hematology and Oncology Diagnoses Primary lung adenocarcinoma, left Jose Lange MD [facility] [place] [address] Chase Mckay MD [facility] [address] HEMATOLOGY [place] [address] Referral ID Status Reason Start Date Expiration Date V isits Requested Visits Authorized [id number] Closed Consult, Test & Treat 07/17/2021 07/17/2022 1 1 Encounter Details Date Type Department Care Team (Late st Contact Info) Description 08/03/2021 10:30 AM EDT Office Visit Hematology [place] [address] Chase Mckay MD [facility] [place] [address] Suzanne Burgess APRN [facility] [place] [address] Metastatic urothelial carcinoma; Primary malignant neoplasm of [...] Sign Reading Time Taken Comments Blood Pressure 122/74 08/03/2021 10:15 AM EDT Pulse 81 08/03/2021 10:15 AM EDT Temperature 36.2 ??C (97.2 ??F) 08/03/2021 10:15 AM E DT Respiratory Rate 16 08/03/2021 10:15 AM EDT Oxygen Saturation 97% 08/03/2021 10:15 AM EDT Inhaled Oxygen Concentration - - Weight 62.7 kg (138 lb 3.2 oz) 08/03/2021 10:15 AM EDT Height 164 cm (5' 4.57) 08/03/2021 10:15 AM EDT Body Mass Index 23.31 08/03/2021 10:15 AM EDT documented in this encounter Progress Notes * Chase Mckay MD - 08/03/2021 10:30 AM EDT Images from the original note were not included[place] [address] [phone] Barb Bullard is being seen for the evaluation of lung cancer. Assessment & Plan: Barb Bullard is a 71 y.o. female [...] recommendations regarding targeted therapy in this context. I discussed the case with him on the day of the visit. She has been treated with single agent pembrolizumab since March with clinical improvement and radiographic stability on CT. PET scan from 4.8 on my review indicates a good response to therapy though we await the formal interpretation. It would appear she has at least a Stage III lung cancer and there is a strong likelihood that the FDG avid pleural effusion could be malignant which would be considered metastatic disease. Systemic therapy makes the most sense in the context of at least locally advanced lung cancer and metastatic (node positive) bladder cancer. With the PD-L1 expression of 90% in the lung specimen, single agent pembrolizumab is the preferred agent for the lung cancer and she fortunately seems to be responding in terms of both her lung and bladder malignancies. At the time of progression, sotorasib would be agood 2nd line therapy in terms of the lung cancer given the KRAS G12C variant but I would not recommend using it at this juncture. There are minimal data at this in terms of sotorasib being used withconcurrent checkpoint inhibitor concurrent though trials looking at concurrent use of KRAS inhibitors (e.g. 2nd generation agent Adagrasib) coupled with immunotherapy agents are underway. Thank you for referring Ms. Bullard, Please do no hesitate to reach out if additional concerns or questions arise. Chase Mckay MD, MS 08/03/2021 Thoracic Oncology [facility] CC: Jose Lange MD HPI/Interval History/Subjective: Barb Bullard is a 71 y.o. female patient with limited past medical history (with limited medical care through the years) who in the summer of 2020 felt quite poorly with weakness recurrent UTIs, andunintentional weight loss related to acute renal failure and bilateral hydronephrosis due to advanced bladder cancer as detailed below. She is accompanied to today's visit by her daughter Daisha. She notes that she has improved significantly since the Fall and summer. Much more active. Only source of pain is related to the insertion site of the nephrostomy tubes. Chronic issue. No blood in her urine. She has not had any significant side effects from the immunotherapy. No new/worsening rash, diarrhea, new cough or changes in her breathing. Has some mild rash on her back (preadates the immunotherapy and has not progressed.) Follows with [facility]. E[facility] [...] [facility]. Lives with her daughter. 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 Tobacco use: 30 pk year hx quit [...] failure and bilateral hydronephrosisdue to advanced bladder cancer.?? 04/04/21 bronchoscopy and tumor debulking endobronchial biopsies positive for adenocarcinoma of lungorigin. 02/21/2021 MRI brain: ?? Impression: No significant intracranial findings ?? 02/18/2025 CT chest abdomen pelvis: ?? Impression: There is a large left lower [...] home on 07.13.21 cT CAP COMPARISON: 04/08/2021 ??Chest: Lungs and large airways: Grossly stable 5.3 [...] node measuring 11 mm. Borderline subcarinal adenopathy ?? Abdomen/pelvis: Liver: No suspicious hepatic lesions. Focal fatty sparing along the falciform ligament Bile ducts: Nondilated. Gallbladder: Surgically absent Pancreas: Normal attenuation without ductal dilatation. Spleen: Normal. Adrenals: Normal. Kidneys: As noted previously bilateral percutaneous nephrostomy tubes. Bilateral double-J internal ureteral stents. Symmetric renal enhancement. No collecting system obstruction secondary to the nephrostomies. No renal masses Urinary Bladder: Decompressed ?? Vasculature: No aneurysm. Lymph Nodes: No enlarged lymph nodes. Bowel: Nondilated, no wall thickening. Peritoneum and mesentery: No ascites, free air, or loculated fluid collection. No mesenteric inflammation. Abdominal wall: Normal. ?? Reproductive organs: Normal. Osseous structures: No suspicious lesions. ?? IMPRESSION ?? 1. Grossly stable LEFT lower lobe lung mass with LEFT pleural effusion 2. Resolution of previously noted patchy consolidation RIGHT lower lobe. 3. Borderline mediastinal and hilar adenopathy. 4. Exam otherwise stable Pathology: DIAGNOSIS Positive for Malignancy DISCUSSION Lymph [...] of left lower lobe mass lung debulking ([id number]), the immunostain findings in the present case [...] are consistent with a lung primary adenocarcinoma. 04.04. DISCUSSION Lymph node, station 11R (EBUS-guided FNA): [...] of left lower lobe mass lung debulking ([id number]), the immunostain findings in the present case are compatible with lung primary. Molecular Data: 04.04.21 Lung biopsy KRAS p.G12C c.34G>T No variants reported. TP53 p.H179Y c.535C>T ONCN ONCOLOGY (AMB) 04/18/2021 05/15/2021 06/05/2021 06/26/2021 07/17/2021 Day, Cycle Day 1, Cycle 1 Day 1, Cycle 2 Day 1, Cycle 3 Day 1, Cycle 4 Day 1, Cycle 5 pembrolizumab 25 mg/mL (Keytruda) IV 200 mg 200 mg 200 mg 200 mg 200 mg Patient Active Problem List Diagnosis Date Noted ??? Anemia 04/18/2021 ??? Bilateral hydronephrosis 04/18/2021 ??? Folate deficiency 04/18/2021 ??? Lung mass 04/18/2021 ??? Obstructive uropathy 04/18/2021 ??? Metastatic urothelial carcinoma 03/27/2021 ??? Abnormal thyroid function test 03/27/2021 No Known Allergies Medications 08/03/21 1055 Medication Sig Taking? senna (Senokot) 8.6 mg Tablet Take by mouth daily. Yes traMADoL (Ultram) 50 mg Tablet Take 0.5-1 tablets by mouth every 6 hours as needed for Pain. Yes prochlorperazine (Compazine) 10 mg Tablet Take 1 tablet by mouth every 6 hours as needed for Nausea. Yes ferrous sulfate EC 325 mg (65 mg iron) Tablet, Delayed Release (E.C.) Take 325 mg by mouth every other day. Yes I reviewed the problem list, allergies, medications, past medical history, social history and family history within the EPIC encounter. Pertinent details are noted above. Pertinent positives and negative from the Review of Systems are as summarized above in the HPI. Physical Exam: Wt Readings from Last 3 Encounters: 08/03/21 62.7 kg (138 lb 3.2 oz) 07/17/21 61.2 kg (135 lb) 06/26/21 63.7 kg (140 lb 6.4 oz) Temp Readings from Last 3 Encounters: 08/03/21 36.2 ??C (97.2 ??F) (Temporal) 07/17/21 36 ??C (96.8 ??F) (Temporal) 07/13/21 36.7 ??C (98 ??F) (Tympanic) BP Readings from Last 3 Encounters: 08/03/21 122/74 07/17/21 112/81 07/13/21 144/88 Pulse Readings from Last 3 Encounters: 08/03/21 81 07/17/21 (!) 102 07/13/21 94 Body surface area is 1.69 meters squared. Wt Readings from Last 3 Encounters: 08/03/21 62.7 kg (138 lb 3.2 oz) 07/17/21 61.2 kg (135 lb) 06/26/21 63.7 kg (140 lb 6.4 oz) KPS Score ECOG Grade [...] selfcare; totally confined to bed or chair Constitutional: Oriented to person, place, and time. No distress. Appears well-developed. HENT: Mouth/Throat: Wearing a mask. No oral ulcers or exudates. Eyes: No scleral icterus. Cardiovascular: Normal rate and regular rhythm. Exam reveals no friction rub. No murmur heard. Pulmonary/Chest: Effort normal. Diminished breath sounds left lung base, Abdominal: Soft. No distension. No tenderness.No rebound. Bilateral percutaneous nephrostomy tubes in place. Musculoskeletal: Normal range of motion. No edema. Lymphadenopathy: No cervical adenopathy. Neurological: Alert and oriented to person, place, and time. CN are grossly intact and non-focal. Skin: Skin is warm and dry. No rash noted. No erythema. Psychiatric: Normal mood and affect. Behavior is normal. Thought content normal. Review of Laboratory Data: No results found for this or any previous visit (from the past 72 hour(s)). Review of Imaging Data: 08.03.21 PET scan (I reviewed the imaging personally which shows a response to treatment.) Await the formal interpretation Review of Pathology Data: I personally reviewed the reports of the pathology as detailed in the oncology overview above. documented in this encounter Plan of Treatment Upcoming Encounters Date Type Department Care Team (Late st Contact Info) Description 12/08/2023 3:30 PM EDT Office Visit Hematology/Oncology at [address] [address] Chase Mckay MD [facility] [place] [address] documented as of this encounter Visit Diagnoses Diagnosis Metastatic urothelial carcinoma Secondary malignant neoplasm of other urinary organs 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 Malignant neoplasm of lower lobe, bronchus, or lung documented in this encounter Care Teams Director Property Relationship Specialty Start Date End Date Eren Shah DNP PCP - General Family Medicine 03/20/21 06/10/22 documented as of this encounter
--- OUTSIDE RECORDS SUMMARY | 2023-11-21 16:00 | XMS_ITS | Encounter Summary ---
Author Organization [facility] Address [facility] [place] [address] Care Team Providers Care Realtime Captioner Name Role Phone Eren Shah CHELSEA Primary Care Provider [phone] Reason for Visit * Consultation (Routine) - Closed Specialty Diagnoses / Procedures Referred By Etta t Referred To Contact Urology Diagnoses Metastatic urothelial carcinoma 05/08/21 - [facility] [place] - METASTATIC UROTHELIAL CA Abena Ogden RN [address] [place] [address] [place] [address] Nasim Beckwith MD [facility] [place] [address] Referral ID Status Reason Start Date Expiration Date V isits Requested Visits Authorized [id number] Closed Consult, Test & Treat 04/18/2021 04/18/2022 1 1 Encounter Details Date Type Department Care Team (Latest Contact Info) Description 06/08/2021 1:00 PM EST TH Visit (TeleHealth) [place] [address] Nasim Beckwith MD [facility] [place] [address] Malignant neoplasm of urinary bladder, unspecified site Social History Tobacco Use Types Packs/Day Years [...] as of this encounter Progress Notes * Nasim Beckwith MD - 06/08/2021 1:00 PM EST UROLOGY TELEHEALTH VISIT Prior to beginning the visit, I confirmed the patients name and date of . I obtained the patient's consent to receiving health care services at [facility] through telemedicine. The patient acknowledges that the insurance may be billed for the care provided, similar to an in person appointment. The patient's problem is suitable for a telephone visit. HPI: 70 yo female referred to me by Abena Ogden APRN for a newly diagnosed metastatic bladder cancer with bilateral hydronephrosis managed with bilateral nephrostomy tubes. She was also diagnosed with stage III adenocarcinoma of the lung and is currently being treated with immunotherapy due to BRITNI/CKI. She denies any hematuria or bladder pain. Her breathing has improved significantly after the bronchoscopic procedure. She quit smoking several years ago. She has had issues with the NTs (clogging and infections) but hasn't had any issues recently. Last change was in March. Patient Active Problem List Diagnosis ??? Anemia ??? Bilateral hydronephrosis ??? Folate deficiency ??? Lung mass ??? Obstructive uropathy ??? Metastatic urothelial carcinoma ??? Abnormal thyroid function test Past Surgical History: Procedure Laterality Date ??? IR MEDIPORT PLACEMENT 04/02/2021 IR Mediport Placement 04/02/2021 Yuval Sinclair PA [facility] INTERVENTIONL RAD ??? IR NEPHROSTOMY TUBE PLACEMENT PERCUTANEOUS BILATERAL 02/20/2021 IR Nephrostomy Tube Placement Percutaneous Bilateral [facility] INTERVENTIONL RAD ? ? PRO [facility] EBUS GUIDED SAMPL 3/> NODE STATION/STRUX N/A 04/04/2021 BRONCH, W ENDOBRONCHIAL ULTRASOUND (EBUS) GUIDED SAMPLING, 3+ NODES (WRVU 5.21) performed by Alonzo Cevallos MD at [facility] MAIN OR ??? PRO BRONCHOSCOPY, DIAGNOSTIC W LAVAGE N/A 04/04/2021 BRONCHOSCOPY, RIGID OR FLEXIBLE, WITH BRONCHIAL ALVEOLAR LAVAGE (WRVU 2.88) performed by Alonzo Cevallos MD at [facility] MAIN OR Social History Socioeconomic History ??? Marital status: Single Spouse name: Not on file ??? Number of children: Not on file ??? Years of education: Not on file ??? Highest education level: Not on file Occupational History ??? Not on file Tobacco Use ??? Smoking status: Former Smoker Types: Cigarettes Quit date: 07/04/2014 Years since quittin.9 ??? Smokeless tobacco: Never Used Vaping Use [...] Unstable Housing in the Last Year: No No family history on file. ROS: negative for fever, chills, nausea, vomiting, diarrhea, constipation, hematuria, dysuria, CP, SOB EXAMINATION: CT ABDOMEN AND PELVIS W CONTRAST 04/08/21 ?? CLINICAL HISTORY: Flank pain, kidney stone suspected Bilateral flank pain with decreased output of nephrostomy tube on right ? TECHNIQUE: Helical CT of the abdomen and pelvis was performed following the intravenous administration of contrast. Administered 73.0 ml of OMNIPAQUE 350.00 mg/ml. Oral contrast was noted administered. ?? COMPARISON: PET/CT dated 03/19/[address] CAP dated 02/18/2021 ?? FINDINGS: ?? Lower chest: Loculated left-sided pleural effusion with similar solid mass in the left lower lobe, partially visualized as before. Peripheral areas of patchy opacities in the right middle and lower lung lobes concerning for infectious/inflammatory etiology with superimposed atelectasis. No right-sided pleural effusion. ?? Liver: Normal size and attenuation without lesions. Focal fatty sparing along the falciform ligament. Bile ducts: CBD is again noted to be prominent at jose hepatis measuring up to 1.5 cm. Mild intrahepatic ductal dilatation. Gallbladder: Surgically absent. Pancreas: Normal attenuation without ductal dilatation. Spleen: Normal. Adrenals: Normal. Right kidney: Percutaneous nephroureteral catheter on the right side with pigtail formed slightly more laterally in the lower pole renal pelvis and distal end of the pigtail within the urinary bladder, appropriately positioned. No hydronephrosis or obstructing nephrolithiasis. Left kidney: Nephroureteral stent with pigtail formed appropriately within the renal pelvis and distal end within the urinary bladder, appropriately positioned. Urinary Bladder: Partially filled limiting evaluation. However, there is redemonstration of the. ?? Vasculature: No abdominal aortic aneurysm Lymph Nodes: Multiple nonenlarged regional external iliac lymph nodes and obturator chain lymph nodes are redemonstrated. No bulky adenopathy Bowel: Nondilated, no wall thickening. Moderate stool burden throughout the large bowel Peritoneum and mesentery: No ascites, free air, or loculated fluid collection. No mesenteric inflammation. Abdominal wall: Bilateral findings percutaneous nephroureteral catheter. ?? Reproductive organs: Normal CT appearance of the uterus without adnexal mass identified. Osseous structures: No suspicious lesions. Diffuse osseous demineralization is noted with Hounsfield units measured at L1 which are in the range of osteopenia. ?? IMPRESSION 1. Bilateral percutaneous nephroureteral catheter appears [...] no contraindications. 5. Other findings as above. A/P: #metastatic bladder cancer #bilateral ureteral obstruction #stage III lung cancer I explained to her management options for metastatic bladder cancer and agreed with continuing immunotherapy for now. I explained to her the role of radiation as a palliative management for worseningbladder symptoms in the future. I also explained to her the need for nephrostomy tube exchange and will schedule to happen in June. 46 minutes were spent in counseling and coordination of care. documented in this encounter Plan of Treatment Upcoming Encounters Date Type Department Care Team (Late st Contact Info) Description 12/08/2023 3:30 PM EDT Office Visit Hematology/Oncology at [address] [phone] Chase Mckay MD [facility] DR [place]AT[place]Y [place] [address] documented as of this encounter Visit Diagnoses Diagnosis Malignant neoplasm of urinary bladder, unspecified site documented in this encounter Care Teams Realtime Captioner Relationship Specialty Start Date End Date Eren Shah DNP PCP - General Family Medicine 03/20/21 06/10/22 documented as of this encounter
--- OUTSIDE RECORDS SUMMARY | 2023-11-21 16:00 | XMS_ITS | Encounter Summary ---
[facility] [place] [address] Care Team Providers Care Caustic Loader Name Role Phone Eren Shah DNP Primary Care Provider [phone] Encounter Details Date Type Department Care Team (Late st Contact Info) Description 05/15/2021 10:00 AM EST Office Visit Hematology/Oncology at [address] [phone] Jose Lange MD [facility] [address] [place] [address] Abena Ogden, RN Metastatic urothelial carcinoma; Abnormal [...] Sign Reading Time Taken Comments Blood Pressure 94/68 05/15/2021 9:57 AM EST Pulse 94 05/15/2021 9:57 AM EST Temperature 36.7 ??C (98.1 ??F) 05/15/2021 9:57 AM ES T Respiratory Rate 16 05/15/2021 9:57 AM EST Oxygen Saturation 98% 05/15/2021 9:57 AM EST Inhaled Oxygen Concentration - - Weight 61.2 kg (135 lb) 05/15/2021 9:57 AM EST Height 163.8 cm (5' 4.49) 05/15/2021 9:57 AM ES T Body Mass Index 22.82 05/15/2021 9:57 AM EST documented in this encounter Progress Notes * Jose Lange MD - 05/15/2021 10:00 AM EST Images from the original [...] distinct lung primary. She was seen by wire basket maker , who recommended rigid bronchoscopy with attempts [...] HTN. She wasdischarged home on 05/01/21 Interval history(05/15/21): Ms. Bullard is in clinic for follow-up of bladder cancer and pembrolizumabinfusion. Barb completed a course of Levaquin 8 days ago. She feels her breathing has significantly improved.. She denies any fevers or chills. She is now on Lasix po as she was found to have pulmonary HTN in hospital. Creatinine is 1.8 today- her baseline is 1.5. She does have home health nurses twice a week. Nephrostomy tubes are draining well. Barb was seen by palliative care Dr. Patel. She is on tramadol for back pain. PMH: 04/26/21-05/01/21 admission to [facility] with pneumonia, Pulmonary hypertension/CHF, BRITNI 04/16/2021 nephrostomy catheter exchange 04/04/21 bronchoscopy and tumor debulking- endobronchial biopsies positive for adenocarcinoma of lung origin Social History: [id number] smoking history quit 6 years ago, does not drink alcohol, used to liveindependently, but currently moved to her daughter house. Family History: Brother had liver cancer, mother had leukemia, maternal aunt had colon cancer in cousin had bladder cancer Allergies: No Known Allergies Medications: Your Medications Accurate as of May 15, 2021 10:16 AM. If you have any questions, ask [...] axillary nodes normal Neurologic: Normal Vitals BP 94/68 (Patient Position: Sitting) Pulse 94 Temp 36.7 ??C (98.1 ??F) (Temporal) Resp16 Ht 163.8 cm (5' 4.49) Wt 61.2 kg (135 lb) SpO2 98% BMI 22.82 kg/m?? Pathology: 04/04/21 ADDENDUM DISCUSSION PD-L1 Immunohistochemistry [...] The assay was performed according to the buyer tobacco head's ??instructions using Anti-PD-L1 (22C3, pharmDX) antibody. Electronically signed by: ?Herbert Ford MD Verified: ??04/11/2021 8:14 ?? Pathologist Performed at: ??-[facility], [place], [place] ? Surgical Pathology DIAGNOSIS A - Lung, ??left lower lobe mass, debulking: ?? - Adenocarcinoma, consistent with lung primary. Electronically signed by: ?Sana Dowell MD Verified: ??04/06/2021 11:16 ??Pathologist Performed at: ??-[facility], [place], [place] DISCUSSION Sections show an invasive, predominantly [...] propria. - No muscularis propria identified. Labs: 05/15/2021 sodium 136, potassium 4.2, BUN 24, creatinine 1.8, calcium 8.9, alkaline phosphatase 127, total protein 8.7, albumin 3.1, TSH 3.2, free T4 0.9, WBC 11.9, hemoglobin 9.7, platelet count 958, ANC 6.2, 05/09/21- WBC-12.15 Hgb/Hct-9.0/29.3 Plt-984 ANC-7.16 Na-138 [...] of presumably metastatic urothelial carcinoma which include [place] based chemotherapy versus immunotherapy. Due to her [...] metastatic urothelial carcinoma and primary lung adenocarcinoma. 05/15/21 Elizabeth returned today to continue treatment with Pebrolizumab. She was hospitalized with CAP, BRITNI and pulmonary HTN 2 weeks ago She completed antibiotics and feels significant improvement in her breathing... Cr today is 1.8- not back to her baseline of 1.5 We discussed the goals of care and treatment. She wants to continue her current palliative immunotherapy. We will proceed with second cycle of pembrolizumab today. # Low back pain- Taking ibuprofen. Asked her to discontinue this and we will try Tramadol 50 mg every 12 hours with tylenol in between if needed. Follow up with palliative care. She has talked with them by phone. #Renal insufficiency: Creatinine 3.0 on admission, today creatinine is 1.8, stable she has bilateral nephrostomy tubes. #Moderate left pleural effusion: On chest x-ray #Pneumonia treated with ceftriaxone and azithromycin and finished course of Levaquin at home. Plan: 1. Pembrolizumab today 2. Next visit with blood work and pembrolizumab in 3 weeks The plan was discussed with patient's in details. All questions were answered to patient satisfaction. I would like to thank Dr. Arzate for allowing me to participate in the care of this wonderful lady documented in this encounter Plan of Treatment Upcoming Encounters Date Type Department Care Team (Late st Contact Info) Description 12/08/2023 3:30 PM EDT Office Visit Hematology/Oncology at [address] [phone] Chase Mckay MD [facility] [address] [place] [address] documented as of this encounter Visit Diagnoses Diagnosis Metastatic urothelial carcinoma Secondary malignant neoplasm of other urinary organs Abnormal thyroid function test Nonspecific abnormal results of thyroid function study Primary lung adenocarcinoma, left documented in this encounter Care Teams Caustic Loader Relationship Specialty Start Date End Date Eren Shah DNP PCP - General Family Medicine 03/20/21 06/10/22 documented as of this encounter
--- OUTSIDE RECORDS SUMMARY | 2023-11-21 16:00 | XMS_ITS | Encounter Summary ---
[place] [address] Care Team Providers Care Order Entry Administrator Name Role Phone Eren Shah CHELSEA Primary Care Provider [phone] Reason for Referral * Diagnostic Test (Routine) - Closed Specialty Diagnoses / Procedures Referred By Contac t Referred To Contact Radiology Diagnoses Primary lung adenocarcinoma, left Metastatic urothelial carcinoma Procedures NM PET CT Skull Base to Mid-thigh Jose Lange MD [facility] [place] [address] [place] [address] Referral ID Status Reason Start Date Expiration Date V isits Requested Visits Authorized [id number] Closed Specialty Service Requested 07/17/2021 01/17/2023 1 1 Reason for Visit * Diagnostic Test (Routine) - Closed Specialty Diagnoses / Procedures Referred By Contac t Referred To Contact Radiology Diagnoses Primary lung adenocarcinoma, left Metastatic urothelial carcinoma Procedures NM PET CT Skull Base to Mid-thigh Jose Lange MD [facility] [address] [place] [address] [facility] [place] [address] Referral ID Status Reason Start Date Expiration Date V isits Requested Visits Authorized [id number] Closed Specialty Service Requested 07/17/2021 01/17/2023 1 1 Encounter Details Date Type Department Care Team (Latest Contact Info) Description 08/03/2021 12:38 PM EDT Hospital Encounter Nuclear Medicine at [facility] [place] [address] Jose Lange MD [facility] [address] [place] [address] Primary lung adenocarcinoma, left; Metastatic urothelial carcinoma Discharge Disposition: Home Social [...] PM EDT Office Visit Hematology/Oncology at [address] [phone] Chase Mckay MD [facility] DR HEMATOLOGY [place] [address] documented as of this encounter Procedures Procedure Name Priority Date/Time Associated Diagnosis Comments NM PET CT SKULL BASE TO MID-THIGH ([facility]) Routine 08/03/2021 2:10 PM EDT Primary lung adenocarcinoma, left Metastatic urothelial carcinoma POCT GLUCOSE Routine 08/03/2021 12:50 PM EDT documented in this encounter Results * NM [...] who have questions please contact the health pet care attendant that requested your imaging first. ? Electronically signed by: Ed Barajas MD, [facility] ([phone]), at 08/06/2021 11:05 AM Narrative 08/06/2021 11:05 AM EDT EXAMINATION: NM PET CT STANDARD SKULL BASE TO MID-THIGH CLINICAL HISTORY: Urologic cancer, assess treatment response - Include more detail below Restaging of metastatic urothelial carcinoma and primary lung cancer Currently on Pembrolizumab. Status post 5 cycles of chemotherapy. Subsequent treatment evaluation. TECHNIQUE: Following IV injection of 34-oqddiv-7-deoxyglucose (FDG) a standard uptake of approximately 60 [...] treatment evaluation. TECHNIQUE: Following IV injection of 92-xrkuos-4-deoxyglucose (FDG) astandard uptake of approximately 60 minutes, [...] nodes in the left periaortic region (axial ), decreased in size and intensity compared to [...] patients who have questions please contactthe health pet care attendant that requested your imaging first. Electronically signed by: Ed Barajas MD, [facility]([phone]), at 08/06/2021 11:05 AM Jose Lange MD IMG PET ORDERABLES * POCT Glucose (08/03/2021 12:50 PM EDT) POC Glucose 83 65 - 199 mg/dL [facility] Comment: Supplemental ranges: <140 mg/dL before meals <180 mg/dL all other times of the day Blood 08/03/2021 12:5 0 PM EDT 08/03/2021 12:50 PM EDT Jose Lange MD POINT OF CARE TEST O RDERABLES [facility] [place] [address] documented in this encounter Visit Diagnoses Diagnosis Primary lung adenocarcinoma, left Metastatic urothelial carcinoma Secondary malignant neoplasm of other urinary organs documented in this encounter Administered Medications Inactive Administered Medications - up to 3 most recent administrations Medication Order MAR Action Action Date Dose Rate Site fludeoxyglucose (F-18) FDG injection 0-20 mCi 0-20 mCi, Intravenous, ONCE PRN, 1 dose, Starting on Fri08/03/21 at 1310, Until Fri08/03/21 at 1257, Per Protocol, Radiology Contrast, Routine Given 08/03/2021 12:57 PM EDT 9.4 mCi documented in this encounter Care Teams Order Entry Administrator Relationship Specialty Start Date End Date Eren Shah DNP PCP - General Family Medicine 03/20/21 06/10/22 documented as of this encounter
--- OUTSIDE RECORDS SUMMARY | 2023-11-21 16:00 | XMS_ITS | Encounter Summary ---
[place] [address] Care Team Providers Care Public Health Aides Teacher Name Role Phone Eren Shah CHELSEA Primary Care Provider Reason for Referral * Diagnostic Test (Routine) - Closed Specialty Diagnoses / Procedures Referred By Contac t Referred To Contact Radiology Diagnoses Metastatic urothelial carcinoma Procedures IR Nephroureteral (NU) Stent Placement Check/Change Guillermo Nice MD [facility] [place] [address] [facility] [place] [address] Referral ID Status Reason Start Date Expiration Date V isits Requested Visits Authorized [id number] Closed Specialty Service Requested 04/16/2021 10/15/2022 1 1 Reason for Visit * Diagnostic Test (Routine) - Closed Specialty Diagnoses / Procedures Referred By Contac t Referred To Contact Radiology Diagnoses Metastatic urothelial carcinoma Procedures IR Nephroureteral (NU) Stent Placement Check/Change Guillermo Nice MD [facility] [place] [address] [facility] [place] [address] Referral ID Status Reason Start Date Expiration Date V isits Requested Visits Authorized [id number] Closed Specialty Service Requested 04/16/2021 10/15/2022 1 1 Encounter Details Date Type Department Care Team (Latest Contact Info) Description 07/13/2021 12:01 PM EDT - 07/13/2021 2:28 PM EDT Hospital Encounter Radiology at [facility] [place] [address] Guillermo Nice MD [facility] [place] [address] Metastatic urothelial carcinoma Discharge Disposition: Home Social [...] Sign Reading Time Taken Comments Blood Pressure 131/72 07/13/2021 2:15 PM EDT Pulse 86 07/13/2021 2:15 PM EDT Temperature 36.7 ??C (98 ??F) 07/13/2021 2:13 PM EDT Respiratory Rate 15 07/13/2021 2:15 PM EDT Oxygen Saturation 98% 07/13/2021 2:15 PM EDT Inhaled Oxygen Concentration - - Weight - - Height - - Body Mass Index - - documented in this encounter Discharge Instructions * Discharge Instructions* Madelin Doshi, RN - 07/13/2021 1:27 PM EDT Images from the original note were not included. INTERVENTIONAL RADIOLOGY DRAIN CARE INSTRUCTIONS Drains help to keep fluid from collecting by removing the extra blood and fluid from under the skinor from an abscess within the body. A drain is temporary. It stays in place until the drainage has slowed down or stopped. Your Provider will decide when each drain should be removed. This is usuallyafter each drain has 30cc or less in 24 hours for 2-3 days in a row. You will then be scheduled for what is called a Sinogram to check and see if the fluid collection has gotten smaller. How do I care for the drains at home? Pin your drain/s to your clothing by using a safety pin through the plastic loop on the top of the bulb. If the drain is not attached to your clothing, it may pull out from under your skin. Also, a drain usually feels more comfortable when it???s attached. To care for the drain at home, you will have to empty the drain, ???strip?? the drain tubing, and change the dressing if applicable. * See the following information on instructions on how to do this. You will go home with a dressing over the insertion site. Usually, Visiting Nurses are set up to show you how to change the dressing and care for the drain. They may teach a family member if they arewilling. The dressing needs to only be change once a week provided there is no leakage around the tube. What problems may I have with my drain? The bulb is not compressed- The bulb may not be squeezed tightly enough, the plug may not be closedsecurely, or the tube has slipped out a bit and is leaking. Follow the instructions on how to emptythe drain. If the bulb remains expanded, then notify your doctor or nurse during business hours. No drainage or sudden decrease in amount of drainage- This may be due to a plug in the drain. Please notify your doctor or nurse during business hours. The tube accidentally falls out- If this happens, place a dry gauze dressing over the drain site and notify your doctor or nurse during business hours. Increased redness, swelling, or heat around the tube insertion site- This may be a sign of infection. Take your temperature: if it is higher than 101F or 38.8C, call your doctor or nurse immediately.Otherwise, notify your doctor or nurse during business hours and keep the dressing clean and dry. How to Empty Your Drain and flush drain Note: Wash your hands thoroughly before emptying your drain(s). Unpin the drain from your clothing. 1. Turn the white stopcock so it is not parallel (in line) with the tubing. 2. Unscrew the tubing with the bulb attached from stopcock. Make sure you keep everything clean. 3. Attach the syringe with sterile saline to the stopcock. 4. Inject saline per MD order, 3-5 cc's. Forward flush only, do not aspirate back. 5. Re-attach the tubing with the bulb to the stopcock. 6. Invert the bulb and pull open the plug. 7. Have the plastic measuring cup from the hospital ready to collect and measure the drainage. Please measure the output at the same time every 24 hours and record the amount. 8. Turn the drain upside down and squeeze the contents of the bulb into the measuring cup. Be sure to empty the bulb as completely as possible. Flush the contents in the toilet. 9. Use the drain output log chart to record the amount of drainage twice a day or any time the bulbis full. Record the total for 24 hours for each drain you have. 10. If you have more than one drain, remember to record the drainage from each drain separately. 11. To prevent infection, do not let the stopper or top of the bottle touch the measuring cup or any other surface. Use one hand to squeeze all of the air from the drain. With the drain still squeezed, use your other hand to replace the top. This creates the suction necessary to remove the fluids from your body. Pin the drain back on your clothing to avoid pulling it out accidently. Wash your hands again. Remember to wash your hands before and after the procedure to reduce the risk of infection. Flushing the Drain: Your doctor may want the drain to be flushed once or twice daily to keep the fluid from plugging the drain. Flush the drain with 3-5 cc daily with the syringes supplied to you. FORWARD FLUSH ONLY, DO NOT ASPIRATE BACK. When to call the Interventional Radiology Department: Please call with any questions or concerns. If it is during regular office hours, please call [phone]. If it is after regular office hours, or on weekends or holidays, please call [phone] and ask to speak to the [employer]ane [employer] nurse practitioner physicians assistant for Interventional Radiology. XX You have received medication during your procedure to help lessen anxiety and keep you comfortable. These medications affect judgement and reaction time. We [...] please contact your M. D. Revised 02/11/19 Drainage Record NAME: Date of Surgery: Date: Time: If more than one drain, which one: Drainage Amount (per drain) Total Amount (per drain; in 24 hours) documented in this encounter Medications at Time [...] 03/13/2021 07/17/2021 documented as of this encounter Progress Notes * Madeiln Doshi RN - 07/13/2021 2:14 PM EDT Report given to receiving nurse Pamella. Pt transferred to post op * Madelin Doshi RN - 07/13/2021 2:05 PM EDT Pt alert and oriented, local only used , she complained of pain throughout the procedure. Dressing applied, supplies for tubes flush and dressing change given to patient . Pt transferred to post procedure * Madelin Doshi RN - 07/13/2021 1:52 PM EDT Drain changed by MD de la cruz, Lot [id number] * Madelin Doshi RN - 07/13/2021 1:51 PM EDT Draine changed LOT [id number] By MD de la cruz * Annmarie Abbott RN - 07/10/2021 9:28 AM EDT ANGIO NURSING DATABASE Name: BARB BULLARD Date of : 1950 AGE: 71 y.o. Address: [address] [facility] [address] Phone: [phone] (home) Mobile: Telephone Information: Referring Provider: Guillermo Nice REASON FOR VISIT: Order Questions Answers Where will study be performed? [facility] Radiology [120] Reason for exam and clinical history: Bilateral NUs for malignant ureteral obstruction, last changed at 2 months with both tubes patent. Planning 2.5 to 3- month next exchange. Is the patient on anticoagulant / antiplatelet therapy ? No No data recorded No Known Allergies Pertinent PMH: Patient Active Problem List Diagnosis Code ??? Metastatic urothelial carcinoma C79.10 ??? Abnormal thyroid function test R94.6 ??? Anemia D64.9 ??? Bilateral hydronephrosis N13.30 ??? Folate deficiency E53.8 ??? Lung mass R91.8 ??? Obstructive uropathy N13.9 ?? Date/Procedure Meds Given/Comments 02/20/21 b/l PCN Placement?? No abx - covered from meds at OSH?4 mg midazolam,??175??mcg fentanyl ??04/02/21??Right chest port placement?local lidocaine, 2g Ancef,??3mg midazolam,??150mcg fentanyl 04/16/21 B/L Double J Stent Exchange ??Lido Jelly ? Laboratory Results: Lab Results Component Value Date CREATININE 1.51 (H) 04/16/2021 Lab Results Component Value Date K 4.5 04/16/2021 Lab Results Component Value Date PLATELET 873 (H) 04/16/2021 documented in this encounter H&P Notes * Madelin Doshi RN - 07/13/2021 1:57 PM EDT INTERVENTIONAL RADIOLOGY FOCUSED H&P and PRE-PROCEDURE NOTE: PCP: Eren Shah APRN Referring Provider: Guillermo Nice Planned Procedure: Planned procedure: Bilateral nephroureteral stent exchange Procedure Indication: Metastatic urothelial carcinoma with hydronephrosis Procedure request received through Interventional Radiology eDH order queue. Order Questions Answers Where will study be performed? [facility] Radiology [120] Reason for exam and clinical history: Bilateral NUs for malignant ureteral obstruction, last changed at 2 months with both tubes patent. Planning 2.5 to 3- month next exchange. Is the patient on anticoagulant / antiplatelet therapy ? No Presenting Diagnosis/ Complaint: Barb Bullard is a 71 y.o. female with metastatic urothelial carcinoma who had antegrade NU catheteres placed on 02/20/21 with first exchange on 04/16/21 using 10F 22cmlocking pigtail catheters. She is presenting for routine exchange. Past Medical/Surgical History: Patient Active Problem List Diagnosis Code ??? Metastatic urothelial carcinoma C79.10 ??? Abnormal thyroid function test R94.6 ??? Anemia D64.9 ??? Bilateral hydronephrosis N13.30 ??? Folate deficiency E53.8 ??? Lung mass R91.8 ??? Obstructive uropathy N13.9 No past medical history on file. Past Surgical History: Procedure Laterality Date ??? IR MEDIPORT PLACEMENT 04/02/2021 IR Mediport Placement 04/02/2021 Yuval Sinclair PA [facility] INTERVENTIONL RAD ??? IR NEPHROSTOMY TUBE PLACEMENT PERCUTANEOUS BILATERAL 02/20/2021 IR Nephrostomy Tube Placement Percutaneous Bilateral [facility] INTERVENTIONL RAD ? ? PRO [facility] [...] Prior to Encounter Medication Sig Dispense Refill ??? traMADoL (Ultram) 50 mg Tablet START WITH 1/2 TABLET BY MOUTH EVERY 6 HOURS NEEDED FOR PAIN - MAY INCREASE DOSE TO 1 TABLET EVERY 6 HOURS NEEDED FOR PAIN 30 tablet 0 ??? furosemide (Lasix) 20 mg Tablet TAKE 1 TABLET BY MOUTH EVERY DAY WITH MEALS ??? potassium chloride ER (Klor-con) 10 mEq Tab Sust.Rel. Particle/Crystal Take 1 tablet by mouth daily. (Patient not taking: Reported on 06/05/2021) 15 tablet 0 ??? prochlorperazine (Compazine) 10 mg Tablet Take 1 tablet by mouth every 6 hours as needed for Nausea. (Patient not taking: Reported on 06/26/2021) 15 tablet 0 ??? docusate sodium (Colace) 100 mg Capsule Take 100 mg by mouth daily. ??? ferrous sulfate EC 325 mg (65 mg iron) Tablet, Delayed Release (E.C.) Take 325 mg by mouth every other day. ??? polyethylene glycoL (Miralax) 17 gram/dose Powder DISSOLVE ONE TEASPOONFUL IN WATER AND DRINK THREE TIMES A DAY No current facility-administered medications on file prior [...] Cigarettes Quit date: 07/04/2014 Years since quittin.0 ??? Smokeless tobacco: Never Used Vaping Use [...] (H) 04/16/2021 BUN 29 (H) 04/16/2021 CREATININE 1.51 (H) 04/16/2021 ALKPHOS 85 04/16/2021 AST 11 04/16/2021 ALBUMIN 3.5 04/16/2021 BILITOT 0.3 04/16/2021 ALT 14 04/16/2021 PROT 8.2 (H) 04/16/2021 K 4.5 04/16/2021 IR History: Date/Procedure ?Meds Given/Comments 02/20/21 b/l PCN Placement?? No abx - covered from meds at OSH?4 mg midazolam,??175??mcg fentanyl ??04/02/21??Right chest port placement?local lidocaine, 2g Ancef,??3mg midazolam,??150mcg fentanyl 04/16/21 B/L Double J Stent Exchange ??Lido Jelly ??07/13/2021 Bileteral Nu exchange ??Cipro 500 mg PO, Local only, pt was in a lot of pain, may consider fentanyl for next exchange. ? 1326 to procedure room 2 via stretcher. Onto table prone. All monitors, O2, safety strap in place. Meds per protocol. ?? Physical Exam: Pending (to be performed in angio the day of procedure) ASA: Pending (to be assessed in angio the day of procedure) Mallampati Class: Pending (to be assessed in angio the day of procedure) Assessment: 71 y.o. female with metastatic urothelial carcinoma with obstruction requiring bilateral NU stents here for routine exchange. Plan: Planned procedure: Bilateral nephroureteral stent exchange Labs to be performed day of procedure: No labs Sedation: No Sedation Prophylactic antibiotic : None Contrast: Omnipaque Additional medications for procedure: Lidocaine Position: Supine Consent: Scanned Medications to discontinue (and days held): None Case Urgency:: G- Other (non E or F elective cases) Leonela Pineda MD 07/10/2021 documented in this encounter Plan of Treatment Upcoming Encounters Date Type Department Care Team (Late st Contact Info) Description 12/08/2023 3:30 PM EDT Office Visit Hematology/Oncology at [address] [phone] Chaes Mckay MD [facility] [place] [address] documented as of this encounter Procedures Procedure Name Priority Date/Time Associated Diagnosis Comments IR NEPHROURETERAL (NU) STENT PLACEMENT/CHECK/CHANGE Routine 07/13/2021 2:11 PM EDT Metastatic urothelial carcinoma documented in this encounter Results * IR Nephroureteral (NU) Stent Placement Check/Change (07/13/2021 2:11 PM EDT) Anatomical Region Laterality Modality X-Ray Angiograph y Impressions 07/16/2021 1:55 PM EDT : Successful routine exchange of 10 Fr bilateral nephroureterosotmy tubes. ? I, Dr. De La Cruz, was present throughout the procedure. I was present during the intraservice time as documented by the IR Nurse. ?? Narrative 07/16/2021 1:55 PM EDT IR PROCEDURE REPORT : Percutaneous nephroureterostomy check, exchange INDICATION: routine exchange of NU. ?? 70 y.o.??female??with PMH of bladder CA with bilateral ureteral obstruction s/p bilateral antegrade nephroureteral catheter placement on 02/20/21?? TECHNIQUE: Spot image obtained. ??Contrast injected via right NU, spot images obtained. Catheter exchanged over guidewire for new 10 F 22 cm nephroureterosotmy tube. ?? Contrast injected via left NU, spot images obtained. Catheter exchanged over guidewire for new 10 F 22 cm nephroureterosotmy tube. Patient tolerated the procedures well and there were no immediate complications. Contrast: 20 cc Omni 350. (30 cc discarded) ??EBL : 0 cc FINDINGS: bilateral percutaneous nephroureterosotmy tubes, coils in renal pelves, tips coiled in bladder. ?? Guillermo Nice MD IMG IR ORDERABLES documented in this encounter Visit Diagnoses Diagnosis Metastatic urothelial carcinoma Secondary malignant neoplasm of other urinary organs documented in this encounter Administered Medications Inactive Administered Medications - up to 3 most recent administrations Medication Order MAR Action Action Date Dose Rate Site ciprofloxacin (Cipro) tablet 500 mg 500 mg, Oral, ONCE, 1 dose, On Fri07/13/21 at 1300, Angio/IR (Intra-Procedure), Routine, Indication for (Active or Suspected): Prophylaxis Given 07/13/2021 1:00 PM EDT 500 mg iohexoL (Omnipaque) (350 mg/mL) solution 1-400 mL 1-400 mL, Other, ONCE, 1 dose, On Fri07/13/21 at 1300, For intra-procedural use by proceduralist., Angio/IR (Intra-Procedure), Routine Given 07/13/2021 1:47 PM EDT 15 mLs documented in this encounter Care Teams Public Health Aides Teacher Relationship Specialty Start Date End Date Eren Shah DNP PCP - General Family Medicine 03/20/21 06/10/22 documented as of this encounter
--- OUTSIDE RECORDS SUMMARY | 2023-11-21 16:00 | XMS_ITS | Encounter Summary ---
Author Organization [facility] Address [facility] [place] [address] Care Team Providers Care Distribution Engineer Name Role Phone Eren hSah DNP Primary Care Provider [phone] Encounter Details Date Type Department Care Team (Late st Contact Info) Description 05/09/2021 Notes Only Hematology/Oncology at [address] [phone] Elizabeth Mccray, [facility] C[facility] MANAG[facility] Social History Tobacco [...] Progress Notes * Elizabeth Mccray MSW - 05/09/2021 9:51 AM EST Request from reuben Ogden APRN to meet with pt and daughter during her clinic visit to review her advance directive and assist with witnessing. Met with pt and daughter Daisha. Reviewed pt's completed advance directive. Pt signed her document in the presence of TRUST ADMINISTRATOR and a volunteer. We signed as witnesses. Pt to add her PCP contact information and will then give a copy of her advance directive to us for her file. Pt indicated she has alsocompleted a COLST and requested a copy of this also. Pt is not receiving treatment to day and she was weepy sharing her disappointment in a delay. Offered support. TRUST ADMINISTRATOR will continue to follow pt for support and resources. Supportive Counseling Advance care planning documented in this encounter Plan of Treatment Upcoming Encounters Date Type Department Care Team (Late st Contact Info) Description 12/08/2023 3:30 PM EDT Office Visit Hematology/Oncology at [address] [phone] Chase Mckay MD [facility] HEMATOLOGY [place] [address] documented as of this encounter Visit Diagnoses Not on filedocumented in this encounter Care Teams Distribution Engineer Relationship Specialty Start Date End Date Eren Shah DNP PCP - General Family Medicine 03/20/21 06/10/22 documented as of this encounter
--- OUTSIDE RECORDS SUMMARY | 2023-11-21 16:00 | XMS_ITS | Encounter Summary ---
Author Organization [facility] Address [facility] [place] [address] Care Team Providers Care Rubber Stamp Maker Name Role Phone Eren Shah DNP Primary Care Provider Encounter Details Date Type Department Care Team (Late st Contact Info) Description 05/09/2021 9:30 AM EST Office Visit Hematology/Oncology at [address] [phone] [facility] DR HEMATOLOGY [place] [address] Metastatic urothelial carcinoma Social History Tobacco Use [...] medical appointments or from getting medications? No 11/3 In the past 12 months, has l [...] Progress Notes * Cande Antonio RD - 05/09/2021 9:30 AM EST Nutrition Note Unable to see patient in clinic today as she did not receive treatment. Will f/u next week by phone. documented in this encounter Plan of Treatment Upcoming Encounters Date Type Department Care Team (Late st Contact Info) Description 12/08/2023 3:30 PM EDT Office Visit Hematology/Oncology at [address] [phone] Chase Mckay MD [facility] DR HEMATOLOGY [place] [address] documented as of this encounter Visit Diagnoses Diagnosis Metastatic urothelial carcinoma Secondary malignant neoplasm of other urinary organs documented in this encounter Care Teams Rubber Stamp Maker Relationship Specialty Start Date End Date Eren Shah DNP PCP - General Family Medicine 03/20/21 06/10/22 documented as of this encounter
--- OUTSIDE RECORDS SUMMARY | 2023-11-21 16:00 | XMS_ITS | Encounter Summary ---
Author Organization [facility] Address [place] [address] Care Team Providers Care Assistant Clinical Director Name Role Phone Eren Shah DNP Primary Care Provider [phone] Encounter Details Date Type Department Care Team (Late st Contact Info) Description 08/07/2021 Notes Only Hematology/Oncology at [address] [phone] Elizabeth Mccray, [facility] Social History Tobacco [...] Progress Notes * Elizabeth Mccray MSW - 08/07/2021 9:37 AM EDT Follow up with pt during her infusion visit today. Pt indicated she is doing very well. She is feeling well. She is driving so she is getting out and about some. She is able to visit with her brotherwho is not well and help him a bit. She continues to live with her daughter and son in law. She is managing day to day at home. She is looking forward to the weather warming up and summer activities to come. Pt did not identify any new needs. Offered support. Reminded pt of SUPERVISOR BEET END availability and contact information. Will continue to follow as indicated. Brief assessment Supportive Counseling documented in this encounter Plan of Treatment Upcoming Encounters Date Type Department Care Team (Late st Contact Info) Description 12/08/2023 3:30 PM EDT Office Visit Hematology/Oncology at [address] [phone] Chase Mckay MD [facility] [address] [place] [address] documented as of this encounter Visit Diagnoses Not on filedocumented in this encounter Care Teams Assistant Clinical Director Relationship Specialty Start Date End Date Eren Shah DNP PCP - General Family Medicine 03/20/21 06/10/22 documented as of this encounter
--- OUTSIDE RECORDS SUMMARY | 2023-11-21 16:00 | XMS_ITS | Encounter Summary ---
Author Organization [facility] [place] [address] Care Team Providers Care Plaster Machine Operator Name Role Phone Eren Shah CHELSEA Primary Care Provider [phone] Reason for Visit * Reason Comments Chemotherapy C7D1 Pebrolizumab * Treatment/Therapy Plan Authorization (Routine) - Closed Specialty Diagnoses / Procedures Referred By Contac t Referred To Contact Hematology and Oncology Diagnoses Metastatic urothelial carcinoma Abnormal thyroid function test Procedures [id number] Jose Barnhart MD [address] [place] [address] DR HEMATOLOGY [place] [address] Jose Lange MD [address] [place] [address] DR HEMATOLOGY [place] [address] Referral ID Status Reason Start Date Expiration Date Visits Re quested Visits Authorized [id number] Closed 04/28/2022 06/24/2023 99 99 Encounter Details Date Type Department Care Team (Late st Contact Info) Description 08/28/2021 9:30 AM EDT Infusion Hematology Oncology at [address] [phone] Metastatic urothelial carcinoma; Abnormal [...] Progress Notes * Hodan Jean RN - 08/28/2021 9:30 AM EDT INFUSION THERAPY ADMINISTRATION NOTES DIAGNOSIS: Urothelial cancer CYCLE #7: Day 1 REASON FOR VISIT: Pembrolizumab SUBJECTIVE: Barb offers no complaints. OBJECTIVE: VSS. Weight stable. Seen by provider. Ready to treat. LAB DATA: WBC 10.77, HGB 11.7, HCT 37.7, PLT- lab unable to assess due to platelet aggregation (no holds for treatment), ANC 6.84, BUN 21, Cr 1.5, TSH 3.28, FT4 0.88 IV ACCESS: Mediport accessed at [facility] for labs, brisk blood return. Pre [...] PM EDT Office Visit Hematology/Oncology at [address] [phone] Chase Mckay MD [facility] DR HEMAT[place] [address] documented as of this encounter Visit Diagnoses [...] 500 Units, Intravenous, ONCE PRN, Starting on Fri08/28/21 at 0926, Until Fri08/28/21 at 1304, Line Care, Refer to Intravenous (IV) Procedure: Accessing Implanted Vascular Access Devices (174) procedure and/or Intravenous (IV) Job Aid: Adult Flushing & Catheter Care (3012) job aid for additional information regarding guidelines and administration., Routine Given 08/28/2021 10:52 AM EDT 500 Units pembrolizumab (Keytruda) 200 mg in sodium chloride 0.9% 108 mL infusion 200 mg, Intravenous, ONCE, 1 dose, On Fri08/28/21 at 1045, Administer over 30 Minutes, Flush line with NS after each dose., This agent is restricted to outpatient use. Is this drug being given as an outpatient? Yes New Bag 08/28/2021 10:17 AM EDT 200 mg 216 mL/hr sodium chloride 0.9 % (flush) (BD PosiFlush Normal Saline 0.9) flush 5-20 mL 5-20 mL, Intravenous, EVERY 1 MIN PRN, Starting on Fri08/28/21 at 0926, Until Fri08/28/21 at 1304, Line Care, Flush pertains to all indwelling lines. Flush per protocol found in the job aid using the link provided on this medication record. Refer to Intravenous (IV) Job Aid: Adult Flushing & Catheter Care (6803) job aid for additional information regarding guidelines and administration., Routine Given 08/28/2021 10:52 AM EDT 20 mLs sodium chloride 0.9% infusion 100 mL/hr, Intravenous, CONTINUOUS, Starting on Fri08/28/21 at 0945, Until Fri08/28/21 at 1304 New Bag 08/28/2021 10:13 AM EDT 100 mL/hr 100 mL/hr documented in this encounter Care Teams Plaster Machine Operator Relationship Specialty Start Date End Date Eren Shah DNP PCP - General Family Medicine 03/20/21 06/10/22 documented as of this encounter
--- OUTSIDE RECORDS SUMMARY | 2023-11-21 16:00 | XMS_ITS | Encounter Summary ---
Author Organization [facility] Address [facility] [place] [address] Care Team Providers Care Ornamental Brick Installer Name Role Phone Eren Shah DNP Primary Care Provider [phone] Encounter Details Date Type Department Care Team (Late st Contact Info) Description 07/12/2021 Orders Only Hematology/Oncology at [address] [phone] Abena Ogden, RN Metastatic urothelial [...] PM EDT Office Visit Hematology/Oncology at [address] [phone] Chase Mckay MD [facility] [place] [address] documented as of this encounter Results * (ABNORMAL) Creatinine (07/13/2021 3:00 PM EDT) Creatinine 1.54(H) 0.70 - 1.20 mg/dL [facility] Estimated GFR 34(L) >=60 mL/min/1. 73 m?? [facility] Comment: This patient? s estimated [...] In Lab Abena Ogden RN CHEMISTRY ORDERABLES [facility] [place] [address] documented in this encounter Visit Diagnoses Diagnosis Metastatic urothelial carcinoma Secondary malignant neoplasm of other urinary organs documented in this encounter Care Teams Ornamental Brick Installer Relationship Specialty Start Date End Date Eren Shah DNP PCP - General Family Medicine 03/20/21 06/10/22 documented as of this encounter
--- OUTSIDE RECORDS SUMMARY | 2023-11-21 16:00 | XMS_ITS | Encounter Summary ---
Author Organization [facility] Address [facility] [place] [address] Care Team Providers Care Still Operator Helper Name Role Phone Eren Shah DNP Primary Care Provider Encounter Details Date Type Department Care Team (Late st Contact Info) Description 08/28/2021 9:00 AM EDT Office Visit Hematology/Oncology at [address] [phone] Jose Lange MD [facility] DR HEMATOLOGY [place] [address] Abena Ogden, RN Metastatic urothelial carcinoma; Abnormal [...] Sign Reading Time Taken Comments Blood Pressure 141/73 08/28/2021 8:52 AM EDT Pulse 86 08/28/2021 8:52 AM EDT Temperature 36.3 ??C (97.3 ??F) 08/28/2021 8:52 AM ED T Respiratory Rate 18 08/28/2021 8:52 AM EDT Oxygen Saturation 99% 08/28/2021 8:52 AM EDT Inhaled Oxygen Concentration - - Weight 63.7 kg (140 lb 6.4 oz) 08/28/2021 8:52 A M EDT Height 163.8 cm (5' 4.49) 08/28/2021 8:52 AM ED T Body Mass Index 23.74 08/28/2021 8:52 AM EDT documented in this encounter Progress Notes * Jose Lange MD - 08/28/2021 9:00 AM EDT Images from the original note were not included. Hematology & Medical Oncology [address] [address] Barb returns today to continue [...] distinct lung primary. She was seen by faculty administrator , who recommended rigid bronchoscopy withattempts to [...] HTN. She wasdischarged home on 05/01/21 Interval history(08/28/21): Ms. Bullard is in clinic for follow-up of bladder cancer, pembrolizumab infusion and pembrolizumab infusion. Overall she is feeling well today. No pain. Denies any headaches, vision changes, trouble swallowing, cough or diarrhea. Bowel movements are regular. Intermittently bl ood-tinged urine in nephrostomy bag.. She states her breathing is much better- she goes up and downthe stairs without being short of breath.o other focal complaints today. PMH: No interval changes since last visit 04/26/21-05/01/21 admission to [facility] with pneumonia, Pulmonary hypertension/CHF, BRITNI 04/16/2021 nephrostomy catheter exchange 04/04/21 bronchoscopy and tumor debulking- endobronchial biopsies positive for adenocarcinoma of lung origin Social History: 94-dioz-vyke smoking history quit 6 years ago, does not drink alcohol, used to liveindependently, but currently moved to her daughters house. Family History: Brother had liver cancer, mother had leukemia, maternal aunt had colon cancer in cousin had bladder cancer Allergies: No Known Allergies Medications: Your Medications Accurate as of August 28, 2021 9:07 AM. If you have any questions, ask [...] axillary nodes normal Neurologic: Normal Vitals BP 141/73 (Patient Position: Sitting) Pulse 86 Temp 36.3 ??C (97.3 ??F) (Temporal) Resp 18 Ht 163.8 cm (5' 4.49) Wt 63.7 kg (140 lb 6.4 oz) SpO2 99% BMI 23.74 kg/m?? Pathology: Molecular pathology KRAS p.G12C c.34G>T [...] The assay was performed according to the stitcher around's ??instructions using Anti-PD-L1 (22C3, pharmDX) antibody. Electronically signed by: ?Herbert Ford MD Verified: ??04/11/2021 8:14 ?? Pathologist Performed at: ??-[facility], [place], [place] ? Surgical Pathology DIAGNOSIS A - Lung, ??left lower lobe mass, debulking: ?? - Adenocarcinoma, consistent with lung primary. Electronically signed by: ?Sana Dowell MD Verified: ??04/06/2021 11:16 ??Pathologist Performed at: ??-[facility], [place], [place] DISCUSSION Sections show an invasive, predominantly [...] propria. - No muscularis propria identified. Labs: 08/28/2021 BUN 21, creatinine 1.5, calcium 8.9, TB 0.7, AST 13, ALT 12, alkaline phosphatase 76, total protein 8.3, albumin 3.1, TSH 3.28, free T4 0.88, WBC 10.77, hemoglobin 11.7, platelet countpending, ANC 6.84, 08/07/21 iron 27, TIBC 263, [...] of presumably metastatic urothelial carcinoma which include [place] based chemotherapy versus immunotherapy. Due to her [...] We will continue current management with pembrolizumab 08/28/21 Barb is doing well clinically. No notable side effects of pembrolizumab force exception of mild skin rash. We will continue pembrolizumab. Tentative plan to restage her with PET scan upon completion of 10 cycles of pembrolizumab treatment She was seen by Dr. Mckay lwith [...] and iron, TIBC. Plan: 1. Proceed with C7 Pembrolizumab today 2. Next visit with CBC,CMP, [...] PM EDT Office Visit Hematology/Oncology at [address] [phone] Chase Mckay MD [facility] DR HEMATOLOGY [place] [address] documented as of this encounter Visit Diagnoses Diagnosis Metastatic urothelial carcinoma Secondary malignant neoplasm of other urinary organs Abnormal thyroid function test Nonspecific abnormal results of thyroid function study Primary lung adenocarcinoma, left documented in this encounter Care Teams Still Operator Helper Relationship Specialty Start Date End Date Eren Shah DNP PCP - General Family Medicine 03/20/21 06/10/22 documented as of this encounter
--- OUTSIDE RECORDS SUMMARY | 2023-11-21 16:01 | XMS_ITS | Encounter Summary ---
Author Organization [facility] [place] [address] Care Team Providers Care Director Of Staff Development Name Role Phone Eren Shah CHELSEA Primary Care Provider [phone] Reason for Visit * Diagnostic Test (Emergency) - Closed Specialty Diagnoses / Procedures Referred By Contjoslyn t Referred To Contact Radiology Diagnoses Lung mass Procedures NM PET CT Skull Base to Mid-thigh Alonzo Cevallos MD [facility] [place] [address] [facility] [place] [address] Referral ID Status Reason Start Date Expiration Date V isits Requested Visits Authorized [id number] Closed Specialty Service Requested 02/20/2021 08/21/2022 1 1 Encounter Details Date Type Department Care Team (Latest Contact Info) Description 03/20/2021 10:02 AM EST - 03/20/2021 11:59 PM [facility] Hospital Encounter [place] [address] Alonzo Cevallos MD [facility] [address] Discharge Disposition: Home Social History Tobacco Use Types Packs/Day Years Used Date Smoking Tobacco: Former Cigarettes Q uit: 07/04/2014 Smokeless Tobacco: Never Sex and Gender Information Value Date Recorded Sex Assigned at Not on file Gender Identity Not on file Sexual Orientation Not on file documented as of this encounter Medications at Time of Discharge Medication Sig Dispensed Refills Start Date End Date ferrous sulfate EC 325 mg (65 mg [...] PM EDT Office Visit Hematology/Oncology at [address] [phone] Chase Mckay MD [facility] [place] [address] documented as of this encounter Procedures Procedure Name Priority Date/Time Associated Diagnosis Comments NM PET CT SKULL BASE TO MID-THIGH ([facility]) STAT 03/20/2021 12:59 PM EST Lung mass POCT GLUCOSE Routine 03/20/2021 10:21 AM EST documented in this encounter Results * POCT Glucose (03/20/2021 10:21 AM EST) POC Glucose 90 65 - 199 mg/dL [facility] Comment: Supplemental ranges: <140 mg/dL before meals <180 mg/dL all other times of the day Blood 03/20/2021 10:2 1 AM EST 03/20/2021 10:21 AM EST Alonzo Cevallos MD POINT OF CARE TEST O RDERABLES [facility] [place] [address] documented in this encounter Visit Diagnoses Not on filedocumented in this encounter Care Teams Director Of Staff Development Relationship Specialty Start Date End Date Eren Shah DNP PCP - General Family Medicine 03/20/21 06/10/22 documented as of this encounter
--- OUTSIDE RECORDS SUMMARY | 2023-11-21 16:01 | XMS_ITS | Encounter Summary ---
Author Organization [facility] [place] [address] Care Team Providers Care Still Operator Helper Name Role Phone None Primary Care Provider Unavailabl e Encounter Details Date Type Department Care Team (Late st Contact Info) Description 03/01/2021 Telephone [place] [address] Oralia Null Social History Tobacco Use Types Packs/Day Years [...] PM EDT Office Visit Hematology/Oncology at [address] [phone] Chase Mckay MD [facility] DR [place]AT[place]Y [place] [address] documented as of this encounter Visit Diagnoses Not on filedocumented in this encounter Care Teams Still Operator Helper Relationship Specialty Start Date End Date None None PCP - General 02/20/21 03/19/21 documented as of this encounter
--- OUTSIDE RECORDS SUMMARY | 2023-11-21 16:01 | XMS_ITS | Encounter Summary ---
Author Organization [facility] Address [facility] [place] [address] Care Team Providers Care Prototype Carpenter Name Role Phone Eren Shah DNP Primary Care Provider Encounter Details Date Type Department Care Team (Late st Contact Info) Description 04/04/2021 1:00 PM EST - 04/04/2021 3:25 PM EST Surgery [place] [phone] BackerAlonzo MD [facility] [address] OBSTETRICS [place] [address] BRONCH, W ENDOBRONCHIAL ULTRASOUND (EBUS) GUIDED SAMPLING, 3+ NODES (WRVU 4.96) Social History Tobacco Use Types Packs/Day Years [...] Sign Reading Time Taken Comments Blood Pressure 113/66 04/04/2021 2:45 PM EST Pulse 113 04/04/2021 2:16 PM EST Temperature 36.1 ??C (97 ??F) 04/04/2021 2:16 PM EST Respiratory Rate 16 04/04/2021 2:45 PM EST Oxygen Saturation 93% 04/04/2021 2:45 PM EST Inhaled Oxygen Concentration - - Weight 64.4 kg (141 lb 15.6 oz) 021 12:20 PM EST Height 163.8 cm (5' 4.49) 04/04/2021 1 2:20 PM EST Body Mass Index 24 04/04/2021 12:20 PM EST documented in this encounter Discharge Instructions * Patient Instructions* Alonzo Cevallos MD - 04/04/2021 2:03 PM EST Post-bronchoscopy patient instruction: ??? Your procedure (bronchoscopy with lymph node and lung biopsies and tumor removal from the left lower lobe) was completed successfully today (04/04/2021) by Dr. Alonzo Cevallos. ??? I have prescribed an antibiotic course (Augmentin) to [facility] in [place] ??? We will be in contact with you to discuss your results as they return over the coming 3-5 business days. ??? You may experience low grade fevers over the next 48 hours. ??? You may cough up a small amount of blood. This is normal. ??? You may have a sore throat, chest discomfort, hoarse voice, or have a tickle in your throat or a dry cough for a day or two. This is normal and usually gets better quickly. Using cough drops or gargling with warm salt water may help. ??? Call our office immediately or present to the nearest emergency room if you develop shortness of breath, pain in your chest, coughing up large amounts of blood (about 1-2 tablespoons), or fever/chills last longer than 48 hours. ??? If you have any questions, please call our office at . There is someone salesperson household appliances to speak with 18/11. Alonzo Cevallos MD, 04/04/2021, 2:03 PM Interventional Pulmonology Section of Pulmonary & Critical Care documented in this encounter Medications at Time of Discharge Medication Sig Dispensed Refills Start Date End Date amoxicillin-clavulana te (Augmentin) 875-125 mg Tablet Take 1 tablet by mouth 2 times daily for 7 days. 14 tablet 04/04/2021 04/11/2021 ferrous sulfate EC 325 mg (65 mg iron) Tablet, Delayed Release (E.C.) Take 325 mg by mouth every other day. 02/25/2021 01/22/2022 polyethylene glycoL (Miralax) 17 gram/dose Powder DISSOLVE ONE TEASPOONFUL IN WATER AND DRINK THREE TIMES A DAY 03/13/2021 07/17/2021 documented as of this encounter H&P Notes * Alonzo Cevallos MD - 04/03/2021 7:04 PM EST Interventional Pulmonology Pre-Procedure History & Physical SECTION OF PULMONARY/CRITICAL CARE MEDICIE Procedure: Rigid bronchoscopy, biopsies, tissue/tumor debulking, possible airway dilation, possiblestent placement Reason for procedure: Lung mass and Central airway obstruction See last note from Dr. Sotelo. PHYSICAL EXAM: No data found. Mental Status: Alert and oriented x3 Airway examination: Feasible Pulmonary: Clear to ausculation bilaterally CV: RRR, no murmurs or gallops ASA Grade: ASA III (Patient has severe systemic disease that is not incapacitating) Assessment & Plan: ?? Consent to be signed ?? Proceed with procedure as stated Alonzo Cevallos MD, 04/03/2021, 7:04 PM Interventional Pulmonology Section of Pulmonary & Critical Care Pager: [phone] documented in this encounter Miscellaneous Notes * Op Note - Alonzo Cevallos MD - 04/04/2021 1:06 PM EST Images from the original note were not included. INTERVENTIONAL PULMONOLOGY PROCEDURE NOTE SECTION OF PULMONARY & CRITICAL CARE MEDICINE Patient Name: Barb Rey Patient : 1950 Procedure Date: 04/04/2021 Procedure(s): A flexible and rigid bronchoscopy Airway examination EBUS-TBNA (4 sites(s)) Therapeutic suctioning Tissue/tumor debulking Procedure Location: ICU (bedside) Indication: Central airway obstruction and Lung mass Attending(s) of Record: Alonzo Cevallos MD Others Present: None Medications: General Anesthesia - See anesthesia flowsheet for details Sedation Time: Per anesthesia care provider Time Out: Performed The patient's medical record has been reviewed. The indication for the procedure was reviewed. The necessary history and physical examination was performed and reviewed. The risks, benefits and alternatives of the procedure were discussed with the patient in detail and she had the opportunity to ask questions. I discussed in particular the potential complications including risks of minor or life-threatening bleeding and/or infection, hemoptysis, fever, respiratory failure, voice hoarseness, pneumothorax, and discomfort. Sedation risks were also discussed including abnormal heart rhythms, low blood pressure, and respiratory failure. All questions were answered to the best of my ability. Informed consent was obtained. The proposed procedure and the patient's identification were verified prior to the procedure by the physician and the nurse. After clinical evaluation and reviewing the indication, risks, alternatives and benefits of the procedure the patient was deemed to be in satisfactory condition to undergo the procedure. The patient was assessed for the adequacy for the procedure and to receive medications. Mental Status: Alert and oriented x3 Airway examination: Feasible Pulmonary: Bilateral breath sounds CV: RRR ASA Grade: ASA III (Patient has severe systemic disease that is not incapacitating) Procedure Descriptions: Airway Examination: An Olympus P190 and [id number] flexible bronchoscope and Oscar Storz 12 mm/43 cm rigid bronchoscope was used for the procedure. The rigid bronchoscope was inserted into the mouth. The uvula, epiglottis, and vocal cords were observed to be within normal limits. The bevel of the scope was rotated to 90 degrees while passing between the vocal cords and into the trachea. Jet ventilation was initiated and the oropharynx packed. A complete airway examination was performed from the distal trachea to the subsegmental level in each lobe of both lungs. Pertinent findings include exophytic, fungating tumor causing 100% obstruction of the left lower lobe. The tumor is somewhat friable. The P190 bronchoscope could be advanced past the tumor and the basilar segments of the left lower lobe are visualized and are patent. Following tumor debulking the left lower lobe is now patent; the superior segment of the left lower lobe is not visualized. EBUS-TBNA (4 lymph node stations): The Olympus EBUS ([id number]) scope was inserted, lymph node inspection undertaken and transbronchial needle aspiration obtained from the following stations using the Olympus ViziShot-1 22 gauge TBNA needle: 1) Station 11Rs(superior) (small/difficulty to biopsy) with 3 passes obtained with JAD absent. 2) Station 4R (small/deep and difficult to biopsy) with 3 passes obtained with JAD present. Blood and/or respiratory epithelium identified. 3) Station 7 with 4 passes obtained with JAD present. Blood and/or respiratory epithelium identified. 4) Station 4L with 4 passes obtained with JAD present. Blood and/or respiratory epithelium identified. Note, all medi astinal, hilar, lobar and segmental stations are evaluated during the procedure and those not listed were not biopsied due to small lymph node diameter, positive JAD on higher anthony staging, alternative diagnosis or inability to continue with the procedure. Tumor/Tissue Debulking (46294): The left lower lobe was accessed and tumor/tissue debulking was performed using 7F ERBE APC straight probe. This was utilized on the pulsed APC mode/effect #2 (high frequency/low energy per pulse/more superficial depth effect) at a power of 15 kraus . Application dura tions were limited to 1-2 second increments. Argon gas flow was maintained at <1 L/min. and 2.4 mm [id number] flexible single use cryoprobe. Hemostasis and patency of the airway was achieved post-debulking. Topical epinephrine was administered. Topical cold saline was administered. Therapeutic Suctioning (07649): At least 15-20 min of operative time was spent clearing out the airway of debris, blood and/or secretions prior to or during the intervention. Any disposable equipment was visually inspected and deemed to be intact immediately post procedure. Estimated Blood Loss: 15 mL Complications: None Relevant Pictures Fungating, exophytic/fungating tumor obstructing the LLL bronchus Cryo-debulking of LLL endobronchial tumor The left lower lobe is now patent s/p tumor debulking Recommendations: ??? Successful rigid bronchoscopy, airway examination, EBUS-TBNA (4 sites) and tissue/tumor debulking of the LLL ??? Await pending results in the next 3-5 business days ??? A post-procedural chest radiograph has been ordered ??? A course of Augmentin was prescribed for post-obstructive pneumonia Alonzo Cevallos MD, 04/04/2021, 2:05 PM Interventional Pulmonology Section of Pulmonary & Critical Care Pager: [phone] documented in this encounter Plan of Treatment Upcoming Encounters Date Type Department Care Team (Late st Contact Info) Description 12/08/2023 3:30 PM EDT Office Visit Hematology/Oncology at [address] [phone] Chase Mckay MD [facility] [address] [place] [address] documented as of this encounter Procedures Procedure Name Priority Date/Time Associated Diagnosis Comments XR CHEST ONE VIEW STAT 04/04/2021 3:0 3 PM EST SPECIMEN TO PATHOLOGY Routine 04/04/2021 1:54 PM EST SOLID TUMOR NGS PANEL Routine 04/04/2021 1:52 PM EST SURGICAL PATHOLOGY REPORT Routine 04/04/2021 1:52 PM EST NON-CARGO ROUTER FINAL REPORT Routine 04/04/2021 1:41 PM EST NON-CARGO ROUTER FINAL REPORT Routine 04/04/2021 1:41 PM EST NON-CARGO ROUTER FINAL REPORT Routine 04/04/2021 1:41 PM EST NON-CARGO ROUTER FINAL REPORT Routine 04/04/2021 1:41 PM EST CYTOPATHOLOGY NON-GYNECOLOGICAL Routine 04/04/2021 1:41 PM EST CYTOPATHOLOGY NON-GYNECOLOGICAL Routine 04/04/2021 1:41 PM EST CYTOPATHOLOGY NON-GYNECOLOGICAL Routine 04/04/2021 1:41 PM EST CYTOPATHOLOGY NON-GYNECOLOGICAL Routine 04/04/2021 1:41 PM EST CYTOPATHOLOGY NON-GYNECOLOGICAL Routine 04/04/2021 1:12 PM EST Bronchoscopy, Diagnostic W Lavage ([id number]) Yes 04/04/2021 12:49 PM EST Abnormal chest CT Airway obstruction Lung mass Mediastinal adenopathy [facility] Ebus Guided Sampl 3/> Node Station/Strux ([id number]) Yes 04/04/2021 12:49 PM EST Abnormal chest CT Airway obstruction Lung mass Mediastinal adenopathy documented in this encounter Results * XR Chest One View (04/04/2021 3:03 PM EST) Anatomical Region Laterality Modality Chest N/A Digital Radiogra phy Impressions 04/04/2021 3:14 PM EST 1. ??No pneumothorax 2. ??Bilateral pleural effusions large on the LEFT is 3. ??Unchanged Peripheral groundglass opacities in RIGHT mid to lower lung are nonspecific. 4. ??LEFT lower lobe retrocardiac opacities represent any combinations of effusion, atelectasis or residual mass lesion. Thank you for letting us participate in the care of this patient. ??If you are a health care provider and have any questions regarding this report, please contact the number below. ??For patients who have questions please contact the health residential caregiver that requested your imaging first. ? Electronically signed by: Courtney Mcfadden MD, [facility] ([phone]), at 04/04/2021 3:14 PM Narrative 04/04/2021 3:14 PM EST EXAMINATION: XR CHEST ONE VIEW CLINICAL HISTORY: s/p tumor debulking LLL endobronchial tumor; reassess for re-aeration of LLL, , entered by ordering service TECHNIQUE: Portable chest, 1 views COMPARISON: PET CT, March 20, 2021 FINDINGS: RIGHT central venous catheter-tip at lower SVC. Pleura: No pneumothorax, Lateral pleural effusions large on the LEFT obscuring LEFT diaphragm and CP angle. Lungs: RIGHT lung Pleural-based lateral groundglass opacities at RIGHT mid and lower lung are similar to PET/CT. LEFT lung Increased retrocardiac opacity at LEFT lung base, obscuring diaphragm and CP angle. Cardiomediastinal contour: Normal Bones: no acute fracture seen Procedure Note Courtney Mcfadden MD - 04/04/2021 EXAMINATION: XR CHEST ONE VIEW CLINICAL HISTORY: s/p tumor debulking LLL endobronchial tumor; reassessfor re-aeration of LLL, , entered by ordering service TECHNIQUE: Portable chest, 1 views COMPARISON: PET CT, March 20, 2021 FINDINGS: RIGHT central venous catheter-tip at lower SVC. Pleura: No pneumothorax, Lateral pleural effusions large on the LEFT obscuring LEFT diaphragm andCP angle. Lungs: RIGHT lung Pleural-based lateral groundglass opacities at RIGHT mid and lower lungare similar to PET/CT. LEFT lung Increased retrocardiac opacity at LEFT lung base, obscuring diaphragm andCP angle. Cardiomediastinal contour: Normal Bones: no acute fracture seen IMPRESSION 1. No pneumothorax 2. Bilateral pleural effusions large on the LEFT is 3. Unchanged Peripheral groundglass opacities in RIGHT mid to lower lungare nonspecific. 4. LEFT lower lobe retrocardiac opacities represent any combinations of effusion, atelectasis or residual mass lesion. Thank you for letting us participate in the care of this patient. If youare a health care provider and have any questions regarding this report,please contact the number below. For patients who have questions please contactthe health residential caregiver that requested your imaging first. Alonzo Cevallos MD IMG DX ORDERABLES * Specimen to Pathology (04/04/2021 1:54 PM EST) AP Specimen 04/04/2021 1:54 PM EST 04/04/2021 1:54 PM EST Narrative [facility] - 04/04/2021 1:54 PM EST Specimen requisition ordered. ??Separate Pathology report to follow Alonzo Cevallos MD PATHOLOGY/CYTOLOGY O RDERABLES [facility] [place] [address] * Surgical Pathology Report (04/04/2021 1:52 PM EST) FINAL DIAGNOSIS (AP) [id number] ? Location: [facility]; [facility]; A The signing pathologist has (i) examined the relevant preparation(s) for the specimen(s) and (ii) rendered or confirmed the diagnosis(es). . ? Addendum ADDENDUM DISCUSSION PD-L1 Immunohistochemistry Study Tissue: ??Lung, left lower lobe mass Diagnosis: Adenocarcinoma, consistent with lung primary Tumor Proportion Score (TPS): ?? 90% Interpretation Table: PD-L1 assay (22C3 pharmDX) for Keytruda Tumor Proportion Score (TPS): ? <1% ?PD-L1 Negative ? >=1% ? PD-L1 Expression ? >=50% ?PD-L1 High Expression Immunohistochemical assay was performed on paraffin-embedded tissue sections fixed in 10% neutral buffered formalin for 6-72 hours using the polymer system technique with appropriate controls. The assay was performed according to the bookbinder apprentice's instructions using Anti-PD-L1 (22C3, pharmDX) antibody. Electronically signed by: ?Herbert Ford MD Verified: ??04/11/2021 8:14 ?? Pathologist Performed at: ??-[facility] Dept. of Pathology, [place], [place] ?Surgical Pathology DIAGNOSIS A - Lung, ??left lower lobe mass, debulking: ??- Adenocarcinoma, consistent with lung primary. Electronically signed by: ?Sana Dowell MD Verified: ??04/06/2021 11:16 ??Pathologist Performed at: ??-[facility] Dept. of Pathology, [place], [place] DISCUSSION Sections show an invasive, predominantly [...] are consistent with a lung primary adenocarcinoma. PD-L1 immunohistochemistry and molecular panel are pending. ADDITIONAL STUDIES Immunohistochemistry Studies: Formalin-fixed, paraffin-embedded tissue sections are studied using the polymer technique with appropriate positive and negative controls. ?These IHC studies provide the pathologist with adjunctive diagnostic information. Antibody specificity has been verified by testing antibodies on a series of in-house tissues with known immunohistochemical performance characteristics. The clinical interpretation of any antibody positive staining or its absence is evaluated within the context of . ADDITIONAL STUDIES clinical presentation, morphology, histopathological criteria and other diagnostic tests. Block ? Antibody ?Result (Positive/Negative) A1 ? TTF-1 (Dako) ?Positive (strong, diffuse) A1 ? p40 ? Scattered cells stain positively A1 ? GATA3 ? Negative A1 ? CK5 ? Negative Special Stains: Formalin-fixed, paraffin-embedded tissue sections are studied with appropriate positive controls. Block ? Special Stain ? Result (Positive/Negative) A1 ?Mucicarmine ? Rare cells positive for intracellular mucin SPECIMEN(S) SUBMITTED A - Lung, ??left lower lobe mass, debulking CLINICAL INFORMATION Lung mass, airway obstruction, mediastinal adenopathy SPECIMEN PROCESSING A - Labeled/Fixative: Left lower lobe mass, formalin. Quantity/Size: Single, 1.5 x 0.7 cm diameter. Tissue Description: Rubbery, cylindrical red to garcia-brown soft tissue with adherent clotted blood. Sections/Processing: Trisected and entirely submitted in 1 cassette labeled A1. ??shb 04/11/2021 8:14 AM EST [facility] 04/04/2021 1:52 PM EST Alonzo Cevallos MD PATHOLOGY/CYTOLOGY O RDERABLES [facility] [place] [address] * Solid Tumor NGS Panel (04/04/2021 1:52 PM EST) Tissue 04/04/2021 1:52 PM EST 04/09/2021 12:17 PM EST Narrative Resulting Agency Comment Spec In Lab Alonzo Cevallos MD PATHOLOGY/CYTOLOGY O RDERABLES [facility] [place] [address] * Non-Senior Cost Accountant Final Report (04/04/2021 1:41 PM EST) Diagnosis Discussion [id number] ? Location: [facility]; [facility]; A The signing pathologist has (i) examined the relevant preparation(s) for the specimen(s) and (ii) rendered or confirmed the diagnosis(es). . ? Non-Senior Cost Accountant Final DIAGNOSIS Negative for Malignancy Electronically signed by: ?Keven Pelayo MD Verified: ??04/06/2021 17:47 ??Pathologist Performed at: ??-[facility] Dept. of Pathology, [place], [place] DISCUSSION Lymph node, station 11R (EBUS-guided FNA): Scant fragments of lymphoid tissue present, ?compatible with focal lymph node sampling. No metastatic carcinoma seen. CLINICAL INFORMATION Specimen Source : Lymph node, station 11R (EBUS-guided FNA) Pertinent Clinical Data and Significant Therapy: Urothelial cancer and lung mass Clinical Impression : Metastatic urothelial versus primary lung Pertinent Radiologic Findings ??: (not provided) Gross Description: Received ??in Formalin approximately 50 mL total volume of ?? cloudy, red fluid, with clots. Total Preparation: Cell Block 1. 04/06/2021 5:47 PM EST [facility] LYMPH NODE SPECIMEN / Unknown 04/04/2021 1:41 PM EST 04/04/2021 1:41 PM EST Alonzo Cevallos MD PATHOLOGY/CYTOLOGY O COSMO [facility] [place] [address] * Non-Senior Cost Accountant Final Report (04/04/2021 1:41 PM EST) Diagnosis Discussion [id number] ? Location: [facility]; [facility]; A The signing pathologist has (i) examined the relevant preparation(s) for the specimen(s) and (ii) rendered or confirmed the diagnosis(es). . ? Non-Senior Cost Accountant Final DIAGNOSIS Negative for Malignancy Electronically signed by: ?Pierce CAMARGO, Keven Verified: ??04/06/2021 17:46 ??Pathologist Performed at: ??-[facility] Dept. of Pathology, [place], [place] DISCUSSION Lymph node, station 4L (EBUS-guided FNA): Scant fragments of lymphoid tissue present, compatible with focal lymph node sampling. No metastatic carcinoma seen. Cell block was examined. CLINICAL INFORMATION Specimen Source : Lymph node, station 4L (EBUS-guided FNA, assisted) Pertinent Clinical Data and Significant Therapy: Urothelial cancer and lung mass Clinical Impression : Metastatic urothelial versus primary lung Pertinent Radiologic Findings ??: (not provided) Gross Description: Received ??in Formalin approximately 50 mL total volume of ?? cloudy, red fluid, with clots. Total Preparation: Diff Quik 1; Pap Stain 1; Cell Block 1. 04/06/2021 5:46 PM EST [facility] LYMPH NODE SPECIMEN / Unknown 04/04/2021 1:41 PM EST 04/04/2021 1:41 PM EST Alonzo Cevallos MD PATHOLOGY/CYTOLOGY O COSMO Performing Organization Address [facility]/ZIP Co de Phone Number [facility] [place] [address] * Non-Senior Cost Accountant Final Report (04/04/2021 1:41 PM EST) Diagnosis Discussion [id number] ? Location: [facility]; [facility]; A The signing pathologist has (i) examined the relevant preparation(s) for the specimen(s) and (ii) rendered or confirmed the diagnosis(es). . ? Non-Senior Cost Accountant Final DIAGNOSIS Negative for Malignancy Electronically signed by: ?Pierce CAMARGO, Keven Verified: ??04/06/2021 17:40 ??Pathologist Performed at: ??-[facility] Dept. of Pathology, [place], [place] DISCUSSION Lymph node, station 4R (EBUS-guided FNA): Lymphocytes present, consistent with lymph node sampling. No metastatic carcinoma seen. Cell block was examined. ?? Additional deeper levels examined. CLINICAL INFORMATION Specimen Source : Lymph node, station 4R (EBUS-guided FNA, assisted) Pertinent Clinical Data and Significant Therapy: Urothelial cancer and lung mass Clinical Impression : Metastatic urothelial versus primary lung Pertinent Radiologic Findings ??: (not provided) Gross Description: Received ??in Formalin approximately 50 mL total volume of ?? cloudy, red fluid, with clots. Total Preparation: Diff Quik 1; Pap Stain 1; Cell Block 1. 04/06/2021 5:40 PM EST [facility] LYMPH NODE SPECIMEN / Unknown 04/04/2021 1:41 PM EST 04/04/2021 1:41 PM EST Alonzo Cevallos MD PATHOLOGY/CYTOLOGY O COSMO Performing Organization Address [facility]/ZIP Co de Phone Number [facility] [place] [address] * Non-Senior Cost Accountant Final Report (04/04/2021 1:41 PM EST) Diagnosis Discussion [id number] ? Location: [facility]; [facility]; A The signing pathologist has (i) examined the relevant preparation(s) for the specimen(s) and (ii) rendered or confirmed the diagnosis(es). . ? Non-Senior Cost Accountant Final DIAGNOSIS Positive for Malignancy Electronically signed by: ?Keven Pelayo MD Verified: ??04/06/2021 17:35 ??Pathologist Performed at: ??-[facility] Dept. of Pathology, [place], [place] DISCUSSION Lymph node, station 7 (EBUS-guided FNA): Malignant cells present, compatible with metastatic adenocarcinoma (see note). Note: The lesional cells have enlarged, pleomorphic nuclei with prominent nucleoli. The lesional cells are immunoreactive for CK7 and TTF1 (strong, diffuse); they are negative for p40, synaptophysin, and GATA3. In view of the findings in the ??concurrent surgical specimen of ??left lower lobe mass lung ?? debulking ([id number]), the ??immunostain findings in the present case are compatible ?with lung primary. PD-L1 immunohistochemistry and molecular panel are ordered on the ? concurrent surgical specimen ([id number]). --- Immunohistochemistry Studies --- Interpretation: See note. ?Immunohistochemical assays were performed (on paraffin-embedded core biopsy sections fixed in 10% neutral buffered formalin for 6-72 hours) using the polymer technique with appropriate controls. The sections are studied for TTF1, p40, CK7, synaptophysin, and GATA3. These immunohistochemical studies provide ancillary information and are used only in conjunction with standard diagnostic procedures. CLINICAL INFORMATION Specimen Source : Lymph node, station 7 (EBUS-guided FNA, assisted) Pertinent Clinical Data and Significant Therapy: Urothelial cancer and lung mass Clinical Impression : Metastatic urothelial versus primary lung Pertinent Radiologic Findings ??: (not provided) Gross Description: Received ??in Formalin approximately 48 mL total volume of ?? cloudy, red fluid, with clots. Total Preparation: Diff Quik 1; Pap Stain 1; Cell Block 1. 04/06/2021 5:35 PM EST [facility] LYMPH NODE SPECIMEN / Unknown 04/04/2021 1:41 PM EST 04/04/2021 1:41 PM EST Alonzo Cevallos MD PATHOLOGY/CYTOLOGY O COSMO Performing Organization Address [facility]/ZIP Co de Phone Number [facility] [place] [address] * Cytopathology Non-Gynecological (04/04/2021 1:41 PM EST) AP Specimen 04/04/2021 1:41 PM EST 04/04/2021 1:41 PM EST Narrative [facility] - 04/04/2021 1:41 PM EST Specimen requisition ordered. ??Separate Pathology report to follow Alonzo Cevallos MD PATHOLOGY/CYTOLOGY O COSMO Performing Organization Address [facility]/ZIP Co de Phone Number [facility] [place] [address] * Cytopathology Non-Gynecological (04/04/2021 1:41 PM EST) AP Specimen 04/04/2021 1:41 PM EST 04/04/2021 1:41 PM EST Narrative [facility] - 04/04/2021 1:41 PM EST Specimen requisition ordered. ??Separate Pathology report to follow Alonzo Cevallos MD PATHOLOGY/CYTOLOGY O RDERAJASS Performing Organization Address City/[facility]/ZIP Co de Phone Number [facility] [place] [address] * Cytopathology Non-Gynecological (04/04/2021 1:41 PM EST) AP Specimen 04/04/2021 1:41 PM EST 04/04/2021 1:41 PM EST Narrative [facility] - 04/04/2021 1:41 PM EST Specimen requisition ordered. ??Separate Pathology report to follow Alonzo Cevallos MD PATHOLOGY/CYTOLOGY O COSMO Performing Organization Address [facility] [place] [address] * Cytopathology Non-Gynecological (04/04/2021 1:41 PM EST) AP Specimen 04/04/2021 1:41 PM EST 04/04/2021 1:41 PM EST Narrative [facility] - 04/04/2021 1:41 PM EST Specimen requisition ordered. ??Separate Pathology report to follow Alonzo Cevallos MD PATHOLOGY/CYTOLOGY O COSMO Performing Organization Address [facility] [place] [address] * Cytopathology Non-Gynecological (04/04/2021 1:12 PM EST) AP Specimen 04/04/2021 1:12 PM EST 04/04/2021 1:12 PM EST Narrative [facility] - 04/04/2021 1:12 PM EST Specimen requisition ordered. ??Separate Pathology report to follow Alonzo Cevallos MD PATHOLOGY/CYTOLOGY O COSMO Performing Organization Address [facility] [place] [address] documented in this encounter Visit Diagnoses Diagnosis Abnormal chest CT Nonspecific (abnormal) findings on radiological and other examination of other intrathoracic organs Airway obstruction Other diseases of respiratory system, not elsewhere classified Lung mass Swelling, mass, or lump in chest Mediastinal adenopathy Enlargement of lymph nodes documented in this encounter Administered Medications Inactive Administered Medications - up to 3 most recent administrations Medication Order MAR Action Action Date Dose Rate Site lactated ringers infusion 1,000 mL, at 100 mL/hr, Intravenous, CONTINUOUS, Starting on Fri04/04/21 at 1300, Until Fri04/04/21 at 1542, Day of Surgery (Day of Procedure) Restarted 04/04/2021 12:51 PM EST New Bag 04/04/2021 12:39 PM EST 1,000 mLs 100 mL/hr documented in this encounter Active and Recently Administered Medications Times are shown in EST. Continuous Medication Order 04/02/2021 04/03/2021 04/04/2021 lactated ringers infusion (CANCELED) 1,000 mL, at 100 mL/hr, Intravenous, CONTINUOUS, Starting on Fri04/04/21 at 1300, Until Fri04/04/21 at 1542, Day of Surgery (Day of Procedure) 1239 (New Bag - Prov ider: Sonja Avila RN)1250 (Paused - Provider: Kevin Sidhu - Comment: Switch to gravity)1251 (Restarted - Provider: Kevin Sidhu)1421 (Stopped - Provider: Trevon Saldivar CRNA) documented in this encounter Care Teams Prototype Carpenter Relationship Specialty Start Date End Date Eren Shah DNP PCP - General Family Medicine 03/20/21 06/10/22 documented as of this encounter
--- OUTSIDE RECORDS SUMMARY | 2023-11-21 16:01 | XMS_ITS | Encounter Summary ---
Author Organization [facility] [place] [address] Care Team Providers Care Roll Handler Name Role Phone Eren Shah DNP Primary Care Provider Reason for Visit * Reason Comments Flank Pain Encounter Details Date Type Department Care Team (Late st Contact Info) Description 04/08/2021 2:21 AM EST - 04/08/2021 8:04 AM EST [place] [address] Ann Chowdhury MD [facility] [place] [address] Jose Miguel Juárez MD [facility] [place] [address] Leukocytosis, unspecified type (Primary Dx); Pleural effusion; Lung mass Discharge Disposition: Home Social History [...] Sign Reading Time Taken Comments Blood Pressure 122/67 04/08/2021 5:30 AM EST Pulse 83 04/08/2021 5:30 AM EST Temperature 36.4 ??C (97.6 ??F) 04/08/2021 2:27 AM ES T Respiratory Rate 16 04/08/2021 2:27 AM EST Oxygen Saturation 97% 04/08/2021 5:30 AM EST Inhaled Oxygen Concentration - - Weight 63.5 kg (140 lb) 04/08/2021 2:27 AM EST Height - - Body Mass Index 23.67 04/04/2021 12:20 PM EST documented in this encounter Discharge Instructions * Discharge Instructions* Marco Inman MD - 04/08/2021 7:42 AM EST You were seen in the emergency department for flank pain. Fortunately, your history, physical exam,laboratory studies, and imaging are reassuring you are safe for discharge at this time. Your evaluated by urology who felt that you should continue your Augmentin antibiotic until you follow-up with your provider next Friday. The interventional radiology team may wish to expedite your nephrostomy tube exchange. I have discussed your case with the IR team who will contact you on Friday to facilitate follow-up. It is important that you return to the emergency part immediately should your symptoms acutely worsen or if any other concerning symptoms arise. * Attachments The following attachments cannot be sent through Care Everywhere. * WBC: Elevated: General Info (Khmer) documented in this encounter Medications at Time [...] as of this encounter Progress Notes * Clint St MD - 04/08/2021 5:31 AM EST Brief IR Consult Note: I was paged by Dr. Lukas Calderon regarding Barb Bullard who is a 70yo female with a PMHx of metastaticpresumed bladder primary cancer c/b urinary outflow obstruction. She is s/p IR placement of b/l NU on 02/20. She presented to the ED with mild right flank pain, leukocytosis and difficulty flushing her NU's. Urology consulted who reccommended IR consult for possible exchange. On review of today's CT, her NU's are in appropriate position and there is no hydronephrosis. Afterdiscussion with Dr. Calderon, he reports the pt has a chronically elevated WBC (mid 20's), her flank pain has now resolved and the NU's flush forward. Plan: Given her resolved flank pain, appropriately positioned NU's which are able to be flushed, we do not recommend exchange now. She is scheduled for NU exchange with IR in late April, will try to movethat appointment forward if scheduling allows. Remaining care per primary team. Plan discussed with Dr. Nice. Clint St MD Interventional Radiology PGY3 04/08/21 documented in this encounter ED Notes * Marco Inman MD - 04/08/2021 7:43 AM EST ED Resident Follow-up Note: Time of transfer of care: 630AM Care transferred from: Dr. Calderon Condition at time of transfer: stable Clinical Summary: 70 y.o. old female in the process of being evaluated for flank pain. Please see Dr. Calderon's notes for their initial evaluation, assessment and plan. Briefly, from the original HPI Barb Bullard is a 70 y.o. female with PMH significant for metastatic urothelial carcinoma status post bilateral nephrostomy tubes in January who presented to the ED for flank pain. ?? Patient has been suffering from waxing and waning flank pain since bilateral nephrostomy tubes wereplaced in January due to patient's metastatic urothelial carcinoma. Most recent episode of flank pain was earlier this evening. Patient noted decreased urine output from bilateral nephrostomy tubes and was concern for acute obstruction. Left nephrostomy tube spontaneously began draining and her left flank pain is resolved, however she has mild ongoing right-sided flank pain and is concerned right-sided nephrostomy tube has not been draining appropriately. ?? No fevers. No headaches. No vision changes, no cough. No shortness of breath. No rashes. Patient presents to the emergency department with waxing and waning flank pain with correlating decreased nephrostomy tube output. Fortunately, her symptoms are almost completely resolved at the timeof my evaluation. CT abdomen pelvis pursued to rule out nephrostomy tube malfunction. Fortunately, this shows stable exam. On reevaluation, both tubes are draining appropriately and pain is completely resolved. Patient has significantly elevated white count which is slightly increased from her baseline. Outside hospital labs documented below. ?? Labs at [facility] obtained 03/02 show the following Phos 6.7 mg/dL BUN 32 mg/dL Cr 2.3 mg/dL eGFR 21.02 mL/min/1.73m2 Albumin 1.5 g/dL ?? CBC 02/24: WBC measured 22.14 ?? Given elevated white count and significant leukourea and hematuria, urology was engaged. Urology request engagement with interventional radiology given their involvement with nephrostomy tube placement. Interventional radiology plan to expedite possible nephrostomy tube replacement. Urology to evaluate patient later this morning. Care transitioned to onc day team pending final recommendations from urology. Subsequent ED Course: Patient was evaluated by urology who felt that the patient was safe to be discharged home. They recommended the patient continue her already prescribed Augmentin antibiotic therapy until she follows up with her medical oncology team this coming Friday. The patient was discharged home and told that if she experiences any change or increase in her symptoms including any new or worsening abdominal pain, nausea, vomiting, fever, worsening flank pain, or any other concerns do not hesitate to seek immediate medical attention. Final Assessment: Nephrostomy tube complication Final Plan: Discharge home, continue Augmentin, follow-up urine cultures, follow-up with medical oncology, follow-up with interventional radiology Condition at Discharge: stable Marco Inman MD Resident 04/08/21 0745 * Ann Byrne RN - 04/08/2021 6:50 AM EST Pt reports her flank pain is resolved, both nephrology tubes draining well. * Ann Byrne RN - 04/08/2021 6:10 AM EST Pt given ice water. Clear urine draining from left nephrostomy bag. * Ann Byrne RN - 04/08/2021 6:09 AM EST Vale bag changed on left, tubing connection was loose. * Ann Byrne RN - 04/08/2021 3:32 AM EST Pt made the comment, look, the tubes aren't blocked anymore, maybe it was because of the IV fluids. pt reports that she doesn't drink much water. Pt brought to CT scan and returned. Pt requested a bedside commode, she reports having diarrhea from taking PCN. * Ann Chowdhury MD - 04/08/2021 3:28 AM EST Brief Attending Note I cared for the patient with the resident physician. Please see his/her/their note associated with the encounter, for more details. I have reviewed all diagnostic studies personally including labs, imaging studies and EKGs. Please see ED course above for details. Assessment/plan: Medical Decision Making: Briefly, Barb Bullard is a 70 y.o. female who presents with c/f nephrostomy tube clogging ED Course: ED Course as of 04/08/21 0632 Sun Apr 08, 2021 0247 70F with h/o ureteral CA s/p b/l nephrostomy tube and feels like clogging with intermittent flank pain (last episode yesterday, on R, felt like no longer draining). L feels fine, has noticed more drainage out of it. On exam, right sided CVA TTP that was mild, has bilateral nephrostomy tubes C/D/I. She has moist mucous membranes. And abdomen is soft and nontender. [address] Abdomen & Pelvis w Contrast IMPRESSION 1. Bilateral percutaneous nephroureteral catheter appears [...] no contraindications. 5. Other findings as above. ?? 1. Leukocytosis, unspecified type 2. Pleural effusion 3. Lung mass Dispo: Signed out to oncoming provider pending urology recommendations Portions of this note were created with [employer] dictation software. Please excuse small typos and ormisspellings in this note. Ann Chowdhury MD 04/08/21 0632 * CrystalmonishaLukas royal - 04/08/2021 2:43 AM EST ED PROVIDER NOTE Patient: Barb Bullard Age (): 70 y.o. (1950) SUBJECTIVE CC: Chief Complaint Patient presents with ??? Flank Pain HPI: Barb Bullard is a 70 y.o. female with PMH significant for metastatic urothelial carcinoma status post bilateral nephrostomy tubes in January who presented to the ED for flank pain. Patient has been suffering from waxing and waning flank pain since bilateral nephrostomy tubes wereplaced in January due to patient's metastatic urothelial carcinoma. Most recent episode of flank pain was earlier this evening. Patient noted decreased urine output from bilateral nephrostomy tubes and was concern for acute obstruction. Left nephrostomy tube spontaneously began draining and her left flank pain is resolved, however she has mild ongoing right-sided flank pain and is concerned right-sided nephrostomy tube has not been draining appropriately. No fevers. No headaches. No vision changes, no cough. No shortness of breath. No rashes. Hx: PMH, PSH, SH, and FH reviewed. No pertinent changes or recent events. ROS: A 10 point review of systems was performed and was negative aside from pertinent positives listed in HPI. OBJECTIVE VS: BP 122/67 Pulse 83 Temp 36.4 ??C (97.6 ??F) (Oral) Resp 16 Wt 63.5 kg (140 lb) SpO2 97% BMI 23.67 kg/m?? PE: General: This is a well-nourished, well-developed female who appears her stated age. Skin: Color and turgor appropriate. Dressing overlying nephrostomy tubes clean and dry appearing. Head: Atraumatic and normocephalic. Neck: Symmetrical with midline trachea. Eyes: Visual acuity grossly intact. Sclera anicteric. Ears: Hearing grossly intact to normal conversation. Nose: No bleeding or discharge. Chest/Pulmonary: No respiratory distress. Breathing unlabored. Cardiovascular: Warm extremities. Normal rate. Abdomen: Mild right flank pain. No anterior abdominal tenderness. Musculoskeletal: No gross deformities to the extremities. Neurological: Attention, concentration, language, and fund of knowledge are within expected range. Speech is fluent with normal content. Psychiatric: Patient cooperative with appropriate behavior, thought content, and affect. ED Course: ED Course as of 04/08/21 0721 Sun Apr 08, 2021 8876 Urology recommend IR consultation. 0510 IR paged. [id number] IR to review case, will re-engage. 0244 Urology to round on patient. Final recs pending. - Medications and fluid administered: Medications sodium chloride 0.9% 1,000 mL IV bolus ( Intravenous Stopped 04/08/21 0307) iohexoL (Omnipaque) (350 mg/mL) solution 0-200 mL (73 mLs Intravenous Given 04/08/21 0318) - I have reviewed the labs, which are significant for: Leukocytosis, anemia, thrombocytosis, leukourea, hematuria, mild hypokalemia, elevated creatinine Recent Results (from the past 24 hour(s)) Comprehensive metabolic panel (non-fasting) Result Value Ref Range Glucose Lvl 116 65 - 199 mg/dL BUN 23 (H) 8 - 18 mg/dL Creatinine 1.24 (H) 0.70 - 1.20 mg/dL Sodium 137 135 - 145 mmol/L Potassium 3.3 (L) 3.5 - 5.0 mmol/L Chloride 106 98 - 107 mmol/L CO2 19 (L) 22 - 31 mmol/L Anion Gap 12 5 - 15 mmol/L Calcium 9.8 8.5 - 10.5 mg/dL Total Protein 8.3 (H) 6.1 - 8.0 g/dL Albumin 3.2 3.2 - 5.2 g/dL AST 9 0 - 30 unit/L ALT 7 0 - 30 unit/L Alk Phos 85 35 - 105 unit/L Total Bilirubin 0.4 0.2 - 1.3 mg/dL Estimated GFR 44 (L) >=60 mL/min/1.73 m?? Lipase Result Value Ref Range Lipase 14 0 - 60 unit/L Hemogram Result Value Ref Range WBC 30.6 (CRIT) 4.0 - 9.5 x10(3)/mcL RBC 3.92 (L) 4.00 - 5.21 x10(6)/mcL Hemoglobin 9.9 (L) 11.7 - 15.5 g/dL Hematocrit 31.5 (L) 35.7 - 45.8 % MCV 80.4 (L) 82.6 - 94.4 fL MCH 25.3 (L) 27.1 - 32.0 pg MCHC 31.4 (L) 31.7 - 35.0 g/dL Platelets 755 (H) 145 - 357 x10(3)/mcL RDWSD 62.4 (H) 37.0 - 46.0 fL RDWCV 21.7 (H) 11.5 - 14.1 % MPV 8.8 7.6 - 12.9 fL nRBC % Auto 0.0 % nRBC Abs Auto 0.000 0.000 - 0.000 x10(3)/mcL Differential, Automated Result Value Ref Range Neutrophils % 79.3 % Neutr Abs (ANC) 24.24 (H) 1.70 - 6.10 x10(3)/mcL Lymphocytes % 8.8 % Lymphocytes Abs 2.7 0.9 - 3.2 x10(3)/mcL Monocytes % 5.9 % Monocyte Abs 1.8 (H) 0.3 - 0.9 x10(3)/mcL Eosinophils % 4.4 % Eosinophils Abs 1.4 (H) 0.0 - 0.4 x10(3)/mcL Basophils % 0.4 % Basophils Abs 0.1 0.0 - 0.1 x10(3)/mcL Immature Gran % 1.20 % [place] Gran Abs 0.36 (H) 0.00 - 0.04 x10(3)/mcL Gold Tube HOLD Result Value Ref Range Gold Hold Sample in lab. Scan, Peripheral Blood Result Value Ref Range Plat Estimate Increased RBC Morphology Abnormal Microcytes 1-5 /HPF Hypochromia Slight Giant Platelets Less than 1 /HPF Platelet Clumps Present Urinalysis with reflex Culture Specimen: Nephrostomy Urine Result Value Ref Range Glucose UA Negative Negative mg/dL Protein UA >=300 (A) Negative mg/dL Bilirubin UA Negative Negative mg/dL Urobilinogen UA Normal Normal mg/dL pH UA 6.0 5.0 - 8.0 Blood UA Large (A) Negative mg/dL Ketones UA Negative Negative mg/dL Nitrite UA Negative Negative Leukocytes UA Large (A) Negative mcL Appearance UA Turbid (A) Clear Spec [place] UA 1.022 1.005 - 1.030 Color UA Yellow Yellow Culture Reflexed Yes Urinalysis Microscopic Exam Result Value Ref Range RBC UA >100 (H) 0 - 4 /HPF WBC UA >100 (H) 0 - 5 /HPF WBCs Clumping Rare (A) None /HPF Bacteria UA Many (A) None /HPF Yeast [place] UA Moderate (A) None /HPF Yeast Hyph UA Rare (A) None /HPF Squam Epith UA 3 <=4 /HPF Hyaline Cast UA 13 (H) 0 - 2 /LPF CaOx Lara UA Rare (A) None /HPF - I have reviewed the imaging, which is significant for: Stable percutaneous nephroureteral tubes CT Abdomen & Pelvis w Contrast Final Result 1. Bilateral percutaneous nephroureteral catheter appears to [...] no contraindications. 5. Other findings as above. Thank you for letting us participate in the care of this patient. If you are a health care provider and have any questions regarding this report, please contact the number below. For patients who have questions please contact the health foster care case manager that requested your imaging first. Electronically signed by: Geovanna Herman MD, [facility] ([phone]), at 04/08/2021 3:58 AM ASSESSMENT & PLAN MDM: Barb Bullard is a 70 y.o. female with PMH significant for metastatic urothelial carcinoma status post bilateral nephrostomy tubes in January who presented to the ED for flank pain. DDX: Intermittent nephrostomy tube malfunction Patient presents to the emergency department with waxing and waning flank pain with correlating decreased nephrostomy tube output. Fortunately, her symptoms are almost completely resolved at the timeof my evaluation. CT abdomen pelvis pursued to rule out nephrostomy tube malfunction. Fortunately, this shows stable exam. On reevaluation, both tubes are draining appropriately and pain is completely resolved. Patient has significantly elevated white count which is slightly increased from her baseline. Outside hospital labs documented below. Labs at [facility] obtained 03/02 show the following Phos 6.7 mg/dL BUN 32 mg/dL Cr 2.3 mg/dL eGFR 21.02 mL/min/1.73m2 Albumin 1.5 g/dL CBC 02/24: WBC measured 22.14 Given elevated white count and significant leukourea and hematuria, urology was engaged. Urology request engagement with interventional radiology given their involvement with nephrostomy tube placement. Interventional radiology plan to expedite possible nephrostomy tube replacement. Urology to evaluate patient later this morning. Care transitioned to oncoming day team pending final recommendations from urology. PLAN: Care transitioned to oncoming day emergency medicine team pending final recommendations from urology. Lukas Calderon MD 04/08/21 7:21 AM Lukas Calderon MD Resident 04/08/21 0726 Associated attestation - Ann Chowdhury MD - 04/08/2021 7:59 PM EST ED ATTENDING ATTESTATION NOTE The patient was seen in conjunction with the resident physician. I have independently performed thekey portions of the history and physical exam. I have reviewed the nursing notes, vital signs, and all diagnostic studies personally including labs, imaging studies and EKGs. I have discussed the details of the case with the resident and agree with the assessment and plan as described in the resident documentation unless noted in my brief note from same date of service. documented in this encounter Miscellaneous Notes * Consult Note - Tori Brooke MD - 04/08/2021 8:04 AM EST Images from the original note were not included. UROLOGY ED CONSULT NOTE CONSULT REQUESTED BY: Ann Chowdhury MD REASON FOR CONSULT: ?UTI with NU stents HPI Barb Bullard is a 70 y.o. female with newly diagnosed metastatic bladder cancer c/w bilateral obstructing uropathy initially diagnosed by Dr. Arzate at [facility]. She underwent bilateral [facility]U st[facility] [facility] She presented today to [facility] due to clogged NU tube c/w flank pain. CT with NU stents in position, no hydronephrosis. In the ED IR interrogated the NU stents, which flushed well. Her flank pain also resolved once the NU started flowing. Urology was consulted about whether patient would need antibiotics prior to discharger. Her WBC noted to be in th 30's but her most recent WBC at [facility] was in the 20's and thought to be due to reactive leukocytosis. UA >100 WBC, >100 RBC, -ve NIT. She is otherwise AF, AAO, VSS, at baseline health without flank/suprapubic pain. She is covered with Augmentin (04/04 - 04/11) after her bronchoscopy/biopsy on 04/04/21. She has follow up with Medical Oncology at [facility] for pemb rolizumab infusion starting 04/11/21. MEDICAL AND SURGICAL HISTORY No past medical history on file. Past Surgical History: Procedure Laterality Date ??? IR MEDIPORT PLACEMENT 04/02/2021 IR Mediport Placement 04/02/2021 Yuval Sinclair PA [facility] INTERVENTIONL RAD ??? IR NEPHROSTOMY TUBE PLACEMENT PERCUTANEOUS BILATERAL 02/20/2021 IR Nephrostomy Tube Placement Percutaneous Bilateral [facility] INTERVENTIONL RAD ? ? PRO [facility] EBUS GUIDED SAMPL 3/> NODE STATION/STRUX N/A 04/04/2021 BRONCH, W ENDOBRONCHIAL ULTRASOUND (EBUS) GUIDED SAMPLING, 3+ NODES (WRVU 5.21) performed by Alonzo Cevallos MD at [facility] MAIN OR ??? PRO BRONCHOSCOPY, DIAGNOSTIC W LAVAGE N/A 04/04/2021 BRONCHOSCOPY, RIGID OR FLEXIBLE, WITH BRONCHIAL ALVEOLAR LAVAGE (WRVU 2.88) performed by Alonzo Cevallos MD at [facility] MAIN OR No current facility-administered medications on file prior to encounter. Current Outpatient Medications on File Prior to Encounter Medication Sig Dispense Refill ??? amoxicillin-clavulanate (Augmentin) 875-125 mg Tablet Take 1 tablet by mouth 2 times daily for 7 days. 14 tablet 0 ??? ferrous sulfate EC 325 mg (65 mg iron) Tablet, Delayed Release (E.C.) Take 325 mg by mouth daily. ??? polyethylene glycoL (Miralax) 17 gram/dose Powder DISSOLVE ONE TEASPOONFUL IN WATER AND DRINK THREE TIMES A DAY Social History Socioeconomic History ??? Marital status: Single Spouse name: Not on file ??? Number of children: Not on file ??? Years of education: Not on file ??? Highest education level: Not on file Occupational History ??? Not on file Tobacco Use ??? Smoking status: Former Smoker Types: Cigarettes Quit date: 07/04/2014 Years since quittin.7 ??? Smokeless tobacco: Never Used Vaping Use ??? Vaping Use: Never used Substance and Sexual Activity ??? Alcohol use: Not Currently ??? Drug use: Not on file ??? Sexual activity: Not on file Other [...] Housing in the Last Year: No No flowsheet data found. PHYSICAL EXAM Current 24 Hours Temp: 36.4 ??C (97.6 ??F) Temp: [36.4 ??C (97.6 ??F)] Heart Rate: 83 Heart Rate: [83-113] BP: 122/67 BP: (120-125)/(64-76) Resp: 16 Resp: [16] SpO2: 97 % SpO2: [95 %-99 %] No intake/output data recorded. GEN: Resting comfortably in bed, conversant, NAD. HEENT: NCAT. CHEST: CTAB. CV: RRR, normal S1 S2 sounds. ABD: Soft, NTND, BS present. : No flank or suprapubic tenderness EXTR: Moving spontaneously. 2+ pulses bilaterally. No edema. SKIN: Warm and dry. NEURO: Alert and follows commands. Recent Labs 04/08/21 0250 WBC 30.6* HGB 9.9* HCT 31.5* PLATELET 755* Recent Labs 04/08/21 0250 NA 137 K 3.3* CL 106 CO2 19* BUN 23* CREATININE 1.24* GLUCOSE 116 CALCIUM 9.8 No results for input(s): PT, PTT, INR in the last 168 hours. Recent Labs 04/08/21 0250 BILITOT 0.4 AST 9 ALT 7 ALKPHOS [address] A/P 04/08/21 MICRO STUDIES Component Value Date/Time SPGRAVITYUA 1.022 04/08/2021 0345 PHUADIP 6.0 04/08/2021 0345 PROTEINUADIP >=300 (A) 04/08/2021 0345 GLUCOSEU Negative 04/08/2021 0345 KETONESUA Negative 04/08/2021 0345 UROBILIUADIP Normal 04/08/2021 0345 BLOODUADIP Large (A) 04/08/2021 0345 NITRATEUA Negative 04/08/2021 0345 LEUKOESTERUA Large (A) 04/08/2021 0345 WBCUA >100 (H) 04/08/2021 0345 BILIRUBINUA Negative 04/08/2021 0345 No results for input(s): URINECULTURE in the last 720 hours. No results for input(s): BLOODCX in the last 720 hours. IMPRESSION 70 y.o. female with newly diagnosed metastatic bladder cancer c/w bilateral obstructing uropathy s/p bilateral NU stents placement on 02/20/21 and pulmonary biopsy on 04/04/21. Patient presented [place] [facility] [place] for flank pain which resolved after NU interrogation. CT without signs of urinary obstruction. UA is questionable for infection however with NU stents in place, it is difficult to say how significant the WBC are without positive nitrate. Patient is otherwise feeling well without signs of infection. She is on Augmentin for recent bronchoscopy/biopsy and will present to [facility]) for oncological follow up. Her NU will be exchanged on 05/23. Given that she will haveclose follow up and was on antibiotics prior to NU interrogation, we can wait for culture result before deciding if additional antibiotics therapy is warranted. RECOMMENDATIONS - continue Augmentin as prescribed - added to Urology culture list - follow up with Medical Oncology / IR as scheduled - patient followed by Dr. Arzate, no dedicated Urology follow up needed with [facility] at this point Case discussed with Dr. Dupree , Urology attending. Consult service will continue to follow patient. X Recommendations are above, please page if further consultation required. Tori Brooke MD 04/08/2021 Urology Consult [phone] Urology Attending I saw and evaluated the patient. I agree with the findings and the plan of care as documented in Dr. Brooke's note. Mrs. Bullard will continue her present oral antibiotics and her UC will help direct future antibiotictherapy. She has no S/S of urosepsis and will return to ED if she becomes febrile or develops shaking chills. Jean Carlos Dupree MD, FACS documented in this encounter Plan of Treatment Upcoming Encounters Date Type Department Care Team (Late st Contact Info) Description 12/08/2023 3:30 PM EDT Office Visit Hematology/Oncology at [address] [phone] Chase Mckay MD [facility] DR [place] [address] documented as of this encounter Procedures Procedure Name Priority Date/Time Associated Diagnosis Comments URINALYSIS MICROSCOPIC EXAM STAT 04/08/2021 3:45 AM EST URINALYSIS WITH REFLEX CULTURE STAT 04/08/2021 3:45 AM EST URINE CULTURE STAT 04/08/2021 3:[address] ABDOMEN AND PELVIS W CONTRAST STAT 04/08/2021 3:25 AM EST SCAN, PERIPHERAL BLOOD STAT 2:50 AM EST HEMOGRAM STAT 04/08/2021 2:50 AM EST DIFFERENTIAL, AUTOMATED STAT 04/08/2021 2:50 AM EST GOLD TUBE HOLD STAT 04/08/2021 2:50 AM EST HC CBC,PLT & AUTO DIFF STAT 2:50 AM EST HC LIPASE STAT 04/08/2021 2:50 AM EST COMPREHENSIVE METABOLIC PANEL (NON-FASTING) STAT 04/08/2021 2:50 AM EST documented in this encounter Results * (ABNORMAL) Urine culture (04/08/2021 3:45 AM EST) Pathologist [facility] Urine Culture 10,000-49,000 cfu/ml Laurence albicans 1,000-9,000 cfu/ml mixed Gram Negative organisms (A) [facility] Organism Laurence albicans(A) [facility] Nephrostomy Urine 04/08/2021 3:45 AM EST 04/08/2021 6:33 AM EST Narrative Resulting Agency Comment Spec In Lab Lukas Calderon MD MICROBIOLOGY - GENER AL ORDERABLES [facility] [place] [address] * (ABNORMAL) Urinalysis Microscopic Exam (04/08/2021 3:45 AM EST) Pathologist [facility] RBC UA >100(H) 0 - 4 /HPF [facility] WBC UA >100(H) 0 - 5 /HPF [facility] WBCs Clumping Rare(A) None /HPF [facility] Bacteria UA Many(A) None /HPF [facility] Yeast [place] UA Moderate(A ) None /HPF [facility] Yeast Hyph UA Rare(A) None /HPF [facility] Squam Epith UA 3 <=4 /HPF [facility] Hyaline Cast UA 13(H) 0 - 2 /LPF [facility] CaOx Lara UA Rare(A) None /HPF [facility] Nephrostomy Urine 04/08/2021 3:45 AM EST 04/08/2021 4:31 AM EST Narrative Resulting Agency Comment Spec In Lab Lukas Calderon MD URINE ORDERABLES Performing Organization Address City/State/[facility] Co de Phone Number [facility] [place] [address] * (ABNORMAL) Urinalysis with reflex Culture (04/08/2021 3:45 AM EST) Glucose UA Negative Negative mg/dL [facility] Protein UA >=300(A) Negative mg/dL [facility] Bilirubin UA Negative Negative mg/dL [facility] Comment: Clinical correlation required for positive Urine Bilirubin results as false positive may occur with some drugs and drug related products. If a false positive is suspected a serum total bilirubin should be considered if clinically indicated. Urobilinogen UA Normal Normal mg/dL M [facility] pH UA 6.0 5.0 - 8.0 [facility] Blood UA Large(A) Negative mg/dL [facility] Ketones UA Negative Negative mg/dL [facility] Nitrite UA Negative Negative [facility] Leukocytes UA Large(A) Negative [facility] Appearance UA Turbid(A) Clear [facility] Spec [place] UA 1.022 1.005 - 1.030 [facility] Color UA Yellow Yellow [facility] Culture Reflexed Yes [facility] Nephrostomy Urine 04/08/2021 3:45 AM EST 04/08/2021 4:31 AM EST Narrative Resulting Agency Comment Spec In Lab Ann Chowdhury MD URINE ORDERABLES [facility] [place] [address] * CT Abdomen & Pelvis w Contrast (04/08/2021 3:25 AM EST) Anatomical Region Laterality Modality Abdomen, Pelvis Computed Tomogra phy 04/08/2021 3:45 AM EST Impressions 04/08/2021 3:58 AM EST 1. ??Bilateral percutaneous nephroureteral catheter appears to be appropriately positioned with possible right renal pelvic pigtail potentially formed in the lower more lateral pelvis. However, this was present on prior study dated 03/20/2021. 2. ??Redemonstration of the left lower lung mass/metastatic mass with loculated pleural effusion. 3. ??Patchy consolidative opacity in the right lower lung could be related to infectious/inflammatory etiology, not significantly changed since the prior PET/CT dated 03/20/2021. 4. ??Postcholecystectomy anatomy with prominence of the CBD which is slightly more dilated what would be typically expected. This could be further evaluated with MRCP if no contraindications. 5. ??Other findings as above. Thank you for letting us participate in the care of this patient. ??If you are a health care provider and have any questions regarding this report, please contact the number below. ??For patients who have questions please contact the health foster care case manager that requested your imaging first. ? Electronically signed by: Geovanna Herman MD, [facility] ([phone]), at 04/08/2021 3:58 AM Narrative 04/08/2021 3:58 AM EST EXAMINATION: CT ABDOMEN AND PELVIS W CONTRAST CLINICAL HISTORY: Flank pain, kidney stone suspected Bilateral flank pain with decreased output of nephrostomy tube on right TECHNIQUE: Helical CT of the abdomen and pelvis was performed following the intravenous administration of contrast. Administered 73.0 ml of OMNIPAQUE 350.00 mg/ml. Oral contrast was noted administered. COMPARISON: PET/CT dated 03/19/[address] CAP dated 02/18/2021 FINDINGS: Lower chest: Loculated left-sided pleural effusion with similar solid mass in the left lower lobe, partially visualized as before. Peripheral areas of patchy opacities in the right middle and lower lung lobes concerning for infectious/inflammatory etiology with superimposed atelectasis. No right-sided pleural effusion. Liver: Normal size and attenuation without lesions. [...] evaluation. However, there is redemonstration of the. Vasculature: No abdominal aortic aneurysm Lymph Nodes: Multiple nonenlarged regional external iliac lymph nodes and obturator chain lymph nodes are redemonstrated. No bulky adenopathy Bowel: Nondilated, no wall thickening. Moderate stool burden throughout the large bowel Peritoneum and mesentery: No ascites, free air, or loculated fluid collection. No mesenteric inflammation. Abdominal wall: Bilateral findings percutaneous nephroureteral catheter. Reproductive organs: Normal CT appearance of the uterus without adnexal mass identified. Osseous structures: No suspicious lesions. Diffuse osseous demineralization is noted with Hounsfield units measured at L1 which are in the range of osteopenia. Procedure Note Geovanna Herman MD - 04/08/2021 EXAMINATION: CT ABDOMEN AND PELVIS W CONTRAST CLINICAL HISTORY: Flank pain, kidney stone suspected Bilateral flank pain with decreased output of nephrostomy tube on right TECHNIQUE: Helical CT of the abdomen and pelvis was performed followingthe intravenous administration of contrast. Administered 73.0 ml of ZCPEBSHCH746.00 mg/ml. Oral contrast was noted administered. COMPARISON: PET/CT dated 03/19/[address] CAP dated 02/18/2021 FINDINGS: Lower chest: Loculated left-sided pleural effusion with similar solid massin the left lower lobe, partially visualized as before. Peripheral areas ofpatchy opacities in the right middle and lower lung lobes concerning for infectious/inflammatory etiology with superimposed atelectasis. Noright-sided pleural effusion. Liver: Normal size and attenuation without lesions. Focal fatty sparingalong the falciform ligament. Bile ducts: CBD is again noted to be prominent at jose hepatis measuringup to 1.5 cm. Mild intrahepatic ductal dilatation. Gallbladder: Surgically absent. Pancreas: Normal attenuation without ductal dilatation. Spleen: Normal. Adrenals: Normal. Right kidney: Percutaneous nephroureteral catheter on the right sidewith pigtail formed slightly more laterally in the lower pole renal pelvis anddistal end of the pigtail within the urinary bladder, appropriately positioned.No hydronephrosis or obstructing nephrolithiasis. Left kidney: Nephroureteral stent with pigtail formed appropriately withinthe renal pelvis and distal end within the urinary bladder, appropriately positioned. Urinary Bladder: Partially filled limiting evaluation. However, there is redemonstration of the. Vasculature: No abdominal aortic aneurysm Lymph Nodes: Multiple nonenlarged regional external iliac lymph nodesand obturator chain lymph nodes are redemonstrated. No bulky adenopathy Bowel: Nondilated, no wall thickening. Moderate stool burden throughoutthe large bowel Peritoneum and mesentery: No ascites, free air, or loculated fluidcollection. No mesenteric inflammation. Abdominal wall: Bilateral findings percutaneous nephroureteral catheter. Reproductive organs: Normal CT appearance of the uterus without adnexalmass identified. Osseous structures: No suspicious lesions. Diffuse osseousdemineralization is noted with Hounsfield units measured at L1 which are in the range ofosteopenia. IMPRESSION 1. Bilateral percutaneous nephroureteral catheter appears to beappropriately positioned with possible right renal pelvic pigtail potentially formed inthe lower more lateral pelvis. However, this was present on prior studydated 03/20/2021. 2. Redemonstration of the left lower lung mass/metastatic mass withloculated pleural effusion. 3. Patchy consolidative opacity in the right lower lung could be relatedto infectious/inflammatory etiology, not significantly changed since theprior PET/CT dated 03/20/2021. 4. Postcholecystectomy anatomy with prominence of the CBD which isslightly more dilated what would be typically expected. This could be furtherevaluated with MRCP if no contraindications. 5. Other findings as above. Thank you for letting us participate in the care of this patient. If youare a health care provider and have any questions regarding this report,please contact the number below. For patients who have questions please contactthe health foster care case manager that requested your imaging first. Electronically signed by: Geovanna Herman MD, [facility]([phone]), at 04/08/2021 3:58 AM Ann Chowdhury MD IMG CT ORDERABLES * Scan, Peripheral Blood (04/08/2021 2:50 AM EST) Plat Estimate Increased [facility] RBC Morphology Abnormal [facility] Microcytes 1-5 /HPF [facility] Hypochromia Slight [facility] Giant Platelets Less than 1 /HPF [facility] R[facility] Platelet Clumps Present [facility] Blood 04/08/2021 2:50 AM EST 04/08/2021 2:56 AM EST Narrative Resulting Agency Comment Spec In Lab Lukas Calderon MD HEMATOLOGY ORDERABLE S [facility] [address] * Gold Tube HOLD (04/08/2021 2:50 AM EST) Gold Hold Sample in lab. [facility] Blood Venous Draw / Unknown 04/08/2021 2:50 AM EST 04/08/2021 2:57 AM EST Lukas Calderon MD CHEMISTRY ORDERABLES [facility] [address] * (ABNORMAL) Differential, Automated (04/08/2021 2:50 AM EST) Neutrophils % 79.3 % [facility] Neutr Abs (ANC) 24.24(H) 1.70 - 6.10 x10(3)/[facility] Lymphocytes % 8.8 % [facility] Lymphocytes Abs 2.7 0.9 - 3.2 x10(3)/[facility] Monocytes % 5.9 % [facility] Monocyte Abs 1.8(H) 0.3 - 0.9 x10(3)/[facility] Eosinophils % 4.4 % [facility] Eosinophils Abs 1.4(H) 0.0 - 0.4 x10(3)/[facility] Basophils % 0.4 % [facility] Basophils Abs 0.1 0.0 - 0.1 x10(3)/[facility] Immature Gran % 1.20 % [facility] Comment: Immature granulocytes(IG's)percentage and absolute count will include metamyelocytes, myelocytes, and promyelocytes. Blood smears from CBCs yielding IG's will be scanned manually for concordance. If this scan disagrees with the automated IG or if promyelocytes are noted, a manual differential will be performed. [place] Gran Abs 0.36(H) 0.00 - 0.04 x10(3)/[facility] Blood 04/08/2021 2:50 AM EST 04/08/2021 2:56 AM EST Narrative Resulting Agency Comment Spec In Lab Lukas Calderon MD HEMATOLOGY ORDERABLE S [facility] [address] * (ABNORMAL) Hemogram (04/08/2021 2:50 AM EST) WBC 30.6(Criti ameena) 4.0 - 9.5 x10(3)/ L [facility] Comment: This result has been called to LATOYA HARRIS by Kris Carrillo on 04 08 2021 at 0330, and has been read back. RBC 3.92(L) 4.00 - 5.21 x10(6)/ L [facility] Hemoglobin 9.9(L) 11.7 - 15.5 g/dL [facility] Hematocrit 31.5(L) 35.7 - 45.8 % [facility] MCV 80.4(L) 82.6 - 94.[address] [facility] MCH 25.3(L) 27.1 - 32.[address] [facility] MCHC 31.4(L) 31.7 - 35.0 g/dL [facility] Platelets 755(H) 145 - 357 x10(3)/ L [facility] RDWSD 62.4(H) 37.0 - 46.[address] [facility] RDWCV 21.7(H) 11.5 - 14.1 % [facility] MPV 8.8 7.6 - 12.9 [facility] nRBC % Auto 0.0 % [facility] nRBC Abs Auto 0.000 0.000 - 0.000 x10(3)/ L [facility] Blood 04/08/2021 2:50 AM EST 04/08/2021 2:56 AM EST Narrative Resulting Agency Comment Spec In Lab Lukas Calderon MD HEMATOLOGY ORDERABLE S [facility] [place] [address] * Lipase (04/08/2021 2:50 AM EST) Pathologist [facility] Lipase 14 0 - 60 unit/L [facility] Blood 04/08/2021 2:50 AM EST 04/08/2021 2:56 AM EST Narrative Resulting Agency Comment Spec In Lab Ann Chowdhury MD CHEMISTRY ORDERABLE S [facility] [place] [address] * (ABNORMAL) Comprehensive metabolic panel (non-fasting) (04/08/2021 2:50 AM EST) Pathologist [facility] Glucose Lvl 116 65 - 199 mg/dL [facility] Comment:Diabetes: >=200 mg/d L plus symptoms BUN 23(H) 8 - 18 mg/dL [facility] Creatinine 1.24(H) 0.70 - 1.20 mg/dL [facility] Sodium 137 135 - 145 mmol/L [facility] Potassium 3.3(L) 3.5 - 5.0 mmol/L [facility] Comment: Please note: ??Patients with WBC >100,000 may have falsely elevated Potassium levels. ??For accurate Potassium quantification in these patients send serum separator tube (gold top) for subsequent determinations. ??Contact the Clinical Chemistry Laboratory if there are any questions. Chloride 106 98 - 107 mmol/L [facility] CO2 19(L) 22 - 31 mmol/L [facility] Anion Gap 12 5 - 15 mmol/L [facility] Calcium 9.8 8.5 - 10.5 mg/dL [facility] Total Protein 8.3(H) 6.1 - 8.0 g/dL [facility] Albumin 3.2 3.2 - 5.2 g/dL [facility] AST 9 0 - 30 unit/L [facility] ALT 7 0 - 30 unit/L [facility] Alk Phos 85 35 - 105 unit/L [facility] Total Bilirubin 0.4 0.2 - 1.3 mg/dL [facility] Estimated GFR 44(L) >=60 mL/min/1. 73 m?? [facility] Comment: This patient? s estimated glomerular filtration rate (eGFR) is between 44 mL/min/1.73 m2 (patients with less muscle mass) and 51 mL/min/1.73 m2 (patients with more muscle mass) [...] and symptoms in addition to eGFR. Blood 04/08/2021 2:50 AM EST 04/08/2021 2:56 AM EST Narrative Resulting Agency Comment Spec In Lab Ann Chowdhury MD CHEMISTRY ORDERABLE S [facility] [place] [phone] documented in this encounter Visit Diagnoses Diagnosis Leukocytosis, unspecified type- Primary Pleural effusion Unspecified pleural effusion Lung mass Swelling, mass, or lump in chest documented in this encounter Administered Medications Inactive Administered Medications - up to 3 most recent administrations Medication Order MAR Action Action Date Dose Rate Site iohexoL (Omnipaque) (350 mg/mL) solution 0-200 mL 0-200 mL, Intravenous, ONCE PRN, 1 dose, Starting on 04/08/21 at 0325, Until 04/08/21 at 0318, Per Protocol, Warning Vesicant/Irritant Medication , Radiology Contrast, Routine Given 04/08/2021 3:18 AM EST 73 mLs sodium chloride 0.9% 1,000 mL IV bolus at 2,000 mL/hr, Intravenous, ONCE, 1 dose, On 04/08/21 at 0237 New Bag 04/08/2021 2:37 AM EST 2000 mL/hr documented in this encounter Active and Recently Administered Medications Times are shown in EST. Scheduled Medication Order 04/06/2021 04/07/2021 04/08/2021 sodium chloride 0.9% 1,000 mL IV bolus (COMPLETED) at 2,000 mL/hr, Intravenous, ONCE, 1 dose, On 04/08/21 at 0237 0237 (New Bag - Prov ider: Cortney Mello, TORITO)[id number] (Stopped - Provider: Ann Byrne RN) PRN Medication Order 04/06/2021 04/07/2021 04/08/2021 iohexoL (Omnipaque) (350 mg/mL) solution 0-200 mL (COMPLETED) 0-200 mL, Intravenous, ONCE PRN, 1 dose, Starting on 04/08/21 at 0325, Until 04/08/21 at 0318, Per Protocol, Warning Vesicant/Irritant Medication , Radiology Contrast, Routine 0318 (Given - Provid er: Marielos Katz) documented in this encounter Care Teams Roll Handler Relationship Specialty Start Date End Date Eren Shah DNP PCP - General Family Medicine 03/20/21 06/10/22 documented as of this encounter
--- OUTSIDE RECORDS SUMMARY | 2023-11-21 16:01 | XMS_ITS | Encounter Summary ---
Author Organization [facility] Address [facility] [place] [address] Care Team Providers Care Oven Loader Name Role Phone Eren Shah CHELSEA Primary Care Provider [phone] Encounter Details Date Type Department Care Team (Latest Contact Info) Description 04/10/2021 Multidisciplinary Ca re Committee [place] [phone] Alonzo Cevallos MD [facility] [address] OBSTETRICS [place] [address] Social History Tobacco Use Types Packs/Day Years [...] as of this encounter Progress Notes * Alonzo Cevallos MD - 04/10/2021 8:26 AM EST Thoracic - Tumor Board Note Date Presented: 04/10/2021 Presenting Physician: Alonzo Cevallos [...] Lange for treatment of her urothelial cell carcinoma. DISCLAIMER: The patient was discussed and the tumor board made recommendations but it is ultimatelyup to the treatment provider(s) and the patient to determine the patient???s care. Alonzo Cevallos MD, 04/10/2021, 8:26 AM Interventional Pulmonology Section of Pulmonary & Critical Care Pager: [phone] documented in this encounter Plan of Treatment Upcoming Encounters Date Type Department Care Team (Late st Contact Info) Description 12/08/2023 3:30 PM EDT Office Visit Hematology/Oncology at [address] [phone] Chase Mckay MD [facility] [address] HEMATOLOGY [place] [address] documented as of this encounter Visit Diagnoses Not on filedocumented in this encounter Care Teams Oven Loader Relationship Specialty Start Date End Date Eren Shah DNP PCP - General Family Medicine 03/20/21 06/10/22 documented as of this encounter
--- OUTSIDE RECORDS SUMMARY | 2023-11-21 16:01 | XMS_ITS | Encounter Summary ---
Author Organization [facility] [place] [address] Care Team Providers Care Chemical Compounder Name Role Phone None Primary Care Provider Unavailabl e Encounter Details Date Type Department Care Team (Late st Contact Info) Description 02/21/2021 Ancillary Procedure [place] [address] Alonzo Cevallos MD [facility] [address] OBSTETRICS [place] [address] Social History Tobacco Use Types Packs/Day Years [...] PM EDT Office Visit Hematology/Oncology at [address] [phone] Chase Mckay MD [facility] [address] HEMATOLOGY [place] [address] documented as of this encounter Procedures Procedure Name Priority Date/Time Associated Diagnosis Comments FILM LIBRARY STORAGE ONLY MR HEAD Routine 02/21/2021 12:00 AM EDT documented in this encounter Results * Film Library- Storage Only MR Head (02/21/2021 12:00 AM EDT) Narrative [facility] - 02/27/2021 12:57 PM EDT This exam is auto-finalizing. It's purpose is for storage only. Alonzo Cevallos MD IMG FILM LIBRARY ORD ERABLES [place], [place] documented in this encounter Visit Diagnoses Not on filedocumented in this encounter Care Teams Chemical Compounder Relationship Specialty Start Date End Date None None PCP - General 02/20/21 03/19/21 documented as of this encounter
--- OUTSIDE RECORDS SUMMARY | 2023-11-21 16:01 | XMS_ITS | Encounter Summary ---
Author Organization [facility] [place] [address] Care Team Providers Care Barber Shop Operator Name Role Phone Eren Shah DNP Primary Care Provider [phone] Encounter Details Date Type Department Care Team (Late st Contact Info) Description 04/04/2021 Orders [place] [phone] Alonzo Cevallos MD [facility] [address] [place]ST[place] [address] Social History Tobacco Use Types Packs/Day Years [...] PM EDT Office Visit Hematology/Oncology at [address] [phone] Chase Mckay MD [facility] [address] [place] [address] documented as of this encounter Visit Diagnoses Not on filedocumented in this encounter Care Teams Barber Shop Operator Relationship Specialty Start Date End Date Eren Shah DNP PCP - General Family Medicine 03/20/21 06/10/22 documented as of this encounter
--- OUTSIDE RECORDS SUMMARY | 2023-11-21 16:01 | XMS_ITS | Encounter Summary ---
[place] [address] Care Team Providers Care Director Toxicology Name Role Phone Eren Shah CHELSEA Primary Care Provider [phone] Reason for Referral * Consultation (Routine) - Closed Specialty Diagnoses / Procedures Referred By Contjoslyn t Referred To Contact Hospice and Palliative Medicine Diagnoses Metastatic urothelial carcinoma Jose Lange MD [facility] HEMATOLOGY [place] [address] Referral ID Status Reason Start Date Expiration Date V isits Requested Visits Authorized [id number] Closed Consult, Test & Treat 03/27/2021 09/23/2021 1 1 * Diagnostic Test (Routine) - Closed Specialty Diagnoses / Procedures Referred By Contjoslyn t Referred To Contact Radiology Diagnoses Metastatic urothelial carcinoma Procedures IR Mediport Placement Jose Lange MD [facility] DR HEMATOLOGY [place] [address] [facility] [place] [address] Referral ID Status Reason Start Date Expiration Date V isits Requested Visits Authorized [id number] Closed Specialty Service Requested 03/27/2021 09/24/2022 1 1 Reason for Visit * Consultation (Routine) - Closed Specialty Diagnoses / Procedures Referred By Contac t Referred To Contact Hematology and Oncology Diagnoses Malignant neoplasm of bladder, unspecified MALIGNAT NEOPLASM OF BLADDER UNSPECIFIED Procedures TREATMENT OPTIONS Leandro Arzate MD [address] [place] [address] St[facility] Hem Onc Office [address] [place] [phone] Referral ID Status Reason Start Date Expiration Date Visits Re quested Visits Authorized [id number] Closed 03/02/2021 03/02/2022 1 1 Encounter Details Date Type Department Care Team (Late st Contact Info) Description 03/27/2021 2:30 PM EST Office Visit Hematology/Oncology at [address] [phone] Jose Lange MD [facility] DR HEMATOLOGY [place] [address] Metastatic urothelial carcinoma (Primary Dx); 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 ; Abnormal results of thyroid function studies Social History Tobacco Use Types Packs/Day Years Used Date Smoking Tobacco: Former Cigarettes Q uit: 07/04/2014 Smokeless Tobacco: Never Overall Financial Resource Strain (CARDIA) Answe r [...] Sign Reading Time Taken Comments Blood Pressure 133/61 03/27/2021 2:30 PM EST Pulse 86 03/27/2021 2:30 PM EST Temperature 36.6 ??C (97.9 ??F) 03/27/2021 2:30 PM ES T Respiratory Rate 16 03/27/2021 2:30 PM EST Oxygen Saturation 98% 03/27/2021 2:30 PM EST Inhaled Oxygen Concentration - - Weight 64.4 kg (142 lb) 03/27/2021 2:30 PM EST Height 163.8 cm (5' 4.5) 03/27/2021 2:30 PM EST Body Mass Index 24 03/27/2021 2:30 PM EST documented in this encounter Progress Notes * Pamella East, TORITO - 03/27/2021 2:30 PM EST MEDICAL ONCOLOGY INITIAL NURSING ASSESSMENT ADVANCE DIRECTIVES: In EDH [ ] Has documents [ ] Will bring in [ ] not at this time IF NO: Advance Directive pamphlet provided : Referral to Care Management : PRESENTING SYSTEMS and PATHOLOGY: ongoing UTI's REVIEW OF SYSTEMS: see Erin'torsten note Prior Radiotherapy: no[ x ] Yes[ ]Site Date Facility Prior Chemotherapy: no[x ] Yes[ ] Drug: Oncologist- LastTreatment: Balance difficulty: [x ]no [ ]yes At risk for fall: [ x ] no [ ] yes If yes, actions implemented to prevent fall. Patient/family instructed to avoid independent ambulation. Use wheelchair and ask for assistance of staff while in the clinic. ADL [ ] no limits [ x ] needs dressing assistance [ ] needs meal assistance Assistive device:[x ]none [ ]cane [ ]walker [ ]wheelchair [ ]other: explain PAIN ASSESSMENT: [ 0 ] out of 10 Location: Description: [ ] Dull [ ] Sharp [ ] Burning [ ] Throbbing [ ] Radiating [ ] Continuous [ ]Intermittent Aggravating Factors: [ ] Movement [ ] Position [ ]Immobility [ ]Other Alleviating Factors: [ ]Medication [ ] Positioning [ ] Other Current Pain Management Plan: [ ]Satisfied [ ] Not satisfied SOCIAL ASSESSMENT: See ED social assessment information entered. Support Systems: Lives with daughter at present, Daisha, sister and brothers, son in law transportation plan: [x ]private vehicle [ ] RCT needs Social Work referral [ ] Unknown at this time needs Social Work referral Barriers to treatment: weak Referrals/Interventions: LEARNING STYLE: Visual and verbal, wants written material and verbal discussion. TEACHING: __ NCI ???Chemotherapy and You?? and folder given __ Specific chemotherapy literature provided and reviewed with patient * Jose Lange MD - 03/27/2021 2:30 PM EST Images from the original [...] lung primary. She was seen by vp corporate partnerships , who recommended rigid bronchoscopy with attempts to open the LLL broncus as well as stage the mediastinum with EBUS. The procedure has been scheduled yet. PMH: No significant past medical history Social History: [id number] smoking history quit 6 years ago, does not drink alcohol, used to liveindependently, but currently moved to her daughter house. Family History: Brother had liver cancer, mother had leukemia, maternal aunt had colon cancer in cousin had bladder cancer Allergies: No Known Allergies Medications: Your Medications Accurate as of March 27, 2021 3:40 PM. If you have any questions, ask your nurse or doctor. Continued medications, unchanged Dose Details ferrous sulfate EC 325 mg (65 mg iron) Tbec Take 325 mg by mouth daily. 325 mg Refills: 0 polyethylene glycoL 17 gram/dose Powd Commonly known as: Miralax DISSOLVE ONE TEASPOONFUL IN WATER AND DRINK THREE TIMES A DAY Refills: 0 Review of Systems: Constitutional: Negative for fever, chills, activity change, fatigue and unexpected weight change. HEENT: Negative for sore throat, mouth sores and trouble swallowing. Eyes: Negative. Respiratory: Negative for cough, shortness of breath and wheezing. Cardiovascular: Negative for chest pain, palpitations and leg swelling. Gastrointestinal: Negative for nausea, vomiting, abdominal pain, diarrhea, constipation and abdominal distention. Genitourinary: Negative for dysuria and difficulty urinating. Musculoskeletal: Negative. Skin: Negative. Neurological: Negative. Hematological: Negative for adenopathy. PE: General: AAAx3, in NAD Head: Normocephalic, without obvious abnormality, atraumatic Eyes: PERRL, conjunctiva/corneas clear, EOM's intact, fundi benign, both eyes Ears: Normal TM's and external ear canals, both ears Nose: Nares normal, septum midline, mucosa normal, no drainage or sinus tenderness Throat: Lips, mucosa, and tongue normal; teeth and gums normal Neck: Supple, symmetrical, trachea midline, no adenopathy, thyroid: not enlarged, symmetric, no tenderness/mass/nodules, no carotid bruit or JVD Back: Symmetric, no curvature, ROM normal, no CVA tenderness Lungs: Clear to auscultation bilaterally, respirations unlabored Chest Wall: No tenderness or deformity Heart: Regular rate and rhythm, S1, S2 normal, no murmur, rub or gallop Abdomen: Soft, non-tender, bowel sounds active all four quadrants, no masses, no organomegaly. Bilateral nephrostomy tube in place draining urine Extremities: Extremities normal, atraumatic, no cyanosis or edema Pulses: 2+ and symmetric Skin: Skin color, texture, turgor normal, no rashes or lesions Lymph nodes: Cervical, supraclavicular, and axillary nodes normal Neurologic: Normal Vitals BP 133/61 (Patient Position: Sitting) Pulse 86 Temp 36.6 ??C (97.9 ??F) (Temporal) Resp 16 Ht 163.8 cm (5' 4.5) Wt 64.4 kg (142 lb) SpO2 98% BMI 24.00 kg/m?? Pathology: 02/19/2021 A. URINARY BLADDER, BIOPSY: - Invasive carcinoma, favor urothelial carcinoma, high-grade, with necrosis. See comment. - Tumor invades at least subepithelial lamina propria. - No muscularis propria identified. Labs: 03/21/2021 WBC 27.8, hemoglobin 10.2, platelet count [...] of presumably metastatic urothelial carcinoma which include southern [place] based chemotherapy versus immunotherapy. Due to her [...] in 3 weeks withfirst cycle of pembrolizumab Plan: 1. F/u with pulmonary team for endoscopical lung biopsy 2. Next visit in 3 weeks with blood work, ALL AROUND PATTERNMAKER chemotherapy teaching and first cycle of pembrolizumab. 3. Mediport placement The plan was discussed with Ms. Jair bañuelos. All questions were answered to patient satisfaction.I would like to thank Dr. Arzate for allowing me to participate in the care of this wonderful lady documented in this encounter Plan of Treatment Upcoming Encounters Date Type Department Care Team (Late st Contact Info) Description 12/08/2023 3:30 PM EDT Office Visit Hematology/Oncology at [address] [phone] Chase Mckay MD [facility] DR HEMATOLOGY [place] [address] Scheduled Referrals Name Type Priority Associated Diagnoses Order Schedule Referral to Palliative Care Outpatient Referral Routine Metastatic urothelial carcinoma Ordered: 03/27/2021 documented as of this encounter Results * IR Mediport Placement (04/02/2021 11:54 AM EST) Anatomical Region Laterality Modality X-Ray Angiograph y Narrative 04/02/2021 4:42 PM EST Interventional Radiology Procedure Note Procedure: Subcutaneous venous port implant Indication: metastatic urothelial carcinoma, durable correction central venous access for chemotherapy Procedure summary: 1.) Venous access with ultrasound guidance 2.) Tunneled port insertion under fluoroscopic guidance Pre-procedure: Informed consent for the procedure including risks, benefits, and alternatives was obtained. Active time-out was performed prior to the procedure. ??Right neck base and upper neck prepped and draped. ??Maximum sterile barrier technique was used throughout the procedure. ? Sedation: The patient received split doses of intravenous midazolam and fentanyl from the interventional radiology nurse while pulse, pressure, and oxygen saturation were continuously monitored. Technique: The right internal jugular vein was sonographically evaluated and determined to be patent. A permanent image was stored. Local anesthetic was administered. The vein was accessed via real-time ultrasound and micropuncture set with 21 gauge needle. A 0.018 wire was advanced into superior vena cava. The remainder of the procedure was performed under fluoroscopic guidance. A 4 Fr introducer sheath was placed and the wire exchanged for a 0.035 J wire. The wire was advanced into the inferior vena cava. Local anesthetic was administered on the anterior chest wall inferolateral to the puncture site. A 2 cm transverse incision was made in the right anterior chest wall, and with blunt dissection the port pocket was created. A trocar was then used to advance the catheter subcutaneously to the venous access site. The catheter was trimmed to appropriate length and the attached port was inserted into the pocket. A 4 Fr introducer sheath was exchanged for a peel-away sheath over the wire. The wire and inner obturator were removed and the 24 cm catheter advanced into the superior vena cava under fluoroscopic guidance and the sheath was removed. Catheter tip location was identified and a permanent image was stored. The port flushed and aspirated well. ??The pocket was closed using a two-layer technique with 2-0 vicryl deep interrupted and 4-0 vicryl running sutures. The skin closed was with tissue adhesive. The port was not left accessed. Medications: Lidocaine 1% <10 cc subcutaneous, lidocaine 1% with epinephrine <20 cc subcutaneous, fentanyl 150 mcg IV, midazolam 3 mg IV; prophylaxis: Cefazolin 2gm IV Fluoroscopy: 2.4 mGy Estimated blood loss: <5 mL Complications: No immediate Findings 1. Patent, compressible right internal jugular vein by ultrasound evaluation. 2. Catheter tip located in the superior cavoatrial junction. Impression: Placement of power-injectable, Medcomp 8 Fr Dignity Mini Profile single-lumen port in right chest. The port may be used immediately. Resident: ??Dr Man Service provider: Yuval Sinclair PA-C Present during the intraservice time as documented by the interventional radiology nurse. Supervised the physician trainee during the entire procedure without the presence of an attending radiologist. Attending of record: Guillermo Nice MD, not present. 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
--- OUTSIDE RECORDS SUMMARY | 2023-11-21 16:01 | XMS_ITS | Encounter Summary ---
[place] [address] Care Team Providers Care Small Wind Energy Installer Name Role Phone Eren Shah DNP Primary Care Provider [phone] Encounter Details Date Type Department Care Team (Late st Contact Info) Description 03/21/2021 [place] [address] Yonathan Van MD [facility] [place] [address] Social History Tobacco Use Types Packs/Day Years Used Date Smoking Tobacco: Former Cigarettes Q uit: 07/04/2014 Smokeless Tobacco: Never Sex and Gender Information Value Date Recorded Sex Assigned at Not on file Gender Identity Not on file Sexual Orientation Not on file documented as of this encounter H&P Notes * Yonathan Van MD - 03/21/2021 7:37 PM EST Images from the original note were not included. INTERVENTIONAL RADIOLOGY FOCUSED H&P and PRE-PROCEDURE NOTE: PCP: Eren Shah APRN Referring Provider: No ref. provider found Planned Procedure: Planned procedure: Left PCN exchange Procedure Indication: Decreased output from left PCN Procedure request received through Interventional Radiology eDH order queue. There are no answered order specific questions. Presenting Diagnosis/ Complaint: Barb Bullard is a 70 y.o. female with bilateral hydronephrosis secondary to bladder cancer. Bilateral percutaneous nephrostomy tubes were placed by IR on 02/20/21. Patient now presents to outside hospital with decreased output from left PCN. The team reports flushingPCN with return of approximately 20 cc of urine although output has been inconsistent. Patient was evaluated by urology and is clinically stable. Creatinine is elevated to 1.9 from 1.6. Patient is afebrile and her mild leukocytosis is unchanged. Upon their evaluation, they determined patient is likely stable for discharge with plan for outpatient left PCN exchange on Friday 03/23. Past Medical/Surgical History: There is no problem list on file for this patient. No past medical history on file. Past Surgical History: Procedure Laterality Date ??? IR NEPHROSTOMY TUBE PLACEMENT PERCUTANEOUS BILATERAL 02/20/2021 IR Nephrostomy Tube Placement Percutaneous Bilateral [facility] INTERVENTIONL RAD Medications: Current Outpatient Medications on File Prior to Visit Medication Sig Dispense Refill ??? ferrous sulfate EC 325 mg (65 mg iron) Tablet, Delayed Release (E.C.) Twice a day ??? polyethylene glycoL (Miralax) 17 gram/dose Powder [...] and Sexual Activity ??? Alcohol use: Not on file ??? Drug use: Not on file ??? [...] file. Pertinent ROS: as per HPI Labs: Imaging: Physical Exam: Pending (to be performed in angio the day of procedure) ASA: Pending (to be assessed in angio the day of procedure) Mallampati Class: Pending (to be assessed in angio the day of procedure) Assessment: 70 y.o. female with obstructive uropathy status post bilateral PCN placement on 02/20 with decreased output from left PCN. Patient referred for exchange of left PCN, tentatively planned as an outpatient on Friday 03/23. Will notify IR scheduler maintenance Friday morning to contact patient for appointment times. Plan: Planned procedure: Left PCN exchange Labs to be performed day of procedure: No labs Sedation: Fentanyl only Prophylactic antibiotic : None Contrast: Omnipaque Additional medications for procedure: Lidocaine Planned access site: Left flank Position: Prone Consent: Scanned Medications to discontinue (and days held): None Case Urgency:: F- Elective OUT-patient intervention within 3 days 03/21/2021 documented in this encounter Plan of Treatment Upcoming Encounters Date Type Department Care Team (Late st Contact Info) Description 12/08/2023 3:30 PM EDT Office Visit Hematology/Oncology at [address] [phone] Chase Mckay MD [facility] DR [place]AT[place] [address] documented as of this encounter Visit Diagnoses Not on filedocumented in this encounter Care Teams Small Wind Energy Installer Relationship Specialty Start Date End Date Eren Shah DNP PCP - General Family Medicine 03/20/21 06/10/22 documented as of this encounter
--- OUTSIDE RECORDS SUMMARY | 2023-11-21 16:01 | XMS_ITS | Encounter Summary ---
Author Organization [facility] [place] [address] Care Team Providers Care Business Development Assistant Name Role Phone None Primary Care Provider Unavailabl e Reason for Visit * Reason Onset Date Comments Other 03/01/2021 chart review for Bronchoscopy Encounter Details Date Type Department Care Team (Late st Contact Info) Description 03/01/2021 Notes Only Pul[facility] [place] [address] Erma Rodriguez RN Other (chart review for Bronchoscopy) Social History Tobacco Use Types Packs/Day Years Used Date Smoking Tobacco: Never Assessed Sex and Gender Information Value Date Recorded Sex Assigned at Not on file Gender Identity Not on file Sexual Orientation Not on file documented as of this encounter Progress Notes * Erma Rodriguez RN - 03/01/2021 2:56 PM EDT I have reviewed pt's chart. Pt not on any blood thinner at this time according to pt med list. No indication in the chart that pt is on home O2. OR nurse to contact pt on 03/09/2021 for a more detailed instructions on his Bronchoscopy. Erma Rodriguez RN Department of Pulmonary 5C, [facility] [place] / Pager: [phone] documented in this encounter Plan of Treatment Upcoming Encounters Date Type Department Care Team (Late st Contact Info) Description 12/08/2023 3:30 PM EDT Office Visit Hematology/Oncology at [address] [phone] Chase Mckay MD [facility] DR HEMATOLOGY [place] [address] documented as of this encounter Visit Diagnoses Not on filedocumented in this encounter Care Teams Business Development Assistant Relationship Specialty Start Date End Date None None PCP - General 02/20/21 03/19/21 documented as of this encounter
--- OUTSIDE RECORDS SUMMARY | 2023-11-21 16:01 | XMS_ITS | Encounter Summary ---
Author Organization [facility] [place] [address] Care Team Providers Care Pipe Changer Name Role Phone None Primary Care Provider Unavailabl e Encounter Details Date Type Department Care Team (Late st Contact Info) Description 03/07/2021 [place] [address] Consuelo Monson Social History Tobacco Use Types Packs/Day Years [...] PM EDT Office Visit Hematology/Oncology at [address] [phone] Chase Mckay MD [facility] [place] [address] documented as of this encounter Visit Diagnoses Not on filedocumented in this encounter Care Teams Pipe Changer Relationship Specialty Start Date End Date None None PCP - General 02/20/21 03/19/21 documented as of this encounter
--- OUTSIDE RECORDS SUMMARY | 2023-11-21 16:01 | XMS_ITS | Encounter Summary ---
[place] [address] Care Team Providers Care Erp Engineer Name Role Phone Eren Shah CHELSEA Primary Care Provider [phone] Reason for Referral * Diagnostic Test (Routine) - Closed Specialty Diagnoses / Procedures Referred By Contac t Referred To Contact Radiology Diagnoses Metastatic urothelial carcinoma Procedures IR [facility] Jose Solano MD [facility] [address] [place] [address] [facility] [place] [address] Referral ID Status Reason Start Date Expiration Date V isits Requested Visits Authorized [id number] Closed Specialty Service Requested 03/27/2021 09/24/2022 1 1 Reason for Visit * Diagnostic Test (Routine) - Closed Specialty Diagnoses / Procedures Referred By Contac t Referred To Contact Radiology Diagnoses Metastatic urothelial carcinoma Procedures IR [facility] Jose Solano MD [facility] [address] [place] [address] [facility] [place] [address] Referral ID Status Reason Start Date Expiration Date V isits Requested Visits Authorized [id number] Closed Specialty Service Requested 03/27/2021 09/24/2022 1 1 Encounter Details Date Type Department Care Team (Latest Contact Info) Description 04/02/2021 9:30 AM EST - 04/02/2021 11:59 PM EST Hospital Encounter Radiology at [facility] [place] [address] Jose Lange MD [facility] [address] [place] [address] Metastatic urothelial carcinoma Discharge Disposition: Home Social [...] Sign Reading Time Taken Comments Blood Pressure 113/55 04/02/2021 12:15 PM EST Pulse 94 04/02/2021 11:50 AM EST Temperature 36.4 ??C (97.5 ??F) 04/02/2021 11:[address] Respiratory Rate 16 04/02/2021 12:15 PM EST Oxygen Saturation 97% 04/02/2021 12:15 PM EST Inhaled Oxygen Concentration - - Weight - - Height - - Body Mass Index - - documented in this encounter Discharge Instructions * Discharge Instructions* Glo Levy RN - 04/02/2021 10:53 AM EST Images from the original note were not included. [facility] Department of Vascular and Interventional Radiology Discharge Instructions for your Chest Port You have received a ???Power Port?? , which provides access for infusions and blood draws. What makes this a ???Power Port?? is the unique ability to ???power inject?? contrast (intravenous dye) through the port when getting a CT scan, which produces superior images (pictures). Patients who don???t have these special ports need to have an IV started if they need dye injected for their CT scan. Your port is printed with the letters ???CT?? which can be detected by x- ray to identify it as a ???Power Port?? . You will be provided with an ID card stating the general manager farm and type of port you have. Please carry this with you in a safe place. Bandage: There is a sterile dressing over the port site consisting of small gauze with a clear dressing (Tegaderm or PR0042 ). This dressing should be left in place for 48 hours. If the clear dressing becomes loose you should place tape over the edges to secure it in place. Note: If you have steri-strips beneath your dressing, simply allow them to fall off. Do not peel them off. There may be [place]-coello (skin glue) also, allow this to flake off. Pain: Apply ice bag to site (s) at 30 minute intervals (30 minutes on and 30 minutes off) for 24 hours?? . May use as needed for pain and/or bruising after 24 hours. Bathing: Do not take a shower until 48 hours after your port is placed; after this time you may shower with the dressing in place, then remove it and pat your skin dry. After 48 hours, we recommend that you cover the area with THE AQUA GUARD PROVIDED for 1 week while showering, facing away from theshower stream. You may use a bandaid to cover the site after the 48 hours are up if there is any drainage. No tub baths, whirlpools or swimming for one week following port placement. Flushing the mediport: If your port has not been used, it must be flushed every 30 days. What to expect when your port is accessed: 1. You may feel tenderness the first few times it is accessed but generally this subsides over time. Ask your healthcare provider to use a local anesthetic on the site if discomfort is a problem for you. You may ask for a prescription for a topical cream (EMLA) from your clinician; you may apply athome prior to your appointments, to help numb the skin over your port. 2. The clinician should be wearing sterile gloves and a mask during the access procedure. Anyone inthe room with you should also have a mask on. 3. The skin over and 2 inches around the port should be cleaned with a disinfectant 4. Tell the clinician if you would like the skin numbed (lidocaine) before the access needle is placed. 5. Unless you are unable to take heparin (blood thinner), the port should be injected with a heparin solution before deaccess (at end of each treatment or blood draw). When to call your healthcare provider: ??? If you notice bleeding from the puncture site in your neck, or from the port incision on your chest, you should apply firm pressure over the site for 10-15 minutes, keeping the site covered. Callif you are still bleeding after 10-15 minutes. ??? If you develop pain, redness, drainage or swelling at or around the port site, or the puncture site in the neck ??? If you develop fever (elevation of more than 2 degrees or greater than 101F) and/or shaking chills When to call the Interventional Radiology Department: Please call with any questions or concerns. If it is during regular office hours, please call [phone]. If it is after regular office hours, or on weekends or holidays, please call [phone] and ask to speak to the Stator Plate Washer underground conduit installer for Interventional Radiology. XXX You have received medication during your procedure [...] as of this encounter Progress Notes * Glo Levy RN - 03/28/2021 10:59 AM EST ANGIO NURSING DATABASE Name: BARB BULLARD Date of : 1950 AGE: 70 y.o. [address]: [address] [place] [address] (home) Mobile: Telephone Information: Referring Provider: Jose Lange REASON FOR VISIT: Order Questions Answers Where will study be performed? [facility] Radiology [120] Prefered insertion location: No Preference Is the patient on anticoagulant / antiplatelet therapy ? No Reason for exam and clinical history: Metastatic urothelial carcinoma. Plan for palliative chemotherapy No Known Allergies Pertinent PMH: Patient Active Problem List Diagnosis Code ??? Metastatic urothelial carcinoma C79.10 ??? Abnormal thyroid function test R94.6 Date/Procedure Meds Given/Comments 02/20/21 b/l PCN Placement No abx - covered from meds at OSH 4 mg midazolam, 175 mcg fentanyl ??04/02/21 Right chest port placement ??local lidocaine, 2g Ancef, 3mg midazolam, 150mcg fentanyl ? 6249 to procedure room 6 via stretcher. Onto table supine. All monitors, O2, safety strap in place.Meds per protocol. Laboratory Results: documented in this encounter H&P Notes * Maria Fernanda Suarez PA - 04/02/2021 10:42 AM EST INTERVENTIONAL RADIOLOGY FOCUSED H&P: Procedure: Planned procedure: Port placement The patient's history and physical exam have [...] ASSESSMENT: Sedation Plan: moderate (conscious sedation) ASA: 1: Normally healthy patient Mallampati: I: soft palate, fauces, tonsillar pillars and uvula can be seen Confirm NPO status: Yes History of anesthetic complications: No Current medications reviewed: Yes Allergies reviewed: Yes Source Note - Tito Man DO - 03/29/2021 12:16 PM EST Images from the original note were not included. INTERVENTIONAL RADIOLOGY FOCUSED H&P and PRE-PROCEDURE NOTE: PCP: Eren Shah APRN Referring Provider: Jose Lange Planned Procedure: Planned procedure: Port placement Procedure Indication: Needs durable access for palliative chemotherapy Procedure request received through Interventional Radiology eDH order queue. Order Questions Answers Where will study be performed? [facility] Radiology [120] Prefered insertion location: No Preference Is the patient on anticoagulant / antiplatelet therapy ? No Reason for exam and clinical history: Metastatic urothelial carcinoma. Plan for palliative chemotherapy Presenting Diagnosis/ Complaint: Barb Young is a 70 y.o. female presents for mediport placement. Patient with metastatic urothelial carcinoma. Bilateral percutaneous nephrostomy tubes were placed byIR on 02/20/21. Patient to undergo palliative chemotherapy. Past Medical/Surgical History: Patient Active Problem List Diagnosis Code ??? Metastatic urothelial carcinoma C79.10 ??? Abnormal thyroid function test R94.6 History reviewed. No pertinent past medical history. Past Surgical History: Procedure Laterality Date ??? IR NEPHROSTOMY TUBE PLACEMENT PERCUTANEOUS BILATERAL 02/20/2021 IR Nephrostomy Tube Placement Percutaneous Bilateral [facility] INTERVENTIONL RAD Medications: Current Outpatient Medications on File Prior to Encounter Medication Sig Dispense Refill ??? ferrous sulfate [...] the Last Year: No Significant Family History: History reviewed. No pertinent family history. Pertinent ROS: as per HPI Labs: Imaging: Physical Exam: Pending (to be performed in angio the day of procedure) ASA: Pending (to be assessed in angio the day of procedure) Mallampati Class: Pending (to be assessed in angio the day of procedure) Assessment: 70 y.o. female presents for mediport placement for durable access for palliative chemotherapy. Plan: Planned procedure: Port placement Labs to be performed day of procedure: No labs Sedation: No Sedation Prophylactic antibiotic : Ancef Contrast: No contrast Additional medications for procedure: Lidocaine Planned access site: Left flank Position: Supine Consent: Pending Medications to discontinue (and days held): None Case Urgency:: G- Other (non E or F elective cases) Tito Man DO, MBA Interventional Radiology 03/29/2021 [id number] * Tito Man DO - 03/29/2021 12:16 PM EST Images from the original note were not included. INTERVENTIONAL RADIOLOGY FOCUSED H&P and PRE-PROCEDURE NOTE: PCP: Eren Shah APRN Referring Provider: Jose Lange Planned Procedure: Planned procedure: Port placement Procedure Indication: Needs durable access for palliative chemotherapy Procedure request received through Interventional Radiology eDH order queue. Order Questions Answers Where will study be performed? [facility] Radiology [120] Prefered insertion location: No Preference Is the patient on anticoagulant / antiplatelet therapy ? No Reason for exam and clinical history: Metastatic urothelial carcinoma. Plan for palliative chemotherapy Presenting Diagnosis/ Complaint: Barb Bullard is a 70 y.o. female presents for mediport placement. Patient with metastatic urothelial carcinoma. Bilateral percutaneous nephrostomy tubes were placed byIR on 02/20/21. Patient to undergo palliative chemotherapy. Past Medical/Surgical History: Patient Active Problem List Diagnosis Code ??? Metastatic urothelial carcinoma C79.10 ??? Abnormal thyroid function test R94.6 History reviewed. No pertinent past medical history. Past Surgical History: Procedure Laterality Date ??? IR NEPHROSTOMY TUBE PLACEMENT PERCUTANEOUS BILATERAL 02/20/2021 IR Nephrostomy Tube Placement Percutaneous Bilateral [facility] INTERVENTIONL RAD Medications: Current Outpatient Medications on File Prior to Encounter Medication Sig Dispense Refill ??? ferrous sulfate [...] the Last Year: No Significant Family History: History reviewed. No pertinent family history. Pertinent ROS: as per HPI Labs: Imaging: Physical Exam: Pending (to be performed in angio the day of procedure) ASA: Pending (to be assessed in angio the day of procedure) Mallampati Class: Pending (to be assessed in angio the day of procedure) Assessment: 70 y.o. female presents for mediport placement for durable access for palliative chemotherapy. Plan: Planned procedure: Port placement Labs to be performed day of procedure: No labs Sedation: No Sedation Prophylactic antibiotic : Ancef Contrast: No contrast Additional medications for procedure: Lidocaine Planned access site: Left flank Position: Supine Consent: Pending Medications to discontinue (and days held): None Case Urgency:: G- Other (non E or F elective cases) Tito Man DO, MBA Interventional Radiology 03/29/2021 [id number] documented in this encounter Plan of Treatment Upcoming Encounters Date Type Department Care Team (Late st Contact Info) Description 12/08/2023 3:30 PM EDT Office Visit Hematology/Oncology at [address] [phone] Chase Mckay MD [facility] [address] [place] [address] documented as of this encounter Procedures Procedure Name Priority Date/Time Associated Diagnosis Comments IR MEDIPORT PLACEMENT Routine 04/02/2021 11:54 AM EST Metastatic urothelial carcinoma documented in this encounter Results * IR Mediport Placement (04/02/2021 11:54 AM EST) Anatomical Region Laterality Modality X-Ray Angiograph y Narrative 04/02/2021 4:42 PM EST Interventional Radiology Procedure Note Procedure: Subcutaneous venous port implant Indication: metastatic urothelial carcinoma, durable senior care central venous access for chemotherapy Procedure summary: [...] MAR Action Action Date Dose Rate Site ceFAZolin (Ancef) 2 g in dextrose 5% 100 mL infusion 2 g, Intravenous, ONCE, 1 dose, On Fri04/02/21 at 1100, Administer over 30 Minutes, Redose every 3 hours if CrCl is greater than 20. Redose every 8 hours if CrCl is less than 20., Angio/IR (Day of Procedure), Indication for (Active or Suspected): Prophylaxis New Bag 04/02/2021 11:15 AM EST 2 g 200 mL/hr fentaNYL (pf) (50 mcg/mL) multi-dose injection 25-50 mcg 25-50 mcg, Intravenous, EVERY 3 MIN PRN, Starting on Fri04/02/21 at 1042, Until Fri04/02/21 at 1245, Pain, per unit protocol, - Start dose 50 mcg (reduce dose to 25 mcg if history of sedation sensitivity). - Titration dose 25-50 mcg IV, (based on patient response) every 3 minutes PRN, to maintain procedural pain less than 2 per pain Scale. Maximum dose: 50 mcg/dose, 250 mcg/hour For use in Interventional Radiology (IR) only for procedural sedation with direct provider supervision and verbal order., Angio/IR (Intra-Procedure), Routine Given 04/02/2021 11:40 AM EST 25 mcg Given 04/02/2021 11:33 AM EST 25 mcg Given 04/02/2021 11:24 AM EST 25 mcg lidocaine (Xylocaine) 1% (10 mg/mL) injection 10 mg 10 mg, Subcutaneous, ONCE, 1 dose, On Fri04/02/21 at 1100, For use in Interventional Radiology (IR) only for procedure with direct provider supervision and verbal order., Angio/IR (Intra-Procedure), Routine Given 04/02/2021 11:20 AM EST 10 mg lidocaine-EPINEPHrine (1% - 1:100,000) injection 50 mL 50 mL, Intradermal, ONCE, 1 dose, On Fri04/02/21 at 1100, For use in Interventional Radiology (IR) only for Radiofrequency Ablation of Saphenous Vein procedure with direct provider supervision and verbal order., Angio/IR (Intra-Procedure), Routine Given 04/02/2021 11:20 AM EST 50 mLs midazolam (pf) (Versed) (1 mg/mL) multi-dose injection 0.5-1 mg 0.5-1 mg, Intravenous, EVERY 3 MIN PRN, Starting on Fri04/02/21 at 1042, Until Fri04/02/21 at 1245, Sleep, - Start dose; 1 mg (Reduce dose to 0.5 mg if history of sedation sensitivity). - Titration dose: 0.5 mg - 1 mg (based on patient response) every 3 minutes PRN to obtain RASS score of -3. Maximum dose: 1 mg per dose, 5 mg/hour. For use in Interventional Radiology (IR) only for procedural sedation with direct provider supervision and verbal order., Angio/IR (Intra-Procedure), Routine Given 04/02/2021 11:40 AM EST 0.5 mg Given 04/02/2021 11:33 AM EST 0.5 mg Given 04/02/2021 11:25 AM EST 0.5 mg sodium chloride 0.9 % (flush) (BD PosiFlush Normal Saline 0.9) flush 5 mL 5 mL, Intravenous, 2 TIMES DAILY, First dose on Fri04/02/21 at 1100, Until Discontinued, Angio/IR (Day of Procedure), Routine Given 04/02/2021 11:21 AM EST 5 mLs documented in this encounter Care Teams Erp Engineer Relationship Specialty Start Date End Date Eren Shah DNP PCP - General Family Medicine 03/20/21 06/10/22 documented as of this encounter
--- OUTSIDE RECORDS SUMMARY | 2023-11-21 16:01 | XMS_ITS | Encounter Summary ---
Author Organization [facility] Address [facility] [place] [address] Care Team Providers Care Flat Lock Operator Name Role Phone Eren Shah CHELSEA Primary Care Provider [phone] Reason for Visit * Reason Onset Date Comments Other 03/28/2021 chart review bef ore bronch Encounter Details Date Type Department Care Team (Late st Contact Info) Description 03/28/2021 [place] [phone] Erma Rodriguez, RN Other (chart review before bronch) Social History Tobacco Use Types Packs/Day Years [...] Progress Notes * Erma Rodriguez RN - 03/28/2021 2:32 PM EST I have??reviewed??pt's chart. Pt not on any blood thinner at this time according to pt med list. ?? No indication in the chart that pt is on home O2. ?? Same Day Program Nurse??to contact pt on 04/03 2021 for a more detailed instructions on her Bronchoscopy.?? Erma Rodriguez RN Department of Pulmonary 5C, [facility] Pager: [phone] documented in this encounter Plan of Treatment Upcoming Encounters Date Type Department Care Team (Late st Contact Info) Description 12/08/2023 3:30 PM EDT Office Visit Hematology/Oncology at [address] [phone] Chase Mckay MD [facility] DR HEMATOLOGY [place] [address] documented as of this encounter Visit Diagnoses Not on filedocumented in this encounter Care Teams Flat Lock Operator Relationship Specialty Start Date End Date Eren Shah DNP PCP - General Family Medicine 03/20/21 06/10/22 documented as of this encounter
--- OUTSIDE RECORDS SUMMARY | 2023-11-21 16:01 | XMS_ITS | Encounter Summary ---
Author Organization [facility] Address [facility] [place] [address] Care Team Providers Care Metal Sash Setter Name Role Phone Eren Shah DNP Primary Care Provider [phone] Encounter Details Date Type Department Care Team (Late st Contact Info) Description 04/18/2021 Notes Only Hematology/Oncology at [address] [phone] Elizabeth Mccray, [facility] OFFICE OF CARE MANAGEMENT Social History Tobacco [...] of this encounter Progress Notes * Elizabeth Mccray, ASPHALT DISTRIBUTOR TENDER - 04/18/2021 10:17 AM EST Reason for Referral: Brief assessment of social and emotional needs. Met with pt during her first infusion to introduce myself and role of social professionals to assess/address barriers to getting to and through treatments; address support needs and connect with community services and resources as needed. Family/Social Supports: Pt identified her daughter as her primary support. Living Situation/Daily Activities/Transportation: Pt moved in with her daughter and son in law after she was discharged from the hospital at the end of January. Her daughter's home is open and accessible. Pt manages her daily chores and activities. Her daughter assists as needed. Pt does drive. [employer] transported her today. Pt concerned about the cost to daughter for travel and assisted pt with 2/$25 gas cards from the [employer] donation. Work/Finances/Insurance: Pt is retired having worked 20 years at a [employer]. She has Medicare A&B. She indicated she has applied for Medicaid. Gave pt the contact number and NSA to MARIA E/Richard as a resource to her. Advance Directives: Pt indicated she completed a DNR' and it is in file at [facility]. Pt gave permission to see if we can get a copy for her record. Gave pt a copy of the [place] advance directive booklet/form to review also. (Add: Unable to find any forms on [facility] site.) Utilization of Community Resources: Medicaid application in; food assistance; sister contacted the [employer] for financial assistance for pt. Joie/Spirtuality: Adjustment to Illness/Mental Health Concerns: Pt shared she feels she is coping as best she can. She had several friends who passed from cancer and she had long conversation with them. She feels wellsupported by her daughter and son in law. Offered support. Identified Needs: Pt did not identify specific needs but assisted with travel costs and gave her information for PFS. Will reassess needs when pt returns in 3 weeks. Referrals: [facility] Social Work Interventions: Brief assessment Supportive Counseling Financial resources Patient Financial Assistance/Insurance Plan: Informed pt of ASPHALT DISTRIBUTOR TENDER availability and contact information. Will follow to assess/address psychosocial needs. HELEN Trinh, SEISMIC PLOTTER, OSW-C Photogrammetric Surveyor [facility] documented in this encounter Plan of Treatment Upcoming Encounters Date Type Department Care Team (Late st Contact Info) Description 12/08/2023 3:30 PM EDT Office Visit Hematology/Oncology at [address] [phone] Chase Mckay MD [facility] [place] [address] documented as of this encounter Visit Diagnoses Not on filedocumented in this encounter Care Teams Metal Sash Setter Relationship Specialty Start Date End Date Eren Shah DNP PCP - General Family Medicine 03/20/21 06/10/22 documented as of this encounter
--- OUTSIDE RECORDS SUMMARY | 2023-11-21 16:01 | XMS_ITS | Encounter Summary ---
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 Social History Tobacco Use Types Packs/Day Years [...] PM EDT Office Visit Hematology/Oncology at [address] [phone] Chase Mckay MD [facility] [address] [place] [address] documented as of this encounter Procedures Procedure Name Priority Date/Time Associated Diagnosis Comments HEMOGRAM STAT 04/16/2021 11:56 AM EST Metastatic urothelial carcinoma DIFFERENTIAL, AUTOMATED STAT 04/16/2021 11:56 AM EST Metastatic urothelial carcinoma HC CBC,PLT & AUTO DIFF STAT 11:56 AM EST Metastatic urothelial carcinoma HC THYROID STIMULATING HORMONE, SERUM STAT 04/16/2021 11:56 AM EST Metastatic urothelial carcinoma Abnormal results of thyroid function studies HC FREE THYROXINE (T4) STAT 11:56 AM EST Metastatic urothelial carcinoma 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 COMPREHENSIVE METABOLIC PANEL (NON-FASTING) STAT 04/16/2021 11:56 AM EST Metastatic urothelial carcinoma documented in this encounter Results * (ABNORMAL) Differential, Automated (04/16/2021 11:56 AM EST) Neutrophils % 76.4 % [facility] Neutr Abs (ANC) 17.99(H) 1.70 - 6.10 x10(3)/[facility] Lymphocytes % 10.3 % [facility] Lymphocytes Abs 2.4 0.9 - 3.2 x10(3)/[facility] Monocytes % 5.0 % [facility] Monocyte Abs 1.2(H) 0.3 - 0.9 x10(3)/[facility] Eosinophils % 7.1 % [facility] Eosinophils Abs 1.7(H) 0.0 - 0.4 x10(3)/[facility] Basophils % 0.5 % [facility] Basophils Abs 0.1 0.0 - 0.1 x10(3)/[facility] Immature Gran % 0.70 % [facility] Comment: Immature granulocytes(IG's)percentage and absolute count will include metamyelocytes, myelocytes, and promyelocytes. Blood smears from CBCs yielding IG's will be scanned manually for concordance. If this scan disagrees with the automated IG or if promyelocytes are noted, a manual differential will be performed. [place] Gran Abs 0.16(H) 0.00 - 0.04 x10(3)/[facility] Blood 04/16/2021 11:5 6 AM EST 04/16/2021 12:00 PM EST Narrative Resulting Agency Comment Spec In Lab Jose Lange MD HEMATOLOGY ORDERABLE S [facility] [place] [address] * (ABNORMAL) Hemogram (04/16/2021 11:56 AM EST) WBC 23.5(H) 4.0 - 9.5 x10(3)/[facility] LABORATORY RBC 3.63(L) 4.00 - 5.21 x10(6)/[facility]ORY Hemoglobin 9.2(L) 11.7 - 15.5 g/dL [facility] Hematocrit 30.1(L) 35.7 - 45.8 % [facility] MCV 82.9 82.6 - 94.4 fL [facility] MCH 25.3(L) 27.1 - 32.0 pg [facility] MCHC 30.6(L) 31.7 - 35.0 g/dL [facility] Platelets 873(H) 145 - 357 x10(3)/[facility]OR[facility]ORY RDWSD 61.5(H) 37.0 - 46.0 fL [facility] RDWCV 20.1(H) 11.5 - 14.1 % [facility] MPV 8.8 7.6 - 12.9 [facility] nRBC % Auto 0.0 % [facility] nRBC Abs Auto 0.000 0.000 - 0.000 x10(3)/[facility] Blood 04/16/2021 11:5 6 AM EST 04/16/2021 12:00 PM EST Narrative Resulting Agency Comment Spec In Lab Jose Lange MD HEMATOLOGY ORDERABLE S [facility] [place] [address] * (ABNORMAL) Comprehensive metabolic panel (non-fasting) (04/16/2021 11:56 AM EST) Glucose Lvl 94 65 - 199 mg/dL [facility] Comment:Diabetes: >=200 mg/d L plus symptoms BUN 29(H) 8 - 18 mg/dL [facility] Creatinine 1.51(H) 0.70 - 1.20 mg/dL [facility] Sodium 136 135 - 145 mmol/L [facility] Potassium 4.5 3.5 - 5.0 mmol/L [facility] Comment: Please note: ??Patients with WBC >100,000 may have falsely elevated Potassium levels. ??For accurate Potassium quantification in these patients send serum separator tube (gold top) for subsequent determinations. ??Contact the Clinical Chemistry Laboratory if there are any questions. Chloride 105 98 - 107 mmol/L [facility] CO2 19(L) 22 - 31 mmol/L [facility] Anion Gap 12 5 - 15 mmol/L [facility] Calcium 10.0 8.5 - 10.5 mg/dL [facility] Total Protein 8.2(H) 6.1 - 8.0 g/dL [facility] Albumin 3.5 3.2 - 5.2 g/dL [facility] AST 11 0 - 30 unit/L [facility] ALT 14 0 - 30 unit/L [facility] Alk Phos 85 35 - 105 unit/L [facility] Total Bilirubin 0.3 0.2 - 1.3 mg/dL [facility] Estimated GFR 35(L) >=60 mL/min/1. 73 m?? [facility] Comment: This patient? s estimated glomerular filtration rate (eGFR) is between 35 mL/min/1.73 m2 (patients with less muscle mass) and 40 mL/min/1.73 m2 (patients with more muscle mass) [...] and symptoms in addition to eGFR. Blood 04/16/2021 11:5 6 AM EST 04/16/2021 12:00 PM EST Narrative Resulting Agency Comment Spec In Lab Jose Lange MD CHEMISTRY ORDERABLES [facility] [place] [address] * (ABNORMAL) T4, free (04/16/2021 11:56 AM EST) Free T4 0.85(L) 0.93 - 1.70 ng/dL [facility] Comment: Reference Interval (ng/dL): Females: ??First Trimester: 0.97-1.68 ??Second Trimester: 0.77-1.51 ??Third Trimester: 0.77-1.49 Blood 04/16/2021 11:5 6 AM EST 04/16/2021 12:00 PM EST Narrative Resulting Agency Comment Spec In Lab Jose Lange MD CHEMISTRY ORDERABLES Performing Organization Address [facility] Co de Phone Number [facility] [place] [address] * TSH (04/16/2021 11:56 AM EST) Pathologist [facility] TSH 2.98 0.27 - 4.20 mcIU/mL [facility] Comment: Reference Interval (mcIU/mL): Females: ??First Trimester: 0.23-3.88 ??Second Trimester: 0.22-3.90 ??Third Trimester: 0.44-4.66 Blood 04/16/2021 11:5 6 AM EST 04/16/2021 12:00 PM EST Narrative Resulting Agency Comment Spec In Lab Jose Lange MD CHEMISTRY ORDERABLES Performing Organization Address [facility] Co de Phone Number [facility] [place] [address] documented in this encounter Visit Diagnoses Diagnosis Metastatic urothelial carcinoma Secondary malignant neoplasm of other urinary organs Abnormal results of thyroid function studies Nonspecific abnormal results of thyroid function study 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
--- OUTSIDE RECORDS SUMMARY | 2023-11-21 16:01 | XMS_ITS | Encounter Summary ---
Author Organization [facility] [place] [address] Care Team Providers Care Collection Systems Consultant Name Role Phone Eren Shah CHELSEA Primary Care Provider [phone] Encounter Details Date Type Department Care Team (Late st Contact Info) Description 03/28/2021 [place] [phone] Oralia Null Social History Tobacco Use Types [...] PM EDT Office Visit Hematology/Oncology at [address] [phone] Chase Mckay MD [facility] DR HEMATOLOGY [place] [address] documented as of this encounter Visit Diagnoses Not on filedocumented in this encounter Care Teams Collection Systems Consultant Relationship Specialty Start Date End Date Eren Shah DNP PCP - General Family Medicine 03/20/21 06/10/22 documented as of this encounter
--- OUTSIDE RECORDS SUMMARY | 2023-11-21 16:01 | XMS_ITS | Encounter Summary ---
Author Organization [facility] Jose Roberto [place] [address] Care Team Providers Care Patent Agent Name Role Phone Eren Shah DNP Primary Care Provider [phone] Encounter Details Date Type Department Care Team (Late st Contact Info) Description 04/04/2021 12:51 PM EST Anesthesia Event [place] [phone] Blayne Aldridge MD [facility] [place] [address] Trevon Saldivar CRNA [facility] [place] [address] Anesthesia Record Procedure Summary Procedure Name Responsible Anesthesiologist Anesthesia Start Time Anesthesia Stop Time BRONCH, W ENDOBRONCHIAL ULTRASOUND (EBUS) GUIDED SAMPLING, 3+ NODES (WRVU 4.96) Blayne Aldridge MD 04/04/21 1251 04/04/21 1421 Events Date Time Event Comment 04/04/2021 1220 1251 AN Verify 1251 Start 1251 An Start Data 1258 An Induction 1303 Anesthesia Ready 1307 Procedure Start 1307 Quick Note Jet ventilation initiated, rigid bronch in use 1411 an stop data 1421 Recovery or ICU Handoff Alice ent care was transferred to the destination unit staff after review of the patient's medical history, current anesthetic/surgical status and plan, according to the Provider Handoff Checklist. 1421 Stop Meds Name Total Midazolam 2 mg fentaNYL 150 mcg IV Lidocaine 50 mg Propofol 160 mg Propofol INF 389.62 mg Esmolol 40 mg Rocuronium 50 mg Ondansetron 4 mg Dexamethasone 8 mg PHENYLephrine 160 mcg Sugammadex 260 mg lactated ringers infusion 800 mL * Agents Name O2 Air N2O * Blood No blood administrations on file. Lines, Drains, and Airways Type Details Placement Removal (RETIRED) Implanted Port - Single Lumen (non-apheresis) 04/02/21; 1138; infraclavicular fossa, right; power injectable port; superior vena cava; Brooks [facility]EL[facility]; 8Fr NM Dignity CT Port Ref# [id number] Lot# [id number] expires 09/25/2024 04/02/21 1138 by Glo Levy RN (RETIRED) PICC Line - Single Lumen 02/20/21; 1200; [facility]aced at [facility] LDA not present upon assessment; 08/07/23; 2314 02/20/21 1200 by Oralia Campbell RN 08/07/23 2314 by Angie Pereyra RN Nephrostomy Tube 02/20/21; 1315; righ t flank; leg bag to dependent drainage; 10fr x 22cm nephroureteral stent placement ; LDA not present upon assessment; 01/18/22; 1327 02/20/21 1315 by Glo Levy RN 01/18/22 1327 by Gail Haji RN (RETIRED) Peripheral IV Line - Single Lumen 04/02/21; 1051; metacarpal vein (top of hand), right; zhim-pna-kfduos catheter system; Anatomical Landmarks; 22 gauge; jpmccall; distraction; 04/04/21; 1542 04/02/21 1051 by Cortney Taylor RN 04/04/21 1542 by Margie Park RN Incision 04/02/21; 1137; Righ t; chest; horizontal; LDA not present upon assessment; 04/04/23; 1342 04/02/21 1137 by Glo Levy RN 04/04/23 1342 by Nancy Lozano RN Incision 04/02/21; 1137; Righ t; neck; non-laparascopic puncture; LDA not present upon assessment; 04/04/23; 1342 04/02/21 1137 by Glo Levy RN 04/04/23 1342 by Nancy Lozano, RN (RETIRED) Peripheral IV Line - Single Lumen 04/04/21; 1238; metacarpal vein (top of hand), right; [id number]-oca-[id number] catheter system; 22 gauge, 1 in length; Debby Avila RN; distraction, tolerated well, appears comfortable, age-appropriate response; no longer indicated; 04/08/21; 0650 04/04/21 1238 by Sonja Avila RN 04/08/21 0650 by Ann Byrne RN documented in this encounter Social History Tobacco Use Types Packs/Day [...] on file documented as of this encounter OR Notes * Anesthesia Postprocedure Evaluation - Blayne Aldridge MD - 04/05/2021 10:35 AM EST Department of Anesthesiology Post-procedure Note Patient: Barb Bullard Procedure Summary Date: 04/04/21 Room / Location: [facility] OR [facility] MAIN OR Anesthesia Start: 1251 Anesthesia Stop: 142 Procedures: BRONCH, W ENDOBRONCHIAL ULTRASOUND (EBUS) GUIDED SAMPLING, 3+ NODES (WRVU 5.21) (N/A ) BRONCHOSCOPY, RIGID OR FLEXIBLE, WITH BRONCHIAL ALVEOLAR LAVAGE (WRVU 2.88) (N/A Chest) Diagnosis: Abnormal chest CT Airway obstruction Lung mass Mediastinal adenopathy (Lung mass, airway obstruction, mediastinal adenopathy/ Rigid bronchoscopy with EBUS/ GA/ Backer) Surgeons: Alonzo Cevallos MD Responsible Provider: Blayne Aldridge MD Anesthesia Type: general ASA Status: 3 All Anesthesia Providers: Anesthesiologist: Blayne Aldridge MD STORE CLERK CHECKER: Trevon Saldivar CRNA Student Nurse Hotel Engineer: Kevin Sidhu Vitals Value Taken Time BP 114/63 04/04/21 1515 Temp 36.1 ??C (97 ??F) 04/04/21 1416 Pulse 113 04/04/21 1416 Resp 16 04/04/21 1445 SpO2 94 % 04/04/21 1523 Pain Level 0 04/04/21 1445 Vitals shown include unvalidated device data. Patient Location: PACU/[facility] Level of Consciousness: Awake and Alert Pain Management: Satisfactory Analgesia PONV: None Cardiovascular Status: At Baseline and Hemodynamically Stable Respiratory Status: At Baseline and Room Air Postoperative Fluid Status: Intravascular EUvolemia Possible Anesthetic Complications: NONE apparent at time of evaluation Final Primary Anesthesia Type: General (The anesthetic type performed was the same as planned.) Comments: Blayne Aldridge MD * Anesthesia Preprocedure Evaluation - Blayne Aldridge MD - 04/04/2021 12:18 PM EST Pre-Anesthesia Evaluation for: Barb Bullard a 70 y.o. female. Procedure(s): BRONCH, W ENDOBRONCHIAL ULTRASOUND (EBUS) GUIDED SAMPLING, 3+ NODES (WRVU 5.21) BRONCHOSCOPY, RIGID OR FLEXIBLE, WITH BRONCHIAL ALVEOLAR LAVAGE (WRVU 2.88) Patient Active Problem List Diagnosis ??? Metastatic urothelial carcinoma ??? Abnormal thyroid function test No past medical history on file. Past Surgical History: Procedure Laterality Date ??? IR MEDIPORT PLACEMENT 04/02/2021 IR Mediport Placement 04/02/2021 Yuval Sinclair PA [facility] INTERVENTIONL RAD ??? IR NEPHROSTOMY TUBE PLACEMENT PERCUTANEOUS BILATERAL 02/20/2021 IR Nephrostomy Tube Placement Percutaneous Bilateral [facility] INTERVENTIONL RAD Social History Tobacco Use ??? Smoking status: Former Smoker Types: Cigarettes Quit date: 07/04/2014 Years since quittin.7 ??? Smokeless tobacco: Never Used Substance Use Topics ??? Alcohol use: Not on file Social History Substance and Sexual Activity Drug Use Not on file No Known Allergies Medications: MAR and/or home medications have been reviewed. Physical Exam: Preprocedure Vitals Current as of 04/04/21 1218 No BP, pulse, respiration, SpO2, or temperature recorded. Height: Weight: BMI: IBW: Airway Assessment: Mallampati: I TM distance: >3 FB Neck ROM: full Cardiovascular Assessment: Rhythm: regular Pulmonary Assessment: breath sounds clear to auscultation (+) decreased breath sounds Dental Assessment: Misc Assessment: Patient is wearing No contact(s). IV access: Peripheral line Last Filed Perioperative Cognitive Screening None Anesthesia Plan: ASA 3 general, with a(n) intravenous induction Brief HPI: Barb Bullard is a 70 y.o. female who was recently hospitalized for weakness, fatigue, weight loss and decreased urine output. She was found to have acute kidney injury, a UTI and CT imagingshowed an obstructive uropathy with significant hydroureter, hydronephrosis and a large bladder mass that was diagnosed as a high-grade urothelial cell carcinoma. Her chest CT also showed obstructionof the LLL bronchus. Here for BRONCH, W ENDOBRONCHIAL ULTRASOUND (EBUS) GUIDED SAMPLING, 3+ NODES (WRVU 5.21) (N/A ) ?BRONCHOSCOPY, RIGID OR FLEXIBLE, WITH BRONCHIAL ALVEOLAR LAVAGE (WRVU 2.88) (N/A Chest) Patient Active Problem List: Metastatic urothelial carcinoma (C79.10) Abnormal thyroid function test (R94.6) No past medical history on file. METS:>4 Cardiac Symptoms: none LABS: Type and Screen: No results found for: ABORH Past anesthetic problems: none NPO status: Reviewed and appropriate Anesthetic Plan: GA, douglas airway, get ventillation, ETT back up, piv Monitoring: Standard ASA monitors I have seen and examined the patient. I have reviewed the medical record and pertinent laboratory information. I have noted the major medical issues to include abcd. I have reviewed risks from minor to major as outlined in the anesthesia consent form. I have highlighted risks related to abcd. The patient acknowledged These risks and would like to proceed with the anesthesia plan. Region - Other Informed Consent: Anesthetic plan and risks discussed with patient. Use of blood products discussed with patient who. Plan discussed with STORE CLERK CHECKER and attending. Anesthesia Screening documented in this encounter Plan of Treatment Upcoming Encounters Date Type Department Care Team (Late st Contact Info) Description 12/08/2023 3:30 PM EDT Office Visit Hematology/Oncology at [address] [phone] Chase Mckay MD [facility] [place] [address] documented as of this encounter Visit Diagnoses Not on filedocumented in this encounter Administered Medications Inactive Administered Medications - up to 3 most recent administrations Medication Order MAR Action Action Date Dose Rate Site dexamethasone (Decadron) injection Intravenous, PRN, Starting on Fri04/04/21 at 1303, Until Fri04/04/21 at 1424, Anesthesia Intra-op, Routine Given 04/04/2021 1:03 PM EST 8 mg esmoloL (Brevibloc) (10 mg/mL) injection Intravenous, PRN, Starting on Fri04/04/21 at 1301, Until Fri04/04/21 at 1424, Anesthesia Intra-op, Routine Given 04/04/2021 1:49 PM EST 20 mg Given 04/04/2021 1:01 PM EST 20 mg fentaNYL (pf) (50 mcg/mL) multi-dose injection Intravenous, PRN, Starting on Fri04/04/21 at 1259, Until Fri04/04/21 at 1424, Anesthesia Intra-op, Routine Given 04/04/2021 1:46 PM EST 50 mcg Given 04/04/2021 1:18 PM EST 50 mcg Given 04/04/2021 12:59 PM EST 50 mcg lactated ringers infusion 1,000 mL, at 100 mL/hr, Intravenous, CONTINUOUS, Starting on Fri04/04/21 at 1300, Until Fri04/04/21 at 1542, Day of Surgery (Day of Procedure) Restarted 04/04/2021 12:51 PM EST New Bag 04/04/2021 12:39 PM EST 1,000 mLs 100 mL/hr lidocaine (pf) (Xylocaine) (20 mg/mL) 2% injection syringe Intravenous, PRN, Starting on Fri04/04/21 at 1258, Until Fri04/04/21 at 1424, Anesthesia Intra-op, Routine Given 04/04/2021 12:58 PM EST 50 mg midazolam (pf) (Versed) (1 mg/mL) multi-dose injection Intravenous, PRN, Starting on Fri04/04/21 at 1251, Until Fri04/04/21 at 1424, Anesthesia Intra-op, Routine Given 04/04/2021 1:18 PM EST 1 mg Given 04/04/2021 12:51 PM EST 1 mg ondansetron (pf) (Zofran) (2 mg/mL) injection Intravenous, PRN, Starting on Fri04/04/21 at 1303, Until Fri04/04/21 at 1424, Anesthesia Intra-op, Routine Given 04/04/2021 1:03 PM EST 4 mg PHENYLephrine in NS (PF) (CROW-SYNEPHRINE) 0.8 mg/10 mL (80 mcg/mL) multi-dose injection Syrg Intravenous, PRN, Starting on Fri04/04/21 at 1325, Until Fri04/04/21 at 1424, Anesthesia Intra-op, Routine Given 04/04/2021 1:49 PM EST 80 mcg Given 04/04/2021 1:25 PM EST 80 mcg propofoL (Diprivan) (10 mg/mL) infusion Intravenous, CONTINUOUS PRN, Starting on Fri04/04/21 at 1302, Until Fri04/04/21 at 1424, Anesthesia Intra-op, Routine Rate/Dose Change 04/04/2021 1:41 PM EST 150 mcg/kg/min 57.96 mL/hr Rate/Dose Change 04/04/2021 1:21 PM EST 125 mcg/kg/min 48. 3 mL/hr New Bag 04/04/2021 1:02 PM EST 100 mcg/kg/min 38.64 mL/ hr propofoL (Diprivan) 10 mg/mL bolus injection (Anesthesia) Intravenous, PRN, Starting on Fri04/04/21 at 1258, Until Fri04/04/21 at 1424, Anesthesia Intra-op Given 04/04/2021 1:41 PM EST 40 mg Given 04/04/2021 12:58 PM EST 120 mg rocuronium (Zemuron) (10 mg/mL) multi-dose injection Intravenous, PRN, Starting on Fri04/04/21 at 1259, Until Fri04/04/21 at 1424, Anesthesia Intra-op, Routine Given 04/04/2021 1:39 PM EST 10 mg Given 04/04/2021 12:59 PM EST 40 mg sugammadex (Bridion) 100 mg/mL injection Intravenous, PRN, Starting on Fri04/04/21 at 1356, Until Fri04/04/21 at 1424, Anesthesia Intra-op, Routine Given 04/04/2021 1:56 PM EST 260 mg documented in this encounter Care Teams Patent Agent Relationship Specialty Start Date End Date Eren Shah DNP PCP - General Family Medicine 03/20/21 06/10/22 documented as of this encounter
--- OUTSIDE RECORDS SUMMARY | 2023-11-21 16:01 | XMS_ITS | Encounter Summary ---
Author Organization [facility] Address [facility] [place] [address] Care Team Providers Care Timber Sizer Name Role Phone Eren Shah CHELSEA Primary Care Provider +1 [phone] Encounter Details Date Type Department Care Team (Latest Contact Info) Description 04/04/2021 11:57 AM EST - 04/04/2021 3:30 PM [facility] Hospital [place] [phone] Alonzo Cevallos MD [facility] OBSTETRICS [place] [address] Discharge Disposition: Home Social History Tobacco Use [...] have prescribed an antibiotic course (Augmentin) to [facility] in [place] ??? We will be in contact with [...] our office at . There is someone car construction superintendent to speak with 18/11. Alonzo Cevallos MD, [...] Section of Pulmonary & Critical Care Pager: [phone] documented in this encounter Miscellaneous Notes * [...] Descriptions: Airway Examination: An Olympus P190 and 9VF238 flexible bronchoscope and Oscar Storz 12 mm/43 [...] (4 lymph node stations): The Olympus EBUS ([id number]) scope was inserted, lymph node inspection undertaken [...] to continue with the procedure. Tumor/Tissue Debulking (30649): The left lower lobe was accessed and [...] Topical cold saline was administered. Therapeutic Suctioning (47840): At least 15-20 min of operative time [...] Section of Pulmonary & Critical Care Pager: [phone] documented in this encounter Plan of Treatment Upcoming Encounters Date Type Department Care Team (Late st Contact Info) Description 12/08/2023 3:30 PM EDT Office Visit Hematology/Oncology at [address] [phone] Chase Mckay MD [facility] DR HEMATOLOGY [place] [address] documented as of this encounter Procedures Procedure Name Priority Date/Time Associated Diagnosis Comments XR CHEST ONE VIEW STAT 04/04/2021 3:0 3 PM EST SPECIMEN TO PATHOLOGY Routine 04/04/2021 1:54 PM EST SOLID TUMOR NGS PANEL Routine 04/04/2021 1:52 PM EST SURGICAL PATHOLOGY REPORT Routine 04/04/2021 1:52 PM EST NON-TOMBSTONE ERECTOR FINAL REPORT Routine 04/04/2021 1:41 PM EST NON-TOMBSTONE ERECTOR FINAL REPORT Routine 04/04/2021 1:41 PM EST NON-TOMBSTONE ERECTOR FINAL REPORT Routine 04/04/2021 1:41 PM EST NON-TOMBSTONE ERECTOR FINAL REPORT Routine 04/04/2021 1:41 PM EST CYTOPATHOLOGY NON-GYNECOLOGICAL Routine 04/04/2021 1:41 PM EST CYTOPATHOLOGY NON-GYNECOLOGICAL Routine 04/04/2021 1:41 PM EST CYTOPATHOLOGY NON-GYNECOLOGICAL Routine 04/04/2021 1:41 PM EST CYTOPATHOLOGY NON-GYNECOLOGICAL Routine 04/04/2021 1:41 PM EST CYTOPATHOLOGY NON-GYNECOLOGICAL Routine 04/04/2021 1:12 PM EST Bronchoscopy, Diagnostic W Lavage ([id number]) Yes 04/04/2021 12:49 PM EST Abnormal chest CT Airway obstruction Lung mass Mediastinal adenopathy [facility] Ebus Guided Sampl 3/> Node Station/Strux (75554) Yes 04/04/2021 12:49 PM EST Abnormal chest [...] have questions please contact the health career based intervention coordinator that requested your imaging first. ? Electronically signed by: Courtney Mcfadden MD, [facility] ([phone]), at 04/04/2021 3:14 PM Narrative 04/04/2021 3:14 [...] who have questions please contactthe health career based intervention coordinator that requested your imaging first. Alonzo Cevallos MD IMG DX ORDERABLES * Specimen to Pathology (04/04/2021 1:54 PM EST) AP Specimen 04/04/2021 1:54 PM EST 04/04/2021 1:54 PM EST Narrative [facility] - 04/04/2021 1:54 PM EST Specimen requisition ordered. ??Separate Pathology report to follow Alonzo Cevallos MD PATHOLOGY/CYTOLOGY O RDERABLES [facility] [place] [address] * Surgical Pathology Report (04/04/2021 1:52 PM EST) FINAL DIAGNOSIS (AP) [id number] ? Location: [facility]; [facility]; A The signing pathologist has (i) examined [...] was performed according to the director of cardiac rehabilitation's instructions using Anti-PD-L1 (22C3, pharmDX) antibody. Electronically signed by: ?Herbert Ford MD Verified: ??04/11/2021 8:14 ?? Pathologist Performed at: ??-[facility] Dept. of Pathology, [place], [place] ?Surgical Pathology DIAGNOSIS A - Lung, ??left lower lobe mass, debulking: ??- Adenocarcinoma, consistent with lung primary. Electronically signed by: ?Sana Dowell MD Verified: ??04/06/2021 11:16 ??Pathologist Performed at: ??-[facility] Dept. of Pathology, [place], [place] DISCUSSION Sections show an invasive, predominantly [...] labeled A1. ??shb 04/11/2021 8:14 AM EST [facility] 04/04/2021 1:52 PM EST Alonzo Cevallos MD PATHOLOGY/CYTOLOGY O RDERABLES [facility] [place] [address] * Solid Tumor NGS Panel (04/04/2021 1:52 PM EST) Tissue 04/04/2021 1:52 PM EST 04/09/2021 12:17 PM EST Narrative Resulting Agency Comment Spec In Lab Alonzo Cevallos MD PATHOLOGY/CYTOLOGY O RDERABLES [facility] [place] [address] * Non-Neurosurgical Physician Assistant Final Report (04/04/2021 1:41 PM EST) Diagnosis Discussion [id number] ? Location: [facility]; [facility]; The signing pathologist has (i) examined the relevant preparation(s) for the specimen(s) and (ii) rendered or confirmed the diagnosis(es). . ? Non-Neurosurgical Physician Assistant Final DIAGNOSIS Negative for Malignancy Electronically signed by: ?Pierce CAMARGO, Keven Verified: ??04/06/2021 17:47 ??Pathologist Performed at: ??-[facility] Dept. of Pathology, [place], [place] DISCUSSION Lymph node, station 11R (EBUS-guided [...] Cell Block 1. 04/06/2021 5:47 PM EST [facility] LYMPH NODE SPECIMEN / Unknown 04/04/2021 1:41 PM EST 04/04/2021 1:41 PM EST Alonzo Cevallos MD PATHOLOGY/CYTOLOGY O COSMO Performing Organization Address [facility]/ZIP Co de Phone Number [facility] [place] [address] * Non-Neurosurgical Physician Assistant Final Report (04/04/2021 1:41 PM EST) Diagnosis Discussion [id number] ? Location: [facility]; [facility]; A The signing pathologist has (i) examined the relevant preparation(s) for the specimen(s) and (ii) rendered or confirmed the diagnosis(es). . ? Non-Neurosurgical Physician Assistant Final DIAGNOSIS Negative for Malignancy Electronically signed by: ?Keven Pelayo MD Verified: ??04/06/2021 17:46 ??Pathologist Performed at: ??-[facility] Dept. of Pathology, [place], [place] DISCUSSION Lymph node, station 4L (EBUS-guided [...] Cell Block 1. 04/06/2021 5:46 PM EST [facility] LYMPH NODE SPECIMEN / Unknown 04/04/2021 1:41 PM EST 04/04/2021 1:41 PM EST Alonzo Cevallos MD PATHOLOGY/CYTOLOGY O COSMO [facility] [place] [address] * Non-Neurosurgical Physician Assistant Final Report (04/04/2021 1:41 PM EST) Diagnosis Discussion [id number] ? Location: [facility]; [facility]; A The signing pathologist has (i) examined the relevant preparation(s) for the specimen(s) and (ii) rendered or confirmed the diagnosis(es). . ? Non-Neurosurgical Physician Assistant Final DIAGNOSIS Negative for Malignancy Electronically signed by: ?Pierce CAMARGO, Keven Verified: ??04/06/2021 17:40 ??Pathologist Performed at: ??-[facility] Dept. of Pathology, [place], [place] DISCUSSION Lymph node, station 4R (EBUS-guided [...] Cell Block 1. 04/06/2021 5:40 PM EST [facility] LYMPH NODE SPECIMEN / Unknown 04/04/2021 1:41 PM EST 04/04/2021 1:41 PM EST Alonzo Cevallos MD PATHOLOGY/CYTOLOGY O RDERABLES [facility] [place] [address] * Non-Neurosurgical Physician Assistant Final Report (04/04/2021 1:41 PM EST) Diagnosis Discussion [id number] ? Location: [facility]; [facility]; A The signing pathologist has (i) examined the relevant preparation(s) for the specimen(s) and (ii) rendered or confirmed the diagnosis(es). . ? Non-Neurosurgical Physician Assistant Final DIAGNOSIS Positive for Malignancy Electronically signed by: ?Pierce CAMARGO, Keven Verified: ??04/06/2021 17:35 ??Pathologist Performed at: ??-[facility] Dept. of Pathology, [place], [place] DISCUSSION Lymph node, station 7 (EBUS-guided [...] ??left lower lobe mass lung ?? debulking ([id number]), the ??immunostain findings in the present case are compatible ?with lung primary. PD-L1 immunohistochemistry and molecular panel are ordered on the ? concurrent surgical specimen ([id number]). --- Immunohistochemistry Studies --- Interpretation: See note. [...] Cell Block 1. 04/06/2021 5:35 PM EST [facility] LYMPH NODE SPECIMEN / Unknown 04/04/2021 1:41 PM EST 04/04/2021 1:41 PM EST Alonzo Cevallos MD PATHOLOGY/CYTOLOGY O COSMO Performing Organization Address City/[facility]/ZIP Co de Phone Number [facility] [place] [address] * Cytopathology Non-Gynecological (04/04/2021 1:41 PM EST) AP Specimen 04/04/2021 1:41 PM EST 04/04/2021 1:41 PM EST Narrative [facility] - 04/04/2021 1:41 PM EST Specimen requisition ordered. ??Separate Pathology report to follow Alonzo Cevallos MD PATHOLOGY/CYTOLOGY O COSMO Performing Organization Address [facility]/ZIP Co de Phone Number [facility] [place] [address] * Cytopathology Non-Gynecological (04/04/2021 1:41 PM EST) AP Specimen 04/04/2021 1:41 PM EST 04/04/2021 1:41 PM EST Narrative [facility] - 04/04/2021 1:41 PM EST Specimen requisition ordered. ??Separate Pathology report to follow Alonzo Cevallos MD PATHOLOGY/CYTOLOGY O RDERAJASS Performing Organization Address City/[facility]/ZIP Co de Phone Number [facility] [place] [address] * Cytopathology Non-Gynecological (04/04/2021 1:41 PM EST) AP Specimen 04/04/2021 1:41 PM EST 04/04/2021 1:41 PM EST Narrative [facility] - 04/04/2021 1:41 PM EST Specimen requisition ordered. ??Separate Pathology report to follow Alonzo Cevallos MD PATHOLOGY/CYTOLOGY O RDVERONIKA Performing Organization Address [facility]/[place] [address] * Cytopathology Non-Gynecological (04/04/2021 1:41 PM EST) AP Specimen 04/04/2021 1:41 PM EST 04/04/2021 1:41 PM EST Narrative [facility] - 04/04/2021 1:41 PM EST Specimen requisition ordered. ??Separate Pathology report to follow Alonzo Cevallos MD PATHOLOGY/CYTOLOGY O COSMO Performing Organization Address [facility] [place] [address] * Cytopathology Non-Gynecological (04/04/2021 1:12 PM EST) AP Specimen 04/04/2021 1:12 PM EST 04/04/2021 1:12 PM EST Narrative [facility] - 04/04/2021 1:12 PM EST Specimen requisition ordered. ??Separate Pathology report to follow Alonzo Cevallos MD PATHOLOGY/CYTOLOGY O COSMO Performing Organization Address [facility] [place] [address] documented in this encounter Visit Diagnoses Not [...] CRNA) documented in this encounter Care Teams Timber Sizer Relationship Specialty Start Date End Date Eren Shah DNP PCP - General Family Medicine 03/20/21 06/10/22 documented as of this encounter
--- OUTSIDE RECORDS SUMMARY | 2023-11-21 16:01 | XMS_ITS | Encounter Summary ---
Author Organization [facility] [place] [address] Care Team Providers Care Supervisor Hide House Name Role Phone Eren Shah DNP Primary Care Provider [phone] Encounter Details Date Type Department Care Team (Late st Contact Info) Description 04/13/2021 Telephone Hematology/Oncology at [address] [phone] [facility] DR HEMATOLOGY [place] [address] Social History Tobacco Use Types Packs/Day Years [...] encounter Miscellaneous Notes * Telephone Encounter - Cande Antonio RD - 04/13/2021 8:35 AM EST Note created in error. Please see note on 04/11. documented in this encounter Plan of Treatment Upcoming Encounters Date Type Department Care Team (Late st Contact Info) Description 12/08/2023 3:30 PM EDT Office Visit Hematology/Oncology at [address] [phone] Chase Mckay MD [facility] DR HEMATOLOGY [place] [address] documented as of this encounter Visit Diagnoses Not on filedocumented in this encounter Care Teams Supervisor Hide House Relationship Specialty Start Date End Date Eren Shah DNP PCP - General Family Medicine 03/20/21 06/10/22 documented as of this encounter
--- OUTSIDE RECORDS SUMMARY | 2023-11-21 16:01 | XMS_ITS | Encounter Summary ---
Author Organization [facility] [place] [address] Care Team Providers Care Senior Merchandiser Name Role Phone Eren Shah CHELSEA Primary Care Provider [phone] Encounter Details Date Type Department Care Team (Late st Contact Info) Description 03/28/2021 Telephone [place] [phone] Consuelo Monson Social History Tobacco Use Types [...] PM EDT Office Visit Hematology/Oncology at [address] [phone] Chase Mckay MD [facility] DR [place]AT[place] [address] documented as of this encounter Visit Diagnoses Not on filedocumented in this encounter Care Teams Senior Merchandiser Relationship Specialty Start Date End Date Eren Shah DNP PCP - General Family Medicine 03/20/21 06/10/22 documented as of this encounter
--- OUTSIDE RECORDS SUMMARY | 2023-11-21 16:01 | XMS_ITS | Encounter Summary ---
Author Organization [facility] [place] [address] Care Team Providers Care Custom Applicator Name Role Phone Eren Shah DNP Primary Care Provider +[phone] Encounter Details Date Type Department Care Team (Late st Contact Info) Description 04/11/2021 Telephone Hematology/Oncology at [address] [phone] [facility] DR HEMATOLOGY [place] [address] Social History Tobacco Use Types Packs/Day Years [...] Miscellaneous Notes * Telephone Encounter - Cande Antonio, RD - 04/11/2021 1:27 PM EST [facility] Initial Assessment Patient Name: Barb Bullard Diagnosis: Metastatic urothelial cancer with LLL mass, s/p bilateral nephrostomy tubes on 02/20/21 Assessment: HPI Patient Active Problem List Diagnosis Code Metastatic urothelial carcinoma C79.10 Abnormal thyroid function test R94.6 Estimated body mass index is 23.67 kg/m?? as calculated from the following: Height as of 04/04/21: 163.8 cm (5' 4.49). Weight as of 04/08/21: 63.5 kg (140 lb). Wt Readings from Last 3 Encounters: 04/08/21 63.5 kg (140 lb) 04/04/21 64.4 kg (141 lb 15.6 oz) 03/27/21 64.4 kg (142 lb) 144# on 03/20 UBW: 170# per patient Patient has lost 30# in the past 2-3 months (17.6% body weight)--severe. 4# loss in past 3 weeks (2.8% body weight)--not clinically significant Medications: Augmentin, fluconazole, ferrous sulfate, miralax TID Plan to start patient on pembrolizumab soon. Labs on 04/08: Creat 1.24H, K 3.3L, Platelet 755H Nutrition Screen 04/11/2021 03/27/2021 Reason for assessment Unintentional weight loss - Total MST Score - 2 Functional Status 04/11/2021 Dysgeusia Present Patient reports that taste changes have improved. She has been eating a bit more lately. Noted to also have dyspnea. Food Insecurity Screening 03/27/2021 Within the past 12 months, the food you bought just didn???t last and you didn???t have money to get more. 98 Usual Intake: Breakfast: toast or waffles with eggs Lunch: tuna sandwich or soup Dinner: Salad with chicken Snacks: cashews Beverages: Water, diet cranberry juice ONS: none Spoke with patient over the phone today. She lives in [place] with her daughter who helps with cooking. She feels she has been eating better since things have started to taste better, and weight loss has slowed. Nutrition Diagnosis 04/11/2021 Problems Involuntary weight loss Related to metastatic urothelial cancer with LLL mass as evidenced by 30# loss in 2-3 months (17.6%body weight). Nutrition Intervention: Encouraged eating small, frequent meals to prevent further weight loss. Encouraged including protein foods each time; reviewed sources. Patient is not interested in ONS at this time; will revisit if weight loss picks up again. Monitoring and Evaluation: Will follow up with Barb in 2 weeksto re-evaluate. I have provided her with my card and contact information should she have any questions in the meantime. Thank you for this consult. Cande Antonio RD documented in this encounter Plan of Treatment Upcoming Encounters Date Type Department Care Team (Late Contact Info) Description 12/08/2023 3:30 PM EDT Office Visit Hematology/Oncology at [address] [phone] Chase Mckay MD [facility] DR HEMATOLOGY [place] [address] documented as of this encounter Visit Diagnoses Not on filedocumented in this encounter Care Teams Custom Applicator Relationship Specialty Start Date End Date Eren Shah DNP PCP - General Family Medicine 03/20/21 06/10/22 documented as of this encounter
--- OUTSIDE RECORDS SUMMARY | 2023-11-21 16:01 | XMS_ITS | Encounter Summary ---
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 Name Role Phone Eren Shah CHEL[place] Primary Care Provider Reason for Referral * Diagnostic Test (Emergency) - Closed Specialty Diagnoses / Procedures Referred By Contac t Referred To Contact Radiology Diagnoses Lung mass Procedures NM PET CT Skull Base to Mid-thigh Alonzo Cevallos MD [facility] [place] [address] [place] [address] Referral ID Status Reason Start Date Expiration Date V isits Requested Visits Authorized [id number] Closed Specialty Service Requested 02/20/2021 08/21/2022 1 1 Reason for Visit * Diagnostic Test (Emergency) - Closed Specialty Diagnoses / Procedures Referred By Contac t Referred To Contact Radiology Diagnoses Lung mass Procedures NM PET CT Skull Base to Mid-thigh Alonzo Cevallos MD [facility] [place] [address] [place] [address] Referral ID Status Reason Start Date Expiration Date V isits Requested Visits Authorized [id number] Closed Specialty Service Requested 02/20/2021 08/21/2022 1 1 Encounter Details Date Type Department Care Team (Latest Contact Info) Description 03/20/2021 10:01 AM EST Hospital Encounter [place] [address] Alonzo Cevallos MD [facility] [place] [address] Lung mass Discharge Disposition: Home Social History [...] 3:30 PM EDT Office Visit Hematology/Oncology at [address] [id number] Chase Mckay MD [facility] DR HEMATOLOGY [place] [address] documented as of this encounter Procedures Procedure Name Priority Date/Time Associated Diagnosis Comments NM PET CT SKULL BASE TO MID-THIGH ([facility]) STAT 03/20/2021 12:59 PM EST Lung mass documented in this encounter Results * NM PET CT Skull Base to Mid-thigh (03/20/2021 12:59 PM EST) Anatomical Region Laterality Modality Positron Emissio n Tomography (PET) Impressions 03/20/2021 3:34 PM EST 1. ??Hypermetabolic circumferential bladder wall irregularity and thickening with extension into the distal left ureter consistent with primary urothelial carcinoma. 2. ??Hypermetabolic regional anthony metastases in the pelvis and the left para-aortic region. 3. ??Bilateral nonenlarged hypermetabolic inguinal lymph nodes are most likely reactive. 4. ??Large hypermetabolic left lower lobe mass, most consistent with distant metastasis. Along with a large subpulmonic pleural effusion there is complete collapse versus replacement of the left lower lobe. Additional distant metastases involving the mediastinum, bilateral danielle, and bilateral cervical chains. The effusion is loculated and contains a hypermetabolic peripheral rim which may be due to inflammation, infection or malignancy. 5. ??Peripheral hypermetabolic groundglass and consolidative opacities in the peripheral right lung most consistent with sites of infection versus inflammation. 6. ??Diffusely increased metabolic activity throughout the axial and proximal appendicular skeleton without focal osseous lesions and diffusely increased activity in the spleen most consistent with reactive marrow. I have personally reviewed the image(s) and the resident's interpretation and agree with the findings, Billy Anderson MD at 03/20/2021 3:34 PM Thank you for letting us participate in the care of this patient. ??If you are a health care provider and have any questions regarding this report, please contact the number below. ??For patients who have questions please contact the health small animal caretaker that requested your imaging first. ? Electronically signed by: Billy Anderson MD, [facility] ([phone]), at 03/20/2021 3:34 PM Narrative 03/20/2021 3:34 PM EST EXAMINATION: NM PET CT STANDARD SKULL BASE TO MID-THIGH CLINICAL HISTORY: 70-year-old female with lung mass with left lower lobe obstruction and bladder mass presents for staging exam TECHNIQUE: Following IV injection of 19-toajek-9-deoxyglucose (FDG) a standard uptake of approximately 60 minutes, a noncontrast CT scan followed by a PET scan were acquired from the base of the skull to mid thighs. The noncontrast CT was used for anatomic localization and photon attenuation correction of the PET scan. Blood glucose level: 90 mg/dL FDG dose: 9.7 mCi COMPARISON: MR brain on 02/21/2021 CT chest abdomen pelvis on 02/18/2021 FINDINGS: HEAD/NECK: Subcentimeter hypermetabolic adenopathy in the bilateral level 2A, 2B and level 5 anthony stations and in the bilateral supraclavicular regions. CHEST: Large hypermetabolic left lower lobe mass measuring 7.1 x 8.3 x 8.5 cm (AP x TV x CC). The mass occludes the left lower lobe bronchus. The left lower lobe mass, along with a large subpulmonic peripherally hypermetabolic loculated pleural effusion, results in complete collapse versus replacement of the left lower lobe. Peripheral hypermetabolic groundglass and consolidative opacities in the right upper, middle and lower lobes. Hypermetabolic mediastinal adenopathy involving the prevascular, pretracheal, right paratracheal, precarinal, and subcarinal regions. Hypermetabolic bilateral hilar adenopathy. ABDOMEN/PELVIS: Increased metabolic activity throughout the irregular bladder wall extending proximally up the circumferentially thickened distal left ureter. Diffusely moderately hypermetabolic non-enlarged spleen. Hypermetabolic subcentimeter lymph nodes are present in the left external iliac space and right obturator space. Several subcentimeter hypermetabolic left para-aortic lymph nodes (axial images [id number]). Nonenlarged hypermetabolic bilateral inguinal lymph nodes are present. Status post bilateral percutaneous nephroureteral catheter placement with pigtails appropriately located in the bilateral renal pelves and the urinary bladder. SKELETON/EXTREMITIES: Diffusely increased metabolic activity throughout the axial and proximal appendicular skeleton. No focal osseous lesions. Procedure Note Billy Anderson MD - 03/20/2021 EXAMINATION: NM PET CT STANDARD SKULL BASE TO MID-THIGH CLINICAL HISTORY: 70-year-old female with lung mass with left lower lobe obstruction and bladder mass presents for staging exam TECHNIQUE: Following IV injection of 43-nufhhf-8-deoxyglucose (FDG) astandard uptake of approximately 60 minutes, a noncontrast CT scan followed by aPET scan were acquired from the base of the skull to mid thighs. The noncontrast CTwas used for anatomic localization and photon attenuation correction of thePET scan. Blood glucose level: 90 mg/dL FDG dose: 9.7 mCi COMPARISON: MR brain on 02/21/2021 CT chest abdomen pelvis on 02/18/2021 FINDINGS: HEAD/NECK: Subcentimeter hypermetabolic adenopathy in the bilateral level 2A, 2B andlevel 5 anthony stations and in the bilateral supraclavicular regions. CHEST: Large hypermetabolic left lower lobe mass measuring 7.1 x 8.3 x 8.5 cm (APx TV x CC). The mass occludes the left lower lobe bronchus. The left lower lobemass, along with a large subpulmonic peripherally hypermetabolic loculatedpleural effusion, results in complete collapse versus replacement of the leftlower lobe. Peripheral hypermetabolic groundglass and consolidative opacities in theright upper, middle and lower lobes. Hypermetabolic mediastinal adenopathy involving the prevascular,pretracheal, right paratracheal, precarinal, and subcarinal regions. Hypermetabolicbilateral hilar adenopathy. ABDOMEN/PELVIS: Increased metabolic activity throughout the irregular bladder wallextending proximally up the circumferentially thickened distal left ureter. Diffusely moderately hypermetabolic non-enlarged spleen. Hypermetabolic subcentimeter lymph nodes are present in the left externaliliac space and right obturator space. Several subcentimeter hypermetabolicleft para-aortic lymph nodes (axial images 155-163). Nonenlarged hypermetabolic bilateral inguinal lymph nodes are present. Status post bilateral percutaneous nephroureteral catheter placementwith pigtails appropriately located in the bilateral renal pelves and theurinary bladder. SKELETON/EXTREMITIES: Diffusely increased metabolic activity throughout the axial and proximal appendicular skeleton. No focal osseous lesions. IMPRESSION 1. Hypermetabolic circumferential bladder wall irregularity andthickening with extension into the distal left ureter consistent with primary urothelial carcinoma. 2. Hypermetabolic regional anthony metastases in the pelvis and the left para-aortic region. 3. Bilateral nonenlarged hypermetabolic inguinal lymph nodes are mostlikely reactive. 4. Large hypermetabolic left lower lobe mass, most consistent withdistant metastasis. Along with a large subpulmonic pleural effusion there iscomplete collapse versus replacement of the left lower lobe. Additional distant metastases involving the mediastinum, bilateral danielle, and bilateralcervical chains. The effusion is loculated and contains a hypermetabolic peripheralrim which may be due to inflammation, infection or malignancy. 5. Peripheral hypermetabolic groundglass and consolidative opacities inthe peripheral right lung most consistent with sites of infection versus inflammation. 6. Diffusely increased metabolic activity throughout the axial andproximal appendicular skeleton without focal osseous lesions and diffuselyincreased activity in the spleen most consistent with reactive marrow. I have personally reviewed the image(s) and the resident's interpretationand agree with the findings, Billy Anderson MD at 03/20/2021 3:34 PM Thank you for letting us participate in the care of this patient. If youare a health care provider and have any questions regarding this report,please contact the number below. For patients who have questions please contactthe health small animal caretaker that requested your imaging first. Electronically signed by: Billy Anderson MD, [facility]([phone]), at 03/20/2021 3:34 PM Alonzo Cevallos MD IMG PET ORDERABLES documented in this encounter Visit Diagnoses Diagnosis Lung mass Swelling, mass, or lump in chest documented in this encounter Administered Medications Inactive Administered Medications - up to 3 most recent administrations Medication Order MAR Action Action Date Dose Rate Site fludeoxyglucose (F-18) FDG injection 0-20 mCi 0-20 mCi, Intravenous, ONCE PRN, 1 dose, Starting on Fri03/20/21 at 1039, Until Fri03/20/21 at 1030, Per Protocol, Radiology Contrast, Routine Given 03/20/2021 10:30 AM EST 9.7 mCi documented in this encounter Care Teams Stranding Machine Operator Helper Relationship Specialty Start Date End Date Eren Shah DNP PCP - General Family Medicine 03/20/21 06/10/22 documented as of this encounter
--- OUTSIDE RECORDS SUMMARY | 2023-11-21 16:01 | XMS_ITS | Encounter Summary ---
[place] [address] Care Team Providers Care Paperboard Machine Operator Name Role Phone Eren Shah CHELSEA Primary Care Provider Reason for Referral * Diagnostic Test (Routine) - Closed Specialty Diagnoses / Procedures Referred By Contac t Referred To Contact Radiology Diagnoses Metastatic urothelial carcinoma Procedures IR Nephroureteral (NU) Stent Placement Check/Change Guillermo Nice MD [facility] [place] [address] [facility] [place] [address] Referral ID Status Reason Start Date Expiration Date V isits Requested Visits Authorized [id number] Closed Specialty Service Requested 04/16/2021 10/15/2022 1 1 Reason for Visit * Diagnostic Test (Routine) - Closed Specialty Diagnoses / Procedures Referred By Contac t Referred To Contact Radiology Diagnoses Hydronephrosis, bilateral Bladder mass Acute kidney injury Procedures IR Other Related Procedures IR Nephroureteral (NU) Stent Placement Check/Change Jean Carlos Fenton DO [facility] [place] [place] [address] [facility] [place] [address] Referral ID Status Reason Start Date Expiration Date V isits Requested Visits Authorized [id number] Closed Specialty Service Requested 02/20/2021 08/21/2022 1 1 Encounter Details Date Type Department Care Team (Latest Contact Info) Description 04/16/2021 12:00 PM EST - 04/16/2021 11:59 PM EST Hospital [place] [address] Jean Carlos Fenton, [facility] [place] [address] Hydronephrosis, bilateral; Bladder mass; Acute kidney injury; Metastatic urothelial carcinoma Discharge Disposition: Home Social [...] Sign Reading Time Taken Comments Blood Pressure 147/72 04/16/2021 3:45 PM EST Pulse 82 04/16/2021 2:13 PM EST Temperature 36.5 ??C (97.7 ??F) 04/16/2021 2:13 PM ES T Respiratory Rate 12 04/16/2021 3:45 PM EST Oxygen Saturation 99% 04/16/2021 3:45 PM EST Inhaled Oxygen Concentration - - Weight - - Height - - Body Mass Index - - documented in this encounter Discharge Instructions * Discharge Instructions* Robe Shah RN - 04/16/2021 3:26 PM EST Images from the original note were not included. [facility] Vascular and Interventional Radiology Discharge Instructions for [...] can you care for yourself at home? ?? Wash your hands before you handle the tubes. ?? Clean the area around the tube with soap and water weekly. You may shower after 1 week without abandage. You may remove the bag and connecting tubing from the drain. Put a credit analysis manager on both the drain and the bag. You can shower with the bag off. Clean around the tube with soap and water. Pat dry. ?? You can clean the bag after removing it from the tube. Use another container to collect your urine while you clean the bag. To clean the bag, fill it with 2 parts vinegar to 3 parts water, and letit stand for 20 minutes. Then empty it out, and let it air dry. ?? Keep the drainage bag lower than your kidney to keep urine from backing up. ?? Empty the drainage bag before it is completely full or every 2 to 3 hours. ?? Do not swim or take baths while [...] tube. When to call your healthcare provider: ??? There may be a little blood in the urine after the tube is placed or changed. Contact your healthcare provider if the bleeding doesn???t stop in a couple of days or if the drainage becomes brightred. ??? If urine or blood leaks around the tube, or poor drainage into the bag ??? If the tube stops draining urine (if attached to a bag system) ??? If skin around the tube is red or irritated or if you see any swelling or drainage around the tube. ??? If you have shaking chills. ??? If you have a fever equal to or greater than 101 degrees Fahrenheit (if these symptoms occur and your tube has been capped you should uncap it and connect to a drainage bag). ??? If you have unusual pain in your flank or at the tube site. ??? A faint urine smell is often present, but if the smell becomes strong call your healthcare provider. ??? Decreased drainage into the bag. Tube Care: ??? You may take a shower after 1 week. Dry the area well. Redress the drain afterwards. You may shower with the old dressing in place and then replace after your shower. It may be easier to take a sponge bath. You may NOT take a tub bath or swim. ??? It is important that you take care of your tube. It can be pulled out if it is caught on something. If you think the tube is partly pulled out or if it comes out completely, we can usually put itback in easily if you come to see us within 12-24 hours. ??? It is important to keep the skin around the tube healthy. You should clean the area with soap and water a minimum of once per week. Replace the gauze dressing after you have cleaned and completely dried the skin. It is ok to change the dressing at anytime if it gets soiled. ??? We will schedule regular tube changes for you to avoid the tube becoming blocked. You will receive these follow-up appointments in the mail (usually every 3 months). When to call the Interventional Radiology Department: Please call with any questions or concerns. If it is during regular office hours, please call [phone]. If it is after regular office hours, or on weekends or holidays, please call [phone] and ask to speak to the Environmental Property Assessor bonding and composite fabricator for Interventional Radiology. You have received medication [...] Sig Dispensed Refills Start Date End Date fluconazole (Diflucan) 200 mg Tablet Take 1 tablet by mouth daily for 14 days. 14 tablet 04/10/2021 04/17/2021 ferrous sulfate EC 325 mg (65 mg iron) Tablet, Delayed Release (E.C.) Take 325 mg by mouth every other day. 02/25/2021 01/22/2022 polyethylene glycoL (Miralax) 17 gram/dose Powder DISSOLVE ONE TEASPOONFUL IN WATER AND DRINK THREE TIMES A DAY 03/13/2021 07/17/2021 documented as of this encounter Progress Notes * Robe Shah RN - 04/16/2021 4:45 PM EST ANGIO NURSING DATABASE Name: BARB BULLARD Date of : 1950 AGE: 70 y.o. Address: [address] [place] [address] (home) [place]: Telephone Information: Referring Provider: Jean Carlos Fenton REASON FOR VISIT: Order Questions Answers Where will study be performed? [facility] Radiology [120] Reason for exam and clinical history: Malignant obstruction of bilateral ureters. Status post bilateral antegrade NU catheter placement. Is the patient on anticoagulant / antiplatelet therapy ? No No Known Allergies Pertinent PMH: Patient Active Problem List Diagnosis Code ??? Metastatic urothelial carcinoma C79.10 ??? Abnormal thyroid function test R94.6 Date/Procedure Meds Given/Comments 02/20/21 b/l PCN Placement?? No abx - covered from meds at OSH?4 mg midazolam,??175??mcg fentanyl ??04/02/21 Right chest port placement ??local lidocaine, 2g Ancef, 3mg midazolam, 150mcg fentanyl 04/16/21 B/L Double J Stent Exchange ??Lido Jelly ? Laboratory Results: Lab Results Component Value Date CREATININE 1.24 (H) 04/08/2021 Lab Results Component Value Date K 3.3 (L) 04/08/2021 Lab Results Component Value Date PLATELET 755 (H) 04/08/2021 documented in this encounter H&P Notes * Yuval Sinclair PA - 04/16/2021 2:09 PM EST INTERVENTIONAL RADIOLOGY FOCUSED H&P: Procedure: Planned procedure: Bilateral nephroureteral catheter exchange The patient's history and physical exam [...] procedure. PRE-SEDATION ASSESSMENT: Sedation Plan: no sedation Current medications reviewed: Yes Allergies reviewed: Yes Source Note - Maria Fernanda Suarez PA - 04/13/2021 10:51 AM EST Images from the original note were not included. Interventional Radiology Focused Pre-procedure H&P: PCP: Eren Shah APRN Referring Provider: Jean Carlos Fenton Planned procedure: Bilateral nephroureteral catheter exchange Procedure indication: Bilateral ureteral obstruction, bladder cancer, need for routine catheter exchange IR workflow: Procedure request received through Interventional Radiology eDH order queue. Order Questions Answers Where will study be performed? [facility] Radiology [120] Reason for exam and clinical history: Malignant obstruction of bilateral ureters. Status post bilateral antegrade NU catheter placement. Is the patient on anticoagulant / antiplatelet therapy ? No History of Present Illness: Per chart review, Barb Bullard is a 70 y.o. female with PMH of bladder CA with bilateral ureteral obstruction s/p bilateral antegrade nephroureteral catheter placement on 02/20/21 who presents to Interventional Radiology to undergo routine catheter exchange. Catheters are10.2 Fr x 22 cm. Remainder of patient's medical and surgical history, allergies, medications, and social/family history obtained below as previously outlined in patient's medical record. IR History: Date/Procedure Meds Given/Comments 02/20/21 b/l PCN Placement?? No abx - covered from meds at OSH?4 mg midazolam,??175??mcg fentanyl ??04/02/21??Right chest port placement?local lidocaine, 2g Ancef,??3mg midazolam,??150mcg fentanyl ? Imagin02/20/21 Assessment: 70 y.o. female with B/L malignant ureteral obstruction presenting to Interventional Radiology for routine B/L NU stent exchange. Plan Planned procedure: Bilateral nephroureteral catheter exchange Labs to be performed day of procedure: No labs Sedation: No Sedation Prophylactic antibiotic : Cipro Contrast: No contrast Additional medications for procedure: Lidocaine Position: Prone Consent: Scanned Medications to discontinue (and days held): None Cytopathology presence needed: No Case Urgency:: G- Other (non E or F elective cases) Labs: Lab Results Component Value Date HGB 9.9 (L) 04/08/2021 HCT 31.5 (L) 04/08/2021 WBC 30.6 (CRIT) 04/08/2021 PLATELET 755 (H) 04/08/2021 BUN 23 (H) 04/08/2021 CREATININE 1.24 (H) 04/08/2021 ALBUMIN 3.2 04/08/2021 BILITOT 0.4 04/08/2021 AST 9 04/08/2021 ALT 7 04/08/2021 ALKPHOS 85 04/08/2021 Allergies: Patient has no known allergies. Medications: Current Outpatient Medications on File Prior to Encounter Medication Sig Dispense Refill ??? fluconazole (Diflucan) 200 mg Tablet Take 1 tablet by mouth daily for 14 days. 14 tablet 0 ??? ferrous sulfate EC 325 mg (65 mg iron) Tablet, Delayed Release (E.C.) Take 325 mg by mouth daily. ??? polyethylene glycoL (Miralax) 17 gram/dose Powder DISSOLVE ONE TEASPOONFUL IN WATER AND DRINK THREE TIMES A DAY No current facility-administered medications on file prior to encounter. Past Medical/Surgical history: Patient Active Problem List Diagnosis Code ??? Metastatic urothelial carcinoma C79.10 ??? Abnormal thyroid function test R94.6 No past medical history on file. Past Surgical History: Procedure Laterality Date ??? IR MEDIPORT PLACEMENT 04/02/2021 IR Mediport Placement 04/02/2021 Yuval Sinclair PA [facility] INTERVENTIONL RAD ??? IR NEPHROSTOMY TUBE PLACEMENT PERCUTANEOUS BILATERAL 02/20/2021 IR Nephrostomy Tube Placement Percutaneous Bilateral [facility] INTERVENTIONL RAD ? ? PRO [facility] EBUS GUIDED SAMPL 3/> NODE STATION/STRUX N/A 04/04/2021 BRONCH, W ENDOBRONCHIAL ULTRASOUND (EBUS) GUIDED SAMPLING, 3+ NODES (WRVU 5.21) performed by Alonzo Cevallos MD at [facility] MAIN OR ??? PRO BRONCHOSCOPY, DIAGNOSTIC W LAVAGE N/A 04/04/2021 BRONCHOSCOPY, RIGID OR FLEXIBLE, WITH BRONCHIAL ALVEOLAR LAVAGE (WRVU 2.88) performed by Alonzo Cevallos MD at [facility] MAIN OR Social History and Habits: Social History Tobacco Use ??? Smoking status: Former Smoker Types: Cigarettes Quit date: 07/04/2014 Years since quittin.7 ??? Smokeless tobacco: Never Used Vaping Use ??? Vaping Use: Never used Substance Use Topics ??? Alcohol use: Not Currently ??? Drug use: Never Significant Family History: No family history on file. Pertinent ROS: as per HPI Physical Exam: Pending (to be performed in IR the day of procedure) ASA: Pending (to be assessed in IR the day of procedure) Mallampati class: Pending (to be assessed in IR the day of procedure) 04/13/2021 Maria Fernanda Suarez PA-C * Maria Fernanda Suarez PA - 04/13/2021 10:51 AM EST Images from the original note were not included. Interventional Radiology Focused Pre-procedure H&P: PCP: Eren Shah APRN Referring Provider: Jean Carlos Fenton Planned procedure: Bilateral nephroureteral catheter exchange Procedure indication: Bilateral ureteral obstruction, bladder cancer, need for routine catheter exchange IR workflow: Procedure request received through Interventional Radiology eDH order queue. Order Questions Answers Where will study be performed? [facility] Radiology [120] Reason for exam and clinical history: Malignant obstruction of bilateral ureters. Status post bilateral antegrade NU catheter placement. Is the patient on anticoagulant / antiplatelet therapy ? No History of Present Illness: Per chart review, Barb Bullard is a 70 y.o. female with PMH of bladder CA with bilateral ureteral obstruction s/p bilateral antegrade nephroureteral catheter placement on 02/20/21 who presents to Interventional Radiology to undergo routine catheter exchange. Catheters are10.2 Fr x 22 cm. Remainder of patient's medical and surgical history, allergies, medications, and social/family history obtained below as previously outlined in patient's medical record. IR History: Date/Procedure Meds Given/Comments 02/20/21 b/l PCN Placement?? No abx - covered from meds at OSH?4 mg midazolam,??175??mcg fentanyl ??04/02/21??Right chest port placement?local lidocaine, 2g Ancef,??3mg midazolam,??150mcg fentanyl ? Imagin02/20/21 Assessment: 70 y.o. female with B/L malignant ureteral obstruction presenting to Interventional Radiology for routine B/L NU stent exchange. Plan Planned procedure: Bilateral nephroureteral catheter exchange Labs to be performed day of procedure: No labs Sedation: No Sedation Prophylactic antibiotic : Cipro Contrast: No contrast Additional medications for procedure: Lidocaine Position: Prone Consent: Scanned Medications to discontinue (and days held): None Cytopathology presence needed: No Case Urgency:: G- Other (non E or F elective cases) Labs: Lab Results Component Value Date HGB 9.9 (L) 04/08/2021 HCT 31.5 (L) 04/08/2021 WBC 30.6 (CRIT) 04/08/2021 PLATELET 755 (H) 04/08/2021 BUN 23 (H) 04/08/2021 CREATININE 1.24 (H) 04/08/2021 ALBUMIN 3.2 04/08/2021 BILITOT 0.4 04/08/2021 AST 9 04/08/2021 ALT 7 04/08/2021 ALKPHOS 85 04/08/2021 Allergies: Patient has no known allergies. Medications: Current Outpatient Medications on File Prior to Encounter Medication Sig Dispense Refill ??? fluconazole (Diflucan) 200 mg Tablet Take 1 tablet by mouth daily for 14 days. 14 tablet 0 ??? ferrous sulfate EC 325 mg (65 mg iron) Tablet, Delayed Release (E.C.) Take 325 mg by mouth daily. ??? polyethylene glycoL (Miralax) 17 gram/dose Powder DISSOLVE ONE TEASPOONFUL IN WATER AND DRINK THREE TIMES A DAY No current facility-administered medications on file prior to encounter. Past Medical/Surgical history: Patient Active Problem List Diagnosis Code ??? Metastatic urothelial carcinoma C79.10 ??? Abnormal thyroid function test R94.6 No past medical history on file. Past Surgical History: Procedure Laterality Date ??? IR MEDIPORT PLACEMENT 04/02/2021 IR Mediport Placement 04/02/2021 Yuval Sinclair PA [facility] INTERVENTIONL RAD ??? IR NEPHROSTOMY TUBE PLACEMENT PERCUTANEOUS BILATERAL 02/20/2021 IR Nephrostomy Tube Placement Percutaneous Bilateral [facility] INTERVENTIONL RAD ? ? PRO [facility] EBUS GUIDED SAMPL 3/> NODE STATION/STRUX N/A 04/04/2021 BRONCH, W ENDOBRONCHIAL ULTRASOUND (EBUS) GUIDED SAMPLING, 3+ NODES (WRVU 5.21) performed by Alonzo Cevallos MD at [facility] MAIN OR ??? PRO BRONCHOSCOPY, DIAGNOSTIC W LAVAGE N/A 04/04/2021 BRONCHOSCOPY, RIGID OR FLEXIBLE, WITH BRONCHIAL ALVEOLAR LAVAGE (WRVU 2.88) performed by Alonzo Cevallos MD at [facility] MAIN OR Social History and Habits: Social History Tobacco Use ??? Smoking status: Former Smoker Types: Cigarettes Quit date: 07/04/2014 Years since quittin.7 ??? Smokeless tobacco: Never Used Vaping Use ??? Vaping Use: Never used Substance Use Topics ??? Alcohol use: Not Currently ??? Drug use: Never Significant Family History: No family history on file. Pertinent ROS: as per HPI Physical Exam: Pending (to be performed in IR the day of procedure) ASA: Pending (to be assessed in IR the day of procedure) Mallampati class: Pending (to be assessed in IR the day of procedure) 04/13/2021 Maria Fernanda Suarez PA-C documented in this encounter Procedure Notes * Guillermo Nice MD - 04/16/2021 4:10 PM EST IR PROCEDURE NOTE Procedure: Bilateral NU exchange. Indication for Procedure: Per CLAIRE Catalan, Barb Bullard is a 70 y.o. female with PMH of bladder CA with bilateral ureteral obstruction s/p bilateral antegrade nephroureteral catheter placement on 02/20/21 who presents to Interventional Radiology to undergo routine catheter exchange. Catheters are 10.2 Fr x 22 cm. Procedure events and findings: Patient was positioned prone on procedure table and sterile prep anddrape performed, maximum sterile barrier technique was used throughout. Contrast injection via the existing right NU catheter showed upper pigtail in right renal collecting system. The lower pigtail was in the expected location of the bladder. The catheter was cut and a guide wire was advanced into the bladder under fluoroscopy. Existing catheter removed over wire and a new 10Fr 22cm locking pigtail NU catheter was placed, upper pigtail positioned in renal pelvis and the lower in the bladder. Position was confirmed with contrast injection. Catheter was not anchored with suture but was connected to bag drainage. Same procedure was repeated on the left, again with placement of a 10 Fr 22 cm locking pigtail NU catheter. As on the right, the catheter was not anchored with suture but was connected to bag drainage. Medications: 2% lidocaine gel topical. Est Blood Loss: <5cc. Complications: No immediate Impression: 1. Bilateral exchange of 10 Fr 22 cm NU catheters. 2. Will plan for routine exchange in approximately 2.5 months. 3. Will also contact Urology re NU vs neph tubes. Resident/Fellow: None Attending: Dr. Tex Landa performed this procedure. documented in this encounter Plan of Treatment Upcoming Encounters Date Type Department Care Team (Late st Contact Info) Description 12/08/2023 3:30 PM EDT Office Visit Hematology/Oncology at [address] [phone] Chase Mckay MD [facility] [place] [address] documented as of this encounter Procedures Procedure Name Priority Date/Time Associated Diagnosis Comments IR OTHER RELATED PROCEDURES Routine 04/16/2021 4:06 PM EST Hydronephrosis, bilateral Bladder mass Acute kidney injury documented in this encounter Results * IR [...] coiled in bladder. ?? Guillermo Nice MD IM IR ORDERABLES * IR Other Related Procedures (04/16/2021 4:06 PM EST) Anatomical Region Laterality Modality X-Ray Angiograph y Narrative 04/16/2021 5:19 PM EST IR PROCEDURE NOTE ?? Procedure: Bilateral NU exchange. ?? Indication for Procedure: Per CLAIRE Catalan, Barb Bullard??is a 70 y.o.??female??with PMH of bladder CA with bilateral ureteral obstruction s/p bilateral antegrade nephroureteral catheter placement on 02/20/21??who presents to Interventional Radiology to undergo??routine catheter exchange.??Catheters are 10.2 Fr x 22 cm.? Procedure events and findings: Patient was positioned prone on procedure table and sterile prep and drape performed, maximum sterile barrier technique was used throughout. Contrast injection via the existing right NU catheter showed upper pigtail in right renal collecting system. ??The lower pigtail was in the expected location of the bladder. ?? The catheter was cut and a guide wire was advanced into the bladder under fluoroscopy. ??Existing catheter removed over wire and a new 10Fr 22cm locking pigtail NU catheter was placed, upper pigtail positioned in renal pelvis and the lower in the bladder. ??Position was confirmed with contrast injection. ??Catheter was not anchored with suture but was connected to bag drainage. ?? Same procedure was repeated on the left, again with placement of a 10 Fr 22 cm locking pigtail NU catheter. ??As on the right, the catheter was not anchored with suture but was connected to bag drainage. ?? Medications: 2% lidocaine gel topical. ?? Est Blood Loss: <5cc. ?? Complications: ??No immediate ?? Impression: ?? 1. ??Bilateral exchange of 10 Fr 22 cm NU catheters. ?? 2. ??Will plan for routine exchange in approximately 2.5 months. ?? 3. ??Will also contact Urology re NU vs neph tubes. ?? Resident/Fellow: None ?? Attending: Dr. Tex Landa performed this procedure. Jean Carlos Fenton DO IMG IR ORDERABLES documented in this encounter Visit Diagnoses Diagnosis Hydronephrosis, bilateral Hydronephrosis Bladder mass Other specified disorders of bladder Acute kidney injury Acute kidney failure, unspecified Metastatic urothelial carcinoma Secondary malignant neoplasm of other urinary organs Metastatic urothelial carcinoma Secondary malignant neoplasm of other urinary organs documented in this encounter Administered Medications Inactive Administered Medications - up to 3 most recent administrations Medication Order MAR Action Action Date Dose Rate Site iohexoL (Omnipaque) (350 mg/mL) solution 1-400 mL 1-400 mL, Other, ONCE, 1 dose, On 04/16/21 at 1430, For intra-procedural use by proceduralist., Angio/IR (Intra-Procedure), Routine Given 04/16/2021 4:07 PM EST 20 mLs documented in this encounter Care Teams Paperboard Machine Operator Relationship Specialty Start Date End Date Eren Shah DNP PCP - General Family Medicine 03/20/21 06/10/22 documented as of this encounter
--- OUTSIDE RECORDS SUMMARY | 2023-11-21 16:01 | XMS_ITS | Encounter Summary ---
Author Organization [facility] Address [facility] [place] [address] Care Team Providers Care Behavioral Interventionist Name Role Phone Eren Shah CHELSEA Primary Care Provider [phone] Reason for Visit * Consultation (Routine) - Closed Specialty Diagnoses / Procedures Referred By Contjoslyn t Referred To Contact Pulmonology Diagnoses Lung mass Joelle García MD [address] [place] [address] [facility] [address] [place] [phone] Referral ID Status Reason Start Date Expiration Date Visits Re quested Visits Authorized [id number] Closed 02/20/2021 02/20/2022 1 1 Encounter Details Date Type Department Care Team (Late st Contact Info) Description 03/20/2021 1:40 PM EST Office [place] [address] Jean Carlos Sotelo MD [facility] [place] [address] High grade urothelial carcinoma present on urine cytology; Mass of lower lobe of left lung; Airway obstruction; SOB (shortness of breath) Social History Tobacco Use Types Packs/Day Years Used Date Smoking Tobacco: Former Cigarettes Q uit: 07/04/2014 Smokeless Tobacco: Never Sex and Gender Information Value Date Recorded Sex Assigned at Not on file Gender Identity Not on file Sexual Orientation Not on file documented as of this encounter Last Filed Vital Signs Vital Sign Reading Time Taken Comments Blood Pressure 112/67 03/20/2021 1:14 PM EST Pulse 91 03/20/2021 1:14 PM EST Temperature 36.6 ??C (97.9 ??F) 03/20/2021 1:14 PM ES T Respiratory Rate 16 03/20/2021 1:14 PM EST Oxygen Saturation 99% 03/20/2021 1:14 PM EST Inhaled Oxygen Concentration - - Weight 65.3 kg (144 lb) 03/20/2021 1:14 PM EST s elf-reported Height 162.6 cm (5' 4) 03/20/2021 1:14 PM EST Body Mass Index 24.72 03/20/2021 1:14 PM EST documented in this encounter Progress Notes * Jean Carlos Sotelo MD - 03/20/2021 1:40 PM EST Images from the original note were not included. INTERVENTIONAL PULMONOLOGY OUTPATIENT CONSULT NOTE SECTION OF PULMONARY & CRITICAL CARE MEDICINE I have been asked to see Barb Bullard in consultation at the request of Dr. García for an abnormal chest CT. History of present illness: Barb Bullard is a 70 y.o. female who was recently hospitalized for weakness, fatigue, weight loss and decreased urine output. She was found to have acute kidney injury, a UTI and CT imaging showed an obstructive uropathy with significant hydroureter, hydronephrosis and a large bladder mass that was d iagnosed as a high-grade urothelial cell carcinoma. Her chest CT also showed obstruction of the LLLbronchus. From a pulmonary standpoint, Ms. Bullard is currently feeling well and denies any chest pain but does have some mild exertional dyspnea. She denies any shortness of breath at rest. She has nofever, but has had intermittent chills and night sweats. She has lost ~35lbs over the last 5 monthsbut her weight has been coming back over the last few weeks. She denies any hemoptysis. She has bilateral nephrostomy tubes since her diagnosis of bladder cancer. She also has some bilateral flank pain that increases when she sits down and improves with advil. She has also been mildly constipated si nce starting iron. Review of systems: ROS otherwise as per HPI and other 12 point ROS is negative. PMH Bladder cancer - invasive urothelial high-grade neoplasm + COVID-19 vaccine (J&J and booster) Current Outpatient Medications: ??? ferrous sulfate EC 325 mg (65 mg iron) Tablet, Delayed Release (E.C.), Twice a day, Disp: , Rfl: ??? polyethylene glycoL (Miralax) 17 gram/dose Powder, DISSOLVE ONE TEASPOONFUL IN WATER AND DRINK THREE TIMES A DAY, Disp: , Rfl: No current facility-administered medications for this visit. 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 HEENT: EOMI, PERRLA, benign oropharynx without exudate or erythema. Neck: No cervical, submandibular, or supraclavicular LAD. CV: Regular rate and rhythm, normal S1/S2, no m/g/r. Pulm: Clear breath sounds R, diminished L base. No crackles or wheezes. Nonlabored breathing. Normal, symmetric chest wall expansion. Abd: Soft, nontender to palpation, non-distended with normoactive bowel sounds throughout. Bilat nephrostomy tubes Ext: No clubbing or edema. Neuro: Strength and sensation intact. Accessory clinical data: I reviewed the following imaging studies with Barbneda Bullard: 02/18/[address]: There is a 6x8cm mass in the LLL with a moderate L pleural effusion. There appeared to be an endobronchial component of the mass with post- obstructive atelectasis. There was mediastinal and left hilar adenopathy. There was no evidence of a pericardial effusion. 03/20/[address]: official read pending, on my read there is FDG avidity in the LLL mass as well as pre-tracheal, right paratracheal, right hilar, and subcarinal nodes. There are new opacities in the RUL and RLL that are FDG avid, as is the LLL mass which extends into the LLL bronchus. Labs: 02/23/21 WBC 18.3, Hb 7, Plt 618, Na 142, K 3.2, Cl 110, HCO3 21, BUN 42, Cr 3.0 Assessment & Plan: My assessment at this time is that Ms. Barb Bullard is a 70 y.o. female who was recently diagnosed with a high-grade urothelial carcinoma and was found to have a LLL mass that is obstructing the LLL bronchus. The PET CT is concerning for metastatic disease and we discussed that this could represent metastatic bladder cancer vs a distinct lung primary. We discussed options for obtaining a tissue diagnosis and I recommended rigid bronchoscopy with attempts to open the LLL broncus as well as stage the mediastinum with EBUS. My hope is that by opening her airways we can improve her dyspnea as wellas prevent post-obstructive pneumonia. We discussed that treatment will be dependent on the pathology, however it will likely revolve around chemotherapy +/- immunotherapy. Radiation may also be required depending on how successful we are in opening her airways. The risks and benefits of the procedure were discussed in detail and both her and her daughter's questions were answered and they agree to proceed. I have also given her the high-dose influenza vaccine today. I independently reviewed prior lab tests, radiology tests and images on file, requested prior records, and reviewed old records and summarized them in the record above. Jean Carlos Sotelo MD Chief, Section of Pulmonary and Critical Care Medicine [address] Room [address] [place] [address] Phone Pul Generic: [phone] [email or web address] Pager #[phone] documented in this encounter Plan of Treatment Upcoming Encounters Date Type Department Care Team (Late st Contact Info) Description 12/08/2023 3:30 PM EDT Office Visit Hematology/Oncology at [address] [phone] Chase Mckay MD [facility] [address] HEMATOLOGY [place] [address] documented as of this encounter Visit Diagnoses Diagnosis High grade urothelial carcinoma present on urine cytology Mass of lower lobe of left lung Airway obstruction Other diseases of respiratory system, not elsewhere classified SOB (shortness of breath) Shortness of breath documented in this encounter Care Teams Behavioral Interventionist Relationship Specialty Start Date End Date Eren Shah DNP PCP - General Family Medicine 03/20/21 06/10/22 documented as of this encounter
--- OUTSIDE RECORDS SUMMARY | 2023-11-21 16:01 | XMS_ITS | Encounter Summary ---
Author Organization [facility] [place] [address] Care Team Providers Care Salesperson Pianos And Organs Name Role Phone Eren Shah CHELSEA Primary Care Provider [phone] Encounter Details Date Type Department Care Team (Late st Contact Info) Description 04/10/2021 Telephone [place] [id number] Kang Fleming PA [facility] DR OBSTET[place] [address] Social History Tobacco Use Types Packs/Day Years [...] encounter Miscellaneous Notes * Telephone Encounter - Kang Fleming PA - 04/10/2021 1:55 PM EST Spoke with urology and patient. Date of confirmed. Per urology's recommendations, we will treat with Diflucan for 2 weeks. Patient notified. documented in this encounter Plan of Treatment Upcoming Encounters Date Type Department Care Team (Late st Contact Info) Description 12/08/2023 3:30 PM EDT Office Visit Hematology/Oncology at [address] [phone] Cahse Mckay MD [facility] DR [place] [address] documented as of this encounter Visit Diagnoses Not on filedocumented in this encounter Care Teams Salesperson Pianos And Organs Relationship Specialty Start Date End Date Eren Shah DNP PCP - General Family Medicine 03/20/21 06/10/22 documented as of this encounter
--- OUTSIDE RECORDS SUMMARY | 2023-11-21 16:01 | XMS_ITS | Encounter Summary ---
Author Organization [facility] Address [facility] [place] [address] Care Team Providers Care Squirt Machine Operator Name Role Phone Erne Shah DNP Primary Care Provider Encounter Details Date Type Department Care Team (Late st Contact Info) Description 04/17/2021 9:30 AM EST Office Visit Hematology/Oncology at [address] [phone] Jose Rhoades MD [facility] [place] [address] Abena Ogden, RN Metastatic urothelial carcinoma; Primary [...] Sign Reading Time Taken Comments Blood Pressure 113/72 04/17/2021 9:29 AM EST Pulse 108 04/17/2021 9:29 AM EST Temperature 35.8 ??C (96.4 ??F) 04/17/2021 9:29 AM ES T Respiratory Rate 16 04/17/2021 9:29 AM EST Oxygen Saturation 98% 04/17/2021 9:29 AM EST Inhaled Oxygen Concentration - - Weight 64.4 kg (142 lb) 04/17/2021 9:29 AM EST Height 163.8 cm (5' 4.49) 04/17/2021 9:29 AM ES T Body Mass Index 24.01 04/17/2021 9:29 AM EST documented in this encounter Progress Notes * Jose Rhoades MD - 04/17/2021 9:30 AM EST Images from the original [...] distinct lung primary. She was seen by chemical detection expert , who recommended rigid bronchoscopy with attempts to open the LLL broncus as well as stage the mediastinum with EBUS. The procedure has been scheduled yet. Interval history: Ms. Bullard is in clinic for follow-up appointment on bladder cancer and discussionof treatment option. She underwent 04/04 bronchoscopy and tumor debulking on April 042020- endobronchial biopsies positive for adenocarcinoma of lung origin. Today she feels fine. Denies any pain. Her breathing is improving. PMH: 04/16/2021 nephrostomy catheter exchange 04/04/21 bronchoscopy and tumor debulking- endobronchial biopsies positive for adenocarcinoma of lung origin Social History: [id number] smoking history quit 6 years ago, does not drink alcohol, used to liveindependently, but currently moved to her daughter house. Family History: Brother had liver cancer, mother had leukemia, maternal aunt had colon cancer in cousin had bladder cancer Allergies: No Known Allergies Medications: Your Medications Accurate as of April 17, 2021 9:36 AM. If you have any questions, ask your nurse or doctor. Continued medications with new dosing Dose Details fluconazole 200 mg Tab Commonly known as: Diflucan Take 200 mg by mouth daily. What changed: Another medication with the same name was removed. Continue taking this medication, and follow the directions you see here. Changed by: JOSE RHOADES MD 200 mg Refills: 0 Continued medications, unchanged Dose Details docusate sodium [...] swallowing. Eyes: Negative. Respiratory: positive shortness of breath and wheezing. Cardiovascular: Negative for chest pain, palpitations and leg swelling. Gastrointestinal: Negative for nausea, vomiting, abdominal pain, diarrhea, constipation and abdominal distention. Genitourinary:positive for dysuria and difficulty urinating. Musculoskeletal: Negative. [...] axillary nodes normal Neurologic: Normal Vitals BP 113/72 (Patient Position: Sitting) Pulse (!) 108 Temp 35.8 ??C (96.4 ??F) (Temporal) Resp 16 Ht 163.8 cm (5' 4.49) Wt 64.4 kg (142 lb) SpO2 98% BMI 24.01 kg/m?? Pathology: 04/04/21 ADDENDUM DISCUSSION PD-L1 Immunohistochemistry [...] The assay was performed according to the insights manager's ??instructions using Anti-PD-L1 (22C3, pharmDX) antibody. Electronically signed by: ?Herbert Ford MD Verified: ??04/11/2021 8:14 ?? Pathologist Performed at: ??-[facility], [place], [place] ? Surgical Pathology DIAGNOSIS A - Lung, ??left lower lobe mass, debulking: ?? - Adenocarcinoma, consistent with lung primary. Electronically signed by: ?Sana Dowell MD Verified: ??04/06/2021 11:16 ??Pathologist Performed at: ??-[facility] Dept. of [facility]ology, [place], [place] DISCUSSION Sections show an invasive, predominantly [...] metastatic urothelial carcinoma and primary lung adenocarcinoma. All options were discussed with the patient. She is interested to proceed with pembrolizumab. We will start treatment tomorrow #Elevated white cell count/anemia:? Underlying primary bone marrow disorder. We will hold off on further testing as treatment of lung cancer urothelial cancer should have priority Plan: 1. Pembrolizumab and chemo teaching tomorrow 2. Next visit in 3 weeks with blood work and second cycle of pembrolizumab. The plan was discussed with patient's in details. All questions were answered to patient satisfaction. I would like to thank Dr. Arzate for allowing me to participate in the care of this wonderful lady documented in this encounter Plan of Treatment Upcoming Encounters Date Type Department Care Team (Late st Contact Info) Description 12/08/2023 3:30 PM EDT Office Visit Hematology/Oncology at [address] [phone] Chase Mckay MD [facility] DR HEMATOLOGY AND ONCOLOGY [place] [id number] documented as of this encounter Visit Diagnoses Diagnosis Metastatic urothelial carcinoma Secondary malignant neoplasm of other urinary organs Primary lung adenocarcinoma, left documented in this encounter Care Teams Squirt Machine Operator Relationship Specialty Start Date End Date Eren Shah DNP PCP - General Family Medicine 03/20/21 06/10/22 documented as of this encounter
--- OUTSIDE RECORDS SUMMARY | 2023-11-21 16:01 | XMS_ITS | Encounter Summary ---
Author Organization [facility] Jose [place] [address] Care Team Providers Care Front Office Attendant Name Role Phone Eren Shah CHELSEA Primary Care Provider [phone] Encounter Details Date Type Department Care Team (Late st Contact Info) Description 04/06/2021 Telephone [place] [phone] Alonzo Cevallos MD [facility] [address] [place] [address] Social History Tobacco Use Types Packs/Day Years [...] encounter Miscellaneous Notes * Telephone Encounter - Alonzo Cevallos MD - 04/06/2021 11:23 AM EST Images from the original note were not included. Interventional Pulmonology Telephone Encounter: I called Ms. Barb Bullard at home on 04/06/2021, 11:23 AM. Discussed results from 04/04/21 bronchoscopy and tumor debulking- endobronchial biopsies positive for adenocarcinoma of lung origin. EBUS-TBNAmediastinal staging biopsies still pending. Barb tells me her breathing is substantially improved following debulking of her left lower lobe and tells me, things are much better. She understands we will call her sometime next Friday following CTOP discussion. She is followed by Dr. Lange with plans to start immunotherapy next week. I will message him about these results as well. Ms. Jimenez was provided ample time to ask questions which were answered to her liking. 04/04/21 LLL endobronchial tumor: Alonzo Cevallos MD, 04/06/2021, 11:23 AM Interventional Pulmonology Section of Pulmonary & Critical Care Pager: [phone] documented in this encounter Plan of Treatment Upcoming Encounters Date Type Department Care Team (Late st Contact Info) Description 12/08/2023 3:30 PM EDT Office Visit Hematology/Oncology at [address] [phone] Chase Mckay MD [facility] [place] [address] documented as of this encounter Visit Diagnoses Not on filedocumented in this encounter Care Teams Front Office Attendant Relationship Specialty Start Date End Date Eren Shah DNP PCP - General Family Medicine 03/20/21 06/10/22 documented as of this encounter
--- OUTSIDE RECORDS SUMMARY | 2023-11-21 16:01 | XMS_ITS | Encounter Summary ---
Author Organization [facility] [place] [address] Care Team Providers Care Mounter Flutes And Piccolos Name Role Phone Eren Shah CHELSEA Primary Care Provider [phone] Reason for Visit * Reason Comments Chemotherapy Cycle 1, Day 1; Pemb ro * Treatment/Therapy Plan Authorization (Routine) - Closed Specialty Diagnoses / Procedures Referred By Contac t Referred To Contact Hematology and Oncology Diagnoses Metastatic urothelial carcinoma Abnormal thyroid function test Procedures [id number] Jose Barnhart MD [address] [place] [address] DR [place] [address] Jose Lange MD [address] [place] [address] DR [place]EM[place]Y [place] [address] Referral ID Status Reason Start Date Expiration Date Visits Re quested Visits Authorized [id number] Closed 04/28/2022 06/24/2023 99 99 Encounter Details Date Type Department Care Team (Late st Contact Info) Description 04/18/2021 9:30 AM EST Infusion Hematology Oncology at [address] [phone] Metastatic urothelial carcinoma; Abnormal thyroid [...] Progress Notes * Rasheed Roper, RN - 04/18/2021 9:30 AM EST INFUSION THERAPY ADMINISTRATION NOTES DIAGNOSIS: urothelial CYCLE #:1, Day 1 REASON FOR VISIT: Pembro SUBJECTIVE Barb offers no complaints. OBJECTIVE LAB DATA: from 04/16 at IV ACCESS: mediport accessed without issue, brisk blood return. Pre administration: Chemotherapy orders [...] completed. PLAN Return to clinic per routine. Pt. chemo teaching instructions included: During clinic hours (8am-5pm Friday-Friday): pt. can call [phone] with questions or concerns. After clinic hours (5pm-8am Friday-Friday and weekends) pt can call [phone] and ask for the glove turner/oncologist salesperson books. Barb Bullard verbalized understanding of potential chemotherapy side effects and home care includingbut not limited to- handwashing to prevent infection, signs and symptoms of low blood counts (fever, fatigue, bleeding), to call with a fever of 100.4 or greater, any significant constipation/diarrhea, importance of nutrition and fluid intake (drinking at least 32-64 ounces of non-caffeinated beverages/day), mouth care. Barb Bullard verbalized understanding of how to take prescription medications given for home use after chemotherapy. documented in this encounter Plan of Treatment Upcoming Encounters Date Type Department Care Team (Late st Contact Info) Description 12/08/2023 3:30 PM EDT Office Visit Hematology/Oncology at [address] [phone] [facility] DR [place] [address] documented as of this encounter Visit Diagnoses [...] 500 Units, Intravenous, ONCE PRN, Starting on Fri04/18/21 at 0912, Until Fri04/18/21 at 1620, Line Care, Refer to Intravenous (IV) Procedure: Accessing Implanted Vascular Access Devices (244) procedure and/or Intravenous (IV) Job Aid: Adult Flushing & Catheter Care (8213) job aid for additional information regarding guidelines and administration., Routine Given 04/18/2021 10:26 AM EST 500 Units pembrolizumab (Keytruda) 200 mg in sodium chloride 0.9% 108 mL infusion 200 mg, Intravenous, ONCE, 1 dose, On Fri04/18/21 at 1030, Administer over 30 Minutes, Flush line with NS after each dose., This agent is restricted to outpatient use. Is this drug being given as an outpatient? Yes New Bag 04/18/2021 9:54 AM EST 200 mg 216 mL/hr sodium chloride 0.9 % (flush) (BD PosiFlush Normal Saline 0.9) flush 5-20 mL 5-20 mL, Intravenous, EVERY 1 MIN PRN, Starting on Fri04/18/21 at 0912, Until Fri04/18/21 at 1620, Line Care, Flush pertains to all indwelling lines. Flush per protocol found in the job aid using the link provided on this medication record. Refer to Intravenous (IV) Job Aid: Adult Flushing & Catheter Care (0679) job aid for additional information regarding guidelines and administration., Routine Given 04/18/2021 10:26 AM EST 20 mLs sodium chloride 0.9% infusion 100 mL/hr, Intravenous, CONTINUOUS, Starting on Fri04/18/21 at 0930, Until Fri04/18/21 at 1620 New Bag 04/18/2021 9:35 AM EST 100 mL/hr 100 mL/hr documented in this encounter Care Teams Mounter Flutes And Piccolos Relationship Specialty Start Date End Date Eren Shah DNP PCP - General Family Medicine 03/20/21 06/10/22 documented as of this encounter
--- OUTSIDE RECORDS SUMMARY | 2023-11-21 16:01 | XMS_ITS | Encounter Summary ---
Author Organization [facility] [place] [address] Care Team Providers Care Hand Engraver Name Role Phone Eren Shha CHELSEA Primary Care Provider [phone] Encounter Details Date Type Department Care Team (Late st Contact Info) Description 03/27/2021 Telephone [place] [phone] Oralia Null Social History Tobacco Use Types [...] PM EDT Office Visit Hematology/Oncology at [address] [phone] Chase Mckay MD [facility] DR [place] [address] documented as of this encounter Visit Diagnoses Not on filedocumented in this encounter Care Teams Hand Engraver Relationship Specialty Start Date End Date Eren Shah DNP PCP - General Family Medicine 03/20/21 06/10/22 documented as of this encounter
--- OUTSIDE RECORDS SUMMARY | 2023-11-21 16:01 | XMS_ITS | Encounter Summary ---
Author Organization [facility] [place] [address] Care Team Providers Care Director Government Name Role Phone None Primary Care Provider Unavailabl e Encounter Details Date Type Department Care Team (Late st Contact Info) Description 03/05/2021 Tele[place] [phone] Consuelo Monson Social History Tobacco Use Types [...] PM EDT Office Visit Hematology/Oncology at [address] [phone] Chase Mckay MD [facility] [address] HEMATOLOGY [place] [address] documented as of this encounter Visit Diagnoses Not on filedocumented in this encounter Care Teams Director Government Relationship Specialty Start Date End Date None None PCP - General 02/20/21 03/19/21 documented as of this encounter
--- OUTSIDE RECORDS SUMMARY | 2023-11-21 16:01 | XMS_ITS | Encounter Summary ---
Author Organization [facility] [place] [address] Care Team Providers Care Recreation Supervisor Name Role Phone None Primary Care Provider Unavailabl e Encounter Details Date Type Department Care Team (Late st Contact Info) Description 02/26/2021 Telephone [place] [address] Oralia Null Social History Tobacco Use Types [...] PM EDT Office Visit Hematology/Oncology at [address] [phone] Chase Mckay MD [facility] [address] [place] [address] documented as of this encounter Visit Diagnoses Not on filedocumented in this encounter Care Teams Recreation Supervisor Relationship Specialty Start Date End Date None None PCP - General 02/20/21 03/19/21 documented as of this encounter
--- OUTSIDE RECORDS SUMMARY | 2023-11-21 16:01 | XMS_ITS | Encounter Summary ---
Author Organization [facility] Address [facility] [place] [address] Care Team Providers Care Second Worker Name Role Phone Eren Shah CHELSEA Primary Care Provider [phone] Reason for Referral * Consultation (Routine) - Closed Specialty Diagnoses / Procedures Referred By Contjoslyn t Referred To Contact Urology Diagnoses Metastatic urothelial carcinoma 05/08/21 - [facility] TO [place] - METASTATIC UROTHELIAL CA Abena Ogden, RN [address] [place] [address] [place] [address] Nasim Beckwith MD [place] [address] Referral ID Status Reason Start Date Expiration Date V isits Requested Visits Authorized [id number] Closed Consult, Test & Treat 04/18/2021 04/18/2022 1 1 Encounter Details Date Type Department Care Team (Latest Contact Info) Description 04/18/2021 8:30 AM EST Clinical Support Hematology/Oncology at [address] [phone] Abena Ogden RN Metastatic urothelial carcinoma Social History Tobacco [...] Sign Reading Time Taken Comments Blood Pressure 145/61 04/18/2021 8:32 AM EST Pulse 99 04/18/2021 8:32 AM EST Temperature 36.8 ??C (98.2 ??F) 04/18/2021 8:32 AM ES T Respiratory Rate 28 04/18/2021 8:32 AM EST Oxygen Saturation 96% 04/18/2021 8:32 AM EST Inhaled Oxygen Concentration - - Weight 65 kg (143 lb 3.2 oz) 04/18/2021 8:32 AM EST Height 163.8 cm (5' 4.49) 04/18/2021 8:32 AM ES T Body Mass Index 24.21 04/18/2021 8:32 AM EST documented in this encounter Progress Notes * Abena Ogden, ALESSANDRO - 04/18/2021 8:30 AM EST Images from the original note were not included. Hematology & Medical Oncology [address] [address] Barb returns today for immunotherapy education and to begin treatment. HPI: Barb Bullard is 70 y.o.F referred [...] distinct lung primary. She was seen by bench assembler electrical , who recommended rigid bronchoscopy with attempts to open the LLL broncus as well as stage the mediastinum with EBUS. The procedure has been scheduled yet. Interval history(04/18/21): Ms. Bullard returns today accompanied by her daughter Daisha for an education visit and to begin treatment. Overall feeling well today. No fevers, chills or signs of infection. She has bilateral nephrostomy tubes which are draining clear yellow urine with some mucus. Shedenies pain except for occasional gas pains in my stomach. Denies any changes in her breathing. She has some shortness of breath with activities. Occasional dry cough. No nausea, vomiting or diarrhea. She states she is constipated but had a good bowel movement yesterday. No edema. PMH: 04/16/2021 nephrostomy catheter exchange 04/04/21 bronchoscopy and tumor debulking- endobronchial biopsies positive for adenocarcinoma of lung origin Social History: [id number] smoking history quit 6 years ago, does not drink alcohol, used to liveindependently, but currently moved to her daughter house. Family History: Brother had liver cancer, mother had leukemia, maternal aunt had colon cancer in cousin had bladder cancer Allergies: No Known Allergies Medications: Your Medications Accurate as of April 18, 2021 9:42 AM. If you have any questions, ask your nurse or doctor. New Medications Dose Details prochlorperazine 10 mg Tab Commonly known as: Compazine Take 1 tablet by mouth every 6 hours as needed for Nausea. Started by: Abena Ogden APRN 10 mg Quantity: 15 tablet Refills: 0 Continued medications, unchanged Dose [...] of Systems: Constitutional: Negative for fever, chills. HEENT: Negative for sore throat, mouth sores and trouble swallowing. Eyes: Negative. Respiratory: positive shortness of breath. Cardiovascular: Negative for chest pain, palpitations and leg swelling. Gastrointestinal: Negative for nausea, vomiting, abdominal pain, diarrhea, constipation and abdominal distention. Genitourinary:positive for dysuria and difficulty urinating. Has bilateral nephrostomy tubes. Musculoskeletal: Negative. Skin: Negative. Neurological: Negative. Hematological: Negative for adenopathy. PE: General: AAAx3, in NAD Head: Normocephalic, without obvious abnormality, atraumatic Eyes: PERRL, conjunctiva/corneas clear both eyes Ears: Nose: Throat: Neck: Supple, symmetrical, trachea midline, no adenopathy, thyroid: not enlarged, symmetric, no tenderness/mass/nodules, Back: Symmetric, no curvature, ROM normal, no CVA tenderness Lungs: Clear to auscultation bilaterally, respirations unlabored Chest Wall: No tenderness or deformity Heart: Regular rate and rhythm, S1, S2 normal, no murmur, rub or gallop Abdomen: Soft, non-tender, bowel sounds active all four quadrants, no masses, no organomegaly. Bilateral nephrostomy tubes in place draining clear yellow urine with mucus. Extremities: Extremities normal, atraumatic, no cyanosis or edema Pulses: Skin: Skin color, texture, turgor normal. Dry rash on lower mid back. Lymph nodes: Cervical, supraclavicular, and axillary nodes normal Neurologic: Normal Vitals BP 145/61 (Patient Position: Sitting) Pulse 99 Temp 36.8 ??C (98.2 ??F) (Temporal) Resp 28 Ht 163.8 cm (5' 4.49) Wt 65 kg (143 lb 3.2 oz) SpO2 96% BMI 24.21 kg/m?? Wt Readings from Last 3 Encounters: 04/18/21 65 kg (143 lb 3.2 oz) 04/17/21 64.4 kg (142 lb) 04/08/21 63.5 kg (140 lb) Pathology: 04/04/21 ADDENDUM DISCUSSION PD-L1 Immunohistochemistry Study [...] assay was performed according to the fisher dip net's ??instructions using Anti-PD-L1 (22C3, pharmDX) antibody. Electronically signed by: ?Herbert Ford MD Verified: ??04/11/2021 8:14 ?? Pathologist Performed at: ??-[facility] Dept. of Pathology, [place], [place] ? Surgical Pathology DIAGNOSIS A - Lung, ??left lower lobe mass, debulking: ?? - Adenocarcinoma, consistent with lung primary. Electronically signed by: ?Sana Dowell MD Verified: ??04/06/2021 11:16 ??Pathologist Performed at: ??-[facility] Dept. of Pathology, [place], [place] DISCUSSION Sections show an invasive, predominantly [...] propria. - No muscularis propria identified. Labs: Recent Results (from the past 72 hour(s)) TSH Result Value Ref Range TSH 2.98 0.27 - 4.20 mcIU/mL T4, free Result Value Ref Range Free T4 0.85 (L) 0.93 - 1.70 ng/dL Comprehensive metabolic panel (non-fasting) Result Value Ref Range Glucose Lvl 94 65 - 199 mg/dL BUN 29 (H) 8 - 18 mg/dL Creatinine 1.51 (H) 0.70 - 1.20 mg/dL Sodium 136 135 - 145 mmol/L Potassium 4.5 3.5 - 5.0 mmol/L Chloride 105 98 - 107 mmol/L CO2 19 (L) 22 - 31 mmol/L Anion Gap 12 5 - 15 mmol/L Calcium 10.0 8.5 - 10.5 mg/dL Total Protein 8.2 (H) 6.1 - 8.0 g/dL Albumin 3.5 3.2 - 5.2 g/dL AST 11 0 - 30 unit/L ALT 14 0 - 30 unit/L Alk Phos 85 35 - 105 unit/L Total Bilirubin 0.3 0.2 - 1.3 mg/dL Estimated GFR 35 (L) >=60 mL/min/1.73 m?? Hemogram Result Value Ref Range WBC 23.5 (H) 4.0 - 9.5 x10(3)/mcL RBC 3.63 (L) 4.00 - 5.21 x10(6)/mcL Hemoglobin 9.2 (L) 11.7 - 15.5 g/dL Hematocrit 30.1 (L) 35.7 - 45.8 % MCV 82.9 82.6 - 94.4 fL MCH 25.3 (L) 27.1 - 32.0 pg MCHC 30.6 (L) 31.7 - 35.0 g/dL Platelets 873 (H) 145 - 357 x10(3)/mcL RDWSD 61.5 (H) 37.0 - 46.0 fL RDWCV 20.1 (H) 11.5 - 14.1 % MPV 8.8 7.6 - 12.9 fL nRBC % Auto 0.0 % nRBC Abs Auto 0.000 0.000 - 0.000 x10(3)/mcL Differential, Automated Result Value Ref Range Neutrophils % 76.4 % Neutr Abs (ANC) 17.99 (H) 1.70 - 6.10 x10(3)/mcL Lymphocytes % 10.3 % Lymphocytes Abs 2.4 0.9 - 3.2 x10(3)/mcL Monocytes % 5.0 % Monocyte Abs 1.2 (H) 0.3 - 0.9 x10(3)/mcL Eosinophils % 7.1 % Eosinophils Abs 1.7 (H) 0.0 - 0.4 x10(3)/mcL Basophils % 0.5 % Basophils Abs 0.1 0.0 - 0.1 x10(3)/mcL Immature Gran % 0.70 % Dayana Gran Abs 0.16 (H) 0.00 - 0.04 x10(3)/mcL 03/21/2021 WBC 27.8, hemoglobin 10.2, platelet count [...] and lung versus primary lung cancer Treatment: 04/18/21- Pembrolizumab 300mg IV every 3 weeks Treatment Planning: Ms. Bullard presented with bilateral hydronephrosis and acute kidney failure. She was found to have large left lower lobe mass and bladder mass. 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 We discussed treatment option of presumably metastatic urothelial carcinoma which include gambell based chemotherapy versus immunotherapy. Due to her kidney failure she is not eligible for cisplatinbased chemotherapy. It would be hard to manage side effects of carboplatin in patients with creatinine clearance less than 30 liters per minutes. 04/17/21 Lung biopsy and lymph node stations [...] She is interested to proceed with pembrolizumab. Barb presented today accompanied by her daughter Daisha for education. Reviewed above treatment planning and her understanding of her cancer and answered any questions. The following information was reviewed with Barb and her daughter Daisha. Antitumor Therapy Schedule: Pembrolizumab 300mg IV every 3 weeks Laboratory Tests: You will need labs before each treatment. Provider Visits: You will see your doctor or TRANSFORMATION ANALYST before each treatment to check your labs and make sure you are doing OK. Possible Side Effects include, but are not limited to: Pembrolizumab: side effects include but are not limited to low blood counts (decrease in red blood cells, resulting in anemia), fatigue, infusion reaction, skin reactions or rash (redness, blistering, peeling or loosening of the skin, including inside the mouth), increased liver enzymes, constipation or diarrhea, shortness of breath, nausea, vomiting, swelling, itching, electrolyte abnormalities,dizziness, joint or muscle pain, thyroid dysfunction, headaches. A serious but uncommon side effectmay be an immune-mediated reaction. When this side effect occurs, it affects primarily the bowels, liver, skin, nerves and the endocrine system Medications: the following prescriptions should be picked up before starting treatment Prochlorperazine(Compazine) 10mg to be taken by mouth every 6 hours as needed for nausea or vomiting. Suggestions for constipation- OTC Senekot tablets or Smooth move tea. Miralax at bedtime Plan: Barb was given written information regarding treatment regimen, side effects and management strategies. She was given [employer] answers handouts- side effects of immunotherapy and Understanding Immunotherapy. We reviewed side effects of medication, symptom management, how and when to call the clinic, home safety and emergency procedures. They were given an opportunity to ask questions and verbalized understanding of the information and treatment plan. No barriers to learning were identified. Barb was counseled on how to call for any further questions or concerns. ??? Treatment is scheduled to begin today. o Baseline blood work was reviewed and is adequate for treatment ??? Supportive Care: Lives with her daughter Daisha and her now. ??? Fertility: N/A ??? Smoking cessation: N/A ??? Advance Directives: A copy of the Advanced Directive was given to the patient. Will refer to social work to assist with completion. She does not have advance directives. ??? Psychosocial: Appears to be coping well with diagnosis. Asked appropriate questions today. ??? Reviewed Social work and winding lathe operator availability. ??? Follow up: Return to clinic in 3 weeks with labs- CBC,CMP, TSH, FT4 and C2 Pembrolizumab. ??? She would like to get her labs at [facility] prior to visit ??? Referral to Dr. Beckwith for nephrostomy tube management. Barb voiced understanding of the plan and was given an opportunity to ask questions which I answered to the best of my ability. Barb understands she can call the clinic between visits with any questions/concerns or new symptoms. Abena Ogden MSN, CLINICAL DOCUMENTATION CLERK, AOCNP Medical Oncology I spent 30 minutes, (including face to face and non-face to face time) for this encounter. This includes: Preparation for the visit: _x_ reviewing test results _x_ obtaining interim medical/surgical history __ reviewing patient completed questionnaires During the visit: _x_ obtaining the history/ROS _x_ performing medically appropriate examination and ROS _x_ reviewing test results with patient/family/caregiver _x_ discussing disease status _x_ counseling/educating the patient/family/caregiver __ ordering medications/tests/procedures _x_ referring and communicating with other health professionals Post visit: x__ documenting in medical record x__ communications with other health professionals __ other: documented in this encounter Plan of Treatment Upcoming Encounters Date Type Department Care Team (Late st Contact Info) Description 12/08/2023 3:30 PM EDT Office Visit Hematology/Oncology at [address] [phone] Chase Mckay MD [facility] [place] [address] Scheduled Referrals Name Type Priority Associated Diagnoses Orde r Schedule Referral to Urology Outpatient Referral Routine Metastatic urothelial carcinoma Ordered: 04/18/2021 documented as of this encounter Visit Diagnoses Diagnosis Metastatic urothelial carcinoma Secondary malignant neoplasm of other urinary organs documented in this encounter Care Teams Second Worker Relationship Specialty Start Date End Date Eren Shah DNP PCP - General Family Medicine 03/20/21 06/10/22 documented as of this encounter
--- OUTSIDE RECORDS SUMMARY | 2023-11-21 16:01 | XMS_ITS | Encounter Summary ---
Author Organization [facility] [place] [address] Care Team Providers Care Signals Collector/Analyst Name Role Phone Eren Shah DNP Primary Care Provider [phone] Encounter Details Date Type Department Care Team (Late st Contact Info) Description 03/21/2021 [place] [address] Nasim Beckwith MD [facility] [place] [address] Social History Tobacco Use Types Packs/Day Years Used Date Smoking Tobacco: Former Cigarettes Q uit: 07/04/2014 Smokeless Tobacco: Never Sex and Gender Information Value Date Recorded Sex Assigned at Not on file Gender Identity Not on file Sexual Orientation Not on file documented as of this encounter Miscellaneous Notes * Telephone Encounter - Nasim Beckwith MD - 03/21/2021 6:54 PM EST I was contacted by an [facility] emergency room provider regarding the patient who has a bladder cancer and bilateral ureteral obstruction managed with bilateral PCNs. The right NT is not draining and the patient is not having pain and renal function ok. I recommended to schedule a reposition of the NT with interventional radiology on Friday or sooner if renal function becomes a concern. documented in this encounter Plan of Treatment Upcoming Encounters Date Type Department Care Team (Late st Contact Info) Description 12/08/2023 3:30 PM EDT Office Visit Hematology/Oncology at [address] [phone] Chase Mckay MD [facility] DR HEMATOLOGY [place] [address] documented as of this encounter Visit Diagnoses Not on filedocumented in this encounter Care Teams Signals Collector/Analyst Relationship Specialty Start Date End Date Eren Shah DNP PCP - General Family Medicine 03/20/21 06/10/22 documented as of this encounter
--- OUTSIDE RECORDS SUMMARY | 2023-11-21 16:01 | XMS_ITS | Encounter Summary ---
Author Organization [facility] [place] [address] Care Team Providers Care State Farm Agent Team Member Name Role Phone None Primary Care Provider Unavailabl e Encounter Details Date Type Department Care Team (Late st Contact Info) Description 02/27/2021 Telephone [place] [address] Oralia Null Social History Tobacco Use Types [...] PM EDT Office Visit Hematology/Oncology at [address] [phone] Chase Mckay MD [facility] DR [place] [address] documented as of this encounter Visit Diagnoses Not on filedocumented in this encounter Care Teams State Farm Agent Team Member Relationship Specialty Start Date End Date None None PCP - General 02/20/21 03/19/21 documented as of this encounter
--- OUTSIDE RECORDS SUMMARY | 2023-11-21 16:02 | XMS_ITS | Encounter Summary ---
[facility] [place] [address] Care Team Providers Care Warehouse Distribution Associate Name Role Phone None Primary Care Provider Unavailabl e Reason for Referral * Diagnostic Test (Emergency) - Closed Specialty Diagnoses / Procedures Referred By Contjoslyn t Referred To Contact Radiology Diagnoses Lung mass Procedures NM PET CT Skull Base to Mid-thigh Alonzo Cevallos MD [facility] [place] [address] [place] [address] Referral ID Status Reason Start Date Expiration Date V isits Requested Visits Authorized [id number] Closed Specialty Service Requested 02/20/2021 08/21/2022 1 1 Encounter Details Date Type Department Care Team (Late st Contact Info) Description 02/20/2021 Orders [place] [address] Alonzo Cevallos MD [facility] [place] [address] Lung mass Social History Tobacco Use Types [...] PM EDT Office Visit Hematology/Oncology at [address] [phone] Chase Mckay MD [facility] [address] [place] [address] documented as of this encounter Results * [...] have questions please contact the health residential care officer that requested your imaging first. ? Electronically signed by: Billy Anderson MD, [facility] ([phone]), at 03/20/2021 3:34 PM Narrative 03/20/2021 3:34 PM EST EXAMINATION: NM PET CT STANDARD SKULL BASE TO MID-THIGH CLINICAL HISTORY: 70-year-old female with lung mass with left lower lobe obstruction and bladder mass presents for staging exam TECHNIQUE: Following IV injection of 30-iuughs-4-deoxyglucose (FDG) a standard uptake of approximately 60 [...] staging exam TECHNIQUE: Following IV injection of 68-rjspes-3-deoxyglucose (FDG) astandard uptake of approximately 60 minutes, [...] who have questions please contactthe health residential care officer that requested your imaging first. Electronically signed by: Billy Anderson MD, [facility]([phone]), at 03/20/2021 3:34 PM Alonzo Cevallos MD IMG PET ORDERABLES documented in this encounter Visit Diagnoses Diagnosis Lung mass Swelling, mass, or lump in chest Lung mass Swelling, mass, or lump in chest documented in this encounter Care Teams Warehouse Distribution Associate Relationship Specialty Start Date End Date None None PCP - General 02/20/21 03/19/21 documented as of this encounter
--- OUTSIDE RECORDS SUMMARY | 2023-11-21 16:02 | XMS_ITS | Encounter Summary ---
Author Organization [facility] [place] [address] Care Team Providers Care Manager Infusion Name Role Phone Unavailable Primary Care Provider Unavailabl e Encounter Details Date Type Department Care Team (Late Contact Info) Description 02/18/2021 Ancillary Procedure [place] [address] Jaycee Mckeon MD [address] [place] [address] Social History Tobacco Use Types Packs/Day Years [...] PM EDT Office Visit Hematology/Oncology at [address] [phone] Chase Mckay MD [facility] DR [place]ATOLOG[place] [address] documented as of this encounter Procedures Procedure Name Priority Date/Time Associated Diagnosis Comments FILM LIBRARY STORAGE ONLY CT HEAD Routine 02/18/2021 12:00 AM EDT documented in this encounter Results * Film Library- Storage Only CT Head (02/18/2021 12:00 AM EDT) Narrative [facility] - 02/19/2021 4:27 PM EDT This exam is auto-finalizing. It's purpose is for storage only. Jaycee Mckeon MD IMG FILM LIBRARY ORD ERABLES Performing Organization Address City/State/[facility] Co de Phone Number [facility] [place], [place] documented in this encounter Visit Diagnoses Not on filedocumented in this encounter
--- OUTSIDE RECORDS SUMMARY | 2023-11-21 16:02 | XMS_ITS | Encounter Summary ---
Author Organization [facility] [place] [address] Care Team Providers Care Touch Up Painter Name Role Phone Unavailable Primary Care Provider Unavailabl e Encounter Details Date Type Department Care Team (Late st Contact Info) Description 02/19/2021 [place] [address] Jean Carlos Fenton, [facility] [place] [address] Social History Tobacco Use Types Packs/Day Years Used Date Smoking Tobacco: Never Assessed Sex and Gender Information Value Date Recorded Sex Assigned at Not on file Gender Identity Not on file Sexual Orientation Not on file documented as of this encounter H&P Notes * Jean Carlos Fenton, - 02/19/2021 5:55 PM EDT Images from the original note were not included. INTERVENTIONAL RADIOLOGY FOCUSED H&P and PRE-PROCEDURE NOTE: PCP: No primary care provider on file. Referring Provider: Dr. Jaycee Mckeon Planned Procedure: Planned procedure: Bilateral Nephrostomy Catheter Placement Procedure Indication: Malignant bilateral ureteral obstruction. Bilateral Hydronephrosis. Acute Renal Injury. Interventional Radiology Service contacted by Dr. Antwan Mckeon via the Transfer Center at 6:00 PM on 02/19/21 regarding the procedure request below. Presenting Diagnosis/ Complaint: Barb Bullard is a 70 y.o. female presenting to IR for bilateral nephrostomy catheter placement (Down and Back procedure from [facility], unit phone number: [phone]). 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 Patient presented to [facility] on 02/18/21 with fatigue and weakness, with creatinine of 6.6, found to have a bladder mass with bilateral hydronephrosis. There was also a left lower lobe mass with a small left pleural effusion, metastatic versus secondary primary. On 02/19, Urology attempted bilateral ureteral stent placement, which was non-successful. Course complicated by hematuria requiring transfusion with 1 unit of packed RBCs and hyperkalemia (5.9) managed medically with repeat pending. IR is consulted for percutaneous bilateral nephrostomy catheter placement. Dr. Lukas Mckeon at [facility] was instructed to fax an order, H&P including medication list, as well as most recent laboratories. I did inform Dr. Mckeon that with an elevated potassium we would be unable to sedate; she will obtain a repeat potassium now and treat throughout the evening with plan to repeat early tomorrow AM; if hyperkalemia persists, the patient may require hemodialysis catheter placement and treatment prior to nephrostomy catheter placement. IR History: None at [facility] Antiplatelets: None. Anticoagulants: None. Recent Laboratories: ??? Pending in facsimile. ??? Getting Laboratories Before Procedure: Repeat potassium. Allergies: None.. Past Medical/Surgical History: Pending. Medications: Pending. Allergies: Patient has no allergy information on record. Social History and Habits: Social History Socioeconomic History ??? Marital status: Not on file Spouse name: Not on file ??? Number of children: Not on file ??? Years of education: Not on file ??? Highest education level: Not on file Occupational History ??? Not on file Tobacco Use ??? Smoking status: Not on file ??? Smokeless tobacco: Not on file Substance and Sexual Activity ??? Alcohol use: Not on file ??? Drug use: Not on file ??? Sexual activity: Not on file Other Topics Concern ??? Not on file Social History Narrative ??? Not on file Social Determinants of Health Financial Resource Strain: ??? Difficulty of Paying Living Expenses: Not on file Food Insecurity: ??? Worried About Running Out of Food in the Last Year: Not on file ??? Ran Out of Food in the Last Year: Not on file Transportation Needs: ??? Lack of Transportation (Medical): Not on file ??? Lack of Transportation (Non-Medical): Not on file Physical Activity: ??? Days of Exercise per Week: Not on file ??? Minutes of Exercise per Session: Not on file Housing Stability: ??? Unable to Pay for Housing in the Last Year: Not on file ??? Number of Places Lived in the Last Year: Not on file ??? Unstable Housing in the Last Year: Not on file Significant Family History: No family history on file. Pertinent ROS: as per HPI Labs: Imaging: Physical Exam: Pending (to be performed in angio the day of procedure) ASA: Pending (to be assessed in angio the day of procedure) Mallampati Class: Pending (to be assessed in angio the day of procedure) Assessment: 70 y.o. 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 Complicated by bilateral ureteral obstruction and hydronephrosis with acute renal injury (Creatinine 6.6) and Hyperkalemia (5.9). IR is consulted for bilateral nephrostomy catheter placement. Plan: Planned procedure: Bilateral Nephrostomy Catheter Placement Labs to be performed day of procedure: Potassium Sedation: Moderate (Conscious sedation) Prophylactic antibiotic : Cipro Contrast: Omnipaque Additional medications for procedure: Lidocaine Planned access site: Bilateral Flanks Position: Prone Consent: Pending Medications to discontinue (and days held): None Case Urgency:: D- Intervention within 24 hrs 02/19/2021 documented in this encounter Plan of Treatment Upcoming Encounters Date Type Department Care Team (Late st Contact Info) Description 12/08/2023 3:30 PM EDT Office Visit Hematology/Oncology at [address] [address] Chase Mckay MD [facility] DR HEMATOLOGY [place] [address] documented as of this encounter Visit Diagnoses Diagnosis Hydronephrosis, bilateral Hydronephrosis Bladder mass Other specified disorders of bladder Acute kidney injury Acute kidney failure, unspecified documented in this encounter
--- OUTSIDE RECORDS SUMMARY | 2023-11-21 16:02 | XMS_ITS | Encounter Summary ---
Author Organization [facility] [place] [address] Care Team Providers Care Electric Powerline Examiner Name Role Phone Unavailable Primary Care Provider Unavailabl e Encounter Details Date Type Department Care Team (Late st Contact Info) Description 02/18/2021 12:05 AM EDT Ancillary Procedure [place] [address] Jaycee Mckeon MD [address] [place] [address] Social History Tobacco Use Types Packs/Day Years [...] PM EDT Office Visit Hematology/Oncology at [address] [phone] Chase Mckay MD [facility] DR [place] [address] documented as of this encounter Procedures Procedure Name Priority Date/Time Associated Diagnosis Comments FILM LIBRARY STORAGE ONLY CT CHEST ABDOMEN PELVIS Routine 02/18/2021 12:05 AM EDT documented in this encounter Results * Film Library- Storage Only CT Chest Abdomen Pelvis (02/18/2021 12:05 AM EDT) Narrative [facility] - 02/19/2021 4:30 PM EDT This exam is auto-finalizing. It's purpose is for storage only. Jaycee Mckeon MD IMG FILM LIBRARY ORD ERABLES Performing Organization Address City/State/[facility] Co de Phone Number [facility] [place], [place] documented in this encounter Visit Diagnoses Not on filedocumented in this encounter
--- OUTSIDE RECORDS SUMMARY | 2023-11-21 16:02 | XMS_ITS | Encounter Summary ---
[place] [address] Care Team Providers Care Software Test Engineer Name Role Phone None Primary Care Provider Unavailabl e Reason for Visit * Diagnostic Test (Routine) - Closed Specialty Diagnoses / Procedures Referred By Etta t Referred To Contact Radiology Diagnoses Hydronephrosis, bilateral Bladder mass Acute kidney injury Procedures IR Nephrostomy Tube Placement Percutaneous Bilateral IR Nephrogram/Nephrostomy Tube Exchange Bilateral Jaycee Mckeon MD [address] [place] [address] [place] [address] Referral ID Status Reason Start Date Expiration Date V isits Requested Visits Authorized [id number] Closed Specialty Service Requested 02/20/2021 08/21/2022 1 1 Encounter Details Date Type Department Care Team (Latest Contact Info) Description 02/20/2021 11:47 AM EDT - 02/20/2021 11:59 PM EDT Hospital [place] [address] Jaycee Mckeon MD [address] [place], [place] [id number] Hydronephrosis, bilateral; Bladder mass; Acute kidney injury Discharge Disposition: Home Social History Tobacco Use Types Packs/Day Years Used Date Smoking Tobacco: Never Assessed Sex and Gender Information Value Date Recorded Sex Assigned at Not on file Gender Identity Not on file Sexual Orientation Not on file documented as of this encounter Last Filed Vital Signs Vital Sign Reading Time Taken Comments Blood Pressure 128/54 02/20/2021 1:31 PM EDT Pulse 113 02/20/2021 1:15 PM EDT Temperature 36.1 ??C (97 ??F) 02/20/2021 1:31 PM EDT Respiratory Rate 16 02/20/2021 1:31 PM EDT Oxygen Saturation 97% 02/20/2021 1:31 PM EDT Inhaled Oxygen Concentration - - Weight - - Height - - Body Mass Index - - documented in this encounter Progress Notes * Glo Levy RN - 02/20/2021 8:11 AM EDT ANGIO NURSING DATABASE Name: BARB BULLARD Date of : 1950 AGE: 70 y.o. Address: No address on file. Phone: There are no phone numbers on file. Mobile: No relevant phone numbers on file. Referring Provider: Jaycee Mckeon REASON FOR VISIT: Order Questions Answers Where will study be performed? [facility] Radiology [120] Reason for exam and clinical history: metastaic bladder cancer. Acute on chronic kidney injury. elevated creatinine. Hematuria. Bilateral ureteral obstruction with hyfronephrosis Is the patient on anticoagulant / antiplatelet therapy ? No Not on File Pertinent PMH: There is no problem list on file for this patient. Date/Procedure Meds Given/Comments 02/20/21 b/l PCN Placement No abx - covered from meds at OSH 4 mg midazolam, 175 mcg fentanyl Laboratory Results: documented in this encounter H&P Notes * Lashawn Rowell - 02/20/2021 12:12 PM EDT INTERVENTIONAL RADIOLOGY FOCUSED H&P: Procedure: Bilateral PCN catheter placement The patient's history and physical exam have been reviewed and completed. There has been no interval change from that of the pre-operative history and physical exam done within the last 30 days. Physical Exam: Cardiovascular: Regular, Normal Pulmonary: Mild inspiratory wheezes bilaterally on anterior auscultation The planned procedure (and sedation plan if appropriate) , its benefits and risks, and alternativeswere discussed with the patient. The patient consented to the procedure. PRE-SEDATION ASSESSMENT: Sedation Plan: moderate (conscious sedation) ASA: 3: Patient with severe systemic disease Mallampati: II: tonsillar pillars are blocked by the tongue Confirm NPO status: Yes History of anesthetic complications: No Current medications reviewed: No Allergies reviewed: Yes Source Note - Jean Carlos Fenton DO - 02/19/2021 5:55 PM EDT Images from [...] catheter placement (Down and Back procedure from [facility], unit phone number: [phone]). 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 Patient presented to [facility] on 02/18/21 with fatigue and weakness, with [...] nephrostomy catheter placement. Dr. Lukas Mckeon at [facility] was instructed to fax an order, H&P [...] nephrostomy catheter placement. IR History: None [place] [facility] Antiplatelets: None. Anticoagulants: None. Recent Laboratories: ??? [...] PM EDT Office Visit Hematology/Oncology at [address] [address] Chase Mckay MD [facility] [address] [place] [address] documented as of this encounter Procedures Procedure Name Priority Date/Time Associated Diagnosis Comments IR NEPHROSTOMY TUBE PLACEMENT PERCUTANEOUS BILATERAL Routine 02/20/2021 1:31 PM EDT Hydronephrosis, bilateral Bladder mass Acute kidney injury HC URINE CULTURE Routine 02/20/2021 12:4 9 PM EDT HC URINE CULTURE Routine 02/20/2021 12:4 2 PM EDT documented in this encounter Results * IR Nephrostomy Tube Placement Percutaneous Bilateral (02/20/2021 1:31 PM EDT) Anatomical Region Laterality Modality X-Ray Angiograph y Narrative 02/20/2021 1:28 PM EDT INTERVENTIONAL RADIOLOGY PROCEDURE NOTE ?? Procedure: Bilateral Antegrade Nephroureteral Catheter Placement ?? Indication for Procedure: Metastaic bladder cancer. Acute on chronic kidney injury. elevated creatinine. Hematuria. Bilateral ureteral obstruction with hydronephrosis Barb Bullard is a 70 y.o. female presenting to IR for bilateral nephrostomy catheter placement (Down and Back procedure from [facility], unit phone number: [phone]). 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 Patient presented to [facility] on 02/18/21 with fatigue and weakness, with creatinine of 6.6, found to have a bladder mass with bilateral hydronephrosis. ??There was also a left lower lobe mass with a small left pleural effusion, metastatic versus secondary primary. ??On 02/19, Urology attempted bilateral ureteral stent placement, which was non-successful. ?? Course complicated by hematuria requiring transfusion with 1 unit of packed RBCs and hyperkalemia (5.9) managed medically with repeat pending. ?? IR is consulted for percutaneous bilateral nephrostomy catheter placement. Dr. Lukas Mckeon at [facility] was instructed to fax an order, H&P including medication list, as well as most recent laboratories. ??I did inform Dr. Mckeon that with an elevated potassium we would be unable to sedate; she will obtain a repeat potassium now and treat throughout the evening with plan to repeat early tomorrow AM; if hyperkalemia persists, the patient may require hemodialysis catheter placement and treatment prior to nephrostomy catheter placement. ?? Informed Consent: After discussing risks (including infection, trauma / damage to surrounding structures, hemorrhage, non-success, amongst others), and benefits of the procedure, the patient consented to the procedure. ?? Monitoring and Sedation Details: Due to the painful nature of the procedure, patient received split doses of intravenous fentanyl and versed from the IR nurse while pulse, pressure,??end tidal CO2 parameters and oxygen saturation were continuously monitored. ?? Procedure Events and Technique: ?? A standard time-out was conducted just before the start of the procedure to verify all kaiser aspects; including the correct patient and planned procedure, procedure location, informed consent, and all relevant critical information, all of which were correct. ?? The patient was positioned prone on the procedure table. ??The bilateral flanks was cleaned and prepped in typical sterile fashion; maximal sterile barrier technique was used throughout. ? The procedure was performed under sonographic and fluoroscopic guidance. ?? The left kidney was identified with sonography. ??Local anesthesia was obtained with 1% lidocaine injected subcutaneously via a 25-gauge needle. ?? Under realtime sonographic guidance, a 21-gauge needled was advanced through a lower pole calyx into the renal collecting system. ??An 0.018 guide wire was advanced. ??The needle was removed and over the wire an Accu-Stick 4/6-Fr coaxial system was advanced. The inner obturator and wire were removed. Contrast was injected. ??Using an 0.035 stiff glide and 4-Fr catheter, access was obtained to the urinary bladder, confirmed with contrast injection. ??Through the catheter, an 0.035 Amplatz guide wire was advanced. ??The tract was dilated and a 10.2-Fr x 22 cm nephroureteral catheter was advanced, pigtails formed. ??Building Construction Foreman fluoroscopic image was obtained. ??Contrast was injected and fluoroscopic image was obtained. The catheter was sutured in place with 2-0 Prolene. ??A sterile dressing was applied. ?? The procedure was repeated on the right. ?? Medications: Fentanyl 175 mcg IV, Versed 4 mg IV, 1% Lidocaine <10 cc subcutaneous. Antibiotic Prophylaxis: None additional; patient received 2 gm Ceftriaxone prior to transfer to [facility]. Contrast: 80 cc Omnipaque 350, intra-urinary. Fluoroscopic Time: 7.2 minutes. Estimated Blood Loss: < 5 cc. Complications: ??No immediate. ?? Findings: ?? Bilateral hydronephrosis, unchanged from prior CT examination. ?? Placement of 10.2-Fr x 22-cm nephroureteral catheter with pigtails formed within the bilateral renal pelvises and the urinary bladder ?? Irregular appearance to the urinary bladder, consistent with tumoral invasion as seen on prior CT. ?? Impression: Successful bilateral antegrade nephroureteral catheter placement. ?? Resident/Fellow: Dr. Lashawn Rowell. Attending: Dr. Jean Carlos Fenton. I, Dr. Fenton, was present throughout the procedure. I was present during the intraservice time as documented by the IR Nurse.?? Jaycee Mckeon MD [facility] IR ORDERABLES * (ABNORMAL) Urine culture Nephrostomy Urine; Flank pain (02/20/2021 12:49 PM EDT) Urine Culture 1,000-9,000 cfu/ml Beta-hemolytic Streptococcus, Group C or G : Susceptibility testing not routinely performed for Coagulase Negative Staphylococcus species and other Gram Positive organisms from urine. 10,000-49,000 cfu/ml Normal mucosal amarilys (A) [facility] Organism Beta-hemolytic Streptococcus, Group C or G(A) [facility] Nephrostomy Urine 02/20/2021 12:49 PM EDT 02/20/2021 1:40 PM EDT Comment:Left Narrative Resulting Agency Comment Spec In Lab Jaycee Mckeon MD MICROBIOLOGY - GENER AL ORDERABLES Performing Organization Address [facility] de Phone Number [facility] [place] [address] * Urine culture Nephrostomy Urine; Flank pain (02/20/2021 12:42 PM EDT) Urine Culture 10,000-49,0 00 cfu/ml Normal mucosal amarilys [facility] Nephrostomy Urine 02/20/2021 12:42 PM EDT 02/20/2021 1:39 PM EDT Comment:Right Narrative Resulting Agency Comment Spec In Lab Jaycee Mckeon MD MICROBIOLOGY - GENER AL ORDERABLES Performing Organization Address [facility] de Phone Number [facility] [place] [address] documented in this encounter Visit Diagnoses Diagnosis Hydronephrosis, bilateral Hydronephrosis Bladder mass Other specified disorders of bladder Acute kidney injury Acute kidney failure, unspecified documented in this encounter Administered Medications Inactive Administered Medications - up to 3 most recent administrations Medication Order MAR Action Action Date Dose Rate Site fentaNYL (pf) (50 mcg/mL) multi-dose injection 25-50 mcg 25-50 mcg, Intravenous, EVERY 3 MIN PRN, Starting on Fri02/20/21 at 1201, Until Fri02/20/21 at 1346, Pain, per unit protocol, - Start dose [...] and verbal order., Angio/IR (Intra-Procedure), Routine Given 02/20/2021 1:03 PM EDT 25 mcg Given 02/20/2021 12:58 PM EDT 25 mcg Given 02/20/2021 12:53 PM EDT 25 mcg iohexoL (Omnipaque) (350 mg/mL) injection solution 1-400 mL 1-400 mL, Other, ONCE, 1 dose, On e 02/20/21 at 1230, For intra-procedural use by proceduralist., Angio/IR (Intra-Procedure), Routine Given 02/20/2021 12:30 PM EDT 30 mLs midazolam (pf) (Versed) (1 mg/mL) multi-dose injection 0.5-1 mg 0.5-1 mg, Intravenous, EVERY 3 MIN PRN, Starting on 02/20/21 at 1201, Until Fri02/20/21 at 1346, Sleep, - Start dose; 1 mg (Reduce [...] and verbal order., Angio/IR (Intra-Procedure), Routine Given 02/20/2021 1:03 PM EDT 1 mg Given 02/20/2021 12:58 PM EDT 0.5 mg Given 02/20/2021 12:53 PM EDT 0.5 mg sodium chloride 0.9 % (flush) (BD PosiFlush Normal Saline 0.9) flush 5 mL 5 mL, Intravenous, 2 TIMES DAILY, First dose on 02/20/21 at 1230, Until Discontinued, Routine Given 02/20/2021 12:15 PM EDT 5 mLs sodium chloride 0.9% infusion 1,000 mL, at 100 mL/hr, Intravenous, CONTINUOUS, Starting on 02/20/21 at 1230, Until Fri02/20/21 at 1346, Angio/IR (Day of Procedure) New Bag 02/20/2021 12:15 PM EDT 1,000 mLs 100 mL/hr documented in this encounter Care Teams Software Test Engineer Relationship Specialty Start Date End Date None None PCP - General 02/20/21 03/19/21 documented as of this encounter
--- OUTSIDE RECORDS SUMMARY | 2023-11-21 16:02 | XMS_ITS | Encounter Summary ---
Author Organization [facility] [place] [address] Care Team Providers Care Manager Sports Name Role Phone Unavailable Primary Care Provider Unavailabl e Encounter Details Date Type Department Care Team (Late st Contact Info) Description 02/19/2021 4:30 PM EDT Ancillary Procedure [place] [address] Jaycee Mckeon MD [address] [place] [address] Social History Tobacco Use Types Packs/Day Years [...] PM EDT Office Visit Hematology/Oncology at [address] [phone] Chase Mckay MD [facility] [address] [place] [address] documented as of this encounter Procedures Procedure Name Priority Date/Time Associated Diagnosis Comments FILM LIBRARY STORAGE ONLY DX ABDOMEN Routine 02/19/2021 4:28 PM EDT documented in this encounter Results * Film Library- Storage Only DX Abdomen (02/19/2021 4:28 PM EDT) Narrative RAD - 02/19/2021 4:28 PM EDT This exam is auto-finalizing. It's purpose is for storage only. Jaycee Mckeon MD IMG FILM LIBRARY ORD ERABLES Performing Organization Address City/State/[facility] Co de Phone Number [facility] [place], [place] documented in this encounter Visit Diagnoses Not on filedocumented in this encounter
== END 2023-11-21 15:50 | disposition home or self-care (01) ==
LOC: NCHCN 15:49
PROVIDERS: PCP Nurse Practitioner Family; Visit Provider Nurse Practitioner Family
DX: R82.998 Other abnormal findings in urine (principal); Z93.6 Other artificial openings of urinary tract status
CPT/HCPCS: 87086

== ENCOUNTER 2023-12-08 03:12 | Outpatient (RCR) | payer MEDICARE, SELFPAY ==
--- OUTSIDE RECORDS SUMMARY | 2023-12-08 03:31 | XMS_ITS | Encounter Summary ---
Author Organization [facility] Address [facility] [place] [address] Care Team Providers Care Front Services Agent Name Role Phone James Tavia Foster APRN Primary Care Provider [phone] Encounter Details Date Type Department Care Team (Latest Contact Info) Description 11/10/2023 Travel Social History Tobacco Use Types Packs/Day Years Used Date Smoking Tobacco: Former Cigarettes Q uit: 07/04/2014 Smokeless Tobacco: Never Alcohol Use Standard Drinks/Week Comments Not Currently 0 (1 standard drink = 0.6 oz pur e alcohol) [facility] Utilities Answer Date Recorded In [...] PM EDT Office Visit Hematology/Oncology at [address] [address] Chase Mckay MD [facility] DR HEMATOLOGY [place] [address] documented as of this encounter Visit Diagnoses Not on filedocumented in this encounter Care Teams Front Services Agent Relationship Specialty Start Date End Date Tavia Ramirez [place] [place] [address] PCP - General Family Medicine 06/11/22 documented as of this encounter
--- OUTSIDE RECORDS SUMMARY | 2023-12-08 03:31 | XMS_ITS | Encounter Summary ---
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 No 08/08/2023 DH IPV [...] original note were not included. Thoracic Oncology [place] [phone] Barb Bullard is being seen for the [...] 2..24. Briefly interrupted during an admission in [facility] for pyelonephritis. Resumed in 08/13/23 at 400mgdaily and well tolerated PET scan reviewed from 08/19/23 with excellent response to therapy. EKG at [facility] with Qtc 466 7.8.24 PET scan personally [...] MD, MS 11/06/2023 Medical Oncology & Hematology [facility] CC: Atiya Ramirez, WEB ADMINISTRATOR HPI/Interval History/Subjective: Last seen 08/25/2023 Had a [...] Social History/Support Network: Home situation: Lives in [facility]. Lives with her daughter. 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 Tobacco use: 30 pk year hx quit 2014 Alcohol use: Does not drink Drug use: None Financial Distress: Medicare A/B has financial assistance through the hospitals so not worried about food Fpc or ability to pay for her cancer [...] of left lower lobe mass lung debulking ([id number]), the immunostain findings in the present case [...] of left lower lobe mass lung debulking ([id number]), the immunostain findings in the present case [...] PM EDT Office Visit Hematology/Oncology at [address] [phone] Chase Mckay MD [facility] DR [place] [address] Scheduled Orders Name Type Priority Associated Diagnoses [...] 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
--- OUTSIDE RECORDS SUMMARY | 2023-12-08 03:31 | XMS_ITS | Encounter Summary ---
Author Organization [facility] Address [address] [place] [address] Care Team Providers Care Pneumatic System Conveyor Operator Name Role Phone Unknown, Provider Primary Care Provider Encounter Details Date Type Department Care Team (Late st Contact Info) Description 03/03/2021 Lab Requisition [facility] Pathology & Laboratory Medicine - [facility] [address] [place], [place] [address] Outr Resulting Lab, Provider Social History Tobacco [...] C Antibody Negative Negative 03/05/2021 9:42 EST [facility] Blood VENOUS BLOOD / Unknown 03/02/2021 14:00 EDT 03/04/2021 16:56 EST Provider Outr Resulting Lab CHEMISTRY & BLOOD GAS ORDERABLES [facility] [address] [place] [address] documented in this encounter Visit Diagnoses Not on filedocumented in this encounter Care Teams Pneumatic System Conveyor Operator Relationship Specialty Start Date End Date Unknown, Provider, PCP - General 04/28/20 documented as of this encounter
--- OUTSIDE RECORDS SUMMARY | 2023-12-08 03:31 | XMS_ITS | Clinical Summary ---
Author Organization [facility] Address [facility] [place] [address] Care Team Providers Care Aviation Mechanic Name Role Phone Tavia Ramirez APRN Primary Care Provider [phone] Allergies No known active allergies Medications Medication [...] Encounters Date Type Department Care Team Description 12/02/2023 Travel 11/27/2023 Notes [place] [address] Adeel Panchal MD 11/18/2023 Telephone Hematology/Oncolog y at [address] [phone] Marci Chen RN Medication Problem 11/17/2023 Telephone Hematology/Oncolog y at [address] [phone] Dianne Jacob APRN 11/13/2023 1:55 PM EDT - 11/13/2023 11:59 PM EDT Hospital [place] [phone] Guillermo Nice MD Obstructive uropathy; Bilateral hydronephrosis Discharge Disposition: Home 11/13/2023 Travel 11/13/2023 Orders [place] [address] Kris Aguilar MD Obstructive uropathy 11/10/2023 3:00 PM EDT Office Visit Hematology/Oncolog y at [address] [phone] Chase Mckay MD 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; Secondary malignant neoplasm of pleura; Metastatic urothelial carcinoma 11/10/2023 Travel 11/03/2023 11:56 AM EDT - 11/03/2023 11:59 PM EDT Hospital [place] [address] LaRoza, Dianne A, UMBRELLA TIPPER HAND Discharge Disposition: Home 11/03/2023 11:55 AM EDT Hospital Encounter Nuclear Medicine at [place] [phone] Dianne Jacob APRN 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; Metastatic urothelial carcinoma Discharge Disposition: Home 11/03/2023 11:14 AM EDT - 11/03/2023 11:54 AM EDT Hospital Encounter Hematology and Oncology at [place] [phone] 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 Discharge Disposition: Home 11/03/2023 Travel 10/31/2023 Travel 10/16/2023 Telephone Hematology/Oncolog y at [address] [phone] Marci Chen RN 10/03/2023 10:51 AM EDT - 10/03/2023 11:59 PM EDT Hospital [place] [address] Jean Carlos Fenton DO Metastatic urothelial carcinoma; BRITNI (acute kidney injury); Pyelonephritis; Secondary malignant neoplasm of pleura; 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; Obstructive uropathy; Lung mass; Folate deficiency; Bilateral hydronephrosis; Anemia, unspecified type; Abnormal thyroid function test Discharge Disposition: Home 10/02/2023 Travel 09/29/2023 1:30 PM EDT Office Visit Hematology/Oncolog y at [address] [phone] Chase Mckay MD LaRoza, Stephanie A, APRN 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; High risk medication use; Prolonged QT interval; Metastatic urothelial carcinoma 09/29/2023 Travel 09/26/2023 Travel 09/18/2023 10:50 AM EDT - 09/18/2023 11:59 PM EDT Hospital [place] [address] Guillermo Nice MD Metastatic urothelial carcinoma; BRITNI (acute kidney injury); Pyelonephritis; Secondary malignant neoplasm of pleura; 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; Obstructive uropathy; Lung mass; Folate deficiency; Bilateral hydronephrosis; Anemia, unspecified type; Abnormal thyroid function test Discharge Disposition: Home 09/18/2023 Travel 09/13/2023 Travel from Last 3 Months Immunizations Name Administration Dates Next Due Influenza (Fluzone HD) Quadr ivalent High Dose, Preservative Free 03/20/2021 Social History Tobacco Use Types Packs/Day Years Used Date Smoking Tobacco: Former Cigarettes Q uit: 07/04/2014 Smokeless Tobacco: Never Alcohol Use Standard Drinks/Week Comments Not Currently 0 (1 standard drink = 0.6 oz pur e alcohol) [facility] Utilities Answer Date Recorded In [...] in a [facility] (including now)? No 08/08/2023 IPV Inpatient Questions [...] PM EDT Office Visit Hematology/Oncology at [address] [phone] Chase Mckay MD [facility] DR [place]ATOLOG[place] [address] Health Maintenance Due Date Last Done Comments [...] history exists Medical Devices Implanted Type Area Solar Water Heater Installer Device Identifier Shelf Expiration Date Model / Serial / Lot Port Infusion 8fr Cath Power Lp Ct Plastic Dignity [id number]/02 Implanted:Qty: 1 on 04/02/2021 by Yuval Sinclair PA IMPLANTS [employer] - [employer] [place] 09/25/2024 [id number] / / [id number] Description:rij Procedures Procedure Name Priority Date/Time Associated [...] lower lobe of lung COMPREHENSIVE METABOLIC PANEL Routine 11/03/2023 11:27 AM EDT 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 CBC (WITH DIFF) Routine 11/03/2023 11:27 AM EDT Primary malignant [...] Blood Loss: None Fluoroscopy time: Please see [facility] IR technologist record for procedural dose/time Operators: [...] nephrostomy tube as above. ??Note, pt prefers [facility] ??Neph tubes due to added length [...] Base to Mid-thigh (11/03/2023 1:26 PM EDT) Pathologist [employer] WORKSTATION ID [id number] RAD Anatomical Region Laterality Modality Positron Emissio [...] please contact the health child care attendant school that requested your imaging first. ? Narrative 11/05/2023 11:29 AM EDT EXAMINATION: NM PET CT STANDARD SKULL BASE TO MID-THIGH CLINICAL HISTORY: NSCLC Metastatic non-small cell lung cancer subsequent treatment evaluation. Also history of bladder cancer. C34.32, Malignant neoplasm of lower lobe, left bronchus or lung - C79.10, Secondary malignant neoplasm of unspecified urinary organs. TECHNIQUE: Following IV injection of 77-pgwclu-3-deoxyglucose (FDG) a standard uptake of approximately 60 [...] urinary organs. TECHNIQUE: Following IV injection of 58-hnumsr-5-deoxyglucose (FDG) astandard uptake of approximately 60 minutes, [...] questions please contactthe health child care attendant school that requested your imaging first. Dianne Jacob APRN IMG PET ORDERABL ES * POCT Glucose (11/03/2023 12:05 PM EDT) Pathologist [facility] Glucose, POC 101 65 - 199 mg/dL [facility] Comment: Supplemental ranges: <140 mg/dL before meals <180 mg/dL all other times of the day Blood 11/03/2023 12:0 5 PM EDT 11/03/2023 12:05 PM EDT Dianne Jacob UMBRELLA TIPPER HAND POINT OF CARE TE ST ORDERABLES Performing Organization Address City/State/[facility] Co de Phone Number [facility] [place] [address] * (ABNORMAL) Hemogram (11/03/2023 11:27 AM EDT) Pathologist [facility] White Blood Cell 9.3 4.0 - 9.5 x10(3)/mc L [facility] Red Blood Cell 5.08 4.00 - 5.21 x10(6)/mc L [facility] Hemoglobin 12.1 11.7 - 15.5 g/dL [facility] Hematocrit 38.4 35.7 - 45.8 % [facility] Mean Cell Volume 75.6(L) 82.6 - 94.4 fL [facility] Mean Cell Hemoglobin 23.8(L) 27.1 - 32.0 pg [facility] Mean Cell Hemoglobin Concentration 31.5(L) 31.7 - 35.0 g/dL [facility] Platelet 620(H) 145 - 357 x10(3)/mc L [facility] RDW Standard Deviation 43.8 37.0 - 46.0 fL [facility] RDW coefficient of variation 16.3(H) 11.5 - 14.1 % [facility] Mean Platelet Volume 9.8 7.6 - 12.9 fL [facility] NRBC% auto 0.0 % [facility] NRBC Absolute 0.000 0.000 - 0.000 x10(3)/ L [facility] Blood 11/03/2023 11:2 7 AM EDT 11/03/2023 11:57 AM EDT Narrative Resulting Agency Comment Spec In Lab Dianne Skaggs Dandrefermin ALESSANDRO HEMATOLOGY ORDER SYDNEY [facility] [place] [address] * (ABNORMAL) Differential, Automated (11/03/2023 11:27 AM EDT) Neutrophil % 68.6 % [facility] Neutrophil Absolute 6.40(H) 1.70 - 6.10 x10(3)/ L [facility] Lymph % 15.8 % [facility] Lymphocytes Abs 1.5 0.9 - 3.2 x10(3)/ L [facility] Monocyte % 8.5 % [facility] Monocyte Abs 0.8 0.3 - 0.9 x10(3)/[facility] Eos % 5.8 % [facility] Eosinophils Abs 0.5(H) 0.0 - 0.4 x10(3)/[facility] Basophil % 0.6 % [facility] Baso Absolute 0.1 0.0 - 0.1 x10(3)/ L [facility] Immature Gran % 0.70 % [facility] Comment: Immature granulocytes(IG's)percentage and absolute count will include metamyelocytes, myelocytes, and promyelocytes. Blood smears from CBCs yielding IG's will be scanned manually for concordance. If this scan disagrees with the automated IG or if promyelocytes are noted, a manual differential will be performed. Immature Gran Absolute 0.07(H) 0.00 - 0.04 x10(3)/ L [facility] Blood 11/03/2023 11:2 7 AM EDT 11/03/2023 11:57 AM EDT Narrative Resulting Agency Comment Spec In Lab Dianne Jacob UMBRELLA TIPPER HAND HEMATOLOGY ORDER SYDNEY [facility] [place] [address] * (ABNORMAL) Comprehensive metabolic panel (non-fasting) (11/03/2023 11:27 AM EDT) Glucose 99 65 - 199 mg/dL [facility] Comment:Diabetes: >=200 mg/d L plus symptoms Blood Urea Nitrogen 25(H) 8 - 18 mg/dL [facility] Creatinine 2.03(H) 0.70 - 1.20 mg/dL [facility] Sodium 139 135 - 145 mmol/L [facility] Potassium 5.0 3.5 - 5.0 mmol/L [facility] Comment: Please note: ??Patients with WBC >100,000 may have falsely elevated Potassium levels. ??For accurate Potassium quantification in these patients send serum separator tube (gold top) for subsequent determinations. ??Contact the Clinical Chemistry Laboratory if there are any questions. Chloride 109(H) 98 - 107 mmol/L [facility] Carbon Dioxide 20(L) 22 - 31 mmol/L [facility] Anion Gap 10 5 - 15 mmol/L [facility] Calcium 9.4 8.5 - 10.5 mg/dL [facility] Protein, Total 8.2(H) 6.1 - 8.0 g/dL [facility] Albumin 4.0 3.2 - 5.2 g/dL [facility] Aspartate Aminotransferase 10 0 - 30 unit/L [facility] Alanine Aminotransferase 7 0 - 30 unit/L [facility] Alkaline Phosphatase 108(H) 35 - 105 unit/L [facility] Bilirubin, Total 0.8 0.2 - 1.3 mg/dL [facility] Est Glomerular Filtration Rate 26(L) >=60 mL/min/1. 73 m?? [facility] Comment: This patient's estimated GFR [...] Lab Dianne Jacob APRN CHEMISTRY ORDERA BLES [facility] [place] [address] * IR Nephrostomy Tube Exchange Left (10/03/2023 [...] Documents on File Type Date Recorded Patient Radiation Control Worker Expl anation Advance Directives and Living Will [...] PRE Arrest Intubation Permitted? No Care Teams Aviation Mechanic Relationship Specialty Start Date End Date Tavia Ramirez APRN [address] [place] [address] PCP - General Family Medicine 06/11/22
--- OUTSIDE RECORDS SUMMARY | 2023-12-08 03:31 | XMS_ITS ---
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 Past Plans ADULT TREATMENT Plan Name Start Date Discontinue Date Treatment Medications Discontinue Reason Plan Provider Cycles [facility] ONC -BLADDER CANCER - PEMBROLIZUMAB 04/18/20 21 05/13/2023 pembrolizumab (Keytruda) in sodium chloride 0.9% 100 mL infusion Therapy Complete Jose Lange MD 34 of 36 cycles started Radiation Treatments * No radiation treatments are documented for this patient in [facility]. Treatments may have been administered in another system. Lifetime Dose Tracking * Chemical Lifetime Dose Automatic Entry Manual Entr y DLP (Dose Length Product) 464 mGy-cm 464 mGy-cm 0 mGy-cm CTDI (CT Dose Index) Min 9.18 mGy 9.18 mGy 0 m Gy CTDI (CT Dose Index) Max 9.18 mGy 9.18 mGy 0 m Gy
--- OUTSIDE RECORDS SUMMARY | 2023-12-08 03:31 | XMS_ITS | Encounter Summary ---
Author Organization [facility] Address [facility] [place] [address] Care Team Providers Care Ecologist Name Role Phone Tavia Ramirez APRN Primary Care Provider [phone] Encounter Details Date Type Department Care Team (Late st Contact Info) Description 11/17/2023 Telephone Hematology/Oncology at [address] [phone] Dianne Jacob APRN [address] [place] [address] HEMATOLOGY AND ONCOLOGY [place], [place] [id number] Social History Tobacco Use Types Packs/Day Years Used Date Smoking Tobacco: Former Cigarettes Q uit: 07/04/2014 Smokeless Tobacco: Never Alcohol Use Standard Drinks/Week Comments Not Currently 0 (1 standard drink = 0.6 oz pur e alcohol) [facility] Utilities Answer Date Recorded In the past 12 months has e [employer], gas, oil, or water [employer] threatened to shut off services in your [...] [place] Sent: 11/17/2023 9:04 AM EDT To: [facility] Hem Onc Nurse Barb called to ask that we send in a new rx for her adagrasib (Krazati). Dr. Mckay has increased [id number] and she will be running out in a couple of days. documented in this encounter Plan of Treatment Upcoming Encounters Date Type Department Care Team (Late st Contact Info) Description 12/08/2023 3:30 PM EDT Office Visit Hematology/Oncology at [address] [phone] Chase Mckay MD [facility] [place] [address] documented as of this encounter Visit Diagnoses Diagnosis 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 Malignant neoplasm of lower lobe, bronchus, or lung 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 Malignant neoplasm of lower lobe, bronchus, or lung Metastatic urothelial carcinoma 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
--- OUTSIDE RECORDS SUMMARY | 2023-12-08 03:31 | XMS_ITS | Encounter Summary ---
Author Organization [facility] Address [facility] [place] [address] Care Team Providers Care Weft Straightener Name Role Phone James Tavia Foster APRN Primary Care Provider [phone] Encounter Details Date Type Department Care Team (Latest Contact Info) Description 11/13/2023 Travel Social History Tobacco Use Types Packs/Day Years Used Date Smoking Tobacco: Former Cigarettes Q uit: 07/04/2014 Smokeless Tobacco: Never Alcohol Use Standard Drinks/Week Comments Not Currently 0 (1 standard drink = 0.6 oz pur e alcohol) [facility] Utilities Answer Date Recorded In [...] PM EDT Office Visit Hematology/Oncology at [address] [address] Chase Mckay MD [facility] DR HEMATOLOGY [place] [address] documented as of this encounter Visit Diagnoses Not on filedocumented in this encounter Care Teams Weft Straightener Relationship Specialty Start Date End Date Tavia Ramirez [place] [address] [place] [address] PCP - General Family Medicine 06/11/22 documented as of this encounter"
--- OUTSIDE RECORDS SUMMARY | 2023-12-08 03:31 | XMS_ITS | Encounter Summary ---
Author Organization [facility] Address [facility] [place] [address] Care Team Providers Care Lottery Clerk Name Role Phone Tavia Ramirez APRN Primary Care Provider [phone] Reason for Visit * Reason Onset Date Comments Medication Problem 11/18/2023 Encounter Details Date Type Department Care Team (Late st Contact Info) Description 11/18/2023 Telephone Hematology/Oncology at [address] [phone] Marci Chen RN Medication Problem Social History Tobacco Use Types Packs/Day Years Used Date Smoking Tobacco: Former Cigarettes Q uit: 07/04/2014 Smokeless Tobacco: Never Alcohol Use Standard Drinks/Week Comments Not Currently 0 (1 standard drink = 0.6 oz pur e alcohol) [facility] Utilities Answer Date Recorded In [...] PM EDT Office Visit Hematology/Oncology at [address] [phone] Chase Mckay MD [facility] DR [place] [address] documented as of this encounter Visit Diagnoses Not on filedocumented in this encounter Care Teams Lottery Clerk Relationship Specialty Start Date End Date Tavia Ramirez, [place] [address] PCP - General Family Medicine 06/11/22 documented as of this encounter
--- OUTSIDE RECORDS SUMMARY | 2023-12-08 03:31 | XMS_ITS | Continuity of Care Document ---
Author Organization [place] - [facility], [facility] Address [address] [place] [address] [address] [place] [address] Assessment No assessment recorded. Plan of Treatment Reminders Order Date Submit Date Provider Last Modified By Organization Details Last Modified Time Details Appointments None recorded. Lab influenza virus A + B + SARS-CoV-2 (COVID19) Ag panel, rapid [place], upper respiratory specimen [address], [address] [place] [address], [address], [place], [address], 4 12:22:28 rapid strep group A, throat [address], [address] [place] [address], [address], [place], [address], 4 12:19:34 Referral None recorded. Procedures None recorded. Surgeries None recorded. Imaging XR, chest, 2 view - cough, lung CA patient 2023 024 [facility], [address], [place], [address], 4 15:19:45 Medication Orders Augmentin 875 mg-125 mg tablet 2023 024 [facility], [address], [place], [address], 4 13:52:51 azithromyci n 250 mg tablet 2023 024 [facility], [address] , [place], [address], 13:52:51 Patient TargetsNo targets recorded. Patient InstructionsNo instructions recorded. Reason for Referral None Reported. Results Created Date Observation Date Name Description Value Unit Range Abnormal Flag LastModifiedBy Organization Detail LastModifiedTime 10/15/19 24 10/15/2023 rapid strep group A, throa t Strep negati ve Not Available [address] [place] [address], [phone], 10/15/2023 11:57:54 10/15/19 24 10/15/2023 influ danielle virus A + B + SARS- CoV-2 (COVI D19) Ag panel , rapid IA, upper respi rator y speci men Influenza A negati ve Not Available [address] [place] [address], [phone], 10/15/2023 11:57:46 10/15/19 24 10/15/2023 influ danielle virus A + B + SARS- CoV-2 (COVI D19) Ag panel , rapid IA, upper respi rator y speci men Influenza B negati ve Not Available [address] [place] [address], [phone], 10/15/2023 11:57:46 10/15/19 24 10/15/2023 influ danielle virus A + B + SARS- CoV-2 (COVI D19) Ag panel , rapid IA, upper respi rator y speci men SARS-COV-2 negati ve Not Available [address] [place] [address], [phone], 10/15/2023 11:57:46 10/15/19 24 10/15/2023 XR, chest , 2 view ABNORM AL FINDIN G PROCED URE INFORM ATION: Exam: XR Chest Exam date and time: 6/19/2 024 12:59 PM Age: 73 years old [...] thicke amelie. 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 Heart/ Medias [...] lung diseas e. Report signed by: Flo moreria On 2023 15:18: [address], [place], [address], 10/15/2023 15:30:01 Result Notes None recorded. Problems Name Status Onset Date Resolution Date Notes Provider Name and Address Organization Details Recorded Time Acute kidney injury Completed 202011/30/[address], [place], [address] , [facility] 4 00:02:19 Malignant neoplasm of urinary organ Active 2020 metastatic bladder cancer diagnosed in 2020 with renal failure status post bilateral nephrostomy tubes present. [address], [place], [address] , [facility] 4 13:41:31 Abdominal pain Completed 202209/14/2022 Problem Code: R10.9; Problem Code Type: ICD-10; Not Available [facility] 05:59:25 Counseling Completed 202209/14/2022 08/15/2022 - Comments only - Tavia Ramirez SENIOR POLICY ASSOCIATE - now established on my panel. will follow up as needed. has multiple specialists following her and want to decrease need for further health appointments unless necessary for her to come in. Problem Code: Z71.89; Problem Code Type: ICD-10; Not Available [facility] 3 05:59:25 Pneumonia Completed 202106/10/2022 Problem Code: J18.9; Problem Code Type: ICD-10; Not Available [facility] 05:59:25 Total nephrectomy Completed 202201/22/2023 Problem Code: Z90.5; Problem Code Type: ICD-10; Not Available [facility] 3 05:59:25 Malignant neoplasm of urinary bladder Completed 202006/10/2022 Problem Code: C67.9; Problem Code Type: ICD-10; Not Available [facility] 3 05:59:26 Blood in urine Completed 202208/15/2022 Problem Code: R31.9; Problem Code Type: ICD-10; Not Available [facility] 3 05:59:26 Disorder of lung Completed 202001/22/2023 Problem Code: J98.4; Problem Code Type: ICD-10; Not Available [facility] 3 05:59:26 Leukocytosis Active [address], [place], [address] , [facility] 4 13:26:05 Pyelonephriti s Completed 202311/30/[address], [place], [address] , [facility] 4 00:02:04 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 Started on pembrolizumab in March 2021. [address], [place], [address] , [facility] 4 13:41:59 Acute urinary tract infection Completed 202311/30/[address], [place], [address] , [facility] 4 00:02:35 Abnormal urine odor Active [address], [place], [address] , [facility] 4 00:02:23 Nephrostomy Active [address], [place], [address] , [facility] 4 00:03:13 Notes:*Problem Name: Primary adenocarcinoma of lung, stage 3 left *Problem Status: active *Comments: *Problem Code: C34.90 *Problem Code Type: ICD-10 *Note Date: 03/02/2021 Problem Notes None recorded. Procedures Surgical History None recorded. Imaging Results Imaging Date Name Status LastModified by Organiz ation Details LastModified Time 10/15/2023 XR, chest, 2 view completed [email or web address] [address] [address], [place], [address], 10/15/2023 15:30:01 Procedure Notes None recorded. Medical [...] DAY NEEDED FOR PAIN active HELD BY [facility], GIVEN DILAUDID PO if [...] Not Available Tegaderm Transpare nt Dressing 2 8 X 2 3/ 1628 10 packs per month z90.5 2022 [...] Not Available pembroliz umab 07/07 completed Per [facility] Not Available Not Available Not Available Keytruda 25 mg/mL intraveno us solution Infuse every 3 weeks through [facility] up here 07/07 completed Not Available Not [...] Updated DateTime 4 165.1 cm 25.6 kg/m2 22997.2 2 g 98.6 [degF] 96 % 96 % 95 /min 120 mm[Hg] 66 mm[Hg] CONRAD Noriega MA [facility] 4 11:56:52 Social History Question Answer Notes LastModified by Organizat ion Details LastModified Time Tobacco Smoking Status Former Smoker Quit 2014 RUSS SANCHEZ RN [facility], [facility] 07/21/2023 12:51:45 When Did You Quit Smoking? 6-10yearssi [email or web address] Information not available 07/21/2023 What Was The Date Of Your Most Recent Tobacco Screening? 11/21/2023 Information not available 11/21/2023 At What Age Did You Start Smoking Tobacco? 18 Information not available 07/21/2023 How Much Tobacco Do You Smoke? No Information not available 07/21/2023 Has Tobacco Cessation Counseling Been Provided? No [email or web address] Information not available 07/08/2023 Do You Or Have You Ever Used Any Other Forms Of Tobacco Or Nicotine? No [email or web address] Information not available 07/08/2023 Sex: Female Functional [...] 50 mcg/0.25mL dose 03/02/2021 completed [facility] 03/07/2023 06:13:54 Past Encounters Encounter ID Performer Location Encounter Start Date Encounter Closed Date Diagnosis/Indication Diagnosis SNOMED-CT Code [id number] TAVIA MAGUIRE PA-C [facility] [address] [address] 10/15/2023 11:37:25 10/15/2023 12:19:17 Cough [id number] Health Concerns Section Related Observation LastModified by Organization Detai ls LastModified Time None Recorded Concern Status LastModified by Organization Details LastModified Time None Recorded Payers Encounter Date Sequence Insurance Name Policy Number Policy Issa Covered Member ID Issa Member ID Guarantor Name 10/15/2023 1 [place] [employer] Barb Bullard [id number] 1 Barb Bullard Notes Date Note Type [...] headache or sinus pain. TAVIA MAGUIRE PA-C [facility] [address], [place], [address], [facility]. 10/15/2023 13:53:14 OBGyn Episode No OBEpisode recorded.
--- OUTSIDE RECORDS SUMMARY | 2023-12-08 03:31 | XMS_ITS | Encounter Summary ---
Author Organization [facility] Address [address] [place] [address] Care Team Providers Care Professor Of Historical Theology Name Role Phone Unavailable Primary Care Provider Unavailabl e Encounter Details Date Type Department Care Team (Late st Contact Info) Description 12/30/2003 Results Only [facility] [address] [place] [address] Meeta Garcia PA [address] [place], [place] [id number] Social History Tobacco Use Types Packs/Day Years [...] ? BARB BULLARD ? Accession #: ? [id number] : ? 1950 (Age: 53) ??F ?Collect [...] Meeta RANGEL PATHOLOGY ORDERABLES FABIOLA GAO [address] [place] [address] documented in this encounter Visit Diagnoses Not on filedocumented in this encounter
--- OUTSIDE RECORDS SUMMARY | 2023-12-08 03:31 | XMS_ITS | Encounter Summary ---
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 02/23/2021 15:27 EDT [facility] Final Diagnosis A. URINARY BLADDER, BIOPSY: - Invasive carcinoma, favor urothelial carcinoma, high-grade, with necrosis. See comment. - Tumor invades at least subepithelial lamina propria. - No muscularis propria identified. 02/23/2021 15:27 [facility] Diagnosis Comment Immunohistochemical study was performed on (A1) to characterize the invasive tumor, and the tumor cells show positive immunoreactivity to GATA3, suggesting urothelial differentiation. IMMUNOHISTOCHEMISTRY: ANTIBODY(CLONE)(BLOCK ):RESULT GATA3 ([id number], [place]) (A1): positive NOTE: One or more of [...] performance characteristics have been determined by [facility] and/or by the referring laboratory. The positive [...] high complexity clinical laboratory testing. 02/23/2021 15:27 [facility] Attestation By the signature below, the attending physician certifies that they have 1) personally conducted a gross and/or microscopic examination of the described specimen(s), and/or personally interpreted the results of laboratory testing of the described specimen(s), and 2) personally rendered or confirmed the above diagnosis. 02/23/2021 15:27 [facility] at 1527 Synoptic URINARY BLADDER: [...] Additional Pathologic Findings: ?necrosis 02/23/2021 15:27 EDT [facility] Clinical History Hydronephrosis; nodular mass in bladder, not typical papillary lesion; clinical diagnosis code: N19, N39.0 N32.89, A41.9, N13.9, N17.9, D62, D75.839, E53.8, Z29.9, N13.30 02/23/2021 15:27 EDT [facility] Gross Description A. Received in formalin labelled with proper patient identification (initials Y, J) and bladder Bx are nine white focally red brown speckled irregular soft tissues (0.4 x 0.4 x 0.1 cm to 0.2 x 0.1 x 0.1 cm). Entirely submitted in A1-A3. Parish Lara 02/20/2021 10:12 02/23/2021 15:27 EDT [facility] Performing Lab [facility] 02/23/2021 15:27 T [facility] Scanned Images 02/23/2021 15:27 T [facility] Tissue URINARY BLADDER BIOPSY SPECIMEN / Unknown 02/19/2021 15:30 EDT 02/20/2021 8:43 EDT Leandro Arzate MD PATHOLOGY ORDERAB LES [facility] [address] [place] [address] documented in this encounter Visit Diagnoses Diagnosis Unspecified hydronephrosis documented in this encounter Care Teams 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
--- OUTSIDE RECORDS SUMMARY | 2023-12-08 03:31 | XMS_ITS | Data Portability ---
Author Organization [place] [facility], [facility] Address [address] [place] [address] Assessment No assessment recorded. Plan of Treatment Reminders Order Date Submit Date Provider Last Modified By Organization Details Last Modified Time Details Appointments None recorded. Lab urinalysis , dipstick 2023 024 [facility], [address] [place] [address], [address], [place], [address], 4 10:10:43 culture, urine + sensitivit y 2023 024 [email or web address] Not available 4 12:08:19 CBC w/ auto diff 2023 024 [facility] ([facility]), [address] [place] [address] [place], [address], 4 14:19:36 CMP, serum or plasma 2023 024 [facility] (Registration ), [address] [place] [address] [place], [address], 4 15:47:53 urinalysis , dipstick 2023 024 [email or web address] [facility], [address] [place], [address], 4 14:50:37 culture, urine + sensitivit y - collected from nephrostom y tubes 2023 024 [facility] (Registration ), [address] [place] [address] , [place], [address], 4 07:26:00 influenza virus A + B + SARS-CoV-2 (COVID19) Ag panel, rapid IA, upper respirator y specimen 2023 [email or web address], [address], [place], [address], 4 12:22:28 rapid strep group A, throat 2023 024 [email or web address] [facility], [address] [place] [address], [address], [place], [address], 4 12:19:34 urinalysis , dipstick 2023 024 [email or web address] [facility], [address], [place], [address], 4 14:43:02 culture, urine + sensitivit y - RIGHT nephrostom y tube [address] Laboratory (Registration ), [address] [place] [address] [place], [address], 4 16:13:43 urinalysis , dipstick 2023 024 [email or web address] [facility], [address], [place], [address], 4 14:43:02 culture, urine + sensitivit y - LEFT nephrostom y tube [address] Laboratory (Registration ), [address] [place] [address] [place], [address], 4 16:13:43 Referral None recorded. Procedures None recorded. Surgeries None recorded. Imaging XR, chest, 2 view - cough, lung CA patient 2023 [facility], [address] , [place], [address], 4 15:19:45 Medication Orders Macrobid 100 mg capsule 2023 [place] [facility], [address], [place], [address], 4 17:09:04 Augmentin 875 mg-125 mg tablet 2023 024 [place] [employer] [facility], [address], [place], [address], 4 13:52:51 azithromyc in 250 mg tablet 2023 024 [place] [facility], [address] [facility], [place], [address], 13:52:51 Patient TargetsNo targets recorded. Patient Instructions Encounter Date Encounter Id Patient Instructions Last Modified By Organization Details Last Modified Time 07/08/2023 [id number] pt on chemo with bladder cancer, U/A c/w uti, culture sent, checked with oncology PA chose macrobid for treatment , advised to go to ER for worsening, follow up with oncology [email or web address] Not available 07/08/2023 10:12:33 07/21/2023 [id number] nice to see you today! I will call you with lab results glad you are doing better exam today is reassuring blood cultures negative from [facility] [email or web address] Not available 07/21/2023 13:19:21 08/22/2023 [id number] Nice to see you today Barb! Glad [...] use in future Not available 08/22/2023 14:23:11 11/21/2023 [id number] nice to see you today Barb! let's be sure this isn't an infection with either nephrostomy tube due to recent flank pain and the urine odor may just be dehydration but we will be careful [email or web address] Not available 11/21/2023 13:55:59 Reason for Referral None Reported. Results Created Date Observation Date Name Description Value Unit Range Abnormal Flag LastModifiedBy Organization Detail LastModifiedTime 06/09/19 24 06/09/2023 COMPL ETE BLOOD COUNT W/DIF F WBC 11.48 10_3/ uL 4.4-10 .8 high Not Available [address] [place] [place], [address] 06/09/2023 12:38:48 06/09/19 24 06/09/2023 COMPL ETE BLOOD COUNT W/DIF F RBC 4.21 10_6/ uL 3.93-5 .22 normal Not Available [address] [place] [place], [address] 06/09/2023 12:38:48 06/09/19 24 06/09/2023 COMPL ETE BLOOD COUNT W/DIF F HGB 10.3 g/dL 11.2-1 5.7 low Not Available [address] [place] [place], [address] 06/09/2023 12:38:48 06/09/1906/09/2023 COMPL ETE BLOOD COUNT W/DIF F HCT 33.4 % 36.0-4 6.0 low Not Available [address] [place] [place], [address] 06/09/2023 12:38:48 06/09/19 24 06/09/2023 COMPL ETE BLOOD COUNT W/DIF F MCV 79 fL 80-95 low Not Available [address] [place], [address] 06/09/2023 12:38:48 06/09/19 24 06/09/2023 COMPL ETE BLOOD COUNT W/DIF F MCH 24.5 pg 27.0-3 3.0 low Not Available [address] [place], [address] 06/09/2023 12:38:48 06/09/19 24 06/09/2023 COMPL ETE BLOOD COUNT W/DIF F MCHC 30.8 % 32.0-3 6.0 low Not Available [address] [place], [address] 06/09/2023 12:38:48 06/09/19 24 06/09/2023 COMPL ETE BLOOD COUNT W/DIF F RDW 17.4 % 11.7-1 4.6 high Not Available [address] [place], [address] 06/09/2023 12:38:48 06/09/19 24 06/09/2023 COMPL ETE BLOOD COUNT W/DIF F platelet count 409 10_3/ uL 130-40 0 high Not Available [address] [place], [address] 06/09/2023 12:38:48 06/09/19 24 06/09/2023 COMPL ETE BLOOD COUNT W/DIF F MPV 8.4 fL 8.0-11 .0 normal Not Available [address] [place], [address] 06/09/2023 12:38:48 06/09/19 24 06/09/2023 COMPL ETE BLOOD COUNT W/DIF F neutrophils % 69.3 Not Available [address] [place], [address] 06/09/2023 12:38:48 06/09/19 24 06/09/2023 COMPL ETE BLOOD COUNT W/DIF F lymphocytes % 17.4 Not Available [address] [place], [address] 06/09/2023 12:38:48 06/09/19 24 06/09/2023 COMPL ETE BLOOD COUNT W/DIF F monocytes % 7.6 Not Available Stefania lloyd [address] [place], [address] 06/09/2023 12:38:48 06/09/19 24 06/09/2023 COMPL ETE BLOOD COUNT W/DIF F eosinophils % 4.0 Not Available [address] [place], [address] 06/09/2023 12:38:48 06/09/19 24 06/09/2023 COMPL ETE BLOOD COUNT W/DIF F basophils % 0.4 Not Available Stefania gonzálesjeannie [address] [place], [address] 06/09/2023 12:38:48 06/09/19 24 06/09/2023 COMPL ETE BLOOD COUNT W/DIF F immature grans % 1.3 Not Available [address] [place], [address] 06/09/2023 12:38:48 06/09/19 24 06/09/2023 COMPL ETE BLOOD COUNT W/DIF F nucleated RBC 0.0 % 0.0-0. 3 normal Not Available [address] [place], [address] 06/09/2023 12:38:48 06/09/19 24 06/09/2023 COMPL ETE BLOOD COUNT W/DIF F absolute neutrophil count 7.96 10_3/ uL 1.2-6. 7 high Not Available [address] [place], [address] 06/09/2023 12:38:48 06/09/19 24 06/09/2023 COMPL ETE BLOOD COUNT W/DIF F absolute lymphocyte count 2.00 10_3/ uL 1.2-3. 4 normal Not Available [address] [place] [place], [address] 06/09/2023 12:38:48 06/09/19 24 06/09/2023 COMPL ETE BLOOD COUNT W/DIF F absolute monocyte count 0.87 10_3/ uL 0.1-0. 8 high Not Available [address] [place], [address] 06/09/2023 12:38:48 06/09/19 24 06/09/2023 COMPL ETE BLOOD COUNT W/DIF F absolute eosinophil count 0.46 10_3/ uL 0.0-0. 7 normal Not Available [address] [place], [address] 06/09/2023 12:38:48 06/09/19 24 06/09/2023 COMPL ETE BLOOD COUNT W/DIF F absolute basophil count 0.05 10_3/ uL 0.0-0. 2 normal Not Available [address] [place] [place], [address] 06/09/2023 12:38:48 06/09/19 24 06/09/2023 COMPR EHENS BEN METAB OLIC PANEL calcium 8.7 mg/dL 8.5-10 .1 normal Not Available [address] [place] [place], [address] 06/09/2023 12:54:50 06/09/19 24 06/09/2023 COMPR EHENS BEN METAB OLIC PANEL glucose 98 mg/dL 74-106 normal Not Available [address] [place], [address] 06/09/2023 12:54:50 06/09/19 24 06/09/2023 COMPR EHENS BEN METAB OLIC PANEL BUN 19 mg/dL 7-18 high Not Available [address] [place], [address] 06/09/2023 12:54:50 06/09/19 24 06/09/2023 COMPR EHENS BEN METAB OLIC PANEL creatinine 1.6 mg/dL 0.55-1 .02 high Not Available [address] [place] [place], [address] 06/09/2023 12:54:50 06/09/19 24 06/09/2023 COMPR EHENS BEN METAB OLIC PANEL estimated GFR 34.27 mL/min /1.73m 2 Not Available [address] [place], [address] 06/09/2023 12:54:50 06/09/19 24 06/09/2023 COMPR EHENS BEN METAB OLIC PANEL total protein 8.5 g/dL 6.4-8. 2 high Not Available [address] [place] [place], [address] 06/09/2023 12:54:50 06/09/19 24 06/09/2023 COMPR EHENS BEN METAB OLIC PANEL albumin 2.9 g/dL 3.4-5. 0 low Not Available [address] [place], [address] 06/09/2023 12:54:50 06/09/19 24 06/09/2023 COMPR EHENS BEN METAB OLIC PANEL bilirubin, total 0.7 mg/dL 0.2-1. 0 normal Not Available [address] [place], [address] 06/09/2023 12:54:50 06/09/19 24 06/09/2023 COMPR EHENS BEN METAB OLIC PANEL alk phos 169 U/L 46-116 high Not Available [address] [place], [address] 06/09/2023 12:54:50 06/09/19 24 06/09/2023 COMPR EHENS BEN METAB OLIC PANEL sodium 139 mmol/ L 136-14 5 normal Not Available [address] [place], [address] 06/09/2023 12:54:50 06/09/19 24 06/09/2023 COMPR EHENS BEN METAB OLIC PANEL potassium 4.4 mmol/ L 3.5-5. 1 normal Not Available [address] [place] [place], [address] 06/09/2023 12:54:50 06/09/19 24 06/09/2023 COMPR EHENS BEN METAB OLIC PANEL chloride 105 mmol/ L 98-107 normal Not Available [address] [place] [place], [address] 06/09/2023 12:54:50 06/09/19 24 06/09/2023 COMPR EHENS BEN METAB OLIC PANEL CO2 24.8 mmol/ L 21.0-3 2.0 normal Not Available [address] [place] [place], [address] 06/09/2023 12:54:50 06/09/19 24 06/09/2023 COMPR EHENS BEN METAB OLIC PANEL anion gap 9.2 mmol/ L 3-11 normal Not Available [address] [place] [place], [address] 06/09/2023 12:54:50 06/09/19 24 06/09/2023 COMPR EHENS BEN METAB OLIC PANEL AST 15 U/L 15-37 normal Not Available [address] [place], [address] 06/09/2023 12:54:50 06/09/19 24 06/09/2023 COMPR EHENS BEN METAB OLIC PANEL ALT 16 U/L 14-59 normal Not Available [address] [place], [address] 06/09/2023 12:54:50 06/09/19 24 06/09/2023 MAGNE SIUM magnesium 2.2 mg/dL 1.8-2. 4 normal Not Available [address] [place], [address] 06/09/2023 12:54:51 06/23/19 24 06/23/2023 COMPL ETE BLOOD COUNT W/DIF F WBC 6.63 10_3/ uL 4.4-10 .8 normal Not Available [address] [place] [place], [address] 06/23/2023 14:31:57 06/23/19 24 06/23/2023 COMPL ETE BLOOD COUNT W/DIF F RBC 4.47 10_6/ uL 3.93-5 .22 normal Not Available [address] [place] [place], [address] 06/23/2023 14:31:57 06/23/19 24 06/23/2023 COMPL ETE BLOOD COUNT W/DIF F HGB 11.2 g/dL 11.2-1 5.7 normal Not Available [address] [place] [place], [address] 06/23/2023 14:31:57 06/23/19 24 06/23/2023 COMPL ETE BLOOD COUNT W/DIF F HCT 35.8 % 36.0-4 6.0 low Not Available [address] [place], [address] 06/23/2023 14:31:57 06/23/19 24 06/23/2023 COMPL ETE BLOOD COUNT W/DIF F MCV 80 fL 80-95 normal Not Available [address] [place], [address] 06/23/2023 14:31:57 06/23/19 24 06/23/2023 COMPL ETE BLOOD COUNT W/DIF F MCH 25.1 pg 27.0-3 3.0 low Not Available [address] [place], [address] 06/23/2023 14:31:57 06/23/19 24 06/23/2023 COMPL ETE BLOOD COUNT W/DIF F MCHC 31.3 % 32.0-3 6.0 low Not Available [address] [place], [address] 06/23/2023 14:31:57 06/23/19 24 06/23/2023 COMPL ETE BLOOD COUNT W/DIF F RDW 16.7 % 11.7-1 4.6 high Not Available [address] [place], [address] 06/23/2023 14:31:57 06/23/19 24 06/23/2023 COMPL ETE BLOOD COUNT W/DIF F platelet count 531 10_3/ uL 130-40 0 high Not Available [address] [place], [address] 06/23/2023 14:31:57 06/23/19 24 06/23/2023 COMPL ETE BLOOD COUNT W/DIF F MPV 8.9 fL 8.0-11 .0 normal Not Available [address] [place], [address] 06/23/2023 14:31:57 06/23/19 24 06/23/2023 COMPL ETE BLOOD COUNT W/DIF F neutrophils % 42.1 Not Available [address] [place], [address] 06/23/2023 14:31:57 06/23/19 24 06/23/2023 COMPL ETE BLOOD COUNT W/DIF F lymphocytes % 34.5 Not Available [address] [place], [address] 06/23/2023 14:31:57 06/23/19 24 06/23/2023 COMPL ETE BLOOD COUNT W/DIF F monocytes % 14.8 Not Available [address] [place], [address] 06/23/2023 14:31:57 06/23/19 24 06/23/2023 COMPL ETE BLOOD COUNT W/DIF F eosinophils % 7.5 Not Available [address] [place], [address] 06/23/2023 14:31:57 06/23/19 24 06/23/2023 COMPL ETE BLOOD COUNT W/DIF F basophils % 0.8 Not Available [address] [place], [address] 06/23/2023 14:31:57 06/23/19 24 06/23/2023 COMPL ETE BLOOD COUNT W/DIF F immature grans % 0.3 Not Available [address] [place], [address] 06/23/2023 14:31:57 06/23/1906/23/2023 COMPL ETE BLOOD COUNT W/DIF F nucleated RBC 0.0 % 0.0-0. 3 normal Not Available [address] [place], [address] 06/23/2023 14:31:57 06/23/19 24 06/23/2023 COMPL ETE BLOOD COUNT W/DIF F absolute neutrophil count 2.79 10_3/ uL 1.2-6. 7 normal Not Available [address] [place], [address] 06/23/2023 14:31:57 06/23/1906/23/2023 COMPL ETE BLOOD COUNT W/DIF F absolute lymphocyte count 2.29 10_3/ uL 1.2-3. 4 normal Not Available [address] [place], [address] 06/23/2023 14:31:57 06/23/19 24 06/23/2023 COMPL ETE BLOOD COUNT W/DIF F absolute monocyte count 0.98 10_3/ uL 0.1-0. 8 high Not Available [address] [place], [address] 06/23/2023 14:31:57 06/23/19 24 06/23/2023 COMPL ETE BLOOD COUNT W/DIF F absolute eosinophil count 0.50 10_3/ uL 0.0-0. 7 normal Not Available [address] [place], [address] 06/23/2023 14:31:57 06/23/19 24 06/23/2023 COMPL ETE BLOOD COUNT W/DIF F absolute basophil count 0.05 10_3/ uL 0.0-0. 2 normal Not Available [address] [place], [address] 06/23/2023 14:31:57 06/23/19 24 06/23/2023 COMPR EHENS BEN METAB OLIC PANEL calcium 8.6 mg/dL 8.5-10 .1 normal Not Available [address] [place], [address] 06/23/2023 14:50:50 06/23/19 24 06/23/2023 COMPR EHENS BEN METAB OLIC PANEL glucose 99 mg/dL 74-106 normal Not Available [address] [place], [address] 06/23/2023 14:50:50 06/23/19 24 06/23/2023 COMPR EHENS BEN METAB OLIC PANEL BUN 19 mg/dL 7-18 high Not Available [address] [place], [address] 06/23/2023 14:50:50 06/23/19 24 06/23/2023 COMPR EHENS BEN METAB OLIC PANEL creatinine 1.5 mg/dL 0.55-1 .02 high Not Available [address] [place], [address] 06/23/2023 14:50:50 06/23/19 24 06/23/2023 COMPR EHENS BEN METAB OLIC PANEL estimated GFR 37.03 mL/min /1.73m 2 Not Available [address] [place] [place], [address] 06/23/2023 14:50:50 06/23/19 24 06/23/2023 COMPR EHENS BEN METAB OLIC PANEL total protein 8.6 g/dL 6.4-8. 2 high Not Available [address] [place] [place], [address] 06/23/2023 14:50:50 06/23/19 24 06/23/2023 COMPR EHENS BEN METAB OLIC PANEL albumin 3.2 g/dL 3.4-5. 0 low Not Available [address] [place], [address] 06/23/2023 14:50:50 06/23/19 24 06/23/2023 COMPR EHENS BEN METAB OLIC PANEL bilirubin, total 0.5 mg/dL 0.2-1. 0 normal Not Available [address] [place] [place], [address] 06/23/2023 14:50:50 06/23/19 24 06/23/2023 COMPR EHENS BEN METAB OLIC PANEL alk phos 126 U/L 46-116 high Not Available [address] [place], [address] 06/23/2023 14:50:50 06/23/19 24 06/23/2023 COMPR EHENS BEN METAB OLIC PANEL sodium 140 mmol/ L 136-14 5 normal Not Available [address] [place], [address] 06/23/2023 14:50:50 06/23/19 24 06/23/2023 COMPR EHENS BEN METAB OLIC PANEL potassium 4.4 mmol/ L 3.5-5. 1 normal Not Available [address] [place] [place], [address] 06/23/2023 14:50:50 06/23/19 24 06/23/2023 COMPR EHENS BEN METAB OLIC PANEL chloride 106 mmol/ L 98-107 normal Not Available [address] [place], [address] 06/23/2023 14:50:50 06/23/19 24 06/23/2023 COMPR EHENS BEN METAB OLIC PANEL CO2 23.8 mmol/ L 21.0-3 2.0 normal Not Available [address] [place], [address] 06/23/2023 14:50:50 06/23/19 24 06/23/2023 COMPR EHENS BEN METAB OLIC PANEL anion gap 10.2 mmol/ L 3-11 normal Not Available [address] [place], [address] 06/23/2023 14:50:50 06/23/19 24 06/23/2023 COMPR EHENS BEN METAB OLIC PANEL AST 19 U/L 15-37 normal Not Available [address] [place], [address] 06/23/2023 14:50:50 06/23/19 24 06/23/2023 COMPR EHENS BEN METAB OLIC PANEL ALT 19 U/L 14-59 normal Not Available [address] [place], [address] 06/23/2023 14:50:50 06/23/19 24 06/23/2023 MAGNE SIUM magnesium 2.3 mg/dL 1.8-2. 4 normal Not Available [address] [place], [address] 06/23/2023 14:50:50 06/23/19 24 06/23/2023 MAGNE SIUM magnesium 2.3 mg/dL 1.8-2. 4 normal Not Available [address] [place], [address] 06/23/2023 16:18:10 06/23/19 24 06/23/2023 TSH TSH 2.60 uIU/m L 0.36-3 .74 normal Not Available [address] [place], [address] 06/23/2023 16:18:11 06/23/19 24 06/23/2023 FREE T4 free T4 1.00 NG/dL 0.76-1 .46 normal Not Available [address], [place], [address] 06/23/2023 16:18:11 07/08/19 24 07/08/2023 urina lysis , dipst ick Leukocytes Modera te Not Available [address] [place] [address], [phone], 07/08/2023 09:56:24 07/08/19 24 07/08/2023 urina lysis , dipst ick Nitrite positi ve Not Available [address] [place] [address], [phone], 07/08/2023 09:56:24 07/08/19 24 07/08/2023 urina lysis , dipst ick Urobilinogen .2 Not Available Berna llamas [address] [place] [address], [phone], 07/08/2023 09:56:24 07/08/19 24 07/08/2023 urina lysis , dipst ick Protein 2000+ Not Available Hi phan [address] [place] [address], [phone], 07/08/2023 09:56:24 07/08/19 24 07/08/2023 urina lysis , dipst ick pH 8.5 Not Available Hi rn [address] [place] [address], [phone], 07/08/2023 09:56:24 07/08/19 24 07/08/2023 urina lysis , dipst ick Blood Small Not Available Hi rn [address] [place] [address], [phone], 07/08/2023 09:56:24 07/08/19 24 07/08/2023 urina lysis , dipst ick Specific [place] 1.000 Not Available [address] [place] [address], [phone], 07/08/2023 09:56:24 07/08/19 24 07/08/2023 urina lysis , dipst ick Ketone Negati ve Not Available [address], [place], [address], 07/08/2023 09:56:24 07/08/19 24 07/08/2023 urina lysis , dipst ick Bilirubin Negati ve Not Available [address], [place], [address], 07/08/2023 09:56:24 07/08/19 24 07/08/2023 urina lysis , dipst ick Glucose Negati ve Not Available [address] [facility], [place], [address], 07/08/2023 09:56:24 07/08/19 24 07/08/2023 urina lysis , dipst ick Appearance Cloudy Not Available [address] [facility], [place], [address], 07/08/2023 09:56:24 07/08/19 24 07/08/2023 urina lysis , dipst ick Color Dark Yellow Not Available [address] [place] [address], [phone], 07/08/2023 09:56:24 07/21/19 24 07/21/2023 COMPL ETE BLOOD COUNT W/DIF F WBC 8.47 10_3/ uL 4.4-10 .8 normal Not Available [address] [place], [address] 07/21/2023 14:19:36 07/21/19 24 07/21/2023 COMPL ETE BLOOD COUNT W/DIF F RBC 4.65 10_6/ uL 3.93-5 .22 normal Not Available [address] [place], [address] 07/21/2023 14:19:36 07/21/19 24 07/21/2023 COMPL ETE BLOOD COUNT W/DIF F HGB 11.5 g/dL 11.2-1 5.7 normal Not Available [address] [place], [address] 07/21/2023 14:19:36 07/21/19 24 07/21/2023 COMPL ETE BLOOD COUNT W/DIF F HCT 37.6 % 36.0-4 6.0 normal Not Available [address] [place], [address] 07/21/2023 14:19:36 07/21/19 24 07/21/2023 COMPL ETE BLOOD COUNT W/DIF F MCV 81 fL 80-95 normal Not Available [address] [place], [address] 07/21/2023 14:19:36 07/21/19 24 07/21/2023 COMPL ETE BLOOD COUNT W/DIF F MCH 24.7 pg 27.0-3 3.0 low Not Available [address] [place], [address] 07/21/2023 14:19:36 07/21/19 24 07/21/2023 COMPL ETE BLOOD COUNT W/DIF F MCHC 30.6 % 32.0-3 6.0 low Not Available [address] [place], [address] 07/21/2023 14:19:36 07/21/19 24 07/21/2023 COMPL ETE BLOOD COUNT W/DIF F RDW 17.5 % 11.7-1 4.6 high Not Available [address] [place], [address] 07/21/2023 14:19:36 07/21/19 24 07/21/2023 COMPL ETE BLOOD COUNT W/DIF F platelet count 546 10_3/ uL 130-40 0 high Not Available [address] [place], [address] 07/21/2023 14:19:36 07/21/19 07/21/2023 COMPL ETE BLOOD COUNT W/DIF F MPV 9.5 fL 8.0-11 .0 normal Not Available [address] [place], [address] 07/21/2023 14:19:36 07/21/19 24 07/21/2023 COMPL ETE BLOOD COUNT W/DIF F neutrophils % 60.9 Not Available [address] [place], [address] 07/21/2023 14:19:36 07/21/19 24 07/21/2023 COMPL ETE BLOOD COUNT W/DIF F lymphocytes % 22.4 Not Available [address] [place], [address] 07/21/2023 14:19:36 07/21/19 24 07/21/2023 COMPL ETE BLOOD COUNT W/DIF F monocytes % 11.9 Not Available [address] [place], [address] 07/21/2023 14:19:36 07/21/19 24 07/21/2023 COMPL ETE BLOOD COUNT W/DIF F eosinophils % 3.7 Not Available [address] [place], [address] 07/21/2023 14:19:36 07/21/19 24 07/21/2023 COMPL ETE BLOOD COUNT W/DIF F basophils % 0.7 Not Available [address] [place], [address] 07/21/2023 14:19:36 07/21/19 24 07/21/2023 COMPL ETE BLOOD COUNT W/DIF F immature grans % 0.4 Not Available [address] [place], [address] 07/21/2023 14:19:36 07/21/1907/21/2023 COMPL ETE BLOOD COUNT W/DIF F nucleated RBC 0.0 % 0.0-0. 3 normal Not Available [address] [place], [address] 07/21/2023 14:19:36 07/21/1907/21/2023 COMPL ETE BLOOD COUNT W/DIF F absolute neutrophil count 5.16 10_3/ uL 1.2-6. 7 normal Not Available [address] [place], [address] 07/21/2023 14:19:36 07/21/19 24 07/21/2023 COMPL ETE BLOOD COUNT W/DIF F absolute lymphocyte count 1.90 10_3/ uL 1.2-3. 4 normal Not Available [address] [place], [address] 07/21/2023 14:19:36 07/21/19 24 07/21/2023 COMPL ETE BLOOD COUNT W/DIF F absolute monocyte count 1.01 10_3/ uL 0.1-0. 8 high Not Available [address] [place], [address] 07/21/2023 14:19:36 07/21/19 24 07/21/2023 COMPL ETE BLOOD COUNT W/DIF F absolute eosinophil count 0.31 10_3/ uL 0.0-0. 7 normal Not Available [address] [place], [address] 07/21/2023 14:19:36 07/21/19 24 07/21/2023 COMPL ETE BLOOD COUNT W/DIF F absolute basophil count 0.06 10_3/ uL 0.0-0. 2 normal Not Available [address] [place], [address] 07/21/2023 14:19:36 07/21/19 24 07/21/2023 COMPR EHENS BEN METAB OLIC PANEL calcium 8.3 mg/dL 8.5-10 .1 low Not Available [address] [place], [address] 07/21/2023 15:47:53 07/21/19 24 07/21/2023 COMPR EHENS BEN METAB OLIC PANEL glucose 104 mg/dL 74-106 normal Not Available [address] [place], [address] 07/21/2023 15:47:53 07/21/19 24 07/21/2023 COMPR EHENS BEN METAB OLIC PANEL BUN 30 mg/dL 7-18 high Not Available [address] [place], [address] 07/21/2023 15:47:53 07/21/19 24 07/21/2023 COMPR EHENS BEN METAB OLIC PANEL creatinine 1.8 mg/dL 0.55-1 .02 high Not Available [address] [place], [address] 07/21/2023 15:47:53 07/21/19 24 07/21/2023 COMPR EHENS BEN METAB OLIC PANEL estimated GFR 29.57 mL/min /1.73m 2 Not Available [address] [place] [place], [address] 07/21/2023 15:47:53 07/21/19 24 07/21/2023 COMPR EHENS BEN METAB OLIC PANEL total protein 8.4 g/dL 6.4-8. 2 high Not Available [address] [place] [place], [address] 07/21/2023 15:47:53 07/21/19 24 07/21/2023 COMPR EHENS BEN METAB OLIC PANEL albumin 3.2 g/dL 3.4-5. 0 low Not Available [address] [place] [place], [address] 07/21/2023 15:47:53 07/21/19 24 07/21/2023 COMPR EHENS BEN METAB OLIC PANEL bilirubin, total 0.7 mg/dL 0.2-1. 0 normal Not Available [address] [place] [place], [address] 07/21/2023 15:47:53 07/21/19 24 07/21/2023 COMPR EHENS BEN METAB OLIC PANEL alk phos 102 U/L 46-116 normal Not Available [address] [place], [address] 07/21/2023 15:47:53 07/21/19 24 07/21/2023 COMPR EHENS BEN METAB OLIC PANEL sodium 139 mmol/ L 136-14 5 normal Not Available [address] [place], [address] 07/21/2023 15:47:53 07/21/19 24 07/21/2023 COMPR EHENS BEN METAB OLIC PANEL potassium 4.3 mmol/ L 3.5-5. 1 normal Not Available [address] [place] [place], [address] 07/21/2023 15:47:53 07/21/19 24 07/21/2023 COMPR EHENS BEN METAB OLIC PANEL chloride 107 mmol/ L 98-107 normal Not Available [address] [place] [place], [address] 07/21/2023 15:47:53 07/21/19 24 07/21/2023 COMPR EHENS BEN METAB OLIC PANEL CO2 21.9 mmol/ L 21.0-3 2.0 normal Not Available [address] [place], [address] 07/21/2023 15:47:53 07/21/19 24 07/21/2023 COMPR EHENS BEN METAB OLIC PANEL anion gap 10.1 mmol/ L 3-11 normal Not Available [address] [place], [address] 07/21/2023 15:47:53 07/21/19 24 07/21/2023 COMPR EHENS BEN METAB OLIC PANEL AST 23 U/L 15-37 normal Not Available [address] [place], [address] 07/21/2023 15:47:53 07/21/19 24 07/21/2023 COMPR EHENS BEN METAB OLIC PANEL ALT 20 U/L 14-59 normal Not Available [address] [place], [address] 07/21/2023 15:47:53 07/21/19 24 07/21/2023 MAGNE SIUM magnesium 2.2 mg/dL 1.8-2. 4 normal Not Available [address] [place], [address] 07/21/2023 15:47:53 07/21/19 24 07/21/2023 TSH TSH 2.76 uIU/m L 0.36-3 .74 normal Not Available [place] [address] [facility] [place], [address] 07/21/2023 15:47:54 07/21/19 24 07/21/2023 FREE T4 free T4 0.80 NG/dL 0.76-1 .46 normal Not Available [address] [place], [address] 07/21/2023 15:47:54 08/22/19 24 08/24/2023 URINE CULTU RE urine culture Not Available [address] [place], [address] 08/24/2023 08:02:44 08/22/19 24 08/25/2023 URINE CULTU RE urine culture Not Available [address] [place], [address] 08/25/2023 08:22:11 08/22/19 24 08/22/2023 urina lysis , dipst ick Leukocytes Small Not Available [facility] [address], [place], [address], 08/22/2023 13:40:18 08/22/19 24 08/22/2023 urina lysis , dipst ick Nitrite negati ve Not Available [facility] [address], [place], [address], 08/22/2023 13:40:18 08/22/19 24 08/22/2023 urina lysis , dipst ick Urobilinogen .2 Not Available [facility] [address], [place], [address], 08/22/2023 13:40:18 08/22/19 24 08/22/2023 urina lysis , dipst ick Protein 2000+ Not Available [facility] [address], [place], [address], 08/22/2023 13:40:18 08/22/19 24 08/22/2023 urina lysis , dipst ick pH 5.0 Not Available [facility] [address], [place], [address], 08/22/2023 13:40:18 08/22/19 24 08/22/2023 urina lysis , dipst ick Blood Large Not Available [facility] [address], [place], [address], 08/22/2023 13:40:18 08/22/19 24 08/22/2023 urina lysis , dipst ick Specific [place] 1.025 Not Available [facility] [address], [place], [address], 08/22/2023 13:40:18 08/22/19 24 08/22/2023 urina lysis , dipst ick Ketone Negati ve Not Available [facility] [address], [place], [address], 08/22/2023 13:40:18 08/22/19 24 08/22/2023 urina lysis , dipst ick Bilirubin Negati ve Not Available [facility] [address], [place], [address], 08/22/2023 13:40:18 08/22/19 24 08/22/2023 urina lysis , dipst ick Glucose Negati ve Not Available [facility] [address], [place], [address], 08/22/2023 13:40:18 08/22/19 24 08/22/2023 urina lysis , dipst ick Appearance Cloudy Not Available [facility] [address], [place], [address], 08/22/2023 13:40:18 08/22/19 24 08/22/2023 urina lysis , dipst ick Color Dark Yellow Not Available [facility] [address], [place], [address], 08/22/2023 13:40:18 10/15/19 24 10/15/2023 rapid strep group A, throa t Strep negati ve Not Available [address] [place] [address], [address], 10/15/2023 11:57:54 10/15/19 24 10/15/2023 influ danielle virus A + B + SARS- CoV-2 (COVI D19) Ag panel , rapid IA, upper respi rator y speci men Influenza A negati ve Not Available [address] [place] [address], [address], 10/15/2023 11:57:46 10/15/19 24 10/15/2023 influ danielle virus A + B + SARS- CoV-2 (COVI D19) Ag panel , rapid IA, upper respi rator y speci men Influenza B negati ve Not Available [address] [place] [address], [address], 10/15/2023 11:57:46 10/15/19 24 10/15/2023 influ danielle virus A + B + SARS- CoV-2 (COVI D19) Ag panel , rapid IA, upper respi rator y speci men SARS-COV-2 negati ve Not Available [address] [place] [address], [address], 10/15/2023 11:57:46 11/21/19 24 11/21/2023 URINE CULTU RE urine culture Not Available [facility] [address] [facility] [place], [address] 11/22/2023 13:57:06 11/21/19 24 11/22/2023 URINE CULTU RE urine culture colon ies/m L Not Available [address] [place], [address] 11/22/2023 13:57:06 11/21/19 24 11/21/2023 URINE CULTU RE urine culture Not Available [address] [place], [address] 11/22/2023 14:01:07 11/21/19 24 11/22/2023 URINE CULTU RE urine culture colon ies/m L Not Available [address] [place], [address] 11/22/2023 14:01:07 11/21/19 24 11/21/2023 URINE CULTU RE urine culture Not Available [address] [place], [address] 11/23/2023 10:02:24 11/21/19 24 11/23/2023 URINE CULTU RE urine culture colon ies/m L Not Available [address] [place] [place], [address] 11/23/2023 10:02:24 11/21/19 24 11/21/2023 URINE CULTU RE urine culture Not Available [address] [place], [address] 11/23/2023 10:04:25 11/21/19 24 11/23/2023 URINE CULTU RE urine culture colon ies/m L Not Available [address] [place], [address] 11/23/2023 10:04:25 11/21/19 24 11/21/2023 urina lysis , dipst ick Leukocytes Large Not Available [facility] [address], [place], [address], 11/21/2023 14:33:18 11/21/19 24 11/21/2023 urina lysis , dipst ick Nitrite negati ve Not Available [facility] [address], [place], [address], 11/21/2023 14:33:18 11/21/19 24 11/21/2023 urina lysis , dipst ick Urobilinogen .2 Not Available [facility] [address], [place], [address], 11/21/2023 14:33:18 11/21/19 24 11/21/2023 urina lysis , dipst ick Protein 100 Not Available [facility] [address], [place], [address], 11/21/2023 14:33:18 11/21/19 24 11/21/2023 urina lysis , dipst ick pH 5.0 Not Available [facility] [address], [place], [address], 11/21/2023 14:33:18 11/21/19 24 11/21/2023 urina lysis , dipst ick Blood Large Not Available [facility] [address], [place], [address], 11/21/2023 14:33:18 11/21/19 24 11/21/2023 urina lysis , dipst ick Specific [place] 1.025 Not Available [facility] [address], [place], [address], 11/21/2023 14:33:18 11/21/19 24 11/21/2023 urina lysis , dipst ick Ketone Negati ve Not Available [facility] [address], [place], [address], 11/21/2023 14:33:18 11/21/19 24 11/21/2023 urina lysis , dipst ick Bilirubin Negati ve Not Available [facility] [address], [place], [address], 11/21/2023 14:33:18 11/21/19 24 11/21/2023 urina lysis , dipst ick Glucose Negati ve Not Available [facility] [address], [place], [address], 11/21/2023 14:33:18 11/21/19 24 11/21/2023 urina lysis , dipst ick Appearance Cloudy Not Available [facility] [address], [place], [address], 11/21/2023 14:33:18 11/21/19 24 11/21/2023 urina lysis , dipst ick Color Dark Yellow Not Available [facility] [address], [place], [address], 11/21/2023 14:33:18 11/21/19 24 11/21/2023 urina lysis , dipst ick Leukocytes Large Not Available [facility] [address], [place], [address], 11/21/2023 14:34:26 11/21/19 24 11/21/2023 urina lysis , dipst ick Nitrite negati ve Not Available [facility] [address], [place], [address], 11/21/2023 14:34:26 11/21/19 24 11/21/2023 urina lysis , dipst ick Urobilinogen .2 Not Available [facility] [address], [place], [address], 11/21/2023 14:34:26 11/21/19 24 11/21/2023 urina lysis , dipst ick Protein 300 Not Available [facility] [address], [place], [address], 11/21/2023 14:34:26 11/21/19 24 11/21/2023 urina lysis , dipst ick pH 5.0 Not Available [facility] [address], [place], [address], 11/21/2023 14:34:26 11/21/19 24 11/21/2023 urina lysis , dipst ick Blood Large Not Available [facility] [address], [place], [address], 11/21/2023 14:34:26 11/21/19 24 11/21/2023 urina lysis , dipst ick Specific [place] 1.015 Not Available [facility] [address], [place], [address], 11/21/2023 14:34:26 11/21/19 24 11/21/2023 urina lysis , dipst ick Ketone Negati ve Not Available [facility] [address], [place], [address], 11/21/2023 14:34:26 11/21/19 24 11/21/2023 urina lysis , dipst ick Bilirubin Negati ve Not Available [facility] [address], [place], [address], 11/21/2023 14:34:26 11/21/19 24 11/21/2023 urina lysis , dipst ick Glucose Negati ve Not Available [facility] [address], [place], [address], 11/21/2023 14:34:26 11/21/19 24 11/21/2023 urina lysis , dipst ick Appearance Cloudy Not Available [facility] [address], [place], [address], 11/21/2023 14:34:26 11/21/19 24 11/21/2023 urina lysis , dipst ick Color Dark Yellow Not Available [facility] [address], [place], [address], 11/21/2023 14:34:26 10/15/19 24 10/15/2023 XR, chest , 2 [...] thicke amelie. 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 Heart/ [...] by: Flo moreira On 2023 15:18: [email or web address] [facility] [address], [place], [address], 10/15/2023 15:30:01 Result Notes None recorded. Problems Name Status Onset Date Resolution Date Notes Provider Name and Address Organization Details Recorded Time Acute kidney injury Completed 202011/30/[address], [place], [address] , [facility] 00:02:19 Malignant neoplasm of urinary organ Active 2020 metastatic bladder cancer diagnosed in 2020 with renal failure status post bilateral nephrostomy tubes present. [address], [place], [address] , [facility] 13:41:31 Abdominal pain Completed 202209/14/2022 Problem Code: R10.9; Problem Code Type: ICD-10; Not Available [facility] 05:59:25 Counseling Completed 202209/14/2022 08/15/2022 - Comments only - Tavia Ramirez [employer] - now established on my panel. will follow up as needed. has multiple specialists following her and want to decrease need for further health appointments unless necessary for her to come in. Problem Code: Z71.89; Problem Code Type: ICD-10; Not Available [facility] 3 05:59:25 Pneumonia Completed 202106/10/2022 Problem Code: J18.9; Problem Code Type: ICD-10; Not Available [facility] 05:59:25 Total nephrectomy Completed 202201/22/2023 Problem Code: Z90.5; Problem Code Type: ICD-10; Not Available [facility] 3 05:59:25 Malignant neoplasm of urinary bladder Completed 202006/10/2022 Problem Code: C67.9; Problem Code Type: ICD-10; Not Available [facility] 3 05:59:26 Blood in urine Completed 202208/15/2022 Problem Code: R31.9; Problem Code Type: ICD-10; Not Available [facility] 3 05:59:26 Disorder of lung Completed 202001/22/2023 Problem Code: J98.4; Problem Code Type: ICD-10; Not Available [facility] 3 05:59:26 Leukocytosis Active [address], [place], [address] , [facility] 4 13:26:05 Pyelonephriti s Completed 202311/30/[address], [place], [address] , [facility] 4 00:02:04 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 Started on pembrolizumab in March 2021. [address], [place], [address] , [facility] 4 13:41:59 Acute urinary tract infection Completed 202311/30/[address], [place], [address] , [facility] 4 00:02:35 Abnormal urine odor Active [address], [place], [address] , [facility] 4 00:02:23 Nephrostomy Active [address], [facility] [address] , [facility] 4 00:03:13 Notes:*Problem Name: Primary adenocarcinoma of lung, stage 3 left *Problem Status: active *Comments: *Problem Code: C34.90 *Problem Code Type: ICD-10 *Note Date: 03/02/2021 Problem Notes None recorded. Procedures Surgical History None recorded. Imaging Results Imaging Date Name Status LastModified by Organiz ation Details LastModified Time 10/15/2023 XR, chest, [address] [facility] [address], [place], [address], 10/15/2023 15:30:01 Procedure Notes None recorded. Medical [...] DAY NEEDED FOR PAIN active HELD BY [facility], GIVEN DILAUDID PO if needed. hasn;t taken. [...] Not Available pembroliz umab 07/07 completed Per [facility] Not Available Not Available Not Available Keytruda 25 mg/mL intraveno us solution Infuse every 3 weeks [facility] here 07/07 completed Not Available [...] 4 165.1 cm 18 /min 26 kg/m2 25145.8 1 g 97.6 [degF] 96 % 96 % 100 /min 106 mm[Hg] 64 mm[Hg] Eneida Washburn MA [facility] 4 09:43:08 Date Recorded Body height Body mass index (BMI) Body weight Body temperature Heart rate Respiratory rate Systolic blood pressure Diastolic blood pressure Provider Name and Address Organization Details Last Updated DateTime 4 165.1 cm 25.9 kg/m2 76991.9 7 g 99.1 [degF] 86 /min 20 /min 108 mm[Hg] 66 mm[Hg] RUSS SANCHEZ RN [facility] 4 12:53:58 Date Recorded Body height Body mass index (BMI) Body weight Body temperature Heart rate Respiratory rate Systolic blood pressure Diastolic blood pressure Provider Name and Address Organization Details Last Updated DateTime 4 165.1 cm 25.6 kg/m2 44293.2 2 g 98.2 [degF] 84 /min 18 /min 114 mm[Hg] 62 mm[Hg] RUSS SANCHEZ RN [facility] 4 13:32:05 Date Recorded Body height Body mass index (BMI) Body weight Body temperature Oxygen saturation Oxygen saturation in Arterial blood by Pulse oximetry Heart rate Systolic blood pressure Diastolic blood pressure Provider Name and Address Organization Details Last Updated DateTime 4 165.1 cm 25.6 kg/m2 67817.2 2 g 98.6 [degF] 96 % 96 % 95 /min 120 mm[Hg] 66 mm[Hg] CONRAD Noriega MA [facility] 4 11:56:52 Date Recorded Body height Body mass index (BMI) Body weight Body temperature Respiratory rate Heart rate Systolic blood pressure Diastolic blood pressure Provider Name and Address Organization Details Last Updated DateTime 4 165.1 cm 25.1 kg/m2 14570.4 5 g 97.8 [degF] 16 /min 70 /min 102 mm[Hg] 64 mm[Hg] RUSS SANCHEZ RN [facility] 4 13:21:26 Social History Question Answer Notes LastModified by Organizat ion Details LastModified Time Tobacco Smoking Status Former Smoker Quit 2014 RUSS SANCHEZ RN [facility], [facility] 07/21/2023 12:51:45 When Did You Quit Smoking? 6-10yearssi [email or web address] rette Information not available 07/21/2023 What Was The Date Of Your Most Recent Tobacco Screening? 11/21/2023 Information not available 11/21/2023 At What Age Did You Start Smoking Tobacco? 18 Information not available 07/21/2023 How Much Tobacco Do You Smoke? No Information not available 07/21/2023 Has Tobacco Cessation Counseling Been Provided? No [email or web address] Information not available 07/08/2023 Do You Or Have You Ever Used Any Other Forms Of Tobacco Or Nicotine? No Information not available 07/08/2023 Sex: Female Functional [...] 50 mcg/0.25mL dose 03/02/2021 completed Not Available [facility] 03/07/2023 06:13:54 Past Encounters Encounter ID Performer Location Encounter Start Date Encounter Closed Date Diagnosis/Indication Diagnosis SNOMED-CT Code [id number] Can Brennan MD [address] [place] [address] 07/08/2023 09:21:32 07/08/2023 10:10:44 Acute urinary tract infection [id number] TAVIA RAMIREZ [address] [place] [address] 07/21/2023 12:38:14 07/21/2023 13:24:40 Leukocytosis 905019361 Pyelonephritis 36178788 Acute kidney injury 1466 9001 [id number] TAVIA RAMIRZE [facility] [address] [place] [address] 08/22/2023 13:12:54 08/22/2023 14:07:29 Acute urinary tract infection 344983118 Malignant neoplasm of urinary organ 717446135 Pyelonephritis 02800023 [id number] TAVIA MAGUIRE PA-C [facility] [address] [facility] [place] [address] 10/15/2023 11:37:25 10/15/2023 12:19:17 Cough [id number] TAVIA RAMIREZ [facility] [address] [place] [address] 11/21/2023 12:53:58 11/21/2023 14:03:58 Abnormal urine odor 0542915 Malignant neoplasm of urinary organ 719706043 Acute urin kenzie tract infection 564264875 Pyelonephritis 06225289 Health Concerns Section Related Observation LastModified by Organization Detai ls LastModified Time None Recorded Concern Status LastModified by Organization Details LastModified Time None Recorded Advance Directives Directive None Recorded Payers Encounter Date Sequence Insurance Name Policy Number Policy Issa Covered Member ID Issa Member ID Guarantor Name 07/08/2023 1 [place] [facility] Barb Bullard [id number] 1 Barb Bullard 07/21/2023 1 [place] [facility] Barb Bullard [id number] 1 Barb Bullard 08/22/2023 1 [place] [facility] Barb Bullard [id number] 1 Barb Bullard 10/15/2023 1 [place] [facility] Barb Bullard [id number] 1 Barb Bullard 11/21/2023 1 [place] [facility] Barb Bullard [id number] 1 Barb Bullard Notes Date Note Type Note Provider Name and Address Organization Details Recorded Time 07/08/2023 text/html HPI Notes: Pt wi th bilateral nephrostomies for bladder cancer on chemo with cloudy urine and mild back discomfort, no vomiting or fevers/chills. Can Brennan MD [address], [place], [address], [facility] 07/08/2023 10:21:42 07/21/2023 text/html HPI Notes: Barb is a pleasant 73-year-old female here today for hospital discharge follow-up. She was seen at [facility] emergency room on 07/09/2023 and discharged 07/10/2023. Presented initially with bilateral back pain at urgent care on 07/08/2023 and diagnosed with UTI based on urinalysis in office. Was started on Macrobid after interaction check with oncology for current treatment of metastatic bladder cancer and lung cancer through hematology oncology [facility]. unfortunately woke up on 07/09/2023 and her bilateral nephrostomy tubes were not draining. Mainly noticed the right 1 was clogged. History of obstructive renal failure in 2020 requiring bilateral percutaneous nephrostomy tubes. Throughout her workup she was then diagnosed with metastatic bladder cancer. Also was found to have left lower lobe lung mass. Pt discharged from [facility] 07/09 after bilateral nephrostomy tube replacements due to ?obstruction and pyleonephritis. admit date was 07/08/23 at [facility]. Was started on Bactrim and bilateral percutaneous nephrostomy tubes Replaced at [facility]. She was advised to follow-up with PCP office within 10-day period. Reports that she no longer has fever or chills. Back pain has improved. Urine is clear in bilateral nephrostomy tube bags. She is wondering what her blood cultures showed at [facility] she never got a call from them. Her last CBC at [facility] showed white cell count 12.1 as well as acute kidney injury with creatinine elevated at 1.85. Plan was to repeat labs today. She reports she is getting a blood draw for her oncologist anyway over [facility] if I could send the orders over there they could coordinate blood draw. [address], [place], [address], [facility]. 07/21/2023 13:43:25 08/22/2023 text/html HPI Notes: Barb is a pleasant 73-year-old female here today for a hospital discharge follow-up. Follow up [facility] admitted 08/06 - 08/09 - acute kidney injury/pyelonephrit is. Nephrostomy tubes clogged again (same as in June per patient, thinks they never truly cleared). Given ABX; need urine today (says she just had bloodwork done on Friday by [facility] oncology - will check orders/results) [facility] put tramadol on hold, pt was given PO Dilaudid x5 days, she says she has been fine with Tylenol for pain so is not using the Dilaudid. Feeling much better, more energy no fever/chills, no malaise [address], [place], [address], [facility], [facility]. 10/09/2023 20:19:46 10/15/2023 text/html HPI Notes: [...] pain. TAVIA MAGUIRE PA-C [address], [place], [address], [facility]. 10/15/2023 13:53:14 11/21/2023 text/html HPI Notes: Barb is a pleasant 73-year-old female here today for acute concern of foul urine odor from right nephrostomy tube. History of Metastatic bladder cancer. Diagnosed 2020. Has bilateral nephrostomy tubes. Seeing a [facility] oncology. Recently had pyelonephritis in July and wants to avoid infection. Would like a urinary test today. Denies any fever or chills. Has some flank pain bilaterally but not sure if that is just the tubes being in place. Recently had her tubes changed on 11/14/2023. has not really seen blood or drainage in the urine there is a little bit of clear to yellowish drainage around the right nephrostomy tube that sometimes is there with irritation. Feels pretty well other than bothered some by the heat. TING CROCKETT [address], [place], [address], [facility]. 11/30/2023 00:04:33 OBGyn Episode No OBEpisode recorded.
--- OUTSIDE RECORDS SUMMARY | 2023-12-08 03:31 | XMS_ITS | Encounter Summary ---
Author Organization [facility] Address [facility] [place] [address] Care Team Providers Care Child Day Care Center Worker Name Role Phone Tavia Ramirez ALESSANDRO Primary Care Provider [phone] Encounter Details Date Type Department Care Team (Late st Contact Info) Description 11/27/2023 [place] [id number] Adeel Panchal MD [facility] [place] [address] Social History Tobacco Use Types Packs/Day Years Used Date Smoking Tobacco: Former Cigarettes Q uit: 07/04/2014 Smokeless Tobacco: Never Alcohol Use Standard Drinks/Week Comments Not Currently 0 (1 standard drink = 0.6 oz pur e alcohol) [facility] Utilities Answer Date Recorded In the past 12 months has [employer], gas, oil, or water [employer] threatened to shut off services in your [...] slept in a jail (including now)? No 08/08/2023 DH IPV Inpatient [...] of this encounter H&P Notes * Adeel Panchal MD - 11/27/2023 9:53 AM EDT Images from the original note were not included. INTERVENTIONAL RADIOLOGY FOCUSED H&P and PRE-PROCEDURE NOTE: PCP: Tavia Ramirez APRN Referring Provider: Alin Dillard MD Planned Procedure: Planned procedure: Bilateral PCN exchangeBilateral PCN exchange Procedure Indication: Preventive maintenance exchange Procedure Request: Procedure request received through the Interventional Radiology eDH order queue. Presenting Diagnosis/ Complaint: Barb Bullard is a 73 y.o. 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 No anticoagulants or antiplatelets. No known allergies. Past Medical/Surgical History: Patient Active Problem List [...] IR Mediport Placement 04/02/2021 Yuval Sinclair PA [facility] INTERVENTIONL RAD IR NEPHROGRAM/NEPHROSTOMY TUBE EXCHANGE BILATERAL 04/24/2022 IR Nephrogram/Nephrostomy Tube Exchange Bilateral 04/24/2022 Alin Dillard MD [facility] INTERVENTIONL RAD IR NEPHROGRAM/NEPHROSTOMY TUBE EXCHANGE BILATERAL 07/26/2022 IR Nephrogram/Nephrostomy Tube Exchange Bilateral 07/26/2022 Robe Hope PA [facility] INTERVENTIONL RAD IR NEPHROGRAM/NEPHROSTOMY TUBE EXCHANGE BILATERAL 10/18/2022 IR Nephrogram/Nephrostomy Tube Exchange Bilateral 10/18/2022 Alexis De La Cruz MD [facility] INTERVENTIONL RAD IR NEPHROGRAM/NEPHROSTOMY TUBE EXCHANGE BILATERAL 12/11/2022 IR Nephrogram/Nephrostomy Tube Exchange Bilateral 12/11/2022 Alexis De La Cruz MD [facility] INTERVENTIONL RAD IR NEPHROGRAM/NEPHROSTOMY TUBE EXCHANGE BILATERAL 02/13/2023 IR Nephrogram/Nephrostomy Tube Exchange Bilateral 02/13/2023 Alin Dillard MD [facility] INTERVENTIONL RAD IR NEPHROGRAM/NEPHROSTOMY TUBE EXCHANGE BILATERAL 04/04/2023 IR Nephrogram/Nephrostomy Tube Exchange Bilateral Alin Dillard MD [facility] INTERVENTIONL RAD IR NEPHROGRAM/NEPHROSTOMY TUBE EXCHANGE BILATERAL 04/25/2023 IR Nephrogram/Nephrostomy Tube Exchange Bilateral [facility] INTERVENTIONL RAD IR NEPHROGRAM/NEPHROSTOMY TUBE EXCHANGE BILATERAL 06/19/2023 IR Nephrogram/Nephrostomy Tube Exchange Bilateral Alexis De La Cruz MD [facility] INTERVENTIONL RAD IR NEPHROGRAM/NEPHROSTOMY TUBE EXCHANGE BILATERAL 07/09/2023 IR Nephrogram/Nephrostomy Tube Exchange Bilateral 07/09/2023 Alin Dillard MD [facility] INTERVENTIONL RAD IR NEPHROGRAM/NEPHROSTOMY TUBE EXCHANGE BILATERAL 08/07/2023 IR Nephrogram/Nephrostomy Tube Exchange Bilateral [facility] INTERVENTIONL RAD IR NEPHROGRAM/NEPHROSTOMY TUBE EXCHANGE BILATERAL 09/18/2023 IR Nephrogram/Nephrostomy Tube Exchange Bilateral 09/18/2023 Jean Carlos Fenton, [facility] INTERVENTIONL RAD IR NEPHROGRAM/NEPHROSTOMY TUBE EXCHANGE BILATERAL 11/13/2023 IR Nephrogram/Nephrostomy Tube Exchange Bilateral [facility] INTERVENTIONL RAD IR NEPHROSTOMY TUBE EXCHANGE LEFT 10/03/2023 IR Nephrostomy Tube Exchange Left [facility] INTERVENTIONL RAD IR NEPHROSTOMY TUBE PLACEMENT PERCUTANEOUS BILATERAL 02/20/2021 IR Nephrostomy Tube Placement Percutaneous Bilateral [facility] INTERVENTIONL RAD IR NEPHROURETERAL (NU) STENT PLACEMENT/CHECK/CHANGE 07/13/2021 IR Nephroureteral (NU) Stent Placement Check/Change 07/13/2021 Alexis De La Cruz MD [facility] INTERVENTIONLRAD IR NEPHROURETERAL (NU) STENT PLACEMENT/CHECK/CHANGE 10/23/2021 IR Nephroureteral (NU) Stent Placement Check/Change 10/23/2021 Zeferino Rosado MD [facility] INTERVENTIONL RAD IR NEPHROURETERAL (NU) STENT PLACEMENT/CHECK/CHANGE 01/18/2022 IR Nephroureteral (NU) Stent Placement Check/Change 01/18/2022 Guillermo Nice MD [facility] INTERVENTIONLRAD PRO [facility] EBUS GUIDED SAMPL 3/> NODE STATION/STRUX N/A 04/04/2021 BRONCH, W ENDOBRONCHIAL ULTRASOUND (EBUS) GUIDED SAMPLING, 3+ NODES (WRVU 5.21) performed by Alonzo Cevallos MD at [facility] MAIN OR PRO BRONCHOSCOPY, DIAGNOSTIC W LAVAGE N/A 04/04/2021 BRONCHOSCOPY, RIGID OR FLEXIBLE, WITH BRONCHIAL ALVEOLAR LAVAGE (WRVU 2.88) performed by Alonzo Cevallos MD at [facility] MAIN OR Medications: Current Outpatient Medications on File Prior to Visit Medication Sig Dispense Refill adagrasib (Krazati) 200 mg tablet Take 800 mg by mouth daily. 120 tablet 11 traMADoL 25 mg Tablet Take 25 mg [...] on file Tobacco Use Smoking status: Former Current packs/day: 0.00 Types: Cigarettes Quit date: 07/04/2014 Years since quittin.4 Smokeless tobacco: Never Vaping Use Vaping status: Never Used Substance and Sexual Activity Alcohol use: Not [...] PROT 8.2 (H) 11/03/2023 K 5.0 11/03/2023 Imagin11/13/23 Physical Exam: Pending (to be performed in angio the day of procedure) ASA: Pending (to be assessed in angio the day of procedure) Mallampati Class: Pending (to be assessed in angio the day of procedure) Assessment: 73 y.o. 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 She presents now for preventive maintenance exchange of both PCNs. Per prior dictation, patient prefers [employer] type tubes. Reviewed with Attending: Dr. Panchal Plan: Planned procedure: Bilateral PCN exchange Labs to be performed day of procedure: No labs Sedation: No Sedation Prophylactic antibiotic : Cipro Contrast: Omnipaque Additional medications for procedure: Lidocaine Planned access site: Bilateral flank Position: Prone Consent: Completed Medications to discontinue (and days held): None Case Urgency:: G3- Elective Outpatient intervention over14 days 11/27/2023 documented in this encounter Plan of Treatment Upcoming Encounters Date Type Department Care Team (Late st Contact Info) Description 12/08/2023 3:30 PM EDT Office Visit Hematology/Oncology at [address] [address] Chase Mckay MD [facility] DR HEMATOLOGY AND ONCOLOGY [facility] [address] documented as of this encounter Visit Diagnoses Not on filedocumented in this encounter Care Teams Child Day Care Center Worker Relationship Specialty Start Date End Date Tavia Ramirez [place] [address] [place] [address] PCP - General Family Medicine 06/11/22 documented as of this encounter
--- OUTSIDE RECORDS SUMMARY | 2023-12-08 03:31 | XMS_ITS | Encounter Summary ---
Author [place] [address] Care Team Providers Care Manager Tax Name Role Phone James Tavia Foster APRN Primary Care Provider [phone] Reason for Referral * Diagnostic Test (Routine) - Authorized Specialty Diagnoses / Procedures Referred By Etta t Referred To Contact Radiology Diagnoses Obstructive uropathy Bilateral hydronephrosis Procedures IR Nephrogram/Nephrostomy Tube Exchange Bilateral Alin Dillard MD [facility] [place] [address] [facility] [place] [address] Referral ID Status Reason Start Date Expiration Date Visits Requested Visits Authorized [id number] Authorized Specialty Service Requested 11/13/2023 05/15/2025 1 1 Reason for Visit * Diagnostic Test (Routine) - Closed Specialty Diagnoses / Procedures Referred By Contac t Referred To Contact Radiology Diagnoses Obstructive uropathy Procedures IR Nephrogram/Nephrostomy Tube Exchange Bilateral IR Nephrostomy Tube Exchange Left Kris Aguilar MD [facility] [place] [address] [facility] [place] [address] Referral ID Status Reason Start Date Expiration Date V isits Requested Visits Authorized [id number] Closed Specialty Service Requested 11/13/2023 05/15/2025 1 1 Encounter Details Date Type Department Care Team (Latest Contact Info) Description 11/13/2023 1:55 PM EDT - 11/13/2023 11:59 PM EDT Hospital Encounter Radiology at [facility] [place] [address] Guillermo Nice MD [facility] [place] [address] Obstructive uropathy; Bilateral hydronephrosis Discharge Disposition: Home Social History Tobacco Use Types Packs/Day Years Used Date Smoking Tobacco: Former Cigarettes Q uit: 07/04/2014 Smokeless Tobacco: Never Alcohol Use Standard Drinks/Week Comments Not Currently 0 (1 standard drink = 0.6 oz pur e alcohol) [facility] Utilities Answer Date Recorded In [...] from the original note were not included. [facility] Vascular and Interventional Radiology Discharge Instructions [...] tubing from the drain. Put a credit cashier on both the drain and the bag. [...] is during regular office hours, please call [phone]. If it is after regular office hours, or on weekends or holidays, please call [phone] and ask to speak to the Account Development Manager client professional for Interventional Radiology. Revised 02/11/19 documented in [...] of : 1950 AGE: 73 y.o. Address: [address] [place] [address] (home) Mobile: Telephone Information: Referring Provider: Kris Aguilar REASON FOR VISIT: Order Questions Answers Where will study be performed? [facility] Radiology [120] To be scheduled Next [...] PO chemo treatment 10/1823 Bilateral PCN exchange 11t18px Lido Gel 2%. Still doing chemo treatment. [...] changes. Most recent exchange 10/03/2023 with 10 [place] catheter. Past Medical/Surgical History: has no past medical history on file. has a past surgical history that includes IR Nephrostomy Tube Placement Percutaneous Bilateral (02/20/2021); IR Mediport Placement (04/02/2021); [facility] Guided Sampl 3/> Node Station/Strux (18249) (N/A, 04/04/2021); Bronchoscopy, Diagnostic W Lavage (50474) (N/A, 04/04/2021); IR Nephroureteral(NU) Stent Placement Check/Change [...] PM EDT Office Visit Hematology/Oncology at [address] [address] Chase Mckay MD [facility] [place] [address] Scheduled Orders Name Type Priority Associated Diagnoses [...] Blood Loss: None Fluoroscopy time: Please see [facility] IR technologist record for procedural dose/time [...] nephrostomy tube as above. ??Note, pt prefers [employer] ??Neph tubes due to added length I, the attending Interventional Radiologist performed the entire procedure. Guillermo Nice MD IMG IR ORDERABLES documented in this encounter Visit Diagnoses Diagnosis Obstructive uropathy Urinary obstruction, unspecified Bilateral hydronephrosis Hydronephrosis Primary malignant neoplasm of left lower lobe [...] documented in this encounter Care Teams Manager Tax Relationship Specialty Start Date End Date Tavia Ramirez APRN [address] [place] [address] PCP - General Family Medicine 06/11/22 documented as of this encounter
--- OUTSIDE RECORDS SUMMARY | 2023-12-08 03:31 | XMS_ITS | Continuity of Care Document ---
Author Organization [place] [facility] Address [address] [place] [address] Assessment No assessment recorded. Plan of Treatment Reminders Order Date Submit Date Provider Last Modified By Organization Details Last Modified Time Details Appointments None recorded. Lab urinalysis, dipstick 2023 024 [email or web address] [facility], [address], [place], [address], 4 14:43:02 culture, urine + sensitivity - RIGHT nephrostomy tube 2023 024 [facility] (Registration ), [address] [place] [address] [place], [address], 4 16:13:43 urinalysis, dipstick [id number], [address], [place], [address], 4 14:43:02 culture, urine + sensitivity - LEFT nephrostomy tube 2023 024 [facility] (Registration ), [address] [place] [address] [place], [address], 4 16:13:43 Referral None recorded. Procedures None recorded. Surgeries None recorded. Imaging None recorded. Medication Orders None recorded. Patient TargetsNo targets recorded. Patient Instructions Encounter Date Encounter Id Patient Instructions Last Modified By Organization Details Last Modified Time 11/21/2023 [id number] nice to see you today Barb! let's be sure this isn't an infection with either nephrostomy tube due to recent flank pain and the urine odor may just be dehydration but we will be careful [email or web address] Not available 11/21/2023 13:55:59 Reason for Referral None Reported. Results Created Date Observation Date Name Description Value Unit Range Abnormal Flag LastModifiedBy Organization Detail LastModifiedTime 11/21/19 24 11/21/2023 urina lysis , dipst ick Leukocytes Large Not Available [facility] [address], [place], [address], 11/21/2023 14:33:18 11/21/19 24 11/21/2023 urina lysis , dipst ick Nitrite negati ve Not Available [facility] [address], [place], [address], 11/21/2023 14:33:18 11/21/19 24 11/21/2023 urina lysis , dipst ick Urobilinogen .2 Not Available [facility] [address], [place], [address], 11/21/2023 14:33:18 11/21/19 24 11/21/2023 urina lysis , dipst ick Protein 100 Not Available [facility] [address], [place], [address], 11/21/2023 14:33:18 11/21/19 24 11/21/2023 urina lysis , dipst ick pH 5.0 Not Available [facility] [address], [place], [address], 11/21/2023 14:33:18 11/21/19 24 11/21/2023 urina lysis , dipst ick Blood Large Not Available [facility] [address], [place], [address], 11/21/2023 14:33:18 11/21/19 24 11/21/2023 urina lysis , dipst ick Specific [place] 1.025 Not Available [facility] [address], [place], [address], 11/21/2023 14:33:18 11/21/19 24 11/21/2023 urina lysis , dipst ick Ketone Negati ve Not Available [facility] [address], [place], [address], 11/21/2023 14:33:18 11/21/19 24 11/21/2023 urina lysis , dipst ick Bilirubin Negati ve Not Available [facility] [address], [place], [address], 11/21/2023 14:33:18 11/21/19 24 11/21/2023 urina lysis , dipst ick Glucose Negati ve Not Available [facility] [address], [place], [address], 11/21/2023 14:33:18 11/21/19 24 11/21/2023 urina lysis , dipst ick Appearance Cloudy Not Available [facility] [address], [place], [address], 11/21/2023 14:33:18 11/21/19 24 11/21/2023 urina lysis , dipst ick Color Dark Yellow Not Available [facility] [address], [place], [address], 11/21/2023 14:33:18 11/21/19 24 11/21/2023 urina lysis , dipst ick Leukocytes Large Not Available [facility] [address], [place], [address], 11/21/2023 14:34:26 11/21/19 24 11/21/2023 urina lysis , dipst ick Nitrite negati ve Not Available [facility] [address], [place], [address], 11/21/2023 14:34:26 11/21/19 24 11/21/2023 urina lysis , dipst ick Urobilinogen .2 Not Available [facility] [address], [place], [address], 11/21/2023 14:34:26 11/21/19 24 11/21/2023 urina lysis , dipst ick Protein 300 Not Available [facility] [address], [place], [address], 11/21/2023 14:34:26 11/21/19 24 11/21/2023 urina lysis , dipst ick pH 5.0 Not Available [facility] [address], [place], [address], 11/21/2023 14:34:26 11/21/19 24 11/21/2023 urina lysis , dipst ick Blood Large Not Available [facility] [address], [place], [address], 11/21/2023 14:34:26 11/21/19 24 11/21/2023 urina lysis , dipst ick Specific [place] 1.015 Not Available [facility] [address], [place], [address], 11/21/2023 14:34:26 11/21/19 24 11/21/2023 urina lysis , dipst ick Ketone Negati ve Not Available [facility] [address], [place], [address], 11/21/2023 14:34:26 11/21/19 24 11/21/2023 urina lysis , dipst ick Bilirubin Negati ve Not Available [facility] [address], [place], [address], 11/21/2023 14:34:26 11/21/19 24 11/21/2023 urina lysis , dipst ick Glucose Negati ve Not Available [facility] [address], [place], [address], 11/21/2023 14:34:26 11/21/19 24 11/21/2023 urina lysis , dipst ick Appearance Cloudy Not Available [facility] [address], [place], [address], 11/21/2023 14:34:26 11/21/19 24 11/21/2023 urina lysis , dipst ick Color Dark Yellow Not Available [facility] [address], [place], [address], 11/21/2023 14:34:26 Result Notes None recorded. Problems Name Status Onset Date Resolution Date Notes Provider Name and Address Organization Details Recorded Time Acute kidney injury Completed 202011/30/[address], [place], [address] , [facility] 00:02:19 Malignant neoplasm of urinary organ Active 2020 metastatic bladder cancer diagnosed in 2020 with renal failure status post bilateral nephrostomy tubes present. [address], [place], [address] , [facility]. 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 will follow up as needed. has multiple specialists following her and want to decrease need for further health appointments unless necessary for her to come in. Problem Code: Z71.89; Problem Code Type: ICD-10; Not Available [facility] 3 05:59:25 Pneumonia Completed 202106/10/2022 Problem Code: J18.9; Problem Code Type: ICD-10; Not Available [facility] 3 05:59:25 Total nephrectomy Completed 202201/22/2023 Problem Code: Z90.5; Problem Code Type: ICD-10; Not Available [facility] 3 05:59:25 Malignant neoplasm of urinary bladder Completed 202006/10/2022 Problem Code: C67.9; Problem Code Type: ICD-10; Not Available [facility] 3 05:59:26 Blood in urine Completed 202208/15/2022 Problem Code: R31.9; Problem Code Type: ICD-10; Not Available [facility] 3 05:59:26 Disorder of lung Completed 202001/22/2023 Problem Code: J98.4; Problem Code Type: ICD-10; Not Available [facility] 3 05:59:26 Leukocytosis Active 2023 [address], [place], [address] , [facility]. 4 13:26:05 Pyelonephriti s Completed 202311/30/[address], [place], [address] , [facility]. 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 Started on pembrolizumab in March 2021. [address], [place], [address] , [facility] 4 13:41:59 Acute urinary tract infection Completed 202311/30/[address], [place], [address] , [facility] 4 00:02:35 Abnormal urine odor Active [address], [place], [address] , [facility] 4 00:02:23 Nephrostomy Active [address], [place], [address] , [facility] 4 00:03:13 Notes:*Problem Name: Primary [...] DAY NEEDED FOR PAIN active HELD BY [facility], GIVEN DILAUDID PO if needed. hasn;t taken. [...] Not Available pembroliz umab 07/07 completed Per [facility] Not Available Not Available Not Available Keytruda 25 mg/mL intraveno us solution Infuse every 3 weeks through [facility] up here 07/07 completed Not [...] Updated DateTime 4 165.1 cm 25.1 kg/m2 06886.4 5 g 97.8 [degF] 16 /min 70 /min 102 mm[Hg] 64 mm[Hg] RUSS SANCHEZ RN [place] [facility] 4 13:21:26 Social History Question Answer Notes LastModified by Organizat ion Details LastModified Time Tobacco Smoking Status Former Smoker Quit 2014 RUSS SANCHEZ RN [facility], [place] [facility] 07/21/2023 12:51:45 When Did You Quit Smoking? 6-10yearssi kayliestmariaelena lim Information not available 07/21/2023 What Was The Date Of Your Most Recent Tobacco Screening? 11/21/2023 Information not available 11/21/2023 At What Age Did You Start Smoking Tobacco? 18 Information not available 07/21/2023 How Much Tobacco Do You Smoke? No Information not available 07/21/2023 Has Tobacco Cessation Counseling Been Provided? No Information not available 07/08/2023 Do You Or Have You Ever Used Any Other Forms Of Tobacco Or Nicotine? No [email or web address] Information not available 07/08/2023 Sex: Female Functional [...] Encounter Closed Date Diagnosis/Indication Diagnosis SNOMED-CT Code [id number] T[address]OCK[address] [facility] [place] [address] 11/21/2023 12:53:58 11/21/2023 14:03:58 Abnormal urine odor 1160744 Malignant neoplasm of urinary organ 733884156 Acute urin kenzie tract infection 932511664 Pyelonephritis 87506174 Health Concerns Section Related Observation LastModified by Organization Detai ls LastModified Time None Recorded Concern Status LastModified by Organization Details LastModified Time None Recorded Payers Encounter Date Sequence Insurance Name Policy Number Policy Issa Covered Member ID Issa Member ID Guarantor Name 11/21/2023 1 [place] Barb Bullard [id number] 1 Barb Bullard Notes Date Note Type Note Provider Name and Address Organization Details Recorded Time 11/21/2023 text/html HPI Notes: Barb is a pleasant 73-year-old female here today for acute concern of foul urine odor from right nephrostomy tube. History of Metastatic bladder cancer. Diagnosed 2020. Has bilateral nephrostomy tubes. Seeing a [facility] oncology. Recently had pyelonephritis in July and [...] other than bothered some by the heat. TAVIA RAMIREZ, TING [address], [place], [address], [facility]. 11/30/2023 00:04:33 OBGyn Episode No OBEpisode recorded.
--- OUTSIDE RECORDS SUMMARY | 2023-12-08 03:31 | XMS_ITS | Referral Summary ---
Author Organization [facility] Address [address] [place] [address] Care Team Providers Care Crossbar Frame Wirer Name Role Phone Unknown, Provider Primary Care [...] C Antibody Negative Negative 03/05/2021 9:42 EST [facility] Blood VENOUS BLOOD / Unknown 03/02/2021 14:00 EDT 03/04/2021 16:56 EST Provider Outr Resulting Lab CHEMISTRY & BLOOD GAS ORDERABLES [facility] [address] [place] [address] from Last 3 Months or Most Recently Relevant to Health Maintenance Care Teams Crossbar Frame Wirer Relationship Specialty Start Date End Date Unknown, Provider, PCP - General 04/28/20
--- OUTSIDE RECORDS SUMMARY | 2023-12-08 03:31 | XMS_ITS | Encounter Summary ---
Author Organization [facility] Address [address] [place] [address] Care Team Providers Care Technical Services Assistant Name Role Phone Unknown, Provider Primary Care Provider Encounter Details Date Type Department Care Team (Late st Contact Info) Description 03/03/2021 Lab Requisition [facility] Pathology & Laboratory Medicine - [facility] [address], [place] [id number] Outr Resulting Lab, Provider Social History Tobacco [...] 4th Generation Negative Negative 03/05/2021 11:05 EST [facility] Comment:If acute HIV-1 infec tion is suspected in a high risk patient, submit plasma specimen for HIV-1 RNA quantitation test. Blood VENOUS BLOOD / Unknown 03/02/2021 14:00 EDT 03/04/2021 16:56 EST Narrative [facility] - 03/05/2021 11:05 EST Fourth Generation assay performed on the Siemens Inside Socialaur XPT. Provider Outr Resulting Lab IMMUNOLOGY A ND SEROLOGY ORDERABLES [facility] [address] [phone] documented in this encounter Visit Diagnoses Not on filedocumented in this encounter Care Teams Technical Services Assistant Relationship Specialty Start Date End Date Unknown, Provider, PCP - General 04/28/20 documented as of this encounter
--- OUTSIDE RECORDS SUMMARY | 2023-12-08 03:31 | XMS_ITS | Encounter Summary ---
Author Organization [facility] Address [address] [place] [address] Care Team Providers Care Ethnoarchaeologist Name Role Phone Unavailable Primary Care Provider Unavailabl e Encounter Details Date Type Department Care Team (Late st Contact Info) Description 01/29/2007 Results Only [facility] [address] [place] [address] Meeta Garcia PA [address] [place] [id number] Social History Tobacco Use Types Packs/Day Years [...] [facility]. [facility] Report Status Final [id number] [facility] 01/29/2007 8:59 EDT 02/10/2007 8:59 EDT Meeta RANGEL MICROBIOLOGY - GENER AL ORDERABLES [facility] [address] [place] [address] * CYTOPATHOLOGY (01/29/2007 0:00 EDT) Pathology Report: CYTOPATHOLOGY REPORT Reports generated via electronic interface contain original data; however they are lacking the format of the original report. Caution should be taken when reading/interpreti ng unformatted reports. Name: ? BARB BULLARD ? Accession #: ? [id number] : ? 1950 (Age: 56) ??F ?Collect Date: ? 01/29/2007 Location: ? [facility] ? Receive Date: ? 02/02/2007 Provider: ?MEETA RANGEL Copy to: ? Specimen/Source: ?ThinPrep Pap Test, Cervix/Endocervix, processed on EasyRun ThinPrep Imaging System, with manual evaluation Last [...] Meeta RANGEL PATHOLOGY ORDERABLES Performing Organization Address City/State/[facility] Co de Phone Number [facility] [address] [place] [address] documented in this encounter Visit Diagnoses Not on filedocumented in this encounter
--- OUTSIDE RECORDS SUMMARY | 2023-12-08 03:31 | XMS_ITS | Encounter Summary ---
Author Organization [facility] Address [facility] [place] [address] Care Team Providers Care Pharmacy Technician Infusion Name Role Phone James Tavia Foster APRN Primary Care Provider [phone] Encounter Details Date Type Department Care Team (Latest Contact Info) Description 12/02/2023 Travel Social History Tobacco Use Types Packs/Day Years Used Date Smoking Tobacco: Former Cigarettes Q uit: 07/04/2014 Smokeless Tobacco: Never Alcohol Use Standard Drinks/Week Comments Not Currently 0 (1 standard drink = 0.6 oz pur e alcohol) [facility] Utilities Answer Date Recorded [...] slept in a correction (including now)? No 08/08/2023 DH IPV Inpatient [...] PM EDT Office Visit Hematology/Oncology at [address] [phone] Chase Mckay MD [facility] [address] HEMATOLOGY [place] [address] documented as of this encounter Visit Diagnoses Not on filedocumented in this encounter Care Teams Pharmacy Technician Infusion Relationship Specialty Start Date End Date Tavia Ramirez [place] [address] [place] [address] PCP - General Family Medicine 06/11/22 documented as of this encounter
--- OUTSIDE RECORDS SUMMARY | 2023-12-08 03:31 | XMS_ITS | Encounter Summary ---
Author Organization [facility] Address [facility] [place] [address] Care Team Providers Care Dynamo Repairer Name Role Phone JamesTavia ALESSANDRO Primary Care Provider [phone] Encounter Details Date Type Department Care Team (Late st Contact Info) Description 11/13/2023 Orders [place] [phone] Kris Aguilar MD [facility] [place] [address] Obstructive uropathy Social History Tobacco Use Types Packs/Day Years Used Date Smoking Tobacco: Former Cigarettes Q uit: 07/04/2014 Smokeless Tobacco: Never Alcohol Use Standard Drinks/Week Comments Not Currently 0 (1 standard drink = 0.6 oz pur e alcohol) [facility] Utilities Answer Date Recorded In the past 12 months has th e electric, gas, oil, or water [employer] threatened to shut off services in your [...] slept in a usp (including now)? No 08/08/2023 DH IPV Inpatient [...] changes. Most recent exchange 10/03/2023 with 10 Tongan catheter. Past Medical/Surgical History: has no past medical history on file. has a past surgical history that includes IR Nephrostomy Tube Placement Percutaneous Bilateral (02/20/2021); IR Mediport Placement (04/02/2021); [facility] [place] Guided Sampl 3/> Node Station/Strux ([id number]) (N/A, 04/04/2021); Bronchoscopy, Diagnostic W Lavage ([id number]) (N/A, 04/04/2021); IR Nephroureteral(NU) Stent Placement Check/Change [...] PM EDT Office Visit Hematology/Oncology at [address] [phone] Chase Mckay MD [facility] [address] HEMATOLOGY [place] [address] documented as of this encounter Visit Diagnoses Diagnosis Obstructive uropathy Urinary obstruction, unspecified 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 Malignant neoplasm of lower lobe, bronchus, or lung Metastatic urothelial carcinoma 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
--- OUTSIDE RECORDS SUMMARY | 2023-12-08 03:31 | XMS_ITS | Clinical Summary ---
Author Organization [facility] Address [address] [place] [address] Care Team Providers Care Train Starter Name Role Phone Unknown, Provider Primary Care [...] C Antibody Negative Negative 03/05/2021 9:42 EST [facility] Blood VENOUS BLOOD / Unknown 03/02/2021 14:00 EDT 03/04/2021 16:56 EST Provider Outr Resulting Lab CHEMISTRY & BLOOD GAS ORDERABLES [facility] [address] [place] [address] from Last 3 Months or Most Recently Relevant to Health Maintenance Care Teams Train Starter Relationship Specialty Start Date End Date Unknown, Provider, PCP - General 04/28/20
--- OUTSIDE RECORDS SUMMARY | 2023-12-08 03:32 | XMS_ITS | Encounter Summary ---
Author Organization [facility] Address [facility] [place] [address] Care Team Providers Care Lathe Machine Operator Name Role Phone James Tavia Foster APRN Primary Care Provider [phone] Encounter Details Date Type Department Care Team (Latest Contact Info) Description 09/29/2023 Travel Social History Tobacco Use Types Packs/Day Years Used Date Smoking Tobacco: Former Cigarettes Q uit: 07/04/2014 Smokeless Tobacco: Never Alcohol Use Standard Drinks/Week Comments Not Currently 0 (1 standard drink = 0.6 oz pur e alcohol) [facility] Utilities Answer Date Recorded In the past [...] PM EDT Office Visit Hematology/Oncology at [address] [phone] Chase Mckay MD [facility] DR H[place]ATOLOG[place] [address] documented as of this encounter Visit Diagnoses Not on filedocumented in this encounter Care Teams Lathe Machine Operator Relationship Specialty Start Date End Date Tavia Ramirez [place] [place] [address] PCP - General Family Medicine 06/11/22 documented as of this encounter
--- OUTSIDE RECORDS SUMMARY | 2023-12-08 03:32 | XMS_ITS | Encounter Summary ---
Author Organization [facility] Address [facility] [place] [address] Care Team Providers Care Clearance Coordinator Name Role Phone James Tavia Foster APRN Primary Care Provider [phone] Encounter Details Date Type Department Care Team (Latest Contact Info) Description 11/03/2023 11:14 AM EDT - 11/03/2023 11:54 AM EDT Hospital Encounter Hematology [place] [phone] 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 Discharge Disposition: Home Social History Tobacco Use Types Packs/Day Years Used Date Smoking Tobacco: Former Cigarettes Q uit: 07/04/2014 Smokeless Tobacco: Never Alcohol Use Standard Drinks/Week Comments Not Currently 0 (1 standard drink = 0.6 oz pur e alcohol) [facility] Utilities Answer Date Recorded In the [...] PM EDT Office Visit Hematology/Oncology at [address] [phone] Chase Mckay MD [facility] DR HEMATOLOGY [place] [address] documented as of this encounter Procedures Procedure [...] 11:27 AM EDT) Neutrophil % 68.6 % [facility] Neutrophil Absolute 6.40(H) 1.70 - 6.10 x10(3)/mc L [facility] Lymph % 15.8 % [facility] Lymphocytes Abs 1.5 0.9 - 3.2 x10(3)/mc L [facility] Monocyte % 8.5 % [facility] Monocyte Abs 0.8 0.3 - 0.9 x10(3)/mc L [facility] Eos % 5.8 % [facility] Eosinophils Abs 0.5(H) 0.0 - 0.4 x10(3)/mc L [facility] Basophil % 0.6 % [facility] Baso Absolute 0.1 0.0 - 0.1 x10(3)/mc L [facility] Immature Gran % 0.70 % [facility] Comment: Immature granulocytes(IG's)percentage and absolute count will include metamyelocytes, myelocytes, and promyelocytes. Blood smears from CBCs yielding IG's will be scanned manually for concordance. If this scan disagrees with the automated IG or if promyelocytes are noted, a manual differential will be performed. Immature Gran Absolute 0.07(H) 0.00 - 0.04 x10(3)/[facility] Blood 11/03/2023 11:2 7 AM EDT 11/03/2023 11:57 AM EDT Narrative Resulting Agency Comment Spec In Lab Dianne Jacob APRN HEMATOLOGY ORDER SYDNEY [facility] [place] [address] * (ABNORMAL) Hemogram (11/03/2023 11:27 AM EDT) White Blood Cell 9.3 4.0 - 9.5 x10(3)/[facility] Red Blood Cell 5.08 4.00 - 5.21 x10(6)/[facility] Hemoglobin 12.1 11.7 - 15.5 g/dL [facility] Hematocrit 38.4 35.7 - 45.8 % [facility] Mean Cell Volume 75.6(L) 82.6 - 94.4 fL [facility] Mean Cell Hemoglobin 23.8(L) 27.1 - 32.0 pg [facility] Mean Cell Hemoglobin Concentration 31.5(L) 31.7 - 35.0 g/dL [facility] Platelet 620(H) 145 - 357 x10(3)/[facility] RDW Standard Deviation 43.8 37.0 - 46.0 fL [facility] RDW coefficient of variation 16.3(H) 11.5 - 14.1 % [facility] Mean Platelet Volume 9.8 7.6 - 12.9 fL [facility] NRBC% auto 0.0 % [facility] NRBC Absolute 0.000 0.000 - 0.000 x10(3)/mc L [facility] Blood 11/03/2023 11:2 7 AM EDT 11/03/2023 11:57 AM EDT Narrative Resulting Agency Comment Spec In Lab Dianne Jacob WATER PLANT PUMP OPERATOR HEMATOLOGY ORDER SYDNEY [facility] [place] [address] * (ABNORMAL) Comprehensive metabolic panel (non-fasting) (11/03/2023 11:27 AM EDT) Glucose 99 65 - 199 mg/dL [facility] Comment:Diabetes: >=200 mg/d L plus symptoms Blood Urea Nitrogen 25(H) 8 - 18 mg/dL [facility] Creatinine 2.03(H) 0.70 - 1.20 mg/dL [facility] Sodium 139 135 - 145 mmol/L [facility] Potassium 5.0 3.5 - 5.0 mmol/L [facility] Comment: Please note: ??Patients with WBC >100,000 may have falsely elevated Potassium levels. ??For accurate Potassium quantification in these patients send serum separator tube (gold top) for subsequent determinations. ??Contact the Clinical Chemistry Laboratory if there are any questions. Chloride 109(H) 98 - 107 mmol/L [facility] Carbon Dioxide 20(L) 22 - 31 mmol/L [facility] Anion Gap 10 5 - 15 mmol/L [facility] Calcium 9.4 8.5 - 10.5 mg/dL [facility] Protein, Total 8.2(H) 6.1 - 8.0 g/dL [facility] Albumin 4.0 3.2 - 5.2 g/dL [facility] Aspartate Aminotransferase 10 0 - 30 unit/L [facility] Alanine Aminotransferase 7 0 - 30 unit/L [facility] Alkaline Phosphatase 108(H) 35 - 105 unit/L [facility] Bilirubin, Total 0.8 0.2 - 1.3 mg/dL [facility] Est Glomerular Filtration Rate 26(L) >=60 mL/min/1. 73 m?? 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
--- OUTSIDE RECORDS SUMMARY | 2023-12-08 03:32 | XMS_ITS | Encounter Summary ---
Author Organization [facility] Address [facility] [place] [address] Care Team Providers Care Event Coordinator Marketing And Sales Name Role Phone James Tavia Foster APRN Primary Care Provider [phone] Encounter Details Date Type Department Care Team (Latest Contact Info) Description 10/02/2023 Travel Social History Tobacco Use Types Packs/Day Years Used Date Smoking Tobacco: Former Cigarettes Q uit: 07/04/2014 Smokeless Tobacco: Never Alcohol Use Standard Drinks/Week Comments Not Currently 0 (1 standard drink = 0.6 oz pur e alcohol) [facility] Utilities Answer Date Recorded In [...] in a long term (including now)? No 08/08/2023 DH IPV Inpatient [...] PM EDT Office Visit Hematology/Oncology at [address] [phone] Chase Mckay MD [facility] DR HEMATOLOGY [place] [address] documented as of this encounter Visit Diagnoses Not on filedocumented in this encounter Care Teams Event Coordinator Marketing And Sales Relationship Specialty Start Date End Date Tavia Ramirez [place] [address] [place] [address] PCP - General Family Medicine 06/11/22 documented as of this encounter
--- OUTSIDE RECORDS SUMMARY | 2023-12-08 03:32 | XMS_ITS | Encounter Summary ---
Author Organization [facility] Address [facility] [place] [address] Care Team Providers Care Manager Market Development Name Role Phone James Tavia Foster APRN Primary Care Provider [phone] Encounter Details Date Type Department Care Team (Latest Contact Info) Description 09/18/2023 Travel Social History Tobacco Use Types Packs/Day Years Used Date Smoking Tobacco: Former Cigarettes Q uit: 07/04/2014 Smokeless Tobacco: Never Alcohol Use Standard Drinks/Week Comments Not Currently 0 (1 standard drink = 0.6 oz pur e alcohol) [facility] Utilities Answer Date Recorded In the past [...] PM EDT Office Visit Hematology/Oncology at [address] [phone] Chase Mckay MD [facility] [address] [place] [address] documented as of this encounter Visit Diagnoses Not on filedocumented in this encounter Care Teams Manager Market Development Relationship Specialty Start Date End Date Tavia Ramirez [place] [place] [address] PCP - General Family Medicine 06/11/22 documented as of this encounter
--- OUTSIDE RECORDS SUMMARY | 2023-12-08 03:32 | XMS_ITS | Encounter Summary ---
Author Organization [facility] Address [facility] [place] [address] Care Team Providers Care Application Development Team Lead Name Role Phone James Tavia Foster APRN Primary Care Provider [phone] Encounter Details Date Type Department Care Team (Latest Contact Info) Description 08/19/2023 Travel Social History Tobacco Use Types Packs/Day Years Used Date Smoking Tobacco: Former Cigarettes Q uit: 07/04/2014 Smokeless Tobacco: Never Alcohol Use Standard Drinks/Week Comments Not Currently 0 (1 standard drink = 0.6 oz pur e alcohol) [facility] Utilities Answer Date Recorded In the past [...] PM EDT Office Visit Hematology/Oncology at [address] [phone] Chase Mckay MD [facility] [address] [place] [address] documented as of this encounter Visit Diagnoses Not on filedocumented in this encounter Care Teams Application Development Team Lead Relationship Specialty Start Date End Date Tavia Ramirez [place] [place] [address] PCP - General Family Medicine 06/11/22 documented as of this encounter
--- OUTSIDE RECORDS SUMMARY | 2023-12-08 03:32 | XMS_ITS | Encounter Summary ---
Author Organization [facility] Address [facility] [address] Care Team Providers Care [employer] Developer Name Role Phone James Tavia Foster APRN Primary Care Provider [phone] Encounter Details Date Type Department Care Team (Latest Contact Info) Description 09/26/2023 Travel Social History Tobacco Use Types Packs/Day Years Used Date Smoking Tobacco: Former Cigarettes Q uit: 07/04/2014 Smokeless Tobacco: Never Alcohol Use Standard Drinks/Week Comments Not Currently 0 (1 standard drink = 0.6 oz pur e alcohol) [facility] Utilities Answer Date Recorded [...] PM EDT Office Visit Hematology/Oncology at [address] [phone] Chase Mckay MD [facility] DR HEMATOLOGY [place] [address] documented as of this encounter Visit Diagnoses Not on filedocumented in this encounter Care Teams [employer] Developer Relationship Specialty Start Date End Date Tavia Raimrez [place] [address] [place] [address] PCP - General Family Medicine 06/11/22 documented as of this encounter
--- OUTSIDE RECORDS SUMMARY | 2023-12-08 03:32 | XMS_ITS | Encounter Summary ---
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 Procedures NM PET CT Skull Base to Mid-thigh Chase Mckay MD [facility] DR HEM[place] [address] [place] [address] Referral ID Status Reason Start Date Expiration Date V isits Requested Visits Authorized [id number] Closed Specialty Service Requested 07/21/2023 01/20/2025 1 1 Reason for Visit * Diagnostic Test (Routine) - Closed Specialty Diagnoses / Procedures Referred By Contac t Referred To Contact Radiology Diagnoses 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 Procedures NM PET CT Skull Base to Mid-thigh Chase Mckay MD [facility] DR HEMATOLOGY [place] [address] [place] [address] Referral ID Status Reason Start Date Expiration Date V isits Requested Visits Authorized [id number] Closed Specialty Service Requested 07/21/2023 01/20/2025 1 1 Encounter Details Date Type Department Care Team (Late st Contact Info) Description 08/19/2023 10:57 AM EDT - 08/19/2023 11:59 PM EDT Hospital Encounter Nuclear Medicine at [facility] [place] [address] Chase Mckay MD [facility] DR HEMATOLOG[place] [address] 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; Secondary malignant neoplasm of pleura Discharge Disposition: Home Social History Tobacco Use Types Packs/Day Years Used Date Smoking Tobacco: Former Cigarettes Q uit: 07/04/2014 Smokeless Tobacco: Never Alcohol Use Standard Drinks/Week Comments Not Currently 0 (1 standard drink = 0.6 oz pur e alcohol) [facility] Utilities Answer Date Recorded In the past 12 months has th e [employer], gas, oil, or water [employer] threatened to shut off services in your [...] PM EDT Office Visit Hematology/Oncology at [address] [phone] Chase Mckay MD [facility] DR HEMATOLOGY [place] [address] documented as of this encounter Procedures Procedure Name Priority Date/Time Associated Diagnosis Comments NM PET CT SKULL BASE TO MID-THIGH (LCSR) Routine 08/19/2023 1:07 PM EDT 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 ? Narrative [...] of pleura TECHNIQUE: Following IV injection of 85-gkkydu-2-deoxyglucose (FDG) a standard uptake of approximately 60 [...] of pleura TECHNIQUE: Following IV injection of 29-xzztfy-7-deoxyglucose (FDG) astandard uptake of approximately 60 minutes, [...] patients who have questions please contactthe health care team coordinator scheduler that requested your imaging first. Electronically signed by: Chet Bowie [facility] ([phone]),at 08/21/2023 9:14 AM Chase Mckay MD IMG [...] Intravenous, ONCE PRN, 1 dose, Starting on 08/19/23 at 1112, Until 08/19/23 at 1108, Per Protocol, Radiology Contrast, Routine Given 08/19/2023 11:08 AM EDT 10.2 mCi Implanted Port documented in this encounter Care Teams Licensed Optical Dispenser Relationship Specialty Start Date End Date Tavia Ramirez, ALESSANDR[place] [address] PCP - General Family Medicine 06/11/22 documented as of this encounter
--- OUTSIDE RECORDS SUMMARY | 2023-12-08 03:32 | XMS_ITS | Encounter Summary ---
[place] [address] Care Team Providers Care Portfolio Manager Name Role Phone Tavia Ramirez APRN Primary Care Provider [phone] Reason for Referral * Diagnostic Test (Routine) - Closed Specialty Diagnoses / Procedures Referred By Contac t Referred To Contact Radiology Diagnoses 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 Metastatic urothelial carcinoma Procedures NM PET CT Skull Base to Mid-thigh Dianne Jacob APRN [address] [place] [address] [place] [address] [place] [address] Referral ID Status Reason Start Date Expiration Date V isits Requested Visits Authorized [id number] Closed Specialty Service Requested 09/29/2023 03/30/2025 1 1 Reason for Visit * Diagnostic Test (Routine) - Closed Specialty Diagnoses / Procedures Referred By Contac t Referred To Contact Radiology Diagnoses 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 Metastatic urothelial carcinoma Procedures NM PET CT Skull Base to Mid-thigh Dianne Jacbo APRN [address] [place] [address] [place] [address] [place] [address] Referral ID Status Reason Start Date Expiration Date V isits Requested Visits Authorized [id number] Closed Specialty Service Requested 09/29/2023 03/30/2025 1 1 Encounter Details Date Type Department Care Team (Late st Contact Info) Description 11/03/2023 11:55 AM EDT Hospital En[place] [address] Dianne Jacob, TOOLS ADMINISTRATOR [address] [place] [address] [place] [address] 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 [place] [address] documented as of this encounter Procedures Procedure Name Priority Date/Time Associated Diagnosis Comments NM PET CT SKULL BASE TO MID-THIGH (LCSR) Routine 11/03/2023 1:26 PM EDT 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 Metastatic urothelial carcinoma documented in this encounter Results * NM PET CT Skull Base to Mid-thigh (11/03/2023 1:26 PM EDT) WORKSTATION ID [id number] RAD Anatomical Region Laterality Modality Positron Emissio [...] have questions please contact the health home care liaison that requested your imaging first. ? Electronically signed by: Ed Barajas MD, [facility] ([phone]), at 11/05/2023 11:29 AM Narrative 11/05/2023 11:29 AM EDT EXAMINATION: MO PET CT STANDARD SKULL BASE TO MID-THIGH CLINICAL HISTORY: NSCLC Metastatic non-small cell lung cancer subsequent treatment evaluation. Also history of bladder cancer. C34.32, Malignant neoplasm of lower lobe, left bronchus or lung - C79.10, Secondary malignant neoplasm of unspecified urinary organs. TECHNIQUE: Following IV injection of 74-tqfped-0-deoxyglucose (FDG) a standard uptake of approximately 60 [...] urinary organs. TECHNIQUE: Following IV injection of 72-zpjuio-0-deoxyglucose (FDG) astandard uptake of approximately 60 minutes, [...] who have questions please contactthe health home care liaison that requested your imaging first. Electronically signed by: Ed Barajas MD, [facility]([phone]), at 11/05/2023 11:29 AM Dianne Jacob APRN [...] dose, Starting on Fri11/03/23 at 1227, Until 11/03/23 at 1225, Per Protocol, Radiology Contrast, Routine Given 11/03/2023 12:25 PM EDT 10.3 mCi Implanted Port documented in this encounter Care Teams Portfolio Manager Relationship Specialty Start Date End Date Tavia Ramirez, ALESSANDRO [address] [place] [address] PCP - General Family Medicine 06/11/22 documented as of this encounter
--- OUTSIDE RECORDS SUMMARY | 2023-12-08 03:32 | XMS_ITS | Encounter Summary ---
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; Secondary malignant neoplasm of pleura; Metastatic urothelial carcinoma Discharge Disposition: Home Social History Tobacco Use Types Packs/Day Years Used Date Smoking Tobacco: Former Cigarettes Q uit: 07/04/2014 Smokeless Tobacco: Never Alcohol Use Standard Drinks/Week Comments Not Currently 0 (1 standard drink = 0.6 oz pur e alcohol) [facility] Utilities Answer Date Recorded In the past 12 months has e [employer], gas, oil, or water [employer] threatened to shut off services in your [...] PM EDT Office Visit Hematology/Oncology at [address] [phone] Chase Mckay MD [facility] DR [place] [address] documented as of this encounter Procedures Procedure Name Priority Date/Time Associated Diagnosis Comments HEMOGRAM STAT 08/19/2023 10:20 AM EDT 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 DIFFERENTIAL, AUTOMATED STAT 08/19/2023 10:20 AM EDT 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 CBC (WITH DIFF) STAT 08/19/2023 10:20 AM EDT 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 MAGNESIUM STAT 08/19/2023 10:20 AM EDT 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 COMPREHENSIVE METABOLIC PANEL STAT 08/19/2023 10:20 AM EDT 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 Results * (ABNORMAL) Differential, Automated (08/19/2023 10:20 AM EDT) Neutrophil % 69.7 % [facility] Neutrophil Absolute 7.92(H) 1.70 - 6.10 x10(3)/ L [facility] Lymph % 15.0 % [facility] Lymphocytes Abs 1.7 0.9 - 3.2 x10(3)/[facility] Monocyte % 7.8 % [facility] Monocyte Abs 0.9 0.3 - 0.9 x10(3)/[facility] Eos % 6.7 % [facility] Eosinophils Abs 0.8(H) 0.0 - 0.4 x10(3)/[facility] Basophil % 0.4 % [facility] Baso Absolute 0.0 0.0 - 0.1 x10(3)/[facility] Immature Gran % 0.40 % [facility] Comment: Immature granulocytes(IG's)percentage and absolute count will include metamyelocytes, myelocytes, and promyelocytes. Blood smears from CBCs yielding IG's will be scanned manually for concordance. If this scan disagrees with the automated IG or if promyelocytes are noted, a manual differential will be performed. Immature Gran Absolute 0.05(H) 0.00 - 0.04 x10(3)/[facility] Blood 08/19/2023 10:2 0 AM EDT 08/19/2023 10:45 AM EDT Narrative Resulting Agency Comment Spec In Lab Chase Mckay MD HEMATOLOGY ORDERABLE S [facility] [place] [address] * (ABNORMAL) Hemogram (08/19/2023 10:20 AM EDT) Pathologist [facility] White Blood Cell 11.4(H) 4.0 - 9.5 x10(3)/[facility] Red Blood Cell 4.64 4.00 - 5.21 x10(6)/mc L [facility] Hemoglobin 11.7 11.7 - 15.5 g/dL [facility] Hematocrit 36.8 35.7 - 45.8 % [facility] Mean Cell Volume 79.3(L) 82.6 - 94.4 fL [facility] Mean Cell Hemoglobin 25.2(L) 27.1 - 32.0 pg [facility] Mean Cell Hemoglobin Concentration 31.8 31.7 - 35.0 g/dL [facility] Platelet 559(H) 145 - 357 x10(3)/mc L [facility] RDW Standard Deviation 45.1 37.0 - 46.0 [facility] RDW coefficient of variation 15.7(H) 11.5 - 14.1 % [facility] Mean Platelet Volume 9.7 7.6 - 12.9 [facility] NRBC% auto 0.0 % [facility] NRBC Absolute 0.000 0.000 - 0.000 x10(3)/mc L [facility] Blood 08/19/2023 10:2 0 AM EDT 08/19/2023 10:45 AM EDT Narrative Resulting Agency Comment Spec In Lab Chase Mckay MD HEMATOLOGY ORDERABLE S [facility] [place] [address] * (ABNORMAL) Comprehensive metabolic panel (non-fasting) (08/19/2023 10:20 AM EDT) Glucose 92 65 - 199 mg/dL [facility] Comment:Diabetes: >=200 mg/d L plus symptoms Blood Urea Nitrogen 19(H) 8 - 18 mg/dL [facility] Creatinine 1.74(H) 0.70 - 1.20 mg/dL [facility] Sodium 141 135 - 145 mmol/L [facility] mmol/L [facility] Carbon Dioxide 20(L) 22 - 31 mmol/L [facility] Anion Gap 13 5 - 15 mmol/L [facility] Calcium 9.0 8.5 - 10.5 mg/dL [facility] Protein, Total 8.3(H) 6.1 - 8.0 g/dL [facility] Albumin 3.8 3.2 - 5.2 g/dL [facility] Aspartate Aminotransferase 19 0 - 30 unit/L [facility] Alanine Aminotransferase 26 0 - 30 unit/L [facility] Alkaline Phosphatase 126(H) 35 - 105 unit/L [facility] Bilirubin, Total 1.0 0.2 - 1.3 mg/dL [facility] Est Glomerular Filtration Rate 31(L) >=60 mL/min/1. 73 m?? [facility] In Lab Chase Mckay MD CHEMISTRY ORDERABLES [facility] [place] [address] * Magnesium (08/19/2023 10:20 AM EDT) Magnesium 0.94 0.69 - 1.07 mmol/L [facility] Blood 08/19/2023 10:2 0 AM EDT 08/19/2023 10:45 AM EDT Narrative Resulting Agency Comment Spec In Lab Chase Mckay MD CHEMISTRY ORDERABLES Performing Organization Address City/[facility]/ZIP Co de Phone Number [facility] [place] [address] documented in this encounter Visit Diagnoses Diagnosis [...] Intravenous, EVERY 1 MIN PRN, Starting on Tu08/19/23 at 1021, Until Fri08/20/23 at 0434, Shooter Helper, Routine Given 08/19/2023 10:36 AM EDT 20 mLs documented in this encounter Care Teams Sales Manager Prearranged Funerals Relationship Specialty Start Date End Date Tavia Ramirez, FINANCIAL [place] [address] [address] PCP - General Family Medicine 06/11/22 documented as of this encounter
--- OUTSIDE RECORDS SUMMARY | 2023-12-08 03:32 | XMS_ITS | Encounter Summary ---
Author Organization [facility] Address [facility] [place] [address] Care Team Providers Care Rigger Supervisor Name Role Phone James Tavia Foster APRN Primary Care Provider [phone] Encounter Details Date Type Department Care Team (Late st Contact Info) Description 08/26/2023 1:00 PM EDT Office Visit Hematology/Oncology at [address] [address] Jose Rhoades MD [facility] DR H[place]ATOLOGY [place] [address] Katherine Sepulveda APRN [facility] [place] [address] Metastatic urothelial carcinoma Social History Tobacco Use Types Packs/Day Years Used Date Smoking Tobacco: Former Cigarettes Q uit: 07/04/2014 Smokeless Tobacco: Never Alcohol Use Standard Drinks/Week Comments Not Currently 0 (1 standard drink = 0.6 oz pur e alcohol) [facility] Utilities Answer Date Recorded In the past 12 months has [employer] electric, gas, oil, or water company threatened [...] not included. Hematology & Medical Oncology [address] [address] Barb returns today to continue treatment for [...] distinct lung primary. She was seen by topography technician , who recommended rigid bronchoscopy with attempts [...] The assay was performed according to the plumbing mechanic's instructions using Anti-PD-L1 (22C3, pharmDX) antibody. Electronically signed by: Herbert Ford MD Verified: 04/11/2021 8:14 Pathologist Performed at: -[facility] Dept. of Pathology, [place], [place] Surgical Pathology DIAGNOSIS A - Lung, left lower lobe mass, debulking: - Adenocarcinoma, consistent with lung primary. Electronically signed by: Sana Dowell MD Verified: 04/06/2021 11:16 Pathologist Performed at: -[facility] Dept. of Pathology, [place], [place] DISCUSSION Sections show an invasive, predominantly [...] of presumably metastatic urothelial carcinoma which include [place] based chemotherapy versus immunotherapy. Due to her [...] up with nephrology. Continues with tube exchange [id number]. # Anemia- mild- asymptomatic. 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
--- OUTSIDE RECORDS SUMMARY | 2023-12-08 03:32 | XMS_ITS | Encounter Summary ---
[place] [address] Care Team Providers Care Boilermaker'S Assistant Name Role Phone Tavia Ramirez APRN Primary Care Provider [phone] Reason for Visit * Diagnostic Test (Routine) [...] Nephrogram/Nephrostomy Tube Exchange Bilateral Jean Carlos Fenton, [facility] [place] [address] [place] [address] Referral ID Status Reason Start Date Expiration Date V isits Requested Visits Authorized [id number] Closed Specialty Service Requested 09/18/2023 03/20/2025 1 1 Encounter Details Date Type Department Care Team (Latest Contact Info) Description 10/03/2023 10:51 AM EDT - 10/03/2023 11:59 PM EDT Hospital [place] [address] Jean Carlos Fenton, [facility] [place] [address] Metastatic urothelial carcinoma; BRITNI (acute [...] e alcohol) [facility] Utilities Answer Date Recorded In the past 12 months has th e electric, gas, oil, or water [employer] threatened to shut off services in your [...] slept in a half-way (including now)? No 08/08/2023 DH IPV Inpatient [...] of : 1950 AGE: 73 y.o. Address: [address] [place] [phone] (home) Mobile: Telephone Information: Referring Provider: Jean Carlos Fenton REASON FOR VISIT: Order Questions Answers Where will study be performed? [facility] Radiology [120] To be scheduled Next available [...] Questions Answers Where will study be performed? [facility] Radiology [120] To be scheduled Next available [...] IR Mediport Placement 04/02/2021 Yuval Sinclair PA [facility] RAD IR NEPHROGRAM/NEPHROSTOMY TUBE EXCHANGE BILATERAL 04/24/2022 IR Nephrogram/Nephrostomy Tube Exchange Bilateral 04/24/2022 Alin Dillard MD [facility] RAD IR NEPHROGRAM/NEPHROSTOMY TUBE EXCHANGE BILATERAL 07/26/2022 IR Nephrogram/Nephrostomy Tube Exchange Bilateral 07/26/2022 Robe Hope PA [facility] RAD IR NEPHROGRAM/NEPHROSTOMY TUBE EXCHANGE BILATERAL 10/18/2022 IR Nephrogram/Nephrostomy Tube Exchange Bilateral 10/18/2022 Alexis De La Cruz MD [facility] RAD IR NEPHROGRAM/NEPHROSTOMY TUBE EXCHANGE BILATERAL 12/11/2022 IR Nephrogram/Nephrostomy Tube Exchange Bilateral 12/11/2022 Alexis De La Cruz MD [facility] RAD IR NEPHROGRAM/NEPHROSTOMY TUBE EXCHANGE BILATERAL 02/13/2023 IR Nephrogram/Nephrostomy Tube Exchange Bilateral 02/13/2023 Alin Dillard MD [facility] RAD IR NEPHROGRAM/NEPHROSTOMY TUBE EXCHANGE BILATERAL 04/04/2023 IR Nephrogram/Nephrostomy Tube Exchange Bilateral Alin Dillard MD [facility] RAD IR NEPHROGRAM/NEPHROSTOMY TUBE EXCHANGE BILATERAL 04/25/2023 IR Nephrogram/Nephrostomy Tube Exchange Bilateral [facility] RAD IR NEPHROGRAM/NEPHROSTOMY TUBE EXCHANGE BILATERAL 06/19/2023 IR Nephrogram/Nephrostomy Tube Exchange Bilateral Alexis De La Cruz MD [facility] RAD IR NEPHROGRAM/NEPHROSTOMY TUBE EXCHANGE BILATERAL 07/09/2023 IR Nephrogram/Nephrostomy Tube Exchange Bilateral 07/09/2023 Alin Dillard MD [facility] RAD IR NEPHROGRAM/NEPHROSTOMY TUBE EXCHANGE BILATERAL 08/07/2023 IR Nephrogram/Nephrostomy Tube Exchange Bilateral [facility] RAD IR NEPHROGRAM/NEPHROSTOMY TUBE EXCHANGE BILATERAL 09/18/2023 IR Nephrogram/Nephrostomy Tube Exchange Bilateral 09/18/2023 Jean Carlos Fenton, [facility] RAD IR NEPHROSTOMY TUBE PLACEMENT PERCUTANEOUS BILATERAL 02/20/2021 IR Nephrostomy Tube Placement Percutaneous Bilateral [facility] IR NEPHROURETERAL (NU) STENT PLACEMENT/CHECK/CHANGE 07/13/2021 IR Nephroureteral (NU) Stent Placement Check/Change 07/13/2021 Alexis De La Cruz MD [facility] IR NEPHROURETERAL (NU) STENT PLACEMENT/CHECK/CHANGE 10/23/2021 IR Nephroureteral (NU) Stent Placement Check/Change 10/23/2021 Zeferino Rosado MD [facility] IR NEPHROURETERAL (NU) STENT PLACEMENT/CHECK/CHANGE 01/18/2022 IR Nephroureteral (NU) Stent Placement Check/Change 01/18/2022 Guillermo Nice MD [facility] PRO [facility] EBUS GUIDED SAMPL 3/> NODE STATION/STRUX N/A 04/04/2021 BRONCH, W ENDOBRONCHIAL ULTRASOUND (EBUS) GUIDED SAMPLING, 3+ NODES (WRVU 5.21) performed by Alonzo Cevallos MD at [facility] MAIN OR PRO BRONCHOSCOPY, DIAGNOSTIC W LAVAGE N/A 04/04/2021 BRONCHOSCOPY, RIGID OR FLEXIBLE, WITH BRONCHIAL ALVEOLAR LAVAGE (WRVU 2.88) performed by Alonzo Cevallos MD at [facility] MAIN OR Social History and Habits: [...] PM EDT Office Visit Hematology/Oncology at [address] [phone] Chase Mckay MD [facility] DR HEMATOLOG[place] [address] documented as of this encounter Procedures Procedure [...] abnormal results of thyroid function study Primary malignant neoplasm of left lower lobe [...] mLs documented in this encounter Care Teams Boilermaker'S Assistant Relationship Specialty Start Date End Date Tavia Ramirez, IRON PILER [facility] [place] [address] PCP - General Family Medicine 06/11/22 documented as of this encounter
--- OUTSIDE RECORDS SUMMARY | 2023-12-08 03:32 | XMS_ITS | Encounter Summary ---
Author Organization [facility] Address [facility] [place] [address] Care Team Providers Care Bleach Boiler Puller Name Role Phone James Tavia Foster APRN Primary Care Provider Encounter Details Date Type Department Care Team (Late st Contact Info) Description 10/16/2023 Telephone Hematology/Oncology at [address] [phone] Marci Chen RN Social History Tobacco Use Types Packs/Day Years Used Date Smoking Tobacco: Former Cigarettes Q uit: 07/04/2014 Smokeless Tobacco: Never Alcohol Use Standard Drinks/Week Comments Not Currently 0 (1 standard drink = 0.6 oz pur e alcohol) [facility] Utilities Answer Date Recorded In the past [...] CT chest done at urgent care in [place]. Saw Tavia Boyd there. [phone] documented in this encounter Plan of Treatment Upcoming Encounters Date Type Department Care Team (Late st Contact Info) Description 12/08/2023 3:30 PM EDT Office Visit Hematology/Oncology at [address] [phone] Chase Mckay MD [facility] [address] [place] [address] documented as of this encounter Visit Diagnoses Not on filedocumented in this encounter Care Teams Bleach Boiler Puller Relationship Specialty Start Date End Date Tvaia Ramirez, ALESSANDRO [facility] [place] [address] PCP - General Family Medicine 06/11/22 documented as of this encounter
--- OUTSIDE RECORDS SUMMARY | 2023-12-08 03:32 | XMS_ITS | Encounter Summary ---
[place] [address] Care Team Providers Care Polls Or Surveys Interviewer Name Role Phone Tavia Ramirez APRN Primary Care Provider [phone] Reason for Referral * Diagnostic Test (Routine) - Closed Specialty Diagnoses / Procedures Referred By Contac t Referred To Contact Radiology Diagnoses Metastatic urothelial carcinoma Procedures IR Nephrogram/Nephrostomy Tube Exchange Bilateral Guillermo Nice MD [facility] [place] [address] [place] [address] Referral ID Status Reason Start Date Expiration Date V isits Requested Visits Authorized [id number] Closed Specialty Service Requested 08/07/2023 02/05/2025 1 1 Reason for Visit * Diagnostic Test (Routine) - Closed Specialty Diagnoses / Procedures Referred By Contac t Referred To Contact Radiology Diagnoses Metastatic urothelial carcinoma Procedures IR Nephrogram/Nephrostomy Tube Exchange Bilateral Guillermo Nice MD [facility] [place] [address] [place] [address] Referral ID Status Reason Start Date Expiration Date V isits Requested Visits Authorized [id number] Closed Specialty Service Requested 08/07/2023 02/05/2025 1 1 Encounter Details Date Type Department Care Team (Latest Contact Info) Description 09/18/2023 10:50 AM EDT - 09/18/2023 11:59 PM EDT Hospital Encounter Radiology at [facility] [place] [address] Guillermo Nice MD [facility] [place] [address] Metastatic urothelial carcinoma; BRITNI (acute kidney injury); [...] the past 12 months has th e [employer], gas, oil, or water [employer] threatened to shut off services in your [...] from the original note were not included. [facility] Vascular and Interventional Radiology [...] connecting tubing from the drain. Put a scallop dredger on both the drain and the bag. [...] is during regular office hours, please call [phone]. If it is after regular office hours, or on weekends or holidays, please call [phone] and ask to speak to the Manager Business Continuity ribbon cutter for Interventional Radiology. You have received medication [...] of : 1950 AGE: 73 y.o. Address: [address] [place] [phone] (home) Mobile: Telephone Information: Referring Provider: Guillermo Nice REASON FOR VISIT: Order Questions Answers Where will study be performed? [facility] Radiology [120] Reason for exam and [...] PM EDT Office Visit Hematology/Oncology at [address] [address] Chase Mckay MD [facility] DR [place] [address] documented as of this encounter Procedures Procedure [...] mLs documented in this encounter Care Teams Polls Or Surveys Interviewer Relationship Specialty Start Date End Date Tavia Ramirez, CARBURIZING FURNACE OPERATOR [place] [address] PCP - General Family Medicine 06/11/22 documented as of this encounter
--- OUTSIDE RECORDS SUMMARY | 2023-12-08 03:32 | XMS_ITS | Encounter Summary ---
Author Organization [facility] Address [facility] [place] [address] Care Team Providers Care Web Operations Manager Name Role Phone James Tavia Foster APRN Primary Care Provider [phone] Encounter Details Date Type Department Care Team (Latest Contact Info) Description 08/25/2023 Travel Social History Tobacco Use Types Packs/Day Years Used Date Smoking Tobacco: Former Cigarettes Q uit: 07/04/2014 Smokeless Tobacco: Never Alcohol Use Standard Drinks/Week Comments Not Currently 0 (1 standard drink = 0.6 oz pur e alcohol) [facility] Utilities Answer Date Recorded In the [...] Office Visit Hematology/Oncology at [address] [address] Chase Mckay MD [facility] DR HEMATOLOGY [place] [address] documented as of this encounter Visit Diagnoses Not on filedocumented in this encounter Care Teams Web Operations Manager Relationship Specialty Start Date End Date Tavia Ramirez [place] [address] PCP - General Family Medicine 06/11/22 documented as of this encounter
--- OUTSIDE RECORDS SUMMARY | 2023-12-08 03:32 | XMS_ITS | Encounter Summary ---
Author Organization [facility] Address [facility] [place] [address] Care Team Providers Care Fresh Work Inspector Name Role Phone Tavia Ramirez APRN Primary Care Provider [phone] Reason for Visit * Reason Onset Date Comments Follow-up 08/11/2023 Encounter Details Date Type Department Care Team (Late st Contact Info) Description 08/11/2023 Telephone Hematology/Oncology at [address] [phone] Pamella East RN Follow-up Social History Tobacco Use Types Packs/Day Years Used Date Smoking Tobacco: Former Cigarettes Q uit: 07/04/2014 Smokeless Tobacco: Never Alcohol Use Standard Drinks/Week Comments Not Currently 0 (1 standard drink = 0.6 oz pur e alcohol) [facility] Utilities Answer Date Recorded In the [...] slept in a assisted (including now)? No 08/08/2023 IPV Inpatient Questions [...] her Krazati, she had been admitted to [facility] forpyelonephritis . She is feeling better now. [...] PM EDT Office Visit Hematology/Oncology at [address] [phone] Chase Mckay MD [facility] [address] [place] [address] documented as of this encounter Visit Diagnoses Not on filedocumented in this encounter Care Teams Fresh Work Inspector Relationship Specialty Start Date End Date Tavia Ramirez, ALESSANDRO [address] [place] [address] PCP - General Family Medicine 06/11/22 documented as of this encounter
--- OUTSIDE RECORDS SUMMARY | 2023-12-08 03:32 | XMS_ITS | Encounter Summary ---
Author Organization [facility] Address [facility] [place] [address] Care Team Providers Care Wedding Day Coordinator Name Role Phone James Tavia Foster APRN Primary Care Provider [phone] Encounter Details Date Type Department Care Team [...] PM EDT Office Visit Hematology/Oncology at [address] [phone] Chase Mckay MD [facility] DR [place] [address] documented as of this encounter Visit Diagnoses Not on filedocumented in this encounter Care Teams Wedding Day Coordinator Relationship Specialty Start Date End Date Tavia Ramirez [place] [place] [address] PCP - General Family Medicine 06/11/22 documented as of this encounter
--- OUTSIDE RECORDS SUMMARY | 2023-12-08 03:32 | XMS_ITS | Encounter Summary ---
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 Thoracic Oncology [facility] [place] [address] [phone] Barb Bullard is being seen for the [...] 06.23.23. Briefly interrupted during an admission in [facility] for pyelobephritis. Resumed in 08/13/23 at 400mgdaily and well tolerated PET scan personally reviewed from 08/19/23 with excellent response to therapy. EKG at [facility] with Qtc 466 Plan: - Labs and toxicities assessed and acceptable for ongoing treatment. -Continue on adadrasib 400 mg daily - EKG in 4-5 weeks and labs and then RTC - Restage in late September/early October. Chase Mckay MD, [place] 08/25/2023 Medical Oncology & Hematology [facility] [facility] CC: Atiya Ramirez, PHOTOGRAPHERS' MODEL HPI/Interval History/Subjective: Last seen 07/21/2023 Admitted for [...] Social History/Support Network: Home situation: Lives in [facility]. Lives with her daughter. 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 Tobacco use: 30 pk year hx quit 2014 Alcohol use: Does not drink Drug use: None Financial Distress: Medicare A/B has financial assistance through the hospitals so not worried about food Long Term or ability to pay for her cancer [...] of left lower lobe mass lung debulking ([id number]), the immunostain findings in the present case [...] of left lower lobe mass lung debulking ([id number]), the immunostain findings in the present case [...] PM EDT Office Visit Hematology/Oncology at [address] [phone] Chase Mckay MD [facility] [place] [address] Scheduled Orders Name Type Priority Associated Diagnoses [...] other medications 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
--- OUTSIDE RECORDS SUMMARY | 2023-12-08 03:32 | XMS_ITS | Encounter Summary ---
Author Organization [facility] Address [facility] [place] [address] Care Team Providers Care Shaker Repairer Name Role Phone James Tavia Foster APRN Primary Care Provider [phone] Encounter Details Date Type Department Care Team (Latest Contact Info) Description 10/31/2023 Travel Social History Tobacco Use Types Packs/Day Years Used Date Smoking Tobacco: Former Cigarettes Q uit: 07/04/2014 Smokeless Tobacco: Never Alcohol Use Standard Drinks/Week Comments Not Currently 0 (1 standard drink = 0.6 oz pur e alcohol) [facility] Utilities Answer Date Recorded In the [...] PM EDT Office Visit Hematology/Oncology at [address] [phone] Chase Mckay MD [facility] DR HEMATOLOGY [place] [address] documented as of this encounter Visit Diagnoses Not on filedocumented in this encounter Care Teams Shaker Repairer Relationship Specialty Start Date End Date Tavia Ramirez APR[place] [address] PCP - General Family Medicine 06/11/22 documented as of this encounter
--- OUTSIDE RECORDS SUMMARY | 2023-12-08 03:32 | XMS_ITS | Encounter Summary ---
Author Organization [facility] Address [facility] [place] [address] Care Team Providers Care Dna Sequencing Associate Name Role Phone Tavia Ramirez ALESSANDRO Primary Care Provider [phone] Encounter Details Date Type Department Care Team (Late st Contact Info) Description 08/21/2023 Notes Only Radiology at [facility] [place] [phone] Jose West MD [facility] [place] [address] Social History Tobacco Use Types Packs/Day Years Used Date Smoking Tobacco: Former Cigarettes Q uit: 07/04/2014 Smokeless Tobacco: Never Alcohol Use Standard Drinks/Week Comments Not Currently 0 (1 standard drink = 0.6 oz pur e alcohol) [facility] Utilities Answer Date Recorded In [...] Placement 04/02/2021 Yuval Sinclair PA [facility] INTERVENTIONL RAD IR NEPHROGRAM/NEPHROSTOMY TUBE EXCHANGE BILATERAL 04/24/2022 IR Nephrogram/Nephrostomy Tube Exchange Bilateral 04/24/2022 Alin Dillard MD [facility] INTERVENTIONL RAD IR NEPHROGRAM/NEPHROSTOMY TUBE EXCHANGE BILATERAL 07/26/2022 IR Nephrogram/Nephrostomy Tube Exchange Bilateral 07/26/2022 Robe Hope PA [facility] INTERVENTIONL RAD IR NEPHROGRAM/NEPHROSTOMY TUBE EXCHANGE BILATERAL 10/18/2022 IR Nephrogram/Nephrostomy Tube Exchange Bilateral 10/18/2022 Alexis De La Cruz MD [facility] INTERVENTIONL RAD IR NEPHROGRAM/NEPHROSTOMY TUBE EXCHANGE BILATERAL 12/11/2022 IR Nephrogram/Nephrostomy Tube Exchange Bilateral 12/11/2022 Alexis De La Cruz MD [facility] INTERVENTIONL RAD IR NEPHROGRAM/NEPHROSTOMY TUBE EXCHANGE BILATERAL 02/13/2023 IR Nephrogram/Nephrostomy Tube Exchange Bilateral 02/13/2023 Alin Dillard MD [facility] INTERVENTIONL RAD IR NEPHROGRAM/NEPHROSTOMY TUBE EXCHANGE BILATERAL 04/04/2023 IR Nephrogram/Nephrostomy Tube Exchange Bilateral Alin Dillard MD [facility] INTERVENTIONL RAD IR NEPHROGRAM/NEPHROSTOMY TUBE EXCHANGE BILATERAL 04/25/2023 IR Nephrogram/Nephrostomy Tube Exchange Bilateral [facility] INTERVENTIONL RAD IR NEPHROGRAM/NEPHROSTOMY TUBE EXCHANGE BILATERAL 06/19/2023 IR Nephrogram/Nephrostomy Tube Exchange Bilateral Alexis De La Cruz MD [facility] INTERVENTIONL RAD IR NEPHROGRAM/NEPHROSTOMY TUBE EXCHANGE BILATERAL 07/09/2023 IR Nephrogram/Nephrostomy Tube Exchange Bilateral 07/09/2023 Alin Dillard MD [facility] INTERVENTIONL RAD IR NEPHROGRAM/NEPHROSTOMY TUBE EXCHANGE BILATERAL 08/07/2023 IR Nephrogram/Nephrostomy Tube Exchange Bilateral [facility] INTERVENTIONL RAD IR NEPHROSTOMY TUBE PLACEMENT PERCUTANEOUS BILATERAL 02/20/2021 IR Nephrostomy Tube Placement Percutaneous Bilateral [facility] INTERVENTIONL RAD IR NEPHROURETERAL (NU) STENT PLACEMENT/CHECK/CHANGE 07/13/2021 IR Nephroureteral (NU) Stent Placement Check/Change 07/13/2021 Alexis De La Cruz MD [facility] INTERVENTIONLRAD IR NEPHROURETERAL (NU) STENT PLACEMENT/CHECK/CHANGE 10/23/2021 IR Nephroureteral (NU) Stent Placement Check/Change 10/23/2021 Zeferino Rosado MD [facility] INTERVENTIONL RAD IR NEPHROURETERAL (NU) STENT PLACEMENT/CHECK/CHANGE 01/18/2022 IR Nephroureteral (NU) Stent Placement Check/Change 01/18/2022 Guillermo Nice MD [facility] INTERVENTIONLRAD PRO [facility] EBUS GUIDED SAMPL 3/> NODE STATION/STRUX N/A 04/04/2021 BRONCH, W ENDOBRONCHIAL ULTRASOUND (EBUS) GUIDED SAMPLING, 3+ NODES (WRVU 5.21) performed by Alonzo Cevallos MD at [facility] MAIN OR PRO BRONCHOSCOPY, DIAGNOSTIC W LAVAGE N/A 04/04/2021 BRONCHOSCOPY, RIGID OR FLEXIBLE, WITH BRONCHIAL ALVEOLAR LAVAGE (WRVU 2.88) performed by Alonzo Cevallos MD at [facility] MAIN OR Medications: Current Outpatient [...] PM EDT Office Visit Hematology/Oncology at [address] [phone] Chase Mckay MD [facility] DR HEMATOLOGY [place] [address] documented as of this encounter Visit Diagnoses Not on filedocumented in this encounter Care Teams Dna Sequencing Associate Relationship Specialty Start Date End Date Tavia Ramirez [place] [address] [place] [address] PCP - General Family Medicine 06/11/22 documented as of this encounter
--- OUTSIDE RECORDS SUMMARY | 2023-12-08 03:32 | XMS_ITS | Encounter Summary ---
Author Organization [facility] Address [facility] [place] [address] Care Team Providers Care Community Living Coach Name Role Phone James Tavia Foster APRN Primary Care Provider [phone] Encounter Details Date Type Department Care Team (Latest Contact Info) Description 09/13/2023 Travel Social History Tobacco Use Types Packs/Day Years Used Date Smoking Tobacco: Former Cigarettes Q uit: 07/04/2014 Smokeless Tobacco: Never Alcohol Use Standard Drinks/Week Comments Not Currently 0 (1 standard drink = 0.6 oz pur e alcohol) [facility] Utilities Answer Date Recorded In [...] PM EDT Office Visit Hematology/Oncology at [address] [phone] Chase Mckay MD [facility] DR [place]AT[place] [address] documented as of this encounter Visit Diagnoses Not on filedocumented in this encounter Care Teams Community Living Coach Relationship Specialty Start Date End Date Tavia Ramirez APRN [place] [address] PCP - General Family Medicine 06/11/22 documented as of this encounter
--- OUTSIDE RECORDS SUMMARY | 2023-12-08 03:32 | XMS_ITS | Encounter Summary ---
Author Organization [facility] Address [facility] [place] [address] Care Team Providers Care Seam Hammerer Name Role Phone James Tavia Foster APRN Primary Care Provider [phone] Encounter Details Date Type Department Care Team (Latest Contact Info) Description 08/21/2023 Travel Social History Tobacco Use Types Packs/Day Years Used Date Smoking Tobacco: Former Cigarettes Q uit: 07/04/2014 Smokeless Tobacco: Never Alcohol Use Standard Drinks/Week Comments Not Currently 0 (1 standard drink = 0.6 oz pur e alcohol) [facility] Utilities Answer Date Recorded In the [...] PM EDT Office Visit Hematology/Oncology at [address] [phone] Chase Mckay MD [facility] DR HEMATOLOGY [place] [address] documented as of this encounter Visit Diagnoses Not on filedocumented in this encounter Care Teams Seam Hammerer Relationship Specialty Start Date End Date Tavia Ramirez [place] [address] PCP - General Family Medicine 06/11/22 documented as of this encounter
--- OUTSIDE RECORDS SUMMARY | 2023-12-08 03:32 | XMS_ITS | Encounter Summary ---
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 Procedures NM PET CT Skull Base to Mid-thigh Chase Mckay MD [facility] DR HEMATOLOGY [place] [address] [place] [address] Referral ID Status Reason Start Date Expiration Date V isits Requested Visits Authorized [id number] Closed Specialty Service Requested 07/21/2023 01/20/2025 1 1 Encounter Details Date Type Department Care Team (Late st Contact Info) Description 08/19/2023 10:57 AM EDT - 08/19/2023 11:59 PM EDT Hospital Encounter [place] [address] Chase Mckay MD [facility] DR HEMATOLOGY [place] [address] Discharge Disposition: Home Social History [...] PM EDT Office Visit Hematology/Oncology at [address] [phone] Chase Mckay MD [facility] DR HEMATOLOGY [place] [address] documented as of this encounter Procedures Procedure Name Priority Date/Time Associated Diagnosis Comments NM PET CT SKULL BASE TO MID-THIGH ([facility]) Routine 08/19/2023 1:07 PM EDT 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 POCT GLUCOSE Routine 08/19/2023 11:06 AM EDT documented in this encounter Results * POCT Glucose (08/19/2023 11:06 AM EDT) Glucose, POC 98 65 - 199 mg/dL [facility] Comment: Supplemental ranges: <140 mg/dL before meals <180 mg/dL all other times of the day Blood 08/19/2023 11:0 6 AM EDT 08/19/2023 11:06 AM EDT Chase Mckay MD POINT OF CARE TEST O COSMO Performing Organization Address City/State/[facility] Co de Phone Number [facility] [place] [address] documented in this encounter Visit Diagnoses Not on filedocumented in this encounter Care Teams Reproduction Artist Relationship Specialty Start Date End Date Tavia Ramirez, PULP MILL OPERATOR [facility] [place] [address] PCP - General Family Medicine 06/11/22 documented as of this encounter
--- OUTSIDE RECORDS SUMMARY | 2023-12-08 03:32 | XMS_ITS | Encounter Summary ---
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 Metastatic urothelial carcinoma Procedures NM PET CT Skull Base to Mid-thigh Dianne Jacob APRN [address] [place] [address] DR [place] [address] [place] [address] Referral ID Status Reason Start Date Expiration Date V isits Requested Visits Authorized [id number] Closed Specialty Service Requested 09/29/2023 03/30/2025 1 1 Encounter Details Date Type Department Care Team (Late st Contact Info) Description 09/29/2023 1:30 PM EDT Office Visit Hematology/Oncology at [address] [phone] Chase Mckay MD [facility] DR HEMATOLOGY [place] [address] Dianne Jacob APRN [address] [place] [address] DR HEMATOLOGY AND ONCOLOGY [place], [place] [id number] 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 [place] [address] [phone] Barb Bullard is being seen for the [...] 06.23.23. Briefly interrupted during an admission in [facility] for pyelonephritis. Resumed in 08/13/23 at 400mgdaily and well tolerated PET scan reviewed from 08/19/23 with excellent response to therapy. [place] [facility] [place] with Qtc 466 Plan: - Labs and toxicities assessed and acceptable for ongoing treatment. - Continue on adadrasib 400 mg daily - RTC in 6 weeks with PET, labs, and EKG. Continuing close follow up of QTC interval (most recent 487, mildly elevated but stable) Dianne Jacob APRN 09/29/2023 Medical Oncology & Hematology [facility] CC: Atiya Ramirez, ALESSANDRO HPI/Interval History/Subjective: Last [...] Social History/Support Network: Home situation: Lives in [facility]. Lives with her daughter. 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 Tobacco use: 30 pk year hx quit 2014 Alcohol use: Does not drink Drug use: None Financial Distress: Medicare A/B has financial assistance through the hospitals so not worried about food Prison or ability to pay for her cancer [...] of left lower lobe mass lung debulking ([id number]), the immunostain findings in the present case [...] of left lower lobe mass lung debulking ([id number]), the immunostain findings in the present case [...] PM EDT Office Visit Hematology/Oncology at [address] [phone] Chase Mckay MD [facility] DR HEMATOLOGY [place] [address] Scheduled Orders Name Type Priority Associated Diagnoses Orde r Schedule EKG 12 Lead ECG Routine High risk medication use Prolonged QT interval Expected: 11/03/2023, Expires: 12/30/2023 documented as of this encounter Results * NM PET CT Skull Base to Mid-thigh (11/03/2023 1:26 PM EDT) [facility] WORKSTATION ID [id number] [facility] Anatomical Region Laterality Modality Positron Emissio n [...] have questions please contact the health career services officer that requested your imaging first. ? Narrative 11/05/2023 11:29 AM EDT EXAMINATION: NM PET CT STANDARD SKULL BASE TO MID-THIGH CLINICAL HISTORY: NSCLC Metastatic non-small cell lung cancer subsequent treatment evaluation. Also history of bladder cancer. C34.32, Malignant neoplasm of lower lobe, left bronchus or lung - C79.10, Secondary malignant neoplasm of unspecified urinary organs. TECHNIQUE: Following IV injection of 59-mltinj-6-deoxyglucose (FDG) a standard uptake of approximately 60 [...] urinary organs. TECHNIQUE: Following IV injection of 29-vldsus-5-deoxyglucose (FDG) astandard uptake of approximately 60 minutes, [...] who have questions please contactthe health career services officer that requested your imaging first. Dianneisabella Jacob MANAGER MARKETING COMMUNICATION IMG PET ORDERABL ES * (ABNORMAL) Comprehensive metabolic panel (non-fasting) (11/03/2023 11:27 AM EDT) Glucose 99 65 - 199 mg/dL [facility] Comment:Diabetes: >=200 mg/d L plus symptoms Blood Urea Nitrogen 25(H) 8 - 18 mg/dL [facility] Creatinine 2.03(H) 0.70 - 1.20 mg/dL [facility] Sodium 139 135 - 145 mmol/L [facility] Potassium 5.0 3.5 - 5.0 mmol/L [facility] Comment: Please note: ??Patients with WBC >100,000 may have falsely elevated Potassium levels. ??For accurate Potassium quantification in these patients send serum separator tube (gold top) for subsequent determinations. ??Contact the Clinical Chemistry Laboratory if there are any questions. Chloride 109(H) 98 - 107 mmol/L [facility] Carbon Dioxide 20(L) 22 - 31 mmol/L [facility] Anion Gap 10 5 - 15 mmol/L [facility] Calcium 9.4 8.5 - 10.5 mg/dL [facility] Protein, Total 8.2(H) 6.1 - 8.0 g/dL [facility] Albumin 4.0 3.2 - 5.2 g/dL [facility] Aspartate Aminotransferase 10 0 - 30 unit/L [facility] Alanine Aminotransferase 7 0 - 30 unit/L [facility] Alkaline Phosphatase 108(H) 35 - 105 unit/L [facility] Bilirubin, Total 0.8 0.2 - 1.3 mg/dL [facility] Est Glomerular Filtration Rate 26(L) >=60 mL/min/1. 73 m?? [facility] Comment: This patient's estimated [...] Agency Comment Spec In Lab Dianne Jacob MANAGER MARKETING COMMUNICATION CHEMISTRY ORDERA BLES [facility] [place] [address] documented in this encounter Visit Diagnoses Diagnosis [...] pleura documented in this encounter Care Teams Cruller Maker Relationship Specialty Start Date End Date Tavia Ramirez, MANAGER MARKETING COMMUNICATION [place] [address] [place] [address] PCP - General Family Medicine 06/11/22 documented as of this encounter
--- OUTSIDE RECORDS SUMMARY | 2023-12-08 03:32 | XMS_ITS | Encounter Summary ---
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 Metastatic urothelial carcinoma Procedures NM PET CT Skull Base to Mid-thigh Dianne Jacob APRN [address] [place] [address] DR HEMATOLOGY [place] [address] [place] [address] Referral ID Status Reason Start Date Expiration Date V isits Requested Visits Authorized [id number] Closed Specialty Service Requested 09/29/2023 03/30/2025 1 1 Encounter Details Date Type Department Care Team (Late st Contact Info) Description 11/03/2023 11:56 AM EDT - 11/03/2023 11:59 PM EDT Hospital Encounter [place] [address] Dianne Jacob CEMENT MASON APPRENTICE [address] [place] [address] DR HEMATOLOGY AND ONCOLOGY [place], [place] [phone] Discharge Disposition: Home Social History Tobacco Use [...] in a retirement (including now)? 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 Metastatic urothelial carcinoma POCT GLUCOSE Routine 11/03/2023 12:05 PM EDT documented in this encounter Results * POCT Glucose (11/03/2023 12:05 PM EDT) Glucose, POC 101 65 - 199 mg/dL [facility] Comment: Supplemental ranges: <140 mg/dL before meals <180 mg/dL all other times of the day Blood 11/03/2023 12:0 5 PM EDT 11/03/2023 12:05 PM EDT Dianne Jacob CEMENT MASON APPRENTICE POINT OF CARE TE ST ORDERABLES [facility] [place] [address] documented in this encounter Visit Diagnoses Not on filedocumented in this encounter Care Teams Supervisor Of Way Relationship Specialty Start Date End Date Tavia Ramirez, CEMENT MASON AP[place] [address] PCP - General Family Medicine 06/11/22 documented as of this encounter
--- OUTSIDE RECORDS SUMMARY | 2023-12-08 03:32 | XMS_ITS | Encounter Summary ---
Author Organization [facility] Address [facility] [place] [address] Care Team Providers Care Payroll Tax Specialist Name Role Phone James Tavia Foster APRN Primary Care Provider [phone] Encounter Details Date Type Department Care Team (Latest Contact Info) Description 08/13/2023 Travel Social History Tobacco Use Types Packs/Day Years Used Date Smoking Tobacco: Former Cigarettes Q uit: 07/04/2014 Smokeless Tobacco: Never Alcohol Use Standard Drinks/Week Comments Not Currently 0 (1 standard drink = 0.6 oz pur e alcohol) [facility] Utilities Answer Date Recorded In the [...] PM EDT Office Visit Hematology/Oncology at [address] [phone] Chase Mckay MD [facility] DR [place] [address] documented as of this encounter Visit Diagnoses Not on filedocumented in this encounter Care Teams Payroll Tax Specialist Relationship Specialty Start Date End Date Tavia Ramirez [place] [address] [place] [address] PCP - General Family Medicine 06/11/22 documented as of this encounter
--- OUTSIDE RECORDS SUMMARY | 2023-12-08 03:33 | XMS_ITS | Encounter Summary ---
Author Organization [facility] Address [facility] [address] Care Team Providers Care Engineer Intern Name Role Phone James Tavia Foster APRN Primary Care Provider [phone] Encounter Details Date Type Department Care Team [...] PM EDT Office Visit Hematology/Oncology at [address] [phone] Chase Mckay MD [facility] DR HEMATOLOGY [place] [address] documented as of this encounter Visit Diagnoses Not on filedocumented in this encounter Care Teams Engineer Intern Relationship Specialty Start Date End Date Tavia Ramirez [place] [place] [address] PCP - General Family Medicine 06/11/22 documented as of this encounter
--- OUTSIDE RECORDS SUMMARY | 2023-12-08 03:33 | XMS_ITS | Encounter Summary ---
Author Organization [facility] Address [facility] [place] [address] Care Team Providers Care Circular Sawyer Helper Name Role Phone Tavia Ramirez APRN Primary Care Provider [phone] Reason for Visit * Reason Comments IV Medication Encounter Details Date Type Department Care Team (Late st Contact Info) Description 06/09/2023 2:00 PM EST Infusion Hematology Oncology at [address] [phone] Urothelial cancer; Metastatic urothelial carcinoma; [...] by provider. LAB DATA: Done today at [facility] IV ACCESS: Port accessed off site. Flushes [...] PM EDT Office Visit Hematology/Oncology at [address] [phone] Chase Mckay MD [facility] DR [place] [address] documented as of this encounter [...] Fri06/09/23 at 1610, Until Fri06/09/23 at 1812, Shredder Tender Peat, Routine Given 06/09/2023 4:10 PM EST 20 mLs sodium chloride 0.9% infusion 500 mL/hr, Intravenous, CONTINUOUS, Starting on Fri06/09/23 at 1415, Until Fri06/09/23 at 1812, Please infuse 1 L of normal saline of 1-2 hours New Bag 06/09/2023 2:00 PM EST 500 mL/hr 500 mL/hr documented in this encounter Care Teams Circular Sawyer Helper Relationship Specialty Start Date End Date Tavia Ramirez, GEOLOGIST PETROLEUM [address] [place] [address] PCP - General Family Medicine 06/11/22 documented as of this encounter
--- OUTSIDE RECORDS SUMMARY | 2023-12-08 03:33 | XMS_ITS | Encounter Summary ---
Author Organization [facility] Address [facility] [place] [address] Care Team Providers Care Extrusion Press Adjuster Name Role Phone James Tavia Foster APRN Primary Care Provider [phone] Encounter Details Date Type Department Care Team [...] in a usp (including now)? No 03/27/2021 DH IPV Inpatient [...] PM EDT Office Visit Hematology/Oncology at [address] [phone] Chase Mckay MD [facility] DR [place] [address] documented as of this encounter Visit Diagnoses Not on filedocumented in this encounter Care Teams Extrusion Press Adjuster Relationship Specialty Start Date End Date Tavia Ramirez APRN [address] [place] [address] PCP - General Family Medicine 06/11/22 documented as of this encounter
--- OUTSIDE RECORDS SUMMARY | 2023-12-08 03:33 | XMS_ITS | Encounter Summary ---
Author Organization [facility] [place] [address] Care Team Providers Care Carpenter Bridge Name Role Phone Tavia Ramirez ALESSANDRO Primary Care Provider [phone] Encounter Details Date Type Department Care Team (Late st Contact Info) Description 07/09/2023 Orders [place] [phone] Jose Miguel Rodriguez MD [facility] DR DIAGNOSTIC [place] [address] Social History Tobacco Use Types Packs/Day Years [...] a senior care (including now)? No 03/27/2021 DH IPV Inpatient [...] PM EDT Office Visit Hematology/Oncology at [address] [phone] Chase Mckay MD [facility] DR HEMATOLOGY [place] [address] documented as of this encounter Visit Diagnoses Not on filedocumented in this encounter Care Teams Carpenter Bridge Relationship Specialty Start Date End Date Tavia Ramirez [place] [address] [place] [address] PCP - General Family Medicine 06/11/22 documented as of this encounter
--- OUTSIDE RECORDS SUMMARY | 2023-12-08 03:33 | XMS_ITS | Encounter Summary ---
Author Organization [facility] Address [facility] [place] [address] Care Team Providers Care Manager Gallery Name Role Phone James Tavia Foster APRN Primary Care Provider [phone] Encounter Details Date Type Department Care Team (Late st Contact Info) Description 06/09/2023 1:30 PM EST Office Visit Hematology/Oncology at [address] [phone] Chase Mckay MD [facility] DR HEMATOLOGY [place] [address] Dianne Jacob APRN [address] [place] [address] DR HEMATOLOGY AND ONCOLOGY [place], [place] [id number] Primary malignant neoplasm of left lower lobe [...] original note were not included. [place] [address] [phone] Barb Bullard is being seen for the [...] Trial (OMERO-7) that was just presented at [facility] in Fall 2022 and which demonstrated efficacy [...] Chase Mckay MD, [place] 06/09/2023 Thoracic Oncology [facility] CC: Jose Patel MD HPI/Interval History/Subjective: [...] to have right tube urgently repal[place] [facility] last week. Now doing better No side [...] Social History/Support Network: Home situation: Lives in [place]. Lives with her daughter. 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 Tobacco use: 30 pk year hx quit 2014 Alcohol use: Does not drink Drug use: None Financial Distress: Medicare A/B has financial assistance through the hospitals so not worried about food Halfway or ability to pay for her cancer [...] of left lower lobe mass lung debulking ([id number]), the immunostain findings in the present case [...] of left lower lobe mass lung debulking ([id number]), the immunostain findings in the present case [...] PM EDT Office Visit Hematology/Oncology at [address] [phone] Chase Mckay MD [facility] DR HEMATOLOGY [place] [address] documented as of this encounter Visit Diagnoses Diagnosis 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 Malignant neoplasm of lower lobe, bronchus, or lung 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 Malignant neoplasm of lower lobe, bronchus, or lung Metastatic urothelial carcinoma 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
--- OUTSIDE RECORDS SUMMARY | 2023-12-08 03:33 | XMS_ITS | Encounter Summary ---
Author Organization [facility] [address] Care Team Providers Care Mechanical Designer Name Role Phone Tavia Ramirez APRN Primary Care Provider [phone] Reason for Visit * Reason Onset Date Comments Follow-up 05/28/2023 S/p ED visit Encounter Details Date Type Department Care Team (Late st Contact Info) Description 05/28/2023 Telephone Hematology/Oncology at [address] [phone] Marci Chen RN Follow-up (S/p [...] EST ----- Regarding: call pt Went to [facility] ED for dehydration 05/27, please call and check on status, thanks! documented in this encounter Plan of Treatment Upcoming Encounters Date Type Department Care Team (Late st Contact Info) Description 12/08/2023 3:30 PM EDT Office Visit Hematology/Oncology at [address] [phone] Chase Mckay MD [facility] DR HEMATOLOGY [place] [address] documented as of this encounter Visit Diagnoses Not on filedocumented in this encounter Care Teams Mechanical Designer Relationship Specialty Start Date End Date Tavia Ramirez [place] [address] [place] [address] PCP - General Family Medicine 06/11/22 documented as of this encounter
--- OUTSIDE RECORDS SUMMARY | 2023-12-08 03:33 | XMS_ITS | Encounter Summary ---
Author Organization [facility] Address [facility] Jose Roberto pelaez [place] [id number] Care Team Providers Care Community Service Technician Name Role Phone James Tavia Foster APRN Primary Care Provider [phone] Reason for Visit * Reason Comments Flank Pain * Auth/Cert (Routine) Specialty Diagnoses / Procedures Referred By Contac t Referred To Contact Diagnoses BRITNI (acute kidney injury) [place] [address] [facility] Referral ID Status Reason Start Date Expiration Date Visits Re quested Visits Authorized [id number] 1 1 Encounter Details Date Type Department Care Team (Latest Contact Info) Description 08/07/2023 3:16 AM EDT - 08/10/2023 10:55 AM EDT Hospital Encounter Medical Specialties Unit Level 2 [place] [id number] Cecile Edwards MD [facility] [place] [address] uY Corbett MD [facility] [place] [address] [place] [address] [place] [address] [place] [address] [place] [address] Pyelonephritis, acute Discharge Disposition: Home Social History Tobacco Use Types Packs/Day Years Used Date Smoking Tobacco: Former Cigarettes Q uit: 07/04/2014 Smokeless Tobacco: Never Alcohol Use Standard Drinks/Week Comments Not Currently 0 (1 standard drink = 0.6 oz pur e alcohol) [facility] Utilities Answer Date Recorded In [...] Mitesh Bullard Patient Age: 73 y.o. Language: Bermudian Race: White Ethnicity: Not nor Admit date: [...] please contact your inpatient physician through the [facility] [employer] . Issues afterhours and on weekends will [...] have questions please contact the health care consultant that requested your imaging first. Electronically signed by: Lena Wu MD, [facility] ([phone]), at 08/07/2023 7:11 AM Pending Studies and [...] Department Center 08/19/2023 10:45 AM ACCESS ROOM [facility] INF 3K [facility] 08/19/2023 12:00 PM [facility] NM PET HOLD Nuc Med [facility] Rad 08/19/2023 1:00 PM [facility] NM PET 1 Nuc Med [facility] Rad 08/25/2023 1:00 PM Chase Mckay MD [facility] 08/26/2023 1:00 PM Jose Lange MD [facility] Your Inpatient Doctor: CECILE EDWARDS, YU SANCHEZ, ISMAEL DISLA, AALIYAH COLUNGA, KYRA Avery Your Primary Care Provider: Tavia Ramirez APRN For questions regarding this document or issues relating to this hospitalization on the Medical Service, please contact your inpatient physician through the [facility] [employer] . Issues afterhours and on weekends will [...] any issues or concerns once you leave [facility], we apologize for any undue stress this may cause. Please do not hesitate to call your PCP office or seek further medical assistance if there are any immediate [facility]. This questionnaire is not meant to [...] AM ACCESS ROOM Hematology and Oncology at [facility] Arrive at: Tank Officer Area [phone] 08/19/2023 1:00 PM [facility] PET 1 Nuclear Medicine at [facility] Arrive at: 3Z RADIOLOGY [phone] 08/25/2023 1:00 PM Dianne Jacob APRN; Chase Mckay MD Hematology/Oncology at [facility] Arrive at: [facility] door at end of hallway [phone] 08/26/2023 1:00 PM Katherine Sepulveda APRN; Jose Lange MD Hematology/Oncology at [facility] Arrive at: [facility] door at end of hallway [phone] Discharge References/Attachments Nephrostomy Tube Care (Bermudian) documented in this encounter Discharge Instructions * [...] Department Center 08/19/2023 10:45 AM ACCESS ROOM [facility] INF 3K [facility] 08/19/2023 12:00 PM [facility] NM PET HOLD MH Nuc Med [facility] Rad 08/19/2023 1:00 PM [facility] NM PET 1 MH Nuc Med [facility] Rad 08/25/2023 1:00 PM Chase Mckay MD [facility] [place] [facility] 08/26/2023 1:00 PM Jose Lange MD [facility] Your Inpatient Doctor: CECILE EDWARDS, YU SANCHEZ, ISMAEL DISLA, KYRA GREEN Your Primary Care Provider: Tavia Ramirez APRN For questions regarding this document or issues relating to this hospitalization on the Medical Service, please contact your inpatient physician through the [facility] [employer] . Issues afterhours and on weekends will [...] any issues or concerns once you leave [facility], we apologize for any undue stress this may cause. Please do not hesitate to call your PCP office or seek further medical assistance if there are any immediate [facility]. This questionnaire is not meant to [...] through Care Everywhere. * Nephrostomy Tube Care (Bermudian) documented in this encounter Medications at Time [...] spent >30 minutes (Day of Discharge Code 40161) involved in the final examination of the [...] - 08/09/2023 8:44 AM EDT MEDICINE PAGER [phone] - [facility] Medicine Attending Daily Progress Note Page [phone] [...] CPR - Inpatient PCP Tavia Ramirez APRN [phone] Active Hospital Problems Diagnosis BRITNI (acute kidney injury) Resolved Hospital Problems No resolved problems to display. * Kristin Montejo PA - 08/08/2023 6:03 PM EDT MEDICINE PAGER [phone] - [facility] Hospital Medicine Attending Daily Progress Note Page [...] f/u with Oncologist Dr. Mckay for restart- [phone] Objective: Last value Range last 24 hrs [...] Attempt CPR - Inpatient PCP Tavia Ramirez, WAIST FITTER [phone] Active Hospital Problems Diagnosis BRITNI (acute kidney [...] IR Mediport Placement 04/02/2021 Yuval Sinclair PA [facility] INTERVENTIONL RAD IR NEPHROGRAM/NEPHROSTOMY TUBE EXCHANGE BILATERAL 04/24/2022 IR Nephrogram/Nephrostomy Tube Exchange Bilateral 04/24/2022 Alin Dillard MD [facility] INTERVENTIONL RAD IR NEPHROGRAM/NEPHROSTOMY TUBE EXCHANGE BILATERAL 07/26/2022 IR Nephrogram/Nephrostomy Tube Exchange Bilateral 07/26/2022 Robe Hope PA [facility] INTERVENTIONL RAD IR NEPHROGRAM/NEPHROSTOMY TUBE EXCHANGE BILATERAL 10/18/2022 IR Nephrogram/Nephrostomy Tube Exchange Bilateral 10/18/2022 Alexis De La Cruz MD [facility] INTERVENTIONL RAD IR NEPHROGRAM/NEPHROSTOMY TUBE EXCHANGE BILATERAL 12/11/2022 IR Nephrogram/Nephrostomy Tube Exchange Bilateral 12/11/2022 Alexis De La Cruz MD [facility] INTERVENTIONL RAD IR NEPHROGRAM/NEPHROSTOMY TUBE EXCHANGE BILATERAL 02/13/2023 IR Nephrogram/Nephrostomy Tube Exchange Bilateral 02/13/2023 Alin Dillard MD [facility] INTERVENTIONL RAD IR NEPHROGRAM/NEPHROSTOMY TUBE EXCHANGE BILATERAL 04/04/2023 IR Nephrogram/Nephrostomy Tube Exchange Bilateral Alin Dillard MD [facility] INTERVENTIONL RAD IR NEPHROGRAM/NEPHROSTOMY TUBE EXCHANGE BILATERAL 04/25/2023 IR Nephrogram/Nephrostomy Tube Exchange Bilateral [facility] INTERVENTIONL RAD IR NEPHROGRAM/NEPHROSTOMY TUBE EXCHANGE BILATERAL 06/19/2023 IR Nephrogram/Nephrostomy Tube Exchange Bilateral Alexis De La Cruz MD [facility] INTERVENTIONL RAD IR NEPHROGRAM/NEPHROSTOMY TUBE EXCHANGE BILATERAL 07/09/2023 IR Nephrogram/Nephrostomy Tube Exchange Bilateral 07/09/2023 Alin Dillard MD [facility] INTERVENTIONL RAD IR NEPHROSTOMY TUBE PLACEMENT PERCUTANEOUS BILATERAL 02/20/2021 IR Nephrostomy Tube Placement Percutaneous Bilateral [facility] INTERVENTIONL RAD IR NEPHROURETERAL (NU) STENT PLACEMENT/CHECK/CHANGE 07/13/2021 IR Nephroureteral (NU) Stent Placement Check/Change 07/13/2021 Alexis De La Cruz MD [facility] INTERVENTIONLRAD IR NEPHROURETERAL (NU) STENT PLACEMENT/CHECK/CHANGE 10/23/2021 IR Nephroureteral (NU) Stent Placement Check/Change 10/23/2021 Zeferino Rosado MD [facility] INTERVENTIONL RAD IR NEPHROURETERAL (NU) STENT PLACEMENT/CHECK/CHANGE 01/18/2022 IR Nephroureteral (NU) Stent Placement Check/Change 01/18/2022 Cecile Nice MD [facility] INTERVENTIONLRAD PRO [facility] EBUS GUIDED SAMPL 3/> NODE STATION/STRUX N/A 04/04/2021 BRONCH, W ENDOBRONCHIAL ULTRASOUND (EBUS) GUIDED SAMPLING, 3+ NODES (WRVU 5.21) performed by Alonzo Cevallos MD at [facility] MAIN OR PRO BRONCHOSCOPY, DIAGNOSTIC W LAVAGE N/A 04/04/2021 BRONCHOSCOPY, RIGID OR FLEXIBLE, WITH BRONCHIAL ALVEOLAR LAVAGE (WRVU 2.88) performed by Alonzo Cevallos MD at [facility] MAIN OR Social History: Social History Socioeconomic [...] Procedure Component Value Units Date/Time Urine culture [[id number]] (Abnormal) (Susceptibility) Collected: 07/10/23 0010 Lab Status: [...] using in critically ill patients. Blood culture [[id number]] Collected: 07/09/232040 Lab Status: Final result Specimen: Blood Updated: 07/14/232300 Blood Culture No growth at 5 days. Blood culture [[id number]] Collected: 07/09/232030 Lab Status: Final result Specimen: [...] have questions please contact the health care consultant that requested your imaging first. Electronically signed by: Lena Wu MD, [facility] ([phone]), at 08/07/2023 7:11 AM ASSESSMENT and PLAN: [...] - DVT PPx: SQH in setting of BRITIN - Diet: No diet orders on file [...] IR Mediport Placement 04/02/2021 Yuval Sinclair PA [facility] INTERVENTIONL RAD IR NEPHROGRAM/NEPHROSTOMY TUBE EXCHANGE BILATERAL 04/24/2022 IR Nephrogram/Nephrostomy Tube Exchange Bilateral 04/24/2022 Alin Dillard MD [facility] INTERVENTIONL RAD IR NEPHROGRAM/NEPHROSTOMY TUBE EXCHANGE BILATERAL 07/26/2022 IR Nephrogram/Nephrostomy Tube Exchange Bilateral 07/26/2022 Robe Hope PA [facility] INTERVENTIONL RAD IR NEPHROGRAM/NEPHROSTOMY TUBE EXCHANGE BILATERAL 10/18/2022 IR Nephrogram/Nephrostomy Tube Exchange Bilateral 10/18/2022 Alexis De La Cruz MD [facility] INTERVENTIONL RAD IR NEPHROGRAM/NEPHROSTOMY TUBE EXCHANGE BILATERAL 12/11/2022 IR Nephrogram/Nephrostomy Tube Exchange Bilateral 12/11/2022 Alexis De La Cruz MD [facility] INTERVENTIONL RAD IR NEPHROGRAM/NEPHROSTOMY TUBE EXCHANGE BILATERAL 02/13/2023 IR Nephrogram/Nephrostomy Tube Exchange Bilateral 02/13/2023 Alin Dillard MD [facility] INTERVENTIONL RAD IR NEPHROGRAM/NEPHROSTOMY TUBE EXCHANGE BILATERAL 04/04/2023 IR Nephrogram/Nephrostomy Tube Exchange Bilateral Alin Dillard MD [facility] INTERVENTIONL RAD IR NEPHROGRAM/NEPHROSTOMY TUBE EXCHANGE BILATERAL 04/25/2023 IR Nephrogram/Nephrostomy Tube Exchange Bilateral [facility] INTERVENTIONL RAD IR NEPHROGRAM/NEPHROSTOMY TUBE EXCHANGE BILATERAL 06/19/2023 IR Nephrogram/Nephrostomy Tube Exchange Bilateral Alexis De La Cruz MD [facility] INTERVENTIONL RAD IR NEPHROGRAM/NEPHROSTOMY TUBE EXCHANGE BILATERAL 07/09/2023 IR Nephrogram/Nephrostomy Tube Exchange Bilateral 07/09/2023 Alin Dillard MD [facility] INTERVENTIONL RAD IR NEPHROSTOMY TUBE PLACEMENT PERCUTANEOUS BILATERAL 02/20/2021 IR Nephrostomy Tube Placement Percutaneous Bilateral [facility] INTERVENTIONL RAD IR NEPHROURETERAL (NU) STENT PLACEMENT/CHECK/CHANGE 07/13/2021 IR Nephroureteral (NU) Stent Placement Check/Change 07/13/2021 Alexis De La Cruz MD [facility] INTERVENTIONLRAD IR NEPHROURETERAL (NU) STENT PLACEMENT/CHECK/CHANGE 10/23/2021 IR Nephroureteral (NU) Stent Placement Check/Change 10/23/2021 Zeferino Rosado MD [facility] INTERVENTIONL RAD IR NEPHROURETERAL (NU) STENT PLACEMENT/CHECK/CHANGE 01/18/2022 IR Nephroureteral (NU) Stent Placement Check/Change 01/18/2022 Cecile Nice MD [facility] INTERVENTIONLRAD PRO [facility] GUID[facility] SAMPL 3/> NODE STATION/STRUX N/A 04/04/2021 BRONCH, W ENDOBRONCHIAL ULTRASOUND (EBUS) GUIDED SAMPLING, 3+ NODES (WRVU 5.21) performed by Alonzo Cevallos MD at [facility] MAIN OR PRO BRONCHOSCOPY, DIAGNOSTIC W LAVAGE N/A 04/04/2021 BRONCHOSCOPY, RIGID OR FLEXIBLE, WITH BRONCHIAL ALVEOLAR LAVAGE (WRVU 2.88) performed by Alonzo Cevallos MD at [facility] MAIN OR Social History and Habits: Social [...] day of procedure) 08/07/[address] [facility] Radiology, PGY-3 documented in this [...] 4 mg (4 mg Intravenous Given 08/07/23 5278) lactated Ringers 1,000 mL IV bolus ( [...] Appropriate) Problem: Mobility Impairment Goal: Optimal Mobility [place] and Safety Outcome: Ongoing (Interventions Implemented as [...] Appropriate) Problem: Mobility Impairment Goal: Optimal Mobility [place] and Safety Outcome: Ongoing (Interventions Implemented as [...] Appropriate) Problem: Mobility Impairment Goal: Optimal Mobility [place] and Safety Outcome: Ongoing (Interventions Implemented as [...] Appropriate) * Consult Note - Kang Andujar [facility] - 08/08/2023 12:42 PM EDT [...] has the electric, gas, oil, or water [employer] threatened to shut off services in your [...] none Home Address confirmed as: [address] [place] [address] Social & Family Supports: All names listed [...] financial assistance Prescription Coverage: Yes Preferred Pharmacy: [facility] - [place], [place] - [address] [facility] [address] [facility] [address] [facility] [id number] - [place], [place] - [address] [facility] [facility] [id number] [facility] - [place], [place] - [address] [facility] [address] [facility] [address] [facility] - [place], [place] - [address] [facility] [address] [facility] [address] [facility] [id number] - [place], [place] - [address] [facility] [address] [facility] [id number] - [place], [place] - [address] [facility] [address] [facility] [address] Status: Patient is a : No Primary Care Provider confirmed: Tavia Ramirez, WAIST FITTER [phone] Patient/Caregiver Goals of Treatment: home when med [...] with transition of care planning. Emil Wong DRY CLEANER HAND marble machine tender [phone] * Plan of Care - Thony Woodruff [...] Alexis MD - 08/07/2023 11:01 AM EDT [facility] Department of Thoracic Surgery Inpatient Consultation Note [place], [place] [address] FAX: Patient Name: Mitesh Bullard Patient : [...] IR Mediport Placement 04/02/2021 Yuval Sinclair PA [facility] INTERVENTIONL RAD IR NEPHROGRAM/NEPHROSTOMY TUBE EXCHANGE BILATERAL 04/24/2022 IR Nephrogram/Nephrostomy Tube Exchange Bilateral 04/24/2022 Alin Dillard MD [facility] INTERVENTIONL RAD IR NEPHROGRAM/NEPHROSTOMY TUBE EXCHANGE BILATERAL 07/26/2022 IR Nephrogram/Nephrostomy Tube Exchange Bilateral 07/26/2022 Robe Hope PA [facility] INTERVENTIONL RAD IR NEPHROGRAM/NEPHROSTOMY TUBE EXCHANGE BILATERAL 10/18/2022 IR Nephrogram/Nephrostomy Tube Exchange Bilateral 10/18/2022 Alexis De La Cruz MD [facility] INTERVENTIONL RAD IR NEPHROGRAM/NEPHROSTOMY TUBE EXCHANGE BILATERAL 12/11/2022 IR Nephrogram/Nephrostomy Tube Exchange Bilateral 12/11/2022 Alexis De La Cruz MD [facility] INTERVENTIONL RAD IR NEPHROGRAM/NEPHROSTOMY TUBE EXCHANGE BILATERAL 02/13/2023 IR Nephrogram/Nephrostomy Tube Exchange Bilateral 02/13/2023 Alin Dillard MD [facility] INTERVENTIONL RAD IR NEPHROGRAM/NEPHROSTOMY TUBE EXCHANGE BILATERAL 04/04/2023 IR Nephrogram/Nephrostomy Tube Exchange Bilateral Alin Dillard MD [facility] INTERVENTIONL RAD IR NEPHROGRAM/NEPHROSTOMY TUBE EXCHANGE BILATERAL 04/25/2023 IR Nephrogram/Nephrostomy Tube Exchange Bilateral [facility] INTERVENTIONL RAD IR NEPHROGRAM/NEPHROSTOMY TUBE EXCHANGE BILATERAL 06/19/2023 IR Nephrogram/Nephrostomy Tube Exchange Bilateral Alexis De La Cruz MD [facility] INTERVENTIONL RAD IR NEPHROGRAM/NEPHROSTOMY TUBE EXCHANGE BILATERAL 07/09/2023 IR Nephrogram/Nephrostomy Tube Exchange Bilateral 07/09/2023 Alin Dillard MD [facility] INTERVENTION RAD IR NEPHROSTOMY TUBE PLACEMENT PERCUTANEOUS BILATERAL 02/20/2021 IR Nephrostomy Tube Placement Percutaneous Bilateral [facility] INTERVENTIONL RAD IR NEPHROURETERAL (NU) STENT PLACEMENT/CHECK/CHANGE 07/13/2021 IR Nephroureteral (NU) Stent Placement Check/Change 07/13/2021 Alexis De La Cruz MD [facility] INTERVENTIONLRAD IR NEPHROURETERAL (NU) STENT PLACEMENT/CHECK/CHANGE 10/23/2021 IR Nephroureteral (NU) Stent Placement Check/Change 10/23/2021 Zeferino Rosado MD [facility] INTERVENTIONL RAD IR NEPHROURETERAL (NU) STENT PLACEMENT/CHECK/CHANGE 01/18/2022 IR Nephroureteral (NU) Stent Placement Check/Change 01/18/2022 Cecile Nice MD [facility] INTERVENTIONLRAD PRO [facility] EBUS GUIDED SAMPL 3/> NODE STATION/STRUX N/A 04/04/2021 BRONCH, W ENDOBRONCHIAL ULTRASOUND (EBUS) GUIDED SAMPLING, 3+ NODES (WRVU 5.21) performed by Alonzo Cevallos MD at [facility] MAIN OR PRO BRONCHOSCOPY, DIAGNOSTIC W LAVAGE N/A 04/04/2021 BRONCHOSCOPY, RIGID OR FLEXIBLE, WITH BRONCHIAL ALVEOLAR LAVAGE (WRVU 2.88) performed by Alonzo Cevallos MD at [facility] MAIN OR Medications: Outpatient Medications Marked as [...] Row ED from 08/07/2023 in Emergency Department [facility] Office Visit from 07/21/2023 in Hematology/Oncology at [facility] Weight 70.3 kg (155 lb) 1 08/07/2023 [...] QTC Calculated (Bezet) 466 ms Calculated P [place] 79 degrees Calculated R [place] 71 degrees Calculated T [place] 48 degrees INTERPRETATION Normal sinus rhythm Normal [...] m?? Lactate, whole blood, send to lab ([facility]) Result Value Ref Range Lactate WB 2.7 [...] Alexis MD 08/07/2023 Thoracic Surgery Service Pager [phone] Associated attestation - Axel Saenz MD - [...] PM EDT Office Visit Hematology/Oncology at [address] [phone] Chase Mckay MD [facility] DR HEMATOLOGY [place] [address] documented as of this encounter Procedures Procedure Name Priority Date/Time Associated Diagnosis Comments HEMOGRAM Routine 08/10/2023 4:49 AM EDT DIFFERENTIAL, AUTOMATED Routine 08/10/2023 4:49 AM EDT CBC (WITH DIFF) Routine 08/10/2023 4:49 AM EDT BASIC METABOLIC PANEL Routine 08/10/2023 4:49 AM EDT HEMOGRAM Routine 08/09/2023 6:56 AM EDT DIFFERENTIAL, AUTOMATED Routine 08/09/2023 6:56 AM EDT CBC (WITH DIFF) Routine 08/09/2023 6:56 AM EDT BASIC METABOLIC PANEL Routine 08/09/2023 6:56 AM EDT HEMOGRAM Routine 08/08/2023 6:58 AM EDT DIFFERENTIAL, AUTOMATED Routine 08/08/2023 6:58 AM EDT CBC (WITH DIFF) Routine 08/08/2023 6:58 AM EDT BASIC METABOLIC PANEL Routine 08/08/2023 6:58 AM EDT SCAN, PERIPHERAL BLOOD STAT 10:55 PM EDT HEMOGRAM STAT 08/07/2023 10:55 PM EDT DIFFERENTIAL, AUTOMATED STAT 08/07/2023 10:55 PM EDT LACTATE, WHOLE BLOOD STAT 08/07/2023 10:55 PM EDT CBC (WITH DIFF) STAT 08/07/2023 10:55 PM EDT COMPREHENSIVE METABOLIC PANEL STAT 08/07/2023 10:55 PM EDT BLOOD CULTURE STAT 08/07/2023 8:32 PM EDT URINALYSIS MICROSCOPIC EXAM STAT 08/07/2023 6:40 PM EDT URINE CULTURE STAT 08/07/2023 6:40 PM EDT URINALYSIS WITH REFLEX CULTURE STAT 08/07/2023 5:05 PM EDT IR NEPHROGRAM/NEPHROSTOMY TUBE EXCHANGE BILATERAL STAT 08/07/2023 3:53 PM EDT BLOOD CULTURE STAT 08/07/2023 6:[address] ABDOMEN AND PELVIS WO CONTRAST STAT 08/07/2023 5:48 AM EDT LACTATE, WHOLE BLOOD STAT 08/07/2023 4:36 AM EDT CBC (WITH DIFF) STAT 08/07/2023 4:36 AM EDT COMPREHENSIVE METABOLIC PANEL STAT 08/07/2023 4:36 AM EDT HEMOGRAM STAT 08/07/2023 4:35 AM EDT DIFFERENTIAL, AUTOMATED STAT 08/07/2023 4:35 AM EDT GOLD TUBE HOLD STAT 08/07/2023 4:35 AM EDT BLUE TUBE HOLD STAT 08/07/2023 4:35 AM EDT LIPASE STAT 08/07/2023 4:35 AM EDT EKG 12-LEAD STAT 08/07/2023 3:55 AM EDT documented in this encounter Results * Differential, Automated (08/10/2023 4:49 AM EDT) Neutrophil % 61.0 % [facility] Neutrophil Absolute 4.19 1.70 - 6.10 x10(3)/[facility] Lymph % 24.4 % [facility] Lymphocytes Abs 1.7 0.9 - 3.2 x10(3)/[facility] Monocyte % 9.0 % [facility] Monocyte Abs 0.6 0.3 - 0.9 x10(3)/[facility] Eos % 4.5 % [facility] Eosinophils Abs 0.3 0.0 - 0.4 x10(3)/[facility] Basophil % 0.7 % [facility] Baso Absolute 0.0 0.0 - 0.1 x10(3)/[facility] Immature Gran % 0.40 % [facility] Comment: Immature granulocytes(IG's)percentage and absolute count will include metamyelocytes, myelocytes, and promyelocytes. Blood smears from CBCs yielding IG's will be scanned manually for concordance. If this scan disagrees with the automated IG or if promyelocytes are noted, a manual differential will be performed. Immature Gran Absolute 0.03 0.00 - 0.04 x10(3)/[facility] Blood 08/10/2023 4:49 AM EDT 08/10/2023 5:12 AM EDT Narrative Resulting Agency Comment Spec In Lab Kevin Booker Damien [facility] ORDERA BLES [facility] [place] [address] * (ABNORMAL) Hemogram (08/10/2023 4:49 AM EDT) White Blood Cell 6.9 4.0 - 9.5 x10(3)/mc L [facility] Red Blood Cell 4.34 4.00 - 5.21 x10(6)/mc L [facility] Hemoglobin 10.7(L) 11.7 - 15.5 g/dL [facility] Hematocrit 34.9(L) 35.7 - 45.8 % [facility] Mean Cell Volume 80.4(L) 82.6 - 94.4 fL [facility] Mean Cell Hemoglobin 24.7(L) 27.1 - 32.0 pg [facility] Mean Cell Hemoglobin Concentration 30.7(L) 31.7 - 35.0 g/dL [facility] Platelet 427(H) 145 - 357 x10(3)/mc L [facility] RDW Standard Deviation 48.6(H) 37.0 - 46.0 fL [facility] RDW coefficient of variation 16.8(H) 11.5 - 14.1 % [facility] Mean Platelet Volume 9.6 7.6 - 12.9 fL [facility] NRBC% auto 0.0 % [facility] NRBC Absolute 0.000 0.000 - 0.000 x10(3)/ L [facility] Blood 08/10/2023 4:49 AM EDT 08/10/2023 5:12 AM EDT Narrative Resulting Agency Comment Spec In Lab Kevin Booker Damien [facility] ORDERA BLES [facility] [place] [address] * (ABNORMAL) Basic Metabolic Panel (non-fasting) (08/10/2023 4:49 AM EDT) Glucose 94 65 - 199 mg/dL [facility] Comment:Diabetes: >=200 mg/d L plus symptoms Blood Urea Nitrogen 17 8 - 18 mg/dL [facility] Creatinine 1.76(H) 0.70 - 1.20 mg/dL [facility] Sodium 140 135 - 145 mmol/L [facility] Potassium 4.4 3.5 - 5.0 mmol/L [facility] Comment: Please note: ??Patients with WBC >100,000 may have falsely elevated Potassium levels. ??For accurate Potassium quantification in these patients send serum separator tube (gold top) for subsequent determinations. ??Contact the Clinical Chemistry Laboratory if there are any questions. Chloride 112(H) 98 - 107 mmol/L [facility] Carbon Dioxide 20(L) 22 - 31 mmol/L [facility] Anion Gap 8 5 - 15 mmol/L [facility] Calcium 8.7 8.5 - 10.5 mg/dL [facility] Est Glomerular Filtration Rate 30(L) >=60 mL/min/1. 73 m?? [facility] Comment: This patient's [...] Comment Spec In Lab Kevin Quezada APRN CHEMISTRY ORDERAB LES Performing Organization Address City/[facility]/ZIP Co de Phone Number [facility] [place] [address] * Differential, Automated (08/09/2023 6:56 AM EDT) Neutrophil % 67.3 % [facility] Neutrophil Absolute 5.21 1.70 - 6.10 x10(3)/[facility] Lymph % 16.0 % [facility] Lymphocytes Abs 1.2 0.9 - 3.2 x10(3)/[facility] Monocyte % 11.1 % [facility] [place] Monocyte Abs 0.9 0.3 - 0.9 x10(3)/[facility] Eos % 4.5 % [facility] Eosinophils Abs 0.4 0.0 - 0.4 x10(3)/[facility] Basophil % 0.6 % [facility] Baso Absolute 0.0 0.0 - 0.1 x10(3)/[facility] Immature Gran % 0.50 % [facility] Comment: Immature granulocytes(IG's)percentage and absolute count will include metamyelocytes, myelocytes, and promyelocytes. Blood smears from CBCs yielding IG's will be scanned manually for concordance. If this scan disagrees with the automated IG or if promyelocytes are noted, a manual differential will be performed. Immature Gran Absolute 0.04 0.00 - 0.04 x10(3)/[facility] Blood 08/09/2023 6:56 AM EDT 08/09/2023 7:06 AM EDT Narrative Resulting Agency Comment Spec In Lab Alin Caal MD HEMATOLOGY ORDERABLE S Performing Organization Address City/[facility]/ZIP Co de Phone Number [facility] [place] [address] * (ABNORMAL) Hemogram (08/09/2023 6:56 AM EDT) White Blood Cell 7.8 4.0 - 9.5 x10(3)/mc L [facility] Red Blood Cell 4.14 4.00 - 5.21 x10(6)/mc L [facility] Hemoglobin 10.4(L) 11.7 - 15.5 g/dL [facility] Hematocrit 32.9(L) 35.7 - 45.8 % [facility] Mean Cell Volume 79.5(L) 82.6 - 94.4 fL [facility] Mean Cell Hemoglobin 25.1(L) 27.1 - 32.0 pg [facility] Mean Cell Hemoglobin Concentration 31.6(L) 31.7 - 35.0 g/dL [facility] Platelet 416(H) 145 - 357 x10(3)/[facility] RDW Standard Deviation 47.8(H) 37.0 - 46.0 [facility] RDW coefficient of variation 16.6(H) 11.5 - 14.1 % [facility] Mean Platelet Volume 9.4 7.6 - 12.9 [facility] NRBC% auto 0.0 % [facility] NRBC Absolute 0.000 0.000 - 0.000 x10(3)/[facility] Blood 08/09/2023 6:56 AM EDT 08/09/2023 7:06 AM EDT Narrative Resulting Agency Comment Spec In Lab Alin Caal MD HEMATOLOGY ORDERABLE S [facility] [place] [address] * (ABNORMAL) Basic Metabolic Panel (non-fasting) (08/09/2023 6:56 AM EDT) Pathologist [facility] Glucose 102 65 - 199 mg/dL [facility] Comment:Diabetes: >=200 mg/d L plus symptoms Blood Urea Nitrogen 18 8 - 18 mg/dL [facility] Creatinine 1.90(H) 0.70 - 1.20 mg/dL [facility] Sodium 137 135 - 145 mmol/L [facility] Potassium 4.1 3.5 - 5.0 mmol/L [facility] Comment: Please note: ??Patients with WBC >100,000 may have falsely elevated Potassium levels. ??For accurate Potassium quantification in these patients send serum separator tube (gold top) for subsequent determinations. ??Contact the Clinical Chemistry Laboratory if there are any questions. Chloride 110(H) 98 - 107 mmol/L [facility] Carbon Dioxide 20(L) 22 - 31 mmol/L [facility] Anion Gap 7 5 - 15 mmol/L [facility] Calcium 8.5 8.5 - 10.5 mg/dL [facility] Est Glomerular Filtration Rate 28(L) >=60 mL/min/1. 73 m?? [facility] Comment: This patient's [...] In Lab Aaliyah Disla MD CHEMISTRY ORDERABLES [facility] [place] [address] * (ABNORMAL) Differential, Automated (08/08/2023 6:58 AM EDT) Neutrophil % 72.5 % [facility] Neutrophil Absolute 7.86(H) 1.70 - 6.10 x10(3)/[facility] Lymph % 11.5 % [facility] Lymphocytes Abs 1.2 0.9 - 3.2 x10(3)/[facility] Monocyte % 12.5 % [facility] Monocyte Abs 1.4(H) 0.3 - 0.9 x10(3)/[facility] Eos % 2.7 % [facility] Eosinophils Abs 0.3 0.0 - 0.4 x10(3)/[facility] Basophil % 0.4 % [facility] Baso Absolute 0.0 0.0 - 0.1 x10(3)/[facility] Immature Gran % 0.40 % [facility] Comment: Immature granulocytes(IG's)percentage and absolute count will include metamyelocytes, myelocytes, and promyelocytes. Blood smears from CBCs yielding IG's will be scanned manually for concordance. If this scan disagrees with the automated IG or if promyelocytes are noted, a manual differential will be performed. Immature Gran Absolute 0.04 0.00 - 0.04 x10(3)/[facility] Blood 08/08/2023 6:58 AM EDT 08/08/2023 7:14 AM EDT Narrative Resulting Agency Comment Spec In Lab Alin Caal MD HEMATOLOGY ORDERABLE S [facility] [place] [address] * (ABNORMAL) Hemogram (08/08/2023 6:58 AM EDT) White Blood Cell 10.8(H) 4.0 - 9.5 x10(3)/[facility] Red Blood Cell 4.09 4.00 - 5.21 x10(6)/mc L [facility] Hemoglobin 10.2(L) 11.7 - 15.5 g/dL [facility] Hematocrit 32.4(L) 35.7 - 45.8 % [facility] Mean Cell Volume 79.2(L) 82.6 - 94.4 fL [facility] Mean Cell Hemoglobin 24.9(L) 27.1 - 32.0 pg [facility] Mean Cell Hemoglobin Concentration 31.5(L) 31.7 - 35.0 g/dL [facility] Platelet 383(H) 145 - 357 x10(3)/mc L [facility] RDW Standard Deviation 47.4(H) 37.0 - 46.0 [facility] RDW coefficient of variation 16.5(H) 11.5 - 14.1 % [facility] Mean Platelet Volume 9.8 7.6 - 12.9 [facility] NRBC% auto 0.0 % [facility] NRBC Absolute 0.000 0.000 - 0.000 x10(3)/mc L [facility] Blood 08/08/2023 6:58 AM EDT 08/08/2023 7:14 AM EDT Narrative Resulting Agency Comment Spec In Lab Alin Caal MD HEMATOLOGY ORDERABLE S [facility] [place] [address] * (ABNORMAL) Basic Metabolic Panel (non-fasting) (08/08/2023 6:58 AM EDT) Glucose 99 65 - 199 mg/dL [facility] Comment:Diabetes: >=200 mg/d L plus symptoms Blood Urea Nitrogen 24(H) 8 - 18 mg/dL [facility] Creatinine 2.14(H) 0.70 - 1.20 mg/dL [facility] Sodium 135 135 - 145 mmol/L [facility] Potassium 4.3 3.5 - 5.0 mmol/L [facility] Comment: Please note: ??Patients with WBC >100,000 may have falsely elevated Potassium levels. ??For accurate Potassium quantification in these patients send serum separator tube (gold top) for subsequent determinations. ??Contact the Clinical Chemistry Laboratory if there are any questions. Chloride 107 98 - 107 mmol/L [facility] Carbon Dioxide 21(L) 22 - 31 mmol/L [facility] Anion Gap 7 5 - 15 mmol/L [facility] Calcium 8.2(L) 8.5 - 10.5 mg/dL [facility] Est Glomerular Filtration Rate 24(L) >=60 mL/min/1. 73 m?? [facility] Comment: This patient's [...] In Lab Aaliyah Disla MD CHEMISTRY ORDERABLES [facility] [place] [address] * Scan, Peripheral Blood (08/07/2023 10:55 PM EDT) Plat estimate Increased [facility] RBC Morphology Abnormal [facility] Hypochromia Slight [facility] Ovalocytes 1-5 /HPF [facility] [place] Cells 1-5 /HPF [facility] Blood 08/07/2023 10:5 5 PM EDT 08/07/2023 11:01 PM EDT Narrative Resulting Agency Comment Spec In Lab Jessica Early MD HEMATOLOGY ORDERABLE S [facility] [place] [address] * (ABNORMAL) Differential, Automated (08/07/2023 10:55 PM EDT) Neutrophil % 75.6 % [facility] Neutrophil Absolute 9.80(H) 1.70 - 6.10 x10(3)/mc L [facility] Lymph % 10.1 % [facility] Lymphocytes Abs 1.3 0.9 - 3.2 x10(3)/ L [facility] Monocyte % 12.0 % [facility] Monocyte Abs 1.6(H) 0.3 - 0.9 x10(3)/mc L [facility] Eos % 1.4 % [facility] Eosinophils Abs 0.2 0.0 - 0.4 x10(3)/ L [facility] Basophil % 0.5 % [facility] Baso Absolute 0.1 0.0 - 0.1 x10(3)/mc L [facility] Immature Gran % 0.40 % [facility] Comment: Immature granulocytes(IG's)percentage and absolute count will include metamyelocytes, myelocytes, and promyelocytes. Blood smears from CBCs yielding IG's will be scanned manually for concordance. If this scan disagrees with the automated IG or if promyelocytes are noted, a manual differential will be performed. Immature Gran Absolute 0.05(H) 0.00 - 0.04 x10(3)/mc L [facility] Blood 08/07/2023 10:5 5 PM EDT 08/07/2023 11:01 PM EDT Narrative Resulting Agency Comment Spec In Lab Jessica Early MD HEMATOLOGY ORDERABLE S [facility] [place] [address] * (ABNORMAL) Hemogram (08/07/2023 10:55 PM EDT) White Blood Cell 13.0(H) 4.0 - 9.5 x10(3)/mc L [facility] Red Blood Cell 3.93(L) 4.00 - 5.21 x10(6)/mc L [facility] Hemoglobin 9.9(L) 11.7 - 15.5 g/dL [facility] Comment: This result has been called to THONY WOODRUFF by Shae Campuzano on 08 07 2023 at 2308, and has been read back. Hematocrit 31.9(L) 35.7 - 45.8 % [facility] Mean Cell Volume 81.2(L) 82.6 - 94.4 fL [facility] Mean Cell Hemoglobin 25.2(L) 27.1 - 32.0 pg [facility] Mean Cell Hemoglobin Concentration 31.0(L) 31.7 - 35.0 g/dL [facility] Platelet 400(H) 145 - 357 x10(3)/mc L [facility] RDW Standard Deviation 49.4(H) 37.0 - 46.0 fL [facility] RDW coefficient of variation 16.6(H) 11.5 - 14.1 % [facility] Mean Platelet Volume 10.0 7.6 - 12.9 fL [facility] NRBC% auto 0.0 % [facility] NRBC Absolute 0.000 0.000 - 0.000 x10(3)/mc L [facility] Blood 08/07/2023 10:5 5 PM EDT 08/07/2023 11:01 PM EDT Narrative Resulting Agency Comment Spec In Lab Jessica Early MD HEMATOLOGY ORDERABLE S [facility] [place] [address] * Lactate, whole blood, send to lab [place] [place] [place] (08/07/2023 10:55 PM EDT) Lactate WB 1.6 0.5 - 2.2 mmol/L [facility] Blood 08/07/2023 10:5 5 PM EDT 08/07/2023 11:01 PM EDT Narrative Resulting Agency Comment Spec In Lab Aaliyah Disla MD CHEMISTRY ORDERABLES Performing Organization Address City/[facility]/ZIP Co de Phone Number [facility] [place] [address] * (ABNORMAL) Comprehensive metabolic panel (non-fasting) (08/07/2023 10:55 PM EDT) Glucose 108 65 - 199 mg/dL [facility] Comment:Diabetes: >=200 mg/d L plus symptoms Blood Urea Nitrogen 24(H) 8 - 18 mg/dL [facility] Creatinine 2.20(H) 0.70 - 1.20 mg/dL [facility] Sodium 137 135 - 145 mmol/L [facility] Potassium 4.3 3.5 - 5.0 mmol/L [facility] Comment: Please note: ??Patients with WBC >100,000 may have falsely elevated Potassium levels. ??For accurate Potassium quantification in these patients send serum separator tube (gold top) for subsequent determinations. ??Contact the Clinical Chemistry Laboratory if there are any questions. Chloride 108(H) 98 - 107 mmol/L [facility] Carbon Dioxide 18(L) 22 - 31 mmol/L [facility] Anion Gap 11 5 - 15 mmol/L [facility] Calcium 8.0(L) 8.5 - 10.5 mg/dL [facility] Comment:result rechecked-FRANCISCO Protein, Total 6.5 6.1 - 8.0 g/dL [facility] Albumin 3.0(L) 3.2 - 5.2 g/dL [facility] Aspartate Aminotransferase 9 0 - 30 unit/L [facility] Alanine Aminotransferase 8 0 - 30 unit/L [facility] Alkaline Phosphatase 75 35 - 105 unit/L [facility] Bilirubin, Total 0.7 0.2 - 1.3 mg/dL [facility] Est Glomerular Filtration Rate 23(L) >=60 mL/min/1. 73 m?? [facility] Comment: This patient's [...] Disla MD CHEMISTRY ORDERABLES Performing Organization Address City/[facility]/[place] Co de Phone Number [facility] [place] [address] * Blood culture (08/07/2023 8:32 PM EDT) Blood Culture No growth at 5 days. [facility] Blood 08/07/2023 8:32 PM EDT 08/07/2023 9:07 PM EDT Comment:R Hand, set 2 Narrative Resulting Agency Comment Spec In Lab Ismael Sanchez MD MICROBIOLOGY - BLOOD ORDERABLES [facility] [place] [address] * (ABNORMAL) Urine culture (08/07/2023 6:40 PM EDT) Urine Culture Greater than 50,000 cfu/mL Proteus vulgaris 10,000-49,000 cfu/ml Enterococcus faecalis 10,000-49,000 cfu/ml Staphylococcus aureus (A) [facility] Organism Proteus vulgaris(A) [facility] Organism Enterococcus faecalis(A) [facility] Organism Staphylococcus aureus(A) [facility] Nephrostomy Urine 08/07/2023 [...] Sensitive Comment:Gentamicin i s not appropriate for [place]-therapy. Staphylococcus aureus Nitrofurantoin VITEK 2 METHOD Sensitive [...] METHOD Sensitive Alin Caal MD MICROBIOLOGY - [facility] ORDERABLES Performing Organization Address City/[facility]/ZIP Co de Phone Number [facility] [place] [address] * (ABNORMAL) Urinalysis Microscopic Exam (08/07/2023 6:40 PM EDT) RBC, Urine >100(H) 0 - 4 /HPF [facility] WBC, Urine >100(H) 0 - 5 /HPF [facility] Bacteria, Urine Many(A) None /HPF [facility] Squamous Epithelial Cells Raw Data, Urine 2 <=4 /HPF [facility] Hyaline Casts, Urine <1 0 - 2 /LPF [facility] Comment:Interpret with cauti on, manual microscopic results are from an unspun specimen Nephrostomy Urine 08/07/2023 6:40 PM EDT 08/07/2023 6:46 PM EDT Narrative Resulting Agency Comment Spec In Lab Alin Caal MD URINE ORDERABLES Performing Organization Address [facility]/ZIP Co de Phone Number [facility] [place] [address] * (ABNORMAL) Urinalysis with reflex Culture (08/07/2023 5:05 PM EDT) Glucose, Urine Dipstick Negative Negative mg/dL [facility] Protein, Urine Dipstick >=300(A) Negative mg/dL [facility] Bilirubin, Urine Dipstick Negative Negative mg/dL [facility] Comment: Clinical correlation required for positive Urine Bilirubin results as false positive may occur with some drugs and drug related products. If a false positive is suspected a serum total bilirubin should be considered if clinically indicated. Urobilinogen, Urine Dipstick Normal Normal mg/dL [facility] pH, Urn (dipstick) 7.0 5.0 - 8.0 [facility] Blood, Urine Dipstick Large(A) Negative mg/dL [facility] Ketone, Urine Dipstick Negative Negative mg/dL [facility] Nitrite, Urine Dipstick Positive(A) Negative [facility] Leukocytes, Urine Dipstick Large(A) Negative [facility] Appearance, Urine Dipstick Turbid(A) Clear [facility] Specific [place] Urine Automated 1.018 1.005 - 1.030 [facility] Color, Urine Dipstick Yellow Yellow [facility] Reflex to Culture Yes [facility] Nephrostomy Urine 08/07/2023 5:05 PM EDT 08/07/2023 6:46 PM EDT Narrative Resulting Agency Comment Spec In Lab Aaliyah Disla MD URINE ORDERABLES [facility] [place] [address] * IR Nephrogram/Nephrostomy Tube Exchange Bilateral (08/07/2023 [...] right, again with placement of a 10 [place] locking pigtail drainage catheter. Medications: 2% lidocaine gel topical. Est Blood Loss: <5cc. Complications: ??No immediate. Impression: 1. ??Bilateral 10 Fr nephrostomy tube exchange. 2. ??Will plan for routine exchange again in 6-7 weeks. Resident/Fellow: ??None. Attending: IDr. Nice performed this procedure. ?? Ismael Sanchez MD IMG IR ORDERABLES * Blood culture (08/07/2023 6:34 AM EDT) Blood Culture No growth at 5 days. [facility] Blood ANTECUBITAL REGION STRUCTURE / Unknown 08/07/2023 6:34 AM EDT 08/07/2023 8:10 AM EDT Narrative Resulting Agency Comment Spec In Lab Cecile Edwards MD MICROBIOLOGY - BLOOD ORDERABLES [facility] [place] [address] * CT Abdomen & Pelvis wo Contrast [...] have questions please contact the health care consultant that requested your imaging first. ? Electronically signed by: Lena Wu MD, [facility] ([phone]), at 08/07/2023 7:11 AM Narrative 08/07/2023 7:11 [...] who have questions please contactthe health care consultant that requested your imaging first. Electronically signed by: Lena Wu MD, [facility]([phone]), at 08/07/2023 7:11 AM Cecile Edwards MD IMG CT ORDERABLES * (ABNORMAL) Lactate, whole blood, send to lab ([facility] [place] [place] (08/07/2023 4:36 AM EDT) Pathologist [facility] Lactate WB 2.7(H) 0.5 - 2.2 mmol/L [facility] Blood 08/07/2023 4:36 AM EDT 08/07/2023 4:42 AM EDT Narrative Resulting Agency Comment Spec In Lab Cecile Edwards MD CHEMISTRY ORDERABLES [facility] [place] [address] * (ABNORMAL) Comprehensive metabolic panel (non-fasting) (08/07/2023 4:36 AM EDT) [facility] Glucose 157 65 - 199 mg/dL [facility] Comment:Diabetes: >=200 mg/d L plus symptoms Blood Urea Nitrogen 25(H) 8 - 18 mg/dL [facility] Creatinine 2.23(H) 0.70 - 1.20 mg/dL [facility] Sodium 140 135 - 145 mmol/L [facility] Potassium 5.1(H) 3.5 - 5.0 mmol/L [facility] Comment: Please note: ??Patients with WBC >100,000 may have falsely elevated Potassium levels. ??For accurate Potassium quantification in these patients send serum separator tube (gold top) for subsequent determinations. ??Contact the Clinical Chemistry Laboratory if there are any questions. Chloride 108(H) 98 - 107 mmol/L [facility] Carbon Dioxide 20(L) 22 - 31 mmol/L [facility] Anion Gap 12 5 - 15 mmol/L [facility] Calcium 9.2 8.5 - 10.5 mg/dL [facility] Protein, Total 8.2(H) 6.1 - 8.0 g/dL [facility] Albumin 3.9 3.2 - 5.2 g/dL [facility] Aspartate Aminotransferase 13 0 - 30 unit/L [facility] Alanine Aminotransferase 9 0 - 30 unit/L [facility] Alkaline Phosphatase 99 35 - 105 unit/L [facility] Bilirubin, Total 0.9 0.2 - 1.3 mg/dL [facility] Est Glomerular Filtration Rate 23(L) >=60 mL/min/1. 73 m?? [facility] Comment: This patient's [...] Edwards MD CHEMISTRY ORDERABLES Performing Organization Address City/[facility]/ZIP Co de Phone Number [facility] [place] [address] * Lipase (08/07/2023 4:35 AM EDT) Lipase 34 0 - 60 unit/L [facility] Blood Venous Draw / Unknown 08/07/2023 4:35 AM EDT 08/07/2023 4:49 AM EDT Narrative Resulting Agency Comment Spec In Lab Robby Norman MD CHEMISTRY ORDERABLES [facility] [place] [address] * Gold Tube HOLD (08/07/2023 4:35 AM EDT) [facility] Gold Hold Sample in lab. [facility] Blood Venous Draw / Unknown 08/07/2023 4:35 AM EDT 08/07/2023 4:44 AM EDT Ceasar Robles MD CHEMISTRY ORDERABLE S Performing Organization Address City/[facility]/ZIP Co de Phone Number [facility] [place] [address] * Blue Tube HOLD (08/07/2023 4:35 AM EDT) [facility] Blue Hold Sample in lab. [facility] Blood Venous Draw / Unknown 08/07/2023 4:35 AM EDT 08/07/2023 4:44 AM EDT Ceasar Robles MD HEMATOLOGY ORDERABL ES Performing Organization Address [facility]/[place] Co de Phone Number [facility] [place] [address] * (ABNORMAL) Differential, Automated (08/07/2023 4:35 AM EDT) [facility] Neutrophil % 89.2 % [facility] Neutrophil Absolute 18.21(H) 1.70 - 6.10 x10(3)/mc L [facility] Lymph % 3.0 % [facility] Lymphocytes Abs 0.6(L) 0.9 - 3.2 x10(3)/mc L [facility] Monocyte % 7.1 % [facility] Monocyte Abs 1.4(H) 0.3 - 0.9 x10(3)/mc L [facility] Eos % 0.0 % [facility] Eosinophils Abs 0.0 0.0 - 0.4 x10(3)/mc L [facility] [facility] Basophil % 0.2 % [facility] Baso Absolute 0.0 0.0 - 0.1 x10(3)/ L [facility] Immature Gran % 0.50 % [facility] Comment: Immature granulocytes(IG's)percentage and absolute count will include metamyelocytes, myelocytes, and promyelocytes. Blood smears from CBCs yielding IG's will be scanned manually for concordance. If this scan disagrees with the automated IG or if promyelocytes are noted, a manual differential will be performed. Immature Gran Absolute 0.11(H) 0.00 - 0.04 x10(3)/[facility] Blood 08/07/2023 4:35 AM EDT 08/07/2023 4:43 AM EDT Narrative Resulting Agency Comment Spec In Lab Ceasar Robles MD HEMATOLOGY ORDERABL ES [facility] [place] [address] * (ABNORMAL) Hemogram (08/07/2023 4:35 AM EDT) White Blood Cell 20.4(H) 4.0 - 9.5 x10(3)/[facility] Red Blood Cell 5.08 4.00 - 5.21 x10(6)/[facility] Hemoglobin 12.7 11.7 - 15.5 g/dL [facility] Hematocrit 40.3 35.7 - 45.8 % [facility] Mean Cell Volume 79.3(L) 82.6 - 94.4 fL [facility] Mean Cell Hemoglobin 25.0(L) 27.1 - 32.0 pg [facility] Mean Cell Hemoglobin Concentration 31.5(L) 31.7 - 35.0 g/dL [facility] Platelet 487(H) 145 - 357 x10(3)/[facility] RDW Standard Deviation 46.6(H) 37.0 - 46.0 fL [facility] RDW coefficient of variation 16.1(H) 11.5 - 14.1 % [facility] Mean Platelet Volume 9.1 7.6 - 12.9 fL [facility] NRBC% auto 0.0 % [facility] NRBC Absolute 0.000 0.000 - 0.000 x10(3)/mc L [facility] Blood 08/07/2023 4:35 AM EDT 08/07/2023 4:43 AM EDT Narrative Resulting Agency Comment Spec In Lab Ceasar Robles MD HEMATOLOGY ORDERABL ES [facility] [place] [address] * EKG 12 Lead (08/07/2023 3:55 AM EDT) Ventricular rate 72 BPM MUSE SYSTEM Atrial Rate 72 BPM MUSE SYSTEM P-R Interval 150 ms MUSE SYSTEM QRS Duration 78 ms MUSE SYSTEM Q-T Interval 426 ms MUSE SYSTEM QTC Calculated (Bezet) 466 ms MUSE SYSTEM Calculated P [place] 79 degrees MUSE SYSTEM Calculated R [place] 71 degrees MUSE SYSTEM Calculated T [place] 48 degrees MUSE SYSTEM INTERPRETATION Normal sinus rhythm Normal ECG No previous ECGs available I personally reviewed the tracing and edited the fellows interpretation Confirmed by fellow MD France, Samia ([id number]) on 08/08/2023 6:26:26 PM Confirmed by Fabi Castellanos ([id number]) on 08/10/2023 7:11:34 PM MUSE SYSTEM 08/07/2023 3:55 AM EDT 08/10/2023 7:11 PM EDT Cecile Edwards MD ECG ORDERABLES MUSE SYSTEM documented in this encounter Visit [...] 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 Admitting Diagnoses Diagnosis [...] Intravenous, EVERY 12 HOURS, First dose on 08/09/23 at 1915, Until Discontinued, Administer over 15 [...] EVERY 8 HOURS SCHEDULED, First dose on Nicolasa 08/07/23 at 2200, Until Discontinued, Routine Given 08/10/2023 [...] IV bolus Intravenous, ONCE, 1 dose, On Fri08/07/23 at 0456 New Bag 08/07/2023 5:11 AM [...] on Fri08/07/23 at 1220, Until Discontinued, Routine Given 08/10/2023 [...] AM EDT 3.375 g 12.5 mL/hr New 08/07/2023 8:19 PM EDT 3.375 g 12.5 mL/hr sodium chloride 0.9 % (flush) (BD PosiFlush Normal Saline 0.9) flush 5 mL 5 mL, Intravenous, 2 TIMES DAILY, First dose on Fri08/07/23 at 1220, Until Discontinued, Routine Given 08/10/2023 8:14 AM EDT 5 mLs Given 08/09/2023 9:11 PM EDT 5 mLs Given 08/09/2023 8:19 AM EDT 5 mLs sodium chloride 0.9% 1,000 mL IV bolus at 500 mL/hr, Intravenous, ONCE, 1 dose, On Fri08/07/23 at 2330 08/07/2023 10:48 PM EDT 500 mL/hr sodium chloride 0.9% 500 mL IV bolus at 500 mL/hr, Intravenous, ONCE, 1 dose, On Fri08/07/23 at 2215 08/07/2023 9:28 PM EDT 500 mL/hr sodium chloride 0.9% infusion 100 mL/hr, Intravenous, CONTINUOUS, Starting on Fri08/08/23 at 1315, Until Fri08/08/23 at 1914 08/08/2023 1:14 PM EDT 100 mL/hr 100 mL/hr sulfamethoxazole-trimethoprim (Bactrim) 351 mg in dextrose 5% 571 mL infusion 351 mg (rounded from 351.5 mg = 15 mg/kg/day ? 70.3 kg), Intravenous, EVERY 8 HOURS, 1 dose, First dose on Nicolasa 08/07/23 at 0600, Administer over 90 Minutes, Dose in mg is based on trimethoprim component, Indication for (Active or Suspected): Bacteremia/Sepsis New 08/07/2023 6:33 AM EDT 351 mg 380.7 [...] 2001 (New Bag - Provider: Minerva Sanders RN)2099 (Stopped - Provider: Minerva Sanders RN) 06 (New Bag - Provider: Minerva Sanders RN)0632 [...] Trista Carlin RN)2139 (Stopped - Provider: Trista Carlin, TORITO) heparin (porcine) (5,000 units/1 mL) subcutaneous injection 5,000 Units 5,000 Units, Subcutaneous, EVERY 8 HOURS SCHEDULED, First dose on Fri08/07/23 at 2200, Until Discontinued, Routine 0547 (Given - Provider: Thony Woodruff RN)1408 (Given - Provider: Tg Lugo)211 (Given - Provider: Trista Carlin, TORITO) 0549 (Given - Provider: Trista Carlin, TORITO)1539 (Not Given - Provider: Lindsey Vasquez RN - Reason: Patient/family refused - Comment: Kevin Quezada, WAIST FITTER notified)2110 (Given - Provider: Minerva Sanders RN) 0615 (Given - Provider: Minerva Sanders RN) lactobacillus with pectin capsule 1 capsule 1 capsule, Oral, DAILY, First dose on Fri08/08/23 at 1445, Until Discontinued, Routine 1408 (Given - Provider: Tg Lugo) 0818 (Given - Provider: Lindsey Vasquez, RN) 0813 (Given - Provider: Christina Patten, RN) levothyroxine (Synthroid) tablet 75 mcg 75 mcg, Oral, DAILY, First dose on Fri08/07/23 at 1220, Until Discontinued, Routine 0803 (Given - Provider: Tg Lugo) 0818 (Given - Provider: Lindsey Vasquez, RN) 0814 (Given - Provider: Christina Patten, RN) piperacillin-tazobacta m (Zosyn) 3.375 g vial attach to sodium chloride 0.9% 50 mL Mini-Bag Plus (CANCELED) 3.375 g, Intravenous, EVERY 8 HOURS, First dose on Fri08/07/23 at 1145, Until Discontinued, Administer over 4 Hours, Warning Vesicant/Irritant Medication Do not administer or Y-site with lactated ringers., Indication for (Active or Suspected): Pneumonia (Community) 0019 (Stopped - Provider: Thony Woodruff RN)0251 (New Bag - Provider: Thony Woodruff, TORITO)0651 (Stopped - Provider: Thony Woodruff RN)1137 (New Bag - Provider: Andrew Rogers RN)1316 (Stopped - Provider: gT Lugo - Comment: Time automatically adjusted from order being discontinued) sodium chloride 0.9 % (flush) (BD PosiFlush Normal Saline 0.9) flush 5 mL 5 mL, Intravenous, 2 TIMES DAILY, First dose on Fri08/07/23 at 1220, Until Discontinued, Routine 0803 (Given - Provider: Tg Lugo)2109 (Given - Provider: Trista Carlin, TORITO) 08 (Given - Provider: Lindsey Vasquez, TORITO)211 (Given - Provider: Minerva Sanders RN) 0814 (Given - Provider: Christina Patten, TORITO) Continuous Medication Order 08/08/2023 08/09/2023 08/10/2023 sodium chloride 0.9% infusion () 100 mL/hr, Intravenous, CONTINUOUS, Starting on Fri08/08/23 at 1315, Until Fri08/08/23 at 1914 1314 (New Bag - Provider: Tg Lugo)1947 (Stopped - Provider: Trista Carlin, TORITO) PRN Medication Order 08/08/2023 08/09/2023 08/10/2023 acetaminophen (Tylenol) tablet 975 mg 975 mg, Oral, EVERY 8 HOURS PRN, Starting on Fri08/07/23 at 2109, Until Fri08/10/23 at 1256, Pain, Headaches, Fever, Maximum dose of acetaminophen is 4,000 mg from all sources in 24 hours. When ordered for pain, acetaminophen should be given even when other ordered pain medications are indicated., Routine 1729 (Given - Provider: Andrew Rogers RN) 0359 (Given - Provider: Angie Pereyra, TORITO)1219 (Given - Provider: Lindsey Vasquez, TORITO)2109 (Given - Provider: Minerva Sanders, TORITO) HYDROmorphone (Dilaudid) tablet 2 mg 2 mg, Oral, EVERY 6 HOURS PRN, Starting on Fri08/08/23 at 1253, Until Fri08/10/23 at 1256, Pain, Routine lidocaine (Xylocaine) 1% (10 mg/mL) injection 3 mg 3 mg (0.3 mL), Subcutaneous, ONCE PRN, 1 dose, Starting on Fri08/07/23 at 1218, Until 08/10/23 at 1256, for discomfort with PIV insertion, Routine melatonin tablet 3 mg 3 mg, Oral, NIGHTLY PRN, Starting on Fri08/07/23 at 1218, Until Fri08/10/23 at 1256, Sleep, Sleep, Routine prochlorperazine (Compazine) tablet 10 mg 10 mg, Oral, EVERY 6 HOURS PRN, Starting on Fri08/07/23 at 1218, Until Fri08/10/23 at 1256, Nausea, Maximum dose: 50 mg / 24 hrs, Routine sodium chloride 0.9 % (flush) (BD PosiFlush Normal Saline 0.9) flush 5-20 mL 5-20 mL, Intravenous, EVERY 1 MIN PRN, Starting on Fri08/07/23 at 1218, Until Fri08/10/23 at 1256, flush, Flush pertains to all indwelling lines. Flush per protocol found in the job aid using the link provided on this medication record., Routine documented in this encounter Care Teams Community Service Technician Relationship Specialty Start Date End Date Tavia Ramirez, ALESSANDRO [address] [place] [address] PCP - General Family Medicine 06/11/22 documented as of this encounter
--- OUTSIDE RECORDS SUMMARY | 2023-12-08 03:33 | XMS_ITS | Encounter Summary ---
Author Organization [facility] Address [facility] [place] [address] Care Team Providers Care Software Computer Specialist Name Role Phone James Tavia Foster APRN Primary Care Provider [phone] Encounter Details Date Type Department Care Team [...] in a assisted (including now)? No 03/27/2021 DH IPV Inpatient [...] PM EDT Office Visit Hematology/Oncology at [address] [phone] Chase Mckay MD [facility] [place] [address] documented as of this encounter Visit Diagnoses Not on filedocumented in this encounter Care Teams Software Computer Specialist Relationship Specialty Start Date End Date Tavia Ramirez APRN [address] [place] [address] PCP - General Family Medicine 06/11/22 documented as of this encounter
--- OUTSIDE RECORDS SUMMARY | 2023-12-08 03:33 | XMS_ITS | Encounter Summary ---
Author Organization [facility] Address [facility] [place] [address] Care Team Providers Care Cnc Service Engineer Name Role Phone James Tavia Foster APRN Primary Care Provider [phone] Encounter Details Date Type Department Care Team [...] PM EDT Office Visit Hematology/Oncology at [address] [phone] Chase Mckay MD [facility] DR [place] [address] documented as of this encounter Visit Diagnoses Not on filedocumented in this encounter Care Teams Cnc Service Engineer Relationship Specialty Start Date End Date Tavia Ramirez [place] [address] [place] [address] PCP - General Family Medicine 06/11/22 documented as of this encounter
--- OUTSIDE RECORDS SUMMARY | 2023-12-08 03:33 | XMS_ITS | Encounter Summary ---
[place] [address] Care Team Providers Care Rn School Name Role Phone James Tavia Foster APRN Primary Care Provider [phone] Reason for Referral * Diagnostic Test (Routine) - Closed Specialty Diagnoses / Procedures Referred By Aydinac t Referred To Contact Radiology Diagnoses Metastatic urothelial carcinoma Procedures IR Nephrogram/Nephrostomy Tube Exchange Bilateral Guillermo Nice MD [facility] [place] [address] [facility] [place] [address] Referral ID Status Reason Start Date Expiration Date V isits Requested Visits Authorized [id number] Closed Specialty Service Requested 08/07/2023 02/05/2025 1 1 Reason for Visit * Auth/Cert (Routine) Specialty Diagnoses / Procedures Referred By Contjoslyn t Referred To Contact Diagnoses BRITNI (acute kidney injury) Juan Trejo MD [facility] [place] [address] [facility] Referral ID Status Reason Start Date Expiration Date Visits Re quested Visits Authorized [id number] 1 1 Encounter Details Date Type Department Care Team (Latest Contact Info) Description 08/07/2023 2:28 PM EDT - 08/07/2023 11:59 PM EDT Hospital [place] [address] Metastatic urothelial carcinoma Discharge Disposition: Home Social [...] from the original note were not included. [facility] Vascular and Interventional Radiology Discharge Instructions [...] connecting tubing from the drain. Put a predator control trapper on both the drain and the bag. [...] is during regular office hours, please call [phone]. If it is after regular office hours, or on weekends or holidays, please call [phone] and ask to speak to the Senior Internal Auditor space systems operations superintendent for Interventional Radiology. You have received medication [...] as of this encounter Progress Notes * Zelda Verde RN - 08/07/2023 2:57 PM EDT [facility] NURSING DATABASE Name: Barb Bullard Date of : 1950 AGE: 73 y.o. Address: [address] [place] [phone] (home) Mobile: Telephone Information: Referring Provider: Juan [...] right, again with placement of a 10 Slovak locking pigtail drainage catheter. Medications: 2% lidocaine [...] PM EDT Office Visit Hematology/Oncology at [address] [phone] Chase Mckay MD [facility] HEMATOLOGY [place] [address] documented as of this encounter Procedures Procedure [...] pleura documented in this encounter Care Teams Rn School Relationship Specialty Start Date End Date Tavia Ramirez, SENIOR SOFTWARE DEVELOPMENT ENGINEER [address] [place] [address] PCP - General Family Medicine 06/11/22 documented as of this encounter
--- OUTSIDE RECORDS SUMMARY | 2023-12-08 03:33 | XMS_ITS | Encounter Summary ---
Author Organization [facility] Address [facility] [place] [address] Care Team Providers Care Golf Club Manager Name Role Phone James Tavia Foster APRN Primary Care Provider [phone] Encounter Details Date Type Department Care Team (Late st Contact Info) Description 06/23/2023 3:00 PM EST Office Visit Hematology/Oncology at [address] [phone] Chase Mckay MD [facility] DR [place] [address] Dianne Jacob APRN [address] [place] [address] DR HEMATOLOGY AND ONCOLOGY [place], [place] [id number] Primary malignant neoplasm of left lower lobe [...] original note were not included. [place] [address] [phone] Barb Bullard is being seen for the [...] EKG Dianne Jacob APRN 06/23/2023 Thoracic Oncology [facility] CC: Jose Patel MD HPI/Interval History/Subjective: Last [...] with [facility]. Has received [employer] J[employer]J and Moderna booster . Social History/Support Network: Home situation: Lives in [facility]. Lives with her daughter. 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 Tobacco use: 30 pk year hx quit [...] of left lower lobe mass lung debulking ([id number]), the immunostain findings in the present case [...] of left lower lobe mass lung debulking ([id number]), the immunostain findings in the present case [...] Judgment: Judgment normal. Review of Laboratory Data: .. WBC 6.63, H/H 11.2/35.8, plt 531, ANC [...] PM EDT Office Visit Hematology/Oncology at [address] [phone] Chase Mckay MD [facility] DR [place] [address] documented as of this encounter Visit Diagnoses [...] pleura documented in this encounter Care Teams Golf Club Manager Relationship Specialty Start Date End Date Tavia Ramirez APRN [facility] [place] [place] [address] PCP - General Family Medicine 06/11/22 documented as of this encounter
--- OUTSIDE RECORDS SUMMARY | 2023-12-08 03:33 | XMS_ITS | Encounter Summary ---
[place] [address] Care Team Providers Care Educational Administration Teacher Name Role Phone Tavia Ramirez APRN Primary Care Provider [phone] Reason for Referral * Diagnostic Test (Routine) - Closed Specialty Diagnoses / Procedures Referred By Contac t Referred To Contact Radiology Diagnoses Obstructive uropathy Procedures IR Nephrogram/Nephrostomy Tube Exchange Bilateral Alin Dillard MD [facility] [place] [address] [facility] [place] [address] Referral ID Status Reason Start Date Expiration Date V isits Requested Visits Authorized [id number] Closed Specialty Service Requested 04/25/2023 10/24/2024 1 1 Reason for Visit * Diagnostic Test (Routine) - Closed Specialty Diagnoses / Procedures Referred By Contac t Referred To Contact Radiology Diagnoses Obstructive uropathy Procedures IR Nephrogram/Nephrostomy Tube Exchange Bilateral Alin Dillard MD [facility] [place] [address] [facility] [place] [address] Referral ID Status Reason Start Date Expiration Date V isits Requested Visits Authorized [id number] Closed Specialty Service Requested 04/25/2023 10/24/2024 1 1 Encounter Details Date Type Department Care Team (Latest Contact Info) Description 06/19/2023 1:16 PM EST - 06/19/2023 11:59 PM EST Hospital Encounter Radiology at [facility] [place] [address] Alin Dillard MD [facility] [place] [address] Obstructive uropathy Discharge Disposition: Home Social History [...] from the original note were not included. [facility] Vascular and Interventional Radiology Discharge Instructions [...] connecting tubing from the drain. Put a accreditation specialist on both the drain and the bag. [...] is during regular office hours, please call [phone]. If it is after regular office hours, or on weekends or holidays, please call [phone] and ask to speak to the Director Of Research And Development promotional advertising assistant for Interventional Radiology. You have received medication [...] of : 1950 AGE: 72 y.o. Address: [address] [place] [phone] (home) Mobile: Telephone Information: Referring Provider: Alin Dillard REASON FOR VISIT: Order Questions Answers Where will study be performed? [facility] Radiology [120] Reason for exam [...] PM EDT Office Visit Hematology/Oncology at [address] [phone] Chase Mckay MD [facility] [place]AT[place] [address] documented as of this encounter Procedures Procedure [...] renal pelves, exchanged. ? Alin Dillard MD IM IR ORDERABLES documented in this [...] mLs documented in this encounter Care Teams Educational Administration Teacher Relationship Specialty Start Date End Date Tavia Ramirez, ALESSANDRO [address] [place] [address] PCP - General Family Medicine 06/11/22 documented as of this encounter
--- OUTSIDE RECORDS SUMMARY | 2023-12-08 03:33 | XMS_ITS | Encounter Summary ---
Author Organization [facility] Address [facility] [address] Care Team Providers Care Gas Meter Mechanic Name Role Phone Tavia Ramirez APRN Primary Care Provider [phone] Encounter Details Date Type Department Care Team (Late st Contact Info) Description 06/24/2023 Orders Only Hematology/Oncology at [address] [phone] Dianne Jacob APRN [address] [place] [address] DR HEMATOLOGY AND ONCOLOGY [place], [place] [id number] Primary malignant neoplasm of left lower lobe [...] PM EDT Office Visit Hematology/Oncology at [address] [phone] Chase Mckay MD [facility] [address] [place] [address] Scheduled Orders Name Type Priority Associated Diagnoses [...] for long-term (current) use of other medications 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
--- OUTSIDE RECORDS SUMMARY | 2023-12-08 03:33 | XMS_ITS | Encounter Summary ---
Author Organization [facility] Address [facility] [place] [address] Care Team Providers Care Drawer Fitter Name Role Phone Tavia Ramirez APRN Primary Care Provider Reason for Visit * Reason Onset Date Comments Other 06/02/2023 Still off new me d Encounter Details Date Type Department Care Team (Late st Contact Info) Description 06/02/2023 Telephone Hematology/Oncology at [address] [phone] Pamella East RN Other (Still [...] She ended up going to ER at [facility] on 05/27/23 and got hydrated and potassium replacement. She stopped Krazati that day. She is feeling somewhat better. Diarrhea gone having normal bowel movements. Her appetite is not great. She is having leg cramping. She is drinking cranberry juice and gatorade. [facility] is wondering what next step is. [...] PM EDT Office Visit Hematology/Oncology at [address] [phone] Chase Mckay MD [facility] HEMATOLOGY AND [place] [address] documented as of this encounter Visit Diagnoses Not on filedocumented in this encounter Care Teams Drawer Fitter Relationship Specialty Start Date End Date Tavia Ramirez, ALESSANDRO [facility] [address] [place] [address] PCP - General Family Medicine 06/11/22 documented as of this encounter
--- OUTSIDE RECORDS SUMMARY | 2023-12-08 03:33 | XMS_ITS | Encounter Summary ---
Author Organization [facility] Address [facility] [address] Care Team Providers Care Orientation & Mobility Specialist Name Role Phone James Tavia Foster APRN Primary Care Provider [phone] Encounter Details Date Type Department Care Team (Latest Contact Info) Description 08/07/2023 Travel Social History Tobacco Use Types Packs/Day Years Used Date Smoking Tobacco: Former Cigarettes Q uit: 07/04/2014 Smokeless Tobacco: Never Alcohol Use Standard Drinks/Week Comments Not Currently 0 (1 standard drink = 0.6 oz pur e alcohol) [facility] Utilities Answer Date Recorded In [...] PM EDT Office Visit Hematology/Oncology at [address] [phone] Chase Mckay MD [facility] DR HEMATOLOGY [place] [address] documented as of this encounter Visit Diagnoses Not on filedocumented in this encounter Care Teams Orientation & Mobility Specialist Relationship Specialty Start Date End Date Tavia Ramirez [place] [address] [place] [address] PCP - General Family Medicine 06/11/22 documented as of this encounter
--- OUTSIDE RECORDS SUMMARY | 2023-12-08 03:33 | XMS_ITS | Encounter Summary ---
Author Organization [facility] [place] [address] Care Team Providers Care Mobile Solutions Architect Name Role Phone James Tavia Foster APRN Primary Care Provider [phone] Reason for Visit * Reason Onset Date Comments Questions 05/29/2023 Encounter Details Date Type Department Care Team (Late st Contact Info) Description 05/29/2023 Telephone Hematology/Oncology at [address] [phone] Marci Chen RN Questions Social [...] RN - 05/29/2023 2:40 PM EST Called [email or web address] to let them know pt's medication adagrasib is on hold currently and she has next FUVscheduled 06/09/23. ----- Message from Wendy Cárdenas sent at 05/29/2023 12:41 PM EST ----- Regarding: Resume medication? [email or web address] called in and wanted to confirm if Barb can resume adagrasib (Krazati) 200 mg tablet [[id number]] after her recent hospitalization. Can you please check and confirm at the number below? [email or web address] callback is [phone] documented in this encounter Plan of Treatment Upcoming Encounters Date Type Department Care Team (Late st Contact Info) Description 12/08/2023 3:30 PM EDT Office Visit Hematology/Oncology at [address] [phone] Chase Mckay MD [facility] DR HEMATOLOGY [place] [address] documented as of this encounter Visit Diagnoses Not on filedocumented in this encounter Care Teams Mobile Solutions Architect Relationship Specialty Start Date End Date Tavia Ramirez, ALESSANDRO [place] [place] [address] PCP - General Family Medicine 06/11/22 documented as of this encounter
--- OUTSIDE RECORDS SUMMARY | 2023-12-08 03:33 | XMS_ITS | Encounter Summary ---
Author Organization [facility] Address [facility] [place] [address] Care Team Providers Care Lockstitch Tunnel Elastic Operator Name Role Phone Tavia Ramirez ALESSANDRO Primary Care Provider [phone] Encounter Details Date Type Department Care Team (Late st Contact Info) Description 05/15/2023 Orders Only Hematology [place] [address] Chase Mckay MD [facility] [address] HEMATOLOGY [place] [address] Primary malignant neoplasm of left lower lobe [...] PM EDT Office Visit Hematology/Oncology at [address] [phone] Chase Mckay MD [facility] [address] [place] [address] Scheduled Orders Name Type Priority Associated Diagnoses [...] pleura documented in this encounter Care Teams Lockstitch Tunnel Elastic Operator Relationship Specialty Start Date End Date Tavia Ramirez, SURGERY NURSE [address] [place] [address] PCP - General Family Medicine 06/11/22 documented as of this encounter
--- OUTSIDE RECORDS SUMMARY | 2023-12-08 03:33 | XMS_ITS | Encounter Summary ---
[facility] [place] [address] Care Team Providers Care Template Worker Name Role Phone Tavia Ramirez APRN Primary Care Provider [phone] Reason for Visit * Reason Comments Other Blocked nephrostomy tube * Auth/Cert (Routine) Specialty Diagnoses / Procedures Referred By Contac t Referred To Contact Diagnoses Pyelonephritis [place] [address] [facility] Referral ID Status Reason Start Date Expiration Date Visits Re quested Visits Authorized [id number] 1 1 Encounter Details Date Type Department Care Team (Latest Contact Info) Description 07/09/2023 6:34 PM EDT - 07/10/2023 12:55 PM EDT Hospital [place] [address] [place] [address] [place] [address] [place] [address] Pyelonephritis, acute; Nephrostomy complication; Obstructive uropathy; Bilateral [...] in a fpc (including now)? No 03/27/2021 DH IPV Inpatient [...] Mitesh Bullard Patient Age: 73 y.o. Language: Argentine Race: White Ethnicity: Not nor Admit date: [...] please contact your inpatient physician through the [facility] Stadium Attendant . Issues afterhours and on weekends will [...] pembrolizumab 03/2021-04/2023, Adagrasib 04/2023-p], who presents to [facility] due to concern for clogged right percutaneous [...] back pain worsened so she presented to [facility] ED. ED Course: Patient hemodynamically stable on [...] who have questions please contact the health client care consultant that requested your imaging first. Electronically signed by: Anthony Mcdonald MD, [facility] ([phone]), at 07/09/2023 6:44 PM IR Nephrogram/Nephrostomy Tube Exchange Bilateral (Exam End: 07/09/2023 10:02 PM) Narrative Preoperative Diagnosis: Chronic indwelling nephrostomy tubes, right obstructed for exchange in the setting of UTI, Pyelo, right tube obstructed. Postoperative Diagnosis: Same Procedure Performed: Over the wire exchange of nephrostomy tubes Estimated Blood Loss: None Fluoroscopy time: Please see [facility] IR technologist record for procedural dose/time Operators: [...] 07/21/2023 2:30 PM Chase Mckay MD [facility] Hem Off [facility] 07/21/2023 3:[address] [facility] Hem Off [facility] You have a hospital follow up appointment scheduled with your primary care provider, Tavia Ramirez APRN, Friday July 21, 2023 12:40 Your Inpatient Doctor: Louie Trujillo MD Your Primary Care Provider: Tavia Ramirez APRN [phone] For questions regarding this document or issues relating to this hospitalization on the Medical Service, please contact your inpatient physician through the [facility] Stadium Attendant . Issues afterhours and on weekends will [...] any issues or concerns once you leave [facility], we apologize for any undue stress this may cause. Please do not hesitate to call your PCP office or seek further medical assistance if there are any [facility]. This questionnaire is not meant to [...] Jacob APRN; Chase Mckay MD Hematology/Oncology at [facility] Arrive at: [facility] door at end of hallway [phone] 07/21/2023 3:[address] Hematology/Oncology at [facility] Arrive at: [facility] door at end of hallway [phone] Future Orders Complete By Expires IR Nephrogram/Nephrostomy Tube Exchange Bilateral [[id number] Custom] 09/08/2023 (Approximate) 03/09/2024 Process Instructions: Scheduling Instructions: Questions: Where will study be performed?: [facility] Radiology Reason for exam and clinical history: [...] Mckay MD ST Hem Off [facility] 07/21/2023 3:[address] [facility] Hem Off [facility] You have a hospital follow up appointment scheduled with your primary care provider, Tavia Ramirez APRN, Friday July 21, 2023 12:40 Your Inpatient Doctor: Louei Trujillo MD Your Primary Care Provider: Tavia Ramirez APRN [phone] For questions regarding this document or issues relating to this hospitalization on the Medical Service, please contact your inpatient physician through the [facility] Stadium Attendant . Issues afterhours and on weekends will [...] any issues or concerns once you leave [facility], we apologize for any undue stress this may cause. Please do not hesitate to call your PCP office or seek further medical assistance if there are any immediate [facility]. This questionnaire is not meant to [...] spent >30 minutes (Day of Discharge Code 40362) involved in the final examination of the [...] 1950 AGE: 73 y.o. Address: [address] [address] (home) Mobile: Telephone Information: Referring Provider: Unknown [...] pembrolizumab 03/2021-04/2023, Adagrasib 04/2023-p], who presents to [facility] due to concern for clogged right percutaneous [...] back pain worsened so she presented to [facility] ED. ED Course: Patient hemodynamically stable on [...] pembrolizumab 03/2021-04/2023, Adagrasib 04/2023-p], who presents to [facility] due to concern for clogged right percutaneous [...] - Vitals:q4h - Code Satus: DNR/DNI Kang Rea MD PGY2 Internal Medicine Resident Admitter they [...] of two midnights or is on the [facility] inpatient only procedure list (status C) due [...] b/l PCNs), and thus she presented to [facility] ED. VSS. WBC 12.1. Plts 547. Cr [...] IR Mediport Placement 04/02/2021 Yuval Sinclair PA [facility] INTERVENTIONL RAD IR NEPHROGRAM/NEPHROSTOMY TUBE EXCHANGE BILATERAL 04/24/2022 IR Nephrogram/Nephrostomy Tube Exchange Bilateral 04/24/2022 lAin Dillard MD [facility] INTERVENTIONL RAD IR NEPHROGRAM/NEPHROSTOMY TUBE EXCHANGE BILATERAL 07/26/2022 IR Nephrogram/Nephrostomy Tube Exchange Bilateral 07/26/2022 Robe Hope PA [facility] INTERVENTIONL RAD IR NEPHROGRAM/NEPHROSTOMY TUBE EXCHANGE BILATERAL 10/18/2022 IR Nephrogram/Nephrostomy Tube Exchange Bilateral 10/18/2022 Alexis De La Cruz MD [facility] INTERVENTIONL RAD IR NEPHROGRAM/NEPHROSTOMY TUBE EXCHANGE BILATERAL 12/11/2022 IR Nephrogram/Nephrostomy Tube Exchange Bilateral 12/11/2022 Alexis De La Cruz MD [facility] INTERVENTIONL RAD IR NEPHROGRAM/NEPHROSTOMY TUBE EXCHANGE BILATERAL 02/13/2023 IR Nephrogram/Nephrostomy Tube Exchange Bilateral 02/13/2023 Alin Dillard MD [facility] INTERVENTIONL RAD IR NEPHROGRAM/NEPHROSTOMY TUBE EXCHANGE BILATERAL 04/04/2023 IR Nephrogram/Nephrostomy Tube Exchange Bilateral Alin Dillard MD [facility] INTERVENTIONL RAD IR NEPHROGRAM/NEPHROSTOMY TUBE EXCHANGE BILATERAL 04/25/2023 IR Nephrogram/Nephrostomy Tube Exchange Bilateral [facility] INTERVENTIONL RAD IR NEPHROGRAM/NEPHROSTOMY TUBE EXCHANGE BILATERAL 06/19/2023 IR Nephrogram/Nephrostomy Tube Exchange Bilateral Alexis De La Cruz MD [facility] INTERVENTIONL RAD IR NEPHROSTOMY TUBE PLACEMENT PERCUTANEOUS BILATERAL 02/20/2021 IR Nephrostomy Tube Placement Percutaneous Bilateral [facility] INTERVENTIONL RAD IR NEPHROURETERAL (NU) STENT PLACEMENT/CHECK/CHANGE 07/13/2021 IR Nephroureteral (NU) Stent Placement Check/Change 07/13/2021 Alexis De La Cruz MD [facility] INTERVENTIONLRAD IR NEPHROURETERAL (NU) STENT PLACEMENT/CHECK/CHANGE 10/23/2021 IR Nephroureteral (NU) Stent Placement Check/Change 10/23/2021 Zeferino Rosado MD [facility] INTERVENTIONL RAD IR NEPHROURETERAL (NU) STENT PLACEMENT/CHECK/CHANGE 01/18/2022 IR Nephroureteral (NU) Stent Placement Check/Change 01/18/2022 Guillermo Nice MD [facility] INTERVENTIONLRAD [facility] EBUS GUIDED SAMPL 3/> NODE STATION/STRUX N/A 04/04/2021 BRONCH, W ENDOBRONCHIAL ULTRASOUND (EBUS) GUIDED SAMPLING, 3+ NODES (WRVU 5.21) performed by Alonzo Cevallos MD at [facility] MAIN OR PRO BRONCHOSCOPY, DIAGNOSTIC W LAVAGE N/A 04/04/2021 BRONCHOSCOPY, RIGID OR FLEXIBLE, WITH BRONCHIAL ALVEOLAR LAVAGE (WRVU 2.88) performed by Alonzo Cevallos MD at [facility] MAIN OR Medications: Current Facility-Administered Medications on [...] b/l PCNs), and thus she presented to [facility] ED. VSS. WBC 12.1. Plts 547. Cr [...] IR Mediport Placement 04/02/2021 Yuval Sinclair PA [facility] INTERVENTIONL RAD IR NEPHROGRAM/NEPHROSTOMY TUBE EXCHANGE BILATERAL 04/24/2022 IR Nephrogram/Nephrostomy Tube Exchange Bilateral 04/24/2022 Alin Dillard MD [facility] INTERVENTIONL RAD IR NEPHROGRAM/NEPHROSTOMY TUBE EXCHANGE BILATERAL 07/26/2022 IR Nephrogram/Nephrostomy Tube Exchange Bilateral 07/26/2022 Robe Hope PA [facility] INTERVENTIONL RAD IR NEPHROGRAM/NEPHROSTOMY TUBE EXCHANGE BILATERAL 10/18/2022 IR Nephrogram/Nephrostomy Tube Exchange Bilateral 10/18/2022 Alexis De La Cruz MD [facility] INTERVENTIONL RAD IR NEPHROGRAM/NEPHROSTOMY TUBE EXCHANGE BILATERAL 12/11/2022 IR Nephrogram/Nephrostomy Tube Exchange Bilateral 12/11/2022 Alexis De La Cruz MD [facility] INTERVENTIONL RAD IR NEPHROGRAM/NEPHROSTOMY TUBE EXCHANGE BILATERAL 02/13/2023 IR Nephrogram/Nephrostomy Tube Exchange Bilateral 02/13/2023 Alin Dillard MD [facility] INTERVENTIONL RAD IR NEPHROGRAM/NEPHROSTOMY TUBE EXCHANGE BILATERAL 04/04/2023 IR Nephrogram/Nephrostomy Tube Exchange Bilateral Alin Dillard MD [facility] INTERVENTIONL RAD IR NEPHROGRAM/NEPHROSTOMY TUBE EXCHANGE BILATERAL 04/25/2023 IR Nephrogram/Nephrostomy Tube Exchange Bilateral [facility] INTERVENTIONL RAD IR NEPHROGRAM/NEPHROSTOMY TUBE EXCHANGE BILATERAL 06/19/2023 IR Nephrogram/Nephrostomy Tube Exchange Bilateral Alexis De La Cruz MD [facility] INTERVENTIONL RAD IR NEPHROSTOMY TUBE PLACEMENT PERCUTANEOUS BILATERAL 02/20/2021 IR Nephrostomy Tube Placement Percutaneous Bilateral [facility] INTERVENTIONL RAD IR NEPHROURETERAL (NU) STENT PLACEMENT/CHECK/CHANGE 07/13/2021 IR Nephroureteral (NU) Stent Placement Check/Change 07/13/2021 Alexis De La Cruz MD [facility] INTERVENTIONLRAD IR NEPHROURETERAL (NU) STENT PLACEMENT/CHECK/CHANGE 10/23/2021 IR Nephroureteral (NU) Stent Placement Check/Change 10/23/2021 Zeferino Rosado MD [facility] INTERVENTIONL RAD IR NEPHROURETERAL (NU) STENT PLACEMENT/CHECK/CHANGE 01/18/2022 IR Nephroureteral (NU) Stent Placement Check/Change 01/18/2022 Guillermo Nice MD [facility] INTERVENTIONLRAD [facility] EBUS GUIDED SAMPL 3/> NODE STATION/STRUX N/A 04/04/2021 BRONCH, W ENDOBRONCHIAL ULTRASOUND (EBUS) GUIDED SAMPLING, 3+ NODES (WRVU 5.21) performed by Alonzo Cevallos MD at [facility] MAIN OR PRO BRONCHOSCOPY, DIAGNOSTIC W LAVAGE N/A 04/04/2021 BRONCHOSCOPY, RIGID OR FLEXIBLE, WITH BRONCHIAL ALVEOLAR LAVAGE (WRVU 2.88) performed by Alonzo Cevallos MD at [facility] MAIN OR Medications: Current Facility-Administered Medications on [...] who have questions please contact the health client care consultant that requested your imaging first. Electronically signed by: Anthony Mcdonald MD, [facility] ([phone]), at 07/09/2023 6:44 PM IR Nephrogram/Nephrostomy Tube [...] PM EDT Office Visit Hematology/Oncology at [address] [address] Chase Mckay MD [facility] [address] HEMATOLOGY [place] [address] documented as of this encounter Procedures Procedure Name Priority Date/Time Associated Diagnosis Comments SCAN, PERIPHERAL BLOOD Routine 1:48 AM EDT HEMOGRAM Routine 07/10/2023 1:48 AM EDT DIFFERENTIAL, AUTOMATED Routine 07/10/2023 1:48 AM EDT CBC (WITH DIFF) Routine 07/10/2023 1:48 AM EDT PHOSPHORUS Routine 07/10/2023 1:48 AM EDT MAGNESIUM Routine 07/10/2023 1:48 AM EDT BASIC METABOLIC PANEL Routine 07/10/2023 1:48 AM EDT URINALYSIS MICROSCOPIC EXAM STAT 07/10/2023 12:10 AM EDT URINALYSIS MICROSCOPIC EXAM STAT 07/10/2023 12:10 AM EDT URINALYSIS WITH REFLEX CULTURE STAT 07/10/2023 12:10 AM EDT URINALYSIS WITH REFLEX CULTURE STAT 07/10/2023 12:10 AM EDT URINE CULTURE STAT 07/10/2023 12:10 AM EDT IR NEPHROGRAM/NEPHROSTOMY TUBE EXCHANGE BILATERAL STAT 07/09/2023 10:02 PM EDT BLOOD CULTURE STAT 07/09/2023 8:41 PM EDT BLOOD CULTURE STAT 07/09/2023 8:[address] ABDOMEN AND PELVIS WO CONTRAST STAT 07/09/2023 6:22 PM EDT HEMOGRAM STAT 07/09/2023 4:54 PM EDT DIFFERENTIAL, AUTOMATED STAT 07/09/2023 4:54 PM EDT GOLD TUBE HOLD STAT 07/09/2023 4:54 PM EDT BLUE TUBE HOLD STAT 07/09/2023 4:54 PM EDT CBC (WITH DIFF) STAT 07/09/2023 4:54 PM EDT COMPREHENSIVE METABOLIC PANEL STAT 07/09/2023 4:54 PM EDT documented in this encounter Results * Phosphorus (07/10/2023 1:48 AM EDT) Phosphorus 4.0 2.5 - 4.5 mg/dL [facility] Blood Venous Draw / Unknown 07/10/2023 1:48 AM EDT 07/10/2023 1:59 AM EDT Narrative Resulting Agency Comment Spec In Lab Louie Trujillo MD CHEMISTRY ORDERABL ES [facility] [place] [address] * Magnesium (07/10/2023 1:48 AM EDT) Magnesium 0.90 0.69 - 1.07 mmol/L [facility] Blood Venous Draw / Unknown 07/10/2023 1:48 AM EDT 07/10/2023 1:59 AM EDT Narrative Resulting Agency Comment Spec In Lab Louie Trujillo MD CHEMISTRY ORDERABL ES Performing Organization Address City/[facility]/[place] [address] * Scan, Peripheral Blood (07/10/2023 1:48 AM EDT) Pathologist [facility] Plat estimate Increased [facility] RBC Morphology Abnormal [facility] Microcyte 1-5 /HPF [facility] Hypochromia Slight [facility] Blood 07/10/2023 1:48 AM EDT 07/10/2023 1:56 AM EDT Narrative Resulting Agency Comment Spec In Lab Kang Rea MD HEMATOLOGY ORDERABLE S Performing Organization Address City/[facility]/[place] [address] * (ABNORMAL) Differential, Automated (07/10/2023 1:48 AM EDT) Pathologist [facility] Neutrophil % 63.2 % [facility] Neutrophil Absolute 6.36(H) 1.70 - 6.10 x10(3)/mc L [facility] Lymph % 19.3 % [facility] Lymphocytes Abs 1.9 0.9 - 3.2 x10(3)/mc L [facility] Monocyte % 15.3 % [facility] Monocyte Abs 1.5(H) 0.3 - 0.9 x10(3)/mc L [facility] Eos % 1.0 % [facility] Eosinophils Abs 0.1 0.0 - 0.4 x10(3)/mc L [facility] Basophil % 0.4 % [facility] Baso Absolute 0.0 0.0 - 0.1 x10(3)/mc L [facility] Immature Gran % 0.80 % [facility] Comment: Immature granulocytes(IG's)percentage and absolute count will include metamyelocytes, myelocytes, and promyelocytes. Blood smears from CBCs yielding IG's will be scanned manually for concordance. If this scan disagrees with the automated IG or if promyelocytes are noted, a manual differential will be performed. Immature Gran Absolute 0.08(H) 0.00 - 0.04 x10(3)/ L [facility] Blood 07/10/2023 1:48 AM EDT 07/10/2023 1:56 AM EDT Narrative Resulting Agency Comment Spec In Lab Kang Rea MD HEMATOLOGY ORDERABLE S [facility] [place] [address] * (ABNORMAL) Hemogram (07/10/2023 1:48 AM EDT) White Blood Cell 10.1(H) 4.0 - 9.5 x10(3)/[facility] Red Blood Cell 4.51 4.00 - 5.21 x10(6)/[facility] Hemoglobin 11.1(L) 11.7 - 15.5 g/dL [facility] Hematocrit 34.6(L) 35.7 - 45.8 % [facility] Mean Cell Volume 76.7(L) 82.6 - 94.4 fL [facility] Mean Cell Hemoglobin 24.6(L) 27.1 - 32.0 pg [facility] Mean Cell Hemoglobin Concentration 32.1 31.7 - 35.0 g/dL [facility] Platelet 405(H) 145 - 357 x10(3)/ L [facility] RDW Standard Deviation 46.4(H) 37.0 - 46.0 fL [facility] RDW coefficient of variation 16.6(H) 11.5 - 14.1 % [facility] Mean Platelet Volume 8.8 7.6 - 12.9 fL [facility] NRBC% auto 0.0 % [facility] NRBC Absolute 0.000 0.000 - 0.000 x10(3)/ L [facility] Blood 07/10/2023 1:48 AM EDT 07/10/2023 1:56 AM EDT Narrative Resulting Agency Comment Spec In Lab Kang Rea MD HEMATOLOGY ORDERABLE S [facility] [place] [address] * (ABNORMAL) Basic Metabolic Panel (non-fasting) (07/10/2023 1:48 AM EDT) Glucose 96 65 - 199 mg/dL [facility] Comment:Diabetes: >=200 mg/d L plus symptoms Blood Urea Nitrogen 22(H) 8 - 18 mg/dL [facility] Creatinine 1.85(H) 0.70 - 1.20 mg/dL [facility] Sodium 132(L) 135 - 145 mmol/L [facility] Potassium 3.9 3.5 - 5.0 mmol/L [facility] Comment: Please note: ??Patients with WBC >100,000 may have falsely elevated Potassium levels. ??For accurate Potassium quantification in these patients send serum separator tube (gold top) for subsequent determinations. ??Contact the Clinical Chemistry Laboratory if there are any questions. Chloride 102 98 - 107 mmol/L [facility] Carbon Dioxide 22 22 - 31 mmol/L [facility] Anion Gap 8 5 - 15 mmol/L [facility] Calcium 7.9(L) 8.5 - 10.5 mg/dL [facility] Comment:result rechecked-RSG Est Glomerular Filtration Rate 29(L) >=60 mL/min/1. 73 m?? [facility] Comment: This patient's estimated GFR was [...] In Lab Mathew Mayers MD CHEMISTRY ORDERABLES [facility] [place] [address] * (ABNORMAL) Urine culture (07/10/2023 12:10 AM EDT) Urine Culture 10,000-49,0 00 cfu/ml Proteus vulgaris(A) [facility] Organism Proteus vulgaris(A) [facility] Nephrostomy Urine 07/10/2023 12:10 AM EDT [...] Rea MD MICROBIOLOGY - GENER AL ORDERABLES [facility] [place] [address] * (ABNORMAL) Urinalysis Microscopic Exam (07/10/2023 12:10 AM EDT) RBC, Urine >100(H) 0 - 4 /HPF [facility] WBC, Urine 78(H) 0 - 5 /HPF [facility] Bacteria, Urine Rare(A) None /HPF [facility] Squamous Epithelial Cells Raw Data, Urine 1 <=4 /HPF [facility] Hyaline Casts, Urine <1 0 - 2 /LPF [facility] Nephrostomy Urine 07/10/2023 12:10 AM EDT 07/10/2023 12:23 AM EDT Narrative Resulting Agency Comment Spec In Lab Kang Rea MD URINE ORDERABLES Performing Organization Address City/[facility]/ZIP Co de Phone Number [facility] [place] [address] * (ABNORMAL) Urinalysis Microscopic Exam (07/10/2023 12:10 AM EDT) RBC, Urine >100(H) 0 - 4 /HPF [facility] WBC, Urine 49(H) 0 - 5 /HPF [facility] Bacteria, Urine Occasiona l(A) None /HPF [facility] Squamous Epithelial Cells Raw Data, Urine 10(H) <=4 /HPF [facility] Transitional Epithelial Cells, Urine <1 <=1 /HPF [facility] Renal Epithelial Cells, Urine <1(H) <=0 /HPF [facility] Hyaline Casts, Urine <1 0 - 2 /LPF [facility] Nephrostomy Urine 07/10/2023 12:10 AM EDT 07/10/2023 12:22 AM EDT Narrative Resulting Agency Comment Spec In Lab Kang Rea MD URINE ORDERABLES Performing Organization Address City/[facility]/ZIP Co de Phone Number [facility] [place] [address] * (ABNORMAL) Urinalysis with reflex Culture (07/10/2023 12:10 AM EDT) Glucose, Urine Dipstick Negative Negative mg/dL [facility] Protein, Urine Dipstick 100(A) Negative mg/dL [facility] Bilirubin, Urine Dipstick Negative Negative mg/dL [facility] Comment: Clinical correlation required for positive Urine Bilirubin results as false positive may occur with some drugs and drug related products. If a false positive is suspected a serum total bilirubin should be considered if clinically indicated. Urobilinogen, Urine Dipstick Normal Normal mg/dL [facility] pH, Urn (dipstick) 6.5 5.0 - 8.0 [facility] Blood, Urine Dipstick Large(A) Negative mg/dL [facility] Ketone, Urine Dipstick Negative Negative mg/dL [facility] Nitrite, Urine Dipstick Negative Negative [facility] Leukocytes, Urine Dipstick Large(A) Negative mcL [facility] Appearance, Urine Dipstick Cloudy(A) Clear [facility] Specific [place] Urine Automated 1.013 1.005 - 1.030 [facility] Color, Urine Dipstick [place](A) Yellow [facility] Reflex to Culture Dup Culture [facility] Nephrostomy Urine 07/10/2023 12:10 AM EDT 07/10/2023 12:22 AM EDT Narrative Resulting Agency Comment Spec In Lab Mathew Mayers MD URINE ORD ERABLES [facility] [address] * (ABNORMAL) Urinalysis with reflex Culture (07/10/2023 12:10 AM EDT) Glucose, Urine Dipstick Negative Negative mg/dL [facility] Protein, Urine Dipstick >=300(A) Negative mg/dL [facility] Bilirubin, Urine Dipstick Negative Negative mg/dL [facility] Comment: Clinical correlation required for positive Urine Bilirubin results as false positive may occur with some drugs and drug related products. If a false positive is suspected a serum total bilirubin should be considered if clinically indicated. Urobilinogen, Urine Dipstick Normal Normal mg/dL [facility] pH, Urn (dipstick) 6.0 5.0 - 8.0 [facility] Blood, Urine Dipstick Large(A) Negative mg/dL [facility] Ketone, Urine Dipstick Negative Negative mg/dL [facility] Nitrite, Urine Dipstick Negative Negative [facility] Leukocytes, Urine Dipstick Moderate(A) Negative mcL [facility] Appearance, Urine Dipstick Cloudy(A) Clear [facility] Specific Condon Urine Automated 1.021 1.005 - 1.030 [facility] Color, Urine Dipstick Yellow Yellow [facility] Reflex to Culture Yes [facility] Nephrostomy Urine 07/10/2023 12:10 AM EDT 07/10/2023 12:23 AM EDT Narrative Resulting Agency Comment Spec In Lab Mathew Mayers MD URINE ORD ERABLES [facility] [place] [address] * IR Nephrogram/Nephrostomy Tube Exchange Bilateral (07/09/2023 10:02 PM EDT) Anatomical Region Laterality Modality X-Ray Angiograph y Narrative 07/10/2023 8:04 AM EDT Preoperative Diagnosis: ? Chronic indwelling nephrostomy tubes, right obstructed ??for exchange in the setting of UTI, Pyelo, right tube obstructed. Postoperative Diagnosis: ?? Same Procedure Performed: Over the wire exchange of nephrostomy tubes Estimated Blood Loss: None Fluoroscopy time: Please see [facility] IR technologist record for procedural dose/time Operators: [...] the entire procedure. ?? Delon Manuel MD IMG IR ORDERABLES * Blood culture (07/09/2023 8:41 PM EDT) Blood Culture No growth at 5 days. [facility] Blood 07/09/2023 8:41 PM EDT 07/09/2023 9:09 PM EDT Comment:LH Narrative Resulting Agency Comment Spec In Lab Delon Manuel MD MICROBIOLOGY - BLOOD ORDERABLES Performing Organization Address [facility] Co de Phone Number [facility] [place] [address] * Blood culture (07/09/2023 8:31 PM EDT) Blood Culture No growth at 5 days. [facility] Blood 07/09/2023 8:31 PM EDT 07/09/2023 9:11 PM EDT Comment:RH Narrative Resulting Agency Comment Spec In Lab Delon Manuel MD MICROBIOLOGY - BLOOD ORDERABLES Performing Organization Address [facility] Co de Phone Number [facility] [place] [address] * CT Abdomen & Pelvis wo Contrast [...] who have questions please contact the health client care consultant that requested your imaging first. ? Electronically signed by: Anthony Mcdonald MD, [facility] ([phone]), at 07/09/2023 6:44 PM Narrative 07/09/2023 6:44 [...] patients who have questions please contactthe health client care consultant that requested your imaging first. Electronically signed by: Anthony Mcdonald MD, [facility]([phone]), at 07/09/2023 6:44 PM Judson Alex APRN IMG CT ORDERABLES * Gold Tube HOLD (07/09/2023 4:54 PM EDT) Gold Hold Sample in lab. [facility] Blood Venous Draw / Unknown 07/09/2023 4:54 PM EDT 07/09/2023 5:18 PM EDT Judson Bacaicoa HEAD TENNIS PROFESSIONAL CHEMISTRY ORDERABLES Performing Organization Address City/[facility]/[place] [address] * Blue Tube HOLD (07/09/2023 4:54 PM EDT) Blue Hold Sample in lab. [facility] Blood Venous Draw / Unknown 07/09/2023 4:54 PM EDT 07/09/2023 5:18 PM EDT Judson Bacaicoa HEAD TENNIS PROFESSIONAL HEMATOLOGY ORDERABLE S Performing Organization Address City/[facility] [place] [place] [address] * (ABNORMAL) Differential, Automated (07/09/2023 4:54 PM EDT) Neutrophil % 72.9 % [facility] Neutrophil Absolute 8.85(H) 1.70 - 6.10 x10(3)/mc L [facility] Lymph % 13.5 % [facility] Lymphocytes Abs 1.6 0.9 - 3.2 x10(3)/mc L [facility] Monocyte % 10.6 % [facility] Monocyte Abs 1.3(H) 0.3 - 0.9 x10(3)/mc L [facility] Eos % 1.2 % [facility] Eosinophils Abs 0.1 0.0 - 0.4 x10(3)/mc L [facility] Basophil % 0.6 % [facility] Baso Absolute 0.1 0.0 - 0.1 x10(3)/mc L [facility] Immature Gran % 1.20 % [facility] Comment: Immature granulocytes(IG's)percentage and absolute count will include metamyelocytes, myelocytes, and promyelocytes. Blood smears from CBCs yielding IG's will be scanned manually for concordance. If this scan disagrees with the automated IG or if promyelocytes are noted, a manual differential will be performed. Immature Gran Absolute 0.14(H) 0.00 - 0.04 x10(3)/mc L [facility] Blood 07/09/2023 4:54 PM EDT 07/09/2023 5:18 PM EDT Narrative Resulting Agency Comment Spec In Lab Judson Bacaicoa HEAD TENNIS PROFESSIONAL HEMATOLOGY ORDERABLE S [facility] [place] [address] * (ABNORMAL) Hemogram (07/09/2023 4:54 PM EDT) White Blood Cell 12.1(H) 4.0 - 9.5 x10(3)/mc L [facility] Red Blood Cell 5.34(H) 4.00 - 5.21 x10(6)/mc L [facility] Hemoglobin 12.9 11.7 - 15.5 g/dL [facility] Hematocrit 41.6 35.7 - 45.8 % [facility] Mean Cell Volume 77.9(L) 82.6 - 94.4 fL [facility] Mean Cell Hemoglobin 24.2(L) 27.1 - 32.0 pg [facility] Mean Cell Hemoglobin Concentration 31.0(L) 31.7 - 35.0 g/dL [facility] Platelet 547(H) 145 - 357 x10(3)/mc L [facility] RDW Standard Deviation 47.7(H) 37.0 - 46.0 fL [facility] RDW coefficient of variation 17.1(H) 11.5 - 14.1 % [facility] Mean Platelet Volume 9.2 7.6 - 12.9 fL [facility] NRBC% auto 0.0 % [facility] NRBC Absolute 0.000 0.000 - 0.000 x10(3)/mc L [facility] Blood 07/09/2023 4:54 PM EDT 07/09/2023 5:18 PM EDT Narrative Resulting Agency Comment Spec In Lab Judson Bacaicoa HEAD TENNIS PROFESSIONAL HEMATOLOGY ORDERABLE S [facility] [place] [address] * (ABNORMAL) Comprehensive metabolic panel (non-fasting) (07/09/2023 4:54 PM EDT) Glucose 112 65 - 199 mg/dL [facility] Comment:Diabetes: >=200 mg/d L plus symptoms Blood Urea Nitrogen 21(H) 8 - 18 mg/dL [facility] Creatinine 1.84(H) 0.70 - 1.20 mg/dL [facility] Sodium 136 135 - 145 mmol/L [facility] Potassium 4.1 3.5 - 5.0 mmol/L [facility] Comment: Please note: ??Patients with WBC >100,000 may have falsely elevated Potassium levels. ??For accurate Potassium quantification in these patients send serum separator tube (gold top) for subsequent determinations. ??Contact the Clinical Chemistry Laboratory if there are any questions. Chloride 101 98 - 107 mmol/L [facility] Carbon Dioxide 24 22 - 31 mmol/L [facility] Anion Gap 11 5 - 15 mmol/L [facility] Calcium 8.9 8.5 - 10.5 mg/dL [facility] Protein, Total 7.8 6.1 - 8.0 g/dL [facility] Albumin 3.8 3.2 - 5.2 g/dL [facility] Aspartate Aminotransferase 28 0 - 30 unit/L [facility] Alanine Aminotransferase 23 0 - 30 unit/L [facility] Alkaline Phosphatase 196(H) 35 - 105 unit/L [facility] Bilirubin, Total 0.7 0.2 - 1.3 mg/dL [facility] Est Glomerular Filtration Rate 29(L) >=60 mL/min/1. 73 m?? [facility] Comment: This patient's estimated GFR was [...] Agency Comment Spec In Lab Judson Alex HEAD TENNIS PROFESSIONAL CHEMISTRY ORDERABLES [facility] [place] [address] documented in this encounter Visit Diagnoses Diagnosis [...] Nicolasa 07/10/23 at 0600, Until Discontinued, Routine Given 07/10/2023 5:02 AM EDT 75 mcg sodium chloride 0.9 % (flush) (BD PosiFlush Normal Saline 0.9) flush 5 mL 5 mL, Intravenous, 2 TIMES DAILY, First dose on Nicolasa 07/10/23 at 0006, Until Discontinued, Routine Given 07/10/2023 [...] NIGHTLY, First dose (after last reorder) on Fri07/10/23 at 0016, Until Discontinued, Routine 0147 (Given - Provid er: Dianne Chahal RN - Comment: delayed due to patient care) lactated Ringers 1,000 mL IV bolus (COMPLETED) at 250 mL/hr, Intravenous, ONCE, 1 dose, On Fri07/09/23 at 1941 2036 (New Bag - Provider: Wanda Manuel RN) 0037 (Stopped - Provider: Dianne Chahal RN) levothyroxine (Synthroid) tablet 75 mcg 75 mcg, Oral, DAILY, First dose on Fri07/10/23 at 0600, Until Discontinued, Routine 0502 (Given - Provid er: Dianne Chahal RN) sodium chloride 0.9 % (flush) (BD PosiFlush Normal Saline 0.9) flush 5 mL 5 mL, Intravenous, 2 TIMES DAILY, First dose on Fri07/10/23 at 0006, Until Discontinued, Routine 0008 (Given - Provid er: Dianne Chahal RN)0846 (Given - Provider: Opal Echavarria RN) sulfamethoxazole-trimethop rim (Bactrim) 400-80 mg per tablet 1 tablet 1 tablet, Oral, EVERY 12 HOURS SCHEDULED (2 times per day), First dose on Fri07/09/23 at 2100, Until Discontinued, Routine, Indication for (Active or Suspected): Urinary Tract/Pyelonephritis 2212 (Given - Provider: Wanda Manuel RN) 0844 (Given - Provider: Opal Echavarria RN) traMADoL (Ultram) tablet 50 mg (COMPLETED) 50 [...] other ordered pain medications are indicated., Routine 843 (Given - Provid er: Opal Echavarria RN) [...] other ordered pain medications are indicated., Routine 015 (Given - Provid er: Dianne Chahal RN) [...] PRN, Starting on Fri07/09/23 at 2010, Until Nicolasa 07/10/23 at 1455, Pain, Routine 2021 (Given - Provider: Wanda Manuel RN) documented in this encounter Care Teams Template Worker Relationship Specialty Start Date End Date Tavia Ramirez APRN [address] [place] [address] PCP - General Family Medicine 06/11/22 documented as of this encounter
--- OUTSIDE RECORDS SUMMARY | 2023-12-08 03:33 | XMS_ITS | Encounter Summary ---
Author Organization [facility] Address [facility] [place] [address] Care Team Providers Care Insurance Billing Clerk Name Role Phone Tavia Ramirez APRN Primary Care Provider [phone] Reason for Visit * Reason Onset Date Comments Follow-up 07/07/2023 Assess symptoms after restarting oral chemo Encounter Details Date Type Department Care Team (Late st Contact Info) Description 07/07/2023 Telephone Hematology/Oncology at [address] [phone] Margarita Watson, RN Follow-up (Assess [...] RN Sent: 07/07/2023 12:00 AM EDT To: [facility] Hem Onc Nurse Subject: call pt ----- Message ----- From: Dianne Jacob APRN Sent: 06/23/2023 3:48 PM EST To: Margarita Watson RN; [facility] Hem Onc [place] Addendum: Please ask triage to check in on her in 2 weeks to make sure she's tolerating this okay documented in this encounter Plan of Treatment Upcoming Encounters Date Type Department Care Team (Late st Contact Info) Description 12/08/2023 3:30 PM EDT Office Visit Hematology/Oncology at [address] [phone] Chase Mckay MD [facility] DR HEMATOLOGY [place] [address] documented as of this encounter Visit Diagnoses Not on filedocumented in this encounter Care Teams Insurance Billing Clerk Relationship Specialty Start Date End Date Tavia Ramirez [place] [address] [place] [address] PCP - General Family Medicine 06/11/22 documented as of this encounter
--- OUTSIDE RECORDS SUMMARY | 2023-12-08 03:33 | XMS_ITS | Encounter Summary ---
Author Organization [facility] [place] [address] Care Team Providers Care Senior It Business Analyst Name Role Phone Tavia Ramirez ALESSANDRO Primary Care Provider [phone] Encounter Details Date Type Department Care Team (Latest Contact Info) Description 07/21/2023 3:00 PM EDT Clinical Support Hematology/Oncology at [address] [phone] [facility] DR H[place]AT[place] [address] Metastatic urothelial carcinoma Social History Tobacco Use [...] in a longterm (including now)? No 03/27/2021 DH IPV Inpatient [...] intake at lower dose of Adagrasib. Breakfast: Paac [place] or muffin with coffee Lunch: Soup and sandwich Dinner: Mac n cheese or chop suey or hamburger Beverages: Patient lives in [place] with her daughter. 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
--- OUTSIDE RECORDS SUMMARY | 2023-12-08 03:33 | XMS_ITS | Encounter Summary ---
Author Organization [facility] Address [facility] [place] [address] Care Team Providers Care Icebox Worker Name Role Phone James Tavia Foster APRN Primary Care Provider [phone] Encounter Details Date Type Department Care Team (Late st Contact Info) Description 06/24/2023 Orders Only Hematology/Oncology at [address] [phone] Dianne Jacob APRN [address] [place] [address] DR HEMATOLOGY AND ONCOLOGY [place], [place] [id number] Primary malignant neoplasm of left lower lobe [...] PM EDT Office Visit Hematology/Oncology at [address] [phone] Chase Mckay MD [facility] DR HEMATOLOGY [place] [address] documented as of this encounter Visit Diagnoses Diagnosis 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
--- OUTSIDE RECORDS SUMMARY | 2023-12-08 03:33 | XMS_ITS | Encounter Summary ---
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 Procedures NM PET CT Skull Base to Mid-thigh Chase Mckay MD [facility] DR HEMATOLOGY [place] [address] [place] [address] Referral ID Status Reason Start Date Expiration Date V isits Requested Visits Authorized [id number] Closed Specialty Service Requested 07/21/2023 01/20/2025 1 1 Encounter Details Date Type Department Care Team (Late st Contact Info) Description 07/21/2023 2:30 PM EDT Office Visit Hematology/Oncology at [address] [phone] Chase Mckay MD [facility] DR HEMATOLOGY [place] [address] Dianne Jacob APRN [address] [place] [address] DR HEMATOLOGY AND ONCOLOGY [place], [place] [id number] Primary malignant neoplasm of left lower lobe [...] a nursing home (including now)? No 03/27/2021 DH IPV Inpatient [...] original note were not included. Thoracic Oncology [place] [phone] Barb Bullard is being seen for the [...] Trial (OMERO-7) [facility] and which demonstrated efficacy [...] nephrostomy tube exchanges through interventional radiology at [facility] -Will plan for restaging with PET scan in about 4 weeks and then follow-up with labs shortly thereafter Chase Mckay MD, MS 07/21/2023 Medical Oncology & Hematology [facility] CC: Atiya Patel MD HPI/Interval History/Subjective: [...] [facility]. Lives with her daughter. 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 Tobacco use: 30 pk year hx quit 2014 Alcohol use: Does not drink Drug use: None Financial Distress: Medicare A/B has financial assistance through the hospitals so not worried about food Jail or ability to pay for her cancer [...] of left lower lobe mass lung debulking ([id number]), the immunostain findings in the present case [...] of left lower lobe mass lung debulking ([id number]), the immunostain findings in the present case [...] test 03/27/2021 No Known Allergies Medications 07/21/23 3110 Medication Sig Taking? prochlorperazine (Compazine) 10 mg [...] PM EDT Office Visit Hematology/Oncology at [address] [phone] Chase Mckay MD [facility] DR HEMATOLOGY [place] [address] documented as of this encounter Results * NM PET CT Skull Base to Mid-thigh (08/19/2023 1:07 PM EDT) WORKSTATION ID [id number] RAD Anatomical Region Laterality Modality Positron Emissio [...] have questions please contact the health care worker that requested your imaging first. ? [...] of pleura TECHNIQUE: Following IV injection of 72-ggxkzw-7-deoxyglucose (FDG) a standard uptake of approximately 60 [...] of pleura TECHNIQUE: Following IV injection of 59-cuexqb-4-deoxyglucose (FDG) astandard uptake of approximately 60 minutes, [...] who have questions please contactthe health care worker that requested your imaging first. Electronically signed by: Chet Bowie [facility] ([phone]),at 08/21/2023 9:14 AM Chase Mckay MD IMG PET ORDERABLES * Magnesium (08/19/2023 10:20 AM EDT) Magnesium 0.94 0.69 - 1.07 mmol/L [facility] Blood 08/19/2023 10:2 0 AM EDT 08/19/2023 10:45 AM EDT Narrative Resulting Agency Comment Spec In Lab Chase Mckay MD CHEMISTRY ORDERABLES [facility] [place] [address] * (ABNORMAL) Comprehensive metabolic panel (non-fasting) (08/19/2023 10:20 AM EDT) Glucose 92 65 - 199 mg/dL [facility] Comment:Diabetes: >=200 mg/d L plus symptoms Blood Urea Nitrogen 19(H) 8 - 18 mg/dL [facility] Creatinine 1.74(H) 0.70 - 1.20 mg/dL [facility] Sodium 141 135 - 145 mmol/L [facility] Potassium 4.1 3.5 - 5.0 mmol/L [facility] Comment: Please note: ??Patients with WBC >100,000 may have falsely elevated Potassium levels. ??For accurate Potassium quantification in these patients send serum separator tube (gold top) for subsequent determinations. ??Contact the Clinical Chemistry Laboratory if there are any questions. Chloride 108(H) 98 - 107 mmol/L [facility] Carbon Dioxide 20(L) 22 - 31 mmol/L [facility] Anion Gap 13 5 - 15 mmol/L [facility] Calcium 9.0 8.5 - 10.5 mg/dL [facility] Protein, Total 8.3(H) 6.1 - 8.0 g/dL [facility] Albumin 3.8 3.2 - 5.2 g/dL [facility] Aspartate Aminotransferase 19 0 - 30 unit/L [facility] Alanine Aminotransferase 26 0 - 30 unit/L [facility] Alkaline Phosphatase 126(H) 35 - 105 unit/L [facility] Bilirubin, Total 1.0 0.2 - 1.3 mg/dL [facility] Est Glomerular Filtration Rate 31(L) >=60 mL/min/1. 73 m?? [facility] Mckay MD CHEMISTRY ORDERABLES Performing Organization Address City/State/[facility] Co de Phone Number [facility] [place] [address] documented in this encounter Visit Diagnoses Diagnosis [...] pleura documented in this encounter Care Teams Candle Pourer Relationship Specialty Start Date End Date Tavia Ramirez, SCHOOL AGE PROGRAM TEACHER [place] [address] PCP - General Family Medicine 06/11/22 documented as of this encounter
--- OUTSIDE RECORDS SUMMARY | 2023-12-08 03:33 | XMS_ITS | Encounter Summary ---
Author Organization [facility] [place] [address] Care Team Providers Care Transmission Maintenance Supervisor Name Role Phone James Tavia Foster APRN Primary Care Provider [phone] Reason for Visit * Reason Onset Date Comments Dehydration 05/27/2023 Encounter Details Date Type Department Care Team (Late st Contact Info) Description 05/27/2023 Telephone Hematology/Oncology at [address] [phone] Marci Chen RN Dehydration Social [...] Room via personal vehicle now Going to [facility], report called and will touch base [...] PM EDT Office Visit Hematology/Oncology at [address] [phone] Chase Mckay MD [facility] [address] [place] [address] documented as of this encounter Visit Diagnoses Not on filedocumented in this encounter Care Teams Transmission Maintenance Supervisor Relationship Specialty Start Date End Date Tavia Ramirez APRN [place] [address] PCP - General Family Medicine 06/11/22 documented as of this encounter
--- OUTSIDE RECORDS SUMMARY | 2023-12-08 03:33 | XMS_ITS | Encounter Summary ---
Author Organization [facility] [place] [address] Care Team Providers Care Quebracho Tanner Name Role Phone Tavia Ramirez ALESSANDRO Primary Care Provider [phone] Encounter Details Date Type Department Care Team (Late st Contact Info) Description 05/17/2023 Notes [place] [phone] Jean Carlos Fenton, [facility] [place] [address] Social History Tobacco Use Types Packs/Day Years [...] IR Mediport Placement 04/02/2021 Yuval Sinclair PA [facility] INTERVENTION[facility] RAD IR NEPHROSTOMY TUBE EXCHANGE BILATERAL 04/24/2022 IR Nephrogram/Nephrostomy Tube Exchange Bilateral 04/24/2022 Alin Dillard MD [facility] INTERVENT[facility] RAD IR NEPHROSTOMY TUBE EXCHANGE BILATERAL 07/26/2022 IR Nephrogram/Nephrostomy Tube Exchange Bilateral 07/26/2022 Robe Hope PA [facility] INTERVENT[facility] RAD IR NEPHROSTOMY TUBE EXCHANGE BILATERAL 10/18/2022 IR Nephrogram/Nephrostomy Tube Exchange Bilateral 10/18/2022 Alexis De La Cruz MD [facility] INTERVENTION[facility] RAD IR NEPHROSTOMY TUBE EXCHANGE BILATERAL 12/11/2022 IR Nephrogram/Nephrostomy Tube Exchange Bilateral 12/11/2022 Alexis De La Cruz MD [facility] INTERVENT[facility] RAD IR NEPHROSTOMY TUBE EXCHANGE BILATERAL 02/13/2023 IR Nephrogram/Nephrostomy Tube Exchange Bilateral 02/13/2023 Alin Dillard MD [facility] INTERVENT[facility] RAD IR NEPHROSTOMY TUBE EXCHANGE BILATERAL 04/04/2023 IR Nephrogram/Nephrostomy Tube Exchange Bilateral Alin Dillard MD [facility] INTERVENT[facility] RAD IR NEPHROSTOMY TUBE EXCHANGE BILATERAL 04/25/2023 IR Nephrogram/Nephrostomy Tube Exchange Bilateral [facility] INTER[facility] RAD IR NEPHROSTOMY TUBE PLACEMENT PERCUTANEOUS BILATERAL 02/20/2021 IR Nephrostomy Tube Placement Percutaneous Bilateral [facility] INTERVENT[facility] RAD IR NEPHROURETERAL (NU) STENT PLACEMENT/CHECK/CHANGE 07/13/2021 IR Nephroureteral (NU) Stent Placement Check/Change 07/13/2021 Alexis De La Cruz MD [facility] INTERVENTIONLRAD IR NEPHROURETERAL (NU) STENT PLACEMENT/CHECK/CHANGE 10/23/2021 IR Nephroureteral (NU) Stent Placement Check/Change 10/23/2021 Zeferino Rosado MD [facility] INTERVENTIONL RAD IR NEPHROURETERAL (NU) STENT PLACEMENT/CHECK/CHANGE 01/18/2022 IR Nephroureteral (NU) Stent Placement Check/Change 01/18/2022 Guillermo Nice MD [facility] INTERVENTIONLRAD PRO [facility] EBUS GUIDED SAMPL / NODE STATION/STRUX N/A 04/04/2021 BRONCH, W ENDOBRONCHIAL ULTRASOUND (EBUS) GUIDED SAMPLING, 3+ NODES (WRVU 5.21) performed by Alonzo Cevallos MD at [facility] MAIN OR PRO BRONCHOSCOPY, DIAGNOSTIC W LAVAGE N/A 04/04/2021 BRONCHOSCOPY, RIGID OR FLEXIBLE, WITH BRONCHIAL ALVEOLAR LAVAGE (WRVU 2.88) performed by Alonzo Cevallos MD at [facility] MAIN OR Medications: Current Outpatient [...] PM EDT Office Visit Hematology/Oncology at [address] [phone] Chase Mckay MD [facility] DR HEMATOLOGY [place] [address] documented as of this encounter Visit Diagnoses Not on filedocumented in this encounter Care Teams Quebracho Tanner Relationship Specialty Start Date End Date Tavia Ramirez [place] [address] [place] [address] PCP - General Family Medicine 06/11/22 documented as of this encounter
--- OUTSIDE RECORDS SUMMARY | 2023-12-08 03:33 | XMS_ITS | Encounter Summary ---
Author Organization [facility] Address [facility] [place] [address] Care Team Providers Care Receiver/Laborer Name Role Phone Tavia Ramirez APRN Primary Care Provider [phone] Reason for Visit * Reason Onset Date Comments New Medication Request 05/13/2023 Starting new med adagrasib Encounter Details Date Type Department Care Team (Late st Contact Info) Description 05/13/2023 Telephone Hematology/Oncology at [address] [phone] Pamella East RN New Medication [...] patient. The patient: filled the prescription at [facility] pharmacy and will start to take this [...] PM EDT Office Visit Hematology/Oncology at [address] [phone] Chase Mckay MD [facility] [place] [address] documented as of this encounter Visit Diagnoses Not on filedocumented in this encounter Care Teams Receiver/Laborer Relationship Specialty Start Date End Date Tavia Ramirez APRN [address] [place] [address] PCP - General Family Medicine 06/11/22 documented as of this encounter
--- OUTSIDE RECORDS SUMMARY | 2023-12-08 03:33 | XMS_ITS | Encounter Summary ---
Author Organization [facility] Address [facility] [place] [address] Care Team Providers Care Dowel Setting Machine Operator Name Role Phone Tavia Ramirez APRN Primary Care Provider [phone] Reason for Visit * Reason Onset Date Comments Other 07/07/2023 Encounter Details Date Type Department Care Team (Late st Contact Info) Description 07/07/2023 Telephone Hematology/Oncology at [address] [phone] Pamella East RN Other Social [...] review Name of Guideline/Protocol Used: Byron Kamara HAND EDGER documented in this encounter Plan of Treatment Upcoming Encounters Date Type Department Care Team (Late st Contact Info) Description 12/08/2023 3:30 PM EDT Office Visit Hematology/Oncology at [address] [phone] Chase Mckay MD [facility] HEMATOLOGY [place] [address] documented as of this encounter Visit Diagnoses Not on filedocumented in this encounter Care Teams Dowel Setting Machine Operator Relationship Specialty Start Date End Date Tavia Ramirez APRN [address] [place] [address] PCP - General Family Medicine 06/11/22 documented as of this encounter
--- OUTSIDE RECORDS SUMMARY | 2023-12-08 03:33 | XMS_ITS | Encounter Summary ---
Author Organization [facility] Address [facility] [place] [address] Care Team Providers Care Flight Test Engineer Name Role Phone James Tavia Foster APRN Primary Care Provider [phone] Encounter Details Date Type Department Care Team [...] PM EDT Office Visit Hematology/Oncology at [address] [phone] Chase Mckay MD [facility] DR HEMATOLOGY [place] [address] documented as of this encounter Visit Diagnoses Not on filedocumented in this encounter Care Teams Flight Test Engineer Relationship Specialty Start Date End Date Tavia Ramirez [place] [address] [place] [address] PCP - General Family Medicine 06/11/22 documented as of this encounter
--- OUTSIDE RECORDS SUMMARY | 2023-12-08 03:33 | XMS_ITS | Encounter Summary ---
Author Organization [facility] Address [facility] [place] [address] Care Team Providers Care Sales Forecast Analyst Name Role Phone James Tavia Foster APRN Primary Care Provider [phone] Encounter Details Date Type Department Care Team [...] in a fci (including now)? No 03/27/2021 DH IPV Inpatient [...] PM EDT Office Visit Hematology/Oncology at [address] [phone] Chase Mckay MD [facility] DR HEMATOLOGY [place] [address] documented as of this encounter Visit Diagnoses Not on filedocumented in this encounter Care Teams Sales Forecast Analyst Relationship Specialty Start Date End Date Tavia Ramirez APRN [address] [place] [address] PCP - General Family Medicine 06/11/22 documented as of this encounter
--- OUTSIDE RECORDS SUMMARY | 2023-12-08 03:33 | XMS_ITS | Encounter Summary ---
Author Organization [facility] Address [facility] [place] [address] Care Team Providers Care Dental Assistant Teacher Name Role Phone Tavia Ramirez ALESSANDRO Primary Care Provider [phone] Encounter Details Date Type Department Care Team (Late st Contact Info) Description 05/13/2023 Telephone Hematology/Oncology at [address] [phone] Chase Mckay MD [facility] DR HEMATOLOGY [place] [address] Social History Tobacco Use Types Packs/Day Years [...] PM EDT Office Visit Hematology/Oncology at [address] [phone] Chase Mckay MD [facility] DR HEMATOLOGY [place] [address] documented as of this encounter Visit Diagnoses [...] pleura documented in this encounter Care Teams Dental Assistant Teacher Relationship Specialty Start Date End Date Tavia Ramirez, BARREL BUILDER [place] [address] [place] [address] PCP - General Family Medicine 06/11/22 documented as of this encounter
--- OUTSIDE RECORDS SUMMARY | 2023-12-08 03:33 | XMS_ITS | Encounter Summary ---
Author Organization [facility] Address [place] [address] Care Team Providers Care Technician Test Systems Name Role Phone James Tavia Foster APRN [...] PM EDT Office Visit Hematology/Oncology at [address] [phone] Chase Mckay MD [facility] DR [place] [address] documented as of this encounter Visit Diagnoses Not on filedocumented in this encounter Care Teams Technician Test Systems Relationship Specialty Start Date End Date Tavia Ramirez [place] [address] [place] [address] PCP - General Family Medicine 06/11/22 documented as of this encounter
--- OUTSIDE RECORDS SUMMARY | 2023-12-08 03:34 | XMS_ITS | Encounter Summary ---
Author Organization [facility] [place] [address] Care Team Providers Care Merchandise Clerk Name Role Phone Tavia Ramirez APRN Primary Care Provider [phone] Reason for Visit * Reason Comments Chemotherapy C33 Pembrolizumab * Treatment/Therapy Plan Authorization (Routine) - Closed Specialty Diagnoses / Procedures Referred By Contac t Referred To Contact Hematology and Oncology Diagnoses Metastatic urothelial carcinoma Abnormal thyroid function test Procedures [id number] Jose Barnhart MD [address] [place] [address] [place] [address] Jose Lange MD [address] [place] [address] [place] [address] Referral ID Status Reason Start Date Expiration Date Visits Re quested Visits Authorized [id number] Closed 04/28/2022 06/24/2023 99 99 Encounter Details Date Type Department Care Team (Late st Contact Info) Description 04/01/2023 10:00 AM EST Infusion Hematology Oncology at [address] [phone] Metastatic urothelial carcinoma Social History Tobacco Use [...] PM EDT Office Visit Hematology/Oncology at [address] [phone] Chase Mckay MD [facility] DR [place]EMATOLOGY [place] [address] documented as of this encounter Visit Diagnoses [...] (IV) Procedure: Accessing Implanted Vascular Access Devices (622) procedure and/or Intravenous (IV) Job Aid: Adult Flushing & Catheter Care (2287) job aid for additional information regarding guidelines [...] Job Aid: Adult Flushing & Catheter Care (3691) job aid for additional information regarding guidelines and administration., Routine Given 04/01/2023 11:57 AM EST 20 mLs documented in this encounter Care Teams Merchandise Clerk Relationship Specialty Start Date End Date Tavia Ramirez, IMPROVEMENT SPECIALIST [facility] [place] [address] [place] [address] PCP - General Family Medicine 06/11/22 documented as of this encounter
--- OUTSIDE RECORDS SUMMARY | 2023-12-08 03:34 | XMS_ITS | Encounter Summary ---
Author Organization [facility] Address [facility] [place] [address] Care Team Providers Care Technical Sales Associate Name Role Phone James Tavia Foster APRN Primary Care Provider [phone] Encounter Details Date Type Department Care Team [...] PM EDT Office Visit Hematology/Oncology at [address] [phone] Chase Mckay MD [facility] DR [place] [address] documented as of this encounter Visit Diagnoses Not on filedocumented in this encounter Care Teams Technical Sales Associate Relationship Specialty Start Date End Date Tavia Ramirez [place] [place] [address] PCP - General Family Medicine 06/11/22 documented as of this encounter
--- OUTSIDE RECORDS SUMMARY | 2023-12-08 03:34 | XMS_ITS | Encounter Summary ---
[place] [address] Care Team Providers Care Senior Firmware Engineer Name Role Phone Tavia Ramirez APRN Primary Care Provider [phone] Encounter Details Date Type Department Care Team (Late st Contact Info) Description 04/25/2023 Telephone [place] [phone] Antione Dupree, [facility] [place] [address] Social History Tobacco Use Types Packs/Day Years [...] Plan/Instructions: Instructed the patient to come to [facility] for replacement exchange today due to worsening symptoms. Patient to be further evaluated in person. Patient expressed agreement to this plan and is arranging transport for herself to [facility] documented in this encounter Plan of Treatment Upcoming Encounters Date Type Department Care Team (Late st Contact Info) Description 12/08/2023 3:30 PM EDT Office Visit Hematology/Oncology at [address] [phone] Chase Mckay MD [facility] [place] [address] documented as of this encounter Visit Diagnoses Not on filedocumented in this encounter Care Teams Senior Firmware Engineer Relationship Specialty Start Date End Date Tavia Ramirez [place] [place] [address] PCP - General Family Medicine 06/11/22 documented as of this encounter
--- OUTSIDE RECORDS SUMMARY | 2023-12-08 03:34 | XMS_ITS | Encounter Summary ---
Author Organization [facility] Address [facility] [place] [address] Care Team Providers Care Investigations Manager Name Role Phone James Tavia Foster APRN Primary Care Provider [phone] Encounter Details Date Type Department Care Team (Late st Contact Info) Description 04/07/2023 3:45 PM EST Office Visit Hematology/Oncology at [address] [phone] Chase Mckay MD [facility] DR HEMATOLOGY [place] [address] Dianne Jacob APRN [address] [place] [address] DR HEMATOLOGY AND ONCOLOGY [place], [place] [id number] Primary malignant neoplasm of left lower lobe [...] original note were not included. [place] [address] [phone] Barb Bullard is being seen for the [...] Chase Mckay MD, MS 04/07/2023 Thoracic Oncology [facility] CC: Jose Lange MD HPI/Interval History/Subjective: Last seen 04/01/2023 Some issues with the stents- get changed every 6-8 weeks because of crustiness No side effecs from the pembrolizumab other midl rash No new rashes, changes in breathing, new cough, diarrhea. Eating is fine No weight loss Energy is decent. No pains Follows with [facility]. Eats fairly well. Weight generally stable at this point and has not continued to lose weight after losing ~40 lbs after summer. Can go up a flight of stairs-not limited by the breathing No fevers infections. Has received COVID J&J and Moderna booster . Social History/Support Network: Home situation: Lives in [place]. Lives with her daughter. 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 Tobacco use: 30 pk year hx quit [...] of left lower lobe mass lung debulking ([id number]), the immunostain findings in the present case [...] of left lower lobe mass lung debulking ([id number]), the immunostain findings in the present case [...] PM EDT Office Visit Hematology/Oncology at [address] [phone] Chase Mckay MD [facility] DR HEMATOLOGY [place] [address] documented as of this encounter Visit Diagnoses [...] pleura documented in this encounter Care Teams Investigations Manager Relationship Specialty Start Date End Date Tavia Ramirez, VICE PRESIDENT [place] [address] [address] PCP - General Family Medicine 06/11/22 documented as of this encounter
--- OUTSIDE RECORDS SUMMARY | 2023-12-08 03:34 | XMS_ITS | Encounter Summary ---
Author Organization [facility] Address [facility] [place] [address] Care Team Providers Care Value Stream Manager Name Role Phone James Tavia Foster APRN Primary Care Provider [phone] Encounter Details Date Type Department Care Team (Late st Contact Info) Description 04/01/2023 9:30 AM EST Office Visit Hematology/Oncology at [address] [phone] Jose Lange MD [facility] DR [place] [address] Katherine Sepulveda APRN [facility] [place] [address] Metastatic urothelial carcinoma; Hypothyroidism due to drugs; [...] were not included. Hematology & Medical Oncology [address] [phone] Barb returns today to continue treatment for [...] distinct lung primary. She was seen by visitor services specialist , who recommended rigid bronchoscopy with attempts [...] The assay was performed according to the laborer drying department's instructions using Anti-PD-L1 (22C3, pharmDX) antibody. Electronically signed by: Herbert Ford MD Verified: 04/11/2021 8:14 Pathologist Performed at: -[facility] Dept. of Pathology, [place], [place] Surgical Pathology DIAGNOSIS A - Lung, left lower lobe mass, debulking: - Adenocarcinoma, consistent with lung primary. Electronically signed by: Sana Dowell MD Verified: 04/06/2021 11:16 Pathologist Performed at: -[facility] Dept. of Pathology, [place], [place] DISCUSSION Sections show an invasive, predominantly [...] metastatic urothelial carcinoma which include [place] based chemotherapy versus immunotherapy. Due to her [...] back to her baseline of 1.3 07/17/21 Elizabteh returned today to continue treatment with Pebrolizumab. [...] up with nephrology. Continues with tube exchange [id number]. # Anemia- mild- asymptomatic. 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
--- OUTSIDE RECORDS SUMMARY | 2023-12-08 03:34 | XMS_ITS | Encounter Summary ---
[place] [address] Care Team Providers Care Extender Name Role Phone Tavia Ramirez APRN Primary Care Provider [phone] Reason for Referral * Diagnostic Test (Routine) - Closed Specialty Diagnoses / Procedures Referred By Contac t Referred To Contact Radiology Diagnoses Obstructive uropathy Procedures IR Nephrogram/Nephrostomy Tube Exchange Bilateral Alin Dillard MD [facility] [place] [address] [place] [address] Referral ID Status Reason Start Date Expiration Date V isits Requested Visits Authorized [id number] Closed Specialty Service Requested 04/25/2023 10/24/2024 1 1 * Diagnostic Test (Routine) - Closed Specialty Diagnoses / Procedures Referred By Contac t Referred To Contact Radiology Diagnoses Bilateral hydronephrosis Procedures IR Nephrogram/Nephrostomy Tube Exchange Bilateral Alin Dillard MD [facility] [place] [address] [place] [address] Referral ID Status Reason Start Date Expiration Date V isits Requested Visits Authorized [id number] Closed Specialty Service Requested 04/04/2023 10/03/2024 1 1 Reason for Visit * Diagnostic Test (Routine) - Closed Specialty Diagnoses / Procedures Referred By Etta t Referred To Contact Radiology Diagnoses Bilateral hydronephrosis Procedures IR Nephrogram/Nephrostomy Tube Exchange Bilateral Alin Dillard MD [facility] [place] [address] [facility] [place] [address] Referral ID Status Reason Start Date Expiration Date V isits Requested Visits Authorized [id number] Closed Specialty Service Requested 04/04/2023 10/03/2024 1 1 Encounter Details Date Type Department Care Team (Latest Contact Info) Description 04/25/2023 7:59 AM EST - 04/25/2023 11:59 PM EST Hospital [place] [address] Alin Dillard MD [facility] [place] [address] Bilateral hydronephrosis; Obstructive uropathy Discharge [...] from the original note were not included. [facility] Vascular and Interventional [...] connecting tubing from the drain. Put a shellfish dredge operator on both the drain and the bag. [...] is during regular office hours, please call [phone]. If it is after regular office hours, or on weekends or holidays, please call [phone] and ask to speak to the Federal Appellate Law Clerk memorial mason for Interventional Radiology. You have received medication [...] of : 1950 AGE: 72 y.o. Address: [address] [place] [phone] (home) Mobile: Telephone Information: Referring Provider: Alin Dillard REASON FOR VISIT: Order Questions Answers Where will study be performed? [facility] Radiology [120] Reason for exam and [...] IR Mediport Placement 04/02/2021 Yuval Sinclair PA [facility] INTERVENTIONL RAD IR NEPHROSTOMY TUBE EXCHANGE BILATERAL 04/24/2022 IR Nephrogram/Nephrostomy Tube Exchange Bilateral 04/24/2022 Alin Dillard MD [facility] INTERVENTIONL RAD IR NEPHROSTOMY TUBE EXCHANGE BILATERAL 07/26/2022 IR Nephrogram/Nephrostomy Tube Exchange Bilateral 07/26/2022 Robe Hope PA [facility] INTERVENTIONL RAD IR NEPHROSTOMY TUBE EXCHANGE BILATERAL 10/18/2022 IR Nephrogram/Nephrostomy Tube Exchange Bilateral 10/18/2022 Alexis De La Cruz MD [facility] INTERVENTIONL RAD IR NEPHROSTOMY TUBE EXCHANGE BILATERAL 12/11/2022 IR Nephrogram/Nephrostomy Tube Exchange Bilateral 12/11/2022 Alexis De La Cruz MD [facility] INTERVENTIONL RAD IR NEPHROSTOMY TUBE EXCHANGE BILATERAL 02/13/2023 IR Nephrogram/Nephrostomy Tube Exchange Bilateral 02/13/2023 Alin Dillard MD [facility] INTERVENTIONL RAD IR NEPHROSTOMY TUBE EXCHANGE BILATERAL 04/04/2023 IR Nephrogram/Nephrostomy Tube Exchange Bilateral Alin Dillard MD [facility] INTERVENTIONL RAD IR NEPHROSTOMY TUBE PLACEMENT PERCUTANEOUS BILATERAL 02/20/2021 IR Nephrostomy Tube Placement Percutaneous Bilateral [facility] INTERVENTIONL RAD IR NEPHROURETERAL (NU) STENT PLACEMENT/CHECK/CHANGE 07/13/2021 IR Nephroureteral (NU) Stent Placement Check/Change 07/13/2021 Alexis De La Cruz MD [facility] INTERVENTIONLRAD IR NEPHROURETERAL (NU) STENT PLACEMENT/CHECK/CHANGE 10/23/2021 IR Nephroureteral (NU) Stent Placement Check/Change 10/23/2021 Zeferino Rosado MD [facility] INTERVENTIONL RAD IR NEPHROURETERAL (NU) STENT PLACEMENT/CHECK/CHANGE 01/18/2022 IR Nephroureteral (NU) Stent Placement Check/Change 01/18/2022 Guillermo Nice MD [facility] INTERVENTIONLRAD PRO BRNCC EBUS GUIDED SAMPL 3/> NODE STATION/STRUX N/A 04/04/2021 BRONCH, W ENDOBRONCHIAL ULTRASOUND (EBUS) GUIDED SAMPLING, 3+ NODES (WRVU 5.21) performed by Alonzo Cevallos MD at [facility] MAIN OR PRO BRONCHOSCOPY, DIAGNOSTIC W LAVAGE N/A 04/04/2021 BRONCHOSCOPY, RIGID OR FLEXIBLE, WITH BRONCHIAL ALVEOLAR LAVAGE (WRVU 2.88) performed by Alonzo Cevallos MD at [facility] MAIN OR Medications: Current Outpatient Medications [...] PM EDT Office Visit Hematology/Oncology at [address] [address] Chase Mckay MD [facility] [place] [address] documented as of this encounter Procedures Procedure [...] renal pelves, exchanged. ? Alin Dillard MD [facility] IR ORDERABLES * IR [...] Loss: None Fluoroscopy time: Please see [facility] IR technologist record for procedural [...] renal collecting system. ?? A new 10 Indian nephrostomy tube was advanced over this wire, [...] obstruction, unspecified Obstructive uropathy Urinary obstruction, unspecified Primary malignant [...] mLs documented in this encounter Care Teams Extender Relationship Specialty Start Date End Date Tavia Ramirez, [employer] [address] [facility] [address] PCP - General Family Medicine 06/11/22 documented as of this encounter
--- OUTSIDE RECORDS SUMMARY | 2023-12-08 03:34 | XMS_ITS | Encounter Summary ---
Author Organization [facility] [place] [address] Care Team Providers Care Surg Tech Name Role Phone Tavia Ramirez APRN Primary Care Provider [phone] Reason for Visit * Reason Comments Chemotherapy C34 Pembrolizumab * Treatment/Therapy Plan Authorization (Routine) - Closed Specialty Diagnoses / Procedures Referred By Contac t Referred To Contact Hematology and Oncology Diagnoses Metastatic urothelial carcinoma Abnormal thyroid function test Procedures [id number] Jose Barnhart MD [address] [place] [address] [place] [address] Jose Lange MD [address] [place] [address] [place] [address] Referral ID Status Reason Start Date Expiration Date Visits Re quested Visits Authorized [id number] Closed 04/28/2022 06/24/2023 99 99 Encounter Details Date Type Department Care Team (Late st Contact Info) Description 04/22/2023 12:00 PM EST Infusion Hematology Oncology at [address] [phone] Metastatic urothelial carcinoma Social History Tobacco Use [...] to treat. LAB DATA: Done today at [facility] and adequate for treatment. IV ACCESS: [...] PM EDT Office Visit Hematology/Oncology at [address] [address] Chase Mckay MD [facility] DR [place] [address] documented as of this encounter Visit Diagnoses [...] (IV) Procedure: Accessing Implanted Vascular Access Devices (764) procedure and/or Intravenous (IV) Job Aid: Adult Flushing & Catheter Care (8724) job aid for additional information regarding guidelines [...] Job Aid: Adult Flushing & Catheter Care (7546) job aid for additional information regarding guidelines and administration., Routine Given 04/22/2023 1:13 PM EST 20 mLs sodium chloride 0.9% infusion 100 mL/hr, Intravenous, CONTINUOUS, Starting on Fri04/22/23 at 1230, Until Fri04/22/23 at 1530 New Bag 04/22/2023 12:38 PM EST 100 mL/hr 100 mL/hr documented in this encounter Care Teams Surg Tech Relationship Specialty Start Date End Date Tavia Ramirez APRN [address] [facility] [place] [address] PCP - General Family Medicine 06/11/22 documented as of this encounter
--- OUTSIDE RECORDS SUMMARY | 2023-12-08 03:34 | XMS_ITS | Encounter Summary ---
Author Organization [facility] Address [facility] [place] [address] Care Team Providers Care Recreation Engineer Name Role Phone James Tavia Foster APRN Primary Care Provider [phone] Encounter Details Date Type Department Care Team [...] PM EDT Office Visit Hematology/Oncology at [address] [address] Chase Mckay MD [facility] DR [place] [address] documented as of this encounter Visit Diagnoses Not on filedocumented in this encounter Care Teams Recreation Engineer Relationship Specialty Start Date End Date Tavia Ramirez [place] [address] [place] [address] PCP - General Family Medicine 06/11/22 documented as of this encounter
--- OUTSIDE RECORDS SUMMARY | 2023-12-08 03:34 | XMS_ITS | Encounter Summary ---
Author Organization [facility] Address [facility] [place] [address] Care Team Providers Care Adult Remedial Education Instructor Name Role Phone James Tavia Foster APRN Primary Care Provider [phone] Encounter Details Date Type Department Care Team [...] PM EDT Office Visit Hematology/Oncology at [address] [address] Chase Mckay MD [facility] DR HEMATOLOGY [place] [address] documented as of this encounter Visit Diagnoses Not on filedocumented in this encounter Care Teams Adult Remedial Education Instructor Relationship Specialty Start Date End Date Tavia Ramirez [place] [address] [place] [address] PCP - General Family Medicine 06/11/22 documented as of this encounter
--- OUTSIDE RECORDS SUMMARY | 2023-12-08 03:34 | XMS_ITS | Encounter Summary ---
[place] [address] Care Team Providers Care Wildlife Biostation Research Ecologist Name Role Phone Tavia Ramirez APRN Primary Care Provider [phone] Reason for Referral * Diagnostic Test (Routine) - Closed Specialty Diagnoses / Procedures Referred By Contac t Referred To Contact Radiology Diagnoses Bilateral hydronephrosis Procedures IR Nephrogram/Nephrostomy Tube Exchange Bilateral Alin Dillard MD [facility] [place] [address] [place] [address] Referral ID Status Reason Start Date Expiration Date V isits Requested Visits Authorized [id number] Closed Specialty Service Requested 04/04/2023 10/03/2024 1 1 * Diagnostic Test (Routine) - Closed Specialty Diagnoses / Procedures [facility] Referred To Contact Radiology Diagnoses Bilateral hydronephrosis Obstructive uropathy Procedures IR Nephrogram/Nephrostomy Tube Exchange Bilateral Alin Dillard MD [facility] [place] [address] [place] [address] Referral ID Status Reason Start Date Expiration Date V isits Requested Visits Authorized [id number] Closed Specialty Service Requested 02/13/2023 08/14/2024 1 1 Reason for Visit * Diagnostic Test (Routine) - Closed Specialty Diagnoses / Procedures Referred By Etta no Referred To Contact Radiology Diagnoses Bilateral hydronephrosis Obstructive uropathy Procedures IR Nephrogram/Nephrostomy Tube Exchange Bilateral Alin Dillard MD [facility] DR [place] [address] [facility] [place] [address] Referral ID Status Reason Start Date Expiration Date V isits Requested Visits Authorized [id number] Closed Specialty Service Requested 02/13/2023 08/14/2024 1 1 Encounter Details Date Type Department Care Team (Latest Contact Info) Description 04/04/2023 12:12 PM EST - 04/04/2023 11:59 PM EST Hospital En[place] [address] Alin Dillard MD [facility] DR [place]ION[place] [address] Bilateral hydronephrosis; Obstructive uropathy Discharge [...] from the original note were not included. [facility] Vascular and Interventional Radiology Discharge Instructions [...] connecting tubing from the drain. Put a corn shredder on both the drain and the bag. [...] is during regular office hours, please call [phone]. If it is after regular office hours, or on weekends or holidays, please call [phone] and ask to speak to the Mandrel Maker fire protection engineer for Interventional Radiology. Revised 02/11/19 documented in [...] of : 1950 AGE: 72 y.o. Address: [address] [place] [phone] (home) Mobile: Telephone Information: Referring Provider: Alin Dillard REASON FOR VISIT: Order Questions Answers Where will study be performed? [facility] Radiology [120] Reason for exam [...] PM EDT Office Visit Hematology/Oncology at [address] [address] Chase Mckay MD [facility] DR HEMATOLOGY [place] [address] documented as of this encounter Procedures Procedure [...] Blood Loss: None Fluoroscopy time: Please see [facility] IR technologist record for procedural [...] renal collecting system. ?? A new 10 Togolese nephrostomy tube was advanced over this wire, [...] performed the entire procedure. Alin Dillard MD [facility] IR ORDERABLES * IR Nephrogram/Nephrostomy Tube Exchange Bilateral (04/04/2023 1:59 PM EST) Anatomical Region Laterality Modality X-Ray Angiograph y Narrative 04/04/2023 1:51 PM EST Preoperative Diagnosis: ? Chronic indwelling bialteral nephrostomy tubes for routine change. Postoperative Diagnosis: ?? Same Procedure Performed: Over the wire exchange of nephrostomy tubes Estimated Blood Loss: None Fluoroscopy time: Please see [facility] IR technologist record for procedural [...] performed the entire procedure. Alin Dillard MD [facility] IR ORDERABLES documented in this encounter Visit Diagnoses Diagnosis Bilateral hydronephrosis Hydronephrosis Obstructive uropathy Urinary obstruction, unspecified Bilateral hydronephrosis Hydronephrosis Obstructive uropathy Urinary obstruction, unspecified Primary malignant [...] mLs documented in this encounter Care Teams Wildlife Biostation Research Ecologist Relationship Specialty Start Date End Date Tavia Ramirez, [place] [address] PCP - General Family Medicine 06/11/22 documented as of this encounter
--- OUTSIDE RECORDS SUMMARY | 2023-12-08 03:34 | XMS_ITS | Encounter Summary ---
Author Organization [place] [address] Care Team Providers Care On Site Nurse Name Role Phone James Tavia Foster APRN Primary Care Provider [phone] Reason for Visit * Diagnostic Test (Routine) - Closed Specialty Diagnoses / Procedures Referred By Contac t Referred To Contact Radiology Diagnoses Metastatic urothelial carcinoma 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 Procedures NM PET CT Skull Base to Mid-thigh Jose Lange MD [facility] DR HEMATOLOGY [place] [address] [place] [address] Referral ID Status Reason Start Date Expiration Date V isits Requested Visits Authorized [id number] Closed Specialty Service Requested 01/28/2023 07/29/2024 1 2 Encounter Details Date Type Department Care Team (Latest Contact Info) Description 03/07/2023 1:40 PM EST - 03/07/2023 11:[address] [facility] Hospital Encounter [place] [address] Jose Lange MD [facility] DR HEMATOLOGY [place] [address] Discharge Disposition: Home Social History [...] 3:30 PM EDT Office Visit Hematology/Oncology at [address] [address] Chase Mckay MD [facility] DR HEMATOLOGY [place] [address] documented as of this encounter Procedures Procedure Name Priority Date/Time Associated Diagnosis Comments NM PET CT SKULL BASE TO MID-THIGH ([facility]) Routine 03/07/2023 3:23 PM EST Metastatic urothelial carcinoma 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 POCT GLUCOSE Routine 03/07/2023 1:56 PM EST documented in this encounter Results * POCT Glucose (03/07/2023 1:56 PM EST) Glucose, POC 85 65 - 199 mg/dL [facility] Comment: Supplemental ranges: <140 mg/dL before meals <180 mg/dL all other times of the day Blood 03/07/2023 1:56 PM EST 03/07/2023 1:56 PM EST Jose Lange MD POINT OF CARE TEST O RDERABLES [facility] [place] [address] documented in this encounter Visit Diagnoses Not on filedocumented in this encounter Care Teams On Site Nurse Relationship Specialty Start Date End Date Tavia Ramirez [place] [address] [place] [address] PCP - General Family Medicine 06/11/22 documented as of this encounter
--- OUTSIDE RECORDS SUMMARY | 2023-12-08 03:34 | XMS_ITS | Encounter Summary ---
Author Organization [facility] Address [facility] [place] [address] Care Team Providers Care Internal Grinding Machine Operator Name Role Phone James Tavia [...] PM EDT Office Visit Hematology/Oncology at [address] [address] Chase Mckay MD [facility] DR HEMATOLOGY [place] [address] documented as of this encounter Visit Diagnoses Not on filedocumented in this encounter Care Teams Internal Grinding Machine Operator Relationship Specialty Start Date End Date Tavia Ramirez [place] [place] [address] PCP - General Family Medicine 06/11/22 documented as of this encounter
--- OUTSIDE RECORDS SUMMARY | 2023-12-08 03:34 | XMS_ITS | Encounter Summary ---
Author Organization [facility] Address [facility] [place] [address] Care Team Providers Care Caster Helper Name Role Phone James Tavia Foster APRN Primary Care Provider [phone] Encounter Details Date Type Department Care Team [...] PM EDT Office Visit Hematology/Oncology at [address] [address] Chase Mckay MD [facility] DR [place] [address] documented as of this encounter Visit Diagnoses Not on filedocumented in this encounter Care Teams Caster Helper Relationship Specialty Start Date End Date Tavia Ramirez APR[place] [address] PCP - General Family Medicine 06/11/22 documented as of this encounter
--- OUTSIDE RECORDS SUMMARY | 2023-12-08 03:34 | XMS_ITS | Encounter Summary ---
Author Organization [facility] [place] [address] Care Team Providers Care Stonework Tracer Name Role Phone Tavia Ramirez Cristian FRANCOIS Primary Care Provider [phone] Reason for Visit * Reason Comments Prior Authorization Imani Encounter Details Date Type Department Care Team (Late st Contact Info) Description 05/06/2023 Specialty [place] [phone] Trevon Kc, BUSINESS INTELLIGENCE DEVELOPER Social History Tobacco Use Types Packs/Day Years [...] Barb Bullard Patient : 1950 Patient Address: [address] [place] [phone] (home) Medication Name: KRAZATI 200 MG TABLET Medication ID: Subscriber Insurance: [employer] Subscriber Insurance Comment: Phone: [phone] Fax: Physician: LAURA CAPONE Physician Comment: Sent Via: [facility] Reid: [id number] Ref/Case/PA#: Medication Strength Frequency Requested: Take two tablets by mouth twice a day Qty/Day Supply: 120/30 New Start: New to Therapy Diagnosis & ICD-10 Code: NSCLC C34.32 Patient Notified: No Submission Notes: Blade Kc 05/06/23 9:35 AM * Trevon cK - 05/06/2023 9:34 AM EST [facility], Prior Authorization Approval Medication Name: KRAZATI 200 MG TABLET Medication ID: Approval Dates: 05/06/2023 to 04/27/2024 Insurance requirements/notes: None Other Notes: None Case/Reference #: [id number] Approval notification Received via: CMM Copay: $11.20 Copay assistance: Other (Enter Comment) Copay Notes: PT must fill with [facility] because Krazati is a limited distribution drug - the prescription has already been sent there Insurance mandated Pharmacy: Fillable at [facility] Specialty Pharmacy: No Patient Notified: No Pharmacy staff will be reaching out to the patient to inform them of their medication's [facility]. If applicable, a pharmacist will speak with the patient to offer our specialty pharmacy services and to arrange delivery of their medication. Trevon Kc 05/06/23 10:58 AM documented in this encounter Plan of Treatment Upcoming Encounters Date Type Department Care Team (Late st Contact Info) Description 12/08/2023 3:30 PM EDT Office Visit Hematology/Oncology at [address] [address] Laura Capone MD [facility] DR [place] [address] documented as of this encounter Visit Diagnoses Not on filedocumented in this encounter Care Teams Stonework Tracer Relationship Specialty Start Date End Date Tavia Ramirez [place] [address] [place] [address] PCP - General Family Medicine 06/11/22 documented as of this encounter
--- OUTSIDE RECORDS SUMMARY | 2023-12-08 03:34 | XMS_ITS | Encounter Summary ---
Author Organization [facility] [place] [address] Care Team Providers Care Powertrain Engineer Name Role Phone Tavia Ramirez ALESSANDRO Primary Care Provider [phone] Encounter Details Date Type Department Care Team (Late st Contact Info) Description 05/06/2023 Orders Only Hematology [place] [phone] Chase Mckay MD [facility] DR HEMATOLOGY AND ONCOLOGY [place] [id number] Social History Tobacco Use Types Packs/Day Years [...] PM EDT Office Visit Hematology/Oncology at [address] [address] Chase Mckay MD [facility] DR [place] [address] documented as of this encounter Visit Diagnoses Not on filedocumented in this encounter Care Teams Powertrain Engineer Relationship Specialty Start Date End Date Tavia Ramirez APRN [address] [place] [address] PCP - General Family Medicine 06/11/22 documented as of this encounter
--- OUTSIDE RECORDS SUMMARY | 2023-12-08 03:34 | XMS_ITS | Encounter Summary ---
Author Organization [facility] Address [facility] [place] [address] Care Team Providers Care Control Engineer Name Role Phone James Tavia Foster APRN Primary Care Provider [phone] Encounter Details Date Type Department Care Team (Late st Contact Info) Description 05/13/2023 2:30 PM EST Office Visit Hematology/Oncology at [address] [phone] Jose Lange MD [facility] [address] [place] [address] Katherine Sepulveda APRN [facility] [place] [address] Metastatic urothelial carcinoma [C79.10]; Primary malignant neoplasm [...] were not included. Hematology & Medical Oncology [address] [address] Barb returns today to continue [...] distinct lung primary. She was seen by automotive service cashier , who recommended rigid bronchoscopy with attempts [...] The assay was performed according to the fig washer's instructions using Anti-PD-L1 (22C3, pharmDX) antibody. Electronically signed by: Herbert Ford MD Verified: 04/11/2021 8:14 Pathologist Performed at: -[facility] Dept. of Pathology, [place], [place] Surgical Pathology DIAGNOSIS A - Lung, left lower lobe mass, debulking: - Adenocarcinoma, consistent with lung primary. Electronically signed by: Sana Dowell MD Verified: 04/06/2021 11:16 Pathologist Performed at: -[facility] Dept. of Pathology, [place], [place] DISCUSSION Sections show an invasive, predominantly [...] of presumably metastatic urothelial carcinoma which include [place] based chemotherapy versus immunotherapy. Due to her [...] up with nephrology. Continues with tube exchange [id number]. # Anemia- mild- asymptomatic. Continue to monitor [...] to face time. Hematology & Medical Oncology [place] [phone] Barb returns today to continue treatment for [...] distinct lung primary. She was seen by automotive service cashier , who recommended rigid bronchoscopy with attempts [...] The assay was performed according to the fig washer's instructions using Anti-PD-L1 (22C3, pharmDX) antibody. Electronically signed by: Herbert Ford MD Verified: 04/11/2021 8:14 Pathologist Performed at: -[facility] Dept. of Pathology, [place], [place] Surgical Pathology DIAGNOSIS A - Lung, left lower lobe mass, debulking: - Adenocarcinoma, consistent with lung primary. Electronically signed by: Sana Dowell MD Verified: 04/06/2021 11:16 Pathologist Performed at: -[facility] Dept. of Pathology, [place], [place] DISCUSSION Sections show an invasive, predominantly [...] of presumably metastatic urothelial carcinoma which include [place] based chemotherapy versus immunotherapy. Due to her [...] up with nephrology. Continues with tube exchange [id number]. # Anemia- mild- asymptomatic. Continue to monitor [...] PM EDT Office Visit Hematology/Oncology at [address] [phone] Chase Mckay MD [facility] [address] [place] [address] documented as of this encounter Visit Diagnoses [...] pleura documented in this encounter Care Teams Control Engineer Relationship Specialty Start Date End Date Tavia Ramirez APRN [address] [place] [address] PCP - General Family Medicine 06/11/22 documented as of this encounter
--- OUTSIDE RECORDS SUMMARY | 2023-12-08 03:34 | XMS_ITS | Encounter Summary ---
Author Organization [facility] Address [facility] [place] [address] Care Team Providers Care Corporate Learning Consultant Name Role Phone James Tavia Foster APRN Primary Care Provider [phone] Encounter Details Date Type Department Care Team [...] PM EDT Office Visit Hematology/Oncology at [address] [address] Chase Mckay MD [facility] [address] [place] [address] documented as of this encounter Visit Diagnoses Not on filedocumented in this encounter Care Teams Corporate Learning Consultant Relationship Specialty Start Date End Date Tavia Ramirez APRN [place] [address] PCP - General Family Medicine 06/11/22 documented as of this encounter
--- OUTSIDE RECORDS SUMMARY | 2023-12-08 03:34 | XMS_ITS | Encounter Summary ---
Author Organization [facility] [place] [address] Care Team Providers Care Supplier Specialist Name Role Phone Tavia Ramirez ALESSANDRO Primary Care Provider [phone] Encounter Details Date Type Department Care Team (Late st Contact Info) Description 02/28/2023 Notes [place] [phone] Ranjit Hale MD [facility] [place] [address] Social History Tobacco Use Types Packs/Day Years [...] PM EDT Office Visit Hematology/Oncology at [address] [address] Chase Mckay MD [facility] [address] HEMATOLOGY [place] [address] documented as of this encounter Visit Diagnoses Not on filedocumented in this encounter Care Teams Supplier Specialist Relationship Specialty Start Date End Date Tavia Ramirez [place] [address] [place] [address] PCP - General Family Medicine 06/11/22 documented as of this encounter
--- OUTSIDE RECORDS SUMMARY | 2023-12-08 03:34 | XMS_ITS | Encounter Summary ---
Author Organization [facility] Address [facility] [place] [address] Care Team Providers Care Bed Operator Name Role Phone James Tavia Foster APRN Primary Care Provider [phone] Encounter Details Date Type Department Care Team (Late st Contact Info) Description 04/22/2023 11:30 AM EST Office Visit Hematology/Oncology at [address] [phone] Jose Lange MD [facility] [place] [address] Katherine Sepulveda APRN [facility] [place] [address] Primary malignant neoplasm of left lower lobe [...] were not included. Hematology & Medical Oncology [address] [address] Barb returns today to continue treatment for [...] distinct lung primary. She was seen by licensed occupational therapist , who recommended rigid bronchoscopy with attempts [...] The assay was performed according to the kennel worker's instructions using Anti-PD-L1 (22C3, pharmDX) antibody. Electronically signed by: Herbert Ford MD Verified: 04/11/2021 8:14 Pathologist Performed at: -[facility] Dept. of Pathology, [place], [place] Surgical Pathology DIAGNOSIS A - Lung, left lower lobe mass, debulking: - Adenocarcinoma, consistent with lung primary. Electronically signed by: Sana Dowell MD Verified: 04/06/2021 11:16 Pathologist Performed at: -[facility] Dept. of Pathology, [place], [place] DISCUSSION Sections show an invasive, predominantly [...] of presumably metastatic urothelial carcinoma which include [place] based chemotherapy versus immunotherapy. Due to her [...] up with nephrology. Continues with tube exchange [id number]. # Anemia- mild- asymptomatic. 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
--- OUTSIDE RECORDS SUMMARY | 2023-12-08 03:34 | XMS_ITS | Encounter Summary ---
Author Organization [facility]ly [facility] [place] [address] Care Team Providers Care Power Manager Name Role Phone Tavia Ramirez ALESSANDRO Primary Care Provider [phone] Encounter Details Date Type Department Care Team (Late st Contact Info) Description 02/13/2023 Notes [place] [phone] Adeel Gutierrez MD [facility] [place] [address] Social History Tobacco Use Types Packs/Day Years [...] IR Mediport Placement 04/02/2021 Yuval Sinclair PA [facility] INTERVENTIONL RAD IR NEPHROSTOMY TUBE EXCHANGE BILATERAL 04/24/2022 IR Nephrogram/Nephrostomy Tube Exchange Bilateral 04/24/2022 Alin Dillard MD [facility] INTERVENTIONL RAD IR NEPHROSTOMY TUBE EXCHANGE BILATERAL 07/26/2022 IR Nephrogram/Nephrostomy Tube Exchange Bilateral 07/26/2022 Robe Hope PA [facility] INTERVENTIONL RAD IR NEPHROSTOMY TUBE EXCHANGE BILATERAL 10/18/2022 IR Nephrogram/Nephrostomy Tube Exchange Bilateral 10/18/2022 Alexis De La Cruz MD [facility] INTERVENTIONL RAD IR NEPHROSTOMY TUBE EXCHANGE BILATERAL 12/11/2022 IR Nephrogram/Nephrostomy Tube Exchange Bilateral 12/11/2022 Alexis De La Cruz MD [facility] INTERVENTIONL RAD IR NEPHROSTOMY TUBE PLACEMENT PERCUTANEOUS BILATERAL 02/20/2021 IR Nephrostomy Tube Placement Percutaneous Bilateral [facility] INTERVENTIONL RAD IR NEPHROURETERAL (NU) STENT PLACEMENT/CHECK/CHANGE 07/13/2021 IR Nephroureteral (NU) Stent Placement Check/Change 07/13/2021 Alexis De La Cruz MD [facility] INTERVENTIONLRAD IR NEPHROURETERAL (NU) STENT PLACEMENT/CHECK/CHANGE 10/23/2021 IR Nephroureteral (NU) Stent Placement Check/Change 10/23/2021 Zeferino Rosado MD [facility] INTERVENTIONL RAD IR NEPHROURETERAL (NU) STENT PLACEMENT/CHECK/CHANGE 01/18/2022 IR Nephroureteral (NU) Stent Placement Check/Change 01/18/2022 Guillermo Nice MD [facility] INTERVENTIONLRAD PRO [facility] EBUS GUIDED SAMPL 3/> NODE STATION/STRUX N/A 04/04/2021 BRONCH, W ENDOBRONCHIAL ULTRASOUND (EBUS) GUIDED SAMPLING, 3+ NODES (WRVU 5.21) performed by Alonzo Cevallos MD at [facility] MAIN OR PRO BRONCHOSCOPY, DIAGNOSTIC W LAVAGE N/A 04/04/2021 BRONCHOSCOPY, RIGID OR FLEXIBLE, WITH BRONCHIAL ALVEOLAR LAVAGE (WRVU 2.88) performed by Alonzo Cevallos MD at [facility] MAIN OR Medications: Current Outpatient Medications [...] PM EDT Office Visit Hematology/Oncology at [address] [address] Chase Mckay MD [facility] [place] [address] documented as of this encounter Visit Diagnoses Not on filedocumented in this encounter Care Teams Power Manager Relationship Specialty Start Date End Date Tavia Ramirez [place] [place] [address] PCP - General Family Medicine 06/11/22 documented as of this encounter
--- OUTSIDE RECORDS SUMMARY | 2023-12-08 03:34 | XMS_ITS | Encounter Summary ---
Author Organization [facility] Address [facility] [place] [address] Care Team Providers Care Foster Care Case Manager Name Role Phone James Tavia Foster APRN Primary Care Provider [phone] Reason for Visit * Reason Onset Date Comments Questions 05/12/2023 Encounter Details Date Type Department Care Team (Late st Contact Info) Description 05/12/2023 Telephone Hematology/Oncology at [address] [address] Marci Chen RN Questions Social [...] this medication. Her call back number is [phone] Thank you Bhumi documented in this encounter Plan of Treatment Upcoming Encounters Date Type Department Care Team (Late st Contact Info) Description 12/08/2023 3:30 PM EDT Office Visit Hematology/Oncology at [address] [address] Chase Mckay MD [facility] HEMATOLOGY [place] [address] documented as of this encounter Visit Diagnoses Not on filedocumented in this encounter Care Teams Foster Care Case Manager Relationship Specialty Start Date End Date Tavia Ramirez, [employer] [address] [place] [address] PCP - General Family Medicine 06/11/22 documented as of this encounter
--- OUTSIDE RECORDS SUMMARY | 2023-12-08 03:34 | XMS_ITS | Encounter Summary ---
Author Organization [facility] Address [facility] [place] [address] Care Team Providers Care Bone Process Operator Name Role Phone James Tavia Foster APRN Primary Care Provider [phone] Encounter Details Date Type Department Care Team [...] PM EDT Office Visit Hematology/Oncology at [address] [address] Chase Mckay MD [facility] DR [place] [address] documented as of this encounter Visit Diagnoses Not on filedocumented in this encounter Care Teams Bone Process Operator Relationship Specialty Start Date End Date Tavia Ramirez [place] [address] [place] [address] PCP - General Family Medicine 06/11/22 documented as of this encounter
--- OUTSIDE RECORDS SUMMARY | 2023-12-08 03:34 | XMS_ITS | Encounter Summary ---
Author Organization [facility] Address [facility] [place] [address] Care Team Providers Care Qualifications Examiner Name Role Phone Tavia Ramirez APRN Primary Care Provider [phone] Encounter Details Date Type Department Care Team (Late st Contact Info) Description 03/31/2023 Telephone Hematology/Oncology at [address] [phone] Bhumi Maradiaga Social History Tobacco [...] PM EDT Office Visit Hematology/Oncology at [address] [address] Chase Mckay MD [facility] DR HEMATOLOGY [place] [address] documented as of this encounter Visit Diagnoses Not on filedocumented in this encounter Care Teams Qualifications Examiner Relationship Specialty Start Date End Date Tavia Ramirez, [employer] [place] [address] [place] [address] PCP - General Family Medicine 06/11/22 documented as of this encounter
--- OUTSIDE RECORDS SUMMARY | 2023-12-08 03:34 | XMS_ITS | Encounter Summary ---
Author Organization [place] [address] Care Team Providers Care Recordist Chief Name Role Phone Tavia Ramirez APRN Primary Care Provider [phone] Reason for Visit * Reason Onset Date Comments New Medication Request 05/05/2023 Encounter Details Date Type Department Care Team (Late st Contact Info) Description 05/05/2023 Telephone Hematology/Oncology at [address] [address] Leoar Roper, RN New Medication Request Social History [...] PM EDT Office Visit Hematology/Oncology at [address] [phone] Chase Mckay MD [facility] HEMATOLOGY [place] [address] documented as of this encounter Visit Diagnoses Not on filedocumented in this encounter Care Teams Recordist Chief Relationship Specialty Start Date End Date Tavia Ramirez APRN [facility] [place] [address] [place] [address] PCP - General Family Medicine 06/11/22 documented as of this encounter
--- OUTSIDE RECORDS SUMMARY | 2023-12-08 03:34 | XMS_ITS | Encounter Summary ---
Author Organization [facility] [place] [address] Care Team Providers Care Crm Marketing Analyst Name Role Phone Tavia Ramirez APRN Primary Care Provider [phone] Reason for Visit * Reason Comments Chemotherapy Cycle 31, Day 1; Pem bro * Treatment/Therapy Plan Authorization (Routine) - Closed Specialty Diagnoses / Procedures Referred By Contac t Referred To Contact Hematology and Oncology Diagnoses Metastatic urothelial carcinoma Abnormal thyroid function test Procedures [id number] Jose Barnhart MD [address] [place] [address] [place] [address] Jose Lange MD [address] [place] [address] [place] [address] Referral ID Status Reason Start Date Expiration Date Visits Re quested Visits Authorized [id number] Closed 04/28/2022 06/24/2023 99 99 Encounter Details Date Type Department Care Team (Late st Contact Info) Description 02/18/2023 1:30 PM EDT Infusion Hematology Oncology at [address] [phone] Metastatic urothelial carcinoma Social History Tobacco Use [...] to treat. LAB DATA: Done today at [facility] and adequate for treatment. IV [...] Office Visit Hematology/Oncology at [address] [phone] Chase Mckay MD [facility] [place] [address] documented as of this encounter Visit Diagnoses [...] Units, Intravenous, ONCE PRN, Starting on e 02/18/23 at 1322, Until Fri02/18/23 at 1843, Line Care, Refer to Intravenous (IV) Procedure: Accessing Implanted Vascular Access Devices (888) procedure and/or Intravenous (IV) Job Aid: Adult Flushing & Catheter Care (0192) job aid for additional information regarding guidelines and administration., Routine Given 02/18/2023 2:30 PM EDT 500 Units pembrolizumab (Keytruda) 200 mg in sodium chloride 0.9% 108 mL infusion 200 mg, Intravenous, ONCE, 1 dose, On 02/18/23 at 1445, Administer over 30 Minutes, Flush line with NS after each dose., This agent is restricted to outpatient use. Is this drug being given as an outpatient? Yes New Bag 02/18/2023 1:57 PM EDT 200 mg 216 mL/hr sodium chloride 0.9 % (flush) (BD PosiFlush Normal Saline 0.9) flush 5-20 mL 5-20 mL, Intravenous, EVERY 1 MIN PRN, Starting on e 02/18/23 at 1322, Until Tu02/18/23 at 1843, Line Care, Flush pertains to all indwelling lines. Flush per protocol found in the job aid using the link provided on this medication record. Refer to Intravenous (IV) Job Aid: Adult Flushing & Catheter Care (7943) job aid for additional information regarding guidelines and administration., Routine Given 02/18/2023 2:30 PM EDT 20 mLs documented in this encounter Care Teams Crm Marketing Analyst Relationship Specialty Start Date End Date Tavia Ramirez, MEDICAID ELIGIBILITY SPECIALIST [facility] [place] [address] [place] [address] PCP - General Family Medicine 06/11/22 documented as of this encounter
--- OUTSIDE RECORDS SUMMARY | 2023-12-08 03:34 | XMS_ITS | Encounter Summary ---
[place] [address] Care Team Providers Care Bookbinder Chief Name Role Phone Tavia Ramirez APRN Primary Care Provider [phone] Reason for Referral * Diagnostic Test (Routine) - Closed Specialty Diagnoses / Procedures Referred By Contac t Referred To Contact Radiology Diagnoses Bilateral hydronephrosis Obstructive uropathy Procedures IR Nephrogram/Nephrostomy Tube Exchange Bilateral Alin Dillard MD [facility] DR INTERVENTIONAL [place] [address] [place] [address] Referral ID Status Reason Start Date Expiration Date V isits Requested Visits Authorized [id number] Closed Specialty Service Requested 02/13/2023 08/14/2024 1 1 * Diagnostic Test (Routine) - Closed Specialty Diagnoses / Procedures Referred By Contac t Referred To Contact Radiology Diagnoses Bilateral hydronephrosis Procedures IR Nephrogram/Nephrostomy Tube Exchange Bilateral Ana Gandhi PA [facility] [place] [address] [place] [address] Referral ID Status Reason Start Date Expiration Date V isits Requested Visits Authorized [id number] Closed Specialty Service Requested 02/13/2023 08/14/2024 1 1 Reason for Visit * Diagnostic Test (Routine) - Closed Specialty Diagnoses / Procedures Referred By Etta no Referred To Contact Radiology Diagnoses Bilateral hydronephrosis Procedures IR Nephrogram/Nephrostomy Tube Exchange Bilateral SacramentoAna PA [facility] [place] [address] [facility] [place] [address] Referral ID Status Reason Start Date Expiration Date V isits Requested Visits Authorized [id number] Closed Specialty Service Requested 02/13/2023 08/14/2024 1 1 Encounter Details Date Type Department Care Team (Latest Contact Info) Description 02/13/2023 1:05 PM EDT - 02/13/2023 11:59 PM EDT Hospital [place] [address] Alin Dillard MD [facility] [place] [address] Bilateral hydronephrosis; Obstructive uropathy Discharge [...] from the original note were not included. [facility] Vascular and Interventional Radiology Discharge Instructions [...] connecting tubing from the drain. Put a weight reducing technician on both the drain and the bag. [...] is during regular office hours, please call [phone]. If it is after regular office hours, or on weekends or holidays, please call [phone] and ask to speak to the Catering Coordinator nutritionists for Interventional Radiology. You may resume your [...] of : 1950 AGE: 72 y.o. Address: [address] [place] [phone] (home) Mobile: Telephone Information: Referring Provider: Ana [...] Bilateral 10/18/2022 Alexis De La Cruz MD [facility] INTERVENTIONL RAD IR NEPHROSTOMY TUBE EXCHANGE BILATERAL 12/11/2022 IR Nephrogram/Nephrostomy Tube Exchange Bilateral 12/11/2022 Alexis De La Cruz MD [facility] INTERVENTIONL RAD IR NEPHROSTOMY TUBE EXCHANGE BILATERAL 02/13/2023 IR Nephrogram/Nephrostomy Tube Exchange Bilateral 02/13/2023 Alin Dillard MD [facility] PRO [facility] EBUS GUIDED SAMPL 3/> NODE STATION/STRUX N/A [...] 8-14 days 02/28/2023 Ranjit Hale MD (Todd) Catering Coordinator PGY4 documented in this encounter Plan of Treatment Upcoming Encounters Date Type Department Care Team (Late st Contact Info) Description 12/08/2023 3:30 PM EDT Office Visit Hematology/Oncology at [address] [phone] Chase Mckay MD [facility] HEMATOLOGY [place] [address] documented as of this encounter Procedures Procedure [...] Blood Loss: None Fluoroscopy time: Please see [facility] IR technologist record for procedural dose/time Operators: [...] performed the entire procedure. Alin Dillard MD [facility] ORDERABLES * IR Nephrogram/Nephrostomy Tube Exchange Bilateral (02/13/2023 4:31 PM EDT) Anatomical Region Laterality Modality X-Ray Angiograph y Narrative 02/13/2023 4:51 PM EDT Preoperative Diagnosis: ? Chronic indwelling nephrostomy tubes for routine change. Postoperative Diagnosis: ?? Same Procedure Performed: Over the wire exchange of nephrostomy tubes Estimated Blood Loss: None Fluoroscopy time: Please see [facility] IR technologist record for procedural dose/time Operators: [...] and renal collecting system. ??A new 10 Icelandic tube was then advanced over the wire [...] Starting on Nicolasa 02/13/23 at 1420, Until Nicolsaa 02/13/23 at 1646, Pain, For use in Interventional Radiology (IR) only for procedure with direct provider supervision and verbal order., Angio/IR (Intra-Procedure), Routine Given 02/13/2023 3:35 PM EDT 6 mLs ondansetron ODT (Zofran-ODT) disintegrating tablet 4 mg 4 mg, Oral, EVERY 8 HOURS PRN, Starting on Nicolasa 02/13/23 at 1457, Until 02/14/23 at 0435, Nausea, Routine Given 02/13/2023 3:00 PM EDT 4 mg documented in this encounter Care Teams Bookbinder Chief Relationship Specialty Start Date End Date Tavia Ramirez APRN [address] [place] [address] PCP - General Family Medicine 06/11/22 documented as of this encounter
--- OUTSIDE RECORDS SUMMARY | 2023-12-08 03:34 | XMS_ITS | Encounter Summary ---
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 Procedures NM PET CT Skull Base to Mid-thigh Jose Lange MD [facility] DR HEM[place]Y [place] [address] [place] [address] Referral ID Status Reason Start Date Expiration Date V isits Requested Visits Authorized [id number] Closed Specialty Service Requested 01/28/2023 07/29/2024 1 2 Reason for Visit * Diagnostic Test (Routine) - Closed Specialty Diagnoses / Procedures Referred By Contac t Referred To Contact Radiology Diagnoses Metastatic urothelial carcinoma 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 Procedures NM PET CT Skull Base to Mid-thigh Jose Lange MD [facility] DR HEMATOLOG[place] [address] [place] [address] Referral ID Status Reason Start Date Expiration Date V isits Requested Visits Authorized [id number] Closed Specialty Service Requested 01/28/2023 07/29/2024 1 2 Encounter Details Date Type Department Care Team (Latest Contact Info) Description 03/07/2023 1:40 PM EST - 03/07/2023 11:59 PM EST Hospital Encounter Nuclear Medicine at [facility] [place] [address] Jose Lange MD [facility] DR HEMATOLOGY [place] [address] Metastatic urothelial carcinoma; Primary malignant neoplasm of [...] PM EDT Office Visit Hematology/Oncology at [address] [address] Chase Mckay MD [facility] DR HEMATOLOGY [place] [address] documented as of this encounter Procedures Procedure [...] who have questions please contact the health acute care nurse practitioner that requested your imaging first. ? Electronically signed by: Billy Anderson MD, [facility] ([phone]), at 03/10/2023 2:59 PM Narrative 03/10/2023 2:59 PM EST EXAMINATION: NM PET CT STANDARD SKULL BASE TO MID-THIGH CLINICAL HISTORY: Urologic cancer, assess treatment response - Include more detail below Restaging of metastatic urothelial carcinoma and primary lung cancer TECHNIQUE: Following IV injection of 45-bcchft-4-deoxyglucose (FDG) a standard uptake of approximately 60 [...] lung cancer TECHNIQUE: Following IV injection of 13-fqivzz-9-deoxyglucose (FDG) astandard uptake of approximately 60 minutes, [...] patients who have questions please contactthe health acute care nurse practitioner that requested your imaging first. Electronically signed by: iBlly Anderson MD, [facility]([phone]), at 03/10/2023 2:59 PM Jose Lange MD [...] mCi documented in this encounter Care Teams Mortgage Banker Relationship Specialty Start Date End Date Tavia Ramirez, [place] [address] PCP - General Family Medicine 06/11/22 documented as of this encounter
--- OUTSIDE RECORDS SUMMARY | 2023-12-08 03:34 | XMS_ITS | Encounter Summary ---
Author Organization [facility] [place] [address] Care Team Providers Care Nursing Informatics Analyst Name Role Phone Tavia Ramirez APRN Primary Care Provider [phone] Reason for Visit * Reason Comments IV Access Port flush * Treatment/Therapy Plan Authorization (Routine) - Closed Specialty Diagnoses / Procedures Referred By Contac t Referred To Contact Hematology and Oncology Diagnoses Metastatic urothelial carcinoma Abnormal thyroid function test Procedures [id number] Jose Barnhart MD [address] [place] [address] DR [place] [address] Jose Lange MD [address] [place] [address] DR [place] [address] Referral ID Status Reason Start Date Expiration Date Visits Re quested Visits Authorized [id number] Closed 04/28/2022 06/24/2023 99 99 Encounter Details Date Type Department Care Team (Late st Contact Info) Description 05/13/2023 3:00 PM EST Infusion Hematology Oncology at [address] [phone] Metastatic urothelial carcinoma [C79.10]; Metastatic urothelial carcinoma; [...] PM EDT Office Visit Hematology/Oncology at [address] [address] Chase Mckay MD [facility] DR HEMATOLOGY AND [place] [address] documented as of this encounter Visit Diagnoses [...] pleura documented in this encounter Administered Medications Active Administered Medications - up to 3 most recent administrations Medication Order MAR Action Action Date Dose Rate Site sodium chloride 0.9 % (flush) (BD PosiFlush Normal Saline 0.9) flush 10-20 mL 10-20 mL, Intravenous, EVERY 1 MIN PRN, Starting on 05/13/23 at 1530, Until Discontinued, Central Lab Technician, Routine Given 05/13/2023 3:30 PM EST 20 mLs documented in this encounter Care Teams Nursing Informatics Analyst Relationship Specialty Start Date End Date Tavia Ramirez, HOME HEALTH NURSE LICENSED [place] [address] [place] [address] PCP - General Family Medicine 06/11/22 documented as of this encounter
--- OUTSIDE RECORDS SUMMARY | 2023-12-08 03:34 | XMS_ITS | Encounter Summary ---
Author Organization [facility] [place] [address] Care Team Providers Care Ammunition Storekeeper Name Role Phone Tavia Ramirez ALESSANDRO Primary Care Provider [phone] Encounter Details Date Type Department Care Team (Late st Contact Info) Description 05/06/2023 Orders Only Hematology [place] [phone] Chase Mckay MD [facility] DR HEMATOLOGY AND ONCOLOGY [place] [phone] Social History Tobacco Use Types Packs/Day Years [...] PM EDT Office Visit Hematology/Oncology at [address] [address] Chase Mckay MD [facility] DR HEMATOLOGY [place] [address] documented as of this encounter Visit Diagnoses Not on filedocumented in this encounter Care Teams Ammunition Storekeeper Relationship Specialty Start Date End Date Tavia Ramirez APRN [address] [place] [address] PCP - General Family Medicine 06/11/22 documented as of this encounter
--- OUTSIDE RECORDS SUMMARY | 2023-12-08 03:34 | XMS_ITS | Encounter Summary ---
Author Organization [facility] Address [facility] [place] [address] Care Team Providers Care Commanding Officer Garage Name Role Phone Tavia Ramirez ALESSANDRO Primary Care Provider [phone] Encounter Details Date Type Department Care Team (Late st Contact Info) Description 05/05/2023 10:30 AM EST Office Visit Hematology/Oncology at [address] [address] Chase Mckay MD [facility] DR HEMATOLOGY [place] [address] Primary malignant neoplasm of left lower lobe [...] original note were not included. [place] [address] [phone] Barb Bullard is being seen for the [...] Chase Mckay MD, [place] 05/03/2023 Thoracic Oncology [facility] CC: Jose Patel MD HPI/Interval History/Subjective: Last seen 04/01/2023 Accompanied by her daughter Daisha. Had [place] [facility] last [...] Network: Home situation: Lives in [facility]. Lives with her daughter. 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 Tobacco use: 30 pk year hx quit 2014 Alcohol use: Does not drink Drug use: None Financial Distress: Medicare A/B has financial assistance through the hospitals so not worried about food [facility] or ability to pay for her cancer [...] of left lower lobe mass lung debulking ([id number]), the immunostain findings in the present case [...] of left lower lobe mass lung debulking ([id number]), the immunostain findings in the present case [...] PM EDT Office Visit Hematology/Oncology at [address] [address] Chase Mckay MD [facility] DR HEMATOLOG[place] [address] Scheduled Orders Name Type Priority Associated Diagnoses [...] pleura documented in this encounter Care Teams Commanding Officer Garage Relationship Specialty Start Date End Date Tavia Ramirez [place] [address] [place] [address] PCP - General Family Medicine 06/11/22 documented as of this encounter
--- OUTSIDE RECORDS SUMMARY | 2023-12-08 03:34 | XMS_ITS | Encounter Summary ---
Author Organization [facility] Address [facility] [place] [address] Care Team Providers Care Manager Sales And Marketing Name Role Phone James Tavia Foster APRN Primary Care Provider [phone] Encounter Details Date Type Department Care Team [...] PM EDT Office Visit Hematology/Oncology at [address] [address] Chase Mckay MD [facility] DR HEMATOLOGY [place] [address] documented as of this encounter Visit Diagnoses Not on filedocumented in this encounter Care Teams Manager Sales And Marketing Relationship Specialty Start Date End Date Tavia Ramirez [place] [place] [address] PCP - General Family Medicine 06/11/22 documented as of this encounter
--- OUTSIDE RECORDS SUMMARY | 2023-12-08 03:34 | XMS_ITS | Encounter Summary ---
Author Organization [facility] Address [facility] [place] [address] Care Team Providers Care Clinical Instructor Name Role Phone James Tavia oFster APRN Primary Care Provider [phone] Encounter Details Date Type Department Care Team [...] PM EDT Office Visit Hematology/Oncology at [address] [address] Chase Mckay MD [facility] DR [place]EMATOLOGY [place] [address] documented as of this encounter Visit Diagnoses Not on filedocumented in this encounter Care Teams Clinical Instructor Relationship Specialty Start Date End Date Tavia Ramirez [place] [address] [place] [address] PCP - General Family Medicine 06/11/22 documented as of this encounter
--- OUTSIDE RECORDS SUMMARY | 2023-12-08 03:34 | XMS_ITS | Encounter Summary ---
Author Organization [facility] Address [facility] [place] [address] Care Team Providers Care Biopsychologist Name Role Phone James Tavia Foster APRN Primary Care Provider [phone] Encounter Details Date Type Department Care Team [...] PM EDT Office Visit Hematology/Oncology at [address] [address] Chase Mckay MD [facility] [address] [place] [address] documented as of this encounter Visit Diagnoses Not on filedocumented in this encounter Care Teams Biopsychologist Relationship Specialty Start Date End Date Tavia Ramirez [place] [place] [address] PCP - General Family Medicine 06/11/22 documented as of this encounter
--- OUTSIDE RECORDS SUMMARY | 2023-12-08 03:34 | XMS_ITS | Encounter Summary ---
Author Organization [facility] Address [facility] [address] Care Team Providers Care Accreditation Specialist Name Role Phone James Tavia Foster APRN Primary Care Provider [phone] Encounter Details Date Type Department Care Team [...] PM EDT Office Visit Hematology/Oncology at [address] [address] Chase Mckay MD [facility] DR [place] [address] documented as of this encounter Visit Diagnoses Not on filedocumented in this encounter Care Teams Accreditation Specialist Relationship Specialty Start Date End Date Tavia Ramirez [place] [place] [address] PCP - General Family Medicine 06/11/22 documented as of this encounter
--- OUTSIDE RECORDS SUMMARY | 2023-12-08 03:34 | XMS_ITS | Encounter Summary ---
Author Organization [facility] [place] [address] Care Team Providers Care Leakage Tester Name Role Phone Tavia Ramirez ALESSANDRO Primary Care Provider Encounter Details Date Type Department Care Team (Late st Contact Info) Description 03/11/2023 Orders Only [place]ology [place] [phone] Jose Lange MD [facility] DR [place] [address] Social History Tobacco Use Types Packs/Day Years [...] PM EDT Office Visit Hematology/Oncology at [address] [address] Chase Mckay MD [facility] DR [place] [address] documented as of this encounter Visit Diagnoses Not on filedocumented in this encounter Care Teams Leakage Tester Relationship Specialty Start Date End Date Tavia Ramirez [place] [address] [place] [address] PCP - General Family Medicine 06/11/22 documented as of this encounter
--- OUTSIDE RECORDS SUMMARY | 2023-12-08 03:34 | XMS_ITS | Encounter Summary ---
Author Organization [facility] Address [facility] [place] [address] Care Team Providers Care Clerical Support Specialist Name Role Phone James Tavia Foster APRN Primary Care Provider [phone] Encounter Details Date Type Department Care Team [...] PM EDT Office Visit Hematology/Oncology at [address] [address] Chase Mckay MD [facility] DR [place] [address] documented as of this encounter Visit Diagnoses Not on filedocumented in this encounter Care Teams Clerical Support Specialist Relationship Specialty Start Date End Date Tavia Ramirez [place] [place] [address] PCP - General Family Medicine 06/11/22 documented as of this encounter
--- OUTSIDE RECORDS SUMMARY | 2023-12-08 03:34 | XMS_ITS | Encounter Summary ---
Author Organization [facility] [place] [address] Care Team Providers Care Business Continuity Coordinator Name Role Phone Tavia Ramirez APRN Primary Care Provider [phone] Reason for Visit * Reason Comments Chemotherapy * Treatment/Therapy Plan Authorization (Routine) - Closed Specialty Diagnoses / Procedures Referred By Contac t Referred To Contact Hematology and Oncology Diagnoses Metastatic urothelial carcinoma Abnormal thyroid function test Procedures [id number] Jose Barnhart MD [address] [place] [address] [place] [address] Jose Lange MD [address] [place] [address] [place] [address] Referral ID Status Reason Start Date Expiration Date Visits Re quested Visits Authorized [id number] Closed 04/28/2022 06/24/2023 99 99 Encounter Details Date Type Department Care Team (Late st Contact Info) Description 03/11/2023 2:30 PM EST Infusion Hematology Oncology at [address] [phone] Metastatic urothelial carcinoma Social History Tobacco Use [...] to treat. LAB DATA: Done today at [facility] and adequate for treatment. IV ACCESS: [...] PM EDT Office Visit Hematology/Oncology at [address] [address] Chase Mckay MD [facility] DR HEMATOLOGY [place] [address] documented as of this encounter Visit Diagnoses [...] 500 Units, Intravenous, ONCE PRN, Starting on Fri03/11/23 at 1509, Until Fri03/11/23 at 1815, Line Care, Refer to Intravenous (IV) Procedure: Accessing Implanted Vascular Access Devices (284) procedure and/or Intravenous (IV) Job Aid: Adult Flushing & Catheter Care (6605) job aid for additional information regarding guidelines and administration., Routine Given 03/11/2023 4:02 PM EST 500 Units pembrolizumab (Keytruda) 200 mg in sodium chloride 0.9% 108 mL infusion 200 mg, Intravenous, ONCE, 1 dose, On Fri03/11/23 at 1630, Administer over 30 Minutes, Flush line with NS after each dose., This agent is restricted to outpatient use. Is this drug being given as an outpatient? Yes New Bag 03/11/2023 3:30 PM EST 200 mg 216 mL/hr documented in this encounter Care Teams Business Continuity Coordinator Relationship Specialty Start Date End Date Tavia Ramirez APRN [address] [place] [address] PCP - General Family Medicine 06/11/22 documented as of this encounter
--- OUTSIDE RECORDS SUMMARY | 2023-12-08 03:34 | XMS_ITS | Encounter Summary ---
Author Organization [facility] [place] [address] Care Team Providers Care Supervisor Modern Languages Name Role Phone James Tavia Foster APRN Primary Care Provider [phone] Encounter Details Date Type Department Care Team (Late st Contact Info) Description 03/11/2023 2:00 PM EST Office Visit Hematology/Oncology at [address] [address] Katherine Sepulveda APRN [facility] [place] [address] Metastatic urothelial carcinoma; Hypothyroidism due to drugs; [...] were not included. Hematology & Medical Oncology [address] [address] Barb returns today to continue [...] distinct lung primary. She was seen by vacuum kettle cook , who recommended rigid bronchoscopy with attempts [...] The assay was performed according to the production material coordinator's instructions using Anti-PD-L1 (22C3, pharmDX) antibody. Electronically signed by: Herbert Ford MD Verified: 04/11/2021 8:14 Pathologist Performed at: -[facility] Dept. of Pathology, [place], [place] Surgical Pathology DIAGNOSIS A - Lung, left lower lobe mass, debulking: - Adenocarcinoma, consistent with lung primary. Electronically signed by: Sana Dowell MD Verified: 04/06/2021 11:16 Pathologist Performed at: -[facility] Dept. of Pathology, [place], [place] DISCUSSION Sections show an invasive, predominantly [...] of presumably metastatic urothelial carcinoma which include [place] based chemotherapy versus immunotherapy. Due to her [...] up with nephrology. Continues with tube exchange [id number]. # Anemia- mild- asymptomatic. Continue to monitor [...] PM EDT Office Visit Hematology/Oncology at [address] [address] Chase Mckay MD [facility] DR HEMATOLOGY [place] [address] documented as of this encounter Visit Diagnoses [...] pleura documented in this encounter Care Teams Supervisor Modern Languages Relationship Specialty Start Date End Date Tavia Ramirez [place] [address] [place] [address] PCP - General Family Medicine 06/11/22 documented as of this encounter
--- OUTSIDE RECORDS SUMMARY | 2023-12-08 03:34 | XMS_ITS | Encounter Summary ---
Author Organization [facility] [place] [address] Care Team Providers Care Costuming Supervisor Name Role Phone Tavia Ramirez ALESSANDRO Primary Care Provider [phone] Encounter Details Date Type Department Care Team (Late st Contact Info) Description 04/23/2023 [place] [phone] Jean Carlos Fenton, [facility] [place] [address] Social History Tobacco Use Types Packs/Day Years [...] IR Mediport Placement 04/02/2021 Yuval Sinclair PA [facility] RAD IR NEPHROSTOMY TUBE EXCHANGE BILATERAL 04/24/2022 IR Nephrogram/Nephrostomy Tube Exchange Bilateral 04/24/2022 Alin Dillard MD [facility] RAD IR NEPHROSTOMY TUBE EXCHANGE BILATERAL 07/26/2022 IR Nephrogram/Nephrostomy Tube Exchange Bilateral 07/26/2022 Robe Hope PA [facility] RAD IR NEPHROSTOMY TUBE EXCHANGE BILATERAL 10/18/2022 IR Nephrogram/Nephrostomy Tube Exchange Bilateral 10/18/2022 Alexis De La Cruz MD [facility] RAD IR NEPHROSTOMY TUBE EXCHANGE BILATERAL 12/11/2022 IR Nephrogram/Nephrostomy Tube Exchange Bilateral 12/11/2022 Alexis De La Cruz MD [facility] RAD IR NEPHROSTOMY TUBE EXCHANGE BILATERAL 02/13/2023 IR Nephrogram/Nephrostomy Tube Exchange Bilateral 02/13/2023 Alin Dillard MD [facility] RAD IR NEPHROSTOMY TUBE EXCHANGE BILATERAL 04/04/2023 IR Nephrogram/Nephrostomy Tube Exchange Bilateral Alin Dillard MD [facility] RAD IR NEPHROSTOMY TUBE PLACEMENT PERCUTANEOUS BILATERAL 02/20/2021 IR Nephrostomy Tube Placement Percutaneous Bilateral [facility] IR NEPHROURETERAL (NU) STENT PLACEMENT/CHECK/CHANGE 07/13/2021 IR Nephroureteral (NU) Stent Placement Check/Change 07/13/2021 Alexis De La Cruz MD [facility] INTER[facility] IR NEPHROURETERAL (NU) STENT PLACEMENT/CHECK/CHANGE 10/23/2021 IR Nephroureteral (NU) Stent Placement Check/Change 10/23/2021 Zeferino Rosado MD [facility] RAD IR NEPHROURETERAL (NU) STENT PLACEMENT/CHECK/CHANGE 01/18/2022 IR Nephroureteral (NU) Stent Placement Check/Change 01/18/2022 Guillermo Nice MD [facility] PRO [facility] EBUS GUIDED SAMPL 3/> NODE STATION/STRUX N/A 04/04/2021 BRONCH, W ENDOBRONCHIAL ULTRASOUND (EBUS) GUIDED SAMPLING, 3+ NODES (WRVU 5.21) performed by Backer, Alonzo D, MD at [facility] MAIN OR PRO BRONCHOSCOPY, DIAGNOSTIC W LAVAGE N/A 04/04/2021 BRONCHOSCOPY, RIGID OR FLEXIBLE, WITH BRONCHIAL ALVEOLAR LAVAGE (WRVU 2.88) performed by Alonzo Cevallos MD at [facility] MAIN OR Medications: Current Outpatient [...] PM EDT Office Visit Hematology/Oncology at [address] [address] [facility] DR [place] [address] documented as of this encounter Visit Diagnoses Not on filedocumented in this encounter Care Teams Costuming Supervisor Relationship Specialty Start Date End Date Tavia Ramirez [place] [address] [place] [address] PCP - General Family Medicine 06/11/22 documented as of this encounter
--- OUTSIDE RECORDS SUMMARY | 2023-12-08 03:34 | XMS_ITS | Encounter Summary ---
Author Organization [facility] Address [facility] [place] [address] Care Team Providers Care Lithographic Etcher Name Role Phone James Tavia Foster APRN Primary Care Provider [phone] Encounter Details Date Type Department Care Team (Late st Contact Info) Description 02/18/2023 1:00 PM EDT Office Visit Hematology/Oncology at [address] [phone] Jose Lange MD [facility] [address] [place] [address] Tea Dimas APRN [facility] [place] [address] Metastatic urothelial carcinoma; Hypothyroidism due to drugs [...] not included. Hematology & Medical Oncology [address] [phone] Barb returns today to continue treatment for [...] a distinct lung primary. She wasseen by order entry administrator , who recommended rigid bronchoscopy with attempts [...] assay was performed according to the production mechanic's instructions using Anti-PD-L1 (22C3, pharmDX) antibody. Electronically signed by: Herbert Ford MD Verified: 04/11/2021 8:14 Pathologist Performed at: -[facility] [place] Dept. of Pathology, [place], [place] Surgical Pathology DIAGNOSIS A - Lung, left lower lobe mass, debulking: - Adenocarcinoma, consistent with lung primary. Electronically signed by: Sana Dowell MD Verified: 04/06/2021 11:16 Pathologist Performed at: -[facility] [place] Dept. of Pathology, [place], [place] DISCUSSION Sections show an invasive, predominantly [...] of presumably metastatic urothelial carcinoma which include red cliff based chemotherapy versus immunotherapy. Due to her [...] up with nephrology. Continues with tube exchange [id number]. # Anemia- mild- asymptomatic. 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
--- OUTSIDE RECORDS SUMMARY | 2023-12-08 03:35 | XMS_ITS | Encounter Summary ---
Author Organization [facility] Address [facility] [place] [address] Care Team Providers Care Decorating Consultant Name Role Phone James Tavia Foster APRN Primary Care Provider [phone] Encounter Details Date Type Department Care Team [...] PM EDT Office Visit Hematology/Oncology at [address] [address] Chase Mckay MD [facility] DR HEMATOLOGY [place] [address] documented as of this encounter Visit Diagnoses Not on filedocumented in this encounter Care Teams Decorating Consultant Relationship Specialty Start Date End Date Tavia Ramirez [place] [place] [address] PCP - General Family Medicine 06/11/22 documented as of this encounter
--- OUTSIDE RECORDS SUMMARY | 2023-12-08 03:35 | XMS_ITS | Encounter Summary ---
Author Organization [facility] Address [facility] [place] [address] Care Team Providers Care Clerical Office Name Role Phone James Tavia Foster APRN Primary Care Provider [phone] Encounter Details Date Type Department Care Team [...] PM EDT Office Visit Hematology/Oncology at [address] [address] Chase Mckay MD [facility] DR HEMATOLOGY [place] [address] documented as of this encounter Visit Diagnoses Not on filedocumented in this encounter Care Teams Clerical Office Relationship Specialty Start Date End Date Tavia Ramirez APRN [place] [address] PCP - General Family Medicine 06/11/22 documented as of this encounter
--- OUTSIDE RECORDS SUMMARY | 2023-12-08 03:35 | XMS_ITS | Encounter Summary ---
[place] [address] Care Team Providers Care Service Station Cashier Name Role Phone Tavia Ramirez APRN Primary Care Provider [phone] Reason for Referral * Diagnostic Test (Routine) - Closed Specialty Diagnoses / Procedures Referred By Contac t Referred To Contact Radiology Diagnoses Obstructive uropathy Procedures IR Nephrogram/Nephrostomy Tube Exchange Bilateral Alexis De La Cruz MD [facility] [place] [address] [facility] [place] [address] Referral ID Status Reason Start Date Expiration Date V isits Requested Visits Authorized [id number] Closed Specialty Service Requested 10/18/2022 04/19/2024 1 1 Reason for Visit * Diagnostic Test (Routine) - Closed Specialty Diagnoses / Procedures Referred By Contac t Referred To Contact Radiology Diagnoses Obstructive uropathy Procedures IR Nephrogram/Nephrostomy Tube Exchange Bilateral Alexis De La Cruz MD [facility] [place] [address] [facility] [place] [address] Referral ID Status Reason Start Date Expiration Date V isits Requested Visits Authorized [id number] Closed Specialty Service Requested 10/18/2022 04/19/2024 1 1 Encounter Details Date Type Department Care Team (Latest Contact Info) Description 12/11/2022 12:23 PM EDT - 12/11/2022 11:59 PM EDT Hospital Encounter Radiology at [facility] [place] [address] Alexis De La Cruz MD [facility] [place] [address] Obstructive uropathy Discharge Disposition: Home Social History [...] from the original note were not included. [facility] Vascular and Interventional Radiology Discharge Instructions for [...] connecting tubing from the drain. Put a armored car driver on both the drain and the bag. [...] is during regular office hours, please call [phone]. If it is after regular office hours, or on weekends or holidays, please call [phone] and ask to speak to the Dr[employer] international account representative for Interventional Radiology. You may resume your [...] 72 y.o. Address: [address] [facility] [address] (home) Mobile: Telephone Information: Referring Provider: Alexis De La Cruz REASON FOR VISIT: Order Questions Answers Where will study be performed? [facility] Radiology [120] Reason for exam and clinical [...] PM EDT Office Visit Hematology/Oncology at [address] [address] Chase Mckay MD [facility] [place] [address] documented as of this encounter Procedures Procedure [...] mLs documented in this encounter Care Teams Service Station Cashier Relationship Specialty Start Date End Date Tavia Ramirez APRN [address] [facility] [address] PCP - General Family Medicine 06/11/22 documented as of this encounter
--- OUTSIDE RECORDS SUMMARY | 2023-12-08 03:35 | XMS_ITS | Encounter Summary ---
Author Organization [facility] Address [facility] [place] [address] Care Team Providers Care Grapple Yarder Operator Name Role Phone James Tavia Foster APRN Primary Care Provider [phone] Reason for Visit * Reason Onset Date Comments Medication Refill 02/12/2023 Levothyroxine Encounter Details Date Type Department Care Team (Late st Contact Info) Description 02/12/2023 Telephone Hematology/Oncology at [address] [phone] Jose Lange MD [facility] DR [place] [address] Medication Refill (Levothyroxine ) Social History Tobacco [...] PM EDT Office Visit Hematology/Oncology at [address] [address] Chase Mckay MD [facility] [address] [place] [address] documented as of this encounter Visit Diagnoses Diagnosis Metastatic urothelial carcinoma Secondary malignant neoplasm of other urinary organs 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 Malignant neoplasm of lower lobe, bronchus, or lung Metastatic urothelial carcinoma 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
--- OUTSIDE RECORDS SUMMARY | 2023-12-08 03:35 | XMS_ITS | Encounter Summary ---
Author Organization [facility] Address [facility] [place] [address] Care Team Providers Care Ad Clerk Name Role Phone James Tavia Foster APRN Primary Care Provider [phone] Encounter Details Date Type Department Care Team [...] PM EDT Office Visit Hematology/Oncology at [address] [address] Chase Mckay MD [facility] DR [place] [address] documented as of this encounter Visit Diagnoses Not on filedocumented in this encounter Care Teams Ad Clerk Relationship Specialty Start Date End Date Tavia Ramirez [place] [place] [address] PCP - General Family Medicine 06/11/22 documented as of this encounter
--- OUTSIDE RECORDS SUMMARY | 2023-12-08 03:35 | XMS_ITS | Encounter Summary ---
Author Organization [facility] Address [facility] [place] [address] Care Team Providers Care Commercial Relationship Manager Name Role Phone James Tavia Foster APRN Primary Care Provider [phone] Encounter Details Date Type Department Care Team [...] PM EDT Office Visit Hematology/Oncology at [address] [address] Chase Mckay MD [facility] DR [place] [address] documented as of this encounter Visit Diagnoses Not on filedocumented in this encounter Care Teams Commercial Relationship Manager Relationship Specialty Start Date End Date Tavia Ramirez [place] [address] PCP - General Family Medicine 06/11/22 documented as of this encounter
--- OUTSIDE RECORDS SUMMARY | 2023-12-08 03:35 | XMS_ITS | Encounter Summary ---
[place] [address] Care Team Providers Care Housing Assistant Property Manager Name Role Phone Tavia Ramirez APRN Primary Care Provider [phone] Reason for Referral * Diagnostic Test (Routine) - Closed Specialty Diagnoses / Procedures Referred By Contac t Referred To Contact Radiology Diagnoses Obstructive uropathy Procedures IR Nephrogram/Nephrostomy Tube Exchange Bilateral Alexis De La Cruz MD [facility] [address] [place] [address] [facility] [place] [address] Referral ID Status Reason Start Date Expiration Date V isits Requested Visits Authorized [id number] Closed Specialty Service Requested 10/18/2022 04/19/2024 1 1 * Diagnostic Test (Routine) - Closed Specialty Diagnoses / Procedures Referred By Contac t Referred To Contact Radiology Diagnoses Obstructive uropathy Metastatic urothelial carcinoma Procedures IR Nephrogram/Nephrostomy Tube Exchange Bilateral Robe Hope PA [facility] [place] [address] [facility] [place] [address] Referral ID Status Reason Start Date Expiration Date V isits Requested Visits Authorized [id number] Closed Specialty Service Requested 07/26/2022 01/26/2024 1 1 Reason for Visit * Diagnostic Test (Routine) - Closed Specialty Diagnoses / Procedures Referred By Contjoslyn t Referred To Contact Radiology Diagnoses Obstructive uropathy Metastatic urothelial carcinoma Procedures IR Nephrogram/Nephrostomy Tube Exchange Bilateral Robe Hope PA [facility] [address] [place] [address] [facility] [place] [address] Referral ID Status Reason Start Date Expiration Date V isits Requested Visits Authorized [id number] Closed Specialty Service Requested 07/26/2022 01/26/2024 1 1 Encounter Details Date Type Department Care Team (Latest Contact Info) Description 10/18/2022 12:18 PM EDT - 10/18/2022 11:59 PM EDT Hospital [place] [address] Alin Dillard MD [facility] [address] INTER[place] [address] Obstructive uropathy; Metastatic urothelial carcinoma [...] 1950 AGE: 72 y.o. Address: [address] [address] (home) Mobile: Telephone Information: Referring Provider: Robe Hope REASON FOR VISIT: Order Questions Answers Where will study be performed? [facility] Radiology [120] Reason for exam and [...] exchange local only, 500mg Cipro PO 10/18/22 Delnote nephrostomy tube exchange Lido jelly, cipro 500mg [...] 02/20/2021, but were converted to bilateral 10 omani nephrostomy catheter on 01/18/22. Last seen by [...] IR Mediport Placement 04/02/2021 Yuval Sinclair PA [facility] INTERVENTIONL RAD IR NEPHROSTOMY TUBE EXCHANGE BILATERAL 04/24/2022 IR Nephrogram/Nephrostomy Tube Exchange Bilateral 04/24/2022 Alin Dillard MD [facility] INTERVENTIONL RAD IR NEPHROSTOMY TUBE EXCHANGE BILATERAL 07/26/2022 IR Nephrogram/Nephrostomy Tube Exchange Bilateral 07/26/2022 Robe Hope PA [facility] INTERVENTIONL RAD IR NEPHROSTOMY TUBE PLACEMENT PERCUTANEOUS BILATERAL 02/20/2021 IR Nephrostomy Tube Placement Percutaneous Bilateral [facility] INTERVENTIONL RAD IR NEPHROURETERAL (NU) STENT PLACEMENT/CHECK/CHANGE 07/13/2021 IR Nephroureteral (NU) Stent Placement Check/Change 07/13/2021 Alexis De La Cruz MD [facility] INTERVENTIONLRAD IR NEPHROURETERAL (NU) STENT PLACEMENT/CHECK/CHANGE 10/23/2021 IR Nephroureteral (NU) Stent Placement Check/Change 10/23/2021 Zeferino Rosado MD [facility] INTERVENTIONL RAD IR NEPHROURETERAL (NU) STENT PLACEMENT/CHECK/CHANGE 01/18/2022 IR Nephroureteral (NU) Stent Placement Check/Change 01/18/2022 Guillermo Nice MD [facility] INTERVENTIONLRAD PRO [facility] EBUS GUIDED SAMPL 3/> NODE STATION/STRUX N/A 04/04/2021 BRONCH, W ENDOBRONCHIAL ULTRASOUND (EBUS) GUIDED SAMPLING, 3+ NODES (WRVU 5.21) performed by Alonzo Cevallos MD at [facility] MAIN OR PRO BRONCHOSCOPY, DIAGNOSTIC W LAVAGE N/A 04/04/2021 BRONCHOSCOPY, RIGID OR FLEXIBLE, WITH BRONCHIAL ALVEOLAR LAVAGE (WRVU 2.88) performed by Alonzo Cevallos MD at [facility] MAIN OR Medications: Current Outpatient Medications [...] 02/20/2021, but were converted to bilateral 10 omani nephrostomy catheter on 01/18/22. Last seen by [...] IR Mediport Placement 04/02/2021 Yuval Sinclair PA [facility] INTERVENTIONL RAD IR NEPHROSTOMY TUBE EXCHANGE BILATERAL 04/24/2022 IR Nephrogram/Nephrostomy Tube Exchange Bilateral 04/24/2022 Alin Dillard MD [facility] INTERVENTIONL RAD IR NEPHROSTOMY TUBE EXCHANGE BILATERAL 07/26/2022 IR Nephrogram/Nephrostomy Tube Exchange Bilateral 07/26/2022 Robe Hope PA [facility] INTERVENTIONL RAD IR NEPHROSTOMY TUBE PLACEMENT PERCUTANEOUS BILATERAL 02/20/2021 IR Nephrostomy Tube Placement Percutaneous Bilateral [facility] INTERVENTIONL RAD IR NEPHROURETERAL (NU) STENT PLACEMENT/CHECK/CHANGE 07/13/2021 IR Nephroureteral (NU) Stent Placement Check/Change 07/13/2021 Alexis De La Cruz MD [facility] INTERVENTIONLRAD IR NEPHROURETERAL (NU) STENT PLACEMENT/CHECK/CHANGE 10/23/2021 IR Nephroureteral (NU) Stent Placement Check/Change 10/23/2021 Zeferino Rosado MD [facility] INTERVENTIONL RAD IR NEPHROURETERAL (NU) STENT PLACEMENT/CHECK/CHANGE 01/18/2022 IR Nephroureteral (NU) Stent Placement Check/Change 01/18/2022 Guillermo Nice MD [facility] INTERVENTIONLRAD PRO [facility] EBUS GUIDED SAMPL 3/> NODE STATION/STRUX N/A 04/04/2021 BRONCH, W ENDOBRONCHIAL ULTRASOUND (EBUS) GUIDED SAMPLING, 3+ NODES (WRVU 5.21) performed by Alonzo Cevallos MD at [facility] MAIN OR PRO BRONCHOSCOPY, DIAGNOSTIC W LAVAGE N/A 04/04/2021 BRONCHOSCOPY, RIGID OR FLEXIBLE, WITH BRONCHIAL ALVEOLAR LAVAGE (WRVU 2.88) performed by Alonzo Cevallos MD at [facility] MAIN OR Medications: Current Outpatient Medications [...] PM EDT Office Visit Hematology/Oncology at [address] [address] Chase Mckay MD [facility] [address] HEMATOLOGY [place] [address] documented as of this encounter Procedures Procedure [...] urinary organs Obstructive uropathy Urinary obstruction, unspecified Primary malignant [...] 50 mL, Other, ONCE PRN, Starting on Fri10/18/22 at 1416, Until 10/19/22 at 0434, Per Protocol, Warning Vesicant/Irritant Medication , Routine Given 10/18/2022 2:16 PM EDT 20 mLs documented in this encounter Care Teams Housing Assistant Property Manager Relationship Specialty Start Date End Date Tavia Ramirez, WEIGHER [employer] [place] [address] PCP - General Family Medicine 06/11/22 documented as of this encounter
--- OUTSIDE RECORDS SUMMARY | 2023-12-08 03:35 | XMS_ITS | Encounter Summary ---
[place] [address] Care Team Providers Care Shoe Reconditioner Name Role Phone Tavia Ramirez APRN Primary Care Provider [phone] Reason for Referral * Diagnostic Test (Routine) - Closed Specialty Diagnoses / Procedures Referred By Etta no Referred To Contact Radiology Diagnoses Bilateral hydronephrosis Procedures IR Nephrogram/Nephrostomy Tube Exchange Bilateral Ana Gandhi PA [facility] [place] [address] [facility] [place] [address] Referral ID Status Reason Start Date Expiration Date V isits Requested Visits Authorized [id number] Closed Specialty Service Requested 02/13/2023 08/14/2024 1 1 Encounter Details Date Type Department Care Team (Late st Contact Info) Description 02/13/2023 [place] [address] Ana Gandhi PA [facility] [place] [address] Social History Tobacco Use Types [...] PM EDT Office Visit Hematology/Oncology at [address] [address] Chase Mckay MD [facility] [place] [address] documented as of this encounter Results * IR Nephrogram/Nephrostomy Tube Exchange Bilateral (02/13/2023 4:31 PM EDT) Anatomical Region Laterality Modality X-Ray Angiograph y Narrative 02/13/2023 4:51 PM EDT Preoperative Diagnosis: ? Chronic indwelling nephrostomy tubes for routine change. Postoperative Diagnosis: ?? Same Procedure Performed: Over the wire exchange of nephrostomy tubes Estimated Blood Loss: None Fluoroscopy time: Please see [facility] IR technologist record for procedural dose/time Operators: [...] and renal collecting system. ??A new 10 Kazakh tube was then advanced over the wire [...] performed the entire procedure. 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
--- OUTSIDE RECORDS SUMMARY | 2023-12-08 03:35 | XMS_ITS | Encounter Summary ---
Author Organization [facility] [place] [address] Care Team Providers Care Health Policy Analyst Name Role Phone Tavia Ramirez APRN Primary Care Provider Reason for Visit * Reason Comments Chemotherapy Cycle 26, Day 1 - Pe mbrolizumab * Treatment/Therapy Plan Authorization (Routine) - Closed Specialty Diagnoses / Procedures Referred By Contac t Referred To Contact Hematology and Oncology Diagnoses Metastatic urothelial carcinoma Abnormal thyroid function test Procedures [id number] Jose Barnhart MD [address] [place] [address] [place] [address] Jose Lange MD [address] [place] [address] [place] [address] Referral ID Status Reason Start Date Expiration Date Visits Re quested Visits Authorized [id number] Closed 04/28/2022 06/24/2023 99 99 Encounter Details Date Type Department Care Team (Late st Contact Info) Description 11/05/2022 11:30 AM EDT Infusion Hematology Oncology at [address] [address] Metastatic urothelial carcinoma Social History [...] PM EDT Office Visit Hematology/Oncology at [address] [address] Chase Mckay MD [facility] DR [place] [address] documented as of this encounter Visit Diagnoses [...] (IV) Procedure: Accessing Implanted Vascular Access Devices (144) procedure and/or Intravenous (IV) Job Aid: Adult Flushing & Catheter Care (8792) job aid for additional information regarding guidelines [...] Job Aid: Adult Flushing & Catheter Care (3259) job aid for additional information regarding guidelines and administration., Routine Given 11/05/2022 1:49 PM EDT 20 mLs sodium chloride 0.9% infusion 100 mL/hr, Intravenous, CONTINUOUS, Starting on Fri11/05/22 at 1230, Until Fri11/05/22 at 1823 New Bag 11/05/2022 12:15 PM EDT 100 mL/hr 100 mL/hr documented in this encounter Care Teams Health Policy Analyst Relationship Specialty Start Date End Date Tavia Ramirez, CORD TIRE BUILDER [facility] [place] [address] [address] PCP - General Family Medicine 06/11/22 documented as of this encounter
--- OUTSIDE RECORDS SUMMARY | 2023-12-08 03:35 | XMS_ITS | Encounter Summary ---
Author Organization [facility] Address [facility] [place] [address] Care Team Providers Care Network Communications Engineer Name Role Phone James Tavia Foster APRN Primary Care Provider [phone] Encounter Details Date Type Department Care Team [...] PM EDT Office Visit Hematology/Oncology at [address] [address] Chase Mckay MD [facility] DR HEMATOLOGY [place] [address] documented as of this encounter Visit Diagnoses Not on filedocumented in this encounter Care Teams Network Communications Engineer Relationship Specialty Start Date End Date Tavia Ramirez [place] [place] [address] PCP - General Family Medicine 06/11/22 documented as of this encounter
--- OUTSIDE RECORDS SUMMARY | 2023-12-08 03:35 | XMS_ITS | Encounter Summary ---
Author Organization [facility] Address [facility] [place] [address] Care Team Providers Care Healthcare Prof Name Role Phone James Tavia Foster APRN Primary Care Provider [phone] Encounter Details Date Type Department Care Team [...] PM EDT Office Visit Hematology/Oncology at [address] [address] Chase Mckay MD [facility] DR [place] [address] documented as of this encounter Visit Diagnoses Not on filedocumented in this encounter Care Teams Healthcare Prof Relationship Specialty Start Date End Date Tavia Ramirez [place] [place] [address] PCP - General Family Medicine 06/11/22 documented as of this encounter
--- OUTSIDE RECORDS SUMMARY | 2023-12-08 03:35 | XMS_ITS | Encounter Summary ---
Author Organization [facility] Address [facility] [place] [address] Care Team Providers Care Marketing Traffic Manager Name Role Phone James Tavia Foster APRN Primary Care Provider [phone] Encounter Details Date Type Department Care Team [...] PM EDT Office Visit Hematology/Oncology at [address] [address] Chase Mckay MD [facility] DR HEMATOLOGY [place] [address] documented as of this encounter Visit Diagnoses Not on filedocumented in this encounter Care Teams Marketing Traffic Manager Relationship Specialty Start Date End Date Tavia Ramirez APR[place] [address] PCP - General Family Medicine 06/11/22 documented as of this encounter
--- OUTSIDE RECORDS SUMMARY | 2023-12-08 03:35 | XMS_ITS | Encounter Summary ---
Author Organization [facility] [place] [address] Care Team Providers Care Adding Machine Mechanic Name Role Phone James Tavia Foster APRN Primary Care Provider [phone] Reason for Visit * Consultation (Routine) - Closed Specialty Diagnoses / Procedures Referred By Contac t Referred To Contact Otolaryngology Diagnoses Metastatic urothelial carcinoma Tongue lesion Primary lung adenocarcinoma, left Jose Lange MD [facility] DR [place] [address] [facility] Otolaryngology [address] [place] [phone] Referral ID Status Reason Start Date Expiration Date V isits Requested Visits Authorized [id number] Closed Consult, Test & Treat 10/08/2022 10/08/2023 1 1 Encounter Details Date Type Department Care Team (Late st Contact Info) Description 11/12/2022 1:40 PM EDT Office [place] [address] Iftikhar Steel III, MD [facility] [place] [address] Normal head and neck exam [...] Visit: 11/12/2022 Location of Visit: Otolaryngology Clinic, [facility] Patient: Barb Bullrad ([id number]; 1950) Primary Care Provider: Tavia Ramirez APRN [...] IR Mediport Placement 04/02/2021 Yuval Sinclair PA [facility] INTERVENTIONL RAD IR NEPHROSTOMY TUBE EXCHANGE BILATERAL 04/24/2022 IR Nephrogram/Nephrostomy Tube Exchange Bilateral 04/24/2022 Alin Dillard MD [facility] INTERVENTIONL RAD IR NEPHROSTOMY TUBE EXCHANGE BILATERAL 07/26/2022 IR Nephrogram/Nephrostomy Tube Exchange Bilateral 07/26/2022 Robe Hope PA [facility] INTERVENTIONL RAD IR NEPHROSTOMY TUBE EXCHANGE BILATERAL 10/18/2022 IR Nephrogram/Nephrostomy Tube Exchange Bilateral 10/18/2022 Alexis De La Cruz MD [facility] INTERVENTIONL RAD IR NEPHROSTOMY TUBE PLACEMENT PERCUTANEOUS BILATERAL 02/20/2021 IR Nephrostomy Tube Placement Percutaneous Bilateral [facility] INTERVENTIONL RAD IR NEPHROURETERAL (NU) STENT PLACEMENT/CHECK/CHANGE 07/13/2021 IR Nephroureteral (NU) Stent Placement Check/Change 07/13/2021 Alexis De La Cruz MD [facility] INTERVENTIONLRAD IR NEPHROURETERAL (NU) STENT PLACEMENT/CHECK/CHANGE 10/23/2021 IR Nephroureteral (NU) Stent Placement Check/Change 10/23/2021 Zeferino Rosado MD [facility] INTERVENTIONL RAD IR NEPHROURETERAL (NU) STENT PLACEMENT/CHECK/CHANGE 01/18/2022 IR Nephroureteral (NU) Stent Placement Check/Change 01/18/2022 Guillermo Nice MD [facility] INTERVENTIONLRAD PRO [facility] EBUS GUIDED SAMPL 3/> NODE STATION/STRUX N/A 04/04/2021 BRONCH, W ENDOBRONCHIAL ULTRASOUND (EBUS) GUIDED SAMPLING, 3+ NODES (WRVU 5.21) performed by Alonzo Cevallos MD at [facility] MAIN OR PRO BRONCHOSCOPY, DIAGNOSTIC W LAVAGE N/A 04/04/2021 BRONCHOSCOPY, RIGID OR FLEXIBLE, WITH BRONCHIAL ALVEOLAR LAVAGE (WRVU 2.88) performed by Alonzo Cevallos MD at [facility] MAIN OR Medications: Current Outpatient [...] no known allergies. Social History: Lives [place] [phone], Tobacco:No Alcohol:No Other: Immunizations UTD. Family History: [...] PM EDT Office Visit Hematology/Oncology at [address] [address] 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
--- OUTSIDE RECORDS SUMMARY | 2023-12-08 03:35 | XMS_ITS | Encounter Summary ---
Author Organization [facility] [place] [address] Care Team Providers Care Design Supervisor Name Role Phone Tavia Ramirez APRN Primary Care Provider [phone] Reason for Visit * Reason Comments Chemotherapy * Treatment/Therapy Plan Authorization (Routine) - Closed Specialty Diagnoses / Procedures Referred By Contac t Referred To Contact Hematology and Oncology Diagnoses Metastatic urothelial carcinoma Abnormal thyroid function test Procedures [id number] Jose Barnhart MD [address] [place] [address] [place] [address] Jose Lange MD [address] [place] [address] DR [place] [address] Referral ID Status Reason Start Date Expiration Date Visits Re quested Visits Authorized [id number] Closed 04/28/2022 06/24/2023 99 99 Encounter Details Date Type Department Care Team (Late st Contact Info) Description 01/07/2023 9:00 AM EDT Infusion Hematology Oncology at [address] [phone] Metastatic urothelial carcinoma Social History Tobacco Use [...] to treat. LAB DATA: Done today at [facility] and adequate for treatment. IV [...] PM EDT Office Visit Hematology/Oncology at [address] [address] Chase Mckay MD [facility] DR HEMATOLOGY [place] [address] documented as of this encounter Visit Diagnoses [...] 200 mg, Intravenous, ONCE, 1 dose, On Fri01/07/23 at 1045, Administer over 30 Minutes, Flush line with NS after each dose., This agent is restricted to outpatient use. Is this drug being given as an outpatient? Yes New Bag 01/07/2023 10:19 AM EDT 200 mg 21 6 mL/hr documented in this encounter Care Teams Design Supervisor Relationship Specialty Start Date End Date Tavia Ramirez [place] [address] [place] [address] PCP - General Family Medicine 06/11/22 documented as of this encounter
--- OUTSIDE RECORDS SUMMARY | 2023-12-08 03:35 | XMS_ITS | Encounter Summary ---
Author Organization [facility] Address [facility] [place] [address] Care Team Providers Care Radio Mechanic Apprentice Name Role Phone James Tavia Foster APRN Primary Care Provider [phone] Encounter Details Date Type Department Care Team [...] PM EDT Office Visit Hematology/Oncology at [address] [address] Chase Mckay MD [facility] DR [place] [address] documented as of this encounter Visit Diagnoses Not on filedocumented in this encounter Care Teams Radio Mechanic Apprentice Relationship Specialty Start Date End Date Tavia Ramirez [place] [place] [address] PCP - General Family Medicine 06/11/22 documented as of this encounter
--- OUTSIDE RECORDS SUMMARY | 2023-12-08 03:35 | XMS_ITS | Encounter Summary ---
Author Organization [facility] [place] [address] Care Team Providers Care Technical Maintenance Technician Name Role Phone Tavia Ramirez Cristian FRANCOIS Primary Care Provider [phone] Reason for Visit * Diagnostic Test (Routine) - Closed Specialty Diagnoses / Procedures Referred By Contac t Referred To Contact Radiology Diagnoses Metastatic urothelial carcinoma Primary lung adenocarcinoma, left Procedures NM PET CT Skull Base to Mid-thigh Jose Lange MD [facility] [address] [place] [address] [place] [address] Referral ID Status Reason Start Date Expiration Date V isits Requested Visits Authorized [id number] Closed Specialty Service Requested 08/13/2022 02/13/2024 1 1 Encounter Details Date Type Department Care Team (Latest Contact Info) Description 10/10/2022 2:19 PM EDT - 10/10/2022 11:59 PM EDT Hospital En[place] [address] Jose Lange MD [facility] DR [place] [address] Discharge Disposition: Home Social History [...] PM EDT Office Visit Hematology/Oncology at [address] [address] Chase Mckay MD [facility] DR [place] [address] documented as of this encounter Procedures Procedure Name Priority Date/Time Associated Diagnosis Comments NM PET CT SKULL BASE TO MID-THIGH (LCSR) Routine 10/10/2022 4:00 PM EDT Metastatic urothelial carcinoma Primary lung adenocarcinoma, left POCT GLUCOSE Routine 10/10/2022 2:28 PM EDT documented in this encounter Results * POCT Glucose (10/10/2022 2:28 PM EDT) Glucose, POC 90 65 - 199 mg/dL [facility] Comment: Supplemental ranges: <140 mg/dL before meals <180 mg/dL all other times of the day Blood 10/10/2022 2:28 PM EDT 10/10/2022 2:28 PM EDT Jose Lange MD POINT OF CARE TEST O RDERABLES [facility] [place] [address] documented in this encounter Visit Diagnoses Not on filedocumented in this encounter Care Teams Technical Maintenance Technician Relationship Specialty Start Date End Date Tavia Ramirez APRN [address] [place] [address] PCP - General Family Medicine 06/11/22 documented as of this encounter
--- OUTSIDE RECORDS SUMMARY | 2023-12-08 03:35 | XMS_ITS | Encounter Summary ---
Author Organization [facility] [place] [address] Care Team Providers Care Clinical Resource Manager Name Role Phone Tavia Ramirez APRN Primary Care Provider [phone] Reason for Visit * Reason Comments Chemotherapy * Treatment/Therapy Plan Authorization (Routine) - Closed Specialty Diagnoses / Procedures Referred By Contac t Referred To Contact Hematology and Oncology Diagnoses Metastatic urothelial carcinoma Abnormal thyroid function test Procedures [id number] Jose Barnhart MD [address] [place] [address] [place] [address] Jose Lange MD [address] [place] [address] [place] [address] Referral ID Status Reason Start Date Expiration Date Visits Re quested Visits Authorized [id number] Closed 04/28/2022 06/24/2023 99 99 Encounter Details Date Type Department Care Team (Late st Contact Info) Description 01/28/2023 10:00 AM EDT Infusion Hematology Oncology at [address] [phone] Metastatic urothelial carcinoma Social History Tobacco Use [...] PM EDT Office Visit Hematology/Oncology at [address] [address] Chase Mckay MD [facility] DR HEMATOLOGY [place] [address] documented as of this encounter Visit Diagnoses [...] 500 Units, Intravenous, ONCE PRN, Starting on Fri01/28/23 at 0953, Until Fri01/28/23 at 1724, Line Care, Refer to Intravenous (IV) Procedure: Accessing Implanted Vascular Access Devices (574) procedure and/or Intravenous (IV) Job Aid: Adult Flushing & Catheter Care (2211) job aid for additional information regarding guidelines and administration., Routine Given 01/28/2023 11:24 AM EDT 500 Units pembrolizumab (Keytruda) 200 mg in sodium chloride 0.9% 108 mL infusion 200 mg, Intravenous, ONCE, 1 dose, On e 01/28/23 at 1115, Administer over 30 Minutes, Flush line with NS after each dose., This agent is restricted to outpatient use. Is this drug being given as an outpatient? Yes New Bag 01/28/2023 10:46 AM EDT 200 mg 216 mL/hr documented in this encounter Care Teams Clinical Resource Manager Relationship Specialty Start Date End Date Tavia Ramirez [place] [address] [place] [address] PCP - General Family Medicine 06/11/22 documented as of this encounter
--- OUTSIDE RECORDS SUMMARY | 2023-12-08 03:35 | XMS_ITS | Encounter Summary ---
Author Organization [facility] Address [facility] [place] [address] Care Team Providers Care Radiologic Technologist Mammogram Name Role Phone James Tavia Foster APRN Primary Care Provider [phone] Encounter Details Date Type Department Care Team [...] PM EDT Office Visit Hematology/Oncology at [address] [address] Chase Mckay MD [facility] DR [place] [address] documented as of this encounter Visit Diagnoses Not on filedocumented in this encounter Care Teams Radiologic Technologist Mammogram Relationship Specialty Start Date End Date Tavia Ramirez [place] [address] [place] [address] PCP - General Family Medicine 06/11/22 documented as of this encounter
--- OUTSIDE RECORDS SUMMARY | 2023-12-08 03:35 | XMS_ITS | Encounter Summary ---
Author Organization [facility] Address [facility] [place] [address] Care Team Providers Care Dishroom Attendant Name Role Phone James Tavia Foster APRN Primary Care Provider [phone] Encounter Details Date Type Department Care Team [...] PM EDT Office Visit Hematology/Oncology at [address] [address] Chase Mckay MD [facility] DR [place] [address] documented as of this encounter Visit Diagnoses Not on filedocumented in this encounter Care Teams Dishroom Attendant Relationship Specialty Start Date End Date Tavia Ramirez APR[place] [address] PCP - General Family Medicine 06/11/22 documented as of this encounter
--- OUTSIDE RECORDS SUMMARY | 2023-12-08 03:35 | XMS_ITS | Encounter Summary ---
Author Organization [facility] [place] [address] Care Team Providers Care Director Client Services Name Role Phone Tavia Ramirez APRN Primary Care Provider [phone] Reason for Visit * Reason Comments Chemotherapy Cycle 28, Day 1 - Pe mbrolizumab * Treatment/Therapy Plan Authorization (Routine) - Closed Specialty Diagnoses / Procedures Referred By Contac t Referred To Contact Hematology and Oncology Diagnoses Metastatic urothelial carcinoma Abnormal thyroid function test Procedures [id number] Jose Barnhart MD [address] [place] [address] [place] [address] Jose Lange MD [address] [place] [address] [place] [address] Referral ID Status Reason Start Date Expiration Date Visits Re quested Visits Authorized [id number] Closed 04/28/2022 06/24/2023 99 99 Encounter Details Date Type Department Care Team (Late st Contact Info) Description 12/17/2022 1:30 PM EDT Infusion Hematology Oncology at [address] [address] Metastatic urothelial carcinoma Social History [...] PM EDT Office Visit Hematology/Oncology at [address] [phone] Chase Mckay MD [facility] [place] [address] documented as of this encounter Visit Diagnoses [...] Job Aid: Adult Flushing & Catheter Care (9736) job aid for additional information regarding guidelines [...] Job Aid: Adult Flushing & Catheter Care (0711) job aid for additional information regarding guidelines and administration., Routine Given 12/17/2022 3:03 PM EDT 20 mLs sodium chloride 0.9% infusion 100 mL/hr, Intravenous, CONTINUOUS, Starting on Fri12/17/22 at 1430, Until Fri12/17/22 at 1756 New Bag 12/17/2022 2:15 PM EDT 100 mL/hr 100 mL/hr documented in this encounter Care Teams Director Client Services Relationship Specialty Start Date End Date Tavia Ramirez APRN [address] [place] [address] PCP - General Family Medicine 06/11/22 documented as of this encounter
--- OUTSIDE RECORDS SUMMARY | 2023-12-08 03:35 | XMS_ITS | Encounter Summary ---
Author Organization [facility] [place] [address] Care Team Providers Care Wildlife Biologist Name Role Phone James Tavia Foster APRN Primary Care Provider [phone] Reason for Referral * Consultation (Routine) - Closed Specialty Diagnoses / Procedures Referred By Contac t Referred To Contact Otolaryngology Diagnoses Metastatic urothelial carcinoma Tongue lesion Primary lung adenocarcinoma, left Jose Lange MD [facility] [place] [address] [facility] [address] [place] [phone] Referral ID Status Reason Start Date Expiration Date V isits Requested Visits Authorized [id number] Closed Consult, Test & Treat 10/08/2022 10/08/2023 1 1 Encounter Details Date Type Department Care Team (Late st Contact Info) Description 10/08/2022 1:00 PM EDT Office Visit Hematology/Oncology at [address] [phone] Jose Lange MD [facility] [place] [address] Tea Dimas APRN [facility] [place] [address] Metastatic urothelial carcinoma; Hypothyroidism due to drugs; [...] were not included. Hematology & Medical Oncology [address] [phone] Barb returns today to continue treatment for [...] distinct lung primary. She was seen by media consultant outside sales , who recommended rigid bronchoscopy withattempts to [...] She wasdischarged home on 05/01/21 INTERVAL HISTORY(10/08/22)- Barb returns today for followup of her [...] catheters 01/18/2022 UTI 09/14/2021 04/26/21-05/01/21 admission to [facility] with pneumonia, Pulmonary hypertension/CHF, BRITNI 04/16/2021 nephrostomy catheter exchange 04/04/21 bronchoscopy and tumor debulking- endobronchial biopsies positive for adenocarcinoma of lung origin Social History: No interval changes since last visit 51-smib-wyga smoking history quit 6 years ago, does [...] assay was performed according to the hand carver's instructions using Anti-PD-L1 (22C3, pharmDX) antibody. Electronically signed by: Herbert Ford MD Verified: 04/11/2021 8:14 Pathologist Performed at: -[facility] Dept. of Pathology, [place], [place] Surgical Pathology DIAGNOSIS A - Lung, left lower lobe mass, debulking: - Adenocarcinoma, consistent with lung primary. Electronically signed by: Sana Dowell MD Verified: 04/06/2021 11:16 Pathologist Performed at: -[facility] Dept. of Pathology, [place], [place] DISCUSSION Sections show an invasive, predominantly [...] of presumably metastatic urothelial carcinoma which include hamilton based chemotherapy versus immunotherapy. 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
--- OUTSIDE RECORDS SUMMARY | 2023-12-08 03:35 | XMS_ITS | Encounter Summary ---
Author Organization [facility] Address [facility] [place] [address] Care Team Providers Care Laborer High Density Press Name Role Phone James Tavia Foster APRN Primary Care Provider [phone] Encounter Details Date Type Department Care Team [...] PM EDT Office Visit Hematology/Oncology at [address] [phone] Chase Mckay MD [facility] DR [place]EMATOLOGY [place] [address] documented as of this encounter Visit Diagnoses Not on filedocumented in this encounter Care Teams Laborer High Density Press Relationship Specialty Start Date End Date Tavia Ramirez APR[place] [address] PCP - General Family Medicine 06/11/22 documented as of this encounter
--- OUTSIDE RECORDS SUMMARY | 2023-12-08 03:35 | XMS_ITS | Encounter Summary ---
Author Organization [facility] Address [facility] [place] [address] Care Team Providers Care Computer Installer Name Role Phone Tavia Ramirez APRN Primary Care Provider [phone] Encounter Details Date Type Department Care Team (Late st Contact Info) Description 01/27/2023 Telephone Hematology/Oncology at [address] [phone] Bhumi Maradiaga Social History Tobacco [...] PM EDT Office Visit Hematology/Oncology at [address] [phone] Chase Mckay MD [facility] DR [place] [address] documented as of this encounter Visit Diagnoses Not on filedocumented in this encounter Care Teams Computer Installer Relationship Specialty Start Date End Date Tavia Ramirez [place] [place] [address] PCP - General Family Medicine 06/11/22 documented as of this encounter
--- OUTSIDE RECORDS SUMMARY | 2023-12-08 03:35 | XMS_ITS | Encounter Summary ---
Author Organization [facility] [place] [address] Care Team Providers Care Barber Apprentice Name Role Phone Tavia Ramirez APRN Primary Care Provider [phone] Reason for Visit * Reason Comments Chemotherapy Cycle 25 Day 1 Pembr olizumab * Treatment/Therapy Plan Authorization (Routine) - Closed Specialty Diagnoses / Procedures Referred By Contac t Referred To Contact Hematology and Oncology Diagnoses Metastatic urothelial carcinoma Abnormal thyroid function test Procedures [id number] Jose Barnhart MD [address] [place] [address] [place] [address] Jose Lange MD [address] [place] [address] [place] [address] Referral ID Status Reason Start Date Expiration Date Visits Re quested Visits Authorized [id number] Closed 04/28/2022 06/24/2023 99 99 Encounter Details Date Type Department Care Team (Late st Contact Info) Description 10/08/2022 1:30 PM EDT Infusion Hematology Oncology at [address] [phone] Metastatic urothelial carcinoma Social History Tobacco Use [...] and BSA by Margarita Watson, RN & [facility] onsite. REACTIONS (DESCRIPTION, TIME, INTERVENTION AND EFFECTIVENESS) none ASSESSMENT Barb was awake, alert and tolerated treatment well. PLAN Return to clinic per routine. documented in this encounter Plan of Treatment Upcoming Encounters Date Type Department Care Team (Late st Contact Info) Description 12/08/2023 3:30 PM EDT Office Visit Hematology/Oncology at [address] [phone] [facility] DR HEMATOLOGY [place] [address] documented as of this encounter Visit Diagnoses [...] (IV) Procedure: Accessing Implanted Vascular Access Devices (304) procedure and/or Intravenous (IV) Job Aid: Adult Flushing & Catheter Care (8441) job aid for additional information regarding guidelines and administration., Routine Given 10/08/2022 3:02 PM EDT 500 Units pembrolizumab (Keytruda) 200 mg in sodium chloride 0.9% 108 mL infusion 200 mg, Intravenous, ONCE, 1 dose, On Fri10/08/22 at 1515, Administer over 30 Minutes, Flush [...] Job Aid: Adult Flushing & Catheter Care (4976) job aid for additional information regarding guidelines and administration., Routine Given 10/08/2022 3:02 PM EDT 20 mLs documented in this encounter Care Teams Barber Apprentice Relationship Specialty Start Date End Date Tavia Ramirez, GARNETT MECH[place] [address] [place] [address] PCP - General Family Medicine 06/11/22 documented as of this encounter
--- OUTSIDE RECORDS SUMMARY | 2023-12-08 03:35 | XMS_ITS | Encounter Summary ---
Author Organization [facility] [place] [address] Care Team Providers Care Medical Case Worker Name Role Phone James Tavia Foster APRN Primary Care Provider [phone] Encounter Details Date Type Department Care Team [...] Office Visit Hematology/Oncology at [address] [phone] Chase Mckay MD [facility] DR HEMATOLOGY [place] [address] documented as of this encounter Visit Diagnoses Not on filedocumented in this encounter Care Teams Medical Case Worker Relationship Specialty Start Date End Date Tavia Ramirez [place] [place] [address] PCP - General Family Medicine 06/11/22 documented as of this encounter
--- OUTSIDE RECORDS SUMMARY | 2023-12-08 03:35 | XMS_ITS | Encounter Summary ---
Author Organization [facility] [place] [address] Care Team Providers Care College Of Education Dean Name Role Phone Tavia Ramirez ALESSANDRO Primary Care Provider [phone] Encounter Details Date Type Department Care Team (Late st Contact Info) Description 11/08/2022 Notes [place] [phone] Maria Fernanda Suarez PA [facility] [place] [address] Social History Tobacco Use Types Packs/Day Years [...] IR Mediport Placement 04/02/2021 Yuval Sinclair PA [facility] INTERVENTIONL RAD IR NEPHROSTOMY TUBE EXCHANGE BILATERAL 04/24/2022 IR Nephrogram/Nephrostomy Tube Exchange Bilateral 04/24/2022 Alin Dillard MD [facility] INTERVENTIONL RAD IR NEPHROSTOMY TUBE EXCHANGE BILATERAL 07/26/2022 IR Nephrogram/Nephrostomy Tube Exchange Bilateral 07/26/2022 Robe Hope PA [facility] INTERVENTIONL RAD IR NEPHROSTOMY TUBE EXCHANGE BILATERAL 10/18/2022 IR Nephrogram/Nephrostomy Tube Exchange Bilateral 10/18/2022 Alexis De La Cruz MD [facility] INTERVENTIONL RAD IR NEPHROSTOMY TUBE PLACEMENT PERCUTANEOUS BILATERAL 02/20/2021 IR Nephrostomy Tube Placement Percutaneous Bilateral [facility] INTERVENTIONL RAD IR NEPHROURETERAL (NU) STENT PLACEMENT/CHECK/CHANGE 07/13/2021 IR Nephroureteral (NU) Stent Placement Check/Change 07/13/2021 Alexis De La Cruz MD [facility] INTERVENTIONLRAD IR NEPHROURETERAL (NU) STENT PLACEMENT/CHECK/CHANGE 10/23/2021 IR Nephroureteral (NU) Stent Placement Check/Change 10/23/2021 Zeferino Rosado MD [facility] INTERVENTIONL RAD IR NEPHROURETERAL (NU) STENT PLACEMENT/CHECK/CHANGE 01/18/2022 IR Nephroureteral (NU) Stent Placement Check/Change 01/18/2022 Guillermo Nice MD [facility] INTERVENTIONLRAD PRO [facility] EBUS GUIDED SAMPL 3/> NODE STATION/STRUX N/A 04/04/2021 BRONCH, W ENDOBRONCHIAL ULTRASOUND (EBUS) GUIDED SAMPLING, 3+ NODES (WRVU 5.21) performed by Alonzo Cevallos MD at [facility] MAIN OR PRO BRONCHOSCOPY, DIAGNOSTIC W LAVAGE N/A 04/04/2021 BRONCHOSCOPY, RIGID OR FLEXIBLE, WITH BRONCHIAL ALVEOLAR LAVAGE (WRVU 2.88) performed by Alonzo Cevallos MD at [facility] MAIN OR Social History and Habits: Social [...] PM EDT Office Visit Hematology/Oncology at [address] [phone] Chase Mckay MD [facility] [place] [address] documented as of this encounter Visit Diagnoses Not on filedocumented in this encounter Care Teams College Of Education Dean Relationship Specialty Start Date End Date Tavia Ramirez APRN [place] [address] PCP - General Family Medicine 06/11/22 documented as of this encounter
--- OUTSIDE RECORDS SUMMARY | 2023-12-08 03:35 | XMS_ITS | Encounter Summary ---
Author Organization [facility] [place] [address] Care Team Providers Care Pipe And Tank Fabricator Name Role Phone JamesTavia ALESSANDRO Primary Care Provider Encounter Details Date Type Department Care Team (Late st Contact Info) Description 11/05/2022 11:00 AM EDT Office Visit Hematology/Oncology at [address] [phone] Jose Lange MD [facility] DR HEMATOLOGY [place] [address] Tea Dimas APRN [facility] [place] [address] Metastatic urothelial carcinoma; Hypothyroidism due to drugs; [...] not included. Hematology & Medical Oncology [address] [phone] Barb returns today to continue treatment for [...] distinct lung primary. She was seen by roofing sales representative , who recommended rigid bronchoscopy withattempts to [...] catheters 01/18/2022 UTI 09/14/2021 04/26/21-05/01/21 admission to [facility] with pneumonia, Pulmonary hypertension/CHF, BRITNI 04/16/2021 nephrostomy catheter exchange 04/04/21 bronchoscopy and tumor debulking- endobronchial biopsies positive for adenocarcinoma of lung origin Social History: No interval changes since last visit [id number] smoking history quit 6 years ago, does [...] The assay was performed according to the foam rubber molder's instructions using Anti-PD-L1 (22C3, pharmDX) antibody. Electronically signed by: Herbert Ford MD Verified: 04/11/2021 8:14 Pathologist Performed at: -[facility] Dept. of Pathology, [place], [place] Surgical Pathology DIAGNOSIS A - Lung, left lower lobe mass, debulking: - Adenocarcinoma, consistent with lung primary. Electronically signed by: Sana Dowell MD Verified: 04/06/2021 11:16 Pathologist Performed at: -[facility] Dept. of Pathology, [place], [place] DISCUSSION Sections show an invasive, predominantly [...] of presumably metastatic urothelial carcinoma which include siletz tribe based chemotherapy versus immunotherapy. Due to her [...] to ENT at 4. 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 Other iatrogenic hypothyroidism Tongue lesion Other specified conditions of the tongue Primary lung adenocarcinoma, left Anemia, unspecified type 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 Malignant neoplasm of lower lobe, bronchus, or lung Metastatic urothelial carcinoma 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
--- OUTSIDE RECORDS SUMMARY | 2023-12-08 03:35 | XMS_ITS | Encounter Summary ---
Author Organization [facility] [place] [address] Care Team Providers Care Nuclear Plant Operator Name Role Phone James Tavia Foster APRN Primary Care Provider [phone] Encounter Details Date Type Department Care Team (Late st Contact Info) Description 11/26/2022 10:00 AM EDT Office Visit Hematology/Oncology at [address] [phone] Tea Dimas APRN [facility] [place] [address] Primary malignant neoplasm of left lower lobe [...] not included. Hematology & Medical Oncology [address] [phone] Barb returns today to continue treatment for [...] distinct lung primary. She was seen by roll picker , who recommended rigid bronchoscopy withattempts to [...] catheters 01/18/2022 UTI 09/14/2021 04/26/21-05/01/21 admission to [facility] with pneumonia, Pulmonary hypertension/CHF, BRITNI 04/16/2021 nephrostomy catheter exchange 04/04/21 bronchoscopy and tumor debulking- endobronchial biopsies positive for adenocarcinoma of lung origin Social History: No interval changes since last visit [id number] smoking history quit 6 years ago, does [...] The assay was performed according to the sock turner's instructions using Anti-PD-L1 (22C3, pharmDX) antibody. Electronically signed by: Herbert Ford MD Verified: 04/11/2021 8:14 Pathologist Performed at: -[facility] Dept. of Pathology, [place], [place] Surgical Pathology DIAGNOSIS A - Lung, left lower lobe mass, debulking: - Adenocarcinoma, consistent with lung primary. Electronically signed by: Sana Dowell MD Verified: 04/06/2021 11:16 Pathologist Performed at: -[facility] Dept. of Pathology, [place], [place] DISCUSSION Sections show an invasive, predominantly [...] of presumably metastatic urothelial carcinoma which include [place] cro[place] based chemotherapy versus immunotherapy. Due to her [...] PM EDT Office Visit Hematology/Oncology at [address] [phone] Chase Mckay MD [facility] DR [place] [address] documented as of this encounter Visit Diagnoses [...] pleura documented in this encounter Care Teams Nuclear Plant Operator Relationship Specialty Start Date End Date Tavia Ramirez APRN [address] [place] [address] PCP - General Family Medicine 06/11/22 documented as of this encounter
--- OUTSIDE RECORDS SUMMARY | 2023-12-08 03:35 | XMS_ITS | Encounter Summary ---
[place] [address] Care Team Providers Care Bindery Assistant Name Role Phone James Tavia Foster APRN Primary Care Provider [phone] Reason for Referral * Diagnostic Test (Routine) - Closed Specialty Diagnoses / Procedures Referred By Contac t Referred To Contact Radiology Diagnoses Metastatic urothelial carcinoma Primary lung adenocarcinoma, left Procedures NM PET CT Skull Base to Mid-thigh Jose Lange MD [facility] DR H[place] [address] [place] [address] Referral ID Status Reason Start Date Expiration Date V isits Requested Visits Authorized [id number] Closed Specialty Service Requested 08/13/2022 02/13/2024 1 1 Reason for Visit * Diagnostic Test (Routine) - Closed Specialty Diagnoses / Procedures Referred By Contac t Referred To Contact Radiology Diagnoses Metastatic urothelial carcinoma Primary lung adenocarcinoma, left Procedures NM PET CT Skull Base to Mid-thigh Jose Lange MD [facility] DR H[place] [address] [place] [address] Referral ID Status Reason Start Date Expiration Date V isits Requested Visits Authorized [id number] Closed Specialty Service Requested 08/13/2022 02/13/2024 1 1 Encounter Details Date Type Department Care Team (Latest Contact Info) Description 10/10/2022 2:19 PM EDT - 10/10/2022 11:59 PM EDT Hospital Encounter [place] [address] Jose Lange MD [facility] DR [place]OLOG[place] [address] Metastatic urothelial carcinoma; Primary lung adenocarcinoma, left [...] PM EDT Office Visit Hematology/Oncology at [address] [phone] Chase Mckay MD [facility] DR [place] [address] documented as of this encounter Procedures Procedure [...] questions please contact the health career services representative that requested your imaging first. ? Narrative 10/11/2022 8:59 AM EDT EXAMINATION: NM PET CT STANDARD SKULL BASE TO MID-THIGH CLINICAL HISTORY: Urologic cancer, assess treatment response - Include more detail below Restaging of metastatic urothelial carcinoma TECHNIQUE: Following IV injection of 53-uumnmx-5-deoxyglucose (FDG) a standard uptake of approximately 60 [...] urothelial carcinoma TECHNIQUE: Following IV injection of 68-builry-5-deoxyglucose (FDG) astandard uptake of approximately 60 minutes, [...] have questions please contactthe health career services representative that requested your imaging first. Jose Lange MD IMG PET ORDERABLES documented in this encounter Visit Diagnoses Diagnosis Metastatic urothelial carcinoma Secondary malignant neoplasm of other urinary organs Primary lung adenocarcinoma, left Primary malignant neoplasm [...] Arm documented in this encounter Care Teams Bindery Assistant Relationship Specialty Start Date End Date Tavia Ramirez, SNACK BAR ATTENDANT [place] [address] PCP - General Family Medicine 06/11/22 documented as of this encounter
--- OUTSIDE RECORDS SUMMARY | 2023-12-08 03:35 | XMS_ITS | Encounter Summary ---
Author Organization [facility] Address [facility] [place] [address] Care Team Providers Care Trash Hauler Name Role Phone James Tavia Foster APRN Primary Care Provider [phone] Encounter Details Date Type Department Care Team [...] PM EDT Office Visit Hematology/Oncology at [address] [phone] Chase Mckay MD [facility] DR HEMATOLOGY [place] [address] documented as of this encounter Visit Diagnoses Not on filedocumented in this encounter Care Teams Trash Hauler Relationship Specialty Start Date End Date Tavia Ramirez APRN [place] [address] PCP - General Family Medicine 06/11/22 documented as of this encounter
--- OUTSIDE RECORDS SUMMARY | 2023-12-08 03:35 | XMS_ITS | Encounter Summary ---
Author Organization [facility] Address [facility] [place] [address] Care Team Providers Care Emergency Preparedness Coordinator Name Role Phone James Tavia Foster APRN Primary Care Provider [phone] Encounter Details Date Type Department Care Team [...] PM EDT Office Visit Hematology/Oncology at [address] [phone] Chase Mckay MD [facility] DR [place] [address] documented as of this encounter Visit Diagnoses Not on filedocumented in this encounter Care Teams Emergency Preparedness Coordinator Relationship Specialty Start Date End Date Tavia Ramirez APR[place] [address] PCP - General Family Medicine 06/11/22 documented as of this encounter
--- OUTSIDE RECORDS SUMMARY | 2023-12-08 03:35 | XMS_ITS | Encounter Summary ---
Author Organization [facility] Address [place] [address] Care Team Providers Care Supervisor Road Administrator Name Role Phone James Tavia Foster APRN Primary Care Provider [phone] Encounter Details Date Type Department Care Team [...] PM EDT Office Visit Hematology/Oncology at [address] [phone] Chase Mckay MD [facility] DR HEMATOLOGY [place] [address] documented as of this encounter Visit Diagnoses Not on filedocumented in this encounter Care Teams Supervisor Road Administrator Relationship Specialty Start Date End Date Tavia Ramirez [place] [address] [place] [address] PCP - General Family Medicine 06/11/22 documented as of this encounter
--- OUTSIDE RECORDS SUMMARY | 2023-12-08 03:35 | XMS_ITS | Encounter Summary ---
Author Organization [facility] [place] [address] Care Team Providers Care Bale Coverer Name Role Phone James Tavia Foster APRN Primary Care Provider [phone] Encounter Details Date Type Department Care Team (Late st Contact Info) Description 12/16/2022 Orders Only Hematology [place] [address] Tea Dimas APRN [facility] [place] [address] Social History Tobacco Use Types Packs/Day Years [...] PM EDT Office Visit Hematology/Oncology at [address] [phone] Chase Mckay MD [facility] DR HEMATOLOGY [place] [address] documented as of this encounter Visit Diagnoses Not on filedocumented in this encounter Care Teams Bale Coverer Relationship Specialty Start Date End Date Tavia Ramirez APRN [address] [place] [address] PCP - General Family Medicine 06/11/22 documented as of this encounter
--- OUTSIDE RECORDS SUMMARY | 2023-12-08 03:35 | XMS_ITS | Encounter Summary ---
Author Organization [facility] [place] [address] Care Team Providers Care Traffic Workforce Representative Name Role Phone Tavia Ramirez APRN Primary Care Provider [phone] Reason for Visit * Reason Comments Chemotherapy C24 D1-Pembrolizumab * Treatment/Therapy Plan Authorization (Routine) - Closed Specialty Diagnoses / Procedures Referred By Contac t Referred To Contact Hematology and Oncology Diagnoses Metastatic urothelial carcinoma Abnormal thyroid function test Procedures [id number] Jose Barnhart MD [address] [place] [address] DR [place] [address] Jose Lange MD [address] [place] [address] DR [place] [address] Referral ID Status Reason Start Date Expiration Date Visits Re quested Visits Authorized [id number] Closed 04/28/2022 06/24/2023 99 99 Encounter Details Date Type Department Care Team (Late st Contact Info) Description 09/03/2022 2:00 PM EDT Infusion Hematology Oncology at [address] [phone] Metastatic urothelial carcinoma Social History [...] blood return. LAB DATA: Done today at [facility] for treatment. IV ACCESS: Port accessed [...] PM EDT Office Visit Hematology/Oncology at [address] [phone] Chase Mckay MD [facility] DR [place] [address] documented as of this encounter Visit Diagnoses [...] mL/hr documented in this encounter Care Teams Traffic Workforce Representative Relationship Specialty Start Date End Date Tavia Ramirez APRN [address] [facility] [place] [address] PCP - General Family Medicine 06/11/22 documented as of this encounter
--- OUTSIDE RECORDS SUMMARY | 2023-12-08 03:35 | XMS_ITS | Encounter Summary ---
Author Organization Count Includes [facility] Address [place] [address] Care Team Providers Care Deputy Coroner Name Role Phone James Tavia Foster APRN Primary Care Provider [phone] Encounter Details Date Type Department Care Team [...] PM EDT Office Visit Hematology/Oncology at [address] [phone] Chase Mckay MD [facility] DR [place] [address] documented as of this encounter Visit Diagnoses Not on filedocumented in this encounter Care Teams Deputy Coroner Relationship Specialty Start Date End Date Tavia Ramirez [place] [place] [address] PCP - General Family Medicine 06/11/22 documented as of this encounter
--- OUTSIDE RECORDS SUMMARY | 2023-12-08 03:35 | XMS_ITS | Encounter Summary ---
Author Organization [facility] [place] [address] Care Team Providers Care Resident Doctor Name Role Phone Tavia Ramirez APRN Primary Care Provider [phone] Reason for Visit * Reason Comments Chemotherapy * Treatment/Therapy Plan Authorization (Routine) - Closed Specialty Diagnoses / Procedures Referred By Contac t Referred To Contact Hematology and Oncology Diagnoses Metastatic urothelial carcinoma Abnormal thyroid function test Procedures [id number] Jose Barnhart MD [address] [place] [address] [place] [address] Jose Lange MD [address] [place] [address] [place] [address] Referral ID Status Reason Start Date Expiration Date Visits Re quested Visits Authorized [id number] Closed 04/28/2022 06/24/2023 99 99 Encounter Details Date Type Department Care Team (Late st Contact Info) Description 11/26/2022 10:30 AM EDT Infusion Hematology Oncology at [address] [phone] Metastatic urothelial carcinoma Social History Tobacco Use [...] PM EDT Office Visit Hematology/Oncology at [address] [phone] Chase Mckay MD [facility] [address] [place] [address] documented as of this encounter Visit Diagnoses [...] Job Aid: Adult Flushing & Catheter Care (0539) job aid for additional information regarding guidelines [...] mL/hr documented in this encounter Care Teams Resident Doctor Relationship Specialty Start Date End Date Tavia Ramirez, [place] [address] PCP - General Family Medicine 06/11/22 documented as of this encounter
--- OUTSIDE RECORDS SUMMARY | 2023-12-08 03:35 | XMS_ITS | Encounter Summary ---
Author Organization [facility] Address [place] [address] Care Team Providers Care Gas Engine Performance Engineer Name Role Phone James Tavia Foster APRN Primary Care Provider [phone] Encounter Details Date Type Department Care Team [...] PM EDT Office Visit Hematology/Oncology at [address] [phone] [facility] DR HEMATOLOGY [place] [address] documented as of this encounter Visit Diagnoses Not on filedocumented in this encounter Care Teams Gas Engine Performance Engineer Relationship Specialty Start Date End Date Tavia Ramirez [place] [address] [place] [address] PCP - General Family Medicine 06/11/22 documented as of this encounter
--- OUTSIDE RECORDS SUMMARY | 2023-12-08 03:35 | XMS_ITS | Encounter Summary ---
Author Organization [facility] Address [facility] [place] [address] Care Team Providers Care Weigher And Charger Name Role Phone James Tavia Foster APRN Primary Care Provider [phone] Encounter Details Date Type Department Care Team (Late st Contact Info) Description 01/07/2023 9:00 AM EDT Office Visit Hematology/Oncology at [address] [phone] Jose Lange MD [facility] DR [place] [address] Tea Dimas APRN [facility] [place] [address] Primary malignant neoplasm of left lower lobe [...] were not included. Hematology & Medical Oncology [address] [phone] Barb returns today to continue treatment for [...] distinct lung primary. She was seen by manager billing , who recommended rigid bronchoscopy withattempts to [...] catheters 01/18/2022 UTI 09/14/2021 04/26/21-05/01/21 admission to [facility] with pneumonia, Pulmonary hypertension/CHF, BRITNI 04/16/2021 nephrostomy catheter exchange 04/04/21 bronchoscopy and tumor debulking- endobronchial biopsies positive for adenocarcinoma of lung origin Social History: No interval changes since last visit 78-dlrq-deda smoking history quit 6 years ago, does [...] The assay was performed according to the core inspector's instructions using Anti-PD-L1 (22C3, pharmDX) antibody. Electronically signed by: Herbert Ford MD Verified: 04/11/2021 8:14 Pathologist Performed at: -[facility] [place] [place], [place], [place] Surgical Pathology DIAGNOSIS A - Lung, left lower lobe mass, debulking: - Adenocarcinoma, consistent with lung primary. Electronically signed by: Sana Dowell MD Verified: 04/06/2021 11:16 Pathologist Performed at: -[facility]. [place], [place], [place] DISCUSSION Sections show an invasive, predominantly [...] of presumably metastatic urothelial carcinoma which include [place] based chemotherapy versus immunotherapy. Due to her [...] PM EDT Office Visit Hematology/Oncology at [address] [phone] Chase Mckay MD [facility] [place] [address] documented as of this encounter Visit Diagnoses [...] pleura documented in this encounter Care Teams Weigher And Charger Relationship Specialty Start Date End Date Tavia Ramirez, GRAIN FARMER [facility] [place] [address] PCP - General Family Medicine 06/11/22 documented as of this encounter
--- OUTSIDE RECORDS SUMMARY | 2023-12-08 03:35 | XMS_ITS | Encounter Summary ---
Author Organization [facility] Address [facility] [place] [address] Care Team Providers Care Fuel Storage Technician Name Role Phone James Tavia Foster APRN Primary Care Provider [phone] Encounter Details Date Type Department Care Team [...] PM EDT Office Visit Hematology/Oncology at [address] [phone] Chase Mckay MD [facility] DR [place] [address] documented as of this encounter Visit Diagnoses Not on filedocumented in this encounter Care Teams Fuel Storage Technician Relationship Specialty Start Date End Date Tavia Ramirez [place] [place] [address] PCP - General Family Medicine 06/11/22 documented as of this encounter
--- OUTSIDE RECORDS SUMMARY | 2023-12-08 03:35 | XMS_ITS | Encounter Summary ---
[place] [address] Care Team Providers Care Injection Wax Molder Name Role Phone JamesTavia Cristian FRANCOIS Primary Care Provider [phone] Reason for Referral * Diagnostic Test (Routine) - Closed Specialty Diagnoses / Procedures Referred By Contac t Referred To Contact Radiology Diagnoses Metastatic urothelial carcinoma 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 Procedures NM PET CT Skull Base to Mid-thigh Jose Lange MD [facility] DR HEMATOLOGY [place] [address] [place] [address] Referral ID Status Reason Start Date Expiration Date V isits Requested Visits Authorized [id number] Closed Specialty Service Requested 01/28/2023 07/29/2024 1 2 Encounter Details Date Type Department Care Team (Late st Contact Info) Description 01/28/2023 9:30 AM EDT Office Visit Hematology/Oncology at [address] [phone] Jose Lange MD [facility] DR HEMATOLOGY [place] [address] Metastatic urothelial carcinoma (Primary Dx); [...] were not included. Hematology & Medical Oncology [address] [phone] Barb returns today to continue treatment for [...] distinct lung primary. She was seen by colorist formulator , who recommended rigid bronchoscopy withattempts to [...] History: No interval changes since last visit 95-etao-azbr smoking history quit 6 years ago, does [...] The assay was performed according to the assistant family teacher's instructions using Anti-PD-L1 (22C3, pharmDX) antibody. Electronically signed by: Herbert Ford MD Verified: 04/11/2021 8:14 Pathologist Performed at: -[facility] [place] [place], [place], [place] Surgical Pathology DIAGNOSIS A - Lung, left lower lobe mass, debulking: - Adenocarcinoma, consistent with lung primary. Electronically signed by: Sana Dowell MD Verified: 04/06/2021 11:16 Pathologist Performed at: -[facility] [place]. [place], [place], [place] DISCUSSION Sections show an invasive, predominantly [...] presumably metastatic urothelial carcinoma which include [place] based chemotherapy versus immunotherapy. Due to her [...] PET scan on 03/08/22 shows stable disease. Babr feels well. We will proceed with pembrolizumab [...] PM EDT Office Visit Hematology/Oncology at [address] [phone] Chase Mckay MD [facility] DR HEMATOLOGY [place] [address] documented as of this encounter Results * [...] who have questions please contact the health physician locums urgent care that requested your imaging first. ? Narrative 03/10/2023 2:59 PM EST EXAMINATION: NM PET CT STANDARD SKULL BASE TO MID-THIGH CLINICAL HISTORY: Urologic cancer, assess treatment response - Include more detail below Restaging of metastatic urothelial carcinoma and primary lung cancer TECHNIQUE: Following IV injection of 76-yparoz-6-deoxyglucose (FDG) a standard uptake of approximately 60 [...] lung cancer TECHNIQUE: Following IV injection of 90-mvwhhk-2-deoxyglucose (FDG) astandard uptake of approximately 60 minutes, [...] patients who have questions please contactthe health physician locums urgent care that requested your imaging first. Jose Lange [...] pleura documented in this encounter Care Teams Injection Wax Molder Relationship Specialty Start Date End Date Tavia Ramirez APRN [address] [place] [address] PCP - General Family Medicine 06/11/22 documented as of this encounter
--- OUTSIDE RECORDS SUMMARY | 2023-12-08 03:35 | XMS_ITS | Encounter Summary ---
Author Organization [facility] Address [facility] [place] [address] Care Team Providers Care Booking Police Officer Name Role Phone James Tavia Foster APRN Primary Care Provider [phone] Encounter Details Date Type Department Care Team [...] PM EDT Office Visit Hematology/Oncology at [address] [phone] Chase Mckay MD [facility] DR HEMATOLOGY [place] [address] documented as of this encounter Visit Diagnoses Not on filedocumented in this encounter Care Teams Booking Police Officer Relationship Specialty Start Date End Date Tavia Ramirez APR[place] [address] PCP - General Family Medicine 06/11/22 documented as of this encounter
--- OUTSIDE RECORDS SUMMARY | 2023-12-08 03:35 | XMS_ITS | Encounter Summary ---
Author Organization [facility] Address [facility] [place] [address] Care Team Providers Care Cream Ripener Name Role Phone James Tavia Foster APRN [...] Office Visit Hematology/Oncology at [address] [phone] Chase Mckay MD [facility] DR HEMATOLOGY [place] [address] documented as of this encounter Visit Diagnoses Not on filedocumented in this encounter Care Teams Cream Ripener Relationship Specialty Start Date End Date Tavia Ramirez [place] [place] [address] PCP - General Family Medicine 06/11/22 documented as of this encounter
--- OUTSIDE RECORDS SUMMARY | 2023-12-08 03:35 | XMS_ITS | Encounter Summary ---
Author Organization [facility] Address [facility] [place] [address] Care Team Providers Care Evaluation Advisor Name Role Phone James Tavia Foster APRN Primary Care Provider [phone] Encounter Details Date Type Department Care Team [...] PM EDT Office Visit Hematology/Oncology at [address] [phone] Chase Mckay MD [facility] DR HEMATOLOGY [place] [address] documented as of this encounter Visit Diagnoses Not on filedocumented in this encounter Care Teams Evaluation Advisor Relationship Specialty Start Date End Date Tavia Ramirez [place] [address] PCP - General Family Medicine 06/11/22 documented as of this encounter
--- OUTSIDE RECORDS SUMMARY | 2023-12-08 03:36 | XMS_ITS | Encounter Summary ---
Author Organization [facility] [place] [address] Care Team Providers Care Clipman Name Role Phone Tavia Ramirez APRN Primary Care Provider [phone] Reason for Visit * Reason Comments Chemotherapy [id number] * Treatment/Therapy Plan Authorization (Routine) - Closed Specialty Diagnoses / Procedures Referred By Contac t Referred To Contact Hematology and Oncology Diagnoses Metastatic urothelial carcinoma Abnormal thyroid function test Procedures [id number] Jose Barnhart MD [address] [place] [address] DR HEMAT[place]Y [place] [address] Jose Lange MD [address] [place] [address] DR HEMATOLOGY [place] [address] Referral ID Status Reason Start Date Expiration Date Visits Re quested Visits Authorized [id number] Closed 04/28/2022 06/24/2023 99 99 Encounter Details Date Type Department Care Team (Late st Contact Info) Description 07/23/2022 11:30 AM EDT Infusion Hematology Oncology at [address] [phone] Metastatic urothelial carcinoma Social History Tobacco Use [...] blood return. LAB DATA: Done today at [facility] for treatment. IV ACCESS: Port [...] PM EDT Office Visit Hematology/Oncology at [address] [phone] Chase Mckay MD [facility] DR [place] [address] documented as of this encounter Visit Diagnoses [...] (IV) Procedure: Accessing Implanted Vascular Access Devices (814) procedure and/or Intravenous (IV) Job Aid: Adult Flushing & Catheter Care (0076) job aid for additional information regarding guidelines and administration., Routine Given 07/23/2022 12:54 PM EDT 500 Units pembrolizumab (Keytruda) 200 mg in sodium chloride 0.9% 108 mL infusion 200 mg, Intravenous, ONCE, 1 dose, On e 07/23/22 at 1245, Administer over 30 Minutes, Flush [...] Job Aid: Adult Flushing & Catheter Care (8217) job aid for additional information regarding guidelines and administration., Routine Given 07/23/2022 12:53 PM EDT 20 mLs documented in this encounter Care Teams Clipman Relationship Specialty Start Date End Date Tavia Ramirez APRN [facility] [place] [address] PCP - General Family Medicine 06/11/22 documented as of this encounter
--- OUTSIDE RECORDS SUMMARY | 2023-12-08 03:36 | XMS_ITS | Encounter Summary ---
Author Organization [facility] Address [facility] [place] [address] Care Team Providers Care Veterinary Technician Assistant Name Role Phone Tavia Ramirez APRN Primary Care Provider [phone] Encounter Details Date Type Department Care Team (Late st Contact Info) Description 06/26/2022 Telephone Hematology/Oncology at [address] [phone] Maya Pinzon Social History Tobacco [...] PM EDT Office Visit Hematology/Oncology at [address] [phone] Chase Mckay MD [facility] DR [place] [address] documented as of this encounter Visit Diagnoses Not on filedocumented in this encounter Care Teams Veterinary Technician Assistant Relationship Specialty Start Date End Date Tavia Ramirez APRN [facility] [place] [address] PCP - General Family Medicine 06/11/22 documented as of this encounter
--- OUTSIDE RECORDS SUMMARY | 2023-12-08 03:36 | XMS_ITS | Encounter Summary ---
Author Organization [facility] Address [place] [address] Care Team Providers Care Playground Worker Name Role Phone Eren Shah DNP Primary Care Provider [phone] Encounter Details Date Type Department Care Team [...] PM EDT Office Visit Hematology/Oncology at [address] [phone] Chase Mckay MD [facility] DR [place] [address] documented as of this encounter Visit Diagnoses Not on filedocumented in this encounter Care Teams Playground Worker Relationship Specialty Start Date End Date Eren Shah DNP PCP - General Family Medicine 03/20/21 06/10/22 documented as of this encounter
--- OUTSIDE RECORDS SUMMARY | 2023-12-08 03:36 | XMS_ITS | Encounter Summary ---
Author Organization [facility] Address [facility] [place] [address] Care Team Providers Care Manual Winder Name Role Phone Eren Shah DNP Primary Care Provider [phone] Encounter Details Date Type Department Care Team [...] PM EDT Office Visit Hematology/Oncology at [address] [phone] Chase Mckay MD [facility] DR [place] [address] documented as of this encounter Visit Diagnoses Not on filedocumented in this encounter Care Teams Manual Winder Relationship Specialty Start Date End Date Eren Shah DNP PCP - General Family Medicine 03/20/21 06/10/22 documented as of this encounter
--- OUTSIDE RECORDS SUMMARY | 2023-12-08 03:36 | XMS_ITS | Encounter Summary ---
Author Organization [facility] Address [facility] [place] [address] Care Team Providers Care Knitted Garment Finisher Name Role Phone James Tavia Foster APRN Primary Care Provider [phone] Encounter Details Date Type Department Care Team [...] PM EDT Office Visit Hematology/Oncology at [address] [phone] Chase Mckay MD [facility] DR HEMATOLOGY [place] [address] documented as of this encounter Visit Diagnoses Not on filedocumented in this encounter Care Teams Knitted Garment Finisher Relationship Specialty Start Date End Date Tavia Ramirez APRN [place] [address] PCP - General Family Medicine 06/11/22 documented as of this encounter
--- OUTSIDE RECORDS SUMMARY | 2023-12-08 03:36 | XMS_ITS | Encounter Summary ---
Author Organization [facility] Address [facility] [place] [address] Care Team Providers Care Ball Mill Mixer Name Role Phone James Tavia Foster APRN Primary Care Provider [phone] Encounter Details Date Type Department Care Team (Late st Contact Info) Description 07/23/2022 11:00 AM EDT Office Visit Hematology/Oncology at [address] [phone] Abena Ogden RN Metastatic urothelial [...] were not included. Hematology & Medical Oncology [place] [phone] Barb returns today to continue treatment for [...] distinct lung primary. She was seen by production manufacturing worker , who recommended rigid bronchoscopy withattempts to [...] catheters 01/18/2022 UTI 09/14/2021 04/26/21-05/01/21 admission to [facility] with pneumonia, Pulmonary hypertension/CHF, BRITNI 04/16/2021 nephrostomy catheter exchange 04/04/21 bronchoscopy and tumor debulking- endobronchial biopsies positive for adenocarcinoma of lung origin Social History: No interval changes since last visit 88-botm-klym smoking history quit 6 years ago, does [...] The assay was performed according to the dermatologist managing partner's ??instructions using Anti-PD-L1 (22C3, pharmDX) antibody. Electronically signed by: ?Herbert Ford MD Verified: ??04/11/2021 8:14 ?? Pathologist Performed at: ??-[facility] Dept. of Pathology, [place], [place] ? Surgical Pathology DIAGNOSIS A - Lung, ??left lower lobe mass, debulking: ?? - Adenocarcinoma, consistent with lung primary. Electronically signed by: ?Sana Dowell MD Verified: ??04/06/2021 11:16 ??Pathologist Performed at: ??-[facility] Dept. of Pathology, [place], [place] DISCUSSION Sections show an invasive, predominantly [...] of presumably metastatic urothelial carcinoma which include [place] based chemotherapy versus immunotherapy. Due to her [...] PM EDT Office Visit Hematology/Oncology at [address] [phone] Chase Mckay MD [facility] [place] [address] documented as of this encounter Visit Diagnoses [...] pleura documented in this encounter Care Teams Ball Mill Mixer Relationship Specialty Start Date End Date Tavia Ramirez, PRINCIPAL SOFTWARE ENGINE[place] [place] [address] PCP - General Family Medicine 06/11/22 documented as of this encounter
--- OUTSIDE RECORDS SUMMARY | 2023-12-08 03:36 | XMS_ITS | Encounter Summary ---
[place] [address] Care Team Providers Care Lopper Name Role Phone James Tavia Foster APRN Primary Care Provider [phone] Reason for Referral * Diagnostic Test (Routine) - Closed Specialty Diagnoses / Procedures Referred By Contac t Referred To Contact Radiology Diagnoses Obstructive uropathy Metastatic urothelial carcinoma Procedures IR Nephrogram/Nephrostomy Tube Exchange Bilateral Robe Hope PA [facility] [place] [address] [facility] [place] [address] Referral ID Status Reason Start Date Expiration Date V isits Requested Visits Authorized [id number] Closed Specialty Service Requested 07/26/2022 01/26/2024 1 1 * Diagnostic Test (Routine) - Closed Specialty Diagnoses / Procedures Referred By Contac t Referred To Contact Radiology Diagnoses Obstructive uropathy Procedures IR Nephrogram/Nephrostomy Tube Exchange Bilateral Adeel Echeverria MD [facility] [place] [address] [facility] [place] [place] [address] Referral ID Status Reason Start Date Expiration Date V isits Requested Visits Authorized [id number] Closed Specialty Service Requested 04/24/2022 10/24/2023 1 1 Reason for Visit * Diagnostic Test (Routine) - Closed Specialty Diagnoses / Procedures Referred By Etta no Referred To Contact Radiology Diagnoses Obstructive uropathy Procedures IR Nephrogram/Nephrostomy Tube Exchange Bilateral Stoner, Adeel Guardado MD [facility] [place] [address] [facility] [place] [address] Referral ID Status Reason Start Date Expiration Date V isits Requested Visits Authorized [id number] Closed Specialty Service Requested 04/24/2022 10/24/2023 1 1 Encounter Details Date Type Department Care Team (Latest Contact Info) Description 07/26/2022 1:11 PM EDT - 07/26/2022 11:59 PM EDT Hospital [place] [address] Alin Dillard MD [facility] [place] [address] Obstructive uropathy; Metastatic urothelial carcinoma Discharge Disposition: [...] from the original note were not included. [facility] Vascular and Interventional Radiology Discharge Instructions for [...] from the drain. Put a registered public surveyor on both the drain and the bag. [...] is during regular office hours, please call [phone]. If it is after regular office hours, or on weekends or holidays, please call [phone] and ask to speak to the Paring Machine Operator refinery operator polymerization plant for Interventional Radiology. You have received medication [...] of : 1950 AGE: 72 y.o. Address: [address] [place] [phone] (home) Mobile: Telephone Information: Referring Provider: Adeel Echeverria REASON FOR VISIT: Order Questions Answers Where will study be performed? [facility] Radiology [120] Reason for exam and [...] PM EDT Office Visit Hematology/Oncology at [address] [phone] Chase Mckay MD [facility] DR HEMATOLOGY AND ONCOLOGY [facility] [address] documented as of this encounter Procedures Procedure [...] was administered. Initial nephrostogram was performed. A eMindfulson wire was advanced through the existing catheter [...] mLs documented in this encounter Care Teams Lopper Relationship Specialty Start Date End Date Tavia Ramirez APRN [address] [place] [address] PCP - General Family Medicine 06/11/22 documented as of this encounter
--- OUTSIDE RECORDS SUMMARY | 2023-12-08 03:36 | XMS_ITS | Encounter Summary ---
Author Organization [facility] Address [facility] [place] [address] Care Team Providers Care Home Energy Consultant Supervisor Name Role Phone Eren Shah DNP Primary Care Provider [phone] Encounter Details Date Type Department Care Team [...] PM EDT Office Visit Hematology/Oncology at [address] [phone] Chase Mckay MD [facility] [address] [place] [address] documented as of this encounter Visit Diagnoses Not on filedocumented in this encounter Care Teams Home Energy Consultant Supervisor Relationship Specialty Start Date End Date Eren Shah DNP PCP - General Family Medicine 03/20/21 06/10/22 documented as of this encounter
--- OUTSIDE RECORDS SUMMARY | 2023-12-08 03:36 | XMS_ITS | Encounter Summary ---
Author Organization [facility] Address [facility] [place] [address] Care Team Providers Care Territory Sales Manager Name Role Phone James Tavia Foster APRN Primary Care Provider [phone] Encounter Details Date Type Department Care Team [...] PM EDT Office Visit Hematology/Oncology at [address] [phone] Chase Mckay MD [facility] DR [place] [address] documented as of this encounter Visit Diagnoses Not on filedocumented in this encounter Care Teams Territory Sales Manager Relationship Specialty Start Date End Date Tavia Ramirez [place] [place] [address] PCP - General Family Medicine 06/11/22 documented as of this encounter
--- OUTSIDE RECORDS SUMMARY | 2023-12-08 03:36 | XMS_ITS | Encounter Summary ---
Author Organization [facility] Address [facility] [place] [address] Care Team Providers Care Seed Specialist Name Role Phone Eren Shah DNP Primary Care Provider [phone] Encounter Details Date Type Department Care Team [...] Office Visit Hematology/Oncology at [address] [address] Chase Mckay MD [facility] DR [place] [address] documented as of this encounter Visit Diagnoses Not on filedocumented in this encounter Care Teams Seed Specialist Relationship Specialty Start Date End Date Eren Shah DNP PCP - General Family Medicine 03/20/21 06/10/22 documented as of this encounter
--- OUTSIDE RECORDS SUMMARY | 2023-12-08 03:36 | XMS_ITS | Encounter Summary ---
Author Organization [facility] Address [facility] [place] [address] Care Team Providers Care Personnel Interviewer Name Role Phone James Tavia Foster APRN Primary Care Provider [phone] Encounter Details Date Type Department Care Team [...] PM EDT Office Visit Hematology/Oncology at [address] [phone] Chase Mckay MD [facility] DR HEMATOLOGY [place] [address] documented as of this encounter Visit Diagnoses Not on filedocumented in this encounter Care Teams Personnel Interviewer Relationship Specialty Start Date End Date Tavia Ramirez [place] [address] [place] [address] PCP - General Family Medicine 06/11/22 documented as of this encounter
--- OUTSIDE RECORDS SUMMARY | 2023-12-08 03:36 | XMS_ITS | Encounter Summary ---
Author Organization [facility] Address [facility] [place] [address] Care Team Providers Care Furnace Charging Machine Operator Name Role Phone Eren Shah DNP Primary Care Provider [phone] Encounter Details Date Type Department Care Team [...] PM EDT Office Visit Hematology/Oncology at [address] [address] Chase Mckay MD [facility] [address] [place] [address] documented as of this encounter Visit Diagnoses Not on filedocumented in this encounter Care Teams Furnace Charging Machine Operator Relationship Specialty Start Date End Date Eren Shah DNP PCP - General Family Medicine 03/20/21 06/10/22 documented as of this encounter
--- OUTSIDE RECORDS SUMMARY | 2023-12-08 03:36 | XMS_ITS | Encounter Summary ---
Author Organization [facility] Address [facility] [place] [address] Care Team Providers Care Professor Of Sport Management Name Role Phone Eren Shah DNP Primary Care Provider [phone] Encounter Details Date Type Department Care Team (Late st Contact Info) Description 04/08/2022 Orders Only Hematology/Oncology at [address] [phone] Abena Ogden RN Metastatic urothelial [...] PM EDT Office Visit Hematology/Oncology at [address] [address] Chase Mckay MD [facility] DR [place] [address] documented as of this encounter Visit Diagnoses [...] pleura documented in this encounter Care Teams Professor Of Sport Management Relationship Specialty Start Date End Date Eren Shah DNP PCP - General Family Medicine 03/20/21 06/10/22 documented as of this encounter
--- OUTSIDE RECORDS SUMMARY | 2023-12-08 03:36 | XMS_ITS | Encounter Summary ---
[place] [address] Care Team Providers Care Volunteer Recruiter Name Role Phone Tavia Ramirez APRN Primary Care Provider [phone] Reason for Referral * Diagnostic Test (Routine) - Closed Specialty Diagnoses / Procedures Referred By Contac t Referred To Contact Radiology Diagnoses Metastatic urothelial carcinoma Lung mass Procedures NM PET CT Skull Base to Mid-thigh Abena Ogden RN [address] [place] [address] [place] [address] [place] [address] Referral ID Status Reason Start Date Expiration Date V isits Requested Visits Authorized [id number] Closed Specialty Service Requested 05/14/2022 11/12/2023 1 1 Reason for Visit * Diagnostic Test (Routine) - Closed Specialty Diagnoses / Procedures Referred By Contac t Referred To Contact Radiology Diagnoses Metastatic urothelial carcinoma Lung mass Procedures NM PET CT Skull Base to Mid-thigh Abena Ogden RN [address] [place] [address] [place] [address] [place] [address] Referral ID Status Reason Start Date Expiration Date V isits Requested Visits Authorized [id number] Closed Specialty Service Requested 05/14/2022 11/12/2023 1 1 Encounter Details Date Type Department Care Team (Latest Contact Info) Description 06/11/2022 1:19 PM EST - 06/11/2022 11:59 PM EST Hospital Encounter [place] [phone] Abean Ogden, RN Metastatic urothelial carcinoma; Lung mass [...] PM EDT Office Visit Hematology/Oncology at [address] [phone] Chase Mckay MD [facility] [place] [address] documented as of this encounter Procedures Procedure [...] who have questions please contact the health direct care specialist that requested your imaging first. ? Electronically signed by: Billy Anderson MD, [facility] ([phone]), at 06/13/2022 3:02 PM Narrative 06/13/2022 3:02 PM EST EXAMINATION: NM PET CT STANDARD SKULL BASE TO MID-THIGH CLINICAL HISTORY: Urologic cancer, assess treatment response - Include more detail below; restaging metastatic bladder cancer restaging scan- on immunotherapy TECHNIQUE: Following IV injection of 77-hpghim-9-deoxyglucose (FDG) a standard uptake of approximately 60 [...] Intravenous, ONCE PRN, 1 dose, Starting on Fri06/11/22 at 1418, Until Fri06/11/22 at 1415, Per Protocol, Radiology Contrast, Routine Given 06/11/2022 2:15 PM EST 10.2 mCi Left Arm documented in this encounter Care Teams Volunteer Recruiter Relationship Specialty Start Date End Date Tavia Ramirez, LINK TRAINER MAINTENANCE MAN [address] [place] [address] PCP - General Family Medicine 06/11/22 documented as of this encounter
--- OUTSIDE RECORDS SUMMARY | 2023-12-08 03:36 | XMS_ITS | Encounter Summary ---
Author Organization [facility] Address [facility] [place] [address] Care Team Providers Care Sheep Killer Name Role Phone James Tavia Foster APRN Primary Care Provider [phone] Encounter Details Date Type Department Care Team [...] PM EDT Office Visit Hematology/Oncology at [address] [address] Chase Mckay MD [facility] DR HEMATOLOGY AND [place] [address] documented as of this encounter Visit Diagnoses Not on filedocumented in this encounter Care Teams Sheep Killer Relationship Specialty Start Date End Date Tavia Ramirez [place] [place] [address] PCP - General Family Medicine 06/11/22 documented as of this encounter
--- OUTSIDE RECORDS SUMMARY | 2023-12-08 03:36 | XMS_ITS | Encounter Summary ---
Author Organization [facility] Address [facility] [place] [address] Care Team Providers Care Global Marketing Manager Name Role Phone Tavia Ramirez APRN Primary Care Provider Encounter Details Date Type Department Care Team (Late st Contact Info) Description 06/25/2022 1:30 PM EST Office Visit Hematology/Oncology at [address] [address] Abena Ogden, RN Metastatic urothelial [...] this encounter Progress Notes * Abena Ogden, SERVICE ORDER DISPATCHER - 06/25/2022 1:30 PM EST Images from the original note were not included. Hematology & Medical Oncology [place] [id number] Barb returns today to continue treatment for [...] distinct lung primary. She was seen by finance specialist , who recommended rigid bronchoscopy withattempts [...] History: No interval changes since last visit 94-luee-eyer smoking history quit 6 years ago, does [...] The assay was performed according to the form tamper operator's ??instructions using Anti-PD-L1 (22C3, pharmDX) antibody. Electronically signed by: ?ZaHerbert gonzalez MD Verified: ??04/11/2021 8:14 ?? Pathologist Performed at: ??-[facility] Dept. of Pathology, [place], [place] ? Surgical Pathology DIAGNOSIS A - Lung, ??left lower lobe mass, debulking: ?? - Adenocarcinoma, consistent with lung primary. Electronically signed by: ?Sana Dowell MD Verified: ??04/06/2021 11:16 ??Pathologist Performed at: ??-[facility] Dept. of Pathology, [place], [place] DISCUSSION Sections show an invasive, predominantly [...] of presumably metastatic urothelial carcinoma which include [place] based chemotherapy versus immunotherapy. 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
--- OUTSIDE RECORDS SUMMARY | 2023-12-08 03:36 | XMS_ITS | Encounter Summary ---
[place] [address] Care Team Providers Care Stroke Coordinator Name Role Phone Tavia Ramirez ALESSANDRO Primary Care Provider [phone] Reason for Referral * Diagnostic Test (Routine) - Closed Specialty Diagnoses / Procedures Referred By Contac t Referred To Contact Radiology Diagnoses Metastatic urothelial carcinoma Primary lung adenocarcinoma, left Procedures NM PET CT Skull Base to Mid-thigh Jose Rhoades MD [facility] DR HEMATOLOGY [place] [address] [place] [address] Referral ID Status Reason Start Date Expiration Date V isits Requested Visits Authorized [id number] Closed Specialty Service Requested 08/13/2022 02/13/2024 1 1 * Consultation (Routine) - Closed Specialty Diagnoses / Procedures Referred By Contac t Referred To Contact Diagnoses Tongue lesion Metastatic urothelial carcinoma Primary lung adenocarcinoma, left Jose Rhoades MD [facility] HEMATOLOGY [place] [address] Referral ID Status Reason Start Date Expiration Date V isits Requested Visits Authorized [id number] Closed Consult, Test & Treat 08/13/2022 02/09/2023 1 1 Encounter Details Date Type Department Care Team (Late st Contact Info) Description 08/13/2022 1:30 PM EDT Office Visit Hematology/Oncology at [address] [phone] Jose Rhoades MD [facility] HEMATOLOGY [place] [address] Abena Ogden RN Tongue lesion (Primary Dx); [...] were not included. Hematology [place] [address] Barb returns today to continue treatment for [...] distinct lung primary. She was seen by planer mill grader , who recommended rigid bronchoscopy withattempts to [...] History: No interval changes since last visit 97-mojj-usne smoking history quit 6 years ago, does [...] The assay was performed according to the lift truck mechanic's ??instructions using Anti-PD-L1 (22C3, pharmDX) antibody. Electronically signed by: ?Herbert Ford MD Verified: ??04/11/2021 8:14 ?? Pathologist Performed at: ??-[facility] Dept. [place], [place], [place] ? Surgical Pathology DIAGNOSIS A - Lung, ??left lower lobe mass, debulking: ?? - Adenocarcinoma, consistent with lung primary. Electronically signed by: ?Sana Dowell MD Verified: ??04/06/2021 11:16 ??Pathologist Performed at: ??-[facility] Dept. of [place]ology, [address], [place], [place] DISCUSSION Sections show an invasive, predominantly [...] of presumably metastatic urothelial carcinoma which include [place] based chemotherapy versus immunotherapy. Due to her [...] PM EDT Office Visit Hematology/Oncology at [address] [phone] Chase Mckay MD [facility] HEMATOLOGY [place] [address] Scheduled Referrals Name Type Priority Associated Diagnoses [...] questions please contact the health patient care provider that requested your imaging first. ? Electronically signed by: Billy Anderson MD, [facility] ([phone]), at 10/11/2022 8:59 AM Narrative 10/11/2022 8:59 AM EDT EXAMINATION: NM PET CT STANDARD SKULL BASE TO MID-THIGH CLINICAL HISTORY: Urologic cancer, assess treatment response - Include more detail below Restaging of metastatic urothelial carcinoma TECHNIQUE: Following IV injection of 94-lopobm-7-deoxyglucose (FDG) a standard uptake of approximately 60 [...] urothelial carcinoma TECHNIQUE: Following IV injection of 46-ypwcgm-9-deoxyglucose (FDG) astandard uptake of approximately 60 minutes, [...] lymph nodes measure 11 and 12 mm (exakbz796 and 246). Mildly increased activity is noted [...] have questions please contactthe health patient care provider that requested your imaging first. Jose Rhoades MD IM PET ORDERABLES documented in this encounter Visit [...] pleura documented in this encounter Care Teams Stroke Coordinator Relationship Specialty Start Date End Date Tavia Ramirez [place] [address] [place] [address] PCP - General Family Medicine 06/11/22 documented as of this encounter
--- OUTSIDE RECORDS SUMMARY | 2023-12-08 03:36 | XMS_ITS | Encounter Summary ---
Author Organization [facility] Address [facility] [place] [address] Care Team Providers Care Wood Cabinetmaker Name Role Phone James Tavia Foster APRN Primary Care Provider [phone] Encounter Details Date Type Department Care Team [...] PM EDT Office Visit Hematology/Oncology at [address] [address] Chase Mckay MD [facility] DR [place] [address] documented as of this encounter Visit Diagnoses Not on filedocumented in this encounter Care Teams Wood Cabinetmaker Relationship Specialty Start Date End Date Tavia Ramirez [place] [address] [place] [address] PCP - General Family Medicine 06/11/22 documented as of this encounter
--- OUTSIDE RECORDS SUMMARY | 2023-12-08 03:36 | XMS_ITS | Encounter Summary ---
Author Organization [facility] Address [facility] [place] [address] Care Team Providers Care Leather Finisher Name Role Phone JamesTavia ALESSANDRO Primary Care Provider [phone] Encounter Details Date Type Department Care Team (Late st Contact Info) Description 09/03/2022 1:30 PM EDT Office Visit Hematology/Oncology at [address] [phone] Jose Lange MD [facility] DR HEMATOLOGY [place] [address] Abena Ogden, RN Metastatic urothelial carcinoma; Primary [...] this encounter Progress Notes * Abena Ogden, HYDROCHLORIC MANUFACTURING SUPERVISOR - 09/03/2022 1:30 PM EDT Images from the original note were not included. Hematology & Medical Oncology [address] [address] Barb returns today to continue [...] distinct lung primary. She was seen by skin care therapist , who recommended rigid bronchoscopy withattempts to [...] History: No interval changes since last visit 17-cwwa-amjd smoking history quit 6 years ago, does [...] The assay was performed according to the groover and turner's ??instructions using Anti-PD-L1 (22C3, pharmDX) antibody. Electronically signed by: ?Herbert Ford MD Verified: ??04/11/2021 8:14 ?? Pathologist Performed at: ??-[facility] Dept. of Pathology, [place], [place] ? Surgical Pathology DIAGNOSIS A - Lung, ??left lower lobe mass, debulking: ?? - Adenocarcinoma, consistent with lung primary. Electronically signed by: ?Sana Dowell MD Verified: ??04/06/2021 11:16 ??Pathologist Performed at: ??-[facility] Dept. of Pathology, [place], [place] DISCUSSION Sections show an invasive, predominantly [...] of presumably metastatic urothelial carcinoma which include [place] based chemotherapy versus immunotherapy. 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
--- OUTSIDE RECORDS SUMMARY | 2023-12-08 03:36 | XMS_ITS | Encounter Summary ---
Author Organization [facility] [place] [address] Care Team Providers Care Clinical Microbiologist Name Role Phone Eren Shah CHELSEA Primary Care Provider [phone] Reason for Visit * Reason Comments Chemotherapy [id number] * Treatment/Therapy Plan Authorization (Routine) - Closed Specialty Diagnoses / Procedures Referred By Contac t Referred To Contact Hematology and Oncology Diagnoses Metastatic urothelial carcinoma Abnormal thyroid function test Procedures [id number] Jose Barnhart MD [address] [place] [address] [place] [address] Jose Lange MD [address] [place] [address] [place] [address] Referral ID Status Reason Start Date Expiration Date Visits Re quested Visits Authorized [id number] Closed 04/28/2022 06/24/2023 99 99 Encounter Details Date Type Department Care Team (Late st Contact Info) Description 04/23/2022 10:30 AM EST Infusion Hematology Oncology at [address] [phone] Metastatic urothelial carcinoma Social History Tobacco Use [...] OBJECTIVE LAB DATA: Labs drawn today at [facility] and reviewed by this RN. No holds per treatment plan. IV ACCESS: Mediport accessed by [facility] Pre administration: Chemotherapy orders independently verified for [...] PM EDT Office Visit Hematology/Oncology at [address] [phone] Chase Mckay MD [facility] DR HEMATOLOGY [place] [address] documented as of this encounter Visit Diagnoses [...] (IV) Procedure: Accessing Implanted Vascular Access Devices (724) procedure and/or Intravenous (IV) Job Aid: Adult Flushing & Catheter Care (2218) job aid for additional information regarding guidelines [...] Intravenous, EVERY 1 MIN PRN, Starting on Fri04/23/22 at 1019, Until Tu 12/27/22 at 1526, Line Care, Flush pertains to all indwelling lines. Flush per protocol found in the job aid using the link provided on this medication record. Refer to Intravenous (IV) Job Aid: Adult Flushing & Catheter Care (0856) job aid for additional information regarding guidelines and administration., Routine Given 04/23/2022 12:44 PM EST 20 mLs sodium chloride 0.9% infusion 100 mL/hr, Intravenous, CONTINUOUS, Starting on Fri04/23/22 at 1045, Until Fri04/23/22 at 1526 New Bag 04/23/2022 10:30 AM EST 100 mL/hr 100 mL/hr documented in this encounter Care Teams Clinical Microbiologist Relationship Specialty Start Date End Date Eren Shah DNP PCP - General Family Medicine 03/20/21 06/10/22 documented as of this encounter
--- OUTSIDE RECORDS SUMMARY | 2023-12-08 03:36 | XMS_ITS | Encounter Summary ---
Author Organization [facility] Address [facility] [place] [address] Care Team Providers Care Lens Finisher Name Role Phone James Tavia Foster APRN Primary Care Provider [phone] Encounter Details Date Type Department Care Team [...] PM EDT Office Visit Hematology/Oncology at [address] [address] Chase Mckay MD [facility] [address] [place] [address] documented as of this encounter Visit Diagnoses Not on filedocumented in this encounter Care Teams Lens Finisher Relationship Specialty Start Date End Date Tavia Ramirez APRN [place] [address] PCP - General Family Medicine 06/11/22 documented as of this encounter
--- OUTSIDE RECORDS SUMMARY | 2023-12-08 03:36 | XMS_ITS | Encounter Summary ---
Author Organization [facility] Address [facility] [place] [address] Care Team Providers Care Laser Beam Trim Operator Name Role Phone Eren Shah DNP Primary Care Provider [phone] Encounter Details Date Type Department Care Team [...] PM EDT Office Visit Hematology/Oncology at [address] [address] Chase Mckay MD [facility] DR [place] [address] documented as of this encounter Visit Diagnoses Not on filedocumented in this encounter Care Teams Laser Beam Trim Operator Relationship Specialty Start Date End Date Eren Shah DNP PCP - General Family Medicine 03/20/21 06/10/22 documented as of this encounter
--- OUTSIDE RECORDS SUMMARY | 2023-12-08 03:36 | XMS_ITS | Encounter Summary ---
Author Organization [facility] Address [facility] [place] [address] Care Team Providers Care Pin Machine Operator Name Role Phone James Tavia Foster APRN Primary Care Provider [phone] Encounter Details Date Type Department Care Team [...] PM EDT Office Visit Hematology/Oncology at [address] [address] Chase Mckay MD [facility] DR HEMATOLOGY [place] [address] documented as of this encounter Visit Diagnoses Not on filedocumented in this encounter Care Teams Pin Machine Operator Relationship Specialty Start Date End Date Tavia Ramirez [place] [address] PCP - General Family Medicine 06/11/22 documented as of this encounter
--- OUTSIDE RECORDS SUMMARY | 2023-12-08 03:36 | XMS_ITS | Encounter Summary ---
Author Organization [facility] Address [facility] [place] [address] Care Team Providers Care Last Chalker Name Role Phone Eren Shah DNP Primary Care Provider [phone] Encounter Details Date Type Department Care Team (Late st Contact Info) Description 04/23/2022 10:00 AM EST Office Visit Hematology/Oncology at [address] [phone] Jose Lange MD [facility] DR HEMATOLOGY [place] [address] Abena Ogden, RN Metastatic urothelial carcinoma; Abnormal [...] were not included. Hematology & Medical Oncology [place] [phone] Barb returns today to continue treatment for [...] distinct lung primary. She was seen by oracle obiee developer , who recommended rigid bronchoscopy withattempts to [...] History: No interval changes since last visit 18-lpov-zugw smoking history quit 6 years ago, does [...] The assay was performed according to the instant printer operator's ??instructions using Anti-PD-L1 (22C3, pharmDX) antibody. Electronically signed by: ?Herbert Ford MD Verified: ??04/11/2021 8:14 ?? Pathologist Performed at: ??-[facility] [place], [place], [place] ? Surgical Pathology DIAGNOSIS A - Lung, ??left lower lobe mass, debulking: ?? - Adenocarcinoma, consistent with lung primary. Electronically signed by: ?Sana Dowell MD Verified: ??04/06/2021 11:16 ??Pathologist Performed at: ??-[facility] [place]. of [place], [place], [place] DISCUSSION Sections show an invasive, predominantly [...] of presumably metastatic urothelial carcinoma which include [place] based chemotherapy versus immunotherapy. Due to her [...] PM EDT Office Visit Hematology/Oncology at [address] [phone] Chase Mckay MD [facility] DR HEMATOLOGY [place] [address] documented as of this encounter Visit Diagnoses [...] pleura documented in this encounter Care Teams Last Chalker Relationship Specialty Start Date End Date Eren Shah DNP PCP - General Family Medicine 03/20/21 06/10/22 documented as of this encounter
--- OUTSIDE RECORDS SUMMARY | 2023-12-08 03:36 | XMS_ITS | Encounter Summary ---
Author Organization [facility] Address [place] [address] Care Team Providers Care Edge Dyer Name Role Phone James Tavia Foster APRN Primary Care Provider [phone] Encounter Details Date Type Department Care Team [...] PM EDT Office Visit Hematology/Oncology at [address] [phone] Chase Mckay MD [facility] DR [place] [address] documented as of this encounter Visit Diagnoses Not on filedocumented in this encounter Care Teams Edge Dyer Relationship Specialty Start Date End Date Tavia Ramirez [place] [place] [address] PCP - General Family Medicine 06/11/22 documented as of this encounter
--- OUTSIDE RECORDS SUMMARY | 2023-12-08 03:36 | XMS_ITS | Encounter Summary ---
Author Organization [facility] Address [facility] [place] [address] Care Team Providers Care Gas Specialist Name Role Phone James Tavia Foster APRN Primary Care Provider [phone] Encounter Details Date Type Department Care Team [...] PM EDT Office Visit Hematology/Oncology at [address] [phone] Chase Mckay MD [facility] DR HEMATOLOGY [place] [address] documented as of this encounter Visit Diagnoses Not on filedocumented in this encounter Care Teams Gas Specialist Relationship Specialty Start Date End Date Tavia Ramirez [place] [address] [place] [address] PCP - General Family Medicine 06/11/22 documented as of this encounter
--- OUTSIDE RECORDS SUMMARY | 2023-12-08 03:36 | XMS_ITS | Encounter Summary ---
Author Organization [facility] Address [facility] [place] [address] Care Team Providers Care Group Exercise Manager Name Role Phone Eren Shah DNP Primary Care Provider [phone] Encounter Details Date Type Department Care Team [...] PM EDT Office Visit Hematology/Oncology at [address] [phone] Chase Mckay MD [facility] DR HEMATOLOGY [place] [address] documented as of this encounter Visit Diagnoses Not on filedocumented in this encounter Care Teams Group Exercise Manager Relationship Specialty Start Date End Date Eren Shah DNP PCP - General Family Medicine 03/20/21 06/10/22 documented as of this encounter
--- OUTSIDE RECORDS SUMMARY | 2023-12-08 03:36 | XMS_ITS | Encounter Summary ---
Author Organization [facility] [place] [address] Care Team Providers Care Auto Roller Name Role Phone Eren Shah CHELSEA Primary Care Provider [phone] Reason for Visit * Reason Comments Chemotherapy Cycle 20, Day 1 * Treatment/Therapy Plan Authorization (Routine) - Closed Specialty Diagnoses / Procedures Referred By Contac t Referred To Contact Hematology and Oncology Diagnoses Metastatic urothelial carcinoma Abnormal thyroid function test Procedures [id number] Jose Barnhart MD [address] [place] [address] [place] [address] Jose Lange MD [address] [place] [address] [place] [address] Referral ID Status Reason Start Date Expiration Date Visits Re quested Visits Authorized [id number] Closed 04/28/2022 06/24/2023 99 99 Encounter Details Date Type Department Care Team (Late st Contact Info) Description 06/04/2022 10:00 AM EST Infusion Hematology Oncology at [address] [phone] Metastatic urothelial carcinoma Social History [...] complaints. OBJECTIVE: LAB DATA: Done today at [facility] and [facility] for treatment. IV ACCESS: Port accessed off [...] PM EDT Office Visit Hematology/Oncology at [address] [phone] Chase Mckay MD [facility] DR [place] [address] documented as of this encounter Visit Diagnoses [...] Job Aid: Adult Flushing & Catheter Care (6969) job aid for additional information regarding guidelines [...] Job Aid: Adult Flushing & Catheter Care (8904) job aid for additional information regarding guidelines and administration., Routine Given 06/04/2022 10:55 AM EST 20 mLs sodium chloride 0.9% infusion 100 mL/hr, Intravenous, CONTINUOUS, Starting on Fri06/04/22 at 1015, Until Fri06/04/22 at 1259 New Bag 06/04/2022 10:20 AM EST 100 mL/hr 100 mL/hr documented in this encounter Care Teams Auto Roller Relationship Specialty Start Date End Date Eren Shah DNP PCP - General Family Medicine 03/20/21 06/10/22 documented as of this encounter
--- OUTSIDE RECORDS SUMMARY | 2023-12-08 03:36 | XMS_ITS | Encounter Summary ---
Author Organization [facility] [place] [address] Care Team Providers Care Research Neuropsychologist Name Role Phone Eren Shah CHELSEA Primary Care Provider [phone] Reason for Visit * Reason Comments Chemotherapy C17D1 pembrolizumab * Treatment/Therapy Plan Authorization (Routine) - Closed Specialty Diagnoses / Procedures Referred By Contac t Referred To Contact Hematology and Oncology Diagnoses Metastatic urothelial carcinoma Abnormal thyroid function test Procedures [id number] Jose Barnhart MD [address] [place] [address] DR [place] [address] Jose Lange MD [address] [place] [address] DR [place] [address] Referral ID Status Reason Start Date Expiration Date Visits Re quested Visits Authorized [id number] Closed 04/28/2022 06/24/2023 99 99 Encounter Details Date Type Department Care Team (Late st Contact Info) Description 04/02/2022 11:00 AM EST Infusion Hematology Oncology at [address] [phone] Metastatic urothelial carcinoma Social History [...] OBJECTIVE LAB DATA: Labs drawn today at [facility] and reviewed by this RN. No holds per treatment plan. IV ACCESS: Mediport accessed by [facility] Pre administration: Chemotherapy orders independently verified for [...] PM EDT Office Visit Hematology/Oncology at [address] [phone] Chase Mckay MD [facility] DR [place] [address] documented as of this encounter Visit Diagnoses [...] (IV) Procedure: Accessing Implanted Vascular Access Devices (314) procedure and/or Intravenous (IV) Job Aid: Adult Flushing & Catheter Care (0558) job aid for additional information regarding guidelines and administration., Routine Given 04/02/2022 12:13 PM EST 500 Units pembrolizumab (Keytruda) 200 mg in sodium chloride 0.9% 108 mL infusion 200 mg, Intravenous, ONCE, 1 dose, On Fri04/02/22 at 1215, Administer over 30 Minutes, Flush line with NS after each dose., This agent is restricted to outpatient use. Is this drug being given as an outpatient? Yes New Bag 04/02/2022 11:37 AM EST 200 mg 216 mL/hr sodium chloride 0.9 % (flush) (BD PosiFlush Normal Saline 0.9) flush 5-20 mL 5-20 mL, Intravenous, EVERY 1 MIN PRN, Starting on Fri04/02/22 at 1058, Until Fri04/02/22 at 1429, Line Care, Flush pertains to all indwelling lines. Flush per protocol found in the job aid using the link provided on this medication record. Refer to Intravenous (IV) Job Aid: Adult Flushing & Catheter Care (2889) job aid for additional information regarding guidelines and administration., Routine Given 04/02/2022 12:13 PM EST 20 mLs sodium chloride 0.9% infusion 100 mL/hr, Intravenous, CONTINUOUS, Starting on Fri04/02/22 at 1115, Until Fri04/02/22 at 1429 New Bag 04/02/2022 11:11 AM EST 100 mL/hr 100 mL/hr documented in this encounter Care Teams Research Neuropsychologist Relationship Specialty Start Date End Date Eren Shah DNP PCP - General Family Medicine 03/20/21 06/10/22 documented as of this encounter
--- OUTSIDE RECORDS SUMMARY | 2023-12-08 03:36 | XMS_ITS | Encounter Summary ---
Author Organization [facility] [place] [address] Care Team Providers Care Ice Cream Truck Driver Name Role Phone Tavia Ramirez APRN Primary Care Provider Reason for Visit * Reason Comments Chemotherapy [id number] * Treatment/Therapy Plan Authorization (Routine) - Closed Specialty Diagnoses / Procedures Referred By Contac t Referred To Contact Hematology and Oncology Diagnoses Metastatic urothelial carcinoma Abnormal thyroid function test Procedures [id number] oJse Barnhart MD [address] [place] [address] DR [place] [address] Jose Lange MD [address] [place] [address] DR [place]EM[place] [address] Referral ID Status Reason Start Date Expiration Date Visits Re quested Visits Authorized [id number] Closed 04/28/2022 06/24/2023 99 99 Encounter Details Date Type Department Care Team (Late st Contact Info) Description 07/02/2022 1:00 PM EST Infusion Hematology Oncology at [address] [phone] Metastatic urothelial carcinoma Social History Tobacco Use [...] VISIT: Pembrolizumab SUBJECTIVE: Barb offers no complaints. [facility] unable to obtain blood return from mediport after accessing. Obtained labs PIV. OBJECTIVE: Unable to obtain blood return upon arrival to infusion room. Cathflo instilled and after 1 hour, able to obtain brisk blood return. LAB DATA: Done today at [facility] and [facility] for treatment. IV ACCESS: Port [...] PM EDT Office Visit Hematology/Oncology at [address] [phone] Chase Mckay MD [facility] DR [place] [address] documented as of this encounter Visit Diagnoses [...] Job Aid: Adult Flushing & Catheter Care (8185) job aid for additional information regarding guidelines [...] Job Aid: Adult Flushing & Catheter Care (3271) job aid for additional information regarding guidelines and administration., Routine Given 07/02/2022 2:40 PM EST 20 mLs documented in this encounter Care Teams Ice Cream Truck Driver Relationship Specialty Start Date End Date Tavia Ramirez APRN [facility] [place] [address] PCP - General Family Medicine 06/11/22 documented as of this encounter
--- OUTSIDE RECORDS SUMMARY | 2023-12-08 03:36 | XMS_ITS | Encounter Summary ---
Author Organization [facility] Address [facility] [place] [address] Care Team Providers Care Network Operations Analyst Name Role Phone Eren Shah DNP Primary Care Provider [phone] Encounter Details Date Type Department Care Team [...] PM EDT Office Visit Hematology/Oncology at [address] [phone] Chase Mckay MD [facility] DR [place] [address] documented as of this encounter Visit Diagnoses Not on filedocumented in this encounter Care Teams Network Operations Analyst Relationship Specialty Start Date End Date Eren Shah DNP PCP - General Family Medicine 03/20/21 06/10/22 documented as of this encounter
--- OUTSIDE RECORDS SUMMARY | 2023-12-08 03:36 | XMS_ITS | Encounter Summary ---
Author Organization [facility] [place] [address] Care Team Providers Care Chalker Soles Name Role Phone Eren Shah CHELSEA Primary Care Provider [phone] Reason for Visit * Reason Comments Chemotherapy Cycle 19, Day 1 - Pe mbrolizumab * Treatment/Therapy Plan Authorization (Routine) - Closed Specialty Diagnoses / Procedures Referred By Contac t Referred To Contact Hematology and Oncology Diagnoses Metastatic urothelial carcinoma Abnormal thyroid function test Procedures [id number] Jose Barnhart MD [address] [place] [address] DR HEMATOLOGY [place] [address] Jose Lange MD [address] [place] [address] DR HEMATOLOGY [place] [address] Referral ID Status Reason Start Date Expiration Date Visits Re quested Visits Authorized [id number] Closed 04/28/2022 06/24/2023 99 99 Encounter Details Date Type Department Care Team (Late st Contact Info) Description 05/14/2022 2:00 PM EST Infusion Hematology Oncology at [address] [phone] Metastatic urothelial carcinoma Social History [...] PM EDT Office Visit Hematology/Oncology at [address] [phone] Chase Mckay MD [facility] [place] [address] documented as of this encounter Visit Diagnoses [...] Job Aid: Adult Flushing & Catheter Care (3256) job aid for additional information regarding guidelines [...] Job Aid: Adult Flushing & Catheter Care (9865) job aid for additional information regarding guidelines and administration., Routine Given 05/14/2022 3:16 PM EST 20 mLs sodium chloride 0.9% infusion 100 mL/hr, Intravenous, CONTINUOUS, Starting on Fri05/14/22 at 1430, Until Fri05/14/22 at 1738 New Bag 05/14/2022 2:18 PM EST 100 mL/hr 100 mL/hr documented in this encounter Care Teams Chalker Soles Relationship Specialty Start Date End Date Eren Shah DNP PCP - General Family Medicine 03/20/21 06/10/22 documented as of this encounter
--- OUTSIDE RECORDS SUMMARY | 2023-12-08 03:36 | XMS_ITS | Encounter Summary ---
Author Organization [facility] [place] [address] Care Team Providers Care Drawing Box Tender Name Role Phone Eren Shah CHELSEA Primary Care Provider [phone] Reason for Referral * Diagnostic Test (Routine) - Closed Specialty Diagnoses / Procedures Referred By Contac t Referred To Contact Radiology Diagnoses Obstructive uropathy Procedures IR Nephrogram/Nephrostomy Tube Exchange Bilateral Adeel Echeverria MD [facility] [place] [address] [facility] [place] [address] Referral ID Status Reason Start Date Expiration Date V isits Requested Visits Authorized [id number] Closed Specialty Service Requested 04/24/2022 10/24/2023 1 1 Reason for Visit * Diagnostic Test (Routine) - Closed Specialty Diagnoses / Procedures Referred By Contac t Referred To Contact Radiology Diagnoses Metastatic urothelial carcinoma Procedures IR Nephrogram/Nephrostomy Tube Exchange Bilateral IR Nephroureteral (NU) Stent Placement Check/Change Deandre Juares MD [facility] [place] [place] [address] [facility] [place] [address] Referral ID Status Reason Start Date Expiration Date V isits Requested Visits Authorized [id number] Closed Specialty Service Requested 01/18/2022 07/19/2023 1 1 Encounter Details Date Type Department Care Team (Latest Contact Info) Description 04/24/2022 1:06 PM EST - 04/24/2022 11:59 PM EST Hospital Encounter Radiology at [facility] [place] [address] Guillermo Nice MD [facility] [place] [address] Metastatic urothelial carcinoma; Obstructive uropathy Discharge Disposition: [...] through Care Everywhere. * Nephrostomy Tube Care (Prydeinig) documented in this encounter Medications at Time [...] of : 1950 AGE: 71 y.o. Address: [address] [place] [phone] (home) Mobile: Telephone Information: Referring Provider: Deandre Juares REASON FOR VISIT: Order Questions Answers Where will study be performed? [facility] Radiology [120] Reason for exam [...] on 01/18. Bilateral NUs were convertedto 10 Croatian nephrostomy catheters at that time due to [...] Placement 04/02/2021 Yuval Sinclair PA [facility] INTERVENTIONL RAD ??? IR NEPHROSTOMY TUBE PLACEMENT PERCUTANEOUS BILATERAL 02/20/2021 IR Nephrostomy Tube Placement Percutaneous Bilateral [facility] INTERVENTIONL RAD ??? IR NEPHROURETERAL (NU) STENT PLACEMENT/CHECK/CHANGE 07/13/2021 IR Nephroureteral (NU) Stent Placement Check/Change 07/13/2021 Alexis De La Cruz MD [facility] INTERVENTIONLRAD ??? IR NEPHROURETERAL (NU) STENT PLACEMENT/CHECK/CHANGE 10/23/2021 IR Nephroureteral (NU) Stent Placement Check/Change 10/23/2021 Zeferino Rosado MD [facility] INTERVENTIONL RAD ??? IR NEPHROURETERAL (NU) STENT PLACEMENT/CHECK/CHANGE 01/18/2022 IR Nephroureteral (NU) Stent Placement Check/Change 01/18/2022 Guillermo Nice MD [facility] INTERVENTIONLRAD ? ? PRO [facility] EBUS GUIDED SAMPL 3/> NODE STATION/STRUX N/A 04/04/2021 BRONCH, W ENDOBRONCHIAL ULTRASOUND (EBUS) GUIDED SAMPLING, 3+ NODES (WRVU 5.21) performed by Alonzo Cevallos MD at [facility] MAIN OR ??? PRO BRONCHOSCOPY, DIAGNOSTIC W LAVAGE N/A 04/04/2021 BRONCHOSCOPY, RIGID OR FLEXIBLE, WITH BRONCHIAL ALVEOLAR LAVAGE (WRVU 2.88) performed by Alonzo Cevallos MD at [facility] MAIN OR Medications: Current Outpatient [...] PM EDT Office Visit Hematology/Oncology at [address] [phone] Chase Mckay MD [facility] [place] [address] documented as of this encounter Procedures Procedure [...] was administered. Initial nephrostogram was performed. A Ampulse wire was advanced through the existing catheter [...] change. Postoperative Diagnosis: ?? Same Procedure Performed: Xisb-jbt-askw exchange of bilateral nephrostomy tubes using fluoroscopic guidance. Estimated Blood Loss: None Fluoroscopy time: Please see [facility] IR technologist record for procedural dose/time Cefazolin/ [...] wires simultaneously, and replaced with ??new 10 Croatian pigtail drains which were positioned within the right and left renal pelvis. A spot fluoroscopic image demonstrates the new nephrostomy tubes to be in good position. The patient tolerated the procedure well. Impression: Uneventful mbbt-cos-bonz exchange of bilateral nephrostomy tubes. I was the attending physician supervising the resident in the above care and I was present with the resident for the entire procedure. Guillermo Nice MD [facility] IR ORDERABLES documented in [...] mLs documented in this encounter Care Teams Drawing Box Tender Relationship Specialty Start Date End Date Eren Shah DNP PCP - General Family Medicine 03/20/21 06/10/22 documented as of this encounter
--- OUTSIDE RECORDS SUMMARY | 2023-12-08 03:36 | XMS_ITS | Encounter Summary ---
Author Organization [facility] [place] [address] Care Team Providers Care Safe Expert Name Role Phone Tvaia Ramirez SEW OUT OPERATOR Primary Care Provider [phone] Encounter Details Date Type Department Care Team (Late st Contact Info) Description 06/14/2022 [place] [phone] Yonathan Atkinson MD [facility] [place] [address] Social History Tobacco Use Types Packs/Day Years [...] 02/20/2021, but were converted to bilateral 10 armenian nephrostomy catheter on 01/18/22. Last seen by [...] Sinclair PA [facility] INTERVENTIONL RAD ??? IR NEPHROSTOMY TUBE EXCHANGE BILATERAL 04/24/2022 IR Nephrogram/Nephrostomy Tube Exchange Bilateral 04/24/2022 Alin Dillard MD [facility] INTERVENTIONL RAD ??? IR NEPHROSTOMY TUBE PLACEMENT PERCUTANEOUS BILATERAL 02/20/2021 IR Nephrostomy Tube Placement Percutaneous Bilateral [facility] INTERVENTIONL RAD ??? IR NEPHROURETERAL (NU) STENT PLACEMENT/CHECK/CHANGE 07/13/2021 IR Nephroureteral (NU) Stent Placement Check/Change 07/13/2021 Alexis De La Cruz MD [facility] INTERVENTIONLRAD ??? IR NEPHROURETERAL (NU) STENT PLACEMENT/CHECK/CHANGE 10/23/2021 IR Nephroureteral (NU) Stent Placement Check/Change 10/23/2021 Zeferino Rosado MD [facility] INTERVENTIONL RAD ??? IR NEPHROURETERAL (NU) STENT PLACEMENT/CHECK/CHANGE 01/18/2022 IR Nephroureteral (NU) Stent Placement Check/Change 01/18/2022 Guillermo Nice MD [facility] INTERVENTIONLRAD ? ? PRO [facility] EBUS GUIDED SAMPL 3/> NODE STATION/STRUX N/A 04/04/2021 BRONCH, W ENDOBRONCHIAL ULTRASOUND (EBUS) GUIDED SAMPLING, 3+ NODES (WRVU 5.21) performed by Alonzo Cevallos MD at [facility] MAIN OR ??? PRO BRONCHOSCOPY, DIAGNOSTIC [...] PM EDT Office Visit Hematology/Oncology at [address] [phone] Chase Mkcay MD [facility] DR HEMATOLOGY AND ONCOLOGY [place], [place] [phone] documented as of this encounter Visit Diagnoses Not on filedocumented in this encounter Care Teams Safe Expert Relationship Specialty Start Date End Date Tavia Ramirez APRN [place] [address] PCP - General Family Medicine 06/11/22 documented as of this encounter
--- OUTSIDE RECORDS SUMMARY | 2023-12-08 03:36 | XMS_ITS | Encounter Summary ---
[place] [address] Care Team Providers Care Ear Machine Operator Name Role Phone Eren Shah DNP Primary Care Provider [phone] Reason for Referral * Diagnostic Test (Routine) - Closed Specialty Diagnoses / Procedures Referred By Contac t Referred To Contact Radiology Diagnoses Metastatic urothelial carcinoma Lung mass Procedures NM PET CT Skull Base to Mid-thigh Abena Ogden RN [address] [place] [address] [place] [address] [place] [address] Referral ID Status Reason Start Date Expiration Date V isits Requested Visits Authorized [id number] Closed Specialty Service Requested 05/14/2022 11/12/2023 1 1 Encounter Details Date Type Department Care Team (Late st Contact Info) Description 05/14/2022 1:30 PM EST Office Visit Hematology/Oncology at [address] [phone] Jose Lange MD [facility] DR HEMATOLOGY AND ONCOLOGY [place], [place] [phone] Abena Ogden RN Metastatic urothelial carcinoma; Lung [...] this encounter Progress Notes * Abena Ogden, MARINE OILER - 05/14/2022 1:30 PM EST Images from the original note were not included. Hematology & Medical Oncology [address] [address] Barb returns today to continue treatment for [...] distinct lung primary. 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 Electronically signed by: ?Herbert Ford MD Verified: ??04/11/2021 8:14 ?? Pathologist Performed at: ??[facility] [place], [place], [place] ? Surgical Pathology DIAGNOSIS A - Lung, ??left lower lobe mass, debulking: ?? - Adenocarcinoma, consistent with lung primary. Electronically signed by: ?Sana Dowell MD Verified: ??04/06/2021 11:16 ??Pathologist Performed at: ??-[facility] [place] [place], [place], [place] DISCUSSION Sections show an invasive, predominantly [...] PM EDT Office Visit Hematology/Oncology at [address] [phone] Chase Mckay MD [facility] DR HEMATOLOGY [place] [address] documented as of this encounter Results * [...] who have questions please contact the health rn managed care that requested your imaging first. ? Narrative 06/13/2022 3:02 PM EST EXAMINATION: NM PET CT STANDARD SKULL BASE TO MID-THIGH CLINICAL HISTORY: Urologic cancer, assess treatment response - Include more detail below; restaging metastatic bladder cancer restaging scan- on immunotherapy TECHNIQUE: Following IV injection of 27-gqjtzi-7-deoxyglucose (FDG) a standard uptake of approximately 60 [...] pleura documented in this encounter Care Teams Ear Machine Operator Relationship Specialty Start Date End Date Eren Shah DNP PCP - General Family Medicine 03/20/21 06/10/22 documented as of this encounter
--- OUTSIDE RECORDS SUMMARY | 2023-12-08 03:36 | XMS_ITS | Encounter Summary ---
[place] [address] Care Team Providers Care Special Loan Officer Name Role Phone Tavia Ramirez APRN Primary Care Provider [phone] Reason for Visit * Diagnostic Test (Routine) - Closed Specialty Diagnoses / Procedures Referred By Contjoslyn t Referred To Contact Radiology Diagnoses Metastatic urothelial carcinoma Lung mass Procedures NM PET CT Skull Base to Mid-thigh Abena Ogden, RN [address] [place] [address] [place] [address] [place] [address] Referral ID Status Reason Start Date Expiration Date V isits Requested Visits Authorized [id number] Closed Specialty Service Requested 05/14/2022 11/12/2023 1 1 Encounter Details Date Type Department Care Team (Latest Contact Info) Description 06/11/2022 1:19 PM EST - 06/11/2022 11:59 PM [facility] Hospital Encounter [place] [address] Abena Ogden cpo Disposition: Home Social History Tobacco Use Types [...] PM EDT Office Visit Hematology/Oncology at [address] [phone] Chase Mckay MD [facility] DR [place] [address] documented as of this encounter Procedures Procedure Name Priority Date/Time Associated Diagnosis Comments NM PET CT SKULL BASE TO MID-THIGH ([facility]) Routine 06/11/2022 3:25 PM EST Metastatic urothelial carcinoma Lung mass POCT GLUCOSE Routine 06/11/2022 2:07 PM EST documented in this encounter Results * POCT Glucose (06/11/2022 2:07 PM EST) Glucose, POC 92 65 - 199 mg/dL [facility] Comment: Supplemental ranges: <140 mg/dL before meals <180 mg/dL all other times of the day Blood 06/11/2022 2:07 PM EST 06/11/2022 2:07 PM EST Abena Ogden RN POINT OF CARE TEST O RDERABLES [facility] [place] [address] documented in this encounter Visit Diagnoses Not on filedocumented in this encounter Care Teams Special Loan Officer Relationship Specialty Start Date End Date Tavia Ramirez [place] [address] [place] [address] PCP - General Family Medicine 06/11/22 documented as of this encounter
--- OUTSIDE RECORDS SUMMARY | 2023-12-08 03:36 | XMS_ITS | Encounter Summary ---
Author Organization [facility] [place] [address] Care Team Providers Care Diamond Driller Helper Name Role Phone Tavia Ramirez APRN Primary Care Provider [phone] Reason for Visit * Reason Comments Chemotherapy Cycle 23, Day 1; Pem bro * Treatment/Therapy Plan Authorization (Routine) - Closed Specialty Diagnoses / Procedures Referred By Contac t Referred To Contact Hematology and Oncology Diagnoses Metastatic urothelial carcinoma Abnormal thyroid function test Procedures [id number] Jose Barnhart MD [address] [place] [address] [place] [address] Jose Lange MD [address] [place] [address] [place] [address] Referral ID Status Reason Start Date Expiration Date Visits Re quested Visits Authorized [id number] Closed 04/28/2022 06/24/2023 99 99 Encounter Details Date Type Department Care Team (Late st Contact Info) Description 08/13/2022 2:00 PM EDT Infusion Hematology Oncology at [address] [phone] Metastatic urothelial carcinoma Social History Tobacco Use [...] blood return. LAB DATA: Done today at [facility] for treatment. IV ACCESS: Port accessed [...] PM EDT Office Visit Hematology/Oncology at [address] [phone] Chase Mckay MD [facility] DR HEMATOLOGY [place] [address] documented as of this encounter Visit Diagnoses [...] (IV) Procedure: Accessing Implanted Vascular Access Devices (213) procedure and/or Intravenous (IV) Job Aid: Adult Flushing & Catheter Care (0626) job aid for additional information regarding guidelines [...] Job Aid: Adult Flushing & Catheter Care (6825) job aid for additional information regarding guidelines and administration., Routine Given 08/13/2022 3:33 PM EDT 20 mLs documented in this encounter Care Teams Diamond Driller Helper Relationship Specialty Start Date End Date Tavia Ramirez, SENIOR INFORMATICA ETL DEVELOPER [place] [address] [place] [address] PCP - General Family Medicine 06/11/22 documented as of this encounter
--- OUTSIDE RECORDS SUMMARY | 2023-12-08 03:36 | XMS_ITS | Encounter Summary ---
Author Organization [facility] Address [facility] [place] [address] Care Team Providers Care Java Grails Developer Name Role Phone Eren Shah DNP Primary Care Provider [phone] Encounter Details Date Type Department Care Team [...] PM EDT Office Visit Hematology/Oncology at [address] [phone] Chase Mckay MD [facility] DR HEMATOLOGY [place] [address] documented as of this encounter Visit Diagnoses Not on filedocumented in this encounter Care Teams Java Grails Developer Relationship Specialty Start Date End Date Eren Shah DNP PCP - General Family Medicine 03/20/21 06/10/22 documented as of this encounter
--- OUTSIDE RECORDS SUMMARY | 2023-12-08 03:36 | XMS_ITS | Encounter Summary ---
Author Organization [facility] Address [facility] [place] [address] Care Team Providers Care Fruit Canner Name Role Phone Tavia Ramirez APRN Primary Care Provider [phone] Reason for Visit * Reason Comments IV Access Mediport flush only Encounter Details Date Type Department Care Team (Late st Contact Info) Description 06/25/2022 2:00 PM EST Infusion Hematology Oncology at [address] [phone] Metastatic urothelial carcinoma Social History [...] PM EDT Office Visit Hematology/Oncology at [address] [phone] Chase Mckay MD [facility] DR [place] [address] documented as of this encounter Visit Diagnoses Diagnosis Metastatic urothelial carcinoma Secondary malignant neoplasm of other urinary organs 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 Malignant neoplasm of lower lobe, bronchus, or lung Metastatic urothelial carcinoma 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
--- OUTSIDE RECORDS SUMMARY | 2023-12-08 03:36 | XMS_ITS | Encounter Summary ---
Author Organization [facility] Address [facility] [place] [address] Care Team Providers Care Net Software Architect Name Role Phone James Tavia Foster APRN Primary Care Provider [phone] Encounter Details Date Type Department Care Team (Late st Contact Info) Description 06/20/2022 Orders Only Hematology/Oncology at [address] [phone] Abena Ogden, RN Social History [...] PM EDT Office Visit Hematology/Oncology at [address] [phone] Chase Mckay MD [facility] DR [place] [address] documented as of this encounter Visit Diagnoses Not on filedocumented in this encounter Care Teams Net Software Architect Relationship Specialty Start Date End Date Tavia Ramirez [place] [address] [place] [address] PCP - General Family Medicine 06/11/22 documented as of this encounter
--- OUTSIDE RECORDS SUMMARY | 2023-12-08 03:36 | XMS_ITS | Encounter Summary ---
Author Organization [facility] Address [facility] [place] [address] Care Team Providers Care Supply Teacher Name Role Phone Eren Shah DNP Primary Care Provider [phone] Encounter Details Date Type Department Care Team (Late st Contact Info) Description 04/02/2022 Orders Only Hematology/Oncology at [address] [phone] Abena Ogden RN Metastatic urothelial [...] PM EDT Office Visit Hematology/Oncology at [address] [phone] Chase Mckay MD [facility] DR [place] [address] documented as of this encounter Visit Diagnoses Diagnosis Metastatic urothelial carcinoma 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
--- OUTSIDE RECORDS SUMMARY | 2023-12-08 03:37 | XMS_ITS | Encounter Summary ---
Author Organization [facility] [place] [address] Care Team Providers Care Manager Food Beverage Name Role Phone Eren Shah CHELSEA Primary Care Provider [phone] Reason for Visit * Reason Comments Chemotherapy Cycle 13, Day 1 Pemb ro * Treatment/Therapy Plan Authorization (Routine) - Closed Specialty Diagnoses / Procedures Referred By Contac t Referred To Contact Hematology and Oncology Diagnoses Metastatic urothelial carcinoma Abnormal thyroid function test Procedures [id number] Jose Barnhart MD [address] [place] [address] [place] [address] Jose Lange MD [address] [place] [address] [place] [address] Referral ID Status Reason Start Date Expiration Date Visits Re quested Visits Authorized [id number] Closed 04/28/2022 06/24/2023 99 99 Encounter Details Date Type Department Care Team (Late st Contact Info) Description 01/01/2022 10:30 AM EDT Infusion Hematology Oncology at [address] [phone] Metastatic urothelial carcinoma; Abnormal thyroid [...] LAB DATA: Labs drawn today at [facility] and reviewed by this RN. No holds per treatment plan. IV ACCESS: Mediport accessed by [facility], flushed easily with blood return at [facility]. Pt reports it was has been [...] PM EDT Office Visit Hematology/Oncology at [address] [phone] Chase Mckay MD [facility] DR [place] [address] documented as of this encounter Visit Diagnoses [...] (IV) Procedure: Accessing Implanted Vascular Access Devices (674) procedure and/or Intravenous (IV) Job Aid: Adult Flushing & Catheter Care (8161) job aid for additional information regarding guidelines [...] Job Aid: Adult Flushing & Catheter Care (2545) job aid for additional information regarding guidelines and administration., Routine Given 01/01/2022 11:41 AM EDT 20 mLs sodium chloride 0.9% infusion 100 mL/hr, Intravenous, CONTINUOUS, Starting on Fri01/01/22 at 1100, Until Fri01/01/22 at 1355 New Bag 01/01/2022 10:47 AM EDT 100 mL/hr 100 mL/hr documented in this encounter Care Teams Manager Food Beverage Relationship Specialty Start Date End Date Eren Shah DNP PCP - General Family Medicine 03/20/21 06/10/22 documented as of this encounter
--- OUTSIDE RECORDS SUMMARY | 2023-12-08 03:37 | XMS_ITS | Encounter Summary ---
Author Organization [facility] [place] [address] Care Team Providers Care Microsoft Crm Developer Name Role Phone Eren Shah CHELSEA Primary Care Provider [phone] Reason for Visit * Reason Comments Chemotherapy Cycle 11, Day 1 * Treatment/Therapy Plan Authorization (Routine) - Closed Specialty Diagnoses / Procedures Referred By Contac t Referred To Contact Hematology and Oncology Diagnoses Metastatic urothelial carcinoma Abnormal thyroid function test Procedures [id number] Jose Barnhart MD [address] [place] [address] DR [place] [address] Jose Lange MD [address] [place] [address] DR [place] [address] Referral ID Status Reason Start Date Expiration Date Visits Re quested Visits Authorized [id number] Closed 04/28/2022 06/24/2023 99 99 Encounter Details Date Type Department Care Team (Late st Contact Info) Description 11/20/2021 9:30 AM EDT Infusion Hematology Oncology at [address] [phone] Metastatic urothelial carcinoma; Abnormal thyroid [...] Mediport accessed by [facility], flushes easily with no blood return. Pt [...] PM EDT Office Visit Hematology/Oncology at [address] [phone] Chase Mckay MD [facility] DR [place] [address] documented as of this encounter [...] Job Aid: Adult Flushing & Catheter Care (3508) job aid for additional information regarding guidelines [...] Job Aid: Adult Flushing & Catheter Care (2263) job aid for additional information regarding guidelines and administration., Routine Given 11/20/2021 11:33 AM EDT 20 mLs sodium chloride 0.9% infusion 100 mL/hr, Intravenous, CONTINUOUS, Starting on Fri11/20/21 at 1000, Until Fri11/20/21 at 1418 New Bag 11/20/2021 10:45 AM EDT 100 mL/hr 100 mL/hr documented in this encounter Care Teams Microsoft Crm Developer Relationship Specialty Start Date End Date Eren Shah DNP PCP - General Family Medicine 03/20/21 06/10/22 documented as of this encounter
--- OUTSIDE RECORDS SUMMARY | 2023-12-08 03:37 | XMS_ITS | Encounter Summary ---
[place] [address] Care Team Providers Care Financial Operations Analyst Name Role Phone Eren Shah CHELSEA Primary Care Provider [phone] Reason for Referral * Diagnostic Test (Routine) - Closed Specialty Diagnoses / Procedures Referred By Contac t Referred To Contact Radiology Diagnoses Metastatic urothelial carcinoma Primary lung adenocarcinoma, left Procedures NM PET CT Skull Base to Mid-thigh Jose Lange MD [facility] DR H[place] [address] [place] [address] Referral ID Status Reason Start Date Expiration Date V isits Requested Visits Authorized [id number] Closed Specialty Service Requested 01/22/2022 07/23/2023 1 1 Reason for Visit * Diagnostic Test (Routine) - Closed Specialty Diagnoses / Procedures Referred By Contac t Referred To Contact Radiology Diagnoses Metastatic urothelial carcinoma Primary lung adenocarcinoma, left Procedures NM PET CT Skull Base to Mid-thigh Jose Lange MD [facility] DR H[place] [address] [place] [address] Referral ID Status Reason Start Date Expiration Date V isits Requested Visits Authorized [id number] Closed Specialty Service Requested 01/22/2022 07/23/2023 1 1 Encounter Details Date Type Department Care Team (Latest Contact Info) Description 03/08/2022 11:19 AM EST Hospital Encounter Nuclear Medicine at [facility] [place] [address] Jose Lange MD [facility] DR HEM[place] [address] Metastatic urothelial carcinoma; Primary lung adenocarcinoma, left [...] PM EDT Office Visit Hematology/Oncology at [address] [phone] Chase Mckay MD [facility] DR [place] [address] documented as of this encounter Procedures Procedure [...] who have questions please contact the health campground caretaker that requested your imaging first. ? Electronically signed by: Ed Barajas MD, [facility] ([phone]), at 03/12/2022 12:04 PM Narrative 03/12/2022 12:04 PM EST EXAMINATION: NM PET CT STANDARD SKULL BASE TO MID-THIGH CLINICAL HISTORY: Non-small cell lung cancer, assess treatment response; Urologic cancer, assess treatment response - Include more detail below Restaging of metastatic urothelial carcinoma and primary lung cancer On pembrolizumab. TECHNIQUE: Following IV injection of 59-ishgpi-3-deoxyglucose (FDG) a standard uptake of approximately 60 [...] On pembrolizumab. TECHNIQUE: Following IV injection of 14-ssydtn-0-deoxyglucose (FDG) astandard uptake of approximately 60 minutes, [...] left hilum with SUV max of 31.6, hujdxkgcsp09.0. Interval increased size and FDG avidity in [...] patients who have questions please contactthe health campground caretaker that requested your imaging first. Electronically signed by: Ed Barajas MD, [facility]([phone]), at 03/12/2022 12:04 PM Jose Lange MD [...] Arm documented in this encounter Care Teams Financial Operations Analyst Relationship Specialty Start Date End Date Eren Shah DNP PCP - General Family Medicine 03/20/21 06/10/22 documented as of this encounter
--- OUTSIDE RECORDS SUMMARY | 2023-12-08 03:37 | XMS_ITS | Encounter Summary ---
[place] [address] Care Team Providers Care Mortgage Lender Name Role Phone Eren Shah CHELSEA Primary Care Provider [phone] Reason for Referral * Diagnostic Test (Routine) - Closed Specialty Diagnoses / Procedures Referred By Contac t Referred To Contact Radiology Diagnoses Bilateral hydronephrosis Procedures IR Nephroureteral (NU) Stent Placement Check/Change Maria Fernanda Suarez PA [facility] [place] [address] [facility] [place] [address] Referral ID Status Reason Start Date Expiration Date V isits Requested Visits Authorized [id number] Closed Specialty Service Requested 10/01/2021 04/02/2023 1 1 Reason for Visit * Diagnostic Test (Routine) - Closed Specialty Diagnoses / Procedures Referred By Contac t Referred To Contact Radiology Diagnoses Bilateral hydronephrosis Procedures IR Nephroureteral (NU) Stent Placement Check/Change Maria Fernanda Suarez PA [facility] [place] [address] [facility] [place] [address] Referral ID Status Reason Start Date Expiration Date V isits Requested Visits Authorized [id number] Closed Specialty Service Requested 10/01/2021 04/02/2023 1 1 Encounter Details Date Type Department Care Team (Latest Contact Info) Description 10/23/2021 10:45 AM EDT - 10/23/2021 11:59 PM EDT Hospital Encounter Radiology at [facility] [place] [address] Alexis De La Cruz MD [facility] DR [place] [address] Bilateral hydronephrosis Discharge Disposition: Home Social History [...] of : 1950 AGE: 71 y.o. Address: [address] [place] [phone] (home) Mobile: Telephone Information: Referring Provider: Maria Fernanda Suarez REASON FOR VISIT: Order Questions Answers Where will study be performed? [facility] Radiology [120] Reason for exam and [...] IR Mediport Placement 04/02/2021 Yuval Sinclair PA [facility] INTERVENTION[facility] RAD ??? IR NEPHROSTOMY TUBE PLACEMENT PERCUTANEOUS BILATERAL 02/20/2021 IR Nephrostomy Tube Placement Percutaneous Bilateral [facility] RAD ??? IR NEPHROURETERAL (NU) STENT PLACEMENT/CHECK/CHANGE 07/13/2021 IR Nephroureteral (NU) Stent Placement Check/Change 07/13/2021 Alexis De La Cruz MD [facility] INTERVENTIONLRAD ? ? PRO [facility] EBUS GUIDED SAMPL 3/> NODE STATION/STRUX N/A 04/04/2021 BRONCH, W ENDOBRONCHIAL ULTRASOUND (EBUS) GUIDED SAMPLING, 3+ NODES (WRVU 5.21) performed by Alonzo Cevallos MD at [facility] MAIN OR ??? PRO BRONCHOSCOPY, DIAGNOSTIC W LAVAGE N/A 04/04/2021 BRONCHOSCOPY, RIGID OR FLEXIBLE, WITH BRONCHIAL ALVEOLAR LAVAGE (WRVU 2.88) performed by Alonzo Cevallos MD at [facility] MAIN OR Date/Procedure Meds given/comments 02/20/21 b/l [...] PM EDT Office Visit Hematology/Oncology at [address] [phone] Chase Mckay MD [facility] DR HEMATOLOGY [place] [address] documented as of this encounter Procedures Procedure [...] encounter Visit Diagnoses Diagnosis Bilateral hydronephrosis Hydronephrosis Primary malignant neoplasm of [...] mLs documented in this encounter Care Teams Mortgage Lender Relationship Specialty Start Date End Date Eren Shah DNP PCP - General Family Medicine 03/20/21 06/10/22 documented as of this encounter
--- OUTSIDE RECORDS SUMMARY | 2023-12-08 03:37 | XMS_ITS | Encounter Summary ---
Author Organization [facility] [place] [address] Care Team Providers Care Paper Box Cutter Name Role Phone Eren Shah CHELSEA Primary Care Provider [phone] Reason for Visit * Reason Comments Chemotherapy C14D1 - Pembro * Treatment/Therapy Plan Authorization (Routine) - Closed Specialty Diagnoses / Procedures Referred By Contac t Referred To Contact Hematology and Oncology Diagnoses Metastatic urothelial carcinoma Abnormal thyroid function test Procedures [id number] Jose Barnhart MD [address] [place] [address] DR HEMATOLOGY [place] [address] Jose Lange MD [address] [place] [address] DR HEMATOLOGY [place] [address] Referral ID Status Reason Start Date Expiration Date Visits Re quested Visits Authorized [id number] Closed 04/28/2022 06/24/2023 99 99 Encounter Details Date Type Department Care Team (Late st Contact Info) Description 01/22/2022 11:30 AM EDT Infusion Hematology Oncology at [address] [phone] Metastatic urothelial carcinoma Social History [...] OBJECTIVE LAB DATA: Labs drawn today at [facility] and reviewed by this RN. No holds per treatment plan. IV ACCESS: Mediport accessed by [facility], flushed easily with blood return at [facility]. Able to obtain brisk blood. After [...] PM EDT Office Visit Hematology/Oncology at [address] [phone] Chase Mckay MD [facility] DR HEMATOLOGY [place] [address] documented as of this encounter Visit Diagnoses [...] (IV) Procedure: Accessing Implanted Vascular Access Devices (074) procedure and/or Intravenous (IV) Job Aid: Adult Flushing & Catheter Care (5306) job aid for additional information regarding guidelines [...] Job Aid: Adult Flushing & Catheter Care (6232) job aid for additional information regarding guidelines and administration., Routine Given 01/22/2022 1:07 PM EDT 20 mLs sodium chloride 0.9% infusion 100 mL/hr, Intravenous, CONTINUOUS, Starting on Fri01/22/22 at 1215, Until Fri01/22/22 at 1532 New Bag 01/22/2022 12:03 PM EDT 100 mL/hr 100 mL/hr documented in this encounter Care Teams Paper Box Cutter Relationship Specialty Start Date End Date Eren Shah DNP PCP - General Family Medicine 03/20/21 06/10/22 documented as of this encounter
--- OUTSIDE RECORDS SUMMARY | 2023-12-08 03:37 | XMS_ITS | Encounter Summary ---
Author Organization [place] [address] Care Team Providers Care Life Guard Name Role Phone Eren Shah CHELSEA Primary Care Provider +1 [phone] Reason for Visit * Reason Comments Chemotherapy [id number] * Treatment/Therapy Plan Authorization (Routine) - Closed Specialty Diagnoses / Procedures Referred By Contac t Referred To Contact Hematology and Oncology Diagnoses Metastatic urothelial carcinoma Abnormal thyroid function test Procedures [id number] Jose Barnhart MD [address] [place] [address] DR [place] [address] Jose Lange MD [address] [place] [address] DR HEMATOLOGY [place] [address] Referral ID Status Reason Start Date Expiration Date Visits Re quested Visits Authorized [id number] Closed 04/28/2022 06/24/2023 99 99 Encounter Details Date Type Department Care Team (Late st Contact Info) Description 03/12/2022 11:30 AM EST Infusion Hematology Oncology at [address] [phone] Metastatic urothelial carcinoma Social History Tobacco Use [...] OBJECTIVE LAB DATA: Labs drawn today at [facility] and reviewed by this RN. No holds per treatment plan. IV ACCESS: Mediport accessed by [facility] but unable to get blood return. Instilled [...] PM EDT Office Visit Hematology/Oncology at [address] [phone] Chase Mckay MD [facility] DR [place] [address] documented as of this encounter Visit Diagnoses [...] (IV) Procedure: Accessing Implanted Vascular Access Devices (254) procedure and/or Intravenous (IV) Job Aid: Adult Flushing & Catheter Care (4279) job aid for additional information regarding guidelines [...] Job Aid: Adult Flushing & Catheter Care (2645) job aid for additional information regarding guidelines and administration., Routine Given 03/12/2022 1:54 PM EST 20 mLs sodium chloride 0.9% infusion 100 mL/hr, Intravenous, CONTINUOUS, Starting on Fri03/12/22 at 1300, Until Fri03/12/22 at 1618 New Bag 03/12/2022 12:45 PM EST 100 mL/hr 100 mL/hr documented in this encounter Care Teams Life Guard Relationship Specialty Start Date End Date Eren Shah DNP PCP - General Family Medicine 03/20/21 06/10/22 documented as of this encounter
--- OUTSIDE RECORDS SUMMARY | 2023-12-08 03:37 | XMS_ITS | Encounter Summary ---
Author Organization [facility] Address [facility] [place] [address] Care Team Providers Care Pari Mutuel Clerk Name Role Phone Eren Shah CHELSEA Primary Care Provider +1 [phone] Reason for Visit * Diagnostic Test (Routine) - Closed Specialty Diagnoses / Procedures Referred By Contac t Referred To Contact Radiology Diagnoses Metastatic urothelial carcinoma Primary lung adenocarcinoma, left Procedures NM PET CT Skull Base to Mid-thigh Jose Lange MD [facility] DR [place] [address] [place] [address] Referral ID Status Reason Start Date Expiration Date V isits Requested Visits Authorized [id number] Closed Specialty Service Requested 01/22/2022 07/23/2023 1 1 Encounter Details Date Type Department Care Team (Latest Contact Info) Description 03/08/2022 11:20 AM EST - 03/08/2022 11:59 PM [facility] Hospital Encounter [place] [address] Jose Lange MD [facility] [place] [address] Discharge Disposition: Home Social History [...] PM EDT Office Visit Hematology/Oncology at [address] [phone] Chase Mckay MD [facility] DR [place] [address] documented as of this encounter Procedures Procedure Name Priority Date/Time Associated Diagnosis Comments NM PET CT SKULL BASE TO MID-THIGH ([facility]) Routine 03/08/2022 12:52 PM EST Metastatic urothelial carcinoma Primary lung adenocarcinoma, left POCT GLUCOSE Routine 03/08/2022 11:27 AM EST documented in this encounter Results * POCT Glucose (03/08/2022 11:27 AM EST) Glucose, POC 93 65 - 199 mg/dL [facility] Comment: Supplemental ranges: <140 mg/dL before meals <180 mg/dL all other times of the day Blood 03/08/2022 11:2 7 AM EST 03/08/2022 11:27 AM EST Jose Lange MD POINT OF CARE TEST O RDERABLES [facility] [place] [address] documented in this encounter Visit Diagnoses Not on filedocumented in this encounter Care Teams Pari Mutuel Clerk Relationship Specialty Start Date End Date Eren Shah DNP PCP - General Family Medicine 03/20/21 06/10/22 documented as of this encounter
--- OUTSIDE RECORDS SUMMARY | 2023-12-08 03:37 | XMS_ITS | Encounter Summary ---
Author Organization [facility] [place] [address] Care Team Providers Care Knifeman Name Role Phone Eren Shah CHELSEA Primary Care Provider +1 [phone] Reason for Referral * Diagnostic Test (Routine) - Closed Specialty Diagnoses / Procedures Referred By Contac t Referred To Contact Radiology Diagnoses Metastatic urothelial carcinoma Primary lung adenocarcinoma, left Procedures NM PET CT Skull Base to Mid-thigh Jose Lange MD [facility] DR [place] [address] [place] [address] Referral ID Status Reason Start Date Expiration Date V isits Requested Visits Authorized [id number] Closed Specialty Service Requested 01/22/2022 07/23/2023 1 1 Encounter Details Date Type Department Care Team (Late st Contact Info) Description 01/22/2022 11:00 AM EDT Office Visit Hematology/Oncology at [address] [phone] Jose Lange MD [facility] DR HEMATOLOGY [place] [address] Abena Ogden RN Metastatic urothelial carcinoma; Abnormal [...] were not included. Hematology & Medical Oncology [address] [phone] Barb returns today to continue treatment for [...] distinct lung primary. She was seen by phlebotomy manager , who recommended rigid bronchoscopy withattempts [...] her nephostomy tubes changed on January 18. [place] discomfort. The site of nephrostomy tube insertion [...] catheters 01/18/2022 UTI 09/14/2021 04/26/21-05/01/21 admission to [facility] with pneumonia, Pulmonary hypertension/CHF, BRITNI 04/16/2021 nephrostomy catheter exchange 04/04/21 bronchoscopy and tumor debulking- endobronchial biopsies positive for adenocarcinoma of lung origin Social History: No interval changes since last visit [id number]-utiv smoking history quit 6 years ago, does [...] The assay was performed according to the wire winding machine tender's ??instructions using Anti-PD-L1 (22C3, pharmDX) antibody. Electronically signed by: ?Herbert Ford MD Verified: ??04/11/2021 8:14 ?? Pathologist Performed at: ??-[facility] Dept. of Pathology, [place], [place] ? Surgical Pathology DIAGNOSIS A - Lung, ??left lower lobe mass, debulking: ?? - Adenocarcinoma, consistent with lung primary. Electronically signed by: ?Sana Dowell MD Verified: ??04/06/2021 11:16 ??Pathologist Performed at: ??-[facility] Dept. of Pathology, [place], [place] DISCUSSION Sections show an invasive, predominantly [...] of presumably metastatic urothelial carcinoma which include [place] based chemotherapy versus immunotherapy. Due to her [...] PM EDT Office Visit Hematology/Oncology at [address] [phone] Chase Mckay MD [facility] DR [place] [address] documented as of this encounter Results * [...] who have questions please contact the health respiratory care specialist that requested your imaging first. ? Narrative 03/12/2022 12:04 PM EST EXAMINATION: NM PET CT STANDARD SKULL BASE TO MID-THIGH CLINICAL HISTORY: Non-small cell lung cancer, assess treatment response; Urologic cancer, assess treatment response - Include more detail below Restaging of metastatic urothelial carcinoma and primary lung cancer On pembrolizumab. TECHNIQUE: Following IV injection of 45-gurewp-8-deoxyglucose (FDG) a standard uptake of approximately 60 [...] On pembrolizumab. TECHNIQUE: Following IV injection of 53-tuuaqg-5-deoxyglucose (FDG) astandard uptake of approximately 60 minutes, [...] left hilum with SUV max of 31.6, lhmbibycsp25.0. Interval increased size and FDG avidity in [...] patients who have questions please contactthe health respiratory care specialist that requested your imaging first. Electronically signed by: Ed Barajas MD, [facility]([phone]), at 03/12/2022 12:04 PM Jose Lange MD [...] pleura documented in this encounter Care Teams Knifeman Relationship Specialty Start Date End Date Eren Shah DNP PCP - General Family Medicine 03/20/21 06/10/22 documented as of this encounter
--- OUTSIDE RECORDS SUMMARY | 2023-12-08 03:37 | XMS_ITS | Encounter Summary ---
Author Organization [facility] Address [facility] [place] [address] Care Team Providers Care Personnel Placement Specialist Name Role Phone Eren Shah DNP Primary Care Provider [phone] Encounter Details Date Type Department Care Team (Late st Contact Info) Description 04/02/2022 10:30 AM EST Office Visit Hematology/Oncology at [address] [phone] Abena Ogden, RN Metastatic urothelial [...] this encounter Progress Notes * Abena Ogden, GENERAL MAINTENANCE MECHANIC - 04/02/2022 10:30 AM EST Images from the original note were not included. Hematology & Medical Oncology [address] [phone] Barb returns today to continue treatment for [...] distinct lung primary. She was seen by resource agent , who recommended rigid bronchoscopy withattempts to [...] catheters 01/18/2022 UTI 09/14/2021 04/26/21-05/01/21 admission to [facility] with pneumonia, Pulmonary hypertension/CHF, BRITNI 04/16/2021 nephrostomy catheter exchange 04/04/21 bronchoscopy and tumor debulking- endobronchial biopsies positive for adenocarcinoma of lung origin Social History: No interval changes since last visit 21-ezha-saqy smoking history quit 6 years ago, does [...] The assay was performed according to the patent counsel's ??instructions using Anti-PD-L1 (22C3, pharmDX) antibody. Electronically signed by: ?Herbert Ford MD Verified: ??04/11/2021 8:14 ?? Pathologist Performed at: ??-[facility] Dept. of Pathology, [place], [place] ? Surgical Pathology DIAGNOSIS A - Lung, ??left lower lobe mass, debulking: ?? - Adenocarcinoma, consistent with lung primary. Electronically signed by: ?Sana Dowell MD Verified: ??04/06/2021 11:16 ??Pathologist Performed at: ??-[facility] Dept. of Pathology, [place], [place] DISCUSSION Sections [...] of presumably metastatic urothelial carcinoma which include kake based chemotherapy versus immunotherapy. Due to her [...] PM EDT Office Visit Hematology/Oncology at [address] [phone] Chase Mckay MD [facility] DR HEMATOLOGY AND [place]COLOG[place] [address] documented as of this encounter Visit Diagnoses [...] pleura documented in this encounter Care Teams Personnel Placement Specialist Relationship Specialty Start Date End Date Eren Shah DNP PCP - General Family Medicine 03/20/21 06/10/22 documented as of this encounter
--- OUTSIDE RECORDS SUMMARY | 2023-12-08 03:37 | XMS_ITS | Encounter Summary ---
Author Organization [facility] Address [facility] [place] [address] Care Team Providers Care Billing Collections Specialist Name Role Phone Eren Shah DNP Primary Care Provider [phone] Encounter Details Date Type Department Care Team (Late st Contact Info) Description 01/01/2022 Notes Only Hematology/Oncology at [address] [phone] Elizabeth Mccray, [facility] OFFICE OF CARE MANAGEMENT Social History Tobacco [...] PM EDT Office Visit Hematology/Oncology at [address] [phone] Chase Mckay MD [facility] [place] [address] documented as of this encounter Visit Diagnoses Not on filedocumented in this encounter Care Teams Billing Collections Specialist Relationship Specialty Start Date End Date Eren Shah DNP PCP - General Family Medicine 03/20/21 06/10/22 documented as of this encounter
--- OUTSIDE RECORDS SUMMARY | 2023-12-08 03:37 | XMS_ITS | Encounter Summary ---
Author Organization [facility] Address [facility] [place] [address] Care Team Providers Care Bar Tender Name Role Phone Eren Shah DNP Primary Care Provider [phone] [phone] Encounter Details Date Type Department Care Team (Late st Contact Info) Description 04/01/2022 Telephone Hematology/Oncology at [address] [phone] Abena Ogden, RN Social History [...] PM EDT Office Visit Hematology/Oncology at [address] [phone] Chase Mckay MD [facility] DR [place] [address] documented as of this encounter Visit Diagnoses Diagnosis Metastatic urothelial carcinoma 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
--- OUTSIDE RECORDS SUMMARY | 2023-12-08 03:37 | XMS_ITS | Encounter Summary ---
Author [facility] [place] [address] Care Team Providers Care Environmental Analyst Name Role Phone Eren Shah DNP Primary Care Provider [phone] [phone] Encounter Details Date Type Department Care Team (Late st Contact Info) Description 12/24/2021 [place] [address] Jean Carlos Fenton, [facility] [place] [address] Social History Tobacco Use Types Packs/Day Years [...] IR Mediport Placement 04/02/2021 Yuval Sinclair PA [facility] ??? IR NEPHROSTOMY TUBE PLACEMENT PERCUTANEOUS BILATERAL 02/20/2021 IR Nephrostomy Tube Placement Percutaneous Bilateral [facility] ??? IR NEPHROURETERAL (NU) STENT PLACEMENT/CHECK/CHANGE 07/13/2021 IR Nephroureteral (NU) Stent Placement Check/Change 07/13/2021 Alexis De La Cruz MD [facility] ??? IR NEPHROURETERAL (NU) STENT PLACEMENT/CHECK/CHANGE 10/23/2021 IR Nephroureteral (NU) Stent Placement Check/Change 10/23/2021 Zeferino Rosado MD [facility] RAD ? ? PRO [facility] EBUS GUIDED SAMPL 3/> NODE STATION/STRUX N/A 04/04/2021 BRONCH, W ENDOBRONCHIAL ULTRASOUND (EBUS) GUIDED SAMPLING, 3+ NODES (WRVU 5.21) performed by Alonzo Cevallos MD at [facility] MAIN OR ??? PRO BRONCHOSCOPY, DIAGNOSTIC W LAVAGE N/A 04/04/2021 BRONCHOSCOPY, RIGID OR FLEXIBLE, WITH BRONCHIAL ALVEOLAR LAVAGE (WRVU 2.88) performed by Alonzo Cevallos MD at [facility] MA[facility] OR Medications: Current Outpatient Medications [...] PM EDT Office Visit Hematology/Oncology at [address] [phone] Chase Mckay MD [facility] DR HEMATOLOGY [place] [address] documented as of this encounter Visit Diagnoses Not on filedocumented in this encounter Care Teams Environmental Analyst Relationship Specialty Start Date End Date Eren Shah DNP PCP - General Family Medicine 03/20/21 06/10/22 documented as of this encounter
--- OUTSIDE RECORDS SUMMARY | 2023-12-08 03:37 | XMS_ITS | Encounter Summary ---
[place] [address] Care Team Providers Care Traffic Court Magistrate Name Role Phone Eren Shah CHELSEA Primary Care Provider Reason for Referral * Diagnostic Test (Routine) - Closed Specialty Diagnoses / Procedures Referred By Contac t Referred To Contact Radiology Diagnoses Metastatic urothelial carcinoma Procedures IR Nephroureteral (NU) Stent Placement Check/Change Zeferino Rosado MD [facility] [place] [address] [facility] [place] [address] Referral ID Status Reason Start Date Expiration Date V isits Requested Visits Authorized [id number] Closed Specialty Service Requested 10/23/2021 04/24/2023 1 1 Reason for Visit * Diagnostic Test (Routine) - Closed Specialty Diagnoses / Procedures Referred By Contac t Referred To Contact Radiology Diagnoses Metastatic urothelial carcinoma Procedures IR Nephroureteral (NU) Stent Placement Check/Change Zeferino Rosado MD [facility] [place] [address] [facility] [place] [address] Referral ID Status Reason Start Date Expiration Date V isits Requested Visits Authorized [id number] Closed Specialty Service Requested 10/23/2021 04/24/2023 1 1 Encounter Details Date Type Department Care Team (Latest Contact Info) Description 01/18/2022 11:54 AM EDT - 01/18/2022 11:59 PM EDT Hospital Encounter Radiology at [facility] [place] [address] Zeferino Rosado MD [facility] [place] [address] Metastatic urothelial carcinoma Discharge Disposition: Home Social [...] from the original note were not included. [facility] Vascular and Interventional Radiology Discharge Instructions [...] tubing from the drain. Put a credit risk analyst on both the drain and the bag. [...] is during regular office hours, please call [phone]. If it is after regular office hours, or on weekends or holidays, please call [phone] and ask to speak to the Drop Forger evaluation assistant for Interventional Radiology. Revised 02/11/19 documented in [...] 71 y.o. Address: [address] [facility] [address] (home) Mobile: Telephone Information: Referring Provider: Zeferino Rosado REASON FOR VISIT: Order Questions Answers Where will study be performed? [facility] Radiology [120] Reason for exam [...] PM EDT Office Visit Hematology/Oncology at [address] [phone] Chase Mckay MD [facility] DR HEMATOLOG[place] [address] documented as of this encounter [...] to 10 Fr nephrostomy tube. ??A 10 Romansh nephrostomy tube was placed with the pigtail [...] to negligible bladder volume. Zeferino Rosado MD [facility] IR ORDERABLES documented in this encounter Visit [...] mLs documented in this encounter Care Teams Traffic Court Magistrate Relationship Specialty Start Date End Date Eren Shah DNP PCP - General Family Medicine 03/20/21 06/10/22 documented as of this encounter
--- OUTSIDE RECORDS SUMMARY | 2023-12-08 03:37 | XMS_ITS | Encounter Summary ---
Author Organization [facility] Address [facility] [place] [address] Care Team Providers Care Forest Practices Field Coordinator Name Role Phone Eren Shah DNP Primary Care Provider +1 [phone] Encounter Details Date Type Department Care Team [...] PM EDT Office Visit Hematology/Oncology at [address] [phone] Chase Mckay MD [facility] DR [place] [address] documented as of this encounter Visit Diagnoses Not on filedocumented in this encounter Care Teams Forest Practices Field Coordinator Relationship Specialty Start Date End Date Eren Shah DNP PCP - General Family Medicine 03/20/21 06/10/22 documented as of this encounter
--- OUTSIDE RECORDS SUMMARY | 2023-12-08 03:37 | XMS_ITS | Encounter Summary ---
Author Organization [facility] Address [facility] [place] [address] Care Team Providers Care Maintenance Worker Municipal Name Role Phone Eren Shah DNP Primary Care Provider +1 [phone] Encounter Details Date Type Department Care Team [...] PM EDT Office Visit Hematology/Oncology at [address] [phone] Chase Mckay MD [facility] DR [place] [address] documented as of this encounter Visit Diagnoses Not on filedocumented in this encounter Care Teams Maintenance Worker Municipal Relationship Specialty Start Date End Date Eren Shah DNP PCP - General Family Medicine 03/20/21 06/10/22 documented as of this encounter
--- OUTSIDE RECORDS SUMMARY | 2023-12-08 03:37 | XMS_ITS | Encounter Summary ---
Author Organization [facility] [place] [address] Care Team Providers Care City Recorder Name Role Phone Eren Shah CHELSEA Primary Care Provider [phone] Encounter Details Date Type Department Care Team (Late st Contact Info) Description 02/12/2022 9:30 AM EDT Office Visit Hematology/Oncology at [address] [phone] Abena Ogden, RN Metastatic urothelial [...] were not included. Hematology & Medical Oncology [address] [phone] Barb returns today to continue treatment for [...] distinct lung primary. She was seen by flower shop laborer/designer , who recommended rigid bronchoscopy withattempts to [...] History: No interval changes since last visit 73-ehss-fdop smoking history quit 6 years ago, does [...] The assay was performed according to the wetlands conservation laborer's ??instructions using Anti-PD-L1 (22C3, pharmDX) antibody. Electronically signed by: ?Herbert Ford MD Verified: ??04/11/2021 8:14 ?? Pathologist Performed at: ??-[facility] Dept. of Pathology, [place], [place] ? Surgical Pathology DIAGNOSIS A - Lung, ??left lower lobe mass, debulking: ?? - Adenocarcinoma, consistent with lung primary. Electronically signed by: ?Sana Dowell MD Verified: ??04/06/2021 11:16 ??Pathologist Performed at: ??-[facility] Dept. of Pathology, [place], [place] DISCUSSION Sections show an invasive, predominantly [...] presumably metastatic urothelial carcinoma which include [facility] based chemotherapy versus immunotherapy. Due to her [...] treatment I will ask my colleague Dr. 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
--- OUTSIDE RECORDS SUMMARY | 2023-12-08 03:37 | XMS_ITS | Encounter Summary ---
Author Organization [facility] Address [facility] [place] [address] Care Team Providers Care Jack Tamp Operator Name Role Phone Eren Shah DNP Primary Care Provider Encounter Details Date Type Department Care Team (Late st Contact Info) Description 01/01/2022 10:00 AM EDT Office Visit Hematology/Oncology at [address] [phone] Jose Rhoades MD [facility] [address] [place] [address] Tea Dimas APRN [facility] [place] [address] Abnormal thyroid function test Social History Tobacco [...] were not included. Hematology & Medical Oncology [address] [address] Barb returns today to continue treatment for [...] distinct lung primary. She was seen by nurse assistant , who recommended rigid bronchoscopy withattempts to [...] last visit UTI 09/14/2021 04/26/21-05/01/21 admission to [facility] with pneumonia, Pulmonary hypertension/CHF, BRITNI 04/16/2021 nephrostomy catheter exchange 04/04/21 bronchoscopy and tumor debulking- endobronchial biopsies positive for adenocarcinoma of lung origin Social History: No interval changes since last visit [id number] smoking history quit 6 years ago, does [...] The assay was performed according to the pumper hand's ??instructions using Anti-PD-L1 (22C3, pharmDX) antibody. Electronically signed by: ?Herbert Ford MD Verified: ??04/11/2021 8:14 ?? Pathologist Performed at: ??-[facility] Dept. of Pathology, [place], [place] ? Surgical Pathology DIAGNOSIS A - Lung, ??left lower lobe mass, debulking: ?? - Adenocarcinoma, consistent with lung primary. Electronically signed by: ?Sana Dowell MD Verified: ??04/06/2021 11:16 ??Pathologist Performed at: ??-[facility] Dept. of Pathology, [place], [place] DISCUSSION Sections show an invasive, predominantly [...] of presumably metastatic urothelial carcinoma which include [place] based chemotherapy versus [...] Office Visit Hematology/Oncology at [address] [phone] Chase Mckay MD 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
--- OUTSIDE RECORDS SUMMARY | 2023-12-08 03:37 | XMS_ITS | Encounter Summary ---
Author Organization [facility] [place] [address] Care Team Providers Care Equities Trader Name Role Phone Eren Shah CHELSEA Primary Care Provider +1 [phone] Reason for Referral * Diagnostic Test (Routine) - Closed Specialty Diagnoses / Procedures Referred By Contjoslyn t Referred To Contact Radiology Diagnoses Metastatic urothelial carcinoma Procedures IR Nephroureteral (NU) Stent Placement Check/Change Zeferino Rosado MD [facility] [place] [address] [facility] [place] [address] Referral ID Status Reason Start Date Expiration Date V isits Requested Visits Authorized [id number] Closed Specialty Service Requested 10/23/2021 04/24/2023 1 1 Encounter Details Date Type Department Care Team (Late st Contact Info) Description 10/23/2021 [place] [address] Zeferino Rosado MD [facility] [place] [address] Metastatic urothelial carcinoma Social History [...] PM EDT Office Visit Hematology/Oncology at [address] [phone] Chase Mckay MD [facility] DR [place] [address] documented as of this encounter Results [...] to 10 Fr nephrostomy tube. ??A 10 Welsh nephrostomy tube was placed with the pigtail [...] to negligible bladder volume. Zeferino Rosado MD [facility] IR ORDERABLES documented in this encounter [...] pleura documented in this encounter Care Teams Equities Trader Relationship Specialty Start Date End Date Eren Shah DNP PCP - General Family Medicine 03/20/21 06/10/22 documented as of this encounter
--- OUTSIDE RECORDS SUMMARY | 2023-12-08 03:37 | XMS_ITS | Encounter Summary ---
Author Organization [facility] Address [facility] [place] [address] Care Team Providers Care Lead Web Developer Name Role Phone Eren Shah DNP Primary Care Provider +1 [phone] Encounter Details Date Type Department Care Team (Late st Contact Info) Description 01/18/2022 Orders [place] [address] Deandre Juares MD [facility] [place] [address] Metastatic urothelial carcinoma Social History Tobacco Use [...] PM EDT Office Visit Hematology/Oncology at [address] [phone] Chase Mckay MD [facility] DR [place] [address] documented as of this encounter Visit Diagnoses Diagnosis Metastatic urothelial carcinoma 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
--- OUTSIDE RECORDS SUMMARY | 2023-12-08 03:37 | XMS_ITS | Encounter Summary ---
Author Organization [facility] Address [facility] [place] [address] Care Team Providers Care Plant Superintendent Name Role Phone Eren Shah CHELSEA Primary Care Provider +1 [phone] Reason for Visit * Reason Comments IV Access Port flush; no infus ion today Encounter Details Date Type Department Care Team (Late st Contact Info) Description 02/12/2022 10:00 AM EDT Infusion Hematology Oncology at [address] [phone] Metastatic urothelial carcinoma Social [...] PM EDT Office Visit Hematology/Oncology at [address] [phone] Chase Mckay MD [facility] DR HEMATOLOGY [place] [address] documented as of this encounter Visit Diagnoses Diagnosis Metastatic urothelial carcinoma 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
--- OUTSIDE RECORDS SUMMARY | 2023-12-08 03:37 | XMS_ITS | Encounter Summary ---
Author Organization [facility] Address [facility] [place] [address] Care Team Providers Care Loading Machine Adjuster Name Role Phone Eren Shah DNP Primary Care Provider Encounter Details Date Type Department Care Team (Late st Contact Info) Description 11/20/2021 9:00 AM EDT Office Visit Hematology/Oncology at [address] [phone] Jose Lange MD [facility] DR [place] [address] Tea Dimas APRN [facility] [place] [address] Metastatic urothelial carcinoma; Abnormal thyroid function test; [...] were not included. Hematology & Medical Oncology [address] [phone] Barb returns today to continue treatment for [...] distinct lung primary. She was seen by legal billing specialist , who recommended rigid bronchoscopy withattempts [...] History: No interval changes since last visit 55-[id number]-[id number] smoking history quit 6 years ago, does [...] The assay was performed according to the fund controller's ??instructions using Anti-PD-L1 (22C3, pharmDX) antibody. Electronically signed by: ?Herbert Ford MD Verified: ??04/11/2021 8:14 ?? Pathologist Performed at: ??-[facility] Dept. of Pathology, [place], [place] ? Surgical Pathology DIAGNOSIS A - Lung, ??left lower lobe mass, debulking: ?? - Adenocarcinoma, consistent with lung primary. Electronically signed by: ?Sana Dowell MD Verified: ??04/06/2021 11:16 ??Pathologist Performed at: ??-[facility] Dept. of Pathology, [place], [place] DISCUSSION Sections show an invasive, predominantly [...] of presumably metastatic urothelial carcinoma which include [place] based chemotherapy versus immunotherapy. Due to her [...] PM EDT Office Visit Hematology/Oncology at [address] [address] Chase Mckay MD [facility] DR [place] [address] documented as of this encounter Visit Diagnoses Diagnosis Metastatic urothelial carcinoma Secondary malignant neoplasm of other urinary organs Abnormal thyroid function test Nonspecific abnormal results of thyroid function study Hypothyroidism due to drugs Other iatrogenic hypothyroidism Primary lung adenocarcinoma, left Primary malignant neoplasm of left lower lobe of lung Malignant neoplasm of lower lobe, bronchus, or lung Metastatic urothelial carcinoma 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
--- OUTSIDE RECORDS SUMMARY | 2023-12-08 03:37 | XMS_ITS | Encounter Summary ---
Author Organization [facility] Address [facility] [place] [address] Care Team Providers Care Carpet Cutter Name Role Phone Eren Shah DNP Primary Care Provider +[phone] Encounter Details Date Type Department Care Team [...] PM EDT Office Visit Hematology/Oncology at [address] [address] Chase Mckay MD [facility] DR [place] [address] documented as of this encounter Visit Diagnoses Not on filedocumented in this encounter Care Teams Carpet Cutter Relationship Specialty Start Date End Date Eren Shah DNP PCP - General Family Medicine 03/20/21 06/10/22 documented as of this encounter
--- OUTSIDE RECORDS SUMMARY | 2023-12-08 03:37 | XMS_ITS | Encounter Summary ---
Author Organization [facility] Address [facility] [place] [address] Care Team Providers Care Yield Clerk Name Role Phone Eren Shah DNP Primary Care Provider +1 [phone] Encounter Details Date Type Department Care Team (Late st Contact Info) Description 03/12/2022 Notes Only Hematology/Oncology at [address] [phone] Elizabeth Mccray, [facility] MANAG[facility] Social History Tobacco [...] new needs. Offered support. Reminded Barb of [employer] GENERAT[employer] INSPECTOR availability and will continue to follow as indicated. Brief assessment Supportive Counseling documented in this encounter Plan of Treatment Upcoming Encounters Date Type Department Care Team (Late st Contact Info) Description 12/08/2023 3:30 PM EDT Office Visit Hematology/Oncology at [address] [phone] Chase Mckay MD [facility] DR [place] [address] documented as of this encounter Visit Diagnoses Not on filedocumented in this encounter Care Teams Yield Clerk Relationship Specialty Start Date End Date Eren Shah DNP PCP - General Family Medicine 03/20/21 06/10/22 documented as of this encounter
--- OUTSIDE RECORDS SUMMARY | 2023-12-08 03:37 | XMS_ITS | Encounter Summary ---
Author Organization [facility] [place] [address] Care Team Providers Care Residential Care Facility Manager Name Role Phone Eren Shah CHELSEA Primary Care Provider [phone] Reason for Visit * Reason Comments Chemotherapy Cycle 10, Day 1 Pemb ro * Treatment/Therapy Plan Authorization (Routine) - Closed Specialty Diagnoses / Procedures Referred By Contac t Referred To Contact Hematology and Oncology Diagnoses Metastatic urothelial carcinoma Abnormal thyroid function test Procedures [id number] Jose Barnhart MD [address] [place] [address] DR HEMATOLOGY [place] [address] Jose Lange MD [address] [place] [address] DR HEMATOLOGY [place] [address] Referral ID Status Reason Start Date Expiration Date Visits Re quested Visits Authorized [id number] Closed 04/28/2022 06/24/2023 99 99 Encounter Details Date Type Department Care Team (Late st Contact Info) Description 10/30/2021 11:30 AM EDT Infusion Hematology Oncology at [address] [phone] Metastatic urothelial carcinoma; Abnormal [...] REASON FOR VISIT: Pembrolizumab Infusion SUBJECTIVE Ms. Bulladr is here for C10D1 Pembrolizumab. She is overall doing well. Met with provider today priorto infusion appt, has no questions/concerns and is ready for treatment today. OBJECTIVE LAB DATA: Labs drawn today at [facility] and reviewed by this RN. [...] PM EDT Office Visit Hematology/Oncology at [address] [phone] Chase Mckay MD [facility] [place] [address] documented as of this encounter Visit Diagnoses [...] 1205, Until Fri10/30/21 at 1545, Line Care, Refer to Intravenous (IV) Procedure: Accessing Implanted Vascular Access Devices (034) procedure and/or Intravenous (IV) Job Aid: Adult Flushing & Catheter Care (6143) job aid for additional information regarding guidelines [...] Job Aid: Adult Flushing & Catheter Care (9376) job aid for additional information regarding guidelines and administration., Routine Given 10/30/2021 1:11 PM EDT 20 mLs sodium chloride 0.9% infusion 100 mL/hr, Intravenous, CONTINUOUS, Starting on Fri10/30/21 at 1230, Until Fri10/30/21 at 1545 New Bag 10/30/2021 12:34 PM EDT 100 mL/hr 100 mL/hr documented in this encounter Care Teams Residential Care Facility Manager Relationship Specialty Start Date End Date Eren Shah DNP PCP - General Family Medicine 03/20/21 06/10/22 documented as of this encounter
--- OUTSIDE RECORDS SUMMARY | 2023-12-08 03:37 | XMS_ITS | Encounter Summary ---
Author Organization [facility] Address [facility] [place] [address] Care Team Providers Care Semiconductor Bonder Name Role Phone Eren Shah DNP Primary Care Provider [phone] Encounter Details Date Type Department Care Team (Late st Contact Info) Description 03/12/2022 11:00 AM EST Office Visit Hematology/Oncology at [address] [phone] Jose Lange MD [facility] DR [place] [address] Abena Ogden, RN Metastatic urothelial carcinoma; Hypothyroidism [...] were not included. Hematology & Medical Oncology [place] [phone] Barb returns today to continue treatment for [...] distinct lung primary. She was seen by tool room attendant , who recommended rigid bronchoscopy withattempts to [...] History: No interval changes since last visit 25-vgun-hdmi smoking history quit 6 years ago, does [...] The assay was performed according to the personal lines appraiser's ??instructions using Anti-PD-L1 (22C3, pharmDX) antibody. Electronically signed by: ?Herbert Ford MD Verified: ??04/11/2021 8:14 ?? Pathologist Performed at: ??-[facility] Dept. of Pathology, [place], [place] ? Surgical Pathology DIAGNOSIS A - Lung, ??left lower lobe mass, debulking: ?? - Adenocarcinoma, consistent with lung primary. Electronically signed by: ?Sana Dowell MD Verified: ??04/06/2021 11:16 ??Pathologist Performed at: ??-[facility] Dept. of Pathology, [place], [place] DISCUSSION Sections show an invasive, predominantly [...] of presumably metastatic urothelial carcinoma which include [place] based chemotherapy versus immunotherapy. Due to her [...] PM EDT Office Visit Hematology/Oncology at [address] [phone] Chase Mckay MD [facility] [address] [place] [address] documented as of this encounter Visit Diagnoses [...] pleura documented in this encounter Care Teams Semiconductor Bonder Relationship Specialty Start Date End Date Eren Shah DNP PCP - General Family Medicine 03/20/21 06/10/22 documented as of this encounter
--- OUTSIDE RECORDS SUMMARY | 2023-12-08 03:37 | XMS_ITS | Encounter Summary ---
Author Organization [facility] Address [facility] [place] [address] Care Team Providers Care Loom Changeover Operator Name Role Phone Eren Shah DNP Primary Care Provider [phone] Encounter Details Date Type Department Care Team [...] PM EDT Office Visit Hematology/Oncology at [address] [phone] Chase Mckay MD [facility] DR [place] [address] documented as of this encounter Visit Diagnoses Not on filedocumented in this encounter Care Teams Loom Changeover Operator Relationship Specialty Start Date End Date Eren Shah DNP PCP - General Family Medicine 03/20/21 06/10/22 documented as of this encounter
--- OUTSIDE RECORDS SUMMARY | 2023-12-08 03:37 | XMS_ITS | Encounter Summary ---
Author Organization [facility] [place] [address] Care Team Providers Care Unit Aide Name Role Phone Eren Shah CHELSEA Primary Care Provider +[phone] Reason for Visit * Reason Comments Chemotherapy Cycle 12, Day 1 Pemb rolizumab * Treatment/Therapy Plan Authorization (Routine) - Closed Specialty Diagnoses / Procedures Referred By Contac t Referred To Contact Hematology and Oncology Diagnoses Metastatic urothelial carcinoma Abnormal thyroid function test Procedures [id number] Jose Barnhart MD [address] [place] [address] DR [place] [address] Jose Lange MD [address] [place] [address] DR [place] [address] Referral ID Status Reason Start Date Expiration Date Visits Re quested Visits Authorized [id number] Closed 04/28/2022 06/24/2023 99 99 Encounter Details Date Type Department Care Team (Late st Contact Info) Description 12/11/2021 10:00 AM EDT Infusion Hematology Oncology at [address] [phone] Metastatic urothelial carcinoma; Abnormal thyroid [...] plan. IV ACCESS: Mediport accessed by [facility], flushed easily with blood return at [facility]. Pt reports it was has been positional [...] PM EDT Office Visit Hematology/Oncology at [address] [phone] Chase Mckay MD [facility] DR HEMATOLOGY [place] [address] documented as of this encounter Visit Diagnoses [...] Job Aid: Adult Flushing & Catheter Care (4873) job aid for additional information regarding guidelines [...] Job Aid: Adult Flushing & Catheter Care (9071) job aid for additional information regarding guidelines and administration., Routine Given 12/11/2021 11:18 AM EDT 20 mLs sodium chloride 0.9% infusion 100 mL/hr, Intravenous, CONTINUOUS, Starting on Fri12/11/21 at 1030, Until Fri12/11/21 at 1455 New Bag 12/11/2021 10:15 AM EDT 100 mL/hr 100 mL/hr documented in this encounter Care Teams Unit Aide Relationship Specialty Start Date End Date Eren Shah DNP PCP - General Family Medicine 03/20/21 06/10/22 documented as of this encounter
--- OUTSIDE RECORDS SUMMARY | 2023-12-08 03:37 | XMS_ITS | Encounter Summary ---
Author Organization [facility] Address [facility] [place] [address] Care Team Providers Care Manager Molecular Name Role Phone Eren Shah DNP Primary Care Provider Encounter Details Date Type Department Care Team (Late st Contact Info) Description 01/11/2022 Orders Only Hematology/Oncology at [address] [phone] Jose Lange MD [facility] DR HEMATOLOGY [place] [address] Metastatic urothelial carcinoma Social History Tobacco Use [...] on her traMADoL (Ultram) 50 mg Tablet [[id number]]. She says she has four tablets left. She does not take them every day but has been taking them more recently due to soreness around her nephrology tube. She is due to get that out next Friday down in [place]. Please send the refill to [facility] in [place]. If you have any questions, her number is [phone] RN phone call to patient to discuss [...] nephrostomy tubes replaced. Advised that she call [facility] on-call with any s/s of infection as above or with worsening pain. Verified that she has on-call number. Notified her that Rx for Tramadol was sent in today by Dr. Lange. 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
--- OUTSIDE RECORDS SUMMARY | 2023-12-08 03:37 | XMS_ITS | Encounter Summary ---
Author Organization Counts Include [facility] At [facility] Address [facility] [place] [address] Care Team Providers Care M48/M60 Tank Driver Name Role Phone Eren Shah DNP Primary Care Provider +1 [phone] Encounter Details Date Type Department Care Team (Late st Contact Info) Description 03/26/2022 [place] [address] Yonathan Van MD [facility] [place] [address] Social History Tobacco Use Types Packs/Day Years [...] on 01/18. Bilateral NUs were convertedto 10 Afghan nephrostomy catheters at that time due to [...] IR Mediport Placement 04/02/2021 Yuval Sinclair PA [facility] INTERVENTION[facility] RAD ??? IR NEPHROSTOMY TUBE PLACEMENT PERCUTANEOUS BILATERAL 02/20/2021 IR Nephrostomy Tube Placement Percutaneous Bilateral [facility] INTER[facility] RAD ??? IR NEPHROURETERAL (NU) STENT PLACEMENT/CHECK/CHANGE 07/13/2021 IR Nephroureteral (NU) Stent Placement Check/Change 07/13/2021 Alexis De La Cruz MD [facility] INTERVENTIONLRAD ??? IR NEPHROURETERAL (NU) STENT PLACEMENT/CHECK/CHANGE 10/23/2021 IR Nephroureteral (NU) Stent Placement Check/Change 10/23/2021 Zeferino Rosado MD [facility] INTERVENTION[facility] RAD ??? IR NEPHROURETERAL (NU) STENT PLACEMENT/CHECK/CHANGE 01/18/2022 IR Nephroureteral (NU) Stent Placement Check/Change 01/18/2022 Guillermo Nice MD [facility] INTERVENTIONLRAD ? ? PRO [facility] EBUS GUIDED SAMPL 3/> NODE STATION/STRUX N/A 04/04/2021 BRONCH, W ENDOBRONCHIAL ULTRASOUND (EBUS) GUIDED SAMPLING, 3+ NODES (WRVU 5.21) performed by Alonzo Cevallos MD at [facility] MAIN OR ??? PRO BRONCHOSCOPY, DIAGNOSTIC W LAVAGE N/A 04/04/2021 BRONCHOSCOPY, RIGID OR FLEXIBLE, WITH BRONCHIAL ALVEOLAR LAVAGE (WRVU 2.88) performed by Alonzo Cevallos MD at [facility] MAIN OR Medications: Current Outpatient Medications on [...] PM EDT Office Visit Hematology/Oncology at [address] [phone] Chase Mckay MD [facility] DR [place] [address] documented as of this encounter Visit Diagnoses Not on filedocumented in this encounter Care Teams M48/M60 Tank Driver Relationship Specialty Start Date End Date Eren Shah DNP PCP - General Family Medicine 03/20/21 06/10/22 documented as of this encounter
--- OUTSIDE RECORDS SUMMARY | 2023-12-08 03:37 | XMS_ITS | Encounter Summary ---
[place] [address] Care Team Providers Care Drop Shipment Clerk Name Role Phone Eren Shah CHELSEA Primary Care Provider Reason for Referral * Diagnostic Test (Routine) - Closed Specialty Diagnoses / Procedures Referred By Contac t Referred To Contact Radiology Diagnoses Metastatic urothelial carcinoma Procedures NM PET CT Skull Base to Mid-thigh Jose Lange MD [facility] [address] [place] [address] [place] [address] Referral ID Status Reason Start Date Expiration Date V isits Requested Visits Authorized [id number] Closed Specialty Service Requested 10/09/2021 04/10/2023 1 1 Reason for Visit * Diagnostic Test (Routine) - Closed Specialty Diagnoses / Procedures Referred By Contac t Referred To Contact Radiology Diagnoses Metastatic urothelial carcinoma Procedures NM PET CT Skull Base to Mid-thigh Jose Lange MD [facility] [place] [address] [place] [address] Referral ID Status Reason Start Date Expiration Date V isits Requested Visits Authorized [id number] Closed Specialty Service Requested 10/09/2021 04/10/2023 1 1 Encounter Details Date Type Department Care Team (Latest Contact Info) Description 11/13/2021 10:05 AM EDT - 11/13/2021 10:06 AM EDT Hospital Encounter Nuclear Medicine at [facility] [place] [address] Jose Lange MD [facility] [address] [place] [address] Metastatic urothelial carcinoma Discharge Disposition: Home Social [...] PM EDT Office Visit Hematology/Oncology at [address] [phone] Chase Mckay MD [facility] DR [place] [address] documented as of this encounter Procedures Procedure [...] questions please contact the health home care manager rn that requested your imaging first. ? Narrative 11/14/2021 10:47 AM EDT EXAMINATION: NM PET CT STANDARD SKULL BASE TO MID-THIGH CLINICAL HISTORY: Urologic cancer, assess treatment response - Include more detail below Restaging of metastatic urothelial carcinoma, patient has primary lung cancer as well. Status post 10 cycles of chemotherapy TECHNIQUE: Following IV injection of 34-dyiwqs-9-deoxyglucose (FDG) a standard uptake of approximately 60 [...] of chemotherapy TECHNIQUE: Following IV injection of 75-hzdjrb-6-deoxyglucose (FDG) astandard uptake of approximately 60 minutes, [...] the resident's interpretationand agree with the findings, dE Barajas MD at 11/14/2021 10:47 AM Thank you for letting us participate in the care of this patient. If youare a health care provider and have any questions regarding this report,please contact the number below. For patients who have questions please contactthe health home care manager rn that requested your imaging first. Jose Lange [...] Intravenous, ONCE PRN, 1 dose, Starting on Tu11/13/21 at 1108, Until Fri11/13/21 at 1059, Per Protocol, Radiology Contrast, Routine Given 11/13/2021 10:59 AM EDT 10 mCi Right Arm documented in this encounter Care Teams Drop Shipment Clerk Relationship Specialty Start Date End Date Eren Shah DNP PCP - General Family Medicine 03/20/21 06/10/22 documented as of this encounter
--- OUTSIDE RECORDS SUMMARY | 2023-12-08 03:37 | XMS_ITS | Encounter Summary ---
Author Organization [facility] Address [facility] [place] [address] Care Team Providers Care Small Lot Operator Name Role Phone Eren Shah DNP Primary Care Provider +1 [phone] Encounter Details Date Type Department Care Team [...] PM EDT Office Visit Hematology/Oncology at [address] [address] Chase Mckay MD [facility] DR HEMATOLOGY [place] [address] documented as of this encounter Visit Diagnoses Not on filedocumented in this encounter Care Teams Small Lot Operator Relationship Specialty Start Date End Date Eren Shah DNP PCP - General Family Medicine 03/20/21 06/10/22 documented as of this encounter
--- OUTSIDE RECORDS SUMMARY | 2023-12-08 03:37 | XMS_ITS | Encounter Summary ---
Author Organization [facility] Address [facility] [place] [address] Care Team Providers Care Medicaid Collection Specialist Name Role Phone Eren Shah DNP Primary Care Provider +1 [phone] Encounter Details Date Type Department Care Team (Late st Contact Info) Description 11/20/2021 Notes Only Hematology/Oncology at [address] [phone] Elizabeth Mccray, [facility] OFFICE OF CARE MANAGEMENT Social History Tobacco [...] PM EDT Office Visit Hematology/Oncology at [address] [phone] Chase Mckay MD [facility] DR [place] [address] documented as of this encounter Visit Diagnoses Not on filedocumented in this encounter Care Teams Medicaid Collection Specialist Relationship Specialty Start Date End Date Eren Shah DNP PCP - General Family Medicine 03/20/21 06/10/22 documented as of this encounter
--- OUTSIDE RECORDS SUMMARY | 2023-12-08 03:37 | XMS_ITS | Encounter Summary ---
Author Organization [facility] Address [place] [address] Care Team Providers Care Size Worker Name Role Phone Eren Shah CHELSEA Primary Care Provider +1 [phone] Reason for Visit * Reason Onset Date Comments Pain 03/15/2022 Encounter Details Date Type Department Care Team (Late st Contact Info) Description 03/15/2022 Telephone Hematology/Oncology at [address] [phone] Margarita Watson, RN Pain Social [...] he could be given. Best call back [phone](Daisha) documented in this encounter Plan of Treatment Upcoming Encounters Date Type Department Care Team (Late st Contact Info) Description 12/08/2023 3:30 PM EDT Office Visit Hematology/Oncology at [address] [phone] Chase Mckay MD [facility] DR [place] [address] documented as of this encounter Visit Diagnoses Not on filedocumented in this encounter Care Teams Size Worker Relationship Specialty Start Date End Date Eren Shah DNP PCP - General Family Medicine 03/20/21 06/10/22 documented as of this encounter
--- OUTSIDE RECORDS SUMMARY | 2023-12-08 03:37 | XMS_ITS | Encounter Summary ---
Author Organization [facility] Address [facility] [place] [address] Care Team Providers Care Freelance Court Reporter Name Role Phone Eren Shah DNP Primary Care Provider +1 [phone] Encounter Details Date Type Department Care Team (Late st Contact Info) Description 03/29/2022 Orders Only Hematology/Oncology at [address] [phone] Abena Ogden, RN Metastatic urothelial [...] PM EDT Office Visit Hematology/Oncology at [address] [phone] Chase Mckay MD 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
--- OUTSIDE RECORDS SUMMARY | 2023-12-08 03:37 | XMS_ITS | Encounter Summary ---
Author Organization [facility] Address [facility] [place] [address] Care Team Providers Care Chief Talent Officer Name Role Phone Eren Shah DNP Primary Care Provider +1 [phone] Encounter Details Date Type Department Care Team [...] PM EDT Office Visit Hematology/Oncology at [address] [phone] Chase Mckay MD [facility] DR H[place]ATOLOGY [place] [address] documented as of this encounter Visit Diagnoses Not on filedocumented in this encounter Care Teams Chief Talent Officer Relationship Specialty Start Date End Date Eren Shah DNP PCP - General Family Medicine 03/20/21 06/10/22 documented as of this encounter
--- OUTSIDE RECORDS SUMMARY | 2023-12-08 03:37 | XMS_ITS | Encounter Summary ---
Author Organization [facility] [place] [address] Care Team Providers Care Correctional Program Specialist Name Role Phone Eren Shah CHELSEA Primary Care Provider +1 [phone] Reason for Visit * Reason Comments Chemotherapy [id number] Pembro * Treatment/Therapy Plan Authorization (Routine) - Closed Specialty Diagnoses / Procedures Referred By Contac t Referred To Contact Hematology and Oncology Diagnoses Metastatic urothelial carcinoma Abnormal thyroid function test Procedures [id number] Jose Barnhart MD [address] [place] [address] DR [place] [address] Jose Lange MD [address] [place] [address] DR [place]EM[place]Y [place] [address] Referral ID Status Reason Start Date Expiration Date Visits Re quested Visits Authorized [id number] Closed 04/28/2022 06/24/2023 99 99 Encounter Details Date Type Department Care Team (Late st Contact Info) Description 02/19/2022 11:00 AM EDT Infusion Hematology Oncology at [address] [phone] Metastatic urothelial carcinoma Social History Tobacco Use [...] LAB DATA: Labs drawn today at [facility] and reviewed by this RN. No holds per treatment plan. IV ACCESS: Mediport accessed by [facility], flushed easily with blood return at [facility]. Able to obtain brisk blood. After infusion, [...] PM EDT Office Visit Hematology/Oncology at [address] [phone] Chase Mckay MD [facility] DR [place] [address] documented as of this encounter Visit Diagnoses [...] (IV) Procedure: Accessing Implanted Vascular Access Devices (004) procedure and/or Intravenous (IV) Job Aid: Adult Flushing & Catheter Care (7120) job aid for additional information regarding guidelines and administration., Routine Given 02/19/2022 12:32 PM EDT 500 Units pembrolizumab (Keytruda) 200 mg in sodium chloride 0.9% 108 mL infusion 200 mg, Intravenous, ONCE, 1 dose, On Fri02/19/22 at 1245, Administer over 30 Minutes, Flush [...] Job Aid: Adult Flushing & Catheter Care (1963) job aid for additional information regarding guidelines and administration., Routine Given 02/19/2022 12:32 PM EDT 20 mLs sodium chloride 0.9% infusion 100 mL/hr, Intravenous, CONTINUOUS, Starting on Fri02/19/22 at 1145, Until Fri02/19/22 at 1512 New Bag 02/19/2022 11:25 AM EDT 100 mL/hr 100 mL/hr documented in this encounter Care Teams Correctional Program Specialist Relationship Specialty Start Date End Date Eren Shah DNP PCP - General Family Medicine 03/20/21 06/10/22 documented as of this encounter
--- OUTSIDE RECORDS SUMMARY | 2023-12-08 03:37 | XMS_ITS | Encounter Summary ---
Author Organization [facility] [place] [address] Care Team Providers Care C Architect Name Role Phone Eren Shah DNP Primary Care Provider +1 [phone] Encounter Details Date Type Department Care Team (Late st Contact Info) Description 10/30/2021 11:00 AM EDT Office Visit Hematology/Oncology at [address] [phone] Rossi Dimas, [facility] [place] [address] Metastatic urothelial carcinoma; Hypothyroidism due to drugs [...] were not included. Hematology & Medical Oncology [address] [phone] Barb returns today to continue treatment for [...] distinct lung primary. She was seen by ssis architect , who recommended rigid bronchoscopy withattempts to [...] today. PMH: UTI 09/14/2009 04/26/21-05/01/[address] [facility] with pneumonia, Pulmonary hypertension/CHF, BRITNI 04/16/2021 nephrostomy catheter exchange 04/04/21 bronchoscopy and tumor debulking- endobronchial biopsies positive for adenocarcinoma of lung origin Social History: No interval changes since last visit 23-zbax-xirp smoking history quit 6 years ago, does [...] by mouth daily. Started by: ROSSI DIMAS KINDERGARTNER 25 mcg Quantity: 30 tablet Refills: 5 [...] The assay was performed according to the fryer line helper's ??instructions using Anti-PD-L1 (22C3, pharmDX) antibody. Electronically signed by: ?Herbert Ford MD Verified: ??04/11/2021 8:14 ?? Pathologist Performed at: ??-[facility] Dept. of Pathology, [place], [place] ? Surgical Pathology DIAGNOSIS A - Lung, ??left lower lobe mass, debulking: ?? - Adenocarcinoma, consistent with lung primary. Electronically signed by: ?Sana Dowell MD Verified: ??04/06/2021 11:16 ??Pathologist Performed at: ??-[facility] Dept. of Pathology, [place], [place] DISCUSSION Sections show an invasive, predominantly [...] of presumably metastatic urothelial carcinoma which include [place] based chemotherapy versus immunotherapy. 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
--- OUTSIDE RECORDS SUMMARY | 2023-12-08 03:37 | XMS_ITS | Encounter Summary ---
Author Organization [facility] [address] Care Team Providers Care Motorcycle Engine Assembler Name Role Phone Eren Shah CHELSEA Primary Care Provider [phone] [phone] Reason for Visit * Diagnostic Test (Routine) - Closed Specialty Diagnoses / Procedures Referred By Contac t Referred To Contact Radiology Diagnoses Metastatic urothelial carcinoma Procedures NM PET CT Skull Base to Mid-thigh Jose Lange MD [facility] DR HEMATOLOGY [place] [address] [facility] [place] [address] Referral ID Status Reason Start Date Expiration Date V isits Requested Visits Authorized [id number] Closed Specialty Service Requested 10/09/2021 04/10/2023 1 1 Encounter Details Date Type Department Care Team (Latest Contact Info) Description 11/13/2021 10:07 AM EDT - 11/13/2021 11:59 PM EDT Hospital Encounter Nuclear [place] [address] Jose Lange MD [facility] HEMATOLOGY [place] [address] Discharge Disposition: Home Social History [...] PM EDT Office Visit Hematology/Oncology at [address] [phone] Chase Mckay MD [facility] DR HEMATOLOGY [place] [address] documented as of this encounter Procedures Procedure Name Priority Date/Time Associated Diagnosis Comments NM PET CT SKULL BASE TO MID-THIGH ([facility]) Routine 11/13/2021 12:12 PM EDT Metastatic urothelial carcinoma POCT GLUCOSE Routine 11/13/2021 10:48 AM EDT documented in this encounter Results * POCT Glucose (11/13/2021 10:48 AM EDT) Glucose, POC 89 65 - 199 mg/dL [facility] Comment: Supplemental ranges: <140 mg/dL before meals <180 mg/dL all other times of the day Blood 11/13/2021 10:4 8 AM EDT 11/13/2021 10:48 AM EDT Jose Lange MD POINT OF CARE TEST O RDERABLES [facility] [place] [address] documented in this encounter Visit Diagnoses Not on filedocumented in this encounter Care Teams Motorcycle Engine Assembler Relationship Specialty Start Date End Date Eren Shah DNP PCP - General Family Medicine 03/20/21 06/10/22 documented as of this encounter
--- OUTSIDE RECORDS SUMMARY | 2023-12-08 03:37 | XMS_ITS | Encounter Summary ---
Author Organization [facility] Address [facility] [place] [address] Care Team Providers Care Gin Inspector Name Role Phone Eren Shah DNP Primary Care Provider Encounter Details Date Type Department Care Team (Late st Contact Info) Description 02/19/2022 10:30 AM EDT Office Visit Hematology/Oncology at [address] [phone] Jose Lange MD [facility] DR [place] [address] Abena Ogden RN Metastatic urothelial carcinoma; Urinary [...] No 03/27/2021 Housing Stability Vital Sign Answer Rasahwn e Recorded In the last 12 months, [...] were not included. Hematology & Medical Oncology [address] [phone] Barb returns today to continue treatment for [...] distinct lung primary. She was seen by sales enablement analyst , who recommended rigid bronchoscopy withattempts [...] History: No interval changes since last visit 85-tcft-csiq smoking history quit 6 years ago, does [...] The assay was performed according to the associate professor of literacy's ??instructions using Anti-PD-L1 (22C3, pharmDX) antibody. Electronically signed by: ?Liliana CAMARGO, Herbert Pope Verified: ??04/11/2021 8:14 ?? Pathologist Performed at: ??-[facility] Dept. of Pathology, [place], [place] ? Surgical Pathology DIAGNOSIS A - Lung, ??left lower lobe mass, debulking: ?? - Adenocarcinoma, consistent with lung primary. Electronically signed by: ?Sana Dowell MD Verified: ??04/06/2021 11:16 ??Pathologist Performed at: ??-[facility] Dept. of Pathology, [place], [place] DISCUSSION Sections show an invasive, predominantly [...] of presumably metastatic urothelial carcinoma which include [place] based chemotherapy versus immunotherapy. Due to her [...] PM EDT Office Visit Hematology/Oncology at [address] [phone] Chase Mckay MD [facility] DR [place] [address] documented as of this encounter Visit Diagnoses [...] pleura documented in this encounter Care Teams Gin Inspector Relationship Specialty Start Date End Date Eren Shah DNP PCP - General Family Medicine 03/20/21 06/10/22 documented as of this encounter
--- OUTSIDE RECORDS SUMMARY | 2023-12-08 03:38 | XMS_ITS | Encounter Summary ---
Author Organization [facility] Address [facility] [place] [address] Care Team Providers Care Manager User Experience Name Role Phone Eren Shah DNP Primary Care Provider Encounter Details Date Type Department Care Team (Late st Contact Info) Description 09/18/2021 9:30 AM EDT Office Visit Hematology/Oncology at [address] [phone] Jose Lange MD [facility] DR HEMATOLOGY [place] [address] Abena Ogden, RN Urinary tract infection associated [...] were not included. Hematology & Medical Oncology [address] [address] Barb returns today to continue [...] distinct lung primary. She was seen by yard labor supervisor , who recommended rigid bronchoscopy withattempts to [...] changes since last visit 04/26/21-05/01/[address] [facility] with pneumonia, Pulmonary hypertension/CHF, BRITNI 04/16/2021 nephrostomy catheter exchange 04/04/21 bronchoscopy and tumor debulking- endobronchial biopsies positive for adenocarcinoma of lung origin Social History: 57-sqfe-kpna smoking history quit 6 years ago, does [...] The assay was performed according to the supervisor boiler repair's ??instructions using Anti-PD-L1 (22C3, pharmDX) antibody. Electronically signed by: ?Herbert Ford MD Verified: ??04/11/2021 8:14 ?? Pathologist Performed at: ??-[facility] Dept. of Pathology, [place], [place] ? Surgical Pathology DIAGNOSIS A - Lung, ??left lower lobe mass, debulking: ?? - Adenocarcinoma, consistent with lung primary. Electronically signed by: ?Sana Dowell MD Verified: ??04/06/2021 11:16 ??Pathologist Performed at: ??-[facility] Dept. of Pathology, [place], [place] DISCUSSION Sections show an invasive, predominantly [...] of presumably metastatic urothelial carcinoma which include [place] based chemotherapy versus immunotherapy. Due to [...] PM EDT Office Visit Hematology/Oncology at [address] [phone] Chase Mckay MD 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
--- OUTSIDE RECORDS SUMMARY | 2023-12-08 03:38 | XMS_ITS | Encounter Summary ---
Author Organization [facility] [place] [address] Care Team Providers Care Boiler Testing Technician Name Role Phone Eren Shah DNP Primary Care Provider +1 [phone] Encounter Details Date Type Department Care Team (Late st Contact Info) Description 07/20/2021 Orders Only Hematology [place] [address] Suzanne Burgess, [facility] HEMATOLOGY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
--- OUTSIDE RECORDS SUMMARY | 2023-12-08 03:38 | XMS_ITS | Encounter Summary ---
Author Organization [facility] Address [facility] [place] [address] Care Team Providers Care Snow Plow Operator Name Role Phone Eren Shah CHELSEA Primary Care Provider +1 [phone] Reason for Visit * Reason Comments Advice Only * Consultation (Routine) - Closed Specialty Diagnoses / Procedures Referred By Contac t Referred To Contact Hematology and Oncology Diagnoses Primary lung adenocarcinoma, left Jose Lange MD [facility] [place] [address] Chase Mckay MD [facility] [place] [address] Referral ID Status Reason Start Date Expiration Date V isits Requested Visits Authorized [id number] Closed Consult, Test & Treat 07/17/2021 07/17/2022 1 1 Encounter Details Date Type Department Care Team (Late st Contact Info) Description 08/03/2021 10:30 AM EDT Office Visit Hematology [place] [address] Chase Mckay MD [facility] DR [place] [address] Suzanne Burgess APRN [facility] HEMATOLOGY[place] [address] Metastatic urothelial carcinoma; Primary malignant neoplasm of [...] original note were not [place] [address] [phone] Barb Bullard is being seen for the [...] Chase Mckay MD, MS 08/03/2021 Thoracic Oncology [facility] CC: Jose Lange MD HPI/Interval History/Subjective: Barb [...] [facility]. Lives with her daughter. 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 Tobacco use: 30 pk year hx quit 2014 Alcohol use: Does not drink Drug use: None Financial Distress: Medicare A/B has financial assistance through the hospitals so not worried about food Penitentiary or ability to pay for her cancer [...] of left lower lobe mass lung debulking ([id number]), the immunostain findings in the present case [...] of left lower lobe mass lung debulking ([id number]), the immunostain findings in the present case [...] PM EDT Office Visit Hematology/Oncology at [address] [address] Chase Mckay MD [facility] DR [place] [address] documented as of this encounter Visit Diagnoses [...] pleura documented in this encounter Care Teams Snow Plow Operator Relationship Specialty Start Date End Date Eren Shah DNP PCP - General Family Medicine 03/20/21 06/10/22 documented as of this encounter
--- OUTSIDE RECORDS SUMMARY | 2023-12-08 03:38 | XMS_ITS | Encounter Summary ---
Author Organization [facility] Address [facility] [place] [address] Care Team Providers Care Automotive Service Writer Name Role Phone Eren Shah CHELSEA Primary Care Provider +1 [phone] Reason for Visit * Reason Comments Medication Refill Encounter Details Date Type Department Care Team (Late st Contact Info) Description 06/20/2021 Refill Hematology/Oncology at [address] [phone] Abena Ogden, RN Metastatic urothelial [...] PM EDT Office Visit Hematology/Oncology at [address] [address] Chase Mckay MD 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
--- OUTSIDE RECORDS SUMMARY | 2023-12-08 03:38 | XMS_ITS | Encounter Summary ---
Author Organization [facility] Address [facility] [place] [address] Care Team Providers Care Pulpit Operator Name Role Phone Eren Shah DNP Primary Care Provider +1 [phone] Encounter Details Date Type Department Care Team (Late st Contact Info) Description 09/18/2021 Notes Only Hematology/Oncology at [address] [phone] Elizabeth Mccray, [facility] OFFICE OF CARE MANAGEMENT [...] any new needs today. Reminded pt of CASTING SUPERVISOR availability and contact information. Will follow as indicated. Brief assessment Supportive Counseling documented in this encounter Plan of Treatment Upcoming Encounters Date Type Department Care Team (Late st Contact Info) Description 12/08/2023 3:30 PM EDT Office Visit Hematology/Oncology at [address] [address] Chase Mckay MD [facility] DR [place] [address] documented as of this encounter Visit Diagnoses Not on filedocumented in this encounter Care Teams Pulpit Operator Relationship Specialty Start Date End Date Eren Shah DNP PCP - General Family Medicine 03/20/21 06/10/22 documented as of this encounter
--- OUTSIDE RECORDS SUMMARY | 2023-12-08 03:38 | XMS_ITS | Encounter Summary ---
Author Organization [facility] Address [facility] [place] [address] Care Team Providers Care Wrapping Checker Name Role Phone Eren Shah DNP Primary Care Provider +1 [phone] Encounter Details Date Type Department Care Team (Late st Contact Info) Description 08/28/2021 Notes Only Hematology/Oncology at [address] [phone] Elizabeth Mccray, [facility] OFFICE OF CARE MANAGEMENT Social History Tobacco [...] any new needs today. Reminded her of STRIKE PLATE ATTACHER availability and contact information. Will continue to follow. Brief assessment Supportive Counseling documented in this encounter Plan of Treatment Upcoming Encounters Date Type Department Care Team (Late st Contact Info) Description 12/08/2023 3:30 PM EDT Office Visit Hematology/Oncology at [address] [phone] Chase Mckay MD [facility] [place] [address] documented as of this encounter Visit Diagnoses Not on filedocumented in this encounter Care Teams Wrapping Checker Relationship Specialty Start Date End Date Eren Shah DNP PCP - General Family Medicine 03/20/21 06/10/22 documented as of this encounter
--- OUTSIDE RECORDS SUMMARY | 2023-12-08 03:38 | XMS_ITS | Encounter Summary ---
Author Organization [facility] Address [facility] [place] [address] Care Team Providers Care Stitch Bonding Machine Tender Name Role Phone Eren Shah CHELSEA Primary Care Provider [phone] [phone] Reason for Visit * Reason Comments Follow-up Encounter Details Date Type Department Care Team (Late st Contact Info) Description 08/07/2021 9:00 AM EDT Office Visit Hematology/Oncology at [address] [phone] Jose Lange MD [facility] DR HEMATOLOGY [place] [address] Abena Ogden, RN Metastatic urothelial carcinoma; Primary [...] were not included. Hematology & Medical Oncology [address] [phone] Barb returns today to continue treatment for [...] distinct lung primary. She was seen by cassandra developer , who recommended rigid bronchoscopy withattempts [...] changes since last visit 04/26/21-05/01/21 admission to [facility] with pneumonia, Pulmonary hypertension/CHF, BRITNI 04/16/2021 nephrostomy catheter exchange 04/04/21 bronchoscopy and tumor debulking- endobronchial biopsies positive for adenocarcinoma of lung origin Social History: 52-abtc-huad smoking history quit 6 years ago, does [...] The assay was performed according to the high energy forming equipment operator's ??instructions using Anti-PD-L1 (22C3, pharmDX) antibody. Electronically signed by: ?Herbert Ford MD Verified: ??04/11/2021 8:14 ?? Pathologist Performed at: ??-[facility] Dept. of Pathology, [place], [place] ? Surgical Pathology DIAGNOSIS A - Lung, ??left lower lobe mass, debulking: ?? - Adenocarcinoma, consistent with lung primary. Electronically signed by: ?Sana Dowell MD Verified: ??04/06/2021 11:16 ??Pathologist Performed at: ??-[facility] Dept. of Pathology, [facility], [place], [place] DISCUSSION Sections show an invasive, predominantly [...] of presumably metastatic urothelial carcinoma which include barrow based chemotherapy versus immunotherapy. Due to her [...] PM EDT Office Visit Hematology/Oncology at [address] [phone] Chase Mckay MD [facility] DR HEMATOLOGY [place] [address] documented as of this encounter Visit Diagnoses [...] pleura documented in this encounter Care Teams Stitch Bonding Machine Tender Relationship Specialty Start Date End Date Eren Shah DNP PCP - General Family Medicine 03/20/21 06/10/22 documented as of this encounter
--- OUTSIDE RECORDS SUMMARY | 2023-12-08 03:38 | XMS_ITS | Encounter Summary ---
[place] [address] Care Team Providers Care Paint Brush Maker Name Role Phone Eren Shah CHELSEA Primary Care Provider [phone]- [phone] Reason for Referral * Diagnostic Test (Routine) - Closed Specialty Diagnoses / Procedures Referred By Contac t Referred To Contact Radiology Diagnoses Metastatic urothelial carcinoma Procedures CT Chest Abdomen Pelvis w Contrast (Generic) Abena Ogden RN [address] [place] [address] [place] [address] [facility] [place] [address] Referral ID Status Reason Start Date Expiration Date V isits Requested Visits Authorized [id number] Closed Specialty Service Requested 06/26/2021 12/27/2022 1 1 Reason for Visit * Diagnostic Test (Routine) - Closed Specialty Diagnoses / Procedures Referred By Contac t Referred To Contact Radiology Diagnoses Metastatic urothelial carcinoma Procedures CT Chest Abdomen Pelvis w Contrast (Generic) Abena Ogden RN [address] [place] [address] [place] [address] [facility] [place] [address] Referral ID Status Reason Start Date Expiration Date V isits Requested Visits Authorized [id number] Closed Specialty Service Requested 06/26/2021 12/27/2022 1 1 Encounter Details Date Type Department Care Team (Latest Contact Info) Description 07/13/2021 2:29 PM EDT - 07/13/2021 11:59 PM EDT Hospital En[place] [address] Abena Ogden RN Metastatic urothelial carcinoma Discharge [...] PM EDT Office Visit Hematology/Oncology at [address] [phone] Chase Mckay MD [facility] [address] [place] [address] documented as of this encounter Procedures Procedure [...] have questions please contact the health care transition manager that requested your imaging first. ? Electronically signed by: Kang Ybarra MD, [facility] ([phone]), at 07/14/2021 2:41 PM Narrative 07/14/2021 2:41 PM EDT EXAMINATION: CT [...] who have questions please contactthe health care transition manager that requested your imaging first. Abena Ogden RN IMG CT ORDERABLES documented [...] mLs documented in this encounter Care Teams Paint Brush Maker Relationship Specialty Start Date End Date Eren Shah DNP PCP - General Family Medicine 03/20/21 06/10/22 documented as of this encounter
--- OUTSIDE RECORDS SUMMARY | 2023-12-08 03:38 | XMS_ITS | Encounter Summary ---
Author Organization [facility] Address [place] [address] Care Team Providers Care Chain Builder Name Role Phone Eren Shah DNP Primary Care Provider Encounter Details Date Type Department Care Team (Late st Contact Info) Description 06/05/2021 9:30 AM EST Office Visit Hematology/Oncology at [address] [phone] Abena Ogden, RN Metastatic urothelial [...] were not included. Hematology & Medical Oncology [address] [phone] Barb returns today to continue treatment for [...] distinct lung primary. She was seen by software security consultant , who recommended rigid bronchoscopy with attempts [...] other focal complaintstoday. PMH: 04/26/21-05/01/21 admission to [facility] with pneumonia, Pulmonary hypertension/CHF, BRITNI 04/16/2021 nephrostomy catheter exchange 04/04/21 bronchoscopy and tumor debulking- endobronchial biopsies positive for adenocarcinoma of lung origin Social History: 48-wlif-xfnd smoking history quit 6 years ago, does [...] The assay was performed according to the aluminum hydroxide process operator's ??instructions using Anti-PD-L1 (22C3, pharmDX) antibody. Electronically signed by: ?Herbert Ford MD Verified: ??04/11/2021 8:14 ?? Pathologist Performed at: ??-[facility] Dept. of Pathology, [place], [place] ? Surgical Pathology DIAGNOSIS A - Lung, ??left lower lobe mass, debulking: ?? - Adenocarcinoma, consistent with lung primary. Electronically signed by: ?Sana Dowell MD Verified: ??04/06/2021 11:16 ??Pathologist Performed at: ??-[facility] Dept. of Pathology, [facility], [place], [place] DISCUSSION Sections show an invasive, predominantly [...] questions/concerns or new symptoms. Abena Ogden MSN, HAND PATCHER, AOCNP Medical Oncology documented in this encounter Plan of Treatment Upcoming Encounters Date Type Department Care Team (Late st Contact Info) Description 12/08/2023 3:30 PM EDT Office Visit Hematology/Oncology at [address] [phone] Chase Mckay MD [facility] DR HEMATOLOGY [place] [address] documented as of this encounter Visit Diagnoses Diagnosis Metastatic urothelial carcinoma Secondary malignant neoplasm of other urinary organs Primary malignant neoplasm of left lower lobe of lung Malignant neoplasm of lower lobe, bronchus, or lung Metastatic urothelial carcinoma 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
--- OUTSIDE RECORDS SUMMARY | 2023-12-08 03:38 | XMS_ITS | Encounter Summary ---
Author Organization [facility] Address [facility] [place] [address] Care Team Providers Care Mobile Marketing Manager Name Role Phone Eren Shah DNP Primary Care Provider Encounter Details Date Type Department Care Team (Late st Contact Info) Description 05/15/2021 Notes Only Hematology/Oncology at [address] [phone] Elizabeth Mccray, [facility] [...] any new needs today. Reminded her of CEO AND PRESIDENT availability and contact information. Will follow for support and resources. Brief assessment Supportive Counseling documented in this encounter Plan of Treatment Upcoming Encounters Date Type Department Care Team (Late Contact Info) Description 12/08/2023 3:30 PM EDT Office Visit Hematology/Oncology at [address] [phone] Chase Mckay MD [facility] DR HEMATOLOGY AND ONCOLOGY [place], [place] [phone] documented as of this encounter Visit Diagnoses Not on filedocumented in this encounter Care Teams Mobile Marketing Manager Relationship Specialty Start Date End Date Eren Shah DNP PCP - General Family Medicine 03/20/21 06/10/22 documented as of this encounter
--- OUTSIDE RECORDS SUMMARY | 2023-12-08 03:38 | XMS_ITS | Encounter Summary ---
Author Organization [facility] Address [facility] [place] [address] Care Team Providers Care Manager Food Safety Name Role Phone Eren Shah DNP Primary Care Provider [phone] [phone] Encounter Details Date Type Department Care Team (Late st Contact Info) Description 07/18/2021 Orders Only Hematology/Oncology at [address] [phone] Abena Ogden, RN Anemia of [...] PM EDT Office Visit Hematology/Oncology at [address] [phone] Chase Mckay MD [facility] [address] [place] [address] documented as of this encounter Visit Diagnoses [...] in this encounter Care Teams Manager Food Safety Relationship Specialty Start Date End Date Eren Shah DNP PCP - General Family Medicine 03/20/21 06/10/22 documented as of this encounter
--- OUTSIDE RECORDS SUMMARY | 2023-12-08 03:38 | XMS_ITS | Encounter Summary ---
Author Organization [facility] [place] [address] Care Team Providers Care Assistant Floor Covering Printer Name Role Phone Eren Shah CHELSEA Primary Care Provider +1 [phone] Reason for Visit * Reason Comments Chemotherapy C7D1 Pebrolizumab * Treatment/Therapy Plan Authorization (Routine) - Closed Specialty Diagnoses / Procedures Referred By Contac t Referred To Contact Hematology and Oncology Diagnoses Metastatic urothelial carcinoma Abnormal thyroid function test Procedures [id number] Jose Barnhart MD [address] [place] [address] DR HEMATOLOGY [place] [address] Jose Lange MD [address] [place] [address] DR HEMATOLOGY [place] [address] Referral ID Status Reason Start Date Expiration Date Visits Re quested Visits Authorized [id number] Closed 04/28/2022 06/24/2023 99 99 Encounter Details Date Type Department Care Team (Late st Contact Info) Description 08/28/2021 9:30 AM EDT Infusion Hematology Oncology at [address] [phone] Metastatic urothelial carcinoma; Abnormal thyroid [...] FT4 0.88 IV ACCESS: Mediport accessed at [facility] for labs, brisk blood return. Pre administration: [...] PM EDT Office Visit Hematology/Oncology at [address] [phone] Chase Mckay MD [facility] DR HEMATOLOGY [place] [address] documented as of this encounter Visit Diagnoses [...] (IV) Procedure: Accessing Implanted Vascular Access Devices (714) procedure and/or Intravenous (IV) Job Aid: Adult Flushing & Catheter Care (6936) job aid for additional information regarding guidelines [...] documented in this encounter Care Teams Assistant Floor Covering Printer Relationship Specialty Start Date End Date Eren Shah DNP PCP - General Family Medicine 03/20/21 06/10/22 documented as of this encounter
--- OUTSIDE RECORDS SUMMARY | 2023-12-08 03:38 | XMS_ITS | Encounter Summary ---
Author Organization [facility] Address [facility] [place] [address] Care Team Providers Care Rn Supplemental Name Role Phone Eren Shah DNP Primary Care Provider Encounter Details Date Type Department Care Team (Latest Contact Info) Description 05/18/2021 1:00 PM EST TH Visit (TeleHealth) Hematology/Oncology at [address] [phone] [facility] [address] [place] [address] Metastatic urothelial carcinoma Social History Tobacco Use [...] PM EDT Office Visit Hematology/Oncology at [address] [phone] Chase Mckay MD [facility] [place] [address] documented as of this encounter Visit Diagnoses Diagnosis Metastatic urothelial carcinoma Secondary malignant neoplasm of other urinary organs Primary malignant neoplasm of left lower lobe of lung Malignant neoplasm of lower lobe, bronchus, or lung Metastatic urothelial carcinoma 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
--- OUTSIDE RECORDS SUMMARY | 2023-12-08 03:38 | XMS_ITS | Encounter Summary ---
Author Organization [facility] Address [facility] [place] [address] Care Team Providers Care Vegetable Picker Name Role Phone Eren Shah CHELSEA Primary Care Provider [phone]- [phone] Reason for Referral * Diagnostic Test (Routine) - Closed Specialty Diagnoses / Procedures Referred By Contac t Referred To Contact Radiology Diagnoses Primary lung adenocarcinoma, left Metastatic urothelial carcinoma Procedures NM PET CT Skull Base to Mid-thigh Jose Lange MD [facility] DR HEMATOLOGY [place] [address] [place] [address] Referral ID Status Reason Start Date Expiration Date V isits Requested Visits Authorized [id number] Closed Specialty Service Requested 07/17/2021 01/17/2023 1 1 * Consultation (Routine) - Closed Specialty Diagnoses / Procedures Referred By Contac t Referred To Contact Hematology and Oncology Diagnoses Primary lung adenocarcinoma, left Jose Lange MD [facility] DR HEMATOLOGY [place] [address] Chase Mckay MD [facility] DR HEMATOLOGY [place] [address] Referral ID Status Reason Start Date Expiration Date V isits Requested Visits Authorized [id number] Closed Consult, Test & Treat 07/17/2021 07/17/2022 1 1 Reason for Visit * Reason Comments Follow-up Encounter Details Date Type Department Care Team (Late st Contact Info) Description 07/17/2021 10:00 AM EDT Office Visit Hematology/Oncology at [address] [phone] Jose Lange MD [facility] DR HEMATOLOGY [place] [address] Abena Ogden RN Metastatic urothelial carcinoma (Primary [...] not included. Hematology & Medical Oncology [address] [address] Barb returns today to continue [...] distinct lung primary. She was seen by share dairy farmer , who recommended rigid bronchoscopy with attempts [...] for adenocarcinoma of lung origin Social History: 33-qyeh-bagz smoking history quit 6 years ago, does [...] The assay was performed according to the blade filer's ??instructions using Anti-PD-L1 (22C3, pharmDX) antibody. Electronically signed by: ?Herbert Ford MD Verified: ??04/11/2021 8:14 ?? Pathologist Performed at: ??-[facility] Dept. of Pathology, [place], [place] ? Surgical Pathology DIAGNOSIS A - Lung, ??left lower lobe mass, debulking: ?? - Adenocarcinoma, consistent with lung primary. Electronically signed by: ?Sana Dowell MD Verified: ??04/06/2021 11:16 ??Pathologist Performed at: ??-[facility] Dept. of Pathology, [place], [place] DISCUSSION Sections show an invasive, predominantly [...] of presumably metastatic urothelial carcinoma which include paimiut based chemotherapy versus immunotherapy. Due to her [...] February 2021 Her molecular pathology demonstrated somatic K-ximoara mutation. I do not know if Sotorasib [...] questions/concerns or new symptoms. Abena Ogden MSN, APPLICATION SPECIALIST, AOCNP Medical Oncology documented in this encounter Plan of Treatment Upcoming Encounters Date Type Department Care Team (Late st Contact Info) Description 12/08/2023 3:30 PM EDT Office Visit Hematology/Oncology at [address] [phone] Chase Mckay MD [facility] DR HEMATOLOGY [place] [address] Scheduled Referrals Name Type Priority Associated Diagnoses [...] questions please contact the health direct care provider that requested your imaging first. ? Electronically signed by: Ed Barajas MD, [facility] ([phone]), at 08/06/2021 11:05 AM Narrative 08/06/2021 11:05 AM EDT EXAMINATION: NM PET CT STANDARD SKULL BASE TO MID-THIGH CLINICAL HISTORY: Urologic cancer, assess treatment response - Include more detail below Restaging of metastatic urothelial carcinoma and primary lung cancer Currently on Pembrolizumab. Status post 5 cycles of chemotherapy. Subsequent treatment evaluation. TECHNIQUE: Following IV injection of 77-lcdldk-9-deoxyglucose (FDG) a standard uptake of approximately 60 [...] treatment evaluation. TECHNIQUE: Following IV injection of 15-cwvhsl-7-deoxyglucose (FDG) astandard uptake of approximately 60 minutes, [...] nodes in the left periaortic region (axial [id number]), decreased in size and intensity compared to [...] patients who have questions please contactthe health direct care provider that requested your imaging first. Electronically signed by: Ed Barajas MD, [facility]([phone]), at 08/06/2021 11:05 AM Jose Lange MD [...] pleura documented in this encounter Care Teams Vegetable Picker Relationship Specialty Start Date End Date Eren Shah DNP PCP - General Family Medicine 03/20/21 06/10/22 documented as of this encounter
--- OUTSIDE RECORDS SUMMARY | 2023-12-08 03:38 | XMS_ITS | Encounter Summary ---
Author Organization [facility] Address [facility] [place] [address] Care Team Providers Care Mental Health Professional Name Role Phone Eren Shah CHELSEA Primary Care Provider [phone] [phone] Reason for Visit * Consultation (Routine) - Closed Specialty Diagnoses / Procedures Referred By Etta t Referred To Contact Urology Diagnoses Metastatic urothelial carcinoma 05/08/21 - [facility] - METASTATIC UROTHELIAL CA Abena Ogden RN [address] [place] [address] [place] [address] Nasim Beckwith MD [facility] [place] [address] Referral ID Status Reason Start Date Expiration Date V isits Requested Visits Authorized [id number] Closed Consult, Test & Treat 04/18/2021 04/18/2022 1 1 Encounter Details Date Type Department Care Team (Latest Contact Info) Description 06/08/2021 1:00 PM EST TH Visit (TeleHealth) [place] [address] Nasim Beckwith MD [facility] [place] [address] Malignant neoplasm of urinary bladder, unspecified site [...] consent to receiving health care services at [facility] through telemedicine. The patient acknowledges that the [...] IR Mediport Placement 04/02/2021 Yuval Sinclair PA [facility] INTERVENTIONL RAD ??? IR NEPHROSTOMY TUBE PLACEMENT PERCUTANEOUS BILATERAL 02/20/2021 IR Nephrostomy Tube Placement Percutaneous Bilateral [facility] INTERVENTIONL RAD ? ? PRO [facility] EBUS GUIDED SAMPL 3/> NODE STATION/STRUX N/A 04/04/2021 BRONCH, W ENDOBRONCHIAL ULTRASOUND (EBUS) GUIDED SAMPLING, 3+ NODES (WRVU 5.21) performed by Alonzo Cevallos MD at [facility] MAIN OR ??? PRO BRONCHOSCOPY, DIAGNOSTIC W LAVAGE N/A 04/04/2021 BRONCHOSCOPY, RIGID OR FLEXIBLE, WITH BRONCHIAL ALVEOLAR LAVAGE (WRVU 2.88) performed by Alonzo Cevallos MD at [facility] MAIN OR Social History Socioeconomic History ??? 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
--- OUTSIDE RECORDS SUMMARY | 2023-12-08 03:38 | XMS_ITS | Encounter Summary ---
Author Organization [facility] [place] [address] Care Team Providers Care Process Improvement Analyst Name Role Phone Eren Shah CHELSEA Primary Care Provider [phone] [phone] Reason for Visit * Reason Comments Chemotherapy Cycle 6 Day 1 Pembro lizumab * Treatment/Therapy Plan Authorization (Routine) - Closed Specialty Diagnoses / Procedures Referred By Contac t Referred To Contact Hematology and Oncology Diagnoses Metastatic urothelial carcinoma Abnormal thyroid function test Procedures [id number] Jose Barnhart MD [address] [place] [address] [place] [address] Jose Lange MD [address] [place] [address] [place] [address] Referral ID Status Reason Start Date Expiration Date Visits Re quested Visits Authorized [id number] Closed 04/28/2022 06/24/2023 99 99 Encounter Details Date Type Department Care Team (Late st Contact Info) Description 08/07/2021 9:30 AM EDT Infusion Hematology Oncology at [address] [phone] Metastatic urothelial carcinoma; Abnormal thyroid [...] FT4 0.79 IV ACCESS: Mediport accessed at [facility] for labs, brisk blood return. [...] PM EDT Office Visit Hematology/Oncology at [address] [phone] Chase Mckay MD [facility] DR [place]OLOG[place] [address] documented as of this encounter [...] (IV) Procedure: Accessing Implanted Vascular Access Devices (584) procedure and/or Intravenous (IV) Job Aid: Adult Flushing & Catheter Care (8733) job aid for additional information regarding guidelines [...] 0926, Until Fri08/07/21 at 1244, Line Care, Flush pertains to all indwelling lines. Flush per protocol found in the job aid using the link provided on this medication record. Refer to Intravenous (IV) Job Aid: Adult Flushing & Catheter Care (5471) job aid for additional information regarding guidelines and administration., Routine Given 08/07/2021 10:38 AM EDT 20 mLs documented in this encounter Care Teams Process Improvement Analyst Relationship Specialty Start Date End Date Eren Shah DNP PCP - General Family Medicine 03/20/21 06/10/22 documented as of this encounter
--- OUTSIDE RECORDS SUMMARY | 2023-12-08 03:38 | XMS_ITS | Encounter Summary ---
Author Organization [facility] [place] [address] Care Team Providers Care Sales Manager [place] Name Role Phone Eren Shah CHELSEA Primary Care Provider [phone] [phone] Reason for Visit * Reason Comments Chemotherapy Cycle 2, Day 1; Pemb ro * Treatment/Therapy Plan Authorization (Routine) - Closed Specialty Diagnoses / Procedures Referred By Contac t Referred To Contact Hematology and Oncology Diagnoses Metastatic urothelial carcinoma Abnormal thyroid function test Procedures [id number] Jose Barnhart MD [address] [place] [address] DR [place] [address] Jose Lange MD [address] [place] [address] DR [place]EM[place]Y [place] [address] Referral ID Status Reason Start Date Expiration Date Visits Re quested Visits Authorized [id number] Closed 04/28/2022 06/24/2023 99 99 Encounter Details Date Type Department Care Team (Late st Contact Info) Description 05/15/2021 10:30 AM EST Infusion Hematology Oncology at [address] [phone] Metastatic urothelial carcinoma; Abnormal thyroid [...] as of this encounter Progress Notes * aRsheed Roper, RN - 05/15/2021 10:30 AM EST [...] Office Visit Hematology/Oncology at [address] [phone] Chase Mckay MD [facility] [place] [address] documented as of this encounter Visit Diagnoses [...] Job Aid: Adult Flushing & Catheter Care (3138) job aid for additional information regarding guidelines [...] PRN, Starting on Fri05/15/21 at 1046, Until 05/15/21 at 1413, Line Care, Flush pertains to all indwelling lines. Flush per protocol found in the job aid using the link provided on this medication record. Refer to Intravenous (IV) Job Aid: Adult Flushing & Catheter Care (5855) job aid for additional information regarding guidelines and administration., Routine Given 05/15/2021 11:48 AM EST 20 mLs documented in this encounter Care Teams Sales Manager [place] Relationship Specialty Start Date End Date Eren Shah DNP PCP - General Family Medicine 03/20/21 06/10/22 documented as of this encounter
--- OUTSIDE RECORDS SUMMARY | 2023-12-08 03:38 | XMS_ITS | Encounter Summary ---
Author Organization [facility] Address [facility] [place] [address] Care Team Providers Care Territory Development Manager Name Role Phone Eren Shah DNP Primary Care Provider [phone] Encounter Details Date Type Department Care Team (Late st Contact Info) Description 07/20/2021 Orders Only [place]ematology [place] [phone] Jose Lange MD [facility] DR [place] [address] Anemia of chronic disease (Primary Dx) Social [...] PM EDT Office Visit Hematology/Oncology at [address] [phone] Chase Mckay MD [facility] DR [place] [address] documented as of this encounter Visit Diagnoses Diagnosis Anemia of chronic disease- Primary Anemia of other chronic disease Primary malignant neoplasm of left lower lobe of lung Malignant neoplasm of lower lobe, bronchus, or lung Metastatic urothelial carcinoma 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
--- OUTSIDE RECORDS SUMMARY | 2023-12-08 03:38 | XMS_ITS | Encounter Summary ---
Author Organization [facility] Address [facility] [place] [address] Care Team Providers Care Scagliola Mechanic Name Role Phone Eren Shah DNP Primary Care Provider [phone] Encounter Details Date Type Department Care Team (Late st Contact Info) Description 10/01/2021 Orders [place] [address] Axel Raya MD [facility] [place] [address] Social History Tobacco Use Types Packs/Day Years [...] IR Mediport Placement 04/02/2021 Yuval Sinclair PA [facility] INTERVENTIONL RAD ??? IR NEPHROSTOMY TUBE PLACEMENT PERCUTANEOUS BILATERAL 02/20/2021 IR Nephrostomy Tube Placement Percutaneous Bilateral [facility] INTERVENT[facility] RAD ??? IR NEPHROURETERAL (NU) STENT PLACEMENT/CHECK/CHANGE 07/13/2021 IR Nephroureteral (NU) Stent Placement Check/Change 07/13/2021 Alexis De La Cruz MD [facility] INTERVENTIONLRAD ? ? PRO [facility] EBUS GUIDED SAMPL 3/> NODE STATION/STRUX N/A 04/04/2021 BRONCH, W ENDOBRONCHIAL ULTRASOUND (EBUS) GUIDED SAMPLING, 3+ NODES (WRVU 5.21) performed by Alonzo Cevallos MD at [facility] MAIN OR ??? PRO BRONCHOSCOPY, DIAGNOSTIC W LAVAGE N/A 04/04/2021 BRONCHOSCOPY, RIGID OR FLEXIBLE, WITH BRONCHIAL ALVEOLAR LAVAGE (WRVU 2.88) performed by Alonzo Cevallos MD at [facility] MAIN OR Medications: Current Outpatient Medications [...] Office Visit Hematology/Oncology at [address] [phone] Chase Mckay MD [facility] DR HEMATOLOGY [place] [address] documented as of this encounter Visit Diagnoses Not on filedocumented in this encounter Care Teams Scagliola Mechanic Relationship Specialty Start Date End Date Eren Shah DNP PCP - General Family Medicine 03/20/21 06/10/22 documented as of this encounter
--- OUTSIDE RECORDS SUMMARY | 2023-12-08 03:38 | XMS_ITS | Encounter Summary ---
Author Organization [facility] Address [facility] [place] [address] Care Team Providers Care Build Manager Name Role Phone Eren Shah DNP Primary Care Provider [phone] Encounter Details Date Type Department Care Team (Late st Contact Info) Description 08/07/2021 Notes Only Hematology/Oncology at [address] [phone] Elizabeth Mccray, [facility] OFFICE OF CARE MANAGEMENT Social History Tobacco [...] new needs. Offered support. Reminded pt of ENDODONTICS DENTIST availability and contact information. Will continue to follow as indicated. Brief assessment Supportive Counseling documented in this encounter Plan of Treatment Upcoming Encounters Date Type Department Care Team (Late st Contact Info) Description 12/08/2023 3:30 PM EDT Office Visit Hematology/Oncology at [address] [phone] Chase Mckay MD [facility] DR HEMATOLOGY [place] [address] documented as of this encounter Visit Diagnoses Not on filedocumented in this encounter Care Teams Build Manager Relationship Specialty Start Date End Date Eren Shah DNP PCP - General Family Medicine 03/20/21 06/10/22 documented as of this encounter
--- OUTSIDE RECORDS SUMMARY | 2023-12-08 03:38 | XMS_ITS | Encounter Summary ---
Author Organization [facility] [place] [address] Care Team Providers Care Tire Layer Name Role Phone Eren Shah CHELSEA Primary Care Provider +1 [phone] Reason for Visit * Reason Comments Chemotherapy Pembrolizumab * Treatment/Therapy Plan Authorization (Routine) - Closed Specialty Diagnoses / Procedures Referred By Contac t Referred To Contact Hematology and Oncology Diagnoses Metastatic urothelial carcinoma Abnormal thyroid function test Procedures [id number] Jose Barnhart MD [address] [place] [address] DR H[place]Y [place] [address] Jose Lange MD [address] [place] [address] DR HEMATOLOGY [place] [address] Referral ID Status Reason Start Date Expiration Date Visits Re quested Visits Authorized [id number] Closed 04/28/2022 06/24/2023 99 99 Encounter Details Date Type Department Care Team (Late st Contact Info) Description 10/09/2021 9:30 AM EDT Infusion Hematology Oncology at [address] [phone] Metastatic urothelial carcinoma; Abnormal thyroid [...] OBJECTIVE LAB DATA: Labs drawn today at [facility] and reviewed by this RN. No holds [...] PM EDT Office Visit Hematology/Oncology at [address] [phone] Chase Mckay MD [facility] DR [place] [address] documented as of this encounter Visit Diagnoses [...] (IV) Procedure: Accessing Implanted Vascular Access Devices (134) procedure and/or Intravenous (IV) Job Aid: Adult Flushing & Catheter Care (2773) job aid for additional information regarding guidelines [...] Job Aid: Adult Flushing & Catheter Care (4431) job aid for additional information regarding guidelines and administration., Routine Given 10/09/2021 10:59 AM EDT 20 mLs documented in this encounter Care Teams Tire Layer Relationship Specialty Start Date End Date Eren Shah DNP PCP - General Family Medicine 03/20/21 06/10/22 documented as of this encounter
--- OUTSIDE RECORDS SUMMARY | 2023-12-08 03:38 | XMS_ITS | Encounter Summary ---
Author Organization [facility] Address [facility] [place] [address] Care Team Providers Care Hangar Attendant Name Role Phone Eren Shah DNP Primary Care Provider Encounter Details Date Type Department Care Team (Late st Contact Info) Description 08/28/2021 9:00 AM EDT Office Visit Hematology/Oncology at [address] [phone] Jose Lange MD [facility] DR [place] [address] Abena Ogden, RN Metastatic urothelial carcinoma; Abnormal [...] were not included. Hematology & Medical Oncology [address] [address] Barb returns today to continue [...] distinct lung primary. She was seen by accounts receivable accountant , who recommended rigid bronchoscopy withattempts to [...] changes since last visit 04/26/21-05/01/21 admission to [facility] with pneumonia, Pulmonary hypertension/CHF, BRITNI 04/16/2021 nephrostomy catheter exchange 04/04/21 bronchoscopy and tumor debulking- endobronchial biopsies positive for adenocarcinoma of lung origin Social History: 60-uams-bewr smoking history quit 6 years ago, does [...] The assay was performed according to the software implementation project manager's ??instructions using Anti-PD-L1 (22C3, pharmDX) antibody. Electronically signed by: ?Herbert Ford MD Verified: ??04/11/2021 8:14 ?? Pathologist Performed at: ??-[facility] Dept. of Pathology, [place], [place] ? Surgical Pathology DIAGNOSIS A - Lung, ??left lower lobe mass, debulking: ?? - Adenocarcinoma, consistent with lung primary. Electronically signed by: ?Sana Dowell MD Verified: ??04/06/2021 11:16 ??Pathologist Performed at: ??-[facility] Dept. of Pathology, [place], [place] DISCUSSION Sections show an invasive, predominantly [...] of presumably metastatic urothelial carcinoma which include [place]urg based chemotherapy versus immunotherapy. Due to her [...] PM EDT Office Visit Hematology/Oncology at [address] [phone] Chase Mckay MD [facility] DR [place] [address] documented as of this encounter Visit Diagnoses [...] pleura documented in this encounter Care Teams Hangar Attendant Relationship Specialty Start Date End Date Eren Shah DNP PCP - General Family Medicine 03/20/21 06/10/22 documented as of this encounter
--- OUTSIDE RECORDS SUMMARY | 2023-12-08 03:38 | XMS_ITS | Encounter Summary ---
Author Organization [place] [address] Care Team Providers Care Informatics Manager Name Role Phone Eren Shah CHELSEA Primary Care Provider +1 [phone] Reason for Visit * Reason Comments Chemotherapy Cycle 5, Day 1 * Treatment/Therapy Plan Authorization (Routine) - Closed Specialty Diagnoses / Procedures Referred By Contac t Referred To Contact Hematology and Oncology Diagnoses Metastatic urothelial carcinoma Abnormal thyroid function test Procedures [id number] Jose Barnhart MD [address] [place] [address] DR HEMATOLOGY [place] [address] Jose Lange MD [address] [place] [address] DR HEMATOLOGY [place] [address] Referral ID Status Reason Start Date Expiration Date Visits Re quested Visits Authorized [id number] Closed 04/28/2022 06/24/2023 99 99 Encounter Details Date Type Department Care Team (Late st Contact Info) Description 07/17/2021 10:30 AM EDT Infusion Hematology Oncology at [address] [phone] Metastatic urothelial carcinoma; Abnormal thyroid [...] to treat. LAB DATA: [facility] at [facility], no holds. IV ACCESS: [facility] PM EDT Office Visit Hematology/Oncology at [address] [phone] Chase Mckay MD [facility] DR HEMATOLOGY [place] [address] documented as of this encounter Visit Diagnoses [...] (IV) Procedure: Accessing Implanted Vascular Access Devices (404) procedure and/or Intravenous (IV) Job Aid: Adult Flushing & Catheter Care (2864) job aid for additional information regarding guidelines [...] Job Aid: Adult Flushing & Catheter Care (4118) job aid for additional information regarding guidelines and administration., Routine Given 07/17/2021 12:09 PM EDT 20 mLs sodium chloride 0.9% infusion 100 mL/hr, Intravenous, CONTINUOUS, Starting on Fri07/17/21 at 1130, Until Fri07/17/21 at 1429 New Bag 07/17/2021 11:30 AM EDT 100 mL/hr 100 mL/hr documented in this encounter Care Teams Informatics Manager Relationship Specialty Start Date End Date Eren Shah DNP PCP - General Family Medicine 03/20/21 06/10/22 documented as of this encounter
--- OUTSIDE RECORDS SUMMARY | 2023-12-08 03:38 | XMS_ITS | Encounter Summary ---
Author Organization [facility] Address [facility] [place] [address] Care Team Providers Care Detailer Furniture Name Role Phone Eren Shah DNP Primary Care Provider Encounter Details Date Type Department Care Team (Late st Contact Info) Description 07/17/2021 Refill Hematology/Oncology at [address] [phone] Jose Lange MD [facility] DR [place] [address] Metastatic urothelial carcinoma Social History Tobacco Use [...] PM EDT Office Visit Hematology/Oncology at [address] [phone] Chase Mckay MD [facility] DR [place] [address] documented as of this encounter Visit Diagnoses Diagnosis Metastatic urothelial carcinoma Secondary malignant neoplasm of other urinary organs Primary malignant neoplasm of left lower lobe of lung Malignant neoplasm of lower lobe, bronchus, or lung Metastatic urothelial carcinoma 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
--- OUTSIDE RECORDS SUMMARY | 2023-12-08 03:38 | XMS_ITS | Encounter Summary ---
Author Organization [facility] Address [facility] [place] [address] Care Team Providers Care Copper Plater Name Role Phone Eren Shah DNP Primary Care Provider +1 [phone] Encounter Details Date Type Department Care Team (Late st Contact Info) Description 05/15/2021 10:00 AM EST Office Visit Hematology/Oncology at [address] [phone] Jose Lange MD [facility] DR HEMATOLOGY [place] [address] Abena Ogden, RN Metastatic urothelial carcinoma; Abnormal [...] lung primary. She was seen by tool and cutter grinder , who recommended rigid bronchoscopy with attempts [...] for back pain. PMH: 04/26/21-05/01/21 admission to [facility] with pneumonia, Pulmonary hypertension/CHF, BRITNI 04/16/2021 nephrostomy catheter exchange 04/04/21 bronchoscopy and tumor debulking- endobronchial biopsies positive for adenocarcinoma of lung origin Social History: 65-vcyk-irud smoking history quit 6 years ago, does [...] The assay was performed according to the drum puller's ??instructions using Anti-PD-L1 (22C3, pharmDX) antibody. Electronically signed by: ?Herbert Ford MD Verified: ??04/11/2021 8:14 ?? Pathologist Performed at: ??-[facility] [place] [place], [place], [place] ? Surgical Pathology DIAGNOSIS A - Lung, ??left lower lobe mass, debulking: ?? - Adenocarcinoma, consistent with lung primary. Electronically signed by: ?Sana Dowell MD Verified: ??04/06/2021 11:16 ??Pathologist Performed at: ??-[facility] [place]. [place], [place], [place] DISCUSSION Sections show an invasive, predominantly [...] of presumably metastatic urothelial carcinoma which include [place] based chemotherapy versus immunotherapy. Due to her [...] PM EDT Office Visit Hematology/Oncology at [address] [phone] Chase Mckay MD [facility] DR HEMATOLOGY AND [place] [address] documented as of this encounter Visit Diagnoses [...] pleura documented in this encounter Care Teams Copper Plater Relationship Specialty Start Date End Date Eren Shah DNP PCP - General Family Medicine 03/20/21 06/10/22 documented as of this encounter
--- OUTSIDE RECORDS SUMMARY | 2023-12-08 03:38 | XMS_ITS | Encounter Summary ---
Author Organization [facility] [address] Care Team Providers Care Pond Supervisor Name Role Phone Eren Shah CHELSEA Primary Care Provider +1 [phone] Reason for Visit * Reason Comments IV Medication Pembrolizumab, C3D1 * Treatment/Therapy Plan Authorization (Routine) - Closed Specialty Diagnoses / Procedures Referred By Contac t Referred To Contact Hematology and Oncology Diagnoses Metastatic urothelial carcinoma Abnormal thyroid function test Procedures [id number] Jose Barnhart MD [address] [place] [address] [place] [address] Jose Lange MD [address] [place] [address] [place] [address] Referral ID Status Reason Start Date Expiration Date Visits Re quested Visits Authorized [id number] Closed 04/28/2022 06/24/2023 99 99 Encounter Details Date Type Department Care Team (Late st Contact Info) Description 06/05/2021 10:00 AM EST Infusion Hematology Oncology at [address] [phone] Metastatic urothelial carcinoma; Abnormal thyroid [...] BUN/Cr 21/1.5 IV ACCESS: mediport accessed at [facility] for labs, brisk blood return. Pre [...] PM EDT Office Visit Hematology/Oncology at [address] [phone] Chase Mckay MD [facility] DR [place] [address] documented as of this encounter Visit Diagnoses [...] Job Aid: Adult Flushing & Catheter Care (6881) job aid for additional information regarding guidelines [...] Job Aid: Adult Flushing & Catheter Care (5881) job aid for additional information regarding guidelines and administration., Routine Given 06/05/2021 11:32 AM EST 20 mLs sodium chloride 0.9% infusion 100 mL/hr, Intravenous, CONTINUOUS, Starting on Fri06/05/21 at 1045, Until Fri06/05/21 at 1610 New Bag 06/05/2021 10:52 AM EST 100 mL/hr 100 mL/hr documented in this encounter Care Teams Pond Supervisor Relationship Specialty Start Date End Date Eren Shah DNP PCP - General Family Medicine 03/20/21 06/10/22 documented as of this encounter
--- OUTSIDE RECORDS SUMMARY | 2023-12-08 03:38 | XMS_ITS | Encounter Summary ---
[place] [address] Care Team Providers Care Systems Engineering Manager Name Role Phone Eren Shah CHELSEA Primary Care Provider [phone]- [phone] Reason for Referral * Diagnostic Test (Routine) - Closed Specialty Diagnoses / Procedures Referred By Contac t Referred To Contact Radiology Diagnoses Primary lung adenocarcinoma, left Metastatic urothelial carcinoma Procedures NM PET CT Skull Base to Mid-thigh Jose Lange MD [facility] DR HEMATOLOGY [place] [address] [place] [address] Referral ID Status Reason Start Date Expiration Date V isits Requested Visits Authorized [id number] Closed Specialty Service Requested 07/17/2021 01/17/2023 1 1 Reason for Visit * Diagnostic Test (Routine) - Closed Specialty Diagnoses / Procedures Referred By Contac t Referred To Contact Radiology Diagnoses Primary lung adenocarcinoma, left Metastatic urothelial carcinoma Procedures NM PET CT Skull Base to Mid-thigh Jose Lange MD [facility] DR HEMATOLOGY [place] [address] [facility] [place] [address] Referral ID Status Reason Start Date Expiration Date V isits Requested Visits Authorized [id number] Closed Specialty Service Requested 07/17/2021 01/17/2023 1 1 Encounter Details Date Type Department Care Team (Latest Contact Info) Description 08/03/2021 12:38 PM EDT Hospital Encounter Nuclear Medicine at [facility] [place] [address] Jose Lange MD [facility] DR HEMATOLOGY [place] [address] Primary lung adenocarcinoma, left; Metastatic urothelial carcinoma [...] PM EDT Office Visit Hematology/Oncology at [address] [phone] Chase Mckay MD [facility] DR HEMATOLOGY [place] [address] documented as of this encounter Procedures Procedure [...] have questions please contact the health care rep that requested your imaging first. ? Electronically signed by: Ed Barajas MD, [facility] ([phone]), at 08/06/2021 11:05 AM Narrative 08/06/2021 11:05 AM EDT EXAMINATION: NM PET CT STANDARD SKULL BASE TO MID-THIGH CLINICAL HISTORY: Urologic cancer, assess treatment response - Include more detail below Restaging of metastatic urothelial carcinoma and primary lung cancer Currently on Pembrolizumab. Status post 5 cycles of chemotherapy. Subsequent treatment evaluation. TECHNIQUE: Following IV injection of 87-mzhtls-8-deoxyglucose (FDG) a standard uptake of approximately 60 [...] treatment evaluation. TECHNIQUE: Following IV injection of 12-jvobyl-0-deoxyglucose (FDG) astandard uptake of approximately 60 minutes, [...] who have questions please contactthe health care rep that requested your imaging first. Electronically signed by: Ed Barajas MD, [facility]([phone]), at 08/06/2021 11:05 AM Jose Lange MD IMG PET ORDERABLES * POCT Glucose (08/03/2021 12:50 PM EDT) Glucose, POC 83 65 - 199 mg/dL [facility] Comment: Supplemental ranges: <140 mg/dL before meals <180 mg/dL all other times of the day Blood 08/03/2021 12:5 0 PM EDT 08/03/2021 12:50 PM EDT Jose Lange MD POINT OF CARE TEST O RDERABLES [facility] [place] [id number] documented in this encounter Visit Diagnoses Diagnosis [...] mCi documented in this encounter Care Teams Systems Engineering Manager Relationship Specialty Start Date End Date Eren Shah DNP PCP - General Family Medicine 03/20/21 06/10/22 documented as of this encounter
--- OUTSIDE RECORDS SUMMARY | 2023-12-08 03:38 | XMS_ITS | Encounter Summary ---
Author Organization [facility] [place] [address] Care Team Providers Care Power Hair Clipper Name Role Phone Eren Shah CHELSEA Primary Care Provider [phone] Reason for Referral * Diagnostic Test (Routine) - Closed Specialty Diagnoses / Procedures Referred By Contac t Referred To Contact Radiology Diagnoses Metastatic urothelial carcinoma Procedures NM PET CT Skull Base to Mid-thigh Jose Rhoades MD [facility] [place] [address] [place] [address] Referral ID Status Reason Start Date Expiration Date V isits Requested Visits Authorized [id number] Closed Specialty Service Requested 10/09/2021 04/10/2023 1 1 Encounter Details Date Type Department Care Team (Late st Contact Info) Description 10/09/2021 9:00 AM EDT Office Visit Hematology/Oncology at [address] [phone] Jose Rhoades MD [facility] [place] [address] Tea Dimas APRN [facility] [address] Metastatic urothelial carcinoma (Primary Dx); Abnormal thyroid [...] were not included. Hematology & [place] [address] Barb returns today to continue treatment for [...] distinct lung primary. She was seen by double back operator , who recommended rigid bronchoscopy withattempts to [...] today. PMH: UTI 09/14/2009 04/26/21-05/01/21 admission to [facility] with pneumonia, Pulmonary hypertension/CHF, BRITNI 04/16/2021 nephrostomy catheter exchange 04/04/21 bronchoscopy and tumor debulking- endobronchial biopsies positive for adenocarcinoma of lung origin Social History: No interval changes since last visit 95-uiaf-msat smoking history quit 6 years ago, does [...] The assay was performed according to the hydroelectric plant maintainer's ??instructions using Anti-PD-L1 (22C3, pharmDX) antibody. Electronically signed by: ?Herbert Ford MD Verified: ??04/11/2021 8:14 ?? Pathologist Performed at: ??-[facility] Dept. of [place]ology, [place], [place] ? Surgical Pathology DIAGNOSIS A - Lung, ??left lower lobe mass, debulking: ?? - Adenocarcinoma, consistent with lung primary. Electronically signed by: ?Sana Dowell MD Verified: ??04/06/2021 11:16 ??Pathologist Performed at: ??-[facility] Dept. of Pathology, [place], [place] DISCUSSION Sections show an invasive, predominantly [...] of presumably metastatic urothelial carcinoma which include cahto based chemotherapy versus immunotherapy. Due to her [...] PM EDT Office Visit Hematology/Oncology at [address] [phone] Chase Mckay MD [facility] DR [place] [address] documented as of this encounter Results * [...] who have questions please contact the health wound care specialist that requested your imaging first. ? Narrative 11/14/2021 10:47 AM EDT EXAMINATION: NM PET CT STANDARD SKULL BASE TO MID-THIGH CLINICAL HISTORY: Urologic cancer, assess treatment response - Include more detail below Restaging of metastatic urothelial carcinoma, patient has primary lung cancer as well. Status post 10 cycles of chemotherapy TECHNIQUE: Following IV injection of 49-sxfqgr-6-deoxyglucose (FDG) a standard uptake of approximately 60 [...] of chemotherapy TECHNIQUE: Following IV injection of 30-fbrsrb-5-deoxyglucose (FDG) astandard uptake of approximately 60 minutes, [...] patients who have questions please contactthe health wound care specialist that requested your imaging first. Jose Rhoades MD IMG PET ORDERABLES documented [...] pleura documented in this encounter Care Teams Power Hair Clipper Relationship Specialty Start Date End Date Eren Shah DNP PCP - General Family Medicine 03/20/21 06/10/22 documented as of this encounter
--- OUTSIDE RECORDS SUMMARY | 2023-12-08 03:38 | XMS_ITS | Encounter Summary ---
Author Organization [facility] Address [facility] [place] [address] Care Team Providers Care Clocksmith Name Role Phone Eren Shah DNP Primary Care Provider [phone] Encounter Details Date Type Department Care Team (Late st Contact Info) Description 07/12/2021 Orders Only Hematology/Oncology at [address] [phone] Abena Ogden, RN Metastatic urothelial [...] PM EDT Office Visit Hematology/Oncology at [address] [phone] Chase Mckay MD [facility] HEMATOLOGY [place] [address] documented as of this encounter Results * (ABNORMAL) Creatinine (07/13/2021 3:00 PM EDT) Creatinine 1.54(H) 0.70 - 1.20 mg/dL [facility] Est Glomerular Filtration Rate 34(L) >=60 mL/min/1. 73 m?? [facility] Comment: This patient? 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
--- OUTSIDE RECORDS SUMMARY | 2023-12-08 03:38 | XMS_ITS | Encounter Summary ---
Author Organization [facility] [place] [address] Care Team Providers Care Bone Char Puller Name Role Phone Eren Shah CHELSEA Primary Care Provider [phone] Reason for Visit * Reason Comments Chemotherapy Cycle 4, Day 1 - Pem brolizumab * Treatment/Therapy Plan Authorization (Routine) - Closed Specialty Diagnoses / Procedures Referred By Contac t Referred To Contact Hematology and Oncology Diagnoses Metastatic urothelial carcinoma Abnormal thyroid function test Procedures [id number] Jose Barnhart MD [address] [place] [address] DR HEMATOLOGY [place] [address] Jose Lange MD [address] [place] [address] DR HEMATOLOGY [place] [address] Referral ID Status Reason Start Date Expiration Date Visits Re quested Visits Authorized [id number] Closed 04/28/2022 06/24/2023 99 99 Encounter Details Date Type Department Care Team (Late st Contact Info) Description 06/26/2021 10:30 AM EST Infusion Hematology Oncology at [address] [phone] Metastatic urothelial carcinoma; Abnormal thyroid [...] - 3.25/0.85 IV ACCESS: mediport accessed at [facility] for labs, brisk blood return. Pre [...] PM EDT Office Visit Hematology/Oncology at [address] [phone] Chase Mckay MD [facility] DR HEMATOLOGY [place] [address] documented as of this encounter Visit Diagnoses [...] (IV) Procedure: Accessing Implanted Vascular Access Devices (774) procedure and/or Intravenous (IV) Job Aid: Adult Flushing & Catheter Care (4908) job aid for additional information regarding guidelines and administration., Routine Given 06/26/2021 12:51 PM EST 500 Units pembrolizumab (Keytruda) 200 mg in sodium chloride 0.9% 108 mL infusion 200 mg, Intravenous, ONCE, 1 dose, On 06/26/21 at 1215, Administer over 30 Minutes, Flush [...] Job Aid: Adult Flushing & Catheter Care (4533) job aid for additional information regarding guidelines and administration., Routine Given 06/26/2021 12:50 PM EST 20 mLs sodium chloride 0.9% infusion 100 mL/hr, Intravenous, CONTINUOUS, Starting on Fri06/26/21 at 1200, Until Fri06/26/21 at 1537 New Bag 06/26/2021 11:45 AM EST 100 mL/hr 100 mL/hr documented in this encounter Care Teams Bone Char Puller Relationship Specialty Start Date End Date Eren Shah DNP PCP - General Family Medicine 03/20/21 06/10/22 documented as of this encounter
--- OUTSIDE RECORDS SUMMARY | 2023-12-08 03:38 | XMS_ITS | Encounter Summary ---
[place] [address] Care Team Providers Care Liturgical Music Director Name Role Phone Eren Shah DNP Primary Care Provider [phone] Encounter Details Date Type Department Care Team (Latest Contact Info) Description 07/13/2021 2:50 PM EDT Laboratory Appointment Lab [address] [place] [address] Metastatic urothelial carcinoma; Anemia of [...] PM EDT Office Visit Hematology/Oncology at [address] [phone] Chase Mckay MD [facility] DR HEMATOLOGY [place] [address] documented as of this encounter Procedures Procedure [...] EDT) Ferritin 527(H) 30 - 400 ng/mL [facility] Comment: Pediatric reference ranges not verified at [facility], interpret with caution. Reference ranges for females greater than 50 years of age approach values for men, i.e., 30-400 ng/mL. Blood 07/13/2021 3:00 PM EDT 07/13/2021 3:12 PM EDT Narrative Resulting Agency Comment Spec In Lab Abena Ogden RN CHEMISTRY ORDERABLES Performing Organization Address [facility] Co de Phone Number [facility] [place] [address] * (ABNORMAL) Iron and TIBC (07/13/2021 3:00 PM EDT) Iron 20(L) 30 - 150 mcg/dL [facility] TIBC 199(L) 250 - 450 mcg/dL [facility] Iron Saturation 10(L) 20 - 50 % [facility] Blood 07/13/2021 3:00 PM EDT 07/13/2021 3:12 PM EDT Narrative Resulting Agency Comment Spec In Lab Abena Ogden RN CHEMISTRY ORDERABLES Performing Organization Address [facility] Co de Phone Number [facility] [place] [address] * (ABNORMAL) Creatinine (07/13/2021 3:00 PM EDT) Creatinine 1.54(H) 0.70 - 1.20 mg/dL [facility] Est Glomerular Filtration Rate 34(L) >=60 mL/min/1. 73 m?? [facility] Comment: This patient? 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
--- OUTSIDE RECORDS SUMMARY | 2023-12-08 03:38 | XMS_ITS | Encounter Summary ---
[place] [address] Care Team Providers Care Shovel Oiler Name Role Phone Eren Shah DNP Primary Care Provider [phone] Reason for Referral * Diagnostic Test (Routine) - Closed Specialty Diagnoses / Procedures Referred By Contac t Referred To Contact Radiology Diagnoses Metastatic urothelial carcinoma Procedures CT Chest Abdomen Pelvis w Contrast (Generic) Abena Ogden RN [address] [place] [address] [place] [address] [facility] [place] [address] Referral ID Status Reason Start Date Expiration Date V isits Requested Visits Authorized [id number] Closed Specialty Service Requested 06/26/2021 12/27/2022 1 1 Encounter Details Date Type Department Care Team (Late st Contact Info) Description 06/26/2021 10:00 AM EST Office Visit Hematology/Oncology at [address] [phone] Jose Lange MD [facility] [address] [place] [address] Abena Ogden, RN Metastatic urothelial [...] this encounter Progress Notes * Abena Ogden, SAILING INSTRUCTOR - 06/26/2021 10:00 AM EST Images from the original note were not included. Hematology & Medical Oncology [address] [address] Barb returns today to continue [...] distinct lung primary. She was seen by major donor coordinator , who recommended rigid bronchoscopy with attempts [...] focal complaints today. PMH: 04/26/21-05/01/21 admission to [facility] with pneumonia, Pulmonary hypertension/CHF, BRITNI 04/16/2021 nephrostomy catheter exchange 04/04/21 bronchoscopy and tumor debulking- endobronchial biopsies positive for adenocarcinoma of lung origin Social History: [id number] smoking history quit 6 years ago, does [...] The assay was performed according to the glass science engineer's ??instructions using Anti-PD-L1 (22C3, pharmDX) antibody. Electronically signed by: ?Herbert Ford MD Verified: ??04/11/2021 8:14 ?? Pathologist Performed at: ??-[facility] Dept. of Pathology, [place], [place] ? Surgical Pathology DIAGNOSIS A - Lung, ??left lower lobe mass, debulking: ?? - Adenocarcinoma, consistent with lung primary. Electronically signed by: ?Sana Dowell MD Verified: ??04/06/2021 11:16 ??Pathologist Performed at: ??-[facility] Dept. of Pathology, [place], [place] DISCUSSION Sections show an invasive, predominantly [...] of presumably metastatic urothelial carcinoma which include afognak based chemotherapy versus immunotherapy. Due to her [...] questions/concerns or new symptoms. Abena Ogden MSN, SAILING INSTRUCTOR, AOCNP Medical Oncology documented in this encounter Plan of Treatment Upcoming Encounters Date Type Department Care Team (Late st Contact Info) Description 12/08/2023 3:30 PM EDT Office Visit Hematology/Oncology at [address] [phone] Chase Mckay MD [facility] [address] [place] [address] documented as of this encounter Results * [...] who have questions please contact the health resident care director that requested your imaging first. ? Electronically signed by: Kang Ybarra MD, [facility] ([phone]), at 07/14/2021 2:41 PM Narrative 07/14/2021 2:41 [...] patients who have questions please contactthe health resident care director that requested your imaging first. Electronically signed by: Kang Ybarra MD, [facility]([phone]), at 07/14/2021 2:41 PM Abena Ogden RN IMG CT ORDERABLES * (ABNORMAL) Iron and TIBC (07/13/2021 3:00 PM EDT) Iron 20(L) 30 - 150 mcg/dL [facility] TIBC 199(L) 250 - 450 mcg/dL [facility] Iron Saturation 10(L) 20 - 50 % [facility] Blood 07/13/2021 3:00 PM EDT 07/13/2021 3:12 PM EDT Narrative Resulting Agency Comment Spec In Lab Abena Ogden RN CHEMISTRY ORDERABLES Performing Organization Address City/[facility]/ZIP Co de Phone Number [facility] [place] [address] * (ABNORMAL) Ferritin (07/13/2021 3:00 PM EDT) Ferritin 527(H) 30 - 400 ng/mL [facility] Comment: Pediatric reference ranges not verified at [facility], interpret with caution. Reference ranges for females greater than 50 years of age approach values for men, i.e., 30-400 ng/mL. Blood 07/13/2021 3:00 PM EDT 07/13/2021 3:12 PM EDT Narrative Resulting Agency Comment Spec In Lab Abena Ogden RN CHEMISTRY ORDERABLES Performing Organization Address City/[facility] Co de Phone Number [facility] [place] [address] documented in this encounter Visit Diagnoses Diagnosis [...] pleura documented in this encounter Care Teams Shovel Oiler Relationship Specialty Start Date End Date Eren Shah DNP PCP - General Family Medicine 03/20/21 06/10/22 documented as of this encounter
--- OUTSIDE RECORDS SUMMARY | 2023-12-08 03:38 | XMS_ITS | Encounter Summary ---
[place] [address] Care Team Providers Care Senior Enterprise Architect Name Role Phone Eren Shah CHELSEA Primary Care Provider Reason for Referral * Diagnostic Test (Routine) - Closed Specialty Diagnoses / Procedures Referred By Contac t Referred To Contact Radiology Diagnoses Metastatic urothelial carcinoma Procedures IR Nephroureteral (NU) Stent Placement Check/Change Guillermo Nice MD [facility] [place] [address] [facility] [address] Referral ID Status Reason Start Date Expiration Date V isits Requested Visits Authorized [id number] Closed Specialty Service Requested 04/16/2021 10/15/2022 1 1 Reason for Visit * Diagnostic Test (Routine) - Closed Specialty Diagnoses / Procedures Referred By Contac t Referred To Contact Radiology Diagnoses Metastatic urothelial carcinoma Procedures IR Nephroureteral (NU) Stent Placement Check/Change Guillermo Nice MD [facility] [place] [address] [facility] [address] Referral ID Status Reason Start Date Expiration Date V isits Requested Visits Authorized [id number] Closed Specialty Service Requested 04/16/2021 10/15/2022 1 1 Encounter Details Date Type Department Care Team (Latest Contact Info) Description 07/13/2021 12:01 PM EDT - 07/13/2021 2:28 PM EDT Hospital Encounter Radiology at [facility] [place] [address] Guillermo Nice MD [facility] [address] [place] [address] Metastatic urothelial carcinoma Discharge Disposition: Home Social [...] is during regular office hours, please call [phone]. If it is after regular office hours, or on weekends or holidays, please call [phone] and ask to speak to the Cloth Cutting Inspector plastics seasoner operator for Interventional Radiology. XX You have received [...] Progress Notes * Madelin Doshi RN - 07/13/2021 2:14 PM EDT [...] changed by MD de la cruz, Lot [id number] * Madelin Doshi RN - 07/13/2021 1:51 PM EDT Draine changed LOT [id number] By MD de la cruz * Annmarie Abbott RN - 07/10/2021 9:28 AM EDT [facility] Name: BARB BULLARD Date of : 1950 AGE: 71 y.o. Address: [address] [facility] [address] Phone: [phone] (home) Mobile: Telephone Information: Referring Provider: Guillermo Nice REASON FOR VISIT: Order Questions Answers Where will study be performed? [facility] Radiology [120] Reason for exam and clinical [...] Questions Answers Where will study be performed? [facility] Radiology [120] Reason for exam and clinical [...] IR Mediport Placement 04/02/2021 Yuval Sinclair PA [facility] INTERVENTIONL RAD ??? IR NEPHROSTOMY TUBE PLACEMENT PERCUTANEOUS BILATERAL 02/20/2021 IR Nephrostomy Tube Placement Percutaneous Bilateral [facility] INTERVENTIONL RAD ? ? PRO [facility] EBUS GUIDED SAMPL 3/> NODE STATION/STRUX N/A 04/04/2021 BRONCH, W ENDOBRONCHIAL ULTRASOUND (EBUS) GUIDED SAMPLING, 3+ NODES (WRVU 5.21) performed by Alonzo Cevallos MD at [facility] MAIN OR ??? PRO BRONCHOSCOPY, DIAGNOSTIC W LAVAGE N/A 04/04/2021 BRONCHOSCOPY, RIGID OR FLEXIBLE, WITH BRONCHIAL ALVEOLAR LAVAGE (WRVU 2.88) performed by Alonzo Cevallos MD at [facility] MAIN OR Medications: Current Outpatient Medications on [...] PM EDT Office Visit Hematology/Oncology at [address] [phone] Chase Mckay MD [facility] DR HEMATOLOGY [place] [address] documented as of this encounter Procedures Procedure [...] documented in this encounter Care Teams Senior Enterprise Architect Relationship Specialty Start Date End Date Eren Shah DNP PCP - General Family Medicine 03/20/21 06/10/22 documented as of this encounter
--- OUTSIDE RECORDS SUMMARY | 2023-12-08 03:38 | XMS_ITS | Encounter Summary ---
Author Organization [facility] [place] [address] Care Team Providers Care Pulverizer Mill Operator Name Role Phone Eren Shah CHELSEA Primary Care Provider [phone] Reason for Visit * Reason Onset Date Comments Follow-up 09/21/2021 On UTI Encounter Details Date Type Department Care Team (Late st Contact Info) Description 09/21/2021 Telephone Hematology/Oncology at [address] [phone] Pamella East RN Follow-up (On [...] PM EDT Office Visit Hematology/Oncology at [address] [phone] Chase Mckay MD [facility] DR [place] [address] documented as of this encounter Visit Diagnoses Not on filedocumented in this encounter Care Teams Pulverizer Mill Operator Relationship Specialty Start Date End Date Eren Shah DNP PCP - General Family Medicine 03/20/21 06/10/22 documented as of this encounter
--- OUTSIDE RECORDS SUMMARY | 2023-12-08 03:38 | XMS_ITS | Encounter Summary ---
Author Organization [facility] [place] [address] Care Team Providers Care Academic Support Coordinator Name Role Phone Eren Shah CHELSEA Primary Care Provider [phone] [phone] Reason for Visit * Reason Comments Chemotherapy C8D1 Pembrolizumab * Treatment/Therapy Plan Authorization (Routine) - Closed Specialty Diagnoses / Procedures Referred By Contac t Referred To Contact Hematology and Oncology Diagnoses Metastatic urothelial carcinoma Abnormal thyroid function test Procedures [id number] Jose Barnhart MD [address] [place] [address] DR HEMATOLOGY [place] [address] Jose Lange MD [address] [place] [address] DR HEMATOLOGY [place] [address] Referral ID Status Reason Start Date Expiration Date Visits Re quested Visits Authorized [id number] Closed 04/28/2022 06/24/2023 99 99 Encounter Details Date Type Department Care Team (Late st Contact Info) Description 09/18/2021 10:00 AM EDT Infusion Hematology Oncology at [address] [phone] Metastatic urothelial carcinoma; Abnormal thyroid [...] FT4 0.88 IV ACCESS: Mediport accessed at [facility] for labs, brisk blood return. Pre [...] PM EDT Office Visit Hematology/Oncology at [address] [phone] Chase Mckay MD [facility] DR HEMATOLOGY [place] [address] documented as of this encounter Visit Diagnoses [...] (IV) Procedure: Accessing Implanted Vascular Access Devices (524) procedure and/or Intravenous (IV) Job Aid: Adult Flushing & Catheter Care (0181) job aid for additional information regarding guidelines [...] Job Aid: Adult Flushing & Catheter Care (8650) job aid for additional information regarding guidelines and administration., Routine Given 09/18/2021 11:21 AM EDT 20 mLs sodium chloride 0.9% infusion 100 mL/hr, Intravenous, CONTINUOUS, Starting on Fri09/18/21 at 1015, Until Fri09/18/21 at 1347 New Bag 09/18/2021 10:20 AM EDT 100 mL/hr 100 mL/hr documented in this encounter Care Teams Academic Support Coordinator Relationship Specialty Start Date End Date Eren Shah DNP PCP - General Family Medicine 03/20/21 06/10/22 documented as of this encounter
--- OUTSIDE RECORDS SUMMARY | 2023-12-08 03:38 | XMS_ITS | Encounter Summary ---
[place] [address] Care Team Providers Care Head Athletic Trainer/Strength Coach Name Role Phone Eren Shha CHELSEA Primary Care Provider [phone] [phone] Reason for Referral * Diagnostic Test (Routine) - Closed Specialty Diagnoses / Procedures Referred By Contjoslyn t Referred To Contact Radiology Diagnoses Bilateral hydronephrosis Procedures IR Nephroureteral (NU) Stent Placement Check/Change Maria Fernanda Suarez PA [facility] [place] [address] [place] [address] Referral ID Status Reason Start Date Expiration Date V isits Requested Visits Authorized [id number] Closed Specialty Service Requested 10/01/2021 04/02/2023 1 1 Encounter Details Date Type Department Care Team (Late st Contact Info) Description 10/01/2021 [place] [address] Maria Fernanda Suarez PA [facility] [place] [address] Metastatic urothelial carcinoma; Bilateral hydronephrosis [...] PM EDT Office Visit Hematology/Oncology at [address] [phone] Chase Mckay MD [facility] DR [place] [address] documented as of this encounter [...] organs Bilateral hydronephrosis Hydronephrosis Bilateral hydronephrosis Hydronephrosis 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
--- OUTSIDE RECORDS SUMMARY | 2023-12-08 03:38 | XMS_ITS | Encounter Summary ---
Author Organization [facility] [place] [address] Care Team Providers Care Cdl A Driver Name Role Phone Eren Shah CHELSEA Primary Care Provider [phone] Reason for Visit * Diagnostic Test (Routine) - Closed Specialty Diagnoses / Procedures Referred By Contac t Referred To Contact Radiology Diagnoses Primary lung adenocarcinoma, left Metastatic urothelial carcinoma Procedures NM PET CT Skull Base to Mid-thigh Jose Lange MD [facility] [place] [address] [facility] [place] [address] Referral ID Status Reason Start Date Expiration Date V isits Requested Visits Authorized [id number] Closed Specialty Service Requested 07/17/2021 01/17/2023 1 1 Encounter Details Date Type Department Care Team (Latest Contact Info) Description 08/03/2021 12:39 PM EDT - 08/03/2021 11:59 PM EDT Hospital Encounter [place] [address] Jose Lange MD [facility] [place] [address] Discharge Disposition: Home Social History [...] PM EDT Office Visit Hematology/Oncology at [address] [phone] Chase Mckay MD [facility] [place] [address] documented as of this encounter Procedures Procedure [...] questions please contact the health insurance healthcare representative that requested your imaging first. ? Electronically signed by: Ed Barajas MD, [facility] ([phone]), at 08/06/2021 11:05 AM Narrative 08/06/2021 11:05 AM EDT EXAMINATION: NM PET CT STANDARD SKULL BASE TO MID-THIGH CLINICAL HISTORY: Urologic cancer, assess treatment response - Include more detail below Restaging of metastatic urothelial carcinoma and primary lung cancer Currently on Pembrolizumab. Status post 5 cycles of chemotherapy. Subsequent treatment evaluation. TECHNIQUE: Following IV injection of 46-bnbvvu-1-deoxyglucose (FDG) a standard uptake of approximately 60 [...] treatment evaluation. TECHNIQUE: Following IV injection of 59-qgacpc-9-deoxyglucose (FDG) astandard uptake of approximately 60 minutes, [...] nodes in the left periaortic region (axial [id number]), decreased in size and intensity compared to [...] have questions please contactthe health insurance healthcare representative that requested your imaging first. Electronically signed by: Ed Barajas MD, [facility]([phone]), at 08/06/2021 11:05 AM Jose Lange MD IMG PET ORDERABLES documented in this encounter Visit Diagnoses Not on filedocumented in this encounter Care Teams Cdl A Driver Relationship Specialty Start Date End Date Eren Shah DNP PCP - General Family Medicine 03/20/21 06/10/22 documented as of this encounter
--- OUTSIDE RECORDS SUMMARY | 2023-12-08 03:39 | XMS_ITS | Encounter Summary ---
Author Organization [facility] Address [facility] [address] Care Team Providers Care Data Entry Processor Name Role Phone Eren Shah DNP Primary Care Provider [phone] Encounter Details Date Type Department Care Team (Late st Contact Info) Description 04/26/2021 Telephone Hematology Oncology at [address] [phone] Gay Marshall, RN Social History [...] 11:23 AM EST Caller: TORITO Kaminski from [facility] on speaker phone with patient. Relationship: A nurse Clarified Two Patient Identifiers: [x] Reason For Call: TORITO Kaminski from [facility] calls on speaker phone with patient to report multiple concerns that she, patient and patient's daughter have (see assessment below). 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 documented in this encounter Plan of Treatment Upcoming Encounters Date Type Department Care Team (Late st Contact Info) Description 12/08/2023 3:30 PM EDT Office Visit Hematology/Oncology at [address] [phone] Chase Mckay MD [facility] DR H[place]AT[place] [address] documented as of this encounter Visit Diagnoses Not on filedocumented in this encounter Care Teams Data Entry Processor Relationship Specialty Start Date End Date Eren Shah DNP PCP - General Family Medicine 03/20/21 06/10/22 documented as of this encounter
--- OUTSIDE RECORDS SUMMARY | 2023-12-08 03:39 | XMS_ITS | Encounter Summary ---
Author Organization [facility] Address [facility] [place] [address] Care Team Providers Care Product Development Manager Name Role Phone Eren Shah DNP Primary Care Provider [phone] Encounter Details Date Type Department Care Team (Late st Contact Info) Description 05/09/2021 9:30 AM EST Office Visit Hematology/Oncology at [address] [phone] [address] [facility] DR [place] [address] Metastatic urothelial carcinoma Social History Tobacco Use [...] PM EDT Office Visit Hematology/Oncology at [address] [phone] Chase Mckay MD [facility] [place] [address] documented as of this encounter Visit Diagnoses Diagnosis Metastatic urothelial carcinoma 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
--- OUTSIDE RECORDS SUMMARY | 2023-12-08 03:39 | XMS_ITS | Encounter Summary ---
Author Organization [facility] [place] [address] Care Team Providers Care Upkeep Worker Name Role Phone Eren Shah CHELSEA Primary Care Provider [phone] Encounter Details Date Type Department Care Team (Late st Contact Info) Description 03/27/2021 Telephone [place] [phone] Oralia Null Social History Tobacco Use Types [...] PM EDT Office Visit Hematology/Oncology at [address] [phone] Chase Mckay MD [facility] DR [place] [address] documented as of this encounter Visit Diagnoses Not on filedocumented in this encounter Care Teams Upkeep Worker Relationship Specialty Start Date End Date Eren Shah DNP PCP - General Family Medicine 03/20/21 06/10/22 documented as of this encounter
--- OUTSIDE RECORDS SUMMARY | 2023-12-08 03:39 | XMS_ITS | Encounter Summary ---
Author Organization [facility] Address [facility] Jose Roberto [place] [address] Care Team Providers Care Health Coach Name Role Phone Eren Shah CHELSEA Primary Care Provider [phone] Encounter Details Date Type Department Care Team (Late st Contact Info) Description 04/06/2021 Telephone [place] [phone] [facility] [place] [address] Social History Tobacco Use Types Packs/Day Years [...] Section of Pulmonary & Critical Care Pager: [phone] documented in this encounter Plan of Treatment Upcoming Encounters Date Type Department Care Team (Late st Contact Info) Description 12/08/2023 3:30 PM EDT Office Visit Hematology/Oncology at [address] [phone] [facility] DR HEMATOLOGY [place] [address] documented as of this encounter Visit Diagnoses Not on filedocumented in this encounter Care Teams Health Coach Relationship Specialty Start Date End Date Eren Shah DNP PCP - General Family Medicine 03/20/21 06/10/22 documented as of this encounter
--- OUTSIDE RECORDS SUMMARY | 2023-12-08 03:39 | XMS_ITS | Encounter Summary ---
[place] [address] Care Team Providers Care Screen Printer Name Role Phone Eren Shah CHELSEA Primary Care Provider [phone]- [phone] Reason for Referral * Consultation (Routine) - Closed Specialty Diagnoses / Procedures Referred By Contjoslyn t Referred To Contact Hospice and Palliative Medicine Diagnoses Metastatic urothelial carcinoma Jose Lange MD [facility] [place] [address] Referral ID Status Reason Start Date Expiration Date V isits Requested Visits Authorized [id number] Closed Consult, Test & Treat 03/27/2021 09/23/2021 1 1 * Diagnostic Test (Routine) - Closed Specialty Diagnoses / Procedures Referred By Contjoslyn t Referred To Contact Radiology Diagnoses Metastatic urothelial carcinoma Procedures IR Mediport Placement Jose Lange MD [facility] [address] [place] [address] [facility] [place] [address] Referral ID Status Reason Start Date Expiration Date V isits Requested Visits Authorized [id number] Closed Specialty Service Requested 03/27/2021 09/24/2022 1 1 Reason for Visit * Consultation (Routine) - Closed Specialty Diagnoses / Procedures Referred By Contac t Referred To Contact Hematology and Oncology Diagnoses Malignant neoplasm of bladder, unspecified MALIGNAT NEOPLASM OF BLADDER UNSPECIFIED Procedures TREATMENT OPTIONS Leandro Arzate MD [address] [place] [address] Stj Hem Onc Office [address] [place] [id number] Referral ID Status Reason Start Date Expiration Date Visits Re quested Visits Authorized [id number] Closed 03/02/2021 03/02/2022 1 1 Encounter Details Date Type Department Care Team (Late st Contact Info) Description 03/27/2021 2:30 PM EST Office Visit Hematology/Oncology at [address] [phone] Jose Lange MD [facility] DR [place] [address] Metastatic urothelial carcinoma (Primary Dx); Disorders of [...] lung primary. She was seen by social science professor , who recommended rigid bronchoscopy with attempts to open the LLL broncus as well as stage the mediastinum with EBUS. The procedure has been scheduled yet. PMH: No significant past medical history Social History: [id number] smoking history quit 6 years ago, does [...] of presumably metastatic urothelial carcinoma which include [place] based chemotherapy versus immunotherapy. Due to her [...] visit in 3 weeks with blood work, TOWER HOIST OPERATOR chemotherapy teaching and first cycle of pembrolizumab. [...] PM EDT Office Visit Hematology/Oncology at [address] [phone] Chase Mckay MD [facility] DR [place] [address] Scheduled Referrals Name Type Priority Associated Diagnoses Order Schedule Referral to Palliative Care Outpatient Referral Routine Metastatic urothelial carcinoma Ordered: 03/27/2021 documented as of this encounter Results * IR Mediport Placement (04/02/2021 11:54 AM EST) Anatomical Region Laterality Modality X-Ray Angiograph y Narrative 04/02/2021 4:42 PM EST Interventional Radiology Procedure Note Procedure: Subcutaneous venous port implant Indication: metastatic urothelial carcinoma, durable prison central venous access for chemotherapy Procedure summary: [...] pleura documented in this encounter Care Teams Screen Printer Relationship Specialty Start Date End Date Eren Shah DNP PCP - General Family Medicine 03/20/21 06/10/22 documented as of this encounter
--- OUTSIDE RECORDS SUMMARY | 2023-12-08 03:39 | XMS_ITS | Encounter Summary ---
Author Organization [facility]ly [facility] [place] [address] Care Team Providers Care Fashion Director Party Plan Sales Name Role Phone Eren Shah DNP Primary Care Provider [phone] [phone] Encounter Details Date Type Department Care Team (Late st Contact Info) Description 04/11/2021 Telephone Hematology/Oncology at [address] [phone] [facility] DR [place] [address] Social History Tobacco Use Types Packs/Day Years [...] Antonio, RD - 04/11/2021 1:[address] [facility] Initial Assessment Patient Name: Barb Bullard Diagnosis: [...] over the phone today. She lives in [place] with her daughter who helps with cooking. [...] PM EDT Office Visit Hematology/Oncology at [address] [phone] Chase Mckay MD [facility] DR [place] [address] documented as of this encounter Visit Diagnoses Not on filedocumented in this encounter Care Teams Fashion Director Party Plan Sales Relationship Specialty Start Date End Date Eren Shah DNP PCP - General Family Medicine 03/20/21 06/10/22 documented as of this encounter
--- OUTSIDE RECORDS SUMMARY | 2023-12-08 03:39 | XMS_ITS | Encounter Summary ---
Author Organization [facility] Address [facility] [place] [address] Care Team Providers Care Chemical Laboratory Tester Name Role Phone Eren Shah CHELSEA Primary Care Provider [phone] [phone] Reason for Visit * Reason Comments IV Access Mediport Flush & De- Access Encounter Details Date Type Department Care Team (Late st Contact Info) Description 05/09/2021 9:30 AM EST Infusion Hematology Oncology at [address] [phone] Metastatic urothelial carcinoma Social History [...] APRN in clinic. 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
--- OUTSIDE RECORDS SUMMARY | 2023-12-08 03:39 | XMS_ITS | Encounter Summary ---
Author Organization [facility] Address [facility] [place] [address] Care Team Providers Care Delivery Motorcycle Driver Name Role Phone Eren Shah CHELSEA Primary Care Provider [phone] [phone] Reason for Visit * Diagnostic Test (Emergency) - Closed Specialty Diagnoses / Procedures Referred By Contjoslyn t Referred To Contact Radiology Diagnoses Lung mass Procedures NM PET CT Skull Base to Mid-thigh Alonzo Cevallos MD [facility] [place] [address] [facility] [place] [address] Referral ID Status Reason Start Date Expiration Date V isits Requested Visits Authorized [id number] Closed Specialty Service Requested 02/20/2021 08/21/2022 1 1 Encounter Details Date Type Department Care Team (Latest Contact Info) Description 03/20/2021 10:02 AM EST - 03/20/2021 11:59 PM [facility] Hospital [place] [phone] Alonzo Cevallos MD [facility] [place] [address] Discharge Disposition: Home Social History [...] PM EDT Office Visit Hematology/Oncology at [address] [phone] Chase Mckay MD [facility] DR [place] [address] documented as of this encounter Procedures Procedure Name Priority Date/Time Associated Diagnosis Comments NM PET CT SKULL BASE TO MID-THIGH ([facility]CSR) STAT 03/20/2021 12:59 PM EST Lung mass POCT GLUCOSE Routine 03/20/2021 10:21 AM EST documented in this encounter Results * POCT Glucose (03/20/2021 10:21 AM EST) Glucose, POC 90 65 - 199 mg/dL [facility] Comment: Supplemental ranges: <140 mg/dL before meals <180 mg/dL all other times of the day Blood 03/20/2021 10:2 1 AM EST 03/20/2021 10:21 AM EST Alonzo Cevallos MD POINT OF CARE TEST O RDERABLES [facility] [place] [address] documented in this encounter Visit Diagnoses Not on filedocumented in this encounter Care Teams Delivery Motorcycle Driver Relationship Specialty Start Date End Date Eren Shah DNP PCP - General Family Medicine 03/20/21 06/10/22 documented as of this encounter
--- OUTSIDE RECORDS SUMMARY | 2023-12-08 03:39 | XMS_ITS | Encounter Summary ---
Author Organization [facility] [place] [address] Care Team Providers Care Manager Event Name Role Phone Eren Shah DNP Primary Care Provider Reason for Visit * Reason Comments Flank Pain Encounter Details Date Type Department Care Team (Late st Contact Info) Description 04/08/2021 2:21 AM EST - 04/08/2021 8:04 AM EST [place] [phone] Ann Chowdhury MD [facility] [place] [address] Jose Miguel Juárez MD [facility] [place] [address] Leukocytosis, unspecified type (Primary Dx); Pleural effusion; [...] Care Everywhere. * WBC: Elevated: General Info (Bahraini) documented in this encounter Medications at [...] hospital labs documented below. ?? Labs at [facility] obtained 03/02 show the following Phos [...] Portions of this note were created with [employer] dictation software. Please excuse small typos and [...] of 04/08/21 0721 Sun Apr 08, 2021 2876 Urology recommend IR consultation. 0510 IR paged. [id number] IR to review case, will re-engage. 5996 Urology to round on patient. Final recs [...] mcL Appearance UA Turbid (A) Clear Spec [place] UA 1.022 1.005 - 1.030 Color UA Yellow Yellow Culture Reflexed Yes Urinalysis Microscopic Exam Result Value Ref Range RBC UA >100 (H) 0 - 4 /HPF WBC UA >100 (H) 0 - 5 /HPF WBCs Clumping Rare (A) None /HPF Bacteria UA Many (A) None /HPF Yeast [place] UA Moderate (A) None /HPF Yeast Hyph [...] questions please contact the health child care sitter that requested your imaging first. Electronically signed by: Geovanna Herman MD, [facility] ([phone]), at 04/08/2021 3:58 AM ASSESSMENT & PLAN [...] Outside hospital labs documented below. Labs at [facility] obtained 03/02 show the following Phos [...] uropathy initially diagnosed by Dr. Arzate at [facility]. She underwent bilateral NU st[place] [facility] She presented today to [facility] due to clogged NU tube c/w flank pain. CT with NU stents in position, no hydronephrosis. In the ED IR interrogated the NU stents, which flushed well. Her flank pain also resolved once the NU started flowing. Urology was consulted about whether patient would need antibiotics prior to discharger. Her WBC noted to be in th 30's but her most recent WBC at [facility] was in the 20's and thought to be due to reactive leukocytosis. UA >100 WBC, >100 RBC, -ve NIT. She is otherwise AF, AAO, VSS, at baseline health without flank/suprapubic pain. She is covered with Augmentin (04/04 - 04/11) after her bronchoscopy/biopsy on 04/04/21. She has follow up with Medical Oncology at [facility] for pemb rolizumab infusion starting 04/11/21. MEDICAL AND SURGICAL HISTORY No past medical history on file. Past Surgical History: Procedure Laterality Date ??? IR MEDIPORT PLACEMENT 04/02/2021 IR Mediport Placement 04/02/2021 Yuval Sinclair PA [facility] ??? IR NEPHROSTOMY TUBE PLACEMENT PERCUTANEOUS BILATERAL 02/20/2021 IR Nephrostomy Tube Placement Percutaneous Bilateral [facility] ? ? PRO [facility] EBUS GUIDED SAMPL 3/> NODE STATION/STRUX N/A 04/04/2021 BRONCH, W ENDOBRONCHIAL ULTRASOUND (EBUS) GUIDED SAMPLING, 3+ NODES (WRVU 5.21) performed by Alonzo Cevallos MD at [facility] ??? PRO BRONCHOSCOPY, DIAGNOSTIC W LAVAGE N/A 04/04/2021 BRONCHOSCOPY, RIGID OR FLEXIBLE, WITH BRONCHIAL ALVEOLAR LAVAGE (WRVU 2.88) performed by Alonzo Cevallos MD at [facility] No current facility-administered medications on [...] pulmonary biopsy on 04/04/21. Patient presented to [facility] [place] for flank pain which resolved after NU interrogation. CT without signs of urinary obstruction. UA is questionable for infection however with NU stents in place, it is difficult to say how significant the WBC are without positive nitrate. Patient is otherwise feeling well without signs of infection. She is on Augmentin for recent bronchoscopy/biopsy and will present to [facility] ([facility]) for oncological follow up. Her NU will [...] no dedicated Urology follow up needed with [facility] at this point Case discussed with Dr. [...] PM EDT Office Visit Hematology/Oncology at [address] [phone] Chase Mckay MD [facility] [place] [address] documented as of this encounter Procedures Procedure [...] 04/08/2021 2:50 AM EST COMPREHENSIVE METABOLIC PANEL STAT 04/08/2021 2:50 AM EST documented in this encounter Results * (ABNORMAL) Urine culture (04/08/2021 3:45 AM EST) Pathologist [facility] Urine Culture 10,000-49,000 cfu/ml Laurence albicans 1,000-9,000 cfu/ml mixed Gram Negative organisms (A) [facility] Organism Laurence albicans(A) [facility] Nephrostomy Urine 04/08/2021 3:45 AM EST 04/08/2021 6:33 AM EST Narrative Resulting Agency Comment Spec In Lab Lukas Calderon MD MICROBIOLOGY - GENER AL ORDERABLES [facility] [place] [address] * (ABNORMAL) Urinalysis Microscopic Exam (04/08/2021 3:45 AM EST) Pathologist [facility] RBC, Urine >100(H) 0 - 4 /HPF [facility] WBC, Urine >100(H) 0 - 5 /HPF [facility] WBC Clumps, Urine Rare(A) None /HPF [facility] Bacteria, Urine Many(A) None /HPF [facility] Budding Yeast, Urine Moderate(A ) None /HPF [facility] Hyphae Yeast, Urine Rare(A) None /HPF [facility] Squamous Epithelial Cells Raw Data, Urine 3 <=4 /HPF [facility] Hyaline Casts, Urine 13(H) 0 - 2 /LPF [facility] Calcium Oxalate Crystal, Urine Rare(A) None /HPF [facility] Nephrostomy Urine 04/08/2021 3:45 AM EST 04/08/2021 4:31 AM EST Narrative Resulting Agency Comment Spec In Lab Lukas Calderon MD URINE ORDERABLES [facility] [place] [address] * (ABNORMAL) Urinalysis with reflex Culture (04/08/2021 3:45 AM EST) Glucose, Urine Dipstick Negative Negative mg/dL [facility] Protein, Urine Dipstick >=300(A) Negative mg/dL [facility] Bilirubin, Urine Dipstick Negative Negative mg/dL [facility] Comment: Clinical correlation required for positive Urine Bilirubin results as false positive may occur with some drugs and drug related products. If a false positive is suspected a serum total bilirubin should be considered if clinically indicated. Urobilinogen, Urine Dipstick Normal Normal mg/dL [facility] pH, Urn (dipstick) 6.0 5.0 - 8.0 [facility] Blood, Urine Dipstick Large(A) Negative mg/dL [facility] Ketone, Urine Dipstick Negative Negative mg/dL [facility] Nitrite, Urine Dipstick Negative Negative [facility] Leukocytes, Urine Dipstick Large(A) Negative [facility] Appearance, Urine Dipstick Turbid(A) Clear [facility] Specific [place] Urine Automated 1.022 1.005 - 1.030 [facility] Color, Urine Dipstick Yellow Yellow [facility] Reflex to Culture Yes [facility] Nephrostomy Urine 04/08/2021 3:45 AM EST 04/08/2021 4:31 AM EST Narrative Resulting Agency Comment Spec In Lab Ann Chowdhury MD URINE ORDERABLES Performing Organization Address City/State/[facility] Co de Phone Number [facility] [place] [address] * CT Abdomen & Pelvis w Contrast [...] questions please contact the health child care sitter that requested your imaging first. ? Electronically signed by: Geovanna Herman MD, [facility] ([phone]), at 04/08/2021 3:58 AM Narrative 04/08/2021 3:58 [...] administration of contrast. Administered 73.0 ml of XSPUEGLMI032.00 mg/ml. Oral contrast was noted administered. COMPARISON: [...] have questions please contactthe health child care sitter that requested your imaging first. Electronically signed by: Geovanna Herman MD, [facility]([phone]), at 04/08/2021 3:58 AM Ann Chowdhury MD IMG CT ORDERABLES * Scan, Peripheral Blood (04/08/2021 2:50 AM EST) Plat estimate Increased [facility] RBC Morphology Abnormal [facility] Microcyte 1-5 /HPF [facility] Hypochromia Slight [facility] Plat, Giant Less than 1 /HPF [facility] Platelet Clumps Present [facility] Blood 04/08/2021 2:50 AM EST 04/08/2021 2:56 AM EST Narrative Resulting Agency Comment Spec In Lab Lukas Calderon MD HEMATOLOGY ORDERABLE S [facility] [place] [address] * Gold Tube HOLD (04/08/2021 2:50 AM EST) Pathologist [facility] Gold Hold Sample in lab. [facility] Blood Venous Draw / Unknown 04/08/2021 2:50 AM EST 04/08/2021 2:57 AM EST Lukas Calderon MD CHEMISTRY ORDERABLES [facility] [place] [address] * (ABNORMAL) Differential, Automated (04/08/2021 2:50 AM EST) [facility] Neutrophil % 79.3 % [facility] Neutrophil Absolute 24.24(H) 1.70 - 6.10 x10(3)/ L [facility] Lymph % 8.8 % [facility] Lymphocytes Abs 2.7 0.9 - 3.2 x10(3)/ L [facility] Monocyte % 5.9 % [facility] Monocyte Abs 1.8(H) 0.3 - 0.9 x10(3)/ L [facility] Eos % 4.4 % [facility] Eosinophils Abs 1.4(H) 0.0 - 0.4 x10(3)/ L [facility] Basophil % 0.4 % [facility] Baso Absolute 0.1 0.0 - 0.1 x10(3)/ L [facility] Immature Gran % 1.20 % [facility] Comment: Immature granulocytes(IG's)percentage and absolute count will include metamyelocytes, myelocytes, and promyelocytes. Blood smears from CBCs yielding IG's will be scanned manually for concordance. If this scan disagrees with the automated IG or if promyelocytes are noted, a manual differential will be performed. Immature Gran Absolute 0.36(H) 0.00 - 0.04 x10(3)/ L [facility] Blood 04/08/2021 2:50 AM EST 04/08/2021 2:56 AM EST Narrative Resulting Agency Comment Spec In Lab Lukas Calderon MD HEMATOLOGY ORDERABLE S [facility] [place] [address] * (ABNORMAL) Hemogram (04/08/2021 2:50 AM EST) White Blood Cell 30.6(Crit ical) 4.0 - 9.5 x10(3)/mc L [facility] Comment: This result has been called to LATOYA HARRIS by Kris Carrillo on 04 08 2021 at 0330, and has been read back. Red Blood Cell 3.92(L) 4.00 - 5.21 x10(6)/mc L [facility] Hemoglobin 9.9(L) 11.7 - 15.5 g/dL [facility] Hematocrit 31.5(L) 35.7 - 45.8 % [facility] Mean Cell Volume 80.4(L) 82.6 - 94.4 fL [facility] Mean Cell Hemoglobin 25.3(L) 27.1 - 32.0 pg [facility] Mean Cell Hemoglobin Concentration 31.4(L) 31.7 - 35.0 g/dL [facility] Platelet 755(H) 145 - 357 x10(3)/mc L [facility] RDW Standard Deviation 62.4(H) 37.0 - 46.0 fL [facility] RDW coefficient of variation 21.7(H) 11.5 - 14.1 % [facility] Mean Platelet Volume 8.8 7.6 - 12.9 fL [facility] NRBC% auto 0.0 % [facility] NRBC Absolute 0.000 0.000 - 0.000 x10(3)/mc L [facility] Blood 04/08/2021 2:50 AM EST 04/08/2021 2:56 AM EST Narrative Resulting Agency Comment Spec In Lab Lukas Calderon MD HEMATOLOGY ORDERABLE S Performing Organization Address City/[facility] Co de Phone Number [facility] [place] [address] * Lipase (04/08/2021 2:50 AM EST) Lipase 14 0 - 60 unit/L [facility] Blood 04/08/2021 2:50 AM EST 04/08/2021 2:56 AM EST Narrative Resulting Agency Comment Spec In Lab Ann Chowdhury MD CHEMISTRY ORDERABLE S Performing Organization Address [facility] de Phone Number [facility] [place] [address] * (ABNORMAL) Comprehensive metabolic panel (non-fasting) (04/08/2021 2:50 AM EST) Pathologist [facility] Glucose 116 65 - 199 mg/dL [facility] Comment:Diabetes: >=200 mg/d L plus symptoms Blood Urea Nitrogen 23(H) 8 - 18 mg/dL [facility] Creatinine 1.24(H) 0.70 - 1.20 mg/dL [facility] Sodium 137 135 - 145 mmol/L [facility] Potassium 3.3(L) 3.5 - 5.0 mmol/L [facility] Comment: Please note: ??Patients with WBC >100,000 may have falsely elevated Potassium levels. ??For accurate Potassium quantification in these patients send serum separator tube (gold top) for subsequent determinations. ??Contact the Clinical Chemistry Laboratory if there are any questions. Chloride 106 98 - 107 mmol/L [facility] Carbon Dioxide 19(L) 22 - 31 mmol/L [facility] Anion Gap 12 5 - 15 mmol/L [facility] Calcium 9.8 8.5 - 10.5 mg/dL [facility] Protein, Total 8.3(H) 6.1 - 8.0 g/dL [facility] Albumin 3.2 3.2 - 5.2 g/dL [facility] Aspartate Aminotransferase 9 0 - 30 unit/L [facility] Alanine Aminotransferase 7 0 - 30 unit/L [facility] Alkaline Phosphatase 85 35 - 105 unit/L [facility] Bilirubin, Total 0.4 0.2 - 1.3 mg/dL [facility] Est Glomerular Filtration Rate 44(L) >=60 mL/min/1. 73 m?? [facility] Comment: This patient? s estimated [...] Lab Ann Chowdhury MD CHEMISTRY ORDERABLE S [facility] [place] [address] documented in this encounter Visit Diagnoses Diagnosis [...] 0237 (New Bag - Prov ider: Cortney Mello RN)0307 (Stopped - Provider: Ann Byrne RN) PRN Medication Order 04/06/2021 04/07/2021 04/08/2021 iohexoL (Omnipaque) (350 mg/mL) solution 0-200 mL (COMPLETED) 0-200 mL, Intravenous, ONCE PRN, 1 dose, Starting on 04/08/21 at 0325, Until 04/08/21 at 0318, Per Protocol, Warning Vesicant/Irritant Medication , Radiology Contrast, Routine 031 (Given - Provid er: Marielos Katz) documented in this encounter Care Teams Manager Event Relationship Specialty Start Date End Date Eren Shah DNP PCP - General Family Medicine 03/20/21 06/10/22 documented as of this encounter
--- OUTSIDE RECORDS SUMMARY | 2023-12-08 03:39 | XMS_ITS | Encounter Summary ---
[place] [address] Care Team Providers Care Broom Bundler Name Role Phone Eren Shah DNP Primary Care Provider +1 [phone] Encounter Details Date Type Department Care Team (Late st Contact Info) Description 03/21/2021 Orders [place] [address] Yonathan Van MD [facility] [place] [address] Social History Tobacco Use Types Packs/Day Years [...] outpatient on Friday 03/23. Will notify IR central scheduler Friday morning to contact patient for appointment [...] PM EDT Office Visit Hematology/Oncology at [address] [phone] Chase Mckay MD [facility] [address] [place] [address] documented as of this encounter Visit Diagnoses Not on filedocumented in this encounter Care Teams Broom Bundler Relationship Specialty Start Date End Date Eren Shah DNP PCP - General Family Medicine 03/20/21 06/10/22 documented as of this encounter
--- OUTSIDE RECORDS SUMMARY | 2023-12-08 03:39 | XMS_ITS | Encounter Summary ---
Author Organization [facility] Address [facility] [place] [address] Care Team Providers Care Mussel Opener Name Role Phone Eren Shah CHELSEA Primary Care Provider [phone] [phone] Reason for Referral * Consultation (Routine) - Closed Specialty Diagnoses / Procedures Referred By Contjoslyn t Referred To Contact Urology Diagnoses Metastatic urothelial carcinoma 05/08/21 - [facility] TO DECLO - METASTATIC UROTHELIAL CA Abena Ogden, RN [address] [place] [address] [place] [address] Nasim Beckwith MD [facility] [place] [address] Referral ID Status Reason Start Date Expiration Date V isits Requested Visits Authorized [id number] Closed Consult, Test & Treat 04/18/2021 04/18/2022 1 1 Encounter Details Date Type Department Care Team (Latest Contact Info) Description 04/18/2021 8:30 AM EST Clinical Support Hematology/Oncology at [address] [phone] Abena Ogdne RN Metastatic urothelial carcinoma Social History Tobacco [...] not included. Hematology & Medical Oncology [address] [address] Barb returns today for immunotherapy education and [...] lung primary. She was seen by supervisor of research , who recommended rigid bronchoscopy with attempts [...] for adenocarcinoma of lung origin Social History: [id number] smoking history quit 6 years ago, does [...] The assay was performed according to the donkey engine firer/fireman's ??instructions using Anti-PD-L1 (22C3, pharmDX) antibody. Electronically signed by: ?Herbert Ford MD Verified: ??04/11/2021 8:14 ?? Pathologist Performed at: ??-[facility] [place], [place], [place] ? Surgical Pathology DIAGNOSIS A - Lung, ??left lower lobe mass, debulking: ?? - Adenocarcinoma, consistent with lung primary. Electronically signed by: ?aSna Dowell MD Verified: ??04/06/2021 11:16 ??Pathologist Performed at: ??-[facility] [place]. [place], [place], [place] DISCUSSION Sections show an invasive, predominantly [...] of presumably metastatic urothelial carcinoma which include ruby based chemotherapy versus immunotherapy. Due to her [...] Visits: You will see your doctor or TANK WAGON OPERATOR before each treatment to check your labs [...] questions today. ??? Reviewed Social work and supervisor grinding availability. ??? Follow up: Return to clinic in 3 weeks with labs- CBC,CMP, TSH, FT4 and C2 Pembrolizumab. ??? She would like to get her labs at [facility] prior to visit ??? Referral to Dr. Beckwith for nephrostomy tube management. Barb voiced understanding of the plan and was given an opportunity to ask questions which I answered to the best of my ability. Barb understands she can call the clinic between visits with any questions/concerns or new symptoms. Abena Ogden MSN, MOBILE QA TESTER, AOCNP Medical Oncology I spent 30 minutes, [...] PM EDT Office Visit Hematology/Oncology at [address] [address] Chase Mckay MD [facility] [place] [address] Scheduled Referrals Name Type Priority Associated Diagnoses [...] pleura documented in this encounter Care Teams Mussel Opener Relationship Specialty Start Date End Date Eren Shah DNP PCP - General Family Medicine 03/20/21 06/10/22 documented as of this encounter
--- OUTSIDE RECORDS SUMMARY | 2023-12-08 03:39 | XMS_ITS | Encounter Summary ---
[place] [address] Care Team Providers Care Americanization Teacher Name Role Phone Eren Shah CHELSEA Primary Care Provider Reason for Referral * Diagnostic Test (Routine) - Closed Specialty Diagnoses / Procedures Referred By Contac t Referred To Contact Radiology Diagnoses Metastatic urothelial carcinoma Procedures IR Nephroureteral (NU) Stent Placement Check/Change Guillermo Nice MD [facility] [place] [address] [facility] [place] [address] Referral ID Status Reason Start Date Expiration Date V isits Requested Visits Authorized [id number] Closed Specialty Service Requested 04/16/2021 10/15/2022 1 1 Reason for Visit * Diagnostic Test (Routine) - Closed Specialty Diagnoses / Procedures Referred By Contac t Referred To Contact Radiology Diagnoses Hydronephrosis, bilateral Bladder mass Acute kidney injury Procedures IR Other Related Procedures IR Nephroureteral (NU) Stent Placement Check/Change Jean Carlos Fenton DO [facility] [place] [address] [facility] [place] [address] Referral ID Status Reason Start Date Expiration Date V isits Requested Visits Authorized [id number] Closed Specialty Service Requested 02/20/2021 08/21/2022 1 1 Encounter Details Date Type Department Care Team (Latest Contact Info) Description 04/16/2021 12:00 PM EST - 04/16/2021 11:59 PM EST Hospital En[place] [address] Jean Carlos Fenton, [facility] [place] [address] Hydronephrosis, bilateral; Bladder mass; Acute kidney injury; [...] from the original note were not included. [facility] Vascular and Interventional Radiology Discharge Instructions for [...] is during regular office hours, please call [phone]. If it is after regular office hours, or on weekends or holidays, please call [phone] and ask to speak to the Team Member authorization manager for Interventional Radiology. You have received medication [...] PM EST [facility] Name: BARB UBLLARD Date of : 1950 AGE: 70 y.o. Address: [address] [place] [address] (home) Mobile: Telephone Information: Referring Provider: Jean Carlos Fenton REASON FOR VISIT: Order Questions Answers Where will study be performed? [facility] Radiology [120] Reason for exam [...] Questions Answers Where will study be performed? [facility] Radiology [120] Reason for exam [...] IR Mediport Placement 04/02/2021 Yuval Sinclair PA [facility] INTERVENTIONL RAD ??? IR NEPHROSTOMY TUBE PLACEMENT PERCUTANEOUS BILATERAL 02/20/2021 IR Nephrostomy Tube Placement Percutaneous Bilateral [facility] INTERVENTIONL RAD ? ? PRO [facility] EBUS GUIDED SAMPL 3/> NODE STATION/STRUX N/A 04/04/2021 BRONCH, W ENDOBRONCHIAL ULTRASOUND (EBUS) GUIDED SAMPLING, 3+ NODES (WRVU 5.21) performed by Alonzo Cevallos MD at [facility] MAIN OR ??? PRO BRONCHOSCOPY, DIAGNOSTIC W LAVAGE N/A 04/04/2021 BRONCHOSCOPY, RIGID OR FLEXIBLE, WITH BRONCHIAL ALVEOLAR LAVAGE (WRVU 2.88) performed by Alonzo Cevallos MD at [facility] MAIN OR Social History and Habits: [...] Questions Answers Where will study be performed? [facility] Radiology [120] Reason for exam [...] IR Mediport Placement 04/02/2021 Yuval Sinclair PA [facility] INTERVENTIONL RAD ??? IR NEPHROSTOMY TUBE PLACEMENT PERCUTANEOUS BILATERAL 02/20/2021 IR Nephrostomy Tube Placement Percutaneous Bilateral [facility] INTERVENTIONL RAD ? ? PRO [facility] EBUS GUIDED SAMPL 3/> NODE STATION/STRUX N/A 04/04/2021 BRONCH, W ENDOBRONCHIAL ULTRASOUND (EBUS) GUIDED SAMPLING, 3+ NODES (WRVU 5.21) performed by Alonzo Cevallos MD at [facility] MAIN OR ??? PRO BRONCHOSCOPY, DIAGNOSTIC W LAVAGE N/A 04/04/2021 BRONCHOSCOPY, RIGID OR FLEXIBLE, WITH BRONCHIAL ALVEOLAR LAVAGE (WRVU 2.88) performed by Alonzo Cevallos MD at [facility] MAIN OR Social History and Habits: [...] PM EDT Office Visit Hematology/Oncology at [address] [address] Chase Mckay MD [facility] [address] [place] [address] documented as of this encounter [...] mLs documented in this encounter Care Teams Americanization Teacher Relationship Specialty Start Date End Date Eren Shah DNP PCP - General Family Medicine 03/20/21 06/10/22 documented as of this encounter
--- OUTSIDE RECORDS SUMMARY | 2023-12-08 03:39 | XMS_ITS | Encounter Summary ---
Author Organization [facility] [place] [address] Care Team Providers Care Dehairer Name Role Phone Eren Shah CHELSEA Primary Care Provider [phone] Encounter Details Date Type Department Care Team (Late st Contact Info) Description 03/28/2021 [place] [phone] Consuelo Monson Social History Tobacco Use Types [...] PM EDT Office Visit Hematology/Oncology at [address] [address] Chase Mckay MD [facility] [address] [place] [address] documented as of this encounter Visit Diagnoses Not on filedocumented in this encounter Care Teams Dehairer Relationship Specialty Start Date End Date Eren Shah DNP PCP - General Family Medicine 03/20/21 06/10/22 documented as of this encounter
--- OUTSIDE RECORDS SUMMARY | 2023-12-08 03:39 | XMS_ITS | Encounter Summary ---
[place] [address] Care Team Providers Care Medical Receptionist Medical Assistant Name Role Phone Eren Shah DNP Primary Care Provider Reason for Referral * Diagnostic Test (Emergency) - Closed Specialty Diagnoses / Procedures Referred By Contac t Referred To Contact Radiology Diagnoses Lung mass Procedures NM PET CT Skull Base to Mid-thigh Alonzo Cevallos MD [facility] [place] [address] [place] [address] Referral ID Status Reason Start Date Expiration Date V isits Requested Visits Authorized [id number] Closed Specialty Service Requested 02/20/2021 08/21/2022 1 1 Reason for Visit * Diagnostic Test (Emergency) - Closed Specialty Diagnoses / Procedures Referred By Contac t Referred To Contact Radiology Diagnoses Lung mass Procedures NM PET CT Skull Base to Mid-thigh Alonzo Cevallos MD [facility] [place] [address] [place] [address] Referral ID Status Reason Start Date Expiration Date V isits Requested Visits Authorized [id number] Closed Specialty Service Requested 02/20/2021 08/21/2022 1 1 Encounter Details Date Type Department Care Team (Latest Contact Info) Description 03/20/2021 10:01 AM EST Hospital Encounter [place] [address] Alonzo Cevallos MD [facility] [place] [address] Lung mass Discharge Disposition: Home Social History [...] PM EDT Office Visit Hematology/Oncology at [address] [address] Chase Mckay MD [facility] [place] [address] documented as of this encounter Procedures Procedure [...] who have questions please contact the health hospice care sales consultant that requested your imaging first. ? Narrative 03/20/2021 3:34 PM EST EXAMINATION: NM PET CT STANDARD SKULL BASE TO MID-THIGH CLINICAL HISTORY: 70-year-old female with lung mass with left lower lobe obstruction and bladder mass presents for staging exam TECHNIQUE: Following IV injection of 43-hfthrm-1-deoxyglucose (FDG) a standard uptake of approximately 60 [...] staging exam TECHNIQUE: Following IV injection of 02-dhnwfl-6-deoxyglucose (FDG) astandard uptake of approximately 60 minutes, [...] patients who have questions please contactthe health hospice care sales consultant that requested your imaging first. Alonzo Cevallos MD IMG PET ORDERABLES documented [...] mCi documented in this encounter Care Teams Medical Receptionist Medical Assistant Relationship Specialty Start Date End Date Eren Shah DNP PCP - General Family Medicine 03/20/21 06/10/22 documented as of this encounter
--- OUTSIDE RECORDS SUMMARY | 2023-12-08 03:39 | XMS_ITS | Encounter Summary ---
[place] [address] Care Team Providers Care Engraver Hand Hard Metals Name Role Phone Eren Shah CHELSEA Primary Care Provider [phone] [phone] Encounter Details Date Type Department Care Team (Latest Contact Info) Description 04/16/2021 11:20 AM EST Laboratory Appointment Lab [address] [place] [phone] Metastatic urothelial carcinoma; Abnormal results of thyroid [...] PM EDT Office Visit Hematology/Oncology at [address] [address] Chase Mckay MD [facility] [address] [place] [address] documented as of this encounter Procedures Procedure [...] in diseases classified elsewhere COMPREHENSIVE METABOLIC PANEL STAT 04/16/2021 11:56 AM EST Metastatic urothelial carcinoma documented in this encounter Results * (ABNORMAL) Differential, Automated (04/16/2021 11:56 AM EST) Neutrophil % 76.4 % [facility] Neutrophil Absolute 17.99(H) 1.70 - 6.10 x10(3)/ L [facility] Lymph % 10.3 % [facility] Lymphocytes Abs 2.4 0.9 - 3.2 x10(3)/ L [facility] Monocyte % 5.0 % [facility] Monocyte Abs 1.2(H) 0.3 - 0.9 x10(3)/[facility] Eos % 7.1 % [facility] Eosinophils Abs 1.7(H) 0.0 - 0.4 x10(3)/[facility] Basophil % 0.5 % [facility] Baso Absolute 0.1 0.0 - 0.1 x10(3)/[facility] Immature Gran % 0.70 % [facility] Comment: Immature granulocytes(IG's)percentage and absolute count will include metamyelocytes, myelocytes, and promyelocytes. Blood smears from CBCs yielding IG's will be scanned manually for concordance. If this scan disagrees with the automated IG or if promyelocytes are noted, a manual differential will be performed. Immature Gran Absolute 0.16(H) 0.00 - 0.04 x10(3)/[facility] Blood 04/16/2021 11:5 6 AM EST 04/16/2021 12:00 PM EST Narrative Resulting Agency Comment Spec In Lab Jose Lange MD HEMATOLOGY ORDERABLE S [facility] [place] [address] * (ABNORMAL) Hemogram (04/16/2021 11:56 AM EST) White Blood Cell 23.5(H) 4.0 - 9.5 x10(3)/[facility] Red Blood Cell 3.63(L) 4.00 - 5.21 x10(6)/[facility] Hemoglobin 9.2(L) 11.7 - 15.5 g/dL [facility] Hematocrit 30.1(L) 35.7 - 45.8 % [facility] Mean Cell Volume 82.9 82.6 - 94.4 fL [facility] Mean Cell Hemoglobin 25.3(L) 27.1 - 32.0 pg [facility] Mean Cell Hemoglobin Concentration 30.6(L) 31.7 - 35.0 g/dL [facility] Platelet 873(H) 145 - 357 x10(3)/mc L [facility] RDW Standard Deviation 61.5(H) 37.0 - 46.0 fL [facility] RDW coefficient of variation 20.1(H) 11.5 - 14.1 % [facility] Mean Platelet Volume 8.8 7.6 - 12.9 fL [facility] NRBC% auto 0.0 % [facility] NRBC Absolute 0.000 0.000 - 0.000 x10(3)/ L [facility] Blood 04/16/2021 11:5 6 AM EST 04/16/2021 12:00 PM EST Narrative Resulting Agency Comment Spec In Lab Jose Lange MD HEMATOLOGY ORDERABLE S [facility] [place] [address] * (ABNORMAL) Comprehensive metabolic panel (non-fasting) (04/16/2021 11:56 AM EST) Glucose 94 65 - 199 mg/dL [facility] Comment:Diabetes: >=200 mg/d L plus symptoms Blood Urea Nitrogen 29(H) 8 - 18 mg/dL [facility] Creatinine 1.51(H) 0.70 - 1.20 mg/dL [facility] Sodium 136 135 - 145 mmol/L [facility] Potassium 4.5 3.5 - 5.0 mmol/L [facility] Comment: Please note: ??Patients with WBC >100,000 may have falsely elevated Potassium levels. ??For accurate Potassium quantification in these patients send serum separator tube (gold top) for subsequent determinations. ??Contact the Clinical Chemistry Laboratory if there are any questions. Chloride 105 98 - 107 mmol/L [facility] Carbon Dioxide 19(L) 22 - 31 mmol/L [facility] Anion Gap 12 5 - 15 mmol/L [facility] Calcium 10.0 8.5 - 10.5 mg/dL [facility] Protein, Total 8.2(H) 6.1 - 8.0 g/dL [facility] Albumin 3.5 3.2 - 5.2 g/dL [facility] Aspartate Aminotransferase 11 0 - 30 unit/L [facility] Alanine Aminotransferase 14 0 - 30 unit/L [facility] Alkaline Phosphatase 85 35 - 105 unit/L [facility] Bilirubin, Total 0.3 0.2 - 1.3 mg/dL [facility] Est Glomerular Filtration Rate 35(L) >=60 mL/min/1. 73 m?? [facility] Comment: This patient? s [...] In Lab Jose Lange MD CHEMISTRY ORDERABLES [facility] [address] * (ABNORMAL) T4, free (04/16/2021 11:56 AM EST) Free T4 0.85(L) 0.93 - 1.70 ng/dL [facility] Comment: Reference Interval (ng/dL): Females: ??First Trimester: 0.97-1.68 ??Second Trimester: 0.77-1.51 ??Third Trimester: 0.77-1.49 Blood 04/16/2021 11:5 6 AM EST 04/16/2021 12:00 PM EST Narrative Resulting Agency Comment Spec In Lab Jose Lange MD CHEMISTRY ORDERABLES Performing Organization Address [facility] Co de Phone Number [facility] [place] [address] * TSH (04/16/2021 11:56 AM EST) Thyroid Stimulating Hormone 2.98 0.27 - 4.20 mcIU/mL [facility] Comment: Reference Interval (mcIU/mL): Females: ??First Trimester: 0.23-3.88 ??Second Trimester: 0.22-3.90 ??Third Trimester: 0.44-4.66 Blood 04/16/2021 11:5 6 AM EST 04/16/2021 12:00 PM EST Narrative Resulting Agency Comment Spec In Lab Jose Lange MD CHEMISTRY ORDERABLES Performing Organization Address [facility] Co de Phone Number [facility] [place] [address] documented in this encounter Visit Diagnoses Diagnosis Metastatic urothelial carcinoma Secondary malignant neoplasm of other urinary organs Abnormal results of thyroid function studies Nonspecific abnormal results of thyroid function study 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
--- OUTSIDE RECORDS SUMMARY | 2023-12-08 03:39 | XMS_ITS | Encounter Summary ---
Author Organization [facility] Address [facility] [place] [address] Care Team Providers Care Plant Maintenance Engineer Name Role Phone Eren Shah DNP Primary Care Provider [phone] [phone] Encounter Details Date Type Department Care Team (Late st Contact Info) Description 04/18/2021 Notes Only Hematology/Oncology at [address] [address] Elizabeth Mccray, [facility] OFFICE OF CARE MANAGEMENT Social History Tobacco [...] this encounter Progress Notes * Elizabeth Mccray, FLATWORK FEEDER - 04/18/2021 10:17 AM EST Reason for Referral: Brief assessment of social and emotional needs. Met with pt during her first infusion to introduce myself and role of manager social responsibility to assess/address barriers to getting to and [...] daughter assists as needed. Pt does drive. [employer] transported her today. Pt concerned about the cost to daughter for travel and assisted pt with 2/$25 gas cards from the [employer] donation. Work/Finances/Insurance: Pt is retired having worked 20 years at a [employer]. She has Medicare A&B. She indicated she has applied for Medicaid. Gave pt the contact number and NSA to MARIA E/Richard as a resource to her. Advance Directives: Pt indicated she completed a DNR' and it is in file at [facility]. Pt gave permission to see if we can get a copy for her record. Gave pt a copy of the [place] advance directive booklet/form to review also. (Add: Unable to find any forms on [facility] site.) Utilization of Community Resources: Medicaid application in; food assistance; sister contacted the [employer] for financial assistance for pt. Joie/Spirtuality: Adjustment [...] Patient Financial Assistance/Insurance Plan: Informed pt of FLATWORK FEEDER availability and contact information. Will follow to assess/address psychosocial needs. HELEN Trinh, INTERMODAL TRUCK DRIVER, OSW-C Decal Transferrer [facility] documented in this encounter Plan of Treatment Upcoming Encounters Date Type Department Care Team (Late st Contact Info) Description 12/08/2023 3:30 PM EDT Office Visit Hematology/Oncology at [address] [phone] Chase Mckay MD [facility] DR HEMATOLOGY [place] [address] documented as of this encounter Visit Diagnoses Not on filedocumented in this encounter Care Teams Plant Maintenance Engineer Relationship Specialty Start Date End Date Eren Shah DNP PCP - General Family Medicine 03/20/21 06/10/22 documented as of this encounter
--- OUTSIDE RECORDS SUMMARY | 2023-12-08 03:39 | XMS_ITS | Encounter Summary ---
Author Organization [facility] Address [facility] [place] [address] Care Team Providers Care Dye Weigher Name Role Phone Eren Shah DNP Primary Care Provider Encounter Details Date Type Department Care Team (Late st Contact Info) Description 04/04/2021 1:00 PM EST - 04/04/2021 3:25 PM EST Surgery [place] [phone] BackerAlonzo MD [facility] [place] [address] BRONCH, W ENDOBRONCHIAL ULTRASOUND (EBUS) GUIDED SAMPLING, [...] have prescribed an antibiotic course (Augmentin) to [facility] in [place] ??? We will be in contact [...] our office at . There is someone hospital monitor to speak with 18/11. Alonzo Cevallos MD, [...] Section of Pulmonary & Critical Care Pager: [phone] documented in this encounter Miscellaneous Notes * [...] Descriptions: Airway Examination: An Olympus P190 and 4VG099 flexible bronchoscope and Oscar Storz 12 mm/43 [...] (4 lymph node stations): The Olympus EBUS ([id number]) scope was inserted, lymph node inspection undertaken [...] to continue with the procedure. Tumor/Tissue Debulking (46323): The left lower lobe was accessed and [...] Topical cold saline was administered. Therapeutic Suctioning (61843): At least 15-20 min of operative time [...] Section of Pulmonary & Critical Care Pager: [phone] documented in this encounter Plan of Treatment Upcoming Encounters Date Type Department Care Team (Late st Contact Info) Description 12/08/2023 3:30 PM EDT Office Visit Hematology/Oncology at [address] [phone] Chase Mckay MD [facility] DR HEMATOLOGY [place] [address] documented as of this encounter Procedures Procedure Name Priority Date/Time Associated Diagnosis Comments XR CHEST ONE VIEW STAT 04/04/2021 3:0 3 PM EST SPECIMEN TO PATHOLOGY Routine 04/04/2021 1:54 PM EST SOLID TUMOR NGS PANEL Routine 04/04/2021 1:52 PM EST SURGICAL PATHOLOGY REPORT Routine 04/04/2021 1:52 PM EST NON-INSOLE DOUBLER FINAL REPORT Routine 04/04/2021 1:41 PM EST NON-INSOLE DOUBLER FINAL REPORT Routine 04/04/2021 1:41 PM EST NON-INSOLE DOUBLER FINAL REPORT Routine 04/04/2021 1:41 PM EST NON-INSOLE DOUBLER FINAL REPORT Routine 04/04/2021 1:41 PM EST CYTOPATHOLOGY NON-GYNECOLOGICAL Routine 04/04/2021 1:41 PM EST CYTOPATHOLOGY NON-GYNECOLOGICAL Routine 04/04/2021 1:41 PM EST CYTOPATHOLOGY NON-GYNECOLOGICAL Routine 04/04/2021 1:41 PM EST CYTOPATHOLOGY NON-GYNECOLOGICAL Routine 04/04/2021 1:41 PM EST CYTOPATHOLOGY NON-GYNECOLOGICAL Routine 04/04/2021 1:12 PM EST Bronchoscopy, Diagnostic W Lavage (52912) Yes 04/04/2021 12:49 PM EST Abnormal chest CT Airway obstruction Lung mass Mediastinal adenopathy [facility] Ebus Guided Sampl 3/> Node Station/Strux ([id number]) Yes 04/04/2021 12:49 PM EST Abnormal chest [...] who have questions please contact the health adult care provider that requested your imaging first. ? Electronically signed by: Courtney Mcfadden MD, [facility] ([phone]), at 04/04/2021 3:14 PM Narrative 04/04/2021 3:14 [...] patients who have questions please contactthe health adult care provider that requested your imaging first. Alonzo Cevallos MD IMG DX ORDERABLES * Specimen to Pathology (04/04/2021 1:54 PM EST) AP Specimen 04/04/2021 1:54 PM EST 04/04/2021 1:54 PM EST Narrative [facility] - 04/04/2021 1:54 PM EST Specimen requisition ordered. ??Separate Pathology report to follow Alonzo Cevallos MD PATHOLOGY/CYTOLOGY O RDERABLES [facility] [place] [address] * Surgical Pathology Report (04/04/2021 1:52 PM EST) Final Diagnosis [id number] ? Location: [facility]; [facility]; A The signing pathologist has (i) [...] The assay was performed according to the remote inpatient coder's instructions using Anti-PD-L1 (22C3, pharmDX) antibody. Electronically signed by: ?Herbert Ford MD Verified: ??04/11/2021 8:14 ?? Pathologist Performed at: ??-[facility] [place], [place], [place] ?Surgical Pathology DIAGNOSIS A - Lung, ??left lower lobe mass, debulking: ??- Adenocarcinoma, consistent with lung primary. Electronically signed by: ?Sana Dowell MD Verified: ??04/06/2021 11:16 ??Pathologist Performed at: ??-[facility] [place], [place], [place] DISCUSSION Sections show an invasive, predominantly [...] labeled A1. ??shb 04/11/2021 8:14 AM EST [facility] LUNG STRUCTURE / Unknown 04/04/2021 1:52 PM EST 04/04/2021 1:52 PM EST Alonzo Cevallos MD PATHOLOGY/CYTOLOGY O RDERAJASS [facility] [place] [address] * Solid Tumor NGS Panel (04/04/2021 1:52 PM EST) Tissue 04/04/2021 1:52 PM EST 04/09/2021 12:17 PM EST Narrative Resulting Agency Comment Spec In Lab Alonzo Cevallos MD PATHOLOGY/CYTOLOGY O RDERABLES [facility] [place] [address] * Non-Machine Erector Final Report (04/04/2021 1:41 PM EST) Diagnosis Discussion [id number] ? Location: [facility]; [facility]; A The signing pathologist has (i) examined the relevant preparation(s) for the specimen(s) and (ii) rendered or confirmed the diagnosis(es). . ? Non-Machine Erector Final DIAGNOSIS Negative for Malignancy Electronically signed by: ?Keven Pelayo MD Verified: ??04/06/2021 17:47 ??Pathologist Performed at: ??-[facility] [place] [place], [place], [place] DISCUSSION Lymph node, station 11R (EBUS-guided [...] Cell Block 1. 04/06/2021 5:47 PM EST [facility] LYMPH NODE SPECIMEN / Unknown 04/04/2021 1:41 PM EST 04/04/2021 1:41 PM EST Alonzo Cevallos MD PATHOLOGY/CYTOLOGY O RDERABLES [facility] [place] [address] * Non-Machine Erector Final Report (04/04/2021 1:41 PM EST) Diagnosis Discussion [id number] ? Location: [facility]; [facility]; A The signing pathologist has (i) examined the relevant preparation(s) for the specimen(s) and (ii) rendered or confirmed the diagnosis(es). . ? Non-Machine Erector Final DIAGNOSIS Negative for Malignancy Electronically signed by: ?Pierce CAMARGO, Keven Verified: ??04/06/2021 17:46 ??Pathologist Performed at: ??-[facility] [place] [place], [place], [place] DISCUSSION Lymph node, station 4L (EBUS-guided [...] Cell Block 1. 04/06/2021 5:46 PM EST [facility] LYMPH NODE SPECIMEN / Unknown 04/04/2021 1:41 PM EST 04/04/2021 1:41 PM EST Alonzo Cevallos MD PATHOLOGY/CYTOLOGY O COSMO Performing Organization Address [facility] Co de Phone Number [facility] [place] [address] * Non-Machine Erector Final Report (04/04/2021 1:41 PM EST) Diagnosis Discussion [id number] ? Location: [facility]; [facility]; The signing pathologist has (i) examined the relevant preparation(s) for the specimen(s) and (ii) rendered or confirmed the diagnosis(es). . ? Non-Machine Erector Final DIAGNOSIS Negative for Malignancy Electronically signed by: ?Pierce CAMARGO, Keven Verified: ??04/06/2021 17:40 ??Pathologist Performed at: ??-[facility] [place] [place], [place], [place] DISCUSSION Lymph node, station 4R (EBUS-guided [...] Cell Block 1. 04/06/2021 5:40 PM EST [facility] LYMPH NODE SPECIMEN / Unknown 04/04/2021 1:41 PM EST 04/04/2021 1:41 PM EST Alonzo Cevallos MD PATHOLOGY/CYTOLOGY O COSMO Performing Organization Address [facility]/ZIP Co de Phone Number [facility] [place] [address] * Non-Machine Erector Final Report (04/04/2021 1:41 PM EST) Diagnosis Discussion [id number] ? Location: [facility]; [place]; A The signing pathologist has (i) examined the relevant preparation(s) for the specimen(s) and (ii) rendered or confirmed the diagnosis(es). . ? Non-Machine Erector Final DIAGNOSIS Positive for Malignancy Electronically signed by: ?Keven Pelayo MD Verified: ??04/06/2021 17:35 ??Pathologist Performed at: ??-[facility] [place] [place], [place], [place] DISCUSSION Lymph node, station 7 (EBUS-guided [...] ??left lower lobe mass lung ?? debulking ([id number]), the ??immunostain findings in the present case are compatible ?with lung primary. PD-L1 immunohistochemistry and molecular panel are ordered on the ? concurrent surgical specimen ([id number]). --- Immunohistochemistry Studies --- Interpretation: See note. [...] Cell Block 1. 04/06/2021 5:35 PM EST [facility] LYMPH NODE SPECIMEN / Unknown 04/04/2021 1:41 PM EST 04/04/2021 1:41 PM EST Alonzo Cevallos MD PATHOLOGY/CYTOLOGY O COSMO Performing Organization Address City/[facility]/ZIP Co de Phone Number [facility] [place] [address] * Cytopathology Non-Gynecological (04/04/2021 1:41 PM EST) AP Specimen 04/04/2021 1:41 PM EST 04/04/2021 1:41 PM EST Narrative [facility] - 04/04/2021 1:41 PM EST Specimen requisition ordered. ??Separate Pathology report to follow Alonzo Cevallos MD PATHOLOGY/CYTOLOGY O COSMO Performing Organization Address [facility]/ZIP Co de Phone Number [facility] [place] [address] * Cytopathology Non-Gynecological (04/04/2021 1:41 PM EST) AP Specimen 04/04/2021 1:41 PM EST 04/04/2021 1:41 PM EST Narrative [facility] - 04/04/2021 1:41 PM EST Specimen requisition ordered. ??Separate Pathology report to follow Alonzo Cevallos MD PATHOLOGY/CYTOLOGY O COSMO Performing Organization Address City/[facility] Co de Phone Number [facility] [place] [address] * Cytopathology Non-Gynecological (04/04/2021 1:41 PM EST) AP Specimen 04/04/2021 1:41 PM EST 04/04/2021 1:41 PM EST Narrative [facility] - 04/04/2021 1:41 PM EST Specimen requisition ordered. ??Separate Pathology report to follow Alonzo Cevallos MD PATHOLOGY/CYTOLOGY O COSMO Performing Organization Address [facility] [place] [place] [address] * Cytopathology Non-Gynecological (04/04/2021 1:41 PM EST) AP Specimen 04/04/2021 1:41 PM EST 04/04/2021 1:41 PM EST Narrative [facility] - 04/04/2021 1:41 PM EST Specimen requisition ordered. ??Separate Pathology report to follow Alonzo Cevallos MD PATHOLOGY/CYTOLOGY O COSMO Performing Organization Address [facility] Co de Phone Number [facility] [place] [address] * Cytopathology Non-Gynecological (04/04/2021 1:12 PM EST) AP Specimen 04/04/2021 1:12 PM EST 04/04/2021 1:12 PM EST Narrative [facility] - 04/04/2021 1:12 PM EST Specimen requisition ordered. ??Separate Pathology report to follow Alonzo Cevallos MD PATHOLOGY/CYTOLOGY O COSMO Performing Organization Address City/[facility] Co de Phone Number [facility] [place] [address] documented in this encounter Visit Diagnoses Diagnosis Abnormal chest CT Nonspecific (abnormal) findings on radiological and other examination of other intrathoracic organs Airway obstruction Other diseases of respiratory system, not elsewhere classified Lung mass Swelling, mass, or lump in chest Mediastinal adenopathy Enlargement of lymph nodes Primary malignant neoplasm of left lower lobe [...] CRNA) documented in this encounter Care Teams Dye Weigher Relationship Specialty Start Date End Date Eren Shah DNP PCP - General Family Medicine 03/20/21 06/10/22 documented as of this encounter
--- OUTSIDE RECORDS SUMMARY | 2023-12-08 03:39 | XMS_ITS | Encounter Summary ---
Author Organization [facility] Address [facility] [place] [address] Care Team Providers Care Teacher Associate Name Role Phone Eren Shah DNP Primary Care Provider Encounter Details Date Type Department Care Team (Late st Contact Info) Description 04/17/2021 9:30 AM EST Office Visit Hematology/Oncology at [address] [phone] Jose Rhoades MD [facility] DR HEMATOLOGY [place] [address] Abena Ogden, RN Metastatic urothelial carcinoma; Primary [...] distinct lung primary. She was seen by chief operator lock tender , who recommended rigid bronchoscopy with attempts [...] for adenocarcinoma of lung origin Social History: [id number]-[id number] smoking history quit 6 years ago, does [...] The assay was performed according to the digital performance analyst's ??instructions using Anti-PD-L1 (22C3, pharmDX) antibody. Electronically signed by: ?Herbert Ford MD Verified: ??04/11/2021 8:14 ?? Pathologist Performed at: ??-[facility] [place], [place], [place] ? Surgical Pathology DIAGNOSIS A - Lung, ??left lower lobe mass, debulking: ?? - Adenocarcinoma, consistent with lung primary. Electronically signed by: ?Sana Dowell MD Verified: ??04/06/2021 11:16 ??Pathologist Performed at: ??-[facility] [place] [place], [place], [place] DISCUSSION Sections show an invasive, predominantly [...] of presumably metastatic urothelial carcinoma which include [place] based chemotherapy versus immunotherapy. 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
--- OUTSIDE RECORDS SUMMARY | 2023-12-08 03:39 | XMS_ITS | Encounter Summary ---
Author Organization [facility] [place] [address] Care Team Providers Care Surface Logging Systems Logger Name Role Phone Eren Shah CHELSEA Primary Care Provider [phone] Encounter Details Date Type Department Care Team (Late st Contact Info) Description 04/10/2021 Telephone Emergency [place] [phone] Kang Fleming PA [facility] [place] [address] Social History Tobacco Use Types Packs/Day Years [...] PM EDT Office Visit Hematology/Oncology at [address] [phone] Chase Mckay MD [facility] DR [place] [address] documented as of this encounter Visit Diagnoses Not on filedocumented in this encounter Care Teams Surface Logging Systems Logger Relationship Specialty Start Date End Date Eren Shah DNP PCP - General Family Medicine 03/20/21 06/10/22 documented as of this encounter
--- OUTSIDE RECORDS SUMMARY | 2023-12-08 03:39 | XMS_ITS | Encounter Summary ---
Author Organization [facility] Address [facility] [place] [address] Care Team Providers Care Hob Machine Operator Name Role Phone Eren Shah CHELSEA Primary Care Provider [phone] Encounter Details Date Type Department Care Team (Latest Contact Info) Description 04/20/2021 6:27 AM EST - 04/20/2021 11:59 PM [facility] Hospital [place] [phone] Discharge Disposition: Home Social History Tobacco Use [...] PM EDT Office Visit Hematology/Oncology at [address] [phone] Chase Mckay MD [facility] [place] [address] documented as of this encounter Visit Diagnoses Not on filedocumented in this encounter Care Teams Hob Machine Operator Relationship Specialty Start Date End Date Eren Shah DNP PCP - General Family Medicine 03/20/21 06/10/22 documented as of this encounter
--- OUTSIDE RECORDS SUMMARY | 2023-12-08 03:39 | XMS_ITS | Encounter Summary ---
Author Organization [facility] [place] [address] Care Team Providers Care Prosecuting Attorney Name Role Phone Eren Shah CHELSEA Primary Care Provider [phone] Reason for Visit * Reason Comments Chemotherapy Cycle 1, Day 1; Pemb ro * Treatment/Therapy Plan Authorization (Routine) - Closed Specialty Diagnoses / Procedures Referred By Contac t Referred To Contact Hematology and Oncology Diagnoses Metastatic urothelial carcinoma Abnormal thyroid function test Procedures [id number] Jose Barnhart MD [address] [place] [address] DR [place] [address] Jose Lange MD [address] [place] [address] DR HEMATOLOGY [place] [address] Referral ID Status Reason Start Date Expiration Date Visits Re quested Visits Authorized [id number] Closed 04/28/2022 06/24/2023 99 99 Encounter Details Date Type Department Care Team (Late st Contact Info) Description 04/18/2021 9:30 AM EST Infusion Hematology Oncology at [address] [phone] Metastatic urothelial carcinoma; Abnormal thyroid [...] clinic hours (8am-5pm Friday-Friday): pt. can call [phone] with questions or concerns. After clinic hours (5pm-8am Friday-Friday and weekends) pt can call [phone] and ask for the accounts supervisor/oncologist personnel manager. Barb Bullard verbalized understanding of potential chemotherapy [...] PM EDT Office Visit Hematology/Oncology at [address] [phone] Chase Mckay MD [facility] DR [place] [address] documented as of this encounter Visit Diagnoses [...] Job Aid: Adult Flushing & Catheter Care (6809) job aid for additional information regarding guidelines [...] Job Aid: Adult Flushing & Catheter Care (3719) job aid for additional information regarding guidelines and administration., Routine Given 04/18/2021 10:26 AM EST 20 mLs sodium chloride 0.9% infusion 100 mL/hr, Intravenous, CONTINUOUS, Starting on Fri04/18/21 at 0930, Until Fri04/18/21 at 1620 New Bag 04/18/2021 9:35 AM EST 100 mL/hr 100 mL/hr documented in this encounter Care Teams Prosecuting Attorney Relationship Specialty Start Date End Date Eren Shah DNP PCP - General Family Medicine 03/20/21 06/10/22 documented as of this encounter
--- OUTSIDE RECORDS SUMMARY | 2023-12-08 03:39 | XMS_ITS | Encounter Summary ---
Author Organization [facility] Address [facility] [place] [address] Care Team Providers Care Scabbler Name Role Phone Eren Shah DNP Primary Care Provider [phone] Encounter Details Date Type Department Care Team (Late st Contact Info) Description 05/09/2021 9:00 AM EST Office Visit Hematology/Oncology at [address] [phone] Abena Ogden, RN Metastatic urothelial [...] distinct lung primary. She was seen by business assistant , who recommended rigid bronchoscopy with [...] in March. She has not heard from [facility]. She is having intermittent low back pain. Has taken ibuprofen for the discomfort. She is feeling fatigued today. She has filled out a DNR and advance directives. Elizabeth DUNBAR will meet with her today to finalize the paperwork. 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 Electronically signed by: ?Herbert Ford MD Verified: ??04/11/2021 8:14 ?? Pathologist Performed at: ??-[facility] [place], [place], [place] ? Surgical Pathology DIAGNOSIS A - Lung, ??left lower lobe mass, debulking: ?? - Adenocarcinoma, consistent with lung primary. Electronically signed by: ?Sana Dowell MD Verified: ??04/06/2021 11:16 ??Pathologist Performed at: ??-[facility] [place], [place], [place] DISCUSSION Sections show an invasive, predominantly [...] of presumably metastatic urothelial carcinoma which include [place] based chemotherapy versus immunotherapy. Due to her [...] PM EDT Office Visit Hematology/Oncology at [address] [phone] Chase Mckay MD 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
--- OUTSIDE RECORDS SUMMARY | 2023-12-08 03:39 | XMS_ITS | Encounter Summary ---
Author Organization [facility] [place] [address] Care Team Providers Care Cyber Crime Investigator Name Role Phone Eren Shah DNP Primary Care Provider [phone] Encounter Details Date Type Department Care Team (Late st Contact Info) Description 04/04/2021 Orders [place] [phone] Alonzo Cevallos MD [facility] [place] [address] Social History Tobacco Use Types Packs/Day Years [...] PM EDT Office Visit Hematology/Oncology at [address] [phone] Chase Mckay MD [facility] DR HEMATOLOGY [place] [address] documented as of this encounter Visit Diagnoses Not on filedocumented in this encounter Care Teams Cyber Crime Investigator Relationship Specialty Start Date End Date Eren Shah DNP PCP - General Family Medicine 03/20/21 06/10/22 documented as of this encounter
--- OUTSIDE RECORDS SUMMARY | 2023-12-08 03:39 | XMS_ITS | Encounter Summary ---
Author Organization [facility] [place] [address] Care Team Providers Care Research Center Partner Name Role Phone Eren Shah DNP Primary Care Provider [phone] Encounter Details Date Type Department Care Team (Late st Contact Info) Description 03/21/2021 [place] [phone] Nasim Beckwith MD [facility] [place] [address] Social History Tobacco Use Types Packs/Day Years [...] PM EDT Office Visit Hematology/Oncology at [address] [phone] Chase Mckay MD [facility] DR [place] [address] documented as of this encounter Visit Diagnoses Not on filedocumented in this encounter Care Teams Research Center Partner Relationship Specialty Start Date End Date Eren Shah DNP PCP - General Family Medicine 03/20/21 06/10/22 documented as of this encounter
--- OUTSIDE RECORDS SUMMARY | 2023-12-08 03:39 | XMS_ITS | Encounter Summary ---
Author Organization Formerly [facility] [place] [address] Care Team Providers Care Cake Decorator Name Role Phone Eren Shah DNP Primary Care Provider [phone] Encounter Details Date Type Department Care Team (Late st Contact Info) Description 04/13/2021 Telephone Hematology/Oncology at [address] [phone] [facility] [address] HEMATOLOGY [place] [address] Social History Tobacco Use Types Packs/Day Years [...] PM EDT Office Visit Hematology/Oncology at [address] [phone] Chase Mckay MD [facility] DR HEMATOLOGY [place] [address] documented as of this encounter Visit Diagnoses Not on filedocumented in this encounter Care Teams Cake Decorator Relationship Specialty Start Date End Date Eren Shah DNP PCP - General Family Medicine 03/20/21 06/10/22 documented as of this encounter
--- OUTSIDE RECORDS SUMMARY | 2023-12-08 03:39 | XMS_ITS | Encounter Summary ---
Author Organization [facility] Address [facility] [place] [address] Care Team Providers Care Electric Meter Installer Name Role Phone Eren Shah DNP Primary Care Provider [phone] Encounter Details Date Type Department Care Team (Late st Contact Info) Description 05/09/2021 Notes Only Hematology/Oncology at [address] [phone] Elizabeth Mccray, [facility] OFFICE OF CARE MANAGEMENT Social History [...] signed her document in the presence of STEAM SHOVEL OILER and a volunteer. We signed as witnesses. Pt to add her PCP contact information and will then give a copy of her advance directive to us for her file. Pt indicated she has alsocompleted a COLST and requested a copy of this also. Pt is not receiving treatment to day and she was weepy sharing her disappointment in a delay. Offered support. STEAM SHOVEL OILER will continue to follow pt for support and resources. Supportive Counseling Advance care planning documented in this encounter Plan of Treatment Upcoming Encounters Date Type Department Care Team (Late st Contact Info) Description 12/08/2023 3:30 PM EDT Office Visit Hematology/Oncology at [address] [phone] Chase Mckay MD [facility] HEMATOLOGY [place] [address] documented as of this encounter Visit Diagnoses Not on filedocumented in this encounter Care Teams Electric Meter Installer Relationship Specialty Start Date End Date Eren Shah DNP PCP - General Family Medicine 03/20/21 06/10/22 documented as of this encounter
--- OUTSIDE RECORDS SUMMARY | 2023-12-08 03:39 | XMS_ITS | Encounter Summary ---
[place] [address] Care Team Providers Care Production Roustabout Name Role Phone Eren Shah CHELSEA Primary Care Provider [phone] Reason for Referral * Diagnostic Test (Routine) - Closed Specialty Diagnoses / Procedures Referred By Contac t Referred To Contact Radiology Diagnoses Metastatic urothelial carcinoma Procedures [facility] Jose Solano MD [facility] [address] [place] [address] [facility] [place] [address] Referral ID Status Reason Start Date Expiration Date V isits Requested Visits Authorized [id number] Closed Specialty Service Requested 03/27/2021 09/24/2022 1 1 Reason for Visit * Diagnostic Test (Routine) - Closed Specialty Diagnoses / Procedures Referred By Contac t Referred To Contact Radiology Diagnoses Metastatic urothelial carcinoma Procedures IR [facility] Jose Solano MD [facility] [address] [place] [address] [facility] [place] [address] Referral ID Status Reason Start Date Expiration Date V isits Requested Visits Authorized [id number] Closed Specialty Service Requested 03/27/2021 09/24/2022 1 1 Encounter Details Date Type Department Care Team (Latest Contact Info) Description 04/02/2021 9:30 AM EST - 04/02/2021 11:59 PM EST Hospital Encounter Radiology at [facility] [place] [address] Jose Lange MD [facility] [address] [place] [address] Metastatic urothelial carcinoma Discharge Disposition: Home Social [...] from the original note were not included. [facility] Department of Vascular and Interventional Radiology Discharge [...] provided with an ID card stating the auto transmission mechanic and type of port you have. Please carry this with you in a safe place. Bandage: There is a sterile dressing over the port site consisting of small gauze with a clear dressing (Tegaderm or [id number] ). This dressing should be left in place for 48 hours. If the clear dressing becomes loose you should place tape over the edges to secure it in place. Note: If you have steri-strips beneath your dressing, simply allow them to fall off. Do not peel them off. There may be [place] (skin glue) also, allow this to flake [...] is during regular office hours, please call [phone]. If it is after regular office hours, or on weekends or holidays, please call [phone] and ask to speak to the Business Support Liaison responder for Interventional Radiology. XXX You have received [...] of : 1950 AGE: 70 y.o. Address: [address] [place] [address] (home) Mobile: Telephone Information: Referring Provider: Jose Lange REASON FOR VISIT: Order Questions Answers Where will study be performed? [facility] Radiology [120] Prefered insertion location: No Preference [...] 2g Ancef, 3mg midazolam, 150mcg fentanyl ? 3829 to procedure room 6 via stretcher. Onto table supine. All monitors, O2, safety strap in place.Meds per protocol. Laboratory Results: documented in this encounter H&P Notes * Maria Fernanda Saurez PA - 04/02/2021 10:42 AM EST INTERVENTIONAL [...] Questions Answers Where will study be performed? [facility] Radiology [120] Prefered insertion location: No Preference [...] 02/20/2021 IR Nephrostomy Tube Placement Percutaneous Bilateral [facility] INTERVENTIONL RAD Medications: Current Outpatient Medications on [...] Questions Answers Where will study be performed? [facility] Radiology [120] Prefered insertion location: No Preference [...] PM EDT Office Visit Hematology/Oncology at [address] [phone] Chase Mckay MD [facility] [address] [place] [address] documented as of this encounter Procedures Procedure [...] implant Indication: metastatic urothelial carcinoma, durable senior living central venous access for chemotherapy Procedure summary: [...] mLs documented in this encounter Care Teams Production Roustabout Relationship Specialty Start Date End Date Eren Shah DNP PCP - General Family Medicine 03/20/21 06/10/22 documented as of this encounter
--- OUTSIDE RECORDS SUMMARY | 2023-12-08 03:39 | XMS_ITS | Encounter Summary ---
Author Organization [facility] [place] [address] Care Team Providers Care Hold Worker Name Role Phone Eren Shah DNP Primary Care Provider [phone] Encounter Details Date Type Department Care Team (Late st Contact Info) Description 04/04/2021 12:51 PM EST Anesthesia Event [place] [phone] Blayne Aldridge MD [facility] [address] Trevon Saldivar CRNA [facility] [place] [address] Anesthesia Record Procedure Summary Procedure Name Responsible [...] port; superior vena cava; Brooks RANGEL/ [facility]; 8Fr CA Dign[address] CT Port Ref# [id number] Lot# [id number] expires 09/25/2024 04/02/21 1138 by Glo Levy RN (RETIRED) PICC Line - Single Lumen 02/20/21; 1200; Placed at [facility] LDA not present upon assessment; [...] 1051; metacarpal vein (top of hand), right; mqub-vvc-fftpto catheter system; Anatomical Landmarks; 22 gauge; jpmccall; [...] 1238; metacarpal vein (top of hand), right; ehuq-lbz-qxakzb catheter system; 22 gauge, 1 in length; [...] Procedure Summary Date: 04/04/21 Room / Location: [facility] MAIN OR Anesthesia Start: 1251 Anesthesia Stop: [...] All Anesthesia Providers: Anesthesiologist: Blayne Aldridge MD COOKER TENDER: Trevon Saldivar CRNA Student Nurse Budget Engineer: Kevin Sidhu Vitals Value Taken Time BP 114/63 04/04/21 1515 Temp 36.1 ??C (97 ??F) 04/04/21 1416 Pulse 113 04/04/21 1416 Resp 16 04/04/21 1445 SpO2 94 % 04/04/21 1523 Pain Level 0 04/04/21 1445 Vitals shown include unvalidated device data. Patient Location: PACU[facility] Level of Consciousness: Awake and Alert Pain [...] IR Mediport Placement 04/02/2021 Yuval Sinclair PA [facility] INTERVENTIONL RAD ??? IR NEPHROSTOMY TUBE PLACEMENT PERCUTANEOUS BILATERAL 02/20/2021 IR Nephrostomy Tube Placement Percutaneous Bilateral [facility] INTERVENTIONL RAD Social History Tobacco Use ??? [...] status: Reviewed and appropriate Anesthetic Plan: GA, deering airway, get ventillation, ETT back up, piv [...] discussed with patient who. Plan discussed with COOKER TENDER and attending. Anesthesia Screening documented in this encounter Plan of Treatment Upcoming Encounters Date Type Department Care Team (Late st Contact Info) Description 12/08/2023 3:30 PM EDT Office Visit Hematology/Oncology at [address] [phone] Chase Mckay MD [facility] [place] [address] documented as of this encounter Visit Diagnoses [...] mg documented in this encounter Care Teams Hold Worker Relationship Specialty Start Date End Date Eren Shah DNP PCP - General Family Medicine 03/20/21 06/10/22 documented as of this encounter
--- OUTSIDE RECORDS SUMMARY | 2023-12-08 03:39 | XMS_ITS | Encounter Summary ---
Author Organization [facility] [place] [address] Care Team Providers Care Human Resources Supervisor Name Role Phone Eren Shah CHELSEA Primary Care Provider [phone] Encounter Details Date Type Department Care Team (Late st Contact Info) Description 03/28/2021 [place] [phone] Oralia Null Social History Tobacco Use Types [...] PM EDT Office Visit Hematology/Oncology at [address] [phone] Chase Mckay MD [facility] [address] [place] [address] documented as of this encounter Visit Diagnoses Not on filedocumented in this encounter Care Teams Human Resources Supervisor Relationship Specialty Start Date End Date Eren Shah DNP PCP - General Family Medicine 03/20/21 06/10/22 documented as of this encounter
--- OUTSIDE RECORDS SUMMARY | 2023-12-08 03:39 | XMS_ITS | Encounter Summary ---
Author Organization [facility] Address [facility] [place] [address] Care Team Providers Care Lockstitch Binder Name Role Phone Eren Shah CHELSEA Primary Care Provider [phone] Reason for Visit * Reason Onset Date Comments Follow-up 04/30/2021 pt admitted to [facility] for pneumonia , [place] Encounter Details Date Type Department Care Team (Late st Contact Info) Description 04/30/2021 Telephone Hematology/Oncology at [address] [phone] Pamella [place], [place] Follow-up (pt admitted to [facility] for pneumonia , [place]) Social History Tobacco [...] EST Spoke with bobo pt's nurse at [facility] where pt was admitted on 04/26/21. She [...] PM EDT Office Visit Hematology/Oncology at [address] [phone] Chase Mckay MD [facility] DR HEMATOLOGY [place] [address] documented as of this encounter Visit Diagnoses Not on filedocumented in this encounter Care Teams Lockstitch Binder Relationship Specialty Start Date End Date Eren Shah DNP PCP - General Family Medicine 03/20/21 06/10/22 documented as of this encounter
--- OUTSIDE RECORDS SUMMARY | 2023-12-08 03:39 | XMS_ITS | Encounter Summary ---
Author Organization [facility] Address [facility] [place] [address] Care Team Providers Care Soft Metals Engraver Hand Name Role Phone Eren Shah DNP Primary Care Provider [phone] Encounter Details Date Type Department Care Team (Latest Contact Info) Description 04/10/2021 Multidisciplinary Ca re Committee [place] [phone] Alonzo Cevallos MD [facility] [place] [address] Social History Tobacco Use Types Packs/Day Years [...] Section of Pulmonary & Critical Care Pager: [phone] documented in this encounter Plan of Treatment Upcoming Encounters Date Type Department Care Team (Late st Contact Info) Description 12/08/2023 3:30 PM EDT Office Visit Hematology/Oncology at [address] [phone] [facility] [address] HEMATOLOGY [place] [address] documented as of this encounter Visit Diagnoses Not on filedocumented in this encounter Care Teams Soft Metals Engraver Hand Relationship Specialty Start Date End Date Eren Shah DNP PCP - General Family Medicine 03/20/21 06/10/22 documented as of this encounter
--- OUTSIDE RECORDS SUMMARY | 2023-12-08 03:39 | XMS_ITS | Encounter Summary ---
Author Organization [facility]ending [facility] Address [facility] [place] [address] Care Team Providers Care Supervisor Photoengraving Name Role Phone Eren Shah DNP Primary Care Provider Encounter Details Date Type Department Care Team (Latest Contact Info) Description 04/04/2021 11:57 AM EST - 04/04/2021 3:30 PM [facility] Hospital [place] [phone] AdamaerAlonzo MD [facility] [place] [address] Discharge Disposition: Home Social History Tobacco Use [...] have prescribed an antibiotic course (Augmentin) to [employer] in [place] ??? We will be in contact with [...] our office at . There is someone compensation advisor to speak with 18/11. Alonzo Cevallos MD, [...] Section of Pulmonary & Critical Care Pager: [phone] documented in this encounter Miscellaneous Notes * [...] Descriptions: Airway Examination: An Olympus P190 and 8PI716 flexible bronchoscope and Oscar Storz 12 mm/43 [...] (4 lymph node stations): The Olympus EBUS (BF-VS250D) scope was inserted, lymph node inspection undertaken [...] to continue with the procedure. Tumor/Tissue Debulking (55207): The left lower lobe was accessed and [...] Topical cold saline was administered. Therapeutic Suctioning (88062): At least 15-20 min of operative time [...] Section of Pulmonary & Critical Care Pager: [phone] documented in this encounter Plan of Treatment Upcoming Encounters Date Type Department Care Team (Late st Contact Info) Description 12/08/2023 3:30 PM EDT Office Visit Hematology/Oncology at [address] [phone] Chase Mckay MD [facility] [address] [place] [address] documented as of this encounter Procedures Procedure Name Priority Date/Time Associated Diagnosis Comments XR CHEST ONE VIEW STAT 04/04/2021 3:0 3 PM EST SPECIMEN TO PATHOLOGY Routine 04/04/2021 1:54 PM EST SOLID TUMOR NGS PANEL Routine 04/04/2021 1:52 PM EST SURGICAL PATHOLOGY REPORT Routine 04/04/2021 1:52 PM EST NON-INSPECTOR SET UP AND LAY OUT FINAL REPORT Routine 04/04/2021 1:41 PM EST NON-INSPECTOR SET UP AND LAY OUT FINAL REPORT Routine 04/04/2021 1:41 PM EST NON-INSPECTOR SET UP AND LAY OUT FINAL REPORT Routine 04/04/2021 1:41 PM EST NON-INSPECTOR SET UP AND LAY OUT FINAL REPORT Routine 04/04/2021 1:41 PM EST CYTOPATHOLOGY NON-GYNECOLOGICAL Routine 04/04/2021 1:41 PM EST CYTOPATHOLOGY NON-GYNECOLOGICAL Routine 04/04/2021 1:41 PM EST CYTOPATHOLOGY NON-GYNECOLOGICAL Routine 04/04/2021 1:41 PM EST CYTOPATHOLOGY NON-GYNECOLOGICAL Routine 04/04/2021 1:41 PM EST CYTOPATHOLOGY NON-GYNECOLOGICAL Routine 04/04/2021 1:12 PM EST Bronchoscopy, Diagnostic W Lavage (14670) Yes 04/04/2021 12:49 PM EST Abnormal chest CT Airway obstruction Lung mass Mediastinal adenopathy [facility] Ebus Guided Sampl 3/> Node Station/Strux ([id number]) Yes 04/04/2021 12:49 PM EST Abnormal chest [...] questions please contact the health health care consultant that requested your imaging first. ? Electronically signed by: Courtney Mcfadden MD, [facility] ([phone]), at 04/04/2021 3:14 PM Narrative 04/04/2021 3:14 [...] have questions please contactthe health health care consultant that requested your imaging first. Alonzo Cevallos MD IMG DX ORDERABLES * Specimen to Pathology (04/04/2021 1:54 PM EST) AP Specimen 04/04/2021 1:54 PM EST 04/04/2021 1:54 PM EST Narrative [facility] - 04/04/2021 1:54 PM EST Specimen requisition ordered. ??Separate Pathology report to follow Alonzo Cevallos MD PATHOLOGY/CYTOLOGY O RDERABLES [facility] [place] [address] * Surgical Pathology Report (04/04/2021 1:52 PM EST) Final Diagnosis [id number] ? Location: [facility]; [facility]; A The signing pathologist has (i) [...] The assay was performed according to the crop grain or livestock farmer's instructions using Anti-PD-L1 (22C3, pharmDX) antibody. Electronically signed by: ?Herbert Ford MD Verified: ??04/11/2021 8:14 ?? Pathologist Performed at: ??-[facility], [place], [place] ?Surgical Pathology DIAGNOSIS A - Lung, ??left lower lobe mass, debulking: ??- Adenocarcinoma, consistent with lung primary. Electronically signed by: ?Sana Dowell MD Verified: ??04/06/2021 11:16 ??Pathologist Performed at: ??-[facility], [place], [place] DISCUSSION Sections show an invasive, predominantly [...] labeled A1. ??shb 04/11/2021 8:14 AM EST [facility] LUNG STRUCTURE / Unknown 04/04/2021 1:52 PM EST 04/04/2021 1:52 PM EST Alonzo Cevallos MD PATHOLOGY/CYTOLOGY O RDERABLES [facility] [place] [place] [address] * Solid Tumor NGS Panel (04/04/2021 1:52 PM EST) Tissue 04/04/2021 1:52 PM EST 04/09/2021 12:17 PM EST Narrative Resulting Agency Comment Spec In Lab Alonzo Cevallos MD PATHOLOGY/CYTOLOGY O RDERABLES [facility] [place] [address] * Non-Road Mixer Operator Final Report (04/04/2021 1:41 PM EST) Diagnosis Discussion [id number] ? Location: [facility]; [facility]; A The signing pathologist has (i) examined the relevant preparation(s) for the specimen(s) and (ii) rendered or confirmed the diagnosis(es). . ? Non-Road Mixer Operator Final DIAGNOSIS Negative for Malignancy Electronically signed by: ?Pierce CAMARGO, Keven Verified: ??04/06/2021 17:47 ??Pathologist Performed at: ??-[facility], [place], [place] DISCUSSION Lymph node, station 11R (EBUS-guided [...] Cell Block 1. 04/06/2021 5:47 PM EST [facility] LYMPH NODE SPECIMEN / Unknown 04/04/2021 1:41 PM EST 04/04/2021 1:41 PM EST Alonzo Cevallos MD PATHOLOGY/CYTOLOGY O COSMO Performing Organization Address [facility] Phone Number [facility] [place] [address] * Non-Road Mixer Operator Final Report (04/04/2021 1:41 PM EST) Diagnosis Discussion [id number] ? Location: [facility]; [facility]; A The signing pathologist has (i) examined the relevant preparation(s) for the specimen(s) and (ii) rendered or confirmed the diagnosis(es). . ? Non-Road Mixer Operator Final DIAGNOSIS Negative for Malignancy Electronically signed by: ?Keven Pelayo MD Verified: ??04/06/2021 17:46 ??Pathologist Performed at: ??-[facility], [place], [place] DISCUSSION Lymph node, station 4L (EBUS-guided [...] Cell Block 1. 04/06/2021 5:46 PM EST [facility] LYMPH NODE SPECIMEN / Unknown 04/04/2021 1:41 PM EST 04/04/2021 1:41 PM EST Alonzo Cevallos MD PATHOLOGY/CYTOLOGY O RDERABLES Performing Organization Address [facility]/ZIP Co de Phone Number [facility] [place] [address] * Non-Road Mixer Operator Final Report (04/04/2021 1:41 PM EST) Diagnosis Discussion [id number] ? Location: [facility]; [facility]; The signing pathologist has (i) examined the relevant preparation(s) for the specimen(s) and (ii) rendered or confirmed the diagnosis(es). . ? Non-Road Mixer Operator Final DIAGNOSIS Negative for Malignancy Electronically signed by: ?Keven Pelayo MD Verified: ??04/06/2021 17:40 ??Pathologist Performed at: ??-[facility], [place], [place] DISCUSSION Lymph node, station 4R (EBUS-guided [...] Cell Block 1. 04/06/2021 5:40 PM EST [facility] LYMPH NODE SPECIMEN / Unknown 04/04/2021 1:41 PM EST 04/04/2021 1:41 PM EST Alonzo Cevallos MD PATHOLOGY/CYTOLOGY O RDERABLES Performing Organization Address [facility]/ZIP Co de Phone Number [facility] [place] [address] * Non-Road Mixer Operator Final Report (04/04/2021 1:41 PM EST) Diagnosis Discussion [id number] ? Location: [facility]; [facility]; A The signing pathologist has (i) examined the relevant preparation(s) for the specimen(s) and (ii) rendered or confirmed the diagnosis(es). . ? Non-Road Mixer Operator Final DIAGNOSIS Positive for Malignancy Electronically signed by: ?Keven Pelayo MD Verified: ??04/06/2021 17:35 ??Pathologist Performed at: ??-[facility], [place], [place] DISCUSSION Lymph node, station 7 (EBUS-guided [...] lower lobe mass lung ?? debulking ([id number]), the ??immunostain findings in the present case are compatible ?with lung primary. PD-L1 immunohistochemistry and molecular panel are ordered on the ? concurrent surgical specimen ([id number]). --- Immunohistochemistry Studies --- Interpretation: See note. [...] Cell Block 1. 04/06/2021 5:35 PM EST [facility] LYMPH NODE SPECIMEN / Unknown 04/04/2021 1:41 PM EST 04/04/2021 1:41 PM EST Alonzo Cevallos MD PATHOLOGY/CYTOLOGY O COSMO Performing Organization Address City/[facility]/ZIP Co de Phone Number [facility] [place] [address] * Cytopathology Non-Gynecological (04/04/2021 1:41 PM EST) AP Specimen 04/04/2021 1:41 PM EST 04/04/2021 1:41 PM EST Narrative [facility] - 04/04/2021 1:41 PM EST Specimen requisition ordered. ??Separate Pathology report to follow Alonzo Cevallos MD PATHOLOGY/CYTOLOGY O RDVERONIKA Performing Organization Address [facility]/ZIP Co de Phone Number [facility] [place] [address] * Cytopathology Non-Gynecological (04/04/2021 1:41 PM EST) AP Specimen 04/04/2021 1:41 PM EST 04/04/2021 1:41 PM EST Narrative [facility] - 04/04/2021 1:41 PM EST Specimen requisition ordered. ??Separate Pathology report to follow Alonzo Cevallos MD PATHOLOGY/CYTOLOGY O RDERAJASS Performing Organization Address City/[facility]/ZIP Co de Phone Number [facility] [place] [address] * Cytopathology Non-Gynecological (04/04/2021 1:41 PM EST) AP Specimen 04/04/2021 1:41 PM EST 04/04/2021 1:41 PM EST Narrative [facility] - 04/04/2021 1:41 PM EST Specimen requisition ordered. ??Separate Pathology report to follow Alonzo Cevallos MD PATHOLOGY/CYTOLOGY O COSMO Performing Organization Address City/[facility] Co de Phone Number [facility] [place] [address] * Cytopathology Non-Gynecological (04/04/2021 1:41 PM EST) AP Specimen 04/04/2021 1:41 PM EST 04/04/2021 1:41 PM EST Narrative [facility] - 04/04/2021 1:41 PM EST Specimen requisition ordered. ??Separate Pathology report to follow lAonzo Cevallos MD PATHOLOGY/CYTOLOGY O COSMO Performing Organization Address [facility] Co de Phone Number [facility] [place] [address] * Cytopathology Non-Gynecological (04/04/2021 1:12 PM EST) AP Specimen 04/04/2021 1:12 PM EST 04/04/2021 1:12 PM EST Narrative [facility] - 04/04/2021 1:12 PM EST Specimen requisition ordered. ??Separate Pathology report to follow Alonzo Cevallos MD PATHOLOGY/CYTOLOGY O COSMO Performing Organization Address [facility] Co de Phone Number [facility] [place] [address] documented in this encounter Visit Diagnoses Not [...] CRNA) documented in this encounter Care Teams Supervisor Photoengraving Relationship Specialty Start Date End Date Eren Shah DNP PCP - General Family Medicine 03/20/21 06/10/22 documented as of this encounter
--- OUTSIDE RECORDS SUMMARY | 2023-12-08 03:39 | XMS_ITS | Encounter Summary ---
Author Organization [facility] Address [facility] [place] [address] Care Team Providers Care Leverman Name Role Phone Eren Shah CHELSEA Primary Care Provider [phone] Reason for Visit * Reason Onset Date Comments Other 03/28/2021 chart review bef ore bronch Encounter Details Date Type Department Care Team (Late st Contact Info) Description 03/28/2021 Notes [place] [phone] Erma Rodriguez, RN Other (chart review before [...] Erma Rodriguez RN Department of Pulmonary 5C, [facility] / Pager: [phone] documented in this encounter Plan of Treatment Upcoming Encounters Date Type Department Care Team (Late st Contact Info) Description 12/08/2023 3:30 PM EDT Office Visit Hematology/Oncology at [address] [phone] Chase Mckay MD [facility] DR HEMATOLOGY [place] [address] documented as of this encounter Visit Diagnoses Not on filedocumented in this encounter Care Teams Leverman Relationship Specialty Start Date End Date Eren Shah DNP PCP - General Family Medicine 03/20/21 06/10/22 documented as of this encounter
--- OUTSIDE RECORDS SUMMARY | 2023-12-08 03:40 | XMS_ITS | Encounter Summary ---
Author Organization [facility] [place] [address] Care Team Providers Care Car Detailer Name Role Phone Unavailable Primary Care Provider Unavailabl e Encounter Details Date Type Department Care Team (Late st Contact Info) Description 02/19/2021 4:30 PM EDT Ancillary Procedure [place] [address] Jaycee Mckeon MD [address] [place] [address] Social History Tobacco Use Types Packs/Day Years [...] PM EDT Office Visit Hematology/Oncology at [address] [phone] Cahse Mckay MD [facility] DR [place] [address] documented as of this encounter Procedures Procedure [...] FILM LIBRARY ORD ERABLES Performing Organization Address City/State/[facility] Co de Phone Number [facility] [place], [place] documented in this encounter Visit Diagnoses Not on filedocumented in this encounter
--- OUTSIDE RECORDS SUMMARY | 2023-12-08 03:40 | XMS_ITS | Encounter Summary ---
Author Organization [facility] [place] [address] Care Team Providers Care Meter Calibrator Name Role Phone None Primary Care Provider Unavailabl e Encounter Details Date Type Department Care Team (Late st Contact Info) Description 02/27/2021 Telephone [place] [address] Oralia Null Social History Tobacco Use Types [...] PM EDT Office Visit Hematology/Oncology at [address] [phone] Chase Mckay MD [facility] DR HEMATOLOGY [place] [address] documented as of this encounter Visit Diagnoses Not on filedocumented in this encounter Care Teams Meter Calibrator Relationship Specialty Start Date End Date None None PCP - General 02/20/21 03/19/21 documented as of this encounter
--- OUTSIDE RECORDS SUMMARY | 2023-12-08 03:40 | XMS_ITS | Encounter Summary ---
Author Organization [facility] [place] [address] Care Team Providers Care Oil Speculator Name Role Phone None Primary Care Provider Unavailabl e Encounter Details Date Type Department Care Team (Late st Contact Info) Description 03/05/2021 Telephone [place] [address] Consuelo Monson Social History Tobacco Use Types [...] PM EDT Office Visit Hematology/Oncology at [address] [phone] Chase Mckay MD [facility] DR HEMATOLOGY [place] [address] documented as of this encounter Visit Diagnoses Not on filedocumented in this encounter Care Teams Oil Speculator Relationship Specialty Start Date End Date None None PCP - General 02/20/21 03/19/21 documented as of this encounter
--- OUTSIDE RECORDS SUMMARY | 2023-12-08 03:40 | XMS_ITS | Encounter Summary ---
Author Organization [facility] [place] [address] Care Team Providers Care Roof Designer Name Role Phone None Primary Care Provider Unavailabl e Encounter Details Date Type Department Care Team (Late st Contact Info) Description 02/21/2021 Ancillary Procedure [place] [address] Alonzo Cevallos MD [facility] [place] [address] Social History Tobacco Use Types Packs/Day Years [...] PM EDT Office Visit Hematology/Oncology at [address] [phone] Chase Mckay MD [facility] DR [place] [address] documented as of this encounter Procedures Procedure Name Priority Date/Time Associated Diagnosis Comments FILM LIBRARY STORAGE ONLY MR HEAD Routine 02/21/2021 12:00 AM EDT documented in this encounter Results * Film Library- Storage Only MR Head (02/21/2021 12:00 AM EDT) Narrative [facility] - 02/27/2021 12:57 PM EDT This exam is auto-finalizing. It's purpose is for storage only. Alonzo Cevallos MD IMG FILM LIBRARY ORD ERABLES [facility] [place], [place] documented in this encounter Visit Diagnoses Not on filedocumented in this encounter Care Teams Roof Designer Relationship Specialty Start Date End Date None None PCP - General 02/20/21 03/19/21 documented as of this encounter
--- OUTSIDE RECORDS SUMMARY | 2023-12-08 03:40 | XMS_ITS | Encounter Summary ---
Author Organization [facility] Address [facility] [place] [address] Care Team Providers Care Lead Installer Name Role Phone Eren Shah CHELSEA Primary Care Provider [phone] Reason for Visit * Consultation (Routine) - Closed Specialty Diagnoses / Procedures Referred By Contjoslyn t Referred To Contact Pulmonology Diagnoses Lung mass Joelle García MD [address] [place] [address] [facility] [address] [place] [phone] Referral ID Status Reason Start Date Expiration Date Visits Re quested Visits Authorized [id number] Closed 02/20/2021 02/20/2022 1 1 Encounter Details Date Type Department Care Team (Late st Contact Info) Description 03/20/2021 1:40 PM EST Office Visit [place] [address] Jean Carlos Sotelo MD [facility] [place] [address] High grade urothelial carcinoma present on urine [...] lives with daughter Employment: retired, worked at [employer] 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 [employer] Exam: Patient Vitals for the past [...] Section of Pulmonary and Critical Care Medicine [address] Room [address] [place] [address] Phone Pul Generic: [phone] [email or web address] Pager #[phone] documented in this encounter Plan of Treatment Upcoming Encounters Date Type Department Care Team (Late st Contact Info) Description 12/08/2023 3:30 PM EDT Office Visit Hematology/Oncology at [address] [phone] Chase Mckay MD [facility] [address] [place] [address] documented as of this encounter Visit Diagnoses Diagnosis High grade urothelial carcinoma present on urine cytology Mass of lower lobe of left lung Airway obstruction Other diseases of respiratory system, not elsewhere classified SOB (shortness of breath) Shortness of breath Primary malignant neoplasm of left lower lobe of lung Malignant neoplasm of lower lobe, bronchus, or lung Metastatic urothelial carcinoma 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
--- OUTSIDE RECORDS SUMMARY | 2023-12-08 03:40 | XMS_ITS | Encounter Summary ---
Author Organization [facility] [place] [address] Care Team Providers Care Tin Flopper Name Role Phone None Primary Care Provider Unavailabl e Reason for Referral * Diagnostic Test (Emergency) - Closed Specialty Diagnoses / Procedures Referred By Contac t Referred To Contact Radiology Diagnoses Lung mass Procedures NM PET CT Skull Base to Mid-thigh Alonzo Cevallos MD [facility] [address] [place] [address] Referral ID Status Reason Start Date Expiration Date V isits Requested Visits Authorized [id number] Closed Specialty Service Requested 02/20/2021 08/21/2022 1 1 Encounter Details Date Type Department Care Team (Late st Contact Info) Description 02/20/2021 Orders [place] [address] Alonzo Cevallos MD [facility] [place] [address] Lung mass Social History Tobacco [...] PM EDT Office Visit Hematology/Oncology at [address] [phone] Chase Mckay MD [facility] [address] [place] [address] documented as of this encounter Results * [...] questions please contact the health child care worker that requested your imaging first. ? Electronically signed by: Billy Anderson MD, [facility] ([phone]), at 03/20/2021 3:34 PM Narrative 03/20/2021 3:34 PM EST EXAMINATION: NM PET CT STANDARD SKULL BASE TO MID-THIGH CLINICAL HISTORY: 70-year-old female with lung mass with left lower lobe obstruction and bladder mass presents for staging exam TECHNIQUE: Following IV injection of 29-fimcig-1-deoxyglucose (FDG) a standard uptake of approximately 60 [...] staging exam TECHNIQUE: Following IV injection of 86-esoswk-0-deoxyglucose (FDG) astandard uptake of approximately 60 minutes, [...] the bilateral level 2A, 2B andlevel 5 anthnoy stations and in the bilateral supraclavicular regions. [...] have questions please contactthe health child care worker that requested your imaging first. Electronically signed by: Billy Anderson MD, [facility]([phone]), at 03/20/2021 3:34 PM Alonzo Cevallos MD [...] pleura documented in this encounter Care Teams Tin Flopper Relationship Specialty Start Date End Date None None PCP - General 02/20/21 03/19/21 documented as of this encounter
--- OUTSIDE RECORDS SUMMARY | 2023-12-08 03:40 | XMS_ITS | Encounter Summary ---
Author Organization [facility] [place] [address] Care Team Providers Care Flooring Sales Manager Name Role Phone None Primary Care Provider Unavailabl e Encounter Details Date Type Department Care Team (Late st Contact Info) Description 02/26/2021 [place] [address] Oralia Null Social History Tobacco Use Types [...] PM EDT Office Visit Hematology/Oncology at [address] [phone] Chase Mckay MD [facility] DR [place] [address] documented as of this encounter Visit Diagnoses Not on filedocumented in this encounter Care Teams Flooring Sales Manager Relationship Specialty Start Date End Date None None PCP - General 02/20/21 03/19/21 documented as of this encounter
--- OUTSIDE RECORDS SUMMARY | 2023-12-08 03:40 | XMS_ITS | Encounter Summary ---
Author Organization [facility] [place] [address] Care Team Providers Care Relay Repairer Name Role Phone None Primary Care Provider Unavailabl e Reason for Visit * Reason Onset Date Comments Other 03/01/2021 chart review for Bronchoscopy Encounter Details Date Type Department Care Team (Late st Contact Info) Description 03/01/2021 Notes Only Pulmonology at [facility] [place] [address] Erma Rodriguez RN Other (chart review for [...] Erma Rodriguez RN Department of Pulmonary 5C, [facility] / Pager: [phone] documented in this encounter Plan of Treatment Upcoming Encounters Date Type Department Care Team (Late st Contact Info) Description 12/08/2023 3:30 PM EDT Office Visit Hematology/Oncology at [address] [phone] Chase Mckay MD [facility] DR HEMAT[place] [address] documented as of this encounter Visit Diagnoses Not on filedocumented in this encounter Care Teams Relay Repairer Relationship Specialty Start Date End Date None None PCP - General 02/20/21 03/19/21 documented as of this encounter
--- OUTSIDE RECORDS SUMMARY | 2023-12-08 03:40 | XMS_ITS | Encounter Summary ---
Author Organization [facility] [place] [address] Care Team Providers Care Computer Help Desk Specialist Name Role Phone None Primary Care Provider Unavailabl e Encounter Details Date Type Department Care Team (Late st Contact Info) Description 03/07/2021 [place] [address] Consuelo Monson Social History Tobacco Use Types [...] PM EDT Office Visit Hematology/Oncology at [address] [address] Chase Mckay MD [facility] DR HEMATOLOGY [place] [address] documented as of this encounter Visit Diagnoses Not on filedocumented in this encounter Care Teams Computer Help Desk Specialist Relationship Specialty Start Date End Date None None PCP - General 02/20/21 03/19/21 documented as of this encounter
--- OUTSIDE RECORDS SUMMARY | 2023-12-08 03:40 | XMS_ITS | Encounter Summary ---
[place] [address] Care Team Providers Care Infant Room Teacher Name Role Phone None Primary Care Provider Unavailabl e Reason for Visit * Diagnostic Test (Routine) - Closed Specialty Diagnoses / Procedures Referred By Etta t Referred To Contact Radiology Diagnoses Hydronephrosis, bilateral Bladder mass Acute kidney injury Procedures IR Nephrostomy Tube Placement Percutaneous Bilateral IR Nephrogram/Nephrostomy Tube Exchange Bilateral Jaycee Mckeon MD [address] [place] [address] [place] [address] Referral ID Status Reason Start Date Expiration Date V isits Requested Visits Authorized [id number] Closed Specialty Service Requested 02/20/2021 08/21/2022 1 1 Encounter Details Date Type Department Care Team (Latest Contact Info) Description 02/20/2021 11:47 AM EDT - 02/20/2021 11:59 PM EDT Hospital [place] [address] Jaycee Mckeon MD [address] [place], [place] [id number] Hydronephrosis, bilateral; Bladder mass; Acute kidney injury [...] Questions Answers Where will study be performed? [facility] Radiology [120] Reason for exam [...] catheter placement (Down and Back procedure from [facility], unit phone number: [phone]). 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 Patient presented to [facility] on 02/18/21 with fatigue and weakness, [...] nephrostomy catheter placement. Dr. Lukas Mckeon at [facility] was instructed to fax an order, [...] nephrostomy catheter placement. IR History: None at [facility] Antiplatelets: None. Anticoagulants: None. Recent Laboratories: ??? [...] PM EDT Office Visit Hematology/Oncology at [address] [address] Chase Mckay MD [facility] DR [place] [address] documented as of this encounter Procedures Procedure [...] catheter placement (Down and Back procedure from [facility], unit phone number: [phone]). 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 Patient presented to [facility] on 02/18/21 with fatigue and weakness, [...] nephrostomy catheter placement. Dr. Lukas Mckeon at [facility] was instructed to fax an order, [...] cm nephroureteral catheter was advanced, pigtails formed. ??Hr Clerk fluoroscopic image was obtained. ??Contrast was injected and fluoroscopic image was obtained. The catheter was sutured in place with 2-0 Prolene. ??A sterile dressing was applied. ?? The procedure was repeated on the right. ?? Medications: Fentanyl 175 mcg IV, Versed 4 mg IV, 1% Lidocaine <10 cc subcutaneous. Antibiotic Prophylaxis: None additional; patient received 2 gm Ceftriaxone prior to transfer to [facility]. Contrast: 80 cc Omnipaque 350, intra-urinary. Fluoroscopic [...] by the IR Nurse.?? Jaycee Mckeon MD [facility] IR ORDERABLES * (ABNORMAL) Urine culture Nephrostomy Urine; Flank pain (02/20/2021 12:49 PM EDT) Urine Culture 1,000-9,000 cfu/ml Beta-hemolytic Streptococcus, Group C or G : Susceptibility testing not routinely performed for Coagulase Negative Staphylococcus species and other Gram Positive organisms from urine. 10,000-49,000 cfu/ml Normal mucosal amarilys (A) [facility] Organism Beta-hemolytic Streptococcus, Group C or G(A) [facility] Nephrostomy Urine 02/20/2021 12:49 PM EDT 02/20/2021 1:40 PM EDT Comment:Left Narrative Resulting Agency Comment Spec In Lab Jaycee Mckeon MD MICROBIOLOGY - GENER AL ORDERABLES Performing Organization Address [facility] de Phone Number [facility] [place] [address] * Urine culture Nephrostomy Urine; Flank pain (02/20/2021 12:42 PM EDT) Urine Culture 10,000-49,0 00 cfu/ml Normal mucosal amarilys [facility] Nephrostomy Urine 02/20/2021 12:42 PM EDT 02/20/2021 1:39 PM EDT Comment:Right Narrative Resulting Agency Comment Spec In Lab Jaycee Mckeon MD MICROBIOLOGY - GENER AL ORDERABLES Performing Organization Address [facility] [address]/[facility] de Phone Number [facility] [place] [address] documented in this encounter Visit Diagnoses Diagnosis Hydronephrosis, bilateral Hydronephrosis Bladder mass Other specified disorders of bladder Acute kidney injury Acute kidney failure, unspecified Primary malignant neoplasm of left lower [...] PRN, Starting on 02/20/21 at 1201, Until 02/20/21 at 1346, Pain, per unit protocol, - [...] 1-400 mL, Other, ONCE, 1 dose, On Fri02/20/21 at 1230, For intra-procedural use by proceduralist., Angio/IR (Intra-Procedure), Routine Given 02/20/2021 12:30 PM EDT 30 mLs midazolam (pf) (Versed) (1 mg/mL) multi-dose injection 0.5-1 mg 0.5-1 mg, Intravenous, EVERY 3 MIN PRN, Starting on Fri02/20/21 at 1201, Until Fri02/20/21 at 1346, Sleep, [...] Intravenous, 2 TIMES DAILY, First dose on Fri02/20/21 at 1230, Until Discontinued, Routine Given 02/20/2021 12:15 PM EDT 5 mLs sodium chloride 0.9% infusion 1,000 mL, at 100 mL/hr, Intravenous, CONTINUOUS, Starting on Fri02/20/21 at 1230, Until Fri02/20/21 at 1346, Angio/IR (Day of Procedure) New Bag 02/20/2021 12:15 PM EDT 1,000 mLs 100 mL/hr documented in this encounter Care Teams Infant Room Teacher Relationship Specialty Start Date End Date None None PCP - General 02/20/21 03/19/21 documented as of this encounter
--- OUTSIDE RECORDS SUMMARY | 2023-12-08 03:40 | XMS_ITS | Encounter Summary ---
Author Organization [facility] [place] [address] Care Team Providers Care Staff Research Associate Name Role Phone None Primary Care Provider Unavailabl e Encounter Details Date Type Department Care Team (Late st Contact Info) Description 03/01/2021 Telephone [place] [address] Oralia Null Social History Tobacco Use Types [...] PM EDT Office Visit Hematology/Oncology at [address] [phone] Chase Mckay MD [facility] DR [place] [address] documented as of this encounter Visit Diagnoses Not on filedocumented in this encounter Care Teams Staff Research Associate Relationship Specialty Start Date End Date None None PCP - General 02/20/21 03/19/21 documented as of this encounter
--- OUTSIDE RECORDS SUMMARY | 2023-12-08 03:40 | XMS_ITS | Encounter Summary ---
Author Organization [facility] [place] [address] Care Team Providers Care Supervisor Joiners Name Role Phone Unavailable Primary Care Provider Unavailabl e Encounter Details Date Type Department Care Team (Late st Contact Info) Description 02/19/2021 Notes [place] [address] Jean Carlos Fenton, [facility] [place] [address] Social History Tobacco Use Types Packs/Day Years [...] catheter placement (Down and Back procedure from [facility], unit phone number: [phone]). 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 Patient presented to [facility] on 02/18/21 with fatigue and weakness, [...] nephrostomy catheter placement. Dr. Lukas Mckeon at [facility] was instructed to fax an order, [...] nephrostomy catheter placement. IR History: None [place] [facility] Antiplatelets: None. Anticoagulants: None. Recent Laboratories: ??? [...] PM EDT Office Visit Hematology/Oncology at [address] [address] Chase Mckay MD [facility] DR [place] [address] documented as of this encounter Visit Diagnoses [...]
--- OUTSIDE RECORDS SUMMARY | 2023-12-08 03:40 | XMS_ITS | Encounter Summary ---
Author Organization [facility] [place] [address] Care Team Providers Care Date Puller Name Role Phone Unavailable Primary Care Provider Unavailabl e Encounter Details Date Type Department Care Team (Late st Contact Info) Description 02/18/2021 12:05 AM EDT Ancillary Procedure [place] [address] Jaycee Mckeon MD [address] [place] [address] Social History Tobacco Use Types Packs/Day Years [...] PM EDT Office Visit Hematology/Oncology at [address] [phone] Chase Mckay MD [facility] DR HEMATOLOGY [place] [address] documented as of this encounter Procedures Procedure [...] FILM LIBRARY ORD ERABLES Performing Organization Address City/State/[facility] Co de Phone Number [facility] [place], [place] documented in this encounter Visit Diagnoses Not on filedocumented in this encounter
--- OUTSIDE RECORDS SUMMARY | 2023-12-08 03:40 | XMS_ITS | Encounter Summary ---
Author Organization [facility] [place] [address] Care Team Providers Care Spanish Tutor Name Role Phone Unavailable Primary Care Provider Unavailabl e Encounter Details Date Type Department Care Team (Late Contact Info) Description 02/18/2021 Ancillary Procedure [place] [address] Jaycee Mckeon MD [address] [place] [address] Social History Tobacco Use Types Packs/Day Years [...] PM EDT Office Visit Hematology/Oncology at [address] [phone] Chase Mckay MD [facility] [address] [place] [address] documented as of this encounter Procedures Procedure Name Priority Date/Time Associated Diagnosis Comments FILM LIBRARY STORAGE ONLY CT HEAD Routine 02/18/2021 12:00 AM EDT documented in this encounter Results * Film Library- Storage Only CT Head (02/18/2021 12:00 AM EDT) Narrative [facility] - 02/19/2021 4:27 PM EDT This exam is auto-finalizing. It's purpose is for storage only. Jaycee Mckeon MD IMG FILM LIBRARY ORD ERABLES Performing Organization Address City/State/[facility] Co de Phone Number [facility] [place], [place] documented in this encounter Visit Diagnoses Not on filedocumented in this encounter
[2023-12-08] MEDS: Normal Saline Flush 10 ML SYR IVP (14:48)
[2023-12-08 14:50] LABS: Abs Immature Grans 0.03 10^3/uL (0.0-0.06); Absolute Basophil Count 0.04 10^3/uL (0.0-0.2); Absolute Eosinophil Count 0.49 10^3/uL (0.0-0.7); Absolute Lymphocyte Count 1.35 10^3/uL (1.2-3.4); Absolute Monocyte Count 0.94 10^3/uL (0.1-0.8); Absolute Neutrophil Count 5.93 10^3/uL (1.2-6.7); Basophils % 0.5 %; Eosinophils % 5.6 %; HCT 36.2 % (36.0-46.0); HGB 11.5 g/dL (11.2-15.7); Immature Grans % 0.3 %; Lymphocytes % 15.4 %; MCH 24.7 pg (27.0-33.0); MCHC 31.8 % (32.0-36.0); MCV 78 fL (80-95); MPV 9.8 fL (8.0-11.0); Monocytes % 10.7 %; Neutrophils % 67.5 %; Platelet Count 471 10^3/uL (130-400); RBC 4.65 10^6/uL (3.93-5.22); RDW 17.6 % (11.7-14.6); RDW-SD 49.6 fL; WBC 8.78 10^3/uL (4.4-10.8)
[2023-12-08 15:05] LABS: ALT 15 U/L (14-59); AST 13 U/L (15-37); Albumin 3.3 g/dL (3.4-5.0); Alkaline Phosphatase 86 U/L (46-116); Anion Gap 8.8 mmol/L (3-11); BUN 29 mg/dL (7-18); CO2 25.2 mmol/L (21.0-32.0); CREATININE 2.2 mg/dL (0.55-1.02); Calcium 8.6 mg/dL (8.5-10.1); Chloride 106 mmol/L (98-107); Estimated GFR 23.24 (mL/min/1.73m2); Glucose 103 mg/dL (74-106); Magnesium 2.2 mg/dL (1.8-2.4); Potassium 4.2 mmol/L (3.5-5.1); Sodium 140 mmol/L (136-145); Total Protein 8.2 g/dL (6.4-8.2)
== END 2023-12-27 23:59 | disposition home or self-care (01) ==
LOC: INF 03:12
PROVIDERS: PCP Nurse Practitioner Family; Visit Provider Internal Medicine Medical Oncology
DX: C34.32 Malignant neoplasm of lower lobe, left bronchus or lung (principal); C78.2 Secondary malignant neoplasm of pleura; C79.10 Secondary malignant neoplasm of unspecified urinary organs; Z45.2 Encounter for adjustment and management of vascular access device
CPT/HCPCS: 36591; 80053; 83735; 85025

== ENCOUNTER 2024-01-15 02:54 | Outpatient (RCR) | payer MEDICARE, SELFPAY ==
[2024-01-05 14:09] LABS: Abs Immature Grans 0.05 10^3/uL (0.0-0.06); Absolute Basophil Count 0.04 10^3/uL (0.0-0.2); Absolute Eosinophil Count 0.53 10^3/uL (0.0-0.7); Absolute Lymphocyte Count 1.36 10^3/uL (1.2-3.4); Absolute Neutrophil Count 6.42 10^3/uL (1.2-6.7); Basophils % 0.4 %; Eosinophils % 5.7 %; HCT 34.7 % (36.0-46.0); HGB 11.3 g/dL (11.2-15.7); Immature Grans % 0.5 %; Lymphocytes % 14.6 %; MCH 25.5 pg (27.0-33.0); MCHC 32.6 % (32.0-36.0); MCV 78 fL (80-95); MPV 9.6 fL (8.0-11.0); Monocytes % 9.7 %; Neutrophils % 69.1 %; Platelet Count 439 10^3/uL (130-400); RBC 4.43 10^6/uL (3.93-5.22); RDW 18.8 % (11.7-14.6); RDW-SD 53.2 fL
[2024-01-05] MEDS: Normal Saline Flush 10 ML SYR IVP (14:19)
[2024-01-05 14:29] LABS: ALT 14 U/L (14-59); AST 15 U/L (15-37); Albumin 3.2 g/dL (3.4-5.0); Alkaline Phosphatase 96 U/L (46-116); Anion Gap 10.1 mmol/L (3-11); BUN 23 mg/dL (7-18); Bilirubin, Total 0.73 mg/dL (0.2-1.0); CO2 21.9 mmol/L (21.0-32.0); CREATININE 2.3 mg/dL (0.55-1.02); Calcium 8.5 mg/dL (8.5-10.1); Chloride 107 mmol/L (98-107); Estimated GFR 22.03 (mL/min/1.73m2); Glucose 127 mg/dL (74-106); Sodium 139 mmol/L (136-145); Total Protein 7.8 g/dL (6.4-8.2)
[2024-01-05 14:31] LABS: Potassium 2.8 mmol/L (3.5-5.1)
[2024-01-08] MEDS: Normal Saline Flush 10 ML SYR IVP (10:34)
[2024-01-08 12:37] LABS: ALT 12 U/L (14-59); AST 14 U/L (15-37); Albumin 3.3 g/dL (3.4-5.0); Alkaline Phosphatase 99 U/L (46-116); Anion Gap 8.9 mmol/L (3-11); BUN 24 mg/dL (7-18); Bilirubin, Total 0.76 mg/dL (0.2-1.0); CO2 22.1 mmol/L (21.0-32.0); CREATININE 2.2 mg/dL (0.55-1.02); Chloride 110 mmol/L (98-107); Estimated GFR 23.24 (mL/min/1.73m2); Glucose 133 mg/dL (74-106); Sodium 141 mmol/L (136-145); Total Protein 8.1 g/dL (6.4-8.2)
[2024-01-15 12:58] LABS: ALT 13 U/L (14-59); AST 14 U/L (15-37); Alkaline Phosphatase 99 U/L (46-116); Anion Gap 11.4 mmol/L (3-11); BUN 37 mg/dL (7-18); Bilirubin, Total 0.56 mg/dL (0.2-1.0); CO2 20.6 mmol/L (21.0-32.0); Calcium 7.7 mg/dL (8.5-10.1); Chloride 109 mmol/L (98-107); Estimated GFR 26.05 (mL/min/1.73m2); Glucose 97 mg/dL (74-106); Potassium 4.2 mmol/L (3.5-5.1); Sodium 141 mmol/L (136-145); Total Protein 7.2 g/dL (6.4-8.2)
[2024-01-15] MEDS: Normal Saline Flush 10 ML SYR IVP (13:45)
== END 2024-01-26 23:59 | disposition home or self-care (01) ==
LOC: INF 02:54
PROVIDERS: PCP Nurse Practitioner Family; Visit Provider Internal Medicine Medical Oncology
DX: C34.32 Malignant neoplasm of lower lobe, left bronchus or lung (principal); C79.10 Secondary malignant neoplasm of unspecified urinary organs; Z45.2 Encounter for adjustment and management of vascular access device
CPT/HCPCS: 36415; 36591; 80053; 96523; 83735; 85025

== ENCOUNTER 2024-02-04 13:39 | Outpatient (RCR) | payer MEDICARE, SELFPAY ==
[2024-02-02 13:10] LABS: Abs Immature Grans 0.08 10^3/uL (0.0-0.06); Absolute Basophil Count 0.03 10^3/uL (0.0-0.2); Absolute Eosinophil Count 0.46 10^3/uL (0.0-0.7); Absolute Lymphocyte Count 1.36 10^3/uL (1.2-3.4); Absolute Monocyte Count 0.74 10^3/uL (0.1-0.8); Absolute Neutrophil Count 7.74 10^3/uL (1.2-6.7); Basophils % 0.3 %; Eosinophils % 4.4 %; HCT 37.7 % (36.0-46.0); Immature Grans % 0.8 %; Lymphocytes % 13.1 %; MCH 26.1 pg (27.0-33.0); MCHC 31.8 % (32.0-36.0); MCV 82 fL (80-95); MPV 9.7 fL (8.0-11.0); Monocytes % 7.1 %; Neutrophils % 74.3 %; Platelet Count 398 10^3/uL (130-400); RDW 17.6 % (11.7-14.6); RDW-SD 51.5 fL; WBC 10.41 10^3/uL (4.4-10.8)
[2024-02-02] MEDS: Normal Saline Flush 10 ML SYR IVP (13:11)
[2024-02-02 13:39] LABS: ALT 14 U/L (14-59); AST 14 U/L (15-37); Albumin 3.4 g/dL (3.4-5.0); Alkaline Phosphatase 104 U/L (46-116); Anion Gap 11.8 mmol/L (3-11); BUN 34 mg/dL (7-18); Bilirubin, Total 0.64 mg/dL (0.2-1.0); CO2 22.2 mmol/L (21.0-32.0); CREATININE 2.2 mg/dL (0.55-1.02); Calcium 8.7 mg/dL (8.5-10.1); Chloride 110 mmol/L (98-107); Estimated GFR 23.24 (mL/min/1.73m2); Glucose 121 mg/dL (74-106); Magnesium 2.3 mg/dL (1.8-2.4); Potassium 4.3 mmol/L (3.5-5.1); Sodium 144 mmol/L (136-145); Total Protein 8.3 g/dL (6.4-8.2)
== END 2024-02-26 23:59 | disposition home or self-care (01) ==
LOC: INF 13:39
PROVIDERS: PCP Nurse Practitioner Family; Visit Provider Internal Medicine Medical Oncology
DX: C34.32 Malignant neoplasm of lower lobe, left bronchus or lung (principal); C78.2 Secondary malignant neoplasm of pleura; C79.10 Secondary malignant neoplasm of unspecified urinary organs; Z45.2 Encounter for adjustment and management of vascular access device
CPT/HCPCS: 36591; 80053; 83735; 85025

== ENCOUNTER 2024-03-01 02:39 | Outpatient (RCR) | payer MEDICARE, SELFPAY ==
[2024-03-01] MEDS: Normal Saline Flush 10 ML SYR IVP (13:04)
[2024-03-01 13:07] LABS: Absolute Basophil Count 0.05 10^3/uL (0.0-0.2); Absolute Eosinophil Count 0.59 10^3/uL (0.0-0.7); Absolute Lymphocyte Count 1.09 10^3/uL (1.2-3.4); Absolute Monocyte Count 0.83 10^3/uL (0.1-0.8); Absolute Neutrophil Count 7.81 10^3/uL (1.2-6.7); Basophils % 0.5 %; Eosinophils % 5.6 %; HCT 35.6 % (36.0-46.0); HGB 11.5 g/dL (11.2-15.7); Lymphocytes % 10.4 %; MCH 26.1 pg (27.0-33.0); MCHC 32.3 % (32.0-36.0); MCV 81 fL (80-95); MPV 8.8 fL (8.0-11.0); Monocytes % 7.9 %; Neutrophils % 74.6 %; Platelet Count 486 10^3/uL (130-400); RDW 15.9 % (11.7-14.6); RDW-SD 46.9 fL; WBC 10.47 10^3/uL (4.4-10.8)
[2024-03-01 14:08] LABS: ALT 17 U/L (14-59); AST 13 U/L (15-37); Alkaline Phosphatase 148 U/L (46-116); Anion Gap 10.6 mmol/L (3-11); BUN 26 mg/dL (7-18); Bilirubin, Total 0.83 mg/dL (0.2-1.0); CO2 19.4 mmol/L (21.0-32.0); CREATININE 1.8 mg/dL (0.55-1.02); Calcium 8.8 mg/dL (8.5-10.1); Chloride 114 mmol/L (98-107); Estimated GFR 29.57 (mL/min/1.73m2); Glucose 119 mg/dL (74-106); Magnesium 2.4 mg/dL (1.8-2.4); Potassium 3.6 mmol/L (3.5-5.1); Sodium 144 mmol/L (136-145); Total Protein 8.2 g/dL (6.4-8.2)
== END 2024-03-27 23:59 | disposition home or self-care (01) ==
LOC: INF 02:39
PROVIDERS: PCP Nurse Practitioner Family; Visit Provider Internal Medicine Medical Oncology
DX: C34.32 Malignant neoplasm of lower lobe, left bronchus or lung (principal); C78.2 Secondary malignant neoplasm of pleura; C79.10 Secondary malignant neoplasm of unspecified urinary organs; Z45.2 Encounter for adjustment and management of vascular access device
CPT/HCPCS: 36591; 80053; 83735; 85025

== ENCOUNTER 2024-03-29 03:18 | Outpatient (RCR) | payer MEDICARE, SELFPAY ==
[2024-03-29] MEDS: Normal Saline Flush 10 ML SYR IVP (13:32)
[2024-03-29 13:55] LABS: Abs Immature Grans 0.04 10^3/uL (0.0-0.06); Absolute Basophil Count 0.05 10^3/uL (0.0-0.2); Absolute Lymphocyte Count 1.25 10^3/uL (1.2-3.4); Absolute Monocyte Count 1.03 10^3/uL (0.1-0.8); Absolute Neutrophil Count 6.47 10^3/uL (1.2-6.7); Basophils % 0.5 %; Eosinophils % 5.4 %; HCT 38.7 % (36.0-46.0); HGB 12.2 g/dL (11.2-15.7); Immature Grans % 0.4 %; Lymphocytes % 13.4 %; MCH 26.5 pg (27.0-33.0); MCHC 31.5 % (32.0-36.0); MCV 84 fL (80-95); MPV 9.7 fL (8.0-11.0); Neutrophils % 69.3 %; Platelet Count 418 10^3/uL (130-400); RBC 4.61 10^6/uL (3.93-5.22); RDW 15.3 % (11.7-14.6); RDW-SD 46.3 fL; WBC 9.34 10^3/uL (4.4-10.8)
[2024-03-29 14:13] LABS: ALT 16 U/L (14-59); AST 10 U/L (15-37); Albumin 3.5 g/dL (3.4-5.0); Alkaline Phosphatase 137 U/L (46-116); Anion Gap 12.3 mmol/L (3-11); BUN 22 mg/dL (7-18); Bilirubin, Total 0.54 mg/dL (0.2-1.0); CO2 21.7 mmol/L (21.0-32.0); CREATININE 2.3 mg/dL (0.55-1.02); Calcium 8.7 mg/dL (8.5-10.1); Chloride 110 mmol/L (98-107); Estimated GFR 22.03 (mL/min/1.73m2); Glucose 78 mg/dL (74-106); Magnesium 2.1 mg/dL (1.8-2.4); Potassium 3.5 mmol/L (3.5-5.1); Sodium 144 mmol/L (136-145); Total Protein 8.5 g/dL (6.4-8.2)
== END 2024-04-27 23:59 | disposition home or self-care (01) ==
LOC: INF 03:18
PROVIDERS: PCP Nurse Practitioner Family; Visit Provider Internal Medicine Medical Oncology
DX: C34.32 Malignant neoplasm of lower lobe, left bronchus or lung (principal); C78.2 Secondary malignant neoplasm of pleura; C79.10 Secondary malignant neoplasm of unspecified urinary organs; Z45.2 Encounter for adjustment and management of vascular access device
CPT/HCPCS: 36591; 80053; 83735; 85025

== ENCOUNTER 2024-05-24 02:45 | Outpatient (RCR) | payer MEDICARE, SELFPAY ==
[2024-05-24] MEDS: Normal Saline Flush 10 ML SYR IVP (09:52)
[2024-05-24 10:24] LABS: Abs Immature Grans 0.07 10^3/uL (0.0-0.06); Absolute Basophil Count 0.07 10^3/uL (0.0-0.2); Absolute Eosinophil Count 0.56 10^3/uL (0.0-0.7); Absolute Monocyte Count 1.25 10^3/uL (0.1-0.8); Absolute Neutrophil Count 7.59 10^3/uL (1.2-6.7); Basophils % 0.7 %; Eosinophils % 5.2 %; HCT 36.9 % (36.0-46.0); HGB 11.8 g/dL (11.2-15.7); Immature Grans % 0.7 %; Lymphocytes % 11.2 %; MCH 26.4 pg (27.0-33.0); MCV 83 fL (80-95); MPV 9.9 fL (8.0-11.0); Monocytes % 11.6 %; Neutrophils % 70.6 %; Platelet Count 412 10^3/uL (130-400); RBC 4.47 10^6/uL (3.93-5.22); RDW 16.1 % (11.7-14.6); RDW-SD 48.9 fL; WBC 10.74 10^3/uL (4.4-10.8)
[2024-05-24 10:40] LABS: ALT 18 U/L (14-59); AST 12 U/L (15-37); Albumin 3.2 g/dL (3.4-5.0); Alkaline Phosphatase 94 U/L (46-116); Anion Gap 8.5 mmol/L (3-11); BUN 38 mg/dL (7-18); Bilirubin, Total 0.68 mg/dL (0.2-1.0); CO2 22.5 mmol/L (21.0-32.0); CREATININE 2.4 mg/dL (0.55-1.02); Calcium 8.8 mg/dL (8.5-10.1); Chloride 107 mmol/L (98-107); Estimated GFR 20.93 (mL/min/1.73m2); Glucose 93 mg/dL (74-106); Potassium 4.6 mmol/L (3.5-5.1); Sodium 138 mmol/L (136-145); Total Protein 8.1 g/dL (6.4-8.2)
== END 2024-05-28 23:59 | disposition home or self-care (01) ==
LOC: INF 02:45
PROVIDERS: PCP Nurse Practitioner Family; Visit Provider Internal Medicine Medical Oncology
DX: C34.32 Malignant neoplasm of lower lobe, left bronchus or lung (principal); C78.2 Secondary malignant neoplasm of pleura; C79.10 Secondary malignant neoplasm of unspecified urinary organs
CPT/HCPCS: 36591; 80053; 83735; 85025

== ENCOUNTER 2024-06-21 02:26 | Outpatient (RCR) | payer MEDICARE, SELFPAY ==
[2024-06-21] MEDS: Normal Saline Flush 10 ML SYR IVP (09:17)
[2024-06-21 09:25] LABS: Abs Immature Grans 0.13 10^3/uL (0.0-0.06); Absolute Eosinophil Count 0.72 10^3/uL (0.0-0.7); Absolute Lymphocyte Count 1.09 10^3/uL (1.2-3.4); Absolute Monocyte Count 1.09 10^3/uL (0.1-0.8); Basophils % 0.5 %; Eosinophils % 5.6 %; HCT 35.8 % (36.0-46.0); HGB 11.3 g/dL (11.2-15.7); Lymphocytes % 8.4 %; MCH 25.7 pg (27.0-33.0); MCHC 31.6 % (32.0-36.0); MCV 81 fL (80-95); MPV 9.2 fL (8.0-11.0); Monocytes % 8.4 %; Neutrophils % 76.1 %; Platelet Count 446 10^3/uL (130-400); RDW 16.7 % (11.7-14.6); RDW-SD 49.1 fL; WBC 12.92 10^3/uL (4.4-10.8)
[2024-06-21 09:26] LABS: Absolute Basophil Count 0.06 10^3/uL (0.0-0.2); Absolute Neutrophil Count 9.83 10^3/uL (1.2-6.7)
[2024-06-21 09:49] LABS: ALT 20 U/L (14-59); AST 14 U/L (15-37); Albumin 3.1 g/dL (3.4-5.0); Alkaline Phosphatase 116 U/L (46-116); Anion Gap 10.6 mmol/L (3-11); BUN 33 mg/dL (7-18); CO2 23.4 mmol/L (21.0-32.0); CREATININE 2.1 mg/dL (0.55-1.02); Calcium 8.8 mg/dL (8.5-10.1); Chloride 106 mmol/L (98-107); Estimated GFR 24.57 (mL/min/1.73m2); FREE T4 0.91 ng/dL (0.76-1.46); Glucose 102 mg/dL (74-106); Potassium 4.6 mmol/L (3.5-5.1); Sodium 140 mmol/L (136-145); TSH 4.36 uIU/mL (0.36-3.74); Total Protein 8.2 g/dL (6.4-8.2)
== END 2024-06-25 23:59 | disposition home or self-care (01) ==
LOC: INF 02:26
PROVIDERS: Nurse Practitioner Family; PCP Nurse Practitioner Family; Visit Provider Internal Medicine Medical Oncology
DX: C34.32 Malignant neoplasm of lower lobe, left bronchus or lung (principal); C79.10 Secondary malignant neoplasm of unspecified urinary organs; C78.2 Secondary malignant neoplasm of pleura; Z79.899 Other long term (current) drug therapy
CPT/HCPCS: 36591; 80053; 83735; 84439; 84443; 85025

== ENCOUNTER 2024-06-21 10:53 | Outpatient (REF) | payer MEDICARE, SELFPAY ==
[2024-06-21 11:06] LABS: Bilirubin Negative (Negative); Blood Moderate (Negative); Clarity Cloudy (Clear); Glucose Negative (Negative); Ketones Negative (Negative); Leukocyte Esterase Moderate (Negative); Nitrite Positive (Negative); Urobilinogen 0.2 mg/dL (Up to 0.2); pH 5.5 (5-8)
[2024-06-21 11:09] LABS: Bilirubin Small (Negative); Blood Moderate (Negative); Clarity Cloudy (Clear); Glucose Negative (Negative); Ketones Negative (Negative); Leukocyte Esterase Small (Negative); Nitrite Negative (Negative); Specific Gravity >= 1.030 (1.005-1.025); Urobilinogen 0.2 mg/dL (Up to 0.2); pH 5.5 (5-8)
[2024-06-21 11:34] LABS: Bacteria Moderate HPF (Negative); C & S Indicated? No/Sq. Contamination; C & S Indicated? Yes; Casts 3-5 Fine Granular LPF (Negative); Crystals Negative HPF (Negative); Epithelial Cells Few HPF (Negative); Epithelial Cells Moderate HPF (Negative); Mucus Negative (Negative); WBC >50 HPF (0-5)
== END 2024-06-21 10:54 | disposition home or self-care (01) ==
LOC: LBN 10:53
PROVIDERS: PCP Nurse Practitioner Family; Visit Provider Nurse Practitioner Adult Health
DX: C34.32 Malignant neoplasm of lower lobe, left bronchus or lung (principal); C79.10 Secondary malignant neoplasm of unspecified urinary organs; B96.89 Other specified bacterial agents as the cause of diseases classified elsewhere
CPT/HCPCS: 81003; 81015; 87086